=== PATIENT | male | born 1955 | race Caucasian/White ===

== ENCOUNTER 2018-07-01 09:54 | Emergency (ER) | payer BC, SELFPAY ==
[2018-07-01 09:55] VITALS: BP 122/86; PULSE 74; RESP 16; TEMP 36.8; O2SAT 92; BMI 31.6
--- NOTE | 2018-07-01 10:09 | RAD_ITS ---
STUDY: X-RAY - LEFT HAND REASON FOR EXAM: Male, 62 years old. Cat bite, swelling and redness. TECHNIQUE: 3 view(s) of the hand. COMPARISON: None. FINDINGS: Normal radiocarpal articulation. Normal distal radioulnar joint. Normal visualized carpal bones. Normal carpal articulations Normal carpometacarpal articulation of the thumb. Normal second through fifth carpometacarpal joints. Normal metacarpi. Normal metacarpophalangeal joint of the thumb. Normal interphalangeal joint of the thumb. Normal proximal and distal phalanges of the thumb. Normal metacarpophalangeal joints of the second through fifth fingers. Normal proximal and distal interphalangeal joints of the second through fifth fingers. Normal phalanges of the second through fifth fingers. There is mild generalized soft tissue swelling. No radiopaque foreign body. No demonstrated fracture. RAD/Hand Min 3 Views IMPRESSION: Mild generalized soft tissue swelling of the left hand. No acute osseous abnormality. Electronically Signed: Júnior Velasco MD at 10:36 EDT , Service support ,
--- NOTE | 2018-07-01 10:12 | ED.DCSUM_ITS ---
- ER Visit Summary Date of Service: 07/01/18 Chief Complaint: Cat bite History of Present Illness: The patient is a 62 M who had a cat bite to the left hand. Happened last night. Today he was in his hand was swollen and red. The cat has been vaccinated. He is unsure of his last tetanus shot. Physical Examination: Vital signs reviewed. Left hand exam reveals a puncture wound on the left dorsal hand. He does have erythema located in the area. He has full range of motion with minimal pain. Test Results: Hand x-ray reveals no foreign bodies Emergency Department Course and Treatment: Patient's tetanus was updated. X- rays were obtained to make sure there is no Tooth that was retained. This was negative. I will send him home on doxycycline due to a penicillin allergy. He will follow-up with his PCP Treatment Plan: [] Disposition: Discharge Impression: Cat bite, left hand This note was generated with [employer] dictation software. It may contain incorrect words, spelling, and punctuation that were not noted in review of the chart prior to signing ED Disposition - Plan for ED Patient: Chief Complaint: Wound Referrals: Tommy Markham MD [Primary Care Provider] -
--- NOTE | 2018-07-01 10:32 | ED.DEP ---
ED Disposition - Plan for ED Patient: Disposition: Home or Assisted Living Chief Complaint: Wound Instructions: ED Bite Cat Prescriptions: Doxycycline Monohydrate 100 mg PO BID #20 cap Referrals: Tommy Markham MD [Primary Care Provider] -
== END 2018-07-01 10:49 | disposition home or self-care (01) ==
PROVIDERS: Emergency Provider Emergency Medicine; Family Provider Family Medicine; PCP Family Medicine
DX: S61.432A Puncture wound without foreign body of left hand, initial encounter (principal); W55.01XA Bitten by cat, initial encounter; Y93.9 Activity, unspecified; Y92.9 Unspecified place or not applicable; Y99.9 Unspecified external cause status; Z88.0 Allergy status to penicillin; Z23 Encounter for immunization; E11.9 Type 2 diabetes mellitus without complications; Z86.73 Personal history of transient ischemic attack (TIA), and cerebral infarction without residual deficits; Z72.0 Tobacco use; G47.33 Obstructive sleep apnea (adult) (pediatric); Z79.4 Long term (current) use of insulin
CPT/HCPCS: 73130; 99282

== ENCOUNTER 2021-01-22 12:30 | Outpatient (RCR) | payer BC, SELFPAY ==
[2021-01-22] MEDS: COVID-19 VACC, MRNA(PFIZER)/PF 30 MCG/0.3 ML SYRINGE IM (18:32)
[2021-02-12] MEDS: COVID-19 VACC, MRNA(PFIZER)/PF 30 MCG/0.3 ML SYRINGE IM (18:09)
== END 2021-01-22 23:59 ==
LOC: IMMUN 12:30
PROVIDERS: PCP Family Medicine; Visit Provider Family Medicine
DX: Z23 Encounter for immunization (principal)
CPT/HCPCS: 0001A; 0002A; 91300

== ENCOUNTER → 2022-09-09 | Outpatient (CLI) | payer MEDICARE, OTHER, SELFPAY ==
--- NOTE | 2022-09-09 11:45 | STRESSREP_ITS ---
Stress Test Report Date: 09/09/2022 Procedure: Exercise tolerance test Indications: Chest pain Consent: Per the patient Procedure: The patient exercised on a Martin protocol for 2 minutes and 19 seconds achieving a peak heart rate of 133 bpm (87% predicted maximal heart rate) with a peak blood pressure 164/74 mmHg and a peak MET capacity of approximately 4.6 MET's. The baseline ECG demonstrated normal sinus rhythm. The peak exercise ECG demonstrated no ischemic change. There were no cardiac dysrhythmias pretest, during exercise, or recovery. The functional capacity was considered subpar, inadequate. The patient had no complaints of chest discomfort during exercise or recovery. The examination was discontinued secondary to target heart rate being achieved and complaints of dyspnea and inability to carry on the treadmill. Impression: 1. Technically adequate (percent predicted maximal heart rate greater than 85%) exercise tolerance test 2. Peak exercise ECG with no ischemic change. 3. Reduced functional capacity. This note was generated with [employer] software. It may contain incorrect words, spelling, and punctuation that were not noted in checking the note before signing.
== END | disposition home or self-care (01) ==
PROVIDERS: PCP Family Medicine; Visit Provider Family Medicine
DX: R06.02 Shortness of breath (principal)
CPT/HCPCS: 93017

== ENCOUNTER → 2023-03-01 | Outpatient (CLI) | payer MEDICARE, OTHER, SELFPAY ==
[2023-03-01 11:23] LABS: Hematocrit 49.7 % (40-54); Hemoglobin 16.2 g/dL (13.0-16.5); Mean Corp Hgb Conc 32.6 g/dL (32-36); Mean Corpuscular Hgb 29.7 pg (27.0-32.0); Mean Platelet Vol. 11.6 fl (6.2-12.0); Platelet Count 301 K/mm3 (150-450); RBC Distribution Width CV 13.1 % (11.6-14.6); RBC Distribution Width SD 43.5 fl (35.1-43.9); Red Blood Count 5.46 M/mm3 (4.6-6.2); White Blood Count 13.1 K/mm3 (4.4-11.0)
[2023-03-01 11:46] LABS: Anion Gap 3 (5-15); BUN 17 mg/dL (7-18); BUN/Creat Ratio 13.1 RATIO (10-20); Calcium,Total 9.1 mg/dL (8.5-10.1); Chloride 104 mmol/L (98-107); EST Glomerular Filtration Rate 58 mL/min (>60); Est Glom Filt Rate - Afr Amer 71 mL/min (>60); Glucose 146 mg/dL (74-106); Potassium 4.3 mmol/L (3.5-5.1); Sodium Level 135 mmol/L (136-145)
== END | disposition home or self-care (01) ==
LOC: PSN 10:47
PROVIDERS: PCP Family Medicine; Referring Provider Otolaryngology; Visit Provider Otolaryngology
DX: H72.01 Central perforation of tympanic membrane, right ear (principal)
CPT/HCPCS: 36415; 80048; 85027; 93005

== ENCOUNTER → 2023-03-31 | Outpatient (CLI) | payer MEDICARE, OTHER, SELFPAY ==
[2023-03-31 12:01] LABS: PSA,Total - Annual Screen 7.76 ng/mL (0.00-4.00)
== END | disposition home or self-care (01) ==
LOC: LAB 10:56
PROVIDERS: PCP Family Medicine; Referring Provider Registered Nurse; Visit Provider Registered Nurse
DX: Z12.5 Encounter for screening for malignant neoplasm of prostate (principal)
CPT/HCPCS: 36415; 84153; G0103

== ENCOUNTER 2023-09-05 19:54 | Observation (INO) | payer MEDICARE, OTHER, SELFPAY ==
[2023-09-05 19:55] VITALS: BP 158/72; PULSE 81; RESP 16; TEMP 36; O2SAT 100; BMI 30.5
--- NOTE | 2023-09-05 20:13 | CT_ITS ---
STUDY: CT BRAIN WITHOUT CONTRAST REASON FOR EXAM: Male, 68 years old. CVA RADIATION DOSAGE (If Supplied By Facility): CTDIvol = ( 44.99 ) mGy, DLP = ( 880.47 ) mGycm TECHNIQUE: Transaxial CT imaging of the brain was performed without administration of intravenous contrast material. Individualized dose optimization techniques were used for this CT. COMPARISON: MRI February 28, 2015. FINDINGS: Normal soft tissue structures. Normal calvarium. There is moderate cerebral atrophy with widening of the extra-axial spaces and ventricular dilatation. There are areas of decreased attenuation within the white matter tracts of the supratentorial brain, consistent with microvascular disease changes. There are lacunar infarcts of the basal ganglia. Normal brainstem. Normal cerebellum. There is no intracranial hemorrhage. There are no findings of an acute ischemic infarction. There are atherosclerotic calcifications. Normal visualized paranasal sinuses. CT/Brain/Head without Contrast IMPRESSION: Chronic involutional changes of the brain. Electronically Signed: Ricardo David MD at 22:05 EDT ,
--- NOTE | 2023-09-05 20:13 | EKG12_ITS ---
Test Reason : NUERO SYMPTOMS Blood Pressure : / mmHG Vent. Rate : 075 BPM Atrial Rate : 075 BPM P-R Int : 166 ms QRS Dur : 068 ms QT Int : 384 ms P-R-T Axes : 058 -12 044 degrees QTc Int : 428 ms Sinus rhythm with Premature atrial complexes Low voltage QRS Borderline ECG When compared with ECG of 01-MAR-2023 10:53, Premature atrial complexes are now Present Confirmed by ELIUD LAMBERT, CHANDRIKA ([id number]), map clerk KHRIS VELEZ ([id number]) on 09/07/2023 2:25:04 PM Referred By: KANE Confirmed By:CHANDRIKA KLINE MD
--- NOTE | 2023-09-05 20:24 | EDS_ITS ---
HPI <Dr. Andrey Hugo MD - Last Filed: 09/05/23 22:47> History of Present Illness Chief Complaint: Neuro S/Sx Informant: patient and spouse/S.O. Narrative Narrative: Patient presents for not being himself. Patient's and the patient thinks this may be is going on for about 10 days. The triage note says left facial droop. However, he has had left facial droop since his stroke 8 years ago. When asked the its worse or different she states she has not noticed it. But she states she lives with him and does not always notice changes like that. He occasionally does have drooling out of the side of his mouth. When asked about slurred speech she states sometimes he just seems out of it and not himself but is not specifically slurred. Patient still has left-sided weakness from his stroke. He walks but slowly. He is supposed to use a cane but oftentimes does not. He evidently did fall about a week ago but it sounds like he was just in a chair on the porch. No injury. They also note that for the last 10 days his sugars have been 300-500 and that is very high for him. He has not had fevers chills coughing congestion. He has no headache. No bowel or bladder dysfunction. No back pain. No rashes. No uri nary symptoms. Patient is actually a pretty good informant. He knows all his meds and the frequency at which he takes them. He is very easy to understand. PFSH <Dr. Andrey Hugo MD - Last Filed: 09/05/23 22:47> [facility] Home Medications insulin glargine 100 unit/mL (3 mL) subcutaneous pen (Lantus Solostar U-100 Insulin) 50 units subcut QHS 02/27/15 [History Last Taken 02/26/15] insulin lispro 100 unit/mL subcutaneous pen (Humalog KwikPen (U-100) Insulin) 17 units subcut TID 02/27/15 [History Last Taken 02/27/15] aspirin 81 mg chewable tablet 81 mg PO DAILY@0800 ##0 03/14/15 [Rx Last Taken Unknown] atorvastatin 40 mg tablet 40 mg PO QHS ##30 03/14/15 [Rx Last Taken Unknown] dulaglutide 3 mg/0.5 mL subcutaneous pen injector (Trulicity) 3 mg subcut .weekly 09/05/23 [History Last Taken Unknown] fluticasone fur. 100 mcg-umeclid 62.5 mcg-vilant 25 mcg inhalat.powder (Trelegy Ellipta) 1 inh inhalation Q24H 09/05/23 [History Last Taken Unknown] omeprazole 20 mg capsule,delayed release 20 mg PO DAILY 09/05/23 [History Last Taken Unknown] tamsulosin 0.4 mg capsule 0.4 mg PO Q24H 09/05/23 [History Last Taken Unknown] venlafaxine 150 mg capsule,extended release 24 hr 150 mg PO DAILY 09/05/23 [History Last Taken Unknown] Allergy/AdvReac Type Severity Reaction Status Date / Time Penicillins Allergy Other Verified 09/05/23 19:55 Social History Smoking Status: Former smoker ROS <Dr. Andrey Hugo MD - Last Filed: 09/05/23 22:47> ROS ED ROS Narrative A complete review of systems was performed and is negative except as documented in the history of present illness. Some specific details below. Constitutional: No recent fevers or chills. No rigors. Patient does not feel ill. But his states that he is just not himself. EYE: No discharge, visual complaints, or pain. No visual field cut. ENT: No difficulty swallowing. No swelling. No sinus pressure or pain. No nasal discharge. No change in hearing. No ear pain. He does complain of a dry mouth. His states he does not drink much fluid. CV: No chest pain, pressure or aching. No palpitations or irregular beats. Patient has not been presyncopal or syncopal. Respiratory: No trouble breathing. No cough. No wheezing. No sputum production. No pain with breathing. GI: No abdominal pain. No nausea vomiting diarrhea. No blood in stool. : No frequency dysuria or hematuria. Musculoskeletal: No recent trauma. He fell but evidently did not hurt himself. No pains. No swelling. Skin: No rash. Nondiaphoretic. Neuro: No new focal weakness or numbness. Please see history of present illness also. Endocrine: No polyuria or polydipsia. EXAM <Dr. Andrey Hugo MD - Last Filed: 09/05/23 22:47> Physical Exam Narrative Exam Narrative: CONSTITUTIONAL: Patient is nontoxic in appearance. The patient looks comfortable. Work of breathing looks normal. He is wide awake alert and carries on a good conversation. HEENT: No notable trauma. Mucous membranes do look mildly dry. No sinus tenderness. He does have some left-sided weakness. He evidently has this chronically. But even the cannot say for sure if its worse or different. EYES: No conjunctival injection. No proptosis. No pain with range of motion. No pallor. I get no visual field deficit on confrontation. NECK: No meningismus. No JVD. CARDIOVASCULAR: Regular rate. Regular rhythm. No notable murmur. No JVD. RESPIRATORY: No respiratory distress. Breathing is unlabored. No wheezes. No rhonchi. No rales. No pain with a deep breath. Saturations are normal at 100% on room air showing no hypoxia GASTROINTESTINAL: Not distended. Bowel sounds are normal. No tenderness. No guarding. No rebound. No palpable mass. No bruit. GENITOURINARY: No tenderness over the bladder. No CVA tenderness. MUSCULOSKELETAL: Atraumatic. No peripheral edema. NEUROLOGICAL: Patient is alert and oriented. Patient does have some left-sided facial droop. But arm and leg strength actually is equal and he does not get any points on stroke scale for arms or legs. Sensory exam is normal. He is not confused. He is ANO x3. He knows his medicines well. His speech seems clear to me. There is no aphasia either receptive or expressive. Occasionally he has had very slight slurring of a word but it is not all the words. And it does not in any way alter my ability to understand him. It seems more consistent with the amount of the left-sided facial weakness that he has. NIH Stroke scale is 2. He loses 1 for very mild facial droop on the left. He loses 1 for very mild occasional subtle dysarthria. SKIN: No noted rashes. No diaphoresis. No vesicles noted. No notable pallor. PSYCHIATRIC: Patient is calm. Mood is appropriate. Const Vital Signs: 09/05/23 19:55 Temperature 96.8 F L Temperature Source Temporal Pulse Rate 81 Respiratory Rate 16 Blood Pressure 158/72 H Blood Pressure Mean 100 Pulse Ox 100 <Dr. Jamal Michele DO - Last Filed: 09/05/23 23:52> Physical Exam Const Vital Signs: 09/05/23 19:55 Temperature 96.8 F L Temperature Source Temporal Pulse Rate 81 Respiratory Rate 16 Blood Pressure 158/72 H Blood Pressure Mean 100 Pulse Ox 100 MDM <Dr. Andrey Hugo MD - Last Filed: 09/05/23 22:47> [facility] Narrative Medical decision making narrative: Patient CBC is normal including white count hemoglobin and platelets. Patient's electrolytes are overall normal. Glucose is actually well controlled at this time at 107. He has had high glucoses at home but were not seeing that now. I am wondering if his meter may be off. This could actually be promoting excessive insulin use causing problems. My independent interpretation the patient's CT of the head without contrast shows no sign of bleeding or mass. Final reading is pending. Final CT reading shows chronic changes. I discussed options with the patient and . They vacillate [id number] between patient being at baseline and having some worsening symptoms. He had what sounds like a mechanical fall getting up out of a chair 10 days ago. They have been getting high blood sugars all week. They have been giving a little bit more subcu insulin at time. But our blood sugar here is 107 the states it has not been that low in a long time. 1 possibility is that their meter might be reading high and he is dropping low on sugars now and then contributing to symptoms. But this patient also has risks of stroke as he is already had a stroke. I now also find out that he has been off his aspirin for 3 months. He stopped that when he had a little procedure on his ear. But he did not restart it because it causes a lot of bruising. I will have SOC teleneurology consult. We will see if they feel that this is appropriate to bring in for further evaluation acutely or if it is safe to manage outpatient. Lab Data Attestation: I reviewed the patient's lab results. Labs: Laboratory Results - last 24 hr 09/05/23 09/05/23 20:30 22:34 WBC 10.9 RBC 5.16 Hgb 14.8 Hct 45.7 MCV 88.6 MCH 28.7 MCHC 32.4 RDW Std Deviation 40.9 RDW Coeff of [place] 12.6 Plt Count 262 MPV 12.1 H Immature Gran % (Auto) 0.400 Neut % (Auto) 72.9 H Lymph % (Auto) 14.1 L [place] % (Auto) 8.3 Eos % (Auto) 3.6 Baso % (Auto) 0.7 Absolute Neuts (auto) 7.9 H Absolute Lymphs (auto) 1.53 Nucleated RBC % 0 Differential Comment SCANNED Sodium 138 Potassium 3.8 Chloride 104 Carbon Dioxide 26.0 Anion Gap 8 BUN 15 Creatinine 0.98 Estim Creat Clear Calc 80.40 Est GFR (MDRD) Af Amer 98 Est GFR (MDRD) Non-Af 81 BUN/Creatinine Ratio 15.3 Glucose 107 H Calcium 8.8 Urine Color Yellow Urine Clarity Clear Urine pH 5.0 Ur Specific [place] 1.020 Urine Protein 30 H Urine Glucose (UA) Normal Urine Ketones Negative Urine Occult Blood 10 H Urine Nitrite Negative Urine Bilirubin Negative Urine Urobilinogen 1 H Ur Leukocyte Esterase 25 H Urine RBC 0-5 SEEN Urine WBC 0 SEEN Ur Squamous Epith Cells 0 SEEN Urine Bacteria 0 SEEN Urine Mucus 1+ Radiography Diagnostic Testing: Clinical Impression(s) from Imaging Studies Brain CT 09/05/23 20:13 IMPRESSION: Chronic involutional changes of the brain. Electronically Signed: Ricardo David MD at 22:05 EDT , EKG Initial EKG: Comments: My independent interpretation the patient's EKG shows normal sinus rhythm with overall rate of 75. No ectopy no acute ST elevation or depression. LA interval, QRS and QTc are normal. There may be a single PAC or slight respiratory variation. <Dr. Jamal Michele, DO - Last Filed: 09/05/23 23:52> [facility] Narrative Medical decision making narrative: Patient CBC is normal including white count hemoglobin and platelets. Patient's electrolytes are overall normal. Glucose is actually well controlled at this time at 107. He has had high glucoses at home but were not seeing that now. I am wondering if his meter may be off. This could actually be promoting excessive insulin use causing problems. My independent interpretation the patient's CT of the head without contrast shows no sign of bleeding or mass. Final reading is pending. Final CT reading shows chronic changes. I discussed options with the patient and . They vacillate [id number] between patient being at baseline and having some worsening symptoms. He had what sounds like a mechanical fall getting up out of a chair 10 days ago. They have been getting high blood sugars all week. They have been giving a little bit more subcu insulin at time. But our blood sugar here is 107 the states it has not been that low in a long time. 1 possibility is that their meter might be reading high and he is dropping low on sugars now and then contributing to symptoms. But this patient also has risks of stroke as he is already had a stroke. I now also find out that he has been off his aspirin for 3 months. He stopped that when he had a little procedure on his ear. But he did not restart it because it causes a lot of bruising. I will have SOC teleneurology consult. We will see if they feel that this is appropriate to bring in for further evaluation acutely or if it is safe to manage outpatient. Care of patient turned over to me awaiting results of SOC evaluation by neurology. Neurologist evaluated patient and had concern for possibility of stroke and recommended admission for completion of stroke work-up including evaluation of carotids and MRI. I was asked to start patient back on his baby aspirin. Case will be discussed with hospitalist to evaluate patient for admission Lab Data Labs: Laboratory Results - last 24 hr 09/05/23 09/05/23 20:30 22:34 WBC 10.9 RBC 5.16 Hgb 14.8 Hct 45.7 MCV 88.6 MCH 28.7 MCHC 32.4 RDW Std Deviation 40.9 RDW Coeff of [place] 12.6 Plt Count 262 MPV 12.1 H Immature Gran % (Auto) 0.400 Neut % (Auto) 72.9 H Lymph % (Auto) 14.1 L [place] % (Auto) 8.3 Eos % (Auto) 3.6 Baso % (Auto) 0.7 Absolute Neuts (auto) 7.9 H Absolute Lymphs (auto) 1.53 Nucleated RBC % 0 Differential Comment SCANNED Sodium 138 Potassium 3.8 Chloride 104 Carbon Dioxide 26.0 Anion Gap 8 BUN 15 Creatinine 0.98 Estim Creat Clear Calc 80.40 Est GFR (MDRD) Af Amer 98 Est GFR (MDRD) Non-Af 81 BUN/Creatinine Ratio 15.3 Glucose 107 H Calcium 8.8 Urine Color Yellow Urine Clarity Clear Urine pH 5.0 Ur Specific [place] 1.020 Urine Protein 30 H Urine Glucose (UA) Normal Urine Ketones Negative Urine Occult Blood 10 H Urine Nitrite Negative Urine Bilirubin Negative Urine Urobilinogen 1 H Ur Leukocyte Esterase 25 H Urine RBC 0-5 SEEN Urine WBC 0 SEEN Ur Squamous Epith Cells 0 SEEN Urine Bacteria 0 SEEN Urine Mucus 1+ Radiography Diagnostic Testing: Clinical Impression(s) from Imaging Studies Brain CT 09/05/23 20:13 IMPRESSION: Chronic involutional changes of the brain. Electronically Signed: Ricardo David MD at 22:05 EDT , Discharge Plan Triage Chief Complaint: Neuro S/Sx ED Provider: Andrey Hugo Dx/Rx/DC Orders Clinical Impression: Slurred speech, History of stroke, History of diabetes mellitus Prescriptions: No Action insulin lispro [Humalog KwikPen Insulin] 100 UNIT/ML insulin pen 17 units subcut TID Patient Comments: SHORT ACTING INSULIN insulin glargine [Lantus Solostar U-100 Insulin] 100 UNITS/ML insulin pen 50 units subcut QHS Patient Comments: diabetes atorvastatin 40 MG tablet 40 mg PO QHS Qty: 30 0RF aspirin 81 MG tablet,chewable 81 mg PO DAILY@0800 Qty: 0 0RF Trulicity 3 mg/0.5 mL pen injector 3 mg SUBCUT .weekly Trelegy Ellipta 100-62.5-25 mcg blister with device 1 inh INHALATION Q24H omeprazole 20 mg capsule,delayed release(DR/EC) 20 mg PO DAILY tamsulosin 0.4 mg capsule 0.4 mg PO Q24H venlafaxine 150 mg capsule,extended release 24hr 150 mg PO DAILY Primary Care Provider: Tommy Markham Referrals: Tommy Markham MD [Primary Care Provider] - Disposition Disposition: Acute Care Hospital [facility]
[2023-09-05] MEDS: 0.9% Normal Saline (500mL Bag) 500 ML 1000 ML IV (20:41)
[2023-09-05 20:42] LABS: Absolute Lymphocyte Count 1.53 X10^3/uL (0.83-4.51); Absolute Neutrophil Count 7.9 X10^3/uL (2.0-7.7); Basophil# 0.08 X10^3/uL; Basophil% 0.7 % (0-1); Eosinophil# 0.39 X10^3/uL; Eosinophils% 3.6 % (0-5); Hematocrit 45.7 % (40-54); Hemoglobin 14.8 g/dL (13.0-16.5); Lymphocyte # 1.53 X10^3/ul (0.83-4.51); Lymphocyte % 14.1 % (19-41); Mean Corp Hgb Conc 32.4 g/dL (32-36); Mean Corpuscular Hgb 28.7 pg (27.0-32.0); Mean Corpuscular Volume 88.6 fL (80-94); Mean Platelet Vol. 12.1 fl (6.2-12.0); Monocyte% 8.3 % (0-10); NRBC Flagged by Analyzer 0 % (0-5); Neutrophil # 7.94 X10^3/uL (2.7-7.7); Neutrophil % 72.9 % (47-70); POSITIVE MORPHOLOGY YES; Platelet Count 262 K/mm3 (150-450); RBC Distribution Width CV 12.6 % (11.6-14.6); RBC Distribution Width SD 40.9 fl (35.1-43.9); Red Blood Count 5.16 M/mm3 (4.6-6.2); White Blood Count 10.9 K/mm3 (4.4-11.0)
[2023-09-05 20:44] VITALS: BMI 30.7
[2023-09-05 20:52] LABS: Differential Indicated SCAN CRITERIA MET
[2023-09-05 20:56] LABS: Anion Gap 8 (5-15); BUN 15 mg/dL (7-18); BUN/Creat Ratio 15.3 RATIO (10-20); Calcium,Total 8.8 mg/dL (8.5-10.1); Chloride 104 mmol/L (98-107); Creatinine, Serum 0.98 mg/dL (0.70-1.30); EST Glomerular Filtration Rate 81 mL/min (>60); Est Glom Filt Rate - Afr Amer 98 mL/min (>60); Glucose 107 mg/dL (74-106); Potassium 3.8 mmol/L (3.5-5.1); Sodium Level 138 mmol/L (136-145)
[2023-09-05 21:21] LABS: Differential Comment SCANNED
[2023-09-05 22:39] LABS: Bacteria 0 SEEN /hpf (None Seen); Squamous Epithelial Cells - UA 0 SEEN /hpf (0-5); White Blood Cells 0 SEEN /hpf (0-5)
[2023-09-05 22:43] LABS: Color, Urine Yellow (Yellow); Glucose, Dipstick Normal (Normal); Ketone-Dipstick Negative (Negative); Leukocyte Esterase-Dipstick 25 /ul (Negative); Nitrite-Dipstick Negative (Negative); Occult Blood-Urine 10 /ul (Negative); Protein-Dipstick 30 mg/dl (Negative); Urine Bilirubin Dipstick Negative (Negative); Urine Clarity Clear (Clear); Urine Urobilinogen 1 mg/dl (Normal)
[2023-09-05 22:51] LABS: Red Blood Cells-Urine 0-5 SEEN /hpf (0-5)
[2023-09-05 22:52] LABS: Mucous, Urine 1+ /hpf (<or=2+)
[2023-09-06] VITALS (12 sets, daily range): BP systolic 131–171; BP diastolic 61–95; PULSE 70–87; RESP 16–20; TEMP 36.3–36.7; O2SAT 92–96; BMI 31.1
[2023-09-06] MEDS: Aspirin 81 MG TAB.CHEW PO ×2 (00:34→07:58)
--- NOTE | 2023-09-06 00:53 | HP.PCM.HOS_ITS ---
[facility] - General General Date of Admission: 09/06/23 Date of Service: 09/06/23 Chief Complaint: Left-sided drooling and drooping HPI Narrative OLGA RODRIGUEZ, is a 68 M with a significant history of diabetes mellitus; BPH and previous CVA who presents to the emergency department with left-sided drooling and drooping that has been going on for about 10 days. Reportedly patient saw his PCP at about 7 PM on the day of presentation and his PCP advised him to come to the emergency department to be evaluated. Patient reports no new symptoms of left extremities weakness but only above symptoms described. Patient was evaluated by stroke neurologist at the emergency department and recommendation was for patient to stay at the hospital for a complete CVA work- up. Of note patient rightly stopped taking his aspirin before a surgical procedure involving his right ear. Patient forgot to resume taking his aspirin after the procedure was completed. Upon stroke tele-neurologist evaluation recommendation was for patient to resume taking his aspirin. [facility] Medical History (Updated 09/06/23 @ 08:[address] Kirt Kemp MD) History of diabetes mellitus History of stroke Home Medications insulin glargine 100 unit/mL (3 mL) subcutaneous pen (Lantus Solostar U-100 Insulin) 50 units subcut QHS 02/27/15 [History Last Taken 02/26/15] insulin lispro 100 unit/mL subcutaneous pen (Humalog KwikPen (U-100) Insulin) 17 units subcut TID 02/27/15 [History Last Taken 02/27/15] aspirin 81 mg chewable tablet 81 mg PO DAILY@0800 ##0 03/14/15 [Rx Last Taken Unknown] dulaglutide 3 mg/0.5 mL subcutaneous pen injector (Trulicity) 3 mg subcut .georgina benjamin 09/05/23 [History Last Taken Unknown] fluticasone fur. 100 mcg-umeclid 62.5 mcg-vilant 25 mcg inhalat.powder (Trelegy Ellipta) 1 inh inhalation Q24H 09/05/23 [History Last Taken Unknown] omeprazole 20 mg capsule,delayed release 20 mg PO DAILY 09/05/23 [History Last Taken Unknown] tamsulosin 0.4 mg capsule 0.4 mg PO BID 09/05/23 [History Last Taken Unknown] venlafaxine 150 mg capsule,extended release 24 hr 150 mg PO DAILY 09/05/23 [History Last Taken Unknown] atorvastatin 40 mg tablet 80 mg PO QHS 09/06/23 [History Last Taken Unknown] Allergy/AdvReac Type Severity Reaction Status Date / Time Penicillins Allergy Other Verified 09/05/23 19:55 Family History Other Alzheimer disease Breast cancer Thyroid cancer Surgical History History of ear surgery Social History Smoking Status: Smoker, status unknown tobacco type: cigarettes ROS ROS Narrative Pertinent positives and pertinent negatives as noted in HPI. All other systems were reviewed and are negative Vital Signs Vital Signs Vital Signs: 09/05/23 19:55 Temperature 96.8 F L Temperature Source Temporal Pulse Rate 81 Respiratory Rate 16 Blood Pressure 158/72 H Blood Pressure Mean 100 Pulse Ox 100 Weight Weight: 105.5 kg Body Mass Index (BMI) 30.7 Physical Exam Narrative Physical exam: General: Well-nourished, well-developed. Head: Normocephalic, atraumatic, no tenderness Eyes: Vision is grossly intact. EOMI ENT, no trauma, moist mucous membranes, no rhinorrhea Neck: Nontender, No thyromegaly. CVS: Regular rate and rhythm. S1-S2 present. No murmur, gallop or rub. Respiratory : clear to auscultation bilaterally, chest wall nontender Abdomen: Soft, nontender, nondistended, normal bowel sounds, no masses : Deferred Back: Nontender, no CVA tenderness, no midline spinal tenderness, deformities, step-offs Extremities: Strength in left upper extremity 4 out of 5. Strength in right upper extremity 5 out of 5. Strength in bilateral lower extremities 5 out of 5. Skin: Normal color, no trauma, abrasions Neuro: Alert, oriented, cranial nerves II through XII grossly intact. No dysmetria with finger to nose test; or wyrd-ye-[id number] test. Psychiatry: Normal mood. Normal affect. Not depressed. Not anxious. Results Lab / Micro Data 09/05/23 20:30 09/05/23 20:30 Labs: Laboratory Results - last 24 hr 09/05/23 20:30: WBC 10.9, RBC 5.16, Hgb 14.8, Hct 45.7, MCV 88.6, MCH 28.7, MCHC 32.4, RDW Std Deviation 40.9, RDW Coeff of Shoshana 12.6, Plt Count 262, MPV 12.1 H, Immature Gran % (Auto) 0.400, Neut % (Auto) 72.9 H, Lymph % (Auto) 14.1 L, [place] % (Auto) 8.3, Eos % (Auto) 3.6, Baso % (Auto) 0.7, Absolute Neuts (auto) 7.9 H, Absolute Lymphs (auto) 1.53, Nucleated RBC % 0, Differential Comment SCANNED, Sodium 138, Potassium 3.8, Chloride 104, Carbon Dioxide 26.0, Anion Gap 8, BUN 15, Creatinine 0.98, Estim Creat Clear Calc 80.40, Est GFR (MDRD) Af Amer 98, Est GFR (MDRD) Non-Af 81, BUN/Creatinine Ratio 15.3, Glucose 107 H, Calcium 8.8 09/05/23 22:34: Urine Color Yellow, Urine Clarity Clear, Urine pH 5.0, Ur Specific [place] 1.020, Urine Protein 30 H, Urine Glucose (UA) Normal, Urine Ketones Negative, Urine Occult Blood 10 H, Urine Nitrite Negative, Urine Bilirubin Negative, Urine Urobilinogen 1 H, Ur Leukocyte Esterase 25 H, Urine RBC 0-5 SEEN, Urine WBC 0 SEEN, Ur Squamous Epith Cells 0 SEEN, Urine Bacteria 0 SEEN, Urine Mucus 1+ Radiology Impression Brain CT 09/05/23 20:13 IMPRESSION: Chronic involutional changes of the brain. Electronically Signed: Ricardo David MD at 22:05 EDT , Assessment & Plan Assessment/Plan (1) Stroke-like symptoms: (2) History of diabetes mellitus: (3) Slurred speech: (4) History of stroke: PLAN: Plan Strokelike symptoms Evaluated by telemetry neurologist. Per telemetry neurologist impression symptoms may be due to new right-sided ischemic stroke versus recrudescence of prior stroke symptoms. Serial NINDS NIH Scale ordered Impression of head CT by radiology: Chronic ischemic changes. Upon my personal head CT image independent interpretation : I agree with radiologist interpretation Lipid profile and A1c ordered. Physical therapy, occupational therapy and speech therapy to work with patient. N.p.o. until bedside swallow eval. Resume home Daily aspirin. Continue high intensity statin Outside window for permissive hypertension. MRI/MRA of head; brain; and neck. Echocardiogram ordered. Diabetes mellitus Blood glucose is within goal. Home basal and prandial insulin. Accu-Chek with correction scale insulin ordered. Elevated Blood pressure without diagnosis of hypertension Trend blood pressures. Asthma/COPD Stable Inhalers continued. DVT prophylaxis: Subcutaneous Lovenox ordered. Time spent in the patient's overall evaluation,decision-making process, review of diagnostic data, adjustment of management, discussion with other providers, nursing and ancillary staff involved in patient's care documentation, 75 minutes. Charges/Coding Visit Charges Inpatient E&M: 53729 Init Hosp L3
--- NOTE | 2023-09-06 02:16 | ECHOCS_ITS ---
Reason For Study: TIA/CVA Procedure This was a 2D Doppler, Color Flow transthoracic echocardiogram. The study was technically difficult. Due to body habitus. Contrast injection was performed. Exam performed portable in patient room. Left Ventricle Normal LV size. The estimated ejection fraction is 70 %. No evidence for diastolic dysfunction. No regional wall motion abnormalities noted. Right Ventricle Normal RV size. Normal systolic function. Atria Normal left atrium. Normal right atrium. No doppler evidence for ASD. Mitral Valve There is no mitral valve stenosis. No mitral valve insufficiency. Tricuspid Valve There is no tricuspid stenosis. Unable to estimate RV systolic pressure due to inadequate jet, pulmonary artery pressure probably normal. Aortic Valve Trisinus/trileaflet aortic valve. There is no aortic stenosis. No aortic valve insufficiency. Pulmonic Valve There is no pulmonic valvular stenosis. No pulmonic valve insufficiency. Great Vessels Normal aortic root. Pericardium/Pleural No pericardial effusion. Medication Diluted definity 3.0ml given slow IV push to enhance endocardial definition. MMode/2D Measurements & Calculations LVIDd: 5.1 cm IVSd: 1.0 cm Ao root diam: 3.8 cm LVIDs: 3.1 cm LVPWd: 1.1 cm RVDd: 2.8 cm FS: 38.9 % LAV(MOD-bp): 46.3 ml LVAd ap4: 27.1 cm2 LVAd ap2: 27.3 cm2 LAV(MOD-bp) Indexed: 20.2 ml/m2 LVLd ap4: 8.0 cm LVLd ap2: 8.2 cm LAV(MOD-sp2): 49.3 ml EDV(MOD-sp4): 75.5 ml EDV(MOD-sp2): 76.0 ml LAV(MOD-sp4): 43.1 ml EDV(sp4-el): 77.7 ml EDV(sp2-el): 76.8 ml LVAs ap4: 17.2 cm2 LVAs ap2: 16.2 cm2 LVLs ap4: 8.3 cm LVLs ap2: 7.5 cm ESV(MOD-sp4): 31.4 ml ESV(MOD-sp2): 30.4 ml ESV(sp4-el): 30.4 ml ESV(sp2-el): 29.7 ml EF(MOD-sp4): 58.4 % EF(MOD-sp2): 60.0 % EF(sp4-el): 60.9 % SV(MOD-sp4): 44.0 ml SV(MOD-sp2): 45.6 ml SV(sp4-el): 47.3 ml LA A4 area: 15.7 cm2 LA dimension(2D): 4.1 cm RA A4 area: 15.4 cm2 Time Measurements MV dec time: 0.23 sec Doppler Measurements & Calculations MV E max thomas: 68.3 cm/sec Lat Peak E' Thomas: 7.8 cm/sec Med Peak E' Thomas: 6.3 cm/sec MV A max thomas: 102.7 cm/sec E/E' lat: 8.8 E/E' med: 10.9 MV E/A: 0.66 Ao V2 max: 115.6 cm/sec LV V1 max: 89.7 cm/sec PA V2 max: 145.2 cm/sec Ao max P.4 mmHg LV V1 max P.2 mmHg PA V2 mean: 108.7 cm/sec Ao V2 mean: 85.4 cm/sec LV V1 mean P.0 mmHg Ao mean P.2 mmHg LV V1 mean: 67.8 cm/sec Ao V2 VTI: 22.5 cm LV V1 VTI: 22.4 cm AV (velocity ratio): 1.00 ECHO/Echo Complete W/ Contrast Interpretation Summary The estimated ejection fraction is 70 %. No evidence for diastolic dysfunction. Ordering Physician: Kirt Kemp Referring Physician: Tommy Markham Performed By: Sylvia Hood, AIDEN, RVT
[2023-09-06] MEDS: Insulin Lispro 100 UNIT/ML INSULN.PEN SC ×4 (06:27→22:14)
[2023-09-06] MEDS: Ipratropium/Albuterol Sulfate 3 ML AMPUL.NEB INHALATION ×3 (06:56→19:45)
[2023-09-06] MEDS: Budesonide Respules 0.5 MG/2 ML AMPUL.NEB. INHALATION ×2 (06:56→19:45)
[2023-09-06 07:04] LABS: Bedside Glucose 175 mg/dL (74-106)
[2023-09-06 07:52] LABS: Absolute Lymphocyte Count 1.29 X10^3/uL (0.83-4.51); Absolute Neutrophil Count 8.4 X10^3/uL (2.0-7.7); Basophil# 0.06 X10^3/uL; Basophil% 0.6 % (0-1); Eosinophil# 0.34 X10^3/uL; Eosinophils% 3.2 % (0-5); Hematocrit 44.3 % (40-54); Hemoglobin 14.3 g/dL (13.0-16.5); Lymphocyte # 1.29 X10^3/ul (0.83-4.51); Mean Corp Hgb Conc 32.3 g/dL (32-36); Mean Corpuscular Hgb 28.8 pg (27.0-32.0); Mean Corpuscular Volume 89.3 fL (80-94); Monocyte# 0.65 X10^3/uL; NRBC Flagged by Analyzer 0 % (0-5); Neutrophil # 8.42 X10^3/uL (2.7-7.7); Neutrophil % 77.9 % (47-70); Platelet Count 246 K/mm3 (150-450); RBC Distribution Width CV 12.6 % (11.6-14.6); RBC Distribution Width SD 41.1 fl (35.1-43.9); Red Blood Count 4.96 M/mm3 (4.6-6.2); White Blood Count 10.8 K/mm3 (4.4-11.0)
[2023-09-06] MEDS: Venlafaxine XR 150 MG Capsule PO (07:58)
[2023-09-06] MEDS: Tamsulosin HCl 0.4 MG Capsule PO ×2 (07:58→22:15)
[2023-09-06] MEDS: Enoxaparin 40 MG/0.4 ML Syringe SC (07:58)
[2023-09-06] MEDS: Pantoprazole Sodium 20 MG Tablet PO (07:58)
[2023-09-06 08:15] LABS: Anion Gap 6 (5-15); BUN 13 mg/dL (7-18); BUN/Creat Ratio 13.5 RATIO (10-20); Calcium,Total 8.9 mg/dL (8.5-10.1); Chloride 105 mmol/L (98-107); Cholesterol 93 mg/dL (200); Creatinine, Serum 0.96 mg/dL (0.70-1.30); EST Glomerular Filtration Rate 82 mL/min (>60); Est Glom Filt Rate - Afr Amer 100 mL/min (>60); Estimated Creatinine Clearance 79.71 ml/min; Glucose 193 mg/dL (74-106); High Density Lipoprotein 39 mg/dL; Potassium 4.3 mmol/L (3.5-5.1); Sodium Level 138 mmol/L (136-145); Triglycerides 76 mg/dL; Very Low Density Lipoprotein 15 mg/dL (5-40)
--- NOTE | 2023-09-06 09:06 | CT_ITS ---
INDICATION: CVA EXAMINATION: CT BRAIN WITH CONTRAST TECHNIQUE: Noncontrast axial images were obtained of the brain. Subsequently, routine carotid CT angiogram protocol was performed without and with IV contrast. In addition, images were obtained of the [place]. NASCET criteria using the distal ICAs for comparison were used for evaluation of stenoses. 3D reconstructions were reviewed. A radiation dose optimization technique was used for this scan. IV Contrast dosage and agent: 100 cc of Isovue-370 COMPARISON: Noncontrast CT scan of the brain of 09/05/2023. FINDINGS: CTA NECK: AORTIC ARCH AND BRANCHES: Atherosclerotic calcifications of the aortic arch and the origin of the left subclavian artery. RIGHT CCA: Mild eccentric calcification in the right bulb region without evidence of stenosis. RIGHT ICA: No occlusion, significant stenosis or dissection. LEFT CCA: Atherosclerotic calcifications in the left bulb region with less than 50% stenosis. LEFT ICA: Atherosclerotic calcifications of the origin of the left internal carotid artery approximately 60% stenosis. RIGHT VERTEBRAL ARTERY: No occlusion, significant stenosis or dissection. LEFT VERTEBRAL ARTERY: Mild calcifications at its origin without significant stenosis. NECK SOFT TISSUES: Unremarkable. CTA HEAD: --Anterior circulation: ICAs: Atherosclerotic calcifications of the cavernous internal carotid arteries with mild stenosis on the left side. ACAs: No significant stenosis at the visualized segments. ACOM: Present. MCAs: Mild atherosclerotic calcification and minimal narrowing of the right segment. Unremarkable left side. Patent bilateral M2 segments without significant stenosis. --Posterior circulation: PCOMs: Sinclair numbness right posterior communicating artery. Nonvisualization of the left side. engraver rubber: No significant stenosis at the visualized segments. BASILAR ARTERY: No significant stenosis. VERTEBRAL ARTERIES: Patent bilateral vertebral arteries with dominant side. No evidence of intracranial aneurysm or vascular malformation. CT/CTA Head AND Neck W/ Contrast IMPRESSION: 1. Mild atherosclerotic calcifications and minimal narrowing of the right M1 segment. 2. Otherwise no intracranial great vessel stenosis. 3. Atherosclerotic calcifications of the bulb regions bilaterally with approximately 60% stenosis on the left side. 4. Patent bilateral vertebral arteries with dominant left side. Electronically Signed: Gaurang Benítez MD at 9:49 EDT ,
--- NOTE | 2023-09-06 09:24 | MRI_ITS ---
We are attempting to reach an attending provider to discuss findings. An addendum with communication details will be sent when the communication is complete. EXAM: MR HEAD WITHOUT INTRAVENOUS CONTRAST CLINICAL INDICATION: CVA TECHNIQUE: Multiplanar and multisequence MR images of the brain were obtained without intravenous contrast. COMPARISON: MRI brain with and without contrast 02/28/2015. CT head without contrast 09/05/2023. CTA head and neck with contrast 09/06/2023. FINDINGS: BRAIN AND EXTRA-AXIAL SPACES: Small linear diffusion restriction in the right periventricular white matter is also visible on the T2 FLAIR sequence. This is early subacute ischemic infarct. Progression of T2 FLAIR hyperintensity foci in the white matter of both cerebral hemispheres are chronic white matter ischemic changes. No intra- or extra-axial hemorrhage. No intracranial mass or mass effect. Posterior fossa structures are unremarkable. No hydrocephalus. Basal cisterns are patent. SELLA: Unremarkable. Normal sella turcica, pituitary gland, infundibular stalk, optic chiasm and hypothalamus. AUDITORY SYSTEM: Unremarkable. The internal auditory canals are patent. BONES/JOINTS: Unremarkable. No discrete lytic or blastic abnormalities. SINUSES: Unremarkable as visualized. Clear. MASTOID AIR CELLS: Unremarkable as visualized. Clear. ORBITS: Unremarkable as visualized. Both globes, extraocular muscles, optic nerves and retrobulbar fat appear unremarkable. VASCULATURE: Unremarkable as visualized. Normal flow voids in the major intracranial circulation. MRI/Brain without Contrast IMPRESSION: 1. Early subacute linear ischemic infarct in the right periventricular white matter. 2. Progression of chronic white matter ischemic changes in both cerebral hemispheres when compared to 02/28/2015. Electronically Signed: Alfredo Sutton MD at 11:06 EDT ,
--- NOTE | 2023-09-06 10:22 | CASEMGMT ---
Social Work PHQ-9 completed, pt scored a 0, no indications on PHQ-9 of depression at this time. COLLEEN Snow
[2023-09-06 11:32] LABS: Bedside Glucose 293 mg/dL (74-106)
[2023-09-06] MEDS: Clopidogrel Bisulfate 75 MG Tablet PO (13:16)
[2023-09-06 13:28] LABS: Hemoglobin A1c 9.6 % (3.8-5.6)
--- NOTE | 2023-09-06 15:00 | PN_ITS ---
Subjective Subjective Patient seen and examined. He was admitted with a complaint of mouth droop and slurred speech. He says these have essentially improved. He has no other complaints today and review of systems is otherwise negative. Objective Data Objective Data Vital Signs: Vital Signs Temp Pulse Resp BP Pulse Ox O2 Del Method 97.9 F 79 18 148/69 H 92 Room Air 09/06/23 11:41 09/06/23 13:50 09/06/23 13:50 09/06/23 11:41 09/06/23 11:41 09/06/23 11:41 Oxygen Delivery Method Room Air Weight: 230 lb 2.601 oz Body Mass Index (BMI) 31.1 Intake & Output: Intake and Output for Last 24 Hours 09/04/23 09/05/23 09/06/23 23:59 23:59 23:59 Intake Total 500 / 500 240 / 240 Output Total 450 / 450 Balance 500 / 500 -210 / -210 Lab / Micro Data 09/06/23 07:36 09/06/23 07:36 Labs: Laboratory Results - last 24 hr 09/05/23 20:30: WBC 10.9, RBC 5.16, Hgb 14.8, Hct 45.7, MCV 88.6, MCH 28.7, MCHC 32.4, RDW Std Deviation 40.9, RDW Coeff of [place] 12.6, Plt Count 262, MPV 12.1 H, Immature Gran % (Auto) 0.400, Neut % (Auto) 72.9 H, Lymph % (Auto) 14.1 L, [place] % (Auto) 8.3, Eos % (Auto) 3.6, Baso % (Auto) 0.7, Absolute Neuts (auto) 7.9 H, Absolute Lymphs (auto) 1.53, Nucleated RBC % 0, Differential Comment SCANNED, Sodium 138, Potassium 3.8, Chloride 104, Carbon Dioxide 26.0, Anion Gap 8, BUN 15, Creatinine 0.98, Estim Creat Clear Calc 80.40, Est GFR (MDRD) Af Amer 98, Est GFR (MDRD) Non-Af 81, BUN/Creatinine Ratio 15.3, Glucose 107 H, Calcium 8.8 09/05/23 22:34: Urine Color Yellow, Urine Clarity Clear, Urine pH 5.0, Ur Spec ific [place] 1.020, Urine Protein 30 H, Urine Glucose (UA) Normal, Urine Ketones Negative, Urine Occult Blood 10 H, Urine Nitrite Negative, Urine Bilirubin Negative, Urine Urobilinogen 1 H, Ur Leukocyte Esterase 25 H, Urine RBC 0-5 SEEN, Urine WBC 0 SEEN, Ur Squamous Epith Cells 0 SEEN, Urine Bacteria 0 SEEN, Urine Mucus 1+ 09/06/23 06:26: POC Glucose 175 H 09/06/23 07:36: WBC 10.8, RBC 4.96, Hgb 14.3, Hct 44.3, MCV 89.3, MCH 28.8, MCHC 32.3, RDW Std Deviation 41.1, RDW Coeff of [place] 12.6, Plt Count 246, MPV 12.0, Immature Gran % (Auto) 0.300, Neut % (Auto) 77.9 H, Lymph % (Auto) 12.0 L, [place] % (Auto) 6.0, Eos % (Auto) 3.2, Baso % (Auto) 0.6, Absolute Neuts (auto) 8.4 H, Absolute Lymphs (auto) 1.29, Nucleated RBC % 0, Sodium 138, Potassium 4.3, Chloride 105, Carbon Dioxide 27.0, Anion Gap 6, BUN 13, Creatinine 0.96, Estim Creat Clear Calc 79.71, Est GFR (MDRD) Af Amer 100, Est GFR (MDRD) Non-Af 82, BUN/Creatinine Ratio 13.5, Glucose 193 H, Hemoglobin A1c 9.6 H, Calcium 8.9, Triglycerides 76, Cholesterol 93, LDL Cholesterol 39, VLDL Cholesterol 15, HDL Cholesterol 39 L 09/06/23 11:06: POC Glucose 293 H Radiography Diagnostic Testing: Radiology Impression Brain CT 09/05/23 20:13 IMPRESSION: Chronic involutional changes of the brain. Electronically Signed: Ricardo David MD at 22:05 EDT , Head/Neck CTA 09/06/23 09:06 IMPRESSION: 1. Mild atherosclerotic calcifications and minimal narrowing of the right M1 segment. 2. Otherwise no intracranial great vessel stenosis. 3. Atherosclerotic calcifications of the bulb regions bilaterally with approximately 60% stenosis on the left side. 4. Patent bilateral vertebral arteries with dominant left side. Electronically Signed: Gaurang Benítez MD at 9:49 EDT , Brain MRI 09/06/23 09:24 IMPRESSION: 1. Early subacute linear ischemic infarct in the right periventricular white matter. 2. Progression of chronic white matter ischemic changes in both cerebral hemispheres when compared to 02/28/2015. Electronically Signed: Alfredo Sutton MD at 11:06 EDT , ADDENDUM: 09/06/23 1133 IMPRESSION: 1. Early subacute linear ischemic infarct in the right periventricular white matter. 2. Progression of chronic white matter ischemic changes in both cerebral hemispheres when compared to 02/28/2015. N.B. : The above Results were Read Back by Alfredo Sutton MD to Gris Lai RN, and understanding confirmed on 09/06/2023 11:27:03 (ET). Electronically Signed: Alfredo Sutton MD at 11:06 EDT , Physical Exam Const alert, oriented x3 and no apparent distress HEENT normocephalic, head/scalp atraumatic, moist oral mucous membranes and oropharynx normal Eyes PERRL and EOMs intact bilaterally Neck no lymphadenopathy and supple Lymph Lymphatic: no lymphadenopathy noted and no lymphedema noted Cardio regular rate, regular rhythm, S1 normal heart sound, S2 normal heart sound and no murmurs GI normal to inspection, nondistended, normoactive bowel sounds, soft to palpation, non-tender and non-distended Extremity normal capillary refill, no clubbing, cyanosis or edema and no calf tenderness Skin General Skin Exam: no breakdown Neuro CN's II-XII intact bilaterally, no focal motor deficits, no sensory deficits noted and deep tendon reflexes 2+ bilaterally Neuro Narrative: No visible mouth droop and no slurred speech. Power in all extremities is 5/5. Motor Exam: strength 5/5 throughout and general weakness Psych thought process normal and cooperative Appearance: appropriate Assessment & Plan Assessment/Plan (1) History of stroke: (2) Stroke-like symptoms: (3) Slurred speech: PLAN: Plan #Acute CVA * was admitted with a complaint of stroke like symptoms * concern for recrudescence of prior stroke symptoms vs new stroke * CT of the brain showed no acute intracranial pathology. CTA of the head and neck showed no hemodynamically significant stenosis * MRI of the brain showed early subacute linea ischemic infarct in the right periventricular white matter and progression of chronic white matter ischemic changes in both cerebral hemispheres compared to previous MRI from February 2015. * on aspirin; plavix added on. * on high intensity statin. * 2D echo ordered, read is pending * PT/OT on board. fall precautions. * monitor NIHSS. * #Type 2 diabetes mellitus: * on lantus. ISS. Accuchecks ACHS. * A1c is 9.6. Patient counseled on compliance with this medication. * On dulaglutide and Lantus 50 units nightly. #COPD and asthma: not in exacerbation. Breathing treatment with bronchodilators. DVT prophylaxis: lovenox Charges/Coding Visit Charges Inpatient E&M: 97304 Subs Hosp L2
[2023-09-06 17:17] LABS: Bedside Glucose 267 mg/dL (74-106)
[2023-09-06] MEDS: Atorvastatin Calcium 80 MG Tablet PO (22:15)
[2023-09-07 00:09] LABS: Bedside Glucose 250 mg/dL (74-106)
[2023-09-07 02:02] VITALS: BP 143/59; PULSE 71; RESP 18; TEMP 36.3; O2SAT 93
[2023-09-07 04:34] VITALS: BMI 31.1
--- NOTE | 2023-09-07 04:34 | CPS ---
Pt on sleep lab machine. AutoPap 6-22cm [place]
[2023-09-07 05:30] VITALS: BP 138/75; PULSE 73; RESP 16; TEMP 36.3; O2SAT 92
[2023-09-07 06:01] LABS: Absolute Lymphocyte Count 1.35 X10^3/uL (0.83-4.51); Absolute Neutrophil Count 6.8 X10^3/uL (2.0-7.7); Basophil# 0.06 X10^3/uL; Basophil% 0.6 % (0-1); Eosinophil# 0.31 X10^3/uL; Eosinophils% 3.3 % (0-5); Hematocrit 43.9 % (40-54); Hemoglobin 13.8 g/dL (13.0-16.5); Lymphocyte # 1.35 X10^3/ul (0.83-4.51); Lymphocyte % 14.5 % (19-41); Mean Corp Hgb Conc 31.4 g/dL (32-36); Mean Corpuscular Hgb 28.2 pg (27.0-32.0); Mean Corpuscular Volume 89.8 fL (80-94); Monocyte# 0.77 X10^3/uL; Monocyte% 8.2 % (0-10); NRBC Flagged by Analyzer 0 % (0-5); Neutrophil # 6.79 X10^3/uL (2.7-7.7); Neutrophil % 72.8 % (47-70); Platelet Count 258 K/mm3 (150-450); RBC Distribution Width CV 12.6 % (11.6-14.6); RBC Distribution Width SD 41.8 fl (35.1-43.9); Red Blood Count 4.89 M/mm3 (4.6-6.2); White Blood Count 9.3 K/mm3 (4.4-11.0)
[2023-09-07 06:25] LABS: Anion Gap 3 (5-15); BUN 13 mg/dL (7-18); BUN/Creat Ratio 10.2 RATIO (10-20); Calcium,Total 8.9 mg/dL (8.5-10.1); Chloride 103 mmol/L (98-107); Creatinine, Serum 1.28 mg/dL (0.70-1.30); EST Glomerular Filtration Rate 59 mL/min (>60); Est Glom Filt Rate - Afr Amer 72 mL/min (>60); Estimated Creatinine Clearance 59.78 ml/min; Glucose 232 mg/dL (74-106); Potassium 4.4 mmol/L (3.5-5.1); Sodium Level 137 mmol/L (136-145)
[2023-09-07] MEDS: Insulin Lispro 100 UNIT/ML INSULN.PEN SC ×2 (06:30→11:07)
[2023-09-07 07:00] LABS: Bedside Glucose 222 mg/dL (74-106)
[2023-09-07] MEDS: Budesonide Respules 0.5 MG/2 ML AMPUL.NEB. INHALATION (07:07)
[2023-09-07] MEDS: Ipratropium/Albuterol Sulfate 3 ML AMPUL.NEB INHALATION (07:08)
[2023-09-07 07:09] VITALS: PULSE 70; RESP 17; O2SAT 93
[2023-09-07 09:30] VITALS: BP 127/65; PULSE 84; RESP 18; TEMP 36.5; O2SAT 94
[2023-09-07 09:35] VITALS: O2SAT 94
[2023-09-07] MEDS: Tamsulosin HCl 0.4 MG Capsule PO (09:38)
[2023-09-07] MEDS: Pantoprazole Sodium 20 MG Tablet PO (09:38)
[2023-09-07] MEDS: Venlafaxine XR 150 MG Capsule PO (09:38)
[2023-09-07] MEDS: Aspirin 81 MG TAB.CHEW PO (09:38)
[2023-09-07] MEDS: Clopidogrel Bisulfate 75 MG Tablet PO (09:38)
[2023-09-07] MEDS: Enoxaparin 40 MG/0.4 ML Syringe SC (09:39)
--- NOTE | 2023-09-07 10:31 | CASEMGMT ---
Met with patient to complete ANDERSON form. ANDERSON form explained to patient who voiced understanding and signed form. Original form placed in pt?s chart and copy provided to patient. Nuria Parrish, Discharge Planning Asst.
[2023-09-07 11:24] VITALS: BMI 31.1
[2023-09-07 11:33] LABS: Bedside Glucose 316 mg/dL (74-106)
--- NOTE | 2023-09-07 11:57 | DS.PCM_ITS ---
Providers Date of Admission: 09/06/23 Date of Discharge: 09/07/23 Primary Care Physician: Dr. Tommy Markham MD Reason For Visit: CVA Diagnosis Discharge Diagnosis (1) History of stroke: Status: Acute Code(s): Z86.73 - Personal history of transient ischemic attack (TIA), and cerebral infarction without residual deficits (2) Stroke-like symptoms: Status: Acute Code(s): R29.90 - Unspecified symptoms and signs involving the nervous system (3) Slurred speech: Status: Acute Code(s): R47.81 - Slurred speech Plan #Acute CVA * was admitted with a complaint of stroke like symptoms * concern for recrudescence of prior stroke symptoms vs new stroke * CT of the brain showed no acute intracranial pathology. CTA of the head and neck showed no hemodynamically significant stenosis * MRI of the brain showed early subacute linea ischemic infarct in the right periventricular white matter and progression of chronic white matter ischemic changes in both cerebral hemispheres compared to previous MRI from February 2015. * on aspirin; plavix added on. * on high intensity statin. * 2D echo ordered, read is pending * PT/OT on board. fall precautions. * monitor NIHSS. * #Type 2 diabetes mellitus: * on lantus. ISS. Accuchecks ACHS. * A1c is 9.6. Patient counseled on compliance with this medication. * On dulaglutide and Lantus 50 units nightly. #COPD and asthma: not in exacerbation. Breathing treatment with bronchodilators. DVT prophylaxis: lovenox Medications at Discharge Home Medications insulin glargine 100 unit/mL (3 mL) subcutaneous pen (Lantus Solostar U-100 Insulin) 50 units subcut QHS diabetes 02/27/15 insulin lispro 100 unit/mL subcutaneous pen (Humalog KwikPen (U-100) Insulin) 17 units subcut TID diabetes 02/27/15 aspirin 81 mg chewable tablet 81 mg PO DAILY@[address] [facility] ##0 03/14/15 dulaglutide 3 mg/0.5 mL subcutaneous pen injector (Trulicity) 3 mg subcut .weekly diabetes 09/05/23 fluticasone fur. 100 mcg-umeclid 62.5 mcg-vilant 25 mcg inhalat.powder (Trelegy Ellipta) 1 inh inhalation Q24H breathing 09/05/23 omeprazole 20 mg capsule,delayed release 20 mg PO DAILY reflux 09/05/23 tamsulosin 0.4 mg capsule 0.4 mg PO BID prostate 09/05/23 venlafaxine 150 mg capsule,extended release 24 hr 150 mg PO DAILY mental health 09/05/23 atorvastatin 80 mg tablet 80 mg PO QHS #30 tabs 09/07/23 metformin 500 mg tablet 500 mg PO BID #60 tabs 09/07/23 Hospital Course Operations None Procedures 2-D Echocardiogram Summary of Care Provided Minutes Spent on Discharge: 50 Hospital Course: Patient is a 68-year-old male with a past medical history as outlined was admitted through the ED on 06/06/2023 with a complaint of left-sided drooling and mild droop which have been going on for about 10 days. Patient had not really done anything about the symptoms until he saw his PCP on the day of presentation. His PCP advised him to come to the ED to be evaluated for stroke. He denied any weakness in his extremities and denied any sensory deficits. Review of systems otherwise negative. In the ED was evaluated by [facility] neurology. Patient had stopped taking his aspirin several months prior to admission. He had apparently had stopped taking it before a surgical procedure of his right ear. However afterwards he did not resume taking his aspirin. He was admitted to rule out a stroke. CT of the brain showed chronic involutional changes and no acute intracranial pathology. He had an MRI of the brain which showed an early subacute linear ischemic infarct in the right periventricular white matter and progression of chronic white matter ischemic changes in both cerebral hemispheres compared to previous MRI. CTA of the head and neck showd mild atherosclerotic calcifications and minimal narrowing of the right M1 segment as well as ~ 60% stenosis on the left side. He was on aspirin. Plavix was initially added on. He was also placed on high intensity statin. Neurology however reviewed him and recommended continuing on just the aspirin as patient had been off of his aspirin for several months which likely precipitated the new stroke. His A1c was 9.6. Patient was counseled strongly about compliance with his long-acting insulin. Metformin was also added on for patient. Patient did well with physical therapy. He was discharged on 09/07/2023. He is follow-up with his primary care doctor and was referred to neurology on outpatient basis. Again patient was counseled very strongly about compliance with his aspirin. He was also referred to vascular surgery on outpatient basis o/a of CTA surgery findings. Patient seen and examined prior to discharge. He had no active complaints and had an uneventful night. Review of systems otherwise negative. Labs and vitals reviewed. Home medication reviewed and reconciled. Physical Exam Const alert, oriented x3 and no apparent distress General Appearance: cooperative, comfortable and well kempt HEENT normocephalic, head/scalp atraumatic, hearing grossly normal bilaterally, moist oral mucous membranes and oropharynx normal Mouth: oral and palatal mucosa normal Eyes PERRL and EOMs intact bilaterally Neck no lymphadenopathy and supple Lymph Lymphatic: no lymphadenopathy noted and no lymphedema noted Resp normal respiratory effort, no retractions, no use of accessory muscles and clear to auscultation bilaterally Cardio regular rate, regular rhythm, S1 normal heart sound, S2 normal heart sound and no murmurs GI normal to inspection, nondistended, normoactive bowel sounds, soft to palpation, non-tender and non-distended Extremity normal to inspection, full ROM, normal capillary refill, no clubbing, cyanosis or edema and no calf tenderness Skin no rashes or lesions noted and no wounds General Skin Exam: no breakdown Neuro oriented x3, CN's II-XII intact bilaterally, moves all extremities, no focal motor deficits, no sensory deficits noted and deep tendon reflexes 2+ bilaterally Neuro Narrative: No visible mouth droop and no slurred speech. Power in all extremities is 5/5. Sensorium / Orientation: awake Motor Exam: strength 5/5 throughout and general weakness Psych thought process normal and cooperative Appearance: appropriate Weight / BMI Weight Weight: 230 lb 2.601 oz Body Mass Index (BMI) 31.1 ABG / Lab / Microbiology Data 09/07/23 05:43 09/07/23 05:43 Laboratory: Laboratory Results - last 24 hr 09/06/23 07:36: Hemoglobin A1c 9.6 H 09/06/23 16:15: POC Glucose 267 H 09/06/23 22:12: POC Glucose 250 H 09/07/23 05:43: WBC 9.3, RBC 4.89, Hgb 13.8, Hct 43.9, MCV 89.8, MCH 28.2, MCHC 31.4 L, RDW Std Deviation 41.8, RDW Coeff of Shoshana 12.6, Plt Count 258, MPV 12.0, Immature Gran % (Auto) 0.600, Neut % (Auto) 72.8 H, Lymph % (Auto) 14.5 L, [place] % (Auto) 8.2, Eos % (Auto) 3.3, Baso % (Auto) 0.6, Absolute Neuts (auto) 6.8, Absolute Lymphs (auto) 1.35, Nucleated RBC % 0, Sodium 137, Potassium 4.4, Chloride 103, Carbon Dioxide 31.0, Anion Gap 3 L, BUN 13, Creatinine 1.28, Estim Creat Clear Calc 59.78, Est GFR (MDRD) Af Amer 72, Est GFR (MDRD) Non-Af 59 L, BUN/Creatinine Ratio 10.2, Glucose 232 H, Calcium 8.9 09/07/23 06:29: POC Glucose 222 H 09/07/23 11:06: POC Glucose 316 H Radiography Diagnostic Testing: Radiology Impression Echocardiogram 09/06/23 02:16 Interpretation Summary The estimated ejection fraction is 70 %. No evidence for diastolic dysfunction. Ordering Physician: Kirt Kemp Referring Physician: Tommy Markham Performed By: Sylvia Hood, RDKENJI, RVT D/C Instructions Discharge Diet: Low fat / Low cholesterol and 1800 Calorie Control Diet Discharge Activity: Return to Normal Activity Weight Bearing Status: Weight bearing as tolerated Call your doctor if you observe: Fever of 101 or Higher, Shortness of breath, Swelling in the ankles, Chest pain and Calf discomfort Meaningful Use Info Meaningful Use Diagnoses (Choose all that apply): Ischemic CVA CVA Therapy Assessed for PT,OT and/or ST?: Yes Ischemic Stroke Antithrombotic order at d/c?: Yes Dx of Atrial fib/flutter?: No Anticoagulant at discharge?: No Reason anticoagulant not ordered: Treatment not Indicated Statins at discharge?: Yes Primary Dx Acute Ischemic CVA?: Yes IV thrombolytic ordered during stay?: No Reason IV thrombolytic not ordered: Treatment not Indicated Discharge Plan Admission Admit Date/Time: 09/06/23 00:55 Primary Reason for Your Visit: acute CVA Attending Provider: Vannesa Pulido Primary Care Provider: Tommy Markham Consulting Providers: Kirt Kemp Instructions Patient Instructions: Booklet - Understanding Stroke Discharge Orders/Prescriptions Prescriptions: New atorvastatin 80 mg Tablet 80 mg PO QHS Qty: 30 2RF metformin 500 mg tablet 500 mg PO BID Qty: 60 2RF Continued insulin lispro [Humalog KwikPen Insulin] 100 UNIT/ML insulin pen 17 units subcut TID Patient Comments: SHORT ACTING INSULIN insulin glargine [Lantus Solostar U-100 Insulin] 100 UNITS/ML insulin pen 50 units subcut QHS Patient Comments: diabetes aspirin 81 MG tablet,chewable 81 mg PO DAILY@0800 Qty: 0 0RF Trulicity 3 mg/0.5 mL pen injector 3 mg SUBCUT .weekly Patient Comments: on tuesday Trelegy Ellipta 100-62.5-25 mcg blister with device 1 inh INHALATION Q24H omeprazole 20 mg capsule,delayed release(DR/EC) 20 mg PO DAILY tamsulosin 0.4 mg capsule 0.4 mg PO BID venlafaxine 150 mg capsule,extended release 24hr 150 mg PO DAILY Discontinued atorvastatin 40 MG tablet 80 mg PO QHS Referrals / Follow Up: Ra Patino MD [Med Staff - Active Staff] - Within 2 Weeks (SEE to establish care for carotid stenosis.) Felton Islas MD [Non-Staff -Ordering Privileges] - Within 1 Week (SEE TO [facility] FOR STROKE) Tommy Markham MD [Primary Care Provider] - Within 2 Weeks Disposition Disposition (needs filled in before D/C Order can be placed): Home, Self Care Charges/Coding Visit Charges Inpatient E&M: 00351 Disch Hosp >30min
--- NOTE | 2023-09-07 12:34 | CASEMGMT ---
Patient has order for discharge. RN CM in to discuss needs at discharge. Patient did well with therapy, no recommendations. Patient denies needs at discharge. Patient had no further questions or concerns.
[2023-09-07 13:20] VITALS: BP 143/66; PULSE 81; RESP 18; TEMP 36.5; O2SAT 95
== END 2023-09-07 11:55 | disposition home or self-care (01) ==
LOC: ED 23:52 → PCU 09-06 01:42
PROVIDERS: Admitting Provider Hospitalist; Emergency Provider Emergency Medicine; PCP Family Medicine; Visit Provider Student in an Organized Health Care Education/Training Program
DX: I63.9 Cerebral infarction, unspecified (principal); I69.354 Hemiplegia and hemiparesis following cerebral infarction affecting left non-dominant side; E11.9 Type 2 diabetes mellitus without complications; Z79.4 Long term (current) use of insulin; Z87.891 Personal history of nicotine dependence; Z79.82 Long term (current) use of aspirin; R47.81 Slurred speech; I69.392 Facial weakness following cerebral infarction; Z79.899 Other long term (current) drug therapy; E78.5 Hyperlipidemia, unspecified
CPT/HCPCS: 36415; 70450; 70496; 70498; 70551; 80048; 80061; 81001; 82962; 83036; 85025; 92523; 93005; 93306; 94640; 94660; 94762; 96360; 96372; 97162; 97802; 99221; 99252; 99284; J7040; Q9957; Q9967; A4216; C8929; G0378; G0463

== ENCOUNTER → 2023-09-12 | Outpatient (CLI) | payer MEDICARE, OTHER, SELFPAY ==
[2023-09-12 14:44] LABS: PSA,Total- Diagnostic 5.81 ng/mL (0.0-4.0)
== END | disposition home or self-care (01) ==
LOC: LAB 13:33
PROVIDERS: PCP Family Medicine; Referring Provider Urology; Visit Provider Urology
DX: N40.1 Benign prostatic hyperplasia with lower urinary tract symptoms (principal)
CPT/HCPCS: 36415; 84153

== ENCOUNTER 2023-09-26 12:51 | Observation (INO) | payer MEDICARE, OTHER, SELFPAY ==
[2023-09-26] VITALS (8 sets, daily range): BP systolic 115–164; BP diastolic 62–78; PULSE 67–105; RESP 14–19; TEMP 36.1–36.8; O2SAT 93–100; BMI 29.1; BMI 31.5; BMI 30.1
--- NOTE | 2023-09-26 12:55 | ED.RN ---
RN INFORMED DR FLORIAN THAT PATIENT REPORTS LEFT FOOT WEAKNESS DURING THERAPY AT 0900. PT ARRIVED TO ED AT 1230. RN TESTED LEG DRIFT AND STRENGTH WITH NO ABNORMALITIES AND SENSATION WAS EQUALLY INTACT. DR FLORIAN STATES NO STROKE ALERT AT THIS TIME
--- NOTE | 2023-09-26 13:56 | CT_ITS ---
STUDY: CT BRAIN WITHOUT CONTRAST REASON FOR EXAM: Male, 68 years old. L sided weakness, resolved, recent CVA RADIATION DOSAGE (If Supplied By Facility): CTDIvol = ( 44.99 ) mGy, DLP = ( 829.85 ) mGycm TECHNIQUE: Transaxial CT imaging of the brain was performed without administration of intravenous contrast material. Individualized dose optimization techniques were used for this CT. COMPARISON: Comparison is made with prior study dated September 05, 2023. FINDINGS: Normal soft tissue structures. Normal calvarium. There is mild cerebral atrophy with widening of the extra-axial spaces and ventricular dilatation. There are areas of decreased attenuation within the white matter tracts of the supratentorial brain, consistent with microvascular disease changes. Small bilateral pulmonary metastases in the basal ganglia Normal brainstem. Normal cerebellum. There is no intracranial hemorrhage. There are no findings of an acute ischemic infarction. Atherosclerotic calcific plaques in the cavernous portions of the internal carotid artery bilaterally. Normal visualized paranasal sinuses. CT/Brain/Head without Contrast IMPRESSION: Chronic involutional changes of the brain. Stable examination. Electronically Signed: Juan Jean MD at 14:29 EST ,
--- NOTE | 2023-09-26 13:57 | EX.ED.DYSGE1 ---
HPI <MARY Espinoza - Last Filed: 09/26/23 19:54> History of Present Illness Chief Complaint: Neuro S/Sx Narrative Narrative: Patient presenting today due to concerns for left lower extremity weakness that started around 9:30 AM this morning. He reports that he was admitted here to the hospital on 09/05/2023 due to concerns for acute stroke. He had an MRI that showed early subacute linear ischemia infarct in the right periventricular white matter with progression of chronic ischemic changes. Was put on a high density statin with aspirin, he is not currently on Plavix. He was in rehab today when he began to feel weak on the left side, felt like he was losing his balance, and was dragging his left foot. reports that she had to help him ambulate and they came here for evaluation. [facility] <MARY Espinoza - Last Filed: 09/26/23 19:54> [facility] Medical History (Updated 09/29/23 @ 00:20 by Lolly Peres) COPD (chronic obstructive pulmonary disease) CPAP (continuous positive airway pressure) dependence Diabetes GERD (gastroesophageal reflux disease) History of diabetes mellitus History of multiple cerebrovascular accidents (CVAs) History of stroke Non-smoker Sleep apnea Slurred speech Stroke-like symptoms Stroke/cerebrovascular accident Home Medications insulin glargine 100 unit/mL (3 mL) subcutaneous pen (Lantus Solostar U-100 Insulin) 50 units subcut QHS diabetes 02/27/15 [History Last Taken 02/26/15] insulin lispro 100 unit/mL subcutaneous pen (Humalog KwikPen (U-100) Insulin) 17 units subcut TID diabetes 02/27/15 [History Last Taken 02/27/15] aspirin 81 mg chewable tablet 81 mg PO DAILY@0800 [facility] ##0 03/14/15 [Rx Last Taken Unknown] dulaglutide 3 mg/0.5 mL subcutaneous pen injector (Trulicity) 3 mg subcut .weekly diabetes 09/05/23 [History Last Taken 09/25/23] fluticasone fur. 100 mcg-umeclid 62.5 mcg-vilant 25 mcg inhalat.powder (Trelegy Ellipta) 1 inh inhalation Q24H breathing 09/05/23 [History Last Taken Unknown] omeprazole 20 mg capsule,delayed release 20 mg PO DAILY reflux 09/05/23 [History Last Taken Unknown] tamsulosin 0.4 mg capsule 0.4 mg PO BID prostate 09/05/23 [History Last Taken Unknown] venlafaxine 150 mg capsule,extended release 24 hr 150 mg PO DAILY mental health 09/05/23 [History Last Taken Unknown] atorvastatin 80 mg tablet 80 mg PO QHS #30 tabs 09/07/23 [Rx Last Taken Unknown] Allergy/AdvReac Type Severity Reaction Status Date / Time Penicillins Allergy Intermediate Hives Verified 09/26/23 12:54 Family History Other Alzheimer disease Breast cancer Thyroid cancer Surgical History (Updated 09/26/23 @ 20:23 by Tracey Garcia) History of cholecystectomy History of ear surgery Social History Smoking Status: Former smoker Tobacco: How many years used: 50 how long ago did patient quit smoking: ROS <MARY Espinoza - Last Filed: 09/26/23 19:54> ROS ED Constitutional Constitutional ED: Denies chills or fever(s) Eyes Eyes: Denies blurry vision or change in vision Cardiovascular Cardiovascular: Denies chest pain or palpitations Respiratory/Chest Respiratory/Chest: Denies cough or dyspnea Gastrointestinal Gastrointestinal: Denies abdominal pain, nausea or vomiting Genitourinary Genitourinary ED: Denies dysuria, hematuria or urinary urgency Musculoskeletal Musculoskeletal: Denies arthralgias or myalgias Integumentary Denies rash Neurologic Neurologic: Reports weakness; Denies confusion, dizziness, headache(s) or paresthesias EXAM <MARY Espinoza - Last Filed: 09/26/23 19:54> Physical Exam Const Vital Signs: 09/26/23 12:52 09/26/23 13:51 09/26/23 14:56 Temperature 97.7 F L Temperature Source Temporal Pulse Rate 92 79 73 Respiratory Rate 14 14 19 H Blood Pressure 118/62 115/62 115/69 Blood Pressure Mean 80 79 84 Pulse Ox 95 98 97 Oxygen Delivery Method Room Air Room Air Room Air 09/26/23 17:00 09/26/23 18:00 Temperature 97.6 F L Temperature Source Pulse Rate 80 78 Respiratory Rate 14 14 Blood Pressure 126/78 H 134/76 H Blood Pressure Mean 94 95 Pulse Ox 98 100 Oxygen Delivery Method Room Air Positive well nourished, well developed and no apparent distress General Appearance ED: well developed HEENT Reports normocephalic and head/scalp atraumatic HEENT Narrative: Slight left-sided facial droop Mouth ED: Yes moist mucous membranes normal Eyes PERRL and EOMs intact bilaterally Neck full ROM and supple Chest Wall inspection of chest normal Resp normal respiratory effort and clear to auscultation bilaterally Cardio regular rate and regular rhythm GI soft to palpation, non-tender, non-distended and no masses Back/Spine normal ROM and normal to inspection Extremity normal to inspection and full ROM Neuro oriented x3, CN's II-XII intact bilaterally, moves all extremities, no focal motor deficits and no sensory deficits noted Sensorium / Orientation: awake and alert Coordination / Balance: [id number] test normal and lmco-jd-[id number] test normal Speech: speech normal Gait (Neuro): normal gait; Negative for ataxic Motor Exam: strength 5/5 throughout Psych mental status grossly normal and thought process normal Skin no rashes or lesions noted and no wounds <Dr. Matteo Arriaga MD - Last Filed: 09/30/23 08:32> Physical Exam Const Vital Signs: 09/26/23 12:52 09/26/23 13:51 09/26/23 14:56 Temperature 97.7 F L Temperature Source Temporal Pulse Rate 92 79 73 Respiratory Rate 14 14 19 H Blood Pressure 118/62 115/62 115/69 Blood Pressure Mean 80 79 84 Pulse Ox 95 98 97 Oxygen Delivery Method Room Air Room Air Room Air 09/26/23 17:00 09/26/23 18:00 Temperature 97.6 F L Temperature Source Pulse Rate 80 78 Respiratory Rate 14 14 Blood Pressure 126/78 H 134/76 H Blood Pressure Mean 94 95 Pulse Ox 98 100 Oxygen Delivery Method Room Air [facility] <MARY Espinoza - Last Filed: 09/26/23 19:54> [facility] Narrative Medical decision making narrative: Patient presenting today due to concerns for left lower extremity weakness that started while he was at rehab around 9:30 AM this morning. Patient is well-appearing and in no acute distress. He was here on 09/05/2023 and was admitted due to concerns for stroke, MRI was obtained that did show evidence of subacute ischemia. He was put on a high intensity statin and aspirin, he is not on Plavix. Neurological exam here is WNL, NIH is 1 given the facial droop, patient is able to ambulate without difficulty, he is not dragging his left foot, balance is intact. However, there are concerns that the patient had a TIA. CT of the head will be obtained as well as basic labs. CT is negative for any acute findings. I did speak with Dr. Florian, the teleneurologist who reports that patient symptoms could be due to a infection that is causing patient to experience symptoms consistent with his previous stroke. He recommends obtaining a urinalysis, chest x-ray, COVID swab and if these come back positive for infection patient can safely be discharged home with outpatient follow-up. However, if I am not finding any sources of infection he recommends admission for repeat MRI to assess for any changes. He does not recommend Plavix at this time. Further work-up is unremarkable, I did speak with the hospitalist and patient will be admitted in stable condition. He is comfortable with plan. Insert attending patient presents with left lower extremity weakness, facial droop and slurred speech. Patient was recently admitted for stroke. Patient presently has no symptoms. He denies headache, he denies visual, ocular auditory symptoms. He denies chest pain or shortness of breath. He denies GI symptoms. He is not on anticoagulant. He is on aspirin. Prior records were reviewed. Patient initially was on aspirin and Plavix. The Plavix was discontinued after review of the MRI. Vital signs are unremarkable. HEENT exam is unremarkable. Neck is supple. There is no carotid bruits. Patient does have a facial droop on the left. 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 is uncertain whether the facial droop is about the same/baseline or worse than when he was diagnosed with stroke last month. Patient's NIH is 1 for the facial droop. CT was obtained to evaluate for hemorrhagic conversion. His work-up is unremarkable other than a slight right wound and an elevated creatinine of 1.32 with a GFR of 57 glucose is elevated at 386 with normal CO2 and anion gap. Neurology consult was obtained to discuss case and determine if patient need readmission versus adding antithrombotic i.e. Plavix or anticoagulants. Disposition pending consultation with neurology. Lab Data Attestation: I reviewed the patient's lab results. Labs: Laboratory Results - last 24 hr 09/26/23 09/26/23 09/26/23 13:39 14:19 17:05 WBC 13.7 H RBC 4.69 Hgb 13.3 Hct 41.3 MCV 88.1 MCH 28.4 MCHC 32.2 RDW Std Deviation 39.3 RDW Coeff of [place] 12.4 Plt Count 285 MPV 12.6 H Immature Gran % (Auto) 0.400 Neut % (Auto) 83.4 H Lymph % (Auto) 9.6 L [place] % (Auto) 4.6 Eos % (Auto) 1.5 Baso % (Auto) 0.5 Absolute Neuts (auto) 11.4 H Absolute Lymphs (auto) 1.32 Nucleated RBC % 0 Sodium 131 L Potassium 4.0 Chloride 98 Carbon Dioxide 25.0 Anion Gap 8 BUN 20 H Creatinine 1.32 H Estim Creat Clear Calc 57.97 Est GFR (MDRD) Af Amer 69 Est GFR (MDRD) Non-Af 57 L BUN/Creatinine Ratio 15.2 Glucose 386 H Calcium 8.6 Urine Color Yellow Urine Clarity Clear Urine pH 6.0 Ur Specific [place] 1.010 Urine Protein Negative Urine Glucose (UA) 250 H Urine Ketones Negative Urine Occult Blood Negative Urine Nitrite Negative Urine Bilirubin Negative Urine Urobilinogen Normal Ur Leukocyte Esterase Negative Urine RBC 0 SEEN Urine WBC 0 SEEN Ur Squamous Epith Cells 0 SEEN Urine Bacteria 0 SEEN Urine Mucus 0 SEEN POC Glucose 344 H Radiography X-Ray: Read by ED Physician and Read by Radiologist Diagnostic Testing: Clinical Impression(s) from Imaging Studies Brain CT 09/26/23 13:56 IMPRESSION: Chronic involutional changes of the brain. Stable examination. Electronically Signed: Juan Jean MD at 14:29 EST , Chest X-Ray 09/26/23 17:14 IMPRESSION: No radiographic evidence of acute cardiopulmonary disease. Electronically Signed: Zheng Ny MD at 17:51 EST , EKG Initial EKG: Comments: 61 bpm, sinus rhythm with PACs, no ST elevation, reviewed and interpreted by attending ED physician <Dr. Matteo Arriaga MD - Last Filed: 09/30/23 08:32> [facility] Narrative Medical decision making narrative: Patient presenting today due to concerns for left lower extremity weakness that started while he was at rehab around 9:30 AM this morning. Patient is well-appearing and in no acute distress. He was here on 09/05/2023 and was admitted due to concerns for stroke, MRI was obtained that did show evidence of subacute ischemia. He was put on a high intensity statin and aspirin, he is not on Plavix. Neurological exam here is WNL, NIH is 1 given the facial droop, patient is able to ambulate without difficulty, he is not dragging his left foot, balance is intact. However, there are concerns that the patient had a TIA. CT of the head will be obtained as well as basic labs. CT is negative for any acute findings. I did speak with Dr. Florian, the teleneurologist who reports that patient symptoms could be due to a infection that is causing patient to experience symptoms consistent with his previous stroke. He recommends obtaining a urinalysis, chest x-ray, COVID swab and if these come back positive for infection patient can safely be discharged home with outpatient follow-up. However, if I am not finding any sources of infection he recommends admission for repeat MRI to assess for any changes. He does not recommend Plavix at this time. Further work-up is unremarkable, I did speak with the hospitalist and patient will be admitted in stable condition. He is comfortable with plan. Insert attending: patient presents with left lower extremity weakness, facial droop and slurred speech. Patient was recently admitted for stroke. Patient presently has no symptoms. He denies headache, he denies visual, ocular auditory symptoms. He denies chest pain or shortness of breath. He denies GI symptoms. He is not on anticoagulant. He is on aspirin. Prior records were reviewed. Patient initially was on aspirin and Plavix. The Plavix was discontinued after review of the MRI. Vital signs are unremarkable. HEENT exam is unremarkable. Neck is supple. There is no carotid bruits. Patient does have a facial droop on the left. 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 is uncertain whether the facial droop is about the same/baseline or worse than when he was diagnosed with stroke last month. Patient's NIH is 1 for the facial droop. CT was obtained to evaluate for hemorrhagic conversion. His work-up is unremarkable other than a slight right wound and an elevated creatinine of 1.32 with a GFR of 57 glucose is elevated at 386 with normal CO2 and anion gap. Neurology consult was obtained to discuss case and determine if patient need readmission versus adding antithrombotic i.e. Plavix or anticoagulants. Disposition pending consultation with neurology. Lab Data Labs: Laboratory Results - last 24 hr 09/26/23 09/26/23 09/26/23 13:39 14:19 17:05 WBC 13.7 H RBC 4.69 Hgb 13.3 Hct 41.3 MCV 88.1 MCH 28.4 MCHC 32.2 RDW Std Deviation 39.3 RDW Coeff of [place] 12.4 Plt Count 285 MPV 12.6 H Immature Gran % (Auto) 0.400 Neut % (Auto) 83.4 H Lymph % (Auto) 9.6 L [place] % (Auto) 4.6 Eos % (Auto) 1.5 Baso % (Auto) 0.5 Absolute Neuts (auto) 11.4 H Absolute Lymphs (auto) 1.32 Nucleated RBC % 0 Sodium 131 L Potassium 4.0 Chloride 98 Carbon Dioxide 25.0 Anion Gap 8 BUN 20 H Creatinine 1.32 H Estim Creat Clear Calc 57.97 Est GFR (MDRD) Af Amer 69 Est GFR (MDRD) Non-Af 57 L BUN/Creatinine Ratio 15.2 Glucose 386 H Calcium 8.6 Urine Color Yellow Urine Clarity Clear Urine pH 6.0 Ur Specific [place] 1.010 Urine Protein Negative Urine Glucose (UA) 250 H Urine Ketones Negative Urine Occult Blood Negative Urine Nitrite Negative Urine Bilirubin Negative Urine Urobilinogen Normal Ur Leukocyte Esterase Negative Urine RBC 0 SEEN Urine WBC 0 SEEN Ur Squamous Epith Cells 0 SEEN Urine Bacteria 0 SEEN Urine Mucus 0 SEEN POC Glucose 344 H Radiography Chest X-Ray - ED: 2 View and Read by ED Physician (Interpreted by me at 1724 as no acute findings. There is scarring chronic changes noted predominately right versus left. Cardiac silhouette size normal. Perihilar region normal. Osseous structures are unremarkable.) Diagnostic Testing: Clinical Impression(s) from Imaging Studies Brain CT 09/26/23 13:56 IMPRESSION: Chronic involutional changes of the brain. Stable examination. Electronically Signed: Juan Jean MD at 14:29 EST , Chest X-Ray 09/26/23 17:14 IMPRESSION: No radiographic evidence of acute cardiopulmonary disease. Electronically Signed: Zheng Ny MD at 17:51 EST , Management Discussion w/another healthcare provider: Assistant Manager Bilingual (Teleneurology and documented the MDM/plan under my attending note.) Discharge Plan Dx/Rx/DC Orders Clinical Impression: History of multiple cerebrovascular accidents (CVAs), TIA (transient ischemic attack) Disposition Disposition: Acute Care Hospital [facility] Discharge Date/Time: 09/26/23 20:03
[2023-09-26 14:32] LABS: Absolute Lymphocyte Count 1.32 X10^3/uL (0.83-4.51); Absolute Neutrophil Count 11.4 X10^3/uL (2.0-7.7); Basophil# 0.07 X10^3/uL; Basophil% 0.5 % (0-1); Eosinophils% 1.5 % (0-5); Hematocrit 41.3 % (40-54); Hemoglobin 13.3 g/dL (13.0-16.5); Lymphocyte # 1.32 X10^3/ul (0.83-4.51); Lymphocyte % 9.6 % (19-41); Mean Corp Hgb Conc 32.2 g/dL (32-36); Mean Corpuscular Hgb 28.4 pg (27.0-32.0); Mean Corpuscular Volume 88.1 fL (80-94); Mean Platelet Vol. 12.6 fl (6.2-12.0); Monocyte# 0.63 X10^3/uL; Monocyte% 4.6 % (0-10); NRBC Flagged by Analyzer 0 % (0-5); Neutrophil # 11.41 X10^3/uL (2.7-7.7); Neutrophil % 83.4 % (47-70); Platelet Count 285 K/mm3 (150-450); RBC Distribution Width CV 12.4 % (11.6-14.6); RBC Distribution Width SD 39.3 fl (35.1-43.9); Red Blood Count 4.69 M/mm3 (4.6-6.2); White Blood Count 13.7 K/mm3 (4.4-11.0)
[2023-09-26 14:37] LABS: Bedside Glucose 344 mg/dL (74-106)
[2023-09-26 14:47] LABS: Anion Gap 8 (5-15); BUN 20 mg/dL (7-18); BUN/Creat Ratio 15.2 RATIO (10-20); Calcium,Total 8.6 mg/dL (8.5-10.1); Chloride 98 mmol/L (98-107); Creatinine, Serum 1.32 mg/dL (0.70-1.30); EST Glomerular Filtration Rate 57 mL/min (>60); Est Glom Filt Rate - Afr Amer 69 mL/min (>60); Estimated Creatinine Clearance 57.97 ml/min; Glucose 386 mg/dL (74-106); Sodium Level 131 mmol/L (136-145)
[2023-09-26] MEDS: 0.9% Normal Saline (1000mL) 1,000 ML 999 ML IV (14:54)
--- NOTE | 2023-09-26 17:00 | EKG12_ITS ---
Test Reason : NEURO Blood Pressure : / mmHG Vent. Rate : 061 BPM Atrial Rate : 061 BPM P-R Int : 146 ms QRS Dur : 064 ms QT Int : 436 ms P-R-T Axes : 046 -11 034 degrees QTc Int : 438 ms Sinus rhythm with Premature atrial complexes Low voltage QRS Borderline ECG Confirmed by ORLANDO LAMBERT, MIRTHA ([id number]), editor newspaper UMANG TURNER ([id number]) on 10/03/2023 10:14:09 AM Referred By: Confirmed By:ELADIO PERRY MD
--- NOTE | 2023-09-26 17:14 | RAD_ITS ---
EXAM: XR CHEST, 2 VIEWS CLINICAL INDICATION: cough TECHNIQUE: Frontal and lateral views of the chest. COMPARISON: 02/27/2015 FINDINGS: LUNGS AND PLEURAL SPACES: Unremarkable. No consolidation or edema. No pneumothorax. No effusion. HEART: Unremarkable. Cardiac silhouette not enlarged. MEDIASTINUM: Central airways and mediastinal contour are unremarkable. BONES/JOINTS: Unremarkable. SOFT TISSUES: Unremarkable. RAD/Chest PA and Lateral IMPRESSION: No radiographic evidence of acute cardiopulmonary disease. Electronically Signed: Zheng Ny MD at 17:51 EST ,
[2023-09-26 17:19] LABS: Bacteria 0 SEEN /hpf (None Seen); Mucous, Urine 0 SEEN /hpf (<or=2+); Red Blood Cells-Urine 0 SEEN /hpf (0-5); Squamous Epithelial Cells - UA 0 SEEN /hpf (0-5); White Blood Cells 0 SEEN /hpf (0-5)
[2023-09-26 17:41] LABS: Color, Urine Yellow (Yellow); Glucose, Dipstick 250 mg/dl (Normal); Ketone-Dipstick Negative (Negative); Leukocyte Esterase-Dipstick Negative /ul (Negative); Nitrite-Dipstick Negative (Negative); Occult Blood-Urine Negative /ul (Negative); Protein-Dipstick Negative (Negative); Urine Bilirubin Dipstick Negative (Negative); Urine Clarity Clear (Clear); Urine Urobilinogen Normal (Normal)
--- NOTE | 2023-09-26 18:51 | HP.PCM.HOS_ITS ---
HPI - General General Date of Admission: 09/26/23 HPI Narrative OLGA RODRIGUEZ, is a 68 M who presents to the hospital with recurrent left lower extremity weakness as well as slurred speech. He had a stroke 2 to 3 weeks ago with similar symptoms and he was at rehab today when these occurred. By the time of my evaluation all of his symptoms have resolved and his NIH was 0 with my assessment as well as the assessment of neurology who recommended admission for an MRI. Infectious work-up is unremarkable and he and his state that he does appear back to normal. His white blood cell count is elevated which could be reactive he might have a little bit of dehydration and his blood sugars also elevated to 386, family states that he has been struggling to get his blood sugar under control and that his primary care doctor has been making changes with the grossly recent occurring on Tuesday. [facility] Medical History History of diabetes mellitus History of stroke Slurred speech Stroke-like symptoms Home Medications insulin glargine 100 unit/mL (3 mL) subcutaneous pen (Lantus Solostar U-100 Insulin) 50 units subcut QHS diabetes 02/27/15 [History Last Taken 02/26/15] insulin lispro 100 unit/mL subcutaneous pen (Humalog KwikPen (U-100) Insulin) 17 units subcut TID diabetes 02/27/15 [History Last Taken 02/27/15] aspirin 81 mg chewable tablet 81 mg PO DAILY@0800 [facility] ##0 03/14/15 [Rx Last Taken Unknown] dulaglutide 3 mg/0.5 mL subcutaneous pen injector (Trulicity) 3 mg subcut .weekly diabetes 09/05/23 [History Last Taken 09/25/23] fluticasone fur. 100 mcg-umeclid 62.5 mcg-vilant 25 mcg inhalat.powder (Trelegy Ellipta) 1 inh inhalation Q24H breathing 09/05/23 [History Last Taken Unknown] omeprazole 20 mg capsule,delayed release 20 mg PO DAILY reflux 09/05/23 [History Last Taken Unknown] tamsulosin 0.4 mg capsule 0.4 mg PO BID prostate 09/05/23 [History Last Taken Unknown] venlafaxine 150 mg capsule,extended release 24 hr 150 mg PO DAILY mental health 09/05/23 [History Last Taken Unknown] atorvastatin 80 mg tablet 80 mg PO QHS #30 tabs 09/07/23 [Rx Last Taken Unknown] Allergy/AdvReac Type Severity Reaction Status Date / Time Penicillins Allergy Intermediate Hives Verified 09/26/23 12:54 Family History Other Alzheimer disease Breast cancer Thyroid cancer Surgical History History of ear surgery Social History Smoking Status: Former smoker Tobacco: How many years used: 50 how long ago did patient quit smoking: ROS Constitutional Constitutional: Denies chills, fatigue, fever(s) or malaise Eyes Eyes: Denies blurry vision ENT HEENT: Denies headache(s) or nasal discharge Cardiovascular Cardiovascular: Denies chest pain, dyspnea on exertion or syncope Respiratory/Chest Respiratory/Chest: Denies cough, shortness of breath at rest or shortness of breath with exertion Gastrointestinal Gastrointestinal: Denies constipation, diarrhea, nausea or vomiting Genitourinary Genitourinary: Denies dysuria Neurologic Neurologic: Reports abnormal speech and focal weakness; Denies numbness or tremor(s) Psychiatric Psychiatric: Denies anxiety or depression Vital Signs Vital Signs Vital Signs: 09/26/23 12:52 09/26/23 13:51 09/26/23 14:56 Temperature 97.7 F L Temperature Source Temporal Pulse Rate 92 79 73 Respiratory Rate 14 14 19 H Blood Pressure 118/62 115/62 115/69 Blood Pressure Mean 80 79 84 Pulse Ox 95 98 97 Oxygen Delivery Method Room Air Room Air Room Air 09/26/23 17:00 09/26/23 18:00 Temperature 97.6 F L Temperature Source Pulse Rate 80 78 Respiratory Rate 14 14 Blood Pressure 126/78 H 134/76 H Blood Pressure Mean 94 95 Pulse Ox 98 100 Oxygen Delivery Method Room Air Weight Weight: 232 lb 9.403 oz Body Mass Index (BMI) 31.5 Physical Exam Narrative General: Alert, Oriented x3, Cooperative, No apparent distress HEENT: Atraumatic, PERRLA, EOMI, Normocephalic Oral: Moist Mucosa Neck: Supple, No JVD Lungs: Diminished, Normal air movement, No rhonchi, No wheeze, No rales Cardiovascular: Regular rate, Regular Rhythm, Normal S1, Normal S2, No murmurs Abdomen: Soft, Non Tender, Non-Distended, No Hepato-splenomegaly Extremities: No edema, Capillary Refill Less than 3 Seconds Skin: No rashes, No breakdown Musculoskeletal: No Tenderness to Palpation of Joints or Extremities Neurological: Moves all extremities, Sensory exam intact to light touch and pain, NIH of 0 Psych/Mental Status: Normal Affect, Appropriate Results Lab / Micro Data 09/26/23 13:39 09/26/23 13:39 Labs: Laboratory Results - last 24 hr 09/26/23 13:39: WBC 13.7 H, RBC 4.69, Hgb 13.3, Hct 41.3, MCV 88.1, MCH 28.4, MCHC 32.2, RDW Std Deviation 39.3, RDW Coeff of [place] 12.4, Plt Count 285, MPV 12.6 H, Immature Gran % (Auto) 0.400, Neut % (Auto) 83.4 H, Lymph % (Auto) 9.6 L , [place] % (Auto) 4.6, Eos % (Auto) 1.5, Baso % (Auto) 0.5, Absolute Neuts (auto) 11.4 H, Absolute Lymphs (auto) 1.32, Nucleated RBC % 0, Sodium 131 L, Potassium 4.0, Chloride 98, Carbon Dioxide 25.0, Anion Gap 8, BUN 20 H, Creatinine 1.32 H, Estim Creat Clear Calc 57.97, Est GFR (MDRD) Af Amer 69, Est GFR (MDRD) Non-Af 5 7 L, BUN/Creatinine Ratio 15.2, Glucose 386 H, Calcium 8.6 09/26/23 14:19: POC Glucose 344 H 09/26/23 17:05: Urine Color Yellow, Urine Clarity Clear, Urine pH 6.0, Ur Specific [place] 1.010, Urine Protein Negative, Urine Glucose (UA) 250 H, Urine Ketones Negative, Urine Occult Blood Negative, Urine Nitrite Negative, Urine Bilirubin Negative, Urine Urobilinogen Normal, Ur Leukocyte Esterase Negative, Urine RBC 0 SEEN, Urine WBC 0 SEEN, Ur Squamous Epith Cells 0 SEEN, Urine Bacteria 0 SEEN, Urine Mucus 0 SEEN Micro: Microbiology 09/26/23 17:05 Nasal Secretion SARS-CoV-2 & FLU Antigen (Rapid) - Final Radiology Impression Brain CT 09/26/23 13:56 IMPRESSION: Chronic involutional changes of the brain. Stable examination. Electronically Signed: Juan Jean MD at 14:29 EST , Chest X-Ray 09/26/23 17:14 IMPRESSION: No radiographic evidence of acute cardiopulmonary disease. Electronically Signed: Zheng Ny MD at 17:51 EST , Assessment & Plan Assessment/Plan (1) TIA (transient ischemic attack): PLAN: Plan 1. TIA in the setting of a recent CVA ? He is already on Lipitor and aspirin, does not meet criteria for tPA ? He does have known left carotid artery stenosis that does not currently need to be intervened on ? We will obtain an MRI in the morning ? He had a recent echo will not repeat ? If the MRI is positive would recommend Plavix on discharge. He may not want to stay for for the results of the MRI tomorrow afternoon 2. DM2 ? We will continue with his home insulin ? Accu-Cheks ACHS ? Sliding scale insulin ? We will monitor and make adjustments 3. Anxiety/depression ? Stable ? Continue with his Effexor 4. GERD ? Stable ? Continue with PPI 5. BPH ? Stable ? Continue with Flomax DVT: Ambulation 75 minutes was spent on direct patient care, including documentation as well as chart review and collaboration with colleagues Charges/Coding Visit Charges Inpatient E&M: 34315 Init Hosp L3
[2023-09-26] MEDS: Atorvastatin Calcium 80 MG Tablet PO (21:20)
[2023-09-26] MEDS: Insulin Glargine-YFGN 100 UNIT/ML Pen 50 UNIT SC (21:21)
[2023-09-26] MEDS: Insulin Lispro 100 UNIT/ML INSULN.PEN SC (22:49)
[2023-09-27 00:24] LABS: Bedside Glucose 277 mg/dL (74-106)
[2023-09-27 02:00] VITALS: BP 149/71; PULSE 69; RESP 18; TEMP 36.8; O2SAT 97
[2023-09-27 02:31] VITALS: BMI 30.1
[2023-09-27 03:54] LABS: Cholesterol 100 mg/dL (200); High Density Lipoprotein 36 mg/dL; Triglycerides 82 mg/dL; Very Low Density Lipoprotein 16 mg/dL (5-40)
[2023-09-27 05:45] VITALS: BP 157/76; PULSE 65; RESP 16; TEMP 36.6; O2SAT 97
[2023-09-27] MEDS: Pantoprazole Sodium 20 MG Tablet PO (06:59)
[2023-09-27] MEDS: Tamsulosin HCl 0.4 MG Capsule PO (06:59)
[2023-09-27] MEDS: Aspirin 81 MG TAB.CHEW PO (06:59)
[2023-09-27] MEDS: Venlafaxine XR 150 MG Capsule PO (06:59)
[2023-09-27 07:20] LABS: Bedside Glucose 266 mg/dL (74-106)
[2023-09-27 07:29] VITALS: O2SAT 95
--- NOTE | 2023-09-27 07:42 | PN.HOSP_ITS ---
Subjective Subjective Feels well. No new events. Objective Data Objective Data Vital Signs: Vital Signs Temp Pulse Resp BP Pulse Ox O2 Del Method 36.6 C 65 16 157/76 H 97 Room Air 09/27/23 05:45 09/27/23 05:45 09/27/23 05:45 09/27/23 05:45 09/27/23 05:45 09/27/23 05:45 Oxygen Delivery Method Room Air Weight: 103.6 kg Body Mass Index (BMI) 30.1 Intake & Output: Intake and Output for Last 24 Hours 09/25/23 09/26/23 09/27/23 23:59 23:59 23:59 Intake Total 1000 / 1000 150 / 150 Balance 1000 / 1000 150 / 150 Lab / Micro Data 09/26/23 13:39 09/26/23 13:39 Labs: Laboratory Results - last 24 hr 09/26/23 13:39: WBC 13.7 H, RBC 4.69, Hgb 13.3, Hct 41.3, MCV 88.1, MCH 28.4, MCHC 32.2, RDW Std Deviation 39.3, RDW Coeff of [place]oshana 12.4, Plt Count 285, MPV 12.6 H, Immature Gran % (Auto) 0.400, Neut % (Auto) 83.4 H, Lymph % (Auto) 9.6 L , Cotton % (Auto) 4.6, Eos % (Auto) 1.5, Baso % (Auto) 0.5, Absolute Neuts (auto) 11.4 H, Absolute Lymphs (auto) 1.32, Nucleated RBC % 0, Sodium 131 L, Potassium 4.0, Chloride 98, Carbon Dioxide 25.0, Anion Gap 8, BUN 20 H, Creatinine 1.32 H, Estim Creat Clear Calc 57.97, Est GFR (MDRD) Af Amer 69, Est GFR (MDRD) Non-Af 57 L, BUN/Creatinine Ratio 15.2, Glucose 386 H, Calcium 8.6 09/26/23 14:19: POC Glucose 344 H 09/26/23 17:05: Urine Color Yellow, Urine Clarity Clear, Urine pH 6.0, Ur Specific [place] 1.010, Urine Protein Negative, Urine Glucose (UA) 250 H, Urine Ketones Negative, Urine Occult Blood Negative, Urine Nitrite Negative, Urine Bilirubin Negative, Urine Urobilinogen Normal, Ur Leukocyte Esterase Negative, Urine RBC 0 SEEN, Urine WBC 0 SEEN, Ur Squamous Epith Cells 0 SEEN, Urine Bacteria 0 SEEN, Urine Mucus 0 SEEN 09/26/23 21:19: POC Glucose 277 H 09/27/23 02:50: Triglycerides 82, Cholesterol 100, LDL Cholesterol 48, VLDL Cholesterol 16, HDL Cholesterol 36 L 09/27/23 06:52: POC Glucose 266 H Micro: Microbiology 09/26/23 17:05 Nasal Secretion SARS-CoV-2 & FLU Antigen (Rapid) - Final Radiography Diagnostic Testing: Radiology Impression Brain CT 09/26/23 13:56 IMPRESSION: Chronic involutional changes of the brain. Stable examination. Electronically Signed: Juan Jean MD at 14:29 EST , Chest X-Ray 09/26/23 17:14 IMPRESSION: No radiographic evidence of acute cardiopulmonary disease. Electronically Signed: Zheng Ny MD at 17:51 EST , Physical Exam Const alert and no apparent distress HEENT head/scalp atraumatic Neuro moves all extremities and no focal motor deficits Assessment & Plan Assessment/Plan (1) TIA (transient ischemic attack): PLAN: Recurrent left lower extremity weakness with slurred speech. Symptoms resolved. Had presented on 09/06 with 10-day history left facial droop. MRI brain showed early subacute linear ischemic infarct in right periventricular white matter. Prior CVA years prior. Already on atorvastatin and ASA. tPA not indicated. MRI brain showed the old prior stroke. No new events. May have been exacerbated with either overexertion or if he just was not feeling well given the location of his prior deficits from his prior stroke. The last stroke, patient waited several days before getting evaluated., Advised patient if he has acute worsening of symptoms or new symptoms to be evaluated immediately. PLAN: Plan Chronic conditions: * DM2? We will continue with his home insulin? Accu-Cheks ACHS? Sliding scale insulin? We will monitor and make adjustments * Anxiety/depression? Stable? Continue with his Effexor * GERD? Stable? Continue with PPI * BPH? Stable? Continue with Flomax
[2023-09-27] MEDS: Insulin Lispro 100 UNIT/ML INSULN.PEN 17 UNIT SC (08:13)
[2023-09-27] MEDS: Insulin Lispro 100 UNIT/ML INSULN.PEN SC (08:14)
--- NOTE | 2023-09-27 09:00 | MRI_ITS ---
HISTORY: TIA. TECHNIQUE: Multiplanar and multisequence MR images of the brain were obtained without contrast. 289 images. COMPARISON: CT prior day, MRI 09/06/2023. FINDINGS: BRAIN PARENCHYMA: Multiple foci and zones of increased T2 FLAIR signal in the bilateral cerebral white matter and rico. Chronic cerebral and cerebellar microhemorrhage again seen. Evolution of small late subacute right periventricular infarct. No new abnormal focus of restricted diffusion. No acute intracranial hemorrhage identified. CSF SPACES: Generalized volume loss. No significant midline shift or other mass effect.No extra-axial fluid collection. VASCULAR SYSTEM: Major intracranial flow voids are maintained. PARANASAL SINUSES AND MASTOID AIR CELLS: No significant air fluid levels. ORBITS: Bilateral lens resections. MRI/Brain without Contrast IMPRESSION: No evidence for acute infarct. Small late subacute right periventricular infarct. Moderate chronic involutional and white matter changes. Electronically Signed: Gladys Shaw MD at 10:23 EST ,
--- NOTE | 2023-09-27 10:12 | CASEMGMT ---
Social Work Pt completed PHQ-9 with pt, pt scored a 3 stating he's been tired nearly every day. Pt attributes it to his health issues. No indications of depression at this time. COLLEEN Sonw
[2023-09-27 11:33] VITALS: BP 121/67; PULSE 80; RESP 12; TEMP 36.8; O2SAT 93
[2023-09-27 11:55] LABS: Bedside Glucose 239 mg/dL (74-106)
--- NOTE | 2023-09-27 12:01 | DS.PCM_ITS ---
Providers Date of Admission: 09/26/23 Primary Care Physician: Dr. Tommy Markham MD Reason For Visit: TIA Diagnosis Discharge Diagnosis (1) TIA (transient ischemic attack): Status: Acute Code(s): G45.9 - Transient cerebral ischemic attack, unspecified Plan: Recurrent left lower extremity weakness with slurred speech. Symptoms resolved. Had presented on 09/06 with 10-day history left facial droop. MRI brain showed early subacute linear ischemic infarct in right periventricular white matter. Prior CVA years prior. Already on atorvastatin and ASA. tPA not indicated. MRI brain showed the old prior stroke. No new events. May have been exacerbated with either overexertion or if he just was not feeling well given the location of his prior deficits from his prior stroke. The last stroke, patient waited several days before getting evaluated., Advised patient if he has acute worsening of symptoms or new symptoms to be evaluated immediately. Plan Chronic conditions: * DM2? We will continue with his home insulin? Accu-Cheks ACHS? Sliding scale insulin? We will monitor and make adjustments * Anxiety/depression? Stable? Continue with his Effexor * GERD? Stable? Continue with PPI * BPH? Stable? Continue with Flomax Medications at Discharge Home Medications insulin glargine 100 unit/mL (3 mL) subcutaneous pen (Lantus Solostar U-100 Insulin) 50 units subcut QHS diabetes 02/27/15 insulin lispro 100 unit/mL subcutaneous pen (Humalog KwikPen (U-100) Insulin) 17 units subcut TID diabetes 02/27/15 aspirin 81 mg chewable tablet 81 mg PO DAILY@0800 heart health ##0 03/14/15 dulaglutide 3 mg/0.5 mL subcutaneous pen injector (Trulicity) 3 mg subcut .weekly diabetes 09/05/23 fluticasone fur. 100 mcg-umeclid 62.5 mcg-vilant 25 mcg inhalat.powder (Trelegy Ellipta) 1 inh inhalation Q24H breathing 09/05/23 omeprazole 20 mg capsule,delayed release 20 mg PO DAILY reflux 09/05/23 tamsulosin 0.4 mg capsule 0.4 mg PO BID prostate 09/05/23 venlafaxine 150 mg capsule,extended release 24 hr 150 mg PO DAILY mental health 09/05/23 atorvastatin 80 mg tablet 80 mg PO QHS #30 tabs 09/07/23 Hospital Course Operations None Procedures None Summary of Care Provided Minutes Spent on Discharge: 33 Hospital Course: Patient presented with slurred speech and left leg weakness. This is similar to his symptoms that he had last month. He at that time waited about 10 days before being evaluated was found that he had a stroke. Patient underwent another MRI today that just showed evolution of his prior stroke. Likely his symptoms were exacerbated due to either overexertion or or if he was tired. No additional work-up is needed. Patient continue with his current regimens and continue with outpatient therapy. Weight / BMI Weight Weight: 103.6 kg Body Mass Index (BMI) 30.1 ABG / Lab / Microbiology Data 09/26/23 13:39 09/26/23 13:39 Laboratory: Laboratory Results - last 24 hr 09/26/23 13:39: WBC 13.7 H, RBC 4.69, Hgb 13.3, Hct 41.3, MCV 88.1, MCH 28.4, MCHC 32.2, RDW Std Deviation 39.3, RDW Coeff of Shoshana 12.4, Plt Count 285, MPV 12.6 H, Immature Gran % (Auto) 0.400, Neut % (Auto) 83.4 H, Lymph % (Auto) 9.6 L , Wirt % (Auto) 4.6, Eos % (Auto) 1.5, Baso % (Auto) 0.5, Absolute Neuts (auto) 11.4 H, Absolute Lymphs (auto) 1.32, Nucleated RBC % 0, Sodium 131 L, Potassium 4.0, Chloride 98, Carbon Dioxide 25.0, Anion Gap 8, BUN 20 H, Creatinine 1.32 H, Estim Creat Clear Calc 57.97, Est GFR (MDRD) Af Amer 69, Est GFR (MDRD) Non-Af 57 L, BUN/Creatinine Ratio 15.2, Glucose 386 H, Calcium 8.6 09/26/23 14:19: POC Glucose 344 H 09/26/23 17:05: Urine Color Yellow, Urine Clarity Clear, Urine pH 6.0, Ur Specific [place] 1.010, Urine Protein Negative, Urine Glucose (UA) 250 H, Urine Ketones Negative, Urine Occult Blood Negative, Urine Nitrite Negative, Urine Bilirubin Negative, Urine Urobilinogen Normal, Ur Leukocyte Esterase Negative, Urine RBC 0 SEEN, Urine WBC 0 SEEN, Ur Squamous Epith Cells 0 SEEN, Urine Bacteria 0 SEEN, Urine Mucus 0 SEEN 09/26/23 21:19: POC Glucose 277 H 09/27/23 02:50: Triglycerides 82, Cholesterol 100, LDL Cholesterol 48, VLDL Cholesterol 16, HDL Cholesterol 36 L 09/27/23 06:52: POC Glucose 266 H 09/27/23 11:35: POC Glucose 239 H Microbiology: Microbiology 09/26/23 17:05 Nasal Secretion SARS-CoV-2 & FLU Antigen (Rapid) - Final Radiography Diagnostic Testing: Radiology Impression Brain CT 09/26/23 13:56 IMPRESSION: Chronic involutional changes of the brain. Stable examination. Electronically Signed: Juan Jean MD at 14:29 EST , Chest X-Ray 09/26/23 17:14 IMPRESSION: No radiographic evidence of acute cardiopulmonary disease. Electronically Signed: Zheng Ny MD at 17:51 EST , Brain MRI 09/27/23 09:00 IMPRESSION: No evidence for acute infarct. Small late subacute right periventricular infarct. Moderate chronic involutional and white matter changes. Electronically Signed: Gladys Shaw MD at 10:23 EST , D/C Instructions Discharge Diet: Low fat / Low cholesterol Meaningful Use Info Meaningful Use Diagnoses (Choose all that apply): None applicable Discharge Plan Admission Admit Date/Time: 09/26/23 18:37 Primary Reason for Your Visit: Weakness and slurred speech. Attending Provider: Ra Abdi Primary Care Provider: Tommy Markham Consulting Providers: Mart Daimond Instructions Additional Instructions / Restrictions: You had symptoms similar to your prior stroke but there is no evidence of any new stroke. Sometimes when people are overexerted or if tired, some of the symptoms from the prior stroke may become more exaggerated. If you have similar symptoms in the future likely not a new stroke, however, if the symptoms do become drastically worse or if you develop new symptoms that may be a sign of a new stroke and you should be evaluated immediately. Discharge Orders/Prescriptions Prescriptions: Continued insulin lispro [Humalog KwikPen Insulin] 100 UNIT/ML insulin pen 17 units subcut TID Patient Comments: SHORT ACTING INSULIN insulin glargine [Lantus Solostar U-100 Insulin] 100 UNITS/ML insulin pen 50 units subcut QHS Patient Comments: diabetes aspirin 81 MG tablet,chewable 81 mg PO DAILY@0800 Qty: 0 0RF Trulicity 3 mg/0.5 mL pen injector 3 mg SUBCUT .weekly Patient Comments: on tuesday Trelegy Ellipta 100-62.5-25 mcg blister with device 1 inh INHALATION Q24H omeprazole 20 mg capsule,delayed release(DR/EC) 20 mg PO DAILY tamsulosin 0.4 mg capsule 0.4 mg PO BID venlafaxine 150 mg capsule,extended release 24hr 150 mg PO DAILY atorvastatin 80 mg Tablet 80 mg PO QHS Qty: 30 2RF Referrals / Follow Up: [facility] [Provider Group] - 01/26/24 10:00 am Tommy Markham MD [Primary Care Provider] - Within 2 Weeks Disposition Disposition (needs filled in before D/C Order can be placed): Home, Self Care Charges/Coding Visit Charges Inpatient E&M: 53818 Disch Hosp >30min
--- NOTE | 2023-09-27 12:20 | CASEMGMT ---
OFELIA WASHINGTON updated by ST that patient would benefit from outpatient ST, script received. OFELIA WASHINGTON in to discharge need with patient. Script provided to patient with [facility] information. Patient wishes to schedule appt on his own. Patient denied further needs, questions, or concerns at this time.
--- NOTE | 2023-09-27 13:33 | PHA.DC_ITS ---
Pharmacy [place] Med Reconciliation Pharmacy Service has performed discharge medication reconciliation for this patient. The patient's discharge medication list was reviewed for discrepancies and discrepancies were resolved. Medications at Discharge Home Medications insulin glargine 100 unit/mL (3 mL) subcutaneous pen (Lantus Solostar U-100 Insulin) 50 units subcut QHS diabetes 02/27/15 insulin lispro 100 unit/mL subcutaneous pen (Humalog KwikPen (U-100) Insulin) 17 units subcut TID diabetes 02/27/15 aspirin 81 mg chewable tablet 81 mg PO DAILY@0800 [facility] ##0 03/14/15 dulaglutide 3 mg/0.5 mL subcutaneous pen injector (Trulicity) 3 mg subcut .weekly diabetes 09/05/23 fluticasone fur. 100 mcg-umeclid 62.5 mcg-vilant 25 mcg inhalat.powder (Trelegy Ellipta) 1 inh inhalation Q24H breathing 09/05/23 omeprazole 20 mg capsule,delayed release 20 mg PO DAILY reflux 09/05/23 tamsulosin 0.4 mg capsule 0.4 mg PO BID prostate 09/05/23 venlafaxine 150 mg capsule,extended release 24 hr 150 mg PO DAILY mental health 09/05/23 atorvastatin 80 mg tablet 80 mg PO QHS #30 tabs 09/07/23
[2023-09-27 13:50] VITALS: BMI 30.1
== END 2023-09-27 12:04 | disposition home or self-care (01) ==
LOC: ED 14:35 → PCU 18:48
PROVIDERS: Physician Assistant; Admitting Provider Family Medicine; Emergency Provider Emergency Medicine; PCP Family Medicine
DX: G45.9 Transient cerebral ischemic attack, unspecified (principal); J44.9 Chronic obstructive pulmonary disease, unspecified; E11.9 Type 2 diabetes mellitus without complications; Z79.4 Long term (current) use of insulin; Z79.82 Long term (current) use of aspirin; R53.1 Weakness; R47.81 Slurred speech; Z87.891 Personal history of nicotine dependence; Z79.51 Long term (current) use of inhaled steroids; Z79.899 Other long term (current) drug therapy; R29.810 Facial weakness; K21.9 Gastro-esophageal reflux disease without esophagitis; F41.9 Anxiety disorder, unspecified; F32.A Depression, unspecified; N40.0 Benign prostatic hyperplasia without lower urinary tract symptoms; E78.5 Hyperlipidemia, unspecified; I10 Essential (primary) hypertension; Z86.73 Personal history of transient ischemic attack (TIA), and cerebral infarction without residual deficits
CPT/HCPCS: 36415; 70450; 70551; 71046; 80048; 80061; 81001; 82962; 85025; 87428; 93005; 94762; 96360; 96361; 97162; 97166; 99221; 99283; J7030; A4216; G0378

== ENCOUNTER 2023-11-02 09:20 | Inpatient (IN) | payer MEDICARE, OTHER, SELFPAY ==
[2023-11-02] VITALS (9 sets, daily range): BP systolic 133–169; BP diastolic 62–83; PULSE 80–103; RESP 14–30; TEMP 36.3–37.3; O2SAT 94–98; BMI 29.5; BMI 28.1
--- NOTE | 2023-11-02 09:33 | EKG12_ITS ---
Test Reason : FALL Blood Pressure : / mmHG Vent. Rate : 094 BPM Atrial Rate : 094 BPM P-R Int : 146 ms QRS Dur : 062 ms QT Int : 364 ms P-R-T Axes : 047 -19 055 degrees QTc Int : 455 ms Normal sinus rhythm Low voltage QRS Borderline ECG Confirmed by ORLANDO LAMBERT, MIRTHA ([id number]), science editor UMANG TURNER ([id number]) on 11/07/2023 1:45:02 P M Referred By: Confirmed By:ELADIO PERRY MD
--- NOTE | 2023-11-02 09:33 | CT_ITS ---
STUDY: CT BRAIN WITHOUT CONTRAST REASON FOR EXAM: Male, 68 years old. Fall, hx of stroke RADIATION DOSAGE (If Supplied By Facility): CTDIvol = ( 44.99 ) mGy, DLP = ( 846.73 ) mGycm TECHNIQUE: Transaxial CT imaging of the brain was performed without administration of intravenous contrast material. Individualized dose optimization techniques were used for this CT. COMPARISON: Comparison is made with prior study dated September 26, 2023. FINDINGS: Normal soft tissue structures. Normal calvarium. There is mild cerebral atrophy with widening of the extra-axial spaces and ventricular dilatation. There are areas of decreased attenuation within the white matter tracts of the supratentorial brain, consistent with microvascular disease changes. Stable small bilateral lacunar infarcts. Normal brainstem. Normal cerebellum. There is no intracranial hemorrhage. There are no findings of an acute ischemic infarction. Atherosclerotic calcific plaques in the cavernous portions of the internal carotid arteries bilaterally. Normal visualized paranasal sinuses. CT/Brain/Head without Contrast IMPRESSION: Chronic involutional changes of the brain. Electronically Signed: Juan Jean MD at 10:39 EST ,
--- NOTE | 2023-11-02 09:35 | EX.ED.DYSGE1 ---
HPI History of Present Illness Chief Complaint: Weakness Detail of Chief Complaint: Fall Informant: patient Narrative Narrative: Patient presents emergency department after sustaining a fall this morning. Patient states he was standing and trying to walk when he just collapsed. Denies losing consciousness. He had a stroke a few months ago and has had difficulty swallowing since that time and may be some mild left-sided weakness related to that. Patient thought maybe he had another stroke causing the collapse. He denies headache. Denies neck pain. Denies recent illness although he has had some increased urinary frequency. Denies dysuria. Denies fevers. [place] well yesterday. [facility] Medical History (Updated 11/02/23 @ 11:[address] Jamal Michele, DO) COPD (chronic obstructive pulmonary disease) CPAP (continuous positive airway pressure) dependence Diabetes GERD (gastroesophageal reflux disease) History of diabetes mellitus History of multiple cerebrovascular accidents (CVAs) History of stroke Non-smoker Sleep apnea Slurred speech Stroke-like symptoms Stroke/cerebrovascular accident Home Medications insulin glargine 100 unit/mL (3 mL) subcutaneous pen (Lantus Solostar U-100 Insulin) 50 units subcut QHS diabetes 02/27/15 [History Last Taken 02/26/15] insulin lispro 100 unit/mL subcutaneous pen (Humalog KwikPen (U-100) Insulin) 17 units subcut TID diabetes 02/27/15 [History Last Taken 02/27/15] aspirin 81 mg chewable tablet 81 mg PO DAILY@0800 [facility] ##0 03/14/15 [Rx Last Taken Unknown] dulaglutide 3 mg/0.5 mL subcutaneous pen injector (Trulicity) 3 mg subcut .weekly diabetes 09/05/23 [History Last Taken 09/25/23] fluticasone fur. 100 mcg-umeclid 62.5 mcg-vilant 25 mcg inhalat.powder (Trelegy Ellipta) 1 inh inhalation Q24H breathing 09/05/23 [History Last Taken Unknown] omeprazole 20 mg capsule,delayed release 20 mg PO DAILY reflux 09/05/23 [History Last Taken Unknown] tamsulosin 0.4 mg capsule 0.4 mg PO BID prostate 09/05/23 [History Last Taken Unknown] venlafaxine 150 mg capsule,extended release 24 hr 150 mg PO DAILY mental health 09/05/23 [History Last Taken Unknown] atorvastatin 80 mg tablet 80 mg PO QHS #30 tabs 09/07/23 [Rx Last Taken Unknown] Allergy/AdvReac Type Severity Reaction Status Date / Time Penicillins Allergy Intermediate Hives Verified 11/02/23 09:23 Family History Other Alzheimer disease Breast cancer Thyroid cancer Surgical History History of cholecystectomy History of ear surgery Social History Smoking Status: Former smoker Tobacco: How many years used: 50 how long ago did patient quit smoking: ROS ROS ED ROS Narrative Fall Constitutional Constitutional ED: Reports systems reviewed and no addt'l complaints, except as documented; Denies body ache(s), change in weight or chills Eyes Eyes: Denies acute decrease in peripheral vision, change in vision, double vision or loss of vision ENT ENT ED: Reports none; Denies ear pain, lip swelling, loss taste/smell, neck pain, otalgia or sore throat Cardiovascular Cardiovascular: Reports none; Denies abdominal pain, chest pain with activity, leg edema, lightheadedness, palpitations, rapid heart rate or syncope Respiratory/Chest Respiratory/Chest: Reports none; Denies change in mental status, dry cough, dyspnea, hemoptysis, shortness of breath at rest or shortness of breath with exertion Gastrointestinal Gastrointestinal: Reports none; Denies abdominal pain, change in stool character, diarrhea, hematemesis, hematochezia, melena, rectal bleeding or vomiting Genitourinary Genitourinary ED: Reports none; Denies abdominal discomfort, anuria, dysuria, genital pain or polyuria Musculoskeletal Musculoskeletal: Reports none and other Details: Abrasion left knee ; Denies arthralgias, back pain, difficulty walking, extremity pain, muscle weakness or myalgias Integumentary Reports none; Denies abscess or rash Neurologic Neurologic: Reports none; Denies abnormal gait, confusion, focal weakness, frequent falls, headache(s), loss of vision, numbness, paresthesias, radicular pain, vertigo or weakness Psychiatric Psychiatric: Reports systems reviewed and no addt'l complaints, except as documented and none; Denies behavioral changes, confusion, difficulty concentrating, hallucinations, suicidal ideation, tactile hallucinations or visual hallucinations Endocrine Endocrinology: Denies none, cold intolerance, excessive sweating, fatigue or heat intolerance Hematologic/Lymphatic Hematologic/Lymphatic: Reports none; Denies anemia, easy bleeding or easy bruising Allergic/Immunologic Allergic/Immunologic ED: Denies as per HPI, none, lip swelling, mouth swelling, throat swelling, tongue swelling or hives EXAM Physical Exam Const Vital Signs: 11/02/23 09:21 11/02/23 09:25 11/02/23 11:20 Temperature 97.4 F L Temperature Source Temporal Pulse Rate 103 H 86 Respiratory Rate 15 14 Respiratory Pattern Normal Blood Pressure 136/67 H 169/83 H Blood Pressure Mean 90 111 Pulse Ox 94 96 Oxygen Delivery Method Room Air Room Air Positive well nourished and well developed General Appearance ED: well developed and NAD HEENT Reports TM's clear and moist mucous membranes normocephalic and atraumatic; Negative for trauma or tenderness Tympanic Membrane ED: Yes TM's clear Eyes PERRL and EOMs intact bilaterally General Eye ED: Negative for pale conjunctiva or scleral icterus Neck no lymphadenopathy, supple and no JVD General: Negative for tenderness Chest Wall inspection of chest normal and palpation of chest normal Chest: Negative for tenderness Resp normal respiratory effort and clear to auscultation bilaterally Effort and Inspection: Negative for respiratory distress or pain with movement Auscultation: Negative for rhonchi, wheezes or diminished lung sounds Cardio regular rate, regular rhythm, S1 normal heart sound, S2 normal heart sound and no murmurs Peripheral Pulses: pulses 2+ throughout GI normal to inspection, nondistended, normoactive bowel sounds, soft to palpation, non-tender, non-distended and no masses Back/Spine no CVA tenderness and no thoracic nor lumbar tenderness Extremity normal to inspection General Extremety ED: Negative for edema General Extremity: Negative for edema Neuro oriented x3, CN's II-XII intact bilaterally, no sensory deficits noted and gait normal Neuro Narrative: NIH stroke scale is 0. No focal weakness noted. Sensorium / Orientation: awake, alert, oriented to person, oriented to place and oriented to time Motor Exam: strength 5/5 throughout and strength abnormal Psych mental status grossly normal Skin no rashes or lesions noted and no wounds Skin Narrative: Superficial abrasion left knee. MDM MDM MDM Narrative Medical decision making narrative: Presents with a fall of unclear etiology. He denies tripping. No focal deficits on exam. He had recent stroke. His last meal was last evening and he ate some chicken nuggets and some neck and cheese. IV line will be established. Basic labs will be obtained. Will obtain a CT scan of his brain without contrast and will check a urinalysis. CT scan of the brain without contrast showed chronic emotional changes. CBC with differential notably white count 25.6 with hemoglobin of 13.6 and platelet count 295. Chemistries unremarkable. BUN was 12 and creatinine 1.47. Troponin was 18. Urine Alysis positive for nitrites as well as 500 excite esterase and 25-50 WBCs and +4 bacteria. Urine culture ordered. Patient started on Rocephin IV. Case will be discussed with hospitalist to evaluate patient for admission for generalized weakness and UTI with fall. Lab Data Attestation: I reviewed the patient's lab results. Labs: Laboratory Results - last 24 hr 11/02/23 11/02/23 09:50 11:16 WBC 25.6 H RBC 5.06 Hgb 13.6 Hct 42.6 MCV 84.2 MCH 26.9 L MCHC 31.9 L RDW Std Deviation 42.2 RDW Coeff of [place] 13.6 Plt Count 295 MPV 12.2 H Immature Gran % (Auto) 0.600 Neut % (Auto) 90.1 H Lymph % (Auto) 3.3 L [place] % (Auto) 5.4 Eos % (Auto) 0.3 Baso % (Auto) 0.3 Absolute Neuts (auto) 23.0 H Absolute Lymphs (auto) 0.85 Nucleated RBC % 0 Differential Comment SCANNED Sodium 131 L Potassium 4.7 Chloride 98 Carbon Dioxide 25.0 Anion Gap 8 BUN 12 Creatinine 1.47 H Estim Creat Clear Calc 53.60 Est GFR (MDRD) Af Amer 61 Est GFR (MDRD) Non-Af 50 L BUN/Creatinine Ratio 8.2 L Glucose 181 H Calcium 9.3 Troponin I High Sens 18 Urine Color Yellow Urine Clarity Cloudy Urine pH 5.0 Ur Specific [place] 1.020 Urine Protein 100 H Urine Glucose (UA) 1000 H Urine Ketones 5 H Urine Occult Blood 150 H Urine Nitrite Positive H Urine Bilirubin 1 H Urine Urobilinogen 4 H Ur Leukocyte Esterase 500 H Urine RBC 0-5 SEEN Urine WBC 25-50 SEEN Ur Squamous Epith Cells 0-5 SEEN Urine Bacteria 4+ Urine Mucus RARE Radiography Diagnostic Testing: Clinical Impression(s) from Imaging Studies Brain CT 11/02/23 09:33 IMPRESSION: Chronic involutional changes of the brain. Electronically Signed: Juan Jean MD at 10:39 EST , EKG Initial EKG: Attestation: I personally reviewed and interpreted this EKG as follows: Comments: Sinus rhythm with rate of 94 bpm with no acute ST segment changes Discharge Plan Dx/Rx/DC Orders Clinical Impression: Leukocytosis, Weakness, Acute UTI, Fall Disposition Disposition: Acute Care Hospital [facility]
[2023-11-02 10:08] LABS: Absolute Lymphocyte Count 0.85 X10^3/uL (0.83-4.51); Basophil# 0.08 X10^3/uL; Basophil% 0.3 % (0-1); Eosinophil# 0.07 X10^3/uL; Eosinophils% 0.3 % (0-5); Hematocrit 42.6 % (40-54); Hemoglobin 13.6 g/dL (13.0-16.5); Lymphocyte # 0.85 X10^3/ul (0.83-4.51); Lymphocyte % 3.3 % (19-41); Mean Corp Hgb Conc 31.9 g/dL (32-36); Mean Corpuscular Hgb 26.9 pg (27.0-32.0); Mean Corpuscular Volume 84.2 fL (80-94); Mean Platelet Vol. 12.2 fl (6.2-12.0); Monocyte# 1.38 X10^3/uL; Monocyte% 5.4 % (0-10); NRBC Flagged by Analyzer 0 % (0-5); Neutrophil # 23.03 X10^3/uL (2.7-7.7); Neutrophil % 90.1 % (47-70); POSITIVE DIFFERENTIAL YES; POSITIVE MORPHOLOGY YES; Platelet Count 295 K/mm3 (150-450); RBC Distribution Width CV 13.6 % (11.6-14.6); RBC Distribution Width SD 42.2 fl (35.1-43.9); Red Blood Count 5.06 M/mm3 (4.6-6.2); White Blood Count 25.6 K/mm3 (4.4-11.0)
[2023-11-02] MEDS: 0.9% Normal Saline (1000mL) 1,000 ML 150 ML IV (10:11)
[2023-11-02] MEDS: Diphth,Pertuss(Acell),Tet Vac 0.5 ML Vial IM (10:11)
[2023-11-02 10:59] LABS: Differential Indicated SCAN CRITERIA MET
[2023-11-02 11:13] LABS: Anion Gap 8 (5-15); BUN 12 mg/dL (7-18); BUN/Creat Ratio 8.2 RATIO (10-20); Calcium,Total 9.3 mg/dL (8.5-10.1); Chloride 98 mmol/L (98-107); Creatinine, Serum 1.47 mg/dL (0.70-1.30); EST Glomerular Filtration Rate 50 mL/min (>60); Est Glom Filt Rate - Afr Amer 61 mL/min (>60); Glucose 181 mg/dL (74-106); Potassium 4.7 mmol/L (3.5-5.1); Sodium Level 131 mmol/L (136-145); Troponin-I HS 18 pg/mL (3.0-78.0)
[2023-11-02 11:15] LABS: Differential Comment SCANNED
[2023-11-02 11:28] LABS: Color, Urine Yellow (Yellow); Glucose, Dipstick 1000 mg/dl (Normal); Ketone-Dipstick 5 mg/dl (Negative); Leukocyte Esterase-Dipstick 500 /ul (Negative); Nitrite-Dipstick Positive (Negative); Occult Blood-Urine 150 /ul (Negative); Protein-Dipstick 100 mg/dl (Negative); Urine Clarity Cloudy (Clear); Urine Urobilinogen 4 mg/dl (Normal)
[2023-11-02 11:31] LABS: Urine Bilirubin Dipstick 1 mg/dL (Negative)
[2023-11-02 11:37] LABS: Bacteria 4+ /hpf (None Seen); Mucous, Urine RARE /hpf (<or=2+); Red Blood Cells-Urine 0-5 SEEN /hpf (0-5); Squamous Epithelial Cells - UA 0-5 SEEN /hpf (0-5); White Blood Cells 25-50 SEEN /hpf (0-5)
--- NOTE | 2023-11-02 12:01 | HP.PCM.HOS_ITS ---
HPI - General General Date of Admission: 11/02/23 Date of Service: 11/02/23 Chief Complaint: Fall/Weakness HPI Narrative OLGA RODRIGUEZ, is a 68 M who presented to the emergency department at [facility] on 11/02/2023 complaining of a fall and generalized weakness that started on the morning of presentation. He stated yesterday he was in his normal state of health and felt overall well but this morning he woke up and felt fairly weak. He reported he was standing and trying to walk when he just collapsed because his legs gave out on him. He denied any loss of consciousness and injury. He had a stroke in August that resulted in some mild left-sided weakness and swallowing difficulties. He has been following with outpatient speech therapy and his last visit was yesterday. He is currently on a soft thin liquid diet for this. His oral intake has overall been decreased due to his swallowing issues. His indicated that he is may be taking in 6 to 900 adam daily. He denied any fever or chills but did report urinary frequency and a change in the color of his urine. He denied any dysuria. He denied any he maturia. Vital signs on presentation demonstrated temperature is 97.4, heart rate 86, blood pressure 136/67, respiratory was 15 oxygen saturations were 94% on room air. CBC showed a markedly elevated white count at 25.6 with a left shift of 90.1%. His chemistry panel showed mild hyponatremia with a sodium of 131 and serum creatinine elevation with a creatinine of 1.47 (baseline appears to be be tween 0.95 and 1.2.). His glucose was 181. Troponin was 18. UA was performed and showed glucose urea, mild ketones, occult blood, nitrites, and leuk esterase along with white cells and 4+ bacteria. CT of his brain showed no acute changes. Urine culture was sent and the patient was given ceftriaxone and request for admission was made. [facility] Medical History COPD (chronic obstructive pulmonary disease) CPAP (continuous positive airway pressure) dependence Diabetes GERD (gastroesophageal reflux disease) History of diabetes mellitus History of multiple cerebrovascular accidents (CVAs) History of stroke Non-smoker Sleep apnea Slurred speech Stroke-like symptoms Stroke/cerebrovascular accident Home Medications insulin glargine 100 unit/mL (3 mL) subcutaneous pen (Lantus Solostar U-100 Insulin) 50 units subcut QHS DABETES 02/27/15 [History Last Taken 11/01/23] insulin lispro 100 unit/mL subcutaneous pen (Humalog KwikPen (U-100) Insulin) 22 unit subcut TID DIABETES 02/27/15 [History Last Taken 11/01/23] fluticasone fur. 100 mcg-umeclid 62.5 mcg-vilant 25 mcg inhalat.powder (Trelegy Ellipta) 1 inh inhalation DAILY SHORTNESS OF BREATH/WHEEZING 09/05/23 [History Last Taken 11/01/23] omeprazole 20 mg capsule,delayed release 20 mg PO DAILY ACID REFLUX 09/05/23 [History Last Taken 11/01/23] tamsulosin 0.4 mg capsule 0.4 mg PO BID PROSTATE 09/05/23 [History Last Taken 11/01/23] venlafaxine 150 mg capsule,extended release 24 hr 150 mg PO DAILY DEPRESSION 09/05/23 [History Last Taken 11/01/23] atorvastatin 80 mg tablet 80 mg PO QHS CHOLESTEROL #30 tabs 09/07/23 [Rx Last Taken 11/01/23] aspirin 81 mg chewable tablet 81 mg PO DAILY HEART HEALTH 11/02/23 [History Last Taken 11/01/23] canagliflozin 100 mg tablet (Invokana) 100 mg PO DAILY DIABETES 11/02/23 [History Last Taken 11/01/23] dulaglutide 4.5 mg/0.5 mL subcutaneous pen injector (Trulicity) 4.5 mg subcut SA DIABETES 11/02/23 [History Last Taken 10/29/23] Allergy/AdvReac Type Severity Reaction Status Date / Time Penicillins Allergy Intermediate Hives Verified 11/02/23 09:23 Family History Other Alzheimer disease Breast cancer Thyroid cancer Surgical History History of cholecystectomy History of ear surgery Social History (Updated 11/02/23 @ 17:[address] Elizabeth Montalvo DO) household members: spouse housing: house Smoking Status: Former smoker Tobacco: How many years used: 50 how long ago did patient quit smoking: Nov.18,2023 alcohol intake: never substance use type: does not use ROS Constitutional Constitutional: Reports fatigue and weakness; Denies anorexia, change in weight, chills, fever(s), malaise, night sweats or other Eyes Eyes: Denies blurry vision, change in eye color, change in vision, discharge from eye(s), double vision, erythema, eye pain, loss of vision or other ENT HEENT: Reports abnormal hearing and hearing loss; Denies dysphagia, ear pain, epistaxis, headache(s), nasal congestion, nasal discharge, post nasal drip, sinus pressure, sore throat or other Cardiovascular Cardiovascular: Denies chest pain, claudication, dyspnea on exertion, edema, lightheadedness, orthopnea, palpitations, paroxysmal nocturnal dyspnea, rapid heart rate, syncope or other Respiratory/Chest Respiratory/Chest: Denies cough, dyspnea, excessive phlegm production, hemoptysis, productive cough, shortness of breath at rest, shortness of breath with exertion, wheezing or other Gastrointestinal Gastrointestinal: Denies abdominal pain, coffee ground emesis, constipation, diarrhea, dyspepsia, hematemesis, hematochezia, loose stools, melena, nausea, vomiting or other Genitourinary Genitourinary: Reports urinary frequency, urinary urgency and other Details: Change in color Neurologic Neurologic: Reports other Details: Chronic left-sided weakness due to history of stroke, swallowing issues related to stroke-chronic Psychiatric Psychiatric: Reports depression; Denies anxiety, homicidal ideation, suicidal ideation or other Endocrine Endocrinology: Denies change in body appearance, cold intolerance, excessive sweating, heat intolerance, polydipsia, polyuria or other Hematologic/Lymphatic Hematologic/Lymphatic: Denies anemia, easy bleeding, easy bruising, lymphadenopathy or other Allergic/Immunologic Allergic/Immunologic: Denies rhinitis, hives, eczemia, asthma or other Vital Signs Vital Signs Vital Signs: 11/02/23 09:21 11/02/23 09:25 11/02/23 11:20 Temperature 97.4 F L Temperature Source Temporal Pulse Rate 103 H 86 Respiratory Rate 15 14 Respiratory Pattern Normal Blood Pressure 136/67 H 169/83 H Blood Pressure Mean 90 111 Pulse Ox 94 96 Oxygen Delivery Method Room Air Room Air 11/02/23 11:53 11/02/23 11:54 Temperature 97.3 F L Temperature Source Oral Pulse Rate 88 88 Respiratory Rate 30 H 30 H Respiratory Pattern Blood Pressure 155/81 H 155/81 H Blood Pressure Mean 105 105 Pulse Ox 94 94 Oxygen Delivery Method Room Air Weight Weight: 101.6 kg Body Mass Index (BMI) 29.5 Physical Exam Const alert, oriented x3, no apparent distress and well nourished Constitutional Narrative: Overweight, upper middle-aged, white male, lying in bed, watching television, appears comfortable and nontoxic General Appearance: cooperative HEENT normocephalic, head/scalp atraumatic and moist oral mucous membranes HEENT Narrative: Moderate hearing loss, Mallampati 3, no thrush, dentition is fair for age Eyes PERRL, EOMs intact bilaterally and conjunctivae normal Eyes Narrative: No scleral icterus Neck no lymphadenopathy, supple, no JVD and no carotid bruits Neck Narrative: Trachea midline, no thyroid enlargement Resp normal respiratory effort, no retractions, no use of accessory muscles and clear to auscultation bilaterally Auscultation: Negative for rales, rhonchi or wheezes Cardio regular rate, regular rhythm, S1 normal heart sound, S2 normal heart sound, no murmurs, no rub, no gallops and no clicks GI normal to inspection, nondistended, normoactive bowel sounds, soft to palpation and non-tender Extremity no clubbing, cyanosis or edema Extremity Narrative: Pedal pulses are 2+ Skin no rashes or lesions noted, no wounds, skin turgor normal, no jaundice, no petechiae and no mottling Neuro oriented x3 and moves all extremities Neuro Narrative: Mild left-sided weakness noted on exam Speech: speech normal Psych affect normal Psych Narrative: Eye contact is good, patient is very pleasant and interacts normally with stable mood Results Lab / Micro Data 11/02/23 09:50 11/02/23 09:50 Labs: Laboratory Results - last 24 hr 11/02/23 09:50: WBC 25.6 H, RBC 5.06, Hgb 13.6, Hct 42.6, MCV 84.2, MCH 26.9 L, MCHC 31.9 L, RDW Std Deviation 42.2, RDW Coeff of [place] 13.6, Plt Count 295, MPV 12.2 H, Immature Gran % (Auto) 0.600, Neut % (Auto) 90.1 H, Lymph % (Auto) 3.3 L , Day % (Auto) 5.4, Eos % (Auto) 0.3, Baso % (Auto) 0.3, Absolute Neuts (auto) 23.0 H, Absolute Lymphs (auto) 0.85, Nucleated RBC % 0, Differential Comment SCANNED, Sodium 131 L, Potassium 4.7, Chloride 98, Carbon Dioxide 25.0, Anion Gap 8, BUN 12, Creatinine 1.47 H, Estim Creat Clear Calc 53.60, Est GFR (MDRD) Af Amer 61, Est GFR (MDRD) Non-Af 50 L, BUN/Creatinine Ratio 8.2 L, Glucose 181 H, Calcium 9.3, Troponin I High Sens 18 11/02/23 11:16: Urine Color Yellow, Urine Clarity Cloudy, Urine pH 5.0, Ur Specific [place] 1.020, Urine Protein 100 H, Urine Glucose (UA) 1000 H, Urine Ketones 5 H, Urine Occult Blood 150 H, Urine Nitrite Positive H, Urine Bilirubin 1 H, Urine Urobilinogen 4 H, Ur Leukocyte Esterase 500 H, Urine RBC 0-5 SEEN, Urine WBC 25-50 SEEN, Ur Squamous Epith Cells 0-5 SEEN, Urine Bacteria 4+, Urine Mucus RARE Micro: Microbiology 11/02/23 11:16 Nasal Secretion SARS-CoV-2 & FLU Antigen (Rapid) - Final Imagaing Radiology Impression Brain CT 11/02/23 09:33 IMPRESSION: Chronic involutional changes of the brain. Electronically Signed: Juan Jean MD at 10:39 EST Reading Location ID and State: [address] [place] [address] , Service support , Assessment & Plan Assessment/Plan (1) Acute UTI: (2) Fall: (3) Weakness: (4) Leukocytosis: (5) Dehydration: (6) Elevated serum creatinine: (7) Dysphagia: PLAN: Plan Acute urinary tract infection -UA consistent with infection -Culture sent -Start ceftriaxone and await culture and sensitivities Mild serum creatinine elevation due to dehydration -Baseline serum creatinine appears to be between 0.95 and 1.2 -Serum creatinine on admission was 1.46 -Gentle hydration -Repeat BMP in a.m. Leukocytosis -Marked elevation at greater than 25,000 -Likely due to UTI -Repeat CBC in a.m. -Antibiotics as above Dysphagia -Patient is following with outpatient speech therapy -Current recommend diet is soft with thin liquids per most recent documentation on 10/25/2023 -Will continue this diet for now -Speech therapy consultation Generalized weakness -Anticipate related to acute illness and hopefully will improve UTI gets treated -PT/speech therapy consultation -Case management/social work consultation for discharge planning Recent stroke -Continue risk factor modification -PT/OT -Residual mild left-sided weakness -Patient feels he is at his baseline -Continue aspirin Hyperlipidemia -Continue home atorvastatin DM-2 -Hold home Trulicity -Continue canagliflozin -Continue home basal and prandial insulin -SSI -Accu-Cheks as ordered -Most recent hemoglobin A1c on 09/06/2023 was 9.6 -Recommend improved glycemic control for stroke prevention/prevention of complications related to diabetes GERD -Continue home PPI BPH with obstruction -Continue home Flomax History of COPD -Continue home inhaler CALLI -Continue home CPAP DVT prophylaxis -Lovenox subcu 40 mg daily CODE STATUS -DNR CCA okay for short-term intubation as verified with patient on presentation Charges/Coding Visit Charges Inpatient E&M: 10055 Init Hosp L2
[2023-11-02] MEDS: Ceftriaxone 1 GM/50 ML BAG IV (12:23)
--- NOTE | 2023-11-02 12:52 | NURSING ---
MED SURG JAKE WEAKNESS, FALL, UTI
[2023-11-02] MEDS: 0.9% Normal Saline (1000mL) 1,000 ML 100 ML IV (16:33)
[2023-11-02] MEDS: Tamsulosin HCl 0.4 MG Capsule PO (16:38)
[2023-11-02] MEDS: Glucerna Shake 120 ML LIQUID PO (17:08)
[2023-11-02] MEDS: Insulin Lispro 100 UNIT/ML INSULN.PEN 22 UNIT SC (17:10)
[2023-11-02 18:01] LABS: Bedside Glucose 156 mg/dL (74-106)
[2023-11-02] MEDS: Insulin Glargine-YFGN 100 UNIT/ML Pen 50 UNIT SC (21:52)
[2023-11-02] MEDS: Atorvastatin Calcium 80 MG Tablet PO (21:52)
--- NOTE | 2023-11-02 22:30 | CPS ---
Patient refused PAP therapy for the night.
[2023-11-03] MEDS: 0.9% Normal Saline (1000mL) 1,000 ML 100 ML IV ×3 (02:19→22:03)
[2023-11-03 02:22] VITALS: BP 131/70; PULSE 92; RESP 16; TEMP 37.2; O2SAT 94
[2023-11-03 02:29] LABS: Bedside Glucose 123 mg/dL (74-106)
[2023-11-03 07:44] LABS: Absolute Lymphocyte Count 0.92 X10^3/uL (0.83-4.51); Absolute Neutrophil Count 17.5 X10^3/uL (2.0-7.7); Basophil# 0.05 X10^3/uL; Basophil% 0.3 % (0-1); Eosinophil# 0.11 X10^3/uL; Eosinophils% 0.6 % (0-5); Hematocrit 37.7 % (40-54); Hemoglobin 11.8 g/dL (13.0-16.5); Lymphocyte # 0.92 X10^3/ul (0.83-4.51); Lymphocyte % 4.7 % (19-41); Mean Corp Hgb Conc 31.3 g/dL (32-36); Mean Corpuscular Hgb 26.7 pg (27.0-32.0); Mean Corpuscular Volume 85.3 fL (80-94); Mean Platelet Vol. 12.6 fl (6.2-12.0); Monocyte# 0.84 X10^3/uL; Monocyte% 4.3 % (0-10); NRBC Flagged by Analyzer 0 % (0-5); Neutrophil # 17.46 X10^3/uL (2.7-7.7); Neutrophil % 89.4 % (47-70); Platelet Count 242 K/mm3 (150-450); RBC Distribution Width CV 13.7 % (11.6-14.6); RBC Distribution Width SD 42.8 fl (35.1-43.9); Red Blood Count 4.42 M/mm3 (4.6-6.2); White Blood Count 19.5 K/mm3 (4.4-11.0)
[2023-11-03 08:18] LABS: ALB/GLOB Ratio 0.4 RATIO (0.9-2.4); AST(SGOT) 120 U/L (15-37); Alanine Aminotransfer ALT/SGPT 114 U/L (16-61); Alkaline Phosphatase 607 U/L (45-117); Anion Gap 9 (5-15); BUN 11 mg/dL (7-18); BUN/Creat Ratio 9.7 RATIO (10-20); Calcium,Total 8.7 mg/dL (8.5-10.1); Chloride 105 mmol/L (98-107); Creatinine, Serum 1.13 mg/dL (0.70-1.30); EST Glomerular Filtration Rate 68 mL/min (>60); Est Glom Filt Rate - Afr Amer 83 mL/min (>60); Estimated Creatinine Clearance 69.73 ml/min; Globulin 5.4 g/dL (2.2-4.2); Glucose 61 mg/dL (74-106); Magnesium 2.5 mg/dL (1.6-2.6); Phosphorus 2.8 mg/dL (2.5-4.9); Potassium 3.6 mmol/L (3.5-5.1); Protein, Total 7.4 g/dL (6.4-8.2); Sodium Level 137 mmol/L (136-145)
--- NOTE | 2023-11-03 08:34 | US_ITS ---
STUDY: ABDOMINAL ULTRASOUND - RIGHT UPPER QUADRANT REASON FOR VISIT: Male, 68 years old transaminitis TECHNIQUE: Ultrasound evaluation of the right upper quadrant was performed with real-time and static falcon-scale imaging. TECHNICAL QUALITY: Adequate. COMPARISON: None. FINDINGS: Liver: The liver measures 18.7 cm. There is increased echogenicity consistent with fatty infiltration. The bile ducts are within normal limits. There is hepatic color flow. The direction of portal flow is hepatopetal. There is no demonstrated mass lesion. Gallbladder: Normal distended gallbladder. The gallbladder wall measures 2 mm. There is a negative sonographic Hagan''s sign. There is no pericholecystic fluid. There are no gallstones. Common Bile Duct (C.B.D.): The common bile duct measures 17 mm. Pancreas: There is nonvisualization of the pancreas. st. Right Kidney: Normal size of the right kidney. The right kidney measures 10.2 cm. Normal renal cortex. The right cortex measures 1.1 cm. There is no demonstrated renal mass or cyst. There is no right hydronephrosis. US/Abdomen Limited IMPRESSION: 1. Fatty infiltration of the liver. 2. Extrahepatic biliary ductal dilatation or possibly choledochal cyst. MRCP would be useful. Electronically Signed: Bonifacio Su MD at 21:39 EST ,
[2023-11-03 09:03] VITALS: BP 136/67; PULSE 82; RESP 18; TEMP 36.5; O2SAT 95
[2023-11-03] MEDS: Ceftriaxone 1 GM/50 ML BAG IV (09:11)
[2023-11-03] MEDS: Enoxaparin 40 MG/0.4 ML Syringe SC (09:12)
[2023-11-03] MEDS: Empagliflozin 10 MG Tablet PO (09:13)
[2023-11-03] MEDS: Pantoprazole Sodium 20 MG Tablet PO (09:17)
[2023-11-03] MEDS: Tamsulosin HCl 0.4 MG Capsule PO ×2 (09:17→17:47)
[2023-11-03 09:38] LABS: GGTP 817 U/L (15-85)
[2023-11-03 09:42] LABS: Bedside Glucose 80 mg/dL (74-106)
[2023-11-03 09:42] LABS: Bedside Glucose 65 mg/dL (74-106)
--- NOTE | 2023-11-03 11:00 | NURSING ---
pt in chair reading newspaper, requesting vitals be deferred until he is done reading newpaper.
[2023-11-03 11:55] VITALS: BP 122/60; BP 122/62; BP 129/58; PULSE 100; PULSE 85; PULSE 87
[2023-11-03 12:22] LABS: Bedside Glucose 159 mg/dL (74-106)
--- NOTE | 2023-11-03 13:32 | PCM.PN.HOSP ---
Reason for Visit Reason for Visit: Fall/generalized weakness Subjective Subjective Patient denies any current issues. Still feeling fairly weak. is at the bedside and concerned that she will not be able to take him home. I encouraged her to let see how he does with treatment and therapy and then we can make more decisions after that and she voices understanding. She is also concerned that maybe his symptoms are related to his canagliflozin which was recently started for his diabetes. His glycemic control is much improved but she states he has been symptomatic since that point in time. I did discuss with them that his liver enzymes were elevated and were going to get an ultrasound of his right upper quadrant to take a better look. Patient denies any right upper quadrant abdominal pain or nausea/vomiting. Objective Data Objective Data Vital Signs: Vital Signs Temp Pulse Resp BP Pulse Ox O2 Del Method 97.7 F L 85 18 129/58 H 95 Room Air 11/03/23 09:03 11/03/23 11:55 11/03/23 09:03 11/03/23 11:55 11/03/23 09:03 11/03/23 09:03 Oxygen Delivery Method Room Air Weight: 96.706 kg Body Mass Index (BMI) 28.1 Intake & Output: Intake and Output for Last 24 Hours 11/01/23 11/02/23 11/03/23 23:59 23:59 23:59 Intake Total 985 / 985 1938.34 / 1938.34 Output Total 100 / 100 Balance 885 / 885 1938.34 / 1938.34 Medical Nutrition Assessment Dietitian: Malnutrition Criteria Met Start: 11/03/23 11:31 Freq: Status: Active Protocol: Document 11/03/23 11:55 (Rec: 11/03/23 11:55 [id number]) Nutrition Malnutrition Evidence of Malnutrition Exists Yes Malnutrition (severe): Chronic Evidenced By Suboptimal Energy Intake ( Severe),Weight Loss (Severe) Clinical Problem Chronic Disease or Condition Related Malnutrition Etiology severe, chronic malnutrition related to inadequate energy intake d/t swallowing difficulty after stroke Signs/Symptoms as evidenced by unintentional wt loss of 17#/7% x 2 months, estimated PO intake meeting < 75% of estimated energy needs > 1 month Status Active Problem Recommendation Dietitian Recommendations/Changes cardiac, 2000 calorie controlled diet- texture/ consistency per S[employer]IOR SYSTEM[employer] PROGRAMMER (currently soft and bite sized, thin liquids) glucerna 120mL 4x/day w/ medpass given evidence of malnutrition. Lab / Micro Data 11/03/23 06:38 11/03/23 06:38 Labs: Laboratory Results - last 24 hr 11/02/23 16:32: POC Glucose 156 H 11/02/23 21:51: POC Glucose 123 H 11/03/23 06:38: WBC 19.5 H, RBC 4.42 L, Hgb 11.8 L, Hct 37.7 L, MCV 85.3, MCH 26.7 L, MCHC 31.3 L, RDW Std Deviation 42.8, RDW Coeff of Shoshana 13.7, Plt Count 242, MPV 12.6 H, Immature Gran % (Auto) 0.700, Neut % (Auto) 89.4 H, Lymph % (Auto) 4.7 L, [place] % (Auto) 4.3, Eos % (Auto) 0.6, Baso % (Auto) 0.3, Absolute Neuts (auto) 17.5 H, Absolute Lymphs (auto) 0.92, Nucleated RBC % 0, Sodium 137, Potassium 3.6, Chloride 105, Carbon Dioxide 23.0, Anion Gap 9, BUN 11, Creatinine 1.13, Estim Creat Clear Calc 69.73, Est GFR (MDRD) Af Amer 83, Est GFR (MDRD) Non-Af 68, BUN/Creatinine Ratio 9.7 L, Glucose 61 L, Calcium 8.7, Phosphorus 2.8, Magnesium 2.5, Total Bilirubin 1.40 H, GGT 817 H, AST 120 H, ALT 114 H, Alkaline Phosphatase 607 H, Total Protein 7.4, Albumin 2.0 L, Globulin 5.4 H, Albumin/Globulin Ratio 0.4 L 11/03/23 08:56: POC Glucose 65 L 11/03/23 09:24: POC Glucose 80 11/03/23 11:45: POC Glucose 159 H Micro: Microbiology 11/02/23 11:16 Urine, Clean Catch Urine Culture - Preliminary Presumptive E. coli 11/02/23 11:16 Nasal Secretion SARS-CoV-2 & FLU Antigen (Rapid) - Final Physical Exam Const alert, oriented x3, no apparent distress and well nourished Constitutional Narrative: Overweight, upper middle-aged, white male, lying in bed, is at the bedside, appears comfortable and nontoxic General Appearance: cooperative HEENT normocephalic, head/scalp atraumatic and moist oral mucous membranes HEENT Narrative: Mallampati 3, no thrush Resp normal respiratory effort, no retractions, no use of accessory muscles and clear to auscultation bilaterally Resp Narrative: Few crackles in right base that improved with deep breathing and therefore suspect atelectasis Auscultation: crackles; Negative for rhonchi or wheezes Cardio regular rate, regular rhythm, S1 normal heart sound, S2 normal heart sound, no murmurs, no rub, no gallops and no clicks GI normal to inspection, nondistended, normoactive bowel sounds, soft to palpation and non-tender Extremity no clubbing, cyanosis or edema Extremity Narrative: Pedal pulses are 2+ Neuro oriented x3 and moves all extremities Neuro Narrative: Mild left-sided weakness noted on exam Speech: speech normal Psych affect normal Psych Narrative: Eye contact is good, patient is very pleasant and interacts normally with stable mood Assessment & Plan Assessment/Plan (1) Acute UTI: (2) Fall: (3) Weakness: (4) Leukocytosis: (5) Dehydration: (6) Elevated serum creatinine: (7) Dysphagia: (8) Transaminitis: (9) Elevated alkaline phosphatase level: (10) Hyperbilirubinemia: PLAN: Plan E. coli acute urinary tract infection -UA consistent with infection -Culture showing E. coli -With liver enzyme elevations will stop ceftriaxone and placed on ciprofloxacin Transaminitis/elevated alk phos/hyperbilirubinemia -Transaminitis is mild however alk phos is markedly elevated at 607 -GGT is markedly elevated at 817 -Check right upper quadrant ultrasound -May need MRCP -Total bilirubin is elevated at 1.4 -No recent baseline for comparison available -canagliflozin does not appear to cause any liver dysfunction or biliary dysfunction Mild serum creatinine elevation due to dehydration -Resolved -Baseline serum creatinine appears to be between 0.95 and 1.2 -Serum creatinine on admission was 1.46 -Serum creatinine down to 1.13 today -Discontinue IV fluids -Repeat BMP in a.m. Leukocytosis -Marked elevation at greater than 25,000 on admission but now trending down and was 19.5 -Likely due to UTI -Repeat CBC in a.m. -Antibiotics as above Dysphagia -Patient is following with outpatient speech therapy -Current recommend diet is soft with thin liquids per most recent documentation on 10/25/2023 -Will continue this diet for now -Speech therapy is following Generalized weakness -Anticipate related to acute illness and hopefully will improve UTI gets treated -PT/OT/speech therapy following -Case management/social work consultation for discharge planning -Unclear yet what ultimate needs will be -Orthostatic vitals are negative Recent stroke -Continue risk factor modification -PT/OT -Residual mild left-sided weakness -Patient feels he is at his baseline -Continue aspirin Hyperlipidemia -Continue home atorvastatin DM-2 -Hold home Trulicity -Continue canagliflozin -Continue home basal and prandial insulin -SSI -Accu-Cheks as ordered -Most recent hemoglobin A1c on 09/06/2023 was 9.6 -Recommend improved glycemic control for stroke prevention/prevention of complications related to diabetes GERD -Continue home PPI BPH with obstruction -Continue home Flomax History of COPD -Continue home inhaler CALLI -Continue home CPAP DVT prophylaxis -Lovenox subcu 40 mg daily CODE STATUS -DNR CCA okay for short-term intubation as verified with patient on presentation Charges/Coding Visit Charges Inpatient E&M: 15194 Subs Hosp L2
[2023-11-03 15:10] VITALS: BP 110/53; PULSE 82; RESP 18; TEMP 36.8; O2SAT 94
--- NOTE | 2023-11-03 16:50 | CASEMGMT ---
RN?CM?TEMPORARY HELP AGENCY REFERRAL CLERK?CM?to room to meet with patient for initial transition planning/care coordination?assessment.?RN?CM?introduced self and role at [facility].? Pt voices understanding and consents to?assessment?at this time.? Pt resting in bed in no distress at this time.? at bedside. Pt is A/O at this time and answers all questions appropriately.?? Care providers, pharmacy, and demographics verified/updated at this time. PCP: Dr Markham Specialists:Dr Church-urology, Dr Kaiser- ENT, Dr Rothman-derm Preferred Pharmacy: [facility] [place] Insurance:[facility], MMO Prescription Benefit:?Yes LNOK: , Kary. Brother, Tj Living Arrangements: Lives w/his in one-story home w/1 step to enter. Indep w/ADL's. assists w/managing meds and does home mgnt tasks. Transportation:?Pt states drives self and states no transportation concerns at this time.? also drives. DME: States has the following DME:?rollator, CPAP, functioning glucometer w/supplies. ?Pt and state no need for further DME at this time.? HHC/SNF: Pt has been to [facility] in 2015. He has not had HHC in the past. OP Therapy: Pt currently active @ [facility] for OP PT and ST. states she will take care of cancelling any appts, as needed. Discussed discharge planning. Pt states he prefers to be able to go home. states she feels pt is so weak that she is unable to manage him @ home. Pt reluctant initially, but states if therapy recommends him going to SNF, that he would be agreeable to [facility]. They decline list of other SNF options. They are aware therapy evals pending and SW or CM will f/u once recommendations are made. RN FELIX did discuss [facility]'s 3 MN In-pt rule for SNF. PLAN:??TBD by progress w/therapy. Jackeline BSN?RN?CM
[2023-11-03] MEDS: 0.9% Saline Lock 10 ML Syringe IV (17:24)
[2023-11-03 17:26] LABS: Bedside Glucose 99 mg/dL (74-106)
[2023-11-03] MEDS: Aspirin 81 MG TAB.CHEW PO (17:46)
[2023-11-03] MEDS: Venlafaxine XR 150 MG Capsule PO (17:47)
[2023-11-03 20:41] VITALS: BP 126/58; PULSE 72; RESP 16; TEMP 37.1; O2SAT 98
[2023-11-03] MEDS: Ciprofloxacin 400 MG/200 ML BAG 200 MG IV (22:00)
[2023-11-03] MEDS: Atorvastatin Calcium 80 MG Tablet PO (22:02)
[2023-11-03] MEDS: Insulin Glargine-YFGN 100 UNIT/ML Pen 50 UNIT SC (22:02)
[2023-11-03 22:30] LABS: Bedside Glucose 166 mg/dL (74-106)
--- NOTE | 2023-11-03 23:00 | CON.PCM.GI_ITS ---
HPI Consult Data Date of Consult: 11/03/23 HPI Narrative Reason for Consultation: cholestatic hepatitis and jaundice HPI Narrative: OLGA RODRIGUEZ, is a 68 M who presents emergency department after sustaining a fall this morning. He had a stroke in August that resulted in some mild left- sided weakness and swallowing difficulties. He has been following with outpatient speech therapy and his last visit was yesterday. He is currently on a soft thin liquid diet for this. His oral intake has overall been decreased due to his swallowing issues. He has a past medical history of insulin- dependent diabetes mellitus, gas/reflux disease, BPH, mild depression and hypercholesterolemia. He was recently started on canagliflozin, aspirin and a statin. He states that he was standing and trying to walk when he just collapsed. Denies losing consciousness. He had a stroke a few months ago and has had difficulty swallowing since that time and may be some mild left-sided weakness related to that. Patient thought maybe he had another stroke causing the collapse. He denies headache. Denies neck pain. Denies recent illness although he has had some increased urinary frequency. Denies dysuria. Denies fevers. I was asked to see him due to increasing LFTs and an abnormal ultrasound. His bilirubin was 0.8 and went up to 1.6. His alkaline phosphatase was normal at 100 and went up to 584. GGT was 800. His AST and ALT were 120 and 200 respectively. He has no history of chronic viral or nonviral high this. He got an ultrasound of his abdomen that it showed a common bile duct diameter of 1.7 cm with a gallbladder present without stones and 2 mm gallbladder wall thickness. I requested a CT scan abdomen pelvis which had shown cystic structure near the head and neck and of the pancreas along with mildly dilated pancreatic duct at 0.4 mm and dilated common bile duct to 1.5 cm. He had been having some right upper quadrant pain in the past but it has been intermittent and he blamed it on his new medications. [facility] Medical History (Updated 11/04/23 @ 11:[address] Elizabeth Montalvo DO) COPD (chronic obstructive pulmonary disease) CPAP (continuous positive airway pressure) dependence Diabetes GERD (gastroesophageal reflux disease) History of diabetes mellitus History of multiple cerebrovascular accidents (CVAs) History of stroke Non-smoker Sleep apnea Slurred speech Stroke-like symptoms Stroke/cerebrovascular accident Home Medications insulin glargine 100 unit/mL (3 mL) subcutaneous pen (Lantus Solostar U-100 Insulin) 50 units subcut QHS DABETES 02/27/15 [History Last Taken 11/01/23] insulin lispro 100 unit/mL subcutaneous pen (Humalog KwikPen (U-100) Insulin) 22 unit subcut TID DIABETES 02/27/15 [History Last Taken 11/01/23] fluticasone fur. 100 mcg-umeclid 62.5 mcg-vilant 25 mcg inhalat.powder (Trelegy Ellipta) 1 inh inhalation DAILY SHORTNESS OF BREATH/WHEEZING 09/05/23 [History Last Taken 11/01/23] omeprazole 20 mg capsule,delayed release 20 mg PO DAILY ACID REFLUX 09/05/23 [History Last Taken 11/01/23] tamsulosin 0.4 mg capsule 0.4 mg PO BID PROSTATE 09/05/23 [History Last Taken 11/01/23] venlafaxine 150 mg capsule,extended release 24 hr 150 mg PO DAILY DEPRESSION 09/05/23 [History Last Taken 11/01/23] atorvastatin 80 mg tablet 80 mg PO QHS CHOLESTEROL #30 tabs 09/07/23 [Rx Last Taken 11/01/23] aspirin 81 mg chewable tablet 81 mg PO DAILY HEART HEALTH 11/02/23 [History Last Taken 11/01/23] canagliflozin 100 mg tablet (Invokana) 100 mg PO DAILY DIABETES 11/02/23 [History Last Taken 11/01/23] dulaglutide 4.5 mg/0.5 mL subcutaneous pen injector (Trulicity) 4.5 mg subcut SA DIABETES 11/02/23 [History Last Taken 10/29/23] Allergy/AdvReac Type Severity Reaction Status Date / Time Penicillins Allergy Intermediate Hives Verified 11/02/23 09:23 Family History Other Alzheimer disease Breast cancer Thyroid cancer Surgical History (Updated 11/04/23 @ 10:30 by Angi Burt) History of ear surgery Social History (Updated 11/02/23 @ 17:[address] Elizabeth Montalvo DO) household members: spouse housing: house Smoking Status: Former smoker Tobacco: How many years used: 50 how long ago did patient quit smoking: alcohol intake: never substance use type: does not use ROS Constitutional Constitutional: Reports fatigue and weakness; Denies anorexia, change in weight, chills, fever(s), malaise, night sweats or other Eyes Eyes: Denies blurry vision, change in eye color, change in vision, discharge from eye(s), double vision, erythema, eye pain, loss of vision or other ENT HEENT: Reports abnormal hearing and hearing loss; Denies dysphagia, ear pain, epistaxis, headache(s), nasal congestion, nasal discharge, post nasal drip, sinus pressure, sore throat or other Cardiovascular Cardiovascular: Denies chest pain, claudication, dyspnea on exertion, edema, lightheadedness, orthopnea, palpitations, paroxysmal nocturnal dyspnea, rapid heart rate, syncope or other Respiratory/Chest Respiratory/Chest: Denies cough, dyspnea, excessive phlegm production, hemoptysis, productive cough, shortness of breath at rest, shortness of breath with exertion, wheezing or other Gastrointestinal Gastrointestinal: Denies abdominal pain, coffee ground emesis, constipation, diarrhea, dyspepsia, hematemesis, hematochezia, loose stools, melena, nausea, vomiting or other Genitourinary Genitourinary: Reports urinary frequency, urinary urgency and other Details: Change in color Neurologic Neurologic: Reports other Details: Chronic left-sided weakness due to history of stroke, swallowing issues related to stroke-chronic Psychiatric Psychiatric: Reports depression; Denies anxiety, homicidal ideation, suicidal ideation or other Endocrine Endocrinology: Denies change in body appearance, cold intolerance, excessive sweating, heat intolerance, polydipsia, polyuria or other Hematologic/Lymphatic Hematologic/Lymphatic: Denies anemia, easy bleeding, easy bruising, lymphadenopathy or other Allergic/Immunologic Allergic/Immunologic: Denies rhinitis, hives, eczemia, asthma or other Physical Exam Const alert, oriented x3, no apparent distress and well nourished General Appearance: cooperative HEENT normocephalic, head/scalp atraumatic and moist oral mucous membranes Eyes PERRL, EOMs intact bilaterally and conjunctivae normal Eyes Narrative: No scleral icterus Neck no lymphadenopathy, supple, no JVD and no carotid bruits Neck Narrative: Trachea midline, no thyroid enlargement Resp normal respiratory effort, no retractions, no use of accessory muscles and clear to auscultation bilaterally Auscultation: Negative for rales, rhonchi or wheezes Cardio regular rate, regular rhythm, S1 normal heart sound, S2 normal heart sound, no murmurs, no rub, no gallops and no clicks GI normal to inspection, nondistended, normoactive bowel sounds, soft to palpation and non-tender Extremity no clubbing, cyanosis or edema Extremity Narrative: Pedal pulses are 2+ Skin no rashes or lesions noted, no wounds, skin turgor normal, no jaundice, no petechiae and no mottling Neuro oriented x3 and moves all extremities Neuro Narrative: Mild left-sided weakness noted on exam Speech: speech normal Psych affect normal Psych Narrative: Eye contact is good, patient is very pleasant and interacts normally with stable mood Medical Records Data Medical Nutrition Assessment Dietitian: Malnutrition Criteria Met Start: 11/03/23 11:31 Freq: Status: Active Protocol: Document 11/03/23 11:55 AG (Rec: 11/03/23 11:55 [id number]) Nutrition Malnutrition Evidence of Malnutrition Exists Yes Malnutrition (severe): Chronic Evidenced By Suboptimal Energy Intake ( Severe),Weight Loss (Severe) Clinical Problem Chronic Disease or Condition Related Malnutrition Etiology severe, chronic malnutrition related to inadequate energy intake d/t swallowing difficulty after stroke Signs/Symptoms as evidenced by unintentional wt loss of 17#/7% x 2 months, estimated PO intake meeting < 75% of estimated energy needs > 1 month Status Active Problem Recommendation Dietitian Recommendations/Changes cardiac, 2000 calorie controlled diet- texture/ consistency per MOUNTED POLICE OFFICER (currently soft and bite sized, thin liquids) glucerna 120mL 4x/day w/ medpass given evidence of malnutrition. Lab / Micro Data 11/04/23 06:41 11/04/23 06:41 Labs: Laboratory Results - last 24 hr 11/03/23 17:09: POC Glucose 99 11/03/23 21:59: POC Glucose 166 H 11/04/23 06:16: POC Glucose 95 11/04/23 06:41: WBC 13.3 H, RBC 4.30 L, Hgb 11.3 L, Hct 37.4 L, MCV 87.0, MCH 26.3 L, MCHC 30.2 L, RDW Std Deviation 43.4, RDW Coeff of Shoshana 13.7, Plt Count 226, MPV 12.8 H, Immature Gran % (Auto) 0.500, Neut % (Auto) 79.5 H, Lymph % (Auto) 8.7 L, [place] % (Auto) 7.4, Eos % (Auto) 3.5, Baso % (Auto) 0.4, Absolute Neuts (auto) 10.6 H, Absolute Lymphs (auto) 1.15, Nucleated RBC % 0, Sodium 138, Potassium 4.2, Chloride 106, Carbon Dioxide 26.0, Anion Gap 6, BUN 13, Creatinine 1.18, Estim Creat Clear Calc 66.77, Est GFR (MDRD) Af Amer 79, Est GFR (MDRD) Non-Af 65, BUN/Creatinine Ratio 11.0, Glucose 87, Hemoglobin A1c 8.6 H, Calcium 8.8, Total Bilirubin 1.10 H, AST 107 H, ALT 101 H, Alkaline Phosphatase 584 H, Total Protein 6.9, Albumin 1.7 L, Globulin 5.2 H, Albumin/Globulin Ratio 0.3 L 11/04/23 11:24: POC Glucose 101 Micro: Microbiology 11/02/23 11:16 Urine, Clean Catch Urine Culture - Final Presumptive E. coli Imagaing Radiology Impression Abdomen Ultrasound 11/03/23 08:34 IMPRESSION: 1. Fatty infiltration of the liver. 2. Extrahepatic biliary ductal dilatation or possibly choledochal cyst. MRCP would be useful. Electronically Signed: Bonifacio Su MD at 21:39 EST , Abdomen/Pelvis CT 11/04/23 07:11 IMPRESSION: 1. Distended biliary tree without discrete evidence of an obstructing stone or mass. 2. Minimal pericholecystic fluid of uncertain significance. 3. 14 mm cyst within the pancreatic neck. RECOMMENDATIONS: MR/MRCP Electronically Signed: Ge Oliver MD at 8:17 EST , MRCP 11/04/23 08:53 IMPRESSION: Diffuse dilation of the intrahepatic and extra hepatic bile ducts. Lower common duct filling defect, probable choledocholithiasis. Electronically Signed: Mingo Noland MD ([place]) at 12:52 EST Reading Location ID and State: [place] , Service support , Assessment & Plan Assessment/Plan (1) Common bile duct dilation: (2) Hyperbilirubinemia: (3) Elevated alkaline phosphatase level: (4) Transaminitis: PLAN: Plan 59-year-old, past medical history of diabetes this is post recent CVA a with esophageal dysphagia presents status post fall and discovered to have increased LFTs. He fell onto his knees and not to his abdomen. His imaging does show ductal dilation and specifically double duct sign which is suspicious for underlying stricture, choledocholithiasis or tumor. He agreed to undergo ERCP with evaluation of his hepatobiliary system and possible stent placement, biopsy and stone removal. Explained alternatives, risk, benefits include not wi thstanding bleeding, infection, sepsis, perforation, and post ERCP pancreatitis. He will have an ASA of 3 for the procedure. Charges/Coding Visit Charges Inpatient E&M: 03092 Init Hosp L3
[2023-11-04] VITALS (11 sets, daily range): BP systolic 98–148; BP diastolic 48–76; PULSE 66–91; RESP 16–18; TEMP 36.3–37.1; O2SAT 93–100; BMI 28.1
--- NOTE | 2023-11-04 | FLU_PTH ---
PATIENT: OLGA RODRIGUEZ LOC: MS3 U#:[id number] AGE/SX: 68/M [place] [facility] [place]: Dr. Elizabeth Montalvo DO : 1955 BED: 1 DIS: 11/05/2023 SPEC #: [id number] RECD: 11/04/23 14:28 STATUS: SOUT REQ #: [id number] [place]: 11/04/23 00:[address]: Ronnie Hannon DEPT: CYTOLOGY RECD BY: Darrion Main ENTERED: 11/07/23 09:29 SP TYPE: Fluid OTHR DR: DO Dr. Tommy Forrester MD Tissues: A - Biliary tract, NOS B - Biliary tract, NOS Procedures: Special Stain Group II Surgery Specimen Level IV Cytospin Fluid Comments: @ Ordering doctor for SSII edited from to DR.RFRIEN Ayon by HERBIE at 11/08/23 1016 @ Ordering doctor for SUIV edited from to DR.RFRIEN Ayon by HERBIE at 11/08/23 1016 @ Ordering doctor for CYSPIN edited from to @ by HERBIE at 11/08/23 1016 @ Submitting doctor edited from to @ by RGOOD at 11/08/23 1016 HEADER OPERATION: ERCP with pancreatic and biliary stent placement PRE-OP DIAGNOSIS: Cholestatic hepatitis and jaundice TISSUE SUBMITTED: A - Biliary brush tip, B - Biliary brushings x3 DIAGNOSIS CYTOLOGY A. Biliary brush tip (cytospin and cell block): Negative for malignant cells. B. Biliary brushings (smears): Atypical epithelial cells present. See comment. AM:shelby 11/09/2023 COMMENT B. Malignancy cannot be excluded. Clinical correlation is necessary. Case has been reviewed in consultation with Dr. Chacon who concurs with the above diagnosis. IDC:[facility]J CYTOLOGY STUDY Slides are reviewed. CYTOLOGY GROSS A - Received is a metallic endoscopic cytobrush with adherent minute fragments of macias-red tissue brush in 2 ml of clear red fluid and labeled with the patient's name and and designated per the requisition as brush. The material is dislodged from the brush and submitted for cytology preparation including cell block. B - Received are three smears labeled with the patient's name and designated per the requisition as biliary brush tip. Submitted for staining. / shelby 11/04/2023 TC:? CPT: 00811, 79687, 43058
--- NOTE | 2023-11-04 07:11 | CT_ITS ---
EXAM: CT ABDOMEN AND PELVIS WITH INTRAVENOUS CONTRAST CLINICAL INDICATION: biliary duct dilation -- IV Contrast only TECHNIQUE: Helically acquired images were obtained of the abdomen and pelvis with intravenous contrast. This CT exam was performed using one or more of the following dose reduction techniques: automated exposure control, adjustment of the mA and/or kV according to patient size, and/or use of iterative reconstruction technique. CONTRAST: IV 100mL [id number]-300 COMPARISON: Abdominal ultrasound 11/03/2023 FINDINGS: LOWER THORAX: Linear scarring/atelectasis right lower lobe. Small sliding-type hiatal hernia. ABDOMEN: LIVER: Normal. Homogeneous. No focal mass. GALLBLADDER AND BILE DUCTS: There appears to be a minimal amount of pericholecystic fluid which raises the possibility of underlying acute cholecystitis. No evidence of gallbladder wall thickening or calcified gallstone. Dilated biliary tree with common bile duct measuring 15 mm in maximum diameter. No discrete evidence of an obstructing stone or mass. PANCREAS: 14 mm cystic lesion noted within the neck of the pancreas. Pancreas is otherwise normal in appearance. SPLEEN: Normal. Normal size without focal cystic or solid mass. ADRENALS: 10 mm low-density right adrenal nodule suggestive of lipid rich adenoma. KIDNEYS AND URETERS: Normal. Normal renal size and position. No hydronephrosis. STOMACH AND BOWEL: Normal. No bowel distention. No focal inflammatory change. PELVIS: APPENDIX: Appendix is visualized and normal in appearance. BLADDER: Normal. REPRODUCTIVE: The prostate gland is enlarged measuring 7.1 x 7.5 x 5.3 cm with a volume of 147.9 ml. ABDOMEN and PELVIS: INTRAPERITONEAL SPACE: Normal. No ascites or other fluid collection. No free air. BONES/JOINTS: No suspicious lytic or blastic abnormality. SOFT TISSUES: No abdominal wall hernia. VASCULATURE: 2.6 cm ectasia of the infrarenal abdominal aorta. LYMPH NODES: Mildly prominent retroperitoneal lymph nodes are noted along the hepatoduodenal ligament of uncertain significance. CT/Abdomen/Pelvis WITH Contrast IMPRESSION: 1. Distended biliary tree without discrete evidence of an obstructing stone or mass. 2. Minimal pericholecystic fluid of uncertain significance. 3. 14 mm cyst within the pancreatic neck. RECOMMENDATIONS: MR/MRCP Electronically Signed: Ge Oliver MD at 8:17 EST ,
[2023-11-04] MEDS: 0.9% Saline Lock 10 ML Syringe IV ×2 (07:23→21:20)
[2023-11-04 08:16] LABS: Absolute Lymphocyte Count 1.15 X10^3/uL (0.83-4.51); Absolute Neutrophil Count 10.6 X10^3/uL (2.0-7.7); Basophil# 0.05 X10^3/uL; Basophil% 0.4 % (0-1); Eosinophil# 0.47 X10^3/uL; Eosinophils% 3.5 % (0-5); Hematocrit 37.4 % (40-54); Hemoglobin 11.3 g/dL (13.0-16.5); Lymphocyte # 1.15 X10^3/ul (0.83-4.51); Lymphocyte % 8.7 % (19-41); Mean Corp Hgb Conc 30.2 g/dL (32-36); Mean Corpuscular Hgb 26.3 pg (27.0-32.0); Mean Platelet Vol. 12.8 fl (6.2-12.0); Monocyte# 0.98 X10^3/uL; Monocyte% 7.4 % (0-10); NRBC Flagged by Analyzer 0 % (0-5); Neutrophil # 10.56 X10^3/uL (2.7-7.7); Neutrophil % 79.5 % (47-70); Platelet Count 226 K/mm3 (150-450); RBC Distribution Width CV 13.7 % (11.6-14.6); RBC Distribution Width SD 43.4 fl (35.1-43.9); White Blood Count 13.3 K/mm3 (4.4-11.0)
[2023-11-04 08:31] LABS: ALB/GLOB Ratio 0.3 RATIO (0.9-2.4); AST(SGOT) 107 U/L (15-37); Alanine Aminotransfer ALT/SGPT 101 U/L (16-61); Albumin, Serum 1.7 g/dL (3.2-5.0); Alkaline Phosphatase 584 U/L (45-117); Anion Gap 6 (5-15); BUN 13 mg/dL (7-18); Calcium,Total 8.8 mg/dL (8.5-10.1); Chloride 106 mmol/L (98-107); Creatinine, Serum 1.18 mg/dL (0.70-1.30); EST Glomerular Filtration Rate 65 mL/min (>60); Est Glom Filt Rate - Afr Amer 79 mL/min (>60); Estimated Creatinine Clearance 66.77 ml/min; Globulin 5.2 g/dL (2.2-4.2); Glucose 87 mg/dL (74-106); Potassium 4.2 mmol/L (3.5-5.1); Protein, Total 6.9 g/dL (6.4-8.2); Sodium Level 138 mmol/L (136-145)
--- NOTE | 2023-11-04 08:53 | MRI_ITS ---
EXAM: MR ABDOMEN WITHOUT INTRAVENOUS CONTRAST, MRCP PROTOCOL CLINICAL INDICATION: Elevated liver enzymes, biliary dilation. TECHNIQUE: Multiplanar and multisequence MR images of the abdomen without intravenous contrast obtained with MRCP sequence. Three-dimensional post-processing reconstructions were performed. This report was created using [employer] report generation technology. COMPARISON: CT 11/04/2023 FINDINGS: LOWER THORAX: Unremarkable. No pleural effusion. LIVER: Unremarkable. Normal morphology. GALLBLADDER AND BILE DUCTS: Diffuse dilation of the intrahepatic and extra hepatic bile ducts. No gallbladder wall thickening. Rounded T2 isointense rounded filling defect (12 mm) in the lower common duct is seen on image 27 of series 2. No gallstones. PANCREAS: Unremarkable. No focal cystic mass. No pancreatic duct dilation. SPLEEN: Unremarkable. Non-enlarged. ADRENALS: Unremarkable. No nodules. KIDNEYS AND URETERS: Subcentimeter simple right renal cyst. No required imaging follow-up needed given high likelihood of benign nature. Normal renal size and position. No hydronephrosis. INTRAPERITONEAL SPACE: Unremarkable. No ascites or other fluid collection. VASCULATURE: Unremarkable. Abdominal aorta is non-dilated. LYMPH NODES: No enlarged lymph nodes. MRI/MRCP Abdomen without Contrast IMPRESSION: Diffuse dilation of the intrahepatic and extra hepatic bile ducts. Lower common duct filling defect, probable choledocholithiasis. Electronically Signed: Mingo Noland MD (Brooks) at 12:52 EST ,
[2023-11-04] MEDS: Ciprofloxacin 400 MG/200 ML BAG 200 MG IV ×2 (10:58→21:20)
[2023-11-04] MEDS: 0.9% Normal Saline (1000mL) 1,000 ML 100 ML IV (10:58)
--- NOTE | 2023-11-04 11:02 | PN.HOSP_ITS ---
Reason for Visit Reason for Visit: Fall/weakness Subjective Subjective Patient seems to be clinically feeling better. Has not yet been out of bed [facility] [place]. Awaiting therapy evaluation to assist with discharge planning. We discussed the finding on his ultrasound with dilated biliary ducts and need for ERCP. Also discussed the results of his CT scan showing a pancreatic cyst and need for MRCP. Patient and were informed that Dr. Hannon would be in later today to evaluate him an ERCP would be performed later today. No issues overnight. Objective Data Objective Data Vital Signs: Vital Signs Temp Pulse Resp BP Pulse Ox O2 Del Method 98.3 F 67 18 148/67 H 97 Room Air 11/04/23 10:53 11/04/23 10:53 11/04/23 10:53 11/04/23 10:53 11/04/23 10:53 11/04/23 10:53 Oxygen Delivery Method Room Air Weight: 96.706 kg Body Mass Index (BMI) 28.1 Intake & Output: Intake and Output for Last 24 Hours 11/02/23 11/03/23 11/04/23 23:59 23:59 23:59 Intake Total 985 / 985 3403.34 / 3403.34 1240 / 1240 Output Total 100 / 100 600 / 600 500 / 500 Balance 885 / 885 2803.34 / 2803.34 740 / 740 Medical Nutrition Assessment Dietitian: Malnutrition Criteria Met Start: 11/03/23 11:31 Freq: Status: Active Protocol: Document 11/03/23 11:55 AG (Rec: 11/03/23 11:55 AG [id number]) Nutrition Malnutrition Evidence of Malnutrition Exists Yes Malnutrition (severe): Chronic Evidenced By Suboptimal Energy Intake ( Severe),Weight Loss (Severe) Clinical Problem Chronic Disease or Condition Related Malnutrition Etiology severe, chronic malnutrition related to inadequate energy intake d/t swallowing difficulty after stroke Signs/Symptoms as evidenced by unintentional wt loss of 17#/7% x 2 months, estimated PO intake meeting < 75% of estimated energy needs > 1 month Status Active Problem Recommendation Dietitian Recommendations/Changes cardiac, 2000 calorie controlled diet- texture/ consistency per LEGAL LIBRARIAN (currently soft and bite sized, thin liquids) glucerna 120mL 4x/day w/ medpass given evidence of malnutrition. Lab / Micro Data 11/04/23 06:41 11/04/23 06:41 Labs: Laboratory Results - last 24 hr 12/14/23 11:45: POC Glucose 159 H 11/03/23 17:09: POC Glucose 99 11/03/23 21:59: POC Glucose 166 H 11/04/23 06:41: WBC 13.3 H, RBC 4.30 L, Hgb 11.3 L, Hct 37.4 L, MCV 87.0, MCH 26.3 L, MCHC 30.2 L, RDW Std Deviation 43.4, RDW Coeff of Shoshana 13.7, Plt Count 226, MPV 12.8 H, Immature Gran % (Auto) 0.500, Neut % (Auto) 79.5 H, Lymph % (Auto) 8.7 L, [place] % (Auto) 7.4, Eos % (Auto) 3.5, Baso % (Auto) 0.4, Absolute Neuts (auto) 10.6 H, Absolute Lymphs (auto) 1.15, Nucleated RBC % 0, Sodium 138, Potassium 4.2, Chloride 106, Carbon Dioxide 26.0, Anion Gap 6, BUN 13, Creatinine 1.18, Estim Creat Clear Calc 66.77, Est GFR (MDRD) Af Amer 79, Est GFR (MDRD) Non-Af 65, BUN/Creatinine Ratio 11.0, Glucose 87, Calcium 8.8, Total Bilirubin 1.10 H, AST 107 H, ALT 101 H, Alkaline Phosphatase 584 H, Total Protein 6.9, Albumin 1.7 L, Globulin 5.2 H, Albumin/Globulin Ratio 0.3 L Micro: Microbiology 11/02/23 11:16 Urine, Clean Catch Urine Culture - Final Presumptive E. coli 11/02/23 11:16 Nasal Secretion SARS-CoV-2 & FLU Antigen (Rapid) - Final Radiography Diagnostic Testing: Radiology Impression Abdomen Ultrasound 11/03/23 08:34 IMPRESSION: 1. Fatty infiltration of the liver. 2. Extrahepatic biliary ductal dilatation or possibly choledochal cyst. MRCP would be useful. Electronically Signed: Bonifacio Su MD at 21:39 EST , Abdomen/Pelvis CT 11/04/23 07:11 IMPRESSION: 1. Distended biliary tree without discrete evidence of an obstructing stone or mass. 2. Minimal pericholecystic fluid of uncertain significance. 3. 14 mm cyst within the pancreatic neck. RECOMMENDATIONS: MR/MRCP Electronically Signed: Ge Oliver MD at 8:17 EST Reading Location ID and State: [address] [place] [address] Tel , Service support , Physical Exam Const alert, oriented x3, no apparent distress and well nourished Constitutional Narrative: Overweight, upper middle-aged, white male, lying in bed, arrived at the bedside during my exam, appears comfortable and nontoxic General Appearance: cooperative HEENT normocephalic, head/scalp atraumatic and moist oral mucous membranes HEENT Narrative: Mallampati 3, no thrush Eyes PERRL, EOMs intact bilaterally and conjunctivae normal Eyes Narrative: No scleral icterus Neck no lymphadenopathy, supple, no JVD and no carotid bruits Neck Narrative: Trachea midline, no thyroid enlargement Resp normal respiratory effort, no retractions, no use of accessory muscles and clear to auscultation bilaterally Auscultation: Negative for crackles, rhonchi or wheezes Cardio regular rate, regular rhythm, S1 normal heart sound, S2 normal heart sound, no murmurs, no rub, no gallops and no clicks GI normal to inspection, nondistended, normoactive bowel sounds, soft to palpation and non-tender Extremity no clubbing, cyanosis or edema Extremity Narrative: Pedal pulses are 2+ Skin no rashes or lesions noted, no wounds, skin turgor normal, no jaundice, no petechiae and no mottling Neuro oriented x3, CN's II-XII intact bilaterally and moves all extremities Neuro Narrative: Mild left-sided weakness noted on exam Speech: speech normal Psych affect normal Psych Narrative: Eye contact is good, patient is very pleasant and interacts normally with stable mood Assessment & Plan Assessment/Plan (1) Acute UTI: (2) Fall: (3) Weakness: (4) Leukocytosis: (5) Dehydration: (6) Elevated serum creatinine: (7) Dysphagia: (8) Transaminitis: (9) Elevated alkaline phosphatase level: (10) Hyperbilirubinemia: (11) Common bile duct dilation: PLAN: Plan E. coli acute urinary tract infection -UA consistent with infection -Culture showing E. coli -Continue IV Cipro--> day 3 of 10 for antibiotics Dilated common bile duct/transaminitis/elevated alk phos/hyperbilirubinemia -Right upper quadrant ultrasound showed a markedly dilated biliary duct -Discussed case with GI and recommended CT abdomen pelvis with contrast which showed a pancreatic cyst that is 1.4 cm in the pancreatic head as well as dilated biliary ducts, and minimal pericholecystic fluid of uncertain significance -Discussed these findings with GI and they want an MRCP -Plan is for ERCP later today -N.p.o. -Transaminases are relatively stable with no significant change -Repeat lab in a.m. Mild serum creatinine elevation due to dehydration -Resolved -Baseline serum creatinine appears to be between 0.95 and 1.2 -Serum creatinine on admission was 1.46 -Serum creatinine down to 1.18 today -Will give 1 L IV fluids postcontrast while patient is n.p.o. to flush out kidneys -Repeat BMP in a.m. with contrast given today Leukocytosis -Marked elevation at greater than 25,000 on admission but now trending down and was 19.5 -Likely due to UTI -Repeat CBC in a.m. -Antibiotics as above Dysphagia -Patient is following with outpatient speech therapy -Current recommend diet is soft with thin liquids per most recent documentation on 10/25/2023 -Will continue this diet for now -Speech therapy is following Generalized weakness -Anticipate related to acute illness and hopefully will improve UTI gets treated -PT/OT--> still awaiting consultation to help with discharge planning -Case management/social work consultation for discharge planning -Unclear yet what ultimate needs will be -Orthostatic vitals are negative Recent stroke -Continue risk factor modification -PT/OT eval pending -Residual mild left-sided weakness -Patient feels he is at his baseline -Continue aspirin Hyperlipidemia -Continue home atorvastatin DM-2 -Hold home Trulicity -Continue canagliflozin -Continue home basal and prandial insulin -SSI -Accu-Cheks as ordered -Most recent hemoglobin A1c on 09/06/2023 was 9.6 -Recommend improved glycemic control for stroke prevention/prevention of complications related to diabetes GERD -Continue home PPI BPH with obstruction -Continue home Flomax History of COPD -Continue home inhaler CALLI -Continue home CPAP DVT prophylaxis -Lovenox subcu 40 mg daily CODE STATUS -DNR CCA okay for short-term intubation as verified with patient on presentation Charges/Coding Visit Charges Inpatient E&M: 88092 Subs Hosp L3
[2023-11-04 11:29] LABS: Bedside Glucose 95 mg/dL (74-106)
[2023-11-04 11:42] LABS: Bedside Glucose 101 mg/dL (74-106)
[2023-11-04 11:52] LABS: Hemoglobin A1c 8.6 % (3.8-5.6)
--- NOTE | 2023-11-04 13:30 | RAD_ITS ---
STUDY: ERCP REASON FOR EXAM: Male, 68 years old. ABD PAIN FLUOROSCOPY TIME (if supplied): ( 1 minute and 46 seconds ) minutes/seconds. 35.08 mGy TECHNIQUE: An ERCP was performed by the flight attendant. Imaging was provided. COMPARISON: None. FINDINGS: There is dilatation of the common bile duct. A biliary stent was placed. RAD/ERCP Biliary/Pancreas IMPRESSION: Fluoroscopic services provided for placement of a stent. Electronically Signed: Juan Jean MD at 8:50 EST ,
--- NOTE | 2023-11-04 14:10 | CASEMGMT ---
Discussed therapy with hospitalist, keshawn to pt . She is aware of how pt did during session today. She asks if pt can go to outpt daily. Made her aware that typically a patient would be seen according to the therapist nasir but pt could purchase a membership to [facility] and go to days he is not receiving therapy. This is an option. She states pt does not have motivation to do anything on days he does not go to therapy. She states she has a call in to the PT at [facility] to ask some questions. Pt is agreeable to pt resuming outpt PT and ST at [facility]. She denies further needs or questions at this time.
--- NOTE | 2023-11-04 14:27 | OP.CCLET_ITS ---
11/04/2023 Tommy Markham Re : ERCP procedure for Max Fink Shahrzad This procedure was performed on Saturday, November 04, 2023. My impressions and recommendations are as follows: Impressions : - The biliary system were severely dilated, with a stone causing an obstruction. - Choledocholithiasis was found. Complete removal was accomplished by biliary sphincterotomy and balloon extraction. - One temporary stent was placed into the ventral pancreatic duct. - A biliary sphincterotomy was performed. - The biliary tree was swept. - The hepatic duct bifurcation was successfully dilated. - Cells for cytology obtained in the lower third of the main duct. - One temporary stent was placed into the common bile duct. Recommendations : My findings are described in the full procedure note, which is enclosed. If I can be of further assistance, please feel free to contact me at . Sincerely, Ronnie Hannon, 11/04/2023 2:27:15 PM This report has been signed electronically.
--- NOTE | 2023-11-04 14:27 | OP.ERCP_ITS ---
Patient Name: Max Woodson Procedure Date: 11/04/2023 1:05 PM Date of : 1955 Age: 68 Procedure: ERCP Indications: Common bile duct stone(s), Suspected ascending cholangitis, Jaundice Providers: Ronnie Hannon DO Medicines: Monitored Anesthesia Care Patient Profile: This is a 68 year old male. Previously obtained MRI showed a stone in the biliary tree. Complications: No immediate complications. Procedure: Pre-Anesthesia Assessment: - Prior to the procedure, a History and Physical was performed, and patient medications and allergies were reviewed. The patient is competent. The risks and benefits of the procedure and the sedation options and risks were discussed with the patient. All questions were answered and informed consent was obtained. Patient identification and proposed procedure were verified by the physician in the pre-procedure area. Mental Status Examination: alert and oriented. Airway Examination: normal oropharyngeal airway and neck mobility. Respiratory Examination: clear to auscultation. CV Examination: normal. Prophylactic Antibiotics: The patient does not require prophylactic antibiotics. Prior Anticoagulants: The patient has taken no anticoagulant or antiplatelet agents. ASA Grade Assessment: III - A patient with severe systemic disease. After reviewing the risks and benefits, the patient was deemed in satisfactory condition to undergo the procedure. The anesthesia plan was to use general anesthesia. Immediately prior to administration of medications, the patient was re-assessed for adequacy to receive sedatives. The heart rate, respiratory rate, oxygen saturations, blood pressure, adequacy of pulmonary ventilation, and response to care were monitored throughout the procedure. The physical status of the patient was re-assessed after the procedure. After obtaining informed consent, the scope was passed under direct vision. Throughout the procedure, the patient's blood pressure, pulse, and oxygen saturations were monitored continuously. The Duodenoscope was introduced through the mouth, and advanced to the duodenum and used to inject contrast into the bile duct and ventral pancreatic duct. The ERCP was accomplished without difficulty. The patient tolerated the procedure well. Scope In: 1:41:45 PM Scope Out: 2:11:21 PM Total Procedure Duration Time 0 hours 29 minutes 36 seconds Findings: The cheesemaker helper film was normal. The esophagus was successfully intubated under direct vision. The scope was advanced to a normal major papilla in the descending duodenum without detailed examination of the pharynx, larynx and associated structures, and upper GI tract. The upper GI tract was grossly normal. A 0.035 inch x 260 cm angled Hydra Jagwire was passed into the ventral pancreatic duct. The ventral pancreatic duct was then deeply cannulated with the short-nosed traction sphincterotome. Contrast was injected. I personally interpreted the pancreatic duct images. There was brisk flow of contrast through the ducts. Image quality was excellent. Contrast extended to the pancreatic duct. Opacification of the entire pancreatic ductal system was successful. The maximum diameter of the ducts was 6 mm. The entire opacified area was normal. One 5 Fr by 7 cm temporary stent with no internal flaps was placed 5 cm into the ventral pancreatic duct. Clear fluid flowed through the stent. The stent was in good position. A straight Roadrunner wire was passed into the biliary tree. The bile duct was then deeply cannulated over the guidewire. Contrast was injected. Opacification of the entire biliary tree except for the cystic duct and gallbladder was successful. The maximum diameter of the ducts was 15 mm. The lower third of the main bile duct contained one stone, which was 8 mm in diameter. The entire biliary tree except for the cystic duct and gallbladder were severely dilated and diffusely dilated, with a stone causing an obstruction. The largest diameter was 15 mm. A 5 mm biliary sphincterotomy was made with a monofilament traction (standard) sphincterotome using ERBE electrocautery. There was no post-sphincterotomy bleeding. The biliary tree was swept with a 15 mm balloon starting at the bifurcation. Sludge was swept from the duct. All stones were removed. Dilation of the hepatic duct bifurcation with 5-7-8.5 Fr catheter dilator was successful. Cells for cytology were obtained by brushing in the lower third of the main bile duct. One 10 Fr by 5 cm temporary stent was placed 5 cm into the common bile duct. Bile flowed through the stent. The stent was in good position. Impression: - The biliary system were severely dilated, with a stone causing an obstruction. - Choledocholithiasis was found. Complete removal was accomplished by biliary sphincterotomy and balloon extraction. - One temporary stent was placed into the ventral pancreatic duct. - A biliary sphincterotomy was performed. - The biliary tree was swept. - The hepatic duct bifurcation was successfully dilated. - Cells for cytology obtained in the lower third of the main duct. - One temporary stent was placed into the common bile duct. Procedure Code(s): --- Professional --- 02800, Endoscopic retrograde cholangiopancreatography (ERCP); with placement of endoscopic stent into biliary or pancreatic duct, including pre- and post-dilation and guide wire passage, when performed, including sphincterotomy, when performed, each stent [id number], 59, Endoscopic retrograde cholangiopancreatography (ERCP); with placement of endoscopic stent into biliary or pancreatic duct, including pre- and post-dilation and guide wire passage, when performed, including sphincterotomy, when performed, each stent [id number], Endoscopic retrograde cholangiopancreatography (ERCP); with removal of calculi/debris from biliary/pancreatic duct(s) 77149, 26, Endoscopic catheterization of the pancreatic ductal system, radiological supervision and interpretation 52123, Unlisted procedure, biliary tract CPT copyright 2021 [employer]. All rights reserved. The codes documented in this report are preliminary and upon erco machine operator review may be revised to meet current compliance requirements. Ronnie Hannon DO 11/04/2023 2:27:15 PM This report has been signed electronically. Number of Addenda: 0 Note Initiated On: 11/04/2023 1:05 PM
[2023-11-04 15:10] LABS: Bedside Glucose 119 mg/dL (74-106)
--- NOTE | 2023-11-04 15:19 | CASEMGMT ---
Social Work SW met with pt's to discuss advance directives.? She confirms pt has completed a living will and health care POA naming Kary Woodson.? Pt notified that documents are not on file at [facility] and SW requested they be brought in for scanning into the EMR.? CUBA Shirley
[2023-11-04] MEDS: Glucerna Shake 120 ML LIQUID PO ×2 (16:25→21:14)
[2023-11-04] MEDS: Tamsulosin HCl 0.4 MG Capsule PO (16:26)
[2023-11-04] MEDS: Pantoprazole Sodium 20 MG Tablet PO (16:26)
[2023-11-04] MEDS: Empagliflozin 10 MG Tablet PO (16:26)
[2023-11-04] MEDS: Venlafaxine XR 150 MG Capsule PO (16:26)
[2023-11-04 16:41] LABS: Bedside Glucose 142 mg/dL (74-106)
[2023-11-04] MEDS: Insulin Glargine-YFGN 100 UNIT/ML Pen 50 UNIT SC (21:14)
[2023-11-04] MEDS: Atorvastatin Calcium 80 MG Tablet PO (21:16)
[2023-11-04] MEDS: 0.9% Normal Saline (250mL Bag) 250 ML 15 ML IV (21:20)
--- NOTE | 2023-11-04 21:38 | CPS ---
Pt refused PAP therapy for the night
[2023-11-04 22:42] LABS: Bedside Glucose 369 mg/dL (74-106)
[2023-11-05 05:41] VITALS: BP 145/68; PULSE 75; RESP 16; TEMP 36.9; O2SAT 92
[2023-11-05 06:22] LABS: Absolute Lymphocyte Count 0.64 X10^3/uL (0.83-4.51); Absolute Neutrophil Count 8.3 X10^3/uL (2.0-7.7); Basophil# 0.01 X10^3/uL; Basophil% 0.1 % (0-1); Hematocrit 37.9 % (40-54); Hemoglobin 11.8 g/dL (13.0-16.5); Lymphocyte # 0.64 X10^3/ul (0.83-4.51); Lymphocyte % 6.8 % (19-41); Mean Corp Hgb Conc 31.1 g/dL (32-36); Mean Corpuscular Hgb 26.7 pg (27.0-32.0); Mean Corpuscular Volume 85.7 fL (80-94); Mean Platelet Vol. 12.8 fl (6.2-12.0); Monocyte# 0.41 X10^3/uL; Monocyte% 4.4 % (0-10); NRBC Flagged by Analyzer 0 % (0-5); Neutrophil # 8.29 X10^3/uL (2.7-7.7); Platelet Count 252 K/mm3 (150-450); RBC Distribution Width CV 13.7 % (11.6-14.6); RBC Distribution Width SD 42.8 fl (35.1-43.9); Red Blood Count 4.42 M/mm3 (4.6-6.2); White Blood Count 9.4 K/mm3 (4.4-11.0)
[2023-11-05 06:53] LABS: ALB/GLOB Ratio 0.3 RATIO (0.9-2.4); AST(SGOT) 127 U/L (15-37); Alanine Aminotransfer ALT/SGPT 115 U/L (16-61); Albumin, Serum 1.7 g/dL (3.2-5.0); Alkaline Phosphatase 546 U/L (45-117); Anion Gap 5 (5-15); BUN 18 mg/dL (7-18); BUN/Creat Ratio 16.4 RATIO (10-20); Calcium,Total 8.6 mg/dL (8.5-10.1); Chloride 107 mmol/L (98-107); EST Glomerular Filtration Rate 71 mL/min (>60); Est Glom Filt Rate - Afr Amer 85 mL/min (>60); Estimated Creatinine Clearance 71.63 ml/min; Globulin 5.1 g/dL (2.2-4.2); Glucose 195 mg/dL (74-106); Potassium 4.2 mmol/L (3.5-5.1); Protein, Total 6.8 g/dL (6.4-8.2); Sodium Level 136 mmol/L (136-145)
[2023-11-05 07:06] VITALS: O2SAT 92
--- NOTE | 2023-11-05 07:07 | PCM.DC.SUM ---
Providers Date of Admission: 11/02/23 Primary Care Physician: Dr. Tommy Markham MD Consultations 11/04/23 07:10 Consult: Gastroenterology Routine Consulting Provider: [facility] Reason for Consult: Biliary duct dilation EMERGENT Consult: No MD Notified: Yes Date Notified: 11/04/23 Time Notified: 07:11 Method of Notification: Verbal Reason For Visit: FALL/ACUTE CYSTITIS Diagnosis Discharge Diagnosis (1) Common bile duct dilation: Status: Acute Code(s): K83.8 - Other specified diseases of biliary tract (2) Hyperbilirubinemia: Status: Acute Code(s): E80.6 - Other disorders of bilirubin metabolism (3) Elevated alkaline phosphatase level: Status: Acute Code(s): R74.8 - Abnormal levels of other serum enzymes (4) Transaminitis: Status: Acute Code(s): R74.01 - Elevation of levels of liver transaminase levels Medications at Discharge Home Medications insulin glargine 100 unit/mL (3 mL) subcutaneous pen (Lantus Solostar U-100 Insulin) 50 units subcut QHS DABETES 02/27/15 insulin lispro 100 unit/mL subcutaneous pen (Humalog KwikPen (U-100) Insulin) 22 unit subcut TID DIABETES 02/27/15 fluticasone fur. 100 mcg-umeclid 62.5 mcg-vilant 25 mcg inhalat.powder (Trelegy Ellipta) 1 inh inhalation DAILY SHORTNESS OF BREATH/WHEEZING 09/05/23 omeprazole 20 mg capsule,delayed release 20 mg PO DAILY ACID REFLUX 09/05/23 tamsulosin 0.4 mg capsule 0.4 mg PO BID PROSTATE 09/05/23 venlafaxine 150 mg capsule,extended release 24 hr 150 mg PO DAILY DEPRESSION 09/05/23 atorvastatin 80 mg tablet 80 mg PO QHS CHOLESTEROL #30 tabs 09/07/23 aspirin 81 mg chewable tablet 81 mg PO DAILY HEART HEALTH 11/02/23 canagliflozin 100 mg tablet (Invokana) 100 mg PO DAILY DIABETES 11/02/23 dulaglutide 4.5 mg/0.5 mL subcutaneous pen injector (Trulicity) 4.5 mg subcut SA DIABETES 11/02/23 ciprofloxacin HCl 500 mg tablet 500 mg PO BID #10 tabs 11/05/23 Hospital Course Operations ERCP Procedures EKG and - (/Right upper quadrant ultrasound/CT abdomen and pelvis/MRCP) Summary of Care Provided Minutes Spent on Discharge: 40 Hospital Course: Mr. Woodson is a 68-year-old white male who presented to the emergency department [facility] on 11/02/2023 complaining of fall and generalized weakness that started on the morning of presentation. On presentation he reported that the day prior he was feeling in his normal state of health and felt overall well but on the morning he woke up and felt fairly weak. He reported he was standing and trying to walk when he just collapsed because his legs gave out. He denied any loss of consciousness or injury related to the fall. He had a previous stroke in August that resulted in some mild left-sided weakness and swallowing difficulties for which she has been following as an outpatient. P.o. diet is recommended to be soft mechanical with thin liquids. He reported his overall oral intake has been decreased due to swallowing issues and he reported some intermittent vomiting of bile material in the morning but no specific nausea or or abdominal pain. His indicated on presentation that he was may be eating 600 to 900 adam daily. He denied any fever or chills but did report some urinary frequency and a change in the color of his urine. He denies any dysuria or hematuria. Vital signs on presentation demonstrated temperature is 97.4, heart rate 86, blood pressure 136/67, respiratory was 15 oxygen saturations were 94% on room air. CBC showed a markedly elevated white count at 25.6 with a left shift of 90.1%. His chemistry panel showed mild hyponatremia with a sodium of 131 and serum creatinine elevation with a creatinine of 1.47 (baseline appears to be between 0.95 and 1.2.). His glucose was 181. Troponin was 18. UA was performed and showed glucose urea, mild ketones, occult blood, nitrites, and leuk esterase along with white cells and 4+ bacteria. CT of his brain showed no acute changes. Urine culture was obtained the emergency department and sent for exam and he was started on ceftriaxone. He was admitted to the medical floor and maintained on IV antibiotics and physical and Occupational Therapy was ordered for evaluation as well as continued speech therapy. The patient was noted to have elevated LFTs without remarkably elevated alk phos greater than 600 on the morning after admission. A GGT was ordered and it was markedly elevated at greater than 800. Right upper quadrant ultrasound was performed and showed dilated biliary ducts. CT of his abdomen pelvis showed a possible cyst in the head of the pancreas at 1.4 cm and subsequent follow-up MRCP was performed which showed no cyst and dilated biliary ducts with choledocholithiasis. GI was consulted and he was taken for an ERCP on 11/04/2023. The biliary system was noted to be severely dilated with a stone causing obstruction. Complete removal of choledocholithiasis by biliary sphincterotomy and balloon extraction was performed and 1 temporary stent was placed in the ventral pancreatic duct. The biliary sphincterotomy was performed and the biliary tree was swept with stenosis noted at the hepatic duct bifurcation which was successfully dilated. Cells for cytology were obtained in the lower third of the main duct and 1 temporary stent was also placed in the common bile duct. Following the procedure the patient did well and is able to tolerate p.o. diet without any difficulty. We will discharge him home with 5 more days of ciprofloxacin to complete oral antibiotic treatment for his UTI and for coverage status post ERCP. He is to follow-up with his primary care physician within the next 1 to 2 weeks and I have asked that he get a repeat CMP to recheck liver function within the next week. He is also to call on Tuesday and schedule appointment to see Dr. Hannon from gastroenterology for follow-up in the next 2 to 3 weeks. Patient was able to be discharged home in stable condition on 11/05/2023. Prescriptions were sent to his local pharmacy at discharge. Discharge diagnoses: Acute E. coli UTI Choledocholithiasis Biliary/pancreatic duct stricture status post stent Transaminitis Hyperbilirubinemia-resolved Mild serum creatinine elevation secondary to dehydration-resolved Leukocytosis-resolved Dysphagia Generalized weakness History of stroke Hyperlipidemia DM-2 GERD BPH with obstruction COPD CALLI Physical Exam Narrative Patient states he had a good night. Tolerating p.o. diet well. Denies any abdominal pain. Feeling much better and anxious to go home and watch the [employer] game later today. Const alert, oriented x3, no apparent distress, no limitations, healthy appearing and well nourished Constitutional Narrative: Overweight, upper middle-aged, white male, sitting up in bed, appears comfortable, eating breakfast and watching television, nursing at bedside, appears comfortable and nontoxic General Appearance: cooperative, comfortable, well kempt and well developed Orientation / Consciousness: awake, oriented to person, oriented to place and oriented to time Exam Limitations: no limitations Nutritional Appearance: overweight HEENT normocephalic, head/scalp atraumatic and moist oral mucous membranes HEENT Narrative: Moderate hearing loss, Mallampati is 3, no thrush Eyes PERRL, EOMs intact bilaterally and conjunctivae normal Eyes Narrative: No scleral icterus Neck no lymphadenopathy, supple, no JVD and no carotid bruits Neck Narrative: Trachea midline, no thyroid enlargement Resp normal respiratory effort, no retractions, no use of accessory muscles and clear to auscultation bilaterally Auscultation: Negative for crackles, rales, rhonchi or wheezes Cardio regular rate, regular rhythm, S1 normal heart sound, S2 normal heart sound, no murmurs, no rub, no gallops and no clicks GI normal to inspection, nondistended, normoactive bowel sounds, soft to palpation and non-tender Extremity no clubbing, cyanosis or edema Extremity Narrative: Pedal pulses are 2+ Skin no rashes or lesions noted, no wounds, skin turgor normal, no jaundice, no petechiae and no mottling Neuro oriented x3, CN's II-XII intact bilaterally and moves all extremities Neuro Narrative: Mild left-sided weakness residual from previous stroke Speech: speech normal Psych affect normal Psych Narrative: Eye contact is good, patient is very pleasant and interacts normally with stable mood Medical Records Data Medical Nutrition Assessment Dietitian: Malnutrition Criteria Met Start: 11/03/23 11:31 Freq: Status: Active Protocol: Document 11/03/23 11:55 AG (Rec: 11/03/23 11:55 [id number]) Nutrition Malnutrition Evidence of Malnutrition Exists Yes Malnutrition (severe): Chronic Evidenced By Suboptimal Energy Intake ( Severe),Weight Loss (Severe) Clinical Problem Chronic Disease or Condition Related Malnutrition Etiology severe, chronic malnutrition related to inadequate energy intake d/t swallowing difficulty after stroke Signs/Symptoms as evidenced by unintentional wt loss of 17#/7% x 2 months, estimated PO intake meeting < 75% of estimated energy needs > 1 month Status Active Problem Recommendation Dietitian Recommendations/Changes cardiac, 2000 calorie controlled diet- texture/ consistency per PRODUCT SAFETY EXPERT (currently soft and bite sized, thin liquids) glucerna 120mL 4x/day w/ medpass given evidence of malnutrition. Weight / BMI Weight Weight: 96.706 kg Body Mass Index (BMI) 28.1 ABG / Lab / Microbiology Data 11/05/23 05:24 11/05/23 05:24 Laboratory: Laboratory Results - last 24 hr 11/04/23 06:16: POC Glucose 95 11/04/23 06:41: WBC 13.3 H, RBC 4.30 L, Hgb 11.3 L, Hct 37.4 L, MCV 87.0, MCH 26.3 L, MCHC 30.2 L, RDW Std Deviation 43.4, RDW Coeff of [place]osh[place] 13.7, Plt Count 226, MPV 12.8 H, Immature Gran % (Auto) 0.500, Neut % (Auto) 79.5 H, Lymph % (Auto) 8.7 L, [place] % (Auto) 7.4, Eos % (Auto) 3.5, Baso % (Auto) 0.4, Absolute Neuts (auto) 10.6 H, Absolute Lymphs (auto) 1.15, Nucleated RBC % 0, Sodium 138, Potassium 4.2, Chloride 106, Carbon Dioxide 26.0, Anion Gap 6, BUN 13, Creatinine 1.18, Estim Creat Clear Calc 66.77, Est GFR (MDRD) Af Amer 79, Est GFR (MDRD) Non-Af 65, BUN/Creatinine Ratio 11.0, Glucose 87, Hemoglobin A1c 8.6 H, Calcium 8.8, Total Bilirubin 1.10 H, AST 107 H, ALT 101 H, Alkaline Phosphatase 584 H, Total Protein 6.9, Albumin 1.7 L, Globulin 5.2 H, Albumin/Globulin Ratio 0.3 L 11/04/23 11:24: POC Glucose 101 11/04/23 14:51: POC Glucose 119 H 11/04/23 16:19: POC Glucose 142 H 11/04/23 21:13: POC Glucose 369 H 11/05/23 05:24: WBC 9.4, RBC 4.42 L, Hgb 11.8 L, Hct 37.9 L, MCV 85.7, MCH 26.7 L, MCHC 31.1 L, RDW Std Deviation 42.8, RDW Coeff of [place] 13.7, Plt Count 252, MPV 12.8 H, Immature Gran % (Auto) 0.700, Neut % (Auto) 88.0 H, Lymph % (Auto) 6.8 L, [place] % (Auto) 4.4, Eos % (Auto) 0.0, Baso % (Auto) 0.1, Absolute Neuts (auto) 8.3 H, Absolute Lymphs (auto) 0.64 L, Nucleated RBC % 0, Sodium 136, Potassium 4.2, Chloride 107, Carbon Dioxide 24.0, Anion Gap 5, BUN 18, Creatinine 1.10, Estim Creat Clear Calc 71.63, Est GFR (MDRD) Af Amer 85, Est GFR (MDRD) Non-Af 71, BUN/Creatinine Ratio 16.4, Glucose 195 H, Calcium 8.6, Total Bilirubin 0.60, AST 127 H, ALT 115 H, Alkaline Phosphatase 546 H, Total Protein 6.8, Albumin 1.7 L, Globulin 5.1 H, Albumin/Globulin Ratio 0.3 L Microbiology: Microbiology 11/02/23 11:16 Urine, Clean Catch Urine Culture - Final Presumptive E. coli 11/02/23 11:16 Nasal Secretion SARS-CoV-2 & FLU Antigen (Rapid) - Final Radiography Diagnostic Testing: Radiology Impression Abdomen/Pelvis CT 11/04/23 07:11 IMPRESSION: 1. Distended biliary tree without discrete evidence of an obstructing stone or mass. 2. Minimal pericholecystic fluid of uncertain significance. 3. 14 mm cyst within the pancreatic neck. RECOMMENDATIONS: MR/MRCP Electronically Signed: Ge Oliver MD at 8:17 EST , MRCP 11/04/23 08:53 IMPRESSION: Diffuse dilation of the intrahepatic and extra hepatic bile ducts. Lower common duct filling defect, probable choledocholithiasis. Electronically Signed: Mingo Noland MD (Brooks) at 12:52 EST Reading Location ID and State: [address] [place] [address] , Service support , D/C Instructions Discharge Diet: Low fat / Low cholesterol and 1800 Calorie Control Diet Discharge Activity: Return to Normal Activity Meaningful Use Info Meaningful Use Diagnoses (Choose all that apply): None applicable Discharge Plan Admission Admit Date/Time: 11/02/23 11:51 Primary Reason for Your Visit: Falls/generalized weakness Attending Provider: Elizabeth Montalvo Primary Care Provider: Tommy Markham Instructions Additional Instructions / Restrictions: 1. You were found to have biliary duct dilation due to a stone and stricture. A biliary stent was placed during your hospital course. Please follow-up with Dr. Hannon as noted below. Biopsies were taken at the time of your ERCP. 2. Please complete antibiotics as directed below. 3. Please follow-up with outpatient physical therapy as previously scheduled . Please ask your primary care physician to obtain a complete metabolic profile to be done within the next week to recheck your liver functions. Discharge Orders/Prescriptions Prescriptions: New ciprofloxacin HCl 500 mg tablet 500 mg PO BID Qty: 10 0RF Continued insulin lispro [Humalog KwikPen Insulin] 100 UNIT/ML insulin pen 22 unit subcut TID insulin glargine [Lantus Solostar U-100 Insulin] 100 UNITS/ML insulin pen 50 units subcut QHS Trelegy Ellipta 100-62.5-25 mcg blister with device 1 inh INHALATION DAILY omeprazole 20 mg capsule,delayed release(DR/EC) 20 mg PO DAILY tamsulosin 0.4 mg capsule 0.4 mg PO BID venlafaxine 150 mg capsule,extended release 24hr 150 mg PO DAILY atorvastatin 80 mg Tablet 80 mg PO QHS Qty: 30 2RF Invokana 100 mg tablet 100 mg PO DAILY Trulicity 4.5 mg/0.5 mL pen injector 4.5 mg SUBCUT SA aspirin 81 MG tablet,chewable 81 mg PO DAILY Referrals / Follow Up: Ronnie Hannon DO [Med Staff - Active Staff] - See Referral Note (Call on Tuesday to set up an appointment to be seen for hospital follow-up in 2 to 3 weeks) Tommy Markham MD [Primary Care Provider] - Within 1 Week (Hospital Follow-up) Disposition Disposition (needs filled in before D/C Order can be placed): Home, Self Care Charges/Coding Visit Charges Inpatient E&M: 83336 Disch Hosp >30min
[2023-11-05] MEDS: Insulin Lispro 100 UNIT/ML INSULN.PEN 22 UNIT SC (07:54)
[2023-11-05] MEDS: Insulin Lispro 100 UNIT/ML INSULN.PEN SC (07:54)
[2023-11-05] MEDS: Aspirin 81 MG TAB.CHEW PO (07:56)
[2023-11-05] MEDS: Tamsulosin HCl 0.4 MG Capsule PO (07:56)
[2023-11-05] MEDS: Ciprofloxacin 400 MG/200 ML BAG 200 MG IV (09:06)
[2023-11-05] MEDS: Pantoprazole Sodium 20 MG Tablet PO (09:09)
[2023-11-05] MEDS: Venlafaxine XR 150 MG Capsule PO (09:09)
[2023-11-05] MEDS: Enoxaparin 40 MG/0.4 ML Syringe SC (09:09)
[2023-11-05] MEDS: Empagliflozin 10 MG Tablet PO (09:09)
[2023-11-05 09:45] VITALS: BP 133/63; PULSE 87; RESP 16; TEMP 37.2; O2SAT 95
[2023-11-05 11:10] VITALS: BP 144/70; PULSE 68; RESP 16; TEMP 37.2; O2SAT 96
== END 2023-11-05 11:21 | disposition home or self-care (01) | DRG 689 ==
LOC: ED 12:00 → MS3 14:16
PROVIDERS: Anesthesiology; Internal Medicine Gastroenterology; Admitting Provider Internal Medicine; Emergency Provider Emergency Medicine; PCP Family Medicine; Visit Provider Internal Medicine
PROC: 0FC98ZZ Extirpation of Matter from Common Bile Duct, Via Natural or Artificial Opening Endoscopic (ICD-10-PCS; CPT 43260; principal; 2023-11-04 13:10)
DX: N39.0 Urinary tract infection, site not specified (principal); E43 Unspecified severe protein-calorie malnutrition; K86.2 Cyst of pancreas; I69.354 Hemiplegia and hemiparesis following cerebral infarction affecting left non-dominant side; E87.1 Hypo-osmolality and hyponatremia; K80.51 Calculus of bile duct without cholangitis or cholecystitis with obstruction; K83.8 Other specified diseases of biliary tract; E11.9 Type 2 diabetes mellitus without complications; J44.9 Chronic obstructive pulmonary disease, unspecified; Z79.4 Long term (current) use of insulin; E78.5 Hyperlipidemia, unspecified; K21.9 Gastro-esophageal reflux disease without esophagitis; E86.0 Dehydration; E80.6 Other disorders of bilirubin metabolism; G47.33 Obstructive sleep apnea (adult) (pediatric); I69.391 Dysphagia following cerebral infarction; B96.20 Unspecified Escherichia coli [E. coli] as the cause of diseases classified elsewhere; Z79.51 Long term (current) use of inhaled steroids; Z87.891 Personal history of nicotine dependence; Z79.82 Long term (current) use of aspirin; N40.1 Benign prostatic hyperplasia with lower urinary tract symptoms; N13.8 Other obstructive and reflux uropathy; Z66 Do not resuscitate; R74.01 Elevation of levels of liver transaminase levels; R74.8 Abnormal levels of other serum enzymes; Z23 Encounter for immunization; Z79.899 Other long term (current) drug therapy; Z68.29 Body mass index [BMI] 29.0-29.9, adult
CPT/HCPCS: 36415; 70450; 74177; 74181; 74330; 76000; 76705; 80048; 80053; 81001; 82962; 82977; 83036; 83735; 84100; 84484; 85025; 87086; 87088; 87186; 87428; 88108; 88305; 88313; 90715; 92526; 92610; 93005; 97110; 97162; 97166; 97802; 99285; J7030; J7050; Q9967; A4216; J0744; J2405

== ENCOUNTER → 2023-12-07 | Outpatient (CLI) | payer MEDICARE, OTHER, SELFPAY ==
--- NOTE | 2023-12-07 12:50 | RAD_ITS ---
STUDY: X-RAY - ABDOMEN/PELVIS REASON FOR EXAM: Male, 68 years old. SITZ day 3. TECHNIQUE: Single AP view of the abdomen / pelvis on 2 images. COMPARISON: None. FINDINGS: 8 Sitzmarks markers projected over the distal descending colon. 1 Sitzmark projected over the transverse colon. 10 Sitzmarks projected over the rectosigmoid region. The visualized liver, spleen and kidneys are grossly normal in size and morphology. Catheter projected over the right upper quadrant of the abdomen. Normal visualized osseous structures. RAD/Abdomen Single View IMPRESSION: Sitzmarks as described Electronically Signed: Iker Roque MD at 15:37 EST ,
--- OUTSIDE RECORDS SUMMARY | 2023-12-07 13:04 | XMS RPT_ITS | CCD ---
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 Name Role Phone Shahrzad LAMBERT, Lia Babin Primary Care Provider Lia Markham MD Primary Care Provider [phone] Carly Banks MD Unavailable LIA MARKHAM Referring Unavailable SHAHRZAD, LIA Babin Primary Care Unavailable LIA MARKHAM Primary Care Unavailable LIA MARKHAM Attending Unavailable ANDRES DOTSON Referring Unavailable SHAHRZAD, LIA Babin Primary Care Unavailable SHAHRZAD, LIA Babin Referring Unavailable SHAHRZAD, LIA Babin Primary Care Unavailable ANDRES DOTSON Attending Unavailable CARLY BANKS Referring Unavailable SHAHRZAD, LIA Babin Primary Care Unavailable SHAHRZAD, LIA Babin Primary Care Unavailable YOLY ORNELAS Attending Unavailable SHAHRZAD, LIA Babin Primary Care Unavailable YOLY ORNELAS Referring Unavailable SHAHRZAD, LIA Babin Primary Care Unavailable LIA MARKHAM Attending Unavailable SHAHRZAD, LIA Babin Attending Unavailable SHAHRZAD, LIA Babin Primary Care Unavailable SHAHRZAD, LIA Babin Primary Care Unavailable YOLY ORNELAS Attending Unavailable SHAHRZAD, LIA Babin Primary Care Unavailable CARLY BANKS Attending Unavailable LIA MARKHAM Referring Unavailable SHAHRZAD, LIA Babin Primary Care Unavailable SHAHRZAD, LIA Babin Primary Care Unavailable LIA MARKHAM Attending Unavailable Allergies Allergy Classification Reported Allergen(s) Allergy Type Date of Onset Reaction(s) Facility (20 sources) metFORMIN; Translations: [METFORMIN] Drug Allergy 06-29-2011 Diarrhea [facility] Work Phone: (5 sources) Penicillins; Translations: [PENICILLINS] Propensity to adverse reactions 07-15-2005 [facility] Work Phone: (20 sources) Penicillins Propensity to adverse reactions 07-15-2005 [facility] Work Phone: Medications Current Medications Medication Drug Class(es) Dates Sig (Normalized) Sig (Original) canagliflozin 100 mg oral tablet (4 sources) Sodium-Glucose Cotransporter 2 Inhibitor Start: 10-11-2023 End: 10-10-2024 take 1 tablet by mouth once daily before breakfast canagliflozin (INVOKANA) 100 mg tab Indications: type 2 diabetes mellitus Take 1 tablet by mouth daily before breakfast. 90 tablet 3 10/11/2023 10/10/2024 Active Completed/Discontinued Medications Medication Drug Class(es) Dates Sig (Normalized) Sig (Original) acetaminophen 325 mg oral tablet (1 source) Start: 03-17-2015 End: 02-15-2022 take 2 tablets by mouth every four hours as needed acetaminophen (TYLENOL) 325 mg tablet Take 2 tablets by mouth every 4 hours as needed for Pain. 0 03/17/2015 02/15/2022 Discontinued Problems Active Problems Problem Classification Problem Date Documented Date Episodic/Chronic Acute cerebrovascular disease (20 sources) Cerebrovascular accident; Translations: [Cerebral infarction, unspecified] Onset: 10-22-2022 03-21-2015 Chronic Aortic; peripheral; and visceral artery aneurysms (20 sources) Abdominal aortic aneurysm without rupture; Translations: [Abdominal aortic aneurysm, without rupture] Onset: 05-13-2021 Chronic Chronic obstructive pulmonary disease and bronchiectasis (20 sources) Bronchiectasis; Translations: [Bronchiectasis, uncomplicated] Onset: 09-05-2020 09-05-2020 Chronic Diabetes mellitus without complication (20 sources) Type 2 diabetes mellitus without complication; Translations: [Type 2 diabetes mellitus without complications] Onset: 08-07-2010 Chronic Diabetes mellitus without complication (15 sources) Hyperglycemia; Translations: [Hyperglycemia, unspecified] Onset: 09-05-2023 09-05-2023 Episodic Disorders of lipid metabolism (20 sources) Hyperlipidemia; Translations: [Hyperlipidemia, unspecified] Onset: 07-15-2005 Chronic Genitourinary symptoms and ill-defined conditions (1 source) Post-micturition incontinence ; Translations: [Post-void dribbling] Chronic Immunizations and screening for infectious disease (2 sources) Needs influenza immunization; Translations: [Encounter for immunization] Episodic Late effects of cerebrovascular disease (8 sources) Sequela of cerebrovascular accident; Translations: [Unspecified sequelae of cerebral infarction] Onset: 09-05-2023 09-14-2023 Chronic Mood disorders (20 sources) Mild depression; Translations: [Mild depressive disorder] Onset: 10-25-2019 10-25-2019 Chronic Occlusion or stenosis of precerebral arteries (20 sources) Bilateral stenosis of carotid arteries; Translations: [Occlusion and stenosis of bilateral carotid arteries] Onset: 02-15-2022 Chronic Other circulatory disease (12 sources) History of cerebrovascular accident; Translations: [Personal history of transient ischemic attack (TIA), and cerebral infarction without residual deficits] Onset: 09-14-2023 09-14-2023 Episodic Other connective tissue disease (2 sources) Pain in toe; Translations: [Pain in unspecified toe(s)] Episodic Other ear and sense organ disorders (1 source) Acute otitis externa of right ear; Translations: [Unspecified acute noninfective otitis externa, right ear] Episodic Other inflammatory condition of skin (20 sources) Psoriasis; Translations: [Other psoriasis] Onset: 08-16-2006 08-16-2006 Chronic Other lower respiratory disease (2 sources) Fibrosis of lung; Translations: [Pulmonary fibrosis, unspecified] Chronic Other lower respiratory disease (1 source) Interstitial lung disease; Translations: [Interstitial pulmonary disease, unspecified] Chronic Other lower respiratory disease (6 sources) Dyspnea; Translations: [Shortness of breath] Episodic Other lower respiratory disease (1 source) Cough; Translations: [Cough, unspecified type] Episodic Other nervous system disorders (6 sources) Slurred speech; Translations: [Slurred speech] Onset: 09-14-2023 09-14-2023 Episodic Other nutritional; endocrine; and metabolic disorders (20 sources) Obesity; Translations: [Obesity, unspecified] Onset: 04-06-2006 04-06-2006 Chronic Other nutritional; endocrine; and metabolic disorders (20 sources) Obese class I; Translations: [Obesity, unspecified] Onset: 04-03-2018 04-03-2018 Chronic Other nutritional; endocrine; and metabolic disorders (8 sources) H/O: diabetes mellitus; Translations: [Personal history of other endocrine, nutritional and metabolic disease] Onset: 09-14-2023 09-14-2023 Episodic Other screening for suspected conditions (not mental disorders or infectious disease) (20 sources) Carotid artery doppler abnormal; Translations: [Abnormal findings on diagnostic imaging of other specified body structures] Onset: 08-12-2021 08-12-2021 Chronic Other screening for suspected conditions (not mental disorders or infectious disease) (1 source) Patient encounter status; Translations: [Encounter for screening for malignant neoplasm of respiratory organs] 09-20-2023 Episodic Otitis media and related conditions (1 source) Acute right otitis media; Translations: [Otitis media, unspecified, right ear] Episodic Residual codes; unclassified (20 sources) Obstructive sleep apnea syndrome; Translations: [Obstructive sleep apnea (adult) (pediatric)] Onset: 04-06-2006 Chronic Residual codes; unclassified (1 source) At risk for physiological dysfunction; Translations: [Other specified personal risk factors, not elsewhere classified] Episodic Residual codes; unclassified (9 sources) Altered mental status; Translations: [Altered mental status, unspecified] Onset: 09-05-2023 09-05-2023 Episodic Residual codes; unclassified (1 source) Altered mental status, unspecified; Translations: [Altered mental status, unspecified altered mental status type] Onset: 09-05-2023 Episodic Substance-related disorders (1 source) Cigarette smoker ; Translations: [Nicotine dependence, cigarettes, uncomplicated] 08-10-2023 Chronic Unclassified (1 source) Abdominal aortic aneurysm (AAA) without rupture, unspecified part (HCC); Translations: [Abdominal aortic aneurysm (AAA) without rupture, unspecified part (HCC)] Onset: 05-13-2021 Urinary tract infections (1 source) Urinary tract infection, site not specified; Translations: [Urinary tract infection without hematuria, site unspecified] Onset: 11-11-2023 Episodic Past or Other Problems Problem Classification Problem Date Documented Da te Episodic/Chronic Allergic reactions (20 sources) Radiation-induced dermatosis; Translations: [Other skin changes due to chronic exposure to nonionizing radiation] Onset: 08-16-2006 08-16-2006 Episodic Other and unspecified benign neoplasm (20 sources) History of polyp of colon; Translations: [Personal history of colonic polyps] Onset: 08-21-2020 08-21-2020 Episodic Other connective tissue disease (20 sources) Impingement syndrome of right shoulder region; Translations: [Impingement syndrome of right shoulder] Onset: 11-01-2011 11-01-2011 Episodic Other lower respiratory disease (20 sources) Multiple nodules of lung; Translations: [Other nonspecific abnormal finding of lung field] Onset: 09-05-2020 09-05-2020 Episodic Other skin disorders (20 sources) Vesicular eczema; Translations: [Dyshidrosis [pompholyx]] Onset: 08-16-2006 01-02-2010 Episodic Other skin disorders (20 sources) Seborrheic keratosis; Translations: [Other seborrheic keratosis] Onset: 06-17-2008 06-17-2008 Episodic Other skin disorders (20 sources) Solar lentigo; Translations: [Other melanin hyperpigmentation] Onset: 10-12-2011 10-12-2011 Episodic Other skin disorders (20 sources) Asteatosis cutis; Translations: [Xerosis cutis] Onset: 07-30-2012 07-30-2012 Episodic Screening and history of mental health and substance abuse codes (20 sources) Tobacco use and exposure - finding; Translations: [Personal history of nicotine dependence] Onset: 04-06-2006 08-07-2010 Episodic Results Test Name Value Interpretation Reference Range Facil ity Vital Signs Date Time Vital Sign Value Performing Clinician Faci lity 10-05-2023 11:42-0500 Body height 182.2 cm Lia Markham MD Work Phone: [facility] 10-05-2023 11:42-0500 Body weight 102.88 kg Lia Markham MD Work Phone: [facility] 10-05-2023 11:42-0500 Diastolic blood pressure 66 mm[Hg] Lia Markham MD Work Phone: [facility] 10-05-2023 11:42-0500 Heart rate 96 /min Lia Markham MD Work Phone: [facility] 10-05-2023 11:42-0500 Systolic blood pressure 102 mm[Hg] Lia Markham MD Work Phone: [facility] 09-20-2023 10:36-0400 Body weight 102.06 kg Andres Dotson APRN.CNP Work Phone: [facility] 09-20-2023 10:36-0400 Diastolic blood pressure 82 mm[Hg] Andres Blandburg 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 Work Phone: [facility] 09-20-2023 10:36-0400 Heart rate 100 /min Andres Blandburg 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 Work Phone: [facility] 09-20-2023 10:36-0400 SaO2% (BldA) [Mass fraction] 96 % Andres Blandburg 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 Work Phone: [facility] 09-20-2023 10:36-0400 Systolic blood pressure 144 mm[Hg] Andres Blandburg 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 Work Phone: [facility] 09-15-2023 13:24-0400 Body height 182.2 cm Yoly Ilya PA-C Work Phone: [facility] 09-15-2023 13:24-0400 Body weight 104.78 kg Yoly Ilya PA-C Work Phone: [facility] 09-15-2023 13:24-0400 Diastolic blood pressure 74 mm[Hg] Yoly Ilya PA-C Work Phone: [facility] 09-15-2023 13:24-0400 Heart rate 78 /min Yoly Ilya PA-C Work Phone: [facility] 09-15-2023 13:24-0400 Respiratory rate 16 /min Yoly Ilya PA-C Work Phone: [facility] 09-15-2023 13:24-0400 SaO2% (BldA) [Mass fraction] 96 % Yoly Ilya PA-C Work Phone: [facility] 09-15-2023 13:24-0400 Systolic blood pressure 130 mm[Hg] Yoly Ilya PA-C Work Phone: [facility] 09-14-2023 14:24-0400 Body height 182.2 cm Lia Markham MD Work Phone: [facility] 09-14-2023 14:24-0400 Body weight 105.14 kg Lia Markham MD Work Phone: [facility] 09-14-2023 14:24-0400 Diastolic blood pressure 56 mm[Hg] Lia Markham MD Work Phone: [facility] 09-14-2023 14:24-0400 Heart rate 84 /min Lia Markham MD Work Phone: [facility] 09-14-2023 14:24-0400 SaO2% (BldA) [Mass fraction] 95 % Lia Markham MD Work Phone: [facility] 09-14-2023 14:24-0400 Systolic blood pressure 108 mm[Hg] Lia Markham MD Work Phone: [facility] 10-22-2022 14:16-0500 Body height 182.2 cm Lia Markham MD Work Phone: [facility] 10-22-2022 14:16-0500 Body weight 109.14 kg Lia Markham MD Work Phone: [facility] 10-22-2022 14:16-0500 Diastolic blood pressure 66 mm[Hg] Lia Markham MD Work Phone: [facility] 10-22-2022 14:16-0500 Heart rate 87 /min Lia Markham MD Work Phone: [facility] 10-22-2022 14:16-0500 SaO2% (BldA) [Mass fraction] 95 % Lia Markham MD Work Phone: [facility] 10-22-2022 14:16-0500 Systolic blood pressure 134 mm[Hg] Lia Markham MD Work Phone: [facility] 10-22-2022 08:03-0500 Body weight 109.77 kg Carly Banks MD Work Phone: [facility] 10-22-2022 08:03-0500 Diastolic blood pressure 78 mm[Hg] Carly Banks MD Work Phone: [facility] 10-22-2022 08:03-0500 Heart rate 97 /min Carly Banks MD Work Phone: [facility] 10-22-2022 08:03-0500 Respiratory rate 17 /min Carly Banks MD Work Phone: [facility] 10-22-2022 08:03-0500 SaO2% (BldA) [Mass fraction] 96 % Carly Banks MD Work Phone: [facility] 10-22-2022 08:03-0500 Systolic blood pressure 144 mm[Hg] Carly Banks MD Work Phone: [facility] 09-06-2022 10:33-0400 Body height 182.2 cm Respiratory Wstr Work Phone: [facility] 09-06-2022 10:33-0400 Body weight 110.18 kg Respiratory Wstr Work Phone: [facility] 09-06-2022 10:33-0400 Heart rate 73 /min Respiratory Wstr Work Phone: [facility] 09-06-2022 10:33-0400 Respiratory rate 14 /min Respiratory Wstr Work Phone: [facility] 09-06-2022 10:33-0400 SaO2% (BldA) [Mass fraction] 94 % Respiratory Wstr Work Phone: [facility] 09-03-2022 09:06-0400 Body height 182.9 cm Lia Markham MD Work Phone: [facility] 09-03-2022 09:06-0400 Body weight 110.5 kg Lia Markham MD Work Phone: [facility] 09-03-2022 09:06-0400 Diastolic blood pressure 60 mm[Hg] Lia Markham MD Work Phone: [facility] 09-03-2022 09:06-0400 Heart rate 84 /min Lia Markham MD Work Phone: [facility] 09-03-2022 09:06-0400 SaO2% (BldA) [Mass fraction] 96 % Lia Markham MD Work Phone: [facility] 09-03-2022 09:06-0400 Systolic blood pressure 114 mm[Hg] Lia Markham MD Work Phone: [facility] 08-20-2022 11:18-0400 Body weight 111.13 kg Lia Markham MD Work Phone: [facility] 08-20-2022 11:18-0400 Diastolic blood pressure 68 mm[Hg] Lia Markham MD Work Phone: [facility] 08-20-2022 11:18-0400 Heart rate 72 /min Lia Markham MD Work Phone: [facility] 08-20-2022 11:18-0400 Systolic blood pressure 132 mm[Hg] Lia Markham MD Work Phone: [facility] 06-24-2022 15:29-0400 Body weight 109.59 kg Rosemary Nikole 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 Work Phone: [facility] 06-24-2022 15:29-0400 Diastolic blood pressure 88 mm[Hg] Rosemary Nikole 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 Work Phone: [facility] 06-24-2022 15:29-0400 Heart rate 76 /min Rosemary Nikole 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 Work Phone: [facility] 06-24-2022 15:29-0400 SaO2% (BldA) [Mass fraction] 95 % Rosemary Nikole 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 Work Phone: [facility] 06-24-2022 15:29-0400 Systolic blood pressure 136 mm[Hg] Rosemary Nikole 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 Work Phone: [facility] 06-21-2022 14:20-0400 Body temperature 98.4 [degF] Inna Roque 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 Work Phone: [facility] 06-21-2022 14:20-0400 Body weight 110.68 kg Inna Roque 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 Work Phone: [facility] 06-21-2022 14:20-0400 Diastolic blood pressure 78 mm[Hg] Inna Roque 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 Work Phone: [facility] 06-21-2022 14:20-0400 Heart rate 86 /min Inna Roque 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 Work Phone: [facility] 06-21-2022 14:20-0400 Respiratory rate 20 /min Inna Roque 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 Work Phone: [facility] 06-21-2022 14:20-0400 SaO2% (BldA) [Mass fraction] 95 % Inna Roque 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 Work Phone: [facility] 06-21-2022 14:20-0400 Systolic blood pressure 130 mm[Hg] Inna Roque 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 Work Phone: [facility] 06-15-2022 08:19-0400 Body weight 108.86 kg Isabela Hernández 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 Work Phone: [facility] 06-15-2022 08:19-0400 Diastolic blood pressure 80 mm[Hg] Isabela Haagen 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 Work Phone: [facility] 06-15-2022 08:19-0400 Heart rate 76 /min Isabela Haagen 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 Work Phone: [facility] 06-15-2022 08:19-0400 Respiratory rate 18 /min Isabela Hakulwinder 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 Work Phone: [facility] 06-15-2022 08:19-0400 SaO2% (BldA) [Mass fraction] 95 % Isabela Haagen 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 Work Phone: [facility] 06-15-2022 08:19-0400 Systolic blood pressure 132 mm[Hg] Isabela Haagen 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 Work Phone: [facility] 02-15-2022 10:54-0400 Body weight 109.77 kg Lia Markham MD Work Phone: [facility] 02-15-2022 10:54-0400 Diastolic blood pressure 82 mm[Hg] Lia Markham MD Work Phone: [facility] 02-15-2022 10:54-0400 Heart rate 80 /min Lia Markham MD Work Phone: [facility] 02-15-2022 10:54-0400 Systolic blood pressure 120 mm[Hg] Lia Markham MD Work Phone: [facility] Encounters Encounter Date Encounter Type Care Provider Facility Start: 11-11-2023 End: 11-12-2023 ambulatory LIA MARKHAM Facility:[facility] Start: 11-10-2023 ambulatory Lia Markham MD Work Phone: [facility] Procedures Date Procedure Procedure Detail Performing Clinician Start: 09-22-2023 Us retroperitoneal r eal time w/image limited Lia Markham MD Work Phone: Start: 09-06-2023 Hemoglobin A1c/Hemoglobin.total in Blood [facility] Provider Start: 09-06-2022 Brncdilat rspse spmt ry pre&post-brncdilat admn Lia Markham MD Work Phone: Start: 09-03-2022 Ecg routine ecg w/le ast 12 lds w/i&r Lia Markham MD Work Phone: Start: 08-26-2022 Us retroperitoneal r eal time w/image limited Lia Markham MD Work Phone: Start: 08-20-2022 INFLUENZA SEASONAL QUADRIVALENT HIGH DOSE AGE 65+ Lia Markham MD Work Phone: Start: 10-06-2021 Colonoscopy Lia Smith MD Work Phone: Plan of Treatment Date Care Activity Detail Author Start: 11-02-2033 Urine microalbumin profile DTaP,Tdap,Td Vaccine (3 - Td or Tdap) [facility] Start: 10-06-2026 Colonoscopy COLONOSCOPY [facility] Start: 10-06-2026 COLORECTAL CANCER SCREENING COLORECTAL CANCER SCREENING [facility] Start: 10-06-2026 Screening for malignant neoplasm of colon [facility] Start: 08-21-2025 PROSTATE CANCER SCREENING DISCUSSION PROSTATE CANCER SCREENING DISCUSSION [facility] Start: 11-07-2024 Annual PCP Team Chronic Disease Visit Annual PCP Team Chronic Disease Visit [facility] Start: 10-29-2024 Hepatitis B surface antibody level LDL Cholesterol [facility] Start: 10-05-2024 Annual PCP Team Chronic Disease Visit Annual PCP Team Chronic Disease Visit [facility] Start: 09-28-2024 Influenza vaccination Lung Cancer Screening [facility] Start: 09-28-2024 Screening for malignant neoplasm of lung Lung Cancer Screening [facility] Start: 09-14-2024 Annual PCP Team Chronic Disease Visit Annual PCP Team Chronic Disease Visit [facility] Start: 09-05-2024 Annual PCP Team Chronic Disease Visit Annual PCP Team Chronic Disease Visit [facility] Start: 01-28-2024 Hemoglobin A1c measurement HbA1C [facility] Start: 12-07-2023 Hemoglobin A1c/Hemoglobin.total in Blood HbA1C [facility] Start: 11-10-2023 ANNUAL PCP TEAM CHRONIC DISEASE VISIT ANNUAL PCP TEAM CHRONIC DISEASE VISIT [facility] Start: 10-22-2023 ANNUAL PCP TEAM CHRONIC DISEASE VISIT ANNUAL PCP TEAM CHRONIC DISEASE VISIT [facility] Start: 10-21-2023 Glaucoma screening Dilated Retinal Exam [facility] Start: 10-21-2023 Hepatitis C antibody, confirmatory test DILATED RETINAL EXAM [facility] Start: 10-05-2023 End: 01-04-2024 CBC W Auto Differential panel - Blood CBC + DIFF Lab Routine Controlled type 2 diabetes mellitus without complication, without long-term current use of insulin (HCC) Expected: 10/05/2023, Expires: 01/04/2024 [facility] Work Phone: Immunizations Immunization Date Immunization Notes Care Provider Fa elkin 08-24-2023 influenza (HD-IIV4) vaccine, age 65+ yr, high dose, quadrivalent, PF (FLUZONE HIGH-DOSE) Lia Markham MD Work Phone: [facility] 08-24-2023 respiratory syncytia l virus (RSV) vaccine, adjuvanted (AREXVY) Lia Markham MD Work Phone: [facility] 08-20-2022 influenza, high-dose , quadrivalent vaccine (FLUZONE HIGH DOSE QUADRIVALENT) Lia Markham MD Work Phone: [facility] 08-20-2022 pneumococcal (PCV20) vaccine, 20 valent (PREVNAR 20) Lia Markham MD Work Phone: [facility] 08-20-2022 pneumococcal Conjuga te, unspecified formulation Lia Markham MD Work Phone: [facility] Work Phone: 08-20-2022 influenza virus vacc ine, unspecified formulation Carly Banks MD Work Phone: [facility] 09-09-2021 influenza, high dose seasonal, preservative-free Lia Markham MD Work Phone: [facility] 02-12-2021 COVID-19 vaccine, ag e 12+ yr (PFIZER-BIONTECH - PURPLE TOP) Lia Markham MD Work Phone: [facility] 01-22-2021 COVID-19 vaccine, ag e 12+ yr (PFIZER-BIONTECH - PURPLE TOP) Lia Markham MD Work Phone: [facility] 08-21-2020 influenza, high-dose , quadrivalent vaccine (FLUZONE HIGH DOSE QUADRIVALENT) Lia Markham MD Work Phone: [facility] 08-21-2020 pneumococcal polysaccharide vaccine, 23 valent Lia Markham MD Work Phone: [facility] 12-30-2019 zoster vaccine recombinant Lia Markham MD Work Phone: [facility] 10-18-2019 zoster vaccine recombinant Lia Markham MD Work Phone: [facility] 09-14-2019 influenza, high dose seasonal, preservative-free Lia Markham MD Work Phone: [facility] 09-14-2019 zoster vaccine recombinant Lia Markham MD Work Phone: [facility] 10-04-2018 influenza, injectabl e, quadrivalent, contains preservative Lai Markham MD Work Phone: [facility] 09-01-2017 influenza, injectabl e, quadrivalent, contains preservative Lia Markham MD Work Phone: [facility] 09-21-2016 influenza, injectabl e, quadrivalent, contains preservative Lia Markham MD Work Phone: [facility] Work Phone: 10-30-2015 influenza, injectabl e, quadrivalent, contains preservative Lia Markham MD Work Phone: [facility] 10-31-2014 influenza, seasonal, injectable Lia Markham MD Work Phone: [facility] 10-31-2014 zoster vaccine, live Lia Markham MD Work Phone: [facility] 09-27-2012 influenza virus vacc ine, unspecified formulation Lia Markham MD Work Phone: [facility] 09-21-2011 influenza virus vacc ine, unspecified formulation Lia Markham MD Work Phone: [facility] Work Phone: 08-07-2010 pneumococcal polysaccharide vaccine, 23 valent Lia Markham MD Work Phone: [facility] Work Phone: 08-07-2010 tetanus toxoid, redu nathan diphtheria toxoid, and acellular pertussis vaccine, adsorbed Lia Markham MD Work Phone: [facility] Work Phone: 10-11-2007 influenza virus vacc ine, unspecified formulation Lia Markham MD Work Phone: [facility] Work Phone: Payers Date Payer Category Payer Medicare [id number] 2019 Medicare MEDICARE MEDICAR E A AND B [id number] 2019-Present [phone] [address] [address] [place] [address] Medicare [id number] 2019 Medicare [id number] 2001 Unknown JUAN J ROSS SS PPO [id number] 2001-2021 [facility] [id number] [place] [address] [facility] [id number] Social History Date Type Detail Facility Start: 05-01-2021 End: 09-20-2023 Tobacco smoking status NHIS Ex-smoker [facility] End: 09-01-2023 History of tobacco use Cigarette Smoker [facility] Start: 05-01-2021 End: 05-02-2023 Cigarettes smoked current (pack per day) - Reported 0.5 [facility] Start: 05-01-2021 End: 09-20-2023 Tobacco use and exposure Smokeless tobacco non-user [facility] Start: 02-15-2022 End: 09-14-2023 Alcohol intake Current drinker of alcohol (finding) [facility] Start: 04-27-2021 End: 10-21-2022 History SDOH Alcohol Frequency 2 [facility] Start: 04-27-2021 End: 10-21-2022 History SDOH Alcohol Std Drinks 1 [facility] Start: 04-05-2017 History SDOH Alcohol Comment occasionally beer or liquor [facility] Start: 04-27-2021 End: 10-21-2022 History SDOH Social Connections Phone 3 [facility] Start: 04-27-2021 History SDOH Physical Activity MPS 0 [facility] Start: 04-27-2021 Education 17 [facility] Start: 1955 Sex Assigned At Male [facility] Start: 02-05-2022 End: 10-22-2022 Exposure to SARS-CoV-2 (event) Not sure [facility] End: 09-01-2023 History of tobacco use Current smoker [facility] Start: 10-22-2022 Tobacco Comment Quit 2020 [facility] Start: 12-28-2022 End: 05-02-2023 Tobacco smoking status NHIS Occasional tobacco smoker [facility] Work Phone: Start: 12-28-2022 Tobacco Comment Restarted smoking over the holidays [facility] Start: 10-21-2022 End: 05-02-2023 Alcohol Use Disorder Identification Test - Consumption [AUDIT-C] [facility] How often to you hav e a drink containing alcohol? Monthly or less [facility] How many standard dr inks containing alcohol do you have on a typical day? 1 or 2 [facility] How often do you hav e 6 or more drinks on 1 occasion? Never [facility] Adult Depression Scr eening Assessment 0 [facility] Do you feel stress - tense, restless, nervous, or anxious, or unable to sleep at night because your mind is troubled all the time - these days [OSQ] To some extent [facility] In the past 12 month s, was there a time when you were not able to pay the mortgage or rent on time? No [facility] Start: 05-02-2023 Tobacco Comment Less than 1ppd 05/02/23 [facility] Start: 04-27-2021 Gender identity Identifies as male gender (finding) [facility] Start: 04-27-2021 Sexual orientation Heterosexual (finding) [facility] Do you belong to any clubs or organizations such as druze groups, [employer], [employer] or athletic groups, or school groups? Yes [facility] Are you now , , , , never or living with a partner? [facility] (I/We) worried wheth er (my/our) food would run out before (I/we) got money to buy more. Never true [facility] Start: 09-15-2023 End: 10-05-2023 Alcohol intake Ex-drinker (finding) [facility] Start: 09-15-2023 Tobacco Comment Less than 1ppd 05/02/23Quit 09/01/2023 [facility] Start: 09-20-2023 Tobacco Comment Quit 09/01/2023 [facility] Do you feel stress - tense, restless, nervous, or anxious, or unable to sleep at night because your mind is troubled all the time - these days [OSQ] Only a little [facility] Medical Equipment Procedure Code Equipment Code Equipment Origin al Text Equipment Identifier Dates Start: 07-29-2010 End: 07-11-2023 Clinical Notes 10-12-2011 to 11-07-2023 Telephone Encounter - Carly Manriquez Ma - 11/02/2023 12:44 PM ESTTelephone Encounter - Aleta Teague Ma - 10/22/2023 12:09 PM ESTTelephone Encounter - Lia Markham MD - 10/22/2023 11:22 AM EST Note Date & Type Note Facility 11-07-2023 Note HNO ID: [id number] Author: Lia Markhma MD Service: ? Author Type: Physician Type: Progress Notes Filed: 11/07/2023 12:43 PM Note Text: Patient presents with: Hospice Discharge HPI: Patient presents today for office visit for hospital follow up. HOSPITAL/ER FOLLOW UP: Reason for visit: weakness, fall Which facility: [facility] Date of visit: 11/02/23 Discharged: 11/05/23 Diagnosis: common bile duct dilation, hyperbilirubinemia, elevated lk phos, transaminitis Testing done: ERCP dilated biliary ducts with choledocholithiasis, RUQ US that showed dilated biliary ducts, CT scan abd pelvis, Treatment given: came home with 3 days of Cipro per Current symptoms: weakness Is to have repeat CMP in next week to check LFT Was treated for possible uti as well. They still kept him on his invokana and trulicity given above. He is still on lipitor. Has been already doing therapies following his strokes(which were exacerbated by noncompliance with things like taking asa etc). Has follow up with neurology scheduled in Spring. Discussed rehab options. He declines ecf. He can still do toileting, dressing. Is to follow up with Dr. Hannon. Sugars are doing much better. Urinating all the time and given his uti soon after starting invokana, will stop it even though sugars are much better. We also discussed whether or not to change his trulicity. He has been on that for over a year. Has had some swallowing issues since the stroke. He is working with speech therapy. Will monitor intake. No urinary issues. They are not taking the invokana since hospitalization. Has some penile and testicular rash. No fever or chills. No vomiting since had mrcp. No stomach. No itching or nausea or abd pain. Dr. Hannon was also wondering about gastroparesis. Discussed that his uncontrolled sugars can cause it. We discussed that trulicity has done very well but may not be helping. . He does have some constipation. Has decreased appetite. We discussed decrease his trulicity and call sugars if goes high. We can adjust insulin or get into endo if it goes up. MEDICATIONS: Current Outpatient Medications Medication Sig canagliflozin (INVOKANA) 100 mg tab Take 1 tablet by mouth daily before breakfast. insulin lispro (HUMALOG KWIKPEN INSULIN) 100 unit/mL Inject 21 Units subcutaneously three times a day before meals. 17 units at each meal In addition to sliding scale insulin glargine 100 unit/mL (3 mL) Inject 50 Units subcutaneously daily at bedtime. tamsulosin (FLOMAX) 0.4 mg Take 0.4 mg by mouth two times a day. dulaglutide (TRULICITY) 4.5 mg/0.5 mL pen injector Inject 4.5 mg subcutaneously one time a week. insulin needles, DISPOSABLE, (EASY TOUCH) 31 gauge x 5/16 Use one pen needle four times daily bcruohsvqln-qcimsbcrl-atzsgymu (TRELEGY ELLIPTA) 100-62.5-25 mcg inhalation powder Inhale 1 Puff as instructed once daily. atorvastatin (LIPITOR) 80 mg tablet TAKE 1 TABLET DAILY AT BEDTIME FOR CHOLESTEROL ipratropium-albuterol (DUONEB) 0.5 mg-3 mg(2.5 mg base)/3 mL nebu Use twice daily and every four hours as needed CPAP Initiate Auto PAP @ 5-20 cm of water with humidification. Mask (per patient preference) optional chin strap (if indicated) , filters, tubing, humidifier and lifetime supplies. Replacement Machine. venlafaxine ER (EFFEXOR XR) 150 mg 24 hr capsule Take 1 capsule by mouth once daily. omeprazole (PRILOSEC) 20 mg capsule Take 1 capsule by mouth once daily. blood sugar diagnostic (BLOOD GLUCOSE TEST) test strip Test blood sugar(s) 2 times daily. Dx: Type 2 DM - Controlled E11.9 Insulin: Yes (Patient taking differently: Test blood sugar(s) 2 times daily. Dx: Type 2 DM - Controlled E11.9 Insulin: Yes Takes 1-3 times daily) Lancets lancets Test blood sugar(s) 2 times daily. Dx: Type 2 DM - Controlled E11.9 Insulin: Yes (Patient taking differently: Test blood sugar(s) 2 times daily. Dx: Type 2 DM - Controlled E11.9 Insulin: Yes 1-3 times daily) Blood Sugar Diagnostic, Drum (ACCU-CHEK COMPACT TEST) strp Test twice daily or as directed. DX: 250.02 Insulin: Yes aspirin, enteric coated (ASPIRIN, ENTERIC COATED) 81 mg EC tablet Take 81 mg by mouth once daily. clobetasol 0.05 % ointment Apply to affected spot(s) or patches of eczema and psoriasis of hands (palms and dorsal areas) selectively qday to bid until clear as directed and tolerated; taper off as able to bland emollient moisturizing cream (eg Cetaphil Cream) as able. AVOID face, eyes/eyelids, and deep fold areas. lancets(ACCU-CHEK SOFTCLIX LANCETS) Test Blood sugar once daily. 250.02 (Patient taking differently: Uses 1-3 times daily) No current facility-administered medications for this visit. ALLERGIES: ALLERGIES Allergen Reactions Metformin Diarrhea Penicillins PAST MEDICAL HISTORY Diagnosis Date ANXIETY STATE NOS 08/19/2005 Controlled with effexor Benign neoplasm of colon 2010 Dysmetabolic sy (more content not included)... [facility] 11-02-2023 Miscellaneous Notes Spoke to and scheduled patient Carly Manriquez Ma documented in this encounter [facility] 10-22-2023 Miscellaneous Notes Placed in mail written documented in this encounter [facility] 10-11-2023 Miscellaneous Notes rxi documented in this encounter [facility] 10-05-2023 Note HNO ID: [id number] Author: Lia Markham MD Service: ? Author Type: Physician Type: Progress Notes Filed: 10/05/2023 12:18 PM Note Text: Patient presents with: Follow Up HPI: Patient presents today for office visit for 3 week follow up. Was seen in [facility] on 09/06/23 for stroke like symptoms Discharged on 09/07/23 CT brain showed no acute intracranial pathology. CTA of head and neck showed no hemodynamically significant stenosis. MRI showed early linear ischemic infarct in the right periventricular white matter, progression of chronic white matter ischemic changes in both cerebral hemispheres. On asa. Saw neuro who did not feel he needed plavix. Wonder about dehydration causing his recent stroke symptoms to recur. He does not drink fluids well. He had not been taking his asa when he had his subacute cva. Was seen back in [facility] on 09/26/23 Discharged on 09/27/23 Went in for weakness and slurred speech Brain MRI: No evidence for acute infarct Small late subacute right periventricular infarct Moderate chronic involutional and white matter changes Denies chest pain today Denies shortness of breath today No issues with balance Weakness in left arm and leg has gotten better No slurred speech He is not doing there therapies ordered. He has been going to [facility] instead. Reiterated that it is not an acceptable substitute. Orders were placed. They are planning on going to [facility] this week. Suggested with recent cva they stay home. Did not set up his neurology appt we ordered. Sugars are above 200. Has not been using his sliding scale. No new numbness or weakness or headache. No choking or coughing with eating. MEDICATIONS: Current Outpatient Medications Medication Sig insulin glargine 100 unit/mL (3 mL) Inject 50 Units subcutaneously daily at bedtime. tamsulosin (FLOMAX) 0.4 mg Take 0.4 mg by mouth two times a day. dulaglutide (TRULICITY) 4.5 mg/0.5 mL pen injector Inject 4.5 mg subcutaneously one time a week. insulin lispro (HUMALOG KWIKPEN INSULIN) 100 unit/mL 17 units at each meal In addition to sliding scale insulin needles, DISPOSABLE, (EASY TOUCH) 31 gauge x 5/16 Use one pen needle four times daily auwmxdzxall-pxgtsiqpx-wijyorkf (TRELEGY ELLIPTA) 100-62.5-25 mcg inhalation powder Inhale 1 Puff as instructed once daily. atorvastatin (LIPITOR) 80 mg tablet TAKE 1 TABLET DAILY AT BEDTIME FOR CHOLESTEROL ipratropium-albuterol (DUONEB) 0.5 mg-3 mg(2.5 mg base)/3 mL nebu Use twice daily and every four hours as needed CPAP Initiate Auto PAP @ 5-20 cm of water with humidification. Mask (per patient preference) optional chin strap (if indicated) , filters, tubing, humidifier and lifetime supplies. Replacement Machine. venlafaxine ER (EFFEXOR XR) 150 mg 24 hr capsule Take 1 capsule by mouth once daily. omeprazole (PRILOSEC) 20 mg capsule Take 1 capsule by mouth once daily. blood sugar diagnostic (BLOOD GLUCOSE TEST) test strip Test blood sugar(s) 2 times daily. Dx: Type 2 DM - Controlled E11.9 Insulin: Yes (Patient taking differently: Test blood sugar(s) 2 times daily. Dx: Type 2 DM - Controlled E11.9 Insulin: Yes Takes 1-3 times daily) Lancets lancets Test blood sugar(s) 2 times daily. Dx: Type 2 DM - Controlled E11.9 Insulin: Yes (Patient taking differently: Test blood sugar(s) 2 times daily. Dx: Type 2 DM - Controlled E11.9 Insulin: Yes 1-3 times daily) Blood Sugar Diagnostic, Drum (ACCU-CHEK COMPACT TEST) strp Test twice daily or as directed. DX: 250.02 Insulin: Yes aspirin, enteric coated (ASPIRIN, ENTERIC COATED) 81 mg EC tablet Take 81 mg by mouth once daily. clobetasol 0.05 % ointment Apply to affected spot(s) or patches of eczema and psoriasis of hands (palms and dorsal areas) selectively qday to bid until clear as directed and tolerated; taper off as able to bland emollient moisturizing cream (eg Cetaphil Cream) as able. AVOID face, eyes/eyelids, and deep fold areas. lancets(ACCU-CHEK SOFTCLIX LANCETS) Test Blood sugar once daily. 250.02 (Patient taking differently: Uses 1-3 times daily) No current facility-administered medications for this visit. ALLERGIES: ALLERGIES Allergen Reactions Metformin Diarrhea Penicillins PAST MEDICAL HISTORY Diagnosis Date ANXIETY STATE NOS 08/19/2005 Controlled with effexor Benign neoplasm of colon 2010 Dysmetabolic syndrome X Hyperlipidemia Lung nodule nodule no longer seen in 2016 CALLI on CPAP Other specified disorder of penis erectile dysfunction PERS HX TOBACCO USE 04/06/2006 Cigarettes 1.5 PPD Psoriasis Skin cancer Stroke (HCC) 09/04/2023 Tobacco use disorder Type II or unspecified type diabetes mellitus without mention of complication, uncontrolled 08/07/2010 Diagnosed 07/2010 PAST SURGICAL HISTORY Procedure Laterality Date COLONOSCOPY FLX DX W/COLLJ SPEC WHEN PFRMD 12/08/2010 Colonoscopy, due 2013 COLONOSCOPY FLX DX W/COLLJ SPEC WHEN PFRMD (more content not included)... [facility] 10-05-2023 Instructions Lia Markham MD - 10/05/2023 12:08 PM EST Increase humalog to 19 units with each meal. Send over sugars on Tuesday. documented in this encounter [facility] 10-05-2023 History of Present illness Narrative Patient presents with: Follow Up HPI: Patient presents today for office visit for 3 week follow up. Was seen in [facility] on 09/06/23 for stroke like symptoms Discharged on 09/07/23 CT brain showed no acute intracranial pathology. CTA of head and neck showed no hemodynamically significant stenosis. MRI showed early linear ischemic infarct in the right periventricular white matter, progression of chronic white matter ischemic changes in both cerebral hemispheres. On asa. Saw neuro who did not feel he needed plavix. Wonder about dehydration causing his recent stroke symptoms to recur. He does not drink fluids well. He had not been taking his asa when he had his subacute cva. Was seen back in [facility] on 09/26/23 Discharged on 09/27/23 Went in for weakness and slurred speech Brain MRI: No evidence for acute infarct Small late subacute right periventricular infarct Moderate chronic involutional and white matter changes Denies chest pain today Denies shortness of breath today No issues with balance Weakness in left arm and leg has gotten better No slurred speech He is not doing there therapies ordered. He has been going to [facility] instead. Reiterated that it is not an acceptable substitute. Orders were placed. They are planning on going to [facility] this week. Suggested with recent cva they stay home. Did not set up his neurology appt we ordered. Sugars are above 200. Has not been using his sliding scale. No new numbness or weakness or headache. No choking or coughing with eating. MEDICATIONS: Current Outpatient Medications Medication Sig insulin glargine 100 unit/mL (3 mL) Inject 50 Units subcutaneously daily at bedtime. tamsulosin (FLOMAX) 0.4 mg Take 0.4 mg by mouth two times a day. dulaglutide (TRULICITY) 4.5 mg/0.5 mL pen injector Inject 4.5 mg subcutaneously one time a week. insulin lispro (HUMALOG KWIKPEN INSULIN) 100 unit/mL 17 units at each meal In addition to sliding scale insulin needles, DISPOSABLE, (EASY TOUCH) 31 gauge x 5/16 Use one pen needle four times daily yfuwfmiqhgn-ttdrjysiq-ojmcnqdf (TRELEGY ELLIPTA) 100-62.5-25 mcg inhalation powder Inhale 1 Puff as instructed once daily. atorvastatin (LIPITOR) 80 mg tablet TAKE 1 TABLET DAILY AT BEDTIME FOR CHOLESTEROL ipratropium-albuterol (DUONEB) 0.5 mg-3 mg(2.5 mg base)/3 mL nebu Use twice daily and every four hours as needed CPAP Initiate Auto PAP @ 5-20 cm of water with humidification. Mask (per patient preference) optional chin strap (if indicated) , filters, tubing, humidifier and lifetime supplies. Replacement Machine. venlafaxine ER (EFFEXOR XR) 150 mg 24 hr capsule Take 1 capsule by mouth once daily. omeprazole (PRILOSEC) 20 mg capsule Take 1 capsule by mouth once daily. blood sugar diagnostic (BLOOD GLUCOSE TEST) test strip Test blood sugar(s) 2 times daily. Dx: Type 2 DM - Controlled E11.9 Insulin: Yes (Patient taking differently: Test blood sugar(s) 2 times daily. Dx: Type 2 DM - Controlled E11.9 Insulin: Yes Takes 1-3 times daily) Lancets lancets Test blood sugar(s) 2 times daily. Dx: Type 2 DM - Controlled E11.9 Insulin: Yes (Patient taking differently: Test blood sugar(s) 2 times daily. Dx: Type 2 DM - Controlled E11.9 Insulin: Yes 1-3 times daily) Blood Sugar Diagnostic, Drum (ACCU-CHEK COMPACT TEST) strp Test twice daily or as directed. DX: 250.02 Insulin: Yes aspirin, enteric coated (ASPIRIN, ENTERIC COATED) 81 mg EC tablet Take 81 mg by mouth once daily. clobetasol 0.05 % ointment Apply to affected spot(s) or patches of eczema and psoriasis of hands (palms and dorsal areas) selectively qday to bid until clear as directed and tolerated; taper off as able to bland emollient moisturizing cream (eg Cetaphil Cream) as able. AVOID face, eyes/eyelids, and deep fold areas. lancets(ACCU-CHEK SOFTCLIX LANCETS) Test Blood sugar once daily. 250.02 (Patient taking differently: Uses 1-3 times daily) No current facility-administered medications for this visit. ALLERGIES: ALLERGIES Allergen Reactions Metformin Diarrhea Penicillins PAST MEDICAL HISTORY Diagnosis Date ANXIETY STATE NOS 08/19/2005 Controlled with effexor Benign neoplasm of colon 2010 Dysmetabolic syndrome X Hyperlipidemia Lung nodule nodule no longer seen in 2015 CALLI on CPAP Other specified disorder of penis erectile dysfunction PERS HX TOBACCO USE 04/06/2006 Cigarettes 1.5 PPD Psoriasis Skin cancer Stroke (HCC) 09/04/2023 Tobacco use disorder Type II or unspecified type diabetes mellitus without mention of complication, uncontrolled 08/07/2010 Diagnosed 07/2010 PAST SURGICAL HISTORY Procedure Laterality Date COLONOSCOPY FLX DX W/COLLJ SPEC WHEN PFRMD 12/08/2010 Colonoscopy, due 2013 COLONOSCOPY FLX DX W/COLLJ SPEC WHEN PFRMD 10/06/2021 CT BRAIN 07/14/2010 neg, white matter changes associated with small vessel disease CT CHEST W IVCON 07/01/2015 resolution pleural effusion; small pleural based nodule, decrease right hilar lymphadenopathy, mild emphysema CTA CHEST 02/17/2015 No PE; right hium atelectasis vs small nodule, right hilar lymphadenopathy; right pleural effusion EXTER CAROTIDS UNI 2010 NEGATIVE EYE SURGERY HX NM CARDIAC PERF STRESS/EXERCISE 07/20/2011 WNL PAST SURGICAL HISTORY OF 1962 Testicular as child PAST SURGICAL HISTORY OF 07/13/2012 Right rotator cuff RMVL LENS MATERIAL PHACOFRAGMENTATION ASPIR 01/2011, 02/2011 Cataract Extraction bilateral SKIN BIOPSY HX SPHINCTEROTOMY ANAL DIVISION SPHINCTER SPX 2003 FAMILY HISTORY Problem Relation Age of Onset Cancer Mother Breast Cancer, thyroid Alzheimer's Disease Father Allergies Father other (Pre diabetes) Brother Allergies Brother Social History Tobacco Use Smoking status: Former Packs/day: 1.00 Years: 47.00 Additional pack years: 0.00 Total pack years: 47.00 Types: Cigarettes Quit date: 09/01/2023 Years since quittin.0 Smokeless tobacco: Never Tobacco comments: Quit 09/01/2023 Vaping Use Vaping Use: Never used Substance Use Topics Alcohol use: Not Currently Drug use: Yes Frequency: 2.0 times per week Comment: Marijuana couple times a week. Reviewed current medications, allergies, past medical history, surgical history, family history and social history today. REVIEW OF SYSTEMS All other reviewed and negative other than HPI. VITALS: BP 102/66 Pulse 96 Ht 182.2 cm (5' 11.75 ) Wt 102.9 kg (226 lb 12.8 oz) BMI 30.97 kg/m Last 4 Encounter Wt Readings: Date: Wt: 09/20/2023 102.1 kg (225 lb) 09/15/2023 104.8 kg (231 lb) 09/15/2023 104.8 kg (231 lb) 09/14/2023 105.1 kg (231 lb 12.8 oz) PHYSICAL EXAMINATION: General appearance: Well appearing, alert, in no acute distress, well-hydrated, well nourished. Skin: Skin color, texture, turgor normal, no suspicious rashes or lesions Head: Normocephalic, no masses, lesions, tenderness or abnormalities Lungs: Lungs clear to auscultation. No wheezing, rhonchi, rales Heart: RRR without murmur, gallop, or rubs. No ectopy Abdomen: Normal abdominal exam, Abdomen soft, non-tender. Bowel sounds normal. No masses, organomegaly Extremities: No deformities, edema, skin discoloration, clubbing or cyanosis. Good capillary refill. Musculoskeletal: No joint swelling, deformity, or tenderness Neuro unchanged. ASSESSMENT/PLAN: 1. Cerebrovascular accident (CVA), unspecified mechanism (HCC) - ICD9: 434.91, ICD10: I63.9 (primary diagnosis) - encouraged compliance. Push fluids. Get therapies. Take asa daily. See neuro Do not travel this week. Letter given. 2. Controlled type 2 diabetes mellitus without complication, without long-term current use of insulin (HCC) - ICD9: 250.00, ICD10: E11.9 - INSULIN LISPRO (U-100) 100 UNIT/ML SUBCUTANEOUS PEN - CBC + DIFF - COMP METABOLIC PANEL - LIPID PANEL BASIC - HGB A1C 3. History of diabetes mellitus - ICD9: V12.29, ICD10: Z86.39 - adjust insulin. Watch diet. Call sugars in two days. 4. Infarction of thalamus (HCC) - ICD9: 434.91, ICD10: I63.81 5. Hyperlipidemia, unspecified hyperlipidemia type - ICD9: 272.4, ICD10: E78.5 - COMP METABOLIC PANEL - LIPID PANEL BASIC Lia Markham MD documented in this encounter [facility] 09-28-2023 Note HNO ID: [id number] Author: Suellen Kaplan RT(R) Service: ? Author Type: [facility] Type: Progress Notes Filed: 09/28/2023 4:18 PM Note Text: Radiology Service Progress Note PATIENT NAME: Olga Woodson DATE OF SERVICE: September 28, 2023 TIME: 4:18 PM PATIENT IDENTITY VERIFICATION COMPLETED USING TWO (2) IDENTIFIERS: Name and Date of confirmed by patient verbally. FALL SCREENING: Has the patient had 2 falls in the last year or 1 fall with injury or currently using an Ambulatory Assistive Device (Walker, Cane, Wheelchair, Crutches, etc.)? No PATIENT GENDER DATA: Male PATIENT RELEVANT IMPLANT DATA REVIEWED: Yes RADIOLOGY DEPARTMENT: CT; Exam(s) Completed: Chest PERIPHERAL IV DATA: Not applicable SIGNED BY: RT Avelina(R) September 28, 2023 4:18 PM [facility] 09-26-2023 Miscellaneous Notes Pt was taken to [facility] ER by spouse. Reg Broussard Message left for or patient to call PCP office and ask for charleen nurse, for provider's response below. Melody Schulz RN Agree, these sx belong in ER should not wait. Thanks, Rusty Calhoun, PA-C Patient's calls concerned. Patient was seen in [facility] 09/06/2023 with stroke like symptoms. Patient since has been working out. Patient's reports that patient could not do normal work out today. reports that patient is extremely weak and having a hard time. Patient was not like this yesterday. Advised that patient needs to be seen in ER. voiced understanding but states that patient is declining to go to ER. Please review and advise, Sagrario Barrera RN documented in this encounter [facility] 09-22-2023 Note HNO ID: [id number] Author: Penny Pastor RDMS Service: ? Author Type: Rn Women Services Type: Progress Notes Filed: 09/22/2023 2:14 PM Note Text: Radiology Service Progress Note PATIENT NAME: Olga Woodson DATE OF SERVICE: September 22, 2023 TIME: 2:14 PM PATIENT IDENTITY VERIFICATION COMPLETED USING TWO (2) IDENTIFIERS: Name and Date of confirmed by patient verbally. FALL SCREENING: Has the patient had 2 falls in the last year or 1 fall with injury or currently using an Ambulatory Assistive Device (Walker, Cane, Wheelchair, Crutches, etc.)? Yes, Patient High Risk for Falls What interventions were put in place to prevent falls during this visit? Offered Assistance with Transfers/Clothing, Instructed Patient to Remain Seated (Not on Exam Table) Until Exam, and Increased Observations by Caregivers PATIENT GENDER DATA: Male PATIENT RELEVANT IMPLANT DATA REVIEWED: Not Applicable RADIOLOGY DEPARTMENT: Ultrasound PERIPHERAL IV DATA: Not applicable SIGNED BY: Penny Pastor RDMS September 22, 2023 2:14 PM [facility] 09-22-2023 History of Present illness Narrative Radiology Service Progress Note PATIENT NAME: Olga Woodson DATE OF SERVICE: September 22, 2023 TIME: 2:14 PM PATIENT IDENTITY VERIFICATION COMPLETED USING TWO (2) IDENTIFIERS: Name and Date of confirmed by patient verbally. FALL SCREENING: Has the patient had 2 falls in the last year or 1 fall with injury or currently using an Ambulatory Assistive Device (Walker, Cane, Wheelchair, Crutches, etc.)? Yes, Patient High Risk for Falls What interventions were put in place to prevent falls during this visit? Offered Assistance with Transfers/Clothing, Instructed Patient to Remain Seated (Not on Exam Table) Until Exam, and Increased Observations by Caregivers PATIENT GENDER DATA: Male PATIENT RELEVANT IMPLANT DATA REVIEWED: Not Applicable RADIOLOGY DEPARTMENT: Ultrasound PERIPHERAL IV DATA: Not applicable SIGNED BY: Penny Pastor RDMS September 22, 2023 2:14 PM documented in this encounter [facility] 09-20-2023 Note HNO ID: [id number] Author: Andres Dotson APRN.TAMALE MACHINE FEEDER Service: ? Author Type: Nurse Practitioner Type: Progress Notes Filed: 09/20/2023 11:56 AM Note Text: LUNG SCREENING VISIT PRIMARY CARE PHYSICIAN: Lia Markham MD PULMONARY PROVIDER: Dr. Rosalinda Banks Results will be communicated via letter or electronic record if applicable. Visit Delivery: In Person Patient Visit Type: New to Screening Current or Ex-smoker? ex smoker quit 09/01/23 Exam Type: baseline LDCT Number of Pack Years: 47 Current smoker (=0) or Number of Years since Quit: <1 year REQUESTER: The referring provider advised the patient to have screening. HISTORY OF PRESENT ILLNESS: Olga Woodson is a 68 year old Former smoker who presents for lung screening. On Trele and duoneb for COPD . Respiratory symptoms include: SOB: No Chest tightness: No Coughing: No Hemoptysis: No Wheezing: No Fever/Chills: No Recent Respiratory Infection: No Unintentional weight loss: No Last 6 Encounter Wt Readings: Date: Wt: 09/20/2023 102.1 kg (225 lb) 09/15/2023 104.8 kg (231 lb) 09/15/2023 104.8 kg (231 lb) 09/14/2023 105.1 kg (231 lb 12.8 oz) 09/05/2023 103.9 kg (229 lb) 05/02/2023 108 kg (238 lb) ECOG PERFORMANCE STATUS: 0- Fully active, able to carry on all pre-disease performance w/o restriction. Modified Medical Research [place] Dyspnea Scale (MMRC) I only get breathless with strenous exercise 0 PAST MEDICAL HISTORY Diagnosis Date ANXIETY STATE NOS 08/19/2005 Controlled with effexor Benign neoplasm of colon 2010 Dysmetabolic syndrome X Hyperlipidemia Lung nodule nodule no longer seen in 2015 CALLI on CPAP Other specified disorder of penis erectile dysfunction PERS HX TOBACCO USE 04/06/2006 Cigarettes 1.5 PPD Psoriasis Skin cancer Stroke (HCC) 09/04/2023 Tobacco use disorder Type II or unspecified type diabetes mellitus without mention of complication, uncontrolled 08/07/2010 Diagnosed 07/2010 PAST SURGICAL HISTORY Procedure Laterality Date COLONOSCOPY FLX DX W/COLLJ SPEC WHEN PFRMD 12/08/2010 Colonoscopy, due 2013 COLONOSCOPY FLX DX W/COLLJ SPEC WHEN PFRMD 10/06/2021 CT BRAIN 07/14/2010 neg, white matter changes associated with small vessel disease CT CHEST W IVCON 07/01/2015 resolution pleural effusion; small pleural based nodule, decrease right hilar lymphadenopathy, mild emphysema CTA CHEST 02/17/2015 No PE; right hium atelectasis vs small nodule, right hilar lymphadenopathy; right pleural effusion EXTER CAROTIDS UNI 2010 NEGATIVE EYE SURGERY HX NM CARDIAC PERF STRESS/EXERCISE 07/20/2011 WNL PAST SURGICAL HISTORY OF 1962 Testicular as child PAST SURGICAL HISTORY OF 07/13/2012 Right rotator cuff RMVL LENS MATERIAL PHACOFRAGMENTATION ASPIR 01/2011, 02/2011 Cataract Extraction bilateral SKIN BIOPSY HX SPHINCTEROTOMY ANAL DIVISION SPHINCTER SPX 2003 FAMILY HISTORY Problem Relation Age of Onset Cancer Mother Breast Cancer, thyroid Alzheimer's Disease Father Allergies Father other (Pre diabetes) Brother Allergies Brother tamsulosin (FLOMAX) 0.4 mg Take 0.4 mg by mouth two times a day. dulaglutide (TRULICITY) 4.5 mg/0.5 mL pen injector Inject 4.5 mg subcutaneously one time a week. insulin lispro (HUMALOG KWIKPEN INSULIN) 100 unit/mL 17 units at each meal In addition to sliding scale insulin needles, DISPOSABLE, (EASY TOUCH) 31 gauge x 5/16 Use one pen needle four times daily insulin glargine 100 unit/mL (3 mL) Inject 50 Units subcutaneously daily at bedtime. prlndlpzhrq-wexkjhfai-xtlhglms (TRELEGY ELLIPTA) 100-62.5-25 mcg inhalation powder Inhale 1 Puff as instructed once daily. atorvastatin (LIPITOR) 80 mg tablet TAKE 1 TABLET DAILY AT BEDTIME FOR CHOLESTEROL ipratropium-albuterol (DUONEB) 0.5 mg-3 mg(2.5 mg base)/3 mL nebu Use twice daily and every four hours as needed CPAP Initiate Auto PAP @ 5-20 cm of water with humidification. Mask (per patient preference) optional chin strap (if indicated) , filters, tubing, humidifier and lifetime supplies. Replacement Machine. venlafaxine ER (EFFEXOR XR) 150 mg 24 hr capsule Take 1 capsule by mouth once daily. omeprazole (PRILOSEC) 20 mg capsule Take 1 capsule by mouth once daily. blood sugar diagnostic (BLOOD GLUCOSE TEST) test strip Test blood sugar(s) 2 times daily. Dx: Type 2 DM - Controlled E11.9 Insulin: Yes (Patient taking differently: Test blood sugar(s) 2 times daily. Dx: Type 2 DM - Controlled E11.9 Insulin: Yes Takes 1-3 times daily) Lancets lancets Test blood sugar(s) 2 times daily. Dx: Type 2 DM - Controlled E11.9 Insulin: Yes (Patient taking differently: Test blood sugar(s) 2 times daily. Dx: Type 2 DM - Controlled E11.9 Insulin: Yes 1-3 times daily) Blood Sugar Diagnostic, Drum (ACCU-CHEK COMPACT TEST) strp Test twice daily or as directed. DX: 250.02 Insulin: Yes aspirin, enteric coated (ASPIRIN, ENTERIC COATED) 81 mg EC tablet Take 81 mg by mout (more content not included)... [facility] 09-20-2023 Instructions Andres Dotson APRN.TAMALE MACHINE FEEDER - 09/20/2023 10:[address] Lung Screen Results The CT scan that you will have done will show if you have any nodules (small spots) in your lungs that are suspicious for cancer. Around 90% of the patients who have this scan done are found to have at least one nodule. Most nodules are benign (not cancer) and of no harm to you at all. A specialist will make a scientific evaluation about whether or not a nodule is worrisome based on its size and shape. The radiologist who will read your scan will put it into one of four categories: LUNG-RADS Category Description Overall Probability of Malignancy Recommended Follow-Up 1 Negative No nodules and definitely benign (non-cancerous nodules) Essentially 0. 1 Year - Follow-up Low dose CT 2 Benign Appearance or Behavior Nodules with a very low likelihood of becoming cancer due to size or lack of growth Less than 1% 1 Year - Follow-up Low dose CT 3 Probably Benign Probably benign finding, short term follow-up recommended 1 to 2% 6 Months - Follow-up CT 4 A,B,or X Suspicious Findings for which additional diagnostic testing and/or biopsy is recommended Will be calculated based on nodule characteristics. Dependent on what is seen on the exam. [address], PET, Biopsy At times, we may see something outside of the lungs on the scan that could be a health concern. Below are some of the most common findings: S Clinically Significant or Potentially Clinically Significant Findings (non lung cancer) Referral or additional imaging/labs depending on result. Approximately 10% of people receive this result. Coronary Artery Calcifications (Moderate or Severe) - Referral to cardiology or PCP for further work-up and recommendations. Thyroid Nodule - TSH level and Thyroid Ultrasound dependent on size, referral to endocrinology. Adrenal Nodule - Blood work and referral to endocrinology. Others Lung Cancer Screening hotline: [phone] Lung Cancer Screening [phone] Billing Questions: or [email or web address] Lung Cancer Screening Team: Angeles Lopez CNP; Gladys Reddy PA-C; Suellen Joseph CNP; Diamond Rosas CNP, Susanne Wolfe PA-C, Fide Andino PA-C, Andres Dotson, TAMALE MACHINE FEEDER : [phone] documented in this encounter [facility] 09-20-2023 History of Present illness Narrative Images from the original note were not included. LUNG SCREENING VISIT PRIMARY CARE PHYSICIAN: Lia Markham MD PULMONARY PROVIDER: Dr. Rosalinda Banks Results will be communicated via letter or electronic record if applicable. Visit Delivery: In Person Patient Visit Type: New to Screening Current or Ex-smoker? ex smoker quit 09/01/23 Exam Type: baseline LDCT Number of Pack Years: 47 Current smoker (=0) or Number of Years since Quit: <1 year REQUESTER: The referring provider advised the patient to have screening. HISTORY OF PRESENT ILLNESS: Olga Woodson is a 68 year old Former smoker who presents for lung screening. On Trelegy and duoneb for COPD . Respiratory symptoms include: SOB: No Chest tightness: No Coughing: No Hemoptysis: No Wheezing: No Fever/Chills: No Recent Respiratory Infection: No Unintentional weight loss: No Last 6 Encounter Wt Readings: Date: Wt: 09/20/2023 102.1 kg (225 lb) 09/15/2023 104.8 kg (231 lb) 09/15/2023 104.8 kg (231 lb) 09/14/2023 105.1 kg (231 lb 12.8 oz) 09/05/2023 103.9 kg (229 lb) 05/02/2023 108 kg (238 lb) ECOG PERFORMANCE STATUS: 0- Fully active, able to carry on all pre-disease performance w/o restriction. Modified Medical Research [place] Dyspnea Scale (MMRC) I only get breathless with strenous exercise 0 PAST MEDICAL HISTORY Diagnosis Date ANXIETY STATE NOS 08/19/2005 Controlled with effexor Benign neoplasm of colon 2010 Dysmetabolic syndrome X Hyperlipidemia Lung nodule nodule no longer seen in 2016 CALLI on CPAP Other specified disorder of penis erectile dysfunction PERS HX TOBACCO USE 04/06/2006 Cigarettes 1.5 PPD Psoriasis Skin cancer Stroke (HCC) 09/04/2023 Tobacco use disorder Type II or unspecified type diabetes mellitus without mention of complication, uncontrolled 08/07/2010 Diagnosed 07/2010 PAST SURGICAL HISTORY Procedure Laterality Date COLONOSCOPY FLX DX W/COLLJ SPEC WHEN PFRMD 12/08/2010 Colonoscopy, due 2013 COLONOSCOPY FLX DX W/COLLJ SPEC WHEN PFRMD 10/06/2021 CT BRAIN 07/14/2010 neg, white matter changes associated with small vessel disease CT CHEST W IVCON 07/01/2015 resolution pleural effusion; small pleural based nodule, decrease right hilar lymphadenopathy, mild emphysema CTA CHEST 02/17/2015 No PE; right hium atelectasis vs small nodule, right hilar lymphadenopathy; right pleural effusion EXTER CAROTIDS UNI 2010 NEGATIVE EYE SURGERY HX NM CARDIAC PERF STRESS/EXERCISE 07/20/2011 WNL PAST SURGICAL HISTORY OF 1962 Testicular as child PAST SURGICAL HISTORY OF 07/13/2012 Right rotator cuff RMVL LENS MATERIAL PHACOFRAGMENTATION ASPIR 01/2011, 02/2011 Cataract Extraction bilateral SKIN BIOPSY HX SPHINCTEROTOMY ANAL DIVISION SPHINCTER SPX 2003 FAMILY HISTORY Problem Relation Age of Onset Cancer Mother Breast Cancer, thyroid Alzheimer's Disease Father Allergies Father other (Pre diabetes) Brother Allergies Brother tamsulosin (FLOMAX) 0.4 mg Take 0.4 mg by mouth two times a day. dulaglutide (TRULICITY) 4.5 mg/0.5 mL pen injector Inject 4.5 mg subcutaneously one time a week. insulin lispro (HUMALOG KWIKPEN INSULIN) 100 unit/mL 17 units at each meal In addition to sliding scale insulin needles, DISPOSABLE, (EASY TOUCH) 31 gauge x 5/16 Use one pen needle four times daily insulin glargine 100 unit/mL (3 mL) Inject 50 Units subcutaneously daily at bedtime. sjicywlypaw-iubayzhbs-ssrbyybw (TRELEGY ELLIPTA) 100-62.5-25 mcg inhalation powder Inhale 1 Puff as instructed once daily. atorvastatin (LIPITOR) 80 mg tablet TAKE 1 TABLET DAILY AT BEDTIME FOR CHOLESTEROL ipratropium-albuterol (DUONEB) 0.5 mg-3 mg(2.5 mg base)/3 mL nebu Use twice daily and every four hours as needed CPAP Initiate Auto PAP @ 5-20 cm of water with humidification. Mask (per patient preference) optional chin strap (if indicated) , filters, tubing, humidifier and lifetime supplies. Replacement Machine. venlafaxine ER (EFFEXOR XR) 150 mg 24 hr capsule Take 1 capsule by mouth once daily. omeprazole (PRILOSEC) 20 mg capsule Take 1 capsule by mouth once daily. blood sugar diagnostic (BLOOD GLUCOSE TEST) test strip Test blood sugar(s) 2 times daily. Dx: Type 2 DM - Controlled E11.9 Insulin: Yes (Patient taking differently: Test blood sugar(s) 2 times daily. Dx: Type 2 DM - Controlled E11.9 Insulin: Yes Takes 1-3 times daily) Lancets lancets Test blood sugar(s) 2 times daily. Dx: Type 2 DM - Controlled E11.9 Insulin: Yes (Patient taking differently: Test blood sugar(s) 2 times daily. Dx: Type 2 DM - Controlled E11.9 Insulin: Yes 1-3 times daily) Blood Sugar Diagnostic, Drum (ACCU-CHEK COMPACT TEST) strp Test twice daily or as directed. DX: 250.02 Insulin: Yes aspirin, enteric coated (ASPIRIN, ENTERIC COATED) 81 mg EC tablet Take 81 mg by mouth once daily. clobetasol 0.05 % ointment Apply to affected spot(s) or patches of eczema and psoriasis of hands (palms and dorsal areas) selectively qday to bid until clear as directed and tolerated; taper off as able to bland emollient moisturizing cream (eg Cetaphil Cream) as able. AVOID face, eyes/eyelids, and deep fold areas. lancets(ACCU-CHEK SOFTCLIX LANCETS) Test Blood sugar once daily. 250.02 (Patient taking differently: Uses 1-3 times daily) ALLERGIES Allergen Reactions Metformin Diarrhea Penicillins The medications and allergies were reviewed and reconciled for this patient and deemed current. Lung Cancer Risk Factors: 1.Tobacco Use: Start Age 21, Quit Age: 68, Average packs per day 1, Pack Years 47 2. Passive Smoke Exposure: No, 3. Personal hx of malignancy: No, Type of Cancer: 4. Significant exposures (1 year or more of exposure): None, 5. Race: White 6. Education: College Graduate 7. BMI:Body mass index is 30.73 kg/m . Patient-entered Height: 6'1 Patient-entered Weight: 239 pounds 8. COPD: Yes 9. Pneumonia in the past 5 years: No 10. Is there a history of lung cancer in a first degree relative? No 11. Is there a history of lung cancer in a non-first degree relative? No 12. Is there a history of any other cancer in a first degree relative? Yes Health Maintenance Immunization History Administered Date(s) Administered COVID-19 original vaccine, age 12+ yr, monovalent (PATHSENSORS - PURPLE TOP) 01/22/2021 02/12/2021 09/09/2021 COVID-19 vaccine, age 12+ yr, 2022- season (PATHSENSORS) 09/13/2023 COVID-19 vaccine, age 12+ yr, bivalent (PATHSENSORS) 08/30/2022 influenza (HD-IIV3) vaccine, age 65+ yr, high dose, PF (FLUZONE HIGH-DOSE) 09/14/2019 09/09/2021 influenza (HD-IIV4) vaccine, age 65+ yr, high dose, quadrivalent, PF (FLUZONE HIGH-DOSE) 08/21/2020 08/20/2022 08/24/2023 influenza (IIV3) vaccine, age 3+ yr, trivalent (AFLURIA, FLULAVAL, FLUVIRIN, FLUZONE) 10/31/2014 influenza (IIV4) vaccine, age 6 mo - 64 yr, quadrivalent (AFLURIA, FLULAVAL, FLUZONE) 10/30/2015 09/21/2016 09/01/2017 10/04/2018 influenza vaccine, unspecified formulation 10/11/2007 09/21/2011 09/27/2012 pneumococcal (PCV20) vaccine, 20 valent (PREVNAR 20) 08/20/2022 pneumococcal (PPV23) vaccine, 23 valent (PNEUMOVAX 23) 08/07/2010 08/21/2020 respiratory syncytial virus (RSV) vaccine, adjuvanted (AREXVY) 08/24/2023 tetanus diphtheria pertussis (Tdap) vaccine, age 7+ yr (ADACEL, BOOSTRIX) 08/07/2010 zoster (RZV) vaccine, recombinant (SHINGRIX) 09/14/2019 10/18/2019 12/30/2019 zoster (ZVL) vaccine, live (ZOSTAVAX) 10/31/2014 Colonoscopy: 10/06/2021 Mammogram: DATA REVIEW I have directly visualized the testing documented: 09/06/2022 CT Chest Prior Imaging: Last CT/CTA Chest/Lungs CT CHEST WO IVCON Exam End: 09/06/2022 1:24 PM (Final result) Narrative: * * *Final Report* * * DATE OF EXAM: Sep 06 2022 1:24PM [facility] 0541 - CT CHEST WO IVCON / PROCEDURE REASON: multiple diagnoses * * * * Physician Interpretation * * * * EXAMINATION: CHEST CT WITHOUT CONTRAST CLINICAL HISTORY: Shortness of breath. Technique: Spiral CT acquisition of the chest from the thoracic inlet to the upper abdomen without contrast. MQ: [id number] CT Radiation dose: Integrated Dose-length product (DLP) for this visit = 435 mGy*cm CT Dose Reduction Employed: Automated exposure control(AEC) and iterative recon Comparison: CT chest on 09/04/2020 RESULT: Limitations: None. Lines, tubes, and devices: None. Lung parenchyma and airways: The central airways are patent, with diffuse bronchial wall thickening. There are numerous tiny centrilobular nodule in the bilateral lungs involving the right lower lobe, right middle lobe and left upper lobe. Foci of calcifications/calcified granuloma is demonstrated in the right lung, similar to prior study. Mild paraseptal emphysema is noted, with a stable bulla in the anterior left upper lung. No consolidations. No masses. No reticulations, honeycombing, traction bronchiolectasis or architectural distortion. Pleural space: No pleural effusion or pneumothorax. No pleural thickening. Lower neck, lymph nodes, and mediastinum: The imaged thyroid gland is normal. No lymphadenopathy in the supraclavicular, axillary, mediastinal, or hilar regions. Heart, pericardium, and thoracic vessels: The thoracic aorta and main pulmonary artery are normal in caliber. Atherosclerotic calcification demonstrated in the thoracic aorta and its branches. The cardiac chambers are normal in size. Linear and punctate coronary artery atherosclerotic calcifications are noted, although the study is not optimized for coronary assessment. No pericardial effusion or thickening. Bones and soft tissues: No destructive bone lesion. The spine shows degenerative changes. Chest wall soft tissue is unremarkable. Upper abdomen: Limited study through the upper abdomen demonstrates no interval changes. Labeling Specialist (topogram) images: No additional findings. Impression: IMPRESSION: Numerous tiny centrilobular nodules in the bilateral lungs, likely secondary to inflammatory/infectious process or small airway disease. Mild emphysema. No CT evidence of interstitial lung disease. Remote granulomatous disease. Tile Power Shear Operator: PSCB Transcribe Date/Time: Sep 07 2022 2:32P Dictated by : SOUMYA AYALA MD This examination was interpreted and the report reviewed and electronically signed by: SOUMYA AYALA MD on Sep 07 2022 2:44PM EST Last CT Chest - Impression Only CT CHEST WO IVCON Exam End: 09/06/2022 1:24 PM (Final result) Impression: IMPRESSION: Numerous tiny centrilobular nodules in the bilateral lungs, likely secondary to inflammatory/infectious process or small airway disease. Mild emphysema. No CT evidence of interstitial lung disease. Remote granulomatous disease.... Last XR Chest - Impression Only XR CHEST 2V FRONTAL/LAT Exam End: 09/03/2022 10:59 AM (Final result) Impression: IMPRESSION: Possible left medial basilar pneumonia. Lungs are otherwise clear. Tile Power Shear Operator: ABDULKADIR Transcribe Date/Time: Sep 03 2022 12:23P ... Pulmonary Function Testing: SPIROMETRY BASELINE ONLY ([id number]) - ordered on 09/15/23 [facility] [address] [place] [address] Test Date: 2023-09-15 Pat Name: OLGA WOODSON Department: Room: Gender: Male Rn Women Services: : 1955 Requested By: Order Number: [id number] Reading MD: Carly Banks MD Interpretive Statements The exhaled (FVC) spirometry maneuver meets ATS/ERS acceptability and repeatability standards. The inspired (FIVC) spirometry maneuver is [less than/greater than] the FVC maneuver. IMPRESSION: Spirometry indicates moderate obstruction. Electronically Signed On 09-15-2023 16:45:15 EDT by Carly Banks MD ID: [id number] Name: OLGA WOODSON Race: White Ht: 71.75 in Wt: 231.00 lbs Age: 68 Gender: Male : 1955 Dx: COPD_ Smoking Hx: Non-smoker Doctor: YOLY ORNELAS Test Date: 09/15/2023 Site: Tech: Madyson Robbins PRE-BRONCH POST-BRONCH Pre LLN Pred ULN %Pred Post %Pred %Chg SPIROMETRY FVC (L) 4.41 3.25 4.37 5.50 100 FEV1 (L) 2.26 2.41 3.29 4.12 68 FEV1/FVC 0.51 0.63 0.76 0.87 67 PEF L/s (L/sec) 5.37 6.41 8.85 11.28 60 FEF50 (L/sec) 1.09 2.27 4.40 6.52 24 FIF50 (L/sec) 2.67 FEF50/FIF50 0.41 90-100 FIVC (L) 3.28 UDX63-67 (L/sec) 0.70 1.14 2.60 4.64 27 Time (sec) 13.94 FET PEF (sec) 0.12 AMINTA (L) 0.06 Vol Extrap % (%) 1 PHYSICAL EXAM: BP 144/82 Pulse 100 Wt 102.1 kg (225 lb) SpO2 96% BMI 30.73 kg/m Deferred ASSESSMENT and RECOMMENDATIONS: 1. Screening for lung cancer: Six year risk for lung cancer: 4.43% Https://[employer]/[place] /result/[email or web address]_yes_unknown [email or web address]://youtu.be/[email or web address] I have determined that the patient is eligible for a low dose CT based on age, absence of signs or symptoms of lung cancer, and total pack years: Yes. The patient and I engaged in shared decision making, including the use of one or more decision aids, to include benefits, harms, follow-up diagnostic testing, over-diagnosis, false positive rate, and total radiation exposure. The patient understands and feels comfortable with it: Yes. The patient was counseled on the importance of adherence to annual LDCT lung cancer screening, impact of comorbidities and ability or willingness to undergo diagnosis and treatment. The patient understands and feels comfortable with it:Yes. 2. Nicotine dependence: The patient was counseled on the importance of maintaining cigarette smoking abstinence - The patient is committed to remaining abstinent from tobacco. Andres Dotson APRN.CNP NPI #: September 20, 2023 10:40 AM documented in this encounter [facility] 09-15-2023 Note HNO ID: [id number] Author: Yoly Ornelas PA-C Service: ? Author Type: Physician Rn Physician Office Type: Progress Notes Filed: 09/15/2023 2:43 PM Note Text: Patient: Olga Woodson PCP: Lia Markham MD CC: follow up HPI: Olga Woodson 68 year old male recently former [id number] smoker with PMH significant for psoriasis, anxiety, HLD, DM, CVA, CALLI on CPAP, and COPD. Current therapy with Trelegy and as needed Albuterol. Today, patient states he was recently admitted to [facility] secondary to CVA. States he had been off of his ASA. Denies significant cough, sputum production or wheezing. Exertional dyspnea is improved with Trelegy and since he stopped smoking. No lower extremity edema. PAST MEDICAL HISTORY Diagnosis Date ANXIETY STATE NOS 08/19/2005 Controlled with effexor Benign neoplasm of colon 2010 Dysmetabolic syndrome X Hyperlipidemia Lung nodule nodule no longer seen in 2016 CALLI on CPAP Other specified disorder of penis erectile dysfunction PERS HX TOBACCO USE 04/06/2006 Cigarettes 1.5 PPD Psoriasis Skin cancer Stroke (cerebrum) (HCC) Tobacco use disorder Type II or unspecified type diabetes mellitus without mention of complication, uncontrolled 08/07/2010 Diagnosed 07/2010 Allergies: Metformin Diarrhea Penicillins tamsulosin (FLOMAX) 0.4 mg Take 0.4 mg by mouth two times a day. dulaglutide (TRULICITY) 4.5 mg/0.5 mL pen injector Inject 4.5 mg subcutaneously one time a week. insulin lispro (HUMALOG KWIKPEN INSULIN) 100 unit/mL 17 units at each meal In addition to sliding scale insulin needles, DISPOSABLE, (EASY TOUCH) 31 gauge x 5/16 Use one pen needle four times daily insulin glargine 100 unit/mL (3 mL) Inject 50 Units subcutaneously daily at bedtime. xstasvkkvid-ugnecafjj-hijqablp (TRELEGY ELLIPTA) 100-62.5-25 mcg inhalation powder Inhale 1 Puff as instructed once daily. atorvastatin (LIPITOR) 80 mg tablet TAKE 1 TABLET DAILY AT BEDTIME FOR CHOLESTEROL ipratropium-albuterol (DUONEB) 0.5 mg-3 mg(2.5 mg base)/3 mL nebu Use twice daily and every four hours as needed CPAP Initiate Auto PAP @ 5-20 cm of water with humidification. Mask (per patient preference) optional chin strap (if indicated) , filters, tubing, humidifier and lifetime supplies. Replacement Machine. venlafaxine ER (EFFEXOR XR) 150 mg 24 hr capsule Take 1 capsule by mouth once daily. omeprazole (PRILOSEC) 20 mg capsule Take 1 capsule by mouth once daily. blood sugar diagnostic (BLOOD GLUCOSE TEST) test strip Test blood sugar(s) 2 times daily. Dx: Type 2 DM - Controlled E11.9 Insulin: Yes Lancets lancets Test blood sugar(s) 2 times daily. Dx: Type 2 DM - Controlled E11.9 Insulin: Yes Blood Sugar Diagnostic, Drum (ACCU-CHEK COMPACT TEST) strp Test twice daily or as directed. DX: 250.02 Insulin: Yes aspirin, enteric coated (ASPIRIN, ENTERIC COATED) 81 mg EC tablet Take 81 mg by mouth once daily. clobetasol 0.05 % ointment Apply to affected spot(s) or patches of eczema and psoriasis of hands (palms and dorsal areas) selectively qday to bid until clear as directed and tolerated; taper off as able to bland emollient moisturizing cream (eg Cetaphil Cream) as able. AVOID face, eyes/eyelids, and deep fold areas. lancets(ACCU-CHEK SOFTCLIX LANCETS) Test Blood sugar once daily. 250.02 Social History Tobacco Use Smoking status: Some Days Packs/day: 1.50 Years: 50.00 Additional pack years: 0.00 Total pack years: 75.00 Types: Cigarettes Last attempt to quit: 2020 Years since quittin.8 Smokeless tobacco: Never Tobacco comments: Less than 1ppd 05/02/23 Substance Use Topics Alcohol use: Yes Comment: occasionally beer or liquor Drug use: Yes Comment: Marijuana couple times a week. Family History Problem Relation Age of Onset Cancer Mother Breast Cancer, thyroid Alzheimer's Disease Father Allergies Father other (Pre diabetes) Brother Allergies Brother PAST SURGICAL HISTORY Procedure Laterality Date COLONOSCOPY FLX DX W/COLLJ SPEC WHEN PFRMD 12/08/2010 Colonoscopy, due 2013 COLONOSCOPY FLX DX W/COLLJ SPEC WHEN PFRMD 10/06/2021 CT BRAIN 07/14/2010 neg, white matter changes associated with small vessel disease CT CHEST W IVCON 07/01/2015 resolution pleural effusion; small pleural based nodule, decrease right hilar lymphadenopathy, mild emphysema CTA CHEST 02/17/2015 No PE; right hium atelectasis vs small nodule, right hilar lymphadenopathy; right pleural effusion EXTER CAROTIDS UNI 2010 NEGATIVE EYE SURGERY HX NM CARDIAC PERF STRESS/EXERCISE 07/20/2011 WNL PAST SURGICAL HISTORY OF 1962 Testicular as child PAST SURGICAL HISTORY OF 07/13/2012 Right rotator cuff RMVL LENS MATERIAL PHACOFRAGMENTATION ASPIR 01/2011, 02/2011 Cataract Extraction bilateral SKIN BIOPSY HX SPHINCTEROTOMY ANAL DIVISION SPHINCTER SPX 2003 I reviewed the past medical history, family history, social h (more content not included)... [facility] 09-15-2023 Note HNO ID: [id number] Author: Madyson Robbins RPFT Service: ? Author Type: Respiratory Therapist Type: Progress Notes Filed: 09/15/2023 1:18 PM Note Text: PULM FUNCTION SMARTBLOCK: Provider: Yoly Ornelas PA-C Assisting Tech: Madyson Robbins RPFT Spirometry: 1 [facility] 09-15-2023 History of Present illness Narrative Images from the original note were not included. Patient: Olga Woodson PCP: Lia Markham MD CC: follow up HPI: Olga Woodson 68 year old male recently former [id number] smoker with PMH significant for psoriasis, anxiety, HLD, DM, CVA, CALLI on CPAP, and COPD. Current therapy with Trelegy and as needed Albuterol. Today, patient states he was recently admitted to [facility] secondary to CVA. States he had been off of his ASA. Denies significant cough, sputum production or wheezing. Exertional dyspnea is improved with Trelegy and since he stopped smoking. No lower extremity edema. PAST MEDICAL HISTORY Diagnosis Date ANXIETY STATE NOS 08/19/2005 Controlled with effexor Benign neoplasm of colon 2010 Dysmetabolic syndrome X Hyperlipidemia Lung nodule nodule no longer seen in 2016 CALLI on CPAP Other specified disorder of penis erectile dysfunction PERS HX TOBACCO USE 04/06/2006 Cigarettes 1.5 PPD Psoriasis Skin cancer Stroke (cerebrum) (HCC) Tobacco use disorder Type II or unspecified type diabetes mellitus without mention of complication, uncontrolled 08/07/2010 Diagnosed 07/2010 Allergies: Metformin Diarrhea Penicillins tamsulosin (FLOMAX) 0.4 mg Take 0.4 mg by mouth two times a day. dulaglutide (TRULICITY) 4.5 mg/0.5 mL pen injector Inject 4.5 mg subcutaneously one time a week. insulin lispro (HUMALOG KWIKPEN INSULIN) 100 unit/mL 17 units at each meal In addition to sliding scale insulin needles, DISPOSABLE, (EASY TOUCH) 31 gauge x 5/16 Use one pen needle four times daily insulin glargine 100 unit/mL (3 mL) Inject 50 Units subcutaneously daily at bedtime. xzextpcffbs-kzyijggwv-skkdehjg (TRELEGY ELLIPTA) 100-62.5-25 mcg inhalation powder Inhale 1 Puff as instructed once daily. atorvastatin (LIPITOR) 80 mg tablet TAKE 1 TABLET DAILY AT BEDTIME FOR CHOLESTEROL ipratropium-albuterol (DUONEB) 0.5 mg-3 mg(2.5 mg base)/3 mL nebu Use twice daily and every four hours as needed CPAP Initiate Auto PAP @ 5-20 cm of water with humidification. Mask (per patient preference) optional chin strap (if indicated) , filters, tubing, humidifier and lifetime supplies. Replacement Machine. venlafaxine ER (EFFEXOR XR) 150 mg 24 hr capsule Take 1 capsule by mouth once daily. omeprazole (PRILOSEC) 20 mg capsule Take 1 capsule by mouth once daily. blood sugar diagnostic (BLOOD GLUCOSE TEST) test strip Test blood sugar(s) 2 times daily. Dx: Type 2 DM - Controlled E11.9 Insulin: Yes Lancets lancets Test blood sugar(s) 2 times daily. Dx: Type 2 DM - Controlled E11.9 Insulin: Yes Blood Sugar Diagnostic, Drum (ACCU-CHEK COMPACT TEST) strp Test twice daily or as directed. DX: 250.02 Insulin: Yes aspirin, enteric coated (ASPIRIN, ENTERIC COATED) 81 mg EC tablet Take 81 mg by mouth once daily. clobetasol 0.05 % ointment Apply to affected spot(s) or patches of eczema and psoriasis of hands (palms and dorsal areas) selectively qday to bid until clear as directed and tolerated; taper off as able to bland emollient moisturizing cream (eg Cetaphil Cream) as able. AVOID face, eyes/eyelids, and deep fold areas. lancets(ACCU-CHEK SOFTCLIX LANCETS) Test Blood sugar once daily. 250.02 Social History Tobacco Use Smoking status: Some Days Packs/day: 1.50 Years: 50.00 Additional pack years: 0.00 Total pack years: 75.00 Types: Cigarettes Last attempt to quit: 2020 Years since quittin.8 Smokeless tobacco: Never Tobacco comments: Less than 1ppd 05/02/23 Substance Use Topics Alcohol use: Yes Comment: occasionally beer or liquor Drug use: Yes Comment: Marijuana couple times a week. Family History Problem Relation Age of Onset Cancer Mother Breast Cancer, thyroid Alzheimer's Disease Father Allergies Father other (Pre diabetes) Brother Allergies Brother PAST SURGICAL HISTORY Procedure Laterality Date COLONOSCOPY FLX DX W/COLLJ SPEC WHEN PFRMD 12/08/2010 Colonoscopy, due 2013 COLONOSCOPY FLX DX W/COLLJ SPEC WHEN PFRMD 10/06/2021 CT BRAIN 07/14/2010 neg, white matter changes associated with small vessel disease CT CHEST W IVCON 07/01/2015 resolution pleural effusion; small pleural based nodule, decrease right hilar lymphadenopathy, mild emphysema CTA CHEST 02/17/2015 No PE; right hium atelectasis vs small nodule, right hilar lymphadenopathy; right pleural effusion EXTER CAROTIDS UNI 2010 NEGATIVE EYE SURGERY HX NM CARDIAC PERF STRESS/EXERCISE 07/20/2011 WNL PAST SURGICAL HISTORY OF 1962 Testicular as child PAST SURGICAL HISTORY OF 07/13/2012 Right rotator cuff RMVL LENS MATERIAL PHACOFRAGMENTATION ASPIR 01/2011, 02/2011 Cataract Extraction bilateral SKIN BIOPSY HX SPHINCTEROTOMY ANAL DIVISION SPHINCTER SPX 2003 I reviewed the past medical history, family history, social history and surgical history with changes noted above and updated in EMR. IMMUNIZATIONS Prevnar 20 - 08/20/2022 Pneumovax 23 - 08/21/2020, 08/07/2010 Influenza - 08/2023 COVID-19 - most recent 08/2023 ROS: General: No fevers, chills or night sweats. Appetite good. No unintended weight loss. Eyes, Ears, nose, throat: No post nasal drip, rhinorrhea, purulent nasal discharge, epistaxis. No hoarseness. Vision stable. Cardiac: No angina, edema, orthopnea, chest pain or palpitations. Resp: See HPI. GI: No heartburn, dysphagia. : No urinary retention. Musculoskeletal: No joint pain or swelling Neuro: No headache, focal weakness, tremor. Skin: No new skin changes or rash. Psoriasis. Otherwise negative. PHYSICAL EXAMINATION: BP 130/74 (BP Site: Right Arm, BP Position: Sitting, BP Cuff Size: Regular Adult) Pulse 78 Resp 16 Ht 182.2 cm (5' 11.75 ) Wt 104.8 kg (231 lb) SpO2 96% BMI 31.55 kg/m Gen: No acute distress. Cooperative with examination. HEENT: Normocephalic. Sclera, conjunctiva clear. Oral hygeine and dentition good. No thrush. Resp: No stridor, accessory respiratory muscle use, supra-sternal or intercostal retractions. No wheezes, crackles. CV: Regular rythm. Heart tones normal. Radial pulses normal. Abd: Non distended. MSK: No kyphoscoliosis. Ext: Warm and well perfused. No clubbing, cyanosis, edema. Skin: No rash, ecchymoses. Neuro: Mental status normal. Affect normal. No tremor. DATA: PFT, 09/15/2023 CT chest, 09/06/2022 IMPRESSION: Numerous tiny centrilobular nodules in the bilateral lungs, likely secondary to inflammatory/infectious process or small airway disease. Mild emphysema. No CT evidence of interstitial lung disease. Remote granulomatous disease. Comparison: CT chest on 09/04/2020 RESULT: Limitations: None. Lines, tubes, and devices: None. Lung parenchyma and airways: The central airways are patent, with diffuse bronchial wall thickening. There are numerous tiny centrilobular nodule in the bilateral lungs involving the right lower lobe, right middle lobe and left upper lobe. Foci of calcifications/calcified granuloma is demonstrated in the right lung, similar to prior study. Mild paraseptal emphysema is noted, with a stable bulla in the anterior left upper lung. No consolidations. No masses. No reticulations, honeycombing, traction bronchiolectasis or architectural distortion. Pleural space: No pleural effusion or pneumothorax. No pleural thickening. Lower neck, lymph nodes, and mediastinum: The imaged thyroid gland is normal. No lymphadenopathy in the supraclavicular, axillary, mediastinal, or hilar regions. Heart, pericardium, and thoracic vessels: The thoracic aorta and main pulmonary artery are normal in caliber. Atherosclerotic calcification demonstrated in the thoracic aorta and its branches. The cardiac chambers are normal in size. Linear and punctate coronary artery atherosclerotic calcifications are noted, although the study is not optimized for coronary assessment. No pericardial effusion or thickening. Bones and soft tissues: No destructive bone lesion. The spine shows degenerative changes. Chest wall soft tissue is unremarkable. Upper abdomen: Limited study through the upper abdomen demonstrates no interval changes. ASSESSMENT/PLAN: 1. Moderate COPD (chronic obstructive pulmonary disease) (HCC) - ICD9: 496, ICD10: J44.9 (primary diagnosis) Significant improvement in symptoms and FEV1 with triple therapy and cessation of smoking. Continue Trelegy ellipta daily. Rinse mouth after each use to help prevent oral thrush. Albuterol HFA inhaler, 2 inhalations 10-15 minutes prior to activities associated with shortness of breath, and as needed for rescue relief of shortness of breath or wheezing, up to 4 times daily. 2. Former cigarette smoker - ICD9: V15.82, ICD10: Z87.891 Former [id number]-mjtp smoker with sequelae of COPD. Is scheduled with lung cancer screening for LDCT. Portions of this documentation were copied and pasted from previous office visit notes in order to provide a cohesive continuity of the history. The note has been reviewed and edited and updated as necessary. Yoly Ornelas PA-C documented in this encounter [facility] 09-14-2023 Note HNO ID: [id number] Author: Lia Markham MD Service: ? Author Type: Physician Type: Progress Notes Filed: 09/15/2023 10:32 AM Note Text: Patient presents with: Hospital F/U HPI: Patient presents today for office visit for hospital follow up. Seen in [facility] on 09/06/23 Discharged 09/07/23 Admitted for stroke like symptoms CT brain showed no acute intracranial pathology. CTA of head and neck showed no hemodynamically significant stenosis. MRI showed early linear ischemic infarct in the right periventricular white matter, progression of chronic white matter ischemic changes in both cerebral hemispheres. On asa. Denies chest pain No shortness of breath Some issues with balance. Problems with slow response per . Currently has no therapies ordered. A1c was 9.6 in the hospital. He had not been back to our office prior to day of discharge since beginning of this year. His last a1c was 7.0. Sugars have been up. Had stopped testing prior to the stroke. Had stopped his asa prior to cva. Was smoking again. Just stopped two weeks ago. Has been vaping. Discussed stopping cold turkey or considering chantix. Cta showed his carotid stenosis has progressed in the oast year to 60 % on left side. Has an appt with vascular surgery soon. They has set him up for an appt with neurology but it is not available until Spring. They are willing to see neuro in the clinic if it can be done sooner MEDICATIONS: Current Outpatient Medications Medication Sig tamsulosin (FLOMAX) 0.4 mg Take 0.4 mg by mouth two times a day. insulin lispro (HUMALOG KWIKPEN INSULIN) 100 unit/mL 17 units at each meal In addition to sliding scale insulin needles, DISPOSABLE, (EASY TOUCH) 31 gauge x 5/16 Use one pen needle four times daily insulin glargine 100 unit/mL (3 mL) Inject 50 Units subcutaneously daily at bedtime. leugnlbfmzr-lqaubdkee-ydxyhgag (TRELEGY ELLIPTA) 100-62.5-25 mcg inhalation powder Inhale 1 Puff as instructed once daily. atorvastatin (LIPITOR) 80 mg tablet TAKE 1 TABLET DAILY AT BEDTIME FOR CHOLESTEROL ipratropium-albuterol (DUONEB) 0.5 mg-3 mg(2.5 mg base)/3 mL nebu Use twice daily and every four hours as needed CPAP Initiate Auto PAP @ 5-20 cm of water with humidification. Mask (per patient preference) optional chin strap (if indicated) , filters, tubing, humidifier and lifetime supplies. Replacement Machine. dulaglutide (TRULICITY) 3 mg/0.5 mL pen injector Inject 3 mg subcutaneously one time a week. venlafaxine ER (EFFEXOR XR) 150 mg 24 hr capsule Take 1 capsule by mouth once daily. omeprazole (PRILOSEC) 20 mg capsule Take 1 capsule by mouth once daily. blood sugar diagnostic (BLOOD GLUCOSE TEST) test strip Test blood sugar(s) 2 times daily. Dx: Type 2 DM - Controlled E11.9 Insulin: Yes Lancets lancets Test blood sugar(s) 2 times daily. Dx: Type 2 DM - Controlled E11.9 Insulin: Yes Blood Sugar Diagnostic, Drum (ACCU-CHEK COMPACT TEST) strp Test twice daily or as directed. DX: 250.02 Insulin: Yes aspirin, enteric coated (ASPIRIN, ENTERIC COATED) 81 mg EC tablet Take 81 mg by mouth once daily. clobetasol 0.05 % ointment Apply to affected spot(s) or patches of eczema and psoriasis of hands (palms and dorsal areas) selectively qday to bid until clear as directed and tolerated; taper off as able to bland emollient moisturizing cream (eg Cetaphil Cream) as able. AVOID face, eyes/eyelids, and deep fold areas. lancets(ACCU-CHEK SOFTCLIX LANCETS) Test Blood sugar once daily. 250.02 No current facility-administered medications for this visit. ALLERGIES: ALLERGIES Allergen Reactions Metformin Diarrhea Penicillins PAST MEDICAL HISTORY Diagnosis Date ANXIETY STATE NOS 08/19/2005 Controlled with effexor Benign neoplasm of colon 2010 Dysmetabolic syndrome X Hyperlipidemia Lung nodule nodule no longer seen in 2015 CALLI on CPAP Other specified disorder of penis erectile dysfunction PERS HX TOBACCO USE 04/06/2006 Cigarettes 1.5 PPD Psoriasis Skin cancer Stroke (cerebrum) (HCC) Tobacco use disorder Type II or unspecified type diabetes mellitus without mention of complication, uncontrolled 08/07/2010 Diagnosed 07/2010 PAST SURGICAL HISTORY Procedure Laterality Date COLONOSCOPY FLX DX W/COLLJ SPEC WHEN PFRMD 12/08/2010 Colonoscopy, due 2013 COLONOSCOPY FLX DX W/COLLJ SPEC WHEN PFRMD 10/06/2021 CT BRAIN 07/14/2010 neg, white matter changes associated with small vessel disease CT CHEST W IVCON 07/01/2015 resolution pleural effusion; small pleural based nodule, decrease right hilar lymphadenopathy, mild emphysema CTA CHEST 02/17/2015 No PE; right hium atelectasis vs small nodule, right hilar lymphadenopathy; right pleural effusion EXTER CAROTIDS UNI 2010 NEGATIVE EYE SURGERY HX NM CARDIAC PERF STRESS/EXERCISE 07/20/2011 WNL PAST SURGICAL HISTORY OF 1963 Testicular as child PAST SURGICAL HISTORY OF 07/13/2012 Right ro (more content not included)... [facility] 09-14-2023 Instructions Lia Markham MD - 09/14/2023 3:16 PM EDT My chart list of sugars next . documented in this encounter [facility] 09-14-2023 History of Present illness Narrative Patient presents with: Hospital F/U HPI: Patient presents today for office visit for hospital follow up. Seen in [facility] on 09/06/23 Discharged 09/07/23 Admitted for stroke like symptoms CT brain showed no acute intracranial pathology. CTA of head and neck showed no hemodynamically significant stenosis. MRI showed early linear ischemic infarct in the right periventricular white matter, progression of chronic white matter ischemic changes in both cerebral hemispheres. On asa. Denies chest pain No shortness of breath Some issues with balance. Problems with slow response per . Currently has no therapies ordered. A1c was 9.6 in the hospital. He had not been back to our office prior to day of discharge since beginning of this year. His last a1c was 7.0. Sugars have been up. Had stopped testing prior to the stroke. Had stopped his asa prior to cva. Was smoking again. Just stopped two weeks ago. Has been vaping. Discussed stopping cold turkey or considering chantix. Cta showed his carotid stenosis has progressed in the oast year to 60 % on left side. Has an appt with vascular surgery soon. They has set him up for an appt with neurology but it is not available until Spring. They are willing to see neuro in the clinic if it can be done sooner MEDICATIONS: Current Outpatient Medications Medication Sig tamsulosin (FLOMAX) 0.4 mg Take 0.4 mg by mouth two times a day. insulin lispro (HUMALOG KWIKPEN INSULIN) 100 unit/mL 17 units at each meal In addition to sliding scale insulin needles, DISPOSABLE, (EASY TOUCH) 31 gauge x 5/16 Use one pen needle four times daily insulin glargine 100 unit/mL (3 mL) Inject 50 Units subcutaneously daily at bedtime. hbbqgqeudju-abyeaqvop-lcnzfibj (TRELEGY ELLIPTA) 100-62.5-25 mcg inhalation powder Inhale 1 Puff as instructed once daily. atorvastatin (LIPITOR) 80 mg tablet TAKE 1 TABLET DAILY AT BEDTIME FOR CHOLESTEROL ipratropium-albuterol (DUONEB) 0.5 mg-3 mg(2.5 mg base)/3 mL nebu Use twice daily and every four hours as needed CPAP Initiate Auto PAP @ 5-20 cm of water with humidification. Mask (per patient preference) optional chin strap (if indicated) , filters, tubing, humidifier and lifetime supplies. Replacement Machine. dulaglutide (TRULICITY) 3 mg/0.5 mL pen injector Inject 3 mg subcutaneously one time a week. venlafaxine ER (EFFEXOR XR) 150 mg 24 hr capsule Take 1 capsule by mouth once daily. omeprazole (PRILOSEC) 20 mg capsule Take 1 capsule by mouth once daily. blood sugar diagnostic (BLOOD GLUCOSE TEST) test strip Test blood sugar(s) 2 times daily. Dx: Type 2 DM - Controlled E11.9 Insulin: Yes Lancets lancets Test blood sugar(s) 2 times daily. Dx: Type 2 DM - Controlled E11.9 Insulin: Yes Blood Sugar Diagnostic, Drum (ACCU-CHEK COMPACT TEST) strp Test twice daily or as directed. DX: 250.02 Insulin: Yes aspirin, enteric coated (ASPIRIN, ENTERIC COATED) 81 mg EC tablet Take 81 mg by mouth once daily. clobetasol 0.05 % ointment Apply to affected spot(s) or patches of eczema and psoriasis of hands (palms and dorsal areas) selectively qday to bid until clear as directed and tolerated; taper off as able to bland emollient moisturizing cream (eg Cetaphil Cream) as able. AVOID face, eyes/eyelids, and deep fold areas. lancets(ACCU-CHEK SOFTCLIX LANCETS) Test Blood sugar once daily. 250.02 No current facility-administered medications for this visit. ALLERGIES: ALLERGIES Allergen Reactions Metformin Diarrhea Penicillins PAST MEDICAL HISTORY Diagnosis Date ANXIETY STATE NOS 08/19/2005 Controlled with effexor Benign neoplasm of colon 2010 Dysmetabolic syndrome X Hyperlipidemia Lung nodule nodule no longer seen in 2015 CALLI on CPAP Other specified disorder of penis erectile dysfunction PERS HX TOBACCO USE 04/06/2006 Cigarettes 1.5 PPD Psoriasis Skin cancer Stroke (cerebrum) (HCC) Tobacco use disorder Type II or unspecified type diabetes mellitus without mention of complication, uncontrolled 08/07/2010 Diagnosed 07/2010 PAST SURGICAL HISTORY Procedure Laterality Date COLONOSCOPY FLX DX W/COLLJ SPEC WHEN PFRMD 12/08/2010 Colonoscopy, due 2013 COLONOSCOPY FLX DX W/COLLJ SPEC WHEN PFRMD 10/06/2021 CT BRAIN 07/14/2010 neg, white matter changes associated with small vessel disease CT CHEST W IVCON 07/01/2015 resolution pleural effusion; small pleural based nodule, decrease right hilar lymphadenopathy, mild emphysema CTA CHEST 02/17/2015 No PE; right hium atelectasis vs small nodule, right hilar lymphadenopathy; right pleural effusion EXTER CAROTIDS UNI 2010 NEGATIVE EYE SURGERY HX NM CARDIAC PERF STRESS/EXERCISE 07/20/2011 WNL PAST SURGICAL HISTORY OF 1963 Testicular as child PAST SURGICAL HISTORY OF 07/13/2012 Right rotator cuff RMVL LENS MATERIAL PHACOFRAGMENTATION ASPIR 01/2011, 02/2011 Cataract Extraction bilateral SKIN BIOPSY HX SPHINCTEROTOMY ANAL DIVISION SPHINCTER SPX 2003 FAMILY HISTORY Problem Relation Age of Onset Cancer Mother Breast Cancer, thyroid Alzheimer's Disease Father Allergies Father other (Pre diabetes) Brother Allergies Brother Social History Tobacco Use Smoking status: Some Days Packs/day: 1.50 Years: 50.00 Additional pack years: 0.00 Total pack years: 75.00 Types: Cigarettes Last attempt to quit: 2020 Years since quittin.8 Smokeless tobacco: Never Tobacco comments: Less than 1ppd 05/02/23 Substance Use Topics Alcohol use: Yes Comment: occasionally beer or liquor Drug use: Yes Comment: Marijuana couple times a week. Reviewed current medications, allergies, past medical history, surgical history, family history and social history today. REVIEW OF SYSTEMS All other reviewed and negative other than HPI. VITALS: BP 108/56 Pulse 84 Ht 182.2 cm (5' 11.75 ) Wt 105.1 kg (231 lb 12.8 oz) SpO2 95% BMI 31.66 kg/m Last 4 Encounter Wt Readings: Date: Wt: 09/05/2023 103.9 kg (229 lb) 05/02/2023 108 kg (238 lb) 12/28/2022 108.4 kg (239 lb) 11/10/2022 110.2 kg (243 lb) PHYSICAL EXAMINATION: General appearance: Well appearing, alert, in no acute distress, well-hydrated, well nourished. Skin: Skin color, texture, turgor normal, no suspicious rashes or lesions Head: Normocephalic, no masses, lesions, tenderness or abnormalities Eyes: Anicteric sclera. Pupils are equally round and reactive to light. Extraocular movements are intact. Back: Normal exam Lungs: Lungs clear to auscultation. No wheezing, rhonchi, rales Heart: RRR without murmur, gallop, or rubs. No ectopy Abdomen: Normal abdominal exam, Abdomen soft, non-tender. Bowel sounds normal. No masses, organomegaly Extremities: No deformities, edema, skin discoloration, clubbing or cyanosis. Good capillary refill. Musculoskeletal: No joint swelling, deformity, or tenderness Peripheral pulses: Normal Neuro: Gait normal. Reflexes normal and symmetric. Sensation grossly intact., no new focal deficits. His mouth shows less drooping. ASSESSMENT/PLAN: 1. History of stroke with residual effects - ICD9: 438.9, ICD10: I69.30 (primary diagnosis) - continue meds. Encouraged compliance. Get therapies done. Minimize risk factors. See neuro and vascular. - CONSULT TO PHYSICAL THERAPY - CONSULT TO SPEECH THERAPY - CONSULT TO DIRECTOR OF INDUSTRIAL RELATIONS 2. Controlled type 2 diabetes mellitus without complication, without long-term current use of insulin (HCC) - ICD9: 250.00, ICD10: E11.9 - Uncontrolled - increase meds. Consider endo although the issue has been more of compliance. Call sugars in one week. Close follow up. - DULAGLUTIDE 4.5 MG/0.5 ML SUBCUTANEOUS PEN INJECTOR - INSULIN LISPRO (U-100) 100 UNIT/ML SUBCUTANEOUS PEN 3. Altered mental status, unspecified altered mental status type - ICD9: 780.97, ICD10: R41.82 - better. 4. Bilateral carotid artery stenosis - ICD9: 433.10, 433.30, ICD10: I65.23 - see vscular. 5. Abdominal aortic aneurysm (AAA) without rupture, unspecified part ([facility]) - ICD9: 441.4, ICD10: I71.40 - US ABD AORTA - US DOPPLER AORTA 6. Bronchiectasis without complication ([facility]) - ICD9: 494.0, ICD10: J47.9 - per pulmonary 7. Stage 3 severe COPD by GOLD classification ([facility]) - ICD9: 496, ICD10: J44.9 - per pulmonary. 8. History of diabetes mellitus - ICD9: V12.29, ICD10: Z86.39 9. Cerebrovascular accident (CVA), unspecified mechanism ([facility]) - ICD9: 434.91, ICD10: I63.9 - CONSULT TO NEUROLOGY 10. Infarction of thalamus (HCC) - ICD9: 434.91, ICD10: I63.81 - CONSULT TO NEUROLOGY 11. CALLI (obstructive sleep apnea) - ICD9: 327.23, ICD10: G47.33 - encouraged tx 12. Lung nodules - ICD9: 793.19, ICD10: R91.8 - per pulmonary. Lia Markham MD documented in this encounter [facility] documented as of this encounter (statuses as of 10/05/2023) [facility] History of Past illness Narrative* Problem Noted Date Diagnosed Date Resolved Date History of diabetes mellitus 09/14/2023 09/14/2023 10/05/2023 Slurred speech 09/14/2023 09/14/2023 10/05/2023 History of stroke with residual effects 09/14/2023 10/05/2023 Neurological symptoms 09/07/2023 10/05/20232022 Change in mental status 09/05/202309/21 Abnormal Doppler ultrasound of carotid artery 08/12/20 21 10/05/2023 Eczematous dermatitis 07/30/20122022 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 09/21/2016 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 10/12/2011 09/21/2016 Actinic Keratosis (Premalignant AK): R nose 10/12/2011 09/21/2016 Cutaneous skin tags 10/12/2011 09/21/20 16 Dermatofibroma of forearm 10/12/2011 Actinic skin damage 10/12/2011 09/21/20 16 Contact dermatitis and other eczema due to other specified agent 08/01/2009 10/05/2023 Viral warts, unspecified 08/16/200611/2015 Inflamed seborrheic keratosis 08/16/2006 09/19/2012 Contact dermatitis and other eczema, due to unspecified cause 08/16/2006 09/19/2012 XEROSIS 08/16/2006 09/21/2016 ERECTILE DYSFUNCTION 04/06/2006 016 Overview: Adequate response with viagra OVERWEIGHT 04/06/2006 10/05/2023 Anxiety state, unspecified 08/19/2005 1 11/21/2015 Overview: Controlled with effexor Other malaise and fatigue 08/03/2005 Unspecified disorder of prostate 08/03/2005 08/07/2010 Hyperlipidemia 07/30/2015 documented as of this encounter (statuses as of 10/07/2023) [facility] History of Past illness Narrative* Problem Noted Date Diagnosed Date Resolved Date History of diabetes mellitus 09/14/2023 09/14/2023 10/05/2023 Slurred speech 09/14/2023 09/14/2023 10/05/2023 History of stroke with residual effects 09/14/2023 10/05/2023 Neurological symptoms 09/07/2023 10/05/20232022 Change in mental status 09/05/202309/21 Abnormal Doppler ultrasound of carotid artery 08/12/20 21 10/05/2023 Eczematous dermatitis 07/30/20122022 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 09/21/2016 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 10/12/2011 09/21/2016 Actinic Keratosis (Premalignant AK): R nose 10/12/2011 09/21/2016 Cutaneous skin tags 10/12/2011 09/21/20 16 Dermatofibroma of forearm 10/12/2011 Actinic skin damage 10/12/2011 09/21/20 16 Contact dermatitis and other eczema due to other specified agent 08/01/2009 10/05/2023 Viral warts, unspecified 08/16/200611/2015 Inflamed seborrheic keratosis 08/16/2006 09/19/2012 Contact dermatitis and other eczema, due to unspecified cause 08/16/2006 09/19/2012 XEROSIS 08/16/2006 09/21/2016 ERECTILE DYSFUNCTION 04/06/2006 016 Overview: Adequate response with viagra OVERWEIGHT 04/06/2006 10/05/2023 Anxiety state, unspecified 08/19/2005 1 11/21/2015 Overview: Controlled with effexor Other malaise and fatigue 08/03/2005 Unspecified disorder of prostate 08/03/2005 08/07/2010 Hyperlipidemia 07/30/2015 documented as of this encounter (statuses as of 10/12/2023) [facility] History of Past illness Narrative* Problem Noted Date Diagnosed Date Resolved Date History of diabetes mellitus 09/14/2023 09/14/2023 10/05/2023 Slurred speech 09/14/2023 09/14/2023 10/05/2023 History of stroke with residual effects 09/14/2023 10/05/2023 Neurological symptoms 09/07/2023 10/05/20232022 Change in mental status 09/05/202309/21 Abnormal Doppler ultrasound of carotid artery 08/12/20 21 10/05/2023 Eczematous dermatitis 07/30/20122022 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 09/21/2016 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 10/12/2011 09/21/2016 Actinic Keratosis (Premalignant AK): R nose 10/12/2011 09/21/2016 Cutaneous skin tags 10/12/2011 09/21/20 16 Dermatofibroma of forearm 10/12/2011 Actinic skin damage 10/12/2011 09/21/20 16 Contact dermatitis and other eczema due to other specified agent 08/01/2009 10/05/2023 Viral warts, unspecified 08/16/200611/2015 Inflamed seborrheic keratosis 08/16/2006 09/19/2012 Contact dermatitis and other eczema, due to unspecified cause 08/16/2006 09/19/2012 XEROSIS 08/16/2006 09/21/2016 ERECTILE DYSFUNCTION 04/06/2006 016 Overview: Adequate response with viagra OVERWEIGHT 04/06/2006 10/05/2023 Anxiety state, unspecified 08/19/2005 1 11/21/2015 Overview: Controlled with effexor Other malaise and fatigue 08/03/2005 Unspecified disorder of prostate 08/03/2005 08/07/2010 Hyperlipidemia 07/30/2015 documented as of this encounter (statuses as of 10/22/2023) [facility] History of Past illness Narrative* Problem Noted Date Diagnosed Date Resolved Date History of diabetes mellitus 09/14/2023 09/14/2023 10/05/2023 Slurred speech 09/14/2023 09/14/2023 10/05/2023 History of stroke with residual effects 09/14/2023 10/05/2023 Neurological symptoms 09/07/2023 10/05/20232022 Change in mental status 09/05/202309/21 Abnormal Doppler ultrasound of carotid artery 08/12/20 21 10/05/2023 Eczematous dermatitis 07/30/20122022 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 09/21/2016 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 10/12/2011 09/21/2016 Actinic Keratosis (Premalignant AK): R nose 10/12/2011 09/21/2016 Cutaneous skin tags 10/12/2011 09/21/20 16 Dermatofibroma of forearm 10/12/2011 Actinic skin damage 10/12/2011 09/21/20 16 Contact dermatitis and other eczema due to other specified agent 08/01/2009 10/05/2023 Viral warts, unspecified 08/16/200611/2015 Inflamed seborrheic keratosis 08/16/2006 09/19/2012 Contact dermatitis and other eczema, due to unspecified cause 08/16/2006 09/19/2012 XEROSIS 08/16/2006 09/21/2016 ERECTILE DYSFUNCTION 04/06/2006 016 Overview: Adequate response with viagra OVERWEIGHT 04/06/2006 10/05/2023 Anxiety state, unspecified 08/19/2005 1 11/21/2015 Overview: Controlled with effexor Other malaise and fatigue 08/03/2005 Unspecified disorder of prostate 08/03/2005 08/07/2010 Hyperlipidemia 07/30/2015 documented as of this encounter (statuses as of 11/03/2023) [facility] History of Past illness Narrative* Problem Noted Date Diagnosed Date Resolved Date History of diabetes mellitus 09/14/2023 09/14/2023 10/05/2023 Slurred speech 09/14/2023 09/14/2023 10/05/2023 History of stroke with residual effects 09/14/2023 10/05/2023 Neurological symptoms 09/07/2023 10/05/20232022 Change in mental status 09/05/202309/21 Abnormal Doppler ultrasound of carotid artery 08/12/2010/05/2023 Eczematous dermatitis 07/30/20122022 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 09/21/2016 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 10/12/2011 09/21/2016 Actinic Keratosis (Premalignant AK): R nose 10/12/2011 09/21/2016 Cutaneous skin tags 10/12/2011 09/21/20 16 Dermatofibroma of forearm 10/12/2011 Actinic skin damage 10/12/2011 09/21/20 16 Contact dermatitis and other eczema due to other specified agent 08/01/2009 10/05/2023 Viral warts, unspecified 08/16/200611/2015 Inflamed seborrheic keratosis 08/16/2006 09/19/2012 Contact dermatitis and other eczema, due to unspecified cause 08/16/2006 09/19/2012 XEROSIS 08/16/2006 09/21/2016 ERECTILE DYSFUNCTION 04/06/2006 016 Overview: Adequate response with viagra OVERWEIGHT 04/06/2006 10/05/2023 Anxiety state, unspecified 08/19/2005 1 11/21/2015 Overview: Controlled with effexor Other malaise and fatigue 08/03/2005 Unspecified disorder of prostate 08/03/2005 08/07/2010 Hyperlipidemia 07/30/2015 documented as of this encounter (statuses as of 11/11/2023) [facility]10-16-2023 NoteHNO ID: [id number] Author: Lia Markham MD Service: ? Author Type: Physician Type: Progress Notes Filed: 09/05/2023 8:10 PM Note Text: Patient presents with: Diabetes: Glucose has been up for a couple weeks. HPI: Patient presents today for office visit for follow up. Has not been seen here for his sugars since 11/11. Last a1c was just around a year ago and was 7.0 He had not been back in as advised or checking sugars. Was recently advised to go to Er on 09/02 and apparently they did not. No recent head injury. No headache. A week ago from last Tuesday starting not acting himself. Seems confused. Seems to be worse as things have progressed. Has had some speech issues. His therapist thought he needed evaluated. No no new numbness or weakness. Walking has been worse over the last two weeks. No chest pain or shortness of breath No palpitations. He does not seem like himself. No dysuria. No cough. Is now drooling and is new. Still seeing pulmonary. DM: Reports overall feeling well. Medication side effects: No. Home sugar check frequency/results:2-3 times daily because of being out of control Had a reading of 488 last week. Hypoglycemic spells: No. Watching diet: Yes. Unexpected weight loss: Did lose but states was planned. Polyuria, polydipsia: No. Vision Changes: No. Foot lesions or numbness or pain: No. Humalog is 17 units with meals but no sliding scale. Fall last week on deck. 380 glucose when EMS came to help him up. Mouth will droop when eating on side where he had his stroke. Apparently stopped his asa on his own as well. See nurse triage note from 09/02: Patient's calls in concerned about patient. Patient was working out today. [place] refused to work out with patient due to patient left side was droopy. When they got home checked patient's blood sugar and it was 488. reports that patient has been more confused and has had several episodes where left side is drooping when eating. Patient has also had frequent urination. Patient does not check blood sugars like he should check them. could not tell me what patient's blood sugars run due to patient not taking blood sugars. Nurse Triage assessment completed with protocol recommending for disposition of Go to ED now. Care advice reviewed with patient's , stated understanding. MEDICATIONS: Current Outpatient Medications Medication Sig insulin lispro (HUMALOG KWIKPEN INSULIN) 100 unit/mL 17 units at each meal In addition to sliding scale insulin needles, DISPOSABLE, (EASY TOUCH) 31 gauge x 5/16 Use one pen needle four times daily insulin glargine 100 unit/mL (3 mL) Inject 50 Units subcutaneously daily at bedtime. pzpakltluib-dnzxvqeqy-vylcipem (TRELEGY ELLIPTA) 100-62.5-25 mcg inhalation powder Inhale 1 Puff as instructed once daily. atorvastatin (LIPITOR) 80 mg tablet TAKE 1 TABLET DAILY AT BEDTIME FOR CHOLESTEROL ipratropium-albuterol (DUONEB) 0.5 mg-3 mg(2.5 mg base)/3 mL nebu Use twice daily and every four hours as needed CPAP Initiate Auto PAP @ 5-20 cm of water with humidification. Mask (per patient preference) optional chin strap (if indicated) , filters, tubing, humidifier and lifetime supplies. Replacement Machine. dulaglutide (TRULICITY) 3 mg/0.5 mL pen injector Inject 3 mg subcutaneously one time a week. albuterol HFA (PROVENTIL HFA, VENTOLIN HFA) 90 mcg/actuation inhaler Inhale 2 Puffs as instructed every 4 hours as needed. venlafaxine ER (EFFEXOR XR) 150 mg 24 hr capsule Take 1 capsule by mouth once daily. omeprazole (PRILOSEC) 20 mg capsule Take 1 capsule by mouth once daily. blood sugar diagnostic (BLOOD GLUCOSE TEST) test strip Test blood sugar(s) 2 times daily. Dx: Type 2 DM - Controlled E11.9 Insulin: Yes Lancets lancets Test blood sugar(s) 2 times daily. Dx: Type 2 DM - Controlled E11.9 Insulin: Yes Blood Sugar Diagnostic, Drum (ACCU-CHEK COMPACT TEST) strp Test twice daily or as directed. DX: 250.02 Insulin: Yes aspirin, enteric coated (ASPIRIN, ENTERIC COATED) 81 mg EC tablet Take 1 tablet by mouth once daily. clobetasol 0.05 % ointment Apply to affected spot(s) or patches of eczema and psoriasis of hands (palms and dorsal areas) selectively qday to bid until clear as directed and tolerated; taper off as able to bland emollient moisturizing cream (eg Cetaphil Cream) as able. AVOID face, eyes/eyelids, and deep fold areas. lancets(ACCU-CHEK SOFTCLIX LANCETS) Test Blood sugar once daily. 250.02 No current facility-administered medications for this visit. ALLERGIES: ALLERGIES Allergen Reactions Metformin Diarrhea Penicillins PAST MEDICAL HISTORY Diagnosis Date ANXIETY STATE NOS 08/19/2005 Controlled with effexor Benign neoplasm of colon 2010 Dysmetabolic syndrome X Hyperlipidemia Lung nodule nodule no longer seen in 2016 CALLI on CPAP Other specified disorder of penis erectile dysfunction PER (more content not included)...[facility]10-16-2023 Miscellaneous Notes* Telephone Encounter - Karen Varghese Ma - 09/05/2023 9:34 AM EDT Pt scheduled appt tonight. Karen Varghese Ma * Telephone Encounter - Karen Varghese Ma - 09/05/2023 8:27 AM EDT Asked pt if he was seen in ED as advised on 09/02/23. Notified pt he needs an OV. Offerd to assist him in scheduling. Wait pt response. Karen aVrghese Ma [facility] Miscellaneous Notes* Telephone Encounter - Alicia Reyes LPN - 07/11/2023 8:19 AM EDT Patient has been identified by name and date of : Yes Requested Prescriptions Pending Prescriptions Disp Refills insulin needles, DISPOSABLE, (EASY TOUCH) 31 gauge x 5/16 400 Each 3 Sig: Use one pen needle four times daily RX INSTRUCTIONS: Patient aware RX will be sent to pharmacy. No need to notify patient. Alicia Reyes LPN documented in [facility] Miscellaneous Notes* Telephone Encounter - Lia Markham MD - 06/03/2023 7:58 AM EDT Does not look like he picked up the message. Can we call him with my response. I do not think he realizes it is the same identical med...just called different. [facility] in [facility]23 NoteHNO ID: [id number] Author: Yoly Ornelas PA-C Service: ? Author Type: Physician Rn Physician Office Type: Progress Notes Filed: 05/02/2023 11:39 AM Note Text: Patient: Olga Woodson PCP: Lia Markham MD CC: COPD HPI: Olga Woodson 67 year old male 1.5 ppd smoker for 50 years with PMH significant for psoriasis, anxiety, HLD, DM CVA, CALLI on CPAP recently seen for evaluation of SOB. PFTs consistent with moderately severe COPD. Started Trelegy Ellipta with as needed albuterol, recommended weight loss, and continued abstinence from tobacco. He did stop smoking in 2019 on Chantix. However, he started smoking again soon after . Currently smoking less than a pack per day. Since the last Pulmonary Clinic visit 12/28/2022, the patient has not required ED care for exacerbation. There has been no hospital admission for exacerbation. Claims to be consistently compliant with prescribed maintenance Rx Trelegy. Tolerating Trelegy well without tremors, urinary retention, oral sores or hoarseness. He is not sure if Trelegy is making a difference in his symptoms. Does not use rescue bronchodilator. States he has tried the nebulizer and did not notice a difference in his symptoms. Daily cough. Non-productive. No hemoptysis. No wheezing. No dyspnea at rest. Exertional dyspnea with exercising at the gym. PAST MEDICAL HISTORY Diagnosis Date ANXIETY STATE NOS 08/19/2005 Controlled with effexor Benign neoplasm of colon 2010 Dysmetabolic syndrome X Hyperlipidemia Lung nodule nodule no longer seen in 2016 CALLI on CPAP Other specified disorder of penis erectile dysfunction PERS HX TOBACCO USE 04/06/2006 Cigarettes 1.5 PPD Psoriasis Skin cancer Stroke (cerebrum) (HCC) Tobacco use disorder Type II or unspecified type diabetes mellitus without mention of complication, uncontrolled 08/07/2010 Diagnosed 07/2010 Allergies: Metformin Diarrhea Penicillins ltcnvafqqaq-zovrodxnd-hhzxfojo (TRELEGY ELLIPTA) 100-62.5-25 mcg inhalation powder Inhale 1 Puff as instructed once daily. insulin lispro (HUMALOG KWIKPEN INSULIN) 100 unit/mL 17 units at each meal In addition to sliding scale atorvastatin (LIPITOR) 80 mg tablet TAKE 1 TABLET DAILY AT BEDTIME FOR CHOLESTEROL insulin glargine 100 unit/mL (3 mL) Inject 50 Units subcutaneously daily at bedtime. ipratropium-albuterol (DUONEB) 0.5 mg-3 mg(2.5 mg base)/3 mL nebu Use twice daily and every four hours as needed CPAP Initiate Auto PAP @ 5-20 cm of water with humidification. Mask (per patient preference) optional chin strap (if indicated) , filters, tubing, humidifier and lifetime supplies. Replacement Machine. dulaglutide (TRULICITY) 3 mg/0.5 mL pen injector Inject 3 mg subcutaneously one time a week. albuterol HFA (PROVENTIL HFA, VENTOLIN HFA) 90 mcg/actuation inhaler Inhale 2 Puffs as instructed every 4 hours as needed. venlafaxine ER (EFFEXOR XR) 150 mg 24 hr capsule Take 1 capsule by mouth once daily. omeprazole (PRILOSEC) 20 mg capsule Take 1 capsule by mouth once daily. blood sugar diagnostic (BLOOD GLUCOSE TEST) test strip Test blood sugar(s) 2 times daily. Dx: Type 2 DM - Controlled E11.9 Insulin: Yes insulin needles, DISPOSABLE, (EASY TOUCH) 31 gauge x 5/16 Use one pen needle four times daily Lancets lancets Test blood sugar(s) 2 times daily. Dx: Type 2 DM - Controlled E11.9 Insulin: Yes Blood Sugar Diagnostic, Drum (ACCU-CHEK COMPACT TEST) strp Test twice daily or as directed. DX: 250.02 Insulin: Yes aspirin, enteric coated (ASPIRIN, ENTERIC COATED) 81 mg EC tablet Take 1 tablet by mouth once daily. clobetasol 0.05 % ointment Apply to affected spot(s) or patches of eczema and psoriasis of hands (palms and dorsal areas) selectively qday to bid until clear as directed and tolerated; taper off as able to bland emollient moisturizing cream (eg Cetaphil Cream) as able. AVOID face, eyes/eyelids, and deep fold areas. lancets(ACCU-CHEK SOFTCLIX LANCETS) Test Blood sugar once daily. 250.02 Social History Tobacco Use Smoking status: Some Days Packs/day: 1.50 Years: 50.00 Pack years: 75.00 Types: Cigarettes Last attempt to quit: 2020 Years since quittin.4 Smokeless tobacco: Never Tobacco comments: Restarted smoking over the holidays Substance Use Topics Alcohol use: Yes Comment: occasionally beer or liquor Drug use: Yes Comment: Marijuana couple times a week. Family History Problem Relation Age of Onset Cancer Mother Breast Cancer, thyroid Alzheimer's Disease Father Allergies Father other (Pre diabetes) Brother Allergies Brother PAST SURGICAL HISTORY Procedure Laterality Date COLONOSCOPY FLX DX W/COLLJ SPEC WHEN PFRMD 12/08/2010 Colonoscopy, due 2013 COLONOSCOPY FLX DX W/COLLJ SPEC WHEN PFRMD 10/06/2021 CT BRAIN 07/14/2010 neg, white matter changes associated with small vessel disease CT CHEST W IVCON 07/01/2015 resolution pleural ef (more content not included)...[facility] 04-04-2023 Miscellaneous Notes* Telephone Encounter - Reg Broussard LPN - 04/04/2023 9:01 AM EDT Faxed. Reg Broussard LPN * Telephone Encounter - Isabela Hernández APRN.JERI - 04/01/2023 4:51 PM EDT Form completed. Can returned as requested. * Telephone Encounter - Reg Broussard LPN - 03/30/2023 5:04 PM EDT Type of form: CMN for DME Form received via fax When form is completed, Fax form to [phone] Form has been forwarded to Nurse Practictioner: JERI Canchola LPN documented in [facility] encounterC[facility]05[facility]23 Miscellaneous Notes* Telephone Encounter - Marcy Cedillo LPN - 03/22/2023 10:35 AM EDT Patient phones requesting refills as follows: Requested Prescriptions Pending Prescriptions Disp Refills mwgqlcaswum-ywfmjcwin-nitygesy (TRELEGY ELLIPTA) 100-62.5-25 mcg inhalation powder 1 Each 3 Sig: Inhale 1 Puff as instructed once daily. Please review and advise. Marcy Cedillo LPN documented in this encounterC[facility]05-[facility]-2023 Miscellaneous Notes* Telephone Encounter - Alicia Reyes LPN - 03/21/2023 8:15 AM EDT Patient has been identified by name and date of : Yes Requested Prescriptions Pending Prescriptions Disp Refills insulin lispro (HUMALOG KWIKPEN INSULIN) 100 unit/mL 15 Each 1 Si units at each meal In addition to sliding scale RX INSTRUCTIONS: Patient aware RX will be sent to pharmacy. No need to notify patient. Aliica Reyes LPN documented in this encounterC[facility]03-24-2023 Miscellaneous Notes* Telephone Encounter - Alicia Reyes LPN - 02/11/2023 3:04 PM EDT Referral faxed as requested. * Telephone Encounter - Lia Markham MD - 02/11/2023 12:35 PM EDT Referral placed. * Telephone Encounter - Alicia Reyes LPN - 02/11/2023 11:27 AM EDT Patient has been identified by name and date of : Yes Requested Prescriptions Pending Prescriptions Disp Refills atorvastatin (LIPITOR) 80 mg tablet 90 tablet 3 Sig: TAKE 1 TABLET DAILY AT BEDTIME FOR CHOLESTEROL RX INSTRUCTIONS: Patient aware RX will be sent to pharmacy. No need to notify patient. Alicia Reyes LPN Also asking for consult to urology. Urinary urgency and leaking wants to see Dr Church at [facility] needsreferral sent over there. documented in this encounterC[facility]03-20-2023 Miscellaneous Notes* Telephone Encounter - Alicia Reyes LPN - 02/07/2023 8:16 AM EDT Patient has been identified by name and date of : Yes Requested Prescriptions Pending Prescriptions Disp Refills insulin glargine 100 unit/mL (3 mL) 15 Each 3 Sig: Inject 50 Units subcutaneously daily at bedtime. RX INSTRUCTIONS: Patient aware RX will be sent to pharmacy. No need to notify patient. Alicia Reyes LPN documented in this [facility]23 NoteHNO ID: [id number] Author: Carly Banks MD Service: ? Author Type: Physician Type: Progress Notes Filed: 12/28/2022 11:06 AM Note Text: . Respiratory [place] Note Patient name: Olga Woodson PCP: Lia Markham MD CC: Follow-up COPD HPI: Olga Woodson 67 year old male 1.5 ppd smoker for 50 years with PMH significant for psoriasis, anxiety, HLD, DM CVA, CALLI on CPAP recently seen for evaluation of SOB. PFTs consistent with moderately severe COPD. Started Trelegy Ellipta with as needed albuterol, recommended weight loss, and continued abstinence from tobacco. He did stop smoking in 2019. Today he admits to starting smoking again over the holidays. He is not an every day smoker. States that a pack lasts him about a week. No difficulty with the Trelegy Ellipta, i.e. tremors or oral sores or hoarseness. Has not really noted much improvement in his dyspnea. This remains his main pulmonary symptom. No nocturnal awakenings. No wheezing, excessive sputum production, chest pain. He has had episodes of coughing up phlegm IR to exercise. He feels as if the liquid is originating from his stomach and not from his chest. Denies any GERD symptoms. Exercise endurance has not improved with initiation of inhaler therapy. He has used his albuterol a few times but has not noted much difference in his dyspnea. No recent upper respiratory infection, hospitalization or new medical problems. COPD Assessment Test I never cough 0 1 2 3 4 5 I cough all the time; Score 3 I have no phlegm 0 1 2 3 4 5 My chest is completely full of phlegm; Score 1 My chest does not feel tight at all 0 1 2 3 4 5 My chest chest feels very tight; Score 0 When I walk up a hill or one flight of stairs I am not breathless 0 1 2 3 4 5 When I walk up a hill or one flight or stairs I am very breathless; Score 3 I am not limited doing any activities at home 0 1 2 3 4 5 I am very limited doing activities at home; Score 2 I am confident leaving my home despite my lung condition 0 1 2 3 4 5 I am not at all confident leaving my home because of my lung condition; Score 2 I sleep soundly 0 1 2 3 4 5 don't sleep soundly because of my lungs; Score 0 I have lots of energy 0 1 2 3 4 5 I have no energy at all; Score 4 Total Score: 15 PAST MEDICAL HISTORY Diagnosis Date ANXIETY STATE NOS 08/19/2005 Controlled with effexor Benign neoplasm of colon 2010 Dysmetabolic syndrome X Hyperlipidemia Lung nodule nodule no longer seen in 2016 CALLI on CPAP Other specified disorder of penis erectile dysfunction PERS HX TOBACCO USE 04/06/2006 Cigarettes 1.5 PPD Psoriasis Skin cancer Stroke (cerebrum) (HCC) Tobacco use disorder Type II or unspecified type diabetes mellitus without mention of complication, uncontrolled 08/07/2010 Diagnosed 07/2010 ALLERGIES Allergen Reactions Metformin Diarrhea Penicillins ipratropium-albuterol (DUONEB) 0.5 mg-3 mg(2.5 mg base)/3 mL nebu Use twice daily and every four hours as needed CPAP Initiate Auto PAP @ 5-20 cm of water with humidification. Mask (per patient preference) optional chin strap (if indicated) , filters, tubing, humidifier and lifetime supplies. Replacement Machine. dulaglutide (TRULICITY) 3 mg/0.5 mL pen injector Inject 3 mg subcutaneously one time a week. ohbkfkwvimm-ppyhjlucm-krwtbvnt (TRELEGY ELLIPTA) 100-62.5-25 mcg inhalation powder Inhale 1 Puff as instructed once daily. albuterol HFA (PROVENTIL HFA, VENTOLIN HFA) 90 mcg/actuation inhaler Inhale 2 Puffs as instructed every 4 hours as needed. venlafaxine ER (EFFEXOR XR) 150 mg 24 hr capsule Take 1 capsule by mouth once daily. atorvastatin (LIPITOR) 80 mg tablet TAKE 1 TABLET DAILY AT BEDTIME FOR CHOLESTEROL omeprazole (PRILOSEC) 20 mg capsule Take 1 capsule by mouth once daily. insulin lispro (HUMALOG KWIKPEN INSULIN) 100 unit/mL 17 units at each meal In addition to sliding scale blood sugar diagnostic (BLOOD GLUCOSE TEST) test strip Test blood sugar(s) 2 times daily. Dx: Type 2 DM - Controlled E11.9 Insulin: Yes insulin glargine (LANTUS SOLOSTAR, BASAGLAR KWIKPEN) 100 unit/mL (3 mL) Inject 50 Units subcutaneously daily at bedtime. insulin needles, DISPOSABLE, (EASY TOUCH) 31 gauge x 5/16 Use one pen needle four times daily Lancets lancets Test blood sugar(s) 2 times daily. Dx: Type 2 DM - Controlled E11.9 Insulin: Yes Blood Sugar Diagnostic, Drum (ACCU-CHEK COMPACT TEST) strp Test twice daily or as directed. DX: 250.02 Insulin: Yes aspirin, enteric coated (ASPIRIN, ENTERIC COATED) 81 mg EC tablet Take 1 tablet by mouth once daily. clobetasol 0.05 % ointment Apply to affected spot(s) or patches of eczema and psoriasis of hands (palms and dorsal areas) selectively qday to bid until clear as directed and tolerated; taper off as able to bland emollient moisturizing cream (eg Cetaphil Cream) as able. AVOID face, eyes/eyelids, and deep fold areas. (more content not included)...[facility]12-15-2022 Miscellaneous Notes* Telephone Encounter - Zion Calhoun PA-C - 11/04/2022 6:35 PM EST The following approved medication requests have been transmitted electronically. Requested Prescriptions Signed Prescriptions Disp Refills dulaglutide (TRULICITY) 3 mg/0.5 mL pen injector 12 Each 3 Sig: Inject 3 mg subcutaneously one time a week. Zion Calhoun PA-C documented in this encounterC[facility]12-02-2022 History of Present illness Narrative* Lia Markham MD - 10/22/2022 2:16 PM EST Patient presents with: Follow Up HPI: Patient presents today for office visit for follow up. PSYCH: Increased Effexor at last OV to 150 mg daily. Moods are better and tolerating med. No concerns. PULM: Saw Dr. Banks today 10/22/22 due to shortness of breath. PFT done 08/2022 Review of PFT shows moderately severe obstruction with partial reversibility, airtrapping and normal diffusion. OPHTHALMOLOGY: Saw Dr. Barksdale on 10/21/22. No diabetic retinopathy detected. Needs to get follow up cbc. Reviewed testing including stress test and pft's. See previous ov: Needs new CPAP machine. Cpap machine is 8 years. Machine is saying on it that it needs replaced. CALLI: uses CPAP regularly. Sleeps well: Yes. Feels rested on awakening: Sometimes Daytime fatigue: Yes Snoring: No Benefiting from its use. Has noted increasing shortness of breath with exertion. Has been there about a year. No chest pain No swelling. Improves with rest. No wheezing. Does cough a little. Has a smoker's hack. Quit a year and a half ago. MEDICATIONS: Current Outpatient Medications Medication Sig ibyxscpkxva-musiwffmx-kpfnnglx (TRELEGY ELLIPTA) 100-62.5-25 mcg inhalation powder Inhale 1 Puff asinstructed once daily. albuterol HFA (PROVENTIL HFA, VENTOLIN HFA) 90 mcg/actuation inhaler Inhale 2 Puffs as instructed every 4 hours as needed. CPAP Initiate Auto PAP @ 5-20 cm of water with humidification. Mask (per patient preference) optional chin strap (if indicated) , filters, tubing, humidifier and lifetime supplies. Replacement Machine. atorvastatin (LIPITOR) 80 mg tablet TAKE 1 TABLET DAILY AT BEDTIME FOR CHOLESTEROL venlafaxine ER (EFFEXOR XR) 150 mg 24 hr capsule Take 1 capsule by mouth once daily. omeprazole (PRILOSEC) 20 mg capsule Take 1 capsule by mouth once daily. insulin lispro (HUMALOG KWIKPEN INSULIN) 100 unit/mL 17 units at each meal In addition to sliding scale blood sugar diagnostic (BLOOD GLUCOSE TEST) test strip Test blood sugar(s) 2 times daily. Dx: Type 2 DM - Controlled E11.9 Insulin: Yes insulin glargine (LANTUS SOLOSTAR, BASAGLAR KWIKPEN) 100 unit/mL (3 mL) Inject 50 Units subcutaneously daily at bedtime. insulin needles, DISPOSABLE, (EASY TOUCH) 31 gauge x 5/16 Use one pen needle four times daily dulaglutide (TRULICITY) 3 mg/0.5 mL pen injector Inject 3 mg subcutaneously one time a week. Lancets lancets Test blood sugar(s) 2 times daily. Dx: Type 2 DM - Controlled E11.9 Insulin: Yes Blood Sugar Diagnostic, Drum (ACCU-CHEK COMPACT TEST) strp Test twice daily or as directed. DX: 250.02 Insulin: Yes aspirin, enteric coated (ASPIRIN, ENTERIC COATED) 81 mg EC tablet Take 1 tablet by mouth once daily. clobetasol 0.05 % ointment Apply to affected spot(s) or patches of eczema and psoriasis of hands (palms and dorsal areas) selectively qday to bid until clear as directed and tolerated; taper off as able to bland emollient moisturizing cream (eg Cetaphil Cream) as able. AVOID face, eyes/eyelids, anddeep fold areas. lancets(ACCU-CHEK SOFTCLIX LANCETS) Test Blood sugar once daily. 250.02 No current facility-administered medications for this visit. ALLERGIES: ALLERGIES Allergen Reactions Metformin Diarrhea Penicillins PAST MEDICAL HISTORY Diagnosis Date ANXIETY STATE NOS 08/19/2005 Controlled with effexor Benign neoplasm of colon 2010 Dysmetabolic syndrome X Hyperlipidemia Lung nodule nodule no longer seen in 2016 CALLI on CPAP Other specified disorder of penis erectile dysfunction PERS HX TOBACCO USE 04/06/2006 Cigarettes 1.5 PPD Psoriasis Skin cancer Stroke (cerebrum) (HCC) Tobacco use disorder Type II or unspecified type diabetes mellitus without mention of complication, uncontrolled 08/07/2010 Diagnosed 07/2010 PAST SURGICAL HISTORY Procedure Laterality Date COLONOSCOPY FLX DX W/COLLJ SPEC WHEN PFRMD 12/08/2010 Colonoscopy, due 2013 COLONOSCOPY FLX DX W/COLLJ SPEC WHEN PFRMD 10/06/2021 CT BRAIN 07/14/2010 neg, white matter changes associated with small vessel disease CT CHEST W IVCON 07/01/2015 resolution pleural effusion; small pleural based nodule, decrease right hilar lymphadenopathy, mildemphysema CTA CHEST 02/17/2015 No PE; right hium atelectasis vs small nodule, right hilar lymphadenopathy; right pleural effusion EXTER CAROTIDS UNI 2010 NEGATIVE EYE SURGERY HX NM CARDIAC PERF STRESS/EXERCISE 07/20/2011 WNL PAST SURGICAL HISTORY OF 89 Testicular as child PAST SURGICAL HISTORY OF 07/13/2012 Right rotator cuff RMVL LENS MATERIAL PHACOFRAGMENTATION ASPIR 01/2011, 02/2011 Cataract Extraction bilateral SKIN BIOPSY HX SPHINCTEROTOMY ANAL DIVISION SPHINCTER SPX 2003 FAMILY HISTORY Problem Relation Age of Onset Cancer Mother Breast Cancer, thyroid Alzheimer's Disease Father Allergies Father other (Pre diabetes) Brother Allergies Brother Social History Tobacco Use Smoking status: Former Packs/day: 1.50 Years: 50.00 Pack years: 75.00 Types: Cigarettes Quit date: 2020 Years since quittin.9 Smokeless tobacco: Never Tobacco comments: Quit 2020 Substance Use Topics Alcohol use: Yes Comment: occasionally beer or liquor Drug use: Yes Comment: Marijuana couple times a week. Reviewed current medications, allergies, past medical history, surgical history, family history andsocial history today. REVIEW OF SYSTEMS All other reviewed and negative other than HPI. VITALS: BP 134/66 Pulse 87 Ht 182.2 cm (5' 11.75 ) Wt 109.1 kg (240 lb 9.6 oz) SpO2 95% BMI 32.86kg/m Last 4 Encounter Wt Readings: Date: Wt: 10/22/2022 109.8 kg (242 lb) 09/06/2022 110.2 kg (242 lb 14.4 oz) 09/03/2022 110.5 kg (243 lb 9.6 oz) 08/20/2022 111.1 kg (245 lb) PHYSICAL EXAMINATION: General appearance: Well appearing, alert, in no acute distress, well-hydrated, well nourished. Skin: Skin color, texture, turgor normal, no suspicious rashes or lesions Head: Normocephalic, no masses, lesions, tenderness or abnormalities Back: Normal exam Lungs: Lungs clear to auscultation. No wheezing, rhonchi, rales Heart: RRR without murmur, gallop, or rubs. No ectopy Abdomen: Normal abdominal exam, Abdomen soft, non-tender. Bowel sounds normal. No masses, organomegaly Extremities: No deformities, edema, skin discoloration, clubbing or cyanosis. Good capillary refill. ASSESSMENT/PLAN: 1. Stage 3 severe COPD by GOLD classification ([facility]) - ICD9: 496, ICD10: J44.9 (primary diagnosis) - continue meds. 2. Mild depressive disorder - ICD9: 311, ICD10: F32.A - VENLAFAXINE ER 150 MG CAPSULE,EXTENDED RELEASE 24 HR 3. Bronchiectasis without complication ([facility]) - ICD9: 494.0, ICD10: J47.9 - stable. Discussed importance of taking meds regularly. 4. Controlled type 2 diabetes mellitus without complication, without long-term current use of insulin ([facility]) - ICD9: 250.00, ICD10: E11.9 improved control - Continue current medications Lia Markham MD documented in this encounterC[facility]12-02-2022 History of Present illness Narrative* Carly Banks MD - 10/22/2022 8:00 AM EST Images from the original note were not included. . Respiratory [place] Note Patient name: Olga Woodson PCP: Lia Markham MD Referring Physician: same Consultation requested by Dr. Markham for an opinion regarding SOB. My final recommendations will be communicated back to the requesting physician by way of shared Medical record or letter to requestingphysician via US mail. CC: WRIGHT HPI: Olga Woodson 67 year old obese male former 1.5 pack a day smoker for 50 years with PMH significant for HLD, psoriasis, anxiety, diabetes, stroke, CALLI on CPAP being referred for evaluation of shortness of breath. Started a working out with a clinical trainer who noticed significant labored breathing.He notes SOB with his warm up but able to complete his exercise routine but not progressing as would be expected. Other symptoms include a smoker's cough that can occur anytime of the day. Bronchial in nature but no significant sputum production. No wheezing or chest pressure. No nocturnal symptoms. Patient denies a problem, stating his WRIGHT is not severe. feels that his WRIGHT is worse and is limiting his activity. He endorses significant fatigue. No history of asthma. No frequent bronchitis or pneumonia. Did not notice much improvement when he received albuterol during his PFT. DATA: PFT 08/2022: Review of PFT shows moderately severe obstruction with partial reversibility, airtrapping and normal diffusion Labs: Recent CBC normal H/H, CBC and no eosinophilia Component Ref Range & Units 1 mo ago NT Pro BNP <125 pg/mL <50 Imaging / Diagnostic Studies: DATE OF EXAM: Sep 06 2022 1:24PM [facility] 0541 - CT CHEST WO IVCON / EXAMINATION: CHEST CT WITHOUT CONTRAST CLINICAL HISTORY: Shortness of breath. Comparison: CT chest on 09/04/2020 RESULT: Limitations: None. Lines, tubes, and devices: None. Lung parenchyma and airways: The central airways are patent, with diffuse bronchial wall thickening. There are numerous tiny centrilobular nodule in the bilateral lungs involving the right lower lobe, right middle lobe and left upper lobe. Foci of calcifications/calcified granuloma is demonstrated in the right lung, similar to prior study. Mild paraseptal emphysema is noted, with a stable bulla in the anterior left upper lung. No consolidations. No masses. No reticulations, honeycombing, traction bronchiolectasis or architectural distortion. Pleural space: No pleural effusion or pneumothorax. No pleural thickening. Lower neck, lymph nodes, and mediastinum: The imaged thyroid gland is normal. No lymphadenopathy inthe supraclavicular, axillary, mediastinal, or hilar regions. Heart, pericardium, and thoracic vessels: The thoracic aorta and main pulmonary artery are normal in caliber. Atherosclerotic calcification demonstrated in the thoracic aorta and its branches. The cardiac chambers are normal in size. Linear and punctate coronary artery atherosclerotic calcifications are noted, although the study is not optimized for coronary assessment. No pericardial effusion or thickening. Bones and soft tissues: No destructive bone lesion. The spine shows degenerative changes. Chest wall soft tissue is unremarkable. Upper abdomen: Limited study through the upper abdomen demonstrates no interval changes. IMPRESSION: Numerous tiny centrilobular nodules in the bilateral lungs, likely secondary to inflammatory/infectious process or small airway disease. Mild emphysema. No CT evidence of interstitial lung disease. Remote granulomatous disease. I personally reviewed the images as well as with the patient and his which shows emphysema, centrilobular nodules and bronchial wall thickening Recent stress test without ischemia but decreased functional capacity PAST MEDICAL HISTORY Diagnosis Date ANXIETY STATE NOS 08/19/2005 Controlled with effexor Benign neoplasm of colon 2010 Dysmetabolic syndrome X Hyperlipidemia Lung nodule nodule no longer seen in 2015 CALLI on CPAP Other specified disorder of penis erectile dysfunction PERS HX TOBACCO USE 04/06/2006 Cigarettes 1.5 PPD Psoriasis Skin cancer Stroke (cerebrum) (HCC) Tobacco use disorder Type II or unspecified type diabetes mellitus without mention of complication, uncontrolled 08/07/2010 Diagnosed 07/2010 ALLERGIES Allergen Reactions Metformin Diarrhea Penicillins lslsphkcwtz-pbzlxjngz-qsbqlxlw (TRELEGY ELLIPTA) 100-62.5-25 mcg inhalation powder Inhale 1 Puff asinstructed once daily. albuterol HFA (PROVENTIL HFA, VENTOLIN HFA) 90 mcg/actuation inhaler Inhale 2 Puffs as instructed every 4 hours as needed. CPAP Initiate Auto PAP @ 5-20 cm of water with humidification. Mask (per patient preference) optional chin strap (if indicated) , filters, tubing, humidifier and lifetime supplies. Replacement Machine. atorvastatin (LIPITOR) 80 mg tablet TAKE 1 TABLET DAILY AT BEDTIME FOR CHOLESTEROL venlafaxine ER (EFFEXOR XR) 150 mg 24 hr capsule Take 1 capsule by mouth once daily. omeprazole (PRILOSEC) 20 mg capsule Take 1 capsule by mouth once daily. insulin lispro (HUMALOG KWIKPEN INSULIN) 100 unit/mL 17 units at each meal In addition to sliding scale blood sugar diagnostic (BLOOD GLUCOSE TEST) test strip Test blood sugar(s) 2 times daily. Dx: Type 2 DM - Controlled E11.9 Insulin: Yes insulin glargine (LANTUS SOLOSTAR, BASAGLAR KWIKPEN) 100 unit/mL (3 mL) Inject 50 Units subcutaneously daily at bedtime. insulin needles, DISPOSABLE, (EASY TOUCH) 31 gauge x 5/16 Use one pen needle four times daily dulaglutide (TRULICITY) 3 mg/0.5 mL pen injector Inject 3 mg subcutaneously one time a week. Lancets lancets Test blood sugar(s) 2 times daily. Dx: Type 2 DM - Controlled E11.9 Insulin: Yes Blood Sugar Diagnostic, Drum (ACCU-CHEK COMPACT TEST) strp Test twice daily or as directed. DX: 250.02 Insulin: Yes aspirin, enteric coated (ASPIRIN, ENTERIC COATED) 81 mg EC tablet Take 1 tablet by mouth once daily. clobetasol 0.05 % ointment Apply to affected spot(s) or patches of eczema and psoriasis of hands (palms and dorsal areas) selectively qday to bid until clear as directed and tolerated; taper off as able to bland emollient moisturizing cream (eg Cetaphil Cream) as able. AVOID face, eyes/eyelids, anddeep fold areas. lancets(ACCU-CHEK SOFTCLIX LANCETS) Test Blood sugar once daily. 250.02 Social History Tobacco Use Smoking status: Former Packs/day: 1.50 Years: 50.00 Pack years: 75.00 Types: Cigarettes Quit date: 2019 Years since quittin.9 Smokeless tobacco: Never Tobacco comments: Quit 2019 Substance Use Topics Alcohol use: Yes Comment: occasionally beer or liquor Drug use: Yes Comment: Marijuana couple times a week. No occupational exposures. Pets: cats FAMILY HISTORY Problem Relation Age of Onset Cancer Mother Breast Cancer, thyroid Alzheimer's Disease Father Allergies Father other (Pre diabetes) Brother Allergies Brother PAST SURGICAL HISTORY Procedure Laterality Date COLONOSCOPY FLX DX W/COLLJ SPEC WHEN PFRMD 12/08/2010 Colonoscopy, due 2013 COLONOSCOPY FLX DX W/COLLJ SPEC WHEN PFRMD 10/06/2021 CT BRAIN 07/14/2010 neg, white matter changes associated with small vessel disease CT CHEST W IVCON 07/01/2015 resolution pleural effusion; small pleural based nodule, decrease right hilar lymphadenopathy, mildemphysema CTA CHEST 02/17/2015 No PE; right hium atelectasis vs small nodule, right hilar lymphadenopathy; right pleural effusion EXTER CAROTIDS UNI 2010 NEGATIVE EYE SURGERY HX NM CARDIAC PERF STRESS/EXERCISE 07/20/2011 WNL PAST SURGICAL HISTORY OF 1963 Testicular as child PAST SURGICAL HISTORY OF 07/13/2012 Right rotator cuff RMVL LENS MATERIAL PHACOFRAGMENTATION ASPIR 01/2011, 02/2011 Cataract Extraction bilateral SKIN BIOPSY HX SPHINCTEROTOMY ANAL DIVISION SPHINCTER SPX 2003 PMH, Social history, family history and surgical history reviewed and updated in EMR REVIEW OF SYSTEMS: CONSTITUTIONAL: No fevers, chills, nightsweats, unintended weight loss. Fatigue HEENT: Denies nasal congestion/sinus symptoms, allergy problems. EYES: No diplopia or blurry vision, itchy eyes CARDIOVASCULAR: No chest pain, palpitations, orthopnea, PND, edema. PULM: See HPI GI: No dysphagia/odynophagia, problematic reflux, constipation, diarrhea : No urinary complaints, including dysuria, gross hematuria or pyuria. No BPH NEURO: No new balance problems, peripheral weakness/paresthesias or numbness of concern. No residual effects from CVA MUSC-SKEL: No joint pain, swelling, or erythema. PSY: No concerns regarding depression, anxiety INTEGUMENTARY: No new skin changes, rashes or eczema PHYSICAL EXAMINATION: BP 144/78 Pulse 97 Resp 17 Wt 242 lb (109.8kg) SpO2 96% room air General Appearance: Elderly obese male, NAD Skin: Skin color, texture, turgor normal, no suspicious rashes or lesions. Head: Normocephalic, no masses, lesions, tenderness or abnormalities. Eyes: Sclera, conjunctiva normal Oropharynx: Adequate dentition, Mallampati 4, no oral lesions Neck: No JVD, no masses, no thyromegaly Lungs: Not labored, normal to percussion, prolonged expiratory phase, no wheezes or crackles Heart: RRR, no murmur Extremities: Mild pitting edema, no clubbing Musculoskeletal: No joint deformities or effusions Neurologic: Alert and oriented, no focal findings Lymph Nodes: No cervical lymphadenopathy and No supraclavicular lymphadenopathy. Assessment/Plan: 1. COPD, GOLD stage 3 -Continue abstinence from tobacco -Started Trelegy Ellipta with as needed albuterol -Instructed pre-treat with albuterol prior to exercise -Weight loss would be helpful 2. Former cigarette smoker -Former [id number] smoker having quit in 2019 with sequelae of COPD/emphysema -Continue abstinence -Qualifies for low-dose chest CT for cancer screening but would not be due until August 2023 3. Obesity -Class II obesity, BMI 33 -Weight loss advised Carly Banks MD Respiratory [place] documented in this encounterC[facility]11-02-2022 Miscellaneous Notes* Telephone Encounter - Alicia Reyes LPN - 09/22/2022 11:57 AM EDT Faxed back to [place] as requested. * Telephone Encounter - Lia Markham MD - 09/22/2022 8:18 AM EDT done * Telephone Encounter - Reg Broussard LPN - 09/21/2022 4:30 PM EDT Patient has been identified by name and date of : Yes Type of form: Physical Order from DME Form received via: Fax When form is completed, fax form to fax number provided. Form has been forwarded to: Provider's mailbox. Provider name: Dr. Shahrzad Broussard LPN documented in this encounterCincinnati [facility]11-01-2022 Miscellaneous Notes* Telephone Encounter - Melody Schulz RN - 09/21/2022 10:11 AM EDT Yoly from [employer] [facility] calling and states she has received printed CPAP script for patient. Yoly requesting recent OV notes and sleep study results also. Faxed as requested to [phone]. Melody Schulz RN documented in this [facility]10-31-2022 Miscellaneous Notes* Telephone Encounter - Zion French RN - 09/20/2022 10:05 AM EDT Left detailed vm on identified vm with provider's message below. * Telephone Encounter - Zion Calhoun PA-C - 09/19/2022 5:15 PM EDT I placed consult if he wants to establish with [facility] Dr. Banks Thanks, Rusty Calhoun PA-C documented in this encounterCincinnati [facility] Center10-21-2022 Miscellaneous Notes* Telephone Encounter - Ana María Mcgee RN - 09/10/2022 11:42 AM EDT (Kary) calls and results reviewed. to speak with and call back in to schedule anappointment with pulmonology. Ana María Mcgee RN * Telephone Encounter - Karen Varghese Ma - 09/10/2022 10:53 AM EDT Called and left message on patients voicemail to return call to the office and ask to speak with a triage nurse. Karen Varghese Ma * Telephone Encounter - Lia Markham MD - 09/09/2022 4:46 PM EDT Let him also know his stress test was ok. * Telephone Encounter - Alicia Reyes LPN - 09/08/2022 9:56 AM EDT Left message for patient or to call office and speak with nurse. * Telephone Encounter - Lia Markham MD - 09/07/2022 5:[address] shows stable tiny nodules which are not new. Has significant emphysema or asthma type changes on his pfts Refer to pulmonary to follow documented in [facility] encounterC[facility] Miscellaneous Notes* Telephone Encounter - Aleta Teague Ma - 09/07/2022 3:44 PM EDT Keila Porras sends fax stating that rx for CPAP needs to state that it is a replacement machine. Please file. Once filed, will fax with office note. documented in this encounterC[facility]10-17-[facility]22 History of Present illness Narrative* RT Mahsa(R) - 09/06/2022 1:00 PM EDT Radiology Service Progress Note PATIENT NAME: Olga Woodson DATE OF SERVICE: September 06, 2022 TIME: 3:26 PM PATIENT IDENTITY VERIFICATION COMPLETED USING TWO (2) IDENTIFIERS: Name and Date of confirmedby patient verbally. FALL SCREENING: Has the patient had 2 falls in the last year or 1 fall with injury or currently using an Ambulatory Assistive Device (Walker, Cane, Wheelchair, Crutches, etc.)? No PATIENT GENDER DATA: Male PATIENT RELEVANT IMPLANT DATA REVIEWED: Yes RADIOLOGY DEPARTMENT: CT; Exam(s) Completed: Chest PERIPHERAL IV DATA: Not applicable SIGNED BY: RT Avelina(R) September 06, 2022 3:26 PM documented in this encounterCinc[facility]10-17-2022 History of Present illness Narrative* ERICA Silva - 09/06/2022 10:33 AM EDT PULM FUNCTION SMARTBLOCK: Provider: Lia Markham MD Assisting Tech: ERICA Silva Spirometry w/BD: 1 DLCO: 1 LV - Box: 1 documented in this encounterC[facility]10-14-2022 Miscellaneous Notes* Telephone Encounter - Aleta Teague Ma - 09/03/2022 12:54 PM EDT Patient denies any fever, cough or congestion. Please help pt set up ct scan. * Telephone Encounter - iLa Markham MD - 09/03/2022 12:45 PM EDT Shows some scarring. They question the possibility of pneumonia but is questionable. Make sure one more time. No fever, worsening cough or congestion. If not can consider ct of chest as well to rule out scarring or fibrosis. documented in this encounterC[facility]10-14-2022 History of Present illness Narrative* Lia Markham MD - 09/03/2022 9:06 AM EDT Patient presents with: Shortness of Breath: SOB on exertion X 1 yr HPI: Patient presents today for office visit for concerns with shortness of breath on exertion for over a year. Denies chest pain. Needs new CPAP machine. Cpap machine is 8 years. Machine is saying on it that it needs replaced. CALLI: uses CPAP regularly. Sleeps well: Yes. Feels rested on awakening: Sometimes Daytime fatigue: Yes Snoring: No Benefiting from its use. Has noted increasing shortness of breath with exertion. Has been there about a year. No chest pain No swelling. Improves with rest. No wheezing. Does cough a little. Has a smoker's hack. Quit a year and a half ago. Carotid stenosis. RIGHT SIDE Internal carotid artery: 0-19% stenosis. Vertebral artery: Patent and antegrade flow noted. LEFT SIDE Internal carotid artery: 20-39% stenosis. Vertebral artery: Patent and antegrade flow noted. Technologist: Brynn Harrington RVT, [facility] Ordering physician: LIA MARKHAM Aorta: 3.3 cm x 3.3 at its widest. MEDICATIONS: Current Outpatient Medications Medication Sig CPAP Initiate Auto PAP @ 5-20 cm of water with humidification. Mask (per patient preference) optional chin strap (if indicated) , filters, tubing, humidifier and lifetime supplies. atorvastatin (LIPITOR) 80 mg tablet TAKE 1 TABLET DAILY AT BEDTIME FOR CHOLESTEROL venlafaxine ER (EFFEXOR XR) 150 mg 24 hr capsule Take 1 capsule by mouth once daily. omeprazole (PRILOSEC) 20 mg capsule Take 1 capsule by mouth once daily. insulin lispro (HUMALOG KWIKPEN INSULIN) 100 unit/mL 17 units at each meal In addition to sliding scale blood sugar diagnostic (BLOOD GLUCOSE TEST) test strip Test blood sugar(s) 2 times daily. Dx: Type 2 DM - Controlled E11.9 Insulin: Yes insulin glargine (LANTUS SOLOSTAR, BASAGLAR KWIKPEN) 100 unit/mL (3 mL) Inject 50 Units subcutaneously daily at bedtime. insulin needles, DISPOSABLE, (EASY TOUCH) 31 gauge x 5/16 Use one pen needle four times daily dulaglutide (TRULICITY) 3 mg/0.5 mL pen injector Inject 3 mg subcutaneously one time a week. Lancets lancets Test blood sugar(s) 2 times daily. Dx: Type 2 DM - Controlled E11.9 Insulin: Yes Blood Sugar Diagnostic, Drum (ACCU-CHEK COMPACT TEST) strp Test twice daily or as directed. DX: 250.02 Insulin: Yes aspirin, enteric coated (ASPIRIN, ENTERIC COATED) 81 mg EC tablet Take 1 tablet by mouth once daily. clobetasol 0.05 % ointment Apply to affected spot(s) or patches of eczema and psoriasis of hands (palms and dorsal areas) selectively qday to bid until clear as directed and tolerated; taper off as able to bland emollient moisturizing cream (eg Cetaphil Cream) as able. AVOID face, eyes/eyelids, anddeep fold areas. lancets(ACCU-CHEK SOFTCLIX LANCETS) Test Blood sugar once daily. 250.02 No current facility-administered medications for this visit. ALLERGIES: ALLERGIES Allergen Reactions Metformin Diarrhea Penicillins PAST MEDICAL HISTORY Diagnosis Date ANXIETY STATE NOS 08/19/2005 Controlled with effexor Benign neoplasm of colon 2010 Dysmetabolic syndrome X Hyperlipidemia Lung nodule nodule no longer seen in 2016 Other specified disorder of penis erectile dysfunction PERS HX TOBACCO USE 04/06/2006 Cigarettes 1.5 PPD Psoriasis Skin cancer Stroke (cerebrum) (HCC) Tobacco use disorder Type II or unspecified type diabetes mellitus without mention of complication, uncontrolled 08/07/2010 Diagnosed 07/2010 PAST SURGICAL HISTORY Procedure Laterality Date COLONOSCOPY FLX DX W/COLLJ SPEC WHEN PFRMD 12/08/2010 Colonoscopy, due 2013 COLONOSCOPY FLX DX W/COLLJ SPEC WHEN PFRMD 10/06/2021 CT BRAIN 07/14/2010 neg, white matter changes associated with small vessel disease CT CHEST W IVCON 07/01/2015 resolution pleural effusion; small pleural based nodule, decrease right hilar lymphadenopathy, mildemphysema CTA CHEST 02/17/2015 No PE; right hium atelectasis vs small nodule, right hilar lymphadenopathy; right pleural effusion EXTER CAROTIDS UNI 2010 NEGATIVE EYE SURGERY HX NM CARDIAC PERF STRESS/EXERCISE 07/20/2011 WNL PAST SURGICAL HISTORY OF 1962 Testicular as child PAST SURGICAL HISTORY OF 07/13/2012 Right rotator cuff RMVL LENS MATERIAL PHACOFRAGMENTATION ASPIR 01/2011, 02/2011 Cataract Extraction bilateral SKIN BIOPSY HX SPHINCTEROTOMY ANAL DIVISION SPHINCTER SPX 2003 FAMILY HISTORY Problem Relation Age of Onset Alzheimer's Disease Father Cancer Mother Breast Cancer, thyroid other (Pre diabetes) Brother Social History Tobacco Use Smoking status: Former Packs/day: 0.50 Types: Cigarettes Smokeless tobacco: Never Substance Use Topics Alcohol use: Yes Comment: occasionally beer or liquor Drug use: Yes Comment: Marijuana couple times a week. Reviewed current medications, allergies, past medical history, surgical history, family history andsocial history today. REVIEW OF SYSTEMS GI: Negative for blood in stools or black stools, change in bowel habit All other reviewed and negative other than HPI. VITALS: BP 114/60 Pulse 84 Ht 182.9 cm (6') Wt 110.5 kg (243 lb 9.6 oz) SpO2 96% BMI 33.04 kg/m Last 4 Encounter Wt Readings: Date: Wt: 08/20/2022 111.1 kg (245 lb) 06/24/2022 109.6 kg (241 lb 9.6 oz) 06/21/2022 110.7 kg (244 lb) 06/15/2022 108.9 kg (240 lb) PHYSICAL EXAMINATION: General appearance: Well appearing, alert, in no acute distress, well-hydrated, well nourished. Skin: Skin color, texture, turgor normal, no suspicious rashes or lesions Head: Normocephalic, no masses, lesions, tenderness or abnormalities Neck: Supple, no adenopathy; thyroid symmetric, normal size, no bruits Lungs: Lungs clear to auscultation. No wheezing, rhonchi, rales Heart: RRR without murmur, gallop, or rubs. No ectopy Abdomen: Normal abdominal exam, Abdomen soft, non-tender. Bowel sounds normal. No masses, organomegaly Extremities: No deformities, edema, skin discoloration, clubbing or cyanosis. Good capillary refill. ASSESSMENT/PLAN: 1. SOB (shortness of breath) - ICD9: 786.05, ICD10: R06.02 (primary diagnosis) - do stress test and pft - may consider ct given previous to rule out interstitial changes. Follow up after. - CBC + DIFF - BASIC METABOLIC PNL - NT PRO BNP - XR CHEST 2V FRONTAL/LAT - ECG COMPLETE-no acute changes. Left axis. pac's - XR CHEST 2V FRONTAL/LAT 2. CALLI (obstructive sleep apnea) - ICD9: 327.23, ICD10: G47.33 - CPAP 3. Cough, unspecified type - ICD9: 786.2, ICD10: R05.9 - XR CHEST 2V FRONTAL/LAT 4. Abdominal aortic aneurysm (AAA) without rupture, unspecified part - ICD9: 441.4, ICD10: I71.40 - recheck one year. Lia Markham MD RTO in six weeks. documented in this encounterC[facility]10-11-2022 Miscellaneous Notes* Telephone Encounter - Melody Schulz RN - 08/31/2022 3:54 PM EDT Contacted patient's and provider's response given. states she will discuss with patient and call back to make appt. Melody Schulz RN * Telephone Encounter - Lia Markham MD - 08/31/2022 2:43 PM EDT Needs seen by one of us. May need ekg etc. Would not wait until Dec. * Telephone Encounter - Melody Schulz RN - 08/31/2022 1:21 PM EDT Triage protocol recommends: see provider within 3 days for evaluation. states patient's SOB has not worsened and she does not feel he needs to come in for OV right away, but would like provider's advise. Next scheduled appt is 10/22. Please advise at [phone]. Reason for Disposition [1] MODERATE longstanding difficulty breathing (e.g., speaks in phrases, SOB even at rest, pulse 100-120) AND [2] SAME as normal Answer Assessment - Initial Assessment Questions Spoke with patient's Kary instead of patient. She states patient will not tell doctor how he has been feeling, but she will. States patient sits at home every day and does nothing, but they do go to [employer] during the week and patient does a small strengthening work out with some weights and stepping up and down. Kary reports she notes patient becomes very short of breath after walking small distances or during this exercise and she is asking if this is normal for patient's history? She states patient denies any other symptoms. No SOB at rest. Wears CPAP at night. She denies patient being any more SOB than he was about 8 months ago when they started [employer]-reports he is the same with his SOB. Reports SOB has not worsened. 1. RESPIRATORY STATUS: as above 2. ONSET: after stroke 3. PATTERN : varies 4. SEVERITY: moderate to severe 5. RECURRENT SYMPTOM: yes 6. CARDIAC HISTORY: yes 7. LUNG HISTORY: yes 8. CAUSE: Asking if this is to be expected after stroke? 9. OTHER SYMPTOMS: Denies dizziness, runny nose, cough, chest pain, or fever 10. O2 SATURATION MONITOR: Does not have 11. : n/a 12. TRAVEL: no Protocols used: Breathing [id number] documented in this encounterC[facility]10-06-2022 History of Present illness Narrative* Penny Pastor RDMS - 08/26/2022 11:30 AM EDT Radiology Service Progress Note PATIENT NAME: Olga Woodson DATE OF SERVICE: August 26, 2022 TIME: 11:52 AM PATIENT IDENTITY VERIFICATION COMPLETED USING TWO (2) IDENTIFIERS: Name and Date of confirmedby patient verbally. FALL SCREENING: Has the patient had 2 falls in the last year or 1 fall with injury or currently using an Ambulatory Assistive Device (Walker, Cane, Wheelchair, Crutches, etc.)? No PATIENT GENDER DATA: Male PATIENT RELEVANT IMPLANT DATA REVIEWED: Not Applicable RADIOLOGY DEPARTMENT: Ultrasound PERIPHERAL IV DATA: Not applicable SIGNED BY: Penny Pastor RDMS August 26, 2022 11:52 AM documented in this encounterCincinnati [facility]10-05-2022 Miscellaneous Notes* Telephone Encounter - Danielle Sprague LPN - 08/25/2022 3:37 PM EDT faxed * Telephone Encounter - Lia Markham MD - 08/25/2022 2:31 PM EDT Printed. * Telephone Encounter - Lia Markham MD - 08/25/2022 12:[address] Crews had ordered it. Rx written. Looks like its an autopap I think. * Telephone Encounter - Danielle Sprague LPN - 08/25/2022 8:37 AM EDT On your desk, it is from 2014. * Telephone Encounter - Lia Markham MD - 08/25/2022 7:58 AM EDT Can we see if we can get his sleep study from [facility] in 2013. documented in this encounterCincinnati [facility]09-30-2022 Miscellaneous Notes* Addendum Note - Lia Markham MD - 08/20/2022 11:58 AM EDTAddended by: LIA MARKHAM on: 08/20/2022 11:58 AM Modules accepted: Orders, SmartSet documented in this encounterCincinnati [facility]09-30-2022 History of Present illness Narrative* Lia Markham MD - 08/20/2022 11:24 AM EDT Patient presents with: Diabetes HPI: Patient presents today for office visit for DM: Reports overall feeling well. Medication side effects: No. Home sugar check frequency/results:yes daily Hypoglycemic spells: No. Watching diet: Yes. Unexpected weight loss: No. Polyuria, polydipsia: No. Vision Changes: No. Foot lesions or numbness or pain: No. Sugars are much better. HYPERLIPIDEMIA: Patient is taking medications: Yes. Patient is watching diet: Yes. Patient denies myalgias: Yes. Patient denies gi upset: Yes CALLI: still using cpap. Does sleep a lot during the day but feels it is related to below. Wonder if needs to increase his effexor. More depressed Feels bored at home. No suicidal ideation. Has frequent apathy Component Latest Ref Rng & Units 08/17/2022 Glucose 74 - 99 mg/dL 134 (H) BUN 9 - 24 mg/dL 17 Creatinine 0.73 - 1.22 mg/dL 1.26 (H) Sodium 136 - 144 mmol/L 139 Potassium 3.7 - 5.1 mmol/L 4.8 Chloride 97 - 105 mmol/L 98 CO2 22 - 30 mmol/L 27 Anion Gap 9 - 18 mmol/L 14 Calcium 8.5 - 10.2 mg/dL 9.7 eGFR >=60 mL/min/1.73m 62 Creatinine, Ur Random (UCRR) 20.0 - 300.0 mg/dL 180.6 Albumin, Urine Random mg/L <12.0 Albumin/Creat Ratio <30 mg/g <7 Hemoglobin A1C 4.3 - 5.6 % 7.0 (H) Estimated Average Glucose mg/dL 154 MEDICATIONS: Current Outpatient Medications Medication Sig omeprazole (PRILOSEC) 20 mg capsule Take 1 capsule by mouth once daily. insulin lispro (HUMALOG KWIKPEN INSULIN) 100 unit/mL 17 units at each meal In addition to sliding scale insulin glargine (LANTUS SOLOSTAR, BASAGLAR KWIKPEN) 100 unit/mL (3 mL) Inject 50 Units subcutaneously daily at bedtime. venlafaxine ER (EFFEXOR XR) 75 mg 24 hr capsule Take 1 capsule by mouth once daily. atorvastatin (LIPITOR) 80 mg tablet TAKE 1 TABLET DAILY AT BEDTIME FOR CHOLESTEROL dulaglutide (TRULICITY) 3 mg/0.5 mL pen injector Inject 3 mg subcutaneously one time a week. aspirin, enteric coated (ASPIR-LOW) 81 mg EC tablet Take 1 tablet by mouth once daily. blood sugar diagnostic (BLOOD GLUCOSE TEST) test strip Test blood sugar(s) 2 times daily. Dx: Type 2 DM - Controlled E11.9 Insulin: Yes ofloxacin (OCUFLOX) 0.3 % ophthalmic solution Place 4 drops to right ear three times daily for 7 days. naproxen (NAPROSYN) 500 mg tablet Take one pill by mouth twice daily with food X 1 week; then you can take twice daily as needed. Take with food. insulin needles, DISPOSABLE, (EASY TOUCH) 31 gauge x 5/16 Use one pen needle four times daily Lancets lancets Test blood sugar(s) 2 times daily. Dx: Type 2 DM - Controlled E11.9 Insulin: Yes Blood Sugar Diagnostic, Drum (ACCU-CHEK COMPACT TEST) strp Test twice daily or as directed. DX: 250.02 Insulin: Yes clobetasol 0.05 % ointment Apply to affected spot(s) or patches of eczema and psoriasis of hands (palms and dorsal areas) selectively qday to bid until clear as directed and tolerated; taper off as able to bland emollient moisturizing cream (eg Cetaphil Cream) as able. AVOID face, eyes/eyelids, anddeep fold areas. lancets(ACCU-CHEK SOFTCLIX LANCETS) Test Blood sugar once daily. 250.02 No current facility-administered medications for this visit. ALLERGIES: ALLERGIES Allergen Reactions Metformin Diarrhea Penicillins PAST MEDICAL HISTORY Diagnosis Date ANXIETY STATE NOS 08/19/2005 Controlled with effexor Benign neoplasm of colon 2010 Dysmetabolic syndrome X Hyperlipidemia Lung nodule nodule no longer seen in 2016 Other specified disorder of penis erectile dysfunction PERS HX TOBACCO USE 04/06/2006 Cigarettes 1.5 PPD Psoriasis Skin cancer Stroke (cerebrum) (HCC) Tobacco use disorder Type II or unspecified type diabetes mellitus without mention of complication, uncontrolled 08/07/2010 Diagnosed 07/2010 PAST SURGICAL HISTORY Procedure Laterality Date COLONOSCOPY FLX DX W/COLLJ SPEC WHEN PFRMD 12/08/2010 Colonoscopy, due 2013 COLONOSCOPY FLX DX W/COLLJ SPEC WHEN PFRMD 10/06/2021 CT BRAIN 07/14/2010 neg, white matter changes associated with small vessel disease CT CHEST W IVCON 07/01/2015 resolution pleural effusion; small pleural based nodule, decrease right hilar lymphadenopathy, mildemphysema CTA CHEST 02/17/2015 No PE; right hium atelectasis vs small nodule, right hilar lymphadenopathy; right pleural effusion EXTER CAROTIDS UNI 2010 NEGATIVE EYE SURGERY HX NM CARDIAC PERF STRESS/EXERCISE 07/20/2011 WNL PAST SURGICAL HISTORY OF 1963 Testicular as child PAST SURGICAL HISTORY OF 07/13/2012 Right rotator cuff RMVL LENS MATERIAL PHACOFRAGMENTATION ASPIR 01/2011, 02/2011 Cataract Extraction bilateral SKIN BIOPSY HX SPHINCTEROTOMY ANAL DIVISION SPHINCTER SPX 2003 FAMILY HISTORY Problem Relation Age of Onset Alzheimer's Disease Father Cancer Mother Breast Cancer, thyroid other (Pre diabetes) Brother Social History Tobacco Use Smoking status: Former Packs/day: 0.50 Types: Cigarettes Smokeless tobacco: Never Substance Use Topics Alcohol use: Yes Comment: occasionally beer or liquor Drug use: Yes Comment: Marijuana couple times a week. Reviewed current medications, allergies, past medical history, surgical history, family history andsocial history today. REVIEW OF SYSTEMS All other reviewed and negative other than HPI. HEALTH MAINTENANCE: Reviewed health maintenance issues today and recommended the following in detail. DILATED RETINAL EXAM - recommended. PNEUMOCOCCAL: 64+(2 - PCV) due on 08/21/2021 COVID-19 VACCINE(4 - Booster for Pfizer series) -will be getting. ADVANCE DIRECTIVE DISCUSSION Never done INFLUENZA(1) -will be getting. DIABETIC FOOT EXAM due on 08/12/2022 VITALS: BP 132/68 Pulse 72 Wt 111.1 kg (245 lb) BMI 32.82 kg/m Last 4 Encounter Wt Readings: Date: Wt: 08/20/2022 111.1 kg (245 lb) 06/24/2022 109.6 kg (241 lb 9.6 oz) 06/21/2022 110.7 kg (244 lb) 06/15/2022 108.9 kg (240 lb) PHYSICAL EXAMINATION: General appearance: Well appearing, alert, in no acute distress, well-hydrated, well nourished. Skin: Skin color, texture, turgor normal, no suspicious rashes or lesions Head: Normocephalic, no masses, lesions, tenderness or abnormalities Eyes: Anicteric sclera. Pupils are equally round and reactive to light. Extraocular movements are intact. Lungs: Lungs clear to auscultation. No wheezing, rhonchi, rales Heart: RRR without murmur, gallop, or rubs. No ectopy Abdomen: Normal abdominal exam, Abdomen soft, non-tender. Bowel sounds normal. No masses, organomegaly Feet:Shoes and socks removed, No deformities, ulcers, calluses, normal distal pulses, and sensitiveto 10 gm monofilament ASSESSMENT/PLAN: 1. Controlled type 2 diabetes mellitus without complication, without long-term current use of insulin (HCC) - ICD9: 250.00, ICD10: E11.9 (primary diagnosis) - doing well. Continue meds - CBC + DIFF - ALBUMIN/CREAT RATIO RND UR - HGB A1C - COMP METABOLIC PANEL - LIPID PANEL BASIC 2. Mild depressive disorder - ICD9: 311, ICD10: F32.A - increase dose and follow up . - VENLAFAXINE ER 150 MG CAPSULE,EXTENDED RELEASE 24 HR 3. Cerebrovascular accident (CVA), unspecified mechanism (HCC) - ICD9: 434.91, ICD10: I63.9 - continue to follow. 4. Abdominal aortic aneurysm (AAA) without rupture (HCC) - ICD9: 441.4, ICD10: I71.4 - US ABD AORTA - US DOPPLER AORTA 5. Hyperlipidemia, unspecified hyperlipidemia type - ICD9: 272.4, ICD10: E78 - TSH BLD 6. Bilateral carotid artery stenosis - ICD9: 433.10, 433.30, ICD10: I65.23 - US CAROTID ARTERIES [facility] Lia Markham MD RTO in six to eight weeks. documented in this encounterCincinnati [facility]08-12-2022 Miscellaneous Notes* Telephone Encounter - Alicia Reyes LPN - 07/02/2022 12:43 PM EDT Patient has been identified by name and date of : Yes Requested Prescriptions Pending Prescriptions Disp Refills insulin lispro (HUMALOG KWIKPEN INSULIN) 100 unit/mL 15 Pen 1 Si units at each meal In addition to sliding scale blood sugar diagnostic (BLOOD GLUCOSE TEST) test strip 100 Strip 11 Sig: Test blood sugar(s) 2 times daily. Dx: Type 2 DM - Controlled E11.9 Insulin: Yes RX INSTRUCTIONS: Patient aware RX will be sent to pharmacy. No need to notify patient. Alicia Reyes LPN documented in this encounterCincinnati [facility] Center08-12-2022 Miscellaneous Notes* Telephone Encounter - Melody Oliveira - 07/02/2022 10:53 AM EDT Called patient and patient stated that he went to see someone yesterday for his toe. Patient did not want to be schedule with podiatry * Telephone Encounter - Isabela Hernández APRN.TAMALE MACHINE FEEDER - 06/25/2022 8:49 AM EDT Please help schedule w/ podiatry. Isabela Hernández APRN.CNP * Telephone Encounter - Karen Varghese Ma - 06/25/2022 8:40 AM EDT See pt message. I did ask additional questions if pain is worse, same or any better. All you have is ROSAMARIA slots today other then 1 open, which time is already over. Advise. Karen Varghese Ma documented in this encounterCincinnati [facility] Center08-04-2022 History of Present illness Narrative* Rosemary Agustin APRN.CNP - 06/24/2022 3:32 PM EDT Chief Complaint Patient presents with: Ear Infection HPI Olga Woodson is a 66 year old male who presents here today for Above Complaints.. Was seen in Urgent Care 3 days ago on 06/21/2022: ASSESSMENT/PLAN: 1. Acute otitis media, right - ICD9: 382.9, ICD10: H66.91 - Will begin treatment with as per antibiotic omnicef as written, see orders - Supportive care with plenty of fluids, rest, and analgesia prn. - Follow up in one week if symptoms persist or worsen. - Discussed red flags and need for immediate medical evaluation if any occur. - Discussed supportive care treatment with fluids, rest and analgesia. - Discussed expected course of illness Today: Doesn't think that the antibiotic is helping his right ear. Thinks it has moved into his left ear. Doesn't have any pain at all. Both ears feel like he is under water. Past medical history, appointments, medications, allergies reviewed. Previous Medical History PAST MEDICAL HISTORY Diagnosis Date ANXIETY STATE NOS 08/19/2005 Controlled with effexor Benign neoplasm of colon 2010 Dysmetabolic syndrome X Hyperlipidemia Lung nodule nodule no longer seen in 2016 Other specified disorder of penis erectile dysfunction PERS HX TOBACCO USE 04/06/2006 Cigarettes 1.5 PPD Psoriasis Skin cancer Stroke (cerebrum) (HCC) Tobacco use disorder Type II or unspecified type diabetes mellitus without mention of complication, uncontrolled 08/07/2010 Diagnosed 07/2010 Previous Surgical History PAST SURGICAL HISTORY Procedure Laterality Date COLONOSCOPY FLX DX W/COLLJ SPEC WHEN PFRMD 12/08/2010 Colonoscopy, due 2013 COLONOSCOPY FLX DX W/COLLJ SPEC WHEN PFRMD 10/06/2021 CT BRAIN 07/14/2010 neg, white matter changes associated with small vessel disease CT CHEST W IVCON 07/01/2015 resolution pleural effusion; small pleural based nodule, decrease right hilar lymphadenopathy, mildemphysema CTA CHEST 02/17/2015 No PE; right hium atelectasis vs small nodule, right hilar lymphadenopathy; right pleural effusion EXTER CAROTIDS UNI 2010 NEGATIVE EYE SURGERY HX NM CARDIAC PERF STRESS/EXERCISE 07/20/2011 WNL PAST SURGICAL HISTORY OF 89 Testicular as child PAST SURGICAL HISTORY OF 07/13/2012 Right rotator cuff RMVL LENS MATERIAL PHACOFRAGMENTATION ASPIR 01/2011, 02/2011 Cataract Extraction bilateral SKIN BIOPSY HX SPHINCTEROTOMY ANAL DIVISION SPHINCTER SPX 2003 Family History FAMILY HISTORY Problem Relation Age of Onset Alzheimer's Disease Father Cancer Mother Breast Cancer, thyroid other (Pre diabetes) Brother Patient Allergies ALLERGIES Allergen Reactions Metformin Diarrhea Penicillins Current Medications Current Outpatient Medications on File Prior to Visit Medication Sig cefdinir (OMNICEF) 300 mg capsule Take 1 capsule by mouth twice daily for 7 days. naproxen (NAPROSYN) 500 mg tablet Take one pill by mouth twice daily with food X 1 week; then you can take twice daily as needed. Take with food. insulin glargine (LANTUS SOLOSTAR, BASAGLAR KWIKPEN) 100 unit/mL (3 mL) Inject 50 Units subcutaneously daily at bedtime. omeprazole (PRILOSEC) 20 mg capsule Take 1 capsule by mouth once daily. insulin lispro (HUMALOG KWIKPEN INSULIN) 100 unit/mL 17 units at each meal In addition to sliding scale venlafaxine ER (EFFEXOR XR) 75 mg 24 hr capsule Take 1 capsule by mouth once daily. insulin needles, DISPOSABLE, (EASY TOUCH) 31 gauge x 5/16 Use one pen needle four times daily atorvastatin (LIPITOR) 80 mg tablet TAKE 1 TABLET DAILY AT BEDTIME FOR CHOLESTEROL dulaglutide (TRULICITY) 3 mg/0.5 mL pen injector Inject 3 mg subcutaneously one time a week. blood sugar diagnostic (BLOOD GLUCOSE TEST) test strip Test blood sugar(s) 2 times daily. Dx: Type 2 DM - Controlled E11.9 Insulin: Yes Lancets lancets Test blood sugar(s) 2 times daily. Dx: Type 2 DM - Controlled E11.9 Insulin: Yes Blood Sugar Diagnostic, Drum (ACCU-CHEK COMPACT TEST) strp Test twice daily or as directed. DX: 250.02 Insulin: Yes aspirin, enteric coated (ASPIR-LOW) 81 mg EC tablet Take 1 tablet by mouth once daily. clobetasol 0.05 % ointment Apply to affected spot(s) or patches of eczema and psoriasis of hands (palms and dorsal areas) selectively qday to bid until clear as directed and tolerated; taper off as able to bland emollient moisturizing cream (eg Cetaphil Cream) as able. AVOID face, eyes/eyelids, anddeep fold areas. lancets(ACCU-CHEK SOFTCLIX LANCETS) Test Blood sugar once daily. 250.02 No current facility-administered medications on file prior to visit. Social History Social History Tobacco Use Smoking status: Former Smoker Packs/day: 0.50 Types: Cigarettes Smokeless tobacco: Never Used Substance Use Topics Alcohol use: Yes Comment: occasionally beer or liquor Drug use: Yes Comment: Marijuana couple times a week. Review of Symptoms REVIEW OF SYSTEMS see HPI, otherwise negative EXAM: BP 136/88 (BP Site: Left Arm, BP Position: Sitting, BP Cuff Size: Regular Adult) Pulse 76 Wt 109.6 kg (241 lb 9.6 oz) SpO2 95% BMI 32.37 kg/m General Appearance: Well appearing, alert, in no acute distress, well-hydrated, well nourished.. Ears: Left ear WNL, right ear with small amount thick white drainage to external canal, unable to visualize TM. Health Maintenance List DTAP,TDAP,TD(2 - Td or Tdap) due on 08/07/2020 DILATED RETINAL EXAM due on 08/05/2021 PNEUMOCOCCAL: 64+(2 - PCV) due on 08/21/2021 ADVANCE DIRECTIVE DISCUSSION Never done COVID-19 VACCINE(4 - Booster for Pfizer series) due on 01/10/2022 INFLUENZA(1) due on 07/22/2022 HBA1C due on 08/06/2022 DIABETIC FOOT EXAM due on 08/12/2022 LDL CHOLESTEROL due on 02/03/2023 URINE ALBUMIN:CREATININE RATIO due on 06/15/2023 ANNUAL PCP TEAM CHRONIC DISEASE VISIT due on 06/15/2023 PROSTATE CANCER SCREENING DISCUSSION due on 08/21/2025 COLORECTAL CANCER SCREENING due on 10/06/2026 ABDOMINAL AORTIC ANEURYSM SCREENING Completed HEPATITIS C SCREENING Completed SHINGRIX VACCINE Completed Data reviewed Previous records, office notes ASSESSMENT/PLAN: 1. Acute otitis externa of right ear, unspecified type - ICD9: 380.10, ICD10: H60.501 Continue the Omnicef oral antibiotic, begin the ofloxacin drops. These drops are labeled as eye drops, but can be ordered to go in the ear as well, and are at a better cost this way. - OFLOXACIN 0.3 % EYE DROPS Rosemary Agustin APRN.CNP documented in this encounterC[facility] Miscellaneous Notes* Telephone Encounter - Carly Manriquez Ma - 06/24/2022 12:56 PM EDT Spoke to patient and scheduled for today Carly Manriquez Ma documented in this encounterC[facility]08-01-2022 Instructions* Patient Instructions* Inna Roque APRN.CNP - 06/21/2022 2:34 PM EDT Ear Infection The inside or outside of your ear can become infected. If your outer ear or ear canal is swollen and infected, you have an outer ear infection. Your ear may itch or be red and swollen. Your ear may hurt or have drainage as well. This infection happens if germs enter your ears and cause a problem. This is more likely to happen if you have a wound in your ear. It can also happen if there is something in your ear or if your ear is wet for a long time. You may have signs a few days after swimming. This is why outer ear infections are often called swimmers ear. Long-term outer ear infections may be caused by: Allergic reaction Skin problems, such as eczema or psoriasis Chronic middle ear infections What care is needed at home? Ask your doctor what you need to do when you go home. Make sure you ask questions if you do not understand what the doctor says. This way you will know what you need to do. Take your drugs as ordered by your doctor. Be sure to treat an infection right away. This will help to keep it from spreading to other parts of your ear. Heat may help ease your ear pain. If your doctor tells you to use heat, put a heating pad or hot water bottle on your ear for no more than 20 minutes at a time. Never go to sleep with a heating pad on as this can cause marcos. What follow-up care is needed? Your doctor may ask you to make visits to the office to check on your progress. Be sure to keep these visits. What problems could happen? Very bad infection Hearing problems What can be done to prevent this health problem? Keep your ears dry: Use a bathing cap or ear plugs when swimming. Use a towel to dry your ears when they are wet. Do not swim in dirty or polluted water. Avoid getting soap or other items in your ears. Do not scratch your ears. Do not put swabs or other objects in your ears. When do I need to call the doctor? Signs of infection. These include a fever of 100.4 F (38 C) or higher, chills, very bad sore throat, ear or sinus pain. Signs get worse You feel pain and there is redness of the bone behind your ear Drugs you are taking are not working for you Health problem is not better or you are feeling worse Helpful tips Talk to your doctor to see if there are drops you can use to help prevent the growth of germs. Outer ear infections are not contagious, but need treatment. documented in this encounterC[facility]08-01-2022 History of Present illness Narrative* Inna Roque APRN.JERI - 06/21/2022 2:33 PM EDT This note was created using [employer] Mediar[employer]. Subjective Olga Woodson is a 66 year old male. 66 male with PMH of CVA, AAA, Hyperlipidemia, DM presents with complaints of right ear fullness. 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 The history is provided by the patient. No beet end supervisor was used. Ear Pain This is a new problem. The current episode started today. The problem occurs constantly. The problem has been unchanged. Pertinent negatives include no abdominal pain, anorexia, arthralgias, change in bowel habit, chest pain, chills, congestion, coughing, diaphoresis, fatigue, fever, headaches, joint swelling, myalgias, nausea, neck pain, numbness, rash, sore throat, swollen glands, urinary symptoms, vertigo, visual change, vomiting or weakness. Nothing aggravates the symptoms. He has tried nothing for the symptoms. The treatment provided no relief. Ear Problem There is pain in the right ear. This is a new problem. The current episode started today. The problem occurs constantly. The problem has been unchanged. There has been no fever. The pain is at a severity of 0/10. The patient is experiencing no pain. Associated symptoms include hearing loss. Pertinent negatives include no abdominal pain, coughing, diarrhea, ear discharge, headaches, neck pain, rash, rhinorrhea, sore throat or vomiting. Associated symptoms comments: Chronic hearing loss b/l. He has tried nothing for the symptoms. The treatment provided no relief. His past medical history is sign ificant for hearing loss. There is no history of a chronic ear infection or a tympanostomy tube. PAST MEDICAL HISTORY Diagnosis Date ANXIETY STATE NOS 08/19/2005 Controlled with effexor Benign neoplasm of colon 2010 Dysmetabolic syndrome X Hyperlipidemia Lung nodule nodule no longer seen in 2015 Other specified disorder of penis erectile dysfunction PERS HX TOBACCO USE 04/06/2006 Cigarettes 1.5 PPD Psoriasis Skin cancer Stroke (cerebrum) (HCC) Tobacco use disorder Type II or unspecified type diabetes mellitus without mention of complication, uncontrolled 08/07/2010 Diagnosed 07/2010 PAST SURGICAL HISTORY Procedure Laterality Date COLONOSCOPY FLX DX W/COLLJ SPEC WHEN PFRMD 12/08/2010 Colonoscopy, due 2013 COLONOSCOPY FLX DX W/COLLJ SPEC WHEN PFRMD 10/06/2021 CT BRAIN 07/14/2010 neg, white matter changes associated with small vessel disease CT CHEST W IVCON 07/01/2015 resolution pleural effusion; small pleural based nodule, decrease right hilar lymphadenopathy, mildemphysema CTA CHEST 02/17/2015 No PE; right hium atelectasis vs small nodule, right hilar lymphadenopathy; right pleural effusion EXTER CAROTIDS UNI 2010 NEGATIVE EYE SURGERY HX NM CARDIAC PERF STRESS/EXERCISE 07/20/2011 WNL PAST SURGICAL HISTORY OF 1962 Testicular as child PAST SURGICAL HISTORY OF 07/13/2012 Right rotator cuff RMVL LENS MATERIAL PHACOFRAGMENTATION ASPIR 01/2011, 02/2011 Cataract Extraction bilateral SKIN BIOPSY HX SPHINCTEROTOMY ANAL DIVISION SPHINCTER SPX 2003 ALLERGIES Metformin and Penicillins MEDICATIONS cefdinir (OMNICEF) 300 mg capsule Take 1 capsule by mouth twice daily for 7 days. naproxen (NAPROSYN) 500 mg tablet Take one pill by mouth twice daily with food X 1 week; then you can take twice daily as needed. Take with food. insulin glargine (LANTUS SOLOSTAR, BASAGLAR KWIKPEN) 100 unit/mL (3 mL) Inject 50 Units subcutaneously daily at bedtime. omeprazole (PRILOSEC) 20 mg capsule Take 1 capsule by mouth once daily. insulin lispro (HUMALOG KWIKPEN INSULIN) 100 unit/mL 17 units at each meal In addition to sliding scale venlafaxine ER (EFFEXOR XR) 75 mg 24 hr capsule Take 1 capsule by mouth once daily. insulin needles, DISPOSABLE, (EASY TOUCH) 31 gauge x 5/16 Use one pen needle four times daily atorvastatin (LIPITOR) 80 mg tablet TAKE 1 TABLET DAILY AT BEDTIME FOR CHOLESTEROL dulaglutide (TRULICITY) 3 mg/0.5 mL pen injector Inject 3 mg subcutaneously one time a week. blood sugar diagnostic (BLOOD GLUCOSE TEST) test strip Test blood sugar(s) 2 times daily. Dx: Type 2 DM - Controlled E11.9 Insulin: Yes Lancets lancets Test blood sugar(s) 2 times daily. Dx: Type 2 DM - Controlled E11.9 Insulin: Yes Blood Sugar Diagnostic, Drum (ACCU-CHEK COMPACT TEST) strp Test twice daily or as directed. DX: 250.02 Insulin: Yes aspirin, enteric coated (ASPIR-LOW) 81 mg EC tablet Take 1 tablet by mouth once daily. clobetasol 0.05 % ointment Apply to affected spot(s) or patches of eczema and psoriasis of hands (palms and dorsal areas) selectively qday to bid until clear as directed and tolerated; taper off as able to bland emollient moisturizing cream (eg Cetaphil Cream) as able. AVOID face, eyes/eyelids, anddeep fold areas. lancets(ACCU-CHEK SOFTCLIX LANCETS) Test Blood sugar once daily. 250.02 FAMILY HISTORY Problem Relation Age of Onset Alzheimer's Disease Father Cancer Mother Breast Cancer, thyroid other (Pre diabetes) Brother Social History Tobacco Use Smoking status: Former Smoker Packs/day: 0.50 Types: Cigarettes Smokeless tobacco: Never Used Substance Use Topics Alcohol use: Yes Comment: occasionally beer or liquor Drug use: Yes Comment: Marijuana couple times a week. Review of Systems Constitutional: Negative for activity change, appetite change, chills, diaphoresis, fatigue and fever. HENT: Positive for hearing loss. Negative for congestion, dental problem, ear discharge, ear pain, facial swelling, rhinorrhea, sinus pressure, sinus pain, sore throat, tinnitus and trouble swallowing. Chronic hearing loss B/L Eyes: Negative for pain, discharge, redness and itching. Respiratory: Negative for apnea, cough, chest tightness and shortness of breath. Cardiovascular: Negative for chest pain. Gastrointestinal: Negative for abdominal pain, anorexia, change in bowel habit, diarrhea, nausea and vomiting. Endocrine: Negative for cold intolerance and heat intolerance. Genitourinary: Negative for difficulty urinating. Musculoskeletal: Negative for arthralgias, joint swelling, myalgias and neck pain. Skin: Negative for color change, pallor, rash and wound. Allergic/Immunologic: Positive for immunocompromised state. Negative for environmental allergies and food allergies. Neurological: Negative for dizziness, vertigo, weakness, light-headedness, numbness and headaches. Psychiatric/Behavioral: Negative for agitation and behavioral problems. Objective BP 130/78 Pulse 86 Temp 36.9 C (98.4 F) Resp 20 Wt 110.7 kg (244 lb) SpO2 95% BMI 32.69kg/m Physical Exam Vitals and nursing note reviewed. Constitutional: General: He is not in acute distress. Appearance: Normal appearance. He is normal weight. He is not ill-appearing, toxic-appearing or diaphoretic. HENT: Head: Normocephalic. Left Ear: Tympanic membrane, ear canal and external ear normal. There is impacted cerumen. Ears: Comments: TM white in color, neutral position, no movement, fluid noted in canal Nose: Nose normal. No congestion or rhinorrhea. Mouth/Throat: Mouth: Mucous membranes are moist. Pharynx: Oropharynx is clear. No oropharyngeal exudate or posterior oropharyngeal erythema. Eyes: General: No scleral icterus. Right eye: No discharge. Left eye: No discharge. Extraocular Movements: Extraocular movements intact. Conjunctiva/sclera: Conjunctivae normal. Pupils: Pupils are equal, round, and reactive to light. Cardiovascular: Rate and Rhythm: Normal rate and regular rhythm. Pulses: Normal pulses. Heart sounds: Normal heart sounds. No murmur heard. No friction rub. No gallop. Pulmonary: Effort: Pulmonary effort is normal. No respiratory distress. Breath sounds: Normal breath sounds. No stridor. No wheezing, rhonchi or rales. Chest: Chest wall: No tenderness. Abdominal: General: Abdomen is flat. Bowel sounds are normal. There is no distension. Palpations: Abdomen is soft. Tenderness: There is no abdominal tenderness. There is no guarding. Musculoskeletal: General: No swelling, tenderness, deformity or signs of injury. Normal range of motion. Cervical back: Normal range of motion. No rigidity or tenderness. Skin: General: Skin is warm and dry. Capillary Refill: Capillary refill takes less than 2 seconds. Coloration: Skin is not jaundiced or pale. Findings: No bruising, erythema, lesion or rash. Neurological: General: No focal deficit present. Mental Status: He is alert and oriented to person, place, and time. Motor: No weakness. Psychiatric: Mood and Affect: Mood normal. Behavior: Behavior normal. Thought Content: Thought content normal. Judgment: Judgment normal. Assessment and Plan ASSESSMENT/PLAN: 1. Acute otitis media, right - ICD9: 382.9, ICD10: H66.91 - Will begin treatment with as per antibiotic omnicef as written, see orders - Supportive care with plenty of fluids, rest, and analgesia prn. - Follow up in one week if symptoms persist or worsen. - Discussed red flags and need for immediate medical evaluation if any occur. - Discussed supportive care treatment with fluids, rest and analgesia. - Discussed expected course of illness Allie Dukesus Supervising provider was present and guided the care of the patient for the entire session on this date. All documentation was reviewed and agreed upon. Inna Roque APRN.CNP documented in this encounterC[facility]07-27-2022 Miscellaneous Notes* Telephone Encounter - Karen Varghese Ma - 06/16/2022 10:59 AM EDT Called Client Services, spoke with Eduard. On hold for 13 minutes. Unable to add A1c. Pt sent [email or web address] message notifying him of result below from Provider. Made pt aware that incorrect lab was ordered and asked him to come in and complete an A1c. Apologized for inconvenience. Karen Varghese Ma * Telephone Encounter - Lia Markham MD - 06/16/2022 8:04 AM EDT Sugar was 215. Rest of labs ok. Can we add a1c to see where it is. documented in this encounterC[facility]07-26-2022 Instructions* Patient Instructions* Isabela Hernández APRN.CNP - 06/15/2022 9:00 AM EDT 1. Start the naproxen twice daily with food X 1 week. Then you can use twice daily as needed. 2. Get the labwork. 3. Get the xray done. 4. Let us know if no better or any worsening. documented in this encounterC[facility]07-26-2022 History of Present illness Narrative* Isabela Hernández APRN.CNP - 06/15/2022 8:48 AM EDT This is a 66 year old male who presents today with: Patient presents with: Acute Visit: pain R great toe x couple weeks; no redness/swelling HISTORY OF PRESENT ILLNESS: Olga Woodson is a 66 year old male. Patient presents with: Acute Visit: pain R great toe x couple weeks; no redness/swelling Pt presents today w/ left great toe pain. Had gout 5-6 years ago -- almost feels like that, but not as severe in nature. Refers uncomfortable when he walks. Refers that it has been going on for a couple of weeks. No redness/swelling. Walking makes it worse. Nothing makes it feel better. No injuries to the toe. Did take some ibuprofen yesterday. Refers that it didn't help much. PAST MEDICAL HISTORY: PAST MEDICAL HISTORY Diagnosis Date ANXIETY STATE NOS 08/19/2005 Controlled with effexor Benign neoplasm of colon 2010 Dysmetabolic syndrome X Hyperlipidemia Lung nodule nodule no longer seen in 2016 Other specified disorder of penis erectile dysfunction PERS HX TOBACCO USE 04/06/2006 Cigarettes 1.5 PPD Psoriasis Skin cancer Stroke (cerebrum) (HCC) Tobacco use disorder Type II or unspecified type diabetes mellitus without mention of complication, uncontrolled 08/07/2010 Diagnosed 07/2010 PAST SURGICAL HISTORY Procedure Laterality Date COLONOSCOPY FLX DX W/COLLJ SPEC WHEN PFRMD 12/08/2010 Colonoscopy, due 2013 COLONOSCOPY FLX DX W/COLLJ SPEC WHEN PFRMD 10/06/2021 CT BRAIN 07/14/2010 neg, white matter changes associated with small vessel disease CT CHEST W IVCON 07/01/2015 resolution pleural effusion; small pleural based nodule, decrease right hilar lymphadenopathy, mildemphysema CTA CHEST 02/17/2015 No PE; right hium atelectasis vs small nodule, right hilar lymphadenopathy; right pleural effusion EXTER CAROTIDS UNI 2010 NEGATIVE EYE SURGERY HX NM CARDIAC PERF STRESS/EXERCISE 07/20/2011 WNL PAST SURGICAL HISTORY OF 1962 Testicular as child PAST SURGICAL HISTORY OF 07/13/2012 Right rotator cuff RMVL LENS MATERIAL PHACOFRAGMENTATION ASPIR 01/2011, 02/2011 Cataract Extraction bilateral SKIN BIOPSY HX SPHINCTEROTOMY ANAL DIVISION SPHINCTER SPX 2003 ALLERGIES Metformin and Penicillins MEDICATIONS Current Outpatient Medications Medication Sig insulin glargine (LANTUS SOLOSTAR, BASAGLAR KWIKPEN) 100 unit/mL (3 mL) Inject 50 Units subcutaneously daily at bedtime. omeprazole (PRILOSEC) 20 mg capsule Take 1 capsule by mouth once daily. insulin lispro (HUMALOG KWIKPEN INSULIN) 100 unit/mL 17 units at each meal In addition to sliding scale venlafaxine ER (EFFEXOR XR) 75 mg 24 hr capsule Take 1 capsule by mouth once daily. insulin needles, DISPOSABLE, (EASY TOUCH) 31 gauge x 5/16 Use one pen needle four times daily atorvastatin (LIPITOR) 80 mg tablet TAKE 1 TABLET DAILY AT BEDTIME FOR CHOLESTEROL dulaglutide (TRULICITY) 3 mg/0.5 mL pen injector Inject 3 mg subcutaneously one time a week. blood sugar diagnostic (BLOOD GLUCOSE TEST) test strip Test blood sugar(s) 2 times daily. Dx: Type 2 DM - Controlled E11.9 Insulin: Yes Lancets lancets Test blood sugar(s) 2 times daily. Dx: Type 2 DM - Controlled E11.9 Insulin: Yes Blood Sugar Diagnostic, Drum (ACCU-CHEK COMPACT TEST) strp Test twice daily or as directed. DX: 250.02 Insulin: Yes aspirin, enteric coated (ASPIR-LOW) 81 mg EC tablet Take 1 tablet by mouth once daily. clobetasol 0.05 % ointment Apply to affected spot(s) or patches of eczema and psoriasis of hands (palms and dorsal areas) selectively qday to bid until clear as directed and tolerated; taper off as able to bland emollient moisturizing cream (eg Cetaphil Cream) as able. AVOID face, eyes/eyelids, anddeep fold areas. lancets(ACCU-CHEK SOFTCLIX LANCETS) Test Blood sugar once daily. 250.02 No current facility-administered medications for this visit. FAMILY HISTORY Problem Relation Age of Onset Alzheimer's Disease Father Cancer Mother Breast Cancer, thyroid other (Pre diabetes) Brother Social History Tobacco Use Smoking status: Former Smoker Packs/day: 0.50 Types: Cigarettes Smokeless tobacco: Never Used Substance Use Topics Alcohol use: Yes Comment: occasionally beer or liquor Drug use: Yes Comment: Marijuana couple times a week. EXAM: BP 132/80 Pulse 76 Resp 18 Wt 108.9 kg (240 lb) SpO2 95% BMI 32.15 kg/m PHYSICAL EXAM: General Appearance: Well appearing, alert, in no acute distress, well-hydrated, well nourished.. Skin: Skin color, texture, turgor normal, no suspicious rashes or lesions. Head: Normocephalic, no masses, lesions, tenderness or abnormalities. Lungs: Lungs clear to auscultation. No wheezing, rhonchi, rales.. Heart: RRR without murmur, gallop, or rubs. No ectopy. Extremities: No deformities, edema, skin discoloration, clubbing or cyanosis. Good capillary refill. Discomfort to palpate the dorsal aspect of the left great toe. No redness/swelling. Neurologic: Gait normal. ASSESSMENT/PLAN: 1. Pain of toe, unspecified laterality - ICD9: 729.5, ICD10: M79.676 Suspect arthritic in nature. Encouraged to get previously ordered labwork. Will start naproxen. Will try to avoid steroids d/t diabetes. Will get xray. If no better/worsening, consider referral to podiatry. - NAPROXEN 500 MG TABLET - XR TOE AP/LAT/OBL LEFT Discussed treatment plan and patient voices understanding. Patient's questions answered appropriately. Medications and potential side effects were discussed and patient voices understanding. Return to the office as scheduled or as needed for worsening/no improvement. Isabela Hernández APRN.TAMALE MACHINE FEEDER documented in this encounterC[facility]06-15-2022 Miscellaneous Notes* Telephone Encounter - Alicia Reyes LPN - 05/05/2022 10:55 AM EDT Faxed back as requested. * Telephone Encounter - Lia Markham MD - 05/05/2022 10:13 AM EDT done * Telephone Encounter - Karen Varghese Ma - 05/05/2022 8:59 AM EDT Office received fax from [employer] for certificate of medical necessity for pt DME supplies. Routedto PCP to review and complete. Once complete fax back to [phone]. Karen Varghese Ma documented in this encounterCinc[facility]03-28-2022 Instructions* Patient Instructions* Lia Markham MD - 02/15/2022 11:14 AM EDT Increase humalog to 17 units with each meal and call sugars in two weeks. Watch diet and increase exercise to help as well. documented in this encounterC[facility]03-28-2022 History of Present illness Narrative* Lia Markham MD - 02/15/2022 11:00 AM EDT Patient presents with: Diabetes HPI: Patient presents today for office visit for follow up. DM: Reports overall feeling well. Medication side effects: No. Home sugar check frequency/results:sugars could be better. Hypoglycemic spells: No. Watching diet: Feels he could do more.. Unexpected weight loss: No. Polyuria, polydipsia: No. HYPERLIPIDEMIA: Patient is taking medications: Yes. Patient denies myalgias: Yes. Having a lot of stress. 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 Sleeping well. CALLI: uses cpap regularly. Sleeps well: Yes. Feels rested on awakening: Yes Snoring: No: See previous ov Sugars are improving. Numbers are improving. Has had some issues with the holidays. Lowest sugar was 120's . No chest pain or shortness of breath. Emotionally doing well. Component Latest Ref Rng & Units 02/03/2022 WBC 3.70 - 11.00 k/uL 9.13 RBC 4.20 - 6.00 m/uL 5.55 Hemoglobin 13.0 - 17.0 g/dL 16.2 Hematocrit 39.0 - 51.0 % 49.8 MCV 80.0 - 100.0 fL 89.7 MCH 26.0 - 34.0 pg 29.2 MCHC 30.5 - 36.0 g/dL 32.5 RDW-CV 11.5 - 15.0 % 12.5 Platelet Count 150 - 400 k/uL 253 MPV 9.0 - 12.7 fL 11.4 Absolute nRBC <0.01 k/uL <0.01 Glucose 74 - 99 mg/dL 135 (H) BUN 9 - 24 mg/dL 13 Creatinine 0.73 - 1.22 mg/dL 1.03 Sodium 136 - 144 mmol/L 134 (L) Potassium 3.7 - 5.1 mmol/L 4.4 Chloride 97 - 105 mmol/L 99 CO2 22 - 30 mmol/L 25 Anion Gap 9 - 18 mmol/L 10 Calcium 8.5 - 10.2 mg/dL 9.2 eGFR >=60 mL/min/1.73m 80 Cholesterol, Total <200 mg/dL 105 Triglyceride <150 mg/dL 100 HDL Cholesterol >39 mg/dL 37 (L) Non HDL Cholesterol <130 mg/dL 68 Fasting Time hrs 15 VLDL Cholesterol <30 mg/dL 20 TC:HDL Ratio <5.10 2.84 LDL Cholesterol <100 mg/dL 48 LDL:HDL Ratio <2.54 1.30 Hemoglobin A1C 4.3 - 5.6 % 7.9 (H) Estimated Average Glucose mg/dL 180 MEDICATIONS: Current Outpatient Medications Medication Sig omeprazole (PRILOSEC) 20 mg capsule TAKE 1 CAPSULE BY MOUTH ONCE DAILY venlafaxine ER (EFFEXOR XR) 75 mg 24 hr capsule Take 1 capsule by mouth once daily. insulin needles, DISPOSABLE, (EASY TOUCH) 31 gauge x 5/16 Use one pen needle four times daily atorvastatin (LIPITOR) 80 mg tablet TAKE 1 TABLET DAILY AT BEDTIME FOR CHOLESTEROL dulaglutide (TRULICITY) 3 mg/0.5 mL pen injector Inject 3 mg subcutaneously one time a week. dulaglutide (TRULICITY) 3 mg/0.5 mL pen injector Inject 3 mg subcutaneously one time a week. insulin lispro (HUMALOG KWIKPEN INSULIN) 100 unit/mL 15 units at each meal In addition to sliding scale insulin glargine (LANTUS SOLOSTAR, BASAGLAR KWIKPEN) 100 unit/mL (3 mL) Inject 50 Units subcutaneously daily at bedtime. blood sugar diagnostic (BLOOD GLUCOSE TEST) test strip Test blood sugar(s) 2 times daily. Dx: Type 2 DM - Controlled E11.9 Insulin: Yes Lancets lancets Test blood sugar(s) 2 times daily. Dx: Type 2 DM - Controlled E11.9 Insulin: Yes Blood Sugar Diagnostic, Drum (ACCU-CHEK COMPACT TEST) strp Test twice daily or as directed. DX: 250.02 Insulin: Yes albuterol HFA (VENTOLIN HFA) 90 mcg/actuation inhaler Inhale 2 Puffs as instructed every 4 hours asneeded for Wheezing/Shortness of Breath. (Patient not taking: Reported on 08/12/2021 ) aspirin, enteric coated (ASPIR-LOW) 81 mg EC tablet Take 1 tablet by mouth once daily. acetaminophen (TYLENOL) 325 mg tablet Take 2 tablets by mouth every 4 hours as needed for Pain. clobetasol 0.05 % ointment Apply to affected spot(s) or patches of eczema and psoriasis of hands (palms and dorsal areas) selectively qday to bid until clear as directed and tolerated; taper off as able to bland emollient moisturizing cream (eg Cetaphil Cream) as able. AVOID face, eyes/eyelids, anddeep fold areas. lancets(ACCU-CHEK SOFTCLIX LANCETS) Test Blood sugar once daily. 250.02 No current facility-administered medications for this visit. ALLERGIES: ALLERGIES Allergen Reactions Metformin Diarrhea Penicillins PAST MEDICAL HISTORY Diagnosis Date ANXIETY STATE NOS 08/19/2005 Controlled with effexor Benign neoplasm of colon 2010 Dysmetabolic syndrome X Hyperlipidemia Lung nodule nodule no longer seen in 2015 Other specified disorder of penis erectile dysfunction PERS HX TOBACCO USE 04/06/2006 Cigarettes 1.5 PPD Psoriasis Skin cancer Stroke (cerebrum) (HCC) Tobacco use disorder Type II or unspecified type diabetes mellitus without mention of complication, uncontrolled 08/07/2010 Diagnosed 07/2010 PAST SURGICAL HISTORY Procedure Laterality Date COLONOSCOPY FLX DX W/COLLJ SPEC WHEN PFRMD 12/08/2010 Colonoscopy, due 2013 COLONOSCOPY FLX DX W/COLLJ SPEC WHEN PFRMD 10/06/2021 CT BRAIN 07/14/2010 neg, white matter changes associated with small vessel disease CT CHEST W IVCON 07/01/2015 resolution pleural effusion; small pleural based nodule, decrease right hilar lymphadenopathy, mildemphysema CTA CHEST 02/17/2015 No PE; right hium atelectasis vs small nodule, right hilar lymphadenopathy; right pleural effusion EXTER CAROTIDS UNI 2010 NEGATIVE EYE SURGERY HX NM CARDIAC PERF STRESS/EXERCISE 07/20/2011 WNL PAST SURGICAL HISTORY OF 1962 Testicular as child PAST SURGICAL HISTORY OF 07/13/2012 Right rotator cuff RMVL LENS MATERIAL PHACOFRAGMENTATION ASPIR 01/2011, 02/2011 Cataract Extraction bilateral SKIN BIOPSY HX SPHINCTEROTOMY ANAL DIVISION SPHINCTER SPX 2004 FAMILY HISTORY Problem Relation Age of Onset Alzheimer's Disease Father Cancer Mother Breast Cancer, thyroid other (Pre diabetes) Brother Social History Tobacco Use Smoking status: Former Smoker Packs/day: 0.50 Types: Cigarettes Smokeless tobacco: Never Used Substance Use Topics Alcohol use: Yes Comment: occasionally beer or liquor Drug use: Yes Comment: Marijuana couple times a week. Reviewed current medications, allergies, past medical history, surgical history, family history andsocial history today. REVIEW OF SYSTEMS GI: Negative for blood in stools or black stools, change in bowel habit : drinks alot of ice tea. discussed limiting caffiene. has noted some dribbling. .wlprostate All other reviewed and negative other than HPI. HEALTH MAINTENANCE: Reviewed health maintenance issues today and recommended the following in detail. DILATED RETINAL EXAM - is due. ADVANCE DIRECTIVE DISCUSSION- has dpoa and living will. VITALS: BP 120/82 Pulse 80 Wt 109.8 kg (242 lb) BMI 32.42 kg/m Last 4 Encounter Wt Readings: Date: Wt: 02/15/2022 109.8 kg (242 lb) 11/11/2021 110.2 kg (243 lb) 11/03/2021 109.3 kg (241 lb) 09/04/2021 110.2 kg (243 lb) PHYSICAL EXAMINATION: General appearance: Well appearing, alert, in no acute distress, well-hydrated, well nourished. Skin: Skin color, texture, turgor normal, no suspicious rashes or lesions Head: Normocephalic, no masses, lesions, tenderness or abnormalities Neck: Supple, no adenopathy; thyroid symmetric, normal size, no bruits Back: Normal exam Lungs: Lungs clear to auscultation. No wheezing, rhonchi, rales Heart: RRR without murmur, gallop, or rubs. No ectopy Abdomen: Normal abdominal exam, Abdomen soft, non-tender. Bowel sounds normal. No masses, organomegaly Extremities: No deformities, edema, skin discoloration, clubbing or cyanosis. Good capillary refill. ASSESSMENT/PLAN: 1. Controlled type 2 diabetes mellitus without complication, without long-term current use of insulin (HCC) - ICD9: 250.00, ICD10: E11.9 (primary diagnosis) - continue current meds. Call if any changes. Adjust insulin. Call sugars. Reinforced diet and exercise. - BASIC METABOLIC PNL - HGB A1C - ALBUMIN/CREAT RATIO RND UR 2. Bilateral carotid artery stenosis - ICD9: 433.10, 433.30, ICD10: I65.23 - check next year. 3. Abdominal aortic aneurysm (AAA) without rupture (HCC) - ICD9: 441.4, ICD10: I71.4 - get us. 4. Hyperlipidemia, unspecified hyperlipidemia type - ICD9: 272.4, ICD10: E78.5 - good control - Continue current medication. 5. CALLI (obstructive sleep apnea) - ICD9: 327.23, ICD10: G47.33 - continue cpap Lia Markham RTO in six months and prn. [facility] of Past illness Narrative* Problem Noted Date Resolved Date 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 10/12/2011 09/21/2016 Actinic Keratosis (Premalignant AK): R nose 09/2209/21/2016 Cutaneous skin tags 10/12/2011 09/21/2016 Dermatofibroma of forearm 10/12/20112015 Actinic skin damage 10/12/2011 09/21/2016 Viral warts, unspecified 08/16/2006 016 Inflamed seborrheic keratosis 08/16/2006 Contact dermatitis and other eczema, due to unspecified cause 08/16/2006 09/19/2012 XEROSIS 08/16/2006 09/21/2016 ERECTILE DYSFUNCTION 04/06/2006 09/21/2016 Overview: Adequate response with viagra Anxiety state, unspecified 08/19/200509/21 Overview: Controlled with effexor Other malaise and fatigue 08/03/20052009 Unspecified disorder of prostate 08/03/2005 08/07/2010 Hyperlipidemia 07/30/2015 documented as of this encounter (statuses as of 02/15/2022) [facility] of Past illness Narrative* Problem Noted Date Resolved Date 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 10/12/2011 09/21/2016 Actinic Keratosis (Premalignant AK): R nose 09/2209/21/2016 Cutaneous skin tags 10/12/2011 09/21/2016 Dermatofibroma of forearm 10/12/20112015 Actinic skin damage 10/12/2011 09/21/2016 Viral warts, unspecified 08/16/2006 016 Inflamed seborrheic keratosis 08/16/2006 Contact dermatitis and other eczema, due to unspecified cause 08/16/2006 09/19/2012 XEROSIS 08/16/2006 09/21/2016 ERECTILE DYSFUNCTION 04/06/2006 09/21/2016 Overview: Adequate response with viagra Anxiety state, unspecified 08/19/200509/21 Overview: Controlled with effexor Other malaise and fatigue 08/03/20052009 Unspecified disorder of prostate 08/03/2005 08/07/2010 Hyperlipidemia 07/30/2015 documented as of this encounter (statuses as of 02/18/2022) [facility] Narrative* Problem Noted Date Resolved Date 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 10/12/2011 09/21/2016 Actinic Keratosis (Premalignant AK): R nose 09/2209/21/2016 Cutaneous skin tags 10/12/2011 09/21/2016 Dermatofibroma of forearm 10/12/20112015 Actinic skin damage 10/12/2011 09/21/2016 Viral warts, unspecified 08/16/2006 016 Inflamed seborrheic keratosis 08/16/2006 Contact dermatitis and other eczema, due to unspecified cause 08/16/2006 09/19/2012 XEROSIS 08/16/2006 09/21/2016 ERECTILE DYSFUNCTION 04/06/2006 09/21/2016 Overview: Adequate response with viagra Anxiety state, unspecified 08/19/200509/21 Overview: Controlled with effexor Other malaise and fatigue 08/03/20052009 Unspecified disorder of prostate 08/03/2005 08/07/2010 Hyperlipidemia 07/30/2015 documented as of this encounter (statuses as of 03/24/2022) [facility] of [facility] Narrative* Problem Noted Date Resolved Date 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 10/12/2011 09/21/2016 Actinic Keratosis (Premalignant AK): R nose 09/2209/21/2016 Cutaneous skin tags 10/12/2011 09/21/2016 Dermatofibroma of forearm 10/12/20112015 Actinic skin damage 10/12/2011 09/21/2016 Viral warts, unspecified 08/16/2006 016 Inflamed seborrheic keratosis 08/16/2006 Contact dermatitis and other eczema, due to unspecified cause 08/16/2006 09/19/2012 XEROSIS 08/16/2006 09/21/2016 ERECTILE DYSFUNCTION 04/06/2006 09/21/2016 Overview: Adequate response with viagra Anxiety state, unspecified 08/19/200509/21 Overview: Controlled with effexor Other malaise and fatigue 08/03/20052009 Unspecified disorder of prostate 08/03/2005 08/07/2010 Hyperlipidemia 07/30/2015 documented as of this encounter (statuses as of 05/05/2022) [facility] of [facility] Narrative* Problem Noted Date Resolved Date 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 10/12/2011 09/21/2016 Actinic Keratosis (Premalignant AK): R nose 09/2209/21/2016 Cutaneous skin tags 10/12/2011 09/21/2016 Dermatofibroma of forearm 10/12/20112015 Actinic skin damage 10/12/2011 09/21/2016 Viral warts, unspecified 08/16/2006 016 Inflamed seborrheic keratosis 08/16/2006 Contact dermatitis and other eczema, due to unspecified cause 08/16/2006 09/19/2012 XEROSIS 08/16/2006 09/21/2016 ERECTILE DYSFUNCTION 04/06/2006 09/21/2016 Overview: Adequate response with viagra Anxiety state, unspecified 08/19/200509/21 Overview: Controlled with effexor Other malaise and fatigue 08/03/20052009 Unspecified disorder of prostate 08/03/2005 08/07/2010 Hyperlipidemia 07/30/2015 documented as of this encounter (statuses as of 06/15/2022) [facility] of [facility]ative* Problem Noted Date Resolved Date 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 10/12/2011 09/21/2016 Actinic Keratosis (Premalignant AK): R nose 09/2209/21/2016 Cutaneous skin tags 10/12/2011 09/21/2016 Dermatofibroma of forearm 10/12/20112015 Actinic skin damage 10/12/2011 09/21/2016 Viral warts, unspecified 08/16/2006 016 Inflamed seborrheic keratosis 08/16/2006 Contact dermatitis and other eczema, due to unspecified cause 08/16/2006 09/19/2012 XEROSIS 08/16/2006 09/21/2016 ERECTILE DYSFUNCTION 04/06/2006 09/21/2016 Overview: Adequate response with viagra Anxiety state, unspecified 08/19/200509/21 Overview: Controlled with effexor Other malaise and fatigue 08/03/20052009 Unspecified disorder of prostate 08/03/2005 08/07/2010 Hyperlipidemia 07/30/2015 documented as of this encounter (statuses as of 06/16/2022) [facility] of [facility] Narrative* Problem Noted Date Resolved Date 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 10/12/2011 09/21/2016 Actinic Keratosis (Premalignant AK): R nose 09/2209/21/2016 Cutaneous skin tags 10/12/2011 09/21/2016 Dermatofibroma of forearm 10/12/20112015 Actinic skin damage 10/12/2011 09/21/2016 Viral warts, unspecified 08/16/2006 016 Inflamed seborrheic keratosis 08/16/2006 Contact dermatitis and other eczema, due to unspecified cause 08/16/2006 09/19/2012 XEROSIS 08/16/2006 09/21/2016 ERECTILE DYSFUNCTION 04/06/2006 09/21/2016 Overview: Adequate response with viagra Anxiety state, unspecified 08/19/200509/21 Overview: Controlled with effexor Other malaise and fatigue 08/03/20052009 Unspecified disorder of prostate 08/03/2005 08/07/2010 Hyperlipidemia 07/30/2015 documented as of this encounter (statuses as of 06/21/2022) [facility] of [facility] N[facility]ative* Problem Noted Date Resolved Date 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 10/12/2011 09/21/2016 Actinic Keratosis (Premalignant AK): R nose 09/2209/21/2016 Cutaneous skin tags 10/12/2011 09/21/2016 Dermatofibroma of forearm 10/12/20112015 Actinic skin damage 10/12/2011 09/21/2016 Viral warts, unspecified 08/16/2006 016 Inflamed seborrheic keratosis 08/16/2006 Contact dermatitis and other eczema, due to unspecified cause 08/16/2006 09/19/2012 XEROSIS 08/16/2006 09/21/2016 ERECTILE DYSFUNCTION 04/06/2006 09/21/2016 Overview: Adequate response with viagra Anxiety state, unspecified 08/19/200509/21 Overview: Controlled with effexor Other malaise and fatigue 08/03/20052009 Unspecified disorder of prostate 08/03/2005 08/07/2010 Hyperlipidemia 07/30/2015 documented as of this encounter (statuses as of 06/24/2022) [facility] Narrative* Problem Noted Date Resolved Date 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 10/12/2011 09/21/2016 Actinic Keratosis (Premalignant AK): R nose 09/2209/21/2016 Cutaneous skin tags 10/12/2011 09/21/2016 Dermatofibroma of forearm 10/12/20112015 Actinic skin damage 10/12/2011 09/21/2016 Viral warts, unspecified 08/16/2006 016 Inflamed seborrheic keratosis 08/16/2006 Contact dermatitis and other eczema, due to unspecified cause 08/16/2006 09/19/2012 XEROSIS 08/16/2006 09/21/2016 ERECTILE DYSFUNCTION 04/06/2006 09/21/2016 Overview: Adequate response with viagra Anxiety state, unspecified 08/19/200509/21 Overview: Controlled with effexor Other malaise and fatigue 08/03/20052009 Unspecified disorder of prostate 08/03/2005 08/07/2010 Hyperlipidemia 07/30/2015 documented as of this encounter (statuses as of 06/24/2022) [facility]arrative* Problem Noted Date Resolved Date 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 10/12/2011 09/21/2016 Actinic Keratosis (Premalignant AK): R nose 09/2209/21/2016 Cutaneous skin tags 10/12/2011 09/21/2016 Dermatofibroma of forearm 10/12/20112015 Actinic skin damage 10/12/2011 09/21/2016 Viral warts, unspecified 08/16/2006 016 Inflamed seborrheic keratosis 08/16/2006 Contact dermatitis and other eczema, due to unspecified cause 08/16/2006 09/19/2012 XEROSIS 08/16/2006 09/21/2016 ERECTILE DYSFUNCTION 04/06/2006 09/21/2016 Overview: Adequate response with viagra Anxiety state, unspecified 08/19/200509/21 Overview: Controlled with effexor Other malaise and fatigue 08/03/20052009 Unspecified disorder of prostate 08/03/2005 08/07/2010 Hyperlipidemia 07/30/2015 documented as of this encounter (statuses as of 06/25/2022) [facility] Narrative* Problem Noted Date Resolved Date 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 10/12/2011 09/21/2016 Actinic Keratosis (Premalignant AK): R nose 09/2209/21/2016 Cutaneous skin tags 10/12/2011 09/21/2016 Dermatofibroma of forearm 10/12/20112015 Actinic skin damage 10/12/2011 09/21/2016 Viral warts, unspecified 08/16/2006 016 Inflamed seborrheic keratosis 08/16/2006 Contact dermatitis and other eczema, due to unspecified cause 08/16/2006 09/19/2012 XEROSIS 08/16/2006 09/21/2016 ERECTILE DYSFUNCTION 04/06/2006 09/21/2016 Overview: Adequate response with viagra Anxiety state, unspecified 08/19/200509/21 Overview: Controlled with effexor Other malaise and fatigue 08/03/20052009 Unspecified disorder of prostate 08/03/2005 08/07/2010 Hyperlipidemia 07/30/2015 documented as of this encounter (statuses as of 07/02/2022) [facility]* Problem Noted Date Resolved Date 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 10/12/2011 09/21/2016 Actinic Keratosis (Premalignant AK): R nose 09/2209/21/2016 Cutaneous skin tags 10/12/2011 09/21/2016 Dermatofibroma of forearm 10/12/20112015 Actinic skin damage 10/12/2011 09/21/2016 Viral warts, unspecified 08/16/2006 016 Inflamed seborrheic keratosis 08/16/2006 Contact dermatitis and other eczema, due to unspecified cause 08/16/2006 09/19/2012 XEROSIS 08/16/2006 09/21/2016 ERECTILE DYSFUNCTION 04/06/2006 09/21/2016 Overview: Adequate response with viagra Anxiety state, unspecified 08/19/200509/21 Overview: Controlled with effexor Other malaise and fatigue 08/03/20052009 Unspecified disorder of prostate 08/03/2005 08/07/2010 Hyperlipidemia 07/30/2015 documented as of this encounter (statuses as of 07/05/2022) [facility]ative* Problem Noted Date Resolved Date 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 10/12/2011 09/21/2016 Actinic Keratosis (Premalignant AK): R nose 09/2209/21/2016 Cutaneous skin tags 10/12/2011 09/21/2016 Dermatofibroma of forearm 10/12/20112015 Actinic skin damage 10/12/2011 09/21/2016 Viral warts, unspecified 08/16/2006 016 Inflamed seborrheic keratosis 08/16/2006 Contact dermatitis and other eczema, due to unspecified cause 08/16/2006 09/19/2012 XEROSIS 08/16/2006 09/21/2016 ERECTILE DYSFUNCTION 04/06/2006 09/21/2016 Overview: Adequate response with viagra Anxiety state, unspecified 08/19/200509/21 Overview: Controlled with effexor Other malaise and fatigue 08/03/20052009 Unspecified disorder of prostate 08/03/2005 08/07/2010 Hyperlipidemia 07/30/2015 documented as of this encounter (statuses as of 07/20/2022) [facility]* Problem Noted Date Resolved Date 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 10/12/2011 09/21/2016 Actinic Keratosis (Premalignant AK): R nose 09/2209/21/2016 Cutaneous skin tags 10/12/2011 09/21/2016 Dermatofibroma of forearm 10/12/20112015 Actinic skin damage 10/12/2011 09/21/2016 Viral warts, unspecified 08/16/2006 016 Inflamed seborrheic keratosis 08/16/2006 Contact dermatitis and other eczema, due to unspecified cause 08/16/2006 09/19/2012 XEROSIS 08/16/2006 09/21/2016 ERECTILE DYSFUNCTION 04/06/2006 09/21/2016 Overview: Adequate response with viagra Anxiety state, unspecified 08/19/200509/21 Overview: Controlled with effexor Other malaise and fatigue 08/03/20052009 Unspecified disorder of prostate 08/03/2005 08/07/2010 Hyperlipidemia 07/30/2015 documented as of this encounter (statuses as of 08/18/2022) [facility]* Problem Noted Date Resolved Date 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 10/12/2011 09/21/2016 Actinic Keratosis (Premalignant AK): R nose 09/2209/21/2016 Cutaneous skin tags 10/12/2011 09/21/2016 Dermatofibroma of forearm 10/12/20112015 Actinic skin damage 10/12/2011 09/21/2016 Viral warts, unspecified 08/16/2006 016 Inflamed seborrheic keratosis 08/16/2006 Contact dermatitis and other eczema, due to unspecified cause 08/16/2006 09/19/2012 XEROSIS 08/16/2006 09/21/2016 ERECTILE DYSFUNCTION 04/06/2006 09/21/2016 Overview: Adequate response with viagra Anxiety state, unspecified 08/19/200509/21 Overview: Controlled with effexor Other malaise and fatigue 08/03/20052009 Unspecified disorder of prostate 08/03/2005 08/07/2010 Hyperlipidemia 07/30/2015 documented as of this encounter (statuses as of 08/20/2022) [facility]* Problem Noted Date Resolved Date 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 10/12/2011 09/21/2016 Actinic Keratosis (Premalignant AK): R nose 09/2209/21/2016 Cutaneous skin tags 10/12/2011 09/21/2016 Dermatofibroma of forearm 10/12/20112015 Actinic skin damage 10/12/2011 09/21/2016 Viral warts, unspecified 08/16/2006 016 Inflamed seborrheic keratosis 08/16/2006 Contact dermatitis and other eczema, due to unspecified cause 08/16/2006 09/19/2012 XEROSIS 08/16/2006 09/21/2016 ERECTILE DYSFUNCTION 04/06/2006 09/21/2016 Overview: Adequate response with viagra Anxiety state, unspecified 08/19/200509/21 Overview: Controlled with effexor Other malaise and fatigue 08/03/20052009 Unspecified disorder of prostate 08/03/2005 08/07/2010 Hyperlipidemia 07/30/2015 documented as of this encounter (statuses as of 08/25/2022) [facility]* Problem Noted Date Resolved Date 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 10/12/2011 09/21/2016 Actinic Keratosis (Premalignant AK): R nose 09/2209/21/2016 Cutaneous skin tags 10/12/2011 09/21/2016 Dermatofibroma of forearm 10/12/20112015 Actinic skin damage 10/12/2011 09/21/2016 Viral warts, unspecified 08/16/2006 016 Inflamed seborrheic keratosis 08/16/2006 Contact dermatitis and other eczema, due to unspecified cause 08/16/2006 09/19/2012 XEROSIS 08/16/2006 09/21/2016 ERECTILE DYSFUNCTION 04/06/2006 09/21/2016 Overview: Adequate response with viagra Anxiety state, unspecified 08/19/200509/21 Overview: Controlled with effexor Other malaise and fatigue 08/03/20052009 Unspecified disorder of prostate 08/03/2005 08/07/2010 Hyperlipidemia 07/30/2015 documented as of this encounter (statuses as of 08/27/2022) [facility]arrative* Problem Noted Date Resolved Date 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 10/12/2011 09/21/2016 Actinic Keratosis (Premalignant AK): R nose 09/2209/21/2016 Cutaneous skin tags 10/12/2011 09/21/2016 Dermatofibroma of forearm 10/12/20112015 Actinic skin damage 10/12/2011 09/21/2016 Viral warts, unspecified 08/16/2006 016 Inflamed seborrheic keratosis 08/16/2006 Contact dermatitis and other eczema, due to unspecified cause 08/16/2006 09/19/2012 XEROSIS 08/16/2006 09/21/2016 ERECTILE DYSFUNCTION 04/06/2006 09/21/2016 Overview: Adequate response with viagra Anxiety state, unspecified 08/19/200509/21 Overview: Controlled with effexor Other malaise and fatigue 08/03/20052009 Unspecified disorder of prostate 08/03/2005 08/07/2010 Hyperlipidemia 07/30/2015 documented as of this encounter (statuses as of 08/31/2022) [facility]11-[facility]-2011 History of Past illness Narrative* Problem Noted Date Resolved Date 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 10/12/2011 09/21/2016 Actinic Keratosis (Premalignant AK): R nose 09/2209/21/2016 Cutaneous skin tags 10/12/2011 09/21/2016 Dermatofibroma of forearm 10/12/20112015 Actinic skin damage 10/12/2011 09/21/2016 Viral warts, unspecified 08/16/2006 016 Inflamed seborrheic keratosis 08/16/2006 Contact dermatitis and other eczema, due to unspecified cause 08/16/2006 09/19/2012 XEROSIS 08/16/2006 09/21/2016 ERECTILE DYSFUNCTION 04/06/2006 09/21/2016 Overview: Adequate response with viagra Anxiety state, unspecified 08/19/200509/21 Overview: Controlled with effexor Other malaise and fatigue 08/03/20052009 Unspecified disorder of prostate 08/03/2005 08/07/2010 Hyperlipidemia 07/30/2015 documented as of this encounter (statuses as of 08/31/2022) [facility]2011 History of Past illness Narrative* Problem Noted Date Resolved Date 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 10/12/2011 09/21/2016 Actinic Keratosis (Premalignant AK): R nose 09/2209/21/2016 Cutaneous skin tags 10/12/2011 09/21/2016 Dermatofibroma of forearm 10/12/20112015 Actinic skin damage 10/12/2011 09/21/2016 Viral warts, unspecified 08/16/2006 016 Inflamed seborrheic keratosis 08/16/2006 Contact dermatitis and other eczema, due to unspecified cause 08/16/2006 09/19/2012 XEROSIS 08/16/2006 09/21/2016 ERECTILE DYSFUNCTION 04/06/2006 09/21/2016 Overview: Adequate response with viagra Anxiety state, unspecified 08/19/200509/21 Overview: Controlled with effexor Other malaise and fatigue 08/03/20052009 Unspecified disorder of prostate 08/03/2005 08/07/2010 Hyperlipidemia 07/30/2015 documented as of this encounter (statuses as of 09/03/2022) [facility]2011 History of Past illness Narrative* Problem Noted Date Resolved Date 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 10/12/2011 09/21/2016 Actinic Keratosis (Premalignant AK): R nose 09/2209/21/2016 Cutaneous skin tags 10/12/2011 09/21/2016 Dermatofibroma of forearm 10/12/20112015 Actinic skin damage 10/12/2011 09/21/2016 Viral warts, unspecified 08/16/2006 016 Inflamed seborrheic keratosis 08/16/2006 Contact dermatitis and other eczema, due to unspecified cause 08/16/2006 09/19/2012 XEROSIS 08/16/2006 09/21/2016 ERECTILE DYSFUNCTION 04/06/2006 09/21/2016 Overview: Adequate response with viagra Anxiety state, unspecified 08/19/200509/21 Overview: Controlled with effexor Other malaise and fatigue 08/03/20052009 Unspecified disorder of prostate 08/03/2005 08/07/2010 Hyperlipidemia 07/30/2015 documented as of this encounter (statuses as of 09/06/2022) [facility]2011 History of Past illness Narrative* Problem Noted Date Resolved Date 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 10/12/2011 09/21/2016 Actinic Keratosis (Premalignant AK): R nose 09/2209/21/2016 Cutaneous skin tags 10/12/2011 09/21/2016 Dermatofibroma of forearm 10/12/20112015 Actinic skin damage 10/12/2011 09/21/2016 Viral warts, unspecified 08/16/2006 016 Inflamed seborrheic keratosis 08/16/2006 Contact dermatitis and other eczema, due to unspecified cause 08/16/2006 09/19/2012 XEROSIS 08/16/2006 09/21/2016 ERECTILE DYSFUNCTION 04/06/2006 09/21/2016 Overview: Adequate response with viagra Anxiety state, unspecified 08/19/200509/21 Overview: Controlled with effexor Other malaise and fatigue 08/03/20052009 Unspecified disorder of prostate 08/03/2005 08/07/2010 Hyperlipidemia 07/30/2015 documented as of this encounter (statuses as of 09/07/2022) [facility]2011 History of Past illness Narrative* Problem Noted Date Resolved Date 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 10/12/2011 09/21/2016 Actinic Keratosis (Premalignant AK): R nose 09/2209/21/2016 Cutaneous skin tags 10/12/2011 09/21/2016 Dermatofibroma of forearm 10/12/20112015 Actinic skin damage 10/12/2011 09/21/2016 Viral warts, unspecified 08/16/2006 016 Inflamed seborrheic keratosis 08/16/2006 Contact dermatitis and other eczema, due to unspecified cause 08/16/2006 09/19/2012 XEROSIS 08/16/2006 09/21/2016 ERECTILE DYSFUNCTION 04/06/2006 09/21/2016 Overview: Adequate response with viagra Anxiety state, unspecified 08/19/200509/21 Overview: Controlled with effexor Other malaise and fatigue 08/03/20052009 Unspecified disorder of prostate 08/03/2005 08/07/2010 Hyperlipidemia 07/30/2015 documented as of this encounter (statuses as of 09/07/2022) [facility] History of Past illness Narrative* Problem Noted Date Resolved Date 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 10/12/2011 09/21/2016 Actinic Keratosis (Premalignant AK): R nose 09/2209/21/2016 Cutaneous skin tags 10/12/2011 09/21/2016 Dermatofibroma of forearm 10/12/20112015 Actinic skin damage 10/12/2011 09/21/2016 Viral warts, unspecified 08/16/2006 016 Inflamed seborrheic keratosis 08/16/2006 Contact dermatitis and other eczema, due to unspecified cause 08/16/2006 09/19/2012 XEROSIS 08/16/2006 09/21/2016 ERECTILE DYSFUNCTION 04/06/2006 09/21/2016 Overview: Adequate response with viagra Anxiety state, unspecified 08/19/200509/21 Overview: Controlled with effexor Other malaise and fatigue 08/03/20052009 Unspecified disorder of prostate 08/03/2005 08/07/2010 Hyperlipidemia 07/30/2015 documented as of this encounter (statuses as of 09/09/2022) [facility]2011 History of Past illness Narrative* Problem Noted Date Resolved Date 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 10/12/2011 09/21/2016 Actinic Keratosis (Premalignant AK): R nose 09/2209/21/2016 Cutaneous skin tags 10/12/2011 09/21/2016 Dermatofibroma of forearm 10/12/20112015 Actinic skin damage 10/12/2011 09/21/2016 Viral warts, unspecified 08/16/2006 016 Inflamed seborrheic keratosis 08/16/2006 Contact dermatitis and other eczema, due to unspecified cause 08/16/2006 09/19/2012 XEROSIS 08/16/2006 09/21/2016 ERECTILE DYSFUNCTION 04/06/2006 09/21/2016 Overview: Adequate response with viagra Anxiety state, unspecified 08/19/200509/21 Overview: Controlled with effexor Other malaise and fatigue 08/03/20052009 Unspecified disorder of prostate 08/03/2005 08/07/2010 Hyperlipidemia 07/30/2015 documented as of this encounter (statuses as of 09/10/2022) [facility] History of Past illness Narrative* Problem Noted Date Resolved Date 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 10/12/2011 09/21/2016 Actinic Keratosis (Premalignant AK): R nose 09/2209/21/2016 Cutaneous skin tags 10/12/2011 09/21/2016 Dermatofibroma of forearm 10/12/20112015 Actinic skin damage 10/12/2011 09/21/2016 Viral warts, unspecified 08/16/2006 016 Inflamed seborrheic keratosis 08/16/2006 Contact dermatitis and other eczema, due to unspecified cause 08/16/2006 09/19/2012 XEROSIS 08/16/2006 09/21/2016 ERECTILE DYSFUNCTION 04/06/2006 09/21/2016 Overview: Adequate response with viagra Anxiety state, unspecified 08/19/200509/21 Overview: Controlled with effexor Other malaise and fatigue 08/03/20052009 Unspecified disorder of prostate 08/03/2005 08/07/2010 Hyperlipidemia 07/30/2015 documented as of this encounter (statuses as of 09/14/2022) [facility]2011 History of Past illness Narrative* Problem Noted Date Resolved Date 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 10/12/2011 09/21/2016 Actinic Keratosis (Premalignant AK): R nose 09/2209/21/2016 Cutaneous skin tags 10/12/2011 09/21/2016 Dermatofibroma of forearm 10/12/20112015 Actinic skin damage 10/12/2011 09/21/2016 Viral warts, unspecified 08/16/2006 016 Inflamed seborrheic keratosis 08/16/2006 Contact dermatitis and other eczema, due to unspecified cause 08/16/2006 09/19/2012 XEROSIS 08/16/2006 09/21/2016 ERECTILE DYSFUNCTION 04/06/2006 09/21/2016 Overview: Adequate response with viagra Anxiety state, unspecified 08/19/200509/21 Overview: Controlled with effexor Other malaise and fatigue 08/03/20052009 Unspecified disorder of prostate 08/03/2005 08/07/2010 Hyperlipidemia 07/30/2015 documented as of this encounter (statuses as of 09/20/2022) [facility] History of Past illness Narrative* Problem Noted Date Resolved Date 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 10/12/2011 09/21/2016 Actinic Keratosis (Premalignant AK): R nose 09/2209/21/2016 Cutaneous skin tags 10/12/2011 09/21/2016 Dermatofibroma of forearm 10/12/20112015 Actinic skin damage 10/12/2011 09/21/2016 Viral warts, unspecified 08/16/2006 016 Inflamed seborrheic keratosis 08/16/2006 Contact dermatitis and other eczema, due to unspecified cause 08/16/2006 09/19/2012 XEROSIS 08/16/2006 09/21/2016 ERECTILE DYSFUNCTION 04/06/2006 09/21/2016 Overview: Adequate response with viagra Anxiety state, unspecified 08/19/200509/21 Overview: Controlled with effexor Other malaise and fatigue 08/03/20052009 Unspecified disorder of prostate 08/03/2005 08/07/2010 Hyperlipidemia 07/30/2015 documented as of this encounter (statuses as of 09/21/2022) [facility]2011 History of Past illness Narrative* Problem Noted Date Resolved Date 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 10/12/2011 09/21/2016 Actinic Keratosis (Premalignant AK): R nose 09/2209/21/2016 Cutaneous skin tags 10/12/2011 09/21/2016 Dermatofibroma of forearm 10/12/20112015 Actinic skin damage 10/12/2011 09/21/2016 Viral warts, unspecified 08/16/2006 016 Inflamed seborrheic keratosis 08/16/2006 Contact dermatitis and other eczema, due to unspecified cause 08/16/2006 09/19/2012 XEROSIS 08/16/2006 09/21/2016 ERECTILE DYSFUNCTION 04/06/2006 09/21/2016 Overview: Adequate response with viagra Anxiety state, unspecified 08/19/200509/21 Overview: Controlled with effexor Other malaise and fatigue 08/03/20052009 Unspecified disorder of prostate 08/03/2005 08/07/2010 Hyperlipidemia 07/30/2015 documented as of this encounter (statuses as of 09/22/2022) [facility] History of Past illness Narrative* Problem Noted Date Resolved Date 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 10/12/2011 09/21/2016 Actinic Keratosis (Premalignant AK): R nose 09/2209/21/2016 Cutaneous skin tags 10/12/2011 09/21/2016 Dermatofibroma of forearm 10/12/20112015 Actinic skin damage 10/12/2011 09/21/2016 Viral warts, unspecified 08/16/2006 016 Inflamed seborrheic keratosis 08/16/2006 Contact dermatitis and other eczema, due to unspecified cause 08/16/2006 09/19/2012 XEROSIS 08/16/2006 09/21/2016 ERECTILE DYSFUNCTION 04/06/2006 09/21/2016 Overview: Adequate response with viagra Anxiety state, unspecified 08/19/200509/21 Overview: Controlled with effexor Other malaise and fatigue 08/03/20052009 Unspecified disorder of prostate 08/03/2005 08/07/2010 Hyperlipidemia 07/30/2015 documented as of this encounter (statuses as of 10/22/2022) [facility]2011 History of Past illness Narrative* Problem Noted Date Resolved Date 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 10/12/2011 09/21/2016 Actinic Keratosis (Premalignant AK): R nose 09/2209/21/2016 Cutaneous skin tags 10/12/2011 09/21/2016 Dermatofibroma of forearm 10/12/20112015 Actinic skin damage 10/12/2011 09/21/2016 Viral warts, unspecified 08/16/2006 016 Inflamed seborrheic keratosis 08/16/2006 Contact dermatitis and other eczema, due to unspecified cause 08/16/2006 09/19/2012 XEROSIS 08/16/2006 09/21/2016 ERECTILE DYSFUNCTION 04/06/2006 09/21/2016 Overview: Adequate response with viagra Anxiety state, unspecified 08/19/200509/21 Overview: Controlled with effexor Other malaise and fatigue 08/03/20052009 Unspecified disorder of prostate 08/03/2005 08/07/2010 Hyperlipidemia 07/30/2015 documented as of this encounter (statuses as of 10/22/2022) [facility]2011 History of Past illness Narrative* Problem Noted Date Resolved Date 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 10/12/2011 09/21/2016 Actinic Keratosis (Premalignant AK): R nose 09/2209/21/2016 Cutaneous skin tags 10/12/2011 09/21/2016 Dermatofibroma of forearm 10/12/20112015 Actinic skin damage 10/12/2011 09/21/2016 Viral warts, unspecified 08/16/2006 016 Inflamed seborrheic keratosis 08/16/2006 Contact dermatitis and other eczema, due to unspecified cause 08/16/2006 09/19/2012 XEROSIS 08/16/2006 09/21/2016 ERECTILE DYSFUNCTION 04/06/2006 09/21/2016 Overview: Adequate response with viagra Anxiety state, unspecified 08/19/200509/21 Overview: Controlled with effexor Other malaise and fatigue 08/03/20052009 Unspecified disorder of prostate 08/03/2005 08/07/2010 Hyperlipidemia 07/30/2015 documented as of this encounter (statuses as of 11/04/2022) [facility] History of Past illness Narrative* Problem Noted Date Resolved Date 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 10/12/2011 09/21/2016 Actinic Keratosis (Premalignant AK): R nose 09/2209/21/2016 Cutaneous skin tags 10/12/2011 09/21/2016 Dermatofibroma of forearm 10/12/20112015 Actinic skin damage 10/12/2011 09/21/2016 Viral warts, unspecified 08/16/2006 016 Inflamed seborrheic keratosis 08/16/2006 Contact dermatitis and other eczema, due to unspecified cause 08/16/2006 09/19/2012 XEROSIS 08/16/2006 09/21/2016 ERECTILE DYSFUNCTION 04/06/2006 09/21/2016 Overview: Adequate response with viagra Anxiety state, unspecified 08/19/200509/21 Overview: Controlled with effexor Other malaise and fatigue 08/03/20052009 Unspecified disorder of prostate 08/03/2005 08/07/2010 Hyperlipidemia 07/30/2015 documented as of this encounter (statuses as of 02/07/2023) [facility] History of Past illness Narrative* Problem Noted Date Resolved Date 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 10/12/2011 09/21/2016 Actinic Keratosis (Premalignant AK): R nose 09/2209/21/2016 Cutaneous skin tags 10/12/2011 09/21/2016 Dermatofibroma of forearm 10/12/20112015 Actinic skin damage 10/12/2011 09/21/2016 Viral warts, unspecified 08/16/2006 016 Inflamed seborrheic keratosis 08/16/2006 Contact dermatitis and other eczema, due to unspecified cause 08/16/2006 09/19/2012 XEROSIS 08/16/2006 09/21/2016 ERECTILE DYSFUNCTION 04/06/2006 09/21/2016 Overview: Adequate response with viagra Anxiety state, unspecified 08/19/200509/21 Overview: Controlled with effexor Other malaise and fatigue 08/03/20052009 Unspecified disorder of prostate 08/03/2005 08/07/2010 Hyperlipidemia 07/30/2015 documented as of this encounter (statuses as of 02/11/2023) [facility] History of Past illness Narrative* Problem Noted Date Resolved Date 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 10/12/2011 09/21/2016 Actinic Keratosis (Premalignant AK): R nose 09/2209/21/2016 Cutaneous skin tags 10/12/2011 09/21/2016 Dermatofibroma of forearm 10/12/20112015 Actinic skin damage 10/12/2011 09/21/2016 Viral warts, unspecified 08/16/2006 016 Inflamed seborrheic keratosis 08/16/2006 Contact dermatitis and other eczema, due to unspecified cause 08/16/2006 09/19/2012 XEROSIS 08/16/2006 09/21/2016 ERECTILE DYSFUNCTION 04/06/2006 09/21/2016 Overview: Adequate response with viagra Anxiety state, unspecified 08/19/200509/21 Overview: Controlled with effexor Other malaise and fatigue 08/03/20052009 Unspecified disorder of prostate 08/03/2005 08/07/2010 Hyperlipidemia 07/30/2015 documented as of this encounter (statuses as of 03/21/2023) [facility] History of Past illness Narrative* Problem Noted Date Resolved Date 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 10/12/2011 09/21/2016 Actinic Keratosis (Premalignant AK): R nose 09/2209/21/2016 Cutaneous skin tags 10/12/2011 09/21/2016 Dermatofibroma of forearm 10/12/20112015 Actinic skin damage 10/12/2011 09/21/2016 Viral warts, unspecified 08/16/2006 016 Inflamed seborrheic keratosis 08/16/2006 Contact dermatitis and other eczema, due to unspecified cause 08/16/2006 09/19/2012 XEROSIS 08/16/2006 09/21/2016 ERECTILE DYSFUNCTION 04/06/2006 09/21/2016 Overview: Adequate response with viagra Anxiety state, unspecified 08/19/200509/21 Overview: Controlled with effexor Other malaise and fatigue 08/03/20052009 Unspecified disorder of prostate 08/03/2005 08/07/2010 Hyperlipidemia 07/30/2015 documented as of this encounter (statuses as of 03/22/2023) [facility] History of Past illness Narrative* Problem Noted Date Resolved Date 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 10/12/2011 09/21/2016 Actinic Keratosis (Premalignant AK): R nose 09/2209/21/2016 Cutaneous skin tags 10/12/2011 09/21/2016 Dermatofibroma of forearm 10/12/20112015 Actinic skin damage 10/12/2011 09/21/2016 Viral warts, unspecified 08/16/2006 016 Inflamed seborrheic keratosis 08/16/2006 Contact dermatitis and other eczema, due to unspecified cause 08/16/2006 09/19/2012 XEROSIS 08/16/2006 09/21/2016 ERECTILE DYSFUNCTION 04/06/2006 09/21/2016 Overview: Adequate response with viagra Anxiety state, unspecified 08/19/200509/21 Overview: Controlled with effexor Other malaise and fatigue 08/03/20052009 Unspecified disorder of prostate 08/03/2005 08/07/2010 Hyperlipidemia 07/30/2015 documented as of this encounter (statuses as of 04/04/2023) [facility] History of Past illness Narrative* Problem Noted Date Resolved Date 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 10/12/2011 09/21/2016 Actinic Keratosis (Premalignant AK): R nose 09/2209/21/2016 Cutaneous skin tags 10/12/2011 09/21/2016 Dermatofibroma of forearm 10/12/20112015 Actinic skin damage 10/12/2011 09/21/2016 Viral warts, unspecified 08/16/2006 016 Inflamed seborrheic keratosis 08/16/2006 Contact dermatitis and other eczema, due to unspecified cause 08/16/2006 09/19/2012 XEROSIS 08/16/2006 09/21/2016 ERECTILE DYSFUNCTION 04/06/2006 09/21/2016 Overview: Adequate response with viagra Anxiety state, unspecified 08/19/200509/21 Overview: Controlled with effexor Other malaise and fatigue 08/03/20052009 Unspecified disorder of prostate 08/03/2005 08/07/2010 Hyperlipidemia 07/30/2015 documented as of this encounter (statuses as of 04/04/2023) [facility] History of Past illness Narrative* Problem Noted Date Diagnosed Date Resolved Date 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 09/21/2016 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 10/12/2011 09/21/2016 Actinic Keratosis (Premalignant AK): R nose 10/12/2011 09/21/2016 Cutaneous skin tags 10/12/2011 09/21/20 16 Dermatofibroma of forearm 10/12/2011 Actinic skin damage 10/12/2011 09/21/20 16 Viral warts, unspecified 08/16/200611/2015 Inflamed seborrheic keratosis 08/16/2006 09/19/2012 Contact dermatitis and other eczema, due to unspecified cause 08/16/2006 09/19/2012 XEROSIS 08/16/2006 09/21/2016 ERECTILE DYSFUNCTION 04/06/2006 016 Overview: Adequate response with viagra Anxiety state, unspecified 08/19/200511/21/2015 Overview: Controlled with effexor Other malaise and fatigue 08/03/2005 Unspecified disorder of prostate 08/03/2005 08/07/2010 Hyperlipidemia 07/30/2015 documented as of this encounter (statuses as of 06/03/2023) [facility] History of Past illness Narrative* Problem Noted Date Diagnosed Date Resolved Date 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 09/21/2016 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 10/12/2011 09/21/2016 Actinic Keratosis (Premalignant AK): R nose 10/12/2011 09/21/2016 Cutaneous skin tags 10/12/2011 09/21/20 16 Dermatofibroma of forearm 10/12/2011 Actinic skin damage 10/12/2011 09/21/20 16 Viral warts, unspecified 08/16/200611/2015 Inflamed seborrheic keratosis 08/16/2006 09/19/2012 Contact dermatitis and other eczema, due to unspecified cause 08/16/2006 09/19/2012 XEROSIS 08/16/2006 09/21/2016 ERECTILE DYSFUNCTION 04/06/2006 016 Overview: Adequate response with viagra Anxiety state, unspecified 08/19/200511/21/2015 Overview: Controlled with effexor Other malaise and fatigue 08/03/2005 Unspecified disorder of prostate 08/03/2005 08/07/2010 Hyperlipidemia 07/30/2015 documented as of this encounter (statuses as of 07/11/2023) [facility] History of Past illness Narrative* Problem Noted Date Diagnosed Date Resolved Date 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 09/21/2016 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 10/12/2011 09/21/2016 Actinic Keratosis (Premalignant AK): R nose 10/12/2011 09/21/2016 Cutaneous skin tags 10/12/2011 09/21/20 16 Dermatofibroma of forearm 10/12/2011 Actinic skin damage 10/12/2011 09/21/20 16 Viral warts, unspecified 08/16/200611/2015 Inflamed seborrheic keratosis 08/16/2006 09/19/2012 Contact dermatitis and other eczema, due to unspecified cause 08/16/2006 09/19/2012 XEROSIS 08/16/2006 09/21/2016 ERECTILE DYSFUNCTION 04/06/2006 016 Overview: Adequate response with viagra Anxiety state, unspecified 08/19/2005 1 11/21/2015 Overview: Controlled with effexor Other malaise and fatigue 08/03/2005 Unspecified disorder of prostate 08/03/2005 08/07/2010 Hyperlipidemia 07/30/2015 documented as of this encounter (statuses as of 08/10/2023) [facility] History of Past illness Narrative* Problem Noted Date Diagnosed Date Resolved Date 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 09/21/2016 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 10/12/2011 09/21/2016 Actinic Keratosis (Premalignant AK): R nose 10/12/2011 09/21/2016 Cutaneous skin tags 10/12/2011 09/21/20 16 Dermatofibroma of forearm 10/12/2011 Actinic skin damage 10/12/2011 09/21/20 16 Viral warts, unspecified 08/16/200611/2015 Inflamed seborrheic keratosis 08/16/2006 09/19/2012 Contact dermatitis and other eczema, due to unspecified cause 08/16/2006 09/19/2012 XEROSIS 08/16/2006 09/21/2016 ERECTILE DYSFUNCTION 04/06/2006 016 Overview: Adequate response with viagra Anxiety state, unspecified 08/19/2005 1 11/21/2015 Overview: Controlled with effexor Other malaise and fatigue 08/03/2005 Unspecified disorder of prostate 08/03/2005 08/07/2010 Hyperlipidemia 07/30/2015 documented as of this encounter (statuses as of 08/16/2023) [facility]11-22-2011 History of Past illness Narrative* Problem Noted Date Diagnosed Date Resolved Date 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 09/21/2016 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 10/12/2011 09/21/2016 Actinic Keratosis (Premalignant AK): R nose 10/12/2011 09/21/2016 Cutaneous skin tags 10/12/2011 09/21/20 16 Dermatofibroma of forearm 10/12/2011 Actinic skin damage 10/12/2011 09/21/20 16 Viral warts, unspecified 08/16/200611/2015 Inflamed seborrheic keratosis 08/16/2006 09/19/2012 Contact dermatitis and other eczema, due to unspecified cause 08/16/2006 09/19/2012 XEROSIS 08/16/2006 09/21/2016 ERECTILE DYSFUNCTION 04/06/2006 016 Overview: Adequate response with viagra Anxiety state, unspecified 08/19/2005 1 11/21/2015 Overview: Controlled with effexor Other malaise and fatigue 08/03/2005 Unspecified disorder of prostate 08/03/2005 08/07/2010 Hyperlipidemia 07/30/2015 documented as of this encounter (statuses as of 09/05/2023) [facility]2011 History of Past illness Narrative* Problem Noted Date Diagnosed Date Resolved Date 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 09/21/2016 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 10/12/2011 09/21/2016 Actinic Keratosis (Premalignant AK): R nose 10/12/2011 09/21/2016 Cutaneous skin tags 10/12/2011 09/21/20 16 Dermatofibroma of forearm 10/12/2011 Actinic skin damage 10/12/2011 09/21/20 16 Viral warts, unspecified 08/16/200611/2015 Inflamed seborrheic keratosis 08/16/2006 09/19/2012 Contact dermatitis and other eczema, due to unspecified cause 08/16/2006 09/19/2012 XEROSIS 08/16/2006 09/21/2016 ERECTILE DYSFUNCTION 04/06/2006 016 Overview: Adequate response with viagra Anxiety state, unspecified 08/19/2005 1 11/21/2015 Overview: Controlled with effexor Other malaise and fatigue 08/03/2005 Unspecified disorder of prostate 08/03/2005 08/07/2010 Hyperlipidemia 07/30/2015 documented as of this encounter (statuses as of 09/08/2023) [facility] History of Past illness Narrative* Problem Noted Date Diagnosed Date Resolved Date 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 09/21/2016 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 10/12/2011 09/21/2016 Actinic Keratosis (Premalignant AK): R nose 10/12/2011 09/21/2016 Cutaneous skin tags 10/12/2011 09/21/20 16 Dermatofibroma of forearm 10/12/2011 Actinic skin damage 10/12/2011 09/21/20 16 Viral warts, unspecified 08/16/200611/2015 Inflamed seborrheic keratosis 08/16/2006 09/19/2012 Contact dermatitis and other eczema, due to unspecified cause 08/16/2006 09/19/2012 XEROSIS 08/16/2006 09/21/2016 ERECTILE DYSFUNCTION 04/06/2006 016 Overview: Adequate response with viagra Anxiety state, unspecified 08/19/2005 1 11/21/2015 Overview: Controlled with effexor Other malaise and fatigue 08/03/2005 Unspecified disorder of prostate 08/03/2005 08/07/2010 Hyperlipidemia 07/30/2015 documented as of this encounter (statuses as of 09/09/2023) [facility] History of Past illness Narrative* Problem Noted Date Diagnosed Date Resolved Date 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 09/21/2016 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 10/12/2011 09/21/2016 Actinic Keratosis (Premalignant AK): R nose 10/12/2011 09/21/2016 Cutaneous skin tags 10/12/2011 09/21/20 16 Dermatofibroma of forearm 10/12/2011 Actinic skin damage 10/12/2011 09/21/20 16 Viral warts, unspecified 08/16/200611/2015 Inflamed seborrheic keratosis 08/16/2006 09/19/2012 Contact dermatitis and other eczema, due to unspecified cause 08/16/2006 09/19/2012 XEROSIS 08/16/2006 09/21/2016 ERECTILE DYSFUNCTION 04/06/2006 016 Overview: Adequate response with viagra Anxiety state, unspecified 08/19/200511/21/2015 Overview: Controlled with effexor Other malaise and fatigue 08/03/2005 Unspecified disorder of prostate 08/03/2005 08/07/2010 Hyperlipidemia 07/30/2015 documented as of this encounter (statuses as of 09/15/2023) [facility]2011 History of Past illness Narrative* Problem Noted Date Diagnosed Date Resolved Date 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 09/21/2016 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 10/12/2011 09/21/2016 Actinic Keratosis (Premalignant AK): R nose 10/12/2011 09/21/2016 Cutaneous skin tags 10/12/2011 09/21/20 16 Dermatofibroma of forearm 10/12/2011 Actinic skin damage 10/12/2011 09/21/20 16 Viral warts, unspecified 08/16/200611/2015 Inflamed seborrheic keratosis 08/16/2006 09/19/2012 Contact dermatitis and other eczema, due to unspecified cause 08/16/2006 09/19/2012 XEROSIS 08/16/2006 09/21/2016 ERECTILE DYSFUNCTION 04/06/2006 016 Overview: Adequate response with viagra Anxiety state, unspecified 08/19/2005 1 11/21/2015 Overview: Controlled with effexor Other malaise and fatigue 08/03/2005 Unspecified disorder of prostate 08/03/2005 08/07/2010 Hyperlipidemia 07/30/2015 documented as of this encounter (statuses as of 09/15/2023) [facility] History of Past illness Narrative* Problem Noted Date Diagnosed Date Resolved Date 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 09/21/2016 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 10/12/2011 09/21/2016 Actinic Keratosis (Premalignant AK): R nose 10/12/2011 09/21/2016 Cutaneous skin tags 10/12/2011 09/21/20 16 Dermatofibroma of forearm 10/12/2011 Actinic skin damage 10/12/2011 09/21/20 16 Viral warts, unspecified 08/16/200611/2015 Inflamed seborrheic keratosis 08/16/2006 09/19/2012 Contact dermatitis and other eczema, due to unspecified cause 08/16/2006 09/19/2012 XEROSIS 08/16/2006 09/21/2016 ERECTILE DYSFUNCTION 04/06/2006 016 Overview: Adequate response with viagra Anxiety state, unspecified 08/19/2005 1 11/21/2015 Overview: Controlled with effexor Other malaise and fatigue 08/03/2005 Unspecified disorder of prostate 08/03/2005 08/07/2010 Hyperlipidemia 07/30/2015 documented as of this encounter (statuses as of 09/20/2023) [facility] History of Past illness Narrative* Problem Noted Date Diagnosed Date Resolved Date 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 09/21/2016 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 10/12/2011 09/21/2016 Actinic Keratosis (Premalignant AK): R nose 10/12/2011 09/21/2016 Cutaneous skin tags 10/12/2011 09/21/20 16 Dermatofibroma of forearm 10/12/2011 Actinic skin damage 10/12/2011 09/21/20 16 Viral warts, unspecified 08/16/200611/2015 Inflamed seborrheic keratosis 08/16/2006 09/19/2012 Contact dermatitis and other eczema, due to unspecified cause 08/16/2006 09/19/2012 XEROSIS 08/16/2006 09/21/2016 ERECTILE DYSFUNCTION 04/06/2006 016 Overview: Adequate response with viagra Anxiety state, unspecified 08/19/2005 1 11/21/2015 Overview: Controlled with effexor Other malaise and fatigue 08/03/2005 Unspecified disorder of prostate 08/03/2005 08/07/2010 Hyperlipidemia 07/30/2015 documented as of this encounter (statuses as of 09/27/2023) [facility] History of Past illness Narrative* Problem Noted Date Diagnosed Date Resolved Date 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 09/21/2016 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 10/12/2011 09/21/2016 Actinic Keratosis (Premalignant AK): R nose 10/12/2011 09/21/2016 Cutaneous skin tags 10/12/2011 09/21/20 16 Dermatofibroma of forearm 10/12/2011 Actinic skin damage 10/12/2011 09/21/20 16 Viral warts, unspecified 08/16/200611/2015 Inflamed seborrheic keratosis 08/16/2006 09/19/2012 Contact dermatitis and other eczema, due to unspecified cause 08/16/2006 09/19/2012 XEROSIS 08/16/2006 09/21/2016 ERECTILE DYSFUNCTION 04/06/2006 016 Overview: Adequate response with viagra Anxiety state, unspecified 08/19/200511/21/2015 Overview: Controlled with effexor Other malaise and fatigue 08/03/2005 Unspecified disorder of prostate 08/03/2005 08/07/2010 Hyperlipidemia 07/30/2015 documented as of this encounter (statuses as of 09/27/2023) [facility] History of Past illness Narrative* Problem Noted Date Diagnosed Date Resolved Date 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 09/21/2016 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 10/12/2011 09/21/2016 Actinic Keratosis (Premalignant AK): R nose 10/12/2011 09/21/2016 Cutaneous skin tags 10/12/2011 09/21/20 16 Dermatofibroma of forearm 10/12/2011 Actinic skin damage 10/12/2011 09/21/20 16 Viral warts, unspecified 08/16/200611/2015 Inflamed seborrheic keratosis 08/16/2006 09/19/2012 Contact dermatitis and other eczema, due to unspecified cause 08/16/2006 09/19/2012 XEROSIS 08/16/2006 09/21/2016 ERECTILE DYSFUNCTION 04/06/2006 016 Overview: Adequate response with viagra Anxiety state, unspecified 08/19/200511/2111/21/2015 Overview: Controlled with effexor Other malaise and fatigue 08/03/2005 Unspecified disorder of prostate 08/03/2005 08/07/2010 Hyperlipidemia 07/30/2015 documented as of this encounter (statuses as of 09/29/2023) [facility] note* Diagnosis Controlled type 2 diabetes mellitus without complication, without long-term current use of insulin (HCC)- Primary Bilateral carotid artery stenosis Occlusion and stenosis of carotid artery without mention of cerebral infarction Abdominal aortic aneurysm (AAA) without rupture (HCC) Hyperlipidemia, unspecified hyperlipidemia type CALLI (obstructive sleep apnea) Obstructive sleep apnea (adult) (pediatric) [facility] Diagnosis Pain of toe, unspecified laterality- Primary [facility] Diagnosis Controlled type 2 diabetes mellitus without complication, without long-term current use of insulin (HCC)- Primary [facility] Diagnosis Acute otitis media, right- Primary Unspecified otitis media [facility] Diagnosis Acute otitis externa of right ear, unspecified type- Primary [facility] Diagnosis Pain of toe, unspecified laterality- Primary Controlled type 2 diabetes mellitus without complication, without long-term current use of insulin (HCC) [facility] Diagnosis Controlled type 2 diabetes mellitus without complication, without long-term current use of insulin (HCC)- Primary Mild depressive disorder Cerebrovascular accident (CVA), unspecified mechanism (HCC) Abdominal aortic aneurysm (AAA) without rupture Hyperlipidemia, unspecified hyperlipidemia type Bilateral carotid artery stenosis Occlusion and stenosis of carotid artery without mention of cerebral infarction Need for influenza vaccination Need for prophylactic vaccination and inoculation against influenza Need for vaccination Need for prophylactic vaccination and inoculation against unspecified single disease [facility] Diagnosis CALLI (obstructive sleep apnea)- Primary Obstructive sleep apnea (adult) (pediatric) [facility] Diagnosis Abdominal aortic aneurysm (AAA) without rupture [facility] Diagnosis SOB (shortness of breath)- Primary Shortness of breath CALLI (obstructive sleep apnea) Obstructive sleep apnea (adult) (pediatric) Cough, unspecified type Abdominal aortic aneurysm (AAA) without rupture, unspecified part [facility] Diagnosis SOB (shortness of breath) Shortness of breath [facility] Diagnosis SOB (shortness of breath) Shortness of breath [facility] Diagnosis Lung fibrosis (HCC) Postinflammatory pulmonary fibrosis SOB (shortness of breath) Shortness of breath [facility] Diagnosis CALLI (obstructive sleep apnea) Obstructive sleep apnea (adult) (pediatric) [facility] 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 SOB (shortness of breath) Shortness of breath [facility] Diagnosis At risk for shortness of breath- Primary SOB (shortness of breath) Shortness of breath [facility] Diagnosis Bronchiectasis without complication (HCC)- Primary Bronchiectasis without acute exacerbation CALLI (obstructive sleep apnea) Obstructive sleep apnea (adult) (pediatric) [facility]* Diagnosis Stage 3 severe COPD by GOLD classification ([facility])- Primary Former cigarette smoker Personal history of tobacco use, presenting hazards to health Class 1 obesity due to excess calories with body mass index (BMI) of 33.0 to 33.9 in adult, unspecified whether serious comorbidity present [facility] Diagnosis Stage 3 severe COPD by GOLD classification ([facility])- Primary Mild depressive disorder Bronchiectasis without complication (HCC) Bronchiectasis without acute exacerbation Controlled type 2 diabetes mellitus without complication, without long-term current use of insulin (HCC) [facility] Diagnosis Controlled type 2 diabetes mellitus without complication, without long-term current use of insulin (HCC) [facility] Diagnosis Post-void dribbling- Primary [facility]* Diagnosis Cigarette smoker- Primary Tobacco use disorder [facility] Diagnosis History of stroke with residual effects- Primary Unspecified late effects of cerebrovascular disease Controlled type 2 diabetes mellitus without complication, without long-term current use of insulin (HCC) Altered mental status, unspecified altered mental status type Bilateral carotid artery stenosis Occlusion and stenosis of carotid artery without mention of cerebral infarction Abdominal aortic aneurysm (AAA) without rupture, unspecified part (HCC) Bronchiectasis without complication (HCC) Bronchiectasis without acute exacerbation Stage 3 severe COPD by GOLD classification (HCC) History of diabetes mellitus Personal history of other endocrine, metabolic, and immunity disorders Cerebrovascular accident (CVA), unspecified mechanism (HCC) Infarction of thalamus (HCC) CALLI (obstructive sleep apnea) Obstructive sleep apnea (adult) (pediatric) Lung nodules Other nonspecific abnormal finding of lung field documented in this encounter [facility] note* Diagnosis Moderate COPD (chronic obstructive pulmonary disease) (HCC)- Primary Chronic airway obstruction, not elsewhere classified Former cigarette smoker Personal history of tobacco use, presenting hazards to health documented in this encounter [facility] note* Diagnosis Encounter for screening for lung cancer- Primary Former cigarette smoker Personal history of tobacco use, presenting hazards to health [facility] Diagnosis Abdominal aortic aneurysm (AAA) without rupture, unspecified part (HCC) documented in this encounter [facility] note* Diagnosis Personal history of tobacco use, presenting hazards to health- Primary documented in this encounter [facility] note* Diagnosis Cerebrovascular accident (CVA), unspecified mechanism (HCC)- Primary Controlled type 2 diabetes mellitus without complication, without long-term current use of insulin (HCC) History of diabetes mellitus Personal history of other endocrine, metabolic, and immunity disorders Infarction of thalamus (HCC) Hyperlipidemia, unspecified hyperlipidemia type documented in this encounter [facility] note* Diagnosis Controlled type 2 diabetes mellitus without complication, without long-term current use of insulin (HCC) documented in this encounter [facility] note* Diagnosis Controlled type 2 diabetes mellitus without complication, without long-term current use of insulin (HCC)- Primary documented in this encounter [facility] note* Diagnosis Cerebrovascular accident (CVA), unspecified mechanism (HCC)- Primary documented in this encounter [facility] for referral (narrative)* Diagnostic Procedure Only (Routine) - Closed Specialty Diagnoses / Procedures Referred By Contadriano t Referred To Contact XR IMAGING Diagnoses Pain of toe, unspecified laterality Procedures XR TOE AP/LAT/OBL LEFT RADEX TOE MINIMUM 2 VIEWS Isabela Hernández, 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 [address] [place] [address] Xr Imaging Referral ID Status Reason Start Date Expiration Date V isits Requested Visits Authorized [id number] Closed Auto-Generate d Referral 06/15/2022 07/15/2023 1 1 [facility] for referral (narrative)* Outpatient Procedure (Routine) - Authorized Specialty Diagnoses / Procedures Referred By Contac t Referred To Contact [facility] Diagnoses Bilateral carotid artery stenosis Procedures US CAROTID ARTERIES [facility] DUPLEX SCAN EXTRACRANIAL ART COMPL BI STUDY Lia Markham MD [address] [place] [address] [facility] [address] [place] [address] Referral ID Status Reason Start Date Expiration Date Visits Requested Visits Authorized [id number] Authorized Auto-Generat ed Referral 08/20/2022 08/20/2023 1 1 * Diagnostic Procedure Only (Routine) - Authorized Specialty Diagnoses / Procedures Referred By Contac t Referred To Contact US IMAGING Diagnoses Abdominal aortic aneurysm (AAA) without rupture Procedures US DOPPLER AORTA DUP-SCAN ARTL DANIS ABDL/PEL/SCROT&/RPR ORGN LMT Lia Markham MD [address] [place] [address] Us Imaging Referral ID Status Reason Start Date Expiration Date Visits Requested Visits Authorized [id number] Authorized Auto-Generat ed Referral 08/20/2022 09/19/2023 1 1 * Diagnostic Procedure Only (Routine) - Authorized Specialty Diagnoses / Procedures Referred By Contac t Referred To Contact US IMAGING Diagnoses Abdominal aortic aneurysm (AAA) without rupture Procedures US ABD AORTA US RETROPERITONEAL REAL TIME W/IMAGE LIMITED Lia Markham MD [address] [place] [address] Us Imaging Referral ID Status Reason Start Date Expiration Date Visits Requested Visits Authorized [id number] Authorized Auto-Generat ed Referral 08/20/2022 09/19/2023 1 1 [facility] for referral (narrative)* Diagnostic Procedure Only (Routine) - Closed Specialty Diagnoses / Procedures Referred By Contac t Referred To Contact US IMAGING Diagnoses Abdominal aortic aneurysm (AAA) without rupture Procedures US DOPPLER AORTA DUP-SCAN ARTL DANIS ABDL/PEL/SCROT&/RPR ORGN LMT Lia Markham MD [address] [place] [address] Us Imaging Referral ID Status Reason Start Date Expiration Date V isits Requested Visits Authorized [id number] Closed Auto-Generate d Referral 08/20/2022 09/19/2023 1 1 * Diagnostic Procedure Only (Routine) - Closed Specialty Diagnoses / Procedures Referred By Contac t Referred To Contact US IMAGING Diagnoses Abdominal aortic aneurysm (AAA) without rupture Procedures US ABD AORTA US RETROPERITONEAL REAL TIME W/IMAGE LIMITED Lia Markham MD [address] [place] [address] Us Imaging Referral ID Status Reason Start Date Expiration Date V isits Requested Visits Authorized [id number] Closed Auto-Generate d Referral 08/20/2022 09/19/2023 1 1 [facility] for referral (narrative)* Outpatient Procedure (Routine) - Authorized Specialty Diagnoses / Procedures Referred By Contac t Referred To Contact [facility] Diagnoses SOB (shortness of breath) Procedures SPIROMETRY WITH DILATOR IF OBSTRUCTED BRNCDILAT RSPSE SPMTRY PRE&POST-BRNCDILAT ADMN Lia Markham MD [address] [place] [address] [facility] [place] [address] [place] [address] Referral ID Status Reason Start Date Expiration Date Visits Requested Visits Authorized [id number] Authorized Auto-Generat ed Referral 2 10/03/2023 1 1 * Outpatient Procedure (Routine) - Authorized Specialty Diagnoses / Procedures Referred By Contac t Referred To [facility] [place] Diagnoses SOB (shortness of breath) Procedures LUNG DIFFUSION CAPACITY (DLCO) DIFFUSING CAPACITY Lia Markham MD [address] [place] [address] [address] Referral ID Status Reason Start Date Expiration Date Visits Requested Visits Authorized [id number] Authorized Auto-Generat ed Referral 2 10/03/2023 1 1 * Outpatient Procedure (Routine) - Authorized Specialty Diagnoses / Procedures Referred By Contac t Referred To [facility] [place] Diagnoses SOB (shortness of breath) Procedures LUNG VOLUMES Lia Markham MD [address] [place] [address] [address] Referral ID Status Reason Start Date Expiration Date Visits Requested Visits Authorized [id number] Authorized Auto-Generat ed Referral 2 10/03/2023 1 1 * Outpatient Procedure (Routine) - Authorized Specialty Diagnoses / Procedures Referred By Contac t Referred To [facility] Diagnoses SOB (shortness of breath) Procedures ECG COMPLETE ECG ROUTINE ECG W/LEAST 12 LDS W/I&R Lia Markham MD [address] [place] [address] [facility] [address] [address] Referral ID Status Reason Start Date Expiration Date Visits Requested Visits Authorized [id number] Authorized Auto-Generat ed Referral 2 09/03/2023 1 1 [facility] for referral (narrative)* Diagnostic Procedure Only (Routine) - Authorized Specialty Diagnoses / Procedures Referred By Contac t Referred To Contact US IMAGING Diagnoses Abdominal aortic aneurysm (AAA) without rupture, unspecified part (HCC) Procedures US DOPPLER AORTA DUP-SCAN ARTL DANIS ABDL/PEL/SCROT&/RPR ORGN LMT Lia Markham MD [address] [place] [address] [facility] Imaging [id number] Referral ID Status Reason Start Date Expiration Date Visits Requested Visits Authorized [id number] Authorized Auto-Generat ed Referral 3 10/13/2024 1 1 * Diagnostic Procedure Only (Routine) - Authorized Specialty Diagnoses / Procedures [facility] Diagnoses Abdominal aortic aneurysm (AAA) without rupture, unspecified part (HCC) Procedures US ABD AORTA US RETROPERITONEAL REAL TIME W/IMAGE LIMITED Lia Markham MD [address] [place], [place] [id number] Us Imaging [id number] Referral ID Status Reason Start Date Expiration Date Visits Requested Visits Authorized [id number] Authorized Auto-Generat ed Referral 3 10/13/2024 1 1 * Consult, Test, Treat (Routine) - Authorized Specialty Diagnoses / Procedures [facility] Neurology Diagnoses Cerebrovascular accident (CVA), unspecified mechanism (HCC) Infarction of thalamus (HCC) Procedures CONSULT TO NEUROLOGY OFFICE/OUTPATIENT [facility] 60-74 MINUTES Lia Markham MD [address] [place] [id number] Referral ID Status Reason Start Date Expiration Date Visits Requested Visits Authorized [id number] Authorized PCP Requested Referral 3 09/13/2024 1 1 * Occupational Therapy (Routine) - Authorized Specialty Diagnoses / Procedures Referred By Contac t Referred To Contact [facility] Diagnoses History of stroke with residual effects Procedures CONSULT TO DIRECTOR OF INDUSTRIAL RELATIONS OCCUPATIONAL THERAPY EVAL HIGH COMPLEX 60 MINS Lia Markham MD [address] [place] [address] [address] Referral ID Status Reason Start Date Expiration Date Visits Requested Visits Authorized [id number] Authorized PCP Requested Referral Auto-Generate d Referral 3 09/13/2024 99 99 * Speech Therapy (Routine) - Authorized Specialty Diagnoses / Procedures Referred By Starr t Referred To Contact [facility] Diagnoses History of stroke with residual effects Procedures CONSULT TO SPEECH THERAPY OFFICE/[facility]IENT [facility] MDM 60-74 MINUTES Lia Markham MD [address] [place] [address] [address] Referral ID Status Reason Start Date Expiration Date Visits Requested Visits Authorized [id number] Authorized Auto-Generat ed Referral 3 09/13/2024 99 99 * Physical Therapy (Routine) - Authorized Specialty Diagnoses / Procedures Referred By Starr yung Referred To Contact [facility] Diagnoses History of stroke with residual effects Procedures CONSULT TO PHYSICAL THERAPY PHYSICAL THERAPY EVALUATION HIGH COMPLEX 45 MINS Lia Markham MD [address] [place] [address] [address] Referral ID Status Reason Start Date Expiration Date Visits Requested Visits Authorized [id number] Authorized PCP Requested Referral Auto-Generate d Referral 3 09/13/2024 99 99 [facility] for referral (narrative)* Diagnostic Procedure Only (Routine) - Closed Specialty Diagnoses / Procedures Referred By Starr t Referred To Contact US IMAGING Diagnoses Abdominal aortic aneurysm (AAA) without rupture, unspecified part (HCC) Procedures US DOPPLER AORTA DUP-SCAN ARTL DANIS ABDL/PEL/SCROT&/RPR ORGN LMT Lia Markham MD [address] [place] [address] [place] [address] Referral ID Status Reason Start Date Expiration Date V isits Requested Visits Authorized [id number] Closed Auto-Generate d Referral 09/14/2023 10/13/2024 1 1 * Diagnostic Procedure Only (Routine) - Closed Specialty Diagnoses / Procedures Referred By Starr t Referred To Contact US IMAGING Diagnoses Abdominal aortic aneurysm (AAA) without rupture, unspecified part (HCC) Procedures US ABD AORTA US RETROPERITONEAL REAL TIME W/IMAGE LIMITED Lia Markham MD [address] [place] [address] [place] [id number] Referral ID Status Reason Start Date Expiration Date V isits Requested Visits Authorized [id number] Closed Auto-Generate d Referral 09/14/2023 10/13/2024 1 1 [facility] Advance Directives No Advanced Directives Records FoundDocuments on File Type Date Recorded 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 Advance Directive(s) 10/06/2021 6:19 AM Advance Directive(s) 09/15/2021 10:31 AM Advance Directive(s) 06/06/2017 8:13 AM Documents on File Type Date Recorded 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 Advance Directive(s) 10/06/2021 6:19 AM Advance Directive(s) 09/15/2021 10:31 AM Advance Directive(s) 06/06/2017 8:13 AM Health Concerns Infection Onset Date Last Indicated Resolved Time COVID-19 Rule-Out 01/05/2022 01/05/2022 01/06/2022 6:08 AM EST COVID-19 Rule-Out 01/08/2022 01/08/2022 01/09/2022 6:02 AM EST Reason for Referral Specialty Diagnoses / Procedures Referred By Contac t Referred To Contact Podiatry Diagnoses Pain of toe, unspecified laterality Procedures CONSULT TO PODIATRY OFFICE/OUTPATIENT [facility] 60-[place] [address] [place] [address] Referral ID Status Reason Start Date Expiration Date Visits Requested Visits Authorized [id number] Authorized PCP Requested Referral 06/25/2022 06/25/2023 1 1 Specialty Diagnoses / Procedures Referred By Contac t Referred To Contact CT IMAGING Diagnoses Lung fibrosis (HCC) SOB (shortness of breath) Procedures CT CHEST WO IVCON DIAGNOSTIC COMPUTED TOMOGRAPHY THORAX W/O CNTRST Lia Markham MD [address] [place] [address] [address] [facility] Referral ID Status Reason Start Date Expiration Date V isits Requested Visits Authorized [id number] Closed Auto-Generate d Referral 09/03/2022 10/03/2023 1 1 Specialty Diagnoses / Procedures Referred By Contac t Referred To Contact Pulmonary and Critical Care Medicine Diagnoses SOB (shortness of breath) Procedures CONSULT TO PULM/CRITICAL CARE OFFICE/OUTPATIENT [facility] 60-74 MINUTES Lia Markham MD [address] [place] [address] Referral ID Status Reason Start Date Expiration Date Visits Requested Visits Authorized [id number] Authorized PCP Requested Referral 09/07/2023 1 1 Specialty Diagnoses / Procedures Referred By Contac t Referred To Contact Urology Diagnoses Post-void dribbling Procedures CONSULT TO UROLOGY Lia Markham MD [address] [place] [phone] Referral ID Status Reason Start Date Expiration Date Visits Requested Visits Authorized [id number] Ref Not Required PCP Requested Referral 02/11/2023 02/11/2024 1 1 Specialty Diagnoses / Procedures Referred By Contac t Referred To Contact CT IMAGING Diagnoses Former cigarette smoker Procedures CT LUNG SCREEN WO IVCON COMPUTED TOMOGRAPHY THORAX LW DOSE LNG CA SCR C- Andres 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, 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 [address] [place] [address] Ct Imaging [id number] Referral ID Status Reason Start Date Expiration Date Visits Requested Visits Authorized [id number] Authorized Auto-Generat ed Referral 3 10/19/2024 1 1 Specialty Diagnoses / Procedures Referred By Starr yung Referred To Contact CT IMAGING Diagnoses Personal history of tobacco use, presenting hazards to health Procedures CT LUNG SCREEN WO IVCON COMPUTED TOMOGRAPHY THORAX LW DOSE LNG CA SCR Nikia- Angeles Lopez, 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 [address] [place] [id number] Ct Imaging [id number] Referral ID Status Reason Start Date Expiration Date Visits Requested Visits Authorized [id number] Pending Review Auto-Generat ed Referral 09/29/2023 10/28/2024 1 1 Summary Purpose Family History No Family History Records Found Additional Source Comments Source Comments (unrecognize d section and content) In the event this informatio n is protected by the Federal Confidentiality of Alcohol and Drug Abuse Patient Records regulations: The Federal rules restrict any use of the information to criminally investigate or prosecute any alcohol or drug abuse patient.[facility] the event this information is protected by the Federal Confidentiality of Alcohol and Drug Abuse Patient Records regulations: The Federal rules restrict any use of the information to criminally investigate or prosecute any alcohol or drug abuse patient.[facility] Center[facility] the event this information is protected by the Federal Confidentiality of Alcohol and Drug Abuse Patient Records regulations: The Federal rules restrict any use of the information to criminally investigate or prosecute any alcohol or drug abuse patient.[facility] Center[facility] the event this information is protected by the Federal Confidentiality of Alcohol and Drug Abuse Patient Records regulations: The Federal rules restrict any use of the information to criminally investigate or prosecute any alcohol or drug abuse patient.[facility] Center[facility] the event this information is protected by the Federal Confidentiality of Alcohol and Drug Abuse Patient Records regulations: The Federal rules restrict any use of the information to criminally investigate or prosecute any alcohol or drug abuse patient.[facility] Center[facility] the event this information is protected by the Federal Confidentiality of Alcohol and Drug Abuse Patient Records regulations: The Federal rules restrict any use of the information to criminally investigate or prosecute any alcohol or drug abuse patient.[facility] CenterIn the event this information is protected by the Federal Confidentiality of Alcohol and Drug Abuse Patient Records regulations: The Federal rules restrict any use of the information to criminally investigate or prosecute any alcohol or drug abuse patient.[facility] CenterIn the event this information is protected by the Federal Confidentiality of Alcohol and Drug Abuse Patient Records regulations: The Federal rules restrict any use of the information to criminally investigate or prosecute any alcohol or drug abuse patient.[facility] CenterIn the event this information is protected by the Federal Confidentiality of Alcohol and Drug Abuse Patient Records regulations: The Federal rules restrict any use of the information to criminally investigate or prosecute any alcohol or drug abuse patient.[facility] CenterIn the event this information is protected by the Federal Confidentiality of Alcohol and Drug Abuse Patient Records regulations: The Federal rules restrict any use of the information to criminally investigate or prosecute any alcohol or drug abuse patient.[facility] CenterIn the event this information is protected by the Federal Confidentiality of Alcohol and Drug Abuse Patient Records regulations: The Federal rules restrict any use of the information to criminally investigate or prosecute any alcohol or drug abuse patient.[facility] CenterIn the event this information is protected by the Federal Confidentiality of Alcohol and Drug Abuse Patient Records regulations: The Federal rules restrict any use of the information to criminally investigate or prosecute any alcohol or drug abuse patient.[facility] CenterIn the event this information is protected by the Federal Confidentiality of Alcohol and Drug Abuse Patient Records regulations: The Federal rules restrict any use of the information to criminally investigate or prosecute any alcohol or drug abuse patient.[facility] CenterIn the event this information is protected by the Federal Confidentiality of Alcohol and Drug Abuse Patient Records regulations: The Federal rules restrict any use of the information to criminally investigate or prosecute any alcohol or drug abuse patient.[facility] CenterIn the event this information is protected by the Federal Confidentiality of Alcohol and Drug Abuse Patient Records regulations: The Federal rules restrict any use of the information to criminally investigate or prosecute any alcohol or drug abuse patient.[facility] CenterIn the event this information is protected by the Federal Confidentiality of Alcohol and Drug Abuse Patient Records regulations: The Federal rules restrict any use of the information to criminally investigate or prosecute any alcohol or drug abuse patient.[facility] CenterIn the event this information is protected by the Federal Confidentiality of Alcohol and Drug Abuse Patient Records regulations: The Federal rules restrict any use of the information to criminally investigate or prosecute any alcohol or drug abuse patient.[facility] CenterIn the event this information is protected by the Federal Confidentiality of Alcohol and Drug Abuse Patient Records regulations: The Federal rules restrict any use of the information to criminally investigate or prosecute any alcohol or drug abuse patient.[facility] CenterIn the event this information is protected by the Federal Confidentiality of Alcohol and Drug Abuse Patient Records regulations: The Federal rules restrict any use of the information to criminally investigate or prosecute any alcohol or drug abuse patient.[facility] CenterIn the event this information is protected by the Federal Confidentiality of Alcohol and Drug Abuse Patient Records regulations: The Federal rules restrict any use of the information to criminally investigate or prosecute any alcohol or drug abuse patient.[facility] CenterIn the event this information is protected by the Federal Confidentiality of Alcohol and Drug Abuse Patient Records regulations: The Federal rules restrict any use of the information to criminally investigate or prosecute any alcohol or drug abuse patient.[facility] CenterIn the event this information is protected by the Federal Confidentiality of Alcohol and Drug Abuse Patient Records regulations: The Federal rules restrict any use of the information to criminally investigate or prosecute any alcohol or drug abuse patient.[facility] CenterIn the event this information is protected by the Federal Confidentiality of Alcohol and Drug Abuse Patient Records regulations: The Federal rules restrict any use of the information to criminally investigate or prosecute any alcohol or drug abuse patient.[facility] CenterIn the event this information is protected by the Federal Confidentiality of Alcohol and Drug Abuse Patient Records regulations: The Federal rules restrict any use of the information to criminally investigate or prosecute any alcohol or drug abuse patient.[facility] CenterIn the event this information is protected by the Federal Confidentiality of Alcohol and Drug Abuse Patient Records regulations: The Federal rules restrict any use of the information to criminally investigate or prosecute any alcohol or drug abuse patient.[facility] CenterIn the event this information is protected by the Federal Confidentiality of Alcohol and Drug Abuse Patient Records regulations: The Federal rules restrict any use of the information to criminally investigate or prosecute any alcohol or drug abuse patient.[facility] CenterIn the event this information is protected by the Federal Confidentiality of Alcohol and Drug Abuse Patient Records regulations: The Federal rules restrict any use of the information to criminally investigate or prosecute any alcohol or drug abuse patient.[facility] CenterIn the event this information is protected by the Federal Confidentiality of Alcohol and Drug Abuse Patient Records regulations: The Federal rules restrict any use of the information to criminally investigate or prosecute any alcohol or drug abuse patient.[facility] CenterIn the event this information is protected by the Federal Confidentiality of Alcohol and Drug Abuse Patient Records regulations: The Federal rules restrict any use of the information to criminally investigate or prosecute any alcohol or drug abuse patient.[facility] CenterIn the event this information is protected by the Federal Confidentiality of Alcohol and Drug Abuse Patient Records regulations: The Federal rules restrict any use of the information to criminally investigate or prosecute any alcohol or drug abuse patient.[facility] CenterIn the event this information is protected by the Federal Confidentiality of Alcohol and Drug Abuse Patient Records regulations: The Federal rules restrict any use of the information to criminally investigate or prosecute any alcohol or drug abuse patient.[facility] CenterIn the event this information is protected by the Federal Confidentiality of Alcohol and Drug Abuse Patient Records regulations: The Federal rules restrict any use of the information to criminally investigate or prosecute any alcohol or drug abuse patient.[facility] CenterIn the event this information is protected by the Federal Confidentiality of Alcohol and Drug Abuse Patient Records regulations: The Federal rules restrict any use of the information to criminally investigate or prosecute any alcohol or drug abuse patient.[facility] CenterIn the event this information is protected by the Federal Confidentiality of Alcohol and Drug Abuse Patient Records regulations: The Federal rules restrict any use of the information to criminally investigate or prosecute any alcohol or drug abuse patient.[facility] CenterIn the event this information is protected by the Federal Confidentiality of Alcohol and Drug Abuse Patient Records regulations: The Federal rules restrict any use of the information to criminally investigate or prosecute any alcohol or drug abuse patient.[facility] CenterIn the event this information is protected by the Federal Confidentiality of Alcohol and Drug Abuse Patient Records regulations: The Federal rules restrict any use of the information to criminally investigate or prosecute any alcohol or drug abuse patient.[facility] CenterIn the event this information is protected by the Federal Confidentiality of Alcohol and Drug Abuse Patient Records regulations: The Federal rules restrict any use of the information to criminally investigate or prosecute any alcohol or drug abuse patient.[facility] CenterIn the event this information is protected by the Federal Confidentiality of Alcohol and Drug Abuse Patient Records regulations: The Federal rules restrict any use of the information to criminally investigate or prosecute any alcohol or drug abuse patient.[facility] CenterIn the event this information is protected by the Federal Confidentiality of Alcohol and Drug Abuse Patient Records regulations: The Federal rules restrict any use of the information to criminally investigate or prosecute any alcohol or drug abuse patient.[facility] CenterIn the event this information is protected by the Federal Confidentiality of Alcohol and Drug Abuse Patient Records regulations: The Federal rules restrict any use of the information to criminally investigate or prosecute any alcohol or drug abuse patient.[facility] CenterIn the event this information is protected by the Federal Confidentiality of Alcohol and Drug Abuse Patient Records regulations: The Federal rules restrict any use of the information to criminally investigate or prosecute any alcohol or drug abuse patient.[facility] CenterIn the event this information is protected by the Federal Confidentiality of Alcohol and Drug Abuse Patient Records regulations: The Federal rules restrict any use of the information to criminally investigate or prosecute any alcohol or drug abuse patient.[facility] CenterIn the event this information is protected by the Federal Confidentiality of Alcohol and Drug Abuse Patient Records regulations: The Federal rules restrict any use of the information to criminally investigate or prosecute any alcohol or drug abuse patient.[facility] CenterIn the event this information is protected by the Federal Confidentiality of Alcohol and Drug Abuse Patient Records regulations: The Federal rules restrict any use of the information to criminally investigate or prosecute any alcohol or drug abuse patient.[facility] CenterIn the event this information is protected by the Federal Confidentiality of Alcohol and Drug Abuse Patient Records regulations: The Federal rules restrict any use of the information to criminally investigate or prosecute any alcohol or drug abuse patient.[facility] CenterIn the event this information is protected by the Federal Confidentiality of Alcohol and Drug Abuse Patient Records regulations: The Federal rules restrict any use of the information to criminally investigate or prosecute any alcohol or drug abuse patient.[facility] CenterIn the event this information is protected by the Federal Confidentiality of Alcohol and Drug Abuse Patient Records regulations: The Federal rules restrict any use of the information to criminally investigate or prosecute any alcohol or drug abuse patient.[facility] CenterIn the event this information is protected by the Federal Confidentiality of Alcohol and Drug Abuse Patient Records regulations: The Federal rules restrict any use of the information to criminally investigate or prosecute any alcohol or drug abuse patient.[facility] CenterIn the event this information is protected by the Federal Confidentiality of Alcohol and Drug Abuse Patient Records regulations: The Federal rules restrict any use of the information to criminally investigate or prosecute any alcohol or drug abuse patient.[facility] CenterIn the event this information is protected by the Federal Confidentiality of Alcohol and Drug Abuse Patient Records regulations: The Federal rules restrict any use of the information to criminally investigate or prosecute any alcohol or drug abuse patient.[facility] CenterIn the event this information is protected by the Federal Confidentiality of Alcohol and Drug Abuse Patient Records regulations: The Federal rules restrict any use of the information to criminally investigate or prosecute any alcohol or drug abuse patient.[facility] CenterIn the event this information is protected by the Federal Confidentiality of Alcohol and Drug Abuse Patient Records regulations: The Federal rules restrict any use of the information to criminally investigate or prosecute any alcohol or drug abuse patient.[facility] CenterIn the event this information is protected by the Federal Confidentiality of Alcohol and Drug Abuse Patient Records regulations: The Federal rules restrict any use of the information to criminally investigate or prosecute any alcohol or drug abuse patient.[facility] CenterIn the event this information is protected by the Federal Confidentiality of Alcohol and Drug Abuse Patient Records regulations: The Federal rules restrict any use of the information to criminally investigate or prosecute any alcohol or drug abuse patient.[facility] CenterIn the event this information is protected by the Federal Confidentiality of Alcohol and Drug Abuse Patient Records regulations: The Federal rules restrict any use of the information to criminally investigate or prosecute any alcohol or drug abuse patient.[facility] CenterIn the event this information is protected by the Federal Confidentiality of Alcohol and Drug Abuse Patient Records regulations: The Federal rules restrict any use of the information to criminally investigate or prosecute any alcohol or drug abuse patient.[facility] CenterIn the event this information is protected by the Federal Confidentiality of Alcohol and Drug Abuse Patient Records regulations: The Federal rules restrict any use of the information to criminally investigate or prosecute any alcohol or drug abuse patient.[facility] CenterIn the event this information is protected by the Federal Confidentiality of Alcohol and Drug Abuse Patient Records regulations: The Federal rules restrict any use of the information to criminally investigate or prosecute any alcohol or drug abuse patient.[facility] Reason for Visit (unrecogniz ed section and content) Reason Comments Opened In Error Reason Comments Forms Reason Comments Acute Visit pain R great toe x c ouple weeks; no redness/swelling Reason Comments Results Reason Comments Ear Pain R ear x2 days Reason Comments Ear Infection Reason Onset Date Comments Diabetes Immunizations 08/20/2022 Flu vaccination Reason Comments Radiology US Specialty Diagnoses / Procedures Referred By Contac t Referred To Contact US IMAGING Diagnoses Abdominal aortic aneurysm (AAA) without rupture Procedures US ABD AORTA US RETROPERITONEAL REAL TIME W/IMAGE LIMITED Lia Markham MD [address] [place] [address] Us Imaging Referral ID Status Reason Start Date Expiration Date V isits Requested Visits Authorized [id number] Closed Auto-Generate d Referral 08/20/2022 09/19/2023 1 1 Reason Comments Breathing Problem Reason Comments Shortness of Breath SOB on exertion X 1 yr Reason Comments Spirometry Specialty Diagnoses / Procedures Referred By Contac t [facility]erred [facility] Diagnoses SOB (shortness of breath) Procedures SPIROMETRY WITH DILATOR IF OBSTRUCTED BRNCDILAT RSPSE SPMTRY PRE&POST-BRNCDILAT ADMN Lia Markham, MD [address] [place] [address] [facility] [address] [place] [id number] Referral ID Status Reason Start Date Expiration Date V isits Requested Visits Authorized [id number] Closed Auto-Generate d Referral 09/03/2022 10/03/2023 1 1 Specialty Diagnoses / Procedures Referred By Contac t Referred To Contact [facility] Diagnoses SOB (shortness of breath) Procedures LUNG VOLUMES Lia Markham MD [address] [place] [address] [facility] [address] [place] [id number] Referral ID Status Reason Start Date Expiration Date V isits Requested Visits Authorized [id number] Closed Auto-Generate d Referral 09/03/2022 10/03/2023 [address] Specialty Diagnoses / Procedures Referred By Contac t Referred To Contact CT IMAGING Diagnoses Lung fibrosis (HCC) SOB (shortness of breath) Procedures CT CHEST WO IVCON DIAGNOSTIC COMPUTED TOMOGRAPHY THORAX W/O CNTRST Lia Markham MD [address] [place] [address] Ct Imaging Referral ID Status Reason Start Date Expiration Date V isits Requested Visits Authorized [id number] Closed Auto-Generate d Referral 09/03/2022 10/03/2023 1 1 Reason Comments Results Reason Comments Consult Reason Comments fax request Reason Comments New Patient Dyspnea Shortness of Breath Specialty Diagnoses / Procedures Referred By Contac t Referred To Contact Pulmonary and Critical Care Medicine Diagnoses SOB (shortness of breath) Procedures CONSULT TO PULM/CRITICAL CARE OFFICE/OUTPATIENT NEW HIGH MDM 60-74 MINUTES Lia Markham MD [address] [place] [address] Referral ID Status Reason Start Date Expiration Date V isits Requested Visits Authorized [id number] Closed PCP Requested Referral 09/07/2022 09/07/2023 1 1 Reason Comments Follow Up Reason Onset Date Comments Refill Request 02/11/2023 Referral Request 02/11/2023 urology Reason Comments Hospital F/U Reason Comments COPD Reason Comments Lung cancer screening program Specialty Diagnoses / Procedures Referred By Starr t Referred To Contact US IMAGING Diagnoses Abdominal aortic aneurysm (AAA) without rupture, unspecified part (HCC) Procedures US ABD AORTA US RETROPERITONEAL REAL TIME W/IMAGE LIMITED Lia Markham MD [address] [place] [address] [place] [address] Referral ID Status Reason Start Date Expiration Date V isits Requested Visits Authorized [id number] Closed Auto-Generate d Referral 09/14/2023 10/13/2024 1 1 Reason Comments Patient Update Care Teams (unrecognized sec tion and content) 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 Start Date End Date Lia Markham MD [address] [place] [id number] PCP - General Family Practice 09/27/12 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 Start Date End Date Lia Markham MD [address] [place] [id number] PCP - General Family Practice 09/27/12 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 Start Date End Date Lia Markham MD [address] [place] [address] PCP - General Family Practice 09/27/12 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 Start Date End Date Lia Markham MD [address] [place] [address] PCP - General Family Practice 09/27/12 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 Start Date End Date Lia Markham MD [address] [place] [address] PCP - General Family Practice 09/27/12 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 Start Date End Date Lia Markham MD [address] [place] [id number] PCP - General Family Practice 09/27/12 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 Start Date End Date Lia Markham MD [address] [place] [id number] PCP - General Family Practice 09/27/12 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 Start Date End Date Lia Markham MD [address] [facility] [place] [address] PCP - General Family Practice 09/27/12 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 Start Date End Date Lia Markham MD [address] [facility] [place] [address] PCP - General Family Practice 09/27/12 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 Start Date End Date Lia Markham MD [address] [facility] [place] [address] PCP - General Family Medicine 09/27/12 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 Start Date End Date Lia Markham MD [address] [facility] [place] [address] PCP - General Family Medicine 09/27/12 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 Start Date End Date Lia Markham MD [address] [facility] [place] [address] PCP - General Family Medicine 09/27/12 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 Start Date End Date Lia Markham MD [address] [facility] [place] [address] PCP - General Family Medicine 09/27/12 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 Start Date End Date Lia Markham MD [address] [facility] [place] [address] PCP - General Family Medicine 09/27/12 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 Start Date End Date Lia Markham MD [address] [facility] [place] [address] PCP - General Family Medicine 09/27/12 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 Start Date End Date Lia Markham MD [address] [facility] [place] [address] PCP - General Family Medicine 09/27/12 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 Start Date End Date Lia Markham MD [address] [facility] [place] [address] PCP - General Family Medicine 09/27/12 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 Start Date End Date Lia Markham MD [address] [facility] [place] [address] PCP - General Family Medicine 09/27/12 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 Start Date End Date Lia Markham MD [address] [place] [address], [place] [address] PCP - General Family Medicine 09/27/12 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 Start Date End Date Lia Markham MD [address] [place] [address], [place] [address] PCP - General Family Medicine 09/27/12 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 [place] [address] [place] [address], [place] [address] PCP - General Family Medicine 09/27/12 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 Start Date End Date Lia Markham MD [address] [place] [address], [place] [address] PCP - General Family Medicine 09/27/12 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 Start Date End Date Lia Markham MD [address] [facility] [place] [address] PCP - General Family Medicine 09/27/12 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 Start Date End Date Lia Markham MD [address] [place] [address], [place] [address] PCP - General Family Medicine 09/27/12 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 Start Date End Date Lia Markham MD [address] [place] [address] PCP - General Family Medicine 09/27/12 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 Start Date End Date Lia Markham MD [address] [place] [address] PCP - General Family Medicine 09/27/12 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 Start Date End Date Lia Markham MD [address] [place] [address] PCP - General Family Medicine 09/27/12 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 Start Date End Date Lia Markham MD [address] [place] [address] PCP - General Family Medicine 09/27/12 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 Start Date End Date Lia Markham MD [address] [place] [address] PCP - General Family Medicine 09/27/12 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 Start Date End Date Lia Markham MD [address] [place] [address] PCP - General Family Medicine 09/27/12 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 Start Date End Date Lia Markham MD [address] [place] [address] PCP - General Family Medicine 09/27/12 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 Start Date End Date Lia Markham MD [address] [place] [address] PCP - General Family Medicine 09/27/12 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 Start Date End Date Lia Markham MD [address] [place] [address] PCP - General Family Medicine 09/27/12 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 Start Date End Date Lia Markham MD [address] [place] [address] PCP - General Family Medicine 09/27/12 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 Start Date End Date Lia Markham MD [address] [place] [address] PCP - General Family Medicine 09/27/12 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 Start Date End Date Lia Markham MD [address] [place] [address] PCP - General Family Medicine 09/27/12 Carly Banks MD [address] [place] [address] Pulmonary and Critical Care Medicine 09/20/23 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 Start Date End Date Lia Markham MD [address] [place] [address] PCP - General Family Medicine 09/27/12 Carly Banks MD [address] [place] [address] Pulmonary and Critical Care Medicine 09/20/23 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 Start Date End Date Lia Markham MD [address] [place] [address] PCP - General Family Medicine 09/27/12 Carly Banks MD [address] [place] [address] Pulmonary and Critical Care Medicine 09/20/23 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 Start Date End Date Lia Markham MD [address] [place] [address] PCP - General Family Medicine 09/27/12 Carly Banks MD [address] [place] [address] Pulmonary and Critical Care Medicine 09/20/23 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 Start Date End Date Lia Markham MD [address] [place] [address] PCP - General Family Medicine 09/27/12 Carly Banks MD [address] [place] [address] Pulmonary and Critical Care Medicine 09/20/23 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 Start Date End Date Lia Markham MD [address] [place] [address] PCP - General Family Medicine 09/27/12 Carly Banks MD [address] [place] [address] Pulmonary and Critical Care Medicine 09/20/23 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 Start Date End Date Lia Markham MD [address] [place] [address] PCP - General Family Medicine 09/27/12 Carly Banks MD [address] [place] [address] Pulmonary and Critical Care Medicine 09/20/23 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 Start Date End Date Lia Markham MD [address] [place] [address] PCP - General Family [facility] 09/27/12 Carly Banks MD [address] [place] [address] Pulmonary and Critical Care Medicine 09/20/23 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 This clinical summary was aggregated from multiple sources. Caution should be exercised in using it in the provision of clinical care. This summary normalizes information from multiple sources, and as a consequence, information in this document may materially change the coding, format and clinical context of patient data. In addition, data may be omitted in some cases. CLINICAL DECISIONS SHOULD BE BASED ON THE PRIMARY CLINICAL RECORDS. [employer] provides no warranty or guarantee of the accuracy or completeness of information in this document.
== END | disposition home or self-care (01) ==
LOC: RAD 12:44
PROVIDERS: PCP Family Medicine; Referring Provider Internal Medicine Gastroenterology; Visit Provider Internal Medicine Gastroenterology
DX: K31.84 Gastroparesis (principal)
CPT/HCPCS: 74018

== ENCOUNTER → 2023-12-08 | Outpatient (CLI) | payer MEDICARE, OTHER, SELFPAY ==
--- NOTE | 2023-12-08 12:46 | NM_ITS ---
CLINICAL: 68-year-old insulin-dependent diabetic male with clinical history of gastroparesis. SEMI-SOLID PHASE 99m Tc SULFUR COLLOID GASTRIC EMPTYING STUDY COMPARISON: None available FINDINGS: The patient was administered 1.0 mCi of 99m Tc sulfur colloid mixed with oatmeal and consumed per os. Image acquisitions in the anterior-posterior projections were obtained for 60 minutes. There is prompt visualization of the stomach. There is no gastroesophageal reflux identified. First order kinetics are maintained throughout the duration of the acquisitions. The T ? linear fit was extrapolated to be 69.29 minutes, (Normal: 12-56 minutes). NM/Gastric Emptying Study IMPRESSION: 1. ABNORMAL 99m Tc sulfur colloid semi-solid phase (oatmeal) gastric emptying imaging examination. A. There is delayed semi-solid phase gastric emptying compared to normal controls with maintained first order kinetics throughout all components of the examination. (Erlin et al, J Nucl Med Tech 38: 186, 2010). Electronically Signed: Bonifacio Diop DO at 9:52 EST ,
--- OUTSIDE RECORDS SUMMARY | 2023-12-08 13:11 | XMS RPT_ITS | CCD ---
Author Name Unknown Address [address] [place] [address] Organization [facility] Care Team Providers Care 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 Name Role Phone Shahrzad LAMBERT, Lia Babin Primary Care Provider Lia Markham MD Primary Care Provider [phone] Carly Banks MD Unavailable LIA MARKHAM Referring [...] metFORMIN; Translations: [METFORMIN] Drug Allergy 06-29-2011 Diarrhea [facility] Work Phone: (5 sources) Penicillins; Translations: [PENICILLINS] Propensity to adverse reactions 07-15-2005 [facility] Work Phone: (20 sources) Penicillins Propensity to adverse reactions 07-15-2005 [facility] Work Phone: Medications Current Medications Medication Drug [...] 182.2 cm Lia Markham MD Work Phone: [facility] 10-05-2023 11:42-0500 Body weight 102.88 kg Lia Markham MD Work Phone: [facility] 10-05-2023 11:42-0500 Diastolic blood pressure 66 mm[Hg] Lia Markham MD Work Phone: [facility] 10-05-2023 11:42-0500 Heart rate 96 /min Lia Markham MD Work Phone: [facility] 10-05-2023 11:42-0500 Systolic blood pressure 102 mm[Hg] Lia Markham MD Work Phone: [facility] 09-20-2023 10:36-0400 Body weight 102.06 kg Andres Dotson APRN.CNP Work Phone: [facility] 09-20-2023 10:36-0400 Diastolic blood pressure 82 mm[Hg] Andres Fairdale ESTIMATOR PRINTING.SEQUINS SPOOLER Work Phone: [facility] 09-20-2023 10:36-0400 Heart rate 100 /min Andres Fairdale ESTIMATOR PRINTING.SEQUINS SPOOLER Work Phone: [facility] 09-20-2023 10:36-0400 SaO2% (BldA) [Mass fraction] 96 % Andres Fairdale ESTIMATOR PRINTING.SEQUINS SPOOLER Work Phone: [facility] 09-20-2023 10:36-0400 Systolic blood pressure 144 mm[Hg] Andres Fairdale ESTIMATOR PRINTING.SEQUINS SPOOLER Work Phone: [facility] 09-15-2023 13:24-0400 Body height 182.2 cm Yoly Ilya PA-C Work Phone: [facility] 09-15-2023 13:24-0400 Body weight 104.78 kg Yoly Ilya PA-C Work Phone: [facility] 09-15-2023 13:24-0400 Diastolic blood pressure 74 mm[Hg] Yoly Ilya PA-C Work Phone: [facility] 09-15-2023 13:24-0400 Heart rate 78 /min Yoly Ilya PA-C Work Phone: [facility] 09-15-2023 13:24-0400 Respiratory rate 16 /min Yoly Ilya PA-C Work Phone: [facility] 09-15-2023 13:24-0400 SaO2% (BldA) [Mass fraction] 96 % Yoly Ilya PA-C Work Phone: [facility] 09-15-2023 13:24-0400 Systolic blood pressure 130 mm[Hg] Yoly Ilya PA-C Work Phone: [facility] 09-14-2023 14:24-0400 Body height 182.2 cm Lia Markham MD Work Phone: [facility] 09-14-2023 14:24-0400 Body weight 105.14 kg Lia Markham MD Work Phone: [facility] 09-14-2023 14:24-0400 Diastolic blood pressure 56 mm[Hg] Lia Markham MD Work Phone: [facility] 09-14-2023 14:24-0400 Heart rate 84 /min Lia Markham MD Work Phone: [facility] 09-14-2023 14:24-0400 SaO2% (BldA) [Mass fraction] 95 % Lia Markham MD Work Phone: [facility] 09-14-2023 14:24-0400 Systolic blood pressure 108 mm[Hg] Lia Markham MD Work Phone: [facility] 10-22-2022 14:16-0500 Body height 182.2 cm Lia Markham MD Work Phone: [facility] 10-22-2022 14:16-0500 Body weight 109.14 kg Lia Markham MD Work Phone: [facility] 10-22-2022 14:16-0500 Diastolic blood pressure 66 mm[Hg] Lia Markham MD Work Phone: [facility] 10-22-2022 14:16-0500 Heart rate 87 /min Lia Markham MD Work Phone: [facility] 10-22-2022 14:16-0500 SaO2% (BldA) [Mass fraction] 95 % Lia Markham MD Work Phone: [facility] 10-22-2022 14:16-0500 Systolic blood pressure 134 mm[Hg] Lia Markham MD Work Phone: [facility] 10-22-2022 08:03-0500 Body weight 109.77 kg Carly Banks MD Work Phone: [facility] 10-22-2022 08:03-0500 Diastolic blood pressure 78 mm[Hg] Carly Banks MD Work Phone: [facility] 10-22-2022 08:03-0500 Heart rate 97 /min Craly Banks MD Work Phone: [facility] 10-22-2022 08:03-0500 Respiratory rate 17 /min Carly Banks MD Work Phone: [facility] 10-22-2022 08:03-0500 SaO2% (BldA) [Mass fraction] 96 % Carly Banks MD Work Phone: [facility] 10-22-2022 08:03-0500 Systolic blood pressure 144 mm[Hg] Carly Banks MD Work Phone: [facility] 09-06-2022 10:33-0400 Body height 182.2 cm Respiratory Wstr Work Phone: [facility] 09-06-2022 10:33-0400 Body weight 110.18 kg Respiratory Wstr Work Phone: [facility] 09-06-2022 10:33-0400 Heart rate 73 /min Respiratory Wstr Work Phone: [facility] 09-06-2022 10:33-0400 Respiratory rate 14 /min Respiratory Wstr Work Phone: [facility] 09-06-2022 10:33-0400 SaO2% (BldA) [Mass fraction] 94 % Respiratory Wstr Work Phone: [facility] 09-03-2022 09:06-0400 Body height 182.9 cm Lia Markham MD Work Phone: [facility] 09-03-2022 09:06-0400 Body weight 110.5 kg Lia Markham MD Work Phone: [facility] 09-03-2022 09:06-0400 Diastolic blood pressure 60 mm[Hg] Lia Markham MD Work Phone: [facility] 09-03-2022 09:06-0400 Heart rate 84 /min Lia Markham MD Work Phone: [facility] 09-03-2022 09:06-0400 SaO2% (BldA) [Mass fraction] 96 % Lia Markham MD Work Phone: [facility] 09-03-2022 09:06-0400 Systolic blood pressure 114 mm[Hg] Lia Markham MD Work Phone: [facility] 08-20-2022 11:18-0400 Body weight 111.13 kg Lia Markham MD Work Phone: [facility] 08-20-2022 11:18-0400 Diastolic blood pressure 68 mm[Hg] Lia Markham MD Work Phone: [facility] 08-20-2022 11:18-0400 Heart rate 72 /min Lia Markham MD Work Phone: [facility] 08-20-2022 11:18-0400 Systolic blood pressure 132 mm[Hg] Lia Markham MD Work Phone: [facility] 06-24-2022 15:29-0400 Body weight 109.59 kg Rosemary Nikole ESTIMATOR PRINTING.SEQUINS SPOOLER Work Phone: [facility] 06-24-2022 15:29-0400 Diastolic blood pressure 88 mm[Hg] Rosemary Nikole ESTIMATOR PRINTING.SEQUINS SPOOLER Work Phone: [facility] 06-24-2022 15:29-0400 Heart rate 76 /min Rosemary Nikole ESTIMATOR PRINTING.SEQUINS SPOOLER Work Phone: [facility] 06-24-2022 15:29-0400 SaO2% (BldA) [Mass fraction] 95 % Rosemary Nikole ESTIMATOR PRINTING.SEQUINS SPOOLER Work Phone: [facility] 06-24-2022 15:29-0400 Systolic blood pressure 136 mm[Hg] Rosemary Nikole ESTIMATOR PRINTING.SEQUINS SPOOLER Work Phone: [facility] 06-21-2022 14:20-0400 Body temperature 98.4 [degF] Inna Roque ESTIMATOR PRINTING.SEQUINS SPOOLER Work Phone: [facility] 06-21-2022 14:20-0400 Body weight 110.68 kg Inna Roque ESTIMATOR PRINTING.SEQUINS SPOOLER Work Phone: [facility] 06-21-2022 14:20-0400 Diastolic blood pressure 78 mm[Hg] Inna Roque ESTIMATOR PRINTING.SEQUINS SPOOLER Work Phone: [facility] 06-21-2022 14:20-0400 Heart rate 86 /min Inna Roque ESTIMATOR PRINTING.SEQUINS SPOOLER Work Phone: [facility] 06-21-2022 14:20-0400 Respiratory rate 20 /min Inna Roque ESTIMATOR PRINTING.SEQUINS SPOOLER Work Phone: [facility] 06-21-2022 14:20-0400 SaO2% (BldA) [Mass fraction] 95 % Inna Roque ESTIMATOR PRINTING.SEQUINS SPOOLER Work Phone: [facility] 06-21-2022 14:20-0400 Systolic blood pressure 130 mm[Hg] Inna Roque ESTIMATOR PRINTING.SEQUINS SPOOLER Work Phone: [facility] 06-15-2022 08:19-0400 Body weight 108.86 kg Isabela Hernández ESTIMATOR PRINTING.SEQUINS SPOOLER Work Phone: [facility] 06-15-2022 08:19-0400 Diastolic blood pressure 80 mm[Hg] Isabela Haagen ESTIMATOR PRINTING.SEQUINS SPOOLER Work Phone: [facility] 06-15-2022 08:19-0400 Heart rate 76 /min Isabela Haagen ESTIMATOR PRINTING.SEQUINS SPOOLER Work Phone: [facility] 06-15-2022 08:19-0400 Respiratory rate 18 /min Isabela Hakulwinder ESTIMATOR PRINTING.SEQUINS SPOOLER Work Phone: [facility] 06-15-2022 08:19-0400 SaO2% (BldA) [Mass fraction] 95 % Isabela Haagen ESTIMATOR PRINTING.SEQUINS SPOOLER Work Phone: [facility] 06-15-2022 08:19-0400 Systolic blood pressure 132 mm[Hg] Isabela Haagen ESTIMATOR PRINTING.SEQUINS SPOOLER Work Phone: [facility] 02-15-2022 10:54-0400 Body weight 109.77 kg Lia Markham MD Work Phone: [facility] 02-15-2022 10:54-0400 Diastolic blood pressure 82 mm[Hg] Lia Markham MD Work Phone: [facility] 02-15-2022 10:54-0400 Heart rate 80 /min Lia Markham MD Work Phone: [facility] 02-15-2022 10:54-0400 Systolic blood pressure 120 mm[Hg] Lia Markham MD Work Phone: [facility] Encounters Encounter Date Encounter Type Care Provider Facility Start: 11-11-2023 End: 11-12-2023 ambulatory LIA MARKHAM Facility:[facility] Start: 11-10-2023 ambulatory Lia Markham MD [...] DTaP,Tdap,Td Vaccine (3 - Td or Tdap) [facility] Start: 10-06-2026 Colonoscopy COLONOSCOPY [facility] Start: 10-06-2026 COLORECTAL CANCER SCREENING COLORECTAL CANCER SCREENING [facility] Start: 10-06-2026 Screening for malignant neoplasm of colon [facility] Start: 08-21-2025 PROSTATE CANCER SCREENING DISCUSSION PROSTATE CANCER SCREENING DISCUSSION [facility] Start: 11-07-2024 Annual PCP Team Chronic Disease Visit Annual PCP Team Chronic Disease Visit [facility] Start: 10-29-2024 Hepatitis B surface antibody level LDL Cholesterol [facility] Start: 10-05-2024 Annual PCP Team Chronic Disease Visit Annual PCP Team Chronic Disease Visit [facility] Start: 09-28-2024 Influenza vaccination Lung Cancer Screening [facility] Start: 09-28-2024 Screening for malignant neoplasm of lung Lung Cancer Screening [facility] Start: 09-14-2024 Annual PCP Team Chronic Disease Visit Annual PCP Team Chronic Disease Visit [facility] Start: 09-05-2024 Annual PCP Team Chronic Disease Visit Annual PCP Team Chronic Disease Visit [facility] Start: 01-28-2024 Hemoglobin A1c measurement HbA1C [facility] Start: 12-07-2023 Hemoglobin A1c/Hemoglobin.total in Blood HbA1C [facility] Start: 11-10-2023 ANNUAL PCP TEAM CHRONIC DISEASE VISIT ANNUAL PCP TEAM CHRONIC DISEASE VISIT [facility] Start: 10-22-2023 ANNUAL PCP TEAM CHRONIC DISEASE VISIT ANNUAL PCP TEAM CHRONIC DISEASE VISIT [facility] Start: 10-21-2023 Glaucoma screening Dilated Retinal Exam [facility] Start: 10-21-2023 Hepatitis C antibody, confirmatory test DILATED RETINAL EXAM [facility] Start: 10-05-2023 End: 01-04-2024 CBC W Auto Differential panel - Blood CBC + DIFF Lab Routine Controlled type 2 diabetes mellitus without complication, without long-term current use of insulin (HCC) Expected: 10/05/2023, Expires: 01/04/2024 [facility] Work Phone: Immunizations Immunization Date Immunization Notes Care Provider Fa elkin 08-24-2023 influenza (HD-IIV4) vaccine, age 65+ yr, high dose, quadrivalent, PF (FLUZONE HIGH-DOSE) Lia Markham MD Work Phone: [facility] 08-24-2023 respiratory syncytia l virus (RSV) vaccine, adjuvanted (AREXVY) Lia Markham MD Work Phone: [facility] 08-20-2022 influenza, high-dose , quadrivalent vaccine (FLUZONE HIGH DOSE QUADRIVALENT) Lia Markham MD Work Phone: [facility] 08-20-2022 pneumococcal (PCV20) vaccine, 20 valent (PREVNAR 20) Lia Markham MD Work Phone: [facility] 08-20-2022 pneumococcal Conjuga te, unspecified formulation Lia Markham MD Work Phone: [facility] Work Phone: 08-20-2022 influenza virus vacc ine, unspecified formulation Carly Banks MD Work Phone: [facility] 09-09-2021 influenza, high dose seasonal, preservative-free Lia Markham MD Work Phone: [facility] 02-12-2021 COVID-19 vaccine, ag e 12+ yr (PFIZER-BIONTECH - PURPLE TOP) Lia Markham MD Work Phone: [facility] 01-22-2021 COVID-19 vaccine, ag e 12+ yr (PFIZER-BIONTECH - PURPLE TOP) Lia Markham MD Work Phone: [facility] 08-21-2020 influenza, high-dose , quadrivalent vaccine (FLUZONE HIGH DOSE QUADRIVALENT) Lia Markham MD Work Phone: [facility] 08-21-2020 pneumococcal polysaccharide vaccine, 23 valent Lia Markham MD Work Phone: [facility] 12-30-2019 zoster vaccine recombinant Lia Markham MD Work Phone: [facility] 10-18-2019 zoster vaccine recombinant Lia Markham MD Work Phone: [facility] 09-14-2019 influenza, high dose seasonal, preservative-free Lia Makrham MD Work Phone: [facility] 09-14-2019 zoster vaccine recombinant Lia Markham MD Work Phone: [facility] 10-04-2018 influenza, injectabl e, quadrivalent, contains preservative Lia Markham MD Work Phone: [facility] 09-01-2017 influenza, injectabl e, quadrivalent, contains preservative Lia Markham MD Work Phone: [facility] 09-21-2016 influenza, injectabl e, quadrivalent, contains preservative Lia Markham MD Work Phone: [facility] Work Phone: 10-30-2015 influenza, injectabl e, quadrivalent, contains preservative Lia Markham MD Work Phone: [facility] 10-31-2014 influenza, seasonal, injectable Lia Markham MD Work Phone: [facility] 10-31-2014 zoster vaccine, live Lia Markham MD Work Phone: [facility] 09-27-2012 influenza virus vacc ine, unspecified formulation Lia Markham MD Work Phone: [facility] 09-21-2011 influenza virus vacc ine, unspecified formulation Lia Markham MD Work Phone: [facility] Work Phone: 08-07-2010 pneumococcal polysaccharide vaccine, 23 valent Lia Markham MD Work Phone: [facility] Work Phone: 08-07-2010 tetanus toxoid, redu nathan diphtheria toxoid, and acellular pertussis vaccine, adsorbed Lia Markham MD Work Phone: [facility] Work Phone: 10-11-2007 influenza virus vacc ine, unspecified formulation Lia Markham MD Work Phone: [facility] Work Phone: Payers Date Payer Category Payer Medicare [id number] 2019 Medicare MEDICARE MEDICAR E A AND B [id number] 2019-Present [phone] [address] [address] [place] [address] Medicare [id number] 2019 Medicare [id number] 2001 Unknown JUAN J ROSS SS PPO [id number] 2001-2021 [facility] [id number] [place] [address] [facility] [id number] Social History Date Type Detail Facility Start: 05-01-2021 End: 09-20-2023 Tobacco smoking status NHIS Ex-smoker [facility] End: 09-01-2023 History of tobacco use Cigarette Smoker [facility] Start: 05-01-2021 End: 05-02-2023 Cigarettes smoked current (pack per day) - Reported 0.5 [facility] Start: 05-01-2021 End: 09-20-2023 Tobacco use and exposure Smokeless tobacco non-user [facility] Start: 02-15-2022 End: 09-14-2023 Alcohol intake Current drinker of alcohol (finding) [facility] Start: 04-27-2021 End: 10-21-2022 History SDOH Alcohol Frequency 2 [facility] Start: 04-27-2021 End: 10-21-2022 History SDOH Alcohol Std Drinks 1 [facility] Start: 04-05-2017 History SDOH Alcohol Comment occasionally beer or liquor [facility] Start: 04-27-2021 End: 10-21-2022 History SDOH Social Connections Phone 3 [facility] Start: 04-27-2021 History SDOH Physical Activity MPS 0 [facility] Start: 04-27-2021 Education 17 [facility] Start: 1955 Sex Assigned At Male [facility] Start: 02-05-2022 End: 10-22-2022 Exposure to SARS-CoV-2 (event) Not sure [facility] End: 09-01-2023 History of tobacco use Current smoker [facility] Start: 10-22-2022 Tobacco Comment Quit 2020 [facility] Start: 12-28-2022 End: 05-02-2023 Tobacco smoking status NHIS Occasional tobacco smoker [facility] Work Phone: Start: 12-28-2022 Tobacco Comment Restarted smoking over the holidays [facility] Start: 10-21-2022 End: 05-02-2023 Alcohol Use Disorder Identification Test - Consumption [AUDIT-C] [facility] How often to you hav e a drink containing alcohol? Monthly or less [facility] How many standard dr inks containing alcohol do you have on a typical day? 1 or 2 [facility] How often do you hav e 6 or more drinks on 1 occasion? Never [facility] Adult Depression Scr eening Assessment 0 [facility] Do you feel stress - tense, restless, nervous, or anxious, or unable to sleep at night because your mind is troubled all the time - these days [OSQ] To some extent [facility] In the past 12 month s, was there a time when you were not able to pay the mortgage or rent on time? No [facility] Start: 05-02-2023 Tobacco Comment Less than 1ppd 05/02/23 [facility] Start: 04-27-2021 Gender identity Identifies as male gender (finding) [facility] Start: 04-27-2021 Sexual orientation Heterosexual (finding) [facility] Do you belong to any clubs or organizations such as sikhism groups, Reminds, too.me or athletic groups, or school groups? Yes [facility] Are you now , , , , never or living with a partner? [facility] (I/We) worried wheth er (my/our) food would run out before (I/we) got money to buy more. Never true [facility] Start: 09-15-2023 End: 10-05-2023 Alcohol intake Ex-drinker (finding) [facility] Start: 09-15-2023 Tobacco Comment Less than 1ppd 05/02/23Quit 09/01/2023 [facility] Start: 09-20-2023 Tobacco Comment Quit 09/01/2023 [facility] Do you feel stress - tense, restless, nervous, or anxious, or unable to sleep at night because your mind is troubled all the time - these days [OSQ] Only a little [facility] Medical Equipment Procedure Code Equipment Code Equipment Origin al Text Equipment Identifier Dates Start: 07-29-2010 End: 07-11-2023 Clinical Notes 10-12-2011 to 11-07-2023 Telephone Encounter - Carly Manriquez Ma - 11/02/2023 12:44 PM ESTTelephone Encounter - Aleta Teague Ma - 10/22/2023 12:09 PM ESTTelephone Encounter - Lia Markham MD - 10/22/2023 11:22 AM EST Note Date & Type Note Facility 11-07-2023 Note HNO ID: [id number] Author: Lia Markham MD Service: ? Author Type: Physician Type: Progress Notes Filed: 11/07/2023 12:43 PM Note Text: Patient presents with: Hospice Discharge HPI: Patient presents today for office visit for hospital follow up. HOSPITAL/ER FOLLOW UP: Reason for visit: weakness, fall Which facility: [facility] Date of visit: 11/02/23 Discharged: 11/05/23 Diagnosis: [...] Use one pen needle four times daily apiolgyhuqk-vgckrtwcn-aknwebyj (TRELEGY ELLIPTA) 100-62.5-25 mcg inhalation powder Inhale [...] 2010 Dysmetabolic sy (more content not included)... [facility] 11-02-2023 Miscellaneous Notes Spoke to and scheduled patient Carly Manriquez Ma documented in this encounter [facility] 10-22-2023 Miscellaneous Notes Placed in mail written documented in this encounter [facility] 10-11-2023 Miscellaneous Notes rxi documented in this encounter [facility] 10-05-2023 Note HNO ID: [id number] Author: Lia Markham MD Service: ? Author Type: Physician Type: Progress Notes Filed: 10/05/2023 12:18 PM Note Text: Patient presents with: Follow Up HPI: Patient presents today for office visit for 3 week follow up. Was seen in [facility] on 09/06/23 for stroke like symptoms Discharged [...] his subacute cva. Was seen back in [facility] on 09/26/23 Discharged on 09/27/23 Went in [...] therapies ordered. He has been going to [facility] instead. Reiterated that it is not an acceptable substitute. Orders were placed. They are planning on going to [facility] this week. Suggested with recent cva they [...] Use one pen needle four times daily msruqzxztjw-glaamaojx-cjjjbpbj (TRELEGY ELLIPTA) 100-62.5-25 mcg inhalation powder Inhale [...] SPEC WHEN PFRMD (more content not included)... [facility] 10-05-2023 Instructions Lia Markham MD - 10/05/2023 12:08 PM EST Increase humalog to 19 units with each meal. Send over sugars on Tuesday. documented in this encounter [facility] 10-05-2023 History of Present illness Narrative Patient presents with: Follow Up HPI: Patient presents today for office visit for 3 week follow up. Was seen in [facility] on 09/06/23 for stroke like symptoms Discharged [...] his subacute cva. Was seen back in [facility] on 09/26/23 Discharged on 09/27/23 Went in [...] therapies ordered. He has been going to [facility] instead. Reiterated that it is not an acceptable substitute. Orders were placed. They are planning on going to [facility] this week. Suggested with recent cva they [...] Use one pen needle four times daily lsrwiwpvxaz-flhvynwew-bbceclyk (TRELEGY ELLIPTA) 100-62.5-25 mcg inhalation powder Inhale [...] Lia Markham MD documented in this encounter [facility] 09-28-2023 Note HNO ID: [id number] Author: Suellen Kaplan RT(R) Service: ? Author Type: Beer Cooler Type: Progress Notes Filed: 09/28/2023 4:18 PM [...] RT Avelina(R) September 28, 2023 4:18 PM [facility] 09-26-2023 Miscellaneous Notes Pt was taken to [facility] ER by spouse. Reg Broussard Message left for or patient to call PCP office and ask for charleen nurse, for provider's response below. Melody Schulz RN Agree, these sx belong in ER should not wait. Thanks, Rusty Calhoun, PA-C Patient's calls concerned. Patient was seen in [facility] 09/06/2023 with stroke like symptoms. Patient since [...] Sagrario Barrera RN documented in this encounter [facility] 09-22-2023 Note HNO ID: [id number] Author: Penny Pastor RDMS Service: ? Author Type: Beer Cooler Type: Progress Notes Filed: 09/22/2023 2:14 PM [...] Pastor RDMS September 22, 2023 2:14 PM [facility] 09-22-2023 History of Present illness Narrative Radiology [...] 2023 2:14 PM documented in this encounter [facility] 09-20-2023 Note HNO ID: [id number] Author: Andres Dotson APRN.SEQUINS SPOOLER Service: ? Author Type: Nurse Practitioner Type: [...] pre-disease performance w/o restriction. Modified Medical Research [place] Dyspnea Scale (MMRC) I only get breathless [...] Inject 50 Units subcutaneously daily at bedtime. ubetswwjsua-cyjlwxqid-qjxkkbyn (TRELEGY ELLIPTA) 100-62.5-25 mcg inhalation powder Inhale [...] mg by mout (more content not included)... [facility] 09-20-2023 Instructions Andres Dotson APRN.SEQUINS SPOOLER - 09/20/2023 10:[address] Lung [...] to endocrinology. Others Lung Cancer Screening hotline: [phone] Lung Cancer Screening [phone] Billing Questions: or [email or web address] Lung Cancer Screening Team: Angeles Lopez CNP; Gladys Reddy PA-C; Suellen Joseph CNP; Diamond Rosas CNP, Susanne Wolfe PA-C, Fide Andino PA-C, Andres Dotson, SEQUINS SPOOLER : [phone] documented in this encounter [facility] 09-20-2023 History of Present illness Narrative Images [...] pre-disease performance w/o restriction. Modified Medical Research [place] Dyspnea Scale (MMRC) I only get breathless [...] Inject 50 Units subcutaneously daily at bedtime. mstxxkptxtf-inseacost-qaugoymv (TRELEGY ELLIPTA) 100-62.5-25 mcg inhalation powder Inhale [...] COVID-19 original vaccine, age 12+ yr, monovalent ([employer] - PURPLE TOP) 01/22/2021 02/12/2021 09/09/2021 COVID-19 vaccine, age 12+ yr, 2022- season ([employer]) 09/13/2023 COVID-19 vaccine, age 12+ yr, bivalent ([employer]) 08/30/2022 influenza (HD-IIV3) vaccine, age 65+ yr, [...] DATE OF EXAM: Sep 06 2022 1:24PM [facility] 0541 - CT CHEST WO IVCON / [...] the upper abdomen demonstrates no interval changes. Steam Pan Sponger (topogram) images: No additional findings. Impression: IMPRESSION: Numerous tiny centrilobular nodules in the bilateral lungs, likely secondary to inflammatory/infectious process or small airway disease. Mild emphysema. No CT evidence of interstitial lung disease. Remote granulomatous disease. Angle Bender: PSCB Transcribe Date/Time: Sep 07 2022 2:32P [...] medial basilar pneumonia. Lungs are otherwise clear. Angle Bender: ABDULKADIR Transcribe Date/Time: Sep 03 2022 12:23P ... Pulmonary Function Testing: SPIROMETRY BASELINE ONLY ([id number]) - ordered on 09/15/23 Formerly [facility] [address] [place] [address] Test Date: 2023-09-15 Pat Name: OLGA WOODSON Department: Room: Gender: Male Beer Cooler: : 1955 Requested By: Order Number: [id number] Reading MD: Carly Banks MD Interpretive Statements The exhaled (FVC) spirometry maneuver meets ATS/ERS acceptability and repeatability standards. The inspired (FIVC) spirometry maneuver is [less than/greater than] the FVC maneuver. IMPRESSION: Spirometry indicates moderate obstruction. Electronically Signed On 09-15-2023 16:45:15 EDT by Carly Banks MD ID: [id number] Name: OLGA WOODSON Race: White Ht: 71.75 [...] 2.67 FEF50/FIF50 0.41 90-100 FIVC (L) 3.28 GUC39-55 (L/sec) 0.70 1.14 2.60 4.64 27 Time (sec) 13.94 FET PEF (sec) 0.12 AMINTA (L) 0.06 Vol Extrap % (%) 1 PHYSICAL EXAM: BP 144/82 Pulse 100 Wt 102.1 kg (225 lb) SpO2 96% BMI 30.73 kg/m Deferred ASSESSMENT and RECOMMENDATIONS: 1. Screening for lung cancer: Six year risk for lung cancer: 4.43% [email or web address] I have determined that the patient [...] 2023 10:40 AM documented in this encounter [facility] 09-15-2023 Note HNO ID: [id number] Author: Yoly Ornelas PA-C Service: ? Author Type: Physician Business Intelligence Consultant Type: Progress Notes Filed: 09/15/2023 2:43 PM Note Text: Patient: Olga Woodson PCP: Lia Markham MD CC: follow up HPI: Olga Woodson 68 year old male recently former 56-tpyf-nocr smoker with PMH significant for psoriasis, anxiety, HLD, DM, CVA, CALLI on CPAP, and COPD. Current therapy with Trelegy and as needed Albuterol. Today, patient states he was recently admitted to [facility] secondary to CVA. States he had been [...] Inject 50 Units subcutaneously daily at bedtime. udmterobewc-vonxwsehl-kjzgiqns (TRELEGY ELLIPTA) 100-62.5-25 mcg inhalation powder Inhale [...] history, social h (more content not included)... [facility] 09-15-2023 Note HNO ID: [id number] Author: Madyson Robbins RPFT Service: ? Author Type: Respiratory Therapist Type: Progress Notes Filed: 09/15/2023 1:18 PM Note Text: PULM FUNCTION SMARTBLOCK: Provider: Yoly Ornelas PA-C Assisting Tech: Madyson Robbins RPFT Spirometry: 1 [facility] 09-15-2023 History of Present illness Narrative Images from the original note were not included. Patient: Olga Woodson PCP: Lia Markham MD CC: follow up HPI: Olga Woodson 68 year old male recently former 52-fjnl-dhpw smoker with PMH significant for psoriasis, anxiety, HLD, DM, CVA, CALLI on CPAP, and COPD. Current therapy with Trelegy and as needed Albuterol. Today, patient states he was recently admitted to [facility] secondary to CVA. States he had been [...] Inject 50 Units subcutaneously daily at bedtime. akbupkbmntr-gqrpvkvcl-fgpcklut (TRELEGY ELLIPTA) 100-62.5-25 mcg inhalation powder Inhale [...] smoker - ICD9: V15.82, ICD10: Z87.891 Former 56-wusm-uunq smoker with sequelae of COPD. Is scheduled with lung cancer screening for LDCT. Portions of this documentation were copied and pasted from previous office visit notes in order to provide a cohesive continuity of the history. The note has been reviewed and edited and updated as necessary. Yoly Ornelas PA-C documented in this encounter [facility] 09-14-2023 Note HNO ID: [id number] Author: Lia Markham MD Service: ? Author Type: Physician Type: Progress Notes Filed: 09/15/2023 10:32 AM Note Text: Patient presents with: Hospital F/U HPI: Patient presents today for office visit for hospital follow up. Seen in [facility] on 09/06/23 Discharged 09/07/23 Admitted for stroke [...] Inject 50 Units subcutaneously daily at bedtime. zmbgpqpgucd-vjbcsyxgz-whbgetqs (TRELEGY ELLIPTA) 100-62.5-25 mcg inhalation powder Inhale [...] 07/13/2012 Right ro (more content not included)... [facility] 09-14-2023 Instructions Lia Markham MD - 09/14/2023 3:16 PM EDT My chart list of sugars next . documented in this encounter [facility] 09-14-2023 History of Present illness Narrative Patient presents with: Hospital F/U HPI: Patient presents today for office visit for hospital follow up. Seen in [facility] on 09/06/23 Discharged 09/07/23 Admitted for stroke [...] Inject 50 Units subcutaneously daily at bedtime. qbjcfpshcvl-joqgjxblm-dtiekjho (TRELEGY ELLIPTA) 100-62.5-25 mcg inhalation powder Inhale [...] CONSULT TO SPEECH THERAPY - CONSULT TO FLOTATION OPERATOR 2. Controlled type 2 diabetes mellitus without [...] aortic aneurysm (AAA) without rupture, unspecified part ([facility]) - ICD9: 441.4, ICD10: I71.40 - US ABD AORTA - US DOPPLER AORTA 6. Bronchiectasis without complication ([facility]) - ICD9: 494.0, ICD10: J47.9 - per pulmonary 7. Stage 3 severe COPD by GOLD classification ([facility]) - ICD9: 496, ICD10: J44.9 - per pulmonary. 8. History of diabetes mellitus - ICD9: V12.29, ICD10: Z86.39 9. Cerebrovascular accident (CVA), unspecified mechanism ([facility]) - ICD9: 434.91, ICD10: I63.9 - CONSULT TO NEUROLOGY 10. Infarction of thalamus (HCC) - ICD9: 434.91, ICD10: I63.81 - CONSULT TO NEUROLOGY 11. CALLI (obstructive sleep apnea) - ICD9: 327.23, ICD10: G47.33 - encouraged tx 12. Lung nodules - ICD9: 793.19, ICD10: R91.8 - per pulmonary. Lia Markham MD documented in this encounter [facility] documented as of this encounter (statuses as of 10/05/2023) [facility]10-25-2023 History of Past illness Narrative* Problem Noted [...] of uncertain behavi or of skin: R yarsani face: R/O BCC 10/12/2011 09/21/2016 Actinic Keratosis [...] of this encounter (statuses as of 10/07/2023) [facility] History of Past illness Narrative* Problem Noted [...] of uncertain behavi or of skin: R yarsani face: R/O BCC 10/12/2011 09/21/2016 Actinic Keratosis [...] of this encounter (statuses as of 10/12/2023) [facility] History of Past illness Narrative* Problem Noted [...] of uncertain behavi or of skin: R yarsani face: R/O BCC 10/12/2011 09/21/2016 Actinic Keratosis [...] of this encounter (statuses as of 10/22/2023) [facility]10-25[facility] History of Past illness Narrative* Problem Noted [...] of uncertain behavi or of skin: R yarsani face: R/O BCC 10/12/2011 09/21/2016 Actinic Keratosis [...] of this encounter (statuses as of 11/03/2023) [facility] History of Past illness Narrative* Problem Noted [...] of uncertain behavi or of skin: R yarsani face: R/O BCC 10/12/2011 09/21/2016 Actinic Keratosis [...] of this encounter (statuses as of 11/11/2023) [facility]10-16-2023 NoteHNO ID: [id number] Author: Lia Markham MD Service: ? Author [...] about patient. Patient was working out today. [place] refused to work out with patient due [...] Inject 50 Units subcutaneously daily at bedtime. juszzckdpdi-gntsfytls-fsjvesta (TRELEGY ELLIPTA) 100-62.5-25 mcg inhalation powder Inhale [...] penis erectile dysfunction PER (more content not included)...[facility]10-16-2023 Miscellaneous Notes* Telephone Encounter - Karen Varghese Ma - 09/05/2023 9:34 AM EDT Pt scheduled appt tonight. Karen Varghese Ma * Telephone Encounter - Karen Vargehse Ma - 09/05/2023 8:27 AM EDT Asked pt if he was seen in ED as advised on 09/02/23. Notified pt he needs an OV. Offerd to assist him in scheduling. Wait pt response. Karen Varghese Ma documented in this encounterK[facility]-2023 Miscellaneous Notes* Telephone Encounter - Alicia Reyes [...] patient. Alicia Reyes LPN documented in this encounterK[facility]07-14-2023 Miscellaneous Notes* Telephone Encounter - Lia Markham MD - 06/03/2023 7:58 AM EDT Does not look like he picked up the message. Can we call him with my response. I do not think he realizes it is the same identical med...just called different. documented in this encounterK[facility]06-12-2023 NoteHNO ID: [id number] Author: Yoly Ornelas PA-C Service: ? Author Type: Physician Business Intelligence Consultant Type: Progress Notes Filed: 05/02/2023 11:39 AM [...] 08/07/2010 Diagnosed 07/2010 Allergies: Metformin Diarrhea Penicillins rxjzhjynlhx-rpsjpyoor-ngjqostb (TRELEGY ELLIPTA) 100-62.5-25 mcg inhalation powder Inhale [...] 07/01/2015 resolution pleural ef (more content not included)...[facility] 04-04-2023 Miscellaneous Notes* Telephone Encounter - Reg [...] When form is completed, Fax form to [phone] Form has been forwarded to Nurse Practictioner: JERI Canchola LPN documented in this encounterKet[facility]05-02-2023 Miscellaneous Notes* Telephone Encounter - Marcy Cedillo LPN - 03/22/2023 10:35 AM EDT Patient phones requesting refills as follows: Requested Prescriptions Pending Prescriptions Disp Refills gsqswfukuqy-ztcumzayn-dbwjgvoe (TRELEGY ELLIPTA) 100-62.5-25 mcg inhalation powder 1 Each 3 Sig: Inhale 1 Puff as instructed once daily. Please review and advise. Marcy Cedillo LPN documented in this encounterKettering [facility]05-01-2023 Miscellaneous Notes* Telephone Encounter - Alicia Reyes [...] patient. Alicia Reyes LPN documented in this encounterKet[facility]03-24-2023 Miscellaneous Notes* Telephone Encounter - Alicia Reyes [...] leaking wants to see Dr Church at [facility] needsreferral sent over there. documented in this encounterKet[facility]03-20-2023 Miscellaneous Notes* Telephone Encounter - Alicia Reyes [...] patient. Alicia Reyes LPN documented in this encounterKettering [facility]02-07-2023 NoteHNO ID: [id number] Author: Carly Banks MD Service: ? Author Type: Physician Type: Progress Notes Filed: 12/28/2022 11:06 AM Note Text: . [facility]piratory [place] Note Patient name: Olga Woodson PCP: Lia [...] 3 mg subcutaneously one time a week. eglwqhknxve-lelnoxmxh-vczxqbwm (TRELEGY ELLIPTA) 100-62.5-25 mcg inhalation powder Inhale [...] and deep fold areas. (more content not included)...[facility]12-15-2022 Miscellaneous Notes* Telephone Encounter - Zion Calhoun PA-C - 11/04/2022 6:35 PM EST The following approved medication requests have been transmitted electronically. Requested Prescriptions Signed Prescriptions Disp Refills dulaglutide (TRULICITY) 3 mg/0.5 mL pen injector 12 Each 3 Sig: Inject 3 mg subcutaneously one time a week. Zion Calhoun PA-C documented in this encounterKettering [facility]12-02-2022 History of Present illness Narrative* Lia Markham [...] ago. MEDICATIONS: Current Outpatient Medications Medication Sig hwdipmsvmxq-pgkstecth-kgwgcejt (TRELEGY ELLIPTA) 100-62.5-25 mcg inhalation powder Inhale [...] Stage 3 severe COPD by GOLD classification ([facility]) - ICD9: 496, ICD10: J44.9 (primary diagnosis) - continue meds. 2. Mild depressive disorder - ICD9: 311, ICD10: F32.A - VENLAFAXINE ER 150 MG CAPSULE,EXTENDED RELEASE 24 HR 3. Bronchiectasis without complication ([facility]) - ICD9: 494.0, ICD10: J47.9 - stable. Discussed importance of taking meds regularly. 4. Controlled type 2 diabetes mellitus without complication, without long-term current use of insulin ([facility]) - ICD9: 250.00, ICD10: E11.9 improved control - Continue current medications Lia Markham MD documented in this encounterKettering [facility]12-02-2022 History of Present illness Narrative* Carly Banks MD - 10/22/2022 8:00 AM EST Images from the original note were not included. . Res[facility] [place] Note Patient name: Olga Woodson PCP: Lia [...] breath. Started a working out with a corporate trainer who noticed significant labored breathing.He notes [...] DATE OF EXAM: Sep 06 2022 1:24PM [facility] 0541 - CT CHEST WO IVCON / [...] 07/2010 ALLERGIES Allergen Reactions Metformin Diarrhea Penicillins sfmanwotdel-xcteewlhc-ttjxhfho (TRELEGY ELLIPTA) 100-62.5-25 mcg inhalation powder Inhale [...] be helpful 2. Former cigarette smoker -Former 43-suak-khqe smoker having quit in 2019 with sequelae of COPD/emphysema -Continue abstinence -Qualifies for low-dose chest CT for cancer screening but would not be due until August 2023 3. Obesity -Class II obesity, BMI 33 -Weight loss advised Carly Banks MD [facility] [place] documented in this encounterKettering Health [facility]11-02-2022 Miscellaneous Notes* Telephone Encounter - Alicia Reyes LPN - 09/22/2022 11:57 AM EDT Faxed back to [place] as requested. * Telephone Encounter - Lia [...] Dr. Shahrzad Broussard LPN documented in this encounterKettering Health [facility]11-01-2022 Miscellaneous Notes* Telephone Encounter - Melody Schulz RN - 09/21/2022 10:11 AM EDT [facility]oly from [facility] calling and states she has received printed CPAP script for patient. Yoly requesting recent OV notes and sleep study results also. Faxed as requested to [phone]. Melody Schulz RN documented in this [facility]10-31-2022 Miscellaneous Notes* Telephone Encounter - Zion French RN - 09/20/2022 10:05 AM EDT Left detailed vm on identified vm with provider's message below. * Telephone Encounter - Zion Calhoun PA-C - 09/19/2022 5:15 PM EDT I placed consult if he wants to establish with [facility] Dr. Banks Thanks, Rusty Calhoun PA-C documented in this encounterKettering Health [facility]10-21-2022 Miscellaneous Notes* Telephone Encounter - Ana María [...] to pulmonary to follow documented in this encounterKettering Health [facility]10-18-2022 Miscellaneous Notes* Telephone Encounter - Aleta Teague Ma - 09/07/2022 3:44 PM EDT Keila Porras sends fax stating that rx for CPAP needs to state that it is a replacement machine. Please file. Once filed, will fax with office note. documented in this encounterKettering [facility]10-17-2022 History of Present illness Narrative* RT Mahsa(R) [...] 06, 2022 3:26 PM documented in this encounterKettering Health [facility]10-17-2022 History of Present illness Narrative* ERICA Silva - 09/06/2022 10:33 AM EDT PULM FUNCTION SMARTBLOCK: Provider: Lia Markham MD Assisting Tech: ERICA Silva Spirometry w/BD: 1 DLCO: 1 LV - Box: 1 documented in this encounterKettering Health [facility]10-14-2022 Miscellaneous Notes* Telephone Encounter - Aleta Teague Ma - 09/03/2022 12:54 PM EDT Patient denies any fever, cough or congestion. Please help pt set up ct scan. * Telephone Encounter - Lia Markham MD - 09/03/2022 12:45 PM EDT Shows some scarring. They question the possibility of pneumonia but is questionable. Make sure one more time. No fever, worsening cough or congestion. If not can consider ct of chest as well to rule out scarring or fibrosis. documented in this encounterKettering Health [facility]10-14-2022 History of Present illness Narrative* Lia Markham [...] antegrade flow noted. Technologist: Brynn Harrington RVT, [facility] Ordering physician: LIA MARKHAM Aorta: 3.3 cm [...] RTO in six weeks. documented in this encounterKettering Health [facility]10-11-2022 Miscellaneous Notes* Telephone Encounter - Melody Schulz [...] scheduled appt is 10/22. Please advise at [phone]. Reason for Disposition [1] MODERATE longstanding difficulty [...] does nothing, but they do go to [employer] during the week and patient does a [...] about 8 months ago when they started [employer]-reports he is the same with his SOB. [...] n/a 12. TRAVEL: no Protocols used: Breathing Uedqbuukyu-DQHRD-WD documented in this encounterKettering Health [facility]10-06-2022 History of Present illness Narrative* Penny Pastor [...] 26, 2022 11:52 AM documented in this encounterKettering Health [facility]10-05-2022 Miscellaneous Notes* Telephone Encounter - Danielle Sprague [...] we can get his sleep study from [facility] in 2013. documented in this encounterKettering Health [facility]09-30-2022 Miscellaneous Notes* Addendum Note - Lia Markham MD - 08/20/2022 11:58 AM EDTAddended by: LIA MARKHAM on: 08/20/2022 11:58 AM Modules accepted: Orders, SmartSet documented in this encounterKettering Health [facility]09-30-2022 History of Present illness Narrative* Lia Markham [...] six to eight weeks. documented in this encounterKettering Health [facility]08-12-2022 Miscellaneous Notes* Telephone Encounter - Alicia Reyes [...] patient. Alicia Reyes LPN documented in this encounterKettering Health [facility]08-12-2022 Miscellaneous Notes* Telephone Encounter - Melody Oliveira - 07/02/2022 10:53 AM EDT Called patient and patient stated that he went to see someone yesterday for his toe. Patient did not want to be schedule with podiatry * Telephone Encounter - Isabela Hernández APRN.SEQUINS SPOOLER - 06/25/2022 8:49 AM EDT Please help [...] Advise. Karen Varghese Ma documented in this encounterKettering Health [facility]08-04-2022 History of Present illness Narrative* Rosemary Agustin [...] DROPS Rosemary Agustin APRN.CNP documented in this encounterKettering Health [facility]08-04-2022 Miscellaneous Notes* Telephone Encounter - Carly Manriquez Ma - 06/24/2022 12:56 PM EDT Spoke to patient and scheduled for today Carly Manriquez Ma documented in this encounterKettering Health [facility]08-01-2022 Instructions* Patient Instructions* Inna Roque APRN.CNP - [...] contagious, but need treatment. documented in this encounterKettering Health [facility]08-01-2022 History of Present illness Narrative* Inna Roque APRN.JERI - 06/21/2022 2:33 PM EDT This note was created using MD Lingoriter. Subjective Olga Woodson is a 66 year old male. 66 male with PMH of CVA, AAA, Hyperlipidemia, DM presents with complaints of right ear fullness. 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 The history is provided by the patient. No pickle water pump operator was used. Ear Pain This is a [...] upon. Inna Roque APRN.CNP documented in this encounterKettering [facility]07-27-2022 Miscellaneous Notes* Telephone Encounter - Karen Varghese Ma - 06/16/2022 10:59 AM EDT Called Client Services, spoke with Eduard. On hold for 13 minutes. Unable to add A1c. Pt sent Lendiohart message notifying him of result below from Provider. Made pt aware that incorrect lab was ordered and asked him to come in and complete an A1c. Apologized for inconvenience. Karen Varghese Ma * Telephone Encounter - Lia Markham MD - 06/16/2022 8:04 AM EDT Sugar was 215. Rest of labs ok. Can we add a1c to see where it is. documented in this encounterKettering Health [facility]07-26-2022 Instructions* Patient Instructions* Isabela Hernández APRN.CNP - 06/15/2022 9:00 AM EDT 1. Start the naproxen twice daily with food X 1 week. Then you can use twice daily as needed. 2. Get the labwork. 3. Get the xray done. 4. Let us know if no better or any worsening. documented in this encounterKettering [facility]07-26-2022 History of Present illness Narrative* Isabela Hernández [...] as needed for worsening/no improvement. Isabela Hernández APRN.SEQUINS SPOOLER documented in this encounterKettering [facility]06-15-2022 Miscellaneous Notes* Telephone Encounter - Alicia Reyes LPN - 05/05/2022 10:55 AM EDT Faxed back as requested. * Telephone Encounter - Lia Markham MD - 05/05/2022 10:13 AM EDT done * Telephone Encounter - Karen Varghese Ma - 05/05/2022 8:59 AM EDT Office received fax from [employer] for certificate of medical necessity for pt DME supplies. Routedto PCP to review and complete. Once complete fax back to [phone]. Karen Varghese Ma documented in this encounterKettering [facility]03-28-2022 Instructions* Patient Instructions* Lia Markham MD - 02/15/2022 11:14 AM EDT Increase humalog to 17 units with each meal and call sugars in two weeks. Watch diet and increase exercise to help as well. documented in this encounterKettering Health [facility]03-28-2022 History of Present illness Narrative* Lia Markham [...] six months and prn. 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 Neoplasm of uncertain behavi or of skin: R yarsani face: R/O BCC 10/12/2011 09/21/2016 Actinic Keratosis [...] of this encounter (statuses as of 02/18/2022) [facility] of Past illness Narrative* Problem Noted Date Resolved Date 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 Neoplasm of uncertain behavi or of skin: R yarsani face: R/O BCC 10/12/2011 09/21/2016 Actinic Keratosis [...] of this encounter (statuses as of 03/24/2022) [facility] of Past illness Narrative* Problem Noted Date Resolved Date 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 Neoplasm of uncertain behavi or of skin: R yarsani face: R/O BCC 10/12/2011 09/21/2016 Actinic Keratosis [...] of this encounter (statuses as of 05/05/2022) [facility] of Past illness Narrative* Problem Noted Date Resolved Date 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 Neoplasm of uncertain behavi or of skin: R yarsani face: R/O BCC 10/12/2011 09/21/2016 Actinic Keratosis [...] of this encounter (statuses as of 06/15/2022) [facility] of Past illness Narrative* Problem Noted Date Resolved Date 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 Neoplasm of uncertain behavi or of skin: R yarsani face: R/O BCC 10/12/2011 09/21/2016 Actinic Keratosis [...] of this encounter (statuses as of 06/16/2022) [facility] of Past illness Narrative* Problem Noted Date Resolved Date 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 Neoplasm of uncertain behavi or of skin: R yarsani face: R/O BCC 10/12/2011 09/21/2016 Actinic Keratosis [...] of this encounter (statuses as of 06/21/2022) [facility] of Past illness Narrative* Problem Noted Date Resolved Date 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 Neoplasm of uncertain behavi or of skin: R yarsani face: R/O BCC 10/12/2011 09/21/2016 Actinic Keratosis [...] of this encounter (statuses as of 06/24/2022) [facility] History of Past illness Narrative* Problem Noted Date Resolved Date 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 Neoplasm of uncertain behavi or of skin: R yarsani face: R/O BCC 10/12/2011 09/21/2016 Actinic Keratosis [...] of this encounter (statuses as of 06/24/2022) [facility] History of Past illness Narrative* Problem Noted Date Resolved Date 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 Neoplasm of uncertain behavi or of skin: R yarsani face: R/O BCC 10/12/2011 09/21/2016 Actinic Keratosis [...] of this encounter (statuses as of 06/25/2022) [facility] History of Past illness Narrative* Problem Noted Date Resolved Date 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 Neoplasm of uncertain behavi or of skin: R yarsani face: R/O BCC 10/12/2011 09/21/2016 Actinic Keratosis [...] of this encounter (statuses as of 07/02/2022) [facility] History of Past illness Narrative* Problem Noted Date Resolved Date 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 Neoplasm of uncertain behavi or of skin: R yarsani face: R/O BCC 10/12/2011 09/21/2016 Actinic Keratosis [...] of this encounter (statuses as of 07/05/2022) [facility] History of Past illness Narrative* Problem Noted Date Resolved Date 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 Neoplasm of uncertain behavi or of skin: R yarsani face: R/O BCC 10/12/2011 09/21/2016 Actinic Keratosis [...] of this encounter (statuses as of 07/20/2022) [facility] History of Past illness Narrative* Problem Noted Date Resolved Date 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 Neoplasm of uncertain behavi or of skin: R yarsani face: R/O BCC 10/12/2011 09/21/2016 Actinic Keratosis [...] of this encounter (statuses as of 08/18/2022) [facility] History of Past illness Narrative* Problem Noted Date Resolved Date 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 Neoplasm of uncertain behavi or of skin: R yarsani face: R/O BCC 10/12/2011 09/21/2016 Actinic Keratosis [...] of this encounter (statuses as of 08/20/2022) [facility] History of Past illness Narrative* Problem Noted Date Resolved Date 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 Neoplasm of uncertain behavi or of skin: R yarsani face: R/O BCC 10/12/2011 09/21/2016 Actinic Keratosis [...] of this encounter (statuses as of 08/25/2022) [facility] History of Past illness Narrative* Problem Noted Date Resolved Date 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 Neoplasm of uncertain behavi or of skin: R yarsani face: R/O BCC 10/12/2011 09/21/2016 Actinic Keratosis [...] of this encounter (statuses as of 08/27/2022) [facility] History of Past illness Narrative* Problem Noted Date Resolved Date 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 Neoplasm of uncertain behavi or of skin: R yarsani face: R/O BCC 10/12/2011 09/21/2016 Actinic Keratosis [...] of this encounter (statuses as of 08/31/2022) [facility] History of Past illness Narrative* Problem Noted Date Resolved Date 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 Neoplasm of uncertain behavi or of skin: R yarsani face: R/O BCC 10/12/2011 09/21/2016 Actinic Keratosis [...] of this encounter (statuses as of 08/31/2022) [facility] History of Past illness Narrative* Problem Noted Date Resolved Date 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 Neoplasm of uncertain behavi or of skin: R yarsani face: R/O BCC 10/12/2011 09/21/2016 Actinic Keratosis [...] of this encounter (statuses as of 09/03/2022) [facility] History of Past illness Narrative* Problem Noted Date Resolved Date 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 Neoplasm of uncertain behavi or of skin: R yarsani face: R/O BCC 10/12/2011 09/21/2016 Actinic Keratosis [...] of this encounter (statuses as of 09/06/2022) [facility] History of Past illness Narrative* Problem Noted Date Resolved Date 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 Neoplasm of uncertain behavi or of skin: R yarsani face: R/O BCC 10/12/2011 09/21/2016 Actinic Keratosis [...] of this encounter (statuses as of 09/07/2022) [facility] History of Past illness Narrative* Problem Noted Date Resolved Date 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 Neoplasm of uncertain behavi or of skin: R yarsani face: R/O BCC 10/12/2011 09/21/2016 Actinic Keratosis [...] of this encounter (statuses as of 09/07/2022) [facility] History of Past illness Narrative* Problem Noted Date Resolved Date 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 Neoplasm of uncertain behavi or of skin: R yarsani face: R/O BCC 10/12/2011 09/21/2016 Actinic Keratosis [...] of this encounter (statuses as of 09/09/2022) [facility] History of Past illness Narrative* Problem Noted Date Resolved Date 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 Neoplasm of uncertain behavi or of skin: R yarsani face: R/O BCC 10/12/2011 09/21/2016 Actinic Keratosis [...] of this encounter (statuses as of 09/10/2022) [facility] History of Past illness Narrative* Problem Noted Date Resolved Date 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 Neoplasm of uncertain behavi or of skin: R yarsani face: R/O BCC 10/12/2011 09/21/2016 Actinic Keratosis [...] of this encounter (statuses as of 09/14/2022) [facility] History of Past illness Narrative* Problem Noted Date Resolved Date 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 Neoplasm of uncertain behavi or of skin: R yarsani face: R/O BCC 10/12/2011 09/21/2016 Actinic Keratosis [...] of this encounter (statuses as of 09/20/2022) [facility] History of Past illness Narrative* Problem Noted Date Resolved Date 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 Neoplasm of uncertain behavi or of skin: R yarsani face: R/O BCC 10/12/2011 09/21/2016 Actinic Keratosis [...] of this encounter (statuses as of 09/21/2022) [facility] History of Past illness Narrative* Problem Noted Date Resolved Date 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 Neoplasm of uncertain behavi or of skin: R yarsani face: R/O BCC 10/12/2011 09/21/2016 Actinic Keratosis [...] of this encounter (statuses as of 09/22/2022) [facility] History of Past illness Narrative* Problem Noted Date Resolved Date 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 Neoplasm of uncertain behavi or of skin: R yarsani face: R/O BCC 10/12/2011 09/21/2016 Actinic Keratosis [...] of this encounter (statuses as of 10/22/2022) [facility] History of Past illness Narrative* Problem Noted Date Resolved Date 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 Neoplasm of uncertain behavi or of skin: R yarsani face: R/O BCC 10/12/2011 09/21/2016 Actinic Keratosis [...] of this encounter (statuses as of 10/22/2022) [facility] History of Past illness Narrative* Problem Noted Date Resolved Date 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 Neoplasm of uncertain behavi or of skin: R yarsani face: R/O BCC 10/12/2011 09/21/2016 Actinic Keratosis [...] of this encounter (statuses as of 11/04/2022) [facility] History of Past illness Narrative* Problem Noted Date Resolved Date 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 Neoplasm of uncertain behavi or of skin: R yarsani face: R/O BCC 10/12/2011 09/21/2016 Actinic Keratosis [...] of this encounter (statuses as of 02/07/2023) [facility] History of Past illness Narrative* Problem Noted Date Resolved Date 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 Neoplasm of uncertain behavi or of skin: R yarsani face: R/O BCC 10/12/2011 09/21/2016 Actinic Keratosis [...] of this encounter (statuses as of 02/11/2023) [facility] History of Past illness Narrative* Problem Noted Date Resolved Date 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 Neoplasm of uncertain behavi or of skin: R yarsani face: R/O BCC 10/12/2011 09/21/2016 Actinic Keratosis [...] of this encounter (statuses as of 03/21/2023) [facility] History of Past illness Narrative* Problem Noted Date Resolved Date 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 Neoplasm of uncertain behavi or of skin: R yarsani face: R/O BCC 10/12/2011 09/21/2016 Actinic Keratosis [...] of this encounter (statuses as of 03/22/2023) [facility] History of Past illness Narrative* Problem Noted Date Resolved Date 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 Neoplasm of uncertain behavi or of skin: R yarsani face: R/O BCC 10/12/2011 09/21/2016 Actinic Keratosis [...] of this encounter (statuses as of 04/04/2023) [facility] History of Past illness Narrative* Problem Noted Date Resolved Date 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 Neoplasm of uncertain behavi or of skin: R yarsani face: R/O BCC 10/12/2011 09/21/2016 Actinic Keratosis [...] of this encounter (statuses as of 04/04/2023) [facility]2011 History of Past illness Narrative* Problem Noted Date Diagnosed Date Resolved Date 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 09/21/2016 Neoplasm of uncertain behavi or of skin: R yarsani face: R/O BCC 10/12/2011 09/21/2016 Actinic Keratosis [...] of this encounter (statuses as of 06/03/2023) [facility] History of Past illness Narrative* Problem Noted Date Diagnosed Date Resolved Date 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 09/21/2016 Neoplasm of uncertain behavi or of skin: R yarsani face: R/O BCC 10/12/2011 09/21/2016 Actinic Keratosis [...] of this encounter (statuses as of 07/11/2023) [facility] History of Past illness Narrative* Problem Noted Date Diagnosed Date Resolved Date 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 09/21/2016 Neoplasm of uncertain behavi or of skin: R yarsani face: R/O BCC 10/12/2011 09/21/2016 Actinic Keratosis [...] of this encounter (statuses as of 08/10/2023) [facility] History of Past illness Narrative* Problem Noted Date Diagnosed Date Resolved Date 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 09/21/2016 Neoplasm of uncertain behavi or of skin: R yarsani face: R/O BCC 10/12/2011 09/21/2016 Actinic Keratosis [...] of this encounter (statuses as of 08/16/2023) [facility] History of Past illness Narrative* Problem Noted Date Diagnosed Date Resolved Date 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 09/21/2016 Neoplasm of uncertain behavi or of skin: R yarsani face: R/O BCC 10/12/2011 09/21/2016 Actinic Keratosis [...] of this encounter (statuses as of 09/05/2023) [facility] History of Past illness Narrative* Problem Noted Date Diagnosed Date Resolved Date 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 09/21/2016 Neoplasm of uncertain behavi or of skin: R yarsani face: R/O BCC 10/12/2011 09/21/2016 Actinic Keratosis [...] of this encounter (statuses as of 09/08/2023) [facility] History of Past illness Narrative* Problem Noted Date Diagnosed Date Resolved Date 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 09/21/2016 Neoplasm of uncertain behavi or of skin: R yarsani face: R/O BCC 10/12/2011 09/21/2016 Actinic Keratosis [...] of this encounter (statuses as of 09/09/2023) [facility] History of Past illness Narrative* Problem Noted Date Diagnosed Date Resolved Date 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 09/21/2016 Neoplasm of uncertain behavi or of skin: R yarsani face: R/O BCC 10/12/2011 09/21/2016 Actinic Keratosis [...] of this encounter (statuses as of 09/15/2023) [facility] History of Past illness Narrative* Problem Noted Date Diagnosed Date Resolved Date 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 09/21/2016 Neoplasm of uncertain behavi or of skin: R yarsani face: R/O BCC 10/12/2011 09/21/2016 Actinic Keratosis [...] of this encounter (statuses as of 09/15/2023) [facility] History of Past illness Narrative* Problem Noted Date Diagnosed Date Resolved Date 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 09/21/2016 Neoplasm of uncertain behavi or of skin: R yarsani face: R/O BCC 10/12/2011 09/21/2016 Actinic Keratosis [...] of this encounter (statuses as of 09/20/2023) [facility] History of Past illness Narrative* Problem Noted Date Diagnosed Date Resolved Date 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 09/21/2016 Neoplasm of uncertain behavi or of skin: R yarsani face: R/O BCC 10/12/2011 09/21/2016 Actinic Keratosis [...] of this encounter (statuses as of 09/27/2023) [facility] History of Past illness Narrative* Problem Noted Date Diagnosed Date Resolved Date 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 09/21/2016 Neoplasm of uncertain behavi or of skin: R yarsani face: R/O BCC 10/12/2011 09/21/2016 Actinic Keratosis [...] of this encounter (statuses as of 09/27/2023) [facility] History of Past illness Narrative* Problem Noted Date Diagnosed Date Resolved Date 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 09/21/2016 Neoplasm of uncertain behavi or of skin: R yarsani face: R/O BCC 10/12/2011 09/21/2016 Actinic Keratosis [...] of this encounter (statuses as of 09/29/2023) [facility] note* Diagnosis Controlled type 2 diabetes mellitus without complication, without long-term current use of insulin (HCC)- Primary Bilateral carotid artery stenosis Occlusion and stenosis of carotid artery without mention of cerebral infarction Abdominal aortic aneurysm (AAA) without rupture (HCC) Hyperlipidemia, unspecified hyperlipidemia type CALLI (obstructive sleep apnea) Obstructive sleep apnea (adult) (pediatric) [facility] Diagnosis Pain of toe, unspecified laterality- Primary [facility]* Diagnosis Controlled type 2 diabetes mellitus without complication, without long-term current use of insulin (HCC)- Primary [facility] Diagnosis Acute otitis media, right- Primary Unspecified otitis media [facility] Diagnosis Acute otitis externa of right ear, unspecified type- Primary [facility] Diagnosis Pain of toe, unspecified laterality- Primary Controlled type 2 diabetes mellitus without complication, without long-term current use of insulin (HCC) [facility] Diagnosis Controlled type 2 diabetes mellitus [...] unspecified single disease [facility] Diagnosis CALLI (obstructive sleep apnea)- Primary Obstructive sleep apnea (adult) (pediatric) [facility]* Diagnosis Abdominal aortic aneurysm (AAA) without rupture [facility]* Diagnosis SOB (shortness of breath)- Primary Shortness of breath CALLI (obstructive sleep apnea) Obstructive sleep apnea (adult) (pediatric) Cough, unspecified type Abdominal aortic aneurysm (AAA) without rupture, unspecified part [facility] Diagnosis SOB (shortness of breath) Shortness of breath [facility] Diagnosis SOB (shortness of breath) Shortness of breath [facility] Diagnosis Lung fibrosis (HCC) Postinflammatory pulmonary fibrosis SOB (shortness of breath) Shortness of breath [facility] Diagnosis CALLI (obstructive sleep apnea) Obstructive sleep apnea (adult) (pediatric) [facility] 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 SOB (shortness of breath) Shortness of breath [facility] Diagnosis At risk for shortness of breath- Primary SOB (shortness of breath) Shortness of breath [facility] Diagnosis Bronchiectasis without complication (HCC)- Primary Bronchiectasis without acute exacerbation CALLI (obstructive sleep apnea) Obstructive sleep apnea (adult) (pediatric) [facility]* Diagnosis Stage 3 severe COPD by GOLD classification ([facility])- Primary Former cigarette smoker Personal history of tobacco use, presenting hazards to health Class 1 obesity due to excess calories with body mass index (BMI) of 33.0 to 33.9 in adult, unspecified whether serious comorbidity present [facility] Diagnosis Stage 3 severe COPD by GOLD classification ([facility])- Primary Mild depressive disorder Bronchiectasis without complication (HCC) Bronchiectasis without acute exacerbation Controlled type 2 diabetes mellitus without complication, without long-term current use of insulin (HCC) [facility]* Diagnosis Controlled type 2 diabetes mellitus without complication, without long-term current use of insulin (HCC) [facility]* Diagnosis Post-void dribbling- Primary [facility]* Diagnosis Cigarette smoker- Primary Tobacco use disorder [facility] Diagnosis History of stroke with residual [...] of lung field documented in this encounter [facility] note* Diagnosis Moderate COPD (chronic obstructive pulmonary disease) (HCC)- Primary Chronic airway obstruction, not elsewhere classified Former cigarette smoker Personal history of tobacco use, presenting hazards to health documented in this encounter [facility] note* Diagnosis Encounter for screening for lung cancer- Primary Former cigarette smoker Personal history of tobacco use, presenting hazards to health [facility] Diagnosis Abdominal aortic aneurysm (AAA) without rupture, unspecified part (HCC) documented in this encounter [facility] note* Diagnosis Personal history of tobacco use, presenting hazards to health- Primary documented in this encounter [facility] note* Diagnosis Cerebrovascular accident (CVA), unspecified mechanism (HCC)- Primary Controlled type 2 diabetes mellitus without complication, without long-term current use of insulin (HCC) History of diabetes mellitus Personal history of other endocrine, metabolic, and immunity disorders Infarction of thalamus (HCC) Hyperlipidemia, unspecified hyperlipidemia type documented in this encounter [facility] note* Diagnosis Controlled type 2 diabetes mellitus without complication, without long-term current use of insulin (HCC) documented in this encounter [facility] note* Diagnosis Controlled type 2 diabetes mellitus without complication, without long-term current use of insulin (HCC)- Primary documented in this encounter [facility] note* Diagnosis Cerebrovascular accident (CVA), unspecified mechanism (HCC)- Primary documented in this encounter [facility] for referral (narrative)* Diagnostic Procedure Only (Routine) - Closed Specialty Diagnoses / Procedures Referred By Contadriano t Referred To Contact XR IMAGING Diagnoses Pain of toe, unspecified laterality Procedures XR TOE AP/LAT/OBL LEFT RADEX TOE MINIMUM 2 VIEWS Isabela Hernández, ESTIMATOR [employer] [address] [place] [address] Xr Imaging Referral ID Status Reason Start Date Expiration Date V isits Requested Visits Authorized [id number] Closed Auto-Generate d Referral 06/15/2022 07/15/2023 1 1 [facility] for referral (narrative)* Outpatient Procedure (Routine) - Authorized Specialty Diagnoses / Procedures Referred By Contac t Referred To Contact [facility] Diagnoses Bilateral carotid artery stenosis Procedures US CAROTID ARTERIES [facility] DUPLEX SCAN EXTRACRANIAL ART COMPL BI STUDY Lia Markham MD [address] [place] [address] [facility] [address] [place] [address] Referral ID Status Reason Start Date Expiration Date Visits Requested Visits Authorized [id number] Authorized Auto-Generat ed Referral 08/20/2022 08/20/2023 1 1 * Diagnostic Procedure Only (Routine) - Authorized Specialty Diagnoses / Procedures Referred By Contac t Referred To Contact US IMAGING Diagnoses Abdominal aortic aneurysm (AAA) without rupture Procedures US DOPPLER AORTA DUP-SCAN ARTL DANIS ABDL/PEL/SCROT&/RPR ORGN LMT Lia Markham MD [address] [place] [address] [facility] Imaging Referral ID Status Reason Start Date Expiration Date Visits Requested Visits Authorized [id number] Authorized Auto-Generat ed Referral 08/20/2022 09/19/2023 1 1 * Diagnostic Procedure Only (Routine) - Authorized Specialty Diagnoses / Procedures Referred By Contac t Referred To Contact US IMAGING Diagnoses Abdominal aortic aneurysm (AAA) without rupture Procedures US ABD AORTA US RETROPERITONEAL REAL TIME W/IMAGE LIMITED Lia Markham MD [address] [place] [address] [facility] Imaging Referral ID Status Reason Start Date Expiration Date Visits Requested Visits Authorized [id number] Authorized Auto-Generat ed Referral 08/20/2022 09/19/2023 1 1 [facility] for referral (narrative)* Diagnostic Procedure Only (Routine) - Closed Specialty Diagnoses / Procedures Referred By Contac t Referred To Contact US IMAGING Diagnoses Abdominal aortic aneurysm (AAA) without rupture Procedures US DOPPLER AORTA DUP-SCAN ARTL DANIS ABDL/PEL/SCROT&/RPR ORGN LMT Lia Markham MD [address] [place] [address] [facility] Imaging Referral ID Status Reason Start Date Expiration Date V isits Requested Visits Authorized [id number] Closed Auto-Generate d Referral 08/20/2022 09/19/2023 1 1 * Diagnostic Procedure Only (Routine) - Closed Specialty Diagnoses / Procedures Referred By Contac t Referred To Contact US IMAGING Diagnoses Abdominal aortic aneurysm (AAA) without rupture Procedures US ABD AORTA US RETROPERITONEAL REAL TIME W/IMAGE LIMITED Lia Markham MD [address] [place] [address] Us Imaging Referral ID Status Reason Start Date Expiration Date V isits Requested Visits Authorized [id number] Closed Auto-Generate d Referral 08/20/2022 09/19/2023 1 1 [facility] for referral (narrative)* Outpatient Procedure (Routine) - Authorized Specialty Diagnoses / Procedures Referred By Contac t Referred To Contact [facility] Diagnoses SOB (shortness of breath) Procedures SPIROMETRY WITH DILATOR IF OBSTRUCTED BRNCDILAT RSPSE SPMTRY PRE&POST-BRNCDILAT ADMN Lia Markham MD [address] [place] [address] Res[facility] [place] [address] [place] [address] Referral ID Status Reason Start Date Expiration Date Visits Requested Visits Authorized [id number] Authorized Auto-Generat ed Referral 2 10/03/2023 1 1 * Outpatient Procedure (Routine) - Authorized Specialty Diagnoses / Procedures Referred By Contac t Referred To [facility] RESPIRATORY [facility]OTH Diagnoses SOB (shortness of breath) Procedures LUNG DIFFUSION CAPACITY (DLCO) DIFFUSING CAPACITY Lia Markham MD [address] [place] [address] [address] Referral ID Status Reason Start Date Expiration Date Visits Requested Visits Authorized [id number] Authorized Auto-Generat ed Referral 2 10/03/2023 1 1 * Outpatient Procedure (Routine) - Authorized Specialty Diagnoses / Procedures Referred By Contac t Referred To [facility] RESPIRATORY [facility]OTH Diagnoses SOB (shortness of breath) Procedures LUNG VOLUMES Lia Markham MD [address] [place] [address] [address] Referral ID Status Reason Start Date Expiration Date Visits Requested Visits Authorized [id number] Authorized Auto-Generat ed Referral 2 10/03/2023 1 1 * Outpatient Procedure (Routine) - Authorized Specialty Diagnoses / Procedures Referred By Contac t Referred To [facility] Diagnoses SOB (shortness of breath) Procedures ECG COMPLETE ECG ROUTINE ECG W/LEAST 12 LDS W/I&R Lia Markham MD [address] [place] [address] [facility] Vascular [address] [address] Referral ID Status Reason Start Date Expiration Date Visits Requested Visits Authorized [id number] Authorized Auto-Generat ed Referral 2 09/03/2023 1 1 [facility] for referral (narrative)* Diagnostic Procedure Only (Routine) - Authorized Specialty Diagnoses / Procedures Referred By Contac t Referred To Contact US IMAGING Diagnoses Abdominal aortic aneurysm (AAA) without rupture, unspecified part (HCC) Procedures US DOPPLER AORTA DUP-SCAN ARTL DANIS ABDL/PEL/SCROT&/RPR ORGN LMT Lia Markham MD [address] [place] [address] [facility] Referral ID Status Reason Start Date Expiration Date Visits Requested Visits Authorized [id number] Authorized Auto-Generat ed Referral 3 10/13/2024 1 1 * Diagnostic Procedure Only (Routine) - Authorized Specialty Diagnoses / Procedures [facility] Diagnoses Abdominal aortic aneurysm (AAA) without rupture, unspecified part (HCC) Procedures US ABD AORTA US RETROPERITONEAL REAL TIME W/IMAGE LIMITED Lia Markham MD [address] [place], [place] [id number] [facility] Referral ID Status Reason Start Date Expiration Date Visits Requested Visits Authorized [id number] Authorized Auto-Generat ed Referral 3 10/13/2024 1 1 * Consult, Test, Treat (Routine) - Authorized Specialty Diagnoses / Procedures [facility] Contact Neurology Diagnoses Cerebrovascular accident (CVA), unspecified mechanism (HCC) Infarction of thalamus (HCC) Procedures CONSULT TO NEUROLOGY OFFICE/OUTPATIENT [facility] 60-74 MINUTES Lia Markham MD [address] [place] [address] Referral ID Status Reason Start Date Expiration Date Visits Requested Visits Authorized [id number] Authorized PCP Requested Referral 3 09/13/2024 1 1 * Occupational Therapy (Routine) - Authorized Specialty Diagnoses / Procedures Referred By Contac t Referred To Contact [facility] Diagnoses History of stroke with residual effects Procedures CONSULT TO FLOTATION OPERATOR OCCUPATIONAL THERAPY EVAL HIGH COMPLEX 60 MINS Lia Markham MD [address] [place] [address] [address] Referral ID Status Reason Start Date Expiration Date Visits Requested Visits Authorized [id number] Authorized PCP Requested Referral Auto-Generate d Referral 3 09/13/2024 99 99 * Speech Therapy (Routine) - Authorized Specialty Diagnoses / Procedures Referred By Starr t Referred To Contact [facility] Diagnoses History of stroke with residual effects Procedures CONSULT TO SPEECH THERAPY OFFICE/OUTPATIENT [facility] 60-74 MINUTES Lia Markham MD [address] [place] [address] [address] Referral ID Status Reason Start Date Expiration Date Visits Requested Visits Authorized [id number] Authorized Auto-Generat ed Referral 3 09/13/2024 99 99 * Physical Therapy (Routine) - Authorized Specialty Diagnoses / Procedures Referred By Starr yung Referred To Contact [facility] Diagnoses History of stroke with residual effects Procedures CONSULT TO PHYSICAL THERAPY PHYSICAL THERAPY EVALUATION HIGH COMPLEX 45 MINS Lia Markham MD [address] [place] [address] [address] Referral ID Status Reason Start Date Expiration Date Visits Requested Visits Authorized [id number] Authorized PCP Requested Referral Auto-Generate d Referral 3 09/13/2024 99 99 [facility] for referral (narrative)* Diagnostic Procedure Only (Routine) - Closed Specialty Diagnoses / Procedures Referred By Starr t Referred To Contact US IMAGING Diagnoses Abdominal aortic aneurysm (AAA) without rupture, unspecified part (HCC) Procedures US DOPPLER AORTA DUP-SCAN ARTL DANIS ABDL/PEL/SCROT&/RPR ORGN LMT Lia Markham MD [address] [place] [address] [place] [address] Referral ID Status Reason Start Date Expiration Date V isits Requested Visits Authorized [id number] Closed Auto-Generate d Referral 09/14/2023 10/13/2024 1 1 * Diagnostic Procedure Only (Routine) - Closed Specialty Diagnoses / Procedures Referred By Starr t Referred To Contact US IMAGING Diagnoses Abdominal aortic aneurysm (AAA) without rupture, unspecified part (HCC) Procedures US ABD AORTA US RETROPERITONEAL REAL TIME W/IMAGE LIMITED Lia Markham MD [address] [place] [address] [place] [address] Referral ID Status Reason Start Date Expiration Date V isits Requested Visits Authorized [id number] Closed Auto-Generate d Referral 09/14/2023 10/13/2024 1 1 [facility] Advance Directives No Advanced Directives Records FoundDocuments on File Type Date Recorded Patient Build And Release Manager Expl anation Advance Directive(s) 10/06/2021 6:19 AM Advance Directive(s) 09/15/2021 10:31 AM Advance Directive(s) 06/06/2017 8:13 AM Documents on File Type Date Recorded Patient Build And Release Manager Expl anation Advance Directive(s) 10/06/2021 6:19 AM [...] unspecified laterality Procedures CONSULT TO PODIATRY OFFICE/OUTPATIENT [facility] 60-[place] [address] [place] [address] Referral ID Status Reason Start Date Expiration Date Visits Requested Visits Authorized [id number] Authorized PCP Requested Referral 06/25/2022 06/25/2023 1 1 Specialty Diagnoses / Procedures Referred By Contac t Referred To Contact CT IMAGING Diagnoses Lung fibrosis (HCC) SOB (shortness of breath) Procedures CT CHEST WO IVCON DIAGNOSTIC COMPUTED TOMOGRAPHY THORAX W/O CNTRST Lia Markham MD [address] [place] [address] [address] [address] Referral ID Status Reason Start Date Expiration Date V isits Requested Visits Authorized [id number] Closed Auto-Generate d Referral 09/03/2022 10/03/2023 1 1 Specialty Diagnoses / Procedures Referred By Contac t Referred To Contact Pulmonary and Critical Care Medicine Diagnoses SOB (shortness of breath) Procedures CONSULT TO PULM/CRITICAL CARE OFFICE/OUTPATIENT [facility] 60-74 MINUTES Lia Markham MD [address] [place] [address] Referral ID Status Reason Start Date Expiration Date Visits Requested Visits Authorized [id number] Authorized PCP Requested Referral 09/07/2023 1 1 Specialty Diagnoses / Procedures Referred By Contac t Referred To Contact Urology Diagnoses Post-void dribbling Procedures CONSULT TO UROLOGY Lia Markham MD [address] [place] [address] Referral ID Status Reason Start Date Expiration Date Visits Requested Visits Authorized [id number] Ref Not Required PCP Requested Referral 02/11/2023 02/11/2024 1 1 Specialty Diagnoses / Procedures Referred By Contac t Referred To Contact CT IMAGING Diagnoses Former cigarette smoker Procedures CT LUNG SCREEN WO IVCON COMPUTED TOMOGRAPHY THORAX LW DOSE LNG CA SCR C- Adnres Dotson, ESTIMATOR PRINTING.SEQUINS SPOOL[employer] [address] [place] [address] Ct Imaging [facility] Referral ID Status Reason Start Date Expiration Date Visits Requested Visits Authorized [id number] Authorized Auto-Generat ed Referral 3 10/19/2024 1 1 Specialty Diagnoses / Procedures Referred By Starr yung Referred To Contact CT IMAGING Diagnoses Personal history of tobacco use, presenting hazards to health Procedures CT LUNG SCREEN WO IVCON COMPUTED TOMOGRAPHY THORAX LW DOSE LNG CA SCR Nikia- Angeles Lopez, ESTIMATOR PRINTING.SEQUINS SPOOLER [address] [place] [id number] Ct Imaging [facility] Referral ID Status Reason Start Date Expiration Date Visits Requested Visits Authorized [id number] Pending Review Auto-Generat ed Referral 09/29/2023 10/28/2024 [...] or prosecute any alcohol or drug abuse patient.[facility] the event this information is protected by the Federal Confidentiality of Alcohol and Drug Abuse Patient Records regulations: The Federal rules restrict any use of the information to criminally investigate or prosecute any alcohol or drug abuse patient.[facility] the event this information is protected by the Federal Confidentiality of Alcohol and Drug Abuse Patient Records regulations: The Federal rules restrict any use of the information to criminally investigate or prosecute any alcohol or drug abuse patient.[facility] the event this information is protected by the Federal Confidentiality of Alcohol and Drug Abuse Patient Records regulations: The Federal rules restrict any use of the information to criminally investigate or prosecute any alcohol or drug abuse patient.[facility] the event this information is protected by the Federal Confidentiality of Alcohol and Drug Abuse Patient Records regulations: The Federal rules restrict any use of the information to criminally investigate or prosecute any alcohol or drug abuse patient.[facility] the event this information is protected by the Federal Confidentiality of Alcohol and Drug Abuse Patient Records regulations: The Federal rules restrict any use of the information to criminally investigate or prosecute any alcohol or drug abuse patient.[facility] the event this information is protected by the Federal Confidentiality of Alcohol and Drug Abuse Patient Records regulations: The Federal rules restrict any use of the information to criminally investigate or prosecute any alcohol or drug abuse patient.[facility] the event this information is protected by the Federal Confidentiality of Alcohol and Drug Abuse Patient Records regulations: The Federal rules restrict any use of the information to criminally investigate or prosecute any alcohol or drug abuse patient.[facility] the event this information is protected by the Federal Confidentiality of Alcohol and Drug Abuse Patient Records regulations: The Federal rules restrict any use of the information to criminally investigate or prosecute any alcohol or drug abuse patient.[facility] the event this information is protected by the Federal Confidentiality of Alcohol and Drug Abuse Patient Records regulations: The Federal rules restrict any use of the information to criminally investigate or prosecute any alcohol or drug abuse patient.[facility] the event this information is protected by the Federal Confidentiality of Alcohol and Drug Abuse Patient Records regulations: The Federal rules restrict any use of the information to criminally investigate or prosecute any alcohol or drug abuse patient.[facility] the event this information is protected by the Federal Confidentiality of Alcohol and Drug Abuse Patient Records regulations: The Federal rules restrict any use of the information to criminally investigate or prosecute any alcohol or drug abuse patient.[facility] the event this information is protected by the Federal Confidentiality of Alcohol and Drug Abuse Patient Records regulations: The Federal rules restrict any use of the information to criminally investigate or prosecute any alcohol or drug abuse patient.[facility] the event this information is protected by the Federal Confidentiality of Alcohol and Drug Abuse Patient Records regulations: The Federal rules restrict any use of the information to criminally investigate or prosecute any alcohol or drug abuse patient.[facility] the event this information is protected by the Federal Confidentiality of Alcohol and Drug Abuse Patient Records regulations: The Federal rules restrict any use of the information to criminally investigate or prosecute any alcohol or drug abuse patient.[facility] the event this information is protected by the Federal Confidentiality of Alcohol and Drug Abuse Patient Records regulations: The Federal rules restrict any use of the information to criminally investigate or prosecute any alcohol or drug abuse patient.[facility] the event this information is protected by the Federal Confidentiality of Alcohol and Drug Abuse Patient Records regulations: The Federal rules restrict any use of the information to criminally investigate or prosecute any alcohol or drug abuse patient.[facility] the event this information is protected by the Federal Confidentiality of Alcohol and Drug Abuse Patient Records regulations: The Federal rules restrict any use of the information to criminally investigate or prosecute any alcohol or drug abuse patient.[facility] the event this information is protected by the Federal Confidentiality of Alcohol and Drug Abuse Patient Records regulations: The Federal rules restrict any use of the information to criminally investigate or prosecute any alcohol or drug abuse patient.[facility] the event this information is protected by the Federal Confidentiality of Alcohol and Drug Abuse Patient Records regulations: The Federal rules restrict any use of the information to criminally investigate or prosecute any alcohol or drug abuse patient.[facility] the event this information is protected by the Federal Confidentiality of Alcohol and Drug Abuse Patient Records regulations: The Federal rules restrict any use of the information to criminally investigate or prosecute any alcohol or drug abuse patient.[facility] the event this information is protected by the Federal Confidentiality of Alcohol and Drug Abuse Patient Records regulations: The Federal rules restrict any use of the information to criminally investigate or prosecute any alcohol or drug abuse patient.[facility] the event this information is protected by the Federal Confidentiality of Alcohol and Drug Abuse Patient Records regulations: The Federal rules restrict any use of the information to criminally investigate or prosecute any alcohol or drug abuse patient.[facility] the event this information is protected by the Federal Confidentiality of Alcohol and Drug Abuse Patient Records regulations: The Federal rules restrict any use of the information to criminally investigate or prosecute any alcohol or drug abuse patient.[facility] the event this information is protected by the Federal Confidentiality of Alcohol and Drug Abuse Patient Records regulations: The Federal rules restrict any use of the information to criminally investigate or prosecute any alcohol or drug abuse patient.[facility] the event this information is protected by the Federal Confidentiality of Alcohol and Drug Abuse Patient Records regulations: The Federal rules restrict any use of the information to criminally investigate or prosecute any alcohol or drug abuse patient.[facility] the event this information is protected by the Federal Confidentiality of Alcohol and Drug Abuse Patient Records regulations: The Federal rules restrict any use of the information to criminally investigate or prosecute any alcohol or drug abuse patient.[facility] the event this information is protected by the Federal Confidentiality of Alcohol and Drug Abuse Patient Records regulations: The Federal rules restrict any use of the information to criminally investigate or prosecute any alcohol or drug abuse patient.[facility] the event this information is protected by the Federal Confidentiality of Alcohol and Drug Abuse Patient Records regulations: The Federal rules restrict any use of the information to criminally investigate or prosecute any alcohol or drug abuse patient.[facility] the event this information is protected by the Federal Confidentiality of Alcohol and Drug Abuse Patient Records regulations: The Federal rules restrict any use of the information to criminally investigate or prosecute any alcohol or drug abuse patient.[facility] the event this information is protected by the Federal Confidentiality of Alcohol and Drug Abuse Patient Records regulations: The Federal rules restrict any use of the information to criminally investigate or prosecute any alcohol or drug abuse patient.[facility] the event this information is protected by the Federal Confidentiality of Alcohol and Drug Abuse Patient Records regulations: The Federal rules restrict any use of the information to criminally investigate or prosecute any alcohol or drug abuse patient.[facility] the event this information is protected by the Federal Confidentiality of Alcohol and Drug Abuse Patient Records regulations: The Federal rules restrict any use of the information to criminally investigate or prosecute any alcohol or drug abuse patient.[facility] the event this information is protected by the Federal Confidentiality of Alcohol and Drug Abuse Patient Records regulations: The Federal rules restrict any use of the information to criminally investigate or prosecute any alcohol or drug abuse patient.[facility] the event this information is protected by the Federal Confidentiality of Alcohol and Drug Abuse Patient Records regulations: The Federal rules restrict any use of the information to criminally investigate or prosecute any alcohol or drug abuse patient.[facility] the event this information is protected by the Federal Confidentiality of Alcohol and Drug Abuse Patient Records regulations: The Federal rules restrict any use of the information to criminally investigate or prosecute any alcohol or drug abuse patient.[facility] the event this information is protected by the Federal Confidentiality of Alcohol and Drug Abuse Patient Records regulations: The Federal rules restrict any use of the information to criminally investigate or prosecute any alcohol or drug abuse patient.[facility] the event this information is protected by the Federal Confidentiality of Alcohol and Drug Abuse Patient Records regulations: The Federal rules restrict any use of the information to criminally investigate or prosecute any alcohol or drug abuse patient.[facility] the event this information is protected by the Federal Confidentiality of Alcohol and Drug Abuse Patient Records regulations: The Federal rules restrict any use of the information to criminally investigate or prosecute any alcohol or drug abuse patient.[facility] the event this information is protected by the Federal Confidentiality of Alcohol and Drug Abuse Patient Records regulations: The Federal rules restrict any use of the information to criminally investigate or prosecute any alcohol or drug abuse patient.[facility] the event this information is protected by the Federal Confidentiality of Alcohol and Drug Abuse Patient Records regulations: The Federal rules restrict any use of the information to criminally investigate or prosecute any alcohol or drug abuse patient.[facility] the event this information is protected by the Federal Confidentiality of Alcohol and Drug Abuse Patient Records regulations: The Federal rules restrict any use of the information to criminally investigate or prosecute any alcohol or drug abuse patient.[facility] the event this information is protected by the Federal Confidentiality of Alcohol and Drug Abuse Patient Records regulations: The Federal rules restrict any use of the information to criminally investigate or prosecute any alcohol or drug abuse patient.[facility] the event this information is protected by the Federal Confidentiality of Alcohol and Drug Abuse Patient Records regulations: The Federal rules restrict any use of the information to criminally investigate or prosecute any alcohol or drug abuse patient.[facility] the event this information is protected by the Federal Confidentiality of Alcohol and Drug Abuse Patient Records regulations: The Federal rules restrict any use of the information to criminally investigate or prosecute any alcohol or drug abuse patient.[facility] the event this information is protected by the Federal Confidentiality of Alcohol and Drug Abuse Patient Records regulations: The Federal rules restrict any use of the information to criminally investigate or prosecute any alcohol or drug abuse patient.[facility] the event this information is protected by the Federal Confidentiality of Alcohol and Drug Abuse Patient Records regulations: The Federal rules restrict any use of the information to criminally investigate or prosecute any alcohol or drug abuse patient.[facility] the event this information is protected by the Federal Confidentiality of Alcohol and Drug Abuse Patient Records regulations: The Federal rules restrict any use of the information to criminally investigate or prosecute any alcohol or drug abuse patient.[facility] the event this information is protected by the Federal Confidentiality of Alcohol and Drug Abuse Patient Records regulations: The Federal rules restrict any use of the information to criminally investigate or prosecute any alcohol or drug abuse patient.[facility] the event this information is protected by the Federal Confidentiality of Alcohol and Drug Abuse Patient Records regulations: The Federal rules restrict any use of the information to criminally investigate or prosecute any alcohol or drug abuse patient.[facility] the event this information is protected by the Federal Confidentiality of Alcohol and Drug Abuse Patient Records regulations: The Federal rules restrict any use of the information to criminally investigate or prosecute any alcohol or drug abuse patient.[facility] the event this information is protected by the Federal Confidentiality of Alcohol and Drug Abuse Patient Records regulations: The Federal rules restrict any use of the information to criminally investigate or prosecute any alcohol or drug abuse patient.[facility] the event this information is protected by the Federal Confidentiality of Alcohol and Drug Abuse Patient Records regulations: The Federal rules restrict any use of the information to criminally investigate or prosecute any alcohol or drug abuse patient.[facility] the event this information is protected by the Federal Confidentiality of Alcohol and Drug Abuse Patient Records regulations: The Federal rules restrict any use of the information to criminally investigate or prosecute any alcohol or drug abuse patient.[facility] the event this information is protected by the Federal Confidentiality of Alcohol and Drug Abuse Patient Records regulations: The Federal rules restrict any use of the information to criminally investigate or prosecute any alcohol or drug abuse patient.[facility] the event this information is protected by the Federal Confidentiality of Alcohol and Drug Abuse Patient Records regulations: The Federal rules restrict any use of the information to criminally investigate or prosecute any alcohol or drug abuse patient.[facility] the event this information is protected by the Federal Confidentiality of Alcohol and Drug Abuse Patient Records regulations: The Federal rules restrict any use of the information to criminally investigate or prosecute any alcohol or drug abuse patient.[facility] the event this information is protected by the Federal Confidentiality of Alcohol and Drug Abuse Patient Records regulations: The Federal rules restrict any use of the information to criminally investigate or prosecute any alcohol or drug abuse patient.[facility] Reason for Visit (unrecogniz ed section and [...] REAL TIME W/IMAGE LIMITED Lia Markham MD [address] [place] [address] [facility] Referral ID Status Reason Start Date Expiration Date V isits Requested Visits Authorized [id number] Closed Auto-Generate d Referral 08/20/2022 09/19/2023 1 1 Reason Comments Breathing Problem Reason Comments Shortness of Breath SOB on exertion X 1 yr Reason Comments Spirometry Specialty Diagnoses / Procedures Referred By Contac t Referred To Contact [facility] Diagnoses SOB (shortness of breath) Procedures SPIROMETRY WITH DILATOR IF OBSTRUCTED BRNCDILAT RSPSE SPMTRY PRE&POST-BRNCDILAT ADMN Lia Markham, MD [address] [place] [address] [facility] [address] [place] [id number] Referral ID Status Reason Start Date Expiration Date V isits Requested Visits Authorized [id number] Closed Auto-Generate d Referral 09/03/2022 10/03/2023 1 1 Specialty Diagnoses / Procedures Referred By Contac t Referred To Contact [facility] Diagnoses SOB (shortness of breath) Procedures LUNG VOLUMES Lia Markham MD [address] [place] [address] [facility] [address] [place] [id number] Referral ID Status Reason Start Date Expiration Date V isits Requested Visits Authorized [id number] Closed Auto-Generate d Referral 09/03/2022 10/03/2023 [address] Specialty Diagnoses / Procedures Referred By Contac t Referred To Contact CT IMAGING Diagnoses Lung fibrosis (HCC) SOB (shortness of breath) Procedures CT CHEST WO IVCON DIAGNOSTIC COMPUTED TOMOGRAPHY THORAX W/O CNTRST Lia Markham MD [address] [place] [address] Ct Imaging Referral ID Status Reason Start Date Expiration Date V isits Requested Visits Authorized [id number] Closed Auto-Generate d Referral 09/03/2022 10/03/2023 1 1 Reason Comments Results Reason Comments Consult Reason Comments fax request Reason Comments New Patient Dyspnea Shortness of Breath Specialty Diagnoses / Procedures Referred By Contac t Referred To Contact Pulmonary and Critical Care Medicine Diagnoses SOB (shortness of breath) Procedures CONSULT TO PULM/CRITICAL CARE OFFICE/OUTPATIENT NEW HIGH MDM 60-74 MINUTES Lia Markham MD [address] [place] [address] Referral ID Status Reason Start Date Expiration Date V isits Requested Visits Authorized [id number] Closed PCP Requested Referral 09/07/2022 09/07/2023 1 [...] TIME W/IMAGE LIMITED Lia Markham MD [address] [place] [address] [place] [address] Referral ID Status Reason Start Date Expiration Date V isits Requested Visits Authorized [id number] Closed Auto-Generate d Referral 09/14/2023 10/13/2024 1 1 Reason Comments Patient Update Care Teams (unrecognized sec tion and content) 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 Start Date End Date Lia Markham MD [address] [place] [address] PCP - General Family Practice 09/27/12 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 Start Date End Date Lia Markham MD [address] [place] [address] PCP - General Family Practice 09/27/12 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 Start Date End Date Lia Markham MD [address] [place] [address] PCP - General Family Practice 09/27/12 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 Start Date End Date Lia Markham MD [address] [place] [address] PCP - General Family Practice 09/27/12 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 Start Date End Date Lia Markham MD [address] [place] [address] PCP - General Family Practice 09/27/12 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 Start Date End Date Lia Markham MD [address] [place] [address] PCP - General Family Practice 09/27/12 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 Start Date End Date Lia Markham MD [address] [place] [id number] PCP - General Family Practice 09/27/12 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 Start Date End Date Lia Markham MD [address] [place] [place] [address] PCP - General Family Practice 09/27/12 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 Start Date End Date Lia Markham MD [address] [place] [place] [address] PCP - General Family Practice 09/27/12 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 Start Date End Date Lia Markham MD [address] [place] [place] [address] PCP - General Family Medicine 09/27/12 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 Start Date End Date Lia Markham MD [address] [place] [address] PCP - General Family Medicine 09/27/12 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 Start Date End Date Lia Markham MD [address] [place] [address] PCP - General Family Medicine 09/27/12 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 Start Date End Date Lia Markham MD [address] [place] [address] PCP - General Family Medicine 09/27/12 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 Start Date End Date Lia Markham MD [address] [place] [address] PCP - General Family Medicine 09/27/12 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 Start Date End Date Lia Markham MD [address] [place] [address] PCP - General Family Medicine 09/27/12 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 Start Date End Date Lia Markham MD [address] [place] [address] PCP - General Family Medicine 09/27/12 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 Start Date End Date Lia Markham MD [address] [place] [address] PCP - General Family Medicine 09/27/12 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 Start Date End Date Lia Markham MD [address] [place] [address] PCP - General Family Medicine 09/27/12 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 Start Date End Date Lia Markham MD [address] [place] [address], [place] [address] PCP - General Family Medicine 09/27/12 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 Start Date End Date Lia Markham MD [address] [place] [address], [place] [address] PCP - General Family Medicine 09/27/12 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 [place] [address] [place] [address], [place] [address] PCP - General Family Medicine 09/27/12 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 Start Date End Date Lia Markham MD [address] [place] [address], [place] [address] PCP - General Family Medicine 09/27/12 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 Start Date End Date Lia Markham MD [address] [place] [place] [address] PCP - General Family Medicine 09/27/12 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 Start Date End Date Lia Markham MD [address] [place] [address], [place] [address] PCP - General Family Medicine 09/27/12 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 Start Date End Date Lia Markham MD [address] [place] [address] PCP - General Family Medicine 09/27/12 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 Start Date End Date Lia Markham MD [address] [place] [address] PCP - General Family Medicine 09/27/12 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 Start Date End Date Lia Markham MD [address] [place] [address] PCP - General Family Medicine 09/27/12 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 Start Date End Date Lia Markham MD [address] [place] [address] PCP - General Family Medicine 09/27/12 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 Start Date End Date Lia Markham MD [address] [place] [address] PCP - General Family Medicine 09/27/12 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 Start Date End Date Lia Markham MD [address] [place] [address] PCP - General Family Medicine 09/27/12 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 Start Date End Date Lia Markham MD [address] [place] [address] PCP - General Family Medicine 09/27/12 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 Start Date End Date Lia Markham MD [address] [place] [address] PCP - General Family Medicine 09/27/12 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 Start Date End Date Lia Markham MD [address] [place] [address] PCP - General Family Medicine 09/27/12 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 Start Date End Date Lia Markham MD [address] [place] [address] PCP - General Family Medicine 09/27/12 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 Start Date End Date Lia Markham MD [address] [place] [address] PCP - General Family Medicine 09/27/12 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 Start Date End Date Lia Markahm MD [address] [place] [address] PCP - General Family Medicine 09/27/12 Carly Banks MD [address] [place] [address] Pulmonary and Critical Care Medicine 09/20/23 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 Start Date End Date Lia Markham MD [address] [place] [address] PCP - General Family Medicine 09/27/12 Carly Banks MD [address] [place] [address] Pulmonary and Critical Care Medicine 09/20/23 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 Start Date End Date Lia Markham MD [address] [place] [address] PCP - General Family Medicine 09/27/12 Carly Banks MD [address] [place] [address] Pulmonary and Critical Care Medicine 09/20/23 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 Start Date End Date Lia Markham MD [address] [place] [address] PCP - General Family Medicine 09/27/12 Carly Banks MD [address] [place] [address] Pulmonary and Critical Care Medicine 09/20/23 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 Start Date End Date Lia Markham MD [address] [place] [address] PCP - General Family Medicine 09/27/12 Carly Banks MD [address] [place] [address] Pulmonary and Critical Care Medicine 09/20/23 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 Start Date End Date Lia Markham MD [address] [place] [address] PCP - General Family Medicine 09/27/12 Carly Banks MD [address] [place] [address] Pulmonary and Critical Care Medicine 09/20/23 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 Start Date End Date Lia Markham MD [address] [place] [address] PCP - General Family Medicine 09/27/12 Carly Banks MD [address] [place] [address] Pulmonary and Critical Care Medicine 09/20/23 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 [employer] provides no warranty or guarantee of the accuracy or completeness of information in this document.
== END | disposition home or self-care (01) ==
LOC: NM 12:46
PROVIDERS: PCP Family Medicine; Referring Provider Internal Medicine Gastroenterology; Visit Provider Internal Medicine Gastroenterology
DX: K31.84 Gastroparesis (principal); K80.50 Calculus of bile duct without cholangitis or cholecystitis without obstruction; K75.89 Other specified inflammatory liver diseases
CPT/HCPCS: 78264; A9541

== ENCOUNTER → 2023-12-09 | Outpatient (CLI) | payer MEDICARE, OTHER, SELFPAY ==
--- NOTE | 2023-12-09 13:20 | RAD_ITS ---
STUDY: X-RAY - ABDOMEN/PELVIS REASON FOR EXAM: Male, 68 years old. SITZ day 5 TECHNIQUE: Two AP supine views of the abdomen and pelvis. COMPARISON: 12/07/2023 FINDINGS: Day 5 Sitz yoon study. There are 2 remaining Sitzmarks likely within the distal sigmoid and/or rectum down from approximately 19 on the previous study. There is an abundance of fecal material throughout the colon. There is no demonstrated free abdominal air. Hyperdensity noted over the right iliac likely ingested medication Stable appearance of a right-sided biliary stents. The visualized liver, spleen and kidneys are grossly normal in size and morphology. Normal soft tissue structures. Normal visualized osseous structures. RAD/Abdomen Single View IMPRESSION: 2 Sitzmarks remain likely in the distal sigmoid and or rectum Retained stool. Stable biliary stent Electronically Signed: Júnior Parker MD at 14:12 EST ,
--- OUTSIDE RECORDS SUMMARY | 2023-12-09 13:39 | XMS RPT_ITS | CCD ---
Author Name Unknown Address [address] [place] [address] Organization [facility] Care Team Providers Care Metal Expediter Name Role Phone Lia Markham MD Primary Care Provider Lia Markham MD Primary Care Provider Carly Banks MD Unavailable LIA MARKHAM Referring Unavailable LIA MARKHAM Primary Care Unavailable LIA MARKHAM Primary Care Unavailable LIA MARKHAM Attending Unavailable ANDRES DOTSON Referring Unavailable SHAHRZAD, LIA Babin Primary Care Unavailable LIA MARKHAM Referring Unavailable LIA MARKHAM Primary Care Unavailable ANDRES DOTSON Attending Unavailable CARLY BANKS Referring Unavailable LIA MARKHAM Primary Care Unavailable LIA MARKHAM Primary Care Unavailable YOLY ORNELAS Attending Unavailable LIA MARKHAM Primary Care Unavailable YOLY ORNELAS Referring Unavailable LIA MARKHAM Primary Care Unavailable LIA MARKHAM Attending Unavailable LIA MARKHAM Attending Unavailable LIA MARKHAM Primary Care Unavailable LIA MARKHAM Primary Care Unavailable YOLY ORNELAS Attending Unavailable LIA MARKHAM Primary Care Unavailable Vital Signs Date Time Vital Sign Value Performing Clinician Faci lity 10-05-2023 11:42-0500 Body height 182.2 cm Lia Markham MD Work Phone: [facility] 10-05-2023 11:42-0500 Body weight 102.88 kg Lia Markham MD Work Phone: [facility] 10-05-2023 11:42-0500 Diastolic blood pressure 66 mm[Hg] Lia Markham MD Work Phone: [facility] 10-05-2023 11:42-0500 Heart rate 96 /min Lia Markham MD Work Phone: [facility] 10-05-2023 11:42-0500 Systolic blood pressure 102 mm[Hg] Lia Markham MD Work Phone: [facility] 09-20-2023 10:36-0400 Body weight 102.06 kg Andres Houston FLORIST MANAGER.SPORTS TEAM MANAGER Work Phone: [facility] 09-20-2023 10:36-0400 Diastolic blood pressure 82 mm[Hg] Andres Houston FLORIST MANAGER.SPORTS TEAM MANAGER Work Phone: [facility] 09-20-2023 10:36-0400 Heart rate 100 /min Andres Houston FLORIST MANAGER.SPORTS TEAM MANAGER Work Phone: [facility] 09-20-2023 10:36-0400 SaO2% (BldA) [Mass fraction] 96 % Andres Houston FLORIST MANAGER.SPORTS TEAM MANAGER Work Phone: [facility] 09-20-2023 10:36-0400 Systolic blood pressure 144 mm[Hg] Andres Houston FLORIST MANAGER.SPORTS TEAM MANAGER Work Phone: [facility] 09-15-2023 13:24-0400 Body height 182.2 cm Yoly Ilya PA-C Work Phone: [facility] 09-15-2023 13:24-0400 Body weight 104.78 kg Yoly Ilya PA-C Work Phone: [facility] 09-15-2023 13:24-0400 Diastolic blood pressure 74 mm[Hg] Yoly Ilya PA-C Work Phone: [facility] 09-15-2023 13:24-0400 Heart rate 78 /min Yoly Ilya PA-C Work Phone: [facility] 09-15-2023 13:24-0400 Respiratory rate 16 /min Yoly Ilya PA-C Work Phone: [facility] 09-15-2023 13:24-0400 SaO2% (BldA) [Mass fraction] 96 % Yoly Ornelas PA-C Work Phone: [facility] 09-15-2023 13:24-0400 Systolic blood pressure 130 mm[Hg] Yoly HERNANDEZ-Nikia Work Phone: [facility] 09-14-2023 14:24-0400 Body height 182.2 cm Lia Markham MD Work Phone: [facility] 09-14-2023 14:24-0400 Body weight 105.14 kg Lia Markham MD Work Phone: [facility] 09-14-2023 14:24-0400 Diastolic blood pressure 56 mm[Hg] Lia Markham MD Work Phone: [facility] 09-14-2023 14:24-0400 Heart rate 84 /min Lia Markham MD Work Phone: [facility] 09-14-2023 14:24-0400 SaO2% (BldA) [Mass fraction] 95 % Lia Markham MD Work Phone: [facility] 09-14-2023 14:24-0400 Systolic blood pressure 108 mm[Hg] Lia Markham MD Work Phone: [facility] 10-22-2022 14:16-0500 Body height 182.2 cm Lia Markham MD Work Phone: [facility] 10-22-2022 14:16-0500 Body weight 109.14 kg Lia Markham MD Work Phone: [facility] 10-22-2022 14:16-0500 Diastolic blood pressure 66 mm[Hg] Lia Markham MD Work Phone: [facility] 10-22-2022 14:16-0500 Heart rate 87 /min Lia Markham MD Work Phone: [facility] 10-22-2022 14:16-0500 SaO2% (BldA) [Mass fraction] 95 % Lia Markham MD Work Phone: [facility] 10-22-2022 14:16-0500 Systolic blood pressure 134 mm[Hg] Lia Markham MD Work Phone: [facility] 10-22-2022 08:03-0500 Body weight 109.77 kg Carly Banks MD Work Phone: [facility] 10-22-2022 08:03-0500 Diastolic blood pressure 78 mm[Hg] Carly Banks MD Work Phone: [facility] 10-22-2022 08:03-0500 Heart rate 97 /min Carly Banks MD Work Phone: [facility] 10-22-2022 08:03-0500 Respiratory rate 17 /min Carly Banks MD Work Phone: [facility] 10-22-2022 08:03-0500 SaO2% (BldA) [Mass fraction] 96 % Carly Banks MD Work Phone: [facility] 10-22-2022 08:03-0500 Systolic blood pressure 144 mm[Hg] Carly Banks MD Work Phone: [facility] 09-06-2022 10:33-0400 Body height 182.2 cm Respiratory Wstr Work Phone: [facility] 09-06-2022 10:33-0400 Body weight 110.18 kg Respiratory Wstr Work Phone: [facility] 09-06-2022 10:33-0400 Heart rate 73 /min Respiratory Wstr Work Phone: [facility] 09-06-2022 10:33-0400 Respiratory rate 14 /min Respiratory Wstr Work Phone: [facility] 09-06-2022 10:33-0400 SaO2% (BldA) [Mass fraction] 94 % Respiratory Wstr Work Phone: [facility] 09-03-2022 09:06-0400 Body height 182.9 cm Lia Markham MD Work Phone: [facility] 09-03-2022 09:06-0400 Body weight 110.5 kg Lia Markham MD Work Phone: [facility] 09-03-2022 09:06-0400 Diastolic blood pressure 60 mm[Hg] Lia Markham MD Work Phone: [facility] 09-03-2022 09:06-0400 Heart rate 84 /min Lia Markham MD Work Phone: [facility] 09-03-2022 09:06-0400 SaO2% (BldA) [Mass fraction] 96 % Lia Markham MD Work Phone: [facility] 09-03-2022 09:06-0400 Systolic blood pressure 114 mm[Hg] Lia Markham MD Work Phone: [facility] 08-20-2022 11:18-0400 Body weight 111.13 kg Lia Markham MD Work Phone: [facility] 08-20-2022 11:18-0400 Diastolic blood pressure 68 mm[Hg] Lia Markham MD Work Phone: [facility] 08-20-2022 11:18-0400 Heart rate 72 /min Lia Markham MD Work Phone: [facility] 08-20-2022 11:18-0400 Systolic blood pressure 132 mm[Hg] Lia Markham MD Work Phone: [facility] 06-24-2022 15:29-0400 Body weight 109.59 kg Rosemary Nikole FLORIST MANAGER.SPORTS TEAM MANAGER Work Phone: [facility] 06-24-2022 15:29-0400 Diastolic blood pressure 88 mm[Hg] Rosemary Nikole FLORIST MANAGER.SPORTS TEAM MANAGER Work Phone: [facility] 06-24-2022 15:29-0400 Heart rate 76 /min Rosemary Nikole FLORIST MANAGER.SPORTS TEAM MANAGER Work Phone: [facility] 06-24-2022 15:29-0400 SaO2% (BldA) [Mass fraction] 95 % Rosemary Nikole FLORIST MANAGER.SPORTS TEAM MANAGER Work Phone: [facility] 06-24-2022 15:29-0400 Systolic blood pressure 136 mm[Hg] Rosemary Nikole FLORIST MANAGER.SPORTS TEAM MANAGER Work Phone: [facility] 06-21-2022 14:20-0400 Body temperature 98.4 [degF] Inna Roque APRN.SPORTS TEAM MANAGER Work Phone: [facility] 06-21-2022 14:20-0400 Body weight 110.68 kg Inna Roque APRN.SPORTS TEAM MANAGER Work Phone: [facility] 06-21-2022 14:20-0400 Diastolic blood pressure 78 mm[Hg] Inna Roque APRN.SPORTS TEAM MANAGER Work Phone: [facility] 06-21-2022 14:20-0400 Heart rate 86 /min Inna Roque APRN.SPORTS TEAM MANAGER Work Phone: [facility] 06-21-2022 14:20-0400 Respiratory rate 20 /min Inna Roque APRN.SPORTS TEAM MANAGER Work Phone: [facility] 06-21-2022 14:20-0400 SaO2% (BldA) [Mass fraction] 95 % Inna Roque APRN.SPORTS TEAM MANAGER Work Phone: [facility] 06-21-2022 14:20-0400 Systolic blood pressure 130 mm[Hg] Inna Roque APRN.SPORTS TEAM MANAGER Work Phone: [facility] 06-15-2022 08:19-0400 Body weight 108.86 kg Isabela Hernández FLORIST MANAGER.SPORTS TEAM MANAGER Work Phone: [facility] 06-15-2022 08:19-0400 Diastolic blood pressure 80 mm[Hg] Isabela Hakulwinder FLORIST MANAGER.SPORTS TEAM MANAGER Work Phone: [facility] 06-15-2022 08:19-0400 Heart rate 76 /min Isabela Hakulwinder FLORIST MANAGER.SPORTS TEAM MANAGER Work Phone: [facility] 06-15-2022 08:19-0400 Respiratory rate 18 /min Isabela Hakulwinder FLORIST MANAGER.SPORTS TEAM MANAGER Work Phone: [facility] 06-15-2022 08:19-0400 SaO2% (BldA) [Mass fraction] 95 % Isabela Hernández FLORIST MANAGER.SPORTS TEAM MANAGER Work Phone: [facility] 06-15-2022 08:19-0400 Systolic blood pressure 132 mm[Hg] Isabela Hernández FLORIST MANAGER.SPORTS TEAM MANAGER Work Phone: [facility] 02-15-2022 10:54-0400 Body weight 109.77 kg Lia Markham MD Work Phone: [facility] 02-15-2022 10:54-0400 Diastolic blood pressure 82 mm[Hg] Lia Markham MD Work Phone: [facility] 02-15-2022 10:54-0400 Heart rate 80 /min Lia Markham MD Work Phone: [facility] 02-15-2022 10:54-0400 Systolic blood pressure 120 mm[Hg] Lia Markham MD Work Phone: [facility] Encounters Encounter Date Encounter Type Care Provider Facility Start: 11-11-2023 End: 11-12-2023 ambulatory LIA MARKHAM Facility:[facility] Start: 11-10-2023 ambulatory Lia Markham MD Work Phone: [facility] [place] Procedures Date Procedure Procedure Detail Performing Clinician [...] DTaP,Tdap,Td Vaccine (3 - Td or Tdap) [facility] Start: 10-06-2026 Colonoscopy COLONOSCOPY [facility] Start: 10-06-2026 COLORECTAL CANCER SCREENING COLORECTAL CANCER SCREENING [facility] Start: 10-06-2026 Screening for malignant neoplasm of colon [facility] Start: 08-21-2025 PROSTATE CANCER SCREENING DISCUSSION PROSTATE CANCER SCREENING DISCUSSION [facility] Start: 11-07-2024 Annual PCP Team Chronic Disease Visit Annual PCP Team Chronic Disease Visit [facility] Start: 10-29-2024 Hepatitis B surface antibody level LDL Cholesterol [facility] Start: 10-05-2024 Annual PCP Team Chronic Disease Visit Annual PCP Team Chronic Disease Visit [facility] Start: 09-28-2024 Influenza vaccination Lung Cancer Screening [facility] Start: 09-28-2024 Screening for malignant neoplasm of lung Lung Cancer Screening [facility] Start: 09-14-2024 Annual PCP Team Chronic Disease Visit Annual PCP Team Chronic Disease Visit [facility] Start: 09-05-2024 Annual PCP Team Chronic Disease Visit Annual PCP Team Chronic Disease Visit [facility] Start: 01-28-2024 Hemoglobin A1c measurement HbA1C [facility] Start: 12-07-2023 Hemoglobin A1c/Hemoglobin.total in Blood HbA1C [facility] Start: 11-10-2023 ANNUAL PCP TEAM CHRONIC DISEASE VISIT ANNUAL PCP TEAM CHRONIC DISEASE VISIT [facility] Start: 10-22-2023 ANNUAL PCP TEAM CHRONIC DISEASE VISIT ANNUAL PCP TEAM CHRONIC DISEASE VISIT [facility] Start: 10-21-2023 Glaucoma screening Dilated Retinal Exam [facility] Start: 10-21-2023 Hepatitis C antibody, confirmatory test DILATED RETINAL EXAM [facility] Start: 10-05-2023 End: 01-04-2024 CBC W Auto Differential panel - Blood CBC + DIFF Lab Routine Controlled type 2 diabetes mellitus without complication, without long-term current use of insulin (HCC) Expected: 10/05/2023, Expires: 01/04/2024 [facility] Work Phone: Immunizations Immunization Date Immunization Notes Care Provider Fa cility 08-24-2023 influenza (HD-IIV4) vaccine, age 65+ yr, high dose, quadrivalent, PF (FLUZONE HIGH-DOSE) Lia Markham MD Work Phone: [facility] 08-24-2023 respiratory syncytia l virus (RSV) vaccine, adjuvanted (AREXVY) Lia Markham MD Work Phone: [facility] 08-20-2022 influenza, high-dose , quadrivalent vaccine (FLUZONE HIGH DOSE QUADRIVALENT) Lia Markham MD Work Phone: [facility] 08-20-2022 pneumococcal (PCV20) vaccine, 20 valent (PREVNAR 20) Lia Markham MD Work Phone: [facility] 08-20-2022 pneumococcal Conjuga te, unspecified formulation Lia Markham MD Work Phone: [facility] Work Phone: 08-20-2022 influenza virus vacc ine, unspecified formulation Carly Banks MD Work Phone: [facility] 09-09-2021 influenza, high dose seasonal, preservative-free Lia Markham MD Work Phone: [facility] 02-12-2021 COVID-19 vaccine, ag e 12+ yr (PFIZER-BIONTECH - PURPLE TOP) Lia Markham MD Work Phone: [facility] 01-22-2021 COVID-19 vaccine, ag e 12+ yr (PFIZER-BIONTECH - PURPLE TOP) Lia Markham MD Work Phone: [facility] 08-21-2020 influenza, high-dose , quadrivalent vaccine (FLUZONE HIGH DOSE QUADRIVALENT) Lia Markham MD Work Phone: [facility] 08-21-2020 pneumococcal polysaccharide vaccine, 23 valent Lia Markham MD Work Phone: [facility] 12-30-2019 zoster vaccine recombinant Lia Markham MD Work Phone: [facility] 10-18-2019 zoster vaccine recombinant Lia Markham MD Work Phone: [facility] 09-14-2019 influenza, high dose seasonal, preservative-free Lia Markham MD Work Phone: [facility] 09-14-2019 zoster vaccine recombinant Lia Markham MD Work Phone: [facility] 10-04-2018 influenza, injectabl e, quadrivalent, contains preservative Lia Markham MD Work Phone: [facility] 09-01-2017 influenza, injectabl e, quadrivalent, contains preservative Lia Markham MD Work Phone: [facility] 09-21-2016 influenza, injectabl e, quadrivalent, contains preservative Lia Markham MD Work Phone: [facility] Work Phone: 10-30-2015 influenza, injectabl e, quadrivalent, contains preservative Lia Markham MD Work Phone: [facility] 10-31-2014 influenza, seasonal, injectable Lia Markham MD Work Phone: [facility] 10-31-2014 zoster vaccine, live Lia Markham MD Work Phone: [facility] 09-27-2012 influenza virus vacc ine, unspecified formulation Lia Markham MD Work Phone: [facility] 09-21-2011 influenza virus vacc ine, unspecified formulation Lia Markham MD Work Phone: [facility] Work Phone: 08-07-2010 pneumococcal polysaccharide vaccine, 23 valent Lia Markham MD Work Phone: [facility] Work Phone: 08-07-2010 tetanus toxoid, redu nathan diphtheria toxoid, and acellular pertussis vaccine, adsorbed Lia Markham MD Work Phone: [facility] Work Phone: 10-11-2007 influenza virus vacc ine, unspecified formulation Lia Markham MD Work Phone: [facility] Work Phone: Payers Date Payer Category Payer Medicare [id number] 2019 Medicare MEDICARE MEDICAR E A AND B [id number] 2019-Present [phone] [address] [address] [place] [address] Medicare [id number] 2019 Medicare [id number] 2001 Unknown [employer] PPO [id number] 2001-2021 [address] [place] [address] PPO [id number] Social History Date Type Detail Facility Start: 05-01-2021 End: 09-20-2023 Tobacco smoking status NHIS Ex-smoker [facility] End: 09-01-2023 History of tobacco use Cigarette Smoker [facility] Start: 05-01-2021 End: 05-02-2023 Cigarettes smoked current (pack per day) - Reported 0.5 [facility] Start: 05-01-2021 End: 09-20-2023 Tobacco use and exposure Smokeless tobacco non-user [facility] Start: 02-15-2022 End: 09-14-2023 Alcohol intake Current drinker of alcohol (finding) [facility] Start: 04-27-2021 End: 10-21-2022 History SDOH Alcohol Frequency 2 [facility] Start: 04-27-2021 End: 10-21-2022 History SDOH Alcohol Std Drinks 1 [facility] Start: 04-05-2017 History SDOH Alcohol Comment occasionally beer or liquor [facility] Start: 04-27-2021 End: 10-21-2022 History SDOH Social Connections Phone 3 [facility] Start: 04-27-2021 History SDOH Physical Activity MPS 0 [facility] Start: 04-27-2021 Education 17 [facility] Start: 1955 Sex Assigned At Male [facility] Start: 02-05-2022 End: 10-22-2022 Exposure to SARS-CoV-2 (event) Not sure [facility] End: 09-01-2023 History of tobacco use Current smoker [facility] Start: 10-22-2022 Tobacco Comment Quit 2019 [facility] Start: 12-28-2022 End: 05-02-2023 Tobacco smoking status NHIS Occasional tobacco smoker [facility] Work Phone: Start: 12-28-2022 Tobacco Comment Restarted smoking over the holidays [facility] Start: 10-21-2022 End: 05-02-2023 Alcohol Use Disorder Identification Test - Consumption [AUDIT-C] [facility] How often to you hav e a drink containing alcohol? Monthly or less [facility] How many standard dr inks containing alcohol do you have on a typical day? 1 or 2 [facility] How often do you hav e 6 or more drinks on 1 occasion? Never [facility] Adult Depression Scr eening Assessment 0 [facility] Do you feel stress - tense, restless, nervous, or anxious, or unable to sleep at night because your mind is troubled all the time - these days [OSQ] To some extent [facility] In the past 12 month s, was there a time when you were not able to pay the mortgage or rent on time? No [facility] Start: 05-02-2023 Tobacco Comment Less than 1ppd 05/02/23 [facility] Start: 04-27-2021 Gender identity Identifies as male gender (finding) [facility] Start: 04-27-2021 Sexual orientation Heterosexual (finding) [facility] Do you belong to any clubs or organizations such as religion groups, unions, fraternal or athletic groups, or school groups? Yes [facility] Are you now , , , , never or living with a partner? [facility] (I/We) worried wheth er (my/our) food would run out before (I/we) got money to buy more. Never true [facility] Start: 09-15-2023 End: 10-05-2023 Alcohol intake Ex-drinker (finding) [facility] Start: 09-15-2023 Tobacco Comment Less than 1ppd 05/02/23Quit 09/01/2023 [facility] Start: 09-20-2023 Tobacco Comment Quit 09/01/2023 [facility] Do you feel stress - tense, restless, nervous, or anxious, or unable to sleep at night because your mind is troubled all the time - these days [OSQ] Only a little [facility] Medical Equipment Procedure Code Equipment Code Equipment Origin al Text Equipment Identifier Dates Start: 07-29-2010 End: 07-11-2023 Clinical Notes 10-12-2011 to 11-07-2023 Telephone Encounter - Carly Manriquez Ma - 11/02/2023 12:44 PM ESTTelephone Encounter - Aleta Teague Ma - 10/22/2023 12:09 PM ESTTelephone Encounter - Lia Markham MD - 10/22/2023 11:22 AM EST Note Date & Type Note Facility 11-07-2023 Note HNO ID: [id number] Author: Lia Markham MD Service: ? Author Type: Physician Type: Progress Notes Filed: 11/07/2023 12:43 PM Note Text: Patient presents with: Hospice Discharge HPI: Patient presents today for office visit for hospital follow up. HOSPITAL/ER FOLLOW UP: Reason for visit: weakness, fall Which facility: [facility] Date of visit: 11/02/23 Discharged: 11/05/23 [...] Use one pen needle four times daily lnnvwyqfdsk-igzeclhwu-hjtblaip (TRELEGY ELLIPTA) 100-62.5-25 mcg inhalation powder Inhale [...] Controlled with effexor Benign neoplasm of colon 2011 Dysmetabolic sy (more content not included)... [facility] 11-02-2023 Miscellaneous Notes Spoke to and scheduled patient Carly Manriquez Ma documented in this encounter [facility] 10-22-2023 Miscellaneous Notes Placed in mail written documented in this encounter [facility] 10-11-2023 Miscellaneous Notes rxi documented in this encounter [facility] 10-05-2023 Note HNO ID: [id number] Author: Lia Markham MD Service: ? Author Type: Physician Type: Progress Notes Filed: 10/05/2023 12:18 PM Note Text: Patient presents with: Follow Up HPI: Patient presents today for office visit for 3 week follow up. Was seen in [facility] on 09/06/23 for stroke like symptoms [...] his subacute cva. Was seen back in [facility] on 09/26/23 Discharged on 09/27/23 Went [...] therapies ordered. He has been going to [facility] instead. Reiterated that it is not an acceptable substitute. Orders were placed. They are planning on going to [facility] this week. Suggested with recent cva they [...] Use one pen needle four times daily iznwocledxw-evcgiuyzl-dcrynjgi (TRELEGY ELLIPTA) 100-62.5-25 mcg inhalation powder Inhale [...] SPEC WHEN PFRMD (more content not included)... [facility] 10-05-2023 Instructions Lia Markham MD - 10/05/2023 12:08 PM EST Increase humalog to 19 units with each meal. Send over sugars on Tuesday. documented in this encounter [facility] 10-05-2023 History of Present illness Narrative Patient presents with: Follow Up HPI: Patient presents today for office visit for 3 week follow up. Was seen in [facility] on 09/06/23 for stroke like symptoms [...] his subacute cva. Was seen back in [facility] on 09/26/23 Discharged on 09/27/23 Went [...] therapies ordered. He has been going to [facility] instead. Reiterated that it is not an acceptable substitute. Orders were placed. They are planning on going to [facility] this week. Suggested with recent cva they [...] Use one pen needle four times daily wklnjapmfpa-qfozxcvke-gtandgao (TRELEGY ELLIPTA) 100-62.5-25 mcg inhalation powder Inhale [...] Lia Markham MD documented in this encounter [facility] 09-28-2023 Note HNO ID: [id number] Author: Suellen Kaplan RT(R) Service: ? Author Type: Sheet Pile Hammer Operator Type: Progress Notes Filed: 09/28/2023 4:18 PM [...] RT Avelina(R) September 28, 2023 4:18 PM [facility] 09-26-2023 Miscellaneous Notes Pt was taken to [facility] ER by spouse. Reg Broussard Message left for or patient to call PCP office and ask for charleen nurse, for provider's response below. Melody Schulz RN Agree, these sx belong in ER should not wait. Thanks, Rusty Calhoun PA-C Patient's calls concerned. Patient was seen in [facility] 09/06/2023 with stroke like symptoms. Patient [...] Sagrario Barrera RN documented in this encounter [facility] 09-22-2023 Note HNO ID: [id number] Author: Penny Pastor RDMS Service: ? Author Type: Sheet Pile Hammer Operator Type: Progress Notes Filed: 09/22/2023 2:14 PM [...] Pastor RDMS September 22, 2023 2:14 PM [facility] 09-22-2023 History of Present illness Narrative Radiology [...] 2023 2:14 PM documented in this encounter [facility] 09-20-2023 Note HNO ID: [id number] Author: Andres Dotson APRN.SPORTS TEAM MANAGER Service: ? Author Type: Nurse Practitioner Type: [...] pre-disease performance w/o restriction. Modified [employer] [place] Dyspnea Scale (MMRC) I only get breathless [...] Inject 50 Units subcutaneously daily at bedtime. aikfsxkfkje-ktnumkqqp-nesvnnld (TRELEGY ELLIPTA) 100-62.5-25 mcg inhalation powder Inhale [...] mg by mout (more content not included)... [facility] 09-20-2023 Instructions Andres Dotson APRN.SPORTS TEAM MANAGER - 09/20/2023 10:[address] Lung [...] to endocrinology. Others Lung Cancer Screening hotline: [phone] Lung Cancer Screening [phone] Billing Questions: or [email or web address] Lung Cancer Screening Team: Angeles Lopez CNP; Gladys Reddy PA-C; Suellen Joseph CNP; Diamond Rosas CNP, Susanne Wolfe PA-C, Fide Andino PA-C, Andres Dotson SPORTS TEAM MANAGER : [phone] documented in this encounter [facility] 09-20-2023 History of Present illness Narrative Images [...] pre-disease performance w/o restriction. Modified Medical Research [place] Dyspnea Scale (MMRC) I only get breathless [...] STRESS/EXERCISE 07/20/2011 WNL PAST SURGICAL HISTORY OF 1962 Testicular as child PAST SURGICAL HISTORY OF [...] Inject 50 Units subcutaneously daily at bedtime. twtalaawsmo-oecfmpsxc-wumdsxhw (TRELEGY ELLIPTA) 100-62.5-25 mcg inhalation powder Inhale [...] COVID-19 original vaccine, age 12+ yr, monovalent (Duplia - PURPLE TOP) 01/22/2021 02/12/2021 09/09/2021 COVID-19 vaccine, age 12+ yr, 2022- season (Duplia) 09/13/2023 COVID-19 vaccine, age 12+ yr, bivalent (Duplia) 08/30/2022 influenza (HD-IIV3) vaccine, age 65+ yr, [...] DATE OF EXAM: Sep 06 2022 1:24PM [facility] 0541 - CT CHEST WO IVCON / [...] the upper abdomen demonstrates no interval changes. [employer] (topogram) images: No additional findings. Impression: IMPRESSION: Numerous tiny centrilobular nodules in the bilateral lungs, likely secondary to inflammatory/infectious process or small airway disease. Mild emphysema. No CT evidence of interstitial lung disease. Remote granulomatous disease. Executive Assistant To General Counsel: ABDULKADIR Transcribe Date/Time: Sep 07 2022 2:32P Dictated [...] medial basilar pneumonia. Lungs are otherwise clear. Executive Assistant To General Counsel: ABDULKADIR Transcribe Date/Time: Sep 03 2022 12:23P ... Pulmonary Function Testing: SPIROMETRY BASELINE ONLY ([id number]) - ordered on 09/15/[address] [address] Test Date: 2023-09-15 Pat Name: OLGA WOODSON Department: Room: Gender: Male Sheet Pile Hammer Operator: : 1955 Requested By: Order Number: [id number] Reading MD: Carly Banks MD Interpretive Statements The exhaled (FVC) spirometry maneuver meets ATS/ERS acceptability and repeatability standards. The inspired (FIVC) spirometry maneuver is [less than/greater than] the FVC maneuver. IMPRESSION: Spirometry indicates moderate obstruction. Electronically Signed On 09-15-2023 16:45:15 EDT by Carly Banks MD ID: [id number] Name: OLGA WOODSON Race: White Ht: 71.75 in Wt: 231.00 lbs Age: 68 Gender: Male : 1955 Dx: COPD_ Smoking Hx: Non-smoker Doctor: YOLY ORNELAS Test Date: 09/15/2023 Site: Tech: [facility] PRE-BRONCH POST-BRONCH Pre LLN Pred ULN %Pred Post %Pred %Chg SPIROMETRY FVC (L) 4.41 3.25 4.37 5.50 100 FEV1 (L) 2.26 2.41 3.29 4.12 68 FEV1/FVC 0.51 0.63 0.76 0.87 67 PEF L/s (L/sec) 5.37 6.41 8.85 11.28 60 FEF50 (L/sec) 1.09 2.27 4.40 6.52 24 FIF50 (L/sec) 2.67 FEF50/FIF50 0.41 90-100 FIVC (L) 3.28 GYR56-09 (L/sec) 0.70 1.14 2.60 4.64 27 Time (sec) 13.94 FET PEF (sec) 0.12 AMINTA (L) 0.06 Vol Extrap % (%) 1 PHYSICAL EXAM: BP 144/82 Pulse 100 Wt 102.1 kg (225 lb) SpO2 96% BMI 30.73 kg/m Deferred ASSESSMENT and RECOMMENDATIONS: 1. Screening for lung cancer: Six year risk for lung cancer: 4.43% Https://[employer]/Slovenian /result/male_[email or web address]_yes_unknown [email or web address] I have determined that the patient [...] 2023 10:40 AM documented in this encounter [facility] 09-15-2023 Note HNO ID: [id number] Author: Yoly Ornelas PA-C Service: ? Author Type: Physician Silver Chaser Type: Progress Notes Filed: 09/15/2023 2:43 PM Note Text: Patient: Olga Woodson PCP: Lia Markham MD CC: follow up HPI: Olga Woodson 68 year old male recently former 81-uwev-qrnx smoker with PMH significant for psoriasis, anxiety, HLD, DM, CVA, CALLI on CPAP, and COPD. Current therapy with Trelegy and as needed Albuterol. Today, patient states he was recently admitted to [facility] secondary to CVA. States he had been [...] Inject 50 Units subcutaneously daily at bedtime. tfryjhqgonl-gchkxfdid-rzjkduak (TRELEGY ELLIPTA) 100-62.5-25 mcg inhalation powder Inhale [...] history, social h (more content not included)... [facility] 09-15-2023 Note HNO ID: [id number] Author: Madyson Robbins RPFT Service: ? Author Type: Respiratory Therapist Type: Progress Notes Filed: 09/15/2023 1:18 PM Note Text: PULM FUNCTION SMARTBLOCK: Provider: Yoly Ornelas PA-C Assisting Tech: Madyson Robbins RPFT Spirometry: 1 [facility] 09-15-2023 History of Present illness Narrative Images from the original note were not included. Patient: Olga Woodson PCP: Lia Markham MD CC: follow up HPI: Olga Woodson 68 year old male recently former 90-jtei-pjyz smoker with PMH significant for psoriasis, anxiety, HLD, DM, CVA, CALLI on CPAP, and COPD. Current therapy with Trelegy and as needed Albuterol. Today, patient states he was recently admitted to [facility] secondary to CVA. States he had been [...] Inject 50 Units subcutaneously daily at bedtime. qrzxluxgtgc-bgftlejkl-uguuqoai (TRELEGY ELLIPTA) 100-62.5-25 mcg inhalation powder Inhale [...] above and updated in EMR. IMMUNIZATIONS Prevnar - 08/20/2022 Pneumovax 23 - 08/21/2020, 08/07/2010 [...] smoker - ICD9: V15.82, ICD10: Z87.891 Former 93-lywu-bkqf smoker with sequelae of COPD. Is scheduled with lung cancer screening for LDCT. Portions of this documentation were copied and pasted from previous office visit notes in order to provide a cohesive continuity of the history. The note has been reviewed and edited and updated as necessary. Yoly Ornelas PA-C documented in this encounter [facility] 09-14-2023 Note HNO ID: [id number] Author: Lia Markham MD Service: ? Author Type: Physician Type: Progress Notes Filed: 09/15/2023 10:32 AM Note Text: Patient presents with: Hospital F/U HPI: Patient presents today for office visit for hospital follow up. Seen in [facility] on 09/06/23 Discharged 09/07/23 Admitted for [...] Inject 50 Units subcutaneously daily at bedtime. qpxqvxcwdzi-oqzkecqxf-bhormysk (TRELEGY ELLIPTA) 100-62.5-25 mcg inhalation powder Inhale [...] 07/13/2012 Right ro (more content not included)... [facility] 09-14-2023 Instructions Lia Markham MD - 09/14/2023 3:16 PM EDT My chart list of sugars next . documented in this encounter [facility] 09-14-2023 History of Present illness Narrative Patient presents with: Hospital F/U HPI: Patient presents today for office visit for hospital follow up. Seen in [facility] on 09/06/23 Discharged 09/07/23 Admitted for [...] Inject 50 Units subcutaneously daily at bedtime. htnviylases-eardklfux-fnevbikw (TRELEGY ELLIPTA) 100-62.5-25 mcg inhalation powder Inhale [...] STRESS/EXERCISE 07/20/2011 WNL PAST SURGICAL HISTORY OF 1962 Testicular as child PAST SURGICAL HISTORY OF [...] CONSULT TO SPEECH THERAPY - CONSULT TO PURCHASING/RECEIVING 2. Controlled type 2 diabetes mellitus without complication, without long-term current use of insulin ([facility]) - ICD9: 250.00, ICD10: E11.9 - Uncontrolled [...] aneurysm (AAA) without rupture, unspecified part (HCC) - ICD9: 441.4, ICD10: I71.40 - US ABD AORTA - US DOPPLER AORTA 6. Bronchiectasis without complication ([facility]) - ICD9: 494.0, ICD10: J47.9 - per pulmonary 7. Stage 3 severe COPD by GOLD classification ([facility]) - ICD9: 496, ICD10: J44.9 - per pulmonary. 8. History of diabetes mellitus - ICD9: V12.29, ICD10: Z86.39 9. Cerebrovascular accident (CVA), unspecified mechanism (HCC) - ICD9: 434.91, ICD10: I63.9 - CONSULT TO NEUROLOGY 10. Infarction of thalamus (HCC) - ICD9: 434.91, ICD10: I63.81 - CONSULT TO NEUROLOGY 11. CALLI (obstructive sleep apnea) - ICD9: 327.23, ICD10: G47.33 - encouraged tx 12. Lung nodules - ICD9: 793.19, ICD10: R91.8 - per pulmonary. Lia Markham MD documented in this encounter [facility] documented as of this encounter (statuses as of 10/05/2023) [facility] History of Past illness Narrative* Problem Noted [...] of uncertain behavi or of skin: R congregation face: R/O BCC 10/12/2011 09/21/2016 Actinic Keratosis [...] of this encounter (statuses as of 10/07/2023) [facility] History of Past illness Narrative* Problem Noted [...] of uncertain behavi or of skin: R congregation face: R/O BCC 10/12/2011 09/21/2016 Actinic Keratosis [...] of this encounter (statuses as of 10/12/2023) [facility] History of Past illness Narrative* Problem Noted [...] of uncertain behavi or of skin: R congregation face: R/O BCC 10/12/2011 09/21/2016 Actinic Keratosis [...] of this encounter (statuses as of 10/22/2023) [facility] History of Past illness Narrative* Problem Noted [...] of uncertain behavi or of skin: R congregation face: R/O BCC 10/12/2011 09/21/2016 Actinic Keratosis [...] of this encounter (statuses as of 11/03/2023) [facility] History of Past illness Narrative* Problem Noted [...] of uncertain behavi or of skin: R congregation face: R/O BCC 10/12/2011 09/21/2016 Actinic Keratosis [...] DYSFUNCTION 04/06/2006 016 Overview: Adequate response with cassie OVERWEIGHT 04/06/2006 10/05/2023 Anxiety state, unspecified 08/19/2005 1 11/21/2015 Overview: Controlled with effexor Other malaise and fatigue 08/03/2005 Unspecified disorder of prostate 08/03/2005 08/07/2010 Hyperlipidemia 07/30/2015 documented as of this encounter (statuses as of 11/11/2023) [facility] NoteHNO ID: [id number] Author: Lia Markham MD Service: ? Author [...] about patient. Patient was working out today. [place] refused to work out with patient due [...] Inject 50 Units subcutaneously daily at bedtime. fmdbgkqqoyp-vqeoijphj-yiwsbohp (TRELEGY ELLIPTA) 100-62.5-25 mcg inhalation powder Inhale [...] penis erectile dysfunction PER (more content not included)...[facility]10-16-2023 Miscellaneous Notes* Telephone Encounter - Karen Varghese Ma - 09/05/2023 9:34 AM EDT Pt scheduled appt tonight. Karen Varghese Ma * Telephone Encounter - Karen Varghese Ma - 09/05/2023 8:27 AM EDT Asked pt if he was seen in ED as advised on 09/02/23. Notified pt he needs an OV. Offerd to assist him in scheduling. Wait pt response. Karen Varghsee Ma documented in this encounterShel[facility]08-[facility]-2023 Miscellaneous Notes* Telephone Encounter - Alicia Reyes [...] patient. Alicia Reyes LPN documented in this encounterShel[facility] Hospital07-14-2023 Miscellaneous Notes* Telephone Encounter - Lia Markham MD - 06/03/2023 7:58 AM EDT Does not look like he picked up the message. Can we call him with my response. I do not think he realizes it is the same identical med...just called different. documented in this encounterShel[facility] Hospital06-12-2023 NoteHNO ID: [id number] Author: Yoly Ornelas PA-C Service: ? Author Type: Physician Silver Chaser Type: Progress Notes Filed: 05/02/2023 11:39 AM Note Text: Patient: Olga Woodson PCP: Lia Markham MD CC: COPD HPI: Ogla Woodson 67 year old male 1.5 ppd [...] 1.5 PPD Psoriasis Skin cancer Stroke (cerebrum) ([facility]) Tobacco use disorder Type II or unspecified type diabetes mellitus without mention of complication, uncontrolled 08/07/2010 Diagnosed 07/2010 Allergies: Metformin Diarrhea Penicillins rqwicavauvq-fbzsbzabx-gdvasjay (TRELEGY ELLIPTA) 100-62.5-25 mcg inhalation powder Inhale [...] 07/01/2015 resolution pleural ef (more content not included)...[facility] 04-04-2023 Miscellaneous Notes* Telephone Encounter - Reg [...] When form is completed, Fax form to [phone] Form has been forwarded to Nurse Practictioner: JERI Canchola LPN documented in this encounterSheltering [facility] Hospital05-02-2023 Miscellaneous Notes* Telephone Encounter - Marcy Cedillo LPN - 03/22/2023 10:35 AM EDT Patient phones requesting refills as follows: Requested Prescriptions Pending Prescriptions Disp Refills tlqcfulvbaz-ualbprkni-pynsiygi (TRELEGY ELLIPTA) 100-62.5-25 mcg inhalation powder 1 Each 3 Sig: Inhale 1 Puff as instructed once daily. Please review and advise. Marcy Cedillo LPN documented in this encounterSheltering [facility] Hospital05-01-2023 Miscellaneous Notes* Telephone Encounter - Alicia Reyes [...] patient. Alicia Reyes LPN documented in this encounterSheltering [facility] Hospital03-24-2023 Miscellaneous Notes* Telephone Encounter - Alicia Reyes [...] leaking wants to see Dr Church at [facility] needsreferral sent over there. documented in this encounterSheltering [facility] Hospital03-20-2023 Miscellaneous Notes* Telephone Encounter - Alicia Reyes [...] patient. Alicia Reyes LPN documented in this encounterSheltering [facility] Hospital02-07-2023 NoteHNO ID: [id number] Author: Carly Banks MD Service: ? Author Type: Physician Type: Progress Notes Filed: 12/28/2022 11:06 AM Note Text: . Respiratory [place] Note Patient name: Olga Woodson PCP: Lia [...] nodule nodule no longer seen in 2016 ACLLI on CPAP Other specified disorder of penis [...] 3 mg subcutaneously one time a week. xfnnjcevqnq-ackuhzjcg-aqunovtx (TRELEGY ELLIPTA) 100-62.5-25 mcg inhalation powder Inhale [...] and deep fold areas. (more content not included)...[facility]12-15-2022 Miscellaneous Notes* Telephone Encounter - Zion Calhoun PA-C - 11/04/2022 6:35 PM EST The following approved medication requests have been transmitted electronically. Requested Prescriptions Signed Prescriptions Disp Refills dulaglutide (TRULICITY) 3 mg/0.5 mL pen injector 12 Each 3 Sig: Inject 3 mg subcutaneously one time a week. Zion Calhoun PA-C documented in this encounterSheltering Arms Hospital12-02-2022 History of Present illness Narrative* Lia Markham [...] ago. MEDICATIONS: Current Outpatient Medications Medication Sig jiyqmauiolq-npwfpfqel-uvutoirz (TRELEGY ELLIPTA) 100-62.5-25 mcg inhalation powder Inhale [...] Stage 3 severe COPD by GOLD classification ([facility]) - ICD9: 496, ICD10: J44.9 (primary diagnosis) - continue meds. 2. Mild depressive disorder - ICD9: 311, ICD10: F32.A - VENLAFAXINE ER 150 MG CAPSULE,EXTENDED RELEASE 24 HR 3. Bronchiectasis without complication ([facility]) - ICD9: 494.0, ICD10: J47.9 - stable. Discussed importance of taking meds regularly. 4. Controlled type 2 diabetes mellitus without complication, without long-term current use of insulin ([facility]) - ICD9: 250.00, ICD10: E11.9 improved control - Continue current medications Lia Markham MD documented in this encounterSheltering [facility] Hospital12-02-2022 History of Present illness Narrative* Carly Banks MD - 10/22/2022 8:00 AM EST Images from the original note were not included. . Respiratory [place] Note Patient name: Olga oWodson PCP: Lia Markham MD Referring Physician: same [...] breath. Started a working out with a emr trainer who noticed significant labored breathing.He notes [...] DATE OF EXAM: Sep 06 2022 1:24PM [facility] 0541 - CT CHEST WO IVCON / [...] 1.5 PPD Psoriasis Skin cancer Stroke (cerebrum) ([facility]) Tobacco use disorder Type II or unspecified type diabetes mellitus without mention of complication, uncontrolled 08/07/2010 Diagnosed 07/2010 ALLERGIES Allergen Reactions Metformin Diarrhea Penicillins kolqleazrgx-qzhifmbze-wveewqqx (TRELEGY ELLIPTA) 100-62.5-25 mcg inhalation powder Inhale [...] STRESS/EXERCISE 07/20/2011 WNL PAST SURGICAL HISTORY OF 1962 Testicular as child PAST SURGICAL HISTORY OF [...] be helpful 2. Former cigarette smoker -Former 10-sumk-jvlq smoker having quit in 2019 with sequelae of COPD/emphysema -Continue abstinence -Qualifies for low-dose chest CT for cancer screening but would not be due until August 2023 3. Obesity -Class II obesity, BMI 33 -Weight loss advised Carly Banks MD [facility] [place] documented in this encounterSheltering Arms Hospital11-02-2022 Miscellaneous Notes* Telephone Encounter - Alicia Reyes LPN - 09/22/2022 11:57 AM EDT Faxed back to [place] as requested. * Telephone Encounter - Lia [...] Dr. Shahrzad Broussard LPN documented in this encounterSheltering Arms Hospital11-01-2022 Miscellaneous Notes* Telephone Encounter - Melody Schulz RN - 09/21/2022 10:11 AM EDT Yoly from [facility] calling and states she has received printed CPAP script for patient. Yoly requesting recent OV notes and sleep study results also. Faxed as requested to [phone]. Melody Schulz RN documented in this [facility]10-31-2022 Miscellaneous Notes* Telephone Encounter - Zion French RN - 09/20/2022 10:05 AM EDT Left detailed vm on identified vm with provider's message below. * Telephone Encounter - Zion Calhoun PA-C - 09/19/2022 5:15 PM EDT I placed consult if he wants to establish with [facility] Dr. Banks Thanks, Rusty Calhoun PA-C documented in this [facility]10-21-2022 Miscellaneous Notes* Telephone Encounter - [...] to pulmonary to follow documented in this encounterSheltering Arms Hospital10-18-2022 Miscellaneous Notes* Telephone Encounter - Aleta Teague Ma - 09/07/2022 3:44 PM EDT Keila Porras sends fax stating that rx for CPAP needs to state that it is a replacement machine. Please file. Once filed, will fax with office note. documented in this encounterSheltering [facility] Hospital10-17-2022 History of Present illness Narrative* Suellen Null, RT(R) - 09/06/2022 1:00 PM EDT Radiology Service [...] 06, 2022 3:26 PM documented in this encounterSheltering Arms Hospital10-17-2022 History of Present illness Narrative* ERICA iSlva - 09/06/2022 10:33 AM EDT PULM FUNCTION SMARTBLOCK: Provider: Lia Markham MD Assisting Tech: ERICA Silva Spirometry w/BD: 1 DLCO: 1 LV - Box: 1 documented in this encounterSheltering Arms Hospital10-14-2022 Miscellaneous Notes* Telephone Encounter - Aleta Teague [...] out scarring or fibrosis. documented in this encounterSheltering Arms Hospital10-14-2022 History of Present illness Narrative* Lia Markham [...] Patent and antegrade flow noted. Technologist: Brynn LIUT, [facility] Ordering physician: LIA MARKHAM Aorta: 3.3 [...] RTO in six weeks. documented in this encounterSheltering Arms Hospital10-11-2022 Miscellaneous Notes* Telephone Encounter - Melody Schulz [...] scheduled appt is 10/22. Please advise at [phone]. Reason for Disposition [1] MODERATE longstanding difficulty [...] does nothing, but they do go to [employer] during the week and patient does a [...] about 8 months ago when they started [employer]-reports he is the same with his SOB. [...] n/a 12. TRAVEL: no Protocols used: Breathing Lzmdybjdab-HEMTK-XU documented in this encounterSheltering Arms Hospital10-06-2022 History of Present illness Narrative* Penny Pastor [...] 26, 2022 11:52 AM documented in this encounterSheltering Arms Hospital10-05-2022 Miscellaneous Notes* Telephone Encounter - Danielle Sprague [...] we can get his sleep study from [facility] in 2013. documented in this encounterSheltering Arms Hospital09-30-2022 Miscellaneous Notes* Addendum Note - Lia Markham MD - 08/20/2022 11:58 AM EDTAddended by: LIA MARKHAM on: 08/20/2022 11:58 AM Modules accepted: Orders, SmartSet documented in this encounterSheltering Arms Hospital09-30-2022 History of Present illness Narrative* Lia Markham [...] needles, DISPOSABLE, (EASY TOUCH) 31 gauge x 04/05 Use one pen needle four times daily [...] six to eight weeks. documented in this encounterSheltering Arms Hospital08-12-2022 Miscellaneous Notes* Telephone Encounter - Alicia Reyes [...] patient. Alicia Reyes LPN documented in this encounterSheltering Arms Hospital08-12-2022 Miscellaneous Notes* Telephone Encounter - Melody Oliveira - 07/02/2022 10:53 AM EDT Called patient and patient stated that he went to see someone yesterday for his toe. Patient did not want to be schedule with podiatry * Telephone Encounter - Isabela Hernández APRN.CNP - 06/25/2022 8:49 AM EDT Please help schedule w/ podiatry. Isabela Hernández APRN.JERI * Telephone Encounter - Karen Varghese Ma - 06/25/2022 8:40 AM EDT See pt message. I did ask additional questions if pain is worse, same or any better. All you have is ROSAMARIA slots today other then 1 open, which time is already over. Advise. Karen Varghese Ma documented in this encounterSheltering Arms Hospital08-04-2022 History of Present illness Narrative* Rosemary Agustin [...] DROPS Rosemary Agustin APRN.CNP documented in this encounterSheltering Arms Hospital08-04-2022 Miscellaneous Notes* Telephone Encounter - Carly Manriquez Ma - 06/24/2022 12:56 PM EDT Spoke to patient and scheduled for today Carly Manriquez Ma documented in this encounterSheltering Arms Hospital08-01-2022 Instructions* Patient Instructions* Inna Roque APRN.CNP - [...] contagious, but need treatment. documented in this encounterSheltering Arms Hospital08-01-2022 History of Present illness Narrative* Inna Roque APRN.SPORTS TEAM MANAGER - 06/21/2022 2:33 PM EDT This note was created using [employer] Estater[employer]. Subjective Olga Woodson is a 66 year old male. 66 male with PMH of CVA, AAA, Hyperlipidemia, DM presents with complaints of right ear fullness. Acute onset today fullness & water in right ear Denies pain, fever/chills, congestion, or cough No OTC medications or remedies used COUNTY SUPERVISOR States I was at the doctors getting my new hearing aids this morning and they told me I should getmy ear looked at . The history is provided by the patient. No language arts teacher was used. Ear Pain This is a [...] STRESS/EXERCISE 07/20/2011 WNL PAST SURGICAL HISTORY OF 1962 Testicular as child PAST SURGICAL HISTORY OF [...] - Discussed expected course of illness Allie Kaminski-Lise Supervising provider was present and guided the care of the patient for the entire session on this date. All documentation was reviewed and agreed upon. Inna Roque APRN.CNP documented in this encounterSheltering Arms Hospital07-27-2022 Miscellaneous Notes* Telephone Encounter - Karen Varghese Ma - 06/16/2022 10:59 AM EDT Called Client Services, spoke with Eduard. On hold for 13 minutes. Unable to add A1c. Pt sent [employer] message notifying him of result below from Provider. Made pt aware that incorrect lab was ordered and asked him to come in and complete an A1c. Apologized for inconvenience. Karen Varghese Ma * Telephone Encounter - Lia Markham MD - 06/16/2022 8:04 AM EDT Sugar was 215. Rest of labs ok. Can we add a1c to see where it is. documented in this encounterSheltering Arms Hospital07-26-2022 Instructions* Patient Instructions* Isabela Hernández APRN.CNP - 06/15/2022 9:00 AM EDT 1. Start the naproxen twice daily with food X 1 week. Then you can use twice daily as needed. 2. Get the labwork. 3. Get the xray done. 4. Let us know if no better or any worsening. documented in this encounterSheltering Arms Hospital07-26-2022 History of Present illness Narrative* Isabela Hernández, HARJINDER.SPORTS TEAM MANAGER - 06/15/2022 8:48 AM EDT This is [...] as needed for worsening/no improvement. Isabela Hernández APRN.SPORTS TEAM MANAGER documented in this encounterSheltering Arms Hospital06-15-2022 Miscellaneous Notes* Telephone Encounter - Alicia Reyes LPN - 05/05/2022 10:55 AM EDT Faxed back as requested. * Telephone Encounter - Lia Markham MD - 05/05/2022 10:13 AM EDT done * Telephone Encounter - Karen Varghese Ma - 05/05/2022 8:59 AM EDT Office received fax from [employer] for certificate of medical necessity for pt DME supplies. Routedto PCP to review and complete. Once complete fax back to [phone]. Karen Varghese Ma documented in this encounterSheltering Arms Hospital03-28-2022 Instructions* Patient Instructions* Lia Markham MD - 02/15/2022 11:14 AM EDT Increase humalog to 17 units with each meal and call sugars in two weeks. Watch diet and increase exercise to help as well. documented in this encounterSheltering Arms Hospital03-28-2022 History of Present illness Narrative* Lia Markham [...] lymphadenopathy; right pleural effusion EXTER CAROTIDS UNI 2011 NEGATIVE EYE SURGERY HX NM CARDIAC PERF [...] six months 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 Neoplasm of uncertain behavi or of skin: R congregation face: R/O BCC 10/12/2011 09/21/2016 Actinic Keratosis [...] of this encounter (statuses as of 02/18/2022) [facility] of [facility] illness Narrative* Problem Noted Date Resolved Date 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 Neoplasm of uncertain behavi or of skin: R congregation face: R/O BCC 10/12/2011 09/21/2016 Actinic Keratosis [...] of this encounter (statuses as of 03/24/2022) [facility] of [facility] Narrative* Problem Noted Date Resolved Date 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 Neoplasm of uncertain behavi or of skin: R congregation face: R/O BCC 10/12/2011 09/21/2016 Actinic Keratosis [...] of this encounter (statuses as of 05/05/2022) [facility] of [facility] Narrative* Problem Noted Date Resolved Date 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 Neoplasm of uncertain behavi or of skin: R congregation face: R/O BCC 10/12/2011 09/21/2016 Actinic Keratosis [...] of this encounter (statuses as of 06/15/2022) [facility] of [facility] Narrative* Problem Noted Date Resolved Date 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 Neoplasm of uncertain behavi or of skin: R congregation face: R/O BCC 10/12/2011 09/21/2016 Actinic Keratosis [...] of this encounter (statuses as of 06/16/2022) [facility] of [facility] Narrative* Problem Noted Date Resolved Date 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 Neoplasm of uncertain behavi or of skin: R congregation face: R/O BCC 10/12/2011 09/21/2016 Actinic Keratosis [...] of this encounter (statuses as of 06/21/2022) [facility]ative* Problem Noted Date Resolved Date 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 Neoplasm of uncertain behavi or of skin: R congregation face: R/O BCC 10/12/2011 09/21/2016 Actinic Keratosis [...] of this encounter (statuses as of 06/24/2022) [facility] Narrative* Problem Noted Date Resolved Date 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 Neoplasm of uncertain behavi or of skin: R congregation face: R/O BCC 10/12/2011 09/21/2016 Actinic Keratosis [...] of this encounter (statuses as of 06/24/2022) [facility]ative* Problem Noted Date Resolved Date 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 Neoplasm of uncertain behavi or of skin: R congregation face: R/O BCC 10/12/2011 09/21/2016 Actinic Keratosis [...] of this encounter (statuses as of 06/25/2022) [facility]ative* Problem Noted Date Resolved Date 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 Neoplasm of uncertain behavi or of skin: R congregation face: R/O BCC 10/12/2011 09/21/2016 Actinic Keratosis [...] of this encounter (statuses as of 07/02/2022) [facility]ative* Problem Noted Date Resolved Date 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 Neoplasm of uncertain behavi or of skin: R congregation face: R/O BCC 10/12/2011 09/21/2016 Actinic Keratosis [...] of this encounter (statuses as of 07/05/2022) [facility]* Problem Noted Date Resolved Date 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 Neoplasm of uncertain behavi or of skin: R congregation face: R/O BCC 10/12/2011 09/21/2016 Actinic Keratosis [...] of this encounter (statuses as of 07/20/2022) [facility]arrative* Problem Noted Date Resolved Date 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 Neoplasm of uncertain behavi or of skin: R congregation face: R/O BCC 10/12/2011 09/21/2016 Actinic Keratosis [...] of this encounter (statuses as of 08/18/2022) [facility]* Problem Noted Date Resolved Date 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 Neoplasm of uncertain behavi or of skin: R congregation face: R/O BCC 10/12/2011 09/21/2016 Actinic Keratosis [...] of this encounter (statuses as of 08/20/2022) [facility]* Problem Noted Date Resolved Date 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 Neoplasm of uncertain behavi or of skin: R congregation face: R/O BCC 10/12/2011 09/21/2016 Actinic Keratosis [...] of this encounter (statuses as of 08/25/2022) [facility]* Problem Noted Date Resolved Date 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 Neoplasm of uncertain behavi or of skin: R congregation face: R/O BCC 10/12/2011 09/21/2016 Actinic Keratosis [...] of this encounter (statuses as of 08/27/2022) [facility]ative* Problem Noted Date Resolved Date 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 Neoplasm of uncertain behavi or of skin: R congregation face: R/O BCC 10/12/2011 09/21/2016 Actinic Keratosis [...] of this encounter (statuses as of 08/31/2022) [facility]ative* Problem Noted Date Resolved Date 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 Neoplasm of uncertain behavi or of skin: R congregation face: R/O BCC 10/12/2011 09/21/2016 Actinic Keratosis [...] of this encounter (statuses as of 08/31/2022) [facility]ative* Problem Noted Date Resolved Date 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 Neoplasm of uncertain behavi or of skin: R congregation face: R/O BCC 10/12/2011 09/21/2016 Actinic Keratosis [...] of this encounter (statuses as of 09/03/2022) [facility]* Problem Noted Date Resolved Date 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 Neoplasm of uncertain behavi or of skin: R congregation face: R/O BCC 10/12/2011 09/21/2016 Actinic Keratosis [...] of this encounter (statuses as of 09/06/2022) [facility]* Problem Noted Date Resolved Date 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 Neoplasm of uncertain behavi or of skin: R congregation face: R/O BCC 10/12/2011 09/21/2016 Actinic Keratosis [...] of this encounter (statuses as of 09/07/2022) [facility]ative* Problem Noted Date Resolved Date 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 Neoplasm of uncertain behavi or of skin: R congregation face: R/O BCC 10/12/2011 09/21/2016 Actinic Keratosis [...] of this encounter (statuses as of 09/07/2022) [facility]* Problem Noted Date Resolved Date 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 Neoplasm of uncertain behavi or of skin: R congregation face: R/O BCC 10/12/2011 09/21/2016 Actinic Keratosis [...] of this encounter (statuses as of 09/09/2022) [facility]arrative* Problem Noted Date Resolved Date 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 Neoplasm of uncertain behavi or of skin: R congregation face: R/O BCC 10/12/2011 09/21/2016 Actinic Keratosis [...] of this encounter (statuses as of 09/10/2022) [facility]* Problem Noted Date Resolved Date 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 Neoplasm of uncertain behavi or of skin: R congregation face: R/O BCC 10/12/2011 09/21/2016 Actinic Keratosis [...] of this encounter (statuses as of 09/14/2022) [facility]* Problem Noted Date Resolved Date 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 Neoplasm of uncertain behavi or of skin: R congregation face: R/O BCC 10/12/2011 09/21/2016 Actinic Keratosis [...] of this encounter (statuses as of 09/20/2022) [facility]* Problem Noted Date Resolved Date 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 Neoplasm of uncertain behavi or of skin: R congregation face: R/O BCC 10/12/2011 09/21/2016 Actinic Keratosis [...] of this encounter (statuses as of 09/21/2022) [facility]* Problem Noted Date Resolved Date 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 Neoplasm of uncertain behavi or of skin: R congregation face: R/O BCC 10/12/2011 09/21/2016 Actinic Keratosis [...] of this encounter (statuses as of 09/22/2022) [facility]ative* Problem Noted Date Resolved Date 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 Neoplasm of uncertain behavi or of skin: R congregation face: R/O BCC 10/12/2011 09/21/2016 Actinic Keratosis [...] of this encounter (statuses as of 10/22/2022) [facility]* Problem Noted Date Resolved Date 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 Neoplasm of uncertain behavi or of skin: R congregation face: R/O BCC 10/12/2011 09/21/2016 Actinic Keratosis [...] of this encounter (statuses as of 10/22/2022) [facility]* Problem Noted Date Resolved Date 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 Neoplasm of uncertain behavi or of skin: R congregation face: R/O BCC 10/12/2011 09/21/2016 Actinic Keratosis [...] of this encounter (statuses as of 11/04/2022) [facility]* Problem Noted Date Resolved Date 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 Neoplasm of uncertain behavi or of skin: R congregation face: R/O BCC 10/12/2011 09/21/2016 Actinic Keratosis [...] of this encounter (statuses as of 02/07/2023) [facility]* Problem Noted Date Resolved Date 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 Neoplasm of uncertain behavi or of skin: R congregation face: R/O BCC 10/12/2011 09/21/2016 Actinic Keratosis [...] of this encounter (statuses as of 02/11/2023) [facility]* Problem Noted Date Resolved Date 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 Neoplasm of uncertain behavi or of skin: R congregation face: R/O BCC 10/12/2011 09/21/2016 Actinic Keratosis [...] of this encounter (statuses as of 03/21/2023) [facility]* Problem Noted Date Resolved Date 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 Neoplasm of uncertain behavi or of skin: R congregation face: R/O BCC 10/12/2011 09/21/2016 Actinic Keratosis [...] of this encounter (statuses as of 03/22/2023) [facility]* Problem Noted Date Resolved Date 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 Neoplasm of uncertain behavi or of skin: R congregation face: R/O BCC 10/12/2011 09/21/2016 Actinic Keratosis [...] of this encounter (statuses as of 04/04/2023) [facility]* Problem Noted Date Resolved Date 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 Neoplasm of uncertain behavi or of skin: R congregation face: R/O BCC 10/12/2011 09/21/2016 Actinic Keratosis [...] of this encounter (statuses as of 04/04/2023) [facility]* Problem Noted Date Diagnosed Date Resolved Date 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 09/21/2016 Neoplasm of uncertain behavi or of skin: R congregation face: R/O BCC 10/12/2011 09/21/2016 Actinic Keratosis [...] of this encounter (statuses as of 06/03/2023) [facility]* Problem Noted Date Diagnosed Date Resolved Date 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 09/21/2016 Neoplasm of uncertain behavi or of skin: R congregation face: R/O BCC 10/12/2011 09/21/2016 Actinic Keratosis [...] of this encounter (statuses as of 07/11/2023) [facility]* Problem Noted Date Diagnosed Date Resolved Date 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 09/21/2016 Neoplasm of uncertain behavi or of skin: R congregation face: R/O BCC 10/12/2011 09/21/2016 Actinic Keratosis [...] of this encounter (statuses as of 08/10/2023) [facility]* Problem Noted Date Diagnosed Date Resolved Date 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 09/21/2016 Neoplasm of uncertain behavi or of skin: R congregation face: R/O BCC 10/12/2011 09/21/2016 Actinic Keratosis [...] of this encounter (statuses as of 08/16/2023) [facility]* Problem Noted Date Diagnosed Date Resolved Date 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 09/21/2016 Neoplasm of uncertain behavi or of skin: R congregation face: R/O BCC 10/12/2011 09/21/2016 Actinic Keratosis [...] of this encounter (statuses as of 09/05/2023) [facility]* Problem Noted Date Diagnosed Date Resolved Date 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 09/21/2016 Neoplasm of uncertain behavi or of skin: R congregation face: R/O BCC 10/12/2011 09/21/2016 Actinic Keratosis [...] of this encounter (statuses as of 09/08/2023) [facility]* Problem Noted Date Diagnosed Date Resolved Date 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 09/21/2016 Neoplasm of uncertain behavi or of skin: R congregation face: R/O BCC 10/12/2011 09/21/2016 Actinic Keratosis [...] of this encounter (statuses as of 09/09/2023) [facility]* Problem Noted Date Diagnosed Date Resolved Date 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 09/21/2016 Neoplasm of uncertain behavi or of skin: R congregation face: R/O BCC 10/12/2011 09/21/2016 Actinic Keratosis [...] of this encounter (statuses as of 09/15/2023) [facility]* Problem Noted Date Diagnosed Date Resolved Date 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 09/21/2016 Neoplasm of uncertain behavi or of skin: R congregation face: R/O BCC 10/12/2011 09/21/2016 Actinic Keratosis [...] of this encounter (statuses as of 09/15/2023) [facility]* Problem Noted Date Diagnosed Date Resolved Date 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 09/21/2016 Neoplasm of uncertain behavi or of skin: R congregation face: R/O BCC 10/12/2011 09/21/2016 Actinic Keratosis [...] of this encounter (statuses as of 09/20/2023) [facility]* Problem Noted Date Diagnosed Date Resolved Date 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 09/21/2016 Neoplasm of uncertain behavi or of skin: R congregation face: R/O BCC 10/12/2011 09/21/2016 Actinic Keratosis [...] of this encounter (statuses as of 09/27/2023) [facility]* Problem Noted Date Diagnosed Date Resolved Date 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 09/21/2016 Neoplasm of uncertain behavi or of skin: R congregation face: R/O BCC 10/12/2011 09/21/2016 Actinic Keratosis [...] of this encounter (statuses as of 09/27/2023) [facility]* Problem Noted Date Diagnosed Date Resolved Date 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 09/21/2016 Neoplasm of uncertain behavi or of skin: R congregation face: R/O BCC 10/12/2011 09/21/2016 Actinic Keratosis [...] of this encounter (statuses as of 09/29/2023) [facility] Diagnosis Controlled type 2 diabetes mellitus without complication, without long-term current use of insulin ([facility])- Primary Bilateral carotid artery stenosis Occlusion and stenosis of carotid artery without mention of cerebral infarction Abdominal aortic aneurysm (AAA) without rupture (HCC) Hyperlipidemia, unspecified hyperlipidemia type CALLI (obstructive sleep apnea) Obstructive sleep apnea (adult) (pediatric) [facility] Diagnosis Pain of toe, unspecified laterality- Primary [facility] Diagnosis Controlled type 2 diabetes mellitus without complication, without long-term current use of insulin (HCC)- Primary [facility] Diagnosis Acute otitis media, right- Primary Unspecified otitis media [facility] Diagnosis Acute otitis externa of right ear, unspecified type- Primary [facility] Diagnosis Pain of toe, unspecified laterality- Primary Controlled type 2 diabetes mellitus without complication, without long-term current use of insulin (HCC) documented in this encounter [facility]* Diagnosis Controlled type 2 diabetes [...] unspecified single disease [facility] Diagnosis CALLI (obstructive sleep apnea)- Primary Obstructive sleep apnea (adult) (pediatric) [facility] Diagnosis Abdominal aortic aneurysm (AAA) without rupture [facility] Diagnosis SOB (shortness of breath)- Primary Shortness of breath CALLI (obstructive sleep apnea) Obstructive sleep apnea (adult) (pediatric) Cough, unspecified type Abdominal aortic aneurysm (AAA) without rupture, unspecified part [facility] Diagnosis SOB (shortness of breath) Shortness of breath [facility] Diagnosis SOB (shortness of breath) Shortness of breath [facility] Diagnosis Lung fibrosis (HCC) Postinflammatory pulmonary fibrosis SOB (shortness of breath) Shortness of breath [facility] Diagnosis CALLI (obstructive sleep apnea) Obstructive sleep apnea (adult) (pediatric) [facility] Diagnosis 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 SOB (shortness of breath) Shortness of breath [facility] Diagnosis At risk for shortness of breath- Primary SOB (shortness of breath) Shortness of breath [facility]* Diagnosis Bronchiectasis without complication (HCC)- Primary Bronchiectasis without acute exacerbation CALLI (obstructive sleep apnea) Obstructive sleep apnea (adult) (pediatric) documented [facility] this encounter [facility]* Diagnosis Stage 3 severe COPD by GOLD classification ([facility])- Primary Former cigarette smoker Personal history of tobacco use, presenting hazards to health Class 1 obesity due to excess calories with body mass index (BMI) of 33.0 to 33.9 in adult, unspecified whether serious comorbidity present documented [facility] this encounter [facility]* Diagnosis Stage 3 severe COPD by GOLD classification ([facility])- Primary Mild depressive disorder Bronchiectasis without complication (HCC) Bronchiectasis without acute exacerbation Controlled type 2 diabetes mellitus without complication, without long-term current use of insulin (HCC) documented [facility] this encounter [facility]* Diagnosis Controlled type 2 diabetes mellitus without complication, without long-term current use of insulin (HCC) documented [facility] this encounter [facility]* Diagnosis Post-void dribbling- Primary [facility] Diagnosis Cigarette smoker- Primary Tobacco use disorder [facility] Diagnosis History of stroke with residual [...] of lung field documented in this encounter [facility] note* Diagnosis Moderate COPD (chronic obstructive pulmonary disease) (HCC)- Primary Chronic airway obstruction, not elsewhere classified Former cigarette smoker Personal history of tobacco use, presenting hazards to health [facility]* Diagnosis Encounter for screening for lung cancer- Primary Former cigarette smoker Personal history of tobacco use, presenting hazards to health [facility] Diagnosis Abdominal aortic aneurysm (AAA) without rupture, unspecified part (HCC) documented in this encounter [facility] note* Diagnosis Personal history of tobacco use, presenting hazards to health- Primary [facility] Diagnosis Cerebrovascular accident (CVA), unspecified mechanism (HCC)- Primary Controlled type 2 diabetes mellitus without complication, without long-term current use of insulin (HCC) History of diabetes mellitus Personal history of other endocrine, metabolic, and immunity disorders Infarction of thalamus (HCC) Hyperlipidemia, unspecified hyperlipidemia type [facility] Diagnosis Controlled type 2 diabetes mellitus without complication, without long-term current use of insulin (HCC) [facility] Diagnosis Controlled type 2 diabetes mellitus without complication, without long-term current use of insulin (HCC)- Primary documented in this encounter [facility] note* Diagnosis Cerebrovascular accident (CVA), unspecified mechanism (HCC)- Primary documented in this encounter [facility] for referral (narrative)* Diagnostic Procedure Only (Routine) - Closed Specialty Diagnoses / Procedures Referred By Contac t Referred To Contact XR IMAGING Diagnoses Pain of toe, unspecified laterality Procedures XR TOE AP/LAT/OBL LEFT RADEX TOE MINIMUM 2 VIEWS Isabela Hernández, NOR[address] [place] [address] [facility] Referral ID Status Reason Start Date Expiration Date V isits Requested Visits Authorized [id number] Closed Auto-Generate d Referral 06/15/2022 07/15/[address] [facility] for referral (narrative)* Outpatient Procedure (Routine) - Authorized Specialty Diagnoses / Procedures Referred By Contac t Referred To [facility] Diagnoses Bilateral carotid artery stenosis Procedures US CAROTID ARTERIES [facility] LAB DUPLEX SCAN EXTRACRANIAL ART COMPL BI STUDY Lia Markham MD [address] [place] [address] [facility] [place] [address] [place] [address] Referral ID Status Reason Start Date Expiration Date Visits Requested Visits Authorized [id number] Authorized Auto-Generat ed Referral 08/20/2022 08/20/2023 1 1 * Diagnostic Procedure Only (Routine) - Authorized Specialty Diagnoses / Procedures Referred By Contac t Referred To Contact US IMAGING Diagnoses Abdominal aortic aneurysm (AAA) without rupture Procedures US DOPPLER AORTA DUP-SCAN ARTL DANIS ABDL/PEL/SCROT&/RPR ORGN LMT Lia Markham MD [address] [place] [address] Us Imaging Referral ID Status Reason Start Date Expiration Date Visits Requested Visits Authorized [id number] Authorized Auto-Generat ed Referral 08/20/2022 09/19/2023 1 1 * Diagnostic Procedure Only (Routine) - Authorized Specialty Diagnoses / Procedures Referred By Contac t Referred To Contact US IMAGING Diagnoses Abdominal aortic aneurysm (AAA) without rupture Procedures US ABD AORTA US RETROPERITONEAL REAL TIME W/IMAGE LIMITED Lia Markham MD [address] [place] [address] Us Imaging Referral ID Status Reason Start Date Expiration Date Visits Requested Visits Authorized [id number] Authorized Auto-Generat ed Referral 08/20/2022 09/19/[address] [facility] for referral (narrative)* Diagnostic Procedure Only (Routine) - Closed Specialty Diagnoses / Procedures Referred By Contac t Referred To Contact US IMAGING Diagnoses Abdominal aortic aneurysm (AAA) without rupture Procedures US DOPPLER AORTA DUP-SCAN ARTL DANIS ABDL/PEL/SCROT&/RPR ORGN LMT Lia Markham MD [address] [place] [address] Us Imaging Referral ID Status Reason Start Date Expiration Date V isits Requested Visits Authorized [id number] Closed Auto-Generate d Referral 08/20/2022 09/19/2023 1 1 * Diagnostic Procedure Only (Routine) - Closed Specialty Diagnoses / Procedures Referred By Contac t Referred To Contact US IMAGING Diagnoses Abdominal aortic aneurysm (AAA) without rupture Procedures US ABD AORTA US RETROPERITONEAL REAL TIME W/IMAGE LIMITED Lia Markham MD [address] [place] [address] Us Imaging Referral ID Status Reason Start Date Expiration Date V isits Requested Visits Authorized [id number] Closed Auto-Generate d Referral 08/20/2022 09/19/[address] [facility] for referral (narrative)* Outpatient Procedure (Routine) - Authorized Specialty Diagnoses / Procedures Referred By Contac t Referred To Contact [facility] Diagnoses SOB (shortness of breath) Procedures SPIROMETRY WITH DILATOR IF OBSTRUCTED BRNCDILAT RSPSE SPMTRY PRE&POST-BRNCDILAT ADMN Lia Markham MD [address] [place] [address] [address] Referral ID Status Reason Start Date Expiration Date Visits Requested Visits Authorized [id number] Authorized Auto-Generat ed Referral 2 10/03/2023 1 1 * Outpatient Procedure (Routine) - Authorized Specialty Diagnoses / [facility] Diagnoses SOB (shortness of breath) Procedures LUNG DIFFUSION CAPACITY (DLCO) DIFFUSING CAPACITY Lia Markham MD [address] [place] [address] [address] Referral ID Status Reason Start Date Expiration Date Visits Requested Visits Authorized [id number] Authorized Auto-Generat ed Referral 2 10/03/2023 1 1 * Outpatient Procedure (Routine) - Authorized Specialty Diagnoses / Procedures [facility] Diagnoses SOB (shortness of breath) Procedures LUNG VOLUMES Lia Markham MD [address] [place] [address] [address] Referral ID Status Reason Start Date Expiration Date Visits Requested Visits Authorized [id number] Authorized Auto-Generat ed Referral 2 10/03/2023 1 1 * Outpatient Procedure (Routine) - Authorized Specialty Diagnoses / Procedures Referred By Contac t Referred To [facility] Diagnoses SOB (shortness of breath) Procedures ECG COMPLETE ECG ROUTINE ECG W/LEAST 12 LDS W/I&R Lia Markham MD [address] [place] [address] [facility] [place] [address] [place] [address] Referral ID Status Reason Start Date Expiration Date Visits Requested Visits Authorized [id number] Authorized Auto-Generat ed Referral 2 09/03/[address] [facility] for referral (narrative)* Diagnostic Procedure Only (Routine) - Authorized Specialty Diagnoses / Procedures Referred By Contac t Referred To Contact US IMAGING Diagnoses Abdominal aortic aneurysm (AAA) without rupture, unspecified part (HCC) Procedures US DOPPLER AORTA DUP-SCAN ARTL DANIS ABDL/PEL/SCROT&/[place] [address] [place] [address] Us Imaging [id number] Referral ID Status Reason Start Date Expiration Date Visits Requested Visits Authorized [id number] Authorized Auto-Generat ed Referral 3 10/13/2024 1 1 * Diagnostic Procedure Only (Routine) - Authorized Specialty Diagnoses / Procedures Referred By Contac t Referred To Contact US IMAGING Diagnoses Abdominal aortic aneurysm (AAA) without rupture, unspecified part (HCC) Procedures US ABD AORTA US RETROPERITONEAL REAL TIME W/IMAGE LIMITED Lia Markham MD [address] [place] [address] Us Imaging [id number] Referral ID Status Reason Start Date Expiration Date Visits Requested Visits Authorized [id number] Authorized Auto-Generat ed Referral 3 10/13/2024 1 1 * Consult, Test, Treat (Routine) - Authorized Specialty Diagnoses / Procedures Referred By Contac t Referred To Contact Neurology Diagnoses Cerebrovascular accident (CVA), unspecified mechanism (HCC) Infarction of thalamus (HCC) Procedures CONSULT TO NEUROLOGY OFFICE/OUTPATIENT [facility] 60-74 MINUTES Lia Markham MD [address] [place] [address] Referral ID Status Reason Start Date Expiration Date Visits Requested Visits Authorized [id number] Authorized PCP Requested Referral 3 09/13/2024 1 1 * Occupational Therapy (Routine) - Authorized Specialty Diagnoses / Procedures Referred By Starr t Referred To Contact [facility] Diagnoses History of stroke with residual effects Procedures CONSULT TO PURCHASING/RECEIVING OCCUPATIONAL THERAPY EVAL [facility] COMPLEX 60 MINS Lia Markham MD [address] [place] [address] [address] Referral ID Status Reason Start Date Expiration Date Visits Requested Visits Authorized [id number] Authorized PCP Requested Referral Auto-Generate d Referral 3 09/13/2024 99 99 * Speech Therapy (Routine) - Authorized Specialty Diagnoses / Procedures Referred By Starr yung Referred To Contact [facility] Diagnoses History of stroke with residual effects Procedures CONSULT TO SPEECH THERAPY OFFICE/OUTPATIENT [facility] 60-[place] [address] [place] [address] [address] Referral ID Status Reason Start Date Expiration Date Visits Requested Visits Authorized [id number] Authorized Auto-Generat ed Referral 3 09/13/2024 99 99 * Physical Therapy (Routine) - Authorized Specialty Diagnoses / Procedures Referred By Starr t Referred To Contact [facility] Diagnoses History of stroke with residual effects Procedures CONSULT TO PHYSICAL THERAPY PHYSICAL THERAPY [facility] COMPLEX 45 MINS Lia Markham MD [address] [place] [address] [facility] [place] [address] [place] [address] Referral ID Status Reason Start Date Expiration Date Visits Requested Visits Authorized [id number] Authorized PCP Requested Referral Auto-Generate d Referral 09/13/2024 99 99 [facility] Diagnostic Procedure Only (Routine) - Closed Specialty Diagnoses / Procedures Referred By Contac t Referred To Contact US IMAGING Diagnoses Abdominal aortic aneurysm (AAA) without rupture, unspecified part (HCC) Procedures US DOPPLER AORTA DUP-SCAN ARTL DANIS ABDL/PEL/SCROT&/RPR ORGN LMT Lia Markham MD [address] [place] [address] Us Imaging [id number] Referral ID Status Reason Start Date Expiration Date V isits Requested Visits Authorized [id number] Closed Auto-Generate d Referral 09/14/2023 10/13/2024 1 1 * Diagnostic Procedure Only (Routine) - Closed Specialty Diagnoses / Procedures Referred By Contac t Referred To Contact US IMAGING Diagnoses Abdominal aortic aneurysm (AAA) without rupture, unspecified part (HCC) Procedures US ABD AORTA US RETROPERITONEAL REAL TIME W/IMAGE LIMITED Lia Markham MD [address] [place] [address] Us Imaging [id number] Referral ID Status Reason Start Date Expiration Date V isits Requested Visits Authorized [id number] Closed Auto-Generate d Referral 09/14/2023 10/13/2024 1 1 [facility] Advance Directives No Advanced Directives Records FoundDocuments on File Type Date Recorded 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 Expl 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 Advance Directive(s) 10/06/2021 6:19 AM Advance Directive(s) 09/15/2021 10:31 AM Advance Directive(s) 06/06/2017 8:13 AM Documents on File Type Date Recorded 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 Expl anation Advance Directive(s) 10/06/2021 6:19 [...] unspecified laterality Procedures CONSULT TO PODIATRY OFFICE/OUTPATIENT [facility] 60-[place] [address] [place] [address] Referral ID Status Reason Start Date Expiration Date Visits Requested Visits Authorized [id number] Authorized PCP Requested Referral 06/25/2022 06/25/2023 1 1 Specialty Diagnoses / Procedures Referred By Contac t Referred To Contact CT IMAGING Diagnoses Lung fibrosis (HCC) SOB (shortness of breath) Procedures CT CHEST WO IVCON DIAGNOSTIC COMPUTED TOMOGRAPHY THORAX W/O CNTRST Lia Markham MD [address] [place] [address] [address] Referral ID Status Reason Start Date Expiration Date V isits Requested Visits Authorized [id number] Closed Auto-Generate d Referral 09/03/2022 10/03/2023 1 1 Specialty Diagnoses / Procedures Referred By Contac t Referred To Contact [facility] Diagnoses SOB (shortness of breath) Procedures CONSULT TO PULM/CRITICAL CARE OFFICE/OUTPATIENT [facility] 60-74 MINUTES Lia Markham MD [address] [place] [address] Referral ID Status Reason Start Date Expiration Date Visits Requested Visits Authorized [id number] Authorized PCP Requested Referral 09/07/2023 1 1 Specialty Diagnoses / Procedures Referred By Contac t Referred To Contact Urology Diagnoses Post-void dribbling Procedures CONSULT TO UROLOGY Lia Markham MD [address] [place] [address] Referral ID Status Reason Start Date Expiration Date Visits Requested Visits Authorized [id number] Ref Not Required PCP Requested Referral 02/11/2023 02/11/2024 1 1 Specialty Diagnoses / Procedures Referred By Contac t Referred To Contact CT IMAGING Diagnoses Former cigarette smoker Procedures CT LUNG SCREEN WO IVCON COMPUTED TOMOGRAPHY THORAX LW DOSE LNG CA 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, FLORIST MANAGER.SPORTS TEAM MANAGER [id number] [id number] Referral ID Status Reason Start Date Expiration Date Visits Requested Visits Authorized [id number] Authorized Auto-Generat ed Referral 3 10/19/2024 1 1 Specialty Diagnoses / Procedures Referred By Contac t Referred To Contact CT IMAGING Diagnoses Personal history of tobacco use, presenting hazards to health Procedures CT LUNG SCREEN WO IVCON COMPUTED TOMOGRAPHY THORAX LW DOSE LNG CA Angeles Welsh, FLORIST MANAGER.SPORTS TEAM MANAGER [address] [place] [address] Ct Imaging [place] [address] Referral ID Status Reason Start Date Expiration Date Visits Requested Visits Authorized [id number] Pending Review Auto-Generat ed Referral 09/29/2023 10/28/2024 [...] or prosecute any alcohol or drug abuse patient.[facility] the event this information is protected by the Federal Confidentiality of Alcohol and Drug Abuse Patient Records regulations: The Federal rules restrict any use of the information to criminally investigate or prosecute any alcohol or drug abuse patient.[facility] the event this information is protected by the Federal Confidentiality of Alcohol and Drug Abuse Patient Records regulations: The Federal rules restrict any use of the information to criminally investigate or prosecute any alcohol or drug abuse patient.[facility]In the event this information is protected by the Federal Confidentiality of Alcohol and Drug Abuse Patient Records regulations: The Federal rules restrict any use of the information to criminally investigate or prosecute any alcohol or drug abuse patient.[facility] the event this information is protected by the Federal Confidentiality of Alcohol and Drug Abuse Patient Records regulations: The Federal rules restrict any use of the information to criminally investigate or prosecute any alcohol or drug abuse patient.[facility]In the event this information is protected by the Federal Confidentiality of Alcohol and Drug Abuse Patient Records regulations: The Federal rules restrict any use of the information to criminally investigate or prosecute any alcohol or drug abuse patient.[facility]In the event this information is protected by the Federal Confidentiality of Alcohol and Drug Abuse Patient Records regulations: The Federal rules restrict any use of the information to criminally investigate or prosecute any alcohol or drug abuse patient.[facility] the event this information is protected by the Federal Confidentiality of Alcohol and Drug Abuse Patient Records regulations: The Federal rules restrict any use of the information to criminally investigate or prosecute any alcohol or drug abuse patient.[facility]In the event this information is protected by the Federal Confidentiality of Alcohol and Drug Abuse Patient Records regulations: The Federal rules restrict any use of the information to criminally investigate or prosecute any alcohol or drug abuse patient.[facility]In the event this information is protected by the Federal Confidentiality of Alcohol and Drug Abuse Patient Records regulations: The Federal rules restrict any use of the information to criminally investigate or prosecute any alcohol or drug abuse patient.[facility]In the event this information is protected by the Federal Confidentiality of Alcohol and Drug Abuse Patient Records regulations: The Federal rules restrict any use of the information to criminally investigate or prosecute any alcohol or drug abuse patient.[facility] HospitalIn the event this information is protected by the Federal Confidentiality of Alcohol and Drug Abuse Patient Records regulations: The Federal rules restrict any use of the information to criminally investigate or prosecute any alcohol or drug abuse patient.[facility] HospitalIn the event this information is protected by the Federal Confidentiality of Alcohol and Drug Abuse Patient Records regulations: The Federal rules restrict any use of the information to criminally investigate or prosecute any alcohol or drug abuse patient.[facility]In the event this information is protected by the Federal Confidentiality of Alcohol and Drug Abuse Patient Records regulations: The Federal rules restrict any use of the information to criminally investigate or prosecute any alcohol or drug abuse patient.[facility]In the event this information is protected by the Federal Confidentiality of Alcohol and Drug Abuse Patient Records regulations: The Federal rules restrict any use of the information to criminally investigate or prosecute any alcohol or drug abuse patient.[facility]In the event this information is protected by the Federal Confidentiality of Alcohol and Drug Abuse Patient Records regulations: The Federal rules restrict any use of the information to criminally investigate or prosecute any alcohol or drug abuse patient.[facility] HospitalIn the event this information is protected by the Federal Confidentiality of Alcohol and Drug Abuse Patient Records regulations: The Federal rules restrict any use of the information to criminally investigate or prosecute any alcohol or drug abuse patient.[facility] HospitalIn the event this information is protected by the Federal Confidentiality of Alcohol and Drug Abuse Patient Records regulations: The Federal rules restrict any use of the information to criminally investigate or prosecute any alcohol or drug abuse patient.[facility] HospitalIn the event this information is protected by the Federal Confidentiality of Alcohol and Drug Abuse Patient Records regulations: The Federal rules restrict any use of the information to criminally investigate or prosecute any alcohol or drug abuse patient.[facility] HospitalIn the event this information is protected by the Federal Confidentiality of Alcohol and Drug Abuse Patient Records regulations: The Federal rules restrict any use of the information to criminally investigate or prosecute any alcohol or drug abuse patient.[facility] HospitalIn the event this information is protected by the Federal Confidentiality of Alcohol and Drug Abuse Patient Records regulations: The Federal rules restrict any use of the information to criminally investigate or prosecute any alcohol or drug abuse patient.[facility] HospitalIn the event this information is protected by the Federal Confidentiality of Alcohol and Drug Abuse Patient Records regulations: The Federal rules restrict any use of the information to criminally investigate or prosecute any alcohol or drug abuse patient.[facility] HospitalIn the event this information is protected by the Federal Confidentiality of Alcohol and Drug Abuse Patient Records regulations: The Federal rules restrict any use of the information to criminally investigate or prosecute any alcohol or drug abuse patient.[facility] HospitalIn the event this information is protected by the Federal Confidentiality of Alcohol and Drug Abuse Patient Records regulations: The Federal rules restrict any use of the information to criminally investigate or prosecute any alcohol or drug abuse patient.[facility] HospitalIn the event this information is protected by the Federal Confidentiality of Alcohol and Drug Abuse Patient Records regulations: The Federal rules restrict any use of the information to criminally investigate or prosecute any alcohol or drug abuse patient.[facility] HospitalIn the event this information is protected by the Federal Confidentiality of Alcohol and Drug Abuse Patient Records regulations: The Federal rules restrict any use of the information to criminally investigate or prosecute any alcohol or drug abuse patient.[facility] HospitalIn the event this information is protected by the Federal Confidentiality of Alcohol and Drug Abuse Patient Records regulations: The Federal rules restrict any use of the information to criminally investigate or prosecute any alcohol or drug abuse patient.[facility]In the event this information is protected by the Federal Confidentiality of Alcohol and Drug Abuse Patient Records regulations: The Federal rules restrict any use of the information to criminally investigate or prosecute any alcohol or drug abuse patient.[facility] HospitalIn the event this information is protected by the Federal Confidentiality of Alcohol and Drug Abuse Patient Records regulations: The Federal rules restrict any use of the information to criminally investigate or prosecute any alcohol or drug abuse patient.[facility]In the event this information is protected by the Federal Confidentiality of Alcohol and Drug Abuse Patient Records regulations: The Federal rules restrict any use of the information to criminally investigate or prosecute any alcohol or drug abuse patient.[facility] HospitalIn the event this information is protected by the Federal Confidentiality of Alcohol and Drug Abuse Patient Records regulations: The Federal rules restrict any use of the information to criminally investigate or prosecute any alcohol or drug abuse patient.[facility] HospitalIn the event this information is protected by the Federal Confidentiality of Alcohol and Drug Abuse Patient Records regulations: The Federal rules restrict any use of the information to criminally investigate or prosecute any alcohol or drug abuse patient.[facility]In the event this information is protected by the Federal Confidentiality of Alcohol and Drug Abuse Patient Records regulations: The Federal rules restrict any use of the information to criminally investigate or prosecute any alcohol or drug abuse patient.[facility]In the event this information is protected by the Federal Confidentiality of Alcohol and Drug Abuse Patient Records regulations: The Federal rules restrict any use of the information to criminally investigate or prosecute any alcohol or drug abuse patient.[facility]In the event this information is protected by the Federal Confidentiality of Alcohol and Drug Abuse Patient Records regulations: The Federal rules restrict any use of the information to criminally investigate or prosecute any alcohol or drug abuse patient.[facility] HospitalIn the event this information is protected by the Federal Confidentiality of Alcohol and Drug Abuse Patient Records regulations: The Federal rules restrict any use of the information to criminally investigate or prosecute any alcohol or drug abuse patient.[facility] HospitalIn the event this information is protected by the Federal Confidentiality of Alcohol and Drug Abuse Patient Records regulations: The Federal rules restrict any use of the information to criminally investigate or prosecute any alcohol or drug abuse patient.[facility] HospitalIn the event this information is protected by the Federal Confidentiality of Alcohol and Drug Abuse Patient Records regulations: The Federal rules restrict any use of the information to criminally investigate or prosecute any alcohol or drug abuse patient.[facility] HospitalIn the event this information is protected by the Federal Confidentiality of Alcohol and Drug Abuse Patient Records regulations: The Federal rules restrict any use of the information to criminally investigate or prosecute any alcohol or drug abuse patient.[facility] HospitalIn the event this information is protected by the Federal Confidentiality of Alcohol and Drug Abuse Patient Records regulations: The Federal rules restrict any use of the information to criminally investigate or prosecute any alcohol or drug abuse patient.[facility] HospitalIn the event this information is protected by the Federal Confidentiality of Alcohol and Drug Abuse Patient Records regulations: The Federal rules restrict any use of the information to criminally investigate or prosecute any alcohol or drug abuse patient.[facility] HospitalIn the event this information is protected by the Federal Confidentiality of Alcohol and Drug Abuse Patient Records regulations: The Federal rules restrict any use of the information to criminally investigate or prosecute any alcohol or drug abuse patient.[facility] HospitalIn the event this information is protected by the Federal Confidentiality of Alcohol and Drug Abuse Patient Records regulations: The Federal rules restrict any use of the information to criminally investigate or prosecute any alcohol or drug abuse patient.[facility] HospitalIn the event this information is protected by the Federal Confidentiality of Alcohol and Drug Abuse Patient Records regulations: The Federal rules restrict any use of the information to criminally investigate or prosecute any alcohol or drug abuse patient.[facility] HospitalIn the event this information is protected by the Federal Confidentiality of Alcohol and Drug Abuse Patient Records regulations: The Federal rules restrict any use of the information to criminally investigate or prosecute any alcohol or drug abuse patient.[facility] HospitalIn the event this information is protected by the Federal Confidentiality of Alcohol and Drug Abuse Patient Records regulations: The Federal rules restrict any use of the information to criminally investigate or prosecute any alcohol or drug abuse patient.[facility] HospitalIn the event this information is protected by the Federal Confidentiality of Alcohol and Drug Abuse Patient Records regulations: The Federal rules restrict any use of the information to criminally investigate or prosecute any alcohol or drug abuse patient.[facility] HospitalIn the event this information is protected by the Federal Confidentiality of Alcohol and Drug Abuse Patient Records regulations: The Federal rules restrict any use of the information to criminally investigate or prosecute any alcohol or drug abuse patient.[facility] HospitalIn the event this information is protected by the Federal Confidentiality of Alcohol and Drug Abuse Patient Records regulations: The Federal rules restrict any use of the information to criminally investigate or prosecute any alcohol or drug abuse patient.[facility] HospitalIn the event this information is protected by the Federal Confidentiality of Alcohol and Drug Abuse Patient Records regulations: The Federal rules restrict any use of the information to criminally investigate or prosecute any alcohol or drug abuse patient.[facility] HospitalIn the event this information is protected by the Federal Confidentiality of Alcohol and Drug Abuse Patient Records regulations: The Federal rules restrict any use of the information to criminally investigate or prosecute any alcohol or drug abuse patient.[facility] HospitalIn the event this information is protected by the Federal Confidentiality of Alcohol and Drug Abuse Patient Records regulations: The Federal rules restrict any use of the information to criminally investigate or prosecute any alcohol or drug abuse patient.[facility] HospitalIn the event this information is protected by the Federal Confidentiality of Alcohol and Drug Abuse Patient Records regulations: The Federal rules restrict any use of the information to criminally investigate or prosecute any alcohol or drug abuse patient.[facility] HospitalIn the event this information is protected by the Federal Confidentiality of Alcohol and Drug Abuse Patient Records regulations: The Federal rules restrict any use of the information to criminally investigate or prosecute any alcohol or drug abuse patient.[facility] HospitalIn the event this information is protected by the Federal Confidentiality of Alcohol and Drug Abuse Patient Records regulations: The Federal rules restrict any use of the information to criminally investigate or prosecute any alcohol or drug abuse patient.[facility] HospitalIn the event this information is protected by the Federal Confidentiality of Alcohol and Drug Abuse Patient Records regulations: The Federal rules restrict any use of the information to criminally investigate or prosecute any alcohol or drug abuse patient.[facility] HospitalIn the event this information is protected by the Federal Confidentiality of Alcohol and Drug Abuse Patient Records regulations: The Federal rules restrict any use of the information to criminally investigate or prosecute any alcohol or drug abuse patient.[facility] HospitalIn the event this information is protected by the Federal Confidentiality of Alcohol and Drug Abuse Patient Records regulations: The Federal rules restrict any use of the information to criminally investigate or prosecute any alcohol or drug abuse patient.[facility] Reason for Visit (unrecogniz ed section and [...] REAL TIME W/IMAGE LIMITED Lia Markham MD [address] [place] [address] Us Imaging Referral ID Status Reason Start Date Expiration Date V isits Requested Visits Authorized [id number] Closed Auto-Generate d Referral 08/20/2022 09/19/2023 1 1 Reason Comments Breathing Problem Reason Comments Shortness of Breath SOB on exertion X 1 yr Reason Comments Spirometry Specialty Diagnoses / Procedures Referred By Contac t Referred To Contact [facility] Diagnoses SOB (shortness of breath) Procedures SPIROMETRY WITH DILATOR IF OBSTRUCTED BRNCDILAT RSPSE SPMTRY PRE&POST-BRNCDILAT ADMN Lia Markham MD [address] [place] [address] Respiratory [place] [address] [place] [address] Referral ID Status Reason Start Date Expiration Date V isits Requested Visits Authorized [id number] Closed Auto-Generate d Referral 09/03/2022 10/03/2023 1 1 Specialty Diagnoses / Procedures Referred By Contac t Referred To Contact [facility] Diagnoses SOB (shortness of breath) Procedures LUNG VOLUMES Lia Markham MD [address] [place] [address] [address] Referral ID Status Reason Start Date Expiration Date V isits Requested Visits Authorized [id number] Closed Auto-Generate d Referral 09/03/2022 10/03/2023 [address] Specialty Diagnoses / [facility] Diagnoses Lung fibrosis (HCC) SOB (shortness of breath) Procedures CT CHEST WO IVCON DIAGNOSTIC COMPUTED TOMOGRAPHY THORAX W/O CNTRST Lia Markham MD [address] [place] [address] Ct Imaging Referral ID Status Reason Start Date Expiration Date V isits Requested Visits Authorized [id number] Closed Auto-Generate d Referral 09/03/2022 10/03/2023 1 1 Reason Comments Results Reason Comments Consult Reason Comments fax request Reason Comments New Patient Dyspnea Shortness of Breath Specialty Diagnoses / Procedures Referred By Contac t Referred To Contact Pulmonary and Critical Care Medicine Diagnoses SOB (shortness of breath) Procedures CONSULT TO PULM/CRITICAL CARE OFFICE/OUTPATIENT NEW HIGH MDM 60-74 MINUTES Lia Markham MD [address] [place] [address] Referral ID Status Reason Start Date Expiration Date V isits Requested Visits Authorized [id number] Closed PCP Requested Referral 09/07/2022 09/07/2023 1 1 Reason Comments Follow Up Reason Onset Date Comments Refill Request 02/11/2023 Referral Request 02/11/2023 urology Reason Comments Hospital F/U Reason Comments COPD Reason Comments Lung cancer screening program Specialty Diagnoses / Procedures Referred By Contac t Referred To Contact US IMAGING Diagnoses Abdominal aortic aneurysm (AAA) without rupture, unspecified part (HCC) Procedures US ABD AORTA US RETROPERITONEAL REAL TIME W/IMAGE LIMITED Lia Markham MD [address] [place] [address] [place] [address] Referral ID Status Reason Start Date Expiration Date V isits Requested Visits Authorized [id number] Closed Auto-Generate d Referral 09/14/2023 10/13/2024 1 1 Reason Comments Patient Update Care Teams (unrecognized sec tion and content) Metal Expediter Relationship Specialty Start Date End Date Lia Markham MD [address] [place], [place] [id number] PCP - General Family Practice 09/27/12 Metal Expediter Relationship Specialty Start Date End Date Lia Markham MD [address] [place] [address] [id number] PCP - General Family Practice 09/27/12 Metal Expediter Relationship Specialty Start Date End Date Lia Markham MD [address] [place] [address] [id number] PCP - General Family Practice 09/27/12 Metal Expediter Relationship Specialty Start Date End Date Lia Markham MD [address] [place] [address] [id number] PCP - General Family Practice 09/27/12 Metal Expediter Relationship Specialty Start Date End Date Lia Markham MD [address] [facility] [place] [address] PCP - General Family Practice 09/27/12 Metal Expediter Relationship Specialty Start Date End Date Lia Markham MD [address] [facility] [place] [address] PCP - General Family Practice 09/27/12 Metal Expediter Relationship Specialty Start Date End Date Lia Markham MD [address] [facility] [place] [address] PCP - General Family Practice 09/27/12 Metal Expediter Relationship Specialty Start Date End Date Lia Markham MD [address] [facility] [place] [address] PCP - General Family Practice 09/27/12 Metal Expediter Relationship Specialty Start Date End Date Lia Markham MD [address] [facility] [place] [address] PCP - General Family Practice 09/27/12 Metal Expediter Relationship Specialty Start Date End Date Lia Markham MD [address] [facility] [place] [address] PCP - General Family Medicine 09/27/12 Metal Expediter Relationship Specialty Start Date End Date Lia Markham MD [address] [facility] [place] [address] PCP - General Family Medicine 09/27/12 Metal Expediter Relationship Specialty Start Date End Date Lia Markham MD [address] [facility] [place] [address] PCP - General Family Medicine 09/27/12 Metal Expediter Relationship Specialty Start Date End Date Lia Markham MD [address] [facility] [place] [address] PCP - General Family Medicine 09/27/12 Metal Expediter Relationship Specialty Start Date End Date Lia Markham MD [address] [facility] [place] [address] PCP - General Family Medicine 09/27/12 Metal Expediter Relationship Specialty Start Date End Date Lia Markham MD [address] [facility] [place] [address] PCP - General Family Medicine 09/27/12 Metal Expediter Relationship Specialty Start Date End Date Lia Markham MD [address] [facility] [place] [address] PCP - General Family Medicine 09/27/12 Metal Expediter Relationship Specialty Start Date End Date Lia Markham MD [address] [facility] [place] [address] PCP - General Family Medicine 09/27/12 Metal Expediter Relationship Specialty Start Date End Date Lia Markham MD [address] [facility] [place] [address] PCP - General Family Medicine 09/27/12 Metal Expediter Relationship Specialty Start Date End Date Lia Markham MD [address] [facility] [place] [address] PCP - General Family Medicine 09/27/12 Metal Expediter Relationship Specialty Start Date End Date Lia Markham MD [address] [facility] [place] [address] PCP - General Family Medicine 09/27/12 Metal Expediter Relationship Specialty Start Date End Date Lia Markham MD [address] [facility] [place] [address] PCP - General Family Medicine 09/27/12 Metal Expediter Relationship Specialty Start Date End Date Lia Markham MD [address] [facility] [place] [address] PCP - General Family Medicine 09/27/12 Metal Expediter Relationship Specialty Start Date End Date Lia Markham MD [address] [facility] [place] [address] PCP - General Family Medicine 09/27/12 Metal Expediter Relationship Specialty Start Date End Date Lia Markham MD [address] [facility] [place] [address] PCP - General Family Medicine 09/27/12 Metal Expediter Relationship Specialty Start Date End Date Lia Markham MD [address] [facility] [place] [address] PCP - General Family Medicine 09/27/12 Metal Expediter Relationship Specialty Start Date End Date Lia Markham MD [address] [facility] [place] [address] PCP - General Family Medicine 09/27/12 Metal Expediter Relationship Specialty Start Date End Date Lia Markham MD [address] [facility] [place] [address] PCP - General Family Medicine 09/27/12 Metal Expediter Relationship Specialty Start Date End Date Lia Markham MD [address] [facility] [place] [address] PCP - General Family Medicine 09/27/12 Metal Expediter Relationship Specialty Start Date End Date Lia Markham MD [address] [facility] [place] [address] PCP - General Family Medicine 09/27/12 Metal Expediter Relationship Specialty Start Date End Date Lia Markham MD [address] [facility] [place] [address] PCP - General Family Medicine 09/27/12 Metal Expediter Relationship Specialty Start Date End Date Lia Markham MD [address] [facility] [place] [address] PCP - General Family Medicine 09/27/12 Metal Expediter Relationship Specialty Start Date End Date Lia Markham MD [address] [place] [address] PCP - General Family Medicine 09/27/12 Metal Expediter Relationship Specialty Start Date End Date Lia Markham MD [address] [place] [address] PCP - General Family Medicine 09/27/12 Metal Expediter Relationship Specialty Start Date End Date Lia Markham MD [address] [place] [address] PCP - General Family Medicine 09/27/12 Metal Expediter Relationship Specialty Start Date End Date Lia Markham MD [address] [place] [address] PCP - General Family Medicine 09/27/12 Metal Expediter Relationship Specialty Start Date End Date Lia Markham MD [address] [place], [place] [address] PCP - General Family Medicine 09/27/12 Carly Banks MD [address] [place] [address] Pulmonary and Critical Care Medicine 09/20/23 Metal Expediter Relationship Specialty Start Date End Date Lia Markham MD [address] [place] [address] PCP - General Family Medicine 09/27/12 Carly Banks MD [address] [place] [address] Pulmonary and Critical Care Medicine 09/20/23 Metal Expediter Relationship Specialty Start Date End Date Lia Markham MD [address] [place] [address] PCP - General Family Medicine 09/27/12 Carly Banks MD [address] [place] [address] Pulmonary and Critical Care Medicine 09/20/23 Metal Expediter Relationship Specialty Start Date End Date Lia Markham MD [address] [place] [address] PCP - General Family Medicine 09/27/12 Carly Banks MD [address] [place] [address] Pulmonary and Critical Care Medicine 09/20/23 Metal Expediter Relationship Specialty Start Date End Date Lia Markham MD [address] [place] [address] PCP - General Family Medicine 09/27/12 Carly Banks MD [address] [place] [address] Pulmonary and Critical Care Medicine 09/20/23 Metal Expediter Relationship Specialty Start Date End Date Lia Markham MD [address] [place] [address] PCP - General Family Medicine 09/27/12 Carly Banks MD [address] [place] [address] Pulmonary and Critical Care Medicine 09/20/23 Metal Expediter Relationship Specialty Start Date End Date Lia Markham MD [address] [place] [address] PCP - General Family Medicine 09/27/12 Carly Banks MD [address] [place] [address] Pulmonary and Critical Care Medicine 09/20/23 Metal Expediter Relationship Specialty Start Date End Date Lia Markham MD [address] [place] [address] PCP - General Family [facility] 09/27/12 Carly Banks MD [address] [place] [address] Pulmonary and Critical Care Medicine 09/20/23 Metal Expediter Relationship Specialty Start Date End Date Lia Markham MD [address] [place] [address] PCP - General Family [facility] 09/27/12 Carly Banks MD [address] [place] [address] Pulmonary and Critical Care Medicine 09/20/23 (unrecognized [...] BE BASED ON THE PRIMARY CLINICAL RECORDS. [facility] [email or web address] [facility]. provides no warranty or guarantee of the accuracy or completeness of information in this document.
== END | disposition home or self-care (01) ==
LOC: RAD 13:18
PROVIDERS: PCP Family Medicine; Referring Provider Internal Medicine Gastroenterology; Visit Provider Internal Medicine Gastroenterology
DX: K31.84 Gastroparesis (principal)
CPT/HCPCS: 74018

== ENCOUNTER 2024-01-03 20:20 | Emergency (ER) | payer MEDICARE, OTHER, SELFPAY ==
[2024-01-03] VITALS (26 sets, daily range): BP systolic 127–197; BP diastolic 57–163; PULSE 96–110; RESP 15–30; TEMP 36.8; O2SAT 89–97; BMI 28.9
--- NOTE | 2024-01-03 21:03 | EKG12_ITS ---
Test Reason : WEAKNESS/FALL Blood Pressure : / mmHG Vent. Rate : 102 BPM Atrial Rate : 102 BPM P-R Int : 154 ms QRS Dur : 066 ms QT Int : 326 ms P-R-T Axes : 069 -15 064 degrees QTc Int : 424 ms Sinus tachycardia Low voltage QRS Borderline ECG Confirmed by Walter Zamorano ([id number]), desk editor UMANG TURNER ([id number]) on 01/04/2024 10:59:39 AM Referred By: ZAIDA Confirmed By:Walter Zamorano
--- NOTE | 2024-01-03 21:04 | EDS_ITS ---
HPI History of Present Illness Chief Complaint: Weakness Informant: patient and spouse/S.O. Narrative Narrative: Patient presents with vomiting and generalized weakness. He just started to feel ill this afternoon. Initially had some abdominal cramping but that is gone. He vomited. He then felt like he had to go to the bathroom. He was little weak getting up off the toilet. But he had not had a bowel movement it was just to urinate. He is was helping him up when he kind of slipped and fell. It was slow and he did not hurt himself. But he was just so weak. This was not unilateral weakness. He did have a stroke prior and has weakness on the left side but is doing well. He actually just went to therapy today. He did vomit 1 more time. He admits to feeling very dry. But he has no pain or fevers. Not coughing. He states he is here because of an abundance of caution. He has a history of UTIs and getting ill with that but he does not have any urinary symptoms. [facility] Medical History Common bile duct dilation COPD (chronic obstructive pulmonary disease) CPAP (continuous positive airway pressure) dependence Diabetes GERD (gastroesophageal reflux disease) History of diabetes mellitus History of multiple cerebrovascular accidents (CVAs) History of stroke Non-smoker Sleep apnea Slurred speech Stroke-like symptoms Stroke/cerebrovascular accident Home Medications insulin glargine 100 unit/mL (3 mL) subcutaneous pen (Lantus Solostar U-100 Insu octavio) 50 units subcut QHS DABETES 02/27/15 [History Last Taken 11/01/23] insulin lispro 100 unit/mL subcutaneous pen (Humalog KwikPen (U-100) Insulin) 22 unit subcut TID DIABETES 02/27/15 [History Last Taken 11/01/23] fluticasone fur. 100 mcg-umeclid 62.5 mcg-vilant 25 mcg inhalat.powder (Trelegy Ellipta) 1 inh inhalation DAILY SHORTNESS OF BREATH/WHEEZING 09/05/23 [History Last Taken 11/01/23] omeprazole 20 mg capsule,delayed release 20 mg PO DAILY ACID REFLUX 09/05/23 [History Last Taken 11/01/23] tamsulosin 0.4 mg capsule 0.4 mg PO BID PROSTATE 10/16/23 [History Last Taken 11/01/23] venlafaxine 150 mg capsule,extended release 24 hr 150 mg PO DAILY DEPRESSION 09/05/23 [History Last Taken 11/01/23] atorvastatin 80 mg tablet 80 mg PO QHS CHOLESTEROL #30 tabs 09/07/23 [Rx Last Taken 11/01/23] aspirin 81 mg chewable tablet 81 mg PO DAILY HEART HEALTH 11/02/23 [History Last Taken 11/01/23] canagliflozin 100 mg tablet (Invokana) 100 mg PO DAILY DIABETES 11/02/23 [History Last Taken 11/01/23] dulaglutide 4.5 mg/0.5 mL subcutaneous pen injector (Trulicity) 4.5 mg subcut SA DIABETES 11/02/23 [History Last Taken 10/29/23] ondansetron 4 mg disintegrating tablet 4 mg PO Q8H PRN PRN Nausea #10 tabs 01/04/24 [Rx Last Taken Unknown] Allergy/AdvReac Type Severity Reaction Status Date / Time Penicillins Allergy Intermediate Hives Verified 01/03/24 20:21 Family History Other Alzheimer disease Breast cancer Thyroid cancer Surgical History History of ear surgery Social History household members: spouse housing: house Smoking Status: Light Smoker (<10/day) Tobacco: How many years used: 50 how long ago did patient quit smoking: alcohol intake: never substance use type: does not use ROS ROS ED ROS Narrative A complete review of systems was performed and is negative except as documented in the history of present illness. Some specific details below. Constitutional: No recent fevers but he did have mild chills just once today and that was only after he vomited. No sweats. EYE: No visual complaints or pain. ENT: No difficulty swallowing. No swelling. No pain. CV: No chest pain or palpitations. Respiratory: No dyspnea. No hemoptysis. No difficulty taking breaths. GI: Please see history of present illness. : No frequency dysuria or hematuria. Musculoskeletal: No recent trauma. No pains. He did not hurt himself with his fall at home. Skin: No rash. Nondiaphoretic. Neuro: No weakness or numbness. Endocrine: No polyuria or polydipsia. EXAM Physical Exam Narrative Exam Narrative: CONSTITUTIONAL: Patient is nontoxic in appearance. The patient looks comfortable. HEENT: No notable trauma. Mucous membranes do look quite dry. EYES: No conjunctival injection. No proptosis. CARDIOVASCULAR: Borderline tachycardic rate at about 90 now. Regular rhythm. No notable murmur. No JVD. RESPIRATORY: No respiratory distress. Breathing is unlabored. No wheezes. No rhonchi. No rales. No pain with a deep breath. Saturations are normal 97% sat on room air showing no hypoxia. GASTROINTESTINAL: Not distended. Bowel sounds are normal. No tenderness. No guarding. No rebound. No palpable mass. No bruit. Overall very benign abdomen. GENITOURINARY: No tenderness over the bladder. No CVA tenderness. MUSCULOSKELETAL: Atraumatic. NEUROLOGICAL: Patient is alert and appropriate. No focal deficit noted. He is not at all confused. I can see a little muscle wasting on his left upper extremity but is really gotten no gross weakness. He has recovered very well from his stroke. SKIN: No noted rashes. No diaphoresis. PSYCHIATRIC: Patient is calm. Mood is appropriate. Const Vital Signs: 01/03/24 20:20 01/03/24 20:20 01/03/24 21:14 Temperature 98.2 F Temperature Source Oral Pulse Rate 109 H 106 H Respiratory Rate 17 28 H Respiratory Effort Normal Non-Labored Respiratory Pattern Normal Blood Pressure 177/80 H Blood Pressure Mean 112 Pulse Ox 97 90 Oxygen Delivery Method Room Air 01/03/24 21:15 01/03/24 21:20 01/03/24 21:30 Temperature Temperature Source Pulse Rate 104 H 102 H Respiratory Rate 28 H 25 H Respiratory Effort Respiratory Pattern Blood Pressure 147/76 H 197/163 H Blood Pressure Mean 95 176 Pulse Ox 89 91 Oxygen Delivery Method 01/03/24 21:40 01/03/24 21:47 01/03/24 21:50 Temperature Temperature Source Pulse Rate 102 H 99 100 Respiratory Rate 18 24 H 21 H Respiratory Effort Respiratory Pattern Blood Pressure 162/57 H Blood Pressure Mean 84 Pulse Ox 89 89 89 Oxygen Delivery Method 01/03/24 22:00 02/13/24 22:10 01/03/24 22:15 Temperature Temperature Source Pulse Rate 110 H 103 H 106 H Respiratory Rate 21 H 25 H 24 H Respiratory Effort Respiratory Pattern Blood Pressure 166/100 H 169/86 H Blood Pressure Mean 119 104 Pulse Ox 90 90 89 Oxygen Delivery Method 01/03/24 22:20 01/03/24 22:30 01/03/24 22:40 Temperature Temperature Source Pulse Rate 96 99 97 Respiratory Rate 27 H 29 H 29 H Respiratory Effort Respiratory Pattern Blood Pressure 127/77 H Blood Pressure Mean 91 Pulse Ox 94 95 95 Oxygen Delivery Method 01/03/24 22:45 01/03/24 22:50 01/03/24 23:00 Temperature Temperature Source Pulse Rate 98 101 H Respiratory Rate 29 H 30 H Respiratory Effort Respiratory Pattern Blood Pressure 159/82 H 180/85 H Blood Pressure Mean 102 108 Pulse Ox 95 94 Oxygen Delivery Method 01/03/24 23:10 01/03/24 23:15 01/03/24 23:20 Temperature Temperature Source Pulse Rate 97 97 100 Respiratory Rate 29 H 26 H 25 H Respiratory Effort Respiratory Pattern Blood Pressure 155/115 H Blood Pressure Mean 127 Pulse Ox 95 95 94 Oxygen Delivery Method 01/03/24 23:30 01/03/24 23:40 01/03/24 23:45 Temperature Temperature Source Pulse Rate 96 103 H 98 Respiratory Rate 20 H 25 H 15 Respiratory Effort Respiratory Pattern Blood Pressure 158/75 H 176/84 H Blood Pressure Mean 97 107 Pulse Ox 95 94 94 Oxygen Delivery Method 01/03/24 23:50 Temperature Temperature Source Pulse Rate 97 Respiratory Rate 25 H Respiratory Effort Respiratory Pattern Blood Pressure Blood Pressure Mean Pulse Ox 94 Oxygen Delivery Method MDM MDM MDM Narrative Medical decision making narrative: Patient CBC does show mild elevation of white count. Electrolytes showed over are all no marked abnormalities. But his glucose was a bit high at 260. Patient's liver function test are trending up again. AST and ALT along with total bilirubin are a bit higher. But alkaline phosphatase is lower. Lipase has a nonspecific minimal elevation at 78. His urine is clean. Viral studies are negative. My independent interpretation of his single view but to image chest x-ray shows no acute process but there are some chronic changes that are noted final reading by radiology was reviewed. We got the patient up and walk. I walked with him. He needed a little assistance getting up out of the bed but the bed is rather high and difficult. After that he walked a fair distance down the [place] and back. His saturations dropped to about 89% but he denied feeling dyspneic. His heart rate did go up to about 120s. I had a long talk with him and his . I explained that I have multiple concerns. The patient vomited. His oxygen level is a little borderline although this could be chronic. He has an elevated white count and rising liver function test. He has a stent in. But he is denying any pain. I explained that I am concerned about the patency of the stent. And I am overall concerned about safety at home. But patient is awake alert appropriate. He can make his own decisions. He did not want to come in. He does not want to stay in the hospital. I did watch him drink a couple glasses of water and he felt good. His is comfortable taking him home. I explained that they need to follow- up with Dr. Hannon as I am concerned about the patency of the stent. I offered to keep him here longer and do imaging to look for this. But he wants to go home. I encouraged him to have a low threshold to return. Lab Data Labs: Laboratory Results - last 24 hr 01/03/24 01/03/24 20:59 22:19 WBC 16.2 H RBC 5.32 Hgb 14.7 Hct 44.8 MCV 84.2 MCH 27.6 MCHC 32.8 RDW Std Deviation 47.3 H RDW Coeff of [place] 15.6 H Plt Count 268 MPV 11.5 Immature Gran % (Auto) 0.500 Neut % (Auto) 93.8 H Lymph % (Auto) 1.9 L [place] % (Auto) 3.4 Eos % (Auto) 0.2 Baso % (Auto) 0.2 Absolute Neuts (auto) 15.2 H Absolute Lymphs (auto) 0.30 L Nucleated RBC % 0 Differential Comment SEE COMMENT Platelet Estimate ADEQUATE RBC Morphology NORM C+C Anisocytosis RARE Sodium 136 Potassium 3.7 Chloride 103 Carbon Dioxide 23.0 Anion Gap 10 BUN 15 Creatinine 1.06 Estim Creat Clear Calc 81.59 Est GFR (MDRD) Af Amer 89 Est GFR (MDRD) Non-Af 74 BUN/Creatinine Ratio 14.2 Glucose 264 H Calcium 9.2 Total Bilirubin 1.40 H AST 391 H ALT 294 H Alkaline Phosphatase 328 H Total Protein 6.9 Albumin 2.9 L Globulin 4.0 Albumin/Globulin Ratio 0.7 L Lipase 78 H Urine Color Yellow Urine Clarity Clear Urine pH 6.5 Ur Specific [place] 1.010 Urine Protein Negative Urine Glucose (UA) 50 H Urine Ketones Negative Urine Occult Blood 10 H Urine Nitrite Negative Urine Bilirubin Negative Urine Urobilinogen 1 H Ur Leukocyte Esterase 25 H Urine RBC 0-5 SEEN Urine WBC 0-5 SEEN Ur Squamous Epith Cells 0-5 SEEN Urine Bacteria 0 SEEN Urine Mucus 0 SEEN Radiography Diagnostic Testing: Clinical Impression(s) from Imaging Studies Chest X-Ray 01/03/24 21:23 IMPRESSION: Chronic interstitial changes at the right base. No acute cardiopulmonary pathology. Electronically Signed: Wilman Queen MD at 21:57 EST Reading Location ID and State: [facility] / [place] Tel , Service support , Discharge Plan Triage Chief Complaint: Weakness ED Provider: Andrey Hugo Dx/Rx/DC Orders Clinical Impression: Elevated liver function tests, Generalized weakness, Nausea & vomiting Instructions: ED Vomiting (Adult) Prescriptions: New ondansetron [ondansetron] 4 mg tablet,disintegrating 4 mg PO Q8H PRN PRN (Reason: Nausea) Qty: 10 0RF No Action insulin lispro [Humalog KwikPen Insulin] 100 UNIT/ML insulin pen 22 unit subcut TID insulin glargine [Lantus Solostar U-100 Insulin] 100 UNITS/ML insulin pen 50 units subcut QHS Trelegy Ellipta 100-62.5-25 mcg blister with device 1 inh INHALATION DAILY omeprazole 20 mg capsule,delayed release(DR/EC) 20 mg PO DAILY tamsulosin 0.4 mg capsule 0.4 mg PO BID venlafaxine 150 mg capsule,extended release 24hr 150 mg PO DAILY atorvastatin 80 mg Tablet 80 mg PO QHS Qty: 30 2RF Invokana 100 mg tablet 100 mg PO DAILY Trulicity 4.5 mg/0.5 mL pen injector 4.5 mg SUBCUT SA aspirin 81 MG tablet,chewable 81 mg PO DAILY Primary Care Provider: Tommy Markham Referrals: Friend,DO Ronnie [Med Staff - Active Staff] - As soon as possible Tommy Markham MD [Primary Care Provider] - Disposition Disposition: Home, Self Care
--- OUTSIDE RECORDS SUMMARY | 2024-01-03 21:09 | XMS RPT_ITS | CCD ---
Author Name Unknown Address [address] [place] [address] Organization [facility] Care Team Providers Care Financial Services Representative Name Role Phone Shahrzad LAMBERT, Lia Babin Primary Care Provider Lia Markham MD Primary Care Provider [phone] Carly Banks MD Unavailable [phone] CARLY BANKS Referring Unavailable ANDRES DOTSON Attending Unavailable LIA MARKHAM Primary Care Unavailable SHAHRZAD, LIA Babin Primary Care Unavailable SHAHRZAD, LIA Babin Attending Unavailable SHAHRZAD, LIA Babin Primary Care Unavailable SHAHRZAD, LIA Babin Attending Unavailable SHAHRZAD, LIA Babin Primary Care Unavailable SHAHRZAD, LIA Babin Referring Unavailable SHAHRZAD, LIA Babin Primary Care Unavailable SHAHRZAD, LIA Babin Referring Unavailable SHAHRZAD, LIA Babin Primary Care Unavailable SHAHRZAD, LIA Babin Attending Unavailable SHAHRZAD, LIA Babin Primary Care Unavailable SHAHRZAD, LIA Babin Referring Unavailable SHAHRZAD, LIA Babin Attending Unavailable SHAHRZAD, LIA Babin Primary Care Unavailable SHAHRZAD, LIA Babin Primary Care Unavailable SHAHRZAD, LIA Babin Referring Unavailable CARLY BANKS Attending Unavailable SHAHRZAD, LIA Babin Primary Care Unavailable SHAHRZAD, LIA Babin Primary Care Unavailable YOLY ORNELAS Attending Unavailable SHAHRZAD, LIA Babin Primary Care Unavailable SHAHRZAD, LIA Babin Referring Unavailable SHAHRZAD, LIA Babin Primary Care Unavailable YOLY ORNELAS Referring Unavailable SHAHRZAD, LIA Babin Primary Care Unavailable YOLY ORNELAS Attending Unavailable ANDRES DOTSON Referring Unavailable SHAHRZAD, LIA Babin Primary Care Unavailable SHAHRZAD, LIA Babin Attending Unavailable SHAHRZAD, LIA Babin Primary Care Unavailable Allergies Allergy Classification Reported Allergen(s) Allergy Type Date of Onset Reaction(s) Facility (20 sources) metFORMIN; Translations: [METFORMIN] Drug Allergy 06-29-2011 Diarrhea [facility] Work Phone: (5 sources) Penicillins; Translations: [PENICILLINS] Propensity to adverse reactions 07-15-2005 [facility] Work Phone: (20 sources) Penicillins Propensity to adverse reactions 07-15-2005 [facility] Work Phone: Medications Current Medications Medication Drug [...] Cerebrovascular accident; Translations: [Cerebral infarction, unspecified] Onset: 03-21-2015 03-21-2015 Chronic Aortic; peripheral; and visceral artery aneurysms (20 sources) Abdominal aortic aneurysm without rupture; Translations: [Abdominal aortic aneurysm, without rupture] Onset: 05-13-2021 Chronic Chronic obstructive pulmonary disease and bronchiectasis (20 sources) Bronchiectasis; Translations: [Bronchiectasis, uncomplicated] Onset: 09-05-2020 09-05-2020 Chronic Diabetes mellitus without complication (20 sources) Type 2 diabetes mellitus without complication; Translations: [Type 2 diabetes mellitus without complications] Onset: 08-07-2010 Chronic Disorders of lipid metabolism (20 sources) Hyperlipidemia; Translations: [Hyperlipidemia, unspecified] Onset: 07-15-2005 Chronic Genitourinary symptoms and ill-defined conditions (1 source) Post-micturition incontinence ; Translations: [Post-void dribbling] Chronic Genitourinary symptoms and ill-defined conditions (4 sources) Other abnormal findings in urine; Translations: [Microscopic hematuria] Onset: 12-13-2023 12-15-2023 Episodic Immunizations and screening for infectious disease (2 [...] arteries] Onset: 02-15-2022 Chronic Other circulatory disease (1 source) Personal history of transient ischemic attack (TIA), and cerebral infarction without residual deficits; Translations: [History of CVA (cerebrovascular accident)] Onset: 12-13-2023 Episodic Other connective tissue disease (2 sources) Pain in toe; Translations: [Pain in unspecified toe(s)] Episodic Other disorders of stomach and duodenum (1 source) Gastroparesis; Translations: [Gastroparesis] Onset: 12-13-2023 Episodic Other ear and sense organ disorders (1 source) Acute otitis externa of right ear; Translations: [Unspecified acute noninfective otitis externa, right ear] Episodic Other inflammatory condition of skin (20 sources) Psoriasis; Translations: [Other psoriasis] Onset: 08-16-2006 08-16-2006 Chronic Other liver diseases (1 source) Abnormal levels of other serum enzymes; Translations: [Elevated liver enzymes] Onset: 12-16-2023 Episodic Other lower respiratory disease (2 sources) Fibrosis [...] mental status, unspecified] Onset: 09-05-2023 09-05-2023 Episodic Substance-related disorders (1 source) Cigarette [...] Other Problems Problem Classification Problem Date Documented Date Episodic/Chronic Allergic reactions (20 sources) Radiation-induced dermatosis; Translations: [Other skin changes due to chronic exposure to nonionizing radiation] Onset: 08-16-2006 08-16-2006 Episodic Diabetes mellitus without complication (18 sources) Hyperglycemia; Translations: [Hyperglycemia, unspecified] Onset: 09-05-2023 09-05-2023 Episodic Other and unspecified benign neoplasm (20 sources) History of polyp of colon; Translations: [Personal history of colonic polyps] Onset: 08-21-2020 08-21-2020 Episodic Other circulatory disease (15 sources) History of cerebrovascular accident; Translations: [Personal history of transient ischemic attack (TIA), and cerebral infarction without residual deficits] Onset: 09-14-2023 09-14-2023 Episodic Other connective tissue disease (20 sources) [...] Translations: [Xerosis cutis] Onset: 07-30-2012 07-30-2012 Episodic Residual codes; unclassified (1 source) Altered mental status, unspecified; Translations: [Altered mental status, unspecified altered mental status type] Onset: 09-05-2023 Episodic Screening and history of mental health and substance abuse codes (20 sources) Tobacco use and exposure - finding; Translations: [Personal history of nicotine dependence] Onset: 04-06-2006 08-07-2010 Episodic Results Test Name Value Interpretation Reference Range Facil ity Vital Signs Date Time Vital Sign Value Performing Clinician Faci lity 10-05-2023 11:42-0500 Body height 182.2 cm Lia Markham MD Work Phone: [facility] 10-05-2023 11:42-0500 Body weight 102.88 kg iLa Markham MD Work Phone: [facility] 10-05-2023 11:42-0500 Diastolic blood pressure 66 mm[Hg] Lia Markham MD Work Phone: [facility] 10-05-2023 11:42-0500 Heart rate 96 /min Lia Markham MD Work Phone: [facility] 10-05-2023 11:42-0500 Systolic blood pressure 102 mm[Hg] Lia Markham MD Work Phone: [facility] 09-20-2023 10:36-0400 Body weight 102.06 kg Andres Amity 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 Work Phone: [facility] 09-20-2023 10:36-0400 Diastolic blood pressure 82 mm[Hg] Andres Amity 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 Work Phone: [facility] 09-20-2023 10:36-0400 Heart rate 100 /min Andres Amity 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 Work Phone: [facility] 09-20-2023 10:36-0400 SaO2% (BldA) [Mass fraction] 96 % Andres Amity 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 Work Phone: [facility] 09-20-2023 10:36-0400 Systolic blood pressure 144 mm[Hg] Andres Amity 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 Work Phone: [facility] 09-15-2023 13:24-0400 Body height 182.2 cm Yoly Ornelas PA-C Work Phone: [facility] 09-15-2023 13:24-0400 Body weight 104.78 kg Yoly Ornelas PA-C Work Phone: [facility] 09-15-2023 13:24-0400 Diastolic blood pressure 74 mm[Hg] Yoly Ornelas PA-C Work Phone: [facility] 09-15-2023 13:24-0400 Heart rate 78 /min Yoly Ilya PA-C Work Phone: [facility] 09-15-2023 13:24-0400 Respiratory rate 16 /min Yoly Ilya PA-C Work Phone: [facility] 09-15-2023 13:24-0400 SaO2% (BldA) [Mass fraction] 96 % Yoly Ilya PA-C Work Phone: [facility] 09-15-2023 13:24-0400 Systolic blood pressure 130 mm[Hg] Yoly Ilya PA-C Work Phone: [facility] 09-14-2023 14:24-0400 Body height 182.2 cm Lia Markham MD Work Phone: [facility] 09-14-2023 14:24-0400 Body weight 105.14 kg Lia Markham MD Work Phone: [facility] 09-14-2023 14:24-0400 Diastolic blood pressure 56 mm[Hg] Lia Markham MD Work Phone: [facility] 09-14-2023 14:24-0400 Heart rate 84 /min Lia Markham MD Work Phone: [facility] 09-14-2023 14:24-0400 SaO2% (BldA) [Mass fraction] 95 % Lia Markham MD Work Phone: [facility] 09-14-2023 14:24-0400 Systolic blood pressure 108 mm[Hg] Lia Markham MD Work Phone: [facility] 10-22-2022 14:16-0500 Body height 182.2 cm Lia Markham MD Work Phone: [facility] 10-22-2022 14:16-0500 Body weight 109.14 kg Lia Markham MD Work Phone: [facility] 10-22-2022 14:16-0500 Diastolic blood pressure 66 mm[Hg] Lia Markham MD Work Phone: [facility] 10-22-2022 14:16-0500 Heart rate 87 /min Lia Markham MD Work Phone: [facility] 10-22-2022 14:16-0500 SaO2% (BldA) [Mass fraction] 95 % Lia Markham MD Work Phone: [facility] 10-22-2022 14:16-0500 Systolic blood pressure 134 mm[Hg] Lia Markham MD Work Phone: [facility] 10-22-2022 08:03-0500 Body weight 109.77 kg Caryl Banks MD Work Phone: [facility] 10-22-2022 08:03-0500 Diastolic blood pressure 78 mm[Hg] Carly Banks MD Work Phone: [facility] 10-22-2022 08:03-0500 Heart rate 97 /min Carly Banks MD Work Phone: [facility] 10-22-2022 08:03-0500 Respiratory rate 17 /min Carly Banks MD Work Phone: [facility] 10-22-2022 08:03-0500 SaO2% (BldA) [Mass fraction] 96 % Carly Banks MD Work Phone: [facility] 10-22-2022 08:03-0500 Systolic blood pressure 144 mm[Hg] Carly Banks MD Work Phone: [facility] 09-06-2022 10:33-0400 Body height 182.2 cm Respiratory Wstr Work Phone: [facility] 09-06-2022 10:33-0400 Body weight 110.18 kg Respiratory Wstr Work Phone: [facility] 09-06-2022 10:33-0400 Heart rate 73 /min Respiratory Wstr Work Phone: [facility] 09-06-2022 10:33-0400 Respiratory rate 14 /min Respiratory Wstr Work Phone: [facility] 09-06-2022 10:33-0400 SaO2% (BldA) [Mass fraction] 94 % Respiratory Wstr Work Phone: [facility] 09-03-2022 09:06-0400 Body height 182.9 cm Lia Markham MD Work Phone: [facility] 09-03-2022 09:06-0400 Body weight 110.5 kg Lia Markham MD Work Phone: [facility] 09-03-2022 09:06-0400 Diastolic blood pressure 60 mm[Hg] Lia Markham MD Work Phone: [facility] 09-03-2022 09:06-0400 Heart rate 84 /min Lia Markham MD Work Phone: [facility] 09-03-2022 09:06-0400 SaO2% (BldA) [Mass fraction] 96 % Lia Markham MD Work Phone: [facility] 09-03-2022 09:06-0400 Systolic blood pressure 114 mm[Hg] Lia Markham MD Work Phone: [facility] 08-20-2022 11:18-0400 Body weight 111.13 kg Lia Markham MD Work Phone: [facility] 08-20-2022 11:18-0400 Diastolic blood pressure 68 mm[Hg] Lia Markham MD Work Phone: [facility] 08-20-2022 11:18-0400 Heart rate 72 /min Lia Markham MD Work Phone: [facility] 08-20-2022 11:18-0400 Systolic blood pressure 132 mm[Hg] Lia Markham MD Work Phone: [facility] 06-24-2022 15:29-0400 Body weight 109.59 kg Rosemary Nikole 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 Work Phone: [facility] 06-24-2022 15:29-0400 Diastolic blood pressure 88 mm[Hg] Rosemary Nikole 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 Work Phone: [facility] 06-24-2022 15:29-0400 Heart rate 76 /min Rosemary Nikole 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 Work Phone: [facility] 06-24-2022 15:29-0400 SaO2% (BldA) [Mass fraction] 95 % Rosemary Nikole 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 Work Phone: [facility] 06-24-2022 15:29-0400 Systolic blood pressure 136 mm[Hg] Rosemary Nikole 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 Work Phone: [facility] 06-21-2022 14:20-0400 Body temperature 98.4 [degF] Inna Roque 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 Work Phone: [facility] 06-21-2022 14:20-0400 Body weight 110.68 kg Inna Roque APRN.GLASS INSTALLER Work Phone: [facility] 06-21-2022 14:20-0400 Diastolic blood pressure 78 mm[Hg] Inna Roque 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 Work Phone: [facility] 06-21-2022 14:20-0400 Heart rate 86 /min Inna Roque APRN.GLASS INSTALLER Work Phone: [facility] 06-21-2022 14:20-0400 Respiratory rate 20 /min Inna Roque APRN.GLASS INSTALLER Work Phone: [facility] 06-21-2022 14:20-0400 SaO2% (BldA) [Mass fraction] 95 % Inna Roque APRN.GLASS INSTALLER Work Phone: [facility] 06-21-2022 14:20-0400 Systolic blood pressure 130 mm[Hg] Inna Roque 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 Work Phone: [facility] 06-15-2022 08:19-0400 Body weight 108.86 kg Isabela Hernández 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 Work Phone: [facility] 06-15-2022 08:19-0400 Diastolic blood pressure 80 mm[Hg] Isabela Hernández 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 Work Phone: [facility] 06-15-2022 08:19-0400 Heart rate 76 /min Isabela Hernández 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 Work Phone: [facility] 06-15-2022 08:19-0400 Respiratory rate 18 /min Iasbela Hernández 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 Work Phone: [facility] 06-15-2022 08:19-0400 SaO2% (BldA) [Mass fraction] 95 % Isabela Hernández 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 Work Phone: [facility] 06-15-2022 08:19-0400 Systolic blood pressure 132 mm[Hg] Isabela Hernández 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 Work Phone: [facility] 02-15-2022 10:54-0400 Body weight 109.77 kg Lia Markham MD Work Phone: [facility] 02-15-2022 10:54-0400 Diastolic blood pressure 82 mm[Hg] Lia Markham MD Work Phone: [facility] 02-15-2022 10:54-0400 Heart rate 80 /min Lia Markham MD Work Phone: [facility] 02-15-2022 10:54-0400 Systolic blood pressure 120 mm[Hg] Lia Markham MD Work Phone: [facility] Encounters Encounter Date Encounter Type Care Provider Facility Start: 12-30-2023 ambulatory Lia Markham MD Work Phone: [facility] Procedures Date Procedure Procedure Detail Performing Clinician [...] DTaP,Tdap,Td Vaccine (3 - Td or Tdap) [facility] Start: 10-06-2026 Colonoscopy COLONOSCOPY [facility] Start: 10-06-2026 COLORECTAL CANCER SCREENING COLORECTAL CANCER SCREENING [facility] Start: 10-06-2026 Screening for malignant neoplasm of colon [facility] Start: 08-21-2025 PROSTATE CANCER SCREENING DISCUSSION PROSTATE CANCER SCREENING DISCUSSION [facility] Start: 12-13-2024 Annual PCP Team Chronic Disease Visit Annual PCP Team Chronic Disease Visit [facility] Start: 11-11-2024 Hepatitis B screening Urine Albumin:Creatinine Ratio [facility] Start: 11-07-2024 Annual PCP Team Chronic Disease Visit Annual PCP Team Chronic Disease Visit [facility] Start: 10-29-2024 Hepatitis B surface antibody level LDL Cholesterol [facility] Start: 10-05-2024 Annual PCP Team Chronic Disease Visit Annual PCP Team Chronic Disease Visit [facility] Start: 09-28-2024 Influenza vaccination Lung Cancer Screening [facility] Start: 09-28-2024 Screening for malignant neoplasm of lung Lung Cancer Screening [facility] Start: 09-14-2024 Annual PCP Team Chronic Disease Visit Annual PCP Team Chronic Disease Visit [facility] Start: 09-05-2024 Annual PCP Team Chronic Disease Visit Annual PCP Team Chronic Disease Visit [facility] Start: 01-28-2024 Hemoglobin A1c measurement HbA1C [facility] Start: 12-07-2023 Hemoglobin A1c/Hemoglobin.total in Blood HbA1C [facility] Start: 11-21-2023 Advance Directive Discussion Advance Directive Discussion [facility] Start: 11-10-2023 ANNUAL PCP TEAM CHRONIC DISEASE VISIT ANNUAL PCP TEAM CHRONIC DISEASE VISIT [facility] Start: 10-22-2023 ANNUAL PCP TEAM CHRONIC DISEASE VISIT ANNUAL PCP TEAM CHRONIC DISEASE VISIT [facility] Start: 10-21-2023 Glaucoma screening Dilated Retinal Exam [facility] Start: 10-21-2023 Hepatitis C antibody, confirmatory test DILATED RETINAL EXAM [facility] Start: 10-05-2023 End: 01-04-2024 CBC W Auto Differential panel - Blood CBC + DIFF Lab Routine Controlled type 2 diabetes mellitus without complication, without long-term current use of insulin ([facility]) Expected: 10/05/2023, Expires: 01/04/2024 [facility] Work Phone: Immunizations Immunization Date Immunization Notes Care Provider David granger 08-24-2023 influenza (HD-IIV4) vaccine, age 65+ yr, high dose, quadrivalent, PF (FLUZONE HIGH-DOSE) Lia Markham MD Work Phone: [facility] 08-24-2023 respiratory syncytia l virus (RSV) vaccine, adjuvanted (AREXVY) Lia Markham MD Work Phone: [facility] 08-20-2022 influenza, high-dose , quadrivalent vaccine (FLUZONE HIGH DOSE QUADRIVALENT) Lia Markham MD Work Phone: [facility] 08-20-2022 pneumococcal (PCV20) vaccine, 20 valent (PREVNAR 20) Lia Markham MD Work Phone: [facility] 08-20-2022 pneumococcal Conjuga te, unspecified formulation Lia Markham MD Work Phone: [facility] Work Phone: 08-20-2022 influenza virus vacc ine, unspecified formulation Carly Banks MD Work Phone: [facility] 09-09-2021 influenza, high dose seasonal, preservative-free Lia Markham MD Work Phone: [facility] 02-12-2021 COVID-19 vaccine, ag e 12+ yr (PFIZER-BIONTECH - PURPLE TOP) Lia Markham MD Work Phone: [facility] 01-22-2021 COVID-19 vaccine, ag e 12+ yr (PFIZER-BIONTECH - PURPLE TOP) Lia Markham MD Work Phone: [facility] 08-21-2020 influenza, high-dose , quadrivalent vaccine (FLUZONE HIGH DOSE QUADRIVALENT) Lia Markham MD Work Phone: [facility] 08-21-2020 pneumococcal polysaccharide vaccine, 23 valent Lia Markham MD Work Phone: [facility] 12-30-2019 zoster vaccine recombinant Lia Markham MD Work Phone: [facility] 10-18-2019 zoster vaccine recombinant Lia Markham MD Work Phone: [facility] 09-14-2019 influenza, high dose seasonal, preservative-free Lia Markham MD Work Phone: [facility] 09-14-2019 zoster vaccine recombinant Lia Markham MD Work Phone: [facility] 10-04-2018 influenza, injectabl e, quadrivalent, contains preservative Lia Markham MD Work Phone: [facility] 09-01-2017 influenza, injectabl e, quadrivalent, contains preservative Lia Markham MD Work Phone: [facility] 09-21-2016 influenza, injectabl e, quadrivalent, contains preservative Lia Markham MD Work Phone: [facility] Work Phone: 10-30-2015 influenza, injectabl e, quadrivalent, contains preservative Lia Markham MD Work Phone: [facility] 10-31-2014 influenza, seasonal, injectable Lia Markham MD Work Phone: [facility] 10-31-2014 zoster vaccine, live Lia Markham MD Work Phone: [facility] 09-27-2012 influenza virus vacc ine, unspecified formulation Lia Markham MD Work Phone: [facility] 09-21-2011 influenza virus vacc ine, unspecified formulation Lia Markham MD Work Phone: [facility] Work Phone: 08-07-2010 pneumococcal polysaccharide vaccine, 23 valent Lia Markham MD Work Phone: [facility] Work Phone: 08-07-2010 tetanus toxoid, redu nathan diphtheria toxoid, and acellular pertussis vaccine, adsorbed Lia Markham MD Work Phone: [facility] Work Phone: 10-11-2007 influenza virus vacc ine, unspecified formulation Lia Markham MD Work Phone: [facility] Work Phone: Payers Date Payer Category Payer Medicare [id number] 2019 Medicare MEDICARE MEDICAR E A AND B [id number] 2019-Present [phone] [address] [address] [place] [address] Medicare [id number] 2019 Medicare [id number] 2001 Unknown JUAN J LAST ACCE SS PPO [id number] 2001-2021 [address] [place] [address] PPO [id number] Social History Date Type Detail Facility Start: 05-01-2021 End: 09-20-2023 Tobacco smoking status NHIS Ex-smoker [facility] End: 09-01-2023 History of tobacco use Cigarette Smoker [facility] Start: 05-01-2021 End: 05-02-2023 Cigarettes smoked current (pack per day) - Reported 0.5 [facility] Start: 05-01-2021 End: 09-20-2023 Tobacco use and exposure Smokeless tobacco non-user [facility] Start: 02-15-2022 End: 09-14-2023 Alcohol intake Current drinker of alcohol (finding) [facility] Start: 04-27-2021 End: 10-21-2022 History SDOH Alcohol Frequency 2 [facility] Start: 04-27-2021 End: 10-21-2022 History SDOH Alcohol Std Drinks 1 [facility] Start: 04-05-2017 History SDOH Alcohol Comment occasionally beer or liquor [facility] Start: 04-27-2021 End: 10-21-2022 History SDOH Social Connections Phone 3 [facility] Start: 04-27-2021 History SDOH Physical Activity MPS 0 [facility] Start: 04-27-2021 Education 17 [facility] Start: 1955 Sex Assigned At Male [facility] Start: 02-05-2022 End: 10-22-2022 Exposure to SARS-CoV-2 (event) Not sure [facility] End: 09-01-2023 History of tobacco use Current smoker [facility] Start: 10-22-2022 Tobacco Comment Quit 2019 [facility] Start: 12-28-2022 End: 05-02-2023 Tobacco smoking status NHIS Occasional tobacco smoker [facility] Work Phone: Start: 12-28-2022 Tobacco Comment Restarted smoking over the holidays [facility] Start: 10-21-2022 End: 05-02-2023 Alcohol Use Disorder Identification Test - Consumption [AUDIT-C] [facility] How often to you hav e a drink containing alcohol? Monthly or less [facility] How many standard dr inks containing alcohol do you have on a typical day? 1 or 2 [facility] How often do you hav e 6 or more drinks on 1 occasion? Never [facility] Adult Depression Scr eening Assessment 0 [facility] Do you feel stress - tense, restless, nervous, or anxious, or unable to sleep at night because your mind is troubled all the time - these days [OSQ] To some extent [facility] In the past 12 month s, was there a time when you were not able to pay the mortgage or rent on time? No [facility] Start: 05-02-2023 Tobacco Comment Less than 1ppd 05/02/23 [facility] Start: 04-27-2021 Gender identity Identifies as male gender (finding) [facility] Start: 04-27-2021 Sexual orientation Heterosexual (finding) [facility] Do you belong to any clubs or organizations such as jew groups, unions, fraternal or athletic groups, or school groups? Yes [facility] Are you now , , , , never or living with a partner? [facility] (I/We) worried wheth er (my/our) food would run out before (I/we) got money to buy more. Never true [facility] Start: 09-15-2023 End: 12-13-2023 Alcohol intake Ex-drinker (finding) [facility] Start: 09-15-2023 Tobacco Comment Less than 1ppd 05/02/23Quit 09/01/2023 [facility] Start: 09-20-2023 Tobacco Comment Quit 09/01/2023 [facility] Do you feel stress - tense, restless, nervous, or anxious, or unable to sleep at night because your mind is troubled all the time - these days [OSQ] Only a little [facility] Medical Equipment Procedure Code Equipment Code Equipment Origin al Text Equipment Identifier Dates Start: 07-29-2010 End: 07-11-2023 Clinical Notes 10-12-2011 to 12-30-2023 Telephone Encounter - Alicia Reyes LPN - 12/30/2023 4:10 PM ESTTelephone Encounter - Marcy Cedillo LPN - 12/26/2023 3:11 PM ESTTelephone Encounter - Aleta Teague Ma - 10/22/2023 12:09 PM EST Note Date & Type Note Facility 12-30-2023 Miscellaneous Notes Duplicate encounter. documented in this encounter [facility] 12-26-2023 Miscellaneous Notes MARCUS 05/02/23 Patient phones requesting refills as follows: Requested Prescriptions Pending Prescriptions Disp Refills bbmyjilirrb-njjhpffev-cgfxucau (TRELEGY ELLIPTA) 100-62.5-25 mcg inhalation powder 180 Each 3 Sig: Inhale 1 Puff as instructed once daily. Please review and advise. Marcy Cedillo LPN documented in this encounter [facility] 12-13-2023 Note HNO ID: [id number] Author: LIA MARKHAM MD Service: ? Author Type: Physician Type: Progress Notes Filed: 12/13/2023 16:31 Note Text: Patient presents with: Follow Up HPI: Patient presents today for office visit for follow up. Has remained off of invokana since had a uti. Most recent sugars are not as bad. Was not feeling well and had emesis over the weekend. Had dark urine. Was triaged and refused to see anyone else when I was out of the office until today. Had done what sounds like a gastric emptying study over the weekend and got sick after. His gi work up includes a recent slow phase of gastric emptying study. Did have recent hypoglycemic spells. Since then has been doing well. Sees Dr Hannon again five months. He was concerned yesterday because urine was slightly dark. 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 Overall is doing a little better. No falls. Sees neurology in February. No chest pain or shortness of breath. See previous office note: HOSPITAL/ER FOLLOW UP: Reason for visit: weakness, fall Which facility: [facility] Date of visit: 11/02/23 Discharged: 11/05/23 Diagnosis: [...] itching or nausea or abd pain. Dr. Friend was also wondering about gastroparesis. Discussed that [...] up. MEDICATIONS: Current Outpatient Medications Medication Sig nystatin (MYCOSTATIN) cream Apply 1 application to affected area two times a day. dulaglutide (TRULICITY) 3 mg/0.5 mL pen injector [...] by mouth two times a day. insulin needles, DISPOSABLE, (EASY TOUCH) 31 gauge x 5/16 Use one pen needle four times daily lglnuspraoe-agizzcfhk-xbmlryon (TRELEGY ELLIPTA) 100-62.5-25 mcg inhalation powder Inhale [...] Take 81 mg by mouth once daily. clob (more content not included)... [facility] 11-07-2023 Note HNO ID: [id number] Author: Lia Markham MD Service: ? Author Type: Physician Type: Progress Notes Filed: 11/07/2023 12:43 PM Note Text: Patient presents with: Hospice Discharge HPI: Patient presents today for office visit for hospital follow up. HOSPITAL/ER FOLLOW UP: Reason for visit: weakness, fall Which facility: [facility] Date of visit: 11/02/23 Discharged: 11/05/23 Diagnosis: [...] itching or nausea or abd pain. Dr. Friend was also wondering about gastroparesis. Discussed that [...] Use one pen needle four times daily qhouxfaprrg-jduredmyb-rhqqizyd (TRELEGY ELLIPTA) 100-62.5-25 mcg inhalation powder Inhale [...] 2010 Dysmetabolic sy (more content not included)... [facility] 11-02-2023 Miscellaneous Notes Spoke to and scheduled patient Carly Manriquez Ma documented in this encounter [facility] 10-22-2023 Miscellaneous Notes Placed in mail written documented in this encounter [facility] 10-11-2023 Miscellaneous Notes rxi documented in this encounter [facility] 10-05-2023 Note HNO ID: [id number] Author: Lia Markham MD Service: ? Author Type: Physician Type: Progress Notes Filed: 10/05/2023 12:18 PM Note Text: Patient presents with: Follow Up HPI: Patient presents today for office visit for 3 week follow up. Was seen in [facility] on 09/06/23 for stroke like symptoms Discharged [...] his subacute cva. Was seen back in [facility] on 09/26/23 Discharged on 09/27/23 Went in [...] therapies ordered. He has been going to [facility] instead. Reiterated that it is not an acceptable substitute. Orders were placed. They are planning on going to [facility] [facility] this week. Suggested with recent cva they [...] Use one pen needle four times daily wwmyqrfuizk-ihldosqcv-djdcxsza (TRELEGY ELLIPTA) 100-62.5-25 mcg inhalation powder Inhale [...] SPEC WHEN PFRMD (more content not included)... [facility] 10-05-2023 Instructions Lia Markham MD - 10/05/2023 12:08 PM EST Increase humalog to 19 units with each meal. Send over sugars on Tuesday. documented in this encounter [facility] 10-05-2023 History of Present illness Narrative Patient presents with: Follow Up HPI: Patient presents today for office visit for 3 week follow up. Was seen in [facility] on 09/06/23 for stroke like symptoms Discharged [...] his subacute cva. Was seen back in [facility] on 09/26/23 Discharged on 09/27/23 Went in [...] therapies ordered. He has been going to [facility] instead. Reiterated that it is not an acceptable substitute. Orders were placed. They are planning on going to [facility] this week. Suggested with recent cva they [...] Use one pen needle four times daily eitscrarvri-dmvkvfpzk-ktrninjt (TRELEGY ELLIPTA) 100-62.5-25 mcg inhalation powder Inhale [...] Lia Markham MD documented in this encounter [facility] 09-28-2023 Note HNO ID: [id number] Author: Suellen Kaplan RT(R) Service: ? Author Type: Fruit Tester Type: Progress Notes Filed: 09/28/2023 4:18 PM [...] RT Avelina(R) September 28, 2023 4:18 PM [facility] 09-26-2023 Miscellaneous Notes Pt was taken to [facility] ER by spouse. Reg Broussard Message left for or patient to call PCP office and ask for charleen nurse, for provider's response below. Melody Schulz RN Agree, these sx belong in ER should not wait. Thanks, Rusty Calhoun PA-C Patient's calls concerned. Patient was seen in [facility] 09/06/2023 with stroke like symptoms. Patient since [...] Sagrario Barrera RN documented in this encounter [facility] 09-22-2023 Note HNO ID: [id number] Author: Penny Pastor RDMS Service: ? Author Type: Fruit Tester Type: Progress Notes Filed: 09/22/2023 2:14 PM [...] Pastor RDMS September 22, 2023 2:14 PM [facility] 09-22-2023 History of Present illness Narrative Radiology [...] 2023 2:14 PM documented in this encounter [facility] 09-20-2023 Note HNO ID: [id number] Author: Andres Dotson APRN.GLASS INSTALLER Service: ? Author Type: Nurse Practitioner Type: [...] pre-disease performance w/o restriction. Modified Medical Research [place] Dyspnea Scale (MMRC) I only get breathless [...] Inject 50 Units subcutaneously daily at bedtime. txgzerzopxu-htjdwvstu-gnaonisx (TRELEGY ELLIPTA) 100-62.5-25 mcg inhalation powder Inhale [...] mg by mout (more content not included)... [facility] 09-20-2023 Instructions Andres Dotson APRN.GLASS INSTALLER - 09/20/2023 10:[address] Lung [...] to endocrinology. Others Lung Cancer Screening hotline: [phone] Lung Cancer Screening [phone] Billing Questions: or [email or web address] Lung Cancer Screening Team: Angeles Lopez CNP; Gladys Reddy PA-C; Suellen Joseph CNP; Diamond Rosas CNP, Susanne Wolfe PA-C, Fide Andino PA-C, Andres Dotson, GLASS INSTALLER : [phone] documented in this encounter [facility] 09-20-2023 History of Present illness Narrative [...] pre-disease performance w/o restriction. Modified Medical Research Iro[place]ois Dyspnea Scale (MMRC) I only get breathless [...] Inject 50 Units subcutaneously daily at bedtime. mxeksznvadw-mdevoszvc-vhuzvptc (TRELEGY ELLIPTA) 100-62.5-25 mcg inhalation powder Inhale [...] COVID-19 original vaccine, age 12+ yr, monovalent ([employer] PURPLE TOP) 01/22/2021 02/12/2021 09/09/2021 COVID-19 vaccine, age 12+ yr, 2022- season ([employer]) 09/13/2023 COVID-19 vaccine, age 12+ yr, bivalent ([employer]) 08/30/2022 influenza (HD-IIV3) vaccine, age 65+ yr, [...] DATE OF EXAM: Sep 06 2022 1:24PM [facility] 0541 - CT CHEST WO IVCON / [...] the upper abdomen demonstrates no interval changes. Embedded Processor (topogram) images: No additional findings. Impression: IMPRESSION: Numerous tiny centrilobular nodules in the bilateral lungs, likely secondary to inflammatory/infectious process or small airway disease. Mild emphysema. No CT evidence of interstitial lung disease. Remote granulomatous disease. Team Otr Truck Driver: ABDULKADIR Transcribe Date/Time: Sep 07 2022 2:32P [...] medial basilar pneumonia. Lungs are otherwise clear. Team Otr Truck Driver: ABDULKADIR Transcribe Date/Time: Sep 03 2022 12:23P ... Pulmonary Function Testing: SPIROMETRY BASELINE ONLY ([id number]) - ordered on 09/15/23 [facility] [address] [place] [address] Test Date: 2023-09-15 Pat Name: OLGA WOODSON Department: Room: Gender: Male Fruit Tester: : 1955 Requested By: Order Number: [id number] Reading MD: Carly Banks MD Interpretive Statements The exhaled (FVC) spirometry maneuver meets ATS/ERS acceptability and repeatability standards. The inspired (FIVC) spirometry maneuver is [less than/greater than] the FVC maneuver. IMPRESSION: Spirometry indicates moderate obstruction. Electronically Signed On 09-15-2023 16:45:15 EDT by Carly Banks MD ID: [id number] Name: OLGA WOODSON Race: White Ht: 71.75 in Wt: 231.00 lbs Age: 68 Gender: Male : 1955 Dx: COPD_ Smoking Hx: Non-smoker Doctor: YOLY ORNELAS Test Date: 09/15/2023 Site: [facility] Tech: Madyson Robbins PRE-BRONCH POST-BRONCH Pre LLN Pred ULN %Pred Post %Pred %Chg SPIROMETRY FVC (L) 4.41 3.25 4.37 5.50 100 FEV1 (L) 2.26 2.41 3.29 4.12 68 FEV1/FVC 0.51 0.63 0.76 0.87 67 PEF L/s (L/sec) 5.37 6.41 8.85 11.28 60 FEF50 (L/sec) 1.09 2.27 4.40 6.52 24 FIF50 (L/sec) 2.67 FEF50/FIF50 0.41 90-100 FIVC (L) 3.28 HYA22-51 (L/sec) 0.70 1.14 2.60 4.64 27 Time (sec) 13.94 FET PEF (sec) 0.12 AMINTA (L) 0.06 Vol Extrap % (%) 1 PHYSICAL EXAM: BP 144/82 Pulse 100 Wt 102.1 kg (225 lb) SpO2 96% BMI 30.73 kg/m Deferred ASSESSMENT and RECOMMENDATIONS: 1. Screening for lung cancer: Six year risk for lung cancer: 4.43% Https://[employer]/Cymraes /result/male_4.4_yes_unknown [email or web address]://[email or web address]/[email or web address] I have determined that the patient [...] 2023 10:40 AM documented in this encounter [facility] 09-15-2023 Note HNO ID: [id number] Author: Yoly Ornelas PA-C Service: ? Author Type: Physician Tile Finisher Type: Progress Notes Filed: 09/15/2023 2:43 PM Note Text: Patient: Olga Woodson PCP: Lia Markham MD CC: follow up HPI: Olga Woodson 68 year old male recently former 48-boym-tlwu smoker with PMH significant for psoriasis, anxiety, HLD, DM, CVA, CALLI on CPAP, and COPD. Current therapy with Trelegy and as needed Albuterol. Today, patient states he was recently admitted to [facility] secondary to CVA. States he had [...] Inject 50 Units subcutaneously daily at bedtime. qjlmjtiufxk-wuuceotfo-xeuhkclf (TRELEGY ELLIPTA) 100-62.5-25 mcg inhalation powder Inhale [...] history, social h (more content not included)... [facility] 09-15-2023 Note HNO ID: [id number] Author: Madyson Robbins RPFT Service: ? Author Type: Respiratory Therapist Type: Progress Notes Filed: 09/15/2023 1:18 PM Note Text: PULM FUNCTION SMARTBLOCK: Provider: Yoly Ornelas PA-C Assisting Tech: Madyson Robbins RPFT Spirometry: 1 [facility] 09-15-2023 History of Present illness Narrative Images from the original note were not included. Patient: Olga Woodson PCP: Lia Markham MD CC: follow up HPI: Olga Woodson 68 year old male recently former 86-iwlp-hwes smoker with PMH significant for psoriasis, anxiety, HLD, DM, CVA, CALLI on CPAP, and COPD. Current therapy with Trelegy and as needed Albuterol. Today, patient states he was recently admitted to [facility] secondary to CVA. States he had [...] Inject 50 Units subcutaneously daily at bedtime. hdrykanyotk-udzvthzup-iyvgzymb (TRELEGY ELLIPTA) 100-62.5-25 mcg inhalation powder Inhale [...] smoker - ICD9: V15.82, ICD10: Z87.891 Former 03-szpp-tsju smoker with sequelae of COPD. Is scheduled with lung cancer screening for LDCT. Portions of this documentation were copied and pasted from previous office visit notes in order to provide a cohesive continuity of the history. The note has been reviewed and edited and updated as necessary. Yoly Ornelas PA-C documented in this encounter [facility] 09-14-2023 Note HNO ID: [id number] Author: Lia Markham MD Service: ? Author Type: Physician Type: Progress Notes Filed: 09/15/2023 10:32 AM Note Text: Patient presents with: Hospital F/U HPI: Patient presents today for office visit for hospital follow up. Seen in [facility] on 09/06/23 Discharged 09/07/23 Admitted for stroke [...] Inject 50 Units subcutaneously daily at bedtime. cgbdjigpzxk-pfzuaholj-bcsffber (TRELEGY ELLIPTA) 100-62.5-25 mcg inhalation powder Inhale [...] 07/13/2012 Right ro (more content not included)... [facility] 09-14-2023 Instructions Lia Markham MD - 09/14/2023 3:16 PM EDT My chart list of sugars next . documented in this encounter [facility] 09-14-2023 History of Present illness Narrative Patient presents with: Hospital F/U HPI: Patient presents today for office visit for hospital follow up. Seen in [facility] on 09/06/23 Discharged 09/07/23 Admitted for stroke [...] Inject 50 Units subcutaneously daily at bedtime. spfvqchxnod-qjnxtropf-wdeaogpg (TRELEGY ELLIPTA) 100-62.5-25 mcg inhalation powder Inhale [...] CONSULT TO SPEECH THERAPY - CONSULT TO METAL STAMPER 2. Controlled type 2 diabetes mellitus without complication, without long-term current use of insulin ([facility]) - ICD9: 250.00, ICD10: E11.9 - Uncontrolled [...] aortic aneurysm (AAA) without rupture, unspecified part ([facility]) - ICD9: 441.4, ICD10: I71.40 - US ABD AORTA - US DOPPLER AORTA 6. Bronchiectasis without complication ([facility]) - ICD9: 494.0, ICD10: J47.9 - per pulmonary 7. Stage 3 severe COPD by GOLD classification ([facility]) - ICD9: 496, ICD10: J44.9 - per pulmonary. 8. History of diabetes mellitus - ICD9: V12.29, ICD10: Z86.39 9. Cerebrovascular accident (CVA), unspecified mechanism ([facility]) - ICD9: 434.91, ICD10: I63.9 - CONSULT TO NEUROLOGY 10. Infarction of thalamus (HCC) - ICD9: 434.91, ICD10: I63.81 - CONSULT TO NEUROLOGY 11. CALLI (obstructive sleep apnea) - ICD9: 327.23, ICD10: G47.33 - encouraged tx 12. Lung nodules - ICD9: 793.19, ICD10: R91.8 - per pulmonary. Lia Markham MD documented in this encounter [facility] documented as of this encounter (statuses as of 10/05/2023) [facility]10-25-2023 History of Past illness Narrative* Problem [...] of uncertain behavi or of skin: R zoroastrianism face: R/O BCC 10/12/2011 09/21/2016 Actinic Keratosis [...] of this encounter (statuses as of 10/07/2023) [facility]10-25-20[facility] History of Past illness Narrative* Problem [...] of uncertain behavi or of skin: R zoroastrianism face: R/O BCC 10/12/2011 09/21/2016 Actinic Keratosis [...] of this encounter (statuses as of 10/12/2023) [facility] History of Past illness Narrative* Problem [...] of uncertain behavi or of skin: R zoroastrianism face: R/O BCC 10/12/2011 09/21/2016 Actinic Keratosis [...] of this encounter (statuses as of 10/22/2023) [facility] History of Past illness Narrative* Problem [...] of uncertain behavi or of skin: R zoroastrianism face: R/O BCC 10/12/2011 09/21/2016 Actinic Keratosis [...] of this encounter (statuses as of 11/03/2023) [facility] History of Past illness Narrative* Problem [...] of uncertain behavi or of skin: R zoroastrianism face: R/O BCC 10/12/2011 09/21/2016 Actinic Keratosis [...] of this encounter (statuses as of 11/11/2023) [facility] History of Past illness Narrative* Problem [...] of uncertain behavi or of skin: R zoroastrianism face: R/O BCC 10/12/2011 09/21/2016 Actinic Keratosis [...] as of this encounter (statuses as of 12/27/2023) [facility] History of Past illness Narrative* Problem [...] of uncertain behavi or of skin: R zoroastrianism face: R/O BCC 10/12/2011 09/21/2016 Actinic Keratosis [...] as of this encounter (statuses as of 12/30/2023) [facility] History of Past illness Narrative* Problem [...] of uncertain behavi or of skin: R zoroastrianism face: R/O BCC 10/12/2011 09/21/2016 Actinic Keratosis [...] as of this encounter (statuses as of 12/30/2023) [facility]10-16-2023 NoteHNO ID: [id number] Author: Lia Markham MD Service: ? Author [...] about patient. Patient was working out today. Director Government refused to work out with patient due [...] Inject 50 Units subcutaneously daily at bedtime. boksshmsdcw-ydbghcvpl-sacgaeyk (TRELEGY ELLIPTA) 100-62.5-25 mcg inhalation powder Inhale [...] penis erectile dysfunction PER (more content not included)...[facility]10-16-2023 Miscellaneous Notes* Telephone Encounter - Karen Varghese [...] response. Karen Varghese Ma documented [facility] Miscellaneous Notes* Telephone Encounter - Alicia [...] patient. Alicia Reyes LPN [facility] Miscellaneous Notes* Telephone Encounter - Lia Markham MD - 06/03/2023 7:58 AM EDT Does not look like he picked up the message. Can we call him with my response. I do not think he realizes it is the same identical med...just called different. [facility]2023 NoteHNO ID: [id number] Author: Yoly Ornelas PA-C Service: ? Author Type: Physician Tile Finisher Type: Progress Notes Filed: 05/02/2023 11:39 AM [...] 08/07/2010 Diagnosed 07/2010 Allergies: Metformin Diarrhea Penicillins mgcbougqnmp-itgcerjjw-yyqiyfcc (TRELEGY ELLIPTA) 100-62.5-25 mcg inhalation powder Inhale [...] 07/01/2015 resolution pleural ef (more content not included)...[facility] 04-04-2023 Miscellaneous Notes* Telephone Encounter - Reg Brousasrd LPN - 04/04/2023 9:01 AM EDT Faxed. Reg Broussard LPN * Telephone Encounter - Isabela Hernández APRN.JERI - 04/01/2023 4:51 PM EDT Form completed. Can returned as requested. * Telephone Encounter - Reg Broussard LPN - 03/30/2023 5:04 PM EDT Type of form: CMN for DME Form received via fax When form is completed, Fax form to [phone] Form has been forwarded to Nurse Practictioner: JERI Canchola LPN documented [facility] Miscellaneous Notes* Telephone Encounter - Marcy Cedillo LPN - 03/22/2023 10:35 AM EDT Patient phones requesting refills as follows: Requested Prescriptions Pending Prescriptions Disp Refills eozpjkxbmeo-hzekefalb-sjybjamg (TRELEGY ELLIPTA) 100-62.5-25 mcg inhalation powder 1 Each 3 Sig: Inhale 1 Puff as instructed once daily. Please review and advise. Marcy Cedillo LPN documented in [facility]-2023 Miscellaneous Notes* Telephone Encounter - Alicia [...] patient. Alicia Reyes LPN documented in this encounterMag[facility]03-[facility]-2023 Miscellaneous Notes* Telephone Encounter - Alicia [...] leaking wants to see Dr Church at [facility] needsreferral sent over there. documented in this encounterMag[facility]03[facility]2023 Miscellaneous Notes* Telephone Encounter - Alicia [...] patient. Alicia Reyes LPN documented in this encounterMag[facility]02-07-2023 NoteHNO ID: [id number] Author: Carly Banks MD Service: ? Author Type: Physician Type: Progress Notes Filed: 12/28/2022 11:06 AM Note Text: . [facility] [place] Note Patient name: Olga Woodson PCP: Lia [...] admits to starting smoking again over the Calvin holidays. He is not an every day [...] 3 mg subcutaneously one time a week. ncnyzvlzqxi-iwicwdyye-jqvsdwuv (TRELEGY ELLIPTA) 100-62.5-25 mcg inhalation powder Inhale [...] and deep fold areas. (more content not included)...[facility]12-15-2022 Miscellaneous Notes* Telephone Encounter - Zion Calhoun PA-C - 11/04/2022 6:35 PM EST The following approved medication requests have been transmitted electronically. Requested Prescriptions Signed Prescriptions Disp Refills dulaglutide (TRULICITY) 3 mg/0.5 mL pen injector 12 Each 3 Sig: Inject 3 mg subcutaneously one time a week. Zion Calhoun PA-C documented in this encounterMag[facility]12-[facility]22 History of Present illness Narrative* Lia [...] ago. MEDICATIONS: Current Outpatient Medications Medication Sig fnyecbdqdav-lglovktmh-hnztgcgb (TRELEGY ELLIPTA) 100-62.5-25 mcg inhalation powder Inhale [...] Stage 3 severe COPD by GOLD classification ([facility]) - ICD9: 496, ICD10: J44.9 (primary diagnosis) - continue meds. 2. Mild depressive disorder - ICD9: 311, ICD10: F32.A - VENLAFAXINE ER 150 MG CAPSULE,EXTENDED RELEASE 24 HR 3. Bronchiectasis without complication ([facility]) - ICD9: 494.0, ICD10: J47.9 - stable. Discussed importance of taking meds regularly. 4. Controlled type 2 diabetes mellitus without complication, without long-term current use of insulin ([facility]) - ICD9: 250.00, ICD10: E11.9 improved control - Continue current medications Lia Markham MD documented in this encounterMag[facility]12-[facility]-2022 History of Present illness Narrative* Carly Banks MD - 10/22/2022 8:00 AM EST Images from the original note were not included. . [facility] [place] Note Patient name: Olga Woodson PCP: Lia [...] breath. Started a working out with a education trainer who noticed significant labored breathing.He notes [...] DATE OF EXAM: Sep 06 2022 1:24PM [facility] 0541 - CT CHEST WO IVCON / [...] 07/2010 ALLERGIES Allergen Reactions Metformin Diarrhea Penicillins qywsovjrqid-yhzlwzniz-jkcolain (TRELEGY ELLIPTA) 100-62.5-25 mcg inhalation powder Inhale [...] be helpful 2. Former cigarette smoker -Former 43-wofx-lmhr smoker having quit in 2019 with sequelae of COPD/emphysema -Continue abstinence -Qualifies for low-dose chest CT for cancer screening but would not be due until August 2023 3. Obesity -Class II obesity, BMI 33 -Weight loss advised Carly Banks MD [facility] [place] documented in this encounterMag[facility]11-02-2022 Miscellaneous Notes* Telephone Encounter - Alicia Reyes LPN - 09/22/2022 11:57 AM EDT Faxed back to [place] as requested. * Telephone Encounter - Lia [...] Dr. Shahrzad Broussard LPN documented in this encounterMag[facility]11-01-2022 Miscellaneous Notes* Telephone Encounter - Melody Schulz RN - 09/21/2022 10:11 AM EDT Yoly from [employer] [facility] calling and states she has received printed CPAP script for patient. Yoly requesting recent OV notes and sleep study results also. Faxed as requested to [phone]. Melody Schulz RN documented in this [facility]10-31-2022 Miscellaneous Notes* Telephone Encounter - Zion French RN - 09/20/2022 10:05 AM EDT Left detailed vm on identified vm with provider's message below. * Telephone Encounter - Zion Calhoun PA-C - 09/19/2022 5:15 PM EDT I placed consult if he wants to establish with [facility]. Banks Thanks, Rusty Clahoun PA-C documented in this encounterMagr[facility]10-21-2022 Miscellaneous Notes* Telephone Encounter - Ana María Mcgee RN - 09/10/2022 11:42 AM EDT (Kary) calls and results reviewed. to speak with and call back in to schedule anappointment with pulmonology. Ana María cMgee RN * Telephone Encounter - Karen Varghese Ma - 09/10/2022 10:53 AM EDT Called and left message on patients voicemail to return call to the office and ask to speak with a FM triage nurse. Karen Varghese Ma * Telephone [...] to pulmonary to follow documented in this encounterMagruder [facility] Hospital10-18-2022 Miscellaneous Notes* Telephone Encounter - Aleta Teague Ma - 09/07/2022 3:44 PM EDT Keila Chiquita sends fax stating that rx for CPAP needs to state that it is a replacement machine. Please file. Once filed, will fax with office note. documented in this encounterMagruder [facility] Hospital10-17-2022 History of Present illness Narrative* RT Mahsa(Luis Carlos) - 09/06/2022 1:00 PM EDT Radiology Service [...] 06, 2022 3:26 PM documented in this encounterMagruder Memorial Hospital10-17-2022 History of Present illness Narrative* ERICA Silva - 09/06/2022 10:33 AM EDT PULM FUNCTION SMARTBLOCK: Provider: Lia Markham MD Assisting Tech: ERICA Silva Spirometry w/BD: 1 DLCO: 1 LV - Box: 1 documented in this encounterMagruder [facility] Hospital10-14-2022 Miscellaneous Notes* Telephone Encounter - Aleta [...] out scarring or fibrosis. documented in this encounterMagruder [facility] Hospital10-14-2022 History of Present illness Narrative* Lia [...] antegrade flow noted. Technologist: Brynn Harrington RVT, MS Ordering physician: LIA MARKHAM Aorta: 3.3 cm [...] RTO in six weeks. documented in this encounterMagruder [facility] Hospital10-11-2022 Miscellaneous Notes* Telephone Encounter - Melody [...] scheduled appt is 10/22. Please advise at [phone]. Reason for Disposition [1] MODERATE longstanding difficulty [...] does nothing, but they do go to [employer] during the week and patient does a [...] about 8 months ago when they started [employer]reports he is the same with his SOB. [...] n/a 12. TRAVEL: no Protocols used: Breathing [id number] documented in this encounterMagruder [facility] Hospital10-06-2022 History of Present illness Narrative* Penny [...] 26, 2022 11:52 AM documented in this encounterMagruder [facility] Hospital10-05-2022 Miscellaneous Notes* Telephone Encounter - Danielle [...] we can get his sleep study from [facility] in 2013. documented in this encounterMagruder [facility] Hospital09-30-2022 Miscellaneous Notes* Addendum Note - Lia Markham MD - 08/20/2022 11:58 AM EDTAddended by: LIA MARKHAM on: 08/20/2022 11:58 AM Modules accepted: Orders, SmartSet documented in this encounterMagruder Memorial Hospital09-30-2022 History of Present illness Narrative* Lia [...] six to eight weeks. documented in this encounterMagruder [facility] Hospital08-12-2022 Miscellaneous Notes* Telephone Encounter - Alicia [...] patient. Alicia Reyes LPN documented in this encounterMagruder [facility] Hospital08-12-2022 Miscellaneous Notes* Telephone Encounter - Melody [...] Advise. Karen Varghese Ma documented in this encounterMagruder [facility] Hospital08-04-2022 History of Present illness Narrative* Rosemary [...] DROPS Rosemary Agustin APRN.CNP documented in this encounterMagruder [facility] Hospital08-04-2022 Miscellaneous Notes* Telephone Encounter - Carly Manriquez Ma - 06/24/2022 12:56 PM EDT Spoke to patient and scheduled for today Carly Manriquez Ma documented in this encounterMagruder Memorial Hospital08-01-2022 Instructions* Patient Instructions* Inna Roque APRN.CNP [...] contagious, but need treatment. documented in this encounterMagruder Memorial Hospital08-01-2022 History of Present illness Narrative* Inna Roque APRN.JERI - 06/21/2022 2:33 PM EDT This note was created using [employer]. Subjective Olga Woodson is a 66 year old male. 66 male with PMH of CVA, AAA, Hyperlipidemia, DM presents with complaints of right ear fullness. Acute onset today fullness & water in right ear Denies pain, fever/chills, congestion, or cough No OTC medications or remedies used [employer] States I was at the doctors getting my new hearing aids this morning and they told me I should getmy ear looked at . The history is provided by the patient. No delivery representative was used. Ear Pain This is a [...] - Discussed expected course of illness Allie Smart Supervising provider was present and guided the care of the patient for the entire session on this date. All documentation was reviewed and agreed upon. Inna Roque APRN.CNP documented in this encounterMagruder [facility] Hospital07-27-2022 Miscellaneous Notes* Telephone Encounter - Karen Varghese Ma - 06/16/2022 10:59 AM EDT Called Client Services, spoke with Eduard. On hold for 13 minutes. Unable to add A1c. Pt sent Weaved message notifying him of result below from Provider. Made pt aware that incorrect lab was ordered and asked him to come in and complete an A1c. Apologized for inconvenience. Karen Varghese Ma * Telephone Encounter - Lia Markham MD - 06/16/2022 8:04 AM EDT Sugar was 215. Rest of labs ok. Can we add a1c to see where it is. documented in this encounterMagruder Memorial Hospital07-26-2022 Instructions* Patient Instructions* Isabela Hernández APRN.CNP - 06/15/2022 9:00 AM EDT 1. Start the naproxen twice daily with food X 1 week. Then you can use twice daily as needed. 2. Get the labwork. 3. Get the xray done. 4. Let us know if no better or any worsening. documented in this encounterMagruder Memorial Hospital07-26-2022 History of Present illness Narrative* Isabela Hernández [...] as needed for worsening/no improvement. Isabela Hernández APRN.GLASS INSTALLER documented in this encounterMagruder Memorial Hospital06-15-2022 Miscellaneous Notes* Telephone Encounter - Alicia Reyes LPN - 05/05/2022 10:55 AM EDT Faxed back as requested. * Telephone Encounter - Lia Markham MD - 05/05/2022 10:13 AM EDT done * Telephone Encounter - Karen Varghese Ma - 05/05/2022 8:59 AM EDT Office received fax from [employer] for certificate of medical necessity for pt DME supplies. Routedto PCP to review and complete. Once complete fax back to [phone]. Karen Varghese Ma documented in this encounterMagruder Memorial Hospital03-28-2022 Instructions* Patient Instructions* Lia Markham MD - 02/15/2022 11:14 AM EDT Increase humalog to 17 units with each meal and call sugars in two weeks. Watch diet and increase exercise to help as well. documented in this encounterMagruder Memorial Hospital03-28-2022 History of Present illness Narrative* Lia [...] six months and prn. 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 Neoplasm of uncertain behavi or of skin: R zoroastrianism face: R/O BCC 10/12/2011 09/21/2016 Actinic Keratosis [...] of this encounter (statuses as of 02/18/2022) [facility] Narrative* Problem Noted Date Resolved Date 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 Neoplasm of uncertain behavi or of skin: R zoroastrianism face: R/O BCC 10/12/2011 09/21/2016 Actinic Keratosis [...] of this encounter (statuses as of 03/24/2022) [facility] of [facility] Narrative* Problem Noted Date Resolved Date 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 Neoplasm of uncertain behavi or of skin: R zoroastrianism face: R/O BCC 10/12/2011 09/21/2016 Actinic Keratosis [...] of this encounter (statuses as of 05/05/2022) [facility] Narrative* Problem Noted Date Resolved Date 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 Neoplasm of uncertain behavi or of skin: R zoroastrianism face: R/O BCC 10/12/2011 09/21/2016 Actinic Keratosis [...] of this encounter (statuses as of 06/15/2022) [facility] Narrative* Problem Noted Date Resolved Date 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 Neoplasm of uncertain behavi or of skin: R zoroastrianism face: R/O BCC 10/12/2011 09/21/2016 Actinic Keratosis [...] of this encounter (statuses as of 06/16/2022) [facility] Narrative* Problem Noted Date Resolved Date 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 Neoplasm of uncertain behavi or of skin: R zoroastrianism face: R/O BCC 10/12/2011 09/21/2016 Actinic Keratosis [...] of this encounter (statuses as of 06/21/2022) [facility] Narrative* Problem Noted Date Resolved Date 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 Neoplasm of uncertain behavi or of skin: R zoroastrianism face: R/O BCC 10/12/2011 09/21/2016 Actinic Keratosis [...] of this encounter (statuses as of 06/24/2022) [facility] Narrative* Problem Noted Date Resolved Date 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 Neoplasm of uncertain behavi or of skin: R zoroastrianism face: R/O BCC 10/12/2011 09/21/2016 Actinic Keratosis [...] of this encounter (statuses as of 06/24/2022) [facility] Narrative* Problem Noted Date Resolved Date 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 Neoplasm of uncertain behavi or of skin: R zoroastrianism face: R/O BCC 10/12/2011 09/21/2016 Actinic Keratosis [...] of this encounter (statuses as of 06/25/2022) [facility] Narrative* Problem Noted Date Resolved Date 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 Neoplasm of uncertain behavi or of skin: R zoroastrianism face: R/O BCC 10/12/2011 09/21/2016 Actinic Keratosis [...] of this encounter (statuses as of 07/02/2022) [facility] of [facility] Narrative* Problem Noted Date Resolved Date 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 Neoplasm of uncertain behavi or of skin: R zoroastrianism face: R/O BCC 10/12/2011 09/21/2016 Actinic Keratosis [...] of this encounter (statuses as of 07/05/2022) [facility] Narrative* Problem Noted Date Resolved Date 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 Neoplasm of uncertain behavi or of skin: R zoroastrianism face: R/O BCC 10/12/2011 09/21/2016 Actinic Keratosis [...] of this encounter (statuses as of 07/20/2022) [facility] Narrative* Problem Noted Date Resolved Date 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 Neoplasm of uncertain behavi or of skin: R zoroastrianism face: R/O BCC 10/12/2011 09/21/2016 Actinic Keratosis [...] of this encounter (statuses as of 08/18/2022) [facility] Narrative* Problem Noted Date Resolved Date 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 Neoplasm of uncertain behavi or of skin: R zoroastrianism face: R/O BCC 10/12/2011 09/21/2016 Actinic Keratosis [...] of this encounter (statuses as of 08/20/2022) [facility] Narrative* Problem Noted Date Resolved Date 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 Neoplasm of uncertain behavi or of skin: R zoroastrianism face: R/O BCC 10/12/2011 09/21/2016 Actinic Keratosis [...] of this encounter (statuses as of 08/25/2022) [facility] Narrative* Problem Noted Date Resolved Date 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 Neoplasm of uncertain behavi or of skin: R zoroastrianism face: R/O BCC 10/12/2011 09/21/2016 Actinic Keratosis [...] of this encounter (statuses as of 08/27/2022) [facility] Narrative* Problem Noted Date Resolved Date 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 Neoplasm of uncertain behavi or of skin: R zoroastrianism face: R/O BCC 10/12/2011 09/21/2016 Actinic Keratosis [...] of this encounter (statuses as of 08/31/2022) [facility] Narrative* Problem Noted Date Resolved Date 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 Neoplasm of uncertain behavi or of skin: R zoroastrianism face: R/O BCC 10/12/2011 09/21/2016 Actinic Keratosis [...] of this encounter (statuses as of 08/31/2022) [facility] Narrative* Problem Noted Date Resolved Date 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 Neoplasm of uncertain behavi or of skin: R zoroastrianism face: R/O BCC 10/12/2011 09/21/2016 Actinic Keratosis [...] of this encounter (statuses as of 09/03/2022) [facility] Narrative* Problem Noted Date Resolved Date 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 Neoplasm of uncertain behavi or of skin: R zoroastrianism face: R/O BCC 10/12/2011 09/21/2016 Actinic Keratosis [...] of this encounter (statuses as of 09/06/2022) [facility]arrative* Problem Noted Date Resolved Date 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 Neoplasm of uncertain behavi or of skin: R zoroastrianism face: R/O BCC 10/12/2011 09/21/2016 Actinic Keratosis [...] of this encounter (statuses as of 09/07/2022) [facility]arrative* Problem Noted Date Resolved Date 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 Neoplasm of uncertain behavi or of skin: R zoroastrianism face: R/O BCC 10/12/2011 09/21/2016 Actinic Keratosis [...] of this encounter (statuses as of 09/07/2022) [facility]arrative* Problem Noted Date Resolved Date 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 Neoplasm of uncertain behavi or of skin: R zoroastrianism face: R/O BCC 10/12/2011 09/21/2016 Actinic Keratosis [...] of this encounter (statuses as of 09/09/2022) [facility]arrative* Problem Noted Date Resolved Date 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 Neoplasm of uncertain behavi or of skin: R zoroastrianism face: R/O BCC 10/12/2011 09/21/2016 Actinic Keratosis [...] of this encounter (statuses as of 09/10/2022) [facility]arrative* Problem Noted Date Resolved Date 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 Neoplasm of uncertain behavi or of skin: R zoroastrianism face: R/O BCC 10/12/2011 09/21/2016 Actinic Keratosis [...] of this encounter (statuses as of 09/14/2022) [facility]ative* Problem Noted Date Resolved Date 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 Neoplasm of uncertain behavi or of skin: R zoroastrianism face: R/O BCC 10/12/2011 09/21/2016 Actinic Keratosis [...] of this encounter (statuses as of 09/20/2022) [facility]ative* Problem Noted Date Resolved Date 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 Neoplasm of uncertain behavi or of skin: R zoroastrianism face: R/O BCC 10/12/2011 09/21/2016 Actinic Keratosis [...] of this encounter (statuses as of 09/21/2022) [facility]ative* Problem Noted Date Resolved Date 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 Neoplasm of uncertain behavi or of skin: R zoroastrianism face: R/O BCC 10/12/2011 09/21/2016 Actinic Keratosis [...] of this encounter (statuses as of 09/22/2022) [facility]ative* Problem Noted Date Resolved Date 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 Neoplasm of uncertain behavi or of skin: R zoroastrianism face: R/O BCC 10/12/2011 09/21/2016 Actinic Keratosis [...] of this encounter (statuses as of 10/22/2022) [facility]arrative* Problem Noted Date Resolved Date 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 Neoplasm of uncertain behavi or of skin: R zoroastrianism face: R/O BCC 10/12/2011 09/21/2016 Actinic Keratosis [...] of this encounter (statuses as of 10/22/2022) [facility]ative* Problem Noted Date Resolved Date 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 Neoplasm of uncertain behavi or of skin: R zoroastrianism face: R/O BCC 10/12/2011 09/21/2016 Actinic Keratosis [...] of this encounter (statuses as of 11/04/2022) [facility]* Problem Noted Date Resolved Date 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 Neoplasm of uncertain behavi or of skin: R zoroastrianism face: R/O BCC 10/12/2011 09/21/2016 Actinic Keratosis [...] of this encounter (statuses as of 02/07/2023) [facility]* Problem Noted Date Resolved Date 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 Neoplasm of uncertain behavi or of skin: R zoroastrianism face: R/O BCC 10/12/2011 09/21/2016 Actinic Keratosis [...] of this encounter (statuses as of 02/11/2023) [facility]* Problem Noted Date Resolved Date 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 Neoplasm of uncertain behavi or of skin: R zoroastrianism face: R/O BCC 10/12/2011 09/21/2016 Actinic Keratosis [...] of this encounter (statuses as of 03/21/2023) [facility]* Problem Noted Date Resolved Date 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 Neoplasm of uncertain behavi or of skin: R zoroastrianism face: R/O BCC 10/12/2011 09/21/2016 Actinic Keratosis [...] of this encounter (statuses as of 03/22/2023) [facility]ative* Problem Noted Date Resolved Date 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 Neoplasm of uncertain behavi or of skin: R zoroastrianism face: R/O BCC 10/12/2011 09/21/2016 Actinic Keratosis [...] of this encounter (statuses as of 04/04/2023) [facility]* Problem Noted Date Resolved Date 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 Neoplasm of uncertain behavi or of skin: R zoroastrianism face: R/O BCC 10/12/2011 09/21/2016 Actinic Keratosis [...] of this encounter (statuses as of 04/04/2023) [facility]ative* Problem Noted Date Diagnosed Date Resolved Date 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 09/21/2016 Neoplasm of uncertain behavi or of skin: R zoroastrianism face: R/O BCC 10/12/2011 09/21/2016 Actinic Keratosis [...] of this encounter (statuses as of 06/03/2023) [facility]* Problem Noted Date Diagnosed Date Resolved Date 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 09/21/2016 Neoplasm of uncertain behavi or of skin: R zoroastrianism face: R/O BCC 10/12/2011 09/21/2016 Actinic Keratosis [...] of this encounter (statuses as of 07/11/2023) [facility]* Problem Noted Date Diagnosed Date Resolved Date 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 09/21/2016 Neoplasm of uncertain behavi or of skin: R zoroastrianism face: R/O BCC 10/12/2011 09/21/2016 Actinic Keratosis [...] of this encounter (statuses as of 08/10/2023) [facility]* Problem Noted Date Diagnosed Date Resolved Date 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 09/21/2016 Neoplasm of uncertain behavi or of skin: R zoroastrianism face: R/O BCC 10/12/2011 09/21/2016 Actinic Keratosis [...] of this encounter (statuses as of 08/16/2023) [facility]* Problem Noted Date Diagnosed Date Resolved Date 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 09/21/2016 Neoplasm of uncertain behavi or of skin: R zoroastrianism face: R/O BCC 10/12/2011 09/21/2016 Actinic Keratosis [...] of this encounter (statuses as of 09/05/2023) [facility]* Problem Noted Date Diagnosed Date Resolved Date 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 09/21/2016 Neoplasm of uncertain behavi or of skin: R zoroastrianism face: R/O BCC 10/12/2011 09/21/2016 Actinic Keratosis [...] of this encounter (statuses as of 09/08/2023) [facility]* Problem Noted Date Diagnosed Date Resolved Date 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 09/21/2016 Neoplasm of uncertain behavi or of skin: R zoroastrianism face: R/O BCC 10/12/2011 09/21/2016 Actinic Keratosis [...] of this encounter (statuses as of 09/09/2023) [facility]ative* Problem Noted Date Diagnosed Date Resolved Date 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 09/21/2016 Neoplasm of uncertain behavi or of skin: R zoroastrianism face: R/O BCC 10/12/2011 09/21/2016 Actinic Keratosis [...] of this encounter (statuses as of 09/15/2023) [facility]* Problem Noted Date Diagnosed Date Resolved Date 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 09/21/2016 Neoplasm of uncertain behavi or of skin: R zoroastrianism face: R/O BCC 10/12/2011 09/21/2016 Actinic Keratosis [...] of this encounter (statuses as of 09/15/2023) [facility]* Problem Noted Date Diagnosed Date Resolved Date 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 09/21/2016 Neoplasm of uncertain behavi or of skin: R zoroastrianism face: R/O BCC 10/12/2011 09/21/2016 Actinic Keratosis [...] of this encounter (statuses as of 09/20/2023) [facility]* Problem Noted Date Diagnosed Date Resolved Date 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 09/21/2016 Neoplasm of uncertain behavi or of skin: R zoroastrianism face: R/O BCC 10/12/2011 09/21/2016 Actinic Keratosis [...] of this encounter (statuses as of 09/27/2023) [facility]* Problem Noted Date Diagnosed Date Resolved Date 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 09/21/2016 Neoplasm of uncertain behavi or of skin: R zoroastrianism face: R/O BCC 10/12/2011 09/21/2016 Actinic Keratosis [...] of this encounter (statuses as of 09/27/2023) [facility]* Problem Noted Date Diagnosed Date Resolved Date 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 09/21/2016 Neoplasm of uncertain behavi or of skin: R zoroastrianism face: R/O BCC 10/12/2011 09/21/2016 Actinic Keratosis [...] of this encounter (statuses as of 09/29/2023) [facility] note* Diagnosis Controlled type 2 diabetes mellitus without complication, without long-term current use of insulin (HCC)- Primary Bilateral carotid artery stenosis Occlusion and stenosis of carotid artery without mention of cerebral infarction Abdominal aortic aneurysm (AAA) without rupture (HCC) Hyperlipidemia, unspecified hyperlipidemia type CALLI (obstructive sleep apnea) Obstructive sleep apnea (adult) (pediatric) [facility] Diagnosis Pain of toe, unspecified laterality- Primary [facility] Diagnosis Controlled type 2 diabetes mellitus without complication, without long-term current use of insulin (HCC)- Primary [facility] Diagnosis Acute otitis media, right- Primary Unspecified otitis media [facility] Diagnosis Acute otitis externa of right ear, unspecified type- Primary [facility] Diagnosis Pain of toe, unspecified laterality- Primary Controlled type 2 diabetes mellitus without complication, without long-term current use of insulin (HCC) [facility] Diagnosis Controlled type 2 diabetes mellitus [...] unspecified single disease [facility] Diagnosis CALLI (obstructive sleep apnea)- Primary Obstructive sleep apnea (adult) (pediatric) [facility] Diagnosis Abdominal aortic aneurysm (AAA) without rupture [facility] Diagnosis SOB (shortness of breath)- Primary Shortness of breath CALLI (obstructive sleep apnea) Obstructive sleep apnea (adult) (pediatric) Cough, unspecified type Abdominal aortic aneurysm (AAA) without rupture, unspecified part [facility] Diagnosis SOB (shortness of breath) Shortness of breath [facility]* Diagnosis SOB (shortness of breath) Shortness of breath 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 Diagnosis At risk for shortness of breath- Primary SOB (shortness of breath) Shortness of breath [facility]* Diagnosis Bronchiectasis without complication (HCC)- Primary Bronchiectasis without acute exacerbation CALLI (obstructive sleep apnea) Obstructive sleep apnea (adult) (pediatric) [facility]* Diagnosis Stage 3 severe COPD by GOLD classification ([facility])- Primary Former cigarette smoker Personal history of tobacco use, presenting hazards to health Class 1 obesity due to excess calories with body mass index (BMI) of 33.0 to 33.9 in adult, unspecified whether serious comorbidity present [facility]* Diagnosis Stage 3 severe COPD by GOLD classification ([facility])- Primary Mild depressive disorder Bronchiectasis without complication (HCC) Bronchiectasis without acute exacerbation Controlled type 2 diabetes mellitus without complication, without long-term current use of insulin (HCC) documented in this encounter [facility] note* Diagnosis Controlled type 2 diabetes mellitus without complication, without long-term current use of insulin (HCC) [facility]* Diagnosis Post-void dribbling- Primary [facility]* Diagnosis Cigarette smoker- Primary Tobacco use disorder documented in this encounter [facility] note* Diagnosis History of stroke with residual [...] of lung field documented in this encounter [facility] note* Diagnosis Moderate COPD (chronic obstructive pulmonary disease) (HCC)- Primary Chronic airway obstruction, not elsewhere classified Former cigarette smoker Personal history of tobacco use, presenting hazards to health documented in this encounter [facility] note* Diagnosis Encounter for screening for lung cancer- Primary Former cigarette smoker Personal history of tobacco use, presenting hazards to health documented in this encounter [facility] note* Diagnosis Abdominal aortic aneurysm (AAA) without rupture, unspecified part (HCC) documented in this encounter [facility] note* Diagnosis Personal history of tobacco use, presenting hazards to health- Primary documented in this encounter [facility] note* Diagnosis Cerebrovascular accident (CVA), unspecified mechanism (HCC)- Primary Controlled type 2 diabetes mellitus without complication, without long-term current use of insulin (HCC) History of diabetes mellitus Personal history of other endocrine, metabolic, and immunity disorders Infarction of thalamus (HCC) Hyperlipidemia, unspecified hyperlipidemia type [facility]* Diagnosis Controlled type 2 diabetes mellitus without complication, without long-term current use of insulin (HCC) documented [facility]* Diagnosis Controlled type 2 diabetes mellitus without complication, without long-term current use of insulin (HCC)- Primary [facility]* Diagnosis Cerebrovascular accident (CVA), unspecified mechanism (HCC)- Primary [facility]* Diagnosis Moderate COPD (chronic obstructive pulmonary disease) (HCC)- Primary Chronic airway obstruction, not elsewhere classified [facility] Diagnosis Controlled type 2 diabetes mellitus without complication, without long-term current use of insulin (HCC)- Primary documented in this encounter [facility] for referral (narrative)* Diagnostic Procedure Only (Routine) - Closed Specialty Diagnoses / Procedures Referred By Contac t Referred To Contact XR IMAGING Diagnoses Pain of toe, unspecified laterality Procedures XR TOE AP/LAT/OBL LEFT RADEX TOE MINIMUM 2 VIEWS Isabela Hernández APRN.CNP [address] [place] [address] Xr Imaging Referral ID Status Reason Start Date Expiration Date V isits Requested Visits Authorized [id number] Closed Auto-Generate d Referral 06/15/2022 07/15/2023 1 1 [facility] for referral (narrative)* Outpatient Procedure (Routine) - Authorized Specialty Diagnoses / Procedures Referred By Contac t Referred To Contact [facility] Diagnoses Bilateral carotid artery stenosis Procedures US CAROTID ARTERIES [facility] DUPLEX SCAN EXTRACRANIAL ART COMPL BI STUDY Lia Markham MD [address] [place] [address] [facility] [place] [address] [place] [address] Referral ID Status Reason Start Date Expiration Date Visits Requested Visits Authorized [id number] Authorized Auto-Generat ed Referral 08/20/2022 08/20/2023 1 1 * Diagnostic Procedure Only (Routine) - Authorized Specialty Diagnoses / Procedures Referred By Contac t Referred To Contact US IMAGING Diagnoses Abdominal aortic aneurysm (AAA) without rupture Procedures US DOPPLER AORTA DUP-SCAN ARTL DANIS ABDL/PEL/SCROT&/RPR ORGN LMT Lia Markham MD [address] [place] [address] Us Imaging Referral ID Status Reason Start Date Expiration Date Visits Requested Visits Authorized [id number] Authorized Auto-Generat ed Referral 08/20/2022 09/19/2023 1 1 * Diagnostic Procedure Only (Routine) - Authorized Specialty Diagnoses / Procedures Referred By Contac t Referred To Contact US IMAGING Diagnoses Abdominal aortic aneurysm (AAA) without rupture Procedures US ABD AORTA US RETROPERITONEAL REAL TIME W/IMAGE LIMITED Lia Markham MD [address] [place] [address] Us Imaging Referral ID Status Reason Start Date Expiration Date Visits Requested Visits Authorized [id number] Authorized Auto-Generat ed Referral 08/20/2022 09/19/2023 1 1 [facility] for referral (narrative)* Diagnostic Procedure Only (Routine) - Closed Specialty Diagnoses / Procedures Referred By Contac t Referred To Contact US IMAGING Diagnoses Abdominal aortic aneurysm (AAA) without rupture Procedures US DOPPLER AORTA DUP-SCAN ARTL DANIS ABDL/PEL/SCROT&/RPR ORGN LMT Lia Markham MD [address] [place] [address] Us Imaging Referral ID Status Reason Start Date Expiration Date V isits Requested Visits Authorized [id number] Closed Auto-Generate d Referral 08/20/2022 09/19/2023 1 1 * Diagnostic Procedure Only (Routine) - Closed Specialty Diagnoses / Procedures Referred By Contac t Referred To Contact US IMAGING Diagnoses Abdominal aortic aneurysm (AAA) without rupture Procedures US ABD AORTA US RETROPERITONEAL REAL TIME W/IMAGE LIMITED Lia Markham MD [address] [place] [address] Us Imaging Referral ID Status Reason Start Date Expiration Date V isits Requested Visits Authorized [id number] Closed Auto-Generate d Referral 08/20/2022 09/19/2023 1 1 [facility] for referral (narrative)* Outpatient Procedure (Routine) - Authorized Specialty Diagnoses / Procedures Referred By Contac t Referred To Contact [facility] [place] [place] Diagnoses SOB (shortness of breath) Procedures SPIROMETRY WITH DILATOR IF OBSTRUCTED BRNCDILAT RSPSE SPMTRY PRE&POST-BRNCDILAT ADMN Lia Markham MD [address] [place] [address] [address] Referral ID Status Reason Start Date Expiration Date Visits Requested Visits Authorized [id number] Authorized Auto-Generat ed Referral 2 10/03/2023 1 1 * Outpatient Procedure (Routine) - Authorized Specialty Diagnoses / Procedures Referred By Contac t Referred To Contact [facility] [place] Diagnoses SOB (shortness of breath) Procedures LUNG DIFFUSION CAPACITY (DLCO) DIFFUSING CAPACITY Lia Markham MD [address] [place] [address] [address] Referral ID Status Reason Start Date Expiration Date Visits Requested Visits Authorized [id number] Authorized Auto-Generat ed Referral 2 10/03/2023 1 1 * Outpatient Procedure (Routine) - Authorized Specialty Diagnoses / Procedures [facility] [place] Diagnoses SOB (shortness of breath) Procedures LUNG VOLUMES Lia Markham MD [address] [place] [address] [address] Referral ID Status Reason Start Date Expiration Date Visits Requested Visits Authorized [id number] Authorized Auto-Generat ed Referral 2 10/03/2023 1 1 * Outpatient Procedure (Routine) - Authorized Specialty Diagnoses / Procedures Referred By Contac t Referred To Contact [facility] Diagnoses SOB (shortness of breath) Procedures ECG COMPLETE ECG ROUTINE ECG W/LEAST 12 LDS W/I&R Lia Markham MD [address] [place] [address] [facility] [place] [address] [place] [address] Referral ID Status Reason Start Date Expiration Date Visits Requested Visits Authorized [id number] Authorized Auto-Generat ed Referral 2 09/03/2023 1 1 [facility] for referral (narrative)* Diagnostic Procedure Only (Routine) - Authorized Specialty Diagnoses / Procedures Referred By Contac t Referred To Contact US IMAGING Diagnoses Abdominal aortic aneurysm (AAA) without rupture, unspecified part (HCC) Procedures US DOPPLER AORTA DUP-SCAN ARTL DANIS ABDL/PEL/SCROT&/RPR ORGN LMT Lia Markham MD [address] [place] [address] Us Imaging [id number] Referral ID Status Reason Start Date Expiration Date Visits Requested Visits Authorized [id number] Authorized Auto-Generat ed Referral 3 10/13/2024 1 1 * Diagnostic Procedure Only (Routine) - Authorized Specialty Diagnoses / Procedures Referred By Contac t Referred To Contact US IMAGING Diagnoses Abdominal aortic aneurysm (AAA) without rupture, unspecified part (HCC) Procedures US ABD AORTA US RETROPERITONEAL REAL TIME W/IMAGE LIMITED Lia Markham MD [address] [place] [address] Us Imaging [id number] Referral ID Status Reason Start Date Expiration Date Visits Requested Visits Authorized [id number] Authorized Auto-Generat ed Referral 3 10/13/2024 1 1 * Consult, Test, Treat (Routine) - Authorized Specialty Diagnoses / Procedures Referred By Contac t Referred To Contact Neurology Diagnoses Cerebrovascular accident (CVA), unspecified mechanism (HCC) Infarction of thalamus (HCC) Procedures CONSULT TO NEUROLOGY OFFICE/OUTPATIENT NEW HIGH MDM 60-74 MINUTES Lia Markham MD [address] [place] [address] Referral ID Status Reason Start Date Expiration Date Visits Requested Visits Authorized [id number] Authorized PCP Requested Referral 3 09/13/2024 1 1 * Occupational Therapy (Routine) - Authorized Specialty Diagnoses / Procedures Referred By Contac t Referred To Contact [facility] Diagnoses History of stroke with residual effects Procedures CONSULT TO METAL STAMPER OCCUPATIONAL THERAPY EVAL HIGH COMPLEX [place] [address] [place] [address] [facility] [address] [address] Referral ID Status Reason Start Date Expiration Date Visits Requested Visits Authorized [id number] Authorized PCP Requested Referral Auto-Generate d Referral 3 09/13/2024 99 99 * Speech Therapy (Routine) - Authorized Specialty Diagnoses / Procedures Referred By Starr t Referred To Contact [facility] Diagnoses History of stroke with residual effects Procedures CONSULT TO SPEECH THERAPY OFFICE/OUTPATIENT [facility] 60-74 MINUTES Lia Markham MD [address] [place] [address] [facility] [address] [address] Referral ID Status Reason Start Date Expiration Date Visits Requested Visits Authorized [id number] Authorized Auto-Generat ed Referral 3 09/13/2024 99 99 * Physical Therapy (Routine) - Authorized Specialty Diagnoses / Procedures Referred By Contac t Referred To Contact [facility] Diagnoses History of stroke with residual effects Procedures CONSULT TO PHYSICAL THERAPY PHYSICAL THERAPY EVALUATION HIGH COMPLEX 45 MINS Lia Markham MD [address] [place] [address] [facility] [place] [address] [place] [address] Referral ID Status Reason Start Date Expiration Date Visits Requested Visits Authorized [id number] Authorized PCP Requested Referral Auto-Generate d Referral 09/13/2024 99 99 [facility] Diagnostic Procedure Only (Routine) - Closed Specialty Diagnoses / Procedures Referred By Contac t Referred To Contact US IMAGING Diagnoses Abdominal aortic aneurysm (AAA) without rupture, unspecified part (HCC) Procedures US DOPPLER AORTA DUP-SCAN ARTL DANIS ABDL/PEL/SCROT&/RPR ORGN LMT Lia Markham MD [address] [place] [address] [place] [address] Referral ID Status Reason Start Date Expiration Date V isits Requested Visits Authorized [id number] Closed Auto-Generate d Referral 09/14/2023 10/13/2024 1 1 * Diagnostic Procedure Only (Routine) - Closed Specialty Diagnoses / Procedures Referred By Contac t Referred To Contact US IMAGING Diagnoses Abdominal aortic aneurysm (AAA) without rupture, unspecified part (HCC) Procedures US ABD AORTA US RETROPERITONEAL REAL TIME W/IMAGE LIMITED Lia Markham MD [address] [place] [address] [place] [address] Referral ID Status Reason Start Date Expiration Date V isits Requested Visits Authorized [id number] Closed Auto-Generate d Referral 09/14/2023 10/13/2024 1 1 [facility] Advance Directives Documents on File Type Date Recorded Patient Manager New Product Expl anation Advance Directive(s) 10/06/2021 6:19 AM Advance Directive(s) 09/15/2021 10:31 AM Advance Directive(s) 06/06/2017 8:13 AM Documents on File Type Date Recorded Patient Manager New Product Expl anation Advance Directive(s) 10/06/2021 6:19 AM [...] unspecified laterality Procedures CONSULT TO PODIATRY OFFICE/OUTPATIENT [facility] 60-74 MINUTES Lia Markham MD [address] [place] [address] Referral ID Status Reason Start Date Expiration Date Visits Requested Visits Authorized [id number] Authorized PCP Requested Referral 06/25/2022 06/25/2023 1 1 Specialty Diagnoses / Procedures Referred By Contac t Referred To Contact CT IMAGING Diagnoses Lung fibrosis (HCC) SOB (shortness of breath) Procedures CT CHEST WO IVCON DIAGNOSTIC COMPUTED TOMOGRAPHY THORAX W/O CNTRST Lia Markham MD [address] [place] [address] Ct Imaging Referral ID Status Reason Start Date Expiration Date V isits Requested Visits Authorized [id number] Closed Auto-Generate d Referral 09/03/2022 10/03/2023 1 1 Specialty Diagnoses / Procedures Referred By Contac t Referred To Contact [facility] Diagnoses SOB (shortness of breath) Procedures CONSULT TO PULM/CRITICAL CARE OFFICE/OUTPATIENT [facility] 60-74 MINUTES Lia Markham MD [address] [place] [address] Referral ID Status Reason Start Date Expiration Date Visits Requested Visits Authorized [id number] Authorized PCP Requested Referral 09/07/2023 1 1 Specialty Diagnoses / Procedures Referred By Contac t Referred To Contact Urology Diagnoses Post-void dribbling Procedures [place] [address] [place] [address] Referral ID Status Reason Start Date Expiration Date Visits Requested Visits Authorized [id number] Ref Not Required PCP Requested Referral 02/11/2023 02/11/2024 1 1 Specialty Diagnoses / Procedures Referred By Contac t Referred To Contact CT IMAGING Diagnoses Former cigarette smoker Procedures CT LUNG SCREEN WO IVCON COMPUTED TOMOGRAPHY THORAX LW DOSE LNG CA 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, 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 [address] [id number] [facility] [place] [address] Referral ID Status Reason Start Date Expiration Date Visits Requested Visits Authorized [id number] Authorized Auto-Generat ed Referral 3 10/19/2024 1 1 Specialty Diagnoses / Procedures Referred By Contac t Referred To Contact CT IMAGING Diagnoses Personal history of tobacco use, presenting hazards to health Procedures CT LUNG SCREEN WO IVCON COMPUTED TOMOGRAPHY THORAX LW DOSE LNG CA SCR Angeles Dillon, 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 [address] [place] [id number] [facility] [place] [address] Referral ID Status Reason Start Date Expiration Date Visits Requested Visits Authorized [id number] Pending Review Auto-Generat ed Referral 09/29/2023 10/28/2024 [...] or prosecute any alcohol or drug abuse patient.[facility] the event this information is protected by the Federal Confidentiality of Alcohol and Drug Abuse Patient Records regulations: The Federal rules restrict any use of the information to criminally investigate or prosecute any alcohol or drug abuse patient.[facility] the event this information is protected by the Federal Confidentiality of Alcohol and Drug Abuse Patient Records regulations: The Federal rules restrict any use of the information to criminally investigate or prosecute any alcohol or drug abuse patient.[facility] the event this information is protected by the Federal Confidentiality of Alcohol and Drug Abuse Patient Records regulations: The Federal rules restrict any use of the information to criminally investigate or prosecute any alcohol or drug abuse patient.[facility] the event this information is protected by the Federal Confidentiality of Alcohol and Drug Abuse Patient Records regulations: The Federal rules restrict any use of the information to criminally investigate or prosecute any alcohol or drug abuse patient.[facility] the event this information is protected by the Federal Confidentiality of Alcohol and Drug Abuse Patient Records regulations: The Federal rules restrict any use of the information to criminally investigate or prosecute any alcohol or drug abuse patient.[facility] the event this information is protected by the Federal Confidentiality of Alcohol and Drug Abuse Patient Records regulations: The Federal rules restrict any use of the information to criminally investigate or prosecute any alcohol or drug abuse patient.[facility] the event this information is protected by the Federal Confidentiality of Alcohol and Drug Abuse Patient Records regulations: The Federal rules restrict any use of the information to criminally investigate or prosecute any alcohol or drug abuse patient.[facility] the event this information is protected by the Federal Confidentiality of Alcohol and Drug Abuse Patient Records regulations: The Federal rules restrict any use of the information to criminally investigate or prosecute any alcohol or drug abuse patient.[facility] the event this information is protected by the Federal Confidentiality of Alcohol and Drug Abuse Patient Records regulations: The Federal rules restrict any use of the information to criminally investigate or prosecute any alcohol or drug abuse patient.[facility] the event this information is protected by the Federal Confidentiality of Alcohol and Drug Abuse Patient Records regulations: The Federal rules restrict any use of the information to criminally investigate or prosecute any alcohol or drug abuse patient.[facility] the event this information is protected by the Federal Confidentiality of Alcohol and Drug Abuse Patient Records regulations: The Federal rules restrict any use of the information to criminally investigate or prosecute any alcohol or drug abuse patient.[facility] the event this information is protected by the Federal Confidentiality of Alcohol and Drug Abuse Patient Records regulations: The Federal rules restrict any use of the information to criminally investigate or prosecute any alcohol or drug abuse patient.[facility] the event this information is protected by the Federal Confidentiality of Alcohol and Drug Abuse Patient Records regulations: The Federal rules restrict any use of the information to criminally investigate or prosecute any alcohol or drug abuse patient.[facility] Hospital[facility] the event this information is protected by the Federal Confidentiality of Alcohol and Drug Abuse Patient Records regulations: The Federal rules restrict any use of the information to criminally investigate or prosecute any alcohol or drug abuse patient.[facility] the event this information is protected by the Federal Confidentiality of Alcohol and Drug Abuse Patient Records regulations: The Federal rules restrict any use of the information to criminally investigate or prosecute any alcohol or drug abuse patient.[facility] the event this information is protected by the Federal Confidentiality of Alcohol and Drug Abuse Patient Records regulations: The Federal rules restrict any use of the information to criminally investigate or prosecute any alcohol or drug abuse patient.[facility] Hospital[facility] the event this information is protected by the Federal Confidentiality of Alcohol and Drug Abuse Patient Records regulations: The Federal rules restrict any use of the information to criminally investigate or prosecute any alcohol or drug abuse patient.[facility] Hospital[facility] the event this information is protected by the Federal Confidentiality of Alcohol and Drug Abuse Patient Records regulations: The Federal rules restrict any use of the information to criminally investigate or prosecute any alcohol or drug abuse patient.[facility] HospitalIn the event this information is protected by the Federal Confidentiality of Alcohol and Drug Abuse Patient Records regulations: The Federal rules restrict any use of the information to criminally investigate or prosecute any alcohol or drug abuse patient.[facility] HospitalIn the event this information is protected by the Federal Confidentiality of Alcohol and Drug Abuse Patient Records regulations: The Federal rules restrict any use of the information to criminally investigate or prosecute any alcohol or drug abuse patient.[facility] HospitalIn the event this information is protected by the Federal Confidentiality of Alcohol and Drug Abuse Patient Records regulations: The Federal rules restrict any use of the information to criminally investigate or prosecute any alcohol or drug abuse patient.[facility] HospitalIn the event this information is protected by the Federal Confidentiality of Alcohol and Drug Abuse Patient Records regulations: The Federal rules restrict any use of the information to criminally investigate or prosecute any alcohol or drug abuse patient.[facility] HospitalIn the event this information is protected by the Federal Confidentiality of Alcohol and Drug Abuse Patient Records regulations: The Federal rules restrict any use of the information to criminally investigate or prosecute any alcohol or drug abuse patient.[facility] HospitalIn the event this information is protected by the Federal Confidentiality of Alcohol and Drug Abuse Patient Records regulations: The Federal rules restrict any use of the information to criminally investigate or prosecute any alcohol or drug abuse patient.[facility] HospitalIn the event this information is protected by the Federal Confidentiality of Alcohol and Drug Abuse Patient Records regulations: The Federal rules restrict any use of the information to criminally investigate or prosecute any alcohol or drug abuse patient.[facility] HospitalIn the event this information is protected by the Federal Confidentiality of Alcohol and Drug Abuse Patient Records regulations: The Federal rules restrict any use of the information to criminally investigate or prosecute any alcohol or drug abuse patient.[facility] HospitalIn the event this information is protected by the Federal Confidentiality of Alcohol and Drug Abuse Patient Records regulations: The Federal rules restrict any use of the information to criminally investigate or prosecute any alcohol or drug abuse patient.[facility] HospitalIn the event this information is protected by the Federal Confidentiality of Alcohol and Drug Abuse Patient Records regulations: The Federal rules restrict any use of the information to criminally investigate or prosecute any alcohol or drug abuse patient.[facility] HospitalIn the event this information is protected by the Federal Confidentiality of Alcohol and Drug Abuse Patient Records regulations: The Federal rules restrict any use of the information to criminally investigate or prosecute any alcohol or drug abuse patient.[facility] HospitalIn the event this information is protected by the Federal Confidentiality of Alcohol and Drug Abuse Patient Records regulations: The Federal rules restrict any use of the information to criminally investigate or prosecute any alcohol or drug abuse patient.[facility] HospitalIn the event this information is protected by the Federal Confidentiality of Alcohol and Drug Abuse Patient Records regulations: The Federal rules restrict any use of the information to criminally investigate or prosecute any alcohol or drug abuse patient.[facility] HospitalIn the event this information is protected by the Federal Confidentiality of Alcohol and Drug Abuse Patient Records regulations: The Federal rules restrict any use of the information to criminally investigate or prosecute any alcohol or drug abuse patient.[facility] HospitalIn the event this information is protected by the Federal Confidentiality of Alcohol and Drug Abuse Patient Records regulations: The Federal rules restrict any use of the information to criminally investigate or prosecute any alcohol or drug abuse patient.[facility] HospitalIn the event this information is protected by the Federal Confidentiality of Alcohol and Drug Abuse Patient Records regulations: The Federal rules restrict any use of the information to criminally investigate or prosecute any alcohol or drug abuse patient.[facility] HospitalIn the event this information is protected by the Federal Confidentiality of Alcohol and Drug Abuse Patient Records regulations: The Federal rules restrict any use of the information to criminally investigate or prosecute any alcohol or drug abuse patient.[facility] HospitalIn the event this information is protected by the Federal Confidentiality of Alcohol and Drug Abuse Patient Records regulations: The Federal rules restrict any use of the information to criminally investigate or prosecute any alcohol or drug abuse patient.[facility] HospitalIn the event this information is protected by the Federal Confidentiality of Alcohol and Drug Abuse Patient Records regulations: The Federal rules restrict any use of the information to criminally investigate or prosecute any alcohol or drug abuse patient.[facility] HospitalIn the event this information is protected by the Federal Confidentiality of Alcohol and Drug Abuse Patient Records regulations: The Federal rules restrict any use of the information to criminally investigate or prosecute any alcohol or drug abuse patient.[facility] HospitalIn the event this information is protected by the Federal Confidentiality of Alcohol and Drug Abuse Patient Records regulations: The Federal rules restrict any use of the information to criminally investigate or prosecute any alcohol or drug abuse patient.[facility] HospitalIn the event this information is protected by the Federal Confidentiality of Alcohol and Drug Abuse Patient Records regulations: The Federal rules restrict any use of the information to criminally investigate or prosecute any alcohol or drug abuse patient.[facility] HospitalIn the event this information is protected by the Federal Confidentiality of Alcohol and Drug Abuse Patient Records regulations: The Federal rules restrict any use of the information to criminally investigate or prosecute any alcohol or drug abuse patient.[facility] HospitalIn the event this information is protected by the Federal Confidentiality of Alcohol and Drug Abuse Patient Records regulations: The Federal rules restrict any use of the information to criminally investigate or prosecute any alcohol or drug abuse patient.[facility] HospitalIn the event this information is protected by the Federal Confidentiality of Alcohol and Drug Abuse Patient Records regulations: The Federal rules restrict any use of the information to criminally investigate or prosecute any alcohol or drug abuse patient.[facility] HospitalIn the event this information is protected by the Federal Confidentiality of Alcohol and Drug Abuse Patient Records regulations: The Federal rules restrict any use of the information to criminally investigate or prosecute any alcohol or drug abuse patient.[facility] HospitalIn the event this information is protected by the Federal Confidentiality of Alcohol and Drug Abuse Patient Records regulations: The Federal rules restrict any use of the information to criminally investigate or prosecute any alcohol or drug abuse patient.[facility] HospitalIn the event this information is protected by the Federal Confidentiality of Alcohol and Drug Abuse Patient Records regulations: The Federal rules restrict any use of the information to criminally investigate or prosecute any alcohol or drug abuse patient.[facility] HospitalIn the event this information is protected by the Federal Confidentiality of Alcohol and Drug Abuse Patient Records regulations: The Federal rules restrict any use of the information to criminally investigate or prosecute any alcohol or drug abuse patient.[facility] HospitalIn the event this information is protected by the Federal Confidentiality of Alcohol and Drug Abuse Patient Records regulations: The Federal rules restrict any use of the information to criminally investigate or prosecute any alcohol or drug abuse patient.[facility] HospitalIn the event this information is protected by the Federal Confidentiality of Alcohol and Drug Abuse Patient Records regulations: The Federal rules restrict any use of the information to criminally investigate or prosecute any alcohol or drug abuse patient.[facility] HospitalIn the event this information is protected by the Federal Confidentiality of Alcohol and Drug Abuse Patient Records regulations: The Federal rules restrict any use of the information to criminally investigate or prosecute any alcohol or drug abuse patient.[facility] HospitalIn the event this information is protected by the Federal Confidentiality of Alcohol and Drug Abuse Patient Records regulations: The Federal rules restrict any use of the information to criminally investigate or prosecute any alcohol or drug abuse patient.[facility] HospitalIn the event this information is protected by the Federal Confidentiality of Alcohol and Drug Abuse Patient Records regulations: The Federal rules restrict any use of the information to criminally investigate or prosecute any alcohol or drug abuse patient.[facility] HospitalIn the event this information is protected by the Federal Confidentiality of Alcohol and Drug Abuse Patient Records regulations: The Federal rules restrict any use of the information to criminally investigate or prosecute any alcohol or drug abuse patient.[facility] HospitalIn the event this information is protected by the Federal Confidentiality of Alcohol and Drug Abuse Patient Records regulations: The Federal rules restrict any use of the information to criminally investigate or prosecute any alcohol or drug abuse patient.[facility] HospitalIn the event this information is protected by the Federal Confidentiality of Alcohol and Drug Abuse Patient Records regulations: The Federal rules restrict any use of the information to criminally investigate or prosecute any alcohol or drug abuse patient.[facility] HospitalIn the event this information is protected by the Federal Confidentiality of Alcohol and Drug Abuse Patient Records regulations: The Federal rules restrict any use of the information to criminally investigate or prosecute any alcohol or drug abuse patient.[facility] HospitalIn the event this information is protected by the Federal Confidentiality of Alcohol and Drug Abuse Patient Records regulations: The Federal rules restrict any use of the information to criminally investigate or prosecute any alcohol or drug abuse patient.[facility] HospitalIn the event this information is protected by the Federal Confidentiality of Alcohol and Drug Abuse Patient Records regulations: The Federal rules restrict any use of the information to criminally investigate or prosecute any alcohol or drug abuse patient.[facility] HospitalIn the event this information is protected by the Federal Confidentiality of Alcohol and Drug Abuse Patient Records regulations: The Federal rules restrict any use of the information to criminally investigate or prosecute any alcohol or drug abuse patient.[facility] HospitalIn the event this information is protected by the Federal Confidentiality of Alcohol and Drug Abuse Patient Records regulations: The Federal rules restrict any use of the information to criminally investigate or prosecute any alcohol or drug abuse patient.[facility] Reason for Visit (unrecogniz ed section [...] REAL TIME W/IMAGE LIMITED Lia Markham MD [address] [place] [address] [facility] Referral ID Status Reason Start Date Expiration Date V isits Requested Visits Authorized [id number] Closed Auto-Generate d Referral 08/20/2022 09/19/2023 1 1 Reason Comments Breathing Problem Reason Comments Shortness of Breath SOB on exertion X 1 yr Reason Comments Spirometry Specialty Diagnoses / Procedures Referred By Contac t Referred To Contact [facility] Diagnoses SOB (shortness of breath) Procedures SPIROMETRY WITH DILATOR IF OBSTRUCTED BRNCDILAT RSPSE SPMTRY PRE&POST-BRNCDILAT ADMN Lia Markham MD [address] [place] [address] Respiratory [place] [address] [place] [id number] Referral ID Status Reason Start Date Expiration Date V isits Requested Visits Authorized [id number] Closed Auto-Generate d Referral 09/03/2022 10/03/2023 1 1 Specialty Diagnoses / Procedures Referred By Contac t Referred To Contact [facility] Diagnoses SOB (shortness of breath) Procedures LUNG VOLUMES Lia Markham MD [address] [place] [address] Res[facility] [place] [address] [place] [id number] Referral ID Status Reason Start Date Expiration Date V isits Requested Visits Authorized [id number] Closed Auto-Generate d Referral 09/03/2022 10/03/2023 [address] Specialty Diagnoses / Procedures Referred By Contac t Referred To Contact CT IMAGING Diagnoses Lung fibrosis (HCC) SOB (shortness of breath) Procedures CT CHEST WO IVCON DIAGNOSTIC COMPUTED TOMOGRAPHY THORAX W/O CNTRST Lia Markham MD [address] [place] [address] Ct Imaging Referral ID Status Reason Start Date Expiration Date V isits Requested Visits Authorized [id number] Closed Auto-Generate d Referral 09/03/2022 10/03/2023 1 1 Reason Comments Results Reason Comments Consult Reason Comments fax request Reason Comments New Patient Dyspnea Shortness of Breath Specialty Diagnoses / Procedures Referred By Contac t Referred To Contact Pulmonary and Critical Care Medicine Diagnoses SOB (shortness of breath) Procedures CONSULT TO PULM/CRITICAL CARE OFFICE/OUTPATIENT NEW HIGH MDM 60-74 MINUTES Lia Markham MD [address] [place] [address] Referral ID Status Reason Start Date Expiration Date V isits Requested Visits Authorized [id number] Closed PCP Requested Referral 09/07/2022 09/07/2023 1 [...] TIME W/IMAGE LIMITED Lia Markham MD [address] [place] [address] [place] [address] Referral ID Status Reason Start Date Expiration Date V isits Requested Visits Authorized [id number] Closed Auto-Generate d Referral 09/14/2023 10/13/2024 1 1 Reason Comments Patient Update Care Teams (unrecognized sec tion and content) Financial Services Representative Relationship Specialty Start Date End Date Lia Markham MD [address] [place] [address] PCP - General Family Practice 09/27/12 Financial Services Representative Relationship Specialty Start Date End Date Lia Markham MD [address] [place] [id number] PCP - General Family Practice 09/27/12 Financial Services Representative Relationship Specialty Start Date End Date Lia Markham MD [address] [place] [address] PCP - General Family Practice 09/27/12 Financial Services Representative Relationship Specialty Start Date End Date Lia Markham MD [address] [place] [address] PCP - General Family Practice 09/27/12 Financial Services Representative Relationship Specialty Start Date End Date Lia Markham MD [address] [place] [address] PCP - General Family Practice 09/27/12 Financial Services Representative Relationship Specialty Start Date End Date Lia Markham MD [address] [place] [id number] PCP - General Family Practice 09/27/12 Financial Services Representative Relationship Specialty Start Date End Date Lia Markham MD [address] [place] [address] PCP - General Family Practice 09/27/12 Financial Services Representative Relationship Specialty Start Date End Date Lia Markham MD [address] [place] [address] PCP - General Family Practice 09/27/12 Financial Services Representative Relationship Specialty Start Date End Date Lia Markham MD [address] [place] [address] PCP - General Family Practice 09/27/12 Financial Services Representative Relationship Specialty Start Date End Date Lia Markham MD [address] [place] [address] PCP - General Family Medicine 09/27/12 Financial Services Representative Relationship Specialty Start Date End Date Lia Markham MD [address] [place] [address] PCP - General Family Medicine 09/27/12 Financial Services Representative Relationship Specialty Start Date End Date Lia Markham MD [address] [place] [address] PCP - General Family Medicine 09/27/12 Financial Services Representative Relationship Specialty Start Date End Date Lia Markham MD [address] [place] [address] PCP - General Family Medicine 09/27/12 Financial Services Representative Relationship Specialty Start Date End Date Lia Markham MD [address] [place] [address] PCP - General Family Medicine 09/27/12 Financial Services Representative Relationship Specialty Start Date End Date Lia Markham MD [address] [place] [address] PCP - General Family Medicine 09/27/12 Financial Services Representative Relationship Specialty Start Date End Date Lia Markham MD [address] [place] [address] PCP - General Family Medicine 09/27/12 Financial Services Representative Relationship Specialty Start Date End Date Lia Markham MD [address] [place] [address] PCP - General Family Medicine 09/27/12 Financial Services Representative Relationship Specialty Start Date End Date Lia Markham MD [address] [place] [address] PCP - General Family Medicine 09/27/12 Financial Services Representative Relationship Specialty Start Date End Date Lia Markham MD [address] [place] [address] PCP - General Family Medicine 09/27/12 Financial Services Representative Relationship Specialty Start Date End Date Lia Markham MD [address] [place] [address] PCP - General Family Medicine 09/27/12 Financial Services Representative Relationship Specialty Start Date End Date Lia Markham MD [address] [place] [address] PCP - General Family Medicine 09/27/12 Financial Services Representative Relationship Specialty Start Date End Date Lia Markham MD [address] [place] [address] PCP - General Family Medicine 09/27/12 Financial Services Representative Relationship Specialty Start Date End Date Lia Markham MD [address] [place] [address] PCP - General Family Medicine 09/27/12 Financial Services Representative Relationship Specialty Start Date End Date Lia Markham MD [address] [place] [address] PCP - General Family Medicine 09/27/12 Financial Services Representative Relationship Specialty Start Date End Date Lia Markham MD [address] [place] [address] PCP - General Family Medicine 09/27/12 Financial Services Representative Relationship Specialty Start Date End Date Lia Markham MD [address] [place] [address] PCP - General Family Medicine 09/27/12 Financial Services Representative Relationship Specialty Start Date End Date Lia Markham MD [address] [place] [address] PCP - General Family Medicine 09/27/12 Financial Services Representative Relationship Specialty Start Date End Date Lia Markham MD [address] [place] [address] PCP - General Family Medicine 09/27/12 Financial Services Representative Relationship Specialty Start Date End Date Lia Markham MD [address] [place] [address] PCP - General Family Medicine 09/27/12 Financial Services Representative Relationship Specialty Start Date End Date Lia Markham MD [address] [place] [address] PCP - General Family Medicine 09/27/12 Financial Services Representative Relationship Specialty Start Date End Date Lia Markham MD [address] [place] [address] PCP - General Family Medicine 09/27/12 Financial Services Representative Relationship Specialty Start Date End Date Lia Markham MD [address] [place] [address] PCP - General Family Medicine 09/27/12 Financial Services Representative Relationship Specialty Start Date End Date Lia Markham MD [address] [place] [address] PCP - General Family Medicine 09/27/12 Financial Services Representative Relationship Specialty Start Date End Date Lia Markham MD [address] [facility] [place] [address] PCP - General Family Medicine 09/27/12 Financial Services Representative Relationship Specialty Start Date End Date Lia Markham MD [address] [place] [address] PCP - General Family Medicine 09/27/12 Financial Services Representative Relationship Specialty Start Date End Date Lia Markham MD [address] [place] [address] PCP - General Family Medicine 09/27/12 Carly Banks MD [address] [place] [address] Pulmonary and Critical Care Medicine 09/20/23 Financial Services Representative Relationship Specialty Start Date End Date Lia Markham MD [address] [place] [address] PCP - General Family Medicine 09/27/12 Carly Banks MD [address] [place] [address] Pulmonary and Critical Care Medicine 09/20/23 Financial Services Representative Relationship Specialty Start Date End Date Lia Markham MD [address] [place] [address] PCP - General Family Medicine 09/27/12 Carly Banks MD [address] [place] [address] Pulmonary and Critical Care Medicine 09/20/23 Financial Services Representative Relationship Specialty Start Date End Date Lia Markham MD [address] [place] [address] PCP - General Family Medicine 09/27/12 Carly Banks MD [address] [place] [address] Pulmonary and Critical Care Medicine 09/20/23 Financial Services Representative Relationship Specialty Start Date End Date Lia Markham MD [address] [place] [address] PCP - General Family Medicine 09/27/12 Carly Banks MD [address] [place] [address] Pulmonary and Critical Care Medicine 09/20/23 Financial Services Representative Relationship Specialty Start Date End Date Lia Markham MD [address] [place] [address] PCP - General Family Medicine 09/27/12 Carly Banks MD [address] [place] [address] Pulmonary and Critical Care Medicine 09/20/23 Financial Services Representative Relationship Specialty Start Date End Date Lia Markham MD [address] [place] [address] PCP - General Family Medicine 09/27/12 Carly Banks MD [address] [place] [address] Pulmonary and Critical Care Medicine 09/20/23 Financial Services Representative Relationship Specialty Start Date End Date Lia Markham MD [address] [place] [place], [place] [address] PCP - General Family Medicine 09/27/12 Carly Banks MD [address] [place] [address] Pulmonary and Critical Care Medicine 09/20/23 Financial Services Representative Relationship Specialty Start Date End Date Lia Markham MD [address] [facility] [place] [address] PCP - General Family Medicine 09/27/12 Carly Banks MD [address] [place] [address] Pulmonary and Critical Care Medicine 09/20/23 Financial Services Representative Relationship Specialty Start Date End Date Lia Markham MD [address] [facility] [place] [address] PCP - General Family Medicine 09/27/12 Carly Banks MD [address] [place] [address] Pulmonary and Critical Care Medicine 09/20/23 Financial Services Representative Relationship Specialty Start Date End Date Lia Markham MD [address] [place] [address] PCP - General Family Medicine 09/27/12 Carly Banks MD [address] [place] [address] Pulmonary and Critical Care Medicine 09/20/23 (unrecognized [...] BE BASED ON THE PRIMARY CLINICAL RECORDS. [facility]. provides no warranty or guarantee of the accuracy or completeness of information in this document.
[2024-01-03 21:23] LABS: Absolute Neutrophil Count 15.2 X10^3/uL (2.0-7.7); Basophil# 0.03 X10^3/uL; Basophil% 0.2 % (0-1); Eosinophil# 0.04 X10^3/uL; Eosinophils% 0.2 % (0-5); Hematocrit 44.8 % (40-54); Hemoglobin 14.7 g/dL (13.0-16.5); Lymphocyte % 1.9 % (19-41); Mean Corp Hgb Conc 32.8 g/dL (32-36); Mean Corpuscular Hgb 27.6 pg (27.0-32.0); Mean Corpuscular Volume 84.2 fL (80-94); Mean Platelet Vol. 11.5 fl (6.2-12.0); Monocyte# 0.55 X10^3/uL; Monocyte% 3.4 % (0-10); NRBC Flagged by Analyzer 0 % (0-5); Neutrophil # 15.18 X10^3/uL (2.7-7.7); Neutrophil % 93.8 % (47-70); POSITIVE DIFFERENTIAL YES; Platelet Count 268 K/mm3 (150-450); RBC Distribution Width CV 15.6 % (11.6-14.6); RBC Distribution Width SD 47.3 fl (35.1-43.9); Red Blood Count 5.32 M/mm3 (4.6-6.2); White Blood Count 16.2 K/mm3 (4.4-11.0)
[2024-01-03] MEDS: Ondansetron 4 MG/2 ML Vial IV (21:23)
[2024-01-03] MEDS: 0.9% Normal Saline (1000mL) 1,000 ML 1000 ML IV (21:23)
--- NOTE | 2024-01-03 21:23 | RAD_ITS ---
STUDY: X-RAY CHEST REASON FOR EXAM: Male, 68 years old. pneumonia TECHNIQUE: AP portable COMPARISON: September 26, 2023 FINDINGS: Mild nonspecific interstitial thickening in the right lower lobe. There is no demonstrated pleural abnormality. Normal size heart. Normal mediastinum and daisy. Normal visualized pulmonary arteries. Mildly calcified aortic arch and descending thoracic aorta. Normal visualized thoracic spine. Normal visualized ribs, clavicles, and shoulders. There is no demonstrated abnormality of the visualized soft tissue structures of the upper abdomen. No significant change since prior exam RAD/Chest 1 View (Portable) IMPRESSION: Chronic interstitial changes at the right base. No acute cardiopulmonary pathology. Electronically Signed: Wilman Queen MD at 21:57 EST ,
[2024-01-03 21:25] LABS: Differential Indicated SCAN CRITERIA MET
[2024-01-03 21:40] LABS: ALB/GLOB Ratio 0.7 RATIO (0.9-2.4); AST(SGOT) 391 U/L (15-37); Alanine Aminotransfer ALT/SGPT 294 U/L (16-61); Albumin, Serum 2.9 g/dL (3.2-5.0); Alkaline Phosphatase 328 U/L (45-117); Anion Gap 10 (5-15); BUN 15 mg/dL (7-18); BUN/Creat Ratio 14.2 RATIO (10-20); Calcium,Total 9.2 mg/dL (8.5-10.1); Chloride 103 mmol/L (98-107); Creatinine, Serum 1.06 mg/dL (0.70-1.30); EST Glomerular Filtration Rate 74 mL/min (>60); Est Glom Filt Rate - Afr Amer 89 mL/min (>60); Estimated Creatinine Clearance 81.59 ml/min; Glucose 264 mg/dL (74-106); Lipase 78 U/L (13-75); Potassium 3.7 mmol/L (3.5-5.1); Protein, Total 6.9 g/dL (6.4-8.2); Sodium Level 136 mmol/L (136-145)
[2024-01-03 22:04] LABS: Platelet Estimate ADEQUATE (ADEQ)
[2024-01-03 22:05] LABS: Anisocytosis RARE; Red Cell Morphology NORM C+C NORMAL (NORM C&C)
[2024-01-03 22:31] LABS: Bacteria 0 SEEN /hpf (None Seen); Mucous, Urine 0 SEEN /hpf (<or=2+)
[2024-01-03 22:32] LABS: Color, Urine Yellow (Yellow); Glucose, Dipstick 50 mg/dl (Normal); Ketone-Dipstick Negative (Negative); Leukocyte Esterase-Dipstick 25 /ul (Negative); Nitrite-Dipstick Negative (Negative); Occult Blood-Urine 10 /ul (Negative); Protein-Dipstick Negative (Negative); Urine Bilirubin Dipstick Negative (Negative); Urine Clarity Clear (Clear); Urine Urobilinogen 1 mg/dl (Normal); Urine pH 6.5 (5.0 - 8.0)
[2024-01-03 22:48] LABS: Red Blood Cells-Urine 0-5 SEEN /hpf (0-5); Squamous Epithelial Cells - UA 0-5 SEEN /hpf (0-5); White Blood Cells 0-5 SEEN /hpf (0-5)
== END 2024-01-04 00:36 | disposition home or self-care (01) ==
PROVIDERS: Emergency Provider Emergency Medicine; PCP Family Medicine; Visit Provider Emergency Medicine
DX: R53.1 Weakness (principal); I69.354 Hemiplegia and hemiparesis following cerebral infarction affecting left non-dominant side; J44.9 Chronic obstructive pulmonary disease, unspecified; E11.9 Type 2 diabetes mellitus without complications; R10.9 Unspecified abdominal pain; R11.2 Nausea with vomiting, unspecified; R79.89 Other specified abnormal findings of blood chemistry; Z87.440 Personal history of urinary (tract) infections; K21.9 Gastro-esophageal reflux disease without esophagitis; F17.200 Nicotine dependence, unspecified, uncomplicated
CPT/HCPCS: 71045; 80053; 81001; 83690; 85025; 87086; 87631; 93005; 96361; 96374; 99283; J7030; A4216; J2405

== ENCOUNTER 2024-01-05 12:09 | Inpatient (IN) | payer MEDICARE, OTHER, SELFPAY ==
[2024-01-05] VITALS (8 sets, daily range): BP systolic 114–146; BP diastolic 67–81; PULSE 65–87; RESP 14–20; TEMP 36.2–36.8; O2SAT 93–98; BMI 28.3
--- NOTE | 2024-01-05 12:23 | EDS_ITS ---
HPI History of Present Illness Chief Complaint: Abd Pain Detail of Chief Complaint: Nausea, anorexia, dark-colored urine Informant: patient and spouse/S.O. Onset/Context/Timing Onset: Today and Yesterday Context: Sudden Onset Timing: Continuous Quality: GI Location: Not applicable Current Severity: Mild Maximum Severity: Moderate Worsened by: Nothing Relieved by: Nothing Associated Symptoms Associated Symptoms: Per HPI narrative Narrative Narrative: Patient is a 68-year-old male who was seen on January 02Tuesday. He refused admission. He has history of choledocholithiasis with placement of stent, cholestatic hepatitis, type 2 diabetes, thalamic infarct. Who presents because of nausea, loss of appetite, generalized fatigue and weakness and dark-colored urine. He was unsure aware that his skin appears yellow. He has had jaundice in the past. He denies fever or chills. He had a 4 pound weight loss since Tuesday. He denies headache, visual, ocular auditory symptoms. He denies chest discomfort, dyspnea or [place] exertion. [place] PND or pedal edema. He presently denies abdominal pain. Denies vomiting, constipation diarrhea. Denies light-colored stool. Patient has not checked his blood sugar recently. He is on insulin. Prior similar symptoms: Yes Recent Illness/Hospitalization: Yes [facility] Medical History Common bile duct dilation COPD (chronic obstructive pulmonary disease) CPAP (continuous positive airway pressure) dependence Diabetes GERD (gastroesophageal reflux disease) History of diabetes mellitus History of multiple cerebrovascular accidents (CVAs) History of stroke Non-smoker Sleep apnea Slurred speech Stroke-like symptoms Stroke/cerebrovascular accident Home Medications insulin glargine 100 unit/mL (3 mL) subcutaneous pen (Lantus Solostar U-100 Insulin) 50 units subcut QHS DABETES 02/27/15 [History Last Taken 01/04/24] insulin lispro 100 unit/mL subcutaneous pen (Humalog KwikPen (U-100) Insulin) 22 unit subcut TID DIABETES 02/27/15 [History Last Taken 01/04/24] fluticasone fur. 100 mcg-umeclid 62.5 mcg-vilant 25 mcg inhalat.powder (Trelegy Ellipta) 1 inh inhalation DAILY SHORTNESS OF BREATH/WHEEZING 10/16/23 [History Last Taken 01/05/24] tamsulosin 0.4 mg capsule 0.4 mg PO BID PROSTATE 09/05/23 [History Last Taken 01/04/24] venlafaxine 150 mg capsule,extended release 24 hr 150 mg PO DAILY DEPRESSION 09/05/23 [History Last Taken 01/05/24] atorvastatin 80 mg tablet 80 mg PO QHS CHOLESTEROL #30 tabs 09/07/23 [Rx Last Taken 01/04/24] aspirin 81 mg chewable tablet 81 mg PO DAILY HEART HEALTH 11/02/23 [History Last Taken 01/04/24] finasteride 5 mg tablet 5 mg PO DAILY 01/05/24 [History Last Taken 01/05/24] oxybutynin chloride 10 mg tablet,extended release 24 hr 10 mg PO DAILY 01/05/24 [History Last Taken 01/05/24] Allergy/AdvReac Type Severity Reaction Status Date / Time Penicillins Allergy Intermediate Hives Verified 01/05/24 12:09 Family History Other Alzheimer disease Breast cancer Thyroid cancer Surgical History History of ear surgery Social History household members: spouse housing: house Smoking Status: Light Smoker (<10/day) Tobacco: How many years used: 50 how long ago did patient quit smoking: alcohol intake: never substance use type: does not use ROS ROS ED Constitutional Constitutional ED: Reports weight loss; Denies chills, fever(s), subjective or sweats Eyes Eyes: Denies change in vision or diplopia ENT ENT ED: Denies ear pain, rhinorrhea or sore throat Cardiovascular Cardiovascular: Denies chest pain, orthopnea, palpitations, paroxysmal nocturnal dyspnea or racing heartbeat Respiratory/Chest Respiratory/Chest: Denies cough, dyspnea, dyspnea on exertion, orthopnea or paroxysmal nocturnal dyspnea Gastrointestinal Gastrointestinal: Reports abdominal pain and nausea; Denies constipation, di arrhea, melena or vomiting Genitourinary Genitourinary ED: Denies dysuria, hematuria or urinary frequency Musculoskeletal Musculoskeletal: Denies arthralgias, back pain or myalgias Integumentary Denies rash Neurologic Neurologic: Reports weakness; Denies headache(s) or paresthesias Endocrine Endocrinology: Denies cold intolerance or heat intolerance Hematologic/Lymphatic Hematologic/Lymphatic: Reports systems reviewed and no addt'l complaints, except as documented EXAM Physical Exam Const Vital Signs: 01/05/24 12:10 01/05/24 12:51 Temperature 97.1 F L Temperature Source Temporal Pulse Rate 87 74 Respiratory Rate 16 14 Blood Pressure 114/81 H 144/71 H Blood Pressure Mean 92 95 Pulse Ox 93 95 Positive well nourished and well developed Constitutional Narrative: Patient does not appear well. He appears jaundiced. General Appearance ED: well developed and NAD; Negative for pallor HEENT Reports dry mucous membranes HEENT Narrative: Head is atraumatic and normocephalic. Ears normal. Nares patent. Posterior pharynx is normal. Mouth ED: Yes dry mucous membranes Mouth: dry mucous membranes Eyes PERRL and EOMs intact bilaterally General Eye ED: Yes scleral icterus; Negative for pale conjunctiva Neck no lymphadenopathy, supple and no JVD Resp normal respiratory effort and clear to auscultation bilaterally Cardio regular rate, regular rhythm, S1 normal heart sound, S2 normal heart sound and no murmurs GI normal to inspection, nondistended, normoactive bowel sounds, non-tender, non- distended and no masses; Negative for hepatosplenomegaly Back/Spine no CVA tenderness Extremity normal to inspection General Extremety ED: Negative for edema or tenderness General Extremity: Negative for edema Neuro oriented x3 and CN's II-XII intact bilaterally Sensorium / Orientation: alert Motor Exam: strength 5/5 throughout Psych mental status grossly normal Skin no rashes or lesions noted, no wounds and No skin turgor normal General Skin Exam: jaundice; Negative for pallor MDM MDM MDM Narrative Medical decision making narrative: Patient had elevated transaminases on Tuesday. His bilirubin was not significantly elevated. He appears jaundiced today. Will obtain hepatic profile and lipase. Will also obtain CBC and electrolyte panel. Clinically patient appears dehydrated will administer bolus of normal saline. Once labs have returned we will contact Dr. Hannon. History & Record Review Additional record(s) reviewed:: Prior ED visit and Prior labs Lab Data Labs: Laboratory Results - last 24 hr 01/05/24 12:35 WBC 9.1 RBC 4.91 Hgb 13.7 Hct 42.3 MCV 86.2 MCH 27.9 MCHC 32.4 RDW Std Deviation 50.2 H RDW Coeff of [place] 16.0 H Plt Count 275 MPV 12.0 Immature Gran % (Auto) 0.400 Neut % (Auto) 79.0 H Lymph % (Auto) 11.1 L [place] % (Auto) 6.7 Eos % (Auto) 2.5 Baso % (Auto) 0.3 Absolute Neuts (auto) 7.2 Absolute Lymphs (auto) 1.01 Nucleated RBC % 0 Sodium 138 Potassium 3.9 Chloride 105 Carbon Dioxide 27.0 Anion Gap 6 BUN 13 Creatinine 1.14 Estim Creat Clear Calc 75.16 Est GFR (MDRD) Af Amer 82 Est GFR (MDRD) Non-Af 68 BUN/Creatinine Ratio 11.4 Glucose 153 H Calcium 8.8 Total Bilirubin 2.90 H Direct Bilirubin 1.79 H AST 151 H ALT 255 H Alkaline Phosphatase 282 H Total Protein 6.9 Albumin 2.8 L Globulin 4.1 Lipase 63 Management Discussion w/another healthcare provider: Hospitalist (Dr. Ana Montalvo was paged.) and Party Supply Specialist (Spoke with Dr. Hannon. He was aware of patient. He would like patient admitted. He will see in consultation and requested no further testing.) Discharge Plan Triage Chief Complaint: Abd Pain ED Provider: BartMatteo Dx/Rx/DC Orders Clinical Impression: Abdominal discomfort, Diabetes mellitus type 2 in nonobese, Gastroparesis, Jaundice, Elevated liver transaminase level, Unintentional weight loss of 1-2% body weight within 1 week Prescriptions: No Action insulin lispro [Humalog KwikPen Insulin] 100 UNIT/ML insulin pen 22 unit subcut TID insulin glargine [Lantus Solostar U-100 Insulin] 100 UNITS/ML insulin pen 50 units subcut QHS Trelegy Ellipta 100-62.5-25 mcg blister with device 1 inh INHALATION DAILY tamsulosin 0.4 mg capsule 0.4 mg PO BID venlafaxine 150 mg capsule,extended release 24hr 150 mg PO DAILY atorvastatin 80 mg Tablet 80 mg PO QHS Qty: 30 2RF aspirin 81 MG tablet,chewable 81 mg PO DAILY finasteride 5 mg tablet 5 mg PO DAILY Patient Comments: TAKE 1 TABLET BY MOUTH EVERY DAY oxybutynin chloride 10 mg tablet extended release 24hr 10 mg PO DAILY Patient Comments: TAKE 1 TABLET BY MOUTH DAILY Primary Care Provider: Tommy Markham Referrals: Tommy Markham MD [Primary Care Provider] - Disposition Disposition: Acute Care Hospital [facility]
[2024-01-05] MEDS: 0.9% Normal Saline (1000mL) 1,000 ML 1000 ML IV (12:51)
[2024-01-05 12:54] LABS: Absolute Lymphocyte Count 1.01 X10^3/uL (0.83-4.51); Absolute Neutrophil Count 7.2 X10^3/uL (2.0-7.7); Basophil# 0.03 X10^3/uL; Basophil% 0.3 % (0-1); Eosinophil# 0.23 X10^3/uL; Eosinophils% 2.5 % (0-5); Hematocrit 42.3 % (40-54); Hemoglobin 13.7 g/dL (13.0-16.5); Lymphocyte # 1.01 X10^3/ul (0.83-4.51); Lymphocyte % 11.1 % (19-41); Mean Corp Hgb Conc 32.4 g/dL (32-36); Mean Corpuscular Hgb 27.9 pg (27.0-32.0); Mean Corpuscular Volume 86.2 fL (80-94); Monocyte# 0.61 X10^3/uL; Monocyte% 6.7 % (0-10); NRBC Flagged by Analyzer 0 % (0-5); Platelet Count 275 K/mm3 (150-450); RBC Distribution Width SD 50.2 fl (35.1-43.9); Red Blood Count 4.91 M/mm3 (4.6-6.2); White Blood Count 9.1 K/mm3 (4.4-11.0)
[2024-01-05 13:37] LABS: AST(SGOT) 151 U/L (15-37); Alanine Aminotransfer ALT/SGPT 255 U/L (16-61); Albumin, Serum 2.8 g/dL (3.2-5.0); Alkaline Phosphatase 282 U/L (45-117); Anion Gap 6 (5-15); BUN 13 mg/dL (7-18); BUN/Creat Ratio 11.4 RATIO (10-20); Bilirubin, Direct 1.79 mg/dL (0.00-0.30); Calcium,Total 8.8 mg/dL (8.5-10.1); Chloride 105 mmol/L (98-107); Creatinine, Serum 1.14 mg/dL (0.70-1.30); EST Glomerular Filtration Rate 68 mL/min (>60); Est Glom Filt Rate - Afr Amer 82 mL/min (>60); Estimated Creatinine Clearance 75.16 ml/min; Globulin 4.1 g/dL (2.2-4.2); Glucose 153 mg/dL (74-106); Lipase 63 U/L (13-75); Potassium 3.9 mmol/L (3.5-5.1); Protein, Total 6.9 g/dL (6.4-8.2); Sodium Level 138 mmol/L (136-145)
[2024-01-05 14:28] LABS: Bacteria 0 SEEN /hpf (None Seen); Mucous, Urine 0 SEEN /hpf (<or=2+); Red Blood Cells-Urine 0 SEEN /hpf (0-5); Squamous Epithelial Cells - UA 0 SEEN /hpf (0-5); White Blood Cells 0 SEEN /hpf (0-5)
--- NOTE | 2024-01-05 14:30 | CT_ITS ---
STUDY: CT ABDOMEN AND PELVIS WITH CONTRAST REASON FOR EXAM: Male, 68 years old. Obstructive jaundice. Cholelithiasis and stent. RADIATION DOSAGE (If Supplied By Facility): CTDIvol = ( 17.97 ) mGy, DLP = ( 1225.53 ) mGycm TECHNIQUE: Transaxial images were obtained from the dome of the diaphragm to the symphysis pubis without oral contrast. IV 100mL Isovue-[id number] was administered. Sagittal and coronal images were reconstructed. Individualized dose optimization techniques were used for this CT. COMPARISON: Comparison is made with prior study dated November 04, 2023. FINDINGS: Mild increased markings at the lung bases suggestive of mild linear scarring with mild atelectasis. Coronary artery calcification. There is decreased attenuation of the liver consistent with steatosis. Minimally thickened gallbladder wall. A stent is seen within the common bile duct. Small amount of air is seen in the central intrahepatic biliary ducts secondary to the placement of the stent. Normal spleen. There is a 1.4 cm cystic structure in the neck of the pancreas. This is unchanged. There is a small, circumscribed, smooth, low attenuation right adrenal mass, consistent with an adrenal adenoma. This measures 8.2 mm. Is also a 6.9 mm hypodensity in the medial aspect of the left adrenal gland suggestive of a small adenoma. Normal right kidney. Normal left kidney. Normal visualized stomach. Normal small intestine. Normal colon. The appendix is visualized and appears normal. There is diffuse atherosclerotic calcification of the abdominal aorta, without a demonstrated aneurysm. Normal inferior vena cava. Normal retroperitoneum. Normal urinary bladder. Heterogeneous enlargement of the prostate gland with indentation at the bladder base. The prostate measures 5.3 cm x 6.5 cm. Normal abdominal wall. Normal osseous structures. CT/Abdomen/Pelvis W IV Cont ONLY IMPRESSION: Diffuse fatty attrition of the liver. A biliary stent is seen within the common bile duct with a small amount of air in the central intrahepatic biliary ducts. There is evidence of a 1.4 cm cystic nodule in the neck of the pancreas. This is unchanged. The pancreatic duct measures upper limits of normal. Minimal thickening of the gallbladder wall. Heterogeneous enlargement of the prostate with indentation of the bladder base. Electronically Signed: Juan Jean MD at 15:00 EST ,
[2024-01-05 14:34] LABS: Color, Urine Yellow (Yellow); Glucose, Dipstick Normal (Normal); Ketone-Dipstick 5 mg/dl (Negative); Leukocyte Esterase-Dipstick Negative /ul (Negative); Nitrite-Dipstick Negative (Negative); Occult Blood-Urine 10 /ul (Negative); Protein-Dipstick Negative (Negative); Specific Gravity, Urine 1.015 (1.002-1.030); Urine Bilirubin Dipstick Negative (Negative); Urine Clarity Clear (Clear); Urine Urobilinogen 1 mg/dl (Normal)
--- NOTE | 2024-01-05 15:22 | PCM.HP.STD ---
HPI - General General Date of Admission: 01/05/24 Date of Service: 01/05/24 Chief Complaint: Abdominal pain/nausea/vomiting HPI Narrative OLGA RODRIGUEZ, is a 68 M who presented to the emergency department at [facility] on 01/05/2024 with abdominal pain, nausea, and vomiting. Patient has history of choledocholithiasis and was seen here in October 2023 at which time he required ERCP with stent placement for choledocholithiasis. His symptoms improved dramatically and he has been following with gastroenterology. Had a visit on 12/01/2023 and was doing well. Recommendations at that time a repeat ERCP with stent removal and spyglass with biopsies of the distal common bile duct, and gastric emptying study and sits marker test for chronic idiopathic constipation. His reports that he completed the sits marker test and the gastric emptying study. Per records it is noted that his gastric emptying study was done on 12/08/2023. His reports that about a day later he developed profuse violent vomiting and abdominal pain that lasted about 24 to 48 hours and then resolved. He was not evaluated in the emergency department at that time. He had done well after that and has not yet had his repeat ERCP but 2 nights ago on 01/03/2024 he developed abdominal pain that is somewhat different from his previous abdominal pain that he had in November along with profuse nausea and vomiting and presented to the emergency department but refused admission. At that time he was noted to have a total bilirubin of 1.4 with an AST of 391 and an ALT of 294 and an alk phos of 328. He refused admission at that time. He went home and did okay for about 24 hours but then started with worsening abdominal pain and some nausea with 1 episode of vomiting today. His does report he had some confusion with the events on the but this has since resolved. He does still have his gallbladder. Vital signs on admission show temperature of 97.1, heart rate of 87, blood pressure of 114/81, respiratory was 16 oxygen saturations were 93 to 95% on room air. His CBC is unremarkable but he does have a left shift with a 79% neutrophilia. His chemistry panel shows normal electrolytes and renal function. His glucose is elevated at 153 but he is a known diabetic. His total bilirubin has gone up to 2.90 and his direct bilirubin is 1.79. His AST and ALT are mildly better with an AST of 151 and ALT of 255. His alk phos is 282. Lipase is normal at 63. His UA has some mild ketones but is not consistent with infection. A CT of the abdomen pelvis was performed and shows diffuse fatty liver infiltration, biliary stent in the common bile duct with a small amount of air in the central intrahepatic biliary ducts, evidence of a 1.4 cm cystic nodule in the neck of the pancreas but is unchanged from previous and minimal thickening of the gallbladder wall as well as heterogeneous enlargement of the prostate with indentation of the bladder base. I was able to discuss the case with Dr. Hannon after we got the CT read and he would like me to proceed with an MRCP and will likely do an ERCP tomorrow. We will start antibiotics with Levaquin. [facility] Medical History Common bile duct dilation COPD (chronic obstructive pulmonary disease) CPAP (continuous positive airway pressure) dependence Diabetes GERD (gastroesophageal reflux disease) History of diabetes mellitus History of multiple cerebrovascular accidents (CVAs) History of stroke Non-smoker Sleep apnea Slurred speech Stroke-like symptoms Stroke/cerebrovascular accident Home Medications insulin glargine 100 unit/mL (3 mL) subcutaneous pen (Lantus Solostar U-100 Insulin) 50 units subcut QHS DABETES 02/27/15 [History Last Taken 01/04/24] insulin lispro 100 unit/mL subcutaneous pen (Humalog KwikPen (U-100) Insulin) 22 unit subcut TID DIABETES 02/27/15 [History Last Taken 01/04/24] fluticasone fur. 100 mcg-umeclid 62.5 mcg-vilant 25 mcg inhalat.powder (Trelegy Ellipta) 1 inh inhalation DAILY SHORTNESS OF BREATH/WHEEZING 09/05/23 [History Last Taken 01/05/24] tamsulosin 0.4 mg capsule 0.4 mg PO BID PROSTATE 09/05/23 [History Last Taken 01/04/24] venlafaxine 150 mg capsule,extended release 24 hr 150 mg PO DAILY DEPRESSION 09/05/23 [History Last Taken 01/05/24] atorvastatin 80 mg tablet 80 mg PO QHS CHOLESTEROL #30 tabs 09/07/23 [Rx Last Taken 01/04/24] aspirin 81 mg chewable tablet 81 mg PO DAILY HEART HEALTH 11/02/23 [History Last Taken 01/04/24] finasteride 5 mg tablet 5 mg PO DAILY 01/05/24 [History Last Taken 01/05/24] oxybutynin chloride 10 mg tablet,extended release 24 hr 10 mg PO DAILY 01/05/24 [History Last Taken 01/05/24] Allergy/AdvReac Type Severity Reaction Status Date / Time Penicillins Allergy Intermediate Hives Verified 01/05/24 12:09 Family History Other Alzheimer disease Breast cancer Thyroid cancer Surgical History History of ear surgery Social History household members: spouse housing: house Smoking Status: Light Smoker (<10/day) Tobacco: How many years used: 50 how long ago did patient quit smoking: alcohol intake: never substance use type: does not use ROS Constitutional Constitutional: Reports anorexia, fatigue, malaise and weakness; Denies change in weight, chills, fever(s), night sweats or other Eyes Eyes: Denies blurry vision, change in eye color, change in vision, discharge from eye(s), double vision, erythema, eye pain, loss of vision or other ENT HEENT: Reports abnormal hearing and hearing loss; Denies dysphagia, ear pain, epistaxis, nasal congestion, nasal discharge, post nasal drip, sinus pressure, sore throat or other Cardiovascular Cardiovascular: Denies chest pain, claudication, dyspnea on exertion, edema, lightheadedness, orthopnea, palpitations, paroxysmal nocturnal dyspnea, rapid heart rate, syncope or other Respiratory/Chest Respiratory/Chest: Denies cough, dyspnea, excessive phlegm production, hemoptysis, productive cough, shortness of breath at rest, shortness of breath with exertion, wheezing or other Gastrointestinal Gastrointestinal: Reports abdominal pain, constipation, nausea and vomiting; Denies coffee ground emesis, diarrhea, dyspepsia, hematemesis, hematochezia, loose stools, melena or other Genitourinary Genitourinary: Reports difficulty urinating, nocturia and urinary hesitancy; Denies burning urination, dysuria, hematuria, urinary frequency, urinary incontinence, urinary urgency or other Musculoskeletal Musculoskeletal: Denies arthralgias, back pain, joint pain, joint stiffness, joint swelling, myalgias, neck pain or other Neurologic Neurologic: Denies abnormal gait, abnormal speech, confusion, disequilibrium, dizziness, focal weakness, headache(s), numbness, paresthesias, seizure-like activity, seizures, syncope, tingling, tremor(s) or other Psychiatric Psychiatric: Reports anxiety and depression; Denies homicidal ideation, suicidal ideation or other Endocrine Endocrinology: Denies change in body appearance, cold intolerance, excessive sweating, heat intolerance, polydipsia, polyuria or other Hematologic/Lymphatic Hematologic/Lymphatic: Denies anemia, easy bleeding, easy bruising, lymphadenopathy or other Allergic/Immunologic Allergic/Immunologic: Denies rhinitis, hives, eczemia, asthma or other Vital Signs Vital Signs Vital Signs: 01/05/24 12:10 01/05/24 12:51 Temperature 97.1 F L Temperature Source Temporal Pulse Rate 87 74 Respiratory Rate 16 14 Blood Pressure 114/81 H 144/71 H Blood Pressure Mean 92 95 Pulse Ox 93 95 Weight Weight: 97.386 kg Body Mass Index (BMI) 28.3 Physical Exam Const alert, oriented x3, no apparent distress and well nourished; Negative for average body habitus or healthy appearing Constitutional Narrative: Overweight, upper middle-aged, white male, sitting up in bed, currently appears comfortable, nontoxic, at bedside, patient does appear that he does not feel 100% General Appearance: cooperative HEENT normocephalic, head/scalp atraumatic and moist oral mucous membranes; Negative for hearing grossly normal bilaterally HEENT Narrative: Mild hearing loss, Mallampati 3, no thrush Eyes PERRL, EOMs intact bilaterally and conjunctivae normal Eyes Narrative: Mild scleral icterus Neck no lymphadenopathy and supple Neck Narrative: Trachea midline, no thyroid enlargement Resp normal respiratory effort, no retractions, no use of accessory muscles and clear to auscultation bilaterally Resp Narrative: Diffusely diminished but clear Auscultation: Negative for rales, rhonchi or wheezes Cardio regular rate, regular rhythm, S1 normal heart sound, S2 normal heart sound, no murmurs, no rub, no gallops and no clicks GI normal to inspection, nondistended, normoactive bowel sounds and soft to palpation; Negative for non-tender GI Narrative: Tenderness in the central abdomen just inferior to the epigastric region, no significant tenderness in the right upper quadrant or epigastric area Extremity no clubbing, cyanosis or edema Extremity Narrative: Pedal pulses are 2+, radial pulses are 2+ Neuro oriented x3 and moves all extremities Neuro Narrative: Minimal left-sided weakness noted Speech: speech normal Psych affect normal Psych Narrative: Interacts appropriately, eye contact is good, patient is pleasant Results Lab / Micro Data 01/05/24 12:35 01/05/24 12:35 Labs: Laboratory Results - last 24 hr 01/05/24 12:35: WBC 9.1, RBC 4.91, Hgb 13.7, Hct 42.3, MCV 86.2, MCH 27.9, MCHC 32.4, RDW Std Deviation 50.2 H, RDW Coeff of [place] 16.0 H, Plt Count 275, MPV 12.0, Immature Gran % (Auto) 0.400, Neut % (Auto) 79.0 H, Lymph % (Auto) 11.1 L, [place] % (Auto) 6.7, Eos % (Auto) 2.5, Baso % (Auto) 0.3, Absolute Neuts (auto) 7.2, Absolute Lymphs (auto) 1.01, Nucleated RBC % 0, Sodium 138, Potassium 3.9, Chloride 105, Carbon Dioxide 27.0, Anion Gap 6, BUN 13, Creatinine 1.14, Estim Creat Clear Calc 75.16, Est GFR (MDRD) Af Amer 82, Est GFR (MDRD) Non-Af 68, BUN/Creatinine Ratio 11.4, Glucose 153 H, Calcium 8.8, Total Bilirubin 2.90 H, Direct Bilirubin 1.79 H, AST 151 H, ALT 255 H, Alkaline Phosphatase 282 H, Total Protein 6.9, Albumin 2.8 L, Globulin 4.1, Lipase 63 01/05/24 14:20: Urine Color Yellow, Urine Clarity Clear, Urine pH 7.0, Ur Specific [place] 1.015, Urine Protein Negative, Urine Glucose (UA) Normal, Urine Ketones 5 H, Urine Occult Blood 10 H, Urine Nitrite Negative, Urine Bilirubin Negative, Urine Urobilinogen 1 H, Ur Leukocyte Esterase Negative, Urine RBC 0 SEEN, Urine WBC 0 SEEN, Ur Squamous Epith Cells 0 SEEN, Urine Bacteria 0 SEEN, Urine Mucus 0 SEEN Imaging Radiology Impression Abdomen/Pelvis CT 01/05/24 14:30 IMPRESSION: Diffuse fatty attrition of the liver. A biliary stent is seen within the common bile duct with a small amount of air in the central intrahepatic biliary ducts. There is evidence of a 1.4 cm cystic nodule in the neck of the pancreas. This is unchanged. The pancreatic duct measures upper limits of normal. Minimal thickening of the gallbladder wall. Heterogeneous enlargement of the prostate with indentation of the bladder base. Electronically Signed: Juan Jean MD at 15:00 EST , Assessment & Plan Assessment/Plan (1) Elevated liver transaminase level: (2) Jaundice: (3) Abdominal discomfort: (4) Nausea & vomiting: (5) Generalized weakness: PLAN: Plan Transaminitis/elevated alk phos/hyperbilirubinemia/abdominal pain/nausea/vomiting -Patient with choledocholithiasis status post ERCP and biliary stent placement and sphincterotomy with stone removal in October 2023 -CT of the abdomen pelvis does not show any current biliary duct dilation and stent is in place however I am concerned that he may be passing stones intermittently -Bilirubin is worse but transaminases are slightly improved so I am suspecting that he may have passed a stone -Repeat MRCP -Likely ERCP tomorrow -Hold aspirin for now -Clear liquid diet for now and n.p.o. after midnight -With biliary stent placement and plan for intervention will start Levaquin due to penicillin allergy -Repeat lab in a.m. -IV fluids at 75 cc/h with LR -Gastroenterology consultation-Case was discussed with Dr. Hannon Gastroparesis -Patient had a abnormal gastric emptying study performed on 12/08/2023 -Patient has follow-up with GI for this -Currently not on any Reglan or other medications to address -Likely related to his longstanding diabetes -GI is consulted will await recommendations History of dysphagia -Patient is following with outpatient speech therapy -Current recommend diet is soft with thin liquids per most recent documentation on 10/25/2023 -Will continue this diet for now -Speech therapy is following Generalized weakness -Anticipate related to acute illness -PT/OT -Case management/social work consultation for discharge planning History of stroke -Continue risk factor modification -Aspirin on hold for now for possible intervention -Restart aspirin when okay with GI Hyperlipidemia -Continue home atorvastatin DM-2 -Continue home basal and prandial insulin -Will reduce basal insulin dose tonight to 30 units due to n.p.o. status after midnight -SSI -Accu-Cheks as ordered -Last hemoglobin A1c was 8.6 on 11/04/2023 GERD -Patient is currently not on any PPI BPH with obstruction -Continue home Flomax -Continue home finasteride -Continue home oxybutynin History of COPD -Continue home inhalers Depression -Continue home venlafaxine CALLI -Continue home CPAP DVT prophylaxis -Lovenox subcu 40 mg daily CODE STATUS -DNR CCA okay for short-term intubation as verified with patient on presentation Charges/Coding Visit Charges Inpatient E&M: 37808 Init Hosp L2
--- NOTE | 2024-01-05 16:03 | MRI_ITS ---
EXAM: MR ABDOMEN WITHOUT INTRAVENOUS CONTRAST, MRCP PROTOCOL CLINICAL INDICATION: Transaminitis with history of choledocholithiasis TECHNIQUE: Multiplanar and multisequence MR images of the abdomen without intravenous contrast obtained with MRCP sequence. Three-dimensional post-processing reconstructions were performed. COMPARISON: CT scan of the abdomen and pelvis 01/05/2024 2:43 PM. MRCP 11/04/2023. FINDINGS: LOWER THORAX: Unremarkable. No pleural effusion. LIVER: Unremarkable. Normal morphology. GALLBLADDER AND BILE DUCTS: Unremarkable. No gallstones. No gallbladder distention or wall edema. Normal caliber intra and extrahepatic bile ducts. The known stents are difficult to visualize on the MR. PANCREAS: Unremarkable. No pancreatic duct dilatation. No change in the small cyst measuring up to 1.3 cm in the head of the pancreas. SPLEEN: Unremarkable. Non-enlarged. ADRENALS: Unremarkable. No nodules. KIDNEYS AND URETERS: Unremarkable. Normal renal size and position. No hydronephrosis. INTRAPERITONEAL SPACE: Unremarkable. No ascites or other fluid collection. VASCULATURE: Unremarkable. Abdominal aorta is non-dilated. LYMPH NODES: No enlarged lymph nodes. MRI/MRCP Abdomen without Contrast IMPRESSION: 1. No change in the small cyst measuring up to 1.3 cm in the head of the pancreas. Recommend a contrast-enhanced, pancreas-protocol abdominal CT or MR in 2 years. 2. No intra or extrahepatic biliary dilatation or pancreatic duct dilatation. The known stents are difficult to visualize on MR. Electronically Signed: Walter Watson MD at 0:25 EST ,
[2024-01-05 16:54] LABS: Bedside Glucose 108 mg/dL (74-106)
[2024-01-05] MEDS: Lactated Ringers 1,000 ML 75 ML IV (16:55)
[2024-01-05] MEDS: levoFLOXacin IV 750 MG/150 ML BAG 100 MG IV (16:56)
--- NOTE | 2024-01-05 17:08 | EX.PCM.CON.G ---
HPI Consult Data Date of Consult: 01/05/24 HPI Narrative Reason for Consultation: Abnormal LFTs HPI Narrative: OLGA RODRIGUEZ, is Sanjeev RODRIGUEZ, is a 68 M who presented to the emergency department at [facility] on 01/05/2024 with abdominal pain, nausea, and vomiting. Patient has history of choledocholithiasis and was seen here in October 2023 at which time he required ERCP with stent placement for choledocholithiasis. He Had an office visit on 12/01/2023 and was doing well. Recommendations at that time a repeat ERCP with stent removal and spyglass with biopsies of the distal common bile duct, and gastric emptying study and sits marker test for chronic idiopathic constipation. Per records it is noted that his gastric emptying study was done on 12/08/2023. His gastric emptying study had shown mild to moderate gastroparesis with a gastric emptying time of 68 minutes. His reports that about a day later he developed profuse violent vomiting and abdominal pain that lasted about 24 to 48 hours and then resolved. He was not evaluated in the emergency department at that time. He had done well after that and has not yet had his repeat ERCP but 2 nights ago on 01/03/2024 he developed abdominal pain that is somewhat different from his previous abdominal pain that he had in November along with profuse nausea and vomiting and presented to the emergency department but refused admission. At that time he was noted to have a total bilirubin of 1.4 with an AST of 391 and an ALT of 294 and an alk phos of 328. He refused admission at that time. He went home and did okay for about 24 hours but then started with worsening abdominal pain [facility] Medical History Common bile duct dilation COPD (chronic obstructive pulmonary disease) CPAP (continuous positive airway pressure) dependence Diabetes GERD (gastroesophageal reflux disease) History of diabetes mellitus History of multiple cerebrovascular accidents (CVAs) History of stroke Non-smoker Sleep apnea Slurred speech Stroke-like symptoms Stroke/cerebrovascular accident Home Medications insulin glargine 100 unit/mL (3 mL) subcutaneous pen (Lantus Solostar U-100 Insulin) 50 units subcut QHS DABETES 02/27/15 [History Last Taken 01/04/24] insulin lispro 100 unit/mL subcutaneous pen (Humalog KwikPen (U-100) Insulin) 22 unit subcut TID DIABETES 02/27/15 [History Last Taken 01/04/24] fluticasone fur. 100 mcg-umeclid 62.5 mcg-vilant 25 mcg inhalat.powder (Trelegy Ellipta) 1 inh inhalation DAILY SHORTNESS OF BREATH/WHEEZING 09/05/23 [History Last Taken 01/05/24] tamsulosin 0.4 mg capsule 0.4 mg PO BID PROSTATE 09/05/23 [History Last Taken 01/04/24] venlafaxine 150 mg capsule,extended release 24 hr 150 mg PO DAILY DEPRESSION 09/05/23 [History Last Taken 01/05/24] atorvastatin 80 mg tablet 80 mg PO QHS CHOLESTEROL #30 tabs 09/07/23 [Rx Last Taken 01/04/24] aspirin 81 mg chewable tablet 81 mg PO DAILY HEART HEALTH 11/02/23 [History Last Taken 01/04/24] finasteride 5 mg tablet 5 mg PO DAILY 01/05/24 [History Last Taken 01/05/24] oxybutynin chloride 10 mg tablet,extended release 24 hr 10 mg PO DAILY 01/05/24 [History Last Taken 01/05/24] Allergy/AdvReac Type Severity Reaction Status Date / Time Penicillins Allergy Intermediate Hives Verified 01/05/24 12:09 Family History Other Alzheimer disease Breast cancer Thyroid cancer Surgical History History of ear surgery Social History household members: spouse housing: house Smoking Status: Light Smoker (<10/day) Tobacco: How many years used: 50 how long ago did patient quit smoking: alcohol intake: never substance use type: does not use ROS Constitutional Constitutional: Reports anorexia, fatigue, malaise and weakness; Denies change in weight, chills, fever(s), night sweats or other Eyes Eyes: Denies blurry vision, change in eye color, change in vision, discharge from eye(s), double vision, erythema, eye pain, loss of vision or other ENT HEENT: Reports abnormal hearing and hearing loss; Denies dysphagia, ear pain, epistaxis, nasal congestion, nasal discharge, post nasal drip, sinus pressure, sore throat or other Cardiovascular Cardiovascular: Denies chest pain, claudication, dyspnea on exertion, edema, lightheadedness, orthopnea, palpitations, paroxysmal nocturnal dyspnea, rapid heart rate, syncope or other Respiratory/Chest Respiratory/Chest: Denies cough, dyspnea, excessive phlegm production, hemoptysis, productive cough, shortness of breath at rest, shortness of breath with exertion, wheezing or other Gastrointestinal Gastrointestinal: Reports abdominal pain, constipation, nausea and vomiting; Denies coffee ground emesis, diarrhea, dyspepsia, hematemesis, hematochezia, loose stools, melena or other Genitourinary Genitourinary: Reports difficulty urinating, nocturia and urinary hesitancy; Denies burning urination, dysuria, hematuria, urinary frequency, urinary incontinence, urinary urgency or other Musculoskeletal Musculoskeletal: Denies arthralgias, back pain, joint pain, joint stiffness, joint swelling, myalgias, neck pain or other Neurologic Neurologic: Denies abnormal gait, abnormal speech, confusion, disequilibrium, dizziness, focal weakness, headache(s), numbness, paresthesias, seizure-like activity, seizures, syncope, tingling, tremor(s) or other Psychiatric Psychiatric: Reports anxiety and depression; Denies homicidal ideation, suicidal ideation or other Endocrine Endocrinology: Denies change in body appearance, cold intolerance, excessive sweating, heat intolerance, polydipsia, polyuria or other Hematologic/Lymphatic Hematologic/Lymphatic: Denies anemia, easy bleeding, easy bruising, lymphadenopathy or other Allergic/Immunologic Allergic/Immunologic: Denies rhinitis, hives, eczemia, asthma or other Physical Exam Const alert, oriented x3, no apparent distress and well nourished; Negative for average body habitus or healthy appearing Constitutional Narrative: Overweight, upper middle-aged, white male, sitting up in bed, currently appears comfortable, nontoxic, at bedside, patient does appear that he does not feel 100% General Appearance: cooperative HEENT normocephalic, head/scalp atraumatic and moist oral mucous membranes; Negative for hearing grossly normal bilaterally HEENT Narrative: Mild hearing loss, Mallampati 3, no thrush Eyes PERRL, EOMs intact bilaterally and conjunctivae normal Eyes Narrative: Mild scleral icterus Neck no lymphadenopathy and supple Neck Narrative: Trachea midline, no thyroid enlargement Resp normal respiratory effort, no retractions, no use of accessory muscles and clear to auscultation bilaterally Resp Narrative: Diffusely diminished but clear Auscultation: Negative for rales, rhonchi or wheezes Cardio regular rate, regular rhythm, S1 normal heart sound, S2 normal heart sound, no murmurs, no rub, no gallops and no clicks GI normal to inspection, nondistended, normoactive bowel sounds and soft to palpation; Negative for non-tender GI Narrative: Tenderness in the central abdomen just inferior to the epigastric region, no significant tenderness in the right upper quadrant or epigastric area Extremity no clubbing, cyanosis or edema Extremity Narrative: Pedal pulses are 2+, radial pulses are 2+ Neuro oriented x3 and moves all extremities Neuro Narrative: Minimal left-sided weakness noted Speech: speech normal Psych affect normal Psych Narrative: Interacts appropriately, eye contact is good, patient is pleasant Lab / Micro Data 01/05/24 12:35 01/05/24 12:35 Labs: Laboratory Results - last 24 hr 01/05/24 12:35: WBC 9.1, RBC 4.91, Hgb 13.7, Hct 42.3, MCV 86.2, MCH 27.9, MCHC 32.4, RDW Std Deviation 50.2 H, RDW Coeff of [place] 16.0 H, Plt Count 275, MPV 12.0, Immature Gran % (Auto) 0.400, Neut % (Auto) 79.0 H, Lymph % (Auto) 11.1 L, [place] % (Auto) 6.7, Eos % (Auto) 2.5, Baso % (Auto) 0.3, Absolute Neuts (auto) 7.2, Absolute Lymphs (auto) 1.01, Nucleated RBC % 0, Sodium 138, Potassium 3.9, Chloride 105, Carbon Dioxide 27.0, Anion Gap 6, BUN 13, Creatinine 1.14, Estim Creat Clear Calc 75.16, Est GFR (MDRD) Af Amer 82, Est GFR (MDRD) Non-Af 68, BUN/Creatinine Ratio 11.4, Glucose 153 H, Calcium 8.8, Total Bilirubin 2.90 H, Direct Bilirubin 1.79 H, AST 151 H, ALT 255 H, Alkaline Phosphatase 282 H, Total Protein 6.9, Albumin 2.8 L, Globulin 4.1, Lipase 63 01/05/24 14:20: Urine Color Yellow, Urine Clarity Clear, Urine pH 7.0, Ur Specific Peck 1.015, Urine Protein Negative, Urine Glucose (UA) Normal, Urine Ketones 5 H, Urine Occult Blood 10 H, Urine Nitrite Negative, Urine Bilirubin Negative, Urine Urobilinogen 1 H, Ur Leukocyte Esterase Negative, Urine RBC 0 SEEN, Urine WBC 0 SEEN, Ur Squamous Epith Cells 0 SEEN, Urine Bacteria 0 SEEN, Urine Mucus 0 SEEN 01/05/24 16:34: POC Glucose 108 H Imaging Radiology Impression Abdomen/Pelvis CT 01/05/24 14:30 IMPRESSION: Diffuse fatty attrition of the liver. A biliary stent is seen within the common bile duct with a small amount of air in the central intrahepatic biliary ducts. There is evidence of a 1.4 cm cystic nodule in the neck of the pancreas. This is unchanged. The pancreatic duct measures upper limits of normal. Minimal thickening of the gallbladder wall. Heterogeneous enlargement of the prostate with indentation of the bladder base. Electronically Signed: Juan Jean MD at 15:00 EST , Assessment & Plan Assessment/Plan (1) Common bile duct dilation: (2) Hyperbilirubinemia: (3) Elevated alkaline phosphatase level: (4) Transaminitis: PLAN: 68-year-old gentleman with past medical history of diabetes, gastroparesis, carotid stenosis who presents with worsening abdominal pain. The likely differential diagnosis for him would be recurrent choledocholithiasis in the setting of patient has a biliary stent and a gallbladder. Plan is for ERCP with stent removal or exchange tomorrow. Keep n.p.o. past midnight. MRCP tonight. Charges/Coding Visit Charges Inpatient E&M: 69695 Init Hosp L3
[2024-01-05] MEDS: 0.9% Saline Lock 10 ML Syringe IV ×2 (17:14→23:16)
--- OUTSIDE RECORDS SUMMARY | 2024-01-05 19:01 | XMS RPT_ITS | CCD ---
Author Name Unknown Address [address] [place] [address] Organization [facility] Care Team Providers Care Channel Account Manager Name Role Phone Shahrzad LAMBERT, Lia Babin Primary Care Provider Lia Markham MD Primary Care Provider [phone] Carly Banks MD Unavailable CARLY BANKS Referring Unavailable ANDRES DOTSON Attending [...] metFORMIN; Translations: [METFORMIN] Drug Allergy 06-29-2011 Diarrhea [facility] Work Phone: (5 sources) Penicillins; Translations: [PENICILLINS] Propensity to adverse reactions 07-15-2005 [facility] Work Phone: (20 sources) Penicillins Propensity to adverse reactions 07-15-2005 [facility] Work Phone: Medications Current Medications Medication Drug [...] dribbling] Chronic Genitourinary symptoms and ill-defined conditions (5 sources) Other abnormal findings in urine; Translations: [...] 08-16-2006 08-16-2006 Episodic Diabetes mellitus without complication (19 sources) Hyperglycemia; Translations: [Hyperglycemia, unspecified] Onset: 09-05-2023 09-05-2023 Episodic Other and unspecified benign neoplasm (20 sources) History of polyp of colon; Translations: [Personal history of colonic polyps] Onset: 08-21-2020 08-21-2020 Episodic Other circulatory disease (16 sources) History of cerebrovascular accident; Translations: [Personal [...] 182.2 cm Lia Markham MD Work Phone: [facility] 10-05-2023 11:42-0500 Body weight 102.88 kg Lia Markham MD Work Phone: [facility] 10-05-2023 11:42-0500 Diastolic blood pressure 66 mm[Hg] Lia Markham MD Work Phone: [facility] 10-05-2023 11:42-0500 Heart rate 96 /min Lia Markham MD Work Phone: [facility] 10-05-2023 11:42-0500 Systolic blood pressure 102 mm[Hg] Lia Markham MD Work Phone: [facility] 09-20-2023 10:36-0400 Body weight 102.06 kg Andres [place] 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 Work Phone: [facility] 09-20-2023 10:36-0400 Diastolic blood pressure 82 mm[Hg] Andres [place] 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 Work Phone: [facility] 09-20-2023 10:36-0400 Heart rate 100 /min Nadres [place] 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 Work Phone: [facility] 09-20-2023 10:36-0400 SaO2% (BldA) [Mass fraction] 96 % Andres [place] 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 Work Phone: [facility] 09-20-2023 10:36-0400 Systolic blood pressure 144 mm[Hg] Andres [place] 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 Work Phone: [facility] 09-15-2023 13:24-0400 Body height 182.2 cm Yoly Ornelas PA-C Work Phone: [facility] 09-15-2023 13:24-0400 Body weight 104.78 kg Yoly Ornelas PA-C Work Phone: [facility] 09-15-2023 13:24-0400 Diastolic blood pressure 74 mm[Hg] Yoly Ornelas PA-C Work Phone: [facility] 09-15-2023 13:24-0400 Heart rate 78 /min Yoly Ilya PA-C Work Phone: [facility] 09-15-2023 13:24-0400 Respiratory rate 16 /min Yoly Ilya PA-C Work Phone: [facility] 09-15-2023 13:24-0400 SaO2% (BldA) [Mass fraction] 96 % Yoly Ilya PA-C Work Phone: [facility] 09-15-2023 13:24-0400 Systolic blood pressure 130 mm[Hg] Yoly Ilya PA-C Work Phone: [facility] 09-14-2023 14:24-0400 Body height 182.2 cm Lia Markham MD Work Phone: [facility] 09-14-2023 14:24-0400 Body weight 105.14 kg Lia Markham MD Work Phone: [facility] 09-14-2023 14:24-0400 Diastolic blood pressure 56 mm[Hg] Lia Markham MD Work Phone: [facility] 09-14-2023 14:24-0400 Heart rate 84 /min Lia Markham MD Work Phone: [facility] 09-14-2023 14:24-0400 SaO2% (BldA) [Mass fraction] 95 % Lia Markham MD Work Phone: [facility] 09-14-2023 14:24-0400 Systolic blood pressure 108 mm[Hg] Lia Markham MD Work Phone: [facility] 10-22-2022 14:16-0500 Body height 182.2 cm Lia Markham MD Work Phone: [facility] 10-22-2022 14:16-0500 Body weight 109.14 kg Lia Markham MD Work Phone: [facility] 10-22-2022 14:16-0500 Diastolic blood pressure 66 mm[Hg] Lia Markham MD Work Phone: [facility] 10-22-2022 14:16-0500 Heart rate 87 /min Lia Markham MD Work Phone: [facility] 10-22-2022 14:16-0500 SaO2% (BldA) [Mass fraction] 95 % Lia Markham MD Work Phone: [facility] 10-22-2022 14:16-0500 Systolic blood pressure 134 mm[Hg] Lia Markham MD Work Phone: [facility] 10-22-2022 08:03-0500 Body weight 109.77 kg Carly Banks MD Work Phone: [facility] 10-22-2022 08:03-0500 Diastolic blood pressure 78 mm[Hg] Carly Banks MD Work Phone: [facility] 10-22-2022 08:03-0500 Heart rate 97 /min Carly Banks MD Work Phone: [facility] 10-22-2022 08:03-0500 Respiratory rate 17 /min Carly Banks MD Work Phone: [facility] 10-22-2022 08:03-0500 SaO2% (BldA) [Mass fraction] 96 % Carly Banks MD Work Phone: [facility] 10-22-2022 08:03-0500 Systolic blood pressure 144 mm[Hg] Carly Banks MD Work Phone: [facility] 09-06-2022 10:33-0400 Body height 182.2 cm Respiratory Wstr Work Phone: [facility] 09-06-2022 10:33-0400 Body weight 110.18 kg Respiratory Wstr Work Phone: [facility] 09-06-2022 10:33-0400 Heart rate 73 /min Respiratory Wstr Work Phone: [facility] 09-06-2022 10:33-0400 Respiratory rate 14 /min Respiratory Wstr Work Phone: [facility] 09-06-2022 10:33-0400 SaO2% (BldA) [Mass fraction] 94 % Respiratory Wstr Work Phone: [facility] 09-03-2022 09:06-0400 Body height 182.9 cm Lia Markham MD Work Phone: [facility] 09-03-2022 09:06-0400 Body weight 110.5 kg Lia Markham MD Work Phone: [facility] 09-03-2022 09:06-0400 Diastolic blood pressure 60 mm[Hg] Lia Markham MD Work Phone: [facility] 09-03-2022 09:06-0400 Heart rate 84 /min Lia Markham MD Work Phone: [facility] 09-03-2022 09:06-0400 SaO2% (BldA) [Mass fraction] 96 % Lia Markham MD Work Phone: [facility] 09-03-2022 09:06-0400 Systolic blood pressure 114 mm[Hg] Lia Markham MD Work Phone: [facility] 08-20-2022 11:18-0400 Body weight 111.13 kg Lia Markham MD Work Phone: [facility] 08-20-2022 11:18-0400 Diastolic blood pressure 68 mm[Hg] Lia Markham MD Work Phone: [facility] 08-20-2022 11:18-0400 Heart rate 72 /min Lia Markham MD Work Phone: [facility] 08-20-2022 11:18-0400 Systolic blood pressure 132 mm[Hg] Lia Markham MD Work Phone: [facility] 06-24-2022 15:29-0400 Body weight 109.59 kg Rosemary Nikole 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 Work Phone: [facility] 06-24-2022 15:29-0400 Diastolic blood pressure 88 mm[Hg] Rosemary Nikole 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 Work Phone: [facility] 06-24-2022 15:29-0400 Heart rate 76 /min Rosemary Nikole 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 Work Phone: [facility] 06-24-2022 15:29-0400 SaO2% (BldA) [Mass fraction] 95 % Rosemary Nikole 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 Work Phone: [facility] 06-24-2022 15:29-0400 Systolic blood pressure 136 mm[Hg] Rosemary Nikole 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 Work Phone: [facility] 06-21-2022 14:20-0400 Body temperature 98.4 [degF] Inna Roque 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 Work Phone: [facility] 06-21-2022 14:20-0400 Body weight 110.68 kg Inna Roque APRN.OIL AND GAS DRAFTER Work Phone: [facility] 06-21-2022 14:20-0400 Diastolic blood pressure 78 mm[Hg] Inna Roque 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 Work Phone: [facility] 06-21-2022 14:20-0400 Heart rate 86 /min Inna Roque APRN.OIL AND G[employer] DRAFTER Work Phone: [facility] 06-21-2022 14:20-0400 Respiratory rate 20 /min Inna Roque APRN.OIL AND GAS DRAFTER Work Phone: [facility] 06-21-2022 14:20-0400 SaO2% (BldA) [Mass fraction] 95 % Inna Roque APRN.OIL AND GAS DRAFTER Work Phone: [facility] 06-21-2022 14:20-0400 Systolic blood pressure 130 mm[Hg] Inna Rqoue 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 Work Phone: [facility] 06-15-2022 08:19-0400 Body weight 108.86 kg Isabela Hernández 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 Work Phone: [facility] 06-15-2022 08:19-0400 Diastolic blood pressure 80 mm[Hg] Isabela Hernández 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 Work Phone: [facility] 06-15-2022 08:19-0400 Heart rate 76 /min Isabela Hernández 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 Work Phone: [facility] 06-15-2022 08:19-0400 Respiratory rate 18 /min Isabela Hernández 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 Work Phone: [facility] 06-15-2022 08:19-0400 SaO2% (BldA) [Mass fraction] 95 % Isabela Hernández 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 Work Phone: [facility] 06-15-2022 08:19-0400 Systolic blood pressure 132 mm[Hg] Isabela Hernández 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 Work Phone: [facility] 02-15-2022 10:54-0400 Body weight 109.77 kg Lia Markham MD Work Phone: [facility] 02-15-2022 10:54-0400 Diastolic blood pressure 82 mm[Hg] Lia Markham MD Work Phone: [facility] 02-15-2022 10:54-0400 Heart rate 80 /min Lia Markham MD Work Phone: [facility] 02-15-2022 10:54-0400 Systolic blood pressure 120 mm[Hg] Lia Markham MD Work Phone: [facility] Encounters Encounter Date Encounter Type Care Provider Facility Start: 01-04-2024 ambulatory Lia Markham MD Work Phone: [facility] Procedures Date Procedure Procedure Detail Performing Clinician Start: 09-22-2023 Us retroperitoneal r eal time w/image limited Lia Markham MD Work Phone: Start: 09-06-2023 Hemoglobin A1c/Hemoglobin.total in Blood [facility] Provider Start: 09-06-2022 Brncdilat rspse spmt ry pre&post-brncdilat admn iLa Markham MD Work Phone: Start: 09-03-2022 Ecg [...] DTaP,Tdap,Td Vaccine (3 - Td or Tdap) [facility] Start: 10-06-2026 Colonoscopy COLONOSCOPY [facility] Start: 10-06-2026 COLORECTAL CANCER SCREENING COLORECTAL CANCER SCREENING [facility] Start: 10-06-2026 Screening for malignant neoplasm of colon [facility] Start: 08-21-2025 PROSTATE CANCER SCREENING DISCUSSION PROSTATE CANCER SCREENING DISCUSSION [facility] Start: 12-13-2024 Annual PCP Team Chronic Disease Visit Annual PCP Team Chronic Disease Visit [facility] Start: 11-11-2024 Hepatitis B screening Urine Albumin:Creatinine Ratio [facility] Start: 11-07-2024 Annual PCP Team Chronic Disease Visit Annual PCP Team Chronic Disease Visit [facility] Start: 10-29-2024 Hepatitis B surface antibody level LDL Cholesterol [facility] Start: 10-05-2024 Annual PCP Team Chronic Disease Visit Annual PCP Team Chronic Disease Visit [facility] Start: 09-28-2024 Influenza vaccination Lung Cancer Screening [facility] Start: 09-28-2024 Screening for malignant neoplasm of lung Lung Cancer Screening [facility] Start: 09-14-2024 Annual PCP Team Chronic Disease Visit Annual PCP Team Chronic Disease Visit [facility] Start: 09-05-2024 Annual PCP Team Chronic Disease Visit Annual PCP Team Chronic Disease Visit [facility] Start: 01-28-2024 Hemoglobin A1c measurement HbA1C [facility] Start: 12-07-2023 Hemoglobin A1c/Hemoglobin.total in Blood HbA1C [facility] Start: 11-21-2023 Advance Directive Discussion Advance Directive Discussion [facility] Start: 11-10-2023 ANNUAL PCP TEAM CHRONIC DISEASE VISIT ANNUAL PCP TEAM CHRONIC DISEASE VISIT [facility] Start: 10-22-2023 ANNUAL PCP TEAM CHRONIC DISEASE VISIT ANNUAL PCP TEAM CHRONIC DISEASE VISIT [facility] Start: 10-21-2023 Glaucoma screening Dilated Retinal Exam [facility] Start: 10-21-2023 Hepatitis C antibody, confirmatory test DILATED RETINAL EXAM [facility] Start: 10-05-2023 End: 01-04-2024 CBC W Auto Differential panel - Blood CBC + DIFF Lab Routine Controlled type 2 diabetes mellitus without complication, without long-term current use of insulin ([facility]) Expected: 10/05/2023, Expires: 01/04/2024 [facility] Work Phone: Immunizations Immunization Date Immunization Notes Care Provider David granger 08-24-2023 influenza (HD-IIV4) vaccine, age 65+ yr, high dose, quadrivalent, PF (FLUZONE HIGH-DOSE) Lia Markham MD Work Phone: [facility] 08-24-2023 respiratory syncytia l virus (RSV) vaccine, adjuvanted (AREXVY) Lia Markham MD Work Phone: [facility] 08-20-2022 influenza, high-dose , quadrivalent vaccine (FLUZONE HIGH DOSE QUADRIVALENT) Lia Markham MD Work Phone: [facility] 08-20-2022 pneumococcal (PCV20) vaccine, 20 valent (PREVNAR 20) Lia Markham MD Work Phone: [facility] 08-20-2022 pneumococcal Conjuga te, unspecified formulation Lia Markham MD Work Phone: [facility] Work Phone: 08-20-2022 influenza virus vacc ine, unspecified formulation Carly Banks MD Work Phone: [facility] 09-09-2021 influenza, high dose seasonal, preservative-free Lia Markham MD Work Phone: [facility] 02-12-2021 COVID-19 vaccine, ag e 12+ yr (PFIZER-BIONTECH - PURPLE TOP) Lia Markham MD Work Phone: [facility] 01-22-2021 COVID-19 vaccine, ag e 12+ yr (PFIZER-BIONTECH - PURPLE TOP) Lia Markham MD Work Phone: [facility] 08-21-2020 influenza, high-dose , quadrivalent vaccine (FLUZONE HIGH DOSE QUADRIVALENT) Lia Markham MD Work Phone: [facility] 08-21-2020 pneumococcal polysaccharide vaccine, 23 valent Lia Markham MD Work Phone: [facility] 12-30-2019 zoster vaccine recombinant Lia Markham MD Work Phone: [facility] 10-18-2019 zoster vaccine recombinant Lia Markham MD Work Phone: [facility] 09-14-2019 influenza, high dose seasonal, preservative-free Lia Markham MD Work Phone: [facility] 09-14-2019 zoster vaccine recombinant Lia Markham MD Work Phone: [facility] 10-04-2018 influenza, injectabl e, quadrivalent, contains preservative Lia Markham MD Work Phone: [facility] 09-01-2017 influenza, injectabl e, quadrivalent, contains preservative Lia Markham MD Work Phone: [facility] 09-21-2016 influenza, injectabl e, quadrivalent, contains preservative Lia Markham MD Work Phone: [facility] Work Phone: 10-30-2015 influenza, injectabl e, quadrivalent, contains preservative Lia Markham MD Work Phone: [facility] 10-31-2014 influenza, seasonal, injectable Lia Markham MD Work Phone: [facility] 10-31-2014 zoster vaccine, live Lia Markham MD Work Phone: [facility] 09-27-2012 influenza virus vacc ine, unspecified formulation Lia Markham MD Work Phone: [facility] 09-21-2011 influenza virus vacc ine, unspecified formulation Lia Markham MD Work Phone: [facility] Work Phone: 08-07-2010 pneumococcal polysaccharide vaccine, 23 valent Lia Markham MD Work Phone: [facility] Work Phone: 08-07-2010 tetanus toxoid, redu nathan diphtheria toxoid, and acellular pertussis vaccine, adsorbed Lia Markham MD Work Phone: [facility] Work Phone: 10-11-2007 influenza virus vacc ine, unspecified formulation Lia Markham MD Work Phone: [facility] Work Phone: Payers Date Payer Category Payer Medicare [id number] 2019 Medicare MEDICARE MEDICAR E A AND B [id number] 2019-Present [phone] [address] [address] [place] [address] Medicare [id number] 2019 Medicare [id number] 2001 Unknown JUAN J LAST ACCE SS PPO [id number] 2001-2021 [address] [place] [address] PPO [id number] Social History Date Type Detail Facility Start: 05-01-2021 End: 09-20-2023 Tobacco smoking status NHIS Ex-smoker [facility] End: 09-01-2023 History of tobacco use Cigarette Smoker [facility] Start: 05-01-2021 End: 05-02-2023 Cigarettes smoked current (pack per day) - Reported 0.5 [facility] Start: 05-01-2021 End: 09-20-2023 Tobacco use and exposure Smokeless tobacco non-user [facility] Start: 02-15-2022 End: 09-14-2023 Alcohol intake Current drinker of alcohol (finding) [facility] Start: 04-27-2021 End: 10-21-2022 History SDOH Alcohol Frequency 2 [facility] Start: 04-27-2021 End: 10-21-2022 History SDOH Alcohol Std Drinks 1 [facility] Start: 04-05-2017 History SDOH Alcohol Comment occasionally beer or liquor [facility] Start: 04-27-2021 End: 10-21-2022 History SDOH Social Connections Phone 3 [facility] Start: 04-27-2021 History SDOH Physical Activity MPS 0 [facility] Start: 04-27-2021 Education 17 [facility] Start: 1955 Sex Assigned At Male [facility] Start: 02-05-2022 End: 10-22-2022 Exposure to SARS-CoV-2 (event) Not sure [facility] End: 09-01-2023 History of tobacco use Current smoker [facility] Start: 10-22-2022 Tobacco Comment Quit 2019 [facility] Start: 12-28-2022 End: 05-02-2023 Tobacco smoking status NHIS Occasional tobacco smoker [facility] Work Phone: Start: 12-28-2022 Tobacco Comment Restarted smoking over the holidays [facility] Start: 10-21-2022 End: 05-02-2023 Alcohol Use Disorder Identification Test - Consumption [AUDIT-C] [facility] How often to you hav e a drink containing alcohol? Monthly or less [facility] How many standard dr inks containing alcohol do you have on a typical day? 1 or 2 [facility] How often do you hav e 6 or more drinks on 1 occasion? Never [facility] Adult Depression Scr eening Assessment 0 [facility] Do you feel stress - tense, restless, nervous, or anxious, or unable to sleep at night because your mind is troubled all the time - these days [OSQ] To some extent [facility] In the past 12 month s, was there a time when you were not able to pay the mortgage or rent on time? No [facility] Start: 05-02-2023 Tobacco Comment Less than 1ppd 05/02/23 [facility] Start: 04-27-2021 Gender identity Identifies as male gender (finding) [facility] Start: 04-27-2021 Sexual orientation Heterosexual (finding) [facility] Do you belong to any clubs or organizations such as religion groups, unions, fraternal or athletic groups, or school groups? Yes [facility] Are you now , , , , never or living with a partner? [facility] (I/We) worried wheth er (my/our) food would run out before (I/we) got money to buy more. Never true [facility] Start: 09-15-2023 End: 12-13-2023 Alcohol intake Ex-drinker (finding) [facility] Start: 09-15-2023 Tobacco Comment Less than 1ppd 05/02/23Quit 09/01/2023 [facility] Start: 09-20-2023 Tobacco Comment Quit 09/01/2023 [facility] Do you feel stress - tense, restless, nervous, or anxious, or unable to sleep at night because your mind is troubled all the time - these days [OSQ] Only a little [facility] Medical Equipment Procedure Code Equipment Code Equipment Origin al Text Equipment Identifier Dates Start: 07-29-2010 End: 07-11-2023 Clinical Notes 10-12-2011 to 01-04-2024 Telephone Encounter - Lia Markham MD - 01/04/2024 10:17 AM ESTTelephone Encounter - Alicia Reyes LPN - 01/04/2024 9:53 AM ESTTelephone Encounter - Alicia Reyes LPN - 12/30/2023 4:10 PM EST Note Date & Type Note Facility 01-04-2024 Miscellaneous Notes They are worried what is going on with his biliary stent as am I. According to the notes, at least, they were contampating admission and he wanted to go home. He probably would have been better to stay. If still feeling badly, back to er and let them admit him if they want to. Otherwise its up to Dr Friend to decide next step. Scan on 01/04/2024 12:39 AM by Provider, External, KYAW: Consultation - Emergency Medicine documented in this encounter [facility] 12-30-2023 Miscellaneous Notes Duplicate encounter. documented in this encounter [facility] 12-26-2023 Miscellaneous Notes MARCUS 05/02/23 Patient phones requesting refills as follows: Requested Prescriptions Pending Prescriptions Disp Refills [id number] (TRELEGY ELLIPTA) 100-62.5-25 mcg inhalation powder 180 Each 3 Sig: Inhale 1 Puff as instructed once daily. Please review and advise. Marcy Cedillo LPN documented in this encounter [facility] 12-13-2023 Note HNO ID: [id number] Author: LIA MARKHAM MD Service: ? Author [...] Reason for visit: weakness, fall Which facility: [facility] Date of visit: 11/02/23 Discharged: 11/05/23 [...] Use one pen needle four times daily ipefixlrsog-kfdscdzbn-ahkkyskg (TRELEGY ELLIPTA) 100-62.5-25 mcg inhalation powder Inhale [...] once daily. clob (more content not included)... [facility] 11-07-2023 Note HNO ID: [id number] Author: Lia Markham MD Service: ? Author Type: Physician Type: Progress Notes Filed: 11/07/2023 12:43 PM Note Text: Patient presents with: Hospice Discharge HPI: Patient presents today for office visit for hospital follow up. HOSPITAL/ER FOLLOW UP: Reason for visit: weakness, fall Which facility: [facility] Date of visit: 11/02/23 Discharged: 11/05/23 [...] Use one pen needle four times daily fwfsjfddjsz-jxedutqre-yzblypor (TRELEGY ELLIPTA) 100-62.5-25 mcg inhalation powder Inhale [...] 2010 Dysmetabolic sy (more content not included)... [facility] 11-02-2023 Miscellaneous Notes Spoke to and scheduled patient Acrlydara Manriquez Ma documented in this encounter [facility] 10-22-2023 Miscellaneous Notes Placed in mail written documented in this encounter [facility] 10-11-2023 Miscellaneous Notes rxi documented in this encounter [facility] 10-05-2023 Note HNO ID: [id number] Author: Lia Markham MD Service: ? Author Type: Physician Type: Progress Notes Filed: 10/05/2023 12:18 PM Note Text: Patient presents with: Follow Up HPI: Patient presents today for office visit for 3 week follow up. Was seen in [facility] on 09/06/23 for stroke like symptoms [...] his subacute cva. Was seen back in [facility] on 09/26/23 Discharged on 09/27/23 Went [...] therapies ordered. He has been going to [facility] instead. Reiterated that it is not an acceptable substitute. Orders were placed. They are planning on going to [place] this week. Suggested with recent cva they [...] Use one pen needle four times daily hirdlmdamcv-xebhwauzn-fomhxefk (TRELEGY ELLIPTA) 100-62.5-25 mcg inhalation powder Inhale [...] SPEC WHEN PFRMD (more content not included)... [facility] 10-05-2023 Instructions Lia Markham MD - 10/05/2023 12:08 PM EST Increase humalog to 19 units with each meal. Send over sugars on Tuesday. documented in this encounter [facility] 10-05-2023 History of Present illness Narrative Patient presents with: Follow Up HPI: Patient presents today for office visit for 3 week follow up. Was seen in [facility] on 09/06/23 for stroke like symptoms [...] his subacute cva. Was seen back in [facility] on 09/26/23 Discharged on 09/27/23 Went [...] therapies ordered. He has been going to [facility] instead. Reiterated that it is not an acceptable substitute. Orders were placed. They are planning on going to [place] this week. Suggested with recent cva they [...] Use one pen needle four times daily pjedoonmseb-tvnnvajkv-luavztkt (TRELEGY ELLIPTA) 100-62.5-25 mcg inhalation powder Inhale [...] Lia Markham MD documented in this encounter [facility] 09-28-2023 Note HNO ID: [id number] Author: Suellen Kaplan RT(R) Service: ? Author Type: Drafting Supervisor Type: Progress Notes Filed: 09/28/2023 4:18 PM [...] RT Avelina(R) September 28, 2023 4:18 PM [facility] 09-26-2023 Miscellaneous Notes Pt was taken to [facility] ER by spouse. Reg Broussard Message left for or patient to call PCP office and ask for traige nurse, for provider's response below. Melody Schulz RN Agree, these sx belong in ER should not wait. Thanks, Rusty Calhoun PA-C Patient's calls concerned. Patient was seen in [facility] 09/06/2023 with stroke like symptoms. Patient [...] Sagrario Barrera RN documented in this encounter [facility] 09-22-2023 Note HNO ID: [id number] Author: Penny Pastor RDMS Service: ? Author Type: Drafting Supervisor Type: Progress Notes Filed: 09/22/2023 2:14 PM [...] Pastor RDMS September 22, 2023 2:14 PM [facility] 09-22-2023 History of Present illness Narrative Radiology [...] 2023 2:14 PM documented in this encounter [facility] 09-20-2023 Note HNO ID: [id number] Author: Andres Dotson APRN.[employer]RAFTER Service: ? Author Type: Nurse Practitioner Type: [...] pre-disease performance w/o restriction. Modified Medical Research [place] Dyspnea Scale (MMRC) I only get breathless [...] Inject 50 Units subcutaneously daily at bedtime. sxdnadvimsy-yexdklukw-tbhqmygh (TRELEGY ELLIPTA) 100-62.5-25 mcg inhalation powder Inhale [...] mg by mout (more content not included)... [facility] 09-20-2023 Instructions Andres Dotson APRN.[facility] - 09/20/2023 10:[address] Lung [...] to endocrinology. Others Lung Cancer Screening hotline: [phone] Lung Cancer Screening [phone] Billing Questions: or [email or web address] Lung Cancer Screening Team: Angeles Lopez CNP; Gladys Reddy PA-C; Suellen Joseph CNP; Diamond Rosas CNP, Susanne Wolfe PA-C, Fide Andino PA-C, Andres Dotson, OIL AND G[employer] DRAFTER : [phone] documented in this encounter [facility] 09-20-2023 History of Present illness Narrative Images [...] presents for lung screening. [facility] . Respiratory symptoms include: SOB: [...] pre-disease performance w/o restriction. Modified Medical Research [place] Dyspnea Scale (MMRC) I only get breathless [...] Inject 50 Units subcutaneously daily at bedtime. lhmxvvaenvm-hxurtcxyr-ntckyocp (TRELEGY ELLIPTA) 100-62.5-25 mcg inhalation powder Inhale [...] COVID-19 original vaccine, age 12+ yr, monovalent ([employer] - PURPLE TOP) 01/22/2021 02/12/2021 09/09/2021 COVID-19 vaccine, age 12+ yr, 2022- season ([employer]) 09/13/2023 COVID-19 vaccine, age 12+ yr, bivalent ([employer]) 08/30/2022 influenza (HD-IIV3) vaccine, age 65+ yr, [...] DATE OF EXAM: Sep 06 2022 1:24PM [facility] - CT CHEST WO IVCON / PROCEDURE [...] the upper abdomen demonstrates no interval changes. Cra (topogram) images: No additional findings. Impression: IMPRESSION: Numerous tiny centrilobular nodules in the bilateral lungs, likely secondary to inflammatory/infectious process or small airway disease. Mild emphysema. No CT evidence of interstitial lung disease. Remote granulomatous disease. Mastic Worker: [facility] Transcribe Date/Time: Sep 07 2022 2:32P Dictated [...] medial basilar pneumonia. Lungs are otherwise clear. Mastic Worker: [facility] Transcribe Date/Time: Sep 03 2022 12:23P ... 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 The inspired (FIVC) spirometry maneuver is [less than/greater than] the FVC maneuver. IMPRESSION: Spirometry indicates moderate obstruction. Electronically Signed On 09-15-2023 16:45:15 EDT by Carly Banks MD ID: [id number] Name: OLGA WOODSON Race: White Ht: 71.75 in Wt: 231.00 lbs Age: 68 Gender: Male : 1955 Dx: COPD_ Smoking Hx: Non-smoker Doctor: YOLY ORNELAS Test Date: 09/15/2023 Site: Tech: Elvertara Madyson PRE-BRONCH POST-BRONCH Pre LLN Pred ULN %Pred Post %Pred %Chg SPIROMETRY FVC (L) 4.41 3.25 4.37 5.50 100 FEV1 (L) 2.26 2.41 3.29 4.12 68 FEV1/FVC 0.51 0.63 0.76 0.87 67 PEF L/s (L/sec) 5.37 6.41 8.85 11.28 60 FEF50 (L/sec) 1.09 2.27 4.40 6.52 24 FIF50 (L/sec) 2.67 FEF50/FIF50 0.41 90-100 FIVC (L) 3.28 QGR31-90 (L/sec) 0.70 1.14 2.60 4.64 27 Time (sec) 13.94 FET PEF (sec) 0.12 AMINTA (L) 0.06 Vol Extrap % (%) 1 PHYSICAL EXAM: BP 144/82 Pulse 100 Wt 102.1 kg (225 lb) SpO2 96% BMI 30.73 kg/m Deferred ASSESSMENT and RECOMMENDATIONS: 1. Screening for lung cancer: Six year risk for lung cancer: 4.43% Https://Nexthink.Airpowered/Spanish /result/male_4.4_yes_unknown http://www.Fitzeal.Airpowered/tiny/01sk4 https://youtu.be/xFaVbGhSbO4 I have determined that the patient [...] 2023 10:40 AM documented in this encounter [facility] 09-15-2023 Note HNO ID: [id number] Author: Yoly Ornelas PA-C Service: ? Author Type: Physician Bath Solution Maker Type: Progress Notes Filed: 09/15/2023 2:43 PM Note Text: Patient: Olga Woodson PCP: Lia Markham MD CC: follow up HPI: Olga Woodson 68 year old male recently former 18-gewh-rcfm smoker with PMH significant for psoriasis, anxiety, HLD, DM, CVA, CALLI on CPAP, and COPD. Current therapy with Trelegy and as needed Albuterol. Today, patient states he was recently admitted to secondary to CVA. States he had been [...] Inject 50 Units subcutaneously daily at bedtime. aphaxxtasgo-woxojzibk-upzslxsv (TRELEGY ELLIPTA) 100-62.5-25 mcg inhalation powder Inhale [...] history, social h (more content not included)... [facility] 09-15-2023 Note HNO ID: [id number] Author: Madyson Robbins RPFT Service: ? Author Type: Respiratory Therapist Type: Progress Notes Filed: 09/15/2023 1:18 PM Note Text: PULM FUNCTION SMARTBLOCK: Provider: Yoly Ornelas PA-C Assisting Tech: Madyson Robbins RPFT Spirometry: 1 [facility] 09-15-2023 History of Present illness Narrative Images from the original note were not included. Patient: Olga Woodson PCP: Lia Markham MD CC: follow up HPI: Olga Woodson 68 year old male recently former 78-gzyz-cuju smoker with PMH significant for psoriasis, anxiety, HLD, DM, CVA, CALLI on CPAP, and COPD. Current therapy with Trelegy and as needed Albuterol. Today, patient states he was recently admitted to secondary to CVA. States he had been [...] Inject 50 Units subcutaneously daily at bedtime. lvxdwxtxavt-koygdudxa-mmlsegce (TRELEGY ELLIPTA) 100-62.5-25 mcg inhalation powder Inhale [...] smoker - ICD9: V15.82, ICD10: Z87.891 Former 55-iqzy-qvfp smoker with sequelae of COPD. Is scheduled with lung cancer screening for LDCT. Portions of this documentation were copied and pasted from previous office visit notes in order to provide a cohesive continuity of the history. The note has been reviewed and edited and updated as necessary. Yoly Ornelas PA-C documented in this encounter [facility] 09-14-2023 Note HNO ID: [id number] Author: Lia Markham MD Service: ? Author Type: Physician Type: Progress Notes Filed: 09/15/2023 10:32 AM Note Text: Patient presents with: Hospital F/U HPI: Patient presents today for office visit for hospital follow up. Seen in [facility] on 09/06/23 Discharged 09/07/23 Admitted for [...] Inject 50 Units subcutaneously daily at bedtime. kzfiftjhbyn-aaichasoz-pwpimlfp (TRELEGY ELLIPTA) 100-62.5-25 mcg inhalation powder Inhale [...] 07/13/2012 Right ro (more content not included)... [facility] 09-14-2023 Instructions Lia Markham MD - 09/14/2023 3:16 PM EDT My chart list of sugars next . documented in this encounter [facility] 09-14-2023 History of Present illness Narrative Patient presents with: Hospital F/U HPI: Patient presents today for office visit for hospital follow up. Seen in [facility] on 09/06/23 Discharged 09/07/23 Admitted for [...] Inject 50 Units subcutaneously daily at bedtime. wxuhpliomgo-eefconqut-ojbxkvgu (TRELEGY ELLIPTA) 100-62.5-25 mcg inhalation powder Inhale [...] CONSULT TO SPEECH THERAPY - CONSULT TO CARDING MACHINE OPERATOR 2. Controlled type 2 diabetes mellitus [...] US DOPPLER AORTA 6. Bronchiectasis without complication (HCC) - ICD9: 494.0, ICD10: J47.9 - per pulmonary 7. Stage 3 severe COPD by GOLD classification (HCC) - ICD9: 496, ICD10: J44.9 - per [...] Lia Markham MD documented in this encounter [facility] documented as of this encounter (statuses as of 10/05/2023) [facility]10-25-2023 History of Past illness Narrative* Problem Noted [...] of uncertain behavi or of skin: R faith face: R/O BCC 10/12/2011 09/21/2016 Actinic Keratosis [...] of this encounter (statuses as of 10/07/2023) [facility]10-25-2023 History of Past illness Narrative* Problem Noted [...] of uncertain behavi or of skin: R faith face: R/O BCC 10/12/2011 09/21/2016 Actinic Keratosis [...] of this encounter (statuses as of 10/12/2023) [facility]10-25-2023 History of Past illness Narrative* Problem Noted [...] of uncertain behavi or of skin: R faith face: R/O BCC 10/12/2011 09/21/2016 Actinic Keratosis [...] of this encounter (statuses as of 10/22/2023) [facility]10-25-2023 History of Past illness Narrative* Problem Noted [...] of uncertain behavi or of skin: R faith face: R/O BCC 10/12/2011 09/21/2016 Actinic Keratosis [...] of this encounter (statuses as of 11/03/2023) [facility]-25-2023 History of Past illness Narrative* Problem Noted [...] of uncertain behavi or of skin: R faith face: R/O BCC 10/12/2011 09/21/2016 Actinic Keratosis [...] of this encounter (statuses as of 11/11/2023) [facility]-25-2023 History of Past illness Narrative* Problem Noted [...] of uncertain behavi or of skin: R faith face: R/O BCC 10/12/2011 09/21/2016 Actinic Keratosis [...] of this encounter (statuses as of 12/27/2023) [facility]-25-2023 History of Past illness Narrative* Problem Noted [...] of uncertain behavi or of skin: R faith face: R/O BCC 10/12/2011 09/21/2016 Actinic Keratosis [...] of this encounter (statuses as of 12/30/2023) [facility]10-25-2023 History of Past illness Narrative* Problem Noted [...] of uncertain behavi or of skin: R faith face: R/O BCC 10/12/2011 09/21/2016 Actinic Keratosis [...] of this encounter (statuses as of 12/30/2023) [facility]10-25-2023 History of Past illness Narrative* Problem Noted [...] of uncertain behavi or of skin: R faith face: R/O BCC 10/12/2011 09/21/2016 Actinic Keratosis [...] as of this encounter (statuses as of 01/04/2024) [facility]10-16-2023 NoteHNO ID: [id number] Author: Lia Markham MD Service: ? Author [...] patient. Patient was working out today. Director Medical Surgical refused to work out with patient due [...] Inject 50 Units subcutaneously daily at bedtime. rnvhovzdheh-nanyafqcz-hkhsxiku (TRELEGY ELLIPTA) 100-62.5-25 mcg inhalation powder Inhale [...] penis erectile dysfunction PER (more content not included)...[facility]10-16-2023 Miscellaneous Notes* Telephone Encounter - Karen Varghese [...] response. Karen Varghese Ma documented [facility] Miscellaneous Notes* Telephone Encounter - Alicia Reyes [...] patient. Alicia Reyes LPN documented [facility] Miscellaneous Notes* Telephone Encounter - Lia Markham MD - 06/03/2023 7:58 AM EDT Does not look like he picked up the message. Can we call him with my response. I do not think he realizes it is the same identical med...just called different. documented in this [facility]23 NoteHNO ID: [id number] Author: Yoly Ornelas PA-C Service: ? Author Type: Physician Bath Solution Maker Type: Progress Notes Filed: 05/02/2023 11:39 AM [...] However, he started smoking again soon after [place]. Currently smoking less than a pack per [...] 1.5 PPD Psoriasis Skin cancer Stroke (cerebrum) ([facility]) Tobacco use disorder Type II or unspecified type diabetes mellitus without mention of complication, uncontrolled 08/07/2010 Diagnosed 07/2010 Allergies: Metformin Diarrhea Penicillins iktfgvtdipv-vqntgwqlp-tshayofd (TRELEGY ELLIPTA) 100-62.5-25 mcg inhalation powder Inhale [...] 07/01/2015 resolution pleural ef (more content not included)...[facility] 04-04-2023 Miscellaneous Notes* Telephone Encounter - Reg Broussard LPN - 04/04/2023 9:01 AM EDT Faxed. Reg Broussard LPN * Telephone Encounter - Isabela Hernández APRN.CNP - 04/01/2023 4:51 PM EDT Form completed. Can returned as requested. * Telephone Encounter - Reg Broussard LPN - 03/30/2023 5:04 PM EDT Type of form: CMN for DME Form received via fax When form is completed, Fax form to [phone] Form has been forwarded to Nurse Practictioner: JERI Canchola LPN documented [facility] this [facility] Miscellaneous Notes* Telephone Encounter - Marcy Cedillo LPN - 03/22/2023 10:35 AM EDT Patient phones requesting refills as follows: Requested Prescriptions Pending Prescriptions Disp Refills rrcjwcdtfph-rsqpfrsdx-saeaytxb (TRELEGY ELLIPTA) 100-62.5-25 mcg inhalation powder 1 Each 3 Sig: Inhale 1 Puff as instructed once daily. Please review and advise. Marcy Cedillo LPN documented in this [facility]23 Miscellaneous Notes* Telephone Encounter - Alicia Reyes [...] patient. Alicia Reyes LPN documented in this [facility]23 Miscellaneous Notes* Telephone Encounter - Alicia Reyes [...] leaking wants to see Dr Church at [facility] needsreferral sent over there. documented in this [facility]23 Miscellaneous Notes* Telephone Encounter - Alicia Reyes [...] patient. Alicia Reyes LPN documented in this [facility]-2023 NoteHNO ID: [id number] Author: Carly Banks MD Service: ? Author Type: Physician Type: Progress Notes Filed: 12/28/2022 11:06 AM Note Text: . Respiratory [place] Note Patient name: Olga Woodson PCP: Lia [...] 3 mg subcutaneously one time a week. knccckekhpu-pdnnwmlgk-degsimxx (TRELEGY ELLIPTA) 100-62.5-25 mcg inhalation powder Inhale [...] and deep fold areas. (more content not included)...[facility]12-15-2022 Miscellaneous Notes* Telephone Encounter - Zion Calhoun PA-C - 11/04/2022 6:35 PM EST The following approved medication requests have been transmitted electronically. Requested Prescriptions Signed Prescriptions Disp Refills dulaglutide (TRULICITY) 3 mg/0.5 mL pen injector 12 Each 3 Sig: Inject 3 mg subcutaneously one time a week. Zion Calhoun PA-C documented in this [facility] History of Present illness Narrative* Lia Markham [...] ago. MEDICATIONS: Current Outpatient Medications Medication Sig jdtevaninqt-vjunviiph-wqhvqmie (TRELEGY ELLIPTA) 100-62.5-25 mcg inhalation powder Inhale [...] Stage 3 severe COPD by GOLD classification ([facility]) - ICD9: 496, ICD10: J44.9 (primary diagnosis) - continue meds. 2. Mild depressive disorder - ICD9: 311, ICD10: F32.A - VENLAFAXINE ER 150 MG CAPSULE,EXTENDED RELEASE 24 HR 3. Bronchiectasis without complication ([facility]) - ICD9: 494.0, ICD10: J47.9 - stable. Discussed importance of taking meds regularly. 4. Controlled type 2 diabetes mellitus without complication, without long-term current use of insulin (HCC) - ICD9: 250.00, ICD10: E11.9 improved control - Continue current medications Lia Markham MD documented in this [facility] History of Present illness Narrative* Carly Banks MD - 10/22/2022 8:00 AM EST Images from the original note were not included. . Respiratory [place] Note Patient name: Olga Woodson PCP: Lia [...] breath. Started a working out with a safety trainer who noticed significant labored breathing.He notes [...] DATE OF EXAM: Sep 06 2022 1:24PM [facility] 0541 - CT CHEST WO IVCON [...] 07/2010 ALLERGIES Allergen Reactions Metformin Diarrhea Penicillins egqyfhxgglk-mghgycrxj-jtwolgto (TRELEGY ELLIPTA) 100-62.5-25 mcg inhalation powder Inhale [...] be helpful 2. Former cigarette smoker -Former 57-pkox-klzv smoker having quit in 2019 with sequelae of COPD/emphysema -Continue abstinence -Qualifies for low-dose chest CT for cancer screening but would not be due until August 2023 3. Obesity -Class II obesity, BMI 33 -Weight loss advised Carly Banks MD [facility] [place] documented in this [facility] Miscellaneous Notes* Telephone Encounter - Alicia Reyes LPN - 09/22/2022 11:57 AM EDT Faxed back to [employer] as requested. * Telephone Encounter - Lia [...] Dr. Shahrzad Broussard LPN documented in this [facility]11-01-2022 Miscellaneous Notes* Telephone Encounter - Melody Schulz RN - 09/21/2022 10:11 AM EDT Yoly from [facility] calling and states she has received printed CPAP script for patient. Yoly requesting recent OV notes and sleep study results also. Faxed as requested to [phone]. Melody Schulz RN documented in this [facility]10-31-2022 Miscellaneous Notes* Telephone Encounter - Zion French RN - 09/20/2022 10:05 AM EDT Left detailed vm on identified vm with provider's message below. * Telephone Encounter - Zion Calhoun PA-C - 09/19/2022 5:15 PM EDT I placed consult if he wants to establish with [facility] Dr. Banks Thanks, Rusty Calhoun PA-C documented in this [facility]10-21-2022 Miscellaneous Notes* Telephone Encounter - Ana María Mcgee RN - 09/10/2022 11:42 AM EDT (Kary) calls and results reviewed. to speak with and call back in to schedule anappointment with pulmonology. Ana María Mcgee, RN * Telephone Encounter - Karen Varghese [...] to pulmonary to follow documented in this [facility] Miscellaneous Notes* Telephone Encounter - Aleta Teague Ma - 09/07/2022 3:44 PM EDT Keila Aire sends fax stating that rx for CPAP needs to state that it is a replacement machine. Please file. Once filed, will fax with office note. documented in this [facility] History of Present illness Narrative* Suellen Null, [...] 06, 2022 3:26 PM documented in this [facility] History of Present illness Narrative* ERICA Silva - 09/06/2022 10:33 AM EDT PULM FUNCTION SMARTBLOCK: Provider: Lia Markham MD Assisting Tech: ERICA Silva Spirometry w/BD: 1 DLCO: 1 LV - Box: 1 documented in this encounter[facility]-14-2022 Miscellaneous Notes* Telephone Encounter - Aleta Teague [...] out scarring or fibrosis. documented in this [facility] History of Present illness Narrative* Lia Mrakham MD - 09/03/2022 9:06 AM EDT Patient [...] and antegrade flow noted. Technologist: Brynn Harrington T, [facility] Ordering physician: LIA MARKHAM Aorta: 3.3 cm [...] RTO in six weeks. documented in this [facility]-2022 Miscellaneous Notes* Telephone Encounter - Melody Schulz [...] scheduled appt is 10/22. Please advise at [phone]. Reason for Disposition [1] MODERATE longstanding difficulty [...] does nothing, but they do go to [email or web address] during the week and patient does a [...] about 8 months ago when they started [email or web address] he is the same with his SOB. [...] n/a 12. TRAVEL: no Protocols used: Breathing Bqiatznlll-RSGUZ-JZ documented in this encounterSelect [facility]-2022 History of Present illness Narrative* Penny Pastor [...] 26, 2022 11:52 AM documented [facility] Miscellaneous Notes* Telephone Encounter - Danielle Sprague [...] EDT On your desk, it is from 2015. * Telephone Encounter - Lia Markham MD - 08/25/2022 7:58 AM EDT Can we see if we can get his sleep study from [facility] in 2013. documented in this encounter[facility]30[facility] Miscellaneous Notes* Addendum Note - Lia Markham MD - 08/20/2022 11:58 AM EDTAddended by: LIA MARKHAM on: 08/20/2022 11:58 AM Modules accepted: Orders, SmartSet documented in this encounterSelect [facility]-30-[facility]22 History of Present illness Narrative* Lia Markham [...] needles, DISPOSABLE, (EASY TOUCH) 31 gauge x / Use one pen needle four times daily [...] six to eight weeks. documented in this encounterSelect [facility] [place]08-12-2022 Miscellaneous Notes* Telephone Encounter - Alicia Reyes CHRISTINE - 07/02/2022 12:43 PM EDT Patient has [...] patient. Alicia Reyes LPN documented in this encounterSelect [facility] [place]-12-2022 Miscellaneous Notes* Telephone Encounter - Melody Oliveira [...] Advise. Karen Varghese Ma documented in this encounterSelect [facility]08-04-[facility]22 History of Present illness Narrative* Rosemary Agustin APRN.JERI - 06/24/2022 3:32 PM EDT Chief Complaint [...] DROPS Rosemary Agustin APRN.CNP documented in this encounterSelect [facility] [place]-04-2022 Miscellaneous Notes* Telephone Encounter - Carly Manriquez Ma - 06/24/2022 12:56 PM EDT Spoke to patient and scheduled for today Carly Manriquez Ma documented in this encounterSelect [facility] [place]08-01-2022 Instructions* Patient Instructions* Inna Roque APRN.OIL AND G[employer] DRAFTER - 06/21/2022 2:34 PM EDT Ear Infection [...] contagious, but need treatment. documented in this encounterSelect [facility] [place]08-01-2022 History of Present illness Narrative* Inna Roque APRN.JERI - 06/21/2022 2:33 PM EDT This note was created using Gigalo. Subjective Olga Woodson is a 66 year old male. 66 male with PMH of CVA, AAA, Hyperlipidemia, DM presents with complaints of right ear fullness. 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 The history is provided by the patient. No spanish interpreter/translator was used. Ear Pain This is a [...] was reviewed and agreed upon. Inna Roque APRN.JERI documented in this encounterSelect [facility] [place]07-27-2022 Miscellaneous Notes* Telephone Encounter - Karen Varghese Ma - 06/16/2022 10:59 AM EDT Called Client Services, spoke with Eduard. On hold for 13 minutes. Unable to add A1c. Pt sent [employer] message notifying him of result below from Provider. Made pt aware that incorrect lab was ordered and asked him to come in and complete an A1c. Apologized for inconvenience. Karen Varghese Ma * Telephone Encounter - Lia Markham MD - 06/16/2022 8:04 AM EDT Sugar was 215. Rest of labs ok. Can we add a1c to see where it is. documented in this encounterSelect [facility] [place]07-26-2022 Instructions* Patient Instructions* Isabela Hernández APRN.CNP - 06/15/2022 9:00 AM EDT 1. Start the naproxen twice daily with food X 1 week. Then you can use twice daily as needed. 2. Get the labwork. 3. Get the xray done. 4. Let us know if no better or any worsening. documented in this encounterSelect [facility] [place]07-26-2022 History of Present illness Narrative* Isabela Hernández [...] as needed for worsening/no improvement. Isabela Hernández APRN.JERI documented in this encounterSelect [facility] [place]06-15-2022 Miscellaneous Notes* Telephone Encounter - Alicia Reyes LPN - 05/05/2022 10:55 AM EDT Faxed back as requested. * Telephone Encounter - Lia Markham MD - 05/05/2022 10:13 AM EDT done * Telephone Encounter - Karen Varghese Ma - 05/05/2022 8:59 AM EDT Office received fax from [employer] for certificate of medical necessity for pt DME supplies. Routedto PCP to review and complete. Once complete fax back to [phone]. Karen Varghese Ma documented in this encounterSelect [facility] [place]03-28-2022 Instructions* Patient Instructions* Lia Markham MD - 02/15/2022 11:14 AM EDT Increase humalog to 17 units with each meal and call sugars in two weeks. Watch diet and increase exercise to help as well. documented in this encounterSelect [facility] [place]03-28-2022 History of Present illness Narrative* Lia Markham [...] six months and prn. 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 Neoplasm of uncertain behavi or of skin: R faith face: R/O BCC 10/12/2011 09/21/2016 Actinic Keratosis [...] of this encounter (statuses as of 02/18/2022) [facility] Past illness Narrative* Problem Noted Date Resolved Date 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 Neoplasm of uncertain behavi or of skin: R faith face: R/O BCC 10/12/2011 09/21/2016 Actinic Keratosis [...] of this encounter (statuses as of 03/24/2022) [facility] of Past illness Narrative* Problem Noted Date Resolved Date 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 Neoplasm of uncertain behavi or of skin: R faith face: R/O BCC 10/12/2011 09/21/2016 Actinic Keratosis [...] of this encounter (statuses as of 05/05/2022) [facility] History of Past illness Narrative* Problem Noted Date Resolved Date 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 Neoplasm of uncertain behavi or of skin: R faith face: R/O BCC 10/12/2011 09/21/2016 Actinic Keratosis [...] of this encounter (statuses as of 06/15/2022) [facility] of Past illness Narrative* Problem Noted Date Resolved Date 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 Neoplasm of uncertain behavi or of skin: R faith face: R/O BCC 10/12/2011 09/21/2016 Actinic Keratosis [...] of this encounter (statuses as of 06/16/2022) [facility] of Past illness Narrative* Problem Noted Date Resolved Date 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 Neoplasm of uncertain behavi or of skin: R faith face: R/O BCC 10/12/2011 09/21/2016 Actinic Keratosis [...] of this encounter (statuses as of 06/21/2022) [facility] of Past illness Narrative* Problem Noted Date Resolved Date 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 Neoplasm of uncertain behavi or of skin: R faith face: R/O BCC 10/12/2011 09/21/2016 Actinic Keratosis [...] of this encounter (statuses as of 06/24/2022) [facility] of Past illness Narrative* Problem Noted Date Resolved Date 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 Neoplasm of uncertain behavi or of skin: R faith face: R/O BCC 10/12/2011 09/21/2016 Actinic Keratosis [...] of this encounter (statuses as of 06/24/2022) [facility] of Past illness Narrative* Problem Noted Date Resolved Date 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 Neoplasm of uncertain behavi or of skin: R faith face: R/O BCC 10/12/2011 09/21/2016 Actinic Keratosis [...] of this encounter (statuses as of 06/25/2022) [facility] of Past illness Narrative* Problem Noted Date Resolved Date 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 Neoplasm of uncertain behavi or of skin: R faith face: R/O BCC 10/12/2011 09/21/2016 Actinic Keratosis [...] of this encounter (statuses as of 07/02/2022) [facility] of [facility] Narrative* Problem Noted Date Resolved Date 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 Neoplasm of uncertain behavi or of skin: R faith face: R/O BCC 10/12/2011 09/21/2016 Actinic Keratosis [...] of this encounter (statuses as of 07/05/2022) [facility] of [facility] illness Narrative* Problem Noted Date Resolved Date 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 Neoplasm of uncertain behavi or of skin: R faith face: R/O BCC 10/12/2011 09/21/2016 Actinic Keratosis [...] of this encounter (statuses as of 07/20/2022) [facility] of [facility] Narrative* Problem Noted Date Resolved Date 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 Neoplasm of uncertain behavi or of skin: R faith face: R/O BCC 10/12/2011 09/21/2016 Actinic Keratosis [...] of this encounter (statuses as of 08/18/2022) [facility] of [facility] Narrative* Problem Noted Date Resolved Date 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 Neoplasm of uncertain behavi or of skin: R faith face: R/O BCC 10/12/2011 09/21/2016 Actinic Keratosis [...] of this encounter (statuses as of 08/20/2022) [facility] of Past illness Narrative* Problem Noted Date Resolved Date 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 Neoplasm of uncertain behavi or of skin: R faith face: R/O BCC 10/12/2011 09/21/2016 Actinic Keratosis [...] of this encounter (statuses as of 08/25/2022) [facility] Narrative* Problem Noted Date Resolved Date 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 Neoplasm of uncertain behavi or of skin: R faith face: R/O BCC 10/12/2011 09/21/2016 Actinic Keratosis [...] of this encounter (statuses as of 08/27/2022) [facility] Narrative* Problem Noted Date Resolved Date 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 Neoplasm of uncertain behavi or of skin: R faith face: R/O BCC 10/12/2011 09/21/2016 Actinic Keratosis (Premalignant AK): R nose 09/2209/21/2016 Cutaneous skin tags 10/12/2011 09/21/2016 Dermatofibroma of forearm 10/12/20112015 Actinic skin damage 10/12/2011 09/21/2016 Viral warts, unspecified 08/16/2006 11/01/2 016 Inflamed seborrheic keratosis 08/16/2006 Contact dermatitis and other eczema, due to unspecified cause 08/16/2006 09/19/2012 XEROSIS 08/16/2006 09/21/2016 ERECTILE DYSFUNCTION 04/06/2006 09/21/2016 Overview: Adequate response with viagra Anxiety state, unspecified 08/19/200509/21 Overview: Controlled with effexor Other malaise and fatigue 08/03/20052009 Unspecified disorder of prostate 08/03/2005 08/07/2010 Hyperlipidemia 07/30/2015 documented as of this encounter (statuses as of 08/31/2022) [facility] Narrative* Problem Noted Date Resolved Date 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 Neoplasm of uncertain behavi or of skin: R faith face: R/O BCC 10/12/2011 09/21/2016 Actinic Keratosis [...] of this encounter (statuses as of 08/31/2022) [facility] of Past illness Narrative* Problem Noted Date Resolved Date 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 Neoplasm of uncertain behavi or of skin: R faith face: R/O BCC 10/12/2011 09/21/2016 Actinic Keratosis [...] of this encounter (statuses as of 09/03/2022) [facility] Narrative* Problem Noted Date Resolved Date 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 Neoplasm of uncertain behavi or of skin: R faith face: R/O BCC 10/12/2011 09/21/2016 Actinic Keratosis [...] of this encounter (statuses as of 09/06/2022) [facility] Narrative* Problem Noted Date Resolved Date 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 Neoplasm of uncertain behavi or of skin: R faith face: R/O BCC 10/12/2011 09/21/2016 Actinic Keratosis [...] of this encounter (statuses as of 09/07/2022) [facility] Narrative* Problem Noted Date Resolved Date 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 Neoplasm of uncertain behavi or of skin: R faith face: R/O BCC 10/12/2011 09/21/2016 Actinic Keratosis [...] of this encounter (statuses as of 09/07/2022) [facility] Narrative* Problem Noted Date Resolved Date 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 Neoplasm of uncertain behavi or of skin: R faith face: R/O BCC 10/12/2011 09/21/2016 Actinic Keratosis [...] of this encounter (statuses as of 09/09/2022) [facility] Narrative* Problem Noted Date Resolved Date 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 Neoplasm of uncertain behavi or of skin: R faith face: R/O BCC 10/12/2011 09/21/2016 Actinic Keratosis [...] of this encounter (statuses as of 09/10/2022) [facility] Narrative* Problem Noted Date Resolved Date 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 Neoplasm of uncertain behavi or of skin: R faith face: R/O BCC 10/12/2011 09/21/2016 Actinic Keratosis [...] of this encounter (statuses as of 09/14/2022) [facility] Narrative* Problem Noted Date Resolved Date 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 Neoplasm of uncertain behavi or of skin: R faith face: R/O BCC 10/12/2011 09/21/2016 Actinic Keratosis [...] of this encounter (statuses as of 09/20/2022) [facility] Narrative* Problem Noted Date Resolved Date 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 Neoplasm of uncertain behavi or of skin: R faith face: R/O BCC 10/12/2011 09/21/2016 Actinic Keratosis [...] of this encounter (statuses as of 09/21/2022) [facility] Narrative* Problem Noted Date Resolved Date 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 Neoplasm of uncertain behavi or of skin: R faith face: R/O BCC 10/12/2011 09/21/2016 Actinic Keratosis [...] of this encounter (statuses as of 09/22/2022) [facility] Narrative* Problem Noted Date Resolved Date 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 Neoplasm of uncertain behavi or of skin: R faith face: R/O BCC 10/12/2011 09/21/2016 Actinic Keratosis [...] of this encounter (statuses as of 10/22/2022) [facility] Narrative* Problem Noted Date Resolved Date 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 Neoplasm of uncertain behavi or of skin: R faith face: R/O BCC 10/12/2011 09/21/2016 Actinic Keratosis [...] of this encounter (statuses as of 10/22/2022) [facility] Narrative* Problem Noted Date Resolved Date 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 Neoplasm of uncertain behavi or of skin: R faith face: R/O BCC 10/12/2011 09/21/2016 Actinic Keratosis [...] of this encounter (statuses as of 11/04/2022) [facility] Narrative* Problem Noted Date Resolved Date 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 Neoplasm of uncertain behavi or of skin: R faith face: R/O BCC 10/12/2011 09/21/2016 Actinic Keratosis [...] of this encounter (statuses as of 02/07/2023) [facility] Narrative* Problem Noted Date Resolved Date 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 Neoplasm of uncertain behavi or of skin: R faith face: R/O BCC 10/12/2011 09/21/2016 Actinic Keratosis [...] of this encounter (statuses as of 02/11/2023) [facility] Narrative* Problem Noted Date Resolved Date 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 Neoplasm of uncertain behavi or of skin: R faith face: R/O BCC 10/12/2011 09/21/2016 Actinic Keratosis [...] of this encounter (statuses as of 03/21/2023) [facility] Narrative* Problem Noted Date Resolved Date 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 Neoplasm of uncertain behavi or of skin: R faith face: R/O BCC 10/12/2011 09/21/2016 Actinic Keratosis [...] of this encounter (statuses as of 03/22/2023) [facility] Narrative* Problem Noted Date Resolved Date 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 Neoplasm of uncertain behavi or of skin: R faith face: R/O BCC 10/12/2011 09/21/2016 Actinic Keratosis [...] of this encounter (statuses as of 04/04/2023) [facility] Narrative* Problem Noted Date Resolved Date 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 Neoplasm of uncertain behavi or of skin: R faith face: R/O BCC 10/12/2011 09/21/2016 Actinic Keratosis [...] of this encounter (statuses as of 04/04/2023) [facility] Narrative* Problem Noted Date Diagnosed Date Resolved Date 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 09/21/2016 Neoplasm of uncertain behavi or of skin: R faith face: R/O BCC 10/12/2011 09/21/2016 Actinic Keratosis [...] of this encounter (statuses as of 06/03/2023) [facility] Narrative* Problem Noted Date Diagnosed Date Resolved Date 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 09/21/2016 Neoplasm of uncertain behavi or of skin: R faith face: R/O BCC 10/12/2011 09/21/2016 Actinic Keratosis [...] of this encounter (statuses as of 07/11/2023) [facility] Narrative* Problem Noted Date Diagnosed Date Resolved Date 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 09/21/2016 Neoplasm of uncertain behavi or of skin: R faith face: R/O BCC 10/12/2011 09/21/2016 Actinic Keratosis [...] of this encounter (statuses as of 08/10/2023) [facility] Narrative* Problem Noted Date Diagnosed Date Resolved Date 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 09/21/2016 Neoplasm of uncertain behavi or of skin: R faith face: R/O BCC 10/12/2011 09/21/2016 Actinic Keratosis [...] of this encounter (statuses as of 08/16/2023) [facility] Narrative* Problem Noted Date Diagnosed Date Resolved Date 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 09/21/2016 Neoplasm of uncertain behavi or of skin: R faith face: R/O BCC 10/12/2011 09/21/2016 Actinic Keratosis [...] of this encounter (statuses as of 09/05/2023) [facility] Narrative* Problem Noted Date Diagnosed Date Resolved Date 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 09/21/2016 Neoplasm of uncertain behavi or of skin: R faith face: R/O BCC 10/12/2011 09/21/2016 Actinic Keratosis [...] of this encounter (statuses as of 09/08/2023) [facility] Narrative* Problem Noted Date Diagnosed Date Resolved Date 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 09/21/2016 Neoplasm of uncertain behavi or of skin: R faith face: R/O BCC 10/12/2011 09/21/2016 Actinic Keratosis [...] of this encounter (statuses as of 09/09/2023) [facility] Narrative* Problem Noted Date Diagnosed Date Resolved Date 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 09/21/2016 Neoplasm of uncertain behavi or of skin: R faith face: R/O BCC 10/12/2011 09/21/2016 Actinic Keratosis [...] of this encounter (statuses as of 09/15/2023) [facility] Narrative* Problem Noted Date Diagnosed Date Resolved Date 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 09/21/2016 Neoplasm of uncertain behavi or of skin: R faith face: R/O BCC 10/12/2011 09/21/2016 Actinic Keratosis [...] of this encounter (statuses as of 09/15/2023) [facility] Narrative* Problem Noted Date Diagnosed Date Resolved Date 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 09/21/2016 Neoplasm of uncertain behavi or of skin: R faith face: R/O BCC 10/12/2011 09/21/2016 Actinic Keratosis [...] of this encounter (statuses as of 09/20/2023) [facility] Narrative* Problem Noted Date Diagnosed Date Resolved Date 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 09/21/2016 Neoplasm of uncertain behavi or of skin: R faith face: R/O BCC 10/12/2011 09/21/2016 Actinic Keratosis [...] of this encounter (statuses as of 09/27/2023) [facility] Past [facility] Narrative* Problem Noted Date Diagnosed Date Resolved Date 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 09/21/2016 Neoplasm of uncertain behavi or of skin: R faith face: R/O BCC 10/12/2011 09/21/2016 Actinic Keratosis [...] of this encounter (statuses as of 09/27/2023) [facility] Narrative* Problem Noted Date Diagnosed Date Resolved Date 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 09/21/2016 Neoplasm of uncertain behavi or of skin: R faith face: R/O BCC 10/12/2011 09/21/2016 Actinic Keratosis [...] of this encounter (statuses as of 09/29/2023) [facility] note* Diagnosis Controlled type 2 diabetes mellitus without complication, without long-term current use of insulin ([facility])- Primary Bilateral carotid artery stenosis Occlusion and stenosis of carotid artery without mention of cerebral infarction Abdominal aortic aneurysm (AAA) without rupture ([facility]) Hyperlipidemia, unspecified hyperlipidemia type CALLI (obstructive sleep apnea) Obstructive sleep apnea (adult) (pediatric) [facility] Diagnosis Pain of toe, unspecified laterality- Primary [facility] Diagnosis Controlled type 2 diabetes mellitus without complication, without long-term current use of insulin ([facility])- Primary documented in this encounter [facility] note* Diagnosis Acute otitis media, right- Primary Unspecified otitis media [facility] Diagnosis Acute otitis externa of right ear, unspecified type- Primary documented in this encounter [facility] Diagnosis Pain of toe, unspecified laterality- Primary Controlled type 2 diabetes mellitus without complication, without long-term current use of insulin (HCC) [facility] Diagnosis Controlled type 2 diabetes mellitus [...] unspecified single disease [facility]* Diagnosis CALLI (obstructive sleep apnea)- Primary Obstructive sleep apnea (adult) (pediatric) [facility]* Diagnosis Abdominal aortic aneurysm (AAA) without rupture [facility]* Diagnosis SOB (shortness of breath)- Primary Shortness of breath CALLI (obstructive sleep apnea) Obstructive sleep apnea (adult) (pediatric) Cough, unspecified type Abdominal aortic aneurysm (AAA) without rupture, unspecified part [facility] Diagnosis SOB (shortness of breath) Shortness of breath [facility]* Diagnosis SOB (shortness of breath) Shortness of breath [facility]* Diagnosis Lung fibrosis (HCC) Postinflammatory pulmonary fibrosis SOB (shortness of breath) Shortness of breath [facility] Diagnosis CALLI (obstructive sleep apnea) Obstructive sleep apnea (adult) (pediatric) [facility]* Diagnosis 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 SOB (shortness of breath) Shortness of breath [facility]* Diagnosis At risk for shortness of breath- Primary SOB (shortness of breath) Shortness of breath [facility]* Diagnosis Bronchiectasis without complication (HCC)- Primary Bronchiectasis without acute exacerbation CALLI (obstructive sleep apnea) Obstructive sleep apnea (adult) (pediatric) [facility]* Diagnosis Stage 3 severe COPD by GOLD classification ([facility])- Primary Former cigarette smoker Personal history of tobacco use, presenting hazards to health Class 1 obesity due to excess calories with body mass index (BMI) of 33.0 to 33.9 in adult, unspecified whether serious comorbidity present documented in this encounter [facility] note* Diagnosis Stage 3 severe COPD by GOLD classification ([facility])- Primary Mild depressive disorder Bronchiectasis without complication (HCC) Bronchiectasis without acute exacerbation Controlled type 2 diabetes mellitus without complication, without long-term current use of insulin (HCC) documented in this encounter [facility] note* Diagnosis Controlled type 2 diabetes mellitus without complication, without long-term current use of insulin (HCC) documented in this encounter [facility] note* Diagnosis Post-void dribbling- Primary documented in this encounter [facility] note* Diagnosis Cigarette smoker- Primary Tobacco use disorder documented in this encounter [facility] note* Diagnosis History of stroke with residual [...] Stage 3 severe COPD by GOLD classification ([facility]) History of diabetes mellitus Personal history of other endocrine, metabolic, and immunity disorders Cerebrovascular accident (CVA), unspecified mechanism (HCC) Infarction of thalamus (HCC) CALLI (obstructive sleep apnea) Obstructive sleep apnea (adult) (pediatric) Lung nodules Other nonspecific abnormal finding of lung field documented in this encounter [facility] note* Diagnosis Moderate COPD (chronic obstructive pulmonary disease) (HCC)- Primary Chronic airway obstruction, not elsewhere classified Former cigarette smoker Personal history of tobacco use, presenting hazards to health documented in this encounter [facility] note* Diagnosis Encounter for screening for lung cancer- Primary Former cigarette smoker Personal history of tobacco use, presenting hazards to health documented in this encounter [facility] note* Diagnosis Abdominal aortic aneurysm (AAA) without rupture, unspecified part (HCC) documented in this encounter [facility] note* Diagnosis Personal history of tobacco use, presenting hazards to health- Primary documented in this encounter [facility] note* Diagnosis Cerebrovascular accident (CVA), unspecified mechanism (HCC)- Primary Controlled type 2 diabetes mellitus without complication, without long-term current use of insulin (HCC) History of diabetes mellitus Personal history of other endocrine, metabolic, and immunity disorders Infarction of thalamus (HCC) Hyperlipidemia, unspecified hyperlipidemia type documented in this encounter [facility] note* Diagnosis Controlled type 2 diabetes mellitus without complication, without long-term current use of insulin (HCC) documented in this encounter [facility] note* Diagnosis Controlled type 2 diabetes mellitus without complication, without long-term current use of insulin (HCC)- Primary documented in this encounter [facility] note* Diagnosis Cerebrovascular accident (CVA), unspecified mechanism (HCC)- Primary documented in this encounter [facility] note* Diagnosis Moderate COPD (chronic obstructive pulmonary disease) ([facility])- Primary Chronic airway obstruction, not elsewhere classified documented in this encounter [facility] note* Diagnosis Controlled type 2 diabetes mellitus without complication, without long-term current use of insulin ([facility])- Primary [facility] Diagnostic Procedure Only (Routine) - Closed Specialty Diagnoses / Procedures Referred By Starr yung Referred To Contact XR IMAGING Diagnoses Pain of toe, unspecified laterality Procedures XR TOE AP/LAT/OBL LEFT RADEX TOE MINIMUM 2 VIEWS Isabela Hernández APRN.CNP [address] [place] [address] Xr Imaging Referral ID Status Reason Start Date Expiration Date V isits Requested Visits Authorized [id number] Closed Auto-Generate d Referral 06/15/2022 07/15/2023 1 1 [facility] for referral (narrative)* Outpatient Procedure (Routine) - Authorized Specialty Diagnoses / Procedures Referred By Starr yung Referred To Contact [facility] Diagnoses Bilateral carotid artery stenosis Procedures US CAROTID ARTERIES CHIARA VAS LAB DUPLEX SCAN EXTRACRANIAL ART COMPL BI STUDY Lia Markham MD [address] [place] [address] [facility] [place] [facility] [address] [place] [address] Referral ID Status Reason Start Date Expiration Date Visits Requested Visits Authorized [id number] Authorized Auto-Generat ed Referral 08/20/2022 08/20/2023 1 1 * Diagnostic Procedure Only (Routine) - Authorized Specialty Diagnoses / Procedures Referred By Contac t Referred To Contact US IMAGING Diagnoses Abdominal aortic aneurysm (AAA) without rupture Procedures US DOPPLER AORTA DUP-SCAN ARTL DANIS ABDL/PEL/SCROT&/[place] [address] [place] [address] Us Imaging Referral ID Status Reason Start Date Expiration Date Visits Requested Visits Authorized [id number] Authorized Auto-Generat ed Referral 08/20/2022 09/19/2023 1 1 * Diagnostic Procedure Only (Routine) - Authorized Specialty Diagnoses / Procedures Referred By Contac t Referred To Contact US IMAGING Diagnoses Abdominal aortic aneurysm (AAA) without rupture Procedures US ABD AORTA US RETROPERITONEAL REAL TIME W/IMAGE LIMITED Lia Markham MD [address] [place] [address] Us Imaging Referral ID Status Reason Start Date Expiration Date Visits Requested Visits Authorized [id number] Authorized Auto-Generat ed Referral 08/20/2022 09/19/2023 1 1 [facility] for referral (narrative)* Diagnostic Procedure Only (Routine) - Closed Specialty Diagnoses / Procedures Referred By Contac t Referred To Contact US IMAGING Diagnoses Abdominal aortic aneurysm (AAA) without rupture Procedures US DOPPLER AORTA DUP-SCAN ARTL DANIS ABDL/PEL/SCROT&/RPR ORGN Lia Donnelly MD [address] [place] [address] [facility] Referral ID Status Reason Start Date Expiration Date V isits Requested Visits Authorized [id number] Closed Auto-Generate d Referral 08/20/2022 09/19/2023 1 1 * Diagnostic Procedure Only (Routine) - Closed Specialty Diagnoses / Procedures Referred By Starr t Referred To Contact US IMAGING Diagnoses Abdominal aortic aneurysm (AAA) without rupture Procedures US ABD AORTA US RETROPERITONEAL REAL TIME W/IMAGE LIMITED Lia Markham MD [address] [place] [address] Us Imaging Referral ID Status Reason Start Date Expiration Date V isits Requested Visits Authorized [id number] Closed Auto-Generate d Referral 08/20/2022 09/19/2023 1 1 [facility] for referral (narrative)* Outpatient Procedure (Routine) - Authorized Specialty Diagnoses / Procedures Referred By Starr yung Referred To Contact [facility] Diagnoses SOB (shortness of breath) Procedures SPIROMETRY WITH DILATOR IF OBSTRUCTED BRNCDILAT RSPSE SPMTRY PRE&POST-BRNCDILAT ADMN Lia Markham MD [address] [place] [address] [facility] [place] [address] [place] [address] Referral ID Status Reason Start Date Expiration Date Visits Requested Visits Authorized [id number] Authorized Auto-Generat ed Referral 2 10/03/2023 1 1 * Outpatient Procedure (Routine) - Authorized Specialty Diagnoses / Procedures [facility] Diagnoses SOB (shortness of breath) Procedures LUNG DIFFUSION CAPACITY (DLCO) DIFFUSING CAPACITY Lia Markham MD [address] [place] [address] [address] Referral ID Status Reason Start Date Expiration Date Visits Requested Visits Authorized [id number] Authorized Auto-Generat ed Referral 2 10/03/2023 1 1 * Outpatient Procedure (Routine) - Authorized Specialty Diagnoses / Procedures Referred By Contac t Referred To Contact [facility] Diagnoses SOB (shortness of breath) Procedures LUNG VOLUMES Lia Markham MD [address] [place] [address] [facility] [place] [address] [place] [address] Referral ID Status Reason Start Date Expiration Date Visits Requested Visits Authorized [id number] Authorized Auto-Generat ed Referral 2 10/03/2023 1 1 * Outpatient Procedure (Routine) - Authorized Specialty Diagnoses / Procedures Referred By Contac t Referred To Contact [facility] Diagnoses SOB (shortness of breath) Procedures ECG COMPLETE ECG ROUTINE ECG W/LEAST 12 LDS W/I&R Lia Markham MD [address] [place] [address] [facility] [address] [address] Referral ID Status Reason Start Date Expiration Date Visits Requested Visits Authorized [id number] Authorized Auto-Generat ed Referral 2 09/03/2023 1 1 [facility] for referral (narrative)* Diagnostic Procedure Only (Routine) - Authorized Specialty Diagnoses / Procedures [facility] To [facility] US IMAG[facility] Diagnoses Abdominal aortic aneurysm (AAA) without rupture, unspecified part (HCC) Procedures US DOPPLER AORTA DUP-SCAN ARTL DANIS ABDL/PEL/SCROT&/RPR ORGN LMT Lia Markham MD [address] [place] [address] [place] [address] Referral ID Status Reason Start Date Expiration Date Visits Requested Visits Authorized [id number] Authorized Auto-Generat ed Referral 3 10/13/2024 1 1 * Diagnostic Procedure Only (Routine) - Authorized Specialty Diagnoses / Procedures Referred By Contac t Referred To Contact US IMAGING Diagnoses Abdominal aortic aneurysm (AAA) without rupture, unspecified part (HCC) Procedures US ABD AORTA US RETROPERITONEAL REAL TIME W/IMAGE LIMITED Lia Markham MD [address] [place] [address] [place] [address] Referral ID Status Reason Start Date Expiration Date Visits Requested Visits Authorized [id number] Authorized Auto-Generat ed Referral 3 10/13/2024 1 1 * Consult, Test, Treat (Routine) - Authorized Specialty Diagnoses / Procedures Referred By Starr yung Referred To Contact Neurology Diagnoses Cerebrovascular accident (CVA), unspecified mechanism (HCC) Infarction of thalamus (HCC) Procedures CONSULT TO NEUROLOGY OFFICE/OUTPATIENT [facility] 60-74 MINUTES Lia Markham MD [address] [place] [address] Referral ID Status Reason Start Date Expiration Date Visits Requested Visits Authorized [id number] Authorized PCP Requested Referral 3 09/13/2024 1 1 * Occupational Therapy (Routine) - Authorized Specialty Diagnoses / Procedures Referred By Starr yung Referred To Contact [facility] Diagnoses History of stroke with residual effects Procedures CONSULT TO CARDING MACHINE OPERATOR OCCUPATIONAL THERAPY EVAL HIGH COMPLEX 60 MINS Lia Markham MD [address] [place] [address] [facility] [address] [address] Referral ID Status Reason Start Date Expiration Date Visits Requested Visits Authorized [id number] Authorized PCP Requested Referral Auto-Generate d Referral 3 09/13/2024 99 99 * Speech Therapy (Routine) - Authorized Specialty Diagnoses / Procedures Referred By Starr yung Referred To Contact [facility] Diagnoses History of stroke with residual effects Procedures CONSULT TO SPEECH THERAPY OFFICE/OUTPATIENT [facility] 60-74 MINUTES Lia Markham MD [address] [place] [address] [address] Referral ID Status Reason Start Date Expiration Date Visits Requested Visits Authorized [id number] Authorized Auto-Generat ed Referral 3 09/13/2024 99 99 * Physical Therapy (Routine) - Authorized Specialty Diagnoses / Procedures Referred By Starr t Referred To Contact [facility] Diagnoses History of stroke with residual effects Procedures CONSULT TO PHYSICAL THERAPY PHYSICAL THERAPY EVALUATION HIGH COMPLEX [place] [address] [place], [place] [id number] [address] [address] Referral ID Status Reason Start Date Expiration Date Visits Requested Visits Authorized [id number] Authorized PCP Requested Referral Auto-Generate d Referral 3 09/13/2024 99 99 [facility] for referral (narrative)* Diagnostic Procedure Only (Routine) - Closed Specialty Diagnoses / Procedures Referred By Starr yung Referred To Contact US IMAGING Diagnoses Abdominal aortic aneurysm (AAA) without rupture, unspecified part (HCC) Procedures US DOPPLER AORTA DUP-SCAN ARTL DANIS ABDL/PEL/SCROT&/RPR ORGN LMT Lia Makrham MD [address] [place] [address] Us Imaging [facility] Referral ID Status Reason Start Date Expiration Date V isits Requested Visits Authorized [id number] Closed Auto-Generate d Referral 09/14/2023 10/13/2024 1 1 * Diagnostic Procedure Only (Routine) - Closed Specialty Diagnoses / Procedures Referred By Starr yung Referred To Contact US IMAGING Diagnoses Abdominal aortic aneurysm (AAA) without rupture, unspecified part (HCC) Procedures US ABD AORTA US RETROPERITONEAL REAL TIME W/IMAGE LIMITED Lia Markham MD [address] [place] [address] [place] [address] Referral ID Status Reason Start Date Expiration Date V isits Requested Visits Authorized [id number] Closed Auto-Generate d Referral 09/14/2023 10/13/2024 1 1 [facility] Advance Directives Documents on File Type Date 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 Advance Directive(s) 10/06/2021 6:19 AM Advance Directive(s) 09/15/2021 10:31 AM Advance Directive(s) 06/06/2017 8:13 AM Documents on File Type Date Recorded 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 Advance Directive(s) 10/06/2021 6:19 AM [...] unspecified laterality Procedures CONSULT TO PODIATRY OFFICE/OUTPATIENT [facility] MDM 60-74 MINUTES Lia Markham MD [address] [place] [address] Referral ID Status Reason Start Date Expiration Date Visits Requested Visits Authorized [id number] Authorized PCP Requested Referral 06/25/2022 06/25/2023 1 1 Specialty Diagnoses / Procedures Referred By Contac t Referred To Contact CT IMAGING Diagnoses Lung fibrosis (HCC) SOB (shortness of breath) Procedures CT CHEST WO IVCON DIAGNOSTIC COMPUTED TOMOGRAPHY THORAX W/O CNTRST Lia Markham MD [address] [place] [address] Referral ID Status Reason Start Date Expiration Date V isits Requested Visits Authorized [id number] Closed Auto-Generate d Referral 09/03/2022 10/03/2023 1 1 Specialty Diagnoses / Procedures Referred By Contac t Referred To Contact [facility] Diagnoses SOB (shortness of breath) Procedures CONSULT TO PULM/CRITICAL CARE OFFICE/OUTPATIENT [facility] MDM 60-74 MINUTES Lia Markham MD [address] [place] [address] Referral ID Status Reason Start Date Expiration Date Visits Requested Visits Authorized [id number] Authorized PCP Requested Referral 2 09/07/2023 1 1 Specialty Diagnoses / Procedures Referred By Contac t Referred To Contact Urology Diagnoses Post-void dribbling Procedures CONSULT TO UROLOGY Lia Markham MD [address] [place] [address] Referral ID Status Reason Start Date Expiration Date Visits Requested Visits Authorized [id number] Ref Not Required PCP Requested Referral 02/11/2023 02/11/2024 1 1 Specialty Diagnoses / Procedures Referred By Contac t Referred To Contact CT IMAGING Diagnoses Former cigarette smoker Procedures CT LUNG SCREEN WO IVCON COMPUTED TOMOGRAPHY THORAX LW DOSE LNG CA SCR C- Andres 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, 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 [address] [place] [id number] Imaging [facility] Referral ID Status Reason Start Date Expiration Date Visits Requested Visits Authorized [id number] Authorized Auto-Generat ed Referral 3 10/19/2024 1 1 Specialty Diagnoses / Procedures Referred By Contac t Referred To Contact CT IMAGING Diagnoses Personal history of tobacco use, presenting hazards to health Procedures CT LUNG SCREEN WO IVCON COMPUTED TOMOGRAPHY THORAX LW DOSE LNG CA SCR C- Angeles [facility], 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 [address] [place] [address] [place] [address] Referral ID Status Reason Start Date Expiration Date Visits Requested Visits Authorized [id number] Pending Review Auto-Generat ed Referral 09/29/2023 10/28/2024 [...] or prosecute any alcohol or drug abuse patient.[facility] the event this information is protected by the Federal Confidentiality of Alcohol and Drug Abuse Patient Records regulations: The Federal rules restrict any use of the information to criminally investigate or prosecute any alcohol or drug abuse patient.[facility] the event this information is protected by the Federal Confidentiality of Alcohol and Drug Abuse Patient Records regulations: The Federal rules restrict any use of the information to criminally investigate or prosecute any alcohol or drug abuse patient.[facility] the event this information is protected by the Federal Confidentiality of Alcohol and Drug Abuse Patient Records regulations: The Federal rules restrict any use of the information to criminally investigate or prosecute any alcohol or drug abuse patient.[facility] the event this information is protected by the Federal Confidentiality of Alcohol and Drug Abuse Patient Records regulations: The Federal rules restrict any use of the information to criminally investigate or prosecute any alcohol or drug abuse patient.[facility] the event this information is protected by the Federal Confidentiality of Alcohol and Drug Abuse Patient Records regulations: The Federal rules restrict any use of the information to criminally investigate or prosecute any alcohol or drug abuse patient.[facility] the event this information is protected by the Federal Confidentiality of Alcohol and Drug Abuse Patient Records regulations: The Federal rules restrict any use of the information to criminally investigate or prosecute any alcohol or drug abuse patient.[facility] the event this information is protected by the Federal Confidentiality of Alcohol and Drug Abuse Patient Records regulations: The Federal rules restrict any use of the information to criminally investigate or prosecute any alcohol or drug abuse patient.[facility] the event this information is protected by the Federal Confidentiality of Alcohol and Drug Abuse Patient Records regulations: The Federal rules restrict any use of the information to criminally investigate or prosecute any alcohol or drug abuse patient.[facility] the event this information is protected by the Federal Confidentiality of Alcohol and Drug Abuse Patient Records regulations: The Federal rules restrict any use of the information to criminally investigate or prosecute any alcohol or drug abuse patient.[facility] the event this information is protected by the Federal Confidentiality of Alcohol and Drug Abuse Patient Records regulations: The Federal rules restrict any use of the information to criminally investigate or prosecute any alcohol or drug abuse patient.[facility] the event this information is protected by the Federal Confidentiality of Alcohol and Drug Abuse Patient Records regulations: The Federal rules restrict any use of the information to criminally investigate or prosecute any alcohol or drug abuse patient.[facility] the event this information is protected by the Federal Confidentiality of Alcohol and Drug Abuse Patient Records regulations: The Federal rules restrict any use of the information to criminally investigate or prosecute any alcohol or drug abuse patient.[facility] the event this information is protected by the Federal Confidentiality of Alcohol and Drug Abuse Patient Records regulations: The Federal rules restrict any use of the information to criminally investigate or prosecute any alcohol or drug abuse patient.[facility] the event this information is protected by the Federal Confidentiality of Alcohol and Drug Abuse Patient Records regulations: The Federal rules restrict any use of the information to criminally investigate or prosecute any alcohol or drug abuse patient.[facility]on[facility] the event this information is protected by the Federal Confidentiality of Alcohol and Drug Abuse Patient Records regulations: The Federal rules restrict any use of the information to criminally investigate or prosecute any alcohol or drug abuse patient.[facility]on[facility] the event this information is protected by the Federal Confidentiality of Alcohol and Drug Abuse Patient Records regulations: The Federal rules restrict any use of the information to criminally investigate or prosecute any alcohol or drug abuse patient.[facility]on[facility] the event this information is protected by the Federal Confidentiality of Alcohol and Drug Abuse Patient Records regulations: The Federal rules restrict any use of the information to criminally investigate or prosecute any alcohol or drug abuse patient.[facility]on[facility] the event this information is protected by the Federal Confidentiality of Alcohol and Drug Abuse Patient Records regulations: The Federal rules restrict any use of the information to criminally investigate or prosecute any alcohol or drug abuse patient.[facility]onIn the event this information is protected by the Federal Confidentiality of Alcohol and Drug Abuse Patient Records regulations: The Federal rules restrict any use of the information to criminally investigate or prosecute any alcohol or drug abuse patient.[facility]onIn the event this information is protected by the Federal Confidentiality of Alcohol and Drug Abuse Patient Records regulations: The Federal rules restrict any use of the information to criminally investigate or prosecute any alcohol or drug abuse patient.[facility]onIn the event this information is protected by the Federal Confidentiality of Alcohol and Drug Abuse Patient Records regulations: The Federal rules restrict any use of the information to criminally investigate or prosecute any alcohol or drug abuse patient.[facility]onIn the event this information is protected by the Federal Confidentiality of Alcohol and Drug Abuse Patient Records regulations: The Federal rules restrict any use of the information to criminally investigate or prosecute any alcohol or drug abuse patient.[facility]onIn the event this information is protected by the Federal Confidentiality of Alcohol and Drug Abuse Patient Records regulations: The Federal rules restrict any use of the information to criminally investigate or prosecute any alcohol or drug abuse patient.[facility]onIn the event this information is protected by the Federal Confidentiality of Alcohol and Drug Abuse Patient Records regulations: The Federal rules restrict any use of the information to criminally investigate or prosecute any alcohol or drug abuse patient.[facility]onIn the event this information is protected by the Federal Confidentiality of Alcohol and Drug Abuse Patient Records regulations: The Federal rules restrict any use of the information to criminally investigate or prosecute any alcohol or drug abuse patient.[facility]onIn the event this information is protected by the Federal Confidentiality of Alcohol and Drug Abuse Patient Records regulations: The Federal rules restrict any use of the information to criminally investigate or prosecute any alcohol or drug abuse patient.[facility]onIn the event this information is protected by the Federal Confidentiality of Alcohol and Drug Abuse Patient Records regulations: The Federal rules restrict any use of the information to criminally investigate or prosecute any alcohol or drug abuse patient.[facility]onIn the event this information is protected by the Federal Confidentiality of Alcohol and Drug Abuse Patient Records regulations: The Federal rules restrict any use of the information to criminally investigate or prosecute any alcohol or drug abuse patient.[facility]onIn the event this information is protected by the Federal Confidentiality of Alcohol and Drug Abuse Patient Records regulations: The Federal rules restrict any use of the information to criminally investigate or prosecute any alcohol or drug abuse patient.[facility]onIn the event this information is protected by the Federal Confidentiality of Alcohol and Drug Abuse Patient Records regulations: The Federal rules restrict any use of the information to criminally investigate or prosecute any alcohol or drug abuse patient.[facility]onIn the event this information is protected by the Federal Confidentiality of Alcohol and Drug Abuse Patient Records regulations: The Federal rules restrict any use of the information to criminally investigate or prosecute any alcohol or drug abuse patient.[facility]onIn the event this information is protected by the Federal Confidentiality of Alcohol and Drug Abuse Patient Records regulations: The Federal rules restrict any use of the information to criminally investigate or prosecute any alcohol or drug abuse patient.[facility]onIn the event this information is protected by the Federal Confidentiality of Alcohol and Drug Abuse Patient Records regulations: The Federal rules restrict any use of the information to criminally investigate or prosecute any alcohol or drug abuse patient.[facility]onIn the event this information is protected by the Federal Confidentiality of Alcohol and Drug Abuse Patient Records regulations: The Federal rules restrict any use of the information to criminally investigate or prosecute any alcohol or drug abuse patient.[facility]onIn the event this information is protected by the Federal Confidentiality of Alcohol and Drug Abuse Patient Records regulations: The Federal rules restrict any use of the information to criminally investigate or prosecute any alcohol or drug abuse patient.[facility]onIn the event this information is protected by the Federal Confidentiality of Alcohol and Drug Abuse Patient Records regulations: The Federal rules restrict any use of the information to criminally investigate or prosecute any alcohol or drug abuse patient.[facility]onIn the event this information is protected by the Federal Confidentiality of Alcohol and Drug Abuse Patient Records regulations: The Federal rules restrict any use of the information to criminally investigate or prosecute any alcohol or drug abuse patient.[facility]onIn the event this information is protected by the Federal Confidentiality of Alcohol and Drug Abuse Patient Records regulations: The Federal rules restrict any use of the information to criminally investigate or prosecute any alcohol or drug abuse patient.[facility]onIn the event this information is protected by the Federal Confidentiality of Alcohol and Drug Abuse Patient Records regulations: The Federal rules restrict any use of the information to criminally investigate or prosecute any alcohol or drug abuse patient.[facility]onIn the event this information is protected by the Federal Confidentiality of Alcohol and Drug Abuse Patient Records regulations: The Federal rules restrict any use of the information to criminally investigate or prosecute any alcohol or drug abuse patient.[facility]onIn the event this information is protected by the Federal Confidentiality of Alcohol and Drug Abuse Patient Records regulations: The Federal rules restrict any use of the information to criminally investigate or prosecute any alcohol or drug abuse patient.[facility]onIn the event this information is protected by the Federal Confidentiality of Alcohol and Drug Abuse Patient Records regulations: The Federal rules restrict any use of the information to criminally investigate or prosecute any alcohol or drug abuse patient.[facility]onIn the event this information is protected by the Federal Confidentiality of Alcohol and Drug Abuse Patient Records regulations: The Federal rules restrict any use of the information to criminally investigate or prosecute any alcohol or drug abuse patient.[facility]onIn the event this information is protected by the Federal Confidentiality of Alcohol and Drug Abuse Patient Records regulations: The Federal rules restrict any use of the information to criminally investigate or prosecute any alcohol or drug abuse patient.[facility]onIn the event this information is protected by the Federal Confidentiality of Alcohol and Drug Abuse Patient Records regulations: The Federal rules restrict any use of the information to criminally investigate or prosecute any alcohol or drug abuse patient.[facility]onIn the event this information is protected by the Federal Confidentiality of Alcohol and Drug Abuse Patient Records regulations: The Federal rules restrict any use of the information to criminally investigate or prosecute any alcohol or drug abuse patient.[facility]onIn the event this information is protected by the Federal Confidentiality of Alcohol and Drug Abuse Patient Records regulations: The Federal rules restrict any use of the information to criminally investigate or prosecute any alcohol or drug abuse patient.[facility]onIn the event this information is protected by the Federal Confidentiality of Alcohol and Drug Abuse Patient Records regulations: The Federal rules restrict any use of the information to criminally investigate or prosecute any alcohol or drug abuse patient.[facility]onIn the event this information is protected by the Federal Confidentiality of Alcohol and Drug Abuse Patient Records regulations: The Federal rules restrict any use of the information to criminally investigate or prosecute any alcohol or drug abuse patient.[facility]onIn the event this information is protected by the Federal Confidentiality of Alcohol and Drug Abuse Patient Records regulations: The Federal rules restrict any use of the information to criminally investigate or prosecute any alcohol or drug abuse patient.[facility]onIn the event this information is protected by the Federal Confidentiality of Alcohol and Drug Abuse Patient Records regulations: The Federal rules restrict any use of the information to criminally investigate or prosecute any alcohol or drug abuse patient.[facility]onIn the event this information is protected by the Federal Confidentiality of Alcohol and Drug Abuse Patient Records regulations: The Federal rules restrict any use of the information to criminally investigate or prosecute any alcohol or drug abuse patient.[facility]onIn the event this information is protected by the Federal Confidentiality of Alcohol and Drug Abuse Patient Records regulations: The Federal rules restrict any use of the information to criminally investigate or prosecute any alcohol or drug abuse patient.[facility]onIn the event this information is protected by the Federal Confidentiality of Alcohol and Drug Abuse Patient Records regulations: The Federal rules restrict any use of the information to criminally investigate or prosecute any alcohol or drug abuse patient.[facility]onIn the event this information is protected by the Federal Confidentiality of Alcohol and Drug Abuse Patient Records regulations: The Federal rules restrict any use of the information to criminally investigate or prosecute any alcohol or drug abuse patient.[facility]onIn the event this information is protected by the Federal Confidentiality of Alcohol and Drug Abuse Patient Records regulations: The Federal rules restrict any use of the information to criminally investigate or prosecute any alcohol or drug abuse patient.[facility]onIn the event this information is protected by the Federal Confidentiality of Alcohol and Drug Abuse Patient Records regulations: The Federal rules restrict any use of the information to criminally investigate or prosecute any alcohol or drug abuse patient.[facility]onIn the event this information is protected by the Federal Confidentiality of Alcohol and Drug Abuse Patient Records regulations: The Federal rules restrict any use of the information to criminally investigate or prosecute any alcohol or drug abuse patient.[facility]onIn the event this information is protected by the Federal Confidentiality of Alcohol and Drug Abuse Patient Records regulations: The Federal rules restrict any use of the information to criminally investigate or prosecute any alcohol or drug abuse patient.[facility]onIn the event this information is protected by the Federal Confidentiality of Alcohol and Drug Abuse Patient Records regulations: The Federal rules restrict any use of the information to criminally investigate or prosecute any alcohol or drug abuse patient.[facility]onIn the event this information is protected by the Federal Confidentiality of Alcohol and Drug Abuse Patient Records regulations: The Federal rules restrict any use of the information to criminally investigate or prosecute any alcohol or drug abuse patient.[facility] Reason for Visit (unrecogniz ed section and [...] REAL TIME W/IMAGE LIMITED Lia Markham MD [address] [place] [address] [facility] Referral ID Status Reason Start Date Expiration Date V isits Requested Visits Authorized [id number] Closed Auto-Generate d Referral 08/20/2022 09/19/2023 1 1 Reason Comments Breathing Problem Reason Comments Shortness of Breath SOB on exertion X 1 yr Reason Comments Spirometry Specialty Diagnoses / Procedures Referred By Contac t Referred To Contact [facility] Diagnoses SOB (shortness of breath) Procedures SPIROMETRY WITH DILATOR IF OBSTRUCTED BRNCDILAT RSPSE SPMTRY PRE&POST-BRNCDILAT ADMN Lia Markham MD [address] [place] [id number] [facility] [place] [facility] [place] [address] Referral ID Status Reason Start Date Expiration Date V isits Requested Visits Authorized [id number] Closed Auto-Generate d Referral 09/03/2022 10/03/2023 1 1 Specialty Diagnoses / Procedures Referred By Contac t Referred To Contact [facility] Diagnoses SOB (shortness of breath) Procedures LUNG VOLUMES Lia Markham MD [address] [place] [address] [facility] [place] [facility] [place] [address] Referral ID Status Reason Start Date Expiration Date V isits Requested Visits Authorized [id number] Closed Auto-Generate d Referral 09/03/2022 10/03/2023 [address] Specialty Diagnoses / Procedures Referred By Contac t Referred To Contact CT IMAGING Diagnoses Lung fibrosis (HCC) SOB (shortness of breath) Procedures CT CHEST WO IVCON DIAGNOSTIC COMPUTED TOMOGRAPHY THORAX W/O CNTRST Lia Markham MD [address] [place] [address] Ct Imaging Referral ID Status Reason Start Date Expiration Date V isits Requested Visits Authorized [id number] Closed Auto-Generate d Referral 09/03/2022 10/03/2023 1 1 Reason Comments Results Reason Comments Consult Reason Comments fax request Reason Comments New Patient Dyspnea Shortness of Breath Specialty Diagnoses / Procedures Referred By Contac t Referred To Contact Pulmonary and Critical Care Medicine Diagnoses SOB (shortness of breath) Procedures CONSULT TO PULM/CRITICAL CARE OFFICE/OUTPATIENT NEW HIGH MDM 60-74 MINUTES Lia Markham MD [address] [place] [address] Referral ID Status Reason Start Date Expiration Date V isits Requested Visits Authorized [id number] Closed PCP Requested Referral 09/07/2022 09/07/2023 1 [...] TIME W/IMAGE LIMITED Lia Markham MD [address] [place] [address] [place] [address] Referral ID Status Reason Start Date Expiration Date V isits Requested Visits Authorized [id number] Closed Auto-Generate d Referral 09/14/2023 10/13/2024 1 1 Reason Comments Patient Update Care Teams (unrecognized sec tion and content) Channel Account Manager Relationship Specialty Start Date End Date Lia Markham MD [address] [place] [address] PCP - General Family Practice 11/7/12 Channel Account Manager Relationship Specialty Start Date End Date Lia Markham MD [address] [place] [address] PCP - General Family Practice 09/27/12 Channel Account Manager Relationship Specialty Start Date End Date Lia Markham MD [address] [place] [address] PCP - General Family Practice 09/27/12 Channel Account Manager Relationship Specialty Start Date End Date Lia Markham MD [address] [place] [address] PCP - General Family Practice 09/27/12 Channel Account Manager Relationship Specialty Start Date End Date Lia Markham MD [address] [place] [address] PCP - General Family Practice 09/27/12 Channel Account Manager Relationship Specialty Start Date End Date Lia Markham MD [address] [place] [address] PCP - General Family Practice 09/27/12 Channel Account Manager Relationship Specialty Start Date End Date Lia Markham MD [address] [place] [address] PCP - General Family Practice 09/27/12 Channel Account Manager Relationship Specialty Start Date End Date Lia Markham MD [address] [place] [address] PCP - General Family Practice 09/27/12 Channel Account Manager Relationship Specialty Start Date End Date Lia Markham MD [address] [place] [address] PCP - General Family Practice 09/27/12 Channel Account Manager Relationship Specialty Start Date End Date Lia Markham MD [address] [place] [address] PCP - General Family Medicine 09/27/12 Channel Account Manager Relationship Specialty Start Date End Date Lia Markham MD [address] [place] [address] PCP - General Family Medicine 09/27/12 Channel Account Manager Relationship Specialty Start Date End Date Lia Markham MD [address] [place] [address] PCP - General Family Medicine 09/27/12 Channel Account Manager Relationship Specialty Start Date End Date Lia Markham MD [address] [place] [address] PCP - General Family Medicine 09/27/12 Channel Account Manager Relationship Specialty Start Date End Date Lia Markham MD [address] [place] [address] PCP - General Family Medicine 09/27/12 Channel Account Manager Relationship Specialty Start Date End Date Lia Markham MD [address] [place] [address] PCP - General Family Medicine 09/27/12 Channel Account Manager Relationship Specialty Start Date End Date Lia Markham MD [address] [place] [address] PCP - General Family Medicine 09/27/12 Channel Account Manager Relationship Specialty Start Date End Date Lia Markham MD [address] [place] [address] PCP - General Family Medicine 09/27/12 Channel Account Manager Relationship Specialty Start Date End Date iLa Markham MD [address] [place] [address] PCP - General Family Medicine 09/27/12 Channel Account Manager Relationship Specialty Start Date End Date Lia Markham MD [address] [place] [address] PCP - General Family Medicine 09/27/12 Channel Account Manager Relationship Specialty Start Date End Date Lia Markham MD [address] [place] [address] PCP - General Family Medicine 09/27/12 Channel Account Manager Relationship Specialty Start Date End Date Lia Markham MD [address] [place] [address] PCP - General Family Medicine 09/27/12 Channel Account Manager Relationship Specialty Start Date End Date Lia Markham MD [address] [place] [address] PCP - General Family Medicine 09/27/12 Channel Account Manager Relationship Specialty Start Date End Date Lia Markham MD [address] [place] [address] PCP - General Family Medicine 09/27/12 Channel Account Manager Relationship Specialty Start Date End Date Lia Markham MD [address] [place] [address] PCP - General Family Medicine 09/27/12 Channel Account Manager Relationship Specialty Start Date End Date Lia Markham MD [address] [place] [address] PCP - General Family Medicine 09/27/12 Channel Account Manager Relationship Specialty Start Date End Date Lia Markham MD [address] [place] [address] PCP - General Family Medicine 09/27/12 Channel Account Manager Relationship Specialty Start Date End Date Lia Markham MD [address] [place] [address] PCP - General Family Medicine 09/27/12 Channel Account Manager Relationship Specialty Start Date End Date Lia Markham MD [address] [place] [address] PCP - General Family Medicine 09/27/12 Channel Account Manager Relationship Specialty Start Date End Date Lia Markham MD [address] [place] [address] PCP - General Family Medicine 09/27/12 Channel Account Manager Relationship Specialty Start Date End Date Lia Markham MD [address] [place] [address] PCP - General Family Medicine 09/27/12 Channel Account Manager Relationship Specialty Start Date End Date Lia Markham MD [address] [place] [address] PCP - General Family Medicine 09/27/12 Channel Account Manager Relationship Specialty Start Date End Date Lia Markham MD [address] [place] [address] PCP - General Family Medicine 09/27/12 Channel Account Manager Relationship Specialty Start Date End Date Lia Markham MD [address] [place] [address] PCP - General Family Medicine 09/27/12 Channel Account Manager Relationship Specialty Start Date End Date Lia Markham MD [address] [place] [address] PCP - General Family Medicine 09/27/12 Channel Account Manager Relationship Specialty Start Date End Date Lia Markham MD [address] [place] [address] PCP - General Family Medicine 09/27/12 Channel Account Manager Relationship Specialty Start Date End Date Lia Markham MD [address] [place] [address] PCP - General Family Medicine 09/27/12 Carly Banks MD [address] [place] [address] Pulmonary and Critical Care Medicine 09/20/23 Channel Account Manager Relationship Specialty Start Date End Date Lia Markham MD [address] [place] [address] PCP - General Family Medicine 09/27/12 Carly Banks MD [address] [place] [address] Pulmonary and Critical Care Medicine 09/20/23 Channel Account Manager Relationship Specialty Start Date End Date Lia Markham MD [address] [place] [address] PCP - General Family Medicine 09/27/12 Carly Banks MD [address] [place] [address] Pulmonary and Critical Care Medicine 09/20/23 Channel Account Manager Relationship Specialty Start Date End Date Lia Markham MD [address] [place] [address] PCP - General Family Medicine 09/27/12 Carly Banks MD [address] [place] [address] Pulmonary and Critical Care Medicine 09/20/23 Channel Account Manager Relationship Specialty Start Date End Date Lia Markham MD [address] [place] [address] PCP - General Family Medicine 09/27/12 Carly Banks MD [address] [place] [address] Pulmonary and Critical Care Medicine 09/20/23 Channel Account Manager Relationship Specialty Start Date End Date Lia Markham MD [address] [place] [address] PCP - General Family Medicine 09/27/12 Carly Banks MD [address] [place] [address] Pulmonary and Critical Care Medicine 09/20/23 Channel Account Manager Relationship Specialty Start Date End Date Lia Markham MD [address] [place] [address] PCP - General Family Medicine 09/27/12 Carly Banks MD [address] [place] [address] Pulmonary and Critical Care Medicine 09/20/23 Channel Account Manager Relationship Specialty Start Date End Date Lia Markham MD [address] [place] [address] PCP - General Family Medicine 09/27/12 Carly Banks MD [address] [place] [address] Pulmonary and Critical Care Medicine 09/20/23 Channel Account Manager Relationship Specialty Start Date End Date Lia Markham MD [address] [place] [address] PCP - General Family Medicine 09/27/12 Carly Banks MD [address] [place], [place] [address] [phone] Pulmonary and Critical Care Medicine 09/20/23 Channel Account Manager Relationship Specialty Start Date End Date Lia Markham MD [address] [facility] [place] [address] PCP - General Family Medicine 09/27/12 Carly Banks MD [address] [place] [address] Pulmonary and Critical Care Medicine 09/20/23 Channel Account Manager Relationship Specialty Start Date End Date Lia Markham MD [address] [facility] [place] [place] [address] PCP - General Family Medicine 09/27/12 Carly Banks MD [address] [place] [address] Pulmonary and Critical Care Medicine 09/20/23 Channel Account Manager Relationship Specialty Start Date End Date Lia Markham MD [address] [place] [address] PCP - General Family Medicine 09/27/12 Carly Banks MD [address] [place], [place] [address] [phone] Pulmonary and Critical Care Medicine 09/20/23 (unrecognized [...] BE BASED ON THE PRIMARY CLINICAL RECORDS. [facility] provides no warranty or guarantee of the accuracy or completeness of information in this document.
[2024-01-05] MEDS: Budesonide Respules 0.5 MG/2 ML AMPUL.NEB. INHALATION (19:49)
[2024-01-05] MEDS: Ipratropium/Albuterol Sulfate 3 ML AMPUL.NEB INHALATION (19:49)
--- OUTSIDE RECORDS SUMMARY | 2024-01-05 20:38 | XMS RPT_ITS | CCD ---
Author Name Unknown Address [id number] [place] [address] Organization [facility] Care Team Providers Care Hyperbaric Technologist Name Role Phone Shahrzad LAMBERT, Lia Babin Primary Care Provider Lia Markham MD Primary Care Provider Carly Banks MD Unavailable CARLY BANKS Referring Unavailable ANDRES DOTSON Attending Unavailable LIA MARKHAM Primary Care Unavailable SHAHRZAD, LIA Babin Primary Care Unavailable SHAHRZAD, LIA Babin Attending Unavailable SHAHRZAD, LIA Babni Primary Care Unavailable SHAHRZAD, LIA Babin Attending Unavailable SHAHRZAD, LIA Babin Primary Care Unavailable SHAHRAZD, LIA Babin Referring Unavailable SHAHRZAD, LIA Babin Primary Care Unavailable SHAHRZAD, LIA Babin Referring Unavailable SHAHRZAD, LIA Babin Primary Care Unavailable SHAHRZAD, LIA Babin Attending Unavailable SHAHRZAD, LIA Babin Primary Care Unavailable SHAHRZAD, LIA Babin Referring Unavailable SHAHRZAD, LIA Babin Attending Unavailable SHAHRZAD, LIA Babin Primary Care Unavailable SHAHRZAD, ILA Babin Primary Care Unavailable SHAHRZAD, LIA Babin [...] metFORMIN; Translations: [METFORMIN] Drug Allergy 06-29-2011 Diarrhea [facility] Work Phone: (5 sources) Penicillins; Translations: [PENICILLINS] Propensity to adverse reactions 07-15-2005 [facility] Work Phone: (20 sources) Penicillins Propensity to adverse reactions 07-15-2005 [facility] Work Phone: Medications Current Medications Medication [...] 182.2 cm Lia Markham MD Work Phone: [facility] 10-05-2023 11:42-0500 Body weight 102.88 kg Lia Markham MD Work Phone: [facility] 10-05-2023 11:42-0500 Diastolic blood pressure 66 mm[Hg] Lia Markham MD Work Phone: [facility] 10-05-2023 11:42-0500 Heart rate 96 /min Lia Markham MD Work Phone: [facility] 10-05-2023 11:42-0500 Systolic blood pressure 102 mm[Hg] Lia Markham MD Work Phone: [facility] 09-20-2023 10:36-0400 Body weight 102.06 kg Andres Dixon SUBSTANCE ADDICTION COORDINATOR.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 Work Phone: [facility] 09-20-2023 10:36-0400 Diastolic blood pressure 82 mm[Hg] Andres Dixon SUBSTANCE ADDICTION COORDINATOR.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 Work Phone: [facility] 09-20-2023 10:36-0400 Heart rate 100 /min Andres Dixon SUBSTANCE ADDICTION COORDINATOR.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 Work Phone: [facility] 09-20-2023 10:36-0400 SaO2% (BldA) [Mass fraction] 96 % Andres Dixon SUBSTANCE ADDICTION COORDINATOR.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 Work Phone: [facility] 09-20-2023 10:36-0400 Systolic blood pressure 144 mm[Hg] Andres Dixon SUBSTANCE ADDICTION COORDINATOR.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 Work Phone: [facility] 09-15-2023 13:24-0400 Body height 182.2 cm Yoly Ornelas PA-C Work Phone: [facility] 09-15-2023 13:24-0400 Body weight 104.78 kg Yoly Ornelas PA-C Work Phone: [facility] 09-15-2023 13:24-0400 Diastolic blood pressure 74 mm[Hg] Yoly Ornelas PA-C Work Phone: [facility] 09-15-2023 13:24-0400 Heart rate 78 /min Yoly Ilya PA-C Work Phone: [facility] 09-15-2023 13:24-0400 Respiratory rate 16 /min Yoly Ilya PA-C Work Phone: [facility] 09-15-2023 13:24-0400 SaO2% (BldA) [Mass fraction] 96 % Yoly Ilya PA-C Work Phone: [facility] 09-15-2023 13:24-0400 Systolic blood pressure 130 mm[Hg] Yoly Ilya PA-C Work Phone: [facility] 09-14-2023 14:24-0400 Body height 182.2 cm Lia Markham MD Work Phone: [facility] 09-14-2023 14:24-0400 Body weight 105.14 kg Lia Markham MD Work Phone: [facility] 09-14-2023 14:24-0400 Diastolic blood pressure 56 mm[Hg] Lia Markham MD Work Phone: [facility] 09-14-2023 14:24-0400 Heart rate 84 /min Lia Markham MD Work Phone: [facility] 09-14-2023 14:24-0400 SaO2% (BldA) [Mass fraction] 95 % Lia Markham MD Work Phone: [facility] 09-14-2023 14:24-0400 Systolic blood pressure 108 mm[Hg] Lia Markham MD Work Phone: [facility] 10-22-2022 14:16-0500 Body height 182.2 cm Lia Markham MD Work Phone: [facility] 10-22-2022 14:16-0500 Body weight 109.14 kg Lia Markham MD Work Phone: [facility] 10-22-2022 14:16-0500 Diastolic blood pressure 66 mm[Hg] Lia Markham MD Work Phone: [facility] 10-22-2022 14:16-0500 Heart rate 87 /min Lia Markham MD Work Phone: [facility] 10-22-2022 14:16-0500 SaO2% (BldA) [Mass fraction] 95 % Lia Markham MD Work Phone: [facility] 10-22-2022 14:16-0500 Systolic blood pressure 134 mm[Hg] Lia Markham MD Work Phone: [facility] 10-22-2022 08:03-0500 Body weight 109.77 kg Carly Banks MD Work Phone: [facility] 10-22-2022 08:03-0500 Diastolic blood pressure 78 mm[Hg] Carly Banks MD Work Phone: [facility] 10-22-2022 08:03-0500 Heart rate 97 /min Carly Banks MD Work Phone: [facility] 10-22-2022 08:03-0500 Respiratory rate 17 /min Carly Banks MD Work Phone: [facility] 10-22-2022 08:03-0500 SaO2% (BldA) [Mass fraction] 96 % Carly Banks MD Work Phone: [facility] 10-22-2022 08:03-0500 Systolic blood pressure 144 mm[Hg] Carly Banks MD Work Phone: [facility] 09-06-2022 10:33-0400 Body height 182.2 cm Respiratory Wstr Work Phone: [facility] 09-06-2022 10:33-0400 Body weight 110.18 kg Respiratory Wstr Work Phone: [facility] 09-06-2022 10:33-0400 Heart rate 73 /min Respiratory Wstr Work Phone: [facility] 09-06-2022 10:33-0400 Respiratory rate 14 /min Respiratory Wstr Work Phone: [facility] 09-06-2022 10:33-0400 SaO2% (BldA) [Mass fraction] 94 % Respiratory Wstr Work Phone: [facility] 09-03-2022 09:06-0400 Body height 182.9 cm Lia Markham MD Work Phone: [facility] 09-03-2022 09:06-0400 Body weight 110.5 kg Lia Markham MD Work Phone: [facility] 09-03-2022 09:06-0400 Diastolic blood pressure 60 mm[Hg] Lia Markham MD Work Phone: [facility] 09-03-2022 09:06-0400 Heart rate 84 /min Lia Markham MD Work Phone: [facility] 09-03-2022 09:06-0400 SaO2% (BldA) [Mass fraction] 96 % Lia Markham MD Work Phone: [facility] 09-03-2022 09:06-0400 Systolic blood pressure 114 mm[Hg] Lia Markham MD Work Phone: [facility] 08-20-2022 11:18-0400 Body weight 111.13 kg Lia Markham MD Work Phone: [facility] 08-20-2022 11:18-0400 Diastolic blood pressure 68 mm[Hg] Lia Markham MD Work Phone: [facility] 08-20-2022 11:18-0400 Heart rate 72 /min Lia Markham MD Work Phone: [facility] 08-20-2022 11:18-0400 Systolic blood pressure 132 mm[Hg] Lia Markham MD Work Phone: [facility] 06-24-2022 15:29-0400 Body weight 109.59 kg Orsemary Nikole SUBSTANCE ADDICTION COORDINATOR.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 Work Phone: [facility] 06-24-2022 15:29-0400 Diastolic blood pressure 88 mm[Hg] Rosemary Nikole SUBSTANCE ADDICTION COORDINATOR.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 Work Phone: [facility] 06-24-2022 15:29-0400 Heart rate 76 /min Rosemary Nikole SUBSTANCE ADDICTION COORDINATOR.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 Work Phone: [facility] 06-24-2022 15:29-0400 SaO2% (BldA) [Mass fraction] 95 % Rosemary Nikole SUBSTANCE ADDICTION COORDINATOR.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 Work Phone: [facility] 06-24-2022 15:29-0400 Systolic blood pressure 136 mm[Hg] Rosemary Nikole SUBSTANCE ADDICTION COORDINATOR.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 Work Phone: [facility] 06-21-2022 14:20-0400 Body temperature 98.4 [degF] Inna Roque SUBSTANCE ADDICTION COORDINATOR.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 Work Phone: [facility] 06-21-2022 14:20-0400 Body weight 110.68 kg Inna Roque APRN.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 Work Phone: [facility] 06-21-2022 14:20-0400 Diastolic blood pressure 78 mm[Hg] Inna Roque SUBSTANCE ADDICTION COORDINATOR.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 Work Phone: [facility] 06-21-2022 14:20-0400 Heart rate 86 /min Inna Roque APRN.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 Work Phone: [facility] 06-21-2022 14:20-0400 Respiratory rate 20 /min Inna Roque APRN.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 Work Phone: [facility] 06-21-2022 14:20-0400 SaO2% (BldA) [Mass fraction] 95 % Inna Roque APRN.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 Work Phone: [facility] 06-21-2022 14:20-0400 Systolic blood pressure 130 mm[Hg] Inna Roque SUBSTANCE ADDICTION COORDINATOR.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 Work Phone: [facility] 06-15-2022 08:19-0400 Body weight 108.86 kg Isabela Hernández SUBSTANCE ADDICTION COORDINATOR.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 Work Phone: [facility] 06-15-2022 08:19-0400 Diastolic blood pressure 80 mm[Hg] Isabeal Hernández SUBSTANCE ADDICTION COORDINATOR.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 Work Phone: [facility] 06-15-2022 08:19-0400 Heart rate 76 /min Isabela Hernández SUBSTANCE ADDICTION COORDINATOR.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 Work Phone: [facility] 06-15-2022 08:19-0400 Respiratory rate 18 /min Isabela Hernández SUBSTANCE ADDICTION COORDINATOR.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 Work Phone: [facility] 06-15-2022 08:19-0400 SaO2% (BldA) [Mass fraction] 95 % Isabela Hernández SUBSTANCE ADDICTION COORDINATOR.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 Work Phone: [facility] 06-15-2022 08:19-0400 Systolic blood pressure 132 mm[Hg] Isabela Hernández SUBSTANCE ADDICTION COORDINATOR.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 Work Phone: [facility] 02-15-2022 10:54-0400 Body weight 109.77 kg Lia Markham MD Work Phone: [facility] 02-15-2022 10:54-0400 Diastolic blood pressure 82 mm[Hg] Lia Markham MD Work Phone: [facility] 02-15-2022 10:54-0400 Heart rate 80 /min Lia Markham MD Work Phone: [facility] 02-15-2022 10:54-0400 Systolic blood pressure 120 mm[Hg] Lia Markham MD Work Phone: [facility] Encounters Encounter Date Encounter Type Care Provider Facility Start: 01-04-2024 ambulatory Lia Markham MD Work Phone: [facility] Procedures Date Procedure Procedure Detail Performing Clinician [...] DTaP,Tdap,Td Vaccine (3 - Td or Tdap) [facility] Start: 10-06-2026 Colonoscopy COLONOSCOPY [facility] Start: 10-06-2026 COLORECTAL CANCER SCREENING COLORECTAL CANCER SCREENING [facility] Start: 10-06-2026 Screening for malignant neoplasm of colon [facility] Start: 08-21-2025 PROSTATE CANCER SCREENING DISCUSSION PROSTATE CANCER SCREENING DISCUSSION [facility] Start: 12-13-2024 Annual PCP Team Chronic Disease Visit Annual PCP Team Chronic Disease Visit [facility] Start: 11-11-2024 Hepatitis B screening Urine Albumin:Creatinine Ratio [facility] Start: 11-07-2024 Annual PCP Team Chronic Disease Visit Annual PCP Team Chronic Disease Visit [facility] Start: 10-29-2024 Hepatitis B surface antibody level LDL Cholesterol [facility] Start: 10-05-2024 Annual PCP Team Chronic Disease Visit Annual PCP Team Chronic Disease Visit [facility] Start: 09-28-2024 Influenza vaccination Lung Cancer Screening [facility] Start: 09-28-2024 Screening for malignant neoplasm of lung Lung Cancer Screening [facility] Start: 09-14-2024 Annual PCP Team Chronic Disease Visit Annual PCP Team Chronic Disease Visit [facility] Start: 09-05-2024 Annual PCP Team Chronic Disease Visit Annual PCP Team Chronic Disease Visit [facility] Start: 01-28-2024 Hemoglobin A1c measurement HbA1C [facility] Start: 12-07-2023 Hemoglobin A1c/Hemoglobin.total in Blood HbA1C [facility] Start: 11-21-2023 Advance Directive Discussion Advance Directive Discussion [facility] Start: 11-10-2023 ANNUAL PCP TEAM CHRONIC DISEASE VISIT ANNUAL PCP TEAM CHRONIC DISEASE VISIT [facility] Start: 10-22-2023 ANNUAL PCP TEAM CHRONIC DISEASE VISIT ANNUAL PCP TEAM CHRONIC DISEASE VISIT [facility] Start: 10-21-2023 Glaucoma screening Dilated Retinal Exam [facility] Start: 10-21-2023 Hepatitis C antibody, confirmatory test DILATED RETINAL EXAM [facility] Start: 10-05-2023 End: 01-04-2024 CBC W Auto Differential panel - Blood CBC + DIFF Lab Routine Controlled type 2 diabetes mellitus without complication, without long-term current use of insulin ([facility]) Expected: 10/05/2023, Expires: 01/04/2024 [facility] Work Phone: Immunizations Immunization Date Immunization Notes Care Provider David granger 08-24-2023 influenza (HD-IIV4) vaccine, age 65+ yr, high dose, quadrivalent, PF (FLUZONE HIGH-DOSE) Lia Markham MD Work Phone: [facility] 08-24-2023 respiratory syncytia l virus (RSV) vaccine, adjuvanted (AREXVY) Lia Markham MD Work Phone: [facility] 08-20-2022 influenza, high-dose , quadrivalent vaccine (FLUZONE HIGH DOSE QUADRIVALENT) Lia Markham MD Work Phone: [facility] 08-20-2022 pneumococcal (PCV20) vaccine, 20 valent (PREVNAR 20) Lia Markham MD Work Phone: [facility] 08-20-2022 pneumococcal Conjuga te, unspecified formulation Lia Markham MD Work Phone: [facility] Work Phone: 08-20-2022 influenza virus vacc ine, unspecified formulation Carly Banks MD Work Phone: [facility] 09-09-2021 influenza, high dose seasonal, preservative-free Lia Markham MD Work Phone: [facility] 02-12-2021 COVID-19 vaccine, ag e 12+ yr (PFIZER-BIONTECH - PURPLE TOP) Lia Markham MD Work Phone: [facility] 01-22-2021 COVID-19 vaccine, ag e 12+ yr (PFIZER-BIONTECH - PURPLE TOP) Lia Markham MD Work Phone: [facility] 08-21-2020 influenza, high-dose , quadrivalent vaccine (FLUZONE HIGH DOSE QUADRIVALENT) Lia Markham MD Work Phone: [facility] 08-21-2020 pneumococcal polysaccharide vaccine, 23 valent Lia Markham MD Work Phone: [facility] 12-30-2019 zoster vaccine recombinant Lia Markham MD Work Phone: [facility] 10-18-2019 zoster vaccine recombinant Lia Markham MD Work Phone: [facility] 09-14-2019 influenza, high dose seasonal, preservative-free Lia Markham MD Work Phone: [facility] 09-14-2019 zoster vaccine recombinant Lia Markham MD Work Phone: [facility] 10-04-2018 influenza, injectabl e, quadrivalent, contains preservative Lia Markham MD Work Phone: [facility] 09-01-2017 influenza, injectabl e, quadrivalent, contains preservative Lia Markham MD Work Phone: [facility] 09-21-2016 influenza, injectabl e, quadrivalent, contains preservative Lia Markham MD Work Phone: [facility] Work Phone: 10-30-2015 influenza, injectabl e, quadrivalent, contains preservative Lia Markham MD Work Phone: [facility] 10-31-2014 influenza, seasonal, injectable Lia Markham MD Work Phone: [facility] 10-31-2014 zoster vaccine, live Lia Markham MD Work Phone: [facility] 09-27-2012 influenza virus vacc ine, unspecified formulation Lia Markham MD Work Phone: [facility] 09-21-2011 influenza virus vacc ine, unspecified formulation Lia Markham MD Work Phone: [facility] Work Phone: 08-07-2010 pneumococcal polysaccharide vaccine, 23 valent Lia Markham MD Work Phone: [facility] Work Phone: 08-07-2010 tetanus toxoid, redu nathan diphtheria toxoid, and acellular pertussis vaccine, adsorbed Lia Markham MD Work Phone: [facility] Work Phone: 10-11-2007 influenza virus vacc ine, unspecified formulation Lia Markham MD Work Phone: [facility] Work Phone: Payers Date Payer Category Payer Medicare [id number] 2019 Medicare MEDICARE MEDICAR E A AND B [id number] 2019-Present [phone] [address] [address] [place] [address] Medicare [id number] 2019 Medicare [id number] 2001 Unknown [employer] PPO [id number] 2001-2021 [address] [place] [address] PPO [id number] Social History Date Type Detail Facility Start: 05-01-2021 End: 09-20-2023 Tobacco smoking status NHIS Ex-smoker [facility] End: 09-01-2023 History of tobacco use Cigarette Smoker [facility] Start: 05-01-2021 End: 05-02-2023 Cigarettes smoked current (pack per day) - Reported 0.5 [facility] Start: 05-01-2021 End: 09-20-2023 Tobacco use and exposure Smokeless tobacco non-user [facility] Start: 02-15-2022 End: 09-14-2023 Alcohol intake Current drinker of alcohol (finding) [facility] Start: 04-27-2021 End: 10-21-2022 History SDOH Alcohol Frequency 2 [facility] Start: 04-27-2021 End: 10-21-2022 History SDOH Alcohol Std Drinks 1 [facility] Start: 04-05-2017 History SDOH Alcohol Comment occasionally beer or liquor [facility] Start: 04-27-2021 End: 10-21-2022 History SDOH Social Connections Phone 3 [facility] Start: 04-27-2021 History SDOH Physical Activity MPS 0 [facility] Start: 04-27-2021 Education 17 [facility] Start: 1955 Sex Assigned At Male [facility] Start: 02-05-2022 End: 10-22-2022 Exposure to SARS-CoV-2 (event) Not sure [facility] End: 09-01-2023 History of tobacco use Current smoker [facility] Start: 10-22-2022 Tobacco Comment Quit 2019 [facility] Start: 12-28-2022 End: 05-02-2023 Tobacco smoking status NHIS Occasional tobacco smoker [facility] Work Phone: Start: 12-28-2022 Tobacco Comment Restarted smoking over the holidays [facility] Start: 10-21-2022 End: 05-02-2023 Alcohol Use Disorder Identification Test - Consumption [AUDIT-C] [facility] How often to you hav e a drink containing alcohol? Monthly or less [facility] How many standard dr inks containing alcohol do you have on a typical day? 1 or 2 [facility] How often do you hav e 6 or more drinks on 1 occasion? Never [facility] Adult Depression Scr eening Assessment 0 [facility] Do you feel stress - tense, restless, nervous, or anxious, or unable to sleep at night because your mind is troubled all the time - these days [OSQ] To some extent [facility] In the past 12 month s, was there a time when you were not able to pay the mortgage or rent on time? No [facility] Start: 05-02-2023 Tobacco Comment Less than 1ppd 05/02/23 [facility] Start: 04-27-2021 Gender identity Identifies as male gender (finding) [facility] Start: 04-27-2021 Sexual orientation Heterosexual (finding) [facility] Do you belong to any clubs or organizations such as confucianism groups, unions, fraternal or athletic groups, or school groups? Yes [facility] Are you now , , , , never or living with a partner? [facility] (I/We) worried wheth er (my/our) food would run out before (I/we) got money to buy more. Never true [facility] Start: 09-15-2023 End: 12-13-2023 Alcohol intake Ex-drinker (finding) [facility] Start: 09-15-2023 Tobacco Comment Less than 1ppd 05/02/23Quit 09/01/2023 [facility] Start: 09-20-2023 Tobacco Comment Quit 09/01/2023 [facility] Do you feel stress - tense, restless, nervous, or anxious, or unable to sleep at night because your mind is troubled all the time - these days [OSQ] Only a little [facility] Medical Equipment Procedure Code Equipment Code [...] - Emergency Medicine documented in this encounter [facility] 12-30-2023 Miscellaneous Notes Duplicate encounter. documented in this encounter [facility] 12-26-2023 Miscellaneous Notes MARCUS 05/02/23 Patient phones requesting refills as follows: Requested Prescriptions Pending Prescriptions Disp Refills ywqrgyudfxc-hbmaoyfcp-hunycejf (TRELEGY ELLIPTA) 100-62.5-25 mcg inhalation powder 180 Each 3 Sig: Inhale 1 Puff as instructed once daily. Please review and advise. Marcy Cedillo LPN documented in this encounter [facility] 12-13-2023 Note HNO ID: [id number] Author: LIA MARKHAM MD Service: ? Author [...] Reason for visit: weakness, fall Which facility: [facility] Date of visit: 11/02/23 Discharged: 11/05/23 [...] Use one pen needle four times daily ukxodyhdzcs-yfdfigloz-psufajzt (TRELEGY ELLIPTA) 100-62.5-25 mcg inhalation powder Inhale [...] once daily. clob (more content not included)... [facility] 11-07-2023 Note HNO ID: [id number] Author: Lia Markham MD Service: ? Author Type: Physician Type: Progress Notes Filed: 11/07/2023 12:43 PM Note Text: Patient presents with: Hospice Discharge HPI: Patient presents today for office visit for hospital follow up. HOSPITAL/ER FOLLOW UP: Reason for visit: weakness, fall Which facility: [facility] Date of visit: 11/02/23 Discharged: 11/05/23 [...] Use one pen needle four times daily dbohiswlevm-dubsnldqp-vwuyswxb (TRELEGY ELLIPTA) 100-62.5-25 mcg inhalation powder Inhale [...] 2010 Dysmetabolic sy (more content not included)... [facility] 11-02-2023 Miscellaneous Notes Spoke to and scheduled patient Carlydaar Manriquez Ma documented in this encounter [facility] 10-22-2023 Miscellaneous Notes Placed in mail written documented in this encounter [facility] 10-11-2023 Miscellaneous Notes rxi documented in this encounter [facility] 10-05-2023 Note HNO ID: [id number] Author: Lia Markham MD Service: ? Author Type: Physician Type: Progress Notes Filed: 10/05/2023 12:18 PM Note Text: Patient presents with: Follow Up HPI: Patient presents today for office visit for 3 week follow up. Was seen in [facility] on 09/06/23 for stroke like symptoms [...] his subacute cva. Was seen back in [facility] on 09/26/23 Discharged on 09/27/23 Went [...] therapies ordered. He has been going to [facility] instead. Reiterated that it is not an acceptable substitute. Orders were placed. They are planning on going to [place] this week. Suggested with recent cva they [...] Use one pen needle four times daily bghjnjdzchf-nczjbnsnx-kijdlljz (TRELEGY ELLIPTA) 100-62.5-25 mcg inhalation powder Inhale [...] SPEC WHEN PFRMD (more content not included)... [facility] 10-05-2023 Instructions Lia Markham MD - 10/05/2023 12:08 PM EST Increase humalog to 19 units with each meal. Send over sugars on Tuesday. documented in this encounter [facility] 10-05-2023 History of Present illness Narrative Patient presents with: Follow Up HPI: Patient presents today for office visit for 3 week follow up. Was seen in [facility] on 09/06/23 for stroke like symptoms [...] his subacute cva. Was seen back in [facility] on 09/26/23 Discharged on 09/27/23 Went [...] therapies ordered. He has been going to [facility] instead. Reiterated that it is not an [...] Use one pen needle four times daily bgcnnhnqnbk-mbwiepnqx-ozlsnoyt (TRELEGY ELLIPTA) 100-62.5-25 mcg inhalation powder Inhale [...] Lia Markham MD documented in this encounter [facility] 09-28-2023 Note HNO ID: [id number] Author: Suellen Kaplan RT(R) Service: ? Author Type: Delivery Specialist Type: Progress Notes Filed: 09/28/2023 4:18 PM [...] RT Avelina(R) September 28, 2023 4:18 PM [facility] 09-26-2023 Miscellaneous Notes Pt was taken to [facility] ER by spouse. Reg Broussard Message left for or patient to call PCP office and ask for traige nurse, for provider's response below. Melody Schulz RN Agree, these sx belong in ER should not wait. Thanks, Rusty Calhoun PA-C Patient's calls concerned. Patient was seen in [facility] 09/06/2023 with stroke like symptoms. Patient [...] Sagrario Barrera RN documented in this encounter [facility] 09-22-2023 Note HNO ID: [id number] Author: Penny Pastor RDMS Service: ? Author Type: Delivery Specialist Type: Progress Notes Filed: 09/22/2023 2:14 PM [...] Pastor RDMS September 22, 2023 2:14 PM [facility] 09-22-2023 History of Present illness Narrative [...] 2023 2:14 PM documented in this encounter [facility] 09-20-2023 Note HNO ID: [id number] Author: Andres Dotson APRN.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 Service: ? Author Type: Nurse Practitioner Type: [...] pre-disease performance w/o restriction. Modified [employer] Dyspnea Scale (MMRC) I only get breathless [...] Inject 50 Units subcutaneously daily at bedtime. adykugaxvbs-ihkkerrhj-anvzvcme (TRELEGY ELLIPTA) 100-62.5-25 mcg inhalation powder Inhale [...] mg by mout (more content not included)... [facility] 09-20-2023 Instructions Andres Dotson APRN.[facility] - 09/20/2023 10:[address] Lung [...] to endocrinology. Others Lung Cancer Screening hotline: [phone] Lung Cancer Screening [phone] Billing Questions: or [email or web address] Lung Cancer Screening Team: Angeles Lopez CNP; Gladys Reddy PA-C; Suellen Joseph CNP; Diamond Rosas CNP, Susanne Wolfe PA-C, Fide Andino PA-C, Andres Dotson, 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 : [phone] documented in this encounter [facility] 09-20-2023 History of Present illness Narrative [...] presents for lung screening. On [facility] for COPD . Respiratory symptoms include: SOB: [...] pre-disease performance w/o restriction. Modified Medical Research Tribal Dyspnea Scale (MMRC) I only get breathless [...] Inject 50 Units subcutaneously daily at bedtime. ilwdbbxtyix-hnpwqpxmx-xprnuokc (TRELEGY ELLIPTA) 100-62.5-25 mcg inhalation powder Inhale [...] COVID-19 original vaccine, age 12+ yr, monovalent ([employer] - PURPLE TOP) 01/22/2021 02/12/2021 09/09/2021 COVID-19 vaccine, age 12+ yr, 2022- season ([employer]) 09/13/2023 COVID-19 vaccine, age 12+ yr, bivalent (Lumatix-BIONTECH) 08/30/2022 influenza (HD-IIV3) vaccine, age 65+ yr, [...] DATE OF EXAM: Sep 06 2022 1:24PM [facility] - CT CHEST WO IVCON / PROCEDURE [...] the upper abdomen demonstrates no interval changes. Bi Lead (topogram) images: No additional findings. Impression: IMPRESSION: Numerous tiny centrilobular nodules in the bilateral lungs, likely secondary to inflammatory/infectious process or small airway disease. Mild emphysema. No CT evidence of interstitial lung disease. Remote granulomatous disease. Aviation Tactical Readiness Officer: [facility] Transcribe Date/Time: Sep 07 2022 2:32P Dictated [...] medial basilar pneumonia. Lungs are otherwise clear. Aviation Tactical Readiness Officer: [facility] Transcribe Date/Time: Sep 03 2022 12:23P ... Pulmonary Function Testing: SPIROMETRY BASELINE ONLY ([id number]) - ordered on 09/15/23 [facility] [address] [place] [address] Test Date: 2023-09-15 Pat Name: OLGA WOODSON Department: Room: Gender: Male Delivery Specialist: : 1955 Requested By: Order Number: [id number] Reading MD: Carly Banks MD Interpretive Statements The exhaled (FVC) spirometry maneuver meets ATS/ERS acceptability and repeatability standards. The inspired (FIVC) spirometry maneuver is [less than/greater than] the FVC maneuver. IMPRESSION: Spirometry indicates moderate obstruction. Electronically Signed On 09-15-2023 16:45:15 EDT by Carly Banks MD ID: [id number] Name: OLGA WOODSON Race: White Ht: 71.75 [...] 2.67 FEF50/FIF50 0.41 90-100 FIVC (L) 3.28 XME83-29 (L/sec) 0.70 1.14 2.60 4.64 27 Time (sec) 13.94 FET PEF (sec) 0.12 AMINTA (L) 0.06 Vol Extrap % (%) 1 PHYSICAL EXAM: BP 144/82 Pulse 100 Wt 102.1 kg (225 lb) SpO2 96% BMI 30.73 kg/m Deferred ASSESSMENT and RECOMMENDATIONS: 1. Screening for lung cancer: Six year risk for lung cancer: 4.43% [email or web address] I have determined that the patient [...] 2023 10:40 AM documented in this encounter [facility] 09-15-2023 Note HNO ID: [id number] Author: Yoly Ornelas PA-C Service: ? Author Type: Physician Fingernail Former Type: Progress Notes Filed: 09/15/2023 2:43 PM Note Text: Patient: Olga Woodson PCP: Lia Markham MD CC: follow up HPI: Olga Woodson 68 year old male recently former 37-gtbi-haqj smoker with PMH significant for psoriasis, anxiety, HLD, DM, CVA, CALLI on CPAP, and COPD. Current therapy with Trelegy and as needed Albuterol. Today, patient states he was recently admitted to [facility] secondary to CVA. States he had been [...] Inject 50 Units subcutaneously daily at bedtime. ghlygfxqveb-kbaiqjzwn-wtrfqfwr (TRELEGY ELLIPTA) 100-62.5-25 mcg inhalation powder Inhale [...] history, social h (more content not included)... [facility] 09-15-2023 Note HNO ID: [id number] Author: Madyson Robbins RPFT Service: ? Author Type: Respiratory Therapist Type: Progress Notes Filed: 09/15/2023 1:18 PM Note Text: PULM FUNCTION SMARTBLOCK: Provider: Yoly Ornelas PA-C Assisting Tech: Madyson Robbins RPFT Spirometry: 1 [facility] 09-15-2023 History of Present illness Narrative Images from the original note were not included. Patient: Olga Woodson PCP: Lia Markham MD CC: follow up HPI: Olga Woodson 68 year old male recently former 89-kryh-hcml smoker with PMH significant for psoriasis, anxiety, HLD, DM, CVA, CALLI on CPAP, and COPD. Current therapy with Trelegy and as needed Albuterol. Today, patient states he was recently admitted to [facility] secondary to CVA. States he had been [...] Inject 50 Units subcutaneously daily at bedtime. bjizggvmdrs-zaacdlxbq-ogzsjimz (TRELEGY ELLIPTA) 100-62.5-25 mcg inhalation powder Inhale [...] smoker - ICD9: V15.82, ICD10: Z87.891 Former 23-ohzo-glrs smoker with sequelae of COPD. Is scheduled with lung cancer screening for LDCT. Portions of this documentation were copied and pasted from previous office visit notes in order to provide a cohesive continuity of the history. The note has been reviewed and edited and updated as necessary. Yoly Ornelas PA-C documented in this encounter [facility] 09-14-2023 Note HNO ID: [id number] Author: Lia Markham MD Service: ? Author Type: Physician Type: Progress Notes Filed: 09/15/2023 10:32 AM Note Text: Patient presents with: Hospital F/U HPI: Patient presents today for office visit for hospital follow up. Seen in [facility] on 09/06/23 Discharged 09/07/23 Admitted for [...] Inject 50 Units subcutaneously daily at bedtime. pugvvlkwpid-ubadwezzc-pzytzphm (TRELEGY ELLIPTA) 100-62.5-25 mcg inhalation powder Inhale [...] 07/13/2012 Right ro (more content not included)... [facility] 09-14-2023 Instructions Lia Markham MD - 09/14/2023 3:16 PM EDT My chart list of sugars next . documented in this encounter [facility] 09-14-2023 History of Present illness Narrative Patient presents with: Hospital F/U HPI: Patient presents today for office visit for hospital follow up. Seen in [facility] on 09/06/23 Discharged 09/07/23 Admitted for [...] Inject 50 Units subcutaneously daily at bedtime. pkuuxfkpzjy-vrdivrkpb-liudlikc (TRELEGY ELLIPTA) 100-62.5-25 mcg inhalation powder Inhale [...] CONSULT TO SPEECH THERAPY - CONSULT TO MACHINE STRIPER 2. Controlled type 2 diabetes mellitus without [...] Lia Markham MD documented in this encounter [facility] documented as of this encounter (statuses as of 10/05/2023) [facility] History of Past illness Narrative* Problem [...] of uncertain behavi or of skin: R restoration face: R/O BCC 10/12/2011 09/21/2016 Actinic Keratosis [...] of this encounter (statuses as of 10/07/2023) [facility] History of Past illness Narrative* Problem [...] of uncertain behavi or of skin: R restoration face: R/O BCC 10/12/2011 09/21/2016 Actinic Keratosis [...] of this encounter (statuses as of 10/12/2023) [facility] History of Past illness Narrative* Problem [...] of uncertain behavi or of skin: R restoration face: R/O BCC 10/12/2011 09/21/2016 Actinic Keratosis [...] of this encounter (statuses as of 10/22/2023) [facility] History of Past illness Narrative* Problem [...] of uncertain behavi or of skin: R restoration face: R/O BCC 10/12/2011 09/21/2016 Actinic Keratosis [...] of this encounter (statuses as of 11/03/2023) [facility] History of Past illness Narrative* Problem [...] of uncertain behavi or of skin: R restoration face: R/O BCC 10/12/2011 09/21/2016 Actinic Keratosis [...] of this encounter (statuses as of 11/11/2023) [facility] History of Past illness Narrative* Problem [...] of uncertain behavi or of skin: R restoration face: R/O BCC 10/12/2011 09/21/2016 Actinic Keratosis [...] of this encounter (statuses as of 12/27/2023) [facility] History of Past illness Narrative* Problem [...] of uncertain behavi or of skin: R restoration face: R/O BCC 10/12/2011 09/21/2016 Actinic Keratosis [...] of this encounter (statuses as of 12/30/2023) [facility] History of Past illness Narrative* Problem [...] of uncertain behavi or of skin: R restoration face: R/O BCC 10/12/2011 09/21/2016 Actinic Keratosis [...] of this encounter (statuses as of 12/30/2023) [facility] History of Past illness Narrative* Problem [...] of uncertain behavi or of skin: R restoration face: R/O BCC 10/12/2011 09/21/2016 Actinic Keratosis [...] of this encounter (statuses as of 01/04/2024) [facility]23 NoteHNO ID: [id number] Author: Lia Markham MD Service: ? Author [...] about patient. Patient was working out today. Peripatologist refused to work out with patient due [...] Inject 50 Units subcutaneously daily at bedtime. huksfcrupld-dcfdtqgad-emoccvxm (TRELEGY ELLIPTA) 100-62.5-25 mcg inhalation powder Inhale [...] penis erectile dysfunction PER (more content not included)...[facility]10-16[facility]23 Miscellaneous Notes* Telephone Encounter - Karen [...] response. Karen Varghese Ma documented in this encounterM[facility]08-[facility]23 Miscellaneous Notes* Telephone Encounter - Alicia [...] patient. Alicia Reyes LPN documented in this encounterMidd[facility]07-14-2023 Miscellaneous Notes* Telephone Encounter - Lia Markham MD - 06/03/2023 7:58 AM EDT Does not look like he picked up the message. Can we call him with my response. I do not think he realizes it is the same identical med...just called different. documented in this encounterM[facility]06-12-2023 NoteHNO ID: [id number] Author: Yoly Ornelas PA-C Service: ? Author Type: Physician Fingernail Former Type: Progress Notes Filed: 05/02/2023 11:39 AM [...] 1.5 PPD Psoriasis Skin cancer Stroke (cerebrum) ([facility]) Tobacco use disorder Type II or unspecified type diabetes mellitus without mention of complication, uncontrolled 08/07/2010 Diagnosed 07/2010 Allergies: Metformin Diarrhea Penicillins bsdbssdsigw-wheuzqesd-rvcrtppf (TRELEGY ELLIPTA) 100-62.5-25 mcg inhalation powder Inhale [...] 07/01/2015 resolution pleural ef (more content not included)...[facility] 04-04-2023 Miscellaneous Notes* Telephone Encounter - [...] When form is completed, Fax form to [phone] Form has been forwarded to Nurse Practictioner: JERI Canchola LPN documented in this encounterMidd[facility]05-02-2023 Miscellaneous Notes* Telephone Encounter - Marcy Cedillo LPN - 03/22/2023 10:35 AM EDT Patient phones requesting refills as follows: Requested Prescriptions Pending Prescriptions Disp Refills phaejjlhlbv-oljrfjsyv-vynrhrjg (TRELEGY ELLIPTA) 100-62.5-25 mcg inhalation powder 1 Each 3 Sig: Inhale 1 Puff as instructed once daily. Please review and advise. Marcy Cedillo LPN documented in this encounterMiddletown Hospital05-01-2023 Miscellaneous Notes* Telephone Encounter - Alicia [...] patient. Alicia Reyes LPN documented in this encounterMiddletown Hospital03-24-2023 Miscellaneous Notes* Telephone Encounter - Alicia [...] leaking wants to see Dr Church at [facility] needsreferral sent over there. documented in this encounterM[facility]03-20-2023 Miscellaneous Notes* Telephone Encounter - Alicia [...] patient. Alicia Reyes LPN documented in this encounterMiddletown Hospital02-07-2023 NoteHNO ID: [id number] Author: Carly Banks MD Service: ? Author Type: Physician Type: Progress Notes Filed: 12/28/2022 11:06 AM Note Text: . [facility] [place] Note Patient name: Olga Woodson PCP: Lia [...] 3 mg subcutaneously one time a week. ekmouqpeprm-tuoowsdpd-agivnwxl (TRELEGY ELLIPTA) 100-62.5-25 mcg inhalation powder Inhale [...] and deep fold areas. (more content not included)...[facility]12[facility] Miscellaneous Notes* Telephone Encounter - Zion Calhoun PA-C - 11/04/2022 6:35 PM EST The following approved medication requests have been transmitted electronically. Requested Prescriptions Signed Prescriptions Disp Refills dulaglutide (TRULICITY) 3 mg/0.5 mL pen injector 12 Each 3 Sig: Inject 3 mg subcutaneously one time a week. Zion Calhoun PA-C documented in this encounterMiddletown Hospital12-02-2022 History of Present illness Narrative* Lia [...] ago. MEDICATIONS: Current Outpatient Medications Medication Sig exifbpyoyry-svqgyttyr-gcnmkklq (TRELEGY ELLIPTA) 100-62.5-25 mcg inhalation powder Inhale [...] Stage 3 severe COPD by GOLD classification ([facility]) - ICD9: 496, ICD10: J44.9 (primary diagnosis) - continue meds. 2. Mild depressive disorder - ICD9: 311, ICD10: F32.A - VENLAFAXINE ER 150 MG CAPSULE,EXTENDED RELEASE 24 HR 3. Bronchiectasis without complication ([facility]) - ICD9: 494.0, ICD10: J47.9 - stable. Discussed importance of taking meds regularly. 4. Controlled type 2 diabetes mellitus without complication, without long-term current use of insulin (HCC) - ICD9: 250.00, ICD10: E11.9 improved control - Continue current medications Lia Markham MD documented in this encounterMiddletown Hospital12-02-2022 History of Present illness Narrative* Carly Banks MD - 10/22/2022 8:00 AM EST Images from the original note were not included. . [facility] [place] Note Patient name: Olga Woodson PCP: Lia [...] breath. Started a working out with a personal trainer who noticed significant labored breathing.He notes [...] DATE OF EXAM: Sep 06 2022 1:24PM [facility] 0541 - CT CHEST WO IVCON [...] 07/2010 ALLERGIES Allergen Reactions Metformin Diarrhea Penicillins pukgyyxxvde-dwhlerfco-oudavvny (TRELEGY ELLIPTA) 100-62.5-25 mcg inhalation powder Inhale [...] be helpful 2. Former cigarette smoker -Former 54-zwmj-idcs smoker having quit in 2019 with sequelae of COPD/emphysema -Continue abstinence -Qualifies for low-dose chest CT for cancer screening but would not be due until August 2023 3. Obesity -Class II obesity, BMI 33 -Weight loss advised Carly Banks MD [facility] [place] documented in this encounterMiddletown Hospital11-02-2022 Miscellaneous Notes* Telephone Encounter - Alicia Reyes LPN - 09/22/2022 11:57 AM EDT Faxed back to [place] as requested. * Telephone Encounter - Lia [...] Dr. Shahrzad Broussard LPN documented in this [facility]11-01-2022 Miscellaneous Notes* Telephone Encounter - Melody Schulz RN - 09/21/2022 10:11 AM EDT Yoly from [facility] calling and states she has received printed CPAP script for patient. Yoly requesting recent OV notes and sleep study results also. Faxed as requested to [phone]. Melody Schulz RN documented in this [facility]10-31-2022 Miscellaneous Notes* Telephone Encounter - Zion French RN - 09/20/2022 10:05 AM EDT Left detailed vm on identified vm with provider's message below. * Telephone Encounter - Zion Calhoun PA-C - 09/19/2022 5:15 PM EDT I placed consult if he wants to establish with [facility] Dr. Banks Thanks, Rusty Calhoun PA-C documented in this [facility]10-21-2022 Miscellaneous Notes* Telephone Encounter - Ana María [...] to pulmonary to follow documented in this encounterMiddletown Hospital10-18-2022 Miscellaneous Notes* Telephone Encounter - Aleta Teague Ma - 09/07/2022 3:44 PM EDT Keila Aire sends fax stating that rx for CPAP needs to state that it is a replacement machine. Please file. Once filed, will fax with office note. documented in this encounterMiddletown Hospital10-17-2022 History of Present illness Narrative* Suellen [...] 06, 2022 3:26 PM documented in this encounterMiddletown Hospital10-17-2022 History of Present illness Narrative* ERICA Silva - 09/06/2022 10:33 AM EDT PULM FUNCTION SMARTBLOCK: Provider: Lia Markham MD Assisting Tech: ERICA Silva Spirometry w/BD: 1 DLCO: 1 LV - Box: 1 documented in this encounterMiddletown Hospital10-14-2022 Miscellaneous Notes* Telephone Encounter - Aleta [...] out scarring or fibrosis. documented in this encounterMiddletown Hospital10-14-2022 History of Present illness Narrative* Lia [...] antegrade flow noted. Technologist: Brynn Harrington T, [facility] Ordering physician: LIA MARKHAM Aorta: 3.3 cm [...] RTO in six weeks. documented in this encounterMiddletown Hospital10-11-2022 Miscellaneous Notes* Telephone Encounter - Melody [...] wait until Dec. * Telephone Encounter - Meoldy Schulz RN - 08/31/2022 1:21 PM EDT Triage protocol recommends: see provider within 3 days for evaluation. states patient's SOB has not worsened and she does not feel he needs to come in for OV right away, but would like provider's advise. Next scheduled appt is 10/22. Please advise at [phone]. Reason for Disposition [1] MODERATE longstanding difficulty [...] does nothing, but they do go to [facility] during the week and patient does a [...] about 8 months ago when they started [facility]-reports he is the same with his SOB. [...] n/a 12. TRAVEL: no Protocols used: Breathing Ssbkcjhzrr-KTEUQ-ED documented in this encounterMiddletown Hospital10-06-2022 History of Present illness Narrative* Penny [...] 26, 2022 11:52 AM documented in this encounterMiddletown Hospital10-05-2022 Miscellaneous Notes* Telephone Encounter - Danielle [...] is from 2015. * Telephone Encounter - iLa Markham MD - 08/25/2022 7:58 AM EDT Can we see if we can get his sleep study from [facility] in 2013. documented in this encounterMiddletown Hospital09-30-2022 Miscellaneous Notes* Addendum Note - Lia Markham MD - 08/20/2022 11:58 AM EDTAddended by: LIA MARKHAM on: 08/20/2022 11:58 AM Modules accepted: Orders, SmartSet documented in this encounterMiddletown Hospital09-30-2022 History of Present illness Narrative* Lia [...] six to eight weeks. documented in this encounterMiddletown Hospital08-12-2022 Miscellaneous Notes* Telephone Encounter - Alicia [...] patient. Alicia Reyes LPN documented in this encounterMiddletown Hospital08-12-2022 Miscellaneous Notes* Telephone Encounter - Melody [...] Advise. Karen Varghese Ma documented in this encounterMiddletown Hospital08-04-2022 History of Present illness Narrative* Rosemary [...] DROPS Rosemary Agustin APRN.CNP documented in this encounterMiddletown Hospital08-04-2022 Miscellaneous Notes* Telephone Encounter - Carly Manriquez Ma - 06/24/2022 12:56 PM EDT Spoke to patient and scheduled for today Carly Manriquez Ma documented in this encounterMiddletown Hospital08-01-2022 Instructions* Patient Instructions* Inna Roque APRN.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 - 06/21/2022 2:34 PM EDT Ear Infection [...] contagious, but need treatment. documented in this encounterMiddletown Hospital08-01-2022 History of Present illness Narrative* Inna Roque APRN.JERI - 06/21/2022 2:33 PM EDT This note was created using [employer]. Subjective Olga Woodson is a 66 year old male. 66 male with PMH of CVA, AAA, Hyperlipidemia, DM presents with complaints of right ear fullness. Acute onset today fullness & water in right ear Denies pain, fever/chills, congestion, or cough No OTC medications or remedies used TENT WORKER States I was at the doctors getting my new hearing aids this morning and they told me I should getmy ear looked at . The history is provided by the patient. No russian language instructor was used. Ear Pain This is a [...] upon. Inna Roque APRN.JERI documented in this encounterMiddletown Hospital07-27-2022 Miscellaneous Notes* Telephone Encounter - Karen Varghese Ma - 06/16/2022 10:59 AM EDT Called Client Services, spoke with Eduard. On hold for 13 minutes. Unable to add A1c. Pt sent Flynnt message notifying him of result below from Provider. Made pt aware that incorrect lab was ordered and asked him to come in and complete an A1c. Apologized for inconvenience. Karen Varghese Ma * Telephone Encounter - Lia Markham MD - 06/16/2022 8:04 AM EDT Sugar was 215. Rest of labs ok. Can we add a1c to see where it is. documented in this encounterMiddletown Hospital07-26-2022 Instructions* Patient Instructions* Isabela Hernández APRN.CNP - 06/15/2022 9:00 AM EDT 1. Start the naproxen twice daily with food X 1 week. Then you can use twice daily as needed. 2. Get the labwork. 3. Get the xray done. 4. Let us know if no better or any worsening. documented in this encounterMiddletown Hospital07-26-2022 History of Present illness Narrative* Isabela [...] improvement. Isabela Hernández APRN.JERI documented in this encounterMiddletown Hospital06-15-2022 Miscellaneous Notes* Telephone Encounter - Alicia Reyes LPN - 05/05/2022 10:55 AM EDT Faxed back as requested. * Telephone Encounter - Lia Markham MD - 05/05/2022 10:13 AM EDT done * Telephone Encounter - Karen Varghese Ma - 05/05/2022 8:59 AM EDT Office received fax from [employer] for certificate of medical necessity for pt DME supplies. Routedto PCP to review and complete. Once complete fax back to [phone]. Karen Varghese Ma documented in this encounterMiddletown Hospital03-28-2022 Instructions* Patient Instructions* Lia Markham MD - 02/15/2022 11:14 AM EDT Increase humalog to 17 units with each meal and call sugars in two weeks. Watch diet and increase exercise to help as well. documented in this encounterMiddletown Hospital03-28-2022 History of Present illness Narrative* Lia [...] six months and prn. 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 Neoplasm of uncertain behavi or of skin: R restoration face: R/O BCC 10/12/2011 09/21/2016 Actinic Keratosis [...] of this encounter (statuses as of 02/18/2022) [facility] Narrative* Problem Noted Date Resolved Date 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 Neoplasm of uncertain behavi or of skin: R restoration face: R/O BCC 10/12/2011 09/21/2016 Actinic Keratosis [...] of this encounter (statuses as of 03/24/2022) [facility] Narrative* Problem Noted Date Resolved Date 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 Neoplasm of uncertain behavi or of skin: R restoration face: R/O BCC 10/12/2011 09/21/2016 Actinic Keratosis [...] of this encounter (statuses as of 05/05/2022) [facility] Narrative* Problem Noted Date Resolved Date 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 Neoplasm of uncertain behavi or of skin: R restoration face: R/O BCC 10/12/2011 09/21/2016 Actinic Keratosis [...] of this encounter (statuses as of 06/15/2022) [facility] Narrative* Problem Noted Date Resolved Date 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 Neoplasm of uncertain behavi or of skin: R restoration face: R/O BCC 10/12/2011 09/21/2016 Actinic Keratosis [...] of this encounter (statuses as of 06/16/2022) [facility] Narrative* Problem Noted Date Resolved Date 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 Neoplasm of uncertain behavi or of skin: R restoration face: R/O BCC 10/12/2011 09/21/2016 Actinic Keratosis [...] of this encounter (statuses as of 06/21/2022) [facility] Narrative* Problem Noted Date Resolved Date 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 Neoplasm of uncertain behavi or of skin: R restoration face: R/O BCC 10/12/2011 09/21/2016 Actinic Keratosis [...] of this encounter (statuses as of 06/24/2022) [facility] History of Past illness Narrative* Problem Noted Date Resolved Date 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 Neoplasm of uncertain behavi or of skin: R restoration face: R/O BCC 10/12/2011 09/21/2016 Actinic Keratosis [...] of this encounter (statuses as of 06/24/2022) [facility] History of Past illness Narrative* Problem Noted Date Resolved Date 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 Neoplasm of uncertain behavi or of skin: R restoration face: R/O BCC 10/12/2011 09/21/2016 Actinic Keratosis [...] of this encounter (statuses as of 06/25/2022) [facility] History of Past illness Narrative* Problem Noted Date Resolved Date CNH (chondrodermatitis nodularis helicis) 201009/21/2016 Neoplasm of uncertain behavi or of skin: R restoration face: R/O BCC 10/12/2011 09/21/2016 Actinic Keratosis [...] of this encounter (statuses as of 07/02/2022) [facility] History of Past illness Narrative* Problem Noted Date Resolved Date CNH (chondrodermatitis nodularis helicis) 201009/21/2016 Neoplasm of uncertain behavi or of skin: R restoration face: R/O BCC 10/12/2011 09/21/2016 Actinic Keratosis [...] of this encounter (statuses as of 07/05/2022) [facility] History of Past illness Narrative* Problem Noted Date Resolved Date CNH (chondrodermatitis nodularis helicis) 201009/21/2016 Neoplasm of uncertain behavi or of skin: R restoration face: R/O BCC 10/12/2011 09/21/2016 Actinic Keratosis [...] of this encounter (statuses as of 07/20/2022) [facility] History of Past illness Narrative* Problem Noted Date Resolved Date CNH (chondrodermatitis nodularis helicis) 201009/21/2016 Neoplasm of uncertain behavi or of skin: R restoration face: R/O BCC 10/12/2011 09/21/2016 Actinic Keratosis [...] of this encounter (statuses as of 08/18/2022) [facility] History of Past illness Narrative* Problem Noted Date Resolved Date CNH (chondrodermatitis nodularis helicis) 201009/21/2016 Neoplasm of uncertain behavi or of skin: R restoration face: R/O BCC 10/12/2011 09/21/2016 Actinic Keratosis [...] of this encounter (statuses as of 08/20/2022) [facility] History of Past illness Narrative* Problem Noted Date Resolved Date CNH (chondrodermatitis nodularis helicis) 201009/21/2016 Neoplasm of uncertain behavi or of skin: R restoration face: R/O BCC 10/12/2011 09/21/2016 Actinic Keratosis [...] of this encounter (statuses as of 08/25/2022) [facility] History of Past illness Narrative* Problem Noted Date Resolved Date CNH (chondrodermatitis nodularis helicis) 201009/21/2016 Neoplasm of uncertain behavi or of skin: R restoration face: R/O BCC 10/12/2011 09/21/2016 Actinic Keratosis [...] of this encounter (statuses as of 08/27/2022) [facility] History of Past illness Narrative* Problem Noted Date Resolved Date CNH (chondrodermatitis nodularis helicis) 201009/21/2016 Neoplasm of uncertain behavi or of skin: R restoration face: R/O BCC 10/12/2011 09/21/2016 Actinic Keratosis [...] of this encounter (statuses as of 08/31/2022) [facility] History of Past illness Narrative* Problem Noted Date Resolved Date 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/2016 Neoplasm of uncertain behavi or of skin: R restoration face: R/O BCC 10/12/2011 09/21/2016 Actinic Keratosis [...] of this encounter (statuses as of 08/31/2022) [facility] History of Past illness Narrative* Problem Noted Date Resolved Date 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 Neoplasm of uncertain behavi or of skin: R restoration face: R/O BCC 10/12/2011 09/21/2016 Actinic Keratosis [...] of this encounter (statuses as of 09/03/2022) [facility] History of Past illness Narrative* Problem Noted Date Resolved Date 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 Neoplasm of uncertain behavi or of skin: R restoration face: R/O BCC 10/12/2011 09/21/2016 Actinic Keratosis [...] of this encounter (statuses as of 09/06/2022) [facility] History of Past illness Narrative* Problem Noted Date Resolved Date 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/21/2016 Neoplasm of uncertain behavi or of skin: R restoration face: R/O BCC 10/12/2011 09/21/2016 Actinic Keratosis [...] of this encounter (statuses as of 09/07/2022) [facility] History of Past illness Narrative* Problem Noted Date Resolved Date 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/21/2016 Neoplasm of uncertain behavi or of skin: R restoration face: R/O BCC 10/12/2011 09/21/2016 Actinic Keratosis [...] of this encounter (statuses as of 09/07/2022) [facility] History of Past illness Narrative* Problem Noted Date Resolved Date 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/21/2016 Neoplasm of uncertain behavi or of skin: R restoration face: R/O BCC 10/12/2011 09/21/2016 Actinic Keratosis [...] of this encounter (statuses as of 09/09/2022) [facility] History of Past illness Narrative* Problem Noted Date Resolved Date CNH (chondrodermatitis nodularis helicis) 201009/21/2016 Neoplasm of uncertain behavi or of skin: R restoration face: R/O BCC 10/12/2011 09/21/2016 Actinic Keratosis [...] of this encounter (statuses as of 09/10/2022) [facility] History of Past illness Narrative* Problem Noted Date Resolved Date CNH (chondrodermatitis nodularis helicis) 201009/21/2016 Neoplasm of uncertain behavi or of skin: R restoration face: R/O BCC 10/12/2011 09/21/2016 Actinic Keratosis [...] of this encounter (statuses as of 09/14/2022) [facility] History of Past illness Narrative* Problem Noted Date Resolved Date CNH (chondrodermatitis nodularis helicis) 201009/21/2016 Neoplasm of uncertain behavi or of skin: R restoration face: R/O BCC 10/12/2011 09/21/2016 Actinic Keratosis [...] of this encounter (statuses as of 09/20/2022) [facility] History of Past illness Narrative* Problem Noted Date Resolved Date CNH (chondrodermatitis nodularis helicis) 201009/21/2016 Neoplasm of uncertain behavi or of skin: R restoration face: R/O BCC 10/12/2011 09/21/2016 Actinic Keratosis [...] of this encounter (statuses as of 09/21/2022) [facility] History of Past illness Narrative* Problem Noted Date Resolved Date CNH (chondrodermatitis nodularis helicis) 201009/21/2016 Neoplasm of uncertain behavi or of skin: R restoration face: R/O BCC 10/12/2011 09/21/2016 Actinic Keratosis [...] of this encounter (statuses as of 09/22/2022) [facility] History of Past illness Narrative* Problem Noted Date Resolved Date CNH (chondrodermatitis nodularis helicis) 201009/21/2016 Neoplasm of uncertain behavi or of skin: R restoration face: R/O BCC 10/12/2011 09/21/2016 Actinic Keratosis [...] of this encounter (statuses as of 10/22/2022) [facility] History of Past illness Narrative* Problem Noted Date Resolved Date CNH (chondrodermatitis nodularis helicis) 201009/21/2016 Neoplasm of uncertain behavi or of skin: R restoration face: R/O BCC 10/12/2011 09/21/2016 Actinic Keratosis [...] of this encounter (statuses as of 10/22/2022) [facility] History of Past illness Narrative* Problem Noted Date Resolved Date CNH (chondrodermatitis nodularis helicis) 201009/21/2016 Neoplasm of uncertain behavi or of skin: R restoration face: R/O BCC 10/12/2011 09/21/2016 Actinic Keratosis [...] of this encounter (statuses as of 11/04/2022) [facility] History of Past illness Narrative* Problem Noted Date Resolved Date CNH (chondrodermatitis nodularis helicis) 201009/21/2016 Neoplasm of uncertain behavi or of skin: R restoration face: R/O BCC 10/12/2011 09/21/2016 Actinic Keratosis [...] of this encounter (statuses as of 02/07/2023) [facility] History of Past illness Narrative* Problem Noted Date Resolved Date CNH (chondrodermatitis nodularis helicis) 201009/21/2016 Neoplasm of uncertain behavi or of skin: R restoration face: R/O BCC 10/12/2011 09/21/2016 Actinic Keratosis [...] of this encounter (statuses as of 02/11/2023) [facility] History of Past illness Narrative* Problem Noted Date Resolved Date CNH (chondrodermatitis nodularis helicis) 201009/21/2016 Neoplasm of uncertain behavi or of skin: R restoration face: R/O BCC 10/12/2011 09/21/2016 Actinic Keratosis [...] of this encounter (statuses as of 03/21/2023) [facility] History of Past illness Narrative* Problem Noted Date Resolved Date CNH (chondrodermatitis nodularis helicis) 201009/21/2016 Neoplasm of uncertain behavi or of skin: R restoration face: R/O BCC 10/12/2011 09/21/2016 Actinic Keratosis [...] of this encounter (statuses as of 03/22/2023) [facility] History of Past illness Narrative* Problem Noted Date Resolved Date CNH (chondrodermatitis nodularis helicis) 201009/21/2016 Neoplasm of uncertain behavi or of skin: R restoration face: R/O BCC 10/12/2011 09/21/2016 Actinic Keratosis [...] of this encounter (statuses as of 04/04/2023) [facility] History of Past illness Narrative* Problem Noted Date Resolved Date 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/21/2016 Neoplasm of uncertain behavi or of skin: R restoration face: R/O BCC 10/12/2011 09/21/2016 Actinic Keratosis [...] of this encounter (statuses as of 04/04/2023) [facility] History of Past illness Narrative* Problem Noted Date Diagnosed Date Resolved Date 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 09/21/2016 Neoplasm of uncertain behavi or of skin: R restoration face: R/O BCC 10/12/2011 09/21/2016 Actinic Keratosis [...] of this encounter (statuses as of 06/03/2023) [facility] History of Past illness Narrative* Problem Noted Date Diagnosed Date Resolved Date 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 09/21/2016 Neoplasm of uncertain behavi or of skin: R restoration face: R/O BCC 10/12/2011 09/21/2016 Actinic Keratosis [...] of this encounter (statuses as of 07/11/2023) [facility] History of Past illness Narrative* Problem Noted Date Diagnosed Date Resolved Date 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 09/21/2016 Neoplasm of uncertain behavi or of skin: R restoration face: R/O BCC 10/12/2011 09/21/2016 Actinic Keratosis [...] of this encounter (statuses as of 08/10/2023) [facility] History of Past illness Narrative* Problem Noted Date Diagnosed Date Resolved Date 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 09/21/2016 Neoplasm of uncertain behavi or of skin: R restoration face: R/O BCC 10/12/2011 09/21/2016 Actinic Keratosis [...] of this encounter (statuses as of 08/16/2023) [facility] History of Past illness Narrative* Problem Noted Date Diagnosed Date Resolved Date 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 09/21/2016 Neoplasm of uncertain behavi or of skin: R restoration face: R/O BCC 10/12/2011 09/21/2016 Actinic Keratosis [...] of this encounter (statuses as of 09/05/2023) [facility] History of Past illness Narrative* Problem Noted Date Diagnosed Date Resolved Date 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 09/21/2016 Neoplasm of uncertain behavi or of skin: R restoration face: R/O BCC 10/12/2011 09/21/2016 Actinic Keratosis [...] of this encounter (statuses as of 09/08/2023) [facility] History of Past illness Narrative* Problem Noted Date Diagnosed Date Resolved Date 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 09/21/2016 Neoplasm of uncertain behavi or of skin: R restoration face: R/O BCC 10/12/2011 09/21/2016 Actinic Keratosis [...] of this encounter (statuses as of 09/09/2023) [facility] History of Past illness Narrative* Problem Noted Date Diagnosed Date Resolved Date 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 09/21/2016 Neoplasm of uncertain behavi or of skin: R restoration face: R/O BCC 10/12/2011 09/21/2016 Actinic Keratosis [...] of this encounter (statuses as of 09/15/2023) [facility] History of Past illness Narrative* Problem Noted Date Diagnosed Date Resolved Date 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 09/21/2016 Neoplasm of uncertain behavi or of skin: R restoration face: R/O BCC 10/12/2011 09/21/2016 Actinic Keratosis [...] of this encounter (statuses as of 09/15/2023) [facility] History of Past illness Narrative* Problem Noted Date Diagnosed Date Resolved Date 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 09/21/2016 Neoplasm of uncertain behavi or of skin: R restoration face: R/O BCC 10/12/2011 09/21/2016 Actinic Keratosis [...] of this encounter (statuses as of 09/20/2023) [facility] History of Past illness Narrative* Problem Noted Date Diagnosed Date Resolved Date 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 09/21/2016 Neoplasm of uncertain behavi or of skin: R restoration face: R/O BCC 10/12/2011 09/21/2016 Actinic Keratosis [...] of this encounter (statuses as of 09/27/2023) [facility] History of Past illness Narrative* Problem Noted Date Diagnosed Date Resolved Date 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 09/21/2016 Neoplasm of uncertain behavi or of skin: R restoration face: R/O BCC 10/12/2011 09/21/2016 Actinic Keratosis [...] of this encounter (statuses as of 09/27/2023) [facility] History of Past illness Narrative* Problem Noted Date Diagnosed Date Resolved Date 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 09/21/2016 Neoplasm of uncertain behavi or of skin: R restoration face: R/O BCC 10/12/2011 09/21/2016 Actinic Keratosis [...] of this encounter (statuses as of 09/29/2023) [facility] note* Diagnosis Controlled type 2 diabetes mellitus without complication, without long-term current use of insulin ([facility])- Primary Bilateral carotid artery stenosis Occlusion and stenosis of carotid artery without mention of cerebral infarction Abdominal aortic aneurysm (AAA) without rupture ([facility]) Hyperlipidemia, unspecified hyperlipidemia type CALLI (obstructive sleep apnea) Obstructive sleep apnea (adult) (pediatric) [facility] Diagnosis Pain of toe, unspecified laterality- Primary [facility] Diagnosis Controlled type 2 diabetes mellitus without complication, without long-term current use of insulin ([facility])- Primary documented in this encounter [facility] note* Diagnosis Acute otitis media, right- Primary Unspecified otitis media [facility] Diagnosis Acute otitis externa of right [...] Stage 3 severe COPD by GOLD classification ([facility])- Primary Former cigarette smoker Personal history of tobacco use, presenting hazards to health Class 1 obesity due to excess calories with body mass index (BMI) of 33.0 to 33.9 in adult, unspecified whether serious comorbidity present documented in this encounter [facility] note* Diagnosis Stage 3 severe COPD by GOLD classification ([facility])- Primary Mild depressive disorder Bronchiectasis without complication (HCC) Bronchiectasis without acute exacerbation Controlled type 2 diabetes mellitus without complication, without long-term current use of insulin (HCC) documented in this encounter [facility] note* Diagnosis Controlled type 2 diabetes mellitus without complication, without long-term current use of insulin (HCC) documented in this encounter [facility] note* Diagnosis Post-void dribbling- Primary documented in this encounter [facility] note* Diagnosis Cigarette smoker- Primary Tobacco use disorder documented in this encounter [facility] note* Diagnosis History of stroke with residual [...] Stage 3 severe COPD by GOLD classification ([facility]) History of diabetes mellitus Personal history of other endocrine, metabolic, and immunity disorders Cerebrovascular accident (CVA), unspecified mechanism (HCC) Infarction of thalamus (HCC) CALLI (obstructive sleep apnea) Obstructive sleep apnea (adult) (pediatric) Lung nodules Other nonspecific abnormal finding of lung field documented in this encounter [facility] note* Diagnosis Moderate COPD (chronic obstructive pulmonary disease) (HCC)- Primary Chronic airway obstruction, not elsewhere classified Former cigarette smoker Personal history of tobacco use, presenting hazards to health documented in this encounter [facility] note* Diagnosis Encounter for screening for lung cancer- Primary Former cigarette smoker Personal history of tobacco use, presenting hazards to health documented in this encounter [facility] note* Diagnosis Abdominal aortic aneurysm (AAA) without rupture, unspecified part (HCC) documented in this encounter [facility] note* Diagnosis Personal history of tobacco use, presenting hazards to health- Primary documented in this encounter [facility] note* Diagnosis Cerebrovascular accident (CVA), unspecified mechanism (HCC)- Primary Controlled type 2 diabetes mellitus without complication, without long-term current use of insulin (HCC) History of diabetes mellitus Personal history of other endocrine, metabolic, and immunity disorders Infarction of thalamus (HCC) Hyperlipidemia, unspecified hyperlipidemia type documented in this encounter [facility] note* Diagnosis Controlled type 2 diabetes mellitus without complication, without long-term current use of insulin (HCC) documented in this encounter [facility] note* Diagnosis Controlled type 2 diabetes mellitus without complication, without long-term current use of insulin (HCC)- Primary documented in this encounter [facility] note* Diagnosis Cerebrovascular accident (CVA), unspecified mechanism (HCC)- Primary documented in this encounter [facility] note* Diagnosis Moderate COPD (chronic obstructive pulmonary disease) ([facility])- Primary Chronic airway obstruction, not elsewhere classified documented in this encounter [facility] note* Diagnosis Controlled type 2 diabetes mellitus without complication, without long-term current use of insulin ([facility])- Primary [facility] Diagnostic Procedure Only (Routine) - Closed Specialty Diagnoses / Procedures Referred By Starr yung Referred To Contact XR IMAGING Diagnoses Pain of toe, unspecified laterality Procedures XR TOE AP/LAT/OBL LEFT RADEX TOE MINIMUM 2 VIEWS Isabela Hernández APRN.CNP [address] [place] [address] Xr Imaging Referral ID Status Reason Start Date Expiration Date V isits Requested Visits Authorized [id number] Closed Auto-Generate d Referral 06/15/2022 07/15/2023 1 1 [facility] for referral (narrative)* Outpatient Procedure (Routine) - Authorized Specialty Diagnoses / Procedures Referred By Starr yung Referred To [facility] Diagnoses Bilateral carotid artery stenosis Procedures US CAROTID ARTERIES [facility] DUPLEX SCAN EXTRACRANIAL ART COMPL BI STUDY Lia Markham MD [address] [place] [address] [facility] [place] [facility] [place] [address] Referral ID Status Reason Start Date Expiration Date Visits Requested Visits Authorized [id number] Authorized Auto-Generat ed Referral 08/20/2022 08/20/2023 1 1 * Diagnostic Procedure Only (Routine) - Authorized Specialty Diagnoses / Procedures Referred By Contac t Referred To Contact US IMAGING Diagnoses Abdominal aortic aneurysm (AAA) without rupture Procedures US DOPPLER AORTA DUP-SCAN ARTL DANIS ABDL/PEL/SCROT&/[place] [address] [place] [id number] [facility] Imaging Referral ID Status Reason Start Date Expiration Date Visits Requested Visits Authorized [id number] Authorized Auto-Generat ed Referral 08/20/2022 09/19/2023 1 1 * Diagnostic Procedure Only (Routine) - Authorized Specialty Diagnoses / Procedures Referred By Contac t Referred To Contact US IMAGING Diagnoses Abdominal aortic aneurysm (AAA) without rupture Procedures US ABD AORTA US RETROPERITONEAL REAL TIME W/IMAGE LIMITED Lia Markham MD [address] [place] [id number] [facility] Referral ID Status Reason Start Date Expiration Date Visits Requested Visits Authorized [id number] Authorized Auto-Generat ed Referral 08/20/2022 09/19/2023 1 1 [facility] for referral (narrative)* Diagnostic Procedure Only (Routine) - Closed Specialty Diagnoses / Procedures Referred By Contac t Referred To Contact US IMAGING Diagnoses Abdominal aortic aneurysm (AAA) without rupture Procedures US DOPPLER AORTA DUP-SCAN ARTL DANIS ABDL/PEL/SCROT&/RPR ORGN Lia Donnelly MD [address] [place] [id number] [facility] Imaging Referral ID Status Reason Start Date Expiration Date V isits Requested Visits Authorized [id number] Closed Auto-Generate d Referral 08/20/2022 09/19/2023 1 1 * Diagnostic Procedure Only (Routine) - Closed Specialty Diagnoses / Procedures Referred By Starr t Referred To Contact US IMAGING Diagnoses Abdominal aortic aneurysm (AAA) without rupture Procedures US ABD AORTA US RETROPERITONEAL REAL TIME W/IMAGE LIMITED Lia Markham MD [address] [place] [address] Us Imaging Referral ID Status Reason Start Date Expiration Date V isits Requested Visits Authorized [id number] Closed Auto-Generate d Referral 08/20/2022 09/19/2023 1 1 [facility] for referral (narrative)* Outpatient Procedure (Routine) - Authorized Specialty Diagnoses / Procedures Referred By Starr yung Referred To Contact [facility] [place] Diagnoses SOB (shortness of breath) Procedures SPIROMETRY WITH DILATOR IF OBSTRUCTED BRNCDILAT RSPSE SPMTRY PRE&POST-BRNCDILAT ADMN Lia Markham MD [address] [place] [address] [facility] [place] [address] [place] [address] Referral ID Status Reason Start Date Expiration Date Visits Requested Visits Authorized [id number] Authorized Auto-Generat ed Referral 2 10/03/2023 1 1 * Outpatient Procedure (Routine) - Authorized Specialty Diagnoses / Procedures [facility] Diagnoses SOB (shortness of breath) Procedures LUNG DIFFUSION CAPACITY (DLCO) DIFFUSING CAPACITY Lia Markham MD [address] [place] [address] [address] Referral ID Status Reason Start Date Expiration Date Visits Requested Visits Authorized [id number] Authorized Auto-Generat ed Referral 2 10/03/2023 1 1 * Outpatient Procedure (Routine) - Authorized Specialty Diagnoses / Procedures Referred By Contac t Referred To Contact [facility] Diagnoses SOB (shortness of breath) Procedures LUNG VOLUMES Lia Markham MD [address] [place] [address] [facility] [place] [address] [place] [id number] Referral ID Status Reason Start Date Expiration Date Visits Requested Visits Authorized [id number] Authorized Auto-Generat ed Referral 2 10/03/2023 1 1 * Outpatient Procedure (Routine) - Authorized Specialty Diagnoses / Procedures Referred By Contac t Referred To Contact [facility] Diagnoses SOB (shortness of breath) Procedures ECG COMPLETE ECG ROUTINE ECG W/LEAST 12 LDS W/I&R Lia Markham MD [address] [place] [address] [facility] [address] [address] Referral ID Status Reason Start Date Expiration Date Visits Requested Visits Authorized [id number] Authorized Auto-Generat ed Referral 2 09/03/2023 1 1 [facility] for referral (narrative)* Diagnostic Procedure Only (Routine) - Authorized Specialty Diagnoses / Procedures [facility] Diagnoses Abdominal aortic aneurysm (AAA) without rupture, unspecified part (HCC) Procedures US DOPPLER AORTA DUP-SCAN ARTL DANIS ABDL/PEL/SCROT&/RPR ORGN LMT Lia Markham MD [address] [place] [address] [place] [address] Referral ID Status Reason Start Date Expiration Date Visits Requested Visits Authorized [id number] Authorized Auto-Generat ed Referral 3 10/13/2024 1 1 * Diagnostic Procedure Only (Routine) - Authorized Specialty Diagnoses / Procedures Referred By Contac t Referred To Contact US IMAGING Diagnoses Abdominal aortic aneurysm (AAA) without rupture, unspecified part (HCC) Procedures US ABD AORTA US RETROPERITONEAL REAL TIME W/IMAGE LIMITED Lia Markham MD [address] [place] [address] [place] [address] Referral ID Status Reason Start Date Expiration Date Visits Requested Visits Authorized [id number] Authorized Auto-Generat ed Referral 3 10/13/2024 1 1 * Consult, Test, Treat (Routine) - Authorized Specialty Diagnoses / Procedures Referred By Starr yung Referred To Contact Neurology Diagnoses Cerebrovascular accident (CVA), unspecified mechanism (HCC) Infarction of thalamus (HCC) Procedures CONSULT TO NEUROLOGY OFFICE/OUTPATIENT [facility] 60-74 MINUTES Lia Markham MD [address] [place] [address] Referral ID Status Reason Start Date Expiration Date Visits Requested Visits Authorized [id number] Authorized PCP Requested Referral 3 09/13/2024 1 1 * Occupational Therapy (Routine) - Authorized Specialty Diagnoses / Procedures Referred By Starr yung Referred To Contact [facility] Diagnoses History of stroke with residual effects Procedures CONSULT TO MACHINE STRIPER OCCUPATIONAL THERAPY EVAL HIGH COMPLEX 60 MINS Lia Markham MD [address] [place] [address] [facility] [address] [address] Referral ID Status Reason Start Date Expiration Date Visits Requested Visits Authorized [id number] Authorized PCP Requested Referral Auto-Generate d Referral 3 09/13/2024 99 99 * Speech Therapy (Routine) - Authorized Specialty Diagnoses / Procedures Referred By Starr yung Referred To Contact [facility] Diagnoses History of stroke with residual effects Procedures CONSULT TO SPEECH THERAPY OFFICE/OUTPATIENT [facility] 60-74 MINUTES Lia Markham MD [address] [place] [address] [address] Referral ID Status Reason Start Date Expiration Date Visits Requested Visits Authorized [id number] Authorized Auto-Generat ed Referral 3 09/13/2024 99 99 * Physical Therapy (Routine) - Authorized Specialty Diagnoses / Procedures Referred By Starr t Referred To Contact [facility] Diagnoses History of stroke with residual effects Procedures CONSULT TO PHYSICAL THERAPY PHYSICAL THERAPY EVALUATION HIGH COMPLEX [place] [address] [place], [place] [id number] [address] [address] Referral ID Status Reason Start Date Expiration Date Visits Requested Visits Authorized [id number] Authorized PCP Requested Referral Auto-Generate d Referral 3 09/13/2024 99 99 [facility] for referral (narrative)* Diagnostic Procedure Only (Routine) - Closed Specialty Diagnoses / Procedures Referred By Starr yung Referred To Contact US IMAGING Diagnoses Abdominal aortic aneurysm (AAA) without rupture, unspecified part (HCC) Procedures US DOPPLER AORTA DUP-SCAN ARTL DANIS ABDL/PEL/SCROT&/RPR ORGN LMT Lia Markham MD [address] [place] [address] Us Imaging [facility] Referral ID Status Reason Start Date Expiration Date V isits Requested Visits Authorized [id number] Closed Auto-Generate d Referral 09/14/2023 10/13/2024 1 1 * Diagnostic Procedure Only (Routine) - Closed Specialty Diagnoses / Procedures Referred By Starr yung Referred To Contact US IMAGING Diagnoses Abdominal aortic aneurysm (AAA) without rupture, unspecified part (HCC) Procedures US ABD AORTA US RETROPERITONEAL REAL TIME W/IMAGE LIMITED Lia Markham MD [address] [place] [address] [place] [address] Referral ID Status Reason Start Date Expiration Date V isits Requested Visits Authorized [id number] Closed Auto-Generate d Referral 09/14/2023 10/13/2024 1 1 [facility] Advance Directives Documents on File Type Date Recorded Patient Manufacturing Technology Analyst Expl anation Advance Directive(s) 10/06/2021 6:19 AM Advance Directive(s) 09/15/2021 10:31 AM Advance Directive(s) 06/06/2017 8:13 AM Documents on File Type Date Recorded Patient Manufacturing Technology Analyst Expl anation Advance Directive(s) 10/06/2021 6:19 AM [...] unspecified laterality Procedures CONSULT TO PODIATRY OFFICE/OUTPATIENT [facility] HIGH MDM 60-74 MINUTES Lia Markham MD [address] [place] [address] Referral ID Status Reason Start Date Expiration Date Visits Requested Visits Authorized [id number] Authorized PCP Requested Referral 06/25/2022 06/25/2023 1 1 Specialty Diagnoses / Procedures Referred By Contac t Referred To Contact CT IMAGING Diagnoses Lung fibrosis (HCC) SOB (shortness of breath) Procedures CT CHEST WO IVCON DIAGNOSTIC COMPUTED TOMOGRAPHY THORAX W/O CNTRST Lia Markham MD [address] [place] [address] [address] Referral ID Status Reason Start Date Expiration Date V isits Requested Visits Authorized [id number] Closed Auto-Generate d Referral 09/03/2022 10/03/2023 1 1 Specialty Diagnoses / Procedures Referred By Contac t Referred To Contact [facility] Diagnoses SOB (shortness of breath) Procedures CONSULT TO PULM/CRITICAL CARE OFFICE/OUTPATIENT [facility] MDM 60-74 MINUTES Lia Markham MD [address] [place] [address] Referral ID Status Reason Start Date Expiration Date Visits Requested Visits Authorized [id number] Authorized PCP Requested Referral 2 09/07/2023 1 1 Specialty Diagnoses / Procedures Referred By Contac t Referred To Contact Urology Diagnoses Post-void dribbling Procedures CONSULT TO UROLOGY Lia Markham MD [address] [place] [address] Referral ID Status Reason Start Date Expiration Date Visits Requested Visits Authorized [id number] Ref Not Required PCP Requested Referral 02/11/2023 02/11/2024 1 1 Specialty Diagnoses / Procedures Referred By Contac t Referred To Contact CT IMAGING Diagnoses Former cigarette smoker Procedures CT LUNG SCREEN WO IVCON COMPUTED TOMOGRAPHY THORAX LW DOSE LNG CA SCR C- Andres Dotson, SUBSTANCE ADDICTION COORDINATOR.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 [address] [place] [id number] [facility] Referral ID Status Reason Start Date Expiration Date Visits Requested Visits Authorized [id number] Authorized Auto-Generat ed Referral 3 10/19/2024 1 1 Specialty Diagnoses / Procedures Referred By Contac t Referred To Contact CT IMAGING Diagnoses Personal history of tobacco use, presenting hazards to health Procedures CT LUNG SCREEN WO IVCON COMPUTED TOMOGRAPHY THORAX LW DOSE LNG CA SCR C- Angeles Lopez, SUBSTANCE ADDICTION COORDINATOR.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 [address] [place] [address] [place] [address] Referral ID Status Reason Start Date Expiration Date Visits Requested Visits Authorized [id number] Pending Review Auto-Generat ed Referral 09/29/2023 10/28/2024 [...] or prosecute any alcohol or drug abuse patient.[facility] the event this information is protected by the Federal Confidentiality of Alcohol and Drug Abuse Patient Records regulations: The Federal rules restrict any use of the information to criminally investigate or prosecute any alcohol or drug abuse patient.[facility]In the event this information is protected by the Federal Confidentiality of Alcohol and Drug Abuse Patient Records regulations: The Federal rules restrict any use of the information to criminally investigate or prosecute any alcohol or drug abuse patient.[facility]In the event this information is protected by the Federal Confidentiality of Alcohol and Drug Abuse Patient Records regulations: The Federal rules restrict any use of the information to criminally investigate or prosecute any alcohol or drug abuse patient.[facility] HospitalIn the event this information is protected by the Federal Confidentiality of Alcohol and Drug Abuse Patient Records regulations: The Federal rules restrict any use of the information to criminally investigate or prosecute any alcohol or drug abuse patient.[facility]In the event this information is protected by the Federal Confidentiality of Alcohol and Drug Abuse Patient Records regulations: The Federal rules restrict any use of the information to criminally investigate or prosecute any alcohol or drug abuse patient.[facility] HospitalIn the event this information is protected by the Federal Confidentiality of Alcohol and Drug Abuse Patient Records regulations: The Federal rules restrict any use of the information to criminally investigate or prosecute any alcohol or drug abuse patient.[facility] HospitalIn the event this information is protected by the Federal Confidentiality of Alcohol and Drug Abuse Patient Records regulations: The Federal rules restrict any use of the information to criminally investigate or prosecute any alcohol or drug abuse patient.[facility] HospitalIn the event this information is protected by the Federal Confidentiality of Alcohol and Drug Abuse Patient Records regulations: The Federal rules restrict any use of the information to criminally investigate or prosecute any alcohol or drug abuse patient.[facility] HospitalIn the event this information is protected by the Federal Confidentiality of Alcohol and Drug Abuse Patient Records regulations: The Federal rules restrict any use of the information to criminally investigate or prosecute any alcohol or drug abuse patient.[facility] HospitalIn the event this information is protected by the Federal Confidentiality of Alcohol and Drug Abuse Patient Records regulations: The Federal rules restrict any use of the information to criminally investigate or prosecute any alcohol or drug abuse patient.[facility] HospitalIn the event this information is protected by the Federal Confidentiality of Alcohol and Drug Abuse Patient Records regulations: The Federal rules restrict any use of the information to criminally investigate or prosecute any alcohol or drug abuse patient.[facility] HospitalIn the event this information is protected by the Federal Confidentiality of Alcohol and Drug Abuse Patient Records regulations: The Federal rules restrict any use of the information to criminally investigate or prosecute any alcohol or drug abuse patient.[facility] HospitalIn the event this information is protected by the Federal Confidentiality of Alcohol and Drug Abuse Patient Records regulations: The Federal rules restrict any use of the information to criminally investigate or prosecute any alcohol or drug abuse patient.[facility] HospitalIn the event this information is protected by the Federal Confidentiality of Alcohol and Drug Abuse Patient Records regulations: The Federal rules restrict any use of the information to criminally investigate or prosecute any alcohol or drug abuse patient.[facility] HospitalIn the event this information is protected by the Federal Confidentiality of Alcohol and Drug Abuse Patient Records regulations: The Federal rules restrict any use of the information to criminally investigate or prosecute any alcohol or drug abuse patient.[facility] HospitalIn the event this information is protected by the Federal Confidentiality of Alcohol and Drug Abuse Patient Records regulations: The Federal rules restrict any use of the information to criminally investigate or prosecute any alcohol or drug abuse patient.[facility] HospitalIn the event this information is protected by the Federal Confidentiality of Alcohol and Drug Abuse Patient Records regulations: The Federal rules restrict any use of the information to criminally investigate or prosecute any alcohol or drug abuse patient.[facility] HospitalIn the event this information is protected by the Federal Confidentiality of Alcohol and Drug Abuse Patient Records regulations: The Federal rules restrict any use of the information to criminally investigate or prosecute any alcohol or drug abuse patient.[facility] HospitalIn the event this information is protected by the Federal Confidentiality of Alcohol and Drug Abuse Patient Records regulations: The Federal rules restrict any use of the information to criminally investigate or prosecute any alcohol or drug abuse patient.[facility] HospitalIn the event this information is protected by the Federal Confidentiality of Alcohol and Drug Abuse Patient Records regulations: The Federal rules restrict any use of the information to criminally investigate or prosecute any alcohol or drug abuse patient.[facility] HospitalIn the event this information is protected by the Federal Confidentiality of Alcohol and Drug Abuse Patient Records regulations: The Federal rules restrict any use of the information to criminally investigate or prosecute any alcohol or drug abuse patient.[facility] HospitalIn the event this information is protected by the Federal Confidentiality of Alcohol and Drug Abuse Patient Records regulations: The Federal rules restrict any use of the information to criminally investigate or prosecute any alcohol or drug abuse patient.[facility] HospitalIn the event this information is protected by the Federal Confidentiality of Alcohol and Drug Abuse Patient Records regulations: The Federal rules restrict any use of the information to criminally investigate or prosecute any alcohol or drug abuse patient.[facility] HospitalIn the event this information is protected by the Federal Confidentiality of Alcohol and Drug Abuse Patient Records regulations: The Federal rules restrict any use of the information to criminally investigate or prosecute any alcohol or drug abuse patient.[facility] HospitalIn the event this information is protected by the Federal Confidentiality of Alcohol and Drug Abuse Patient Records regulations: The Federal rules restrict any use of the information to criminally investigate or prosecute any alcohol or drug abuse patient.[facility] HospitalIn the event this information is protected by the Federal Confidentiality of Alcohol and Drug Abuse Patient Records regulations: The Federal rules restrict any use of the information to criminally investigate or prosecute any alcohol or drug abuse patient.[facility] HospitalIn the event this information is protected by the Federal Confidentiality of Alcohol and Drug Abuse Patient Records regulations: The Federal rules restrict any use of the information to criminally investigate or prosecute any alcohol or drug abuse patient.[facility] HospitalIn the event this information is protected by the Federal Confidentiality of Alcohol and Drug Abuse Patient Records regulations: The Federal rules restrict any use of the information to criminally investigate or prosecute any alcohol or drug abuse patient.[facility] HospitalIn the event this information is protected by the Federal Confidentiality of Alcohol and Drug Abuse Patient Records regulations: The Federal rules restrict any use of the information to criminally investigate or prosecute any alcohol or drug abuse patient.[facility] HospitalIn the event this information is protected by the Federal Confidentiality of Alcohol and Drug Abuse Patient Records regulations: The Federal rules restrict any use of the information to criminally investigate or prosecute any alcohol or drug abuse patient.[facility] HospitalIn the event this information is protected by the Federal Confidentiality of Alcohol and Drug Abuse Patient Records regulations: The Federal rules restrict any use of the information to criminally investigate or prosecute any alcohol or drug abuse patient.[facility] HospitalIn the event this information is protected by the Federal Confidentiality of Alcohol and Drug Abuse Patient Records regulations: The Federal rules restrict any use of the information to criminally investigate or prosecute any alcohol or drug abuse patient.[facility] HospitalIn the event this information is protected by the Federal Confidentiality of Alcohol and Drug Abuse Patient Records regulations: The Federal rules restrict any use of the information to criminally investigate or prosecute any alcohol or drug abuse patient.[facility] HospitalIn the event this information is protected by the Federal Confidentiality of Alcohol and Drug Abuse Patient Records regulations: The Federal rules restrict any use of the information to criminally investigate or prosecute any alcohol or drug abuse patient.[facility] HospitalIn the event this information is protected by the Federal Confidentiality of Alcohol and Drug Abuse Patient Records regulations: The Federal rules restrict any use of the information to criminally investigate or prosecute any alcohol or drug abuse patient.[facility] HospitalIn the event this information is protected by the Federal Confidentiality of Alcohol and Drug Abuse Patient Records regulations: The Federal rules restrict any use of the information to criminally investigate or prosecute any alcohol or drug abuse patient.[facility] HospitalIn the event this information is protected by the Federal Confidentiality of Alcohol and Drug Abuse Patient Records regulations: The Federal rules restrict any use of the information to criminally investigate or prosecute any alcohol or drug abuse patient.[facility] HospitalIn the event this information is protected by the Federal Confidentiality of Alcohol and Drug Abuse Patient Records regulations: The Federal rules restrict any use of the information to criminally investigate or prosecute any alcohol or drug abuse patient.[facility] HospitalIn the event this information is protected by the Federal Confidentiality of Alcohol and Drug Abuse Patient Records regulations: The Federal rules restrict any use of the information to criminally investigate or prosecute any alcohol or drug abuse patient.[facility] HospitalIn the event this information is protected by the Federal Confidentiality of Alcohol and Drug Abuse Patient Records regulations: The Federal rules restrict any use of the information to criminally investigate or prosecute any alcohol or drug abuse patient.[facility] HospitalIn the event this information is protected by the Federal Confidentiality of Alcohol and Drug Abuse Patient Records regulations: The Federal rules restrict any use of the information to criminally investigate or prosecute any alcohol or drug abuse patient.[facility] HospitalIn the event this information is protected by the Federal Confidentiality of Alcohol and Drug Abuse Patient Records regulations: The Federal rules restrict any use of the information to criminally investigate or prosecute any alcohol or drug abuse patient.[facility] HospitalIn the event this information is protected by the Federal Confidentiality of Alcohol and Drug Abuse Patient Records regulations: The Federal rules restrict any use of the information to criminally investigate or prosecute any alcohol or drug abuse patient.[facility] HospitalIn the event this information is protected by the Federal Confidentiality of Alcohol and Drug Abuse Patient Records regulations: The Federal rules restrict any use of the information to criminally investigate or prosecute any alcohol or drug abuse patient.[facility] HospitalIn the event this information is protected by the Federal Confidentiality of Alcohol and Drug Abuse Patient Records regulations: The Federal rules restrict any use of the information to criminally investigate or prosecute any alcohol or drug abuse patient.[facility] HospitalIn the event this information is protected by the Federal Confidentiality of Alcohol and Drug Abuse Patient Records regulations: The Federal rules restrict any use of the information to criminally investigate or prosecute any alcohol or drug abuse patient.[facility] HospitalIn the event this information is protected by the Federal Confidentiality of Alcohol and Drug Abuse Patient Records regulations: The Federal rules restrict any use of the information to criminally investigate or prosecute any alcohol or drug abuse patient.[facility] HospitalIn the event this information is protected by the Federal Confidentiality of Alcohol and Drug Abuse Patient Records regulations: The Federal rules restrict any use of the information to criminally investigate or prosecute any alcohol or drug abuse patient.[facility] HospitalIn the event this information is protected by the Federal Confidentiality of Alcohol and Drug Abuse Patient Records regulations: The Federal rules restrict any use of the information to criminally investigate or prosecute any alcohol or drug abuse patient.[facility] HospitalIn the event this information is protected by the Federal Confidentiality of Alcohol and Drug Abuse Patient Records regulations: The Federal rules restrict any use of the information to criminally investigate or prosecute any alcohol or drug abuse patient.[facility] HospitalIn the event this information is protected by the Federal Confidentiality of Alcohol and Drug Abuse Patient Records regulations: The Federal rules restrict any use of the information to criminally investigate or prosecute any alcohol or drug abuse patient.[facility] HospitalIn the event this information is protected by the Federal Confidentiality of Alcohol and Drug Abuse Patient Records regulations: The Federal rules restrict any use of the information to criminally investigate or prosecute any alcohol or drug abuse patient.[facility] HospitalIn the event this information is protected by the Federal Confidentiality of Alcohol and Drug Abuse Patient Records regulations: The Federal rules restrict any use of the information to criminally investigate or prosecute any alcohol or drug abuse patient.[facility] HospitalIn the event this information is protected by the Federal Confidentiality of Alcohol and Drug Abuse Patient Records regulations: The Federal rules restrict any use of the information to criminally investigate or prosecute any alcohol or drug abuse patient.[facility] HospitalIn the event this information is protected by the Federal Confidentiality of Alcohol and Drug Abuse Patient Records regulations: The Federal rules restrict any use of the information to criminally investigate or prosecute any alcohol or drug abuse patient.[facility] HospitalIn the event this information is protected by the Federal Confidentiality of Alcohol and Drug Abuse Patient Records regulations: The Federal rules restrict any use of the information to criminally investigate or prosecute any alcohol or drug abuse patient.[facility] HospitalIn the event this information is protected by the Federal Confidentiality of Alcohol and Drug Abuse Patient Records regulations: The Federal rules restrict any use of the information to criminally investigate or prosecute any alcohol or drug abuse patient.[facility] HospitalIn the event this information is protected by the Federal Confidentiality of Alcohol and Drug Abuse Patient Records regulations: The Federal rules restrict any use of the information to criminally investigate or prosecute any alcohol or drug abuse patient.[facility] HospitalIn the event this information is protected by the Federal Confidentiality of Alcohol and Drug Abuse Patient Records regulations: The Federal rules restrict any use of the information to criminally investigate or prosecute any alcohol or drug abuse patient.[facility] HospitalIn the event this information is protected by the Federal Confidentiality of Alcohol and Drug Abuse Patient Records regulations: The Federal rules restrict any use of the information to criminally investigate or prosecute any alcohol or drug abuse patient.[facility] HospitalIn the event this information is protected by the Federal Confidentiality of Alcohol and Drug Abuse Patient Records regulations: The Federal rules restrict any use of the information to criminally investigate or prosecute any alcohol or drug abuse patient.[facility] Reason for Visit (unrecogniz ed section [...] REAL TIME W/IMAGE LIMITED Lia Markham MD [address] [place] [id number] Us [facility] Referral ID Status Reason Start Date Expiration Date V isits Requested Visits Authorized [id number] Closed Auto-Generate d Referral 08/20/2022 09/19/2023 1 1 Reason Comments Breathing Problem Reason Comments Shortness of Breath SOB on exertion X 1 yr Reason Comments Spirometry Specialty Diagnoses / Procedures Referred By Contac t Referred To Contact [facility] Diagnoses SOB (shortness of breath) Procedures SPIROMETRY WITH DILATOR IF OBSTRUCTED BRNCDILAT RSPSE SPMTRY PRE&POST-BRNCDILAT ADMN Lia Markham MD [address] [place] [phone] [facility] [place] [address] Referral ID Status Reason Start Date Expiration Date V isits Requested Visits Authorized [id number] Closed Auto-Generate d Referral 09/03/2022 10/03/2023 1 1 Specialty Diagnoses / Procedures Referred By Contac t Referred To Contact [facility] Diagnoses SOB (shortness of breath) Procedures LUNG VOLUMES Lia Markham MD [address] [place] [id number] [facility] [place] [address] Referral ID Status Reason Start Date Expiration Date V isits Requested Visits Authorized [id number] Closed Auto-Generate d Referral 09/03/2022 10/03/2023 1 [address] Specialty Diagnoses / Procedures Referred By Contac t Referred To Contact CT IMAGING Diagnoses Lung fibrosis (HCC) SOB (shortness of breath) Procedures CT CHEST WO IVCON DIAGNOSTIC COMPUTED TOMOGRAPHY THORAX W/O CNTRST Lia Markham MD [address] [place] [address] Ct Imaging Referral ID Status Reason Start Date Expiration Date V isits Requested Visits Authorized [id number] Closed Auto-Generate d Referral 09/03/2022 10/03/2023 1 1 Reason Comments Results Reason Comments Consult Reason Comments fax request Reason Comments New Patient Dyspnea Shortness of Breath Specialty Diagnoses / Procedures Referred By Contac t Referred To Contact Pulmonary and Critical Care Medicine Diagnoses SOB (shortness of breath) Procedures CONSULT TO PULM/CRITICAL CARE OFFICE/OUTPATIENT NEW HIGH MDM 60-74 MINUTES Lia Markham MD [address] [place] [address] Referral ID Status Reason Start Date Expiration Date V isits Requested Visits Authorized [id number] Closed PCP Requested Referral 09/07/2022 09/07/2023 1 [...] TIME W/IMAGE LIMITED Lia Markham MD [address] [place] [address] [place] [address] Referral ID Status Reason Start Date Expiration Date V isits Requested Visits Authorized [id number] Closed Auto-Generate d Referral 09/14/2023 10/13/2024 1 1 Reason Comments Patient Update Care Teams (unrecognized sec tion and content) Hyperbaric Technologist Relationship Specialty Start Date End Date Lia Markham MD [address] [place] [address] PCP - General Family Practice 11/7/12 Hyperbaric Technologist Relationship Specialty Start Date End Date Lia Markhma MD [address] [place] [address] PCP - General Family Practice 09/27/12 Hyperbaric Technologist Relationship Specialty Start Date End Date Lia Markham MD [address] [place] [address] PCP - General Family Practice 09/27/12 Hyperbaric Technologist Relationship Specialty Start Date End Date Lia Markham MD [address] [place] [address] PCP - General Family Practice 09/27/12 Hyperbaric Technologist Relationship Specialty Start Date End Date Lia Markham MD [address] [place] [address] PCP - General Family Practice 09/27/12 Hyperbaric Technologist Relationship Specialty Start Date End Date Lia Markham MD [address] [place] [address] PCP - General Family Practice 09/27/12 Hyperbaric Technologist Relationship Specialty Start Date End Date Lia Markham MD [address] [place] [address] PCP - General Family Practice 09/27/12 Hyperbaric Technologist Relationship Specialty Start Date End Date Lia Markham MD [address] [place] [address] PCP - General Family Practice 09/27/12 Hyperbaric Technologist Relationship Specialty Start Date End Date Lia Markham MD [address] [place] [address] PCP - General Family Practice 09/27/12 Hyperbaric Technologist Relationship Specialty Start Date End Date Lia Markham MD [address] [place] [address] PCP - General Family Medicine 09/27/12 Hyperbaric Technologist Relationship Specialty Start Date End Date Lia Markham MD [address] [place] [address] PCP - General Family Medicine 09/27/12 Hyperbaric Technologist Relationship Specialty Start Date End Date Lia Markham MD [address] [place] [address] PCP - General Family Medicine 09/27/12 Hyperbaric Technologist Relationship Specialty Start Date End Date Lia Markham MD [address] [place] [address] PCP - General Family Medicine 09/27/12 Hyperbaric Technologist Relationship Specialty Start Date End Date Lia Markham MD [address] [place] [address] PCP - General Family Medicine 09/27/12 Hyperbaric Technologist Relationship Specialty Start Date End Date Lia Markham MD [address] [place] [address] PCP - General Family Medicine 09/27/12 Hyperbaric Technologist Relationship Specialty Start Date End Date Lia Markham MD [address] [place] [address] PCP - General Family Medicine 09/27/12 Hyperbaric Technologist Relationship Specialty Start Date End Date Lia Markham MD [address] [place] [address] PCP - General Family Medicine 09/27/12 Hyperbaric Technologist Relationship Specialty Start Date End Date Lia Markham MD [address] [place] [address] PCP - General Family Medicine 09/27/12 Hyperbaric Technologist Relationship Specialty Start Date End Date Lia Markham MD [address] [place] [address] PCP - General Family Medicine 09/27/12 Hyperbaric Technologist Relationship Specialty Start Date End Date Lia Markham MD [address] [place] [address] PCP - General Family Medicine 09/27/12 Hyperbaric Technologist Relationship Specialty Start Date End Date Lia Markham MD [address] [place] [address] PCP - General Family Medicine 09/27/12 Hyperbaric Technologist Relationship Specialty Start Date End Date Lia Markham MD [address] [place] [address] PCP - General Family Medicine 09/27/12 Hyperbaric Technologist Relationship Specialty Start Date End Date Lia Markham MD [address] [place] [address] PCP - General Family Medicine 09/27/12 Hyperbaric Technologist Relationship Specialty Start Date End Date Lia Markham MD [address] [place] [address] PCP - General Family Medicine 09/27/12 Hyperbaric Technologist Relationship Specialty Start Date End Date Lia Markham MD [address] [place] [address] PCP - General Family Medicine 09/27/12 Hyperbaric Technologist Relationship Specialty Start Date End Date Lia Markham MD [address] [place] [address] PCP - General Family Medicine 09/27/12 Hyperbaric Technologist Relationship Specialty Start Date End Date Lia Markham MD [address] [place] [address] PCP - General Family Medicine 09/27/12 Hyperbaric Technologist Relationship Specialty Start Date End Date Lia Markham MD [address] [place] [address] PCP - General Family Medicine 09/27/12 Hyperbaric Technologist Relationship Specialty Start Date End Date Lia Markham MD [address] [place] [address] PCP - General Family Medicine 09/27/12 Hyperbaric Technologist Relationship Specialty Start Date End Date Lia Markham MD [address] [place] [address] PCP - General Family Medicine 09/27/12 Hyperbaric Technologist Relationship Specialty Start Date End Date Lia Markham MD [address] [place] [address] PCP - General Family Medicine 09/27/12 Hyperbaric Technologist Relationship Specialty Start Date End Date Lia Markham MD [address] [place] [address] PCP - General Family Medicine 09/27/12 Hyperbaric Technologist Relationship Specialty Start Date End Date Lia Markham MD [address] [place] [address] PCP - General Family Medicine 09/27/12 Hyperbaric Technologist Relationship Specialty Start Date End Date Lia Markham MD [address] [place] [address] PCP - General Family Medicine 09/27/12 Hyperbaric Technologist Relationship Specialty Start Date End Date Lia Markham MD [address] [place] [address] PCP - General Family Medicine 09/27/12 Hyperbaric Technologist Relationship Specialty Start Date End Date Lia Markham MD [address] [place] [address] PCP - General Family Medicine 09/27/12 Carly Banks MD [address] [place] [address] Pulmonary and Critical Care Medicine 09/20/23 Hyperbaric Technologist Relationship Specialty Start Date End Date Lia Markham MD [address] [place] [address] PCP - General Family Medicine 09/27/12 Carly Banks MD [address] [place] [address] Pulmonary and Critical Care Medicine 09/20/23 Hyperbaric Technologist Relationship Specialty Start Date End Date Lia Markham MD [address] [place] [address] PCP - General Family Medicine 09/27/12 Carly Banks MD [address] [place] [address] Pulmonary and Critical Care Medicine 09/20/23 Hyperbaric Technologist Relationship Specialty Start Date End Date Lia Markham MD [address] [place] [address] PCP - General Family Medicine 09/27/12 Carly Banks MD [address] [place] [address] Pulmonary and Critical Care Medicine 09/20/23 Hyperbaric Technologist Relationship Specialty Start Date End Date Lia Markham MD [address] [place] [address] PCP - General Family Medicine 09/27/12 Carly Banks MD [address] [place] [address] Pulmonary and Critical Care Medicine 09/20/23 Hyperbaric Technologist Relationship Specialty Start Date End Date Lia Markham MD [address] [place] [address] PCP - General Family Medicine 09/27/12 Carly Banks MD [address] [place] [address] Pulmonary and Critical Care Medicine 09/20/23 Hyperbaric Technologist Relationship Specialty Start Date End Date Lia Markham MD [address] [place] [address] PCP - General Family Medicine 09/27/12 Carly Banks MD [address] [place] [address] Pulmonary and Critical Care Medicine 09/20/23 Hyperbaric Technologist Relationship Specialty Start Date End Date Lia Markham MD [address] [place] [address] PCP - General Family Medicine 09/27/12 Carly Banks MD [address] [place] [address] Pulmonary and Critical Care Medicine 09/20/23 Hyperbaric Technologist Relationship Specialty Start Date End Date Lia Markham MD [address] [place] [address] PCP - General Family Medicine 09/27/12 Carly Banks MD [address] [place], [place] [address] [phone] Pulmonary and Critical Care Medicine 09/20/23 Hyperbaric Technologist Relationship Specialty Start Date End Date Lia Markham MD [address] [facility] [place] [address] PCP - General Family Medicine 09/27/12 Carly Banks MD [address] [place] [address] Pulmonary and Critical Care Medicine 09/20/23 Hyperbaric Technologist Relationship Specialty Start Date End Date Lia Markham MD [address] [facility] [place] [address] PCP - General Family Medicine 09/27/12 Carly Banks MD [address] [place] [address] Pulmonary and Critical Care Medicine 09/20/23 Hyperbaric Technologist Relationship Specialty Start Date End Date Lia Markham MD [address] [place] [address] PCP - General Family Medicine 09/27/12 Carly Banks MD [address] [place], [place] [address] [phone] Pulmonary and Critical Care Medicine 09/20/23 (unrecognized [...] BE BASED ON THE PRIMARY CLINICAL RECORDS. [facility]. provides no warranty or guarantee of the accuracy or completeness of information in this document.
--- NOTE | 2024-01-05 22:43 | EKG12_ITS ---
Test Reason : PRE-OP Blood Pressure : / mmHG Vent. Rate : 075 BPM Atrial Rate : 075 BPM P-R Int : 134 ms QRS Dur : 070 ms QT Int : 410 ms P-R-T Axes : 059 -10 032 degrees QTc Int : 457 ms Sinus rhythm with Premature atrial complexes Otherwise normal ECG When compared with ECG of 03-JAN-2024 21:34, Premature atrial complexes are now Present Confirmed by Walter Zamorano ([id number]), editor news UMANG TURNER ([id number]) on 01/06/2024 9:53:14 AM Referred By: JAKE Confirmed By:Walter Zamorano
[2024-01-05] MEDS: Tamsulosin HCl 0.4 MG Capsule 0.400000000000000022 MG PO (23:15)
[2024-01-05] MEDS: Atorvastatin Calcium 80 MG Tablet PO (23:15)
[2024-01-05] MEDS: Insulin Glargine-YFGN 100 UNIT/ML Pen 30 UNIT SC (23:15)
[2024-01-05 23:58] LABS: Bedside Glucose 169 mg/dL (74-106)
[2024-01-06] VITALS (14 sets, daily range): BP systolic 85–174; BP diastolic 49–84; PULSE 59–85; RESP 16–20; TEMP 36.3–36.8; O2SAT 91–97; BMI 28.4
--- NOTE | 2024-01-06 | FLU_PTH ---
PATHOLOGY RESULTS PATIENT: OLGA RODRIGUEZ LOC: MS3 U#:[id number] AGE/SX: 68/M ROOM: [facility] [place] RE01/05/[address]: Dr. Olga Marinelli DO : 1955 BED: 1 DIS: 01/07/2024 SPEC #: [id number] RECD: 01/09/24 08:21 STATUS: SOUAbdoulaye REQ #: [id number] CARLOTTA: 01/06/24 00:[address]: Ronnie Hannon DEPT: CYTOLOGY RECD BY: Darrion Main ENTERED: 01/09/24 08:22 SP TYPE: Fluid OTHR DR: DO Dr. Olga Forrester DO Dr. William Lago, MD Tissues: Biliary tract, NOS Procedures: Special Stain Group II Surgery Specimen Level IV Cytospin Fluid Comments: @ Ordering doctor for SSII edited from to @ by HERBIE at 01/09/24 1427 @ Ordering doctor for SUIV edited from to DR.RFRIEN Ayon by HERBIE at 01/09/24 1427 @ Ordering doctor for CYSPIN edited from to @ by HERBIE at 01/09/24 1427 @ Submitting doctor edited from to @ by RGOOD at 01/09/24 1427 HEADER OPERATION: ERCP, Spyglass, balloon dilation, stent exchange PRE-OP DIAGNOSIS: Common bile duct dilation, hyperbilirubinemia, elevated alk phos TISSUE SUBMITTED: Stent fluid for cytology DIAGNOSIS CYTOLOGY Stent fluid for cytology (cytospin and cell block): Negative for malignant cells. See comment. VASYL:shelby 01/10/2024 COMMENT Clinical correlation and appropriate follow up are necessary. Please make reference to additional specimen ([id number]), biliary stricture, Spyglass biopsy with diagnosis of chronic inflammation and negative for malignancy. CYTOLOGY STUDY Slides are reviewed. CYTOLOGY GROSS Received is a stent with adherent minute fragments of macias-red tissue in <0.25 ml of white cloudy fluid and labeled with the patient's name and and designated per the requisition as stent. The material is dislodged from the stent and submitted for cytology preparation including cell block. / shelby 01/09/2024 TC:5 CPT: 09201, 80119
--- NOTE | 2024-01-06 | MISC_PTH ---
PATHOLOGY RESULTS PATIENT: OLGA RODRIGUEZ LOC: MS3 U#:[id number] AGE/SX: 68/M ROOM: [facility] RE01/05/[address]: Dr. Olga Marinelli DO : 1955 BED: 1 DIS: 01/07/2024 SPEC #: [id number] RECD: 01/09/24 08:18 STATUS: WILBUR REStuart #: [id number] CARLOTTA: 01/06/24 00:[address]: Ronnie Hannon DEPT: SURGICAL PATHOLOGY RECD BY: Darrion Main ENTERED: 01/09/24 08:21 SP TYPE: MISC OTHR DR: DO Dr. Olga Forrester DO Dr. William Lago, MD Tissues: Biliary tract, NOS Procedures: Surgery Specimen Level IV Comments: @ Ordering doctor for SUIV edited from to @ by RGOOD at 01/09/24 1513 @ Submitting doctor edited from to @ by RGOOD at 01/09/24 1513 HEADER OPERATION: ERCP, Spyglass, balloon dilation, stent exchange PRE-OP DIAGNOSIS: Common bile duct dilation, hyperbilirubinemia, Elevated alk phos level TISSUE SUBMITTED: Biliary stricture (Spyglass) MICROSCOPIC DIAGNOSIS Biliary stricture, Spyglass biopsy: Chronic inflammation. Negative for malignancy. VASYL:shelby 01/10/2024 MICROSCOPIC DESCRIPTION Slides are reviewed. GROSS DESCRIPTION Received in fixative is one container labeled with the patient's name and designated biliary stricture. The specimen consists of multiple irregular fragments of light macias soft tissue that in aggregate measure 0.4 x 0.2 x 0.1 cm. The specimen is totally submitted in one cassette. / VASYL:shelby 01/09/2024 TC:3 CPT: 28922
[2024-01-06 05:52] LABS: Absolute Lymphocyte Count 0.92 X10^3/uL (0.83-4.51); Absolute Neutrophil Count 6.1 X10^3/uL (2.0-7.7); Basophil# 0.03 X10^3/uL; Basophil% 0.4 % (0-1); Eosinophil# 0.26 X10^3/uL; Eosinophils% 3.3 % (0-5); Hematocrit 40.7 % (40-54); Hemoglobin 13.5 g/dL (13.0-16.5); Lymphocyte # 0.92 X10^3/ul (0.83-4.51); Lymphocyte % 11.7 % (19-41); Mean Corp Hgb Conc 33.2 g/dL (32-36); Mean Corpuscular Hgb 28.1 pg (27.0-32.0); Mean Corpuscular Volume 84.6 fL (80-94); Mean Platelet Vol. 11.2 fl (6.2-12.0); Monocyte# 0.55 X10^3/uL; NRBC Flagged by Analyzer 0 % (0-5); Neutrophil # 6.08 X10^3/uL (2.7-7.7); Neutrophil % 77.3 % (47-70); Platelet Count 254 K/mm3 (150-450); RBC Distribution Width SD 50.1 fl (35.1-43.9); Red Blood Count 4.81 M/mm3 (4.6-6.2); White Blood Count 7.9 K/mm3 (4.4-11.0)
[2024-01-06] MEDS: Lactated Ringers 1,000 ML 75 ML IV (05:52)
[2024-01-06 06:22] LABS: ALB/GLOB Ratio 0.7 RATIO (0.9-2.4); AST(SGOT) 89 U/L (15-37); Alanine Aminotransfer ALT/SGPT 185 U/L (16-61); Albumin, Serum 2.6 g/dL (3.2-5.0); Alkaline Phosphatase 257 U/L (45-117); Anion Gap 4 (5-15); BUN 8 mg/dL (7-18); BUN/Creat Ratio 8.8 RATIO (10-20); Calcium,Total 8.6 mg/dL (8.5-10.1); Chloride 108 mmol/L (98-107); EST Glomerular Filtration Rate 88 mL/min (>60); Est Glom Filt Rate - Afr Amer 107 mL/min (>60); Estimated Creatinine Clearance 95.21 ml/min; Globulin 3.9 g/dL (2.2-4.2); Glucose 147 mg/dL (74-106); Magnesium 2.1 mg/dL (1.6-2.6); Phosphorus 2.7 mg/dL (2.5-4.9); Potassium 3.8 mmol/L (3.5-5.1); Protein, Total 6.5 g/dL (6.4-8.2); Sodium Level 138 mmol/L (136-145)
--- NOTE | 2024-01-06 09:35 | CASEMGMT ---
OFELIA WASHINGTON Assessment Face to Face with patient for initial transition planning/care coordination assessment. OFELIA WASHINGTON introduced self and role at [facility], pt voices understanding. Pt is A&Ox4 and is resting comfortably in bed and is calm. Pt at bedside. Care providers, pharmacy, and demographics verified. Admitting dx: Stent Replacement LACE Strata: 3 PCP: Shahrzad Specialists: Friend, Pulgeraldo [facility], Neuro [place] ([place]) Preferred Pharmacy: [facility] Insurance: [facility], [facility] [place] Prescription Benefit: Yes LNOK: Kary Woodson (W), Tj Woodson (Brother) Living Arrangements: Pt lives with his in a single story home with a BM with HR and 1 step to enter with no issues. ADLs/IADLs: Ind Transportation: Pt drives DME: [facility] with sufficient supplies. CPAP at night with no addional O2. Rollator and cane but does not use. Shower chair with seat. HHC/SNF: Pt states he has been to the [facility] in 2015 and denies other stays or needs currently. Pt?s goal: Home Plan: 6 Click is 24. Pt states he is active with [employer] and does not need an additional script. Pt states that he wants to DC home with his with no additional needs at this time. Jaswinder Hickey RN, CM
[2024-01-06] MEDS: levoFLOXacin IV 750 MG/150 ML BAG 100 MG IV (09:43)
[2024-01-06 11:47] LABS: Bedside Glucose 175 mg/dL (74-106)
[2024-01-06] MEDS: Lactated Ringers 1,000 ML 15 ML IV (13:11)
--- NOTE | 2024-01-06 15:25 | RAD_ITS ---
EXAM: ERCP CLINICAL INDICATION: Abdominal pain TECHNIQUE: Fluoroscopic cholangiogram performed with serial fluoroscopic images obtained. COMPARISON: CT abdomen pelvis 01/05/2024. FINDINGS: Contrast injected the endoscope into the proximal portion of the common bile duct. Pancreatic stent left in place. An endobiliary stent catheter was placed during the procedure. See operative note for additional information. RAD/ERCP Biliary Only IMPRESSION: As above. Electronically Signed: Ge Oliver MD at 16:59 EST ,
--- NOTE | 2024-01-06 16:16 | OP.ERCP_ITS ---
Patient Name: Max Woodson Procedure Date: 01/06/2024 2:45 PM Date of : 1955 Age: 68 Procedure: ERCP Indications: Common bile duct stone(s), Common bile duct stricture Providers: Ronnie Hannon DO Medicines: Monitored Anesthesia Care Patient Profile: This is a 68 year old male. Refer to note in patient chart for documentation of history and physical. Patient has symptoms of acute right upper quadrant abdominal pain and acute jaundice. Complications: No immediate complications. Procedure: Pre-Anesthesia Assessment: - Prior to the procedure, a History and Physical was performed, and patient medications and allergies were reviewed. The patient is competent. The risks and benefits of the procedure and the sedation options and risks were discussed with the patient. All questions were answered and informed consent was obtained. Patient identification and proposed procedure were verified by the physician in the pre-procedure area. Mental Status Examination: alert and oriented. Airway Examination: normal oropharyngeal airway and neck mobility. [Respiratory Exam]. [CV Exam]. The patient [Abx Prophylaxis Requirement] prophylactic antibiotics [High Risk History Reason] and [High Risk Procedure Reason]. [Anticoagulant Agents] [Days Prior to Procedure]. [ASA Grade]. After reviewing the risks and benefits, the patient was deemed in satisfactory condition to undergo the procedure. [Anesthesia Plan]. Immediately prior to administration of medications, the patient was re-assessed for adequacy to receive sedatives. The heart rate, respiratory rate, oxygen saturations, blood pressure, adequacy of pulmonary ventilation, and response to care were monitored throughout the procedure. The physical status of the patient was re-assessed after the procedure. After obtaining informed consent, the scope was passed under direct vision. Throughout the procedure, the patient's blood pressure, pulse, and oxygen saturations were monitored continuously. The Duodenoscope was introduced through the mouth, and advanced to the duodenum and used to inject contrast into the bile duct and ventral pancreatic duct. The Duodenoscope was introduced through the mouth, and advanced to the duodenum and used to inject contrast into the bile duct and ventral pancreatic duct. The ERCP was accomplished without difficulty. The patient tolerated the procedure well. Scope In: 3:16:11 PM Scope Out: 4:04:07 PM Total Procedure Duration Time 0 hours 47 minutes 56 seconds Findings: The chemical processing equipment repairer film was normal. The esophagus was successfully intubated under direct vision. The scope was advanced to a normal major papilla in the descending duodenum without detailed examination of the pharynx, larynx and associated structures, and upper GI tract. The upper GI tract was grossly normal. The bile duct was deeply cannulated with the short-nosed traction sphincterotome. Contrast was injected. I personally interpreted the bile duct and pancreatic duct images. There was brisk flow of contrast through the ducts. Image quality was excellent. Contrast extended to the entire biliary tree. The main bile duct was moderately dilated, secondary to a stricture. The largest diameter was 11mm. A straight Roadrunner wire was passed into the biliary tree. A 5 mm biliary sphincterotomy was made with a traction (standard) sphincterotome using ERBE electrocautery. There was no post-sphincterotomy bleeding. The biliary tree was swept with a 15 mm balloon starting at the bifurcation. Sludge was swept from the duct. All stones were removed. The biliary tree contained one temporary stent. This was found to be visibly occluded. The stent was removed using a snare. It was shown to be occluded via the water column test. A 10 Fr by 7 cm temporary stent was placed 5 cm into the biliary tree. Bile flowed through the stent. The stent was in good position. One 5 Fr by 7 cm temporary stent was placed into the ventral pancreatic duct. Clear fluid flowed through the stent. The stent was in good position. Dilation of the common bile duct with a 6-7-8 mm balloon dilator was successful. The bile duct was explored endoscopically using the SpZoutonslass direct visualization system. The SpyScope was advanced to the middle third of the main bile duct. Visibility with the scope was excellent. The lower third of the main bile duct contained a single moderate stenosis 3 mm in length. The lower third of the main bile duct was biopsied with a Edicy miniature biopsy forceps for histology. Impression: - A single moderate biliary stricture was found in the lower third of the main bile duct. The stricture was indeterminate. - The entire main bile duct was moderately dilated, secondary to a stricture. - Choledocholithiasis was found. Complete removal was accomplished by biliary sphincterotomy and balloon extraction. - A biliary sphincterotomy was performed. - The biliary tree was swept. - One stent was exchanged in the biliary tree. - One temporary stent was placed into the ventral pancreatic duct. - Common bile duct was successfully dilated. - Biopsy was performed in the lower third of the main duct. Procedure Code(s): --- Professional --- 30176, Endoscopic retrograde cholangiopancreatography (ERCP); with removal and exchange of stent(s), biliary or pancreatic duct, including pre- and post-dilation and guide wire passage, when performed, including sphincterotomy, when performed, each stent exchanged 95101, 59, Endoscopic retrograde cholangiopancreatography (ERCP); with placement of endoscopic stent into biliary or pancreatic duct, including pre- and post-dilation and guide wire passage, when performed, including sphincterotomy, when performed, each stent [id number], 51, Endoscopic retrograde cholangiopancreatography (ERCP); with removal of calculi/debris from biliary/pancreatic duct(s) 77542, 59, Endoscopic retrograde cholangiopancreatography (ERCP); with biopsy, single or multiple 99400, Endoscopic cannulation of papilla with direct visualization of pancreatic/common bile duct(s) (List separately in addition to code(s) for primary procedure) 13369, 26, Combined endoscopic catheterization of the biliary and pancreatic ductal systems, radiological supervision and interpretation CPT copyright 2021 [employer]. All rights reserved. The codes documented in this report are preliminary and upon transformer assembly supervisor review may be revised to meet current compliance requirements. Ronnie Hannon DO 01/06/2024 4:16:17 PM This report has been signed electronically. Number of Addenda: 0 Note Initiated On: 01/06/2024 2:45 PM
[2024-01-06 17:05] LABS: Bedside Glucose 153 mg/dL (74-106)
[2024-01-06 17:30] LABS: Bedside Glucose 145 mg/dL (74-106)
--- NOTE | 2024-01-06 18:13 | PCM.PN.HOSP ---
Reason for Visit Reason for Visit: Diagnoses Other disorders of bilirubin metabolism (01/05/24) Other specified diseases of biliary tract (01/05/24) Unspecified abdominal pain (01/05/24) Nausea with vomiting, unspecified (01/05/24) Unspecified jaundice (01/05/24) Weakness (01/05/24) Elevation of levels of liver transaminase levels (01/05/24) Abnormal levels of other serum enzymes (01/05/24) Subjective Subjective Patient was seen and examined today, he underwent an ERCP today, a stricture was found and choledocholithiasis was found, stones were removed and the patient underwent sphincterotomy and exchange of 1 stent in the biliary tree, common bile duct was successfully dilated. Patient's is in the room at the time my examination. Objective Data Objective Data Vital Signs: Vital Signs Temp Pulse Resp BP Pulse Ox O2 Del Method O2 Flow Rate 97.8 F 74 18 132/54 H 95 Nasal Cannula 2 01/06/24 17:03 01/06/24 17:03 01/06/24 17:03 01/06/24 17:03 01/06/24 17:03 01/06/24 17:03 01/06/24 17:03 Oxygen Flow Rate (L/min) 2 Oxygen Delivery Method Nasal Cannula Weight: 97.4 kg Body Mass Index (BMI) 28.4 Intake & Output: Intake and Output for Last 24 Hours 01/04/24 01/05/24 01/06/24 23:59 23:59 23:59 Intake Total 1153.75 / 1153.75 1226.50 / 1226.50 Output Total 400 / 400 400 / 400 Balance 753.75 / 753.75 826.50 / 826.50 Lab / Micro Data 01/06/24 05:37 01/06/24 05:37 Labs: Laboratory Results - last 24 hr 01/05/24 23:14: POC Glucose 169 H 01/06/24 05:37: WBC 7.9, RBC 4.81, Hgb 13.5, Hct 40.7, MCV 84.6, MCH 28.1, MCHC 33.2, RDW Std Deviation 50.1 H, RDW Coeff of Shoshana 16.0 H, Plt Count 254, MPV 11.2, Immature Gran % (Auto) 0.300, Neut % (Auto) 77.3 H, Lymph % (Auto) 11.7 L, Door % (Auto) 7.0, Eos % (Auto) 3.3, Baso % (Auto) 0.4, Absolute Neuts (auto) 6.1, Absolute Lymphs (auto) 0.92, Nucleated RBC % 0, Sodium 138, Potassium 3.8, Chloride 108 H, Carbon Dioxide 26.0, Anion Gap 4 L, BUN 8, Creatinine 0.90, Estim Creat Clear Calc 95.21, Est GFR (MDRD) Af Amer 107, Est GFR (MDRD) Non-Af 88, BUN/Creatinine Ratio 8.8 L, Glucose 147 H, Calcium 8.6, Phosphorus 2.7, Magnesium 2.1, Total Bilirubin 1.20 H, AST 89 H, ALT 185 H, Alkaline Phosphatase 257 H, Total Protein 6.5, Albumin 2.6 L, Globulin 3.9, Albumin/Globulin Ratio 0.7 L 01/06/24 11:29: POC Glucose 175 H 01/06/24 16:47: POC Glucose 153 H 01/06/24 17:10: POC Glucose 145 H Radiography Diagnostic Testing: Radiology Impression MRCP 01/05/24 16:03 IMPRESSION: 1. No change in the small cyst measuring up to 1.3 cm in the head of the pancreas. Recommend a contrast-enhanced, pancreas-protocol abdominal CT or MR in 2 years. 2. No intra or extrahepatic biliary dilatation or pancreatic duct dilatation. The known stents are difficult to visualize on MR. Electronically Signed: Walter Watson MD at 0:25 EST , ERCP X-Ray 01/06/24 15:25 IMPRESSION: As above. Electronically Signed: Ge Oliver MD at 16:59 EST , Physical Exam Const alert, oriented x3, no apparent distress and average body habitus General Appearance: cooperative, well kempt and well developed Orientation / Consciousness: awake, oriented to person, oriented to place and oriented to time HEENT normocephalic, head/scalp atraumatic and moist oral mucous membranes Eyes PERRL, EOMs intact bilaterally and conjunctivae normal Neck supple, no JVD, thyroid normal and no carotid bruits General: trachea midline Resp normal respiratory effort, no retractions, no use of accessory muscles and clear to auscultation bilaterally Auscultation: Negative for rales, rhonchi or wheezes Cardio regular rate, regular rhythm, S1 normal heart sound, S2 normal heart sound, no murmurs, no rub and no gallops GI normal to inspection, nondistended, normoactive bowel sounds, soft to palpation, non-tender and non-distended Extremity no clubbing, cyanosis or edema Skin no rashes or lesions noted General Skin Exam: no breakdown Neuro oriented x3, CN's II-XII intact bilaterally, moves all extremities, no focal motor deficits and no sensory deficits noted Sensorium / Orientation: awake and alert Speech: speech normal Psych affect normal Assessment & Plan Assessment/Plan (1) Jaundice: PLAN: Plan 1. 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 Total clinical time spent by myself addressing the patient's medical issues, reviewing all of his data, and collaborating with patient's care team: 25 minutes Charges/Coding Visit Charges Inpatient E&M: 46586 [facility] L1
--- NOTE | 2024-01-06 19:45 | NURSING ---
walking Pass pt room. heard yelling. Pt sitting at the bottom of his chair. Pt said he slid out. Denies any complaints. Neuro assessment intact. Pt asst back to bed. Real md notified. Bed exit put on.
[2024-01-06] MEDS: Tamsulosin HCl 0.4 MG Capsule 0.400000000000000022 MG PO (20:15)
[2024-01-06] MEDS: Insulin Glargine-YFGN 100 UNIT/ML Pen 30 UNIT SC (20:16)
[2024-01-06] MEDS: Atorvastatin Calcium 80 MG Tablet PO (20:17)
[2024-01-07 02:30] VITALS: BP 156/79; PULSE 68; RESP 18; TEMP 36.7; O2SAT 92
[2024-01-07] MEDS: Lactated Ringers 1,000 ML 75 ML IV (02:33)
[2024-01-07 02:42] LABS: Bedside Glucose 330 mg/dL (74-106)
[2024-01-07 04:27] VITALS: BMI 27.9
[2024-01-07 05:24] VITALS: BP 133/70; PULSE 64; RESP 20; TEMP 36.4; O2SAT 92
[2024-01-07 07:07] VITALS: O2SAT 92
[2024-01-07 07:16] LABS: AST(SGOT) 71 U/L (15-37); Alanine Aminotransfer ALT/SGPT 154 U/L (16-61); Albumin, Serum 2.6 g/dL (3.2-5.0); Alkaline Phosphatase 260 U/L (45-117); Bilirubin, Direct 0.58 mg/dL (0.00-0.30); Globulin 4.1 g/dL (2.2-4.2); Protein, Total 6.7 g/dL (6.4-8.2)
[2024-01-07 08:56] VITALS: BP 132/61; PULSE 61; RESP 18; TEMP 36.6; O2SAT 92
[2024-01-07] MEDS: Finasteride 5 MG Tablet PO (09:04)
[2024-01-07] MEDS: Venlafaxine XR 150 MG Capsule PO (09:04)
[2024-01-07] MEDS: Tamsulosin HCl 0.4 MG Capsule 0.400000000000000022 MG PO ×2 (09:05→09:06)
[2024-01-07] MEDS: Enoxaparin 40 MG/0.4 ML Syringe SC (09:08)
[2024-01-07 09:54] LABS: Bedside Glucose 235 mg/dL (74-106)
[2024-01-07] MEDS: Insulin Lispro 100 UNIT/ML INSULN.PEN 22 UNIT SC (10:15)
[2024-01-07] MEDS: levoFLOXacin IV 750 MG/150 ML BAG 100 MG IV (10:16)
--- NOTE | 2024-01-07 10:37 | DCINST_ITS ---
Discharge Instructions Diet Discharge Diet: 1800 Calorie Control Diet Activity Discharge Activity: Return to Normal Activity Weight Bearing Status: Full weight bearing Follow Up Care Test Results: Test results from this visit will be discussed in further detail at your follow- up appointment, if applicable. Discharge Plan Admission Admit Date/Time: 01/05/24 15:29 Primary Reason for Your Visit: Choledocholithiasis, stenotic bile duct Attending Provider: Max Marinelli Primary Care Provider: Tommy Markham Consulting Providers: Elizabeth Montalvo Instructions Additional Instructions / Restrictions: You may discontinue your oxybutynin if you continue to have urinary hesitancy or are unable to urinate Discharge Orders/Prescriptions Prescriptions: New tamsulosin 0.4 mg Capsule 0.8 mg PO DAILY Qty: 60 2RF ondansetron HCl 8 mg tablet 8 mg PO Q8H PRN (Reason: nausea and vomiting) Qty: 20 0RF Continued insulin lispro [Humalog KwikPen Insulin] 100 UNIT/ML insulin pen 22 unit subcut TID insulin glargine [Lantus Solostar U-100 Insulin] 100 UNITS/ML insulin pen 50 units subcut QHS Trelegy Ellipta 100-62.5-25 mcg blister with device 1 inh INHALATION DAILY venlafaxine 150 mg capsule,extended release 24hr 150 mg PO DAILY atorvastatin 80 mg Tablet 80 mg PO QHS Qty: 30 2RF aspirin 81 MG tablet,chewable 81 mg PO DAILY finasteride 5 mg tablet 5 mg PO DAILY Patient Comments: TAKE 1 TABLET BY MOUTH EVERY DAY oxybutynin chloride 10 mg tablet extended release 24hr 10 mg PO DAILY Patient Comments: TAKE 1 TABLET BY MOUTH DAILY Discontinued tamsulosin 0.4 mg capsule 0.4 mg PO BID Referrals / Follow Up: Ronnie Hannon DO [Med Staff - Active Staff] - See Referral Note (In 3 to 4 weeks) Tommy Markham MD [Primary Care Provider] - Disposition Disposition (needs filled in before D/C Order can be placed): Home, Self Care
--- NOTE | 2024-01-07 10:43 | DS.PCM_ITS ---
Providers Date of Admission: 01/05/24 Date of Discharge: 01/07/24 Primary Care Physician: Dr. Tommy Markham MD Consultations 01/05/24 16:03 Consult: Gastroenterology Routine Consulting Provider: Dan[facility] Reason for Consult: friend EMERGENT Consult: No MD Notified: Yes Date Notified: 01/05/24 Time Notified: 15:32 Method of Notification: Verbal Reason For Visit: CHOLEDOCHOLITHIASIS, JAUNDICE, WEIGHT LOSS Diagnosis Discharge Diagnosis (1) Jaundice: Status: Acute Code(s): R17 - Unspecified jaundice Plan 1. 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 Total clinical time spent by myself addressing the patient's medical issues, reviewing all of his data, and collaborating with patient's care team: [facility]ations at Discharge Home Medications insulin glargine 100 unit/mL (3 mL) subcutaneous pen (Lantus Solostar U-100 Insulin) 50 units subcut QHS DABETES 02/27/15 insulin lispro 100 unit/mL subcutaneous pen (Humalog KwikPen (U-100) Insulin) 22 unit subcut TID DIABETES 02/27/15 fluticasone fur. 100 mcg-umeclid 62.5 mcg-vilant 25 mcg inhalat.powder (Trelegy Ellipta) 1 inh inhalation DAILY SHORTNESS OF BREATH/WHEEZING 09/05/23 venlafaxine 150 mg capsule,extended release 24 hr 150 mg PO DAILY DEPRESSION 09/05/23 atorvastatin 80 mg tablet 80 mg PO QHS CHOLESTEROL #30 tabs 09/07/23 aspirin 81 mg chewable tablet 81 mg PO DAILY HEART HEALTH 11/02/23 finasteride 5 mg tablet 5 mg PO DAILY 01/05/24 oxybutynin chloride 10 mg tablet,extended release 24 hr 10 mg PO DAILY 01/05/24 ondansetron HCl 8 mg tablet 8 mg PO Q8H PRN nausea and vomiting #20 tabs 01/07/24 tamsulosin 0.4 mg capsule 0.8 mg (2 x 0.4 mg) PO DAILY #60 caps 01/07/24 Hospital Course Operations ERCP Summary of Care Provided Minutes Spent on Discharge: 31 Hospital Course: This 68-year-old white male was seen in the emergency room at [facility] with complaints of nausea and vomiting and upper abdominal pain, labs obtained showed elevated liver enzymes, he was seen in consultation by gastroenterology who performed an ERCP, choledocholithiasis was found as well as a stenotic area in the common bile duct. His previous common bile duct stent was replaced, biopsies were taken, patient tolerated the procedure well and there were no complications. On 01/07/2024, patient was seen and examined: On examination he appeared in good health and spirits. Vital signs as documented. Skin warm and dry and without overt rashes. Neck without JVD, neck was supple, trachea midline, thyroid was normal. Lungs clear bilaterally, normal air movement was noted. Heart exam notable for regular rhythm, normal sounds and absence of murmurs, rubs or gallops. Abdomen unremarkable and without evidence of organomegaly, masses, or abdominal aortic enlargement. Bowel sounds are present, abdomen is not distended. Extremities nonedematous, no cyanosis was noted, no clubbing was noted. Neuro: Cranial nerves II through XII are grossly intact, no focal motor deficits were noted, sensation to light touch and pinp sandee intact, motor exam 5/5 throughout. Psych: Patient is alert and oriented x3, he does not appear anxious or depressed, he does not appear agitated. Patient appears stable for discharge home on 01/07/2024. Weight / BMI Weight Weight: 95.7 kg Body Mass Index (BMI) 27.9 ABG / Lab / Microbiology Data 01/06/24 05:37 01/06/24 05:37 Laboratory: Laboratory Results - last 24 hr 01/06/24 11:29: POC Glucose 175 H 01/06/24 16:47: POC Glucose 153 H 01/06/24 17:10: POC Glucose 145 H 01/06/24 20:00: POC Glucose 330 H 01/07/24 05:21: Total Bilirubin 1.00, Direct Bilirubin 0.58 H, AST 71 H, ALT 154 H, Alkaline Phosphatase 260 H, Total Protein 6.7, Albumin 2.6 L, Globulin 4.1 01/07/24 08:52: POC Glucose 235 H Radiography Diagnostic Testing: Radiology Impression ERCP X-Ray 01/06/24 15:25 IMPRESSION: As above. Electronically Signed: Ge Oliver MD at 16:59 EST , D/C Instructions Discharge Diet: 1800 Calorie Control Diet Weight Bearing Status: Full weight bearing Meaningful Use Info Meaningful Use Diagnoses (Choose all that apply): None applicable Discharge Plan Admission Admit Date/Time: 01/05/24 15:29 Primary Reason for Your Visit: Choledocholithiasis, stenotic bile duct Attending Provider: Max Marinelli Primary Care Provider: Tommy Markham Consulting Providers: Elizabeth Montalvo Instructions Additional Instructions / Restrictions: You may discontinue your oxybutynin if you continue to have urinary hesitancy or are unable to urinate Discharge Orders/Prescriptions Prescriptions: New tamsulosin 0.4 mg Capsule 0.8 mg PO DAILY Qty: 60 2RF ondansetron HCl 8 mg tablet 8 mg PO Q8H PRN (Reason: nausea and vomiting) Qty: 20 0RF Continued insulin lispro [Humalog KwikPen Insulin] 100 UNIT/ML insulin pen 22 unit subcut TID insulin glargine [Lantus Solostar U-100 Insulin] 100 UNITS/ML insulin pen 50 units subcut QHS Trelegy Ellipta 100-62.5-25 mcg blister with device 1 inh INHALATION DAILY venlafaxine 150 mg capsule,extended release 24hr 150 mg PO DAILY atorvastatin 80 mg Tablet 80 mg PO QHS Qty: 30 2RF aspirin 81 MG tablet,chewable 81 mg PO DAILY finasteride 5 mg tablet 5 mg PO DAILY Patient Comments: TAKE 1 TABLET BY MOUTH EVERY DAY oxybutynin chloride 10 mg tablet extended release 24hr 10 mg PO DAILY Patient Comments: TAKE 1 TABLET BY MOUTH DAILY Discontinued tamsulosin 0.4 mg capsule 0.4 mg PO BID Referrals / Follow Up: Ronnie Hannon DO [Med Staff - Active Staff] - See Referral Note (In 3 to 4 weeks) Tommy Markham MD [Primary Care Provider] - Disposition Disposition (needs filled in before D/C Order can be placed): Home, Self Care Charges/Coding Visit Charges Inpatient E&M: 06507 Disch Hosp >30min
== END 2024-01-07 13:00 | disposition home or self-care (01) | DRG 445 ==
LOC: ED 14:45 → MS3 14:57
PROVIDERS: Internal Medicine Gastroenterology; Admitting Provider Internal Medicine; Emergency Provider Emergency Medicine; PCP Family Medicine; Visit Provider Internal Medicine
PROC: 0FC98ZZ Extirpation of Matter from Common Bile Duct, Via Natural or Artificial Opening Endoscopic (ICD-10-PCS; CPT 43260; principal; 2024-01-06 13:55)
DX: K80.51 Calculus of bile duct without cholangitis or cholecystitis with obstruction (principal); T85.590A Other mechanical complication of bile duct prosthesis, initial encounter; N13.8 Other obstructive and reflux uropathy; K31.84 Gastroparesis; E11.43 Type 2 diabetes mellitus with diabetic autonomic (poly)neuropathy; J44.9 Chronic obstructive pulmonary disease, unspecified; E11.65 Type 2 diabetes mellitus with hyperglycemia; Z79.4 Long term (current) use of insulin; E78.5 Hyperlipidemia, unspecified; K21.9 Gastro-esophageal reflux disease without esophagitis; E86.0 Dehydration; G47.33 Obstructive sleep apnea (adult) (pediatric); Y73.2 Prosthetic and other implants, materials and accessory gastroenterology and urology devices associated with adverse incidents; N40.1 Benign prostatic hyperplasia with lower urinary tract symptoms; Z79.899 Other long term (current) drug therapy; Z79.82 Long term (current) use of aspirin; Z79.51 Long term (current) use of inhaled steroids; Z87.891 Personal history of nicotine dependence; Z86.73 Personal history of transient ischemic attack (TIA), and cerebral infarction without residual deficits
CPT/HCPCS: 36415; 71045; 74177; 74181; 74328; 76000; 80048; 80053; 80076; 81001; 82962; 83690; 83735; 84100; 85025; 87086; 87631; 88108; 88305; 88313; 93005; 94640; 94668; 96361; 96374; 97110; 97802; 99252; 99283; 99285; J7030; J7120; Q9967; A4216; G0463; J0330; J2405

== ENCOUNTER 2024-01-25 11:44 | Observation (INO) | payer MEDICARE, OTHER, SELFPAY ==
[2024-01-25] VITALS (13 sets, daily range): BP systolic 125–150; BP diastolic 65–95; PULSE 69–100; RESP 15–21; TEMP 36.1–36.9; O2SAT 93–100; BMI 28.8; BMI 27.6
--- NOTE | 2024-01-25 11:50 | ED.RN ---
rn informed dr arriaga of 's complaint and that patient had a negative cinci and a&o x4 in triage.
--- NOTE | 2024-01-25 11:57 | EKG12_ITS ---
Test Reason : NEURO Blood Pressure : / mmHG Vent. Rate : 076 BPM Atrial Rate : 076 BPM P-R Int : 166 ms QRS Dur : 070 ms QT Int : 390 ms P-R-T Axes : 073 -35 079 degrees QTc Int : 438 ms Sinus rhythm with Premature atrial complexes Left axis deviation Low voltage QRS Abnormal ECG Confirmed by Walter Zamorano ([id number]), associate entertainment editor DIGNA CANALES ([id number]) on 01/26/2024 2:45:01 PM Referred By: Confirmed By:Walter Zamorano
--- NOTE | 2024-01-25 11:57 | NURSING ---
STROKE ALERT CALLED
--- NOTE | 2024-01-25 11:58 | CT_ITS ---
INDICATION: Neuro deficit, acute, stroke suspected EXAMINATION: CT BRAIN WITHOUT CONTRAST, CTA HEAD, AND CTA NECK TECHNIQUE: Noncontrast axial images were obtained of the brain. Subsequently, routine carotid CT angiogram protocol was performed without and with IV contrast. In addition, images were obtained of the [place] of [place]. NASCET criteria using the distal ICAs for comparison were used for evaluation of stenoses. 3D reconstructions were reviewed. A radiation dose optimization technique was used for this scan. IV Contrast dosage and agent: COMPARISON: September 06, 2023 and September 26, 2023 FINDINGS: --CT BRAIN WITHOUT CONTRAST: BRAIN PARENCHYMA: No intra- or extra-axial hemorrhage. No evidence of acute infarct. No intracranial mass or mass effect. There is preservation of the falcon/white matter interface. Posterior fossa structures are unremarkable. CSF SPACES: Appropriate for age. No hydrocephalus. Basal cisterns are patent. CALVARIUM, SKULL BASE, PARANASAL SINUSES AND MASTOID AIR CELLS: Clear. No discrete lytic or blastic abnormalities. ASPECTS Score for Acute Strokes: 10 --CTA NECK: AORTIC ARCH AND BRANCHES: There are vascular calcifications. RIGHT CCA: No occlusion, significant stenosis or dissection. There are peripheral calcifications of the carotid bulb. RIGHT ICA: No occlusion, significant stenosis or dissection. LEFT CCA: No occlusion, significant stenosis or dissection. LEFT ICA: There are peripheral calcifications. RIGHT VERTEBRAL ARTERY: No occlusion, significant stenosis or dissection. LEFT VERTEBRAL ARTERY: No occlusion, significant stenosis or dissection. NECK SOFT TISSUES: Unremarkable. --CTA HEAD: --Anterior circulation: ICAs: No significant stenosis at the intracranial/visualized segments. ACAs: No significant stenosis at the visualized segments. ACOM: Present. MCAs: No significant stenosis at the visualized segments. --Posterior circulation: PCOMs: green prize packer: No significant stenosis at the visualized segments. BASILAR ARTERY: No significant stenosis. VERTEBRAL ARTERIES: No significant stenosis at the intradural/visualized segments. No evidence of intracranial aneurysm or vascular malformation. CT/STROKE CTA Head AND Neck W/Con IMPRESSION: Atherosclerosis with no hemodynamically significant stenosis. N.B. : The above Results were Read Back by Patti Nguyen MD to DO Len, and understanding confirmed on 01/25/2024 12:48:10 (ET). Electronically Signed: Patti Nguyen MD at 12:49 EST ,
--- NOTE | 2024-01-25 12:00 | CT_ITS ---
INDICATION: Neuro deficit, acute, stroke suspected EXAMINATION: CT BRAIN - CT Head Stroke Protocol W/O Contrast Injection TECHNIQUE: Multiple axial images were obtained of the head without intravenous contrast. A radiation dose optimization technique was used for this scan. IV Contrast dosage and agent: None. RADIATION DOSAGE (If Supplied By Facility): CTDIvol = ( ) mGy, DLP = ( ) mGycm COMPARISON: November 02, 2023 FINDINGS: BRAIN PARENCHYMA: No intra- or extra-axial hemorrhage. There are patchy low-attenuation foci within the white matter of the cerebral hemispheres, a nonspecific finding most commonly reflecting small vessel ischemia. There are stable low-attenuation foci within the basal ganglia and left thalamus consistent with old infarcts. No evidence of acute infarct. No intracranial mass or mass effect. There is preservation of the falcon/white matter interface. Posterior fossa structures are unremarkable. CSF SPACES: Appropriate for age. No hydrocephalus. Basal cisterns are patent. CALVARIUM, SKULL BASE, PARANASAL SINUSES AND MASTOID AIR CELLS: Clear. No discrete lytic or blastic abnormalities. ORBITS: Both globes, extraocular muscles, optic nerves and retrobulbar fat appear unremarkable. ASPECTS Score for Acute Strokes: 10 CT/STROKE Brain/Head without Cont IMPRESSION: Stable examination demonstrating small vessel ischemia and bilateral basal ganglia and left thalamic lacunar infarcts. N.B. : The above Results were Read Back by Patti Nguyen MD to Werner Harrnigton DO, and understanding confirmed on 01/25/2024 12:13:08 (ET). Electronically Signed: Patti Nguyen MD at 12:14 EST ,
--- NOTE | 2024-01-25 12:08 | ED.VIS.STROK ---
HPI History of Present Illness Chief Complaint: Stroke Alert Narrative Narrative: 68-year-old male presenting with strokelike symptoms. Apparently today his last known well was sometime between 1030 and 1045. states he was at the gym with her and started acting normally. He will at home with a friend who obtained a patient of hers and apparently there was reported staring and confusion. Patient arrived home test fast 11 states he is very confused. Radial pulse he is having trouble expressing himself. He has been able to move all 4 extremities. however patient also reportedly recently had a stroke workup and was at [facility]. He was in [place] this last week and on the his states he had about a 40-minute episode where he could not move his left arm and was very confused. states that he was very confused and had to go to the restroom. Eventually she had to go find him he had a staring at times hypercellular urinal. She states he was staring at the chrome . She states he was better by the next day and then came home from [place]. The supposed to follow-up on Tuesday of this week for stroke follow-up and today has had the symptoms. There is some speculation that the patient's symptoms could have started about 10 AM however the is not a very good informant about the time frames and she states that the [employer] grocery worker could have noticed something left confusion at about 10 AM. Of note the patient's appears to be very confused and her phone is going off and she is unable to turn this off and trying to have a conversation over her phone which is turned all the way up and reporting the news. [facility] Medical History Abdominal discomfort Choledocholithiasis Common bile duct dilation COPD (chronic obstructive pulmonary disease) CPAP (continuous positive airway pressure) dependence Diabetes Elevated liver transaminase level Gastroparesis GERD (gastroesophageal reflux disease) History of diabetes mellitus History of multiple cerebrovascular accidents (CVAs) History of stroke Jaundice Non-smoker Sleep apnea Slurred speech Stroke-like symptoms Stroke/cerebrovascular accident Unintentional weight loss of 1-2% body weight within 1 week Home Medications insulin glargine 100 unit/mL (3 mL) subcutaneous pen (Lantus Solostar U-100 Insulin) 50 units subcut QHS DABETES 02/27/15 [History Last Taken 01/24/24] insulin lispro 100 unit/mL subcutaneous pen (Humalog KwikPen (U-100) Insulin) 22 unit subcut TID DIABETES 02/27/15 [History Last Taken 01/25/24] fluticasone fur. 100 mcg-umeclid 62.5 mcg-vilant 25 mcg inhalat.powder (Trelegy Ellipta) 1 inh inhalation DAILY SHORTNESS OF BREATH/WHEEZING 09/05/23 [History Last Taken 01/05/24] venlafaxine 150 mg capsule,extended release 24 hr 150 mg PO DAILY DEPRESSION 09/05/23 [History Last Taken 01/25/24] atorvastatin 80 mg tablet 80 mg PO QHS CHOLESTEROL #30 tabs 09/07/23 [Rx Last Taken 01/24/24] aspirin 81 mg chewable tablet 81 mg PO DAILY HEART HEALTH 11/02/23 [History Last Taken 01/24/24] finasteride 5 mg tablet 5 mg PO DAILY 01/05/24 [History Last Taken 01/25/24] ondansetron HCl 8 mg tablet 8 mg PO Q8H PRN nausea and vomiting #20 tabs 01/07/24 [Rx Last Taken 01/11/24] lactulose 10 gram/15 mL (15 mL) oral solution 10 g PO DAILY PRN constipation 01/25/24 [History Last Taken 01/11/24] tamsulosin 0.4 mg capsule 0.4 mg PO BID 01/25/24 [History Last Taken 01/25/24] Allergy/AdvReac Type Severity Reaction Status Date / Time Penicillins Allergy Intermediate Hives Verified 01/25/24 11:46 Family History Other Alzheimer disease Breast cancer Thyroid cancer Surgical History History of ear surgery Social History household members: spouse housing: house Smoking Status: Current every day smoker tobacco type: cigarettes Tobacco: How many years used: 50 how long ago did patient quit smoking: alcohol intake: never substance use type: does not use ROS ROS ED Review of Systems ROS Unobtainable: due to mental condition and due to mental status EXAM Physical Exam Const Vital Signs: 01/25/24 11:45 01/25/24 11:57 01/25/24 11:57 Temperature 97.0 F L 97.7 F L Temperature Source Temporal Temporal Pulse Rate 100 95 Respiratory Rate 16 16 Blood Pressure 134/91 H 145/73 H Blood Pressure Mean 105 97 Pulse Ox 100 98 Oxygen Delivery Method Room Air Room Air Room Air 01/25/24 11:57 01/25/24 11:57 01/25/24 12:25 Temperature Temperature Source Pulse Rate 79 79 78 Respiratory Rate 16 16 18 Blood Pressure 128/92 H 128/92 H 137/67 H Blood Pressure Mean 104 104 90 Pulse Ox 97 97 94 Oxygen Delivery Method Room Air Room Air Room Air 01/25/24 12:30 01/25/24 12:44 01/25/24 12:44 Temperature Temperature Source Pulse Rate 78 79 79 Respiratory Rate 16 20 H 20 H Blood Pressure 137/67 H 139/65 H 139/65 H Blood Pressure Mean 90 89 89 Pulse Ox 96 94 94 Oxygen Delivery Method Room Air Room Air Room Air Positive well nourished and well developed General Appearance ED: well developed HEENT Reports moist mucous membranes and dry mucous membranes Mouth ED: Yes dry mucous membranes Mouth: dry mucous membranes Eyes PERRL and EOMs intact bilaterally Neck no lymphadenopathy Chest Wall inspection of chest normal Resp normal respiratory effort Auscultation: Negative for rales, rhonchi or wheezes Cardio Rate: regular rate Rhythm: regular rhythm GI normal to inspection, nondistended, normoactive bowel sounds Neuro CN's II-XII intact bilaterally and no sensory deficits noted Sensorium / Orientation: alert, oriented to person, oriented to place and confused Psych mental status grossly normal NIHSS NIHSS Initial: 1a Level of Consciousness: 0 1b LOC Questions (Score 2 if aphasic/stupor): 0 1c LOC Commands (Only score 1st attempt): 0 2 Best Gaze (If aphasic, use reflexive mvmts.): 0 3 Visual: 0 4 Facial Palsy: 0 5 Motor Arm Right (UN = amputation/fusion): 0 5 Motor Arm Left: 0 6 Motor Leg Right: 0 6 Motor Leg Left: 0 7 Limb ataxia (Only + if out of proportion): 0 8 Sensory (Aphasia/stupor=0 or 1, coma=2): 0 9 Best Language: 0 10 Dysarthria (mute, coma=2, intubated=UN): 0 11 Extinction and Inattention (only scored if +): 0 Total Score: 0 MDM MDM MDM Narrative Medical decision making narrative: Patient presenting with strokelike symptoms. Initially it was believed he had an expressive aphasia based on his examination because he could not give history although after stroke team was called and the patient was taken to CT he did come back and was able to follow some instructions and was able to name objects without any difficulty. He appears to have short-term memory and cannot recall events of this morning. Lactic acidosis, he does not like he has vascular disease. CT and CT brain were interpreted as negative. Neurology been then and thought this was more of a vascular dementia picture. He did not think he needed tenecteplase. Patient will be admitted for stroke workup. CBC, BMP, troponin within normal limits. EKG on my interpretation shows a normal sinus rhythm with a ventricular rate of 76 bpm without sign of ischemic change. Chest x-ray on my interpretation shows no acute process. The radiologist interprets this and agreed. High-sensitivity troponin is 8. Patient given aspirin 325 mg. He admitted to the hospitalist for further evaluation. Impression: 1. Altered mental status 2. TIA Lab Data Labs: Laboratory Results - last 24 hr 01/25/24 01/25/24 11:59 12:14 WBC 8.0 RBC 5.82 Hgb 15.7 Hct 48.7 MCV 83.7 MCH 27.0 MCHC 32.2 RDW Std Deviation 47.1 H RDW Coeff of [place] 15.6 H Plt Count 261 MPV 11.7 Immature Gran % (Auto) 0.200 Neut % (Auto) 65.9 Lymph % (Auto) 20.0 [place] % (Auto) 8.2 Eos % (Auto) 4.6 Baso % (Auto) 1.1 H Absolute Neuts (auto) 5.3 Absolute Lymphs (auto) 1.60 Nucleated RBC % 0 PT 13.7 INR 1.1 APTT 28.5 Sodium 139 Potassium 3.8 Chloride 105 Carbon Dioxide 28.0 Anion Gap 6 BUN 14 Creatinine 1.15 Estim Creat Clear Calc 75.18 Est GFR (MDRD) Af Amer 81 Est GFR (MDRD) Non-Af 67 BUN/Creatinine Ratio 12.2 Glucose 78 Calcium 9.2 Troponin I High Sens 8 POC Glucose 75 Radiography Diagnostic Testing: Clinical Impression(s) from Imaging Studies Head/Neck CTA 01/25/24 11:58 IMPRESSION: Atherosclerosis with no hemodynamically significant stenosis. N.B. : The above Results were Read Back by Patti Nguyen MD to DO Len, and understanding confirmed on 01/25/2024 12:48:10 (ET). Electronically Signed: Patti Nguyen MD at 12:49 EST , Brain CT 01/25/24 12:00 IMPRESSION: Stable examination demonstrating small vessel ischemia and bilateral basal ganglia and left thalamic lacunar infarcts. N.B. : The above Results were Read Back by Patti Nguyen MD to Werner Harrington DO, and understanding confirmed on 01/25/2024 12:13:08 (ET). Electronically Signed: Patti Nguyen MD at 12:14 EST , ADDENDUM: 01/25/24 1221 IMPRESSION: Stable examination demonstrating small vessel ischemia and bilateral basal ganglia and left thalamic lacunar infarcts. N.B. : The above Results were Read Back by Patti Nguyen MD to Werner Harrington DO, and understanding confirmed on 01/25/2024 12:13:08 (ET). Electronically Signed: Patti Nguyen MD at 12:14 EST , Chest X-Ray 01/25/24 13:05 IMPRESSION: No radiographic evidence of acute cardiopulmonary disease. Electronically Signed: Patti Nguyen MD at 13:17 EST , Discharge Plan Disposition Disposition: Acute Care Hospital [facility] Discharge Date/Time: 01/25/24 14:37
[2024-01-25 12:17] LABS: Bedside Glucose 75 mg/dL (74-106)
[2024-01-25 12:23] LABS: Absolute Neutrophil Count 5.3 X10^3/uL (2.0-7.7); Basophil# 0.09 X10^3/uL; Basophil% 1.1 % (0-1); Eosinophil# 0.37 X10^3/uL; Eosinophils% 4.6 % (0-5); Hematocrit 48.7 % (40-54); Hemoglobin 15.7 g/dL (13.0-16.5); Mean Corp Hgb Conc 32.2 g/dL (32-36); Mean Corpuscular Volume 83.7 fL (80-94); Mean Platelet Vol. 11.7 fl (6.2-12.0); Monocyte# 0.66 X10^3/uL; Monocyte% 8.2 % (0-10); NRBC Flagged by Analyzer 0 % (0-5); Neutrophil # 5.27 X10^3/uL (2.7-7.7); Neutrophil % 65.9 % (47-70); Platelet Count 261 K/mm3 (150-450); RBC Distribution Width CV 15.6 % (11.6-14.6); RBC Distribution Width SD 47.1 fl (35.1-43.9); Red Blood Count 5.82 M/mm3 (4.6-6.2)
[2024-01-25 12:45] LABS: International Normalized Ratio 1.1; Prothrombin Time (Protime)PT. 13.7 SECONDS (11.7-14.9)
[2024-01-25 12:50] LABS: Anion Gap 6 (5-15); BUN 14 mg/dL (7-18); BUN/Creat Ratio 12.2 RATIO (10-20); Calcium,Total 9.2 mg/dL (8.5-10.1); Chloride 105 mmol/L (98-107); Creatinine, Serum 1.15 mg/dL (0.70-1.30); EST Glomerular Filtration Rate 67 mL/min (>60); Est Glom Filt Rate - Afr Amer 81 mL/min (>60); Estimated Creatinine Clearance 75.18 ml/min; Glucose 78 mg/dL (74-106); Potassium 3.8 mmol/L (3.5-5.1); Sodium Level 139 mmol/L (136-145); Troponin-I HS 8 pg/mL (3.0-78.0)
[2024-01-25 12:51] LABS: Partial Thromboplast Time 28.5 Seconds (24.1-36.2)
--- NOTE | 2024-01-25 13:05 | RAD_ITS ---
INDICATION: Neuro deficit, acute, stroke suspected EXAMINATION/TECHNIQUE: X-RAY - XR Chest 2 frontal views COMPARISON: January 03, 2024 FINDINGS: LINES/DEVICES: None. LUNGS: No consolidation, edema or effusion. No pneumothorax. MEDIASTINUM AND CARDIOVASCULAR STRUCTURES: Cardiac silhouette not enlarged. Central airways and mediastinal contour are unremarkable. BONES AND SOFT TISSUES: Unremarkable. RAD/Chest 1 View IMPRESSION: No radiographic evidence of acute cardiopulmonary disease. Electronically Signed: Patti Nguyen MD at 13:17 EST ,
--- NOTE | 2024-01-25 13:25 | MRI_ITS ---
STUDY: MRI BRAIN WITHOUT CONTRAST REASON FOR EXAM: Male, 68 years old. stroke TECHNIQUE: Standardized multiplanar fat and water weighted pulse sequences were obtained. COMPARISON: None. FINDINGS: Mild atrophy and advanced periventricular white matter ischemic changes without mass effect or restricted diffusion... Old bilateral small lacunar infarcts in the basal ganglia and thalamus. There is no extra-axial fluid accumulation. Normal flow voids within the major intracranial circulation suggesting patency by spin echo criteria. There are scattered tiny foci of hemosiderin within the cerebral hemispheres and cerebellar hemispheres bilaterally. Normal sella turcica, pituitary gland, infundibular stalk, optic chiasm and hypothalamus. Normal tectal plate and pineal gland. Chronic ischemic changes within the rico Normal midbrain, and medulla. Tiny foci of chronic ischemic changes in the cerebellar hemispheres. Normal basal cisterns. Normal bilateral temporal bones. Normal bilateral internal auditory canals. Hussein cisterna magna is observed which is normal developmental variant Postsurgical changes of the orbits. Normal visualized paranasal sinuses. Normal calvarium and skull base. Normal visualized soft tissue structures. Normal visualized upper cervical spine. MRI/Brain without Contrast IMPRESSION: Atrophy and advanced periventricular white matter ischemic changes without evidence for acute infarct. Small old bilateral lacunar infarcts and chronic ischemic changes within the rico and cerebellar hemispheres Electronically Signed: Wilman Queen MD at 17:07 EST ,
--- NOTE | 2024-01-25 13:27 | PCM.HP.STD ---
HPI - General General Date of Admission: 01/25/24 Date of Service: 01/25/24 Chief Complaint: Confusion HPI Narrative OLGA RODRIGUEZ, is a 68 M who presented to the emergency department at [facility] on 01/25/2024 with acute on chronic confusion. The patient was recently admitted here from 01/05/2024 through 01/07/2024 at which time he was found to have recurrent choledocholithiasis. He had ERCP with stent and removal of the stone and had been doing quite well. He went to [place] and was there for about 24 hours at which time he developed acute confusion that lasted for about 30 minutes with left upper extremity weakness. He and his decided to come home the next day due to the symptoms but then he was doing fine again so they did not come to the emergency department or be seen by physician. His reports today sometime between 1030 and 1045 that he had worsening confusion and some staring. Upon presentation he was a bit of trouble expressing himself but was able to move all 4 extremities and had no sensory deficits. He had a stroke workup in 2022 and has had intermittent recurrent symptoms since. His feels that he is having some mild confusion on a chronic basis at home and feels like he may have some memory issues. He is alert and oriented x 3 but does have trouble with detail. His states that he does not remember anything she tells him to do but she thought this may be just because he was her . He does have a history of diabetes, hyperlipidemia and tobacco abuse. He had quit smoking but recently took up smoking again and is currently smoking about a pack of cigarettes daily. He has been compliant with all his home medications including his aspirin. He states he started smoking again once he got his stroke diagnosis because he was frustrated with all medical issues he was dealing with. His 0 and he had no significant neurological deficits on my evaluation. He has been following with speech therapy for some dysphagia status post his previous stroke. Vital signs show temperature of 97, heart rate 100, blood pressure was 134/91, respiratory rate was 16 oxygen saturations were 100% on room air. His CBC was completely unremarkable. Coags were normal. His chemistry panel was unremarkable. An ammonia level was pending. EKG shows normal sinus rhythm without any ST-T wave changes concerning for ischemia and no abnormal intervals. CT of the brain shows chronic small vessel ischemia and bilateral basal ganglia and left thalamic lacunar infarcts. CTA of the head and neck shows atherosclerosis without any hemodynamically significant stenosis. Chest x-ray was unremarkable. [facility] Medical History Abdominal discomfort Choledocholithiasis Common bile duct dilation COPD (chronic obstructive pulmonary disease) CPAP (continuous positive airway pressure) dependence Diabetes Elevated liver transaminase level Gastroparesis GERD (gastroesophageal reflux disease) History of diabetes mellitus History of multiple cerebrovascular accidents (CVAs) History of stroke Jaundice Non-smoker Sleep apnea Slurred speech Stroke-like symptoms Stroke/cerebrovascular accident Unintentional weight loss of 1-2% body weight within 1 week Home Medications insulin glargine 100 unit/mL (3 mL) subcutaneous pen (Lantus Solostar U-100 Insulin) 50 units subcut QHS DABETES 02/27/15 [History Last Taken 01/24/24] insulin lispro 100 unit/mL subcutaneous pen (Humalog KwikPen (U-100) Insulin) 22 unit subcut TID DIABETES 02/27/15 [History Last Taken 01/25/24] fluticasone fur. 100 mcg-umeclid 62.5 mcg-vilant 25 mcg inhalat.powder (Trelegy Ellipta) 1 inh inhalation DAILY SHORTNESS OF BREATH/WHEEZING 09/05/23 [History Last Taken 01/05/24] venlafaxine 150 mg capsule,extended release 24 hr 150 mg PO DAILY DEPRESSION 09/05/23 [History Last Taken 01/25/24] atorvastatin 80 mg tablet 80 mg PO QHS CHOLESTEROL #30 tabs 09/07/23 [Rx Last Taken 01/24/24] aspirin 81 mg chewable tablet 81 mg PO DAILY HEART HEALTH 11/02/23 [History Last Taken 01/24/24] finasteride 5 mg tablet 5 mg PO DAILY 01/05/24 [History Last Taken 01/25/24] ondansetron HCl 8 mg tablet 8 mg PO Q8H PRN nausea and vomiting #20 tabs 01/07/24 [Rx Last Taken 01/11/24] lactulose 10 gram/15 mL (15 mL) oral solution 10 g PO DAILY PRN constipation 01/25/24 [History Last Taken 01/11/24] tamsulosin 0.4 mg capsule 0.4 mg PO BID 01/25/24 [History Last Taken 01/25/24] Allergy/AdvReac Type Severity Reaction Status Date / Time Penicillins Allergy Intermediate Hives Verified 01/25/24 11:46 Family History Other Alzheimer disease Breast cancer Thyroid cancer Surgical History History of ear surgery Social History household members: spouse housing: house Smoking Status: Current every day smoker tobacco type: cigarettes Tobacco: How many years used: 50 how long ago did patient quit smoking: alcohol intake: never substance use type: does not use ROS Constitutional Constitutional: Reports weakness; Denies anorexia, change in weight, chills, fatigue, fever(s), malaise, night sweats or other Eyes Eyes: Denies blurry vision, change in eye color, change in vision, discharge from eye(s), double vision, erythema, eye pain, loss of vision or other ENT HEENT: Reports abnormal hearing and hearing loss; Denies dysphagia, ear pain, epistaxis, headache(s), nasal congestion, nasal discharge, post nasal drip, sinus pressure, sore throat or other Cardiovascular Cardiovascular: Denies chest pain, claudication, dyspnea on exertion, edema, lightheadedness, orthopnea, palpitations, paroxysmal nocturnal dyspnea, rapid heart rate, syncope or other Respiratory/Chest Respiratory/Chest: Denies cough, dyspnea, excessive phlegm production, hemoptysis, productive cough, shortness of breath at rest, shortness of breath with exertion, wheezing or other Gastrointestinal Gastrointestinal: Denies abdominal pain, coffee ground emesis, constipation, diarrhea, dyspepsia, hematemesis, hematochezia, loose stools, melena, nausea, vomiting or other Genitourinary Genitourinary: Denies burning urination, difficulty urinating, dysuria, hematuria, nocturia, urinary frequency, urinary hesitancy, urinary incontinence, urinary urgency or other Musculoskeletal Musculoskeletal: Denies arthralgias, back pain, joint pain, joint stiffness, joint swelling, myalgias, neck pain or other Neurologic Neurologic: Reports abnormal speech, confusion and focal weakness; Denies abnormal gait, disequilibrium, dizziness, headache(s), numbness, paresthesias, seizure-like activity, seizures, syncope, tingling, tremor(s) or other Psychiatric Psychiatric: Denies anxiety, depression, homicidal ideation, suicidal ideation or other Endocrine Endocrinology: Denies change in body appearance, cold intolerance, excessive sweating, heat intolerance, polydipsia, polyuria or other Hematologic/Lymphatic Hematologic/Lymphatic: Denies anemia, easy bleeding, easy bruising, lymphadenopathy or other Allergic/Immunologic Allergic/Immunologic: Denies rhinitis, hives, eczemia, asthma or other Vital Signs Vital Signs Vital Signs: 01/25/24 11:45 01/25/24 11:57 01/25/24 11:57 Temperature 97.0 F L 97.7 F L Temperature Source Temporal Temporal Pulse Rate 100 95 Respiratory Rate 16 16 Blood Pressure 134/91 H 145/73 H Blood Pressure Mean 105 97 Pulse Ox 100 98 Oxygen Delivery Method Room Air Room Air Room Air 01/25/24 11:57 01/25/24 11:57 01/25/24 12:25 Temperature Temperature Source Pulse Rate 79 79 78 Respiratory Rate 16 16 18 Blood Pressure 128/92 H 128/92 H 137/67 H Blood Pressure Mean 104 104 90 Pulse Ox 97 97 94 Oxygen Delivery Method Room Air Room Air Room Air 01/25/24 12:30 01/25/24 12:44 01/25/24 12:44 Temperature Temperature Source Pulse Rate 78 79 79 Respiratory Rate 16 20 H 20 H Blood Pressure 137/67 H 139/65 H 139/65 H Blood Pressure Mean 90 89 89 Pulse Ox 96 94 94 Oxygen Delivery Method Room Air Room Air Room Air Weight Weight: 99.337 kg Body Mass Index (BMI) 28.8 Physical Exam Const alert, oriented x3, no apparent distress and well nourished; Negative for average body habitus Constitutional Narrative: Overweight, upper middle-aged, white male, sitting up in bed, appears comfortable and nontoxic, at bedside, patient speech is slightly slurred than his previous baseline from what I can remember when I admitted him 2 weeks ago General Appearance: cooperative HEENT normocephalic, head/scalp atraumatic and moist oral mucous membranes HEENT Narrative: Mild to moderate hearing loss with hearing aids in place, Mallampati 3, no thrush Eyes PERRL, EOMs intact bilaterally and conjunctivae normal Eyes Narrative: No scleral icterus Neck no lymphadenopathy and supple Neck Narrative: Trachea midline, no thyroid enlargement Resp normal respiratory effort, no retractions, no use of accessory muscles and clear to auscultation bilaterally Resp Narrative: Diffusely diminished but clear Auscultation: Negative for rales, rhonchi or wheezes Cardio regular rate, regular rhythm, S1 normal heart sound, S2 normal heart sound, no murmurs, no rub, no gallops and no clicks GI normal to inspection, nondistended, normoactive bowel sounds, soft to palpation and non-tender Extremity no clubbing, cyanosis or edema Extremity Narrative: Pedal pulses are 2+ Skin No no rashes or lesions noted, no wounds, skin turgor normal, no jaundice, no petechiae and no mottling Skin Narrative: Scattered ecchymosis upper extremities bilaterally in various stages of healing Neuro oriented x3, CN's II-XII intact bilaterally, moves all extremities and no focal motor deficits Neuro Narrative: Reflexes are 2+ bilateral upper and lower extremities, slightly worsening dysarthria today compared to his previous baseline but speech is intelligible Psych affect normal Psych Narrative: Very pleasant, interacts appropriately Results Lab / Micro Data 01/25/24 12:14 01/25/24 12:14 Labs: Laboratory Results - last 24 hr 01/25/24 11:59: POC Glucose 75 01/25/24 12:14: WBC 8.0, RBC 5.82, Hgb 15.7, Hct 48.7, MCV 83.7, MCH 27.0, MCHC 32.2, RDW Std Deviation 47.1 H, RDW Coeff of [place] 15.6 H, Plt Count 261, MPV 11.7, Immature Gran % (Auto) 0.200, Neut % (Auto) 65.9, Lymph % (Auto) 20.0, [place] % (Auto) 8.2, Eos % (Auto) 4.6, Baso % (Auto) 1.1 H, Absolute Neuts (auto) 5.3, Absolute Lymphs (auto) 1.60, Nucleated RBC % 0, PT 13.7, INR 1.1, APTT 28.5, Sodium 139, Potassium 3.8, Chloride 105, Carbon Dioxide 28.0, Anion Gap 6, BUN 14, Creatinine 1.15, Estim Creat Clear Calc 75.18, Est GFR (MDRD) Af Amer 81, Est GFR (MDRD) Non-Af 67, BUN/Creatinine Ratio 12.2, Glucose 78, Calcium 9.2, Troponin I High Sens 8 Imaging Radiology Impression Head/Neck CTA 01/25/24 11:58 IMPRESSION: Atherosclerosis with no hemodynamically significant stenosis. N.B. : The above Results were Read Back by Patti Nguyen MD to DO Len, and understanding confirmed on 01/25/2024 12:48:10 (ET). Electronically Signed: Patti Nguyen MD at 12:49 EST , ADDENDUM: 01/25/24 1256 IMPRESSION: Atherosclerosis with no hemodynamically significant stenosis. N.B. : The above Results were Read Back by Patti Nguyen MD to DO Len, and understanding confirmed on 01/25/2024 12:48:10 (ET). Electronically Signed: Patti Nguyen MD at 12:49 EST , Brain CT 01/25/24 12:00 IMPRESSION: Stable examination demonstrating small vessel ischemia and bilateral basal ganglia and left thalamic lacunar infarcts. N.B. : The above Results were Read Back by Patti Nguyen MD to Werner Harrington DO, and understanding confirmed on 01/25/2024 12:13:08 (ET). Electronically Signed: Patti Nguyen MD at 12:14 EST , ADDENDUM: 01/25/24 1221 IMPRESSION: Stable examination demonstrating small vessel ischemia and bilateral basal ganglia and left thalamic lacunar infarcts. N.B. : The above Results were Read Back by Patti Nguyen MD to Werner Harrington DO, and understanding confirmed on 01/25/2024 12:13:08 (ET). Electronically Signed: Patti Nguyen MD at 12:14 EST , Chest X-Ray 01/25/24 13:05 IMPRESSION: No radiographic evidence of acute cardiopulmonary disease. Electronically Signed: Patti Nguyen MD at 13:17 EST , Assessment & Plan Assessment/Plan (1) Confusion: (2) Altered mental status: PLAN: Plan Altered mental status/confusion -Highly suspect the patient probably has some vascular dementia with possible recent TIA versus infarct -Will admit to PCU with stroke order set and protocol -Patient does have history of stroke -Already takes aspirin so we will continue -Will add Plavix load with 300 mg now and then start 70 mg daily to follow -Patient has had echocardiogram with bubble study that was negative--> no need to repeat -Check MRI -Continue high intensity dose statin -Check lipids -Check hemoglobin A1c -Will check EEG -Neurology consultation -I do highly suspect that he probably has some baseline vascular dementia Recurrent choledocholithiasis -Patient with choledocholithiasis status post ERCP and biliary stent placement and sphincterotomy with stone removal in October 2023 -Then presented on 01/05/2024 with recurrent similar symptoms and was taken for ERCP and found to have a 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 with dilation secondary to the stricture and choledocholithiasis which was removed with biliary sphincterotomy and balloon extraction with 1 stent exchange in the biliary tree and 1 temporary stent placed into the ventral pancreatic duct -Patient does need outpatient cholecystectomy and is to follow-up with general surgery -Current labs are unremarkable -Continue outpatient GI and general surgery follow-up Gastroparesis -Patient had a abnormal gastric emptying study performed on 12/08/2023 -Patient has follow-up with GI for this -Currently not on any Reglan or other medications to address -Likely related to his longstanding diabetes -Continue outpatient GI follow-up History of dysphagia -Patient is following with outpatient speech therapy -Current recommend diet is soft with thin liquids per most recent documentation on 10/25/2023 -Will continue this diet for now -Speech therapy is following History of stroke -Continue risk factor modification -Aspirin on hold for now for possible intervention -Continue aspirin -See above Hyperlipidemia -Continue home atorvastatin DM-2 -Continue Lantus 50 units at at bedtime and prandial insulin 22 units 3 times daily -SSI -Accu-Cheks as ordered -Last hemoglobin A1c was 8.6 on 11/04/2023--> will recheck GERD -Patient is currently not on any PPI BPH with obstruction -Continue 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
[2024-01-25] MEDS: Aspirin 325 MG Tablet PO (13:58)
--- NOTE | 2024-01-25 14:10 | NURSING ---
PCU OBS JAKE ALTERED MENTAL STATUS, TIA
[2024-01-25] MEDS: Clopidogrel Bisulfate 300 MG Tablet PO (17:06)
[2024-01-25] MEDS: Tamsulosin HCl 0.4 MG Capsule 0.400000000000000022 MG PO (17:06)
[2024-01-25] MEDS: Insulin Lispro 100 UNIT/ML INSULN.PEN 22 UNIT SC (17:06)
[2024-01-25] MEDS: Insulin Lispro 100 UNIT/ML INSULN.PEN SC (17:07)
[2024-01-25 18:37] LABS: Bedside Glucose 155 mg/dL (74-106)
[2024-01-25] MEDS: Ipratropium/Albuterol Sulfate 3 ML AMPUL.NEB INHALATION (19:30)
[2024-01-25] MEDS: Budesonide Respules 0.5 MG/2 ML AMPUL.NEB. INHALATION (19:30)
[2024-01-25] MEDS: 0.9% Saline Lock 10 ML Syringe IV (21:05)
[2024-01-25] MEDS: Atorvastatin Calcium 80 MG Tablet PO (21:05)
[2024-01-25] MEDS: Insulin Glargine-YFGN 100 UNIT/ML Pen 50 UNIT SC (21:05)
--- NOTE | 2024-01-25 21:23 | CPS ---
patient does not wish to wear our cpap machine at this time as he plans on this being a short hospital stay and also is not going to have his machine brought in from home
[2024-01-25 22:56] LABS: Bedside Glucose 266 mg/dL (74-106)
[2024-01-26 00:10] VITALS: BP 153/75; PULSE 75; RESP 16; TEMP 36.7; O2SAT 95
[2024-01-26 00:23] VITALS: BMI 27.6
[2024-01-26 04:00] VITALS: BP 148/85; PULSE 73; RESP 18; TEMP 36.7; O2SAT 93
[2024-01-26 06:48] LABS: Absolute Lymphocyte Count 1.48 X10^3/uL (0.83-4.51); Absolute Neutrophil Count 5.3 X10^3/uL (2.0-7.7); Basophil# 0.07 X10^3/uL; Basophil% 0.9 % (0-1); Eosinophil# 0.58 X10^3/uL; Eosinophils% 7.1 % (0-5); Hematocrit 45.2 % (40-54); Hemoglobin 14.7 g/dL (13.0-16.5); Lymphocyte # 1.48 X10^3/ul (0.83-4.51); Lymphocyte % 18.2 % (19-41); Mean Corp Hgb Conc 32.5 g/dL (32-36); Mean Corpuscular Hgb 27.1 pg (27.0-32.0); Mean Corpuscular Volume 83.2 fL (80-94); Mean Platelet Vol. 12.6 fl (6.2-12.0); Monocyte# 0.68 X10^3/uL; Monocyte% 8.4 % (0-10); NRBC Flagged by Analyzer 0 % (0-5); Neutrophil # 5.29 X10^3/uL (2.7-7.7); Neutrophil % 65.2 % (47-70); Platelet Count 255 K/mm3 (150-450); RBC Distribution Width CV 15.7 % (11.6-14.6); RBC Distribution Width SD 47.3 fl (35.1-43.9); Red Blood Count 5.43 M/mm3 (4.6-6.2); White Blood Count 8.1 K/mm3 (4.4-11.0)
[2024-01-26 07:19] LABS: Anion Gap 10 (5-15); BUN 14 mg/dL (7-18); BUN/Creat Ratio 14.5 RATIO (10-20); Calcium,Total 8.6 mg/dL (8.5-10.1); Chloride 105 mmol/L (98-107); Cholesterol 100 mg/dL (200); Creatinine, Serum 0.97 mg/dL (0.70-1.30); EST Glomerular Filtration Rate 82 mL/min (>60); Est Glom Filt Rate - Afr Amer 99 mL/min (>60); Estimated Creatinine Clearance 81.23 ml/min; Glucose 107 mg/dL (74-106); High Density Lipoprotein 40 mg/dL; Magnesium 2.2 mg/dL (1.6-2.6); Potassium 3.6 mmol/L (3.5-5.1); Sodium Level 140 mmol/L (136-145); Triglycerides 86 mg/dL; Very Low Density Lipoprotein 17 mg/dL (5-40)
[2024-01-26 07:38] VITALS: O2SAT 95
[2024-01-26 08:25] LABS: Bedside Glucose 134 mg/dL (74-106)
[2024-01-26 09:17] VITALS: BP 128/70; PULSE 71; RESP 18; TEMP 36.4; O2SAT 93
[2024-01-26] MEDS: Enoxaparin 40 MG/0.4 ML Syringe SC (10:02)
[2024-01-26] MEDS: Tamsulosin HCl 0.4 MG Capsule 0.400000000000000022 MG PO (10:03)
[2024-01-26] MEDS: Clopidogrel Bisulfate 75 MG Tablet PO (10:03)
[2024-01-26] MEDS: Venlafaxine XR 150 MG Capsule PO (10:03)
[2024-01-26] MEDS: Finasteride 5 MG Tablet PO (10:03)
[2024-01-26] MEDS: Aspirin 81 MG TAB.CHEW PO (10:03)
[2024-01-26] MEDS: Insulin Lispro 100 UNIT/ML INSULN.PEN 22 UNIT SC ×2 (10:12→13:47)
--- NOTE | 2024-01-26 10:16 | PCM.PN.HOSP ---
Reason for Visit Reason for Visit: Diagnoses Disorientation, unspecified (01/25/24) Altered mental status, unspecified (01/25/24) Objective Data Objective Data Vital Signs: Vital Signs Temp Pulse Resp BP Pulse Ox O2 Del Method 97.6 F L 71 18 128/70 H 93 Room Air 01/26/24 09:17 01/26/24 09:17 01/26/24 09:17 01/26/24 09:17 01/26/24 09:17 01/26/24 09:17 Oxygen Delivery Method Room Air Weight: 209 lb 12.8 oz Body Mass Index (BMI) 27.6 Lab / Micro Data 01/26/24 06:02 01/26/24 06:02 Labs: Laboratory Results - last 24 hr 01/25/24 11:59: POC Glucose 75 01/25/24 12:14: WBC 8.0, RBC 5.82, Hgb 15.7, Hct 48.7, MCV 83.7, MCH 27.0, MCHC 32.2, RDW Std Deviation 47.1 H, RDW Coeff of [place]oshana 15.6 H, Plt Count 261, MPV 11.7, Immature Gran % (Auto) 0.200, Neut % (Auto) 65.9, Lymph % (Auto) 20.0, [place] % (Auto) 8.2, Eos % (Auto) 4.6, Baso % (Auto) 1.1 H, Absolute Neuts (auto) 5.3, Absolute Lymphs (auto) 1.60, Nucleated RBC % 0, PT 13.7, INR 1.1, APTT 28.5, Sodium 139, Potassium 3.8, Chloride 105, Carbon Dioxide 28.0, Anion Gap 6, BUN 14, Creatinine 1.15, Estim Creat Clear Calc 75.18, Est GFR (MDRD) Af Amer 81, Est GFR (MDRD) Non-Af 67, BUN/Creatinine Ratio 12.2, Glucose 78, Calcium 9.2, Troponin I High Sens 8 01/25/24 13:30: Ammonia 19.0 01/25/24 17:05: POC Glucose 155 H 01/25/24 21:04: POC Glucose 266 H 01/26/24 06:02: WBC 8.1, RBC 5.43, Hgb 14.7, Hct 45.2, MCV 83.2, MCH 27.1, MCHC 32.5, RDW Std Deviation 47.3 H, RDW Coeff of [place] 15.7 H, Plt Count 255, MPV 12.6 H, Immature Gran % (Auto) 0.200, Neut % (Auto) 65.2, Lymph % (Auto) 18.2 L, [place] % (Auto) 8.4, Eos % (Auto) 7.1 H, Baso % (Auto) 0.9, Absolute Neuts (auto) 5.3, Absolute Lymphs (auto) 1.48, Nucleated RBC % 0, Sodium 140, Potassium 3.6, Chloride 105, Carbon Dioxide 25.0, Anion Gap 10, BUN 14, Creatinine 0.97, Estim Creat Clear Calc 81.23, Est GFR (MDRD) Af Amer 99, Est GFR (MDRD) Non-Af 82, BUN/Creatinine Ratio 14.5, Glucose 107 H, Calcium 8.6, Phosphorus 4.0, Magnesium 2.2, Triglycerides 86, Cholesterol 100, LDL Cholesterol 43, VLDL Cholesterol 17, HDL Cholesterol 40 01/26/24 08:06: POC Glucose 134 H Radiography Diagnostic Testing: Radiology Impression Head/Neck CTA 01/25/24 11:58 IMPRESSION: Atherosclerosis with no hemodynamically significant stenosis. Brain CT 01/25/24 12:00 IMPRESSION: Stable examination demonstrating small vessel ischemia and bilateral basal ganglia and left thalamic lacunar infarcts. Chest X-Ray 01/25/24 13:05 IMPRESSION: No radiographic evidence of acute cardiopulmonary disease. Electronically Signed: Patti Nguyen MD at 13:17 EST , Brain MRI 01/25/24 13:25 IMPRESSION: Atrophy and advanced periventricular white matter ischemic changes without evidence for acute infarct. Small old bilateral lacunar infarcts and chronic ischemic changes within the rico and cerebellar hemispheres Electronically Signed: Wilman Queen MD at 17:07 EST , Assessment & Plan Assessment/Plan (1) Confusion: (2) Altered mental status: PLAN: Plan 68-year-old gentleman was last known well between 09 19- and was reportedly staring and confused. As per , last week on January 18 he could not move his left arm for 40 minutes and was confused. Altered mental status/confusion -Highly suspect the patient probably has some vascular dementia with possible recent TIA versus infarct -Will admit to PCU with stroke order set and protocol -Patient does have history of stroke -Already takes aspirin so we will continue -Will add Plavix load with 300 mg now and then start 70 mg daily to follow -Patient has had echocardiogram with bubble study that was negative--> no need to repeat -Check MRI -Continue high intensity dose statin -Check lipids -Check hemoglobin A1c -Will check EEG -Neurology consultation -I do highly suspect that he probably has some baseline vascular dementia Recurrent choledocholithiasis -Patient with choledocholithiasis status post ERCP and biliary stent placement and sphincterotomy with stone removal in October 2023 -Then presented on 01/05/2024 with recurrent similar symptoms and was taken for ERCP and found to have a 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 with dilation secondary to the stricture and choledocholithiasis which was removed with biliary sphincterotomy and balloon extraction with 1 stent exchange in the biliary tree and 1 temporary stent placed into the ventral pancreatic duct -Patient does need outpatient cholecystectomy and is to follow-up with general surgery -Current labs are unremarkable -Continue outpatient GI and general surgery follow-up Gastroparesis -Patient had a abnormal gastric emptying study performed on 12/08/2023 -Patient has follow-up with GI for this -Currently not on any Reglan or other medications to address -Likely related to his longstanding diabetes -Continue outpatient GI follow-up History of dysphagia -Patient is following with outpatient speech therapy -Current recommend diet is soft with thin liquids per most recent documentation on 10/25/2023 -Will continue this diet for now -Speech therapy is following History of stroke -Continue risk factor modification -Aspirin on hold for now for possible intervention -Continue aspirin -See above Hyperlipidemia -Continue home atorvastatin DM-2 -Continue Lantus 50 units at at bedtime and prandial insulin 22 units 3 times daily -SSI -Accu-Cheks as ordered -Last hemoglobin A1c was 8.6 on 11/04/2023--> will recheck GERD -Patient is currently not on any PPI BPH with obstruction -Continue home Flomax -Continue home finasteride History of COPD -Continue home inhalers Depression -Continue home venlafaxine CALLI -Continue home CPAP DVT prophylaxis -Lovenox subcu 40 mg daily CODE STATUS -DNR CCA okay for short-term intubation as verified with patient on presentation
--- NOTE | 2024-01-26 11:29 | NURSING ---
0800 NIHSS late as EEG being preformed at this time.
[2024-01-26 11:41] VITALS: BMI 27.6
[2024-01-26 11:57] LABS: Hemoglobin A1c 7.2 % (3.8-5.6)
[2024-01-26] MEDS: Insulin Lispro 100 UNIT/ML INSULN.PEN SC (12:15)
[2024-01-26 12:36] LABS: Bedside Glucose 245 mg/dL (74-106)
--- NOTE | 2024-01-26 14:16 | NEURO.CONS ---
Assessment and Plan: Neuro Assessment/Plan #Chronic severe small vessel disease- Current presentations likely a manifestation of stroke recrudescene and transient confusion spell. Discussed the radiographic findings on his MRI are due to long standing disease and there is no acute pathology. He likely has cognitive impairment and possibly vascular dementia, but will need an outpatient assessment to confirm this suspicion. I think a seizure is unlikely at this time but if he were to have recurrent events, then an EEG may be considered. Would recommend ruling out treatable causes of stroke recrudescence. Should follow up with PCP and outpatient neurology. -ASA 81, atorvastatin 80 -BP control: goal normotension 120/80 -LDL goal <70, HbA1c goal <7. Please optimize risk factors -recommend ruling out toxic/metabolic/infectious derangement: CXR, UA, CBC, CMP, TSH, B12, ensure adequate volume status -outpatient sleep study -Provided counseling on lifestyle including diet and exercise. -Highlighted the imporance of tobacco cessation as the patient still smokes -PT/OT/DIRECTOR TOXICOLOGY -outpatient follow up with PCP and neurology -discussed stroke warning signs and to call 911 if symptoms reoccur --no need for additional stroke work up. will sign off. please reach out if any additional questions HPI Consult Data Date of Consult: 01/26/24 HPI Narrative HPI Narrative: 68 yo M w PMH COPD, CALLI, ?DM, prior stroke (most recently in August with lacunar infarct), HLD, current tobacco abuse presenting with worsening confusion. Was recently admitted in Dec with choledocholithiasis requiring and ERCP and stent. Presented to the ER with worsening confusion and transient LUE weakness. He was staring off and had some difficulty expressing himself. The patient is a poor historian and has difficulty telling me why he is in the hospital. assits with history. States that 1 week ago he was at restaurant and eating in [place] on vacation when he noted that he had numbness and weakness in the LUE. The states that he had a confused look on his face. The whole episode lasted 30 minutes. The states that she was concerned with the transient episode of staring off yesterday for 15 minutes. He is always weak per the on the left side due to a prior stroke. states that over the past 6 months to a year he has been having progressive cognitive issues with memory, word recall, and decreased verbal output. Currently patient and feel he is back to his baseline. [facility], [facility] Medical History Abdominal discomfort Choledocholithiasis Common bile duct dilation COPD (chronic obstructive pulmonary disease) CPAP (continuous positive airway pressure) dependence Diabetes Elevated liver transaminase level Gastroparesis GERD (gastroesophageal reflux disease) History of diabetes mellitus History of multiple cerebrovascular accidents (CVAs) History of stroke Jaundice Non-smoker Sleep apnea Slurred speech Stroke-like symptoms Stroke/cerebrovascular accident Unintentional weight loss of 1-2% body weight within 1 week Home Medications insulin glargine 100 unit/mL (3 mL) subcutaneous pen (Lantus Solostar U-100 Insulin) 50 units subcut QHS DABETES 02/27/15 [History Last Taken 01/24/24] insulin lispro 100 unit/mL subcutaneous pen (Humalog KwikPen (U-100) Insulin) 22 unit subcut TID DIABETES 02/27/15 [History Last Taken 01/25/24] fluticasone fur. 100 mcg-umeclid 62.5 mcg-vilant 25 mcg inhalat.powder (Trelegy Ellipta) 1 inh inhalation DAILY SHORTNESS OF BREATH/WHEEZING 09/05/23 [History Last Taken 01/05/24] venlafaxine 150 mg capsule,extended release 24 hr 150 mg PO DAILY DEPRESSION 09/05/23 [History Last Taken 01/25/24] atorvastatin 80 mg tablet 80 mg PO QHS CHOLESTEROL #30 tabs 09/07/23 [Rx Last Taken 01/24/24] aspirin 81 mg chewable tablet 81 mg PO DAILY HEART HEALTH 11/02/23 [History Last Taken 01/24/24] finasteride 5 mg tablet 5 mg PO DAILY 01/05/24 [History Last Taken 01/25/24] ondansetron HCl 8 mg tablet 8 mg PO Q8H PRN nausea and vomiting #20 tabs 01/07/24 [Rx Last Taken 01/11/24] lactulose 10 gram/15 mL (15 mL) oral solution 10 g PO DAILY PRN constipation 01/25/24 [History Last Taken 01/11/24] tamsulosin 0.4 mg capsule 0.4 mg PO BID 01/25/24 [History Last Taken 01/25/24] Allergy/AdvReac Type Severity Reaction Status Date / Time Penicillins Allergy Intermediate Hives Verified 01/25/24 11:46 Family History Other Alzheimer disease Breast cancer Thyroid cancer Surgical History History of ear surgery Social History household members: spouse housing: house Smoking Status: Current every day smoker tobacco type: cigarettes Tobacco: How many years used: 50 how long ago did patient quit smoking: alcohol intake: never substance use type: does not use Vital Signs Vital Signs Vital Signs: 01/25/24 14:56 01/25/24 15:23 01/25/24 17:25 Temperature 97.5 F L Temperature Source Temporal Pulse Rate 73 Respiratory Rate 18 Respiratory Effort Normal Non-Labored Respiratory Depth Normal Respiratory Pattern Normal Blood Pressure 150/83 H Blood Pressure Mean 105 Blood Pressure Source Monitor Blood Pressure Position Semi-Fowlers Blood Pressure Location Right Arm Pulse Ox 98 96 Oxygen Delivery Method Room Air Room Air Room Air 01/25/24 18:11 01/25/24 19:34 01/25/24 19:34 Temperature 97.5 F L Temperature Source Temporal Pulse Rate 78 76 Respiratory Rate 18 16 Respiratory Effort Respiratory Depth Respiratory Pattern Blood Pressure 139/66 H Blood Pressure Mean 90 Blood Pressure Source Monitor Blood Pressure Position Semi-Fowlers Blood Pressure Location Right Arm Pulse Ox 95 94 Oxygen Delivery Method Room Air Room Air 01/25/24 20:01 01/25/24 21:00 01/26/24 00:10 Temperature 98.4 F 98.1 F Temperature Source Oral Oral Pulse Rate 86 75 Respiratory Rate 18 16 Respiratory Effort Normal Non-Labored Respiratory Depth Normal Respiratory Pattern Normal Blood Pressure 141/85 H 153/75 H Blood Pressure Mean 103 101 Blood Pressure Source Blood Pressure Position Blood Pressure Location Pulse Ox 94 95 Oxygen Delivery Method Room Air Room Air Room Air 01/26/24 00:15 01/26/24 04:00 01/26/24 09:17 Temperature 98.0 F 97.6 F L Temperature Source Oral Temporal Pulse Rate 73 71 Respiratory Rate 18 18 Respiratory Effort Normal Non-Labored Respiratory Depth Normal Respiratory Pattern Normal Blood Pressure 148/85 H 128/70 H Blood Pressure Mean 106 89 Blood Pressure Source Monitor Blood Pressure Position Semi-Fowlers Blood Pressure Location Right Arm Pulse Ox 93 93 Oxygen Delivery Method Room Air Room Air Room Air 01/26/24 07:38 01/26/24 10:05 Temperature Temperature Source Pulse Rate Respiratory Rate Respiratory Effort Normal Non-Labored Respiratory Depth Normal Respiratory Pattern Normal Blood Pressure Blood Pressure Mean Blood Pressure Source Blood Pressure Position Blood Pressure Location Pulse Ox 95 Oxygen Delivery Method Room Air Room Air Weight Weight: 95.164 kg Body Mass Index (BMI) 27.6 NIHSS NIHSS Nursing Documentation NIHSS Nursing Documentation: NIHSS: Ischemic Stroke/TIA Start: 01/25/24 14:47 Text: For ICU Patients: NIH sroke scale at Status: Complete presentation and every 2 hours or with change in RN caregiver Freq: [id number] Protocol: Activity Type Activity Date Activity User E-sign Co-sign Detail Recorded Client Recorded Date Recorded By Document 01/25/24 18:11 KS Desktop 01/25/24 18:11 KS 01/25/24 18:11 NIH Stroke Scale [NIHSS] A score of 0 is normal or asymptomatic . Total possible score is 42. Inpatient: RN or Physician to activate a stroke alert for onset of new stroke symptoms or with NIHSS increase >/= 3 points. Following change in neurological status, NIHSS will be performed per physician order or more frequently PRN. -1a. Level of Consciousness Alert; keenly responsive -1b. LOC Questions Answers BOTH questions correctly. -1c. LOC Commands Performs both tasks correctly . -2. Best Gaze Normal -3. Visual No visual loss -4. Facial Palsy Normal symmetrical movements -5a. Left Arm No drift; arm holds 90 (or 45 ) degrees for full 10 seconds -5b. Right Arm No drift; arm holds 90 (or 45 ) degrees for full 10 seconds -6a. Left Leg No drift; leg holds 30-degree position for full 5 seconds -6b. Right Leg No drift; leg holds 30-degree position for full 5 seconds -7. Limb Ataxia Absent -8. Sensory Normal; no sensory loss -9. Best Language No aphasia; normal -10. Dysarthria Normal -11. Extinction and Inattention No abnormality -Total 0 Query Text:A score of 0 is normal or asymptomatic. Total possible score is 42 . ED: Notify Physician for NIHSS increase by > / = 3 points. Inpatient: RN or Physician to activate a stroke alert for NIHSS increase of > / = 3 points. Coma Scale [Assess] -Eye Opening Spontaneous -Motor Obeys Commands -Verbal Oriented [Total] -Coma Scale Total 15 NIHSS: Ischemic Stroke/TIA Start: 01/25/24 14:47 Text: For PCU Patients: NIH and Neuro Check every 4 Status: Complete hours and PRN Freq: [id number] Protocol: Activity Type Activity Date Activity User E-sign Co-sign Detail Recorded Client Recorded Date Recorded By Document 01/26/24 09:15 SS Desktop 01/26/24 11:28 SS 01/26/24 09:15 NIH Stroke Scale [NIHSS] A score of 0 is normal or asymptomatic . Total possible score is 42. Inpatient: RN or Physician to activate a stroke alert for onset of new stroke symptoms or with NIHSS increase >/= 3 points. Following change in neurological status, NIHSS will be performed per physician order or more frequently PRN. -1a. Level of Consciousness Alert; keenly responsive -1b. LOC Questions Answers one question correctly. -1c. LOC Commands Performs both tasks correctly . -2. Best Gaze Normal -3. Visual No visual loss -4. Facial Palsy Normal symmetrical movements -5a. Left Arm No drift; arm holds 90 (or 45 ) degrees for full 10 seconds -5b. Right Arm No drift; arm holds 90 (or 45 ) degrees for full 10 seconds -6a. Left Leg No drift; leg holds 30-degree position for full 5 seconds -6b. Right Leg No drift; leg holds 30-degree position for full 5 seconds -7. Limb Ataxia Absent -8. Sensory Normal; no sensory loss -9. Best Language No aphasia; normal -10. Dysarthria Normal -11. Extinction and Inattention No abnormality -Total 1 Query Text:A score of 0 is normal or asymptomatic. Total possible score is 42 . ED: Notify Physician for NIHSS increase by > / = 3 points. Inpatient: RN or Physician to activate a stroke alert for NIHSS increase of > / = 3 points. Coma Scale [Assess] -Eye Opening Spontaneous -Motor Obeys Commands -Verbal Confused [Total] -Coma Scale Total 14 Physical Exam Narrative MS: awake, alert, oriented, follows commands, able to name, no aphasia,no dysarthria CN: EOMI ?no facial droop M: ?Antigravity in all extremities, no drift Lab / Micro Data 01/26/24 06:02 01/26/24 06:02 Labs: Laboratory Results - last 24 hr 01/25/24 17:05: POC Glucose 155 H 01/25/24 21:04: POC Glucose 266 H 01/26/24 06:02: WBC 8.1, RBC 5.43, Hgb 14.7, Hct 45.2, MCV 83.2, MCH 27.1, MCHC 32.5, RDW Std Deviation 47.3 H, RDW Coeff of Shoshana 15.7 H, Plt Count 255, MPV 12.6 H, Immature Gran % (Auto) 0.200, Neut % (Auto) 65.2, Lymph % (Auto) 18.2 L, [place] % (Auto) 8.4, Eos % (Auto) 7.1 H, Baso % (Auto) 0.9, Absolute Neuts (auto) 5.3, Absolute Lymphs (auto) 1.48, Nucleated RBC % 0, Sodium 140, Potassium 3.6, Chloride 105, Carbon Dioxide 25.0, Anion Gap 10, BUN 14, Creatinine 0.97, Estim Creat Clear Calc 81.23, Est GFR (MDRD) Af Amer 99, Est GFR (MDRD) Non-Af 82, BUN/Creatinine Ratio 14.5, Glucose 107 H, Hemoglobin A1c 7.2 H, Calcium 8.6, Phosphorus 4.0, Magnesium 2.2, Triglycerides 86, Cholesterol 100, LDL Cholesterol 43, VLDL Cholesterol 17, HDL Cholesterol 40 01/26/24 08:06: POC Glucose 134 H 01/26/24 12:14: POC Glucose 245 H Imaging Radiology Impression Brain MRI 01/25/24 13:25 IMPRESSION: Atrophy and advanced periventricular white matter ischemic changes without evidence for acute infarct. Small old bilateral lacunar infarcts and chronic ischemic changes within the rico and cerebellar hemispheres Electronically Signed: Wilman Queen MD at 17:07 EST Reading Location ID and State: [facility] / [place] Tel , Service support , Active Medications Active Medications Active Medications: Current Medications Generic Name Dose Route Start Last Admin Trade Name Freq PRN Reason Stop Dose Admin Acetaminophen 650 mg 03/06/24 14:47 Acetaminophen 325 Mg Tablet PO Q6H PRN PRN Pain 1-10 Or Fever>100.7 Albuterol/Ipratropium 3 ml 01/25/24 15:10 01/25/24 19:30 Ipratropium/Albuterol Sulfate 3 Ml Ampul.Neb INHALATION 3 ml Q6HWA.RT HEENA Administration Aspirin 81 mg 01/26/24 08:00 01/26/24 10:03 Aspirin 81 Mg Tab.Chew PO 81 mg DAILYCM HEENA Administration Atorvastatin Calcium 80 mg 01/25/24 22:00 01/25/24 21:05 Atorvastatin Calcium 80 Mg Tablet PO 80 mg QHS HEENA Administration Budesonide 0.5 mg 01/25/24 15:10 01/25/24 19:30 Budesonide Respules 0.5 Mg/2 Ml Ampul.Neb. INHALATION 0.5 mg Q12H.RT HEENA Administration Clopidogrel Bisulfate 75 mg 01/26/24 10:00 01/26/24 10:03 Clopidogrel Bisulfate 75 Mg Tablet PO 75 mg DAILY HEENA Administration Dextrose 0 gm 01/25/24 14:47 Dextrose 50%-Water 25 Gm/50 Ml Disp.Syrin IV X1 PRN HYPOGLYCEMIA Protocol Enoxaparin Sodium 40 mg 01/26/24 10:00 01/26/24 10:02 Enoxaparin 40 Mg/0.4 Ml Syringe SC 40 mg DAILY HEENA Administration Finasteride 5 mg 01/26/24 10:00 01/26/24 10:03 Finasteride 5 Mg Tablet PO 5 mg DAILY HEENA Administration Glucagon 1 mg 01/25/24 14:47 Glucagon 1 Mg/Ml Syringe IM X1 PRN HYPOGLYCEMIA Hydralazine HCl 5 mg 01/25/24 14:47 Hydralazine 20 Mg/Ml Vial IV Q30M PRN to maintain BP goals Sodium Chloride 500 mls @ 15 mls/hr 01/25/24 14:49 IV PRN PRN Blood Transfusion Sodium Chloride 250 mls @ 15 mls/hr 01/25/24 14:49 IV .[id number] PRN Additional IVPB Infusion Sodium Chloride 250 mls @ 15 mls/hr 01/25/24 14:49 IV .[id number] PRN Saline Flush Insulin Glargine 50 unit 01/25/24 22:00 01/25/24 21:05 Insulin Glargine-Yfgn 100 Unit/Ml Pen SC 50 unit QHS HEENA Administration Insulin Human Lispro 22 unit 01/25/24 16:00 01/26/24 13:47 Insulin Lispro 100 Unit/Ml Insuln.Pen SC 22 unit TIDAC HEENA Administration Insulin Human Lispro 0 unit 01/25/24 16:00 01/26/24 12:15 Insulin Lispro 100 Unit/Ml Insuln.Pen SC 3 unit TIDAC HEENA Administration Protocol Labetalol HCl 10 - 20 mg 01/25/24 14:47 Labetalol (Prefilled) 20 Mg/4 Ml IV Q10M PRN PRN to Maintain BP Goals Melatonin 3 mg 01/25/24 14:47 Melatonin 3 Mg Tablet PO QHS PRN PRN INSOMNIA Ondansetron HCl 4 mg 01/25/24 14:47 Ondansetron 4 Mg/2 Ml Vial IV Q8H PRN PRN NAUSEA/VOMITING Senna/Docusate Sodium 2 tablet 01/25/24 14:47 Senna/Docusate Sodium 1 Tablet PO BID PRN PRN Constipation Sodium Chloride 10 - 40 ml 01/25/24 14:49 01/25/24 21:05 0.9% Saline Lock 10 Ml Syringe IV 10 ml UD PRN Administration SALINE FLUSH Tamsulosin HCl 0.4 mg 01/25/24 17:30 01/26/24 10:03 Tamsulosin Hcl 0.4 Mg Capsule PO 0.4 mg BID@0830,1730 [facility] Administration Venlafaxine HCl 150 mg 01/26/24 10:00 01/26/24 10:03 Venlafaxine Xr 150 Mg Capsule PO 150 mg DAILY HEENA Administration
--- NOTE | 2024-01-26 14:53 | DCINST_ITS ---
Discharge Instructions Diet Discharge Diet: Low fat / Low cholesterol and 2000 mg Sodium Diet Activity Discharge Activity: Return to Normal Activity Weight Bearing Status: Weight bearing as tolerated Dressing / Incision Call your doctor if you observe: Fever of 101 or Higher, Coldness, Increased Pain, Numbness or Tingling, Change in Color, Inability to urinate, Inability to have a bowel movement, Shortness of breath, Dizziness, Fainting spells, Swelling in the ankles, Chest pain, Prolonged hiccupping, Increased palpitations (irregular heartbeat) and Calf discomfort Follow Up Care When: IN 2 WEEKS Test Results: Test results from this visit will be discussed in further detail at your follow- up appointment, if applicable. Discharge Plan Admission Admit Date/Time: 01/25/24 13:15 Primary Reason for Your Visit: Acute stroke ruled out. Attending Provider: Joshua Romo Primary Care Provider: Tommy Markham Consulting Providers: Arnol Chandra; Edwina Silverman; Marisabel Alejandre; Chaz Crum; Josh Esparza; ANA STEPHENS; Lynn Prather; Alondra Mcdaniel; Gallo Johnson; Casandra Man; Wali Roque; Juliana Pickard; Yoly Barbosa; Pb Thorne; Vivienne Luz; Lj Puente; Jude James; Brown Chadwick; Cody Hart; Alfred Tse; Andrey Mac; Colleen Durán; Arturo Seay; Lashae Montalvo; Patito Alfaro; Elizabeth Montalvo Instructions Additional Instructions / Restrictions: Recommend outpatient Neurologist follow-up for dementia workup. Follow-up with PCP/neurologist for B12 and TSH level ordered as dementia workup per neurologist recommendation. Patient does not have burning micturition but has chronic BPH therefore UA not ordered. Discharge Orders/Prescriptions Prescriptions: Continued insulin lispro [Humalog KwikPen Insulin] 100 UNIT/ML insulin pen 22 unit subcut TID insulin glargine [Lantus Solostar U-100 Insulin] 100 UNITS/ML insulin pen 50 units subcut QHS Trelegy Ellipta 100-62.5-25 mcg blister with device 1 inh INHALATION DAILY venlafaxine 150 mg capsule,extended release 24hr 150 mg PO DAILY atorvastatin 80 mg Tablet 80 mg PO QHS Qty: 30 2RF aspirin 81 MG tablet,chewable 81 mg PO DAILY finasteride 5 mg tablet 5 mg PO DAILY ondansetron HCl 8 mg tablet 8 mg PO Q8H PRN (Reason: nausea and vomiting) Qty: 20 0RF tamsulosin 0.4 mg Capsule 0.4 mg PO BID lactulose 10 gram/15 mL (15 mL) solution 10 g PO DAILY PRN (Reason: constipation) Referrals / Follow Up: Felton Islas MD [Non-Staff -Ordering Privileges] - Within 1 Month Tommy Markham MD [Primary Care Provider] - Disposition Disposition (needs filled in before D/C Order can be placed): Home, Self Care
--- NOTE | 2024-01-26 15:05 | DS.PCM_ITS ---
Providers Date of Admission: 01/25/24 Date of Discharge: 01/26/24 Primary Care Physician: Dr. Tommy Markham MD Consultations 01/25/24 14:47 Consult: Tele-Neurology Routine Consulting Provider: [facility] Reason for Consult: Acute Ischemic Stroke/TIA EMERGENT Consult: No MD Notified: Yes Date Notified: 01/25/24 Time Notified: 13:00 Method of Notification: Answering Service Nursing Unit Staff Notify [facility] of Tele-Neurology Consult: Yes Reason For Visit: ALTERED MENTAL STATUS, TIA Diagnosis Discharge Diagnosis (1) Confusion: Status: Acute Code(s): R41.0 - Disorientation, unspecified (2) Altered mental status: Status: Acute Code(s): R41.82 - Altered mental status, unspecified Plan 68-year-old gentleman was last known well between 09 19- and was reportedly staring and confused. As per , last week on January 18 he could not move his left arm for 40 minutes and was confused. The patient was admitted to PCU for altered mental status/confusion with suspicion of a stroke. 1. Acute confusion/altered mental status related to acute encephalopathy exact etiology unclear possible metabolic encephalopathy: Patient was admitted in PCU. Well-hydrated. His acute encephalopathy has resolved. Patient answering questions good. As per when he walks in gym for more time he gets tired and sometimes stares around or looks confused. MRI brain was negative for acute stroke but shows chronic severe small vessel disease and atrophy without eviden ce of acute infarct but a small old bilateral lacunar infarcts and chronic ischemic changes within rico and cerebellar hemispheres. CTA does not show hemodynamically significant stenosis or LVO. Chest x-ray negative for acute cardiopulmonary disease. Patient already on baby aspirin 81 mg daily and atorvastatin 80 mg daily with LDL goal less than 70 and A1c less than 7 %. Fasting profile shows LDL 43, HDL 40. Magnesium 2.2. Phosphorus 4.0. A1c 7.2% therefore glucose is reasonably well-controlled BP goal 120/80 or less than 130/80. Patient has follow-up with neurologist Dr. Lazarus Howell in 1 month. Advised to keep follow-up. Need evaluation for possible dementia. 2. 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 Diabetes mellitus type 2: Patient on Lantus and prandial insulin at home. A1c 7.2%. Home dose continued 4. Hypertension and dyslipidemia: On atorvastatin already mentioned detailed above. 5. Gastroparesis and history of dysphagia, GERD chronic issues. 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 Not on PPI. 6. Other chronic comorbidities include BPH with bladder outlet obstruction, on Flomax. Patient has chronic urinary incontinence 7. History of COPD: On inhalers. Not in exacerbation. 8. Depression -Continue home venlafaxine 9. CALLI -Continue home CPAP 10. DVT prophylaxis -Lovenox subcu 40 mg daily CODE STATUS -DNR CCA okay for short-term intubation as verified with patient on presentation Discharge medication reconciliation done. Discharge follow-up instructions completed. Discharge process discussed with the patient and all questions were answered to patient's satisfaction. Follow with PCP in 1 to 2 weeks Total time spent, exact 35 minutes on discharge meds reconciliation, examination, coordination of care with nurses and ancillary staff, review of imaging and blood test and discussion with the patient on follow-up instructions. Laboratory Results 01/25/24 17:05: POC Glucose 155 H 01/25/24 21:04: POC Glucose 266 H 01/26/24 06:02: WBC 8.1, RBC 5.43, Hgb 14.7, Hct 45.2, MCV 83.2, MCH 27.1, MCHC 32.5, RDW Std Deviation 47.3 H, RDW Coeff of Shoshana 15.7 H, Plt Count 255, MPV 12.6 H, Immature Gran % (Auto) 0.200, Neut % (Auto) 65.2, Lymph % (Auto) 18.2 L, Bowman % (Auto) 8.4, Eos % (Auto) 7.1 H, Baso % (Auto) 0.9, Absolute Neuts (auto) 5.3, Absolute Lymphs (auto) 1.48, Nucleated RBC % 0, Sodium 140, Potassium 3.6, C hloride 105, Carbon Dioxide 25.0, Anion Gap 10, BUN 14, Creatinine 0.97, Estim Creat Clear Calc 81.23, Est GFR (MDRD) Af Amer 99, Est GFR (MDRD) Non-Af 82, BUN/Creatinine Ratio 14.5, Glucose 107 H, Hemoglobin A1c 7.2 H, Calcium 8.6, Phosphorus 4.0, Magnesium 2.2, Triglycerides 86, Cholesterol 100, LDL Cholesterol 43, VLDL Cholesterol 17, HDL Cholesterol 40 01/26/24 08:06: POC Glucose 134 H 01/26/24 12:14: POC Glucose 245 H Clinical Impression(s) from Imaging Studies Head/Neck CTA 01/25/24 11:58 IMPRESSION: Atherosclerosis with no hemodynamically significant stenosis. Brain CT 01/25/24 12:00 IMPRESSION: Stable examination demonstrating small vessel ischemia and bilateral basal ganglia and left thalamic lacunar infarcts. Chest X-Ray 01/25/24 13:05 IMPRESSION: No radiographic evidence of acute cardiopulmonary disease. Electronically Signed: Patti Nguyen MD at 13:17 EST , Brain MRI 01/25/24 13:25 IMPRESSION: Atrophy and advanced periventricular white matter ischemic changes without evidence for acute infarct. Small old bilateral lacunar infarcts and chronic ischemic changes within the rico and cerebellar hemispheres Medications at Discharge Home Medications insulin glargine 100 unit/mL (3 mL) subcutaneous pen (Lantus Solostar U-100 Insulin) 50 units subcut QHS DABETES 02/27/15 insulin lispro 100 unit/mL subcutaneous pen (Humalog KwikPen (U-100) Insulin) 22 unit subcut TID DIABETES 02/27/15 fluticasone fur. 100 mcg-umeclid 62.5 mcg-vilant 25 mcg inhalat.powder (Trelegy Ellipta) 1 inh inhalation DAILY SHORTNESS OF BREATH/WHEEZING 09/05/23 venlafaxine 150 mg capsule,extended release 24 hr 150 mg PO DAILY DEPRESSION 09/05/23 atorvastatin 80 mg tablet 80 mg PO QHS CHOLESTEROL #30 tabs 09/07/23 aspirin 81 mg chewable tablet 81 mg PO DAILY HEART HEALTH 11/02/23 finasteride 5 mg tablet 5 mg PO DAILY 01/05/24 ondansetron HCl 8 mg tablet 8 mg PO Q8H PRN nausea and vomiting #20 tabs 01/07/24 lactulose 10 gram/15 mL (15 mL) oral solution 10 g PO DAILY PRN constipation 01/25/24 tamsulosin 0.4 mg capsule 0.4 mg PO BID 01/25/24 Physical Exam Narrative Seen and examined. Patient back to baseline. Does not look confused, disoriented or problem in his speech. General: Alert, Oriented x3, Cooperative HEENT: Atraumatic, PERRLA, EOMI, Normocephalic Oral: No Gingival or Mucosal Lesions/ Ulcerations Neck: Supple, No JVD, Negative Carotid Bruits Chest wall/Lungs: Air entry diminished in bilateral lung bases. No crepitation/rhonchi Cardiovascular: Sinus rhythm regular rate, Regular Rhythm, Normal S1, Normal S2, No M/G/R Abdomen: Bowel Sounds Present, Soft, Non Tender, Non-Distended : No dysuria. No renal angle tenderness. No suprapubic tenderness. Extremities: No edema, Capillary Refill Less than 3 Seconds Skin: No rashes, No breakdown Musculoskeletal: No Tenderness to Palpation of Joints or Extremities Neurological: Cranial nerves II-XII grossly intact, DTR 2+/4. Language normal. No dysarthria or dysphagia. Muscle strength 5/5 at major joints. No change in sensory. NIH stroke scale 0. GCS 15. Psych/Mental Status: Flat affect. Weight / BMI Weight Weight: 209 lb 12.8 oz Body Mass Index (BMI) 27.6 ABG / Lab / Microbiology Data 01/26/24 06:02 01/26/24 06:02 Laboratory: Laboratory Results - last 24 hr 01/25/24 17:05: POC Glucose 155 H 01/25/24 21:04: POC Glucose 266 H 01/26/24 06:02: WBC 8.1, RBC 5.43, Hgb 14.7, Hct 45.2, MCV 83.2, MCH 27.1, MCHC 32.5, RDW Std Deviation 47.3 H, RDW Coeff of Shoshana 15.7 H, Plt Count 255, MPV 12.6 H, Immature Gran % (Auto) 0.200, Neut % (Auto) 65.2, Lymph % (Auto) 18.2 L, Bowman % (Auto) 8.4, Eos % (Auto) 7.1 H, Baso % (Auto) 0.9, Absolute Neuts (auto) 5.3, Absolute Lymphs (auto) 1.48, Nucleated RBC % 0, Sodium 140, Potassium 3.6, Chloride 105, Carbon Dioxide 25.0, Anion Gap 10, BUN 14, Creatinine 0.97, Estim Creat Clear Calc 81.23, Est GFR (MDRD) Af Amer 99, Est GFR (MDRD) Non-Af 82, BUN/Creatinine Ratio 14.5, Glucose 107 H, Hemoglobin A1c 7.2 H, Calcium 8.6, Phosphorus 4.0, Magnesium 2.2, Triglycerides 86, Cholesterol 100, LDL Cholesterol 43, VLDL Cholesterol 17, HDL Cholesterol 40 01/26/24 08:06: POC Glucose 134 H 01/26/24 12:14: POC Glucose 245 H Radiography Diagnostic Testing: Radiology Impression Brain MRI 01/25/24 13:25 IMPRESSION: Atrophy and advanced periventricular white matter ischemic changes without evidence for acute infarct. Small old bilateral lacunar infarcts and chronic ischemic changes within the rico and cerebellar hemispheres Electronically Signed: Wilman Queen MD at 17:07 EST Reading Location ID and State: [address] [place] [address] Tel , Service support , D/C Instructions Discharge Diet: Low fat / Low cholesterol and 2000 mg Sodium Diet Weight Bearing Status: Weight bearing as tolerated Call your doctor if you observe: Fever of 101 or Higher, Coldness, Increased Pain, Numbness or Tingling, Change in Color, Inability to urinate, Inability to have a bowel movement, Shortness of breath, Dizziness, Fainting spells, Swelling in the ankles, Chest pain, Prolonged hiccupping, Increased palpitations (irregular heartbeat) and Calf discomfort When: IN 2 WEEKS Meaningful Use Info Meaningful Use Diagnoses (Choose all that apply): None applicable Discharge Plan Admission Admit Date/Time: 01/25/24 13:15 Primary Reason for Your Visit: Acute stroke ruled out. Attending Provider: Joshua Romo Primary Care Provider: Tommy Markham Consulting Providers: Arnol Chandra; Edwina Silverman; Marisabel Alejandre; Chaz Crum; Josh Esparza; ANA STEPHENS; Lynn Prather; Alondra Mcdaniel; Gallo Johnson; Casandra Man; Wali Roque; Juliana Pickard; Yoly Barbosa; Pb Thorne; Vivienne Luz; Lj Puente; Jude James; Brown Chadwick; Cody Hart; Alfred Tse; Andrey Mac; Colleen Durán; Arturo Seay; Lashae Montalvo; Patito Alfaro; Elizabeth Montalvo Instructions Additional Instructions / Restrictions: Recommend outpatient Neurologist follow-up for dementia workup. Follow-up with PCP/neurologist for B12 and TSH level ordered as dementia workup per neurologist recommendation. Patient does not have burning micturition but has chronic BPH therefore UA not ordered. Discharge Orders/Prescriptions Prescriptions: Continued insulin lispro [Humalog KwikPen Insulin] 100 UNIT/ML insulin pen 22 unit subcut TID insulin glargine [Lantus Solostar U-100 Insulin] 100 UNITS/ML insulin pen 50 units subcut QHS Trelegy Ellipta 100-62.5-25 mcg blister with device 1 inh INHALATION DAILY venlafaxine 150 mg capsule,extended release 24hr 150 mg PO DAILY atorvastatin 80 mg Tablet 80 mg PO QHS Qty: 30 2RF aspirin 81 MG tablet,chewable 81 mg PO DAILY finasteride 5 mg tablet 5 mg PO DAILY ondansetron HCl 8 mg tablet 8 mg PO Q8H PRN (Reason: nausea and vomiting) Qty: 20 0RF tamsulosin 0.4 mg Capsule 0.4 mg PO BID lactulose 10 gram/15 mL (15 mL) solution 10 g PO DAILY PRN (Reason: constipation) Referrals / Follow Up: Felton Islas MD [Non-Staff -Ordering Privileges] - Within 1 Month Tommy Markham MD [Primary Care Provider] - Conner Banks DO [Med Staff - Active Staff] - Within 1 Month (Outpatient sleep study and PFT. History of COPD) Disposition Disposition (needs filled in before D/C Order can be placed): Home, Self Care Charges/Coding Visit Charges Inpatient E&M: 68861 Disch Hosp >30min
--- NOTE | 2024-01-26 15:08 | CASEMGMT ---
Patient has order for discharge. Therapy recommending outpatient PT/OT/ST, script received. RN CM in to discuss discharge needs with patient and . Patient and agreeable to outpatient therapy. prefers to schedule appt herself. Script and [facility] information provided to . Patient and deny further needs or help at discharge. Patient and had no further questions or concerns.
[2024-01-26 15:25] VITALS: BP 152/73; PULSE 88; RESP 18; TEMP 36.2; O2SAT 95
[2024-01-26 15:55] LABS: Thyroid Stim Hormone (TSH) 2.84 uIU/mL (0.358-3.74)
--- NOTE | 2024-01-26 15:58 | CASEMGMT ---
Met with patient and his to complete ANDERSON form. ANDERSON form explained to both who voiced understanding and signed form. Original form placed in pt?s chart and copy provided to?patient. Nuria Parrish, Discharge Planning Asst
[2024-01-26 17:40] LABS: Vitamin B12 735 pg/mL (211-911)
== END 2024-01-26 17:17 | disposition home or self-care (01) ==
LOC: ED 12:14 → PCU 13:32
PROVIDERS: Admitting Provider Internal Medicine; Emergency Provider Student in an Organized Health Care Education/Training Program; PCP Family Medicine; Visit Provider Internal Medicine
DX: R41.82 Altered mental status, unspecified (principal); J44.9 Chronic obstructive pulmonary disease, unspecified; E11.43 Type 2 diabetes mellitus with diabetic autonomic (poly)neuropathy; Z79.4 Long term (current) use of insulin; E78.5 Hyperlipidemia, unspecified; Z79.51 Long term (current) use of inhaled steroids; E87.20 Acidosis, unspecified; I69.391 Dysphagia following cerebral infarction; F17.210 Nicotine dependence, cigarettes, uncomplicated; Z79.82 Long term (current) use of aspirin; R41.0 Disorientation, unspecified; G47.33 Obstructive sleep apnea (adult) (pediatric); K21.9 Gastro-esophageal reflux disease without esophagitis; Z79.899 Other long term (current) drug therapy; K31.84 Gastroparesis; N40.1 Benign prostatic hyperplasia with lower urinary tract symptoms; N13.8 Other obstructive and reflux uropathy; R94.31 Abnormal electrocardiogram [ECG] [EKG]; I49.3 Ventricular premature depolarization; R53.1 Weakness; R47.81 Slurred speech
CPT/HCPCS: 36415; 70450; 70496; 70498; 70551; 71045; 80048; 80061; 82140; 82607; 82962; 83036; 83735; 84100; 84443; 84484; 85025; 85610; 85730; 92610; 93005; 94640; 94668; 94762; 95819; 96372; 97162; 97166; 99221; 99252; 99285; Q9967; A4216; G0378; G0463

== ENCOUNTER 2024-01-31 12:00 | Outpatient (RCR) | payer MEDICARE, OTHER, SELFPAY ==
--- NOTE | 2023-10-20 17:26 | HP.PTEVAL_ITS ---
Patient's Visit Information Visit Information Visit Information: OLGA RODRIGUEZ is a 68 year old M referred to Physical Therapy by Dr. Tommy Markham MD with a diagnosis of Stroke with deficits.. Date of Evaluation: 10/20/23 Physical Therapist: Ra Reddy, DPT, OCS, CSCS Visit Plan Frequency: 3x /Week Duration: 4-6 Weeks Plan: 3x/week for 4 weeks for 1. LE strength gym and bars for home and [employer] 2. L LE motor control adn strength, funcitonal activities steps and trasnfers. 3. Gait and balance trainingRecommended wh walker for patient which they will contact doctor office for prescription and ensure proper use and we can train in therpay with LRD as safety allows. Subjective Subjective: i NEED REHAB. I had a stroke September 07. does much of talking. Was slurring in August and drooling. MRI and found a stroke. L side is weak in arm and leg. Balance feels off as he drags L leg at times. Did not need cane prior to stroke, Uses it now sometimes. Used one in the hospital. Hard time getting around. Retired. Has DM with slight neuropathy Sleeping well. Live with and 2 cats in one story with one step to get in. Can do that by himself. Spends day reading and watching TV. Hobbies: none active. used to exercise at [employer] 2-3days per week until stroke. Did treadmill and LE exercises. One fall since stroke at home was not using cane. 2x falling back into chair. Objective Objective: Walks with cane in L hand back to PT SBA with two LOB one catching L toe adn one LOB into wall. Given wh walker and does much better with R step length adn speed adn safety with wh walker. Trasnfers slow with UE chair. Up and down one step preferring L with rails SBA. Max tightness HS and gastroc B. AROM LE slow but WFL, HS tightness limits knee ext in sitting. Good sitting balance and weight shift sitting. Poor weight shift in standing. reflexes 2/3 patella adn achilles B Sensation LE WNL to gross lgiht touch B. coordination to reciprocal toe tap is at deficit L vs R. Motor contral in L UE and LE seems slightly at deficit. UE AROM WFL, strength symmetrical in UE. L Le hip strength 3+ R adn 4- L, knee 3 R and 4- L ankles 4- L and 4 R. Balance/Special Test Scores Functional Gait Assessment Score: 14 % Disability: 53.3400 Lower Extremity Functional Score: 23 Goals Goal 1:: FGA to reduce fall risk Goal Time Frame: 4-6 Weeks Goal 2:: Walk into and out of PT safely with LRD I Goal Time Frame: 4-6 Weeks Goal 3:: Pt and feel 80% back to normal gait and safety Goal Time Frame: 4-6 Weeks Goal 4:: Ready to return to I gym workout [employer]. Goal Time Frame: 4-6 Weeks Rehabilitation Potential Physical Therapy Diagnosis: L weakness and motor cntrol leading to balance deficits Rehabilitation Potential: Fair Anticipated Interventions Patient/Client Instruction: Educate patient on: Condition and Plan of Care For the Purpose of:: To improve nutrient delivery to tissue, To increase tolerance to activity/condition/position, To improve performance and independence with ADL's, To improve ability of physical actions for home/community/work/leisure and To improve gait and locomotor functions Therapeutic Exercise to Include: Strength training, Postural training, Flexibilty training and Gait and locomotor training For the Purpose of:: To improve nutrient delivery to tissue, To improve muscle performance and motor function, To increase tolerance to activity/condition/position, To improve ability of physical actions for home/community/work/leisure and To improve gait and locomotor functions Assistive Devices: Wheeled walker For the Purpose of:: To improve safety with gait Text: Thank you for the opportunity to evaluate your patient. For Medicare and Medicare HMO plans, please review the plan of care and approve it. It will need to be FAXED BACK to us at [phone] for Medicare purposes. For Medicare only, by signing this I certify the plan of care. Please let me know if there are questions or concerns regarding this plan of care. Physician Signature: Date:
--- NOTE | 2023-10-25 15:17 | HP.SP.EVAL ---
History History Date of Eval: 10/25/23 Attending Doctor: Reason for Referral: HISTORY OF STROKE. Date of Onset of Diagnosis: September [id number] Previous speech therapy: Yes Other Relevant Medical History/Diagnoses/Surgery: CVA 8-9 years ago, Medications related to this diagnosis: insulin glargine 100 unit/mL (3 mL) subcutaneous pen (Lantus Solostar U-100 Insulin) 50 units subcut QHS diabetes 02/27/15 insulin lispro 100 unit/mL subcutaneous pen (Humalog KwikPen (U-100) Insulin) 17 units subcut TID diabetes 02/27/15 aspirin 81 mg chewable tablet 81 mg PO DAILY@0800 heart health ##0 03/14/15 dulaglutide 3 mg/0.5 mL subcutaneous pen injector (Trulicity) 3 mg subcut .weekly diabetes 09/05/23 fluticasone fur. 100 mcg-umeclid 62.5 mcg-vilant 25 mcg inhalat.powder (Trelegy Ellipta) 1 inh inhalation Q24H breathing 09/05/23 omeprazole 20 mg capsule,delayed release 20 mg PO DAILY reflux 09/05/23 tamsulosin 0.4 mg capsule 0.4 mg PO BID prostate 09/05/23 venlafaxine 150 mg capsule,extended release 24 hr 150 mg PO DAILY mental health 09/05/23 atorvastatin 80 mg tablet 80 mg PO QHS #30 tabs 09/07/23 Smoking Status: Former smoker Hx Smoking: Yes Hx Smoking Cessation Date: 08/31/23 Hx Tobacco Use: No Hx Smoking Exposure: No Pain Is pain an issue with your current prescribed condition?: No Personal Preferred language: [place] Patient Allergies Allergies Allergies: Allergies Penicillins Allergy (Intermediate, Verified 09/26/23 12:54) Hives Subjective Dysphagia Symptoms Reported Symptoms/Problems with: Coughing and Difficulty Swallowing Solids Current Diet Solids Current Diet: Regular Current Diet Liquids Current Liquids: Thin Objective Dysphagia Administered by Administered by: Self Thin Liquids Administred via: Cup Bolus clearance: fully cleared Gagging: No Cough: none observed/unable to assess Pureed Oral Preparation: WNL Bolus clearance: significant clearance/minimal residue Gagging: No Cough: none observed/unable to assess Patient Report: No complaints. Regular Oral Preparation: lip or tongue seal bolus escape Oral Transit: Delay > 5 seconds Bolus clearance: significant clearance/minimal residue Comments: He is unable to lateralize tongue to back left quadrant. With missing molars on bottom right he chewed on left as well. Noted he had pocketing in this back left area. He reported that he did a finger sweep prior to attending this appointment to clear left side from lunch food. After he took all oral intake during evaluation he removed an inch long piece of cheese from back left space from lunch ( at least 1 hour prior). He reports difficulty with meats and breads. Swallowing Impairment Contributing Factors to Swallowing Impairment: Mastication Inefficiency Impact Impact on Safety & Functioning: Risk for Inadequate Nutrition/Hydration Comments: He reported that he is having less oral intake due to difficulty with dysphagia. Recommendations Swallowing Treatment: Yes Diet Texture Recommendations Solids: Easy to Chew (Level 7) Liquids: Thin (Level 0) Capps free water Protocol: No Safety Saftey Precautions/Swallowing Recommendations (Check all that Apply): Upright Position at Least 30 Minutes After Meals, Multiple Swallows, Alternate Liquids & Solids and Other (Specify Below) Other: Finger sweep to clear back left area. Results Swallowing Within Normal Limits: No Swallowing Diagnosis: Oral Phase Dysphagia (R13.11) Severity: Moderate Objective Oral Motor Oral Status Dentition: Missing Teeth Labial Observation at Rest: Left Droop Closure: WNL Pucker: WNL Retraction: WNL Alternating Pucker/Retraction: WNL Involuntary Movement noted: No Lingual Impairment: WNL Protrusion: WNL Lateralization: Moderate Involuntary Movement: No Lingual Comments Comments: Patient unable to lateralize to back left quadrant. Jaw Impairment: WNL Respiratory Status Respiratory Status: Room Air Swallowing Performance Scale Swallowing Performance Scale Swallowing Performance Scale Result: 4 Mild to Moderate Reference: Neuro-QoL instrument Radiation Oncology Patient Plan Plan Plan: Patient presents with mild to moderate oral phase dysphagia. Plan to evaluation for cognitive skills as and patient requested to focus on dysphagia at evaluation. Recommendations Treatment Warranted: Yes Treatment Warranted: Dysphagia and Cognition Progress Prognosis: Good Frequency Frequency: 2x /Week Duration: 4 Weeks Visits in this POC: 8 Goals that are Established Determination:: Goals will be added/modified as deemed necessary and appropriate. Therapy will be discontinued when results of re-evaluation indicate therapy is no longer needed or lack of progress has been documented. Goal #1-5 Goal #1: Patient will complete oral motor exercises independently to increase range of motion and ability to clear oral cavity. Goal #2: Patient will use compensatory strategies independently to reduce pocketing and risk for aspiration of food left. Goal #3: Diet analysis for oral intake with complete meal to determine oral abilities with patient reported difficult foods. Goal #4: Cognitive evaluation. Education Patient has Indicated that the Following Identified Educational Needs: None The Patient has indicated that they have no educational or learning abilities that may effect their care.: Yes Patient Instruction Patient Education: Diagnosis, Treatment Plan, Goals, Safety Precautions and Diet Level Person Taught: Patient and Family Teaching Method: Discussion Response to teaching: Verbalize understanding
--- NOTE | 2023-11-11 13:57 | HP.PTREVAL_ITS ---
Re-Evaluation Intro: Dr. Tommy Markham MD, It has been my pleasure to treat OLGA RODRIGUEZ over the last 8 visits for Stroke with deficits.. Please see the progress note below for an update on the physical therapy plan of care! Subjective Subjective: Had UTI and was in hospital for a while, had stent bile duct. Been home almost a week. It made him weak. Still about same as at beginning due to that set back according to but thinks exercise would have helped if not interrupted. Feels tired. Fell due to weakness from UTI. No problem sleeping. Doing sink exercises at home. Rides bike for 3 minutes. Objective Objective/Function: Walks into and out of PT with wh walker safely, short steps. FGA taken without AD today and much improved. Still hesitant to shift weight but able. Much more mobile and appropriate to cotninue toward unmet goals due to set back with hospital stay. Fair prognosis Plan Plan Plan: 3x/week for 4 weeks 1. more mobility, weight shift, balance exercise and gait...then get out to gym to get I with gym program when able and then to [employer]. Balance/Gait/Functional tests Balance/Special Test Scores Functional Gait Assessment Score: 20 % Disability: 33.3400 Lower Extremity Functional Score: 19 Goals Goals Goal 1:: FGA to reduce fall risk Goal Time Frame: 4-6 Weeks Goal Progress: Progressing Goal 2:: Walk into and out of PT safely with LRD I Goal Time Frame: 4-6 Weeks Goal Progress: Goal Met Goal 3:: Pt and feel 80% back to normal gait and safety Goal Time Frame: 4-6 Weeks Goal Progress: Progressing, approp Goal 4:: Ready to return to I gym workout [employer]. Goal Time Frame: 4-6 Weeks Anticipated Interventions Anticipated Interventions Patient/Client Instruction: Educate patient on: Condition and Plan of Care For the Purpose of:: To improve nutrient delivery to tissue, To increase tolerance to activity/condition/position, To improve performance and independence with ADL's, To improve ability of physical actions for ho me/community/work/leisure and To improve gait and locomotor functions Therapeutic Exercise to Include: Strength training, Postural training, Flexibilty training and Gait and locomotor training For the Purpose of:: To improve nutrient delivery to tissue, To improve muscle performance and motor function, To increase tolerance to activity/condition/posi tion, To improve ability of physical actions for home/community/work/leisure and To improve gait and locomotor functions Assistive Devices: Wheeled walker For the Purpose of:: To improve safety with gait Re-Evaluation Ending Re-evaluation ending: Please do not hesitate to contact me at [phone] by phone or if you have questions or concerns regarding this new plan of care! Sincerely, Ra Reddy, HELENAT, OCS, CSCS
--- NOTE | 2023-12-16 14:04 | HP.PTREVAL ---
Re-Evaluation Intro: Dr. Tommy Markham MD, It has been my pleasure to treat OLGA RODRIGUEZ over the last 20 visits for Stroke with deficits.. Please see the progress note below for an update on the physical therapy plan of care! Subjective Subjective: Got sick earlier in the week with vomitting possibly from procedure lat week and was weak earlier in the week. Going the right way otherwise. Walking better. Tired with HEP. Tired after 25 minutes of treatment. Stamina is still low. Sleeps well. Objective Objective/Function: FGA improved by 4 points, No AD needed today but still avoids forefoot pushoff cutting stride length short. Also pulls up on rails for steps due to avoiding FW weight shift. Also has the strength to get out of chair without UE but does not FW weight shift far enough. Improvement noted and felt. Plan Plan Plan: 2x/week for 4 weeks for: 1. Add to gym exercises with list as patient will do them I 3x/week on his own. Get him on a full body gym program over the next month. 2. Wrok on funcitonal FW weight shift with exit chair, steps and gait getting weight throughforefoot with pregait and balance exeercises to HEP. New goals and 4 week POC appropriate with fair prognosis Balance/Gait/Functional tests Balance/Special Test Scores Functional Gait Assessment Score: 24 % Disability: 20.0000 Lower Extremity Functional Score: 24 Goals Goals Goal 1:: FGA to reduce fall risk Goal Time Frame: 4-6 Weeks Goal Progress: Goal Met Goal 2:: Walk into and out of PT safely with LRD I Goal Time Frame: 4-6 Weeks Goal Progress: Goal Met Goal 3:: Pt and feel 80% back to normal gait and safety Goal Time Frame: 4-6 Weeks Goal Progress: 15% Goal 4:: Ready to return to I gym workout [employer]. Goal Time Frame: 4-6 Weeks Goal Progress: part, appropiate Goal 5:: Exit chair without UE I, steps with one rail reciprocally. Goal Time Frame: 4-6 Weeks Goal Progress: NEW GOAL Goal 6:: Walk with push off and hip extension on plant foot without VC Goal Time Frame: 4-6 Weeks Goal Progress: NEW GOAL Anticipated Interventions Anticipated Interventions Patient/Client Instruction: Educate patient on: Condition and Plan of Care For the Purpose of:: To improve nutrient delivery to tissue, To increase tolerance to activity/condition/position, To improve performance and independence with ADL's, To improve ability of physical actions for home/community/work/leisure and To improve gait and locomotor functions Therapeutic Exercise to Include: Strength training, Postural training, Flexibilty training and Gait and locomotor training For the Purpose of:: To improve nutrient delivery to tissue, To improve muscle performance and motor function, To increase tolerance to activity/condition/position, To improve ability of physical actions for home/community/work/leisure and To improve gait and locomotor functions Assistive Devices: Wheeled walker For the Purpose of:: To improve safety with gait Re-Evaluation Ending Re-evaluation ending: Please do not hesitate to contact me at [phone] by phone or if you have questions or concerns regarding this new plan of care! Sincerely, Ra Reddy, DPT, OCS, CSCS
--- NOTE | 2024-01-09 14:38 | HP.SP.DC ---
ST Discharge Summary Discharged: Discharge: Max Woodson was evaluated on 10/25/23 with therapy recommended for dysphagia. Therapy was recommended twice weekly for 4 weeks. He attended 3 visits following his evaluation. Goals focused on oral motor exercises, compensatory strategies as well as diet analysis. A cognitive evaluation was to be completed but patient discontinued therapy before it was completed. He was educated each session on safer swallow strategies as well as compensatory strategies. He needed maximal cues to use small bites without taking then multiple bites at once. His reported that he is not taking enough calories in and recommended he talk to his physician for a possible referral to dietitian. The patient cancelled all further visits. Please see daily notes for last known abilities. Thank you for allowing me to participate in the care of this patient.
--- NOTE | 2024-01-12 12:07 | HP.PTREVAL_ITS ---
Re-Evaluation Intro: Dr. Tommy Markham MD, It has been my pleasure to treat OLGA RODRIGUEZ over the last 27 visits for Stroke with deficits.. Please see the progress note below for an update on the physical therapy plan of care! Subjective Subjective: Doing full program at [facility]. says he was great last week but staye [facility] due to remove stent adn gall stones, 4 day stay last week. May have to have gall bladder out when returns from vacation. No falls, no AD needed. Going to [place] in 5 days for 10 days. Objective Objective/Function: FGA is worse than a m onth ago as is LEFS. Walks is still ambling with wide NIC making push off very challenging due to excessive lateral weight shift. Needs UE to exit chair due to lack of FW weight shift. Steps: avoids FW weight shift so has to pull with arms, can step up with manual FW weigth shift. Eccentric weakness with step down. Possibly worse due to extended hospital stay last week vs MMI. hard to tell with the timing of the hospital stay. Appropriate, after their vacation, to continue to try and work on new POC to weed this out. goals still appropriate to wrok toward given hospital stay last week, fair prognosis. Plan Plan Plan: 2x/week for 4 weeks after pt vacation to [place] Pt is to do PF workout 3x/week. Please focus in therapy on : 1. FW weigh shift on stairs 2. FW weight shift getting out of chair 3. picking feet up while walking 4. Narrower NIC with ambulation to reduce lat weight shift and ambling. Balance/Gait/Functional tests Balance/Special Test Scores Functional Gait Assessment Score: 21 % Disability: 30.0000 Lower Extremity Functional Score: 16 Goals Goals Goal 1:: FGA to reduce fall risk Goal Time Frame: 4-6 Weeks Goal Progress: Goal Metdigressed, approp Goal 2:: Walk into and out of PT safely with LRD I Goal Time Frame: 4-6 Weeks Goal Progress: Goal Met Goal 3:: Pt and feel 80% back to normal gait and safety Goal Time Frame: 4-6 Weeks Goal Progress: 65%, appropriate Goal 4:: Ready to return to I gym workout [employer]. Goal Time Frame: 4-6 Weeks Goal Progress: part, appropiate Goal 5:: Exit chair without UE I, steps with one rail reciprocally. Goal Time Frame: 4-6 Weeks Goal Progress: NEW GOAL, not yet Goal 6:: Walk with push off and hip extension on plant foot without VC Goal Time Frame: 4-6 Weeks Goal Progress: NEW GOAL, not yet Anticipated Interventions Anticipated Interventions Patient/Client Instruction: Educate patient on: Condition and Plan of Care For the Purpose of:: To improve nutrient delivery to tissue, To increase tolerance to activity/condition/position, To improve performance and independence with ADL's, To improve ability of physical actions for home/community/work/leisure and To improve gait and locomotor functions Therapeutic Exercise to Include: Strength training, Postural training, Flexibilty training and Gait and locomotor training For the Purpose of:: To improve nutrient delivery to tissue, To improve muscle performance and motor function, To increase tolerance to activity/condition/position, To improve ability of physical actions for home/community/work/leisure and To improve gait and locomotor functions Assistive Devices: Wheeled walker For the Purpose of:: To improve safety with gait Re-Evaluation Ending Re-evaluation ending: Please do not hesitate to contact me at [phone] by phone or if you have questions or concerns regarding this new plan of care! Sincerely, Ra Reddy, DPT, OCS, CSCS
--- NOTE | 2024-02-06 09:06 | HP.PT.NRP ---
Patient Information Patient Information: OLGA RODRIGUEZ was seen in my office for initial evaluation on 10/20/23. The following Plan of Care was established for this patient: POC Established Initial Frequency: 3x /Week Initial Duration: 4-6 Weeks Anticipated Interventions Patient/Client Instruction: Educate patient on: Condition and Plan of Care For the Purpose of:: To improve nutrient delivery to tissue, To increase tolerance to activity/condition/position, To improve performance and independence with ADL's, To improve ability of physical actions for home/community/work/leisure and To improve gait and locomotor functions Therapeutic Exercise to Include: Strength training, Postural training, Flexibilty training and Gait and locomotor training For the Purpose of:: To improve nutrient delivery to tissue, To improve muscle performance and motor function, To increase tolerance to activity/condition/position, To improve ability of physical actions for home/community/work/leisure and To improve gait and locomotor functions Assistive Devices: Wheeled walker For the Purpose of:: To improve safety with gait Last Seen Last Seen: This patient was last seen in our office 01/31/24. Pertinent comments regarding their Physical therapy will appear below: Olga was seen for 24 visits of POC but has to cancel the rest of it according to Kary stating that he had multiple surgeries on his insides last week and will not be able to return for a while. When appropriate, they will get a script for strengthening. I will discontinue at this time. At this point I will be discontinuing this patient from physical therapy. I would be happy to see this patient again in the future if found appropriate by the physician. Thank you! Ra Reddy, DPT, OCS, CSCS Balance/Gait/Functional tests Balance/Special Test Scores Functional Gait Assessment Score: 21 % Disability: 30.0000 Lower Extremity Functional Score: 16
== END 2024-01-31 19:00 | disposition home or self-care (01) ==
LOC: PT 12:00
PROVIDERS: PCP Family Medicine; Visit Provider Family Medicine
DX: I69.30 Unspecified sequelae of cerebral infarction (principal)
CPT/HCPCS: 92526; 92610; 97110; 97116; 97162; 97530

== ENCOUNTER 2024-02-01 20:34 | Inpatient (IN) | payer MEDICARE, OTHER, SELFPAY ==
[2024-02-01] VITALS (9 sets, daily range): BP systolic 129–149; BP diastolic 65–77; PULSE 100–115; RESP 20–24; TEMP 36.8–37.2; O2SAT 90–98; BMI 26.9; BMI 26.5
--- NOTE | 2024-02-01 20:36 | EKG12_ITS ---
Test Reason : STROKE Blood Pressure : / mmHG Vent. Rate : 111 BPM Atrial Rate : 111 BPM P-R Int : 156 ms QRS Dur : 072 ms QT Int : 322 ms P-R-T Axes : 054 -25 061 degrees QTc Int : 437 ms Sinus tachycardia Low voltage QRS Borderline ECG Confirmed by Walter Zamorano ([id number]), editor & co founder KHRIS VELEZ ([id number]) on 02/03/2024 2:06:25 PM Referred By: MELIA Confirmed By:Walter Zamorano
--- NOTE | 2024-02-01 20:38 | CT_ITS ---
We are attempting to reach an attending provider to discuss findings. An addendum with communication details will be sent when the communication is complete. STUDY: CT BRAIN WITHOUT CONTRAST REASON FOR EXAM: Male, 68 years old. Neuro deficit, acute, stroke suspected RADIATION DOSAGE (If Supplied By Facility): CTDIvol = ( 44 ) mGy, DLP = ( 880 ) mGycm TECHNIQUE: Transaxial CT imaging of the brain was performed without administration of intravenous contrast material. Individualized dose optimization techniques were used for this CT. COMPARISON: January 25, 2024 FINDINGS: Normal soft tissue structures. Normal calvarium. There is moderate cerebral atrophy with widening of the extra-axial spaces and ventricular dilatation. There are areas of decreased attenuation within the white matter tracts of the supratentorial brain, consistent with microvascular disease changes. Normal basal ganglia and thalami. Normal brainstem. Normal cerebellum. There is no intracranial hemorrhage. There are no findings of an acute ischemic infarction. Normal visualized paranasal sinuses. CT/STROKE Brain/Head without Cont IMPRESSION: Chronic involutional changes of the brain. Stable appearance. Electronically Signed: Ricardo David MD at 20:58 EDT ,
--- NOTE | 2024-02-01 20:39 | ED.VIS.STROK ---
HPI History of Present Illness Chief Complaint: Stroke Alert Informant: patient and EMS Narrative Narrative: Patient is a 68-year-old male with history of thalamic infarct, type 2 diabetes mellitus, cholestatic hepatitis and recent admission for altered mental status thought to be secondary to metabolic encephalopathy. He did have an MRI that showed multiple old bilateral lacunar infarcts and chronic ischemic changes. He is presenting today for concern of strokelike symptoms. Last known well reported to be 1600 by EMS. EMS states when they arrived patient was very confused, having slurred speech had a left facial droop and a right arm drift. They know that he is improved upon transport. It is not clear if he is on any blood thinners. No report of any falls or head trauma. Patient has no other complaints at this time. is now at the bedside who provides further information. As she confirms that he was normal at 4 PM. They got home from [employer] and he was watching TV. He complained of feeling his abdomen is bloated and went to lay down. About 2 hours later he suddenly could not get out of bed and seemed to have stroke symptoms so 911 was called. She notes that the same thing happened about a week ago and has been told that if there is an underlying infection he can worsen stroke symptoms. She notes that the stroke symptoms today are the same as his prior stroke symptoms. In addition she states has not really been drinking much water. He does have a history of choledocholithiasis and biliary duct stenosis requiring ERCP with Dr. Hannon. He has been supposed to follow-up outpatient for cholecystectomy but this has not happened yet. [facility] Medical History Abdominal discomfort Choledocholithiasis Common bile duct dilation COPD (chronic obstructive pulmonary disease) CPAP (continuous positive airway pressure) dependence Diabetes Elevated liver transaminase level Gastroparesis GERD (gastroesophageal reflux disease) History of diabetes mellitus History of multiple cerebrovascular accidents (CVAs) History of stroke Jaundice Non-smoker Sleep apnea Slurred speech Stroke-like symptoms Stroke/cerebrovascular accident Unintentional weight loss of 1-2% body weight within 1 week Home Medications insulin glargine 100 unit/mL (3 mL) subcutaneous pen (Lantus Solostar U-100 Insulin) 53 units subcut QHS DABETES 02/27/15 [History Last Taken 01/24/24] insulin lispro 100 unit/mL subcutaneous pen (Humalog KwikPen (U-100) Insulin) 22 unit subcut TID DIABETES 02/27/15 [History Last Taken 01/25/24] fluticasone fur. 100 mcg-umeclid 62.5 mcg-vilant 25 mcg inhalat.powder (Trelegy Ellipta) 1 inh inhalation DAILY SHORTNESS OF BREATH/WHEEZING 09/05/23 [History Last Taken 01/05/24] venlafaxine 150 mg capsule,extended release 24 hr 150 mg PO DAILY DEPRESSION 09/05/23 [History Last Taken 01/25/24] atorvastatin 80 mg tablet 80 mg PO QHS CHOLESTEROL #30 tabs 09/07/23 [Rx Last Taken 01/24/24] aspirin 81 mg chewable tablet 81 mg PO DAILY HEART HEALTH 11/02/23 [History Last Taken 01/24/24] finasteride 5 mg tablet 5 mg PO DAILY 01/05/24 [History Last Taken 01/25/24] ondansetron HCl 8 mg tablet 8 mg PO Q8H PRN nausea and vomiting #20 tabs 01/07/24 [Rx Last Taken 01/11/24] lactulose 10 gram/15 mL (15 mL) oral solution 10 g PO DAILY PRN constipation 01/25/24 [History Last Taken 01/11/24] tamsulosin 0.4 mg capsule 0.4 mg PO BID 01/25/24 [History Last Taken 01/25/24] Allergy/AdvReac Type Severity Reaction Status Date / Time Penicillins Allergy Intermediate Hives Verified 02/01/24 20:35 Family History Other Alzheimer disease Breast cancer Thyroid cancer Surgical History History of ear surgery Social History household members: spouse housing: house Smoking Status: Current every day smoker tobacco type: cigarettes Tobacco: How many years used: 50 how long ago did patient quit smoking: alcohol intake: never substance use type: does not use ROS ROS ED Constitutional Constitutional ED: Denies chills or fever(s) Eyes Eyes: Denies change in vision ENT ENT ED: Denies sore throat Cardiovascular Cardiovascular: Denies chest pain Respiratory/Chest Respiratory/Chest: Denies cough Gastrointestinal Gastrointestinal: Reports abdominal pain and nausea; Denies diarrhea or melena Musculoskeletal Musculoskeletal: Denies arthralgias or myalgias Integumentary Denies rash Neurologic Neurologic: Reports weakness; Denies headache(s) or paresthesias Hematologic/Lymphatic Hematologic/Lymphatic: Denies easy bleeding or easy bruising EXAM Physical Exam Const Vital Signs: 02/01/24 20:36 02/01/24 20:36 02/01/24 21:12 Temperature 98.3 F 98.3 F Temperature Source Oral Oral Pulse Rate 115 H 115 H Respiratory Rate 20 H 20 H Blood Pressure 149/65 H 149/65 H Blood Pressure Mean 93 93 Pulse Ox 90 90 Oxygen Delivery Method Room Air Room Air Nasal Cannula Oxygen Flow Rate (L/min) 2 02/01/24 21:00 02/01/24 21:30 02/01/24 22:00 Temperature 98.3 F 98.2 F 98.3 F Temperature Source Oral Oral Oral Pulse Rate 111 H 111 H 106 H Respiratory Rate 22 H 24 H 22 H Blood Pressure 142/76 H 139/75 H 140/77 H Blood Pressure Mean 98 96 98 Pulse Ox 97 96 97 Oxygen Delivery Method Nasal Cannula Nasal Cannula Nasal Cannula Oxygen Flow Rate (L/min) 2 2 2 02/01/24 22:04 02/01/24 22:30 02/01/24 23:00 Temperature 98.3 F 98.3 F Temperature Source Oral Oral Pulse Rate 104 H 102 H Respiratory Rate 22 H 23 H 21 H Blood Pressure 143/74 H 131/74 H Blood Pressure Mean 97 93 Pulse Ox 97 98 Oxygen Delivery Method Nasal Cannula Nasal Cannula Oxygen Flow Rate (L/min) 2 2 02/01/24 23:34 02/01/24 23:30 02/02/24 00:00 Temperature 99.0 F 99.0 F 99.0 F Temperature Source Oral Oral Pulse Rate 100 100 97 Respiratory Rate 24 H 24 H 19 H Blood Pressure 129/67 H 129/67 H 136/71 H Blood Pressure Mean 87 87 92 Pulse Ox 97 97 96 Oxygen Delivery Method Nasal Cannula Nasal Cannula Oxygen Flow Rate (L/min) 2 2 Positive well nourished and well developed General Appearance ED: well developed HEENT Reports dry mucous membranes Mouth ED: Yes dry mucous membranes Mouth: dry mucous membranes Eyes PERRL and EOMs intact bilaterally General Eye ED: Yes scleral icterus Neck supple and no JVD Chest Wall inspection of chest normal Resp normal respiratory effort and clear to auscultation bilaterally Cardio Rate: tachycardic Rhythm: regular rhythm GI normal to inspection, nondistended, normoactive bowel sounds and soft to palpation Palpation: tender epigastric; Negative for guarding or rebound tenderness present Extremity normal to inspection Neuro oriented x3 Neuro Narrative: Slurred speech, somnolent Sensorium / Orientation: alert Psych mental status grossly normal Skin no wounds General Skin Exam: jaundice NIHSS NIHSS Initial: 1a Level of Consciousness: 0 1b LOC Questions (Score 2 if aphasic/stupor): 0 1c LOC Commands (Only score 1st attempt): 0 2 Best Gaze (If aphasic, use reflexive mvmts.): 0 3 Visual: 0 4 Facial Palsy: 0 5 Motor Arm Right (UN = amputation/fusion): 0 5 Motor Arm Left: 0 6 Motor Leg Right: 0 6 Motor Leg Left: 0 7 Limb ataxia (Only + if out of proportion): 0 8 Sensory (Aphasia/stupor=0 or 1, coma=2): 0 9 Best Language: 0 10 Dysarthria (mute, coma=2, intubated=UN): 1 11 Extinction and Inattention (only scored if +): 0 Total Score: 1 MDM MDM MDM Narrative Medical decision making narrative: Patient is evaluated initially for strokelike symptoms. The strokelike symptoms seem to be rapidly progressing. He is not a candidate for TNK due to improvement of shock symptoms at this time, non-debilitating symptoms at this time and he is outside the window. Patient does appear quite dehydrated as well. I am concerned that he has some type of underlying encephalopathy or infection that is causing/exacerbating his pre-existing stroke symptoms. This seems to be what happened last week when he was admitted as well. CT of the brain and CTA head and neck reviewed by radiology and discussed directly with radiology did not show any acute process. Does have chronic ischemic changes. Patient has a leukocytosis with a white blood cell count of 13.0 on workup. His coags are normal. His CMP shows an elevation of his total/direct bilirubin, AST, ALT, alkaline phosphatase and lipase. This is above his baseline and uptrending since his recent admissions. In addition his ammonia level is normal so I do not think he has hepatic encephalopathy. Case is discussed with Dr. Hannon for my concern that he has recurrent biliary stricture versus biliary obstruction versus choledocholithiasis. Patient be admitted to the medicine service and Dr. Hannon will be able to see him on consult. Dr. Hannon has previously performed an ERCP for the patient's and also left temporary biliary stent in place. 1 view chest x-ray viewed by myself as well as radiology does not show any acute process. Patient's tachycardia does improve with IV fluids. He is requiring 2 L of oxygen in the ER however he does not have an obvious pneumonia. Patient started on Cipro for concern of a possible biliary infection and he is allergic to penicillins. Right upper quadrant ultrasound is obtained which shows no gallstones, small gallbladder wall polyp but a dilated common bile duct. Again this is concerning for choledocholithiasis. He does not have findings concerning with acute cholecystitis right now. Will be admitted for further workup and evaluation. Patient agreeable with plan of care. Case is discussed with my physician, Dr. Tee. Lab Data Attestation: I reviewed the patient's lab results. Labs: Laboratory Results - last 24 hr 02/01/24 02/01/24 21:00 21:24 WBC 13.0 H RBC 5.13 Hgb 14.2 Hct 43.4 MCV 84.6 MCH 27.7 MCHC 32.7 RDW Std Deviation 48.0 H RDW Coeff of Sh[place] 15.3 H Plt Count 165 MPV 11.6 Immature Gran % (Auto) 0.500 Neut % (Auto) 93.9 H Lymph % (Auto) 1.3 L Jennings % (Auto) 3.8 Eos % (Auto) 0.2 Baso % (Auto) 0.3 Absolute Neuts (auto) 12.3 H Absolute Lymphs (auto) 0.17 L Nucleated RBC % 0 PT 14.3 INR 1.1 APTT 27.0 Sodium 133 L Potassium 3.9 Chloride 101 Carbon Dioxide 24.0 Anion Gap 8 BUN 16 Creatinine 1.19 Estim Creat Clear Calc 66.21 Est GFR (MDRD) Af Amer 78 Est GFR (MDRD) Non-Af 64 BUN/Creatinine Ratio 13.4 Glucose 209 H Calcium 8.6 Total Bilirubin 2.70 H Direct Bilirubin 2.00 H AST 351 H ALT 397 H Alkaline Phosphatase 513 H Ammonia 29.0 Troponin I High Sens 8 Total Protein 6.2 L Albumin 3.0 L Globulin 3.2 Lipase 187 H Radiography Diagnostic Testing: Clinical Impression(s) from Imaging Studies Brain CT 02/01/24 20:38 IMPRESSION: Chronic involutional changes of the brain. Stable appearance. Electronically Signed: Ricardo David MD at 20:58 EDT Reading Location ID and State: [facility] / [place] , Service support , ADDENDUM: 02/01/242117 IMPRESSION: Chronic involutional changes of the brain. Stable appearance. N.B. : The above Results were Read Back by Ricardo David MD to Shanika Beltrán, , and understanding confirmed on 02/01/2024 21:11:08 (ET). Electronically Signed: Ricardo David MD at 20:58 EDT Reading Location ID and State: [address] [place] [address] , Service support , Head/Neck CTA 02/01/24 20:42 IMPRESSION: No aneurysm or large vessel occlusion. Mild narrowing of the left internal carotid artery. N.B. : The above Results were Read Back by Ricardo David MD to Shanika Beltrán,DO, and understanding confirmed on 02/01/2024 21:08:46 (ET). Electronically Signed: Ricardo David MD at 21:09 EDT , ADDENDUM: 02/01/242115 IMPRESSION: No aneurysm or large vessel occlusion. Mild narrowing of the left internal carotid artery. N.B. : The above Results were Read Back by Ricardo David MD to Shanika Beltrán,DO, and understanding confirmed on 02/01/2024 21:08:46 (ET). Electronically Signed: Ricardo David MD at 21:09 EDT , Chest X-Ray 02/01/24 21:10 IMPRESSION: Degenerative changes, as described above. No demonstrated acute cardiopulmonary process. Electronically Signed: Ricardo David MD at 22:35 EDT , Gallbladder Ultrasound 02/01/24 21:48 IMPRESSION: No gallstones. Small gallbladder wall polyp. Dilated common bile duct. Fatty infiltration of the liver. Electronically Signed: Ricardo David MD at 23:24 EDT , Rhythm Strip Rhythm Strip: Sinus Tach Rate: 111 Ectopy: None EKG Initial EKG: Attestation: I personally reviewed and interpreted this EKG as follows: Interpretation: Sinus Tachycardia Comments: Sinus tachycardia rate 111 bpm Left axis deviation Low voltage QRS Normal ST segments Compared to prior EKG on 01/25/2024 patient is not tachycardic Management Discussion w/another healthcare provider: Hospitalist, Property Loss Insurance Claim Adjuster and Radiologist Stroke Documentation Questions Stroke Team Activated: Yes Reviewed Inclusion/Exclusion criteria: Yes Was Patient considered for Endovascular Intervention?: No-CTA negative, determined not to be an endovascular candidate IV Thrombolytic Administered: No Discharge Plan Triage Chief Complaint: Stroke Alert ED Provider: Shanika Beltrán Dx/Rx/DC Orders Clinical Impression: Choledocholithiasis, Tachycardia, Stroke-like symptoms, Altered mental status Primary Care Provider: Tommy Markham Disposition Disposition: Acute Care [facility]
--- NOTE | 2024-02-01 20:42 | CT_ITS ---
STUDY: CTA HEAD AND NECK WITH CONTRAST REASON FOR EXAM: Male, 68 years old. Neuro deficit, acute, stroke suspected RADIATION DOSAGE (If Supplied By Facility): CTDIvol = ( 25.17 ) mGy, DLP = ( 838.50 ) mGycm TECHNIQUE: CT angiography was performed with a multi-detector CT scanner. Data acquisition was obtained from the skull base through the vertex following intravenous administration of IV 100mL Isovue-370. MIP images were reconstructed from the axial data set. Post-processing of the angiographic images was performed, with multiplanar reformation and 3D reconstruction. Individualized dose optimization techniques were used for this CT. COMPARISON: No relevant priors. FINDINGS: Normal bilateral petrous carotid arteries. Normal right cavernous carotid artery with a normal supraclinoid bifurcation. Normal left cavernous carotid artery with a normal supraclinoid bifurcation. Normal right A1 segments of the anterior cerebral artery. Normal left A1 segments of the anterior cerebral artery. Normal intact anterior communicating artery (ACOM). Normal bilateral A2 segments of the anterior cerebral arteries. Normal right M1 and M2 segments of the middle cerebral arteries, with a normal M1 bifurcation. Normal left M1 and M2 segments of the middle cerebral arteries, with a normal M1 bifurcation. Normal right posterior communicating artery (PCOM). There is non-visualization of the left posterior communicating artery (PCOM). There is a small atretic right vertebral artery with a dominant left vertebral artery. Normal basilar artery with a normal basilar bifurcation. The visualized bilateral superior cerebellar (SCA) arteries are normal. Normal bilateral P1, P2 and visualized P3 segments of the posterior cerebral arteries. There is no demonstrated aneurysm of the [place]. There is no demonstrated abnormality of the visualized brain. AORTIC ARCH: There is atherosclerotic calcific plaque formation of the aortic arch and great vessels arising from the aortic arch, without a hemodynamically significant stenosis. There is a normal origin of the brachiocephalic, left common carotid, and left subclavian arteries. Normal origins of the brachiocephalic, left common carotid, and left subclavian arteries. RIGHT CAROTID ARTERIES: Normal right common carotid artery (CCA). There is mild atherosclerotic plaque formation with minimal narrowing of the right carotid bulb. Normal origin of the right internal carotid (ICA) artery without a hemodynamically significant stenosis. Normal visualized cervical portion of the right internal carotid artery. Normal origin of the right external carotid artery (ECA). LEFT CAROTID ARTERIES: Normal left common carotid artery (CCA). There is mild atherosclerotic plaque formation with minimal narrowing of the left carotid bulb. There is mild atherosclerotic plaque formation of the origin of the left internal carotid artery with less than 50% cross sectional diameter stenosis. Normal visualized cervical portion of the left internal carotid artery. Normal origin of the left external carotid artery (ECA). VERTEBRAL ARTERIES: There is enhancement within the bilateral vertebral arteries with a small right vertebral artery, and a dominant left vertebral artery. CT/STROKE CTA Head AND Neck W/Con IMPRESSION: No aneurysm or large vessel occlusion. Mild narrowing of the left internal carotid artery. N.B. : The above Results were Read Back by Ricardo David MD to Shanika Beltrán,, , and understanding confirmed on 02/01/2024 21:08:46 (ET). Electronically Signed: Ricardo David MD at 21:09 EDT ,
--- NOTE | 2024-02-01 21:08 | ED.RN ---
2035 [facility] neuro called.
--- NOTE | 2024-02-01 21:08 | ED.RN ---
Addendum entered by Carly Lee 02/01/24 22:11: DR Pickard WAS ON THE ROBOT AND DID A NIH ON THE PT. Original Note: 2057 Dr Pickard called to do assessment and talk to Dr Beltrán.
--- NOTE | 2024-02-01 21:10 | RAD_ITS ---
STUDY: X-RAY CHEST REASON FOR EXAM: Male, 68 years old. Neuro deficit, acute, stroke suspected TECHNIQUE: AP portable view of the chest. COMPARISON: None. FINDINGS: The lungs are clear and expanded. There is no demonstrated pleural abnormality. Normal size heart. Normal mediastinum and daisy. Normal visualized pulmonary arteries. Normal visualized aortic arch and descending thoracic aorta. There is mild degenerative change of the thoracic spine. Normal visualized ribs, clavicles, and shoulders. There is no demonstrated abnormality of the visualized soft tissue structures of the upper abdomen. RAD/Chest 1 View IMPRESSION: Degenerative changes, as described above. No demonstrated acute cardiopulmonary process. Electronically Signed: Ricardo David MD at 22:35 EDT ,
[2024-02-01] MEDS: 0.9% Normal Saline (1000mL) 1,000 ML 999 ML IV (21:13)
[2024-02-01 21:15] LABS: Absolute Lymphocyte Count 0.17 X10^3/uL (0.83-4.51); Absolute Neutrophil Count 12.3 X10^3/uL (2.0-7.7); Basophil# 0.04 X10^3/uL; Basophil% 0.3 % (0-1); Eosinophil# 0.02 X10^3/uL; Eosinophils% 0.2 % (0-5); Hematocrit 43.4 % (40-54); Hemoglobin 14.2 g/dL (13.0-16.5); Lymphocyte # 0.17 X10^3/ul (0.83-4.51); Lymphocyte % 1.3 % (19-41); Mean Corp Hgb Conc 32.7 g/dL (32-36); Mean Corpuscular Hgb 27.7 pg (27.0-32.0); Mean Corpuscular Volume 84.6 fL (80-94); Mean Platelet Vol. 11.6 fl (6.2-12.0); Monocyte# 0.49 X10^3/uL; Monocyte% 3.8 % (0-10); NRBC Flagged by Analyzer 0 % (0-5); Neutrophil # 12.25 X10^3/uL (2.7-7.7); Neutrophil % 93.9 % (47-70); POSITIVE DIFFERENTIAL YES; Platelet Count 165 K/mm3 (150-450); RBC Distribution Width CV 15.3 % (11.6-14.6); Red Blood Count 5.13 M/mm3 (4.6-6.2)
[2024-02-01 21:32] LABS: Anion Gap 8 (5-15); BUN 16 mg/dL (7-18); BUN/Creat Ratio 13.4 RATIO (10-20); Calcium,Total 8.6 mg/dL (8.5-10.1); Chloride 101 mmol/L (98-107); Creatinine, Serum 1.19 mg/dL (0.70-1.30); EST Glomerular Filtration Rate 64 mL/min (>60); Est Glom Filt Rate - Afr Amer 78 mL/min (>60); Estimated Creatinine Clearance 66.21 ml/min; Glucose 209 mg/dL (74-106); Lipase 187 U/L (13-75); Potassium 3.9 mmol/L (3.5-5.1); Sodium Level 133 mmol/L (136-145); Troponin-I HS 8 pg/mL (3.0-78.0)
[2024-02-01 21:33] LABS: AST(SGOT) 351 U/L (15-37); Alanine Aminotransfer ALT/SGPT 397 U/L (16-61); Alkaline Phosphatase 513 U/L (45-117); Globulin 3.2 g/dL (2.2-4.2); Protein, Total 6.2 g/dL (6.4-8.2)
[2024-02-01 21:42] LABS: International Normalized Ratio 1.1; Prothrombin Time (Protime)PT. 14.3 SECONDS (11.7-14.9)
--- NOTE | 2024-02-01 21:48 | US_ITS ---
STUDY: ABDOMINAL ULTRASOUND - RIGHT UPPER QUADRANT REASON FOR VISIT: Male, 68 years old Concern for obstructing stone, pancreatitis TECHNIQUE: Ultrasound evaluation of the right upper quadrant was performed with real-time and static falcon-scale imaging. TECHNICAL QUALITY: Limited. Examination limited by bowel gas. COMPARISON: CT and MRI January 05, 2024 FINDINGS: Liver: The liver measures 18.7 cm. There is increased echogenicity consistent with fatty infiltration. The bile ducts are within normal limits. There is hepatic color flow. The direction of portal flow is hepatopetal. There is no demonstrated mass lesion. Gallbladder: Normal distended gallbladder. The gallbladder wall measures 3 mm. There is a negative sonographic Hagan''s sign. There is no pericholecystic fluid. There are no gallstones. There is 0.4 cm polyp of the gallbladder wall. Common Bile Duct (C.B.D.): The common bile duct measures 14 mm. Pancreas: There is nonvisualization of the pancreas. There is no demonstrated pancreatic mass or cyst. Right Kidney: Normal size of the right kidney. The right kidney measures 10.6 cm. Normal renal cortex. The right cortex measures 1.2 cm. There is no demonstrated renal mass or cyst. There is no right hydronephrosis. US/Gallbladder IMPRESSION: No gallstones. Small gallbladder wall polyp. Dilated common bile duct. Fatty infiltration of the liver. Electronically Signed: Ricardo David MD at 23:24 EDT ,
[2024-02-01] MEDS: 0.9% Normal Saline (1000mL) 1,000 ML 100 ML IV (23:12)
[2024-02-02] VITALS (16 sets, daily range): BP systolic 118–154; BP diastolic 57–71; PULSE 68–97; RESP 14–20; TEMP 36.1–37.3; O2SAT 92–100; BMI 27.6; BMI 27.7
--- NOTE | 2024-02-02 00:23 | PCM.HP.STD ---
[facility] - General General Date of Admission: 02/02/24 Date of Service: 02/02/24 Chief Complaint: AMS with Slurred Speech, Left Facial Droop and Abdominal Pain. HPI Narrative OLGA WOODSON, is a 68 M with a past medical history of hyperlipidemia, overweight; with BMI 26.5 this admission, CALLI, diabetes mellitus type 2; of unknown control, depression, BPH, osteoarthritis, history of CVA with residual left hemiparesis, recent admission here from January 25, 2024 to January 26, 2024 for treatment of metabolic encephalopathy with MRI positive for old bilateral lacunar infarcts and chronic ischemic changes and history of cholestatic hepatitis; status post ERCP with biliary stent placement and sphincterotomy with stone removal in October 2023 who presents to [facility] ER complaining of altered mental status with slurred speech, left facial droop and abdominal pain. Mr. Woodson is not a reliable historian at this time so information was gathered from chart, medical staff and computer. According to the records patient was at home when he initially complained of abdominal pain and went to lay down and then when his went to wake him up she noted his confusion and worsening of his previous strokelike symptoms causing her to activate EMS. Patient was noted to have improved upon transit and he denied any fever, chills, nausea, vomiting diarrhea, constipation or head trauma. In the ER his right upper quadrant ultrasound revealed common bile duct dilatation with common bile duct measuring 14 mm suspicious for recurrent choledocholithiasis with corresponding laboratory evidence of hyperbilirubinemia with hypertransaminasemia complicated by clinical evidence of metabolic encephalopathy and he was then started on empiric IV antibiotics and admitted to the PCU for ongoing care for status expected to be greater than 48 hours. [facility] Medical History Abdominal discomfort Choledocholithiasis Common bile duct dilation COPD (chronic obstructive pulmonary disease) CPAP (continuous positive airway pressure) dependence Diabetes Elevated liver transaminase level Gastroparesis GERD (gastroesophageal reflux disease) History of diabetes mellitus History of multiple cerebrovascular accidents (CVAs) History of stroke Jaundice Non-smoker Sleep apnea Slurred speech Stroke-like symptoms Stroke/cerebrovascular accident Unintentional weight loss of 1-2% body weight within 1 week Home Medications insulin glargine 100 unit/mL (3 mL) subcutaneous pen (Lantus Solostar U-100 Insulin) 53 units subcut QHS DABETES 02/27/15 [History Last Taken 01/24/24] insulin lispro 100 unit/mL subcutaneous pen (Humalog KwikPen (U-100) Insulin) 22 unit subcut TID DIABETES 02/27/15 [History Last Taken 01/25/24] fluticasone fur. 100 mcg-umeclid 62.5 mcg-vilant 25 mcg inhalat.powder (Trelegy Ellipta) 1 inh inhalation DAILY SHORTNESS OF BREATH/WHEEZING 09/05/23 [History Last Taken 01/05/24] venlafaxine 150 mg capsule,extended release 24 hr 150 mg PO DAILY DEPRESSION 09/05/23 [History Last Taken 01/25/24] atorvastatin 80 mg tablet 80 mg PO QHS CHOLESTEROL #30 tabs 09/07/23 [Rx Last Taken 01/24/24] aspirin 81 mg chewable tablet 81 mg PO DAILY HEART HEALTH 11/02/23 [History Last Taken 01/24/24] finasteride 5 mg tablet 5 mg PO DAILY 01/05/24 [History Last Taken 01/25/24] ondansetron HCl 8 mg tablet 8 mg PO Q8H PRN nausea and vomiting #20 tabs 01/07/24 [Rx Last Taken 01/11/24] lactulose 10 gram/15 mL (15 mL) oral solution 10 g PO DAILY PRN constipation 01/25/24 [History Last Taken 01/11/24] tamsulosin 0.4 mg capsule 0.4 mg PO BID 01/25/24 [History Last Taken 01/25/24] Allergy/AdvReac Type Severity Reaction Status Date / Time Penicillins Allergy Intermediate Hives Verified 02/01/24 20:35 Family History Other Alzheimer disease Breast cancer Thyroid cancer Surgical History History of ear surgery Social History household members: spouse housing: house Smoking Status: Current every day smoker tobacco type: cigarettes Tobacco: How many years used: 50 how long ago did patient quit smoking: alcohol intake: never substance use type: does not use ROS ROS Narrative Patient is confused so a full review of systems was not possible at this time. Review of Systems ROS Unobtainable: due to encephalopathy Vital Signs Vital Signs Vital Signs: 02/01/24 20:36 02/01/24 20:36 02/01/24 21:12 Temperature 98.3 F 98.3 F Temperature Source Oral Oral Pulse Rate 115 H 115 H Respiratory Rate 20 H 20 H Blood Pressure 149/65 H 149/65 H Blood Pressure Mean 93 93 Pulse Ox 90 90 Oxygen Delivery Method Room Air Room Air Nasal Cannula Oxygen Flow Rate (L/min) 2 02/01/24 21:00 02/01/24 21:30 02/01/24 22:00 Temperature 98.3 F 98.2 F 98.3 F Temperature Source Oral Oral Oral Pulse Rate 111 H 111 H 106 H Respiratory Rate 22 H 24 H 22 H Blood Pressure 142/76 H 139/75 H 140/77 H Blood Pressure Mean 98 96 98 Pulse Ox 97 96 97 Oxygen Delivery Method Nasal Cannula Nasal Cannula Nasal Cannula Oxygen Flow Rate (L/min) 2 2 2 02/01/24 22:04 02/01/24 22:30 02/01/24 23:00 Temperature 98.3 F 98.3 F Temperature Source Oral Oral Pulse Rate 104 H 102 H Respiratory Rate 22 H 23 H 21 H Blood Pressure 143/74 H 131/74 H Blood Pressure Mean 97 93 Pulse Ox 97 98 Oxygen Delivery Method Nasal Cannula Nasal Cannula Oxygen Flow Rate (L/min) 2 2 02/01/24 23:34 02/01/24 23:30 02/02/24 00:00 Temperature 99.0 F 99.0 F 99.0 F Temperature Source Oral Oral Pulse Rate 100 100 97 Respiratory Rate 24 H 24 H 19 H Blood Pressure 129/67 H 129/67 H 136/71 H Blood Pressure Mean 87 87 92 Pulse Ox 97 97 96 Oxygen Delivery Method Nasal Cannula Nasal Cannula Oxygen Flow Rate (L/min) 2 2 Weight Weight: 201 lb Body Mass Index (BMI) 26.5 Physical Exam Const alert and no apparent distress General Appearance: cooperative Orientation / Consciousness: confused HEENT normocephalic, head/scalp atraumatic and hearing grossly normal bilaterally HEENT Narrative: Mucous membranes dry. Eyes PERRL and EOMs intact bilaterally Neck no lymphadenopathy and supple Resp normal respiratory effort, no retractions, no use of accessory muscles and clear to auscultation bilaterally Cardio regular rate and regular rhythm GI normal to inspection, nondistended, normoactive bowel sounds, soft to palpation and non-distended GI Narrative: Mild tenderness to palpation in right upper quadrant. Extremity normal to inspection, full ROM and no clubbing, cyanosis or edema Skin Skin Narrative: Patient has no evidence of rash at this time. Neuro CN's II-XII intact bilaterally and moves all extremities Neuro Narrative: Patient is lethargic but arousable. He can move all 4 extremities to command but his speech is slurred. Sensorium / Orientation: awake, alert, oriented to person and oriented to place Psych affect normal Results Medical Records Data Attestation: I reviewed the patient's medical records Lab / Micro Data Attestation: I reviewed the patient's lab results. 02/01/24 21:00 02/01/24 21:00 Labs: Laboratory Results - last 24 hr 02/01/24 21:00: WBC 13.0 H, RBC 5.13, Hgb 14.2, Hct 43.4, MCV 84.6, MCH 27.7, MCHC 32.7, RDW Std Deviation 48.0 H, RDW Coeff of Shoshana 15.3 H, Plt Count 165, MPV 11.6, Immature Gran % (Auto) 0.500, Neut % (Auto) 93.9 H, Lymph % (Auto) 1.3 L, Hardy % (Auto) 3.8, Eos % (Auto) 0.2, Baso % (Auto) 0.3, Absolute Neuts (auto) 12.3 H, Absolute Lymphs (auto) 0.17 L, Nucleated RBC % 0, Sodium 133 L, Potassium 3.9, Chloride 101, Carbon Dioxide 24.0, Anion Gap 8, BUN 16, Creatinine 1.19, Estim Creat Clear Calc 66.21, Est GFR (MDRD) Af Amer 78, Est GFR (MDRD) Non-Af 64, BUN/Creatinine Ratio 13.4, Glucose 209 H, Calcium 8.6, Total Bilirubin 2.70 H, Direct Bilirubin 2.00 H, AST 351 H, ALT 397 H, Alkaline Phosphatase 513 H, Ammonia 29.0, Troponin I High Sens 8, Total Protein 6.2 L, Albumin 3.0 L, Globulin 3.2, Lipase 187 H 02/01/24 21:24: PT 14.3, INR 1.1, APTT 27.0 Micro: Microbiology 02/01/24 21:35 Mucosa - Nose SARS-CoV-2, Influenza & RSV (PCR) - Final Imaging Radiology Impression Brain CT 02/01/24 20:38 IMPRESSION: Chronic involutional changes of the brain. Stable appearance. Electronically Signed: Ricardo David MD at 20:58 EDT Reading Location ID and State: [facility] / [place] , Service support , ADDENDUM: 02/01/242117 IMPRESSION: Chronic involutional changes of the brain. Stable appearance. N.B. : The above Results were Read Back by Ricardo David MD to Shanika Beltrán, , and understanding confirmed on 02/01/2024 21:11:08 (ET). Electronically Signed: Ricardo David MD at 20:58 EDT Reading Location ID and State: [facility] / [place] , Service support , Head/Neck CTA 02/01/24 20:42 IMPRESSION: No aneurysm or large vessel occlusion. Mild narrowing of the left internal carotid artery. N.B. : The above Results were Read Back by Ricardo David MD to Shanika Beltrán,DO, and understanding confirmed on 02/01/2024 21:08:46 (ET). Electronically Signed: Ricardo David MD at 21:09 EDT , ADDENDUM: 02/01/242115 IMPRESSION: No aneurysm or large vessel occlusion. Mild narrowing of the left internal carotid artery. N.B. : The above Results were Read Back by Ricardo David MD to Shanika Beltrán,DO, and understanding confirmed on 02/01/2024 21:08:46 (ET). Electronically Signed: Ricardo David MD at 21:09 EDT , Chest X-Ray 02/01/24 21:10 IMPRESSION: Degenerative changes, as described above. No demonstrated acute cardiopulmonary process. Electronically Signed: Ricardo David MD at 22:35 EDT , Gallbladder Ultrasound 02/01/24 21:48 IMPRESSION: No gallstones. Small gallbladder wall polyp. Dilated common bile duct. Fatty infiltration of the liver. Electronically Signed: Ricardo David MD at 23:24 EDT , Assessment & Plan Assessment/Plan (1) Choledocholithiasis: (2) Cholestatic hepatitis: (3) Acute metabolic encephalopathy: (4) Stroke-like symptoms: (5) Weakness: PLAN: Plan 1. Common bile duct dilatation with common bile duct measuring 14 mm with elevated bilirubin liver function tests suspicious for recurrent choledocholithiasis in the setting of of a known history of cholestatic hepatitis; status post ERCP with biliary stent placement and sphincterotomy with stone removal in October 2023 - 2. Acute metabolic encephalopathy mimicking previous strokelike symptoms due to limited cognitive reserve taxed by #1 - Continue supportive care monitor for improvement. 3. History of CVA with residual left hemiparesis - Noted. 4. Recent admission here from January 25, 2024 to January 26, 2024 for treatment of metabolic encephalopathy with MRI positive for old bilateral lacunar infarcts and chronic ischemic changes - Noted. 5. Hyperlipidemia - Resume statin once patient is ERCP is completed. 6. Overweight; with BMI 26.5 this admission plus CALLI - Weight loss will be recommended. Continue CPAP. 7. Diabetes mellitus type 2; of unknown control - Keep n.p.o. with impending ERCP. Fingerstick blood sugars every 6 hours plus lowest intensity sliding scale insulin. 8. Depression - Restart home regimen once ERCP is completed. 9. BPH - Stable. 10. Osteoarthritis - Stable. 11. DVT prophylaxis - SCD's only with impending ERCP. Total time: Approximately 55 minutes. Charges/Coding Visit Charges Inpatient E&M: 32437 Init Hosp L2
[2024-02-02] MEDS: Ciprofloxacin 400 MG/200 ML BAG 200 MG IV ×3 (00:29→20:25)
[2024-02-02] MEDS: KCl 20MEQ in D5NS 20 MEQ/1,000 ML IV.SOLN. 125 MEQ IV ×2 (02:08→11:00)
[2024-02-02] MEDS: metroNIDAZOLE 500 MG/100 ML BAG 100 MG IV ×3 (05:17→20:25)
[2024-02-02 06:36] LABS: Absolute Lymphocyte Count 0.58 X10^3/uL (0.83-4.51); Absolute Neutrophil Count 10.9 X10^3/uL (2.0-7.7); Basophil# 0.03 X10^3/uL; Basophil% 0.2 % (0-1); Eosinophil# 0.08 X10^3/uL; Eosinophils% 0.7 % (0-5); Hematocrit 42.4 % (40-54); Hemoglobin 13.5 g/dL (13.0-16.5); Lymphocyte # 0.58 X10^3/ul (0.83-4.51); Lymphocyte % 4.7 % (19-41); Mean Corp Hgb Conc 31.8 g/dL (32-36); Mean Corpuscular Hgb 27.5 pg (27.0-32.0); Mean Corpuscular Volume 86.4 fL (80-94); Mean Platelet Vol. 12.7 fl (6.2-12.0); Monocyte# 0.63 X10^3/uL; Monocyte% 5.2 % (0-10); NRBC Flagged by Analyzer 0 % (0-5); Neutrophil # 10.87 X10^3/uL (2.7-7.7); Neutrophil % 88.9 % (47-70); POSITIVE DIFFERENTIAL YES; Platelet Count 188 K/mm3 (150-450); RBC Distribution Width CV 15.6 % (11.6-14.6); RBC Distribution Width SD 49.7 fl (35.1-43.9); Red Blood Count 4.91 M/mm3 (4.6-6.2); White Blood Count 12.2 K/mm3 (4.4-11.0)
[2024-02-02] MEDS: Ipratropium/Albuterol Sulfate 3 ML AMPUL.NEB INHALATION ×3 (06:48→21:09)
[2024-02-02] MEDS: Budesonide Respules 0.5 MG/2 ML AMPUL.NEB. INHALATION ×2 (06:48→21:09)
--- NOTE | 2024-02-02 07:00 | CON.PCM.GI_ITS ---
HPI Consult Data Date of Consult: 02/02/24 HPI Narrative Reason for Consultation: Cholestatic hepatitis and jaundice HPI Narrative: OLGA RODRIGUEZ, is a 68-year-old male with history of thalamic infarct, type 2 diabetes mellitus, cholestatic hepatitis and recent admission for altered mental status thought to be secondary to metabolic encephalopathy. He did have an MRI that showed multiple old bilateral lacunar infarcts and chronic ischemic changes. He is presenting today for concern of strokelike symptoms. Last known well reported to be 1600 by EMS. EMS states when they arrived patient was very confused, having slurred speech had a left facial droop and a right arm drift. They know that he is improved upon transport. It is not clear if he is on any blood thinners. No report of any falls or head trauma. Patient has no other complaints at this time. is now at the bedside who provides further information. As she confirms that he was normal at 4 PM. They got home from [employer] and he was watching TV. He complained of feeling his abdomen is bloated and went to lay down. About 2 hours later he suddenly could not get out of bed and seemed to have stroke symptoms so 911 was called. She notes that the same thing happened about a week ago and has been told that if there is an underlying infection he can worsen stroke symptoms. She notes that the stroke symptoms today are the same as his prior stroke symptoms. In addition she states has not really been drinking much water. He does have a history of choledocholithiasis and biliary duct stenosis requiring ERCP with Dr. Hannon. He has been supposed to follow-up outpatient for cholecystectomy but this has not happened yet. He was previously here at [facility] with complaints of nausea and vomiting and upper abdominal pain, labs obtained showed elevated liver enzymes, he was seen in consultation by myself who performed an ERCP, choledocholithiasis was found as well as a stenotic area in the common bile duct. His previous common bile duct stent was replaced, biopsies were taken, patient tolerated the procedure well and there were no complications. He was advised to follow-up with surgery regarding getting his gallbladder out but he had not had a chance to get around to see them. . In the ER his right upper quadrant ultrasound revealed common bile duct dilatation with common bile duct measuring 14 mm suspicious for recurrent choledocholithiasis with corresponding laboratory evidence of hyperbilirubinemia with hypertransaminasemia complicated by clinical evidence of metabolic encephalopathy and he was then started on empiric IV antibiotics and admitted to the PCU for ongoing care. [facility] Medical History Abdominal discomfort Choledocholithiasis Common bile duct dilation COPD (chronic obstructive pulmonary disease) CPAP (continuous positive airway pressure) dependence Diabetes Elevated liver transaminase level Gastroparesis GERD (gastroesophageal reflux disease) History of diabetes mellitus History of multiple cerebrovascular accidents (CVAs) History of stroke Jaundice Non-smoker Sleep apnea Slurred speech Stroke-like symptoms Stroke/cerebrovascular accident Unintentional weight loss of 1-2% body weight within 1 week Home Medications insulin glargine 100 unit/mL (3 mL) subcutaneous pen (Lantus Solostar U-100 Insulin) 53 units subcut QHS DABETES 02/27/15 [History Last Taken 01/24/24] insulin lispro 100 unit/mL subcutaneous pen (Humalog KwikPen (U-100) Insulin) 22 unit subcut TID DIABETES 02/27/15 [History Last Taken 01/25/24] fluticasone fur. 100 mcg-umeclid 62.5 mcg-vilant 25 mcg inhalat.powder (Trelegy Ellipta) 1 inh inhalation DAILY SHORTNESS OF BREATH/WHEEZING 09/05/23 [History Last Taken 01/05/24] venlafaxine 150 mg capsule,extended release 24 hr 150 mg PO DAILY DEPRESSION 09/05/23 [History Last Taken 01/25/24] atorvastatin 80 mg tablet 80 mg PO QHS CHOLESTEROL #30 tabs 09/07/23 [Rx Last Taken 01/24/24] aspirin 81 mg chewable tablet 81 mg PO DAILY HEART HEALTH 11/02/23 [History Last Taken 01/24/24] finasteride 5 mg tablet 5 mg PO DAILY 01/05/24 [History Last Taken 01/25/24] ondansetron HCl 8 mg tablet 8 mg PO Q8H PRN nausea and vomiting #20 tabs 01/07/24 [Rx Last Taken 01/11/24] lactulose 10 gram/15 mL (15 mL) oral solution 10 g PO DAILY PRN constipation 01/25/24 [History Last Taken 01/11/24] tamsulosin 0.4 mg capsule 0.4 mg PO BID 01/25/24 [History Last Taken 01/25/24] Allergy/AdvReac Type Severity Reaction Status Date / Time Penicillins Allergy Intermediate Hives Verified 02/01/24 20:35 Family History Other Alzheimer disease Breast cancer Thyroid cancer Surgical History History of ear surgery Social History household members: spouse housing: house Smoking Status: Current every day smoker tobacco type: cigarettes Tobacco: How many years used: 50 how long ago did patient quit smoking: alcohol intake: never substance use type: does not use ROS Constitutional Constitutional: Reports weakness; Denies anorexia, change in weight, chills, fatigue, fever(s), malaise, night sweats or other Eyes Eyes: Denies blurry vision, change in eye color, change in vision, discharge from eye(s), double vision, erythema, eye pain, loss of vision or other ENT HEENT: Reports abnormal hearing and hearing loss; Denies dysphagia, ear pain, epistaxis, headache(s), nasal congestion, nasal discharge, post nasal drip, sinus pressure, sore throat or other Cardiovascular Cardiovascular: Denies chest pain, claudication, dyspnea on exertion, edema, lightheadedness, orthopnea, palpitations, paroxysmal nocturnal dyspnea, rapid heart rate, syncope or other Respiratory/Chest Respiratory/Chest: Denies cough, dyspnea, excessive phlegm production, hemoptysis, productive cough, shortness of breath at rest, shortness of breath with exertion, wheezing or other Gastrointestinal Gastrointestinal: Denies abdominal pain, coffee ground emesis, constipation, diarrhea, dyspepsia, hematemesis, hematochezia, loose stools, melena, nausea, vomiting or other Genitourinary Genitourinary: Denies burning urination, difficulty urinating, dysuria, hematuria, nocturia, urinary frequency, urinary hesitancy, urinary incontinence, urinary urgency or other Musculoskeletal Musculoskeletal: Denies arthralgias, back pain, joint pain, joint stiffness, joint swelling, myalgias, neck pain or other Neurologic Neurologic: Reports abnormal speech, confusion and focal weakness; Denies abnormal gait, disequilibrium, dizziness, headache(s), numbness, paresthesias, seizure-like activity, seizures, syncope, tingling, tremor(s) or other Psychiatric Psychiatric: Denies anxiety, depression, homicidal ideation, suicidal ideation or other Endocrine Endocrinology: Denies change in body appearance, cold intolerance, excessive sweating, heat intolerance, polydipsia, polyuria or other Hematologic/Lymphatic Hematologic/Lymphatic: Denies anemia, easy bleeding, easy bruising, lymphadenopathy or other Allergic/Immunologic Allergic/Immunologic: Denies rhinitis, hives, eczemia, asthma or other Physical Exam Const alert, oriented x3 and no apparent distress Constitutional Narrative: frail General Appearance: cooperative and well developed HEENT normocephalic, head/scalp atraumatic and oropharynx normal Mouth: dry mucous membranes Eyes PERRL and EOMs intact bilaterally Neck no lymphadenopathy and supple Lymph Lymphatic: no lymphadenopathy noted and no lymphedema noted Resp Resp Narrative: diminished breath sounds bibasally, no wheezes or crackles. on room air. Cardio regular rate, regular rhythm, S1 normal heart sound, S2 normal heart sound and no murmurs GI normal to inspection, nondistended, normoactive bowel sounds, soft to palpation, non-tender and non-distended Extremity normal capillary refill, no clubbing, cyanosis or edema and no calf tenderness General Extremity: no tenderness to palpation of joints or extremities Skin Skin Narrative: has a tinge of jaundice General Skin Exam: no breakdown Neuro CN's II-XII intact bilaterally, no focal motor deficits, no sensory deficits noted and deep tendon reflexes 2+ bilaterally Motor Exam: strength 5/5 throughout and general weakness Psych thought process normal and cooperative Appearance: appropriate Lab / Micro Data 02/02/24 05:55 02/02/24 05:55 Labs: Laboratory Results - last 24 hr 02/01/24 21:00: WBC 13.0 H, RBC 5.13, Hgb 14.2, Hct 43.4, MCV 84.6, MCH 27.7, MCHC 32.7, RDW Std Deviation 48.0 H, RDW Coeff of Shoshana 15.3 H, Plt Count 165, MPV 11.6, Immature Gran % (Auto) 0.500, Neut % (Auto) 93.9 H, Lymph % (Auto) 1.3 L, Cavalier % (Auto) 3.8, Eos % (Auto) 0.2, Baso % (Auto) 0.3, Absolute Neuts (auto) 1 2.3 H, Absolute Lymphs (auto) 0.17 L, Nucleated RBC % 0, Sodium 133 L, Potassium 3.9, Chloride 101, Carbon Dioxide 24.0, Anion Gap 8, BUN 16, Creatinine 1.19, Estim Creat Clear Calc 66.21, Est GFR (MDRD) Af Amer 78, Est GFR (MDRD) Non-Af 64, BUN/Creatinine Ratio 13.4, Glucose 209 H, Calcium 8.6, Total Bilirubin 2.70 H, Direct Bilirubin 2.00 H, AST 351 H, ALT 397 H, Alkaline Phosphatase 513 H, Ammonia 29.0, Troponin I High Sens 8, Total Protein 6.2 L, Albumin 3.0 L, Globulin 3.2, Lipase 187 H 02/01/24 21:24: PT 14.3, INR 1.1, APTT 27.0 02/02/24 05:55: WBC 12.2 H, RBC 4.91, Hgb 13.5, Hct 42.4, MCV 86.4, MCH 27.5, MCHC 31.8 L, RDW Std Deviation 49.7 H, RDW Coeff of Shoshana 15.6 H, Plt Count 188, MPV 12.7 H, Immature Gran % (Auto) 0.300, Neut % (Auto) 88.9 H, Lymph % (Auto) 4.7 L, Cavalier % (Auto) 5.2, Eos % (Auto) 0.7, Baso % (Auto) 0.2, Absolute Neuts (auto) 10.9 H, Absolute Lymphs (auto) 0.58 L, Nucleated RBC % 0, Sodium 136, Potassium 4.5, Chloride 104, Carbon Dioxide 24.0, Anion Gap 8, BUN 15, Creatinine 1.16, Estim Creat Clear Calc 67.92, Est GFR (MDRD) Af Amer 80, Est GF R (MDRD) Non-Af 66, BUN/Creatinine Ratio 12.9, Glucose 225 H, Calcium 8.1 L, Phosphorus 3.6, Magnesium 2.4, Total Bilirubin 3.40 H, AST 259 H, ALT 367 H, Alkaline Phosphatase 452 H, Total Protein 6.4, Albumin 2.7 L, Globulin 3.7, Albumin/Globulin Ratio 0.7 L, TSH 1.99 02/02/24 13:03: POC Glucose 221 H Micro: Microbiology 02/01/24 21:35 Mucosa - Nose SARS-CoV-2, Influenza & RSV (PCR) - Final Rhythm Strip Rhythm Strip: Sinus Tach Rate: 111 Ectopy: None Imaging Radiology Impression Brain CT 02/01/24 20:38 IMPRESSION: Chronic involutional changes of the brain. Stable appearance. Electronically Signed: Ricardo David MD at 20:58 EDT , ADDENDUM: 02/01/242117 IMPRESSION: Chronic involutional changes of the brain. Stable appearance. N.B. : The above Results were Read Back by Ricardo David MD to Shanika Beltrán, , and understanding confirmed on 02/01/2024 21:11:08 (ET). Electronically Signed: Ricardo David MD at 20:58 EDT , Head/Neck CTA 02/01/24 20:42 IMPRESSION: No aneurysm or large vessel occlusion. Mild narrowing of the left internal carotid artery. N.B. : The above Results were Read Back by Ricardo David MD to Shanika Beltrán DO, and understanding confirmed on 02/01/2024 21:08:46 (ET). Electronically Signed: Ricardo David MD at 21:09 EDT , ADDENDUM: 02/01/242115 IMPRESSION: No aneurysm or large vessel occlusion. Mild narrowing of the left internal carotid artery. N.B. : The above Results were Read Back by Ricardo David MD to Shanika Beltrán DO, and understanding confirmed on 02/01/2024 21:08:46 (ET). Electronically Signed: Ricardo David MD at 21:09 EDT , Chest X-Ray 02/01/24 21:10 IMPRESSION: Degenerative changes, as described above. No demonstrated acute cardiopulmonary process. Electronically Signed: Ricardo David MD at 22:35 EDT , Gallbladder Ultrasound 02/01/24 21:48 IMPRESSION: No gallstones. Small gallbladder wall polyp. Dilated common bile duct. Fatty infiltration of the liver. Electronically Signed: Ricardo David MD at 23:24 EDT , Assessment & Plan Assessment/Plan (1) Choledocholithiasis: (2) Cholestatic hepatitis: (3) Acute metabolic encephalopathy: (4) Stroke-like symptoms: (5) Weakness: PLAN: Plan 1. Common bile duct dilatation with common bile duct measuring 14 mm with elevated bilirubin liver function tests suspicious for recurrent choledocholithiasis in the setting of of a known history of cholestatic hepatitis; status post ERCP with biliary stent placement and sphincterotomy with stone removal in October 2023 - 2. Acute metabolic encephalopathy mimicking previous strokelike symptoms due to limited cognitive reserve . Patient does have an appointment to see neurology next month. 3. History of CVA with residual left hemiparesis - Noted. 4. Recent admission here from January 25, 2024 to January 26, 2024 for treatment of metabolic encephalopathy with MRI positive for old bilateral lacunar infarcts and chronic ischemic changes - Noted. 5. Hyperlipidemia - Resume statin once patient is ERCP is completed.
[2024-02-02 07:23] LABS: ALB/GLOB Ratio 0.7 RATIO (0.9-2.4); AST(SGOT) 259 U/L (15-37); Alanine Aminotransfer ALT/SGPT 367 U/L (16-61); Albumin, Serum 2.7 g/dL (3.2-5.0); Alkaline Phosphatase 452 U/L (45-117); Anion Gap 8 (5-15); BUN 15 mg/dL (7-18); BUN/Creat Ratio 12.9 RATIO (10-20); Calcium,Total 8.1 mg/dL (8.5-10.1); Chloride 104 mmol/L (98-107); Creatinine, Serum 1.16 mg/dL (0.70-1.30); EST Glomerular Filtration Rate 66 mL/min (>60); Est Glom Filt Rate - Afr Amer 80 mL/min (>60); Estimated Creatinine Clearance 67.92 ml/min; Globulin 3.7 g/dL (2.2-4.2); Glucose 225 mg/dL (74-106); Magnesium 2.4 mg/dL (1.6-2.6); Phosphorus 3.6 mg/dL (2.5-4.9); Potassium 4.5 mmol/L (3.5-5.1); Protein, Total 6.4 g/dL (6.4-8.2); Sodium Level 136 mmol/L (136-145); Thyroid Stim Hormone (TSH) 1.99 uIU/mL (0.358-3.74)
[2024-02-02] MEDS: Pantoprazole Sodium 40 MG in 0.9% Normal Saline (100mL MB+) 100 ML 330 MG IV (10:31)
[2024-02-02] MEDS: Insulin Lispro 100 UNIT/ML INSULN.PEN SC ×2 (13:10→18:48)
[2024-02-02 13:24] LABS: Bedside Glucose 221 mg/dL (74-106)
--- NOTE | 2024-02-02 15:08 | CASEMGMT ---
Readmission Note: Index: 01/05 - 01/07. Dx: Transaminitis with Hx of Choledocholithiasis Readmission: Choledocholithiasis with metabolic encephalopathy Pt with a past medical history of hyperlipidemia, overweight, CALLI, diabetes mellitus type 2; of unknown control, depression, BPH, osteoarthritis, history of CVA with residual left hemiparesis presents to the [facility] ER with c/o AMS with slurred speech, Lt sided facial droop and ABD pain. On index admission, pt was DC with a 1800 calorie diet restriction/ recommendation. Pt states that he was unaware of this. Pt was prescribed an increased dose in Tamsulosin and also a new Rx for Zofran. Pt states that he was able to acquire these and take them as ordered. Pt states that he was able to check his BS with his BGM with no issues. Pt was recommended to f/u with his PCP (Shahrzad) and Dr. Hannon. Pt states that he was able to see both of these MDs. Pt was also admitted to the PCU (under OBS status) on 01/24 to 01/25 for AMS and TIA. After this admission, pt was recommended a low fat and low cholesterol diet. Pt states that he was aware of this and tried adhering to the diet recommendation. Per the DC instructions during this stay, the pt was advised to consume less than 2000 mg of Na per day. Pt states that he was unaware of this. Also, the pt was advised to f/u with a neurologist. When asking the pt about this f/u, the pt states are you kidding me, do you know how long it takes to be seen by one of them. Pt reassured at this time by this RN CM. During this stay, the pt 6-click is 18. There currently is no therapy ordered for this pt. The CM on PCU made aware of this at this time. The pt is planned for an ERCP today and is also on empiric IV ATBs. CM is to follow for safe DC from [facility]. Jaswinder STEPHEN RN, CM
[2024-02-02] MEDS: Lactated Ringers 1,000 ML 15 ML IV (15:14)
--- NOTE | 2024-02-02 15:32 | PN_ITS ---
Subjective Subjective Patient seen and examined. He had no complaints. He denied any nausea or vomiting or abdominal pain. He denied any dizziness or lightheadedness. Review of systems otherwise negative. Objective Data Objective Data Vital Signs: Vital Signs Temp Pulse Resp BP Pulse Ox O2 Del Method O2 Flow Rate 97.8 F 68 16 118/57 L 93 Room Air 2 02/02/24 14:21 02/02/24 14:21 02/02/24 14:21 02/02/24 14:21 02/02/24 14:21 02/02/24 14:29 02/02/24 08:27 Oxygen Flow Rate (L/min) 2 Oxygen Delivery Method Room Air Weight: 209 lb 3.499 oz Body Mass Index (BMI) 27.7 Intake & Output: Intake and Output for Last 24 Hours 01/31/24 02/01/24 02/02/24 23:59 23:59 23:59 Intake Total 1000 / 1000 2443.75 / 2443.75 Output Total 1000 / 1000 Balance 1000 / 1000 1443.75 / 1443.75 Lab / Micro Data 02/02/24 05:55 02/02/24 05:55 Labs: Laboratory Results - last 24 hr 02/01/24 21:00: WBC 13.0 H, RBC 5.13, Hgb 14.2, Hct 43.4, MCV 84.6, MCH 27.7, MCHC 32.7, RDW Std Deviation 48.0 H, RDW Coeff of Shoshana 15.3 H, Plt Count 165, MPV 11.6, Immature Gran % (Auto) 0.500, Neut % (Auto) 93.9 H, Lymph % (Auto) 1.3 L, [place] % (Auto) 3.8, Eos % (Auto) 0.2, Baso % (Auto) 0.3, Absolute Neuts (auto) 12.3 H, Absolute Lymphs (auto) 0.17 L, Nucleated RBC % 0, Sodium 133 L, Potassium 3.9, Chloride 101, Carbon Dioxide 24.0, Anion Gap 8, BUN 16, Creatinine 1.19, Estim Creat Clear Calc 66.21, Est GFR (MDRD) Af Amer 78, Est GFR (MDRD) Non-Af 64, BUN/Creatinine Ratio 13.4, Glucose 209 H, Calcium 8.6, Total Bilirubin 2.70 H, Direct Bilirubin 2.00 H, AST 351 H, ALT 397 H, Alkaline Phosphatase 513 H, Ammonia 29.0, Troponin I High Sens 8, Total Protein 6.2 L, Albumin 3.0 L, Globulin 3.2, Lipase 187 H 02/01/24 21:24: PT 14.3, INR 1.1, APTT 27.0 02/02/24 05:55: WBC 12.2 H, RBC 4.91, Hgb 13.5, Hct 42.4, MCV 86.4, MCH 27.5, MCHC 31.8 L, RDW Std Deviation 49.7 H, RDW Coeff of Shohsana 15.6 H, Plt Count 188, MPV 12.7 H, Immature Gran % (Auto) 0.300, Neut % (Auto) 88.9 H, Lymph % (Auto) 4.7 L, [place] % (Auto) 5.2, Eos % (Auto) 0.7, Baso % (Auto) 0.2, Absolute Neuts (auto) 10.9 H, Absolute Lymphs (auto) 0.58 L, Nucleated RBC % 0, Sodium 136, Potassium 4.5, Chloride 104, Carbon Dioxide 24.0, Anion Gap 8, BUN 15, Crea tinine 1.16, Estim Creat Clear Calc 67.92, Est GFR (MDRD) Af Amer 80, Est GFR (MDRD) Non-Af 66, BUN/Creatinine Ratio 12.9, Glucose 225 H, Calcium 8.1 L, P hosphorus 3.6, Magnesium 2.4, Total Bilirubin 3.40 H, AST 259 H, ALT 367 H, Alkaline Phosphatase 452 H, Total Protein 6.4, Albumin 2.7 L, Globulin 3.7, Albumin/Globulin Ratio 0.7 L, TSH 1.99 02/02/24 13:03: POC Glucose 221 H Micro: Microbiology 02/01/24 21:35 Mucosa - Nose SARS-CoV-2, Influenza & RSV (PCR) - Final Radiography Diagnostic Testing: Radiology Impression Brain CT 02/01/24 20:38 IMPRESSION: Chronic involutional changes of the brain. Stable appearance. Electronically Signed: Ricardo David MD at 20:58 EDT , ADDENDUM: 02/01/242117 IMPRESSION: Chronic involutional changes of the brain. Stable appearance. N.B. : The above Results were Read Back by Ricardo David MD to Shanika Beltrán DO, and understanding confirmed on 02/01/2024 21:11:08 (ET). Electronically Signed: Ricardo David MD at 20:58 EDT , Head/Neck CTA 02/01/24 20:42 IMPRESSION: No aneurysm or large vessel occlusion. Mild narrowing of the left internal carotid artery. N.B. : The above Results were Read Back by Ricardo David MD to Shanika Beltrán DO, and understanding confirmed on 02/01/2024 21:08:46 (ET). Electronically Signed: Ricardo David MD at 21:09 EDT , ADDENDUM: 02/01/242115 IMPRESSION: No aneurysm or large vessel occlusion. Mild narrowing of the left internal carotid artery. N.B. : The above Results were Read Back by Ricardo David MD to Shanika Beltrán DO, and understanding confirmed on 02/01/2024 21:08:46 (ET). Electronically Signed: Ricardo David MD at 21:09 EDT , Chest X-Ray 02/01/24 21:10 IMPRESSION: Degenerative changes, as described above. No demonstrated acute cardiopulmonary process. Electronically Signed: Ricardo David MD at 22:35 EDT , Gallbladder Ultrasound 02/01/24 21:48 IMPRESSION: No gallstones. Small gallbladder wall polyp. Dilated common bile duct. Fatty infiltration of the liver. Electronically Signed: Ricardo David MD at 23:24 EDT Reading Location ID and State: [address] [place] [address] , Service support , Rhythm Strip Rhythm Strip: Sinus Tach Rate: 111 Ectopy: None Physical Exam Const alert, oriented x3 and no apparent distress Constitutional Narrative: frail General Appearance: cooperative and well developed HEENT normocephalic, head/scalp atraumatic and oropharynx normal Mouth: dry mucous membranes Eyes PERRL and EOMs intact bilaterally Neck no lymphadenopathy and supple Lymph Lymphatic: no lymphadenopathy noted and no lymphedema noted Resp Resp Narrative: diminished breath sounds bibasally, no wheezes or crackles. on room air. Cardio regular rate, regular rhythm, S1 normal heart sound, S2 normal heart sound and no murmurs GI normal to inspection, nondistended, normoactive bowel sounds, soft to palpation, non-tender and non-distended Extremity normal capillary refill, no clubbing, cyanosis or edema and no calf tenderness General Extremity: no tenderness to palpation of joints or extremities Skin Skin Narrative: has a tinge of jaundice General Skin Exam: no breakdown Neuro CN's II-XII intact bilaterally, no focal motor deficits, no sensory deficits noted and deep tendon reflexes 2+ bilaterally Motor Exam: strength 5/5 throughout and general weakness Psych thought process normal and cooperative Appearance: appropriate Assessment & Plan Assessment/Plan (1) Acute metabolic encephalopathy: (2) Choledocholithiasis: PLAN: Plan #Altered mental status * seems to have resolved. * he does have a history of previous CVA. * He did have elevated liver enzymes and so concern is that it may have been due to metabolic encephalopathy due to confusion * mentation now improved and able to communicate * #Probable choledocholithiasis * Abdominal imaging done on admission showed: Bile duct dilatation with common bile duct measuring 14 mm suspicious for recurrent choledocholithiasis. * Also had hyperbilirubinemia and liver enzymes were elevated. * Currently on IV ciprofloxacin and metronidazole. Of note he is allergic to penicillins. * Gastroenterology consulted; await recs * #Hyperlipidemia: on statin #Type 2 diabetes mellitus: On Lantus 53 units nightly. Insulin status clear. Apetex ACHS. #Depression: On venlafaxine. 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 Stable. On aspirin and statin. DVT prophylaxis: SCDs Charges/Coding Visit Charges Inpatient E&M: 80105 Subs Hosp L3
--- NOTE | 2024-02-02 16:20 | TISS_PTH ---
PATIENT: OLGA RODRIGUEZ LOC: [facility] U#:[id number] AGE/SX: 68/M ROOM: [facility] RE02/02/[address]: Dr. Vannesa Pulido MD : 1955 BED: 1 DIS: 02/06/2024 SPEC #: [id number] RECD: 02/03/24 09:36 STATUS: WILBUR LIU #: [id number] CARLOTTA: 02/02/24 16:[address]: Ronnie Hannon DEPT: SURGICAL PATHOLOGY RECD BY: Lorena Palma ENTERED: 02/03/24 09:37 SP TYPE: Tissue Bx OTHR DR: DO Dr. Juan Dao MD Dr. Nana Yaa Koram, MD Dr. Tamera Robotham, MD Dr. William Lago, MD Tissues: Biliary tract, NOS Procedures: Surgery Specimen Level IV Comments: @ Ordering doctor for SUIV edited from to @ stuart FUNK at 02/06/24916 @ Submitting doctor edited from to @ stuart FUNK at 02/06/24916 HEADER OPERATION: ERCP, with spy glass and spy-bites, brushing s and biliary stent PRE-OP DIAGNOSIS: Choledocholithiasis TISSUE SUBMITTED: Biliary stricture, spy-bites MICROSCOPIC DIAGNOSIS Biliary stricture, biopsy; Crushed mildly atypical epithelial cells, acute inflammation and fibrinoid material. See comment. AM/mr 02/06/2024 COMMENT There is no definite evidence of malignancy. Clinical correlation suggested. Also correlate this case with cytology ([id number]). Case has been reviewed in consultation with Dr. Chacon who concurs with the above diagnosis. IDC:[email or web address] MICROSCOPIC DESCRIPTION Slides are reviewed. GROSS DESCRIPTION Received in fixative is one container labeled with the patient's name and designated Biliary stricture, spy-bites. The specimen consists of multiple irregular fragments of light macias soft tissue that in aggregate measure 0.6 x 0.1 x 0.1 cm. The specimen is totally submitted in one cassette. VASYL/ 02/03/24 TC:2 CPT: 24939
--- NOTE | 2024-02-02 16:20 | FLU_PTH ---
PATIENT: OLGA RODRIGUEZ LOC: [facility] U#:[id number] AGE/SX: 68/M ROOM: [facility] RE02/02/[address]: Dr. Vannesa Pulido MD : 1955 BED: 1 DIS: 02/06/2024 SPEC #: [id number] RECD: 02/03/24 09:33 STATUS: SOUT REQ #: [id number] CARLOTTA: 02/02/24 16:[address]: Ronnie Hannon DEPT: CYTOLOGY RECD BY: Lorena Palma ENTERED: 02/03/24 09:35 SP TYPE: Fluid OTHR DR: DO Dr. Juan Dao MD Dr. Nana Yaa Koram, MD Dr. Tamera Robotham, MD Dr. William Lago, MD Tissues: A - Bile duct, NOS B - Bile duct, NOS Procedures: Special Stain Group II Surgery Specimen Level IV Cytospin Fluid Comments: @ Ordering doctor for SSII edited from to @ by GOOD at 02/06/24917 @ Ordering doctor for SUIV edited from to @ by GOOD at 02/06/24917 @ Ordering doctor for CYSPIN edited from to @ by GOOD at 02/06/24917 @ Submitting doctor edited from to @ by GOOD at 02/06/2418 HEADER OPERATION: ERCP, with spy glass and spy-bites, brushings and biliary stent PRE-OP DIAGNOSIS: Choledocholithiasis TISSUE SUBMITTED: A- Biliary stent for cytology, B- Distal common bile duct stricture, brushings DIAGNOSIS CYTOLOGY A. Biliary stent fluid for cytology (cytospin and cell block); Negative for malignant cells. B. Distal common bile duct stricture brushings (cytospin and cell block); Negative for malignant cells. AM/mr 02/06/2024 COMMENT Also correlate this case with surgical specimen ([id number]). CYTOLOGY STUDY Slides are reviewed. CYTOLOGY GROSS A. Received is 10 ml of macias cloudy fluid labeled with the patient's name and and designated per the requisition as Biliary stent. Submitted for cytology preparation including cell block. B. Received is a metallic endoscopic cytobrush with adherent minute fragments of macias-red tissue brush in 2 ml of clear red fluid and labeled with the patient's name and and designated per the requisition as brush. The material is dislodged from the brush and submitted for cytology preparation including cell block. mr 02/03/24 TC:5 CPT: 80242k8,51660v8
--- NOTE | 2024-02-02 16:40 | RAD_ITS ---
ERCP INDICATION: Abdominal pain. Fluoroscopy time: 20 seconds. Images obtained: 30 TECHNIQUE: Fluoroscopy of the abdomen was utilized during an ERCP and the images are cemented for interpretation. FINDINGS: There is a biliary stent. Balloon syndrome he was performed in a biliary stent was placed. RAD/ERCP Biliary/Pancreas IMPRESSION: Fluoroscopy during ERCP. Electronically Signed: Bonifacio Su MD at 20:01 EDT ,
--- NOTE | 2024-02-02 17:48 | OP.ERCP_ITS ---
Patient Name: Max Woodson Procedure Date: 02/02/2024 4:20 PM Date of : 1955 Age: 68 Procedure: ERCP Indications: Common bile duct stone(s), Suspected ascending cholangitis, Jaundice Providers: Ronnie Hannon DO Medicines: Monitored Anesthesia Care Patient Profile: This is a 68 year old male. Refer to note in patient chart for documentation of history and physical. Patient has symptoms of acute epigastric abdominal pain and acute jaundice. Complications: No immediate complications. Procedure: Pre-Anesthesia Assessment: - Prior to the procedure, a History and Physical was performed, and patient medications and allergies were reviewed. The patient is competent. The risks and benefits of the procedure and the sedation options and risks were discussed with the patient. All questions were answered and informed consent was obtained. Patient identification and proposed procedure were verified by the physician in the pre-procedure area. Mental Status Examination: alert and oriented. Respiratory Examination: clear to auscultation. CV Examination: normal. Prophylactic Antibiotics: The patient does not require prophylactic antibiotics. Prior Anticoagulants: The patient has taken no anticoagulant or antiplatelet agents. ASA Grade Assessment: IV - A patient with severe systemic disease that is a constant threat to life. After reviewing the risks and benefits, the patient was deemed in satisfactory condition to undergo the procedure. The anesthesia plan was to use monitored anesthesia care (MAC). Immediately prior to administration of medications, the patient was re-assessed for adequacy to receive sedatives. The heart rate, respiratory rate, oxygen saturations, blood pressure, adequacy of pulmonary ventilation, and response to care were monitored throughout the procedure. The physical status of the patient was re-assessed after the procedure. After obtaining informed consent, the scope was passed under direct vision. Throughout the procedure, the patient's blood pressure, pulse, and oxygen saturations were monitored continuously. The Duodenoscope was introduced through the mouth, and advanced to the duodenum and used to inject contrast into the bile duct and ventral pancreatic duct. The ERCP was accomplished without difficulty. The patient tolerated the procedure well. Scope In: 4:42:22 PM Scope Out: 5:32:20 PM Total Procedure Duration Time 0 hours 49 minutes 58 seconds Findings: The crusher screen repairer film was normal. The esophagus was successfully intubated under direct vision. The scope was advanced to a normal major papilla in the descending duodenum without detailed examination of the pharynx, larynx and associated structures, and upper GI tract. The upper GI tract was grossly normal. A 0.035 inch x 260 cm angled Hydra Jagwire was passed into the ventral pancreatic duct. The ventral pancreatic duct was then deeply cannulated with the short-nosed traction sphincterotome. Contrast was injected. I personally interpreted the bile duct and pancreatic duct images. There was brisk flow of contrast through the ducts. Image quality was excellent. Contrast extended to the entire biliary tree. Opacification of the entire pancreatic ductal system was successful. The maximum diameter of the ducts was 4 mm. The entire opacified area was normal. One 5 Fr by 7 cm temporary stent was placed 5 cm into the ventral pancreatic duct. Clear fluid flowed through the stent. The stent was in good position. A straight Roadrunner wire was passed into the biliary tree. The bile duct was then deeply cannulated over the guidewire. Contrast was injected. Opacification of the entire biliary tree except for the cystic duct and gallbladder was successful. The maximum diameter of the ducts was 12 mm. The lower third of the main bile duct contained a single localized stenosis 6 mm in length. The entire biliary tree except for the cystic duct and gallbladder were diffusely dilated, secondary to a stricture. The largest diameter was 12 mm. A 5 mm biliary sphincterotomy was made with a braided traction (standard) sphincterotome using ERBE electrocautery. The sphincterotomy oozed blood. The biliary tree was swept with a 12 mm balloon starting at the left intrahepatic duct(s). Sludge was swept from the duct. All stones were removed. One stent was removed from the biliary tree using a snare and sent for cytology. The stent was found to be partially occluded via the water column test. The bile duct was explored endoscopically using the Yulex direct visualization system. The SpyScope was advanced to the left main hepatic duct. Visibility with the scope was excellent. The lower third of the main bile duct contained a single localized stenosis 4 mm in length. Fluid aspiration for cytology was performed in the lower third of the main bile duct. Cells for cytology were obtained by brushing in the lower third of the main bile duct. The lower third of the main bile duct was biopsied with a [employer] miniature biopsy forceps for histology. Electrohydraulic lithotripsy was successful. The biliary tree was swept with a 15 mm balloon starting at the bifurcation. Sludge was swept from the duct. All stones were removed. Impression: - A single localized biliary stricture was found in the lower third of the main bile duct. The stricture was indeterminate. - A single localized biliary stricture was found in the lower third of the main bile duct. The stricture was indeterminate. - The biliary system were dilated, secondary to a stricture. - Choledocholithiasis was found. Complete removal was accomplished by biliary sphincterotomy and balloon extraction. - One temporary stent was placed into the ventral pancreatic duct. - A biliary sphincterotomy was performed. - The biliary tree was swept. - One stent was removed from the biliary tree. - Fluid aspiration was performed. - Cells for cytology obtained in the lower third of the main duct. - Biopsy was performed in the lower third of the main duct. - Lithotripsy was successful. - The biliary tree was swept. Procedure Code(s): --- Professional --- 15908, Endoscopic retrograde cholangiopancreatography (ERCP); with placement of endoscopic stent into biliary or pancreatic duct, including pre- and post-dilation and guide wire passage, when performed, including sphincterotomy, when performed, each stent 54452, Endoscopic retrograde cholangiopancreatography (ERCP); with destruction of calculi, any method (eg, mechanical, electrohydraulic, lithotripsy) 80769, 59, Endoscopic retrograde cholangiopancreatography (ERCP); with removal of foreign body(s) or stent(s) from biliary/pancreatic duct(s) 89635, 59,51, Endoscopic retrograde cholangiopancreatography (ERCP); with sphincterotomy/papillotomy 94425, 59, Endoscopic retrograde cholangiopancreatography (ERCP); with biopsy, single or multiple 92608, Endoscopic cannulation of papilla with direct visualization of pancreatic/common bile duct(s) (List separately in addition to code(s) for primary procedure) 39101, 26, Combined endoscopic catheterization of the biliary and pancreatic ductal systems, radiological supervision and interpretation CPT copyright 2021 [employer]. All rights reserved. The codes documented in this report are preliminary and upon branch specialist review may be revised to meet current compliance requirements. Ronnie Hannon DO 02/02/2024 5:48:06 PM This report has been signed electronically. Number of Addenda: 0 Note Initiated On: 02/02/2024 4:20 PM
--- NOTE | 2024-02-02 17:48 | OP.CCLET_ITS ---
02/02/2024 Tommy Markham Re : ERCP procedure for Max Fink Shahrzad This procedure was performed on January. My impressions and recommendations are as follows: Impressions : - A single localized biliary stricture was found in the lower third of the main bile duct. The stricture was indeterminate. - A single localized biliary stricture was found in the lower third of the main bile duct. The stricture was indeterminate. - The biliary system were dilated, secondary to a stricture. - Choledocholithiasis was found. Complete removal was accomplished by biliary sphincterotomy and balloon extraction. - One temporary stent was placed into the ventral pancreatic duct. - A biliary sphincterotomy was performed. - The biliary tree was swept. - One stent was removed from the biliary tree. - Fluid aspiration was performed. - Cells for cytology obtained in the lower third of the main duct. - Biopsy was performed in the lower third of the main duct. - Lithotripsy was successful. - The biliary tree was swept. Recommendations : My findings are described in the full procedure note, which is enclosed. If I can be of further assistance, please feel free to contact me at . Sincerely, Ronnie Hannon DO 02/02/2024 5:48:06 PM This report has been signed electronically.
[2024-02-02 18:03] LABS: Cytology, Body Fluid / CSF SEE PATHOLOGY REPORT
[2024-02-02 18:14] LABS: Bedside Glucose 188 mg/dL (74-106)
[2024-02-02] MEDS: 0.9% Normal Saline (1000mL) 1,000 ML 100 ML IV (18:42)
[2024-02-02 19:13] LABS: Bedside Glucose 184 mg/dL (74-106)
[2024-02-02] MEDS: Tamsulosin HCl 0.4 MG Capsule PO (20:25)
[2024-02-02] MEDS: Insulin Glargine-YFGN 100 UNIT/ML Pen 10 UNIT SC (20:26)
[2024-02-02 20:48] LABS: Bedside Glucose 220 mg/dL (74-106)
[2024-02-03] VITALS (18 sets, daily range): BP systolic 108–149; BP diastolic 40–86; PULSE 66–82; RESP 14–25; TEMP 36.4–37.1; O2SAT 93–97; BMI 29.1
--- NOTE | 2024-02-03 | LIVB_PTH ---
PATIENT: OLGA RODRIGUEZ LOC: [facility] U#:[id number] AGE/SX: 68/M ROOM: [facility] RE02/02/[address]: Dr. Vannesa Pulido MD : 1955 BED: 1 DIS: 02/06/2024 SPEC #: [id number] RECD: 02/03/24 12:19 STATUS: WILBUR LIU #: [id number] CARLOTTA: 02/03/24 00:[address]: Vannesa Pulido DEPT: SURGICAL PATHOLOGY RECD BY: Zayra Paz ENTERED: 02/03/24 13:40 SP TYPE: LIVER BX OTHR DR: DO Dr. Juan Dao MD Dr. Michael Bortz, MD Dr. William Lago, MD Tissues: Liver, NOS Procedures: PAS with Diastase (control) Trichrome (control) Special Stain Group II PAS Stain (control) Surgery Specimen Level V Retic (control) Iron Stain (control) HEADER OPERATION: Liver biopsy PRE-OP DIAGNOSIS: cholestatic hepatitis, jaundice TISSUE SUBMITTED: Liver 18-gauge x3 MICROSCOPIC DIAGNOSIS Liver, CT-guided core biopsy: Acute and chronic cholangitis. Chronic hepatitis, grade 3, stage 1. See comment. AM:shelby 02/06/2024 COMMENT Sections show acute and chronic inflammatory cells surrounding and involving bile ducts. The portal areas are moderately expanded by acute and chronic inflammatory cells (moderate limiting plate necrosis). Trichrome stain with matched control reveals fibrosis confined to portal areas. No bridging fibrosis or cirrhosis is identified. There are rare lipogranulomas identified. Minimal fatty change is noted. There is no evidence of malignancy. Trichrome, iron, PAS, PASD and reticulin stains with matched controls were used in the evaluation of this case. Clinical correlations suggested. Case has been reviewed in consultation with Dr. Chacon who concurs with the above diagnosis. IDC:[id number] MICROSCOPIC DESCRIPTION Slides are reviewed. GROSS DESCRIPTION Received in fixative is one container labeled with the patient's name and designated liver. The specimen consists of three cores of light macias soft tissue. Each core has an average length of 1.5 cm and a maximal diameter of 0.1 cm. The specimen is totally submitted in one cassette. / AM:shelby 02/03/2024 TC:2 CPT: 12923, 56485 x5
[2024-02-03] MEDS: Insulin Lispro 100 UNIT/ML INSULN.PEN SC ×4 (00:13→18:43)
[2024-02-03 00:25] LABS: Bedside Glucose 360 mg/dL (74-106)
[2024-02-03 05:21] LABS: Absolute Lymphocyte Count 0.33 X10^3/uL (0.83-4.51); Absolute Neutrophil Count 8.5 X10^3/uL (2.0-7.7); Basophil# 0.01 X10^3/uL; Basophil% 0.1 % (0-1); Hemoglobin 12.6 g/dL (13.0-16.5); Lymphocyte # 0.33 X10^3/ul (0.83-4.51); Lymphocyte % 3.6 % (19-41); Mean Corp Hgb Conc 31.5 g/dL (32-36); Mean Corpuscular Hgb 27.5 pg (27.0-32.0); Mean Corpuscular Volume 87.3 fL (80-94); Mean Platelet Vol. 11.6 fl (6.2-12.0); Monocyte# 0.39 X10^3/uL; Monocyte% 4.2 % (0-10); NRBC Flagged by Analyzer 0 % (0-5); Neutrophil # 8.48 X10^3/uL (2.7-7.7); Neutrophil % 91.6 % (47-70); POSITIVE DIFFERENTIAL YES; Platelet Count 146 K/mm3 (150-450); RBC Distribution Width CV 15.7 % (11.6-14.6); RBC Distribution Width SD 50.2 fl (35.1-43.9); Red Blood Count 4.58 M/mm3 (4.6-6.2); White Blood Count 9.3 K/mm3 (4.4-11.0)
[2024-02-03 05:23] LABS: Bedside Glucose 311 mg/dL (74-106)
[2024-02-03] MEDS: metroNIDAZOLE 500 MG/100 ML BAG 100 MG IV ×3 (05:32→21:34)
[2024-02-03] MEDS: 0.9% Normal Saline (1000mL) 1,000 ML 100 ML IV (05:33)
[2024-02-03 06:00] LABS: ALB/GLOB Ratio 0.7 RATIO (0.9-2.4); AST(SGOT) 138 U/L (15-37); Alanine Aminotransfer ALT/SGPT 269 U/L (16-61); Albumin, Serum 2.6 g/dL (3.2-5.0); Alkaline Phosphatase 385 U/L (45-117); Anion Gap 8 (5-15); BUN 15 mg/dL (7-18); BUN/Creat Ratio 10.8 RATIO (10-20); Calcium,Total 8.6 mg/dL (8.5-10.1); Chloride 106 mmol/L (98-107); Creatinine, Serum 1.39 mg/dL (0.70-1.30); EST Glomerular Filtration Rate 54 mL/min (>60); Est Glom Filt Rate - Afr Amer 65 mL/min (>60); Estimated Creatinine Clearance 61.32 ml/min; Globulin 3.7 g/dL (2.2-4.2); Glucose 334 mg/dL (74-106); Potassium 4.9 mmol/L (3.5-5.1); Protein, Total 6.3 g/dL (6.4-8.2); Sodium Level 137 mmol/L (136-145)
[2024-02-03 08:19] LABS: Ferritin 545 ng/mL (26-388)
[2024-02-03] MEDS: Pantoprazole Sodium 40 MG in 0.9% Normal Saline (100mL MB+) 100 ML 330 MG IV (09:01)
[2024-02-03] MEDS: Midazolam 2 MG/2 ML Syringe IV (11:32)
[2024-02-03] MEDS: fentaNYL 100 MCG/2 ML Ampul IV (11:36)
[2024-02-03] MEDS: Lidocaine 2% (20 ml mdv) 20 ML Vial INFILT (11:54)
--- NOTE | 2024-02-03 12:02 | PRO.PCM_ITS ---
Procedure Report Date of Procedure: 02/03/24 Assessment & Plan Assessment/Plan (1) Cholestatic hepatitis: PLAN: PROCEDURE: CT DIRECTED CORE LIVER BIOPSY ORDERING PROVIDER: Dr. Hannon INDICATION: Male, 68 years old. Cholestatic hepatitis. PROVIDER: OLIVIA Villafana CONSENT: Written informed consent was obtained having explained the risks, benefits and alternatives in detail with the patient who accepted the risks and agreed to proceed. Laboratory review and clinical assessment was performed. PRE-PROCEDURE SEDATION ASSESSMENT: Current history and physical dictated by referring provider and reviewed. No clinical changes since date of exam. Patient has an ASA Class of 3. PROCEDURAL SEDATION PROTOCOL: The Drugs used were: 2 mg Versed, IV, and 50 mcg Fentanyl, IV. The sedation time was: 27 minutes, starting at 1132 and terminated at 1159. The procedural sedation protocol was independently monitored by the department nurse. RADIATION DOSAGE (If Supplied By Facility): CTDIvol = 20.24 mGy, DLP = 1998.60 mGycm Individualized dose optimization techniques were used for this CT. TECHNIQUE: The patient was placed in a supine position. Using CT image guidance with image documentation, a suitable location in the right lobe of the liver was identified. The skin surface was prepped with betadine and draped in a sterile fashion. 2% lidocaine was used for local anesthesia. Using a lateral approach, puncture of the liver was uneventful with an 18-gauge core needle system. 3, 18- gauge core samples were obtained, and submitted in formalin to the pathologist for further assessment. The needle was removed. An occlusive sterile dressing was applied. Patient tolerated the procedure well, and returned to the [facility] for nursing monitoring. IMPRESSION: 1. CT directed core needle biopsy of the liver, using CT image guidance with image documentation as described. 2. Procedural Sedation protocol utilized with independent monitoring. Procedures Radiology Radiology CT Procedures: 93946 Biopsy Liver
--- NOTE | 2024-02-03 13:12 | CASEMGMT ---
OFELIA WASHINGTON NOTE: OFELIA WASHINGTON to room. Introduced self and role. Pt resting in bed. @ bedside. Discussed discharge plan. Pt states he has been going to [facility] for OP therapy and wishes to resume this when discharged home. Jackeline BAIGN OFELIA WASHINGTON
[2024-02-03] MEDS: Ciprofloxacin 400 MG/200 ML BAG 200 MG IV (13:29)
--- NOTE | 2024-02-03 13:39 | PN_ITS ---
Subjective Subjective Patient seen and examined. He had no active complaints. was by bedside. He did have ERCP today which showed biliary stricture which was dilated and he had a stent placed. He was also finding of choledocholithiasis. He has remained hemodynamically stable. Liver enzymes still remain elevated. Objective Data Objective Data Vital Signs: Vital Signs Temp Pulse Resp BP Pulse Ox O2 Del Method O2 Flow Rate 98.7 F 66 18 118/61 93 Room Air 2 02/03/24 13:01 02/03/24 13:01 02/03/24 13:01 02/03/24 13:01 02/03/24 13:01 02/03/24 13:01 02/03/24 12:01 Oxygen Flow Rate (L/min) 2 Oxygen Delivery Method Room Air Weight: 219 lb 12.814 oz Body Mass Index (BMI) 29.1 Intake & Output: Intake and Output for Last 24 Hours 02/01/24 02/02/24 02/03/24 23:59 23:59 23:59 Intake Total 1000 / 1000 3588.75 / 3828.75 1450 / 1450 Output Total 1500 / 1900 850 / 850 Balance 1000 / 1000 2088.75 / 1928.75 600 / 600 Lab / Micro Data 02/03/24 05:03 02/03/24 05:03 Labs: Laboratory Results - last 24 hr 02/02/24 17:56: POC Glucose 188 H 02/02/24 18:48: POC Glucose 184 H 02/02/24 20:17: POC Glucose 220 H 02/03/24 00:06: POC Glucose 360 H 02/03/24 05:03: WBC 9.3, RBC 4.58 L, Hgb 12.6 L, Hct 40.0, MCV 87.3, MCH 27.5, MCHC 31.5 L, RDW Std Deviation 50.2 H, RDW Coeff of Shoshana 15.7 H, Plt Count 146 L, MPV 11.6, Immature Gran % (Auto) 0.500, Neut % (Auto) 91.6 H, Lymph % (Auto) 3.6 L, Barron % (Auto) 4.2, Eos % (Auto) 0.0, Baso % (Auto) 0.1, Absolute Neuts (auto) 8.5 H, Absolute Lymphs (auto) 0.33 L, Nucleated RBC % 0, Sodium 137, Potassium 4.9, Chloride 106, Carbon Dioxide 23.0, Anion Gap 8, BUN 15, Creatinine 1.39 H, Estim Creat Clear Calc 61.32, Est GFR (MDRD) Af Amer 65, Est GFR (MDRD) Non-Af 54 L, BUN/Creatinine Ratio 10.8, Glucose 334 H, Calcium 8.6, Ferritin 545 H, Total Bilirubin 3.60 H, AST 138 H, ALT 269 H, Alkaline Phosphatase 385 H, Total Protein 6.3 L, Albumin 2.6 L, Globulin 3.7, Albumin/Globulin Ratio 0.7 L 02/03/24 05:05: POC Glucose 311 H Micro: Microbiology 02/01/24 21:35 Mucosa - Nose SARS-CoV-2, Influenza & RSV (PCR) - Final Radiography Diagnostic Testing: Radiology Impression Endo Retro Cholangiopancreatogram 02/02/24 16:40 IMPRESSION: Fluoroscopy during ERCP. Electronically Signed: Bonifacio Su MD at 20:01 EDT , Rhythm Strip Rhythm Strip: Sinus Tach Rate: 111 Ectopy: None Physical Exam Const alert, oriented x3 and no apparent distress Constitutional Narrative: frail General Appearance: cooperative and well developed Orientation / Consciousness: confused HEENT normocephalic, head/scalp atraumatic, hearing grossly normal bilaterally and oropharynx normal Eyes PERRL and EOMs intact bilaterally Neck no lymphadenopathy and supple Lymph Lymphatic: no lymphadenopathy noted and no lymphedema noted Resp normal respiratory effort, no retractions, no use of accessory muscles and clear to auscultation bilaterally Resp Narrative: diminished breath sounds bibasally, no wheezes or crackles. on room air. Cardio regular rate, regular rhythm, S1 normal heart sound, S2 normal heart sound and no murmurs GI normal to inspection, nondistended, normoactive bowel sounds, soft to palpation, non-tender and non-distended GI Narrative: Mild tenderness to palpation in right upper quadrant. Extremity normal to inspection, full ROM, normal capillary refill, no clubbing, cyanosis or edema and no calf tenderness General Extremity: no tenderness to palpation of joints or extremities Skin Skin Narrative: has a tinge of jaundice General Skin Exam: no breakdown Neuro CN's II-XII intact bilaterally, moves all extremities, no focal motor deficits, no sensory deficits noted and deep tendon reflexes 2+ bilaterally Sensorium / Orientation: awake, alert, oriented to person and oriented to place Motor Exam: strength 5/5 throughout and general weakness Psych thought process normal, cooperative and affect normal Appearance: appropriate Assessment & Plan Assessment/Plan (1) Acute metabolic encephalopathy: (2) Choledocholithiasis: PLAN: Plan #Altered mental status * seems to have resolved. * he does have a history of previous CVA. * He did have elevated liver enzymes and so concern is that it may have been due to metabolic encephalopathy due to confusion * mentation now improved and able to communicate * #Choledocholithiasis * Abdominal imaging done on admission showed: Bile duct dilatation with common bile duct measuring 14 mm suspicious for recurrent choledocholithiasis. * Also had hyperbilirubinemia and liver enzymes were elevated. * Currently on IV ciprofloxacin and metronidazole. Of note he is allergic to penicillins. * Gastroenterology on board; ERCP shows single localized biliary stricture in the lower third of the bile duct which was dilated. There were findings of choledocholithiasis which were removed by biliary sphincterectomy and balloon extraction and a temporary stent was inserted into the ventral pancreatic duct. 1 stent was removed from the biliary tree and cells for cytology obtained. * In light of his recurrent choledocholithiasis, general surgery consulted for possible cholecystectomy. * liver biopsy also ordered per GI. * #Hyperlipidemia: on statin #Type 2 diabetes mellitus: On Lantus 53 units nightly. Insulin sliding scale. Accuchecks ACHS. #Depression: On venlafaxine. 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 Stable. On aspirin and statin. DVT prophylaxis: SCDs Charges/Coding Visit Charges Inpatient E&M: 08954 Subs Hosp L2
[2024-02-03] MEDS: Finasteride 5 MG Tablet PO (13:58)
[2024-02-03] MEDS: Tamsulosin HCl 0.4 MG Capsule PO ×2 (13:58→21:43)
[2024-02-03] MEDS: Venlafaxine XR 150 MG Capsule PO (13:58)
[2024-02-03 15:46] LABS: Bedside Glucose 227 mg/dL (74-106)
--- NOTE | 2024-02-03 16:51 | EX.PCM.PN.GI ---
Subjective Subjective Patient underwent repeat ERCP yesterday. He did have a stricture that was dilated. Biopsies taken. He had a stent exchange and he also had some mild choledocholithiasis that was treated. Objective Data Objective Data Vital Signs: Vital Signs Temp Pulse Resp BP Pulse Ox O2 Del Method O2 Flow Rate 98.7 F 66 18 118/61 93 Room Air 2 02/03/24 13:01 02/03/24 13:01 02/03/24 13:01 02/03/24 13:01 02/03/24 13:01 02/03/24 14:00 02/03/24 12:01 Oxygen Flow Rate (L/min) 2 Oxygen Delivery Method Room Air Weight: 219 lb 12.814 oz Body Mass Index (BMI) 29.1 Intake & Output: Intake and Output for Last 24 Hours 02/01/24 02/02/24 02/03/24 23:59 23:59 23:59 Intake Total 1000 / 1000 3588.75 / 3828.75 1750 / 1750 Output Total 1500 / 1900 850 / 850 Balance 1000 / 1000 2088.75 / 1928.75 900 / 900 Lab / Micro Data 02/03/24 05:03 02/03/24 05:03 Labs: Laboratory Results - last 24 hr 02/02/24 17:56: POC Glucose 188 H 02/02/24 18:48: POC Glucose 184 H 02/02/24 20:17: POC Glucose 220 H 02/03/24 00:06: POC Glucose 360 H 02/03/24 05:03: WBC 9.3, RBC 4.58 L, Hgb 12.6 L, Hct 40.0, MCV 87.3, MCH 27.5, MCHC 31.5 L, RDW Std Deviation 50.2 H, RDW Coeff of Shoshana 15.7 H, Plt Count 146 L, MPV 11.6, Immature Gran % (Auto) 0.500, Neut % (Auto) 91.6 H, Lymph % (Auto) 3.6 L, Elliott % (Auto) 4.2, Eos % (Auto) 0.0, Baso % (Auto) 0.1, Absolute Neuts (auto) 8.5 H, Absolute Lymphs (auto) 0.33 L, Nucleated RBC % 0, Sodium 137, Potassium 4.9, Chloride 106, Carbon Dioxide 23.0, Anion Gap 8, BUN 15, Creatinine 1.39 H, Estim Creat Clear Calc 61.32, Est GFR (MDRD) Af Amer 65, Est GFR (MDRD) Non-Af 54 L, BUN/Creatinine Ratio 10.8, Glucose 334 H, Calcium 8.6, Ferritin 545 H, Total Bilirubin 3.60 H, AST 138 H, ALT 269 H, Alkaline Phosphatase 385 H, Total Protein 6.3 L, Albumin 2.6 L, Globulin 3.7, Albumin/Globulin Ratio 0.7 L 02/03/24 05:05: POC Glucose 311 H 02/03/24 13:27: POC Glucose 227 H Micro: Microbiology 02/01/24 21:35 Mucosa - Nose SARS-CoV-2, Influenza & RSV (PCR) - Final Radiography Diagnostic Testing: Radiology Impression Endo Retro Cholangiopancreatogram 02/02/24 16:40 IMPRESSION: Fluoroscopy during ERCP. Electronically Signed: Bonifacio Su MD at 20:01 EDT , Rhythm Strip Rhythm Strip: Sinus Tach Rate: 111 Ectopy: None Physical Exam Const alert, oriented x3 and no apparent distress Constitutional Narrative: frail General Appearance: cooperative and well developed Orientation / Consciousness: confused HEENT normocephalic, head/scalp atraumatic, hearing grossly normal bilaterally and oropharynx normal Eyes PERRL and EOMs intact bilaterally Neck no lymphadenopathy and supple Lymph Lymphatic: no lymphadenopathy noted and no lymphedema noted Resp normal respiratory effort, no retractions, no use of accessory muscles and clear to auscultation bilaterally Resp Narrative: diminished breath sounds bibasally, no wheezes or crackles. on room air. Cardio regular rate, regular rhythm, S1 normal heart sound, S2 normal heart sound and no murmurs GI normal to inspection, nondistended, normoactive bowel sounds, soft to palpation, non-tender and non-distended GI Narrative: Mild tenderness to palpation in right upper quadrant. Extremity normal to inspection, full ROM, normal capillary refill, no clubbing, cyanosis or edema and no calf tenderness General Extremity: no tenderness to palpation of joints or extremities Skin Skin Narrative: has a tinge of jaundice General Skin Exam: no breakdown Neuro CN's II-XII intact bilaterally, moves all extremities, no focal motor deficits, no sensory deficits noted and deep tendon reflexes 2+ bilaterally Sensorium / Orientation: awake, alert, oriented to person and oriented to place Motor Exam: strength 5/5 throughout and general weakness Psych thought process normal, cooperative and affect normal Appearance: appropriate Assessment & Plan Assessment/Plan (1) Choledocholithiasis: (2) Cholestatic hepatitis: (3) Acute metabolic encephalopathy: (4) Stroke-like symptoms: (5) Weakness: PLAN: Plan 1. Common bile duct dilatation with common bile duct measuring 14 mm with elevated bilirubin liver function tests suspicious for recurrent choledocholithiasis in the setting of of a known history of cholestatic hepatitis; status post ERCP with biliary stent placement and sphincterotomy with stone removal in October 2023 - 2. Acute metabolic encephalopathy mimicking previous strokelike symptoms due to limited cognitive reserve . Patient does have an appointment to see neurology next month. 3. History of CVA with residual left hemiparesis - Noted. 4. Recent admission here from January 25, 2024 to January 26, 2024 for treatment of metabolic encephalopathy with MRI positive for old bilateral lacunar infarcts and chronic ischemic changes - Noted. 5. Hyperlipidemia - Resume statin once patient is ERCP is completed. 02/03/24-patient underwent liver biopsy today. He does not have any abdominal pain and is tolerating a diet. Re : ERCP procedure for Max Markham This procedure was performed on January. My impressions and recommendations are as follows: Impressions : - A single localized biliary stricture was found in the lower third of the main bile duct. The stricture was indeterminate. - A single localized biliary stricture was found in the lower third of the main bile duct. The stricture was indeterminate. - The biliary system were dilated, secondary to a stricture. - Choledocholithiasis was found. Complete removal was accomplished by biliary sphincterotomy and balloon extraction. - One temporary stent was placed into the ventral pancreatic duct. - A biliary sphincterotomy was performed. - The biliary tree was swept. - One stent was removed from the biliary tree. - Fluid aspiration was performed. - Cells for cytology obtained in the lower third of the main duct. - Biopsy was performed in the lower third of the main duct. - Lithotripsy was successful. - The biliary tree was swept. Cholestatic hepatitis with jaundice is multifactorial at this time. He did have choledocholithiasis but does with bile duct. Concerned about a cholestatic hepatitis could be from medications or viral infection. Await liver biopsy results. . Charges/Coding Visit Charges Inpatient E&M: 56743 Subs Hosp L3
--- NOTE | 2024-02-03 18:13 | EX.PCM.CON.S ---
Assessment & Plan Assessment/Plan (1) Choledocholithiasis: PLAN: Patient is a 68-year-old male with a history of recurrent choledocholithiasis despite 2 MRCPs and 2 ultrasounds of the abdomen demonstrating no evidence of gallstones within the gallbladder. In conversations with gastroenterology they note that patient does have some stricturing of his distal common bile duct, but do not suspect any underlying malignancy and do confirm findings of choledocholithiasis at 2 separate occasions. Patient's most recent CT imaging of his brain did not show any acute infarcts and thus his last CVA is now 3 months past. On exam today he appears to be at his reported baseline and his confirms this. I held a lengthy conversation with patient and his regarding recommendations to pursue cholecystectomy. I shared with them that if I did not have the benefit of his history of 2 bouts of choledocholithiasis I would not necessarily be inclined to perform cholecystectomy, but this history does exist. Thus, I agree with proceeding for laparoscopic cholecystectomy as the best means of preventing future episodes. The relevant anatomy was discussed with hand drawings to facilitate the underlying pathophysiology. I also discussed the postoperative recovery and any relevant restrictions. Mrs. Woodson is very apprehensive about proceeding initially because of her 's underlying comorbidities and neurologic status but after answering her questions she seems to be at ease with this decision. We will plan for laparoscopic cholecystectomy with intraoperative cholangiogram tomorrow 02/04/2024. Patient should be held n.p.o. past midnight. HPI Consult Data Date of Consult: 02/03/24 HPI Narrative Reason for Consultation: Recurrent choledocholithiasis HPI Narrative: OLGA WOODSON, is a 68 M, with a past history of multiple CVA (including thalamic infarct October 2023), type 2 diabetes, choledocholithiasis, tobacco use with COPD, and gastroparesis who was admitted on 02/02/2024 with signs of altered mental status including slurred speech and right arm weakness as well as complaints of bloating. He underwent emergent CT imaging of his brain and radiology read this as no acute change. Patient's provides much of the history in this encounter and states that her had returned home from a workout at [employer] when he began complaining of bloating and inability to have a bowel movement. She states he went to the bedroom the day prior to his ER evaluation, lie down, and then she could hear him vomiting. After the onset of the symptoms she states her was unable to stand and was very confused. She shares that the symptoms were very similar to how he had acted just 1 week prior on 01/25/2024 where he was also given and all cleared by neurology. Regarding patient's GI complaints, ultrasound imaging was performed of the abdomen and demonstrated a markedly dilated common bile duct to 14 mm. On 02/02/2024 patient underwent ERCP with sphincterotomy and stent placement by GI where he was found to have recurrent choledocholithiasis. Surgery is asked to evaluate for possible cholecystectomy. Mrs. Woodson shares that her has lost 30 pounds since August which has been both intentional and unintentional. She shares a component of this weight loss has simply been Mr. Woodson watching what he is eating, but also some dysphagia complaints. She confirms the medical record that her underwent ERCP both in October and then in December for spyglass biopsy. Mr. Woodson's only prior surgical history is a shoulder operation. [facility] Medical History Abdominal discomfort Choledocholithiasis Common bile duct dilation COPD (chronic obstructive pulmonary disease) CPAP (continuous positive airway pressure) dependence Diabetes Elevated liver transaminase level Gastroparesis GERD (gastroesophageal reflux disease) History of diabetes mellitus History of multiple cerebrovascular accidents (CVAs) History of stroke Jaundice Non-smoker Sleep apnea Slurred speech Stroke-like symptoms Stroke/cerebrovascular accident Unintentional weight loss of 1-2% body weight within 1 week Home Medications insulin glargine 100 unit/mL (3 mL) subcutaneous pen (Lantus Solostar U-100 Insulin) 53 units subcut QHS DABETES 02/27/15 [History Last Taken 01/24/24] insulin lispro 100 unit/mL subcutaneous pen (Humalog KwikPen (U-100) Insulin) 22 unit subcut TID DIABETES 02/27/15 [History Last Taken 01/25/24] fluticasone fur. 100 mcg-umeclid 62.5 mcg-vilant 25 mcg inhalat.powder (Trelegy Ellipta) 1 inh inhalation DAILY SHORTNESS OF BREATH/WHEEZING 09/05/23 [History Last Taken 01/05/24] venlafaxine 150 mg capsule,extended release 24 hr 150 mg PO DAILY DEPRESSION 09/05/23 [History Last Taken 01/25/24] atorvastatin 80 mg tablet 80 mg PO QHS CHOLESTEROL #30 tabs 09/07/23 [Rx Last Taken 01/24/24] aspirin 81 mg chewable tablet 81 mg PO DAILY HEART HEALTH 11/02/23 [History Last Taken 01/24/24] finasteride 5 mg tablet 5 mg PO DAILY 01/05/24 [History Last Taken 01/25/24] ondansetron HCl 8 mg tablet 8 mg PO Q8H PRN nausea and vomiting #20 tabs 01/07/24 [Rx Last Taken 01/11/24] lactulose 10 gram/15 mL (15 mL) oral solution 10 g PO DAILY PRN constipation 01/25/24 [History Last Taken 01/11/24] tamsulosin 0.4 mg capsule 0.4 mg PO BID 01/25/24 [History Last Taken 01/25/24] Allergy/AdvReac Type Severity Reaction Status Date / Time Penicillins Allergy Intermediate Hives Verified 02/01/24 20:35 Family History Other Alzheimer disease Breast cancer Thyroid cancer Surgical History History of ear surgery Social History household members: spouse housing: house Smoking Status: Current every day smoker tobacco type: cigarettes Tobacco: How many years used: 50 how long ago did patient quit smoking: alcohol intake: never substance use type: does not use Physical Exam Const alert and oriented x3 Constitutional Narrative: Although patient appears oriented he defers his answering to his Resp normal respiratory effort GI GI Narrative: Overweight, no scars, soft, no tenderness to palpation. Negative Hagan sign. Lab / Micro Data 02/03/24 05:03 02/03/24 05:03 Labs: Laboratory Results - last 24 hr 02/02/24 17:56: POC Glucose 188 H 02/02/24 18:48: POC Glucose 184 H 02/02/24 20:17: POC Glucose 220 H 02/03/24 00:06: POC Glucose 360 H 02/03/24 05:03: WBC 9.3, RBC 4.58 L, Hgb 12.6 L, Hct 40.0, MCV 87.3, MCH 27.5, MCHC 31.5 L, RDW Std Deviation 50.2 H, RDW Coeff of Shoshana 15.7 H, Plt Count 146 L, MPV 11.6, Immature Gran % (Auto) 0.500, Neut % (Auto) 91.6 H, Lymph % (Auto) 3.6 L, Bullock % (Auto) 4.2, Eos % (Auto) 0.0, Baso % (Auto) 0.1, Absolute Neuts (auto) 8.5 H, Absolute Lymphs (auto) 0.33 L, Nucleated RBC % 0, Sodium 137, Potassium 4.9, Chloride 106, Carbon Dioxide 23.0, Anion Gap 8, BUN 15, Creatinine 1.39 H, Estim Creat Clear Calc 61.32, Est GFR (MDRD) Af Amer 65, Est GFR (MDRD) Non-Af 54 L, BUN/Creatinine Ratio 10.8, Glucose 334 H, Calcium 8.6, Ferritin 545 H, Total Bilirubin 3.60 H, AST 138 H, ALT 269 H, Alkaline Phosphatase 385 H, Total Protein 6.3 L, Albumin 2.6 L, Globulin 3.7, Albumin/Globulin Ratio 0.7 L 02/03/24 05:05: POC Glucose 311 H 02/03/24 13:27: POC Glucose 227 H Rhythm Strip Rhythm Strip: Sinus Tach Rate: 111 Ectopy: None Imaging Radiology Impression Endo Retro Cholangiopancreatogram 02/02/24 16:40 IMPRESSION: Fluoroscopy during ERCP. Electronically Signed: Bonifacio Su MD at 20:01 EDT , Charges/Coding Visit Charges Inpatient E&M: 59977 Init Hosp L2
[2024-02-03 19:02] LABS: Bedside Glucose 368 mg/dL (74-106)
[2024-02-03] MEDS: Insulin Glargine-YFGN 100 UNIT/ML Pen 10 UNIT SC (21:41)
[2024-02-04] VITALS (11 sets, daily range): BP systolic 95–183; BP diastolic 45–94; PULSE 64–81; RESP 15–18; TEMP 36.3–37.4; O2SAT 92–100; BMI 28.8; BMI 28.6
--- NOTE | 2024-02-04 | GALL_PTH ---
PATIENT: OLGA RODRIGUEZ LOC: [facility] U#:[id number] AGE/SX: 68/M ROOM: [facility] RE02/02/[address]: Dr. Vannesa Pulido MD : 1955 BED: 1 DIS: 02/06/2024 SPEC #: [id number] RECD: 02/06/24 07:23 STATUS: WILBUR LIU #: [id number] [place]: 02/04/24 00:[address]: Walter Marsh DEPT: SURGICAL PATHOLOGY RECD BY: Darrion Main ENTERED: 02/06/24 10:36 SP TYPE: GALLBLADDE OTHR DR: DO Dr. Juan Dao MD Dr. Michael Bortz, MD Dr. Nana Yaa Koram, MD Dr. William Lago, MD Tissues: Gallbladder, NOS Procedures: Surgery Specimen Level III Comments: @ Ordering doctor for SUIII edited from to @ by GOOD at 02/06/24 1559 @ Submitting doctor edited from to @ by GOOD at 02/06/24 1559 HEADER OPERATION: Laparoscopic, Cholecystectomy with IOC PRE-OP DIAGNOSIS: Choledocholithiasis TISSUE SUBMITTED: Gallbladder MICROSCOPIC DIAGNOSIS Gallbladder, cholecystectomy: Chronic cholecystitis with focal acute cholecystitis. / 02/07/24 MICROSCOPIC DESCRIPTION Slides are reviewed. GROSS DESCRIPTION Received is one container labeled with the patient's name and designated gallbladder. The specimen consists of a gallbladder measuring 8.0 cm in length and up to 4.0 cm in diameter. The external surface is pink-macias, smooth and glistening for the most part. Focally it is granular, hemorrhagic and contains cautery artifact. The gallbladder lumen is collapsed and no bile is noted. The gallbladder mucosa is focally ulcerated. No stones are identified in the container or in the gallbladder. The mucosa is bile-stained and without any mass lesions. The gallbladder wall measures up to 0.3cm in thickness. [employer] sections from the gallbladder and the cystic duct are submitted in one cassette. / SJ: 02/06/24 TC:2 CPT: 56987
[2024-02-04] MEDS: Ciprofloxacin 400 MG/200 ML BAG 200 MG IV ×3 (00:01→21:02)
[2024-02-04] MEDS: Insulin Lispro 100 UNIT/ML INSULN.PEN SC ×3 (00:01→16:43)
[2024-02-04 00:06] LABS: Bedside Glucose 414 mg/dL (74-106)
[2024-02-04 00:23] LABS: Bedside Glucose 335 mg/dL (74-106)
--- NOTE | 2024-02-04 03:05 | EKG12_ITS ---
Test Reason : PRE OP Blood Pressure : / mmHG Vent. Rate : 068 BPM Atrial Rate : 068 BPM P-R Int : 126 ms QRS Dur : 060 ms QT Int : 390 ms P-R-T Axes : 030 -07 056 degrees QTc Int : 414 ms Sinus rhythm with Premature atrial complexes Otherwise normal ECG When compared with ECG of 01-FEB-2024 21:07, Premature atrial complexes are now Present Vent. rate has decreased BY 43 BPM Confirmed by ELIUD LAMBERT, CHANDRIKA ([id number]), visual effects editor UMANG TURNER ([id number]) on 02/07/2024 6:55:51 AM Referred By: Confirmed By:CHANDRIKA KLINE MD
[2024-02-04 04:08] LABS: AFP, Tumor Marker 1.9 ng/mL (0.0-8.4); Carbohydrate AG 19-9 437 U/mL (0-35); Carcinoembryonic Antigen 4.3 ng/mL (0.0-4.7)
[2024-02-04] MEDS: metroNIDAZOLE 500 MG/100 ML BAG 100 MG IV ×3 (04:51→22:32)
[2024-02-04 06:12] LABS: Absolute Neutrophil Count 7.2 X10^3/uL (2.0-7.7); Basophil# 0.04 X10^3/uL; Basophil% 0.4 % (0-1); Eosinophil# 0.16 X10^3/uL; Eosinophils% 1.8 % (0-5); Hematocrit 40.8 % (40-54); Hemoglobin 13.2 g/dL (13.0-16.5); Mean Corp Hgb Conc 32.4 g/dL (32-36); Mean Corpuscular Hgb 27.9 pg (27.0-32.0); Mean Corpuscular Volume 86.3 fL (80-94); Mean Platelet Vol. 12.5 fl (6.2-12.0); Monocyte# 0.63 X10^3/uL; Monocyte% 7.1 % (0-10); NRBC Flagged by Analyzer 0 % (0-5); Neutrophil # 7.24 X10^3/uL (2.7-7.7); Neutrophil % 81.4 % (47-70); Platelet Count 163 K/mm3 (150-450); RBC Distribution Width CV 15.6 % (11.6-14.6); RBC Distribution Width SD 49.3 fl (35.1-43.9); Red Blood Count 4.73 M/mm3 (4.6-6.2); White Blood Count 8.9 K/mm3 (4.4-11.0)
[2024-02-04 06:51] LABS: ALB/GLOB Ratio 0.7 RATIO (0.9-2.4); AST(SGOT) 88 U/L (15-37); Alanine Aminotransfer ALT/SGPT 209 U/L (16-61); Albumin, Serum 2.7 g/dL (3.2-5.0); Alkaline Phosphatase 348 U/L (45-117); Anion Gap 5 (5-15); BUN 17 mg/dL (7-18); Calcium,Total 8.8 mg/dL (8.5-10.1); Chloride 110 mmol/L (98-107); Creatinine, Serum 1.31 mg/dL (0.70-1.30); EST Glomerular Filtration Rate 58 mL/min (>60); Est Glom Filt Rate - Afr Amer 70 mL/min (>60); Globulin 3.7 g/dL (2.2-4.2); Glucose 259 mg/dL (74-106); Potassium 3.9 mmol/L (3.5-5.1); Protein, Total 6.4 g/dL (6.4-8.2); Sodium Level 140 mmol/L (136-145)
--- NOTE | 2024-02-04 07:00 | RAD_ITS ---
CLINICAL HISTORY: Male, 68 years old. Right upper quadrant pain, nausea, cholecystectomy PROCEDURE: CHOLANGIOGRAM - intraoperative CONSENT: Informed consent obtained SEDATION: General No fluoroscopy, 2 separate cine loops obtained, one of 84 images the other of 60 images Placement of the catheter and the procedure were performed by: Walter Marsh MD Fluoroscopy was provided by Kiki Andre, who was present in the room time of the procedure. TECHNIQUE: (All elements of maximal sterile barrier technique followed, including US elements as applicable) The plant inspector film demonstrates both a biliary and pancreatic ductal stent. After cholecystectomy, the cystic duct was cannulized, and contrast injected into the biliary tree. The cystic duct is serpiginous and dilated. There is also evidence of dilatation of the biliary tree. On cine loop #1, with 84 films, the contrast stops in the mid common bile duct. On the second cine loop, contrast fills the biliary stent is noted within the duodenum. No extravasation of contrast is suspected bile leak RAD/Cholangiogram/ O R,Initial IMPRESSION: No evidence of bile leak Dilated cystic duct, intra and extrahepatic biliary ducts There is eventually flow of contrast into the biliary stent into the duodenum. Electronically Signed: Júnior Parker MD at 15:16 EDT ,
[2024-02-04 07:18] LABS: Bedside Glucose 227 mg/dL (74-106)
--- NOTE | 2024-02-04 09:50 | PN_ITS ---
Subjective Subjective Patient seen and examined. His was by his bedside. He complained of lower abdominal pain. He said the abdominal pain was relieved by bowel movement. Systems otherwise negative. He is due for cholecystectomy today. Objective Data Objective Data Vital Signs: Vital Signs Temp Pulse Resp BP Pulse Ox O2 Del Method O2 Flow Rate 98.0 F 64 15 132/53 H 95 Room Air 2 02/04/24 04:41 02/04/24 04:41 02/04/24 04:41 02/04/24 04:41 02/04/24 04:41 02/04/24 07:40 02/03/24 12:01 Oxygen Flow Rate (L/min) 2 Oxygen Delivery Method Room Air Weight: 217 lb 6.012 oz Body Mass Index (BMI) 28.6 Intake & Output: Intake and Output for Last 24 Hours 02/02/24 02/03/24 02/04/24 23:59 23:59 23:59 Intake Total 3588.75 / 3828.75 2750 / 2950 600 / 600 Output Total 1500 / 1900 1050 / 1250 1000 / 1000 Balance 2088.75 / 1928.75 1700 / 1700 -400 / -400 Lab / Micro Data 02/04/24 05:37 02/04/24 05:37 Labs: Laboratory Results - last 24 hr 02/02/24 05:55: Tumor Marker AFP 1.9, Carcinoembryonic Ag 4.3, CA 19-9 Antigen 4 37 H 02/03/24 13:27: POC Glucose 227 H 02/03/24 18:42: POC Glucose 368 H 02/03/24 21:38: POC Glucose 414 H 02/03/24 23:59: POC Glucose 335 H 02/04/24 05:37: WBC 8.9, RBC 4.73, Hgb 13.2, Hct 40.8, MCV 86.3, MCH 27.9, MCHC 32.4, RDW Std Deviation 49.3 H, RDW Coeff of Shoshana 15.6 H, Plt Count 163, MPV 12.5 H, Immature Gran % (Auto) 0.300, Neut % (Auto) 81.4 H, Lymph % (Auto) 9.0 L, [place] % (Auto) 7.1, Eos % (Auto) 1.8, Baso % (Auto) 0.4, Absolute Neuts (auto) 7.2, Absolute Lymphs (auto) 0.80 L, Nucleated RBC % 0, Sodium 140, Potassium 3.9, Chloride 110 H, Carbon Dioxide 25.0, Anion Gap 5, BUN 17, Creatinine 1.31 H , Estim Creat Clear Calc 65.90, Est GFR (MDRD) Af Amer 70, Est GFR (MDRD) Non-Af 58 L, BUN/Creatinine Ratio 13.0, Glucose 259 H, Calcium 8.8, Total Bilirubin 1.10 H, AST 88 H, ALT 209 H, Alkaline Phosphatase 348 H, Total Protein 6.4, Albumin 2.7 L, Globulin 3.7, Albumin/Globulin Ratio 0.7 L 02/04/24 06:57: POC Glucose 227 H Micro: Microbiology 02/01/24 21:35 Mucosa - Nose SARS-CoV-2, Influenza & RSV (PCR) - Final Rhythm Strip Rhythm Strip: Sinus Tach Rate: 111 Ectopy: None Physical Exam Const alert, oriented x3 and no apparent distress Constitutional Narrative: frail General Appearance: cooperative and well developed Orientation / Consciousness: confused HEENT normocephalic, head/scalp atraumatic, hearing grossly normal bilaterally and oropharynx normal Eyes PERRL and EOMs intact bilaterally Neck no lymphadenopathy and supple Lymph Lymphatic: no lymphadenopathy noted and no lymphedema noted Resp normal respiratory effort, no retractions, no use of accessory muscles and clear to auscultation bilaterally Resp Narrative: diminished breath sounds bibasally, no wheezes or crackles. on room air. Cardio regular rate, regular rhythm, S1 normal heart sound, S2 normal heart sound and no murmurs GI normal to inspection, nondistended, normoactive bowel sounds, soft to palpation, non-tender and non-distended GI Narrative: suprapubic tenderness, with palpable bladder Extremity normal to inspection, full ROM, normal capillary refill, no clubbing, cyanosis or edema and no calf tenderness General Extremity: no tenderness to palpation of joints or extremities Skin General Skin Exam: no breakdown Neuro CN's II-XII intact bilaterally, moves all extremities, no focal motor deficits, no sensory deficits noted and deep tendon reflexes 2+ bilaterally Sensorium / Orientation: awake, alert, oriented to person and oriented to place Motor Exam: strength 5/5 throughout and general weakness Psych thought process normal, cooperative and affect normal Appearance: appropriate Assessment & Plan Assessment/Plan (1) Acute metabolic encephalopathy: (2) Choledocholithiasis: PLAN: Plan #Altered mental status * resolved. * * #Choledocholithiasis * Abdominal imaging done on admission showed: Bile duct dilatation with common bile duct measuring 14 mm suspicious for recurrent choledocholithiasis. * Also had hyperbilirubinemia and liver enzymes were elevated. * Currently on IV ciprofloxacin and metronidazole. Of note he is allergic to penicillins. * Gastroenterology on board; ERCP shows single localized biliary stricture in the lower third of the bile duct which was dilated. There were findings of choledocholithiasis which were removed by biliary sphincterectomy and balloon extraction and a temporary stent was inserted into the ventral pancreatic duct. 1 stent was removed from the biliary tree and cells for cytology obtained. * In light of his recurrent choledocholithiasis, general surgery consulted for possible cholecystectomy. * to have cholecystectomy today by general surgery * had liver biopsy done yesterday. * #Urinary retention in the setting of BPH * Bladder is distended and palpable. He is suprapubic tenderness. * Will insert Ramirez catheter. Already on Flomax and finasteride. * #Hyperlipidemia: on statin #Type 2 diabetes mellitus: On Lantus 53 units nightly. Insulin sliding scale. Accuchecks ACHS. #Depression: On venlafaxine. 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 Stable. On aspirin and statin. DVT prophylaxis: SCDs Charges/Coding Visit Charges Inpatient E&M: 17349 Subs Hosp L2
[2024-02-04] MEDS: Bupiv/Epi 0.25% 30 ML Vial (11:20)
--- NOTE | 2024-02-04 11:20 | OP.PCM_ITS ---
Report of Operation Date of Procedure: 02/04/24 Pre-Operative Diagnosis: Recurrent choledocholithiasis Post-Operative Diagnosis: 1. Recurrent choledocholithiasis 2. Chronic cholecystitis Surgery/Procedure Performed:: Laparoscopic cholecystectomy with intraoperative cholangiography Surgeon: Walter Marsh quality systems specialist: Dominique Miranda Type of Anesthesia: General/Supplemental Anesthesiologist: Ra Lee Specimen's removed: Gallbladder Estimated Blood Loss (mL): 100 Description of Procedure: After proper identification in the preoperative holding area the patient was brought to the operating room where he was positioned supine on the operating room table. Preoperatively SCDs were connected. Antibiotics had been previously administered as part of a continuous administration on the floor. General anesthesia was then induced. Patient's abdomen was prepped and draped in usual sterile fashion. A formal timeout was conducted to confirm both patient and the procedure. Procedure was begun with a supraumbilical incision which was extended deeply down to the level of the fascia. The fascia was elevated and incised, as well as the peritoneum. A finger sweep was performed to ensure there were no underlying adhesions and a 12 mm balloon trocar was inserted. Pneumoperitoneum was established at 15 mmHg. Three additional trocars (all 5 mm) were placed in the epigastrium and in the right upper quadrant. Inspection of the peritoneum revealed no inadvertent injury to the viscera below. The gallbladder was not able to be visualized immediately as it appeared shrouded and adherent omentum. A period of adhesiolysis ensued that was greater than 30 minutes in length to try to delicately remove this omentum from the anterior surface of the gallbladder without causing any significant capsular disruptions to patient's friable hepatic parenchyma. Any capsular tears were promptly cauterized. Ultimately the gallbladder was exposed and the gallbladder fundus was then grasped and elevated cephalad. Then, using careful dissection the peritoneum was opened and the structures of the hepatocystic triangle were delineated. This proved more challenging than usual given the extent of patient's inflammation around the cystic duct takeoff and a crossing vessel that appeared to be a branch of the cystic artery. At 1 point this vessel began bleeding and responded to manual pressure but continued bleeding once the pressure was lifted so I placed 2 hemostatic clips across this vessel and this resulted in hemostasis. Additional careful dissection was used to try to develop the base of the gallbladder but, despite this care and inadvertent rent was made in the gallbladder wall resulting in spillage of some clear drainage from the gallbladder body. This was promptly suctioned free of the peritoneum with the suction mobile paint specialist device. Once circumferential dissection was made about the gallbladder neck I elected to use a Tapia clamp to obtain a cholangiogram to establish our anatomy. Under fluoroscopy a cholangiogram was then obtained showing a standard length cystic duct flowing into a common bile duct with unobstructed antegrade flow of contrast into the duodenum via a common bile duct stent. There was also retrograde flow through a moderately dilated common hepatic duct into the right and left hepatic ducts. Satisfied with this result, the cholangiocatheter was withdrawn and the proximal cystic duct was sealed with Hem-o-maggie clips (the patient's subxiphoid port site was upsized to a 12 mm port under laparoscopic visualization to accommodate the larger clip size) and the cystic duct was completely transected. Some additional limited dissection was used to define the cystic artery and the same process was used for the cystic artery. The gallbladder was then removed from the gallbladder fossa with the use of electrocautery. Selective electrocautery was used to obtain hemostasis in the gallbladder fossa. The gallbladder was placed in an Endo Catch bag and removed from the peritoneum. Morison's pouch was irrigated and the effluent was suctioned free of the peritoneum. Hemostasis was again confirmed. Closure of the two 12 mm ports was undertaken with #1 PDS using Shayne Huerta suture passer under laparoscopic visualization. Pneumoperitoneum was evacuated and the fascia was injected with additional local anesthetic. A total of 30 mL of anesthetic was injected at the port sites for postoperative pain control. The skin of each port site was then closed in subcuticular fashion using 4-0 Monocryl. Steri-Strips and bandages were applied as dressings. Patient tolerated the procedure well without any apparent complications. On emergence from their anesthetic the patient was taken to PACU for ongoing recovery. Grafts/Implants Used: None Complications None Admit VTE Documentation VTE Mechan Device Prophylaxis: SCD's Procedures Digestive 40xxx-49xxx: 91138 Laparo cholecystectomy/graph
[2024-02-04] MEDS: Pantoprazole Sodium 40 MG in 0.9% Normal Saline (100mL MB+) 100 ML 330 MG IV (12:23)
[2024-02-04] MEDS: Venlafaxine XR 150 MG Capsule PO (12:34)
[2024-02-04] MEDS: Finasteride 5 MG Tablet PO (12:34)
[2024-02-04] MEDS: Tamsulosin HCl 0.4 MG Capsule PO ×2 (12:34→21:11)
[2024-02-04 12:54] LABS: Bedside Glucose 281 mg/dL (74-106)
[2024-02-04] MEDS: hydrALAZINE 20 MG/ML Vial 10 MG IV (15:17)
[2024-02-04 17:06] LABS: Bedside Glucose 323 mg/dL (74-106)
[2024-02-04] MEDS: 0.9% Saline Lock 10 ML Syringe IV (21:02)
[2024-02-04] MEDS: Insulin Glargine-YFGN 100 UNIT/ML Pen 10 UNIT SC (21:20)
[2024-02-04 22:28] LABS: Bedside Glucose 362 mg/dL (74-106)
[2024-02-05 00:11] VITALS: O2SAT 90
[2024-02-05 00:16] VITALS: BP 151/70; PULSE 76; RESP 17; TEMP 36.4; O2SAT 94
[2024-02-05] MEDS: Insulin Lispro 100 UNIT/ML INSULN.PEN SC ×5 (00:18→22:55)
[2024-02-05 00:41] LABS: Bedside Glucose 334 mg/dL (74-106)
[2024-02-05 04:07] VITALS: BP 145/60; PULSE 88; RESP 18; TEMP 36.6; O2SAT 95
[2024-02-05 06:00] VITALS: BMI 28.8
[2024-02-05] MEDS: 0.9% Saline Lock 10 ML Syringe IV (06:02)
[2024-02-05] MEDS: metroNIDAZOLE 500 MG/100 ML BAG 100 MG IV ×3 (06:02→22:54)
[2024-02-05 06:34] LABS: Bedside Glucose 266 mg/dL (74-106)
[2024-02-05 08:00] VITALS: BP 134/76; PULSE 81; RESP 18; TEMP 36.1; O2SAT 93
[2024-02-05 08:43] LABS: Absolute Lymphocyte Count 1.04 X10^3/uL (0.83-4.51); Absolute Neutrophil Count 9.6 X10^3/uL (2.0-7.7); Basophil# 0.04 X10^3/uL; Basophil% 0.3 % (0-1); Eosinophil# 0.39 X10^3/uL; Eosinophils% 3.3 % (0-5); Hematocrit 42.3 % (40-54); Lymphocyte # 1.04 X10^3/ul (0.83-4.51); Lymphocyte % 8.8 % (19-41); Mean Corp Hgb Conc 33.1 g/dL (32-36); Mean Corpuscular Hgb 28.2 pg (27.0-32.0); Mean Corpuscular Volume 85.3 fL (80-94); Mean Platelet Vol. 11.8 fl (6.2-12.0); Monocyte# 0.75 X10^3/uL; Monocyte% 6.3 % (0-10); NRBC Flagged by Analyzer 0 % (0-5); Neutrophil # 9.62 X10^3/uL (2.7-7.7); Platelet Count 183 K/mm3 (150-450); RBC Distribution Width CV 15.7 % (11.6-14.6); RBC Distribution Width SD 49.1 fl (35.1-43.9); Red Blood Count 4.96 M/mm3 (4.6-6.2); White Blood Count 11.9 K/mm3 (4.4-11.0)
[2024-02-05 09:00] LABS: ALB/GLOB Ratio 0.7 RATIO (0.9-2.4); AST(SGOT) 69 U/L (15-37); Alanine Aminotransfer ALT/SGPT 178 U/L (16-61); Albumin, Serum 2.8 g/dL (3.2-5.0); Alkaline Phosphatase 314 U/L (45-117); Anion Gap 6 (5-15); BUN 14 mg/dL (7-18); BUN/Creat Ratio 12.3 RATIO (10-20); Chloride 101 mmol/L (98-107); Creatinine, Serum 1.14 mg/dL (0.70-1.30); EST Glomerular Filtration Rate 68 mL/min (>60); Est Glom Filt Rate - Afr Amer 82 mL/min (>60); Estimated Creatinine Clearance 75.76 ml/min; Globulin 4.1 g/dL (2.2-4.2); Glucose 268 mg/dL (74-106); Potassium 3.5 mmol/L (3.5-5.1); Protein, Total 6.9 g/dL (6.4-8.2); Sodium Level 135 mmol/L (136-145)
[2024-02-05] MEDS: Ciprofloxacin 400 MG/200 ML BAG 200 MG IV ×2 (09:01→20:56)
[2024-02-05] MEDS: Pantoprazole Sodium 40 MG in 0.9% Normal Saline (100mL MB+) 100 ML 330 MG IV (09:01)
[2024-02-05] MEDS: Tamsulosin HCl 0.4 MG Capsule PO ×2 (09:06→20:56)
[2024-02-05] MEDS: Venlafaxine XR 150 MG Capsule PO (09:07)
[2024-02-05] MEDS: Finasteride 5 MG Tablet PO (09:07)
[2024-02-05] MEDS: oxyCODONE 5 MG Tablet PO (09:30)
[2024-02-05] MEDS: Acetaminophen 500 MG Tablet PO (09:30)
--- NOTE | 2024-02-05 10:49 | PN.SURG_ITS ---
Subjective Subjective Patient seen and examined during AM rounds. I was notified by patient's nurse prior to rounds that he was experiencing significant abdominal pain. On my arrival to the room patient initially simply gestures rather than speaking and his states that he has partially lost his voice. However, when prompted patient is able to talk. He gestures to his umbilical incision as being the most tender area on his abdomen. Objective Data Objective Data Vital Signs: Vital Signs Temp Pulse Resp BP Pulse Ox O2 Del Method O2 Flow Rate 97.0 F L 81 18 134/76 H 93 Room Air 2 02/05/24 08:00 02/05/24 08:00 02/05/24 08:00 02/05/24 08:00 02/05/24 08:00 02/05/24 08:00 02/05/24 07:49 Oxygen Flow Rate (L/min) 2 Oxygen Delivery Method Room Air Weight: 218 lb 7.649 oz Body Mass Index (BMI) 28.8 Intake & Output: Intake and Output for Last 24 Hours 02/03/24 02/04/24 02/05/24 23:59 23:59 23:59 Intake Total 2750 / 2950 2710 / 3070 670 / 670 Output Total 1050 / 1250 6200 / 7075 1725 / 1725 Balance 1700 / 1700 -3490 / -4005 -1055 / -1055 Lab / Micro Data 02/05/24 08:20 02/05/24 08:20 Labs: Laboratory Results - last 24 hr 02/04/24 12:32: POC Glucose 281 H 02/04/24 16:42: POC Glucose 323 H 02/04/24 21:19: POC Glucose 362 H 02/05/24 00:05: POC Glucose 334 H 02/05/24 06:04: POC Glucose 266 H 02/05/24 08:20: WBC 11.9 H, RBC 4.96, Hgb 14.0, Hct 42.3, MCV 85.3, MCH 28.2, MCHC 33.1, RDW Std Deviation 49.1 H, RDW Coeff of [place]oshana 15.7 H, Plt Count 183, MPV 11.8, Immature Gran % (Auto) 0.300, Neut % (Auto) 81.0 H, Lymph % (Auto) 8.8 L, [place] % (Auto) 6.3, Eos % (Auto) 3.3, Baso % (Auto) 0.3, Absolute Neuts (auto) 9.6 H, Absolute Lymphs (auto) 1.04, Nucleated RBC % 0, Sodium 135 L, Potassium 3.5, Chloride 101, Carbon Dioxide 28.0, Anion Gap 6, BUN 14, Creatinine 1.14, Estim Creat Clear Calc 75.76, Est GFR (MDRD) Af Amer 82, Est GFR (MDRD) Non-Af 68, BUN/Creatinine Ratio 12.3, Glucose 268 H, Calcium 9.0, Total Bilirubin 1.20 H, AST 69 H, ALT 178 H, Alkaline Phosphatase 314 H, Total Protein 6.9, Albumin 2.8 L, Globulin 4.1, Albumin/Globulin Ratio 0.7 L Micro: Microbiology 02/01/24 21:35 Mucosa - Nose SARS-CoV-2, Influenza & RSV (PCR) - Final Radiography Diagnostic Testing: Radiology Impression Cholangiogram 02/04/24 07:00 IMPRESSION: No evidence of bile leak Dilated cystic duct, intra and extrahepatic biliary ducts There is eventually flow of contrast into the biliary stent into the duodenum. Electronically Signed: Júnior Parker MD at 15:16 EDT , Rhythm Strip Rhythm Strip: Sinus Tach Rate: 111 Ectopy: None Physical Exam Const oriented x3 Constitutional Narrative: Mild distress from pain GI GI Narrative: Nondistended, operative dressings remain intact without evidence of strikethrough. Patient's abdomen is mildly distended and there is anita- incisional tenderness about patient's supraumbilical and subxiphoid port sites. There is minimal to no tenderness of the area about patient's right upper quadrant port sites. Bladder / Kidney Exam: catheter in place Assessment & Plan Assessment/Plan (1) Choledocholithiasis: PLAN: Patient is a 68-year-old male with a history of recurrent choledocholithiasis despite 2 MRCPs and 2 ultrasounds of the abdomen demonstrating no evidence of gallstones within the gallbladder. In conversations with gastroenterology they note that patient does have some stricturing of his distal common bile duct, but do not suspect any underlying malignancy and do confirm findings of choledocholithiasis at 2 separate occasions. Patient is now status post cholecystectomy and intraoperative cholangiography 02/04/2024. Intraoperative findings confirmed chronic cholecystitis. Patient overall is recovering as expected with some tenderness about his 12 mm port sites?this is likely owing to the fascial closure used at the time of the operation to mitigate patient's risk for hernia. After confirming he does not have any clear contraindications for NSAID therapy I have advanced his diet and began some ibuprofen. It is my anticipation that this should help significantly in alleviating this discomfort. Patient is able to tolerate this diet advancement and experience improved pain control he would be eligible for discharge from a surgical standpoint. ? Follow-up tolerance of advancement to low-fat diet ? Follow-up pain control Charges/Coding Visit Charges Inpatient E&M: 61061 Subs Hosp L2
[2024-02-05 12:02] LABS: Bedside Glucose 303 mg/dL (74-106)
[2024-02-05] MEDS: Ibuprofen 400 MG Tablet PO ×2 (12:56→16:38)
--- NOTE | 2024-02-05 13:16 | PN_ITS ---
Subjective Subjective Patient seen and examined. His was by his bedside. He is POD 1 for cholecystectomy. He does admit to some pain at the surgical site. Review of systems is otherwise negative. He has remained hemodynamically stable. Objective Data Objective Data Vital Signs: Vital Signs Temp Pulse Resp BP Pulse Ox O2 Del Method O2 Flow Rate 97.0 F L 81 18 134/76 H 93 Room Air 2 02/05/24 08:00 02/05/24 08:00 02/05/24 08:00 02/05/24 08:00 02/05/24 08:00 02/05/24 08:00 02/05/24 07:49 Oxygen Flow Rate (L/min) 2 Oxygen Delivery Method Room Air Weight: 218 lb 7.649 oz Body Mass Index (BMI) 28.8 Intake & Output: Intake and Output for Last 24 Hours 02/03/24 02/04/24 02/05/24 23:59 23:59 23:59 Intake Total 2750 / 2950 2710 / 3070 870 / 870 Output Total 1050 / 1250 6200 / 7075 1725 / 1725 Balance 1700 / 1700 -3490 / -4005 -855 / -855 Lab / Micro Data 02/05/24 08:20 02/05/24 08:20 Labs: Laboratory Results - last 24 hr 02/04/24 16:42: POC Glucose 323 H 02/04/24 21:19: POC Glucose 362 H 02/05/24 00:05: POC Glucose 334 H 02/05/24 06:04: POC Glucose 266 H 02/05/24 08:20: WBC 11.9 H, RBC 4.96, Hgb 14.0, Hct 42.3, MCV 85.3, MCH 28.2, MCHC 33.1, RDW Std Deviation 49.1 H, RDW Coeff of Shoshana 15.7 H, Plt Count 183, MPV 11.8, Immature Gran % (Auto) 0.300, Neut % (Auto) 81.0 H, Lymph % (Auto) 8.8 L, [place] % (Auto) 6.3, Eos % (Auto) 3.3, Baso % (Auto) 0.3, Absolute Neuts (auto) 9.6 H, Absolute Lymphs (auto) 1.04, Nucleated RBC % 0, Sodium 135 L, Potassium 3.5, Chloride 101, Carbon Dioxide 28.0, Anion Gap 6, BUN 14, Creatinine 1.14, Estim Creat Clear Calc 75.76, Est GFR (MDRD) Af Amer 82, Est GFR (MDRD) Non-Af 68, BUN/Creatinine Ratio 12.3, Glucose 268 H, Calcium 9.0, Total Bilirubin 1.20 H, AST 69 H, ALT 178 H, Alkaline Phosphatase 314 H, Total Protein 6.9, Albumin 2.8 L, Globulin 4.1, Albumin/Globulin Ratio 0.7 L 02/05/24 11:05: POC Glucose 303 H Micro: Microbiology 02/01/24 21:35 Mucosa - Nose SARS-CoV-2, Influenza & RSV (PCR) - Final Radiography Diagnostic Testing: Radiology Impression Cholangiogram 02/04/24 07:00 IMPRESSION: No evidence of bile leak Dilated cystic duct, intra and extrahepatic biliary ducts There is eventually flow of contrast into the biliary stent into the duodenum. Electronically Signed: Júnior Parker MD at 15:16 EDT , Rhythm Strip Rhythm Strip: Sinus Tach Rate: 111 Ectopy: None Physical Exam Const alert, oriented x3 and no apparent distress Constitutional Narrative: frail General Appearance: cooperative and well developed Orientation / Consciousness: confused HEENT normocephalic, head/scalp atraumatic, hearing grossly normal bilaterally and oropharynx normal Eyes PERRL and EOMs intact bilaterally Neck no lymphadenopathy and supple Lymph Lymphatic: no lymphadenopathy noted and no lymphedema noted Resp normal respiratory effort, no retractions, no use of accessory muscles and clear to auscultation bilaterally Resp Narrative: diminished breath sounds bibasally, no wheezes or crackles. on room air. Cardio regular rate, regular rhythm, S1 normal heart sound, S2 normal heart sound and no murmurs GI normal to inspection, nondistended, normoactive bowel sounds, soft to palpation, non-tender and non-distended Extremity normal to inspection, full ROM, normal capillary refill, no clubbing, cyanosis or edema and no calf tenderness General Extremity: no tenderness to palpation of joints or extremities Skin General Skin Exam: no breakdown Neuro CN's II-XII intact bilaterally, moves all extremities, no focal motor deficits, no sensory deficits noted and deep tendon reflexes 2+ bilaterally Sensorium / Orientation: awake, alert, oriented to person and oriented to place Motor Exam: strength 5/5 throughout and general weakness Psych thought process normal, cooperative and affect normal Appearance: appropriate Assessment & Plan Assessment/Plan (1) Acute metabolic encephalopathy: (2) Choledocholithiasis: PLAN: Plan #Altered mental status * resolved. * * #Choledocholithiasis * Abdominal imaging done on admission showed: Bile duct dilatation with common bile duct measuring 14 mm suspicious for recurrent choledocholithiasis. * Also had hyperbilirubinemia and liver enzymes were elevated. * Currently on IV ciprofloxacin and metronidazole. Of note he is allergic to penicillins. * Gastroenterology on board; ERCP shows single localized biliary stricture in the lower third of the bile duct which was dilated. There were findings of ch oledocholithiasis which were removed by biliary sphincterectomy and balloon extraction and a temporary stent was inserted into the ventral pancreatic duct. 1 stent was removed from the biliary tree and cells for cytology obtained. * In light of his recurrent choledocholithiasis, general surgery consulted for possible cholecystectomy. * s/p cholecystectomy. today is POD 1. * general surgery on board. * #Urinary retention in the setting of BPH * morales catheter in situ. * on flomax and finasteride. * #Hyperlipidemia: on statin #Type 2 diabetes mellitus: On Lantus 53 units nightly. Insulin sliding scale. Accuchecks ACHS. #Depression: On venlafaxine. 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 Stable. On aspirin and statin. DVT prophylaxis: SCDs Disposition: for likely dc tomorrow Charges/Coding Visit Charges Inpatient E&M: 93328 Subs Hosp L2
[2024-02-05 15:14] VITALS: BP 128/69; PULSE 82; RESP 18; TEMP 36.6; O2SAT 92
[2024-02-05] MEDS: BENZOCAINE/MENTHOL 1 LOZENGE 2 LOZENGE MUCOUS MEM (16:38)
[2024-02-05 16:53] LABS: Bedside Glucose 320 mg/dL (74-106)
[2024-02-05 22:52] VITALS: BP 125/58; PULSE 68; RESP 18; TEMP 36.6; O2SAT 92
[2024-02-05] MEDS: Insulin Glargine-YFGN 100 UNIT/ML Pen 10 UNIT SC (22:54)
[2024-02-05 23:17] LABS: Bedside Glucose 366 mg/dL (74-106)
[2024-02-06 02:31] VITALS: BMI 27.8
[2024-02-06 02:43] VITALS: BP 128/64; PULSE 71; RESP 18; TEMP 36.8; O2SAT 95
[2024-02-06 06:29] LABS: Absolute Lymphocyte Count 1.35 X10^3/uL (0.83-4.51); Absolute Neutrophil Count 7.8 X10^3/uL (2.0-7.7); Basophil# 0.06 X10^3/uL; Basophil% 0.6 % (0-1); Eosinophils% 6.5 % (0-5); Hemoglobin 13.3 g/dL (13.0-16.5); Lymphocyte # 1.35 X10^3/ul (0.83-4.51); Lymphocyte % 12.6 % (19-41); Mean Corp Hgb Conc 32.4 g/dL (32-36); Mean Corpuscular Hgb 27.8 pg (27.0-32.0); Mean Corpuscular Volume 85.8 fL (80-94); Mean Platelet Vol. 12.8 fl (6.2-12.0); Monocyte% 7.4 % (0-10); NRBC Flagged by Analyzer 0 % (0-5); Neutrophil # 7.79 X10^3/uL (2.7-7.7); Neutrophil % 72.5 % (47-70); Platelet Count 200 K/mm3 (150-450); RBC Distribution Width SD 47.2 fl (35.1-43.9); Red Blood Count 4.78 M/mm3 (4.6-6.2); White Blood Count 10.7 K/mm3 (4.4-11.0)
[2024-02-06] MEDS: metroNIDAZOLE 500 MG/100 ML BAG 100 MG IV ×2 (06:39→13:14)
[2024-02-06] MEDS: Insulin Lispro 100 UNIT/ML INSULN.PEN SC ×2 (06:40→11:30)
[2024-02-06] MEDS: Ibuprofen 400 MG Tablet PO ×2 (06:45→11:54)
[2024-02-06 07:15] LABS: ALB/GLOB Ratio 0.7 RATIO (0.9-2.4); AST(SGOT) 51 U/L (15-37); Alanine Aminotransfer ALT/SGPT 136 U/L (16-61); Albumin, Serum 2.6 g/dL (3.2-5.0); Alkaline Phosphatase 258 U/L (45-117); Anion Gap 6 (5-15); BUN 12 mg/dL (7-18); BUN/Creat Ratio 12.8 RATIO (10-20); Calcium,Total 8.5 mg/dL (8.5-10.1); Chloride 102 mmol/L (98-107); Creatinine, Serum 0.94 mg/dL (0.70-1.30); EST Glomerular Filtration Rate 85 mL/min (>60); Est Glom Filt Rate - Afr Amer 102 mL/min (>60); Estimated Creatinine Clearance 83.82 ml/min; Globulin 3.8 g/dL (2.2-4.2); Glucose 163 mg/dL (74-106); Potassium 3.3 mmol/L (3.5-5.1); Protein, Total 6.4 g/dL (6.4-8.2); Sodium Level 138 mmol/L (136-145)
[2024-02-06 07:24] LABS: Bedside Glucose 172 mg/dL (74-106)
[2024-02-06 08:40] VITALS: BP 137/82; PULSE 75; RESP 17; TEMP 37; O2SAT 95
[2024-02-06] MEDS: Finasteride 5 MG Tablet PO (08:50)
[2024-02-06] MEDS: Venlafaxine XR 150 MG Capsule PO (08:50)
[2024-02-06] MEDS: Tamsulosin HCl 0.4 MG Capsule PO (08:51)
[2024-02-06] MEDS: Aspirin 81 MG TAB.CHEW PO (08:51)
[2024-02-06] MEDS: Ciprofloxacin 400 MG/200 ML BAG 200 MG IV (08:51)
[2024-02-06] MEDS: Pantoprazole Sodium 40 MG in 0.9% Normal Saline (100mL MB+) 100 ML 330 MG IV (08:52)
[2024-02-06] MEDS: Potassium Chloride Oral Tablet 20 MEQ 40 MEQ PO (08:52)
--- NOTE | 2024-02-06 09:09 | PCM.PN.SRG ---
Subjective Subjective Patient evaluated resting comfortably in bed. He denies any abdominal pain/discomfort. He is tolerating his diet. He is passing flatus. he denies nausea, vomiting, fever. Objective Data Objective Data Vital Signs: Vital Signs Temp Pulse Resp BP Pulse Ox O2 Del Method O2 Flow Rate 98.6 F 75 17 137/82 H 95 Room Air 2 02/06/24 08:40 02/06/24 08:40 02/06/24 08:40 02/06/24 08:40 02/06/24 08:40 02/06/24 08:40 02/06/24 02:51 FiO2 2 02/05/24 22:00 Oxygen Flow Rate (L/min) 2 Oxygen Delivery Method Room Air Weight: 210 lb 8.663 oz Body Mass Index (BMI) 27.8 Intake & Output: Intake and Output for Last 24 Hours 02/04/24 02/05/24 02/06/24 23:59 23:59 23:59 Intake Total 2710 / 3070 2070 / 2070 200 / 200 Output Total 6200 / 7075 2625 / 2625 1000 / 1000 Balance -3490 / -4005 -555 / -555 -800 / -800 Lab / Micro Data 02/06/24 05:40 02/06/24 05:40 Labs: Laboratory Results - last 24 hr 02/05/24 11:05: POC Glucose 303 H 02/05/24 16:31: POC Glucose 320 H 02/05/24 22:52: POC Glucose 366 H 02/06/24 05:40: WBC 10.7, RBC 4.78, Hgb 13.3, Hct 41.0, MCV 85.8, MCH 27.8, MCHC 32.4, RDW Std Deviation 47.2 H, RDW Coeff of Shoshana 15.0 H, Plt Count 200, MPV 12.8 H, Immature Gran % (Auto) 0.400, Neut % (Auto) 72.5 H, Lymph % (Auto) 12.6 L, [place] % (Auto) 7.4, Eos % (Auto) 6.5 H, Baso % (Auto) 0.6, Absolute Neuts (auto) 7.8 H, Absolute Lymphs (auto) 1.35, Nucleated RBC % 0, Sodium 138, Potassium 3.3 L, Chloride 102, Carbon Dioxide 30.0, Anion Gap 6, BUN 12, Creatinine 0.94, Estim Creat Clear Calc 83.82, Est GFR (MDRD) Af Amer 102, Est GFR (MDRD) Non-Af 85, BUN/Creatinine Ratio 12.8, Glucose 163 H, Calcium 8.5, Total Bilirubin 1.00, AST 51 H, ALT 136 H, Alkaline Phosphatase 258 H, Total Protein 6.4, Albumin 2.6 L, Globulin 3.8, Albumin/Globulin Ratio 0.7 L 02/06/24 06:38: POC Glucose 172 H Micro: Microbiology 02/01/24 21:35 Mucosa - Nose SARS-CoV-2, Influenza & RSV (PCR) - Final Rhythm Strip Rhythm Strip: Sinus Tach Rate: 111 Ectopy: None Physical Exam GI GI Narrative: Abdomen- incisions c/d/i. All op-sites were removed. No signs of drainage, infection or erythema noted. Assessment & Plan Assessment/Plan (1) Choledocholithiasis: PLAN: I have evaluated this patient in conjunction with Dr. Marsh. Patient is ready for discharge from a surgical standpoint Follow-up with Dr. Marsh in 2 weeks from the procedure Charges/Coding Visit Charges Inpatient E&M: 04180 Subs Hosp L1 (post-op; no charge)
[2024-02-06 11:08] LABS: Anti-Centromere B Ab <0.2 AI (0.0-0.9); Anti-Chromatin <0.2 AI (0.0-0.9); Anti-Jo <0.2 AI (0.0-0.9); Anti-Mitochondrial AB <20.0 Units (0.0-20.0); Anti-Scleroderma-70 AB <0.2 AI (0.0-0.9); Anti-dsDNA Ab <1 IU/mL (0-9); RNP Ab <0.2 AI (0.0-0.9); SJOGREN'S Anti-SS-A test < 0.2 AI (0.0-0.9); SJOGREN'S Anti-SS-B test < 0.2 AI (0.0-0.9); Smith Ab <0.2 AI (0.0-0.9)
[2024-02-06 11:56] LABS: Bedside Glucose 380 mg/dL (74-106)
--- NOTE | 2024-02-06 12:07 | CASEMGMT ---
Patient has order for discharge. RN CM in to discuss needs at discharge. Patient and deny needs at discharge. Patient to resume outpatient therapy at [facility]. states patient has walker and rollator at home if needed. Patient and denied further questions or concenrs.
--- NOTE | 2024-02-06 12:59 | DS.PCM_ITS ---
Providers Date of Admission: 02/02/24 Date of Discharge: 02/06/24 Primary Care Physician: Dr. Tommy Markham MD Consultations 02/02/24 01:43 Consult: Gastroenterology Routine Consulting Provider: [facility] Reason for Consult: Choledocholithiasis EMERGENT Consult: No Notified: Yes Date Notified: 02/02/24 Time Notified: 06:27 Method of Notification: Text 02/03/24 08:41 Consult: Interventional Radiology Routine Consulting Provider: Juan Jean Reason for Consult: jaundice EMERGENT Consult: Yes Notified: Yes Date Notified: 02/03/24 Time Notified: 08:41 Method of Notification: Verbal 02/03/24 08:48 Consult: General Surgery Routine Consulting Provider: Walter Marsh Reason for Consult: recurrent gallstones EMERGENT Consult: No Notified: Yes Date Notified: 02/03/24 Time Notified: 10:17 Method of Notification: Text Reason For Visit: CHOLEDOCHOLITHIASIS WITH METABOLIC ENCEPHALOPATHY Diagnosis Discharge Diagnosis (1) Choledocholithiasis: Status: Acute Code(s): K80.50 - Calculus of bile duct without cholangitis or cholecystitis without obstruction Plan #Altered mental status * resolved. * * #Choledocholithiasis * Abdominal imaging done on admission showed: Bile duct dilatation with common bile duct measuring 14 mm suspicious for recurrent choledocholithiasis. * Also had hyperbilirubinemia and liver enzymes were elevated. * Currently on IV ciprofloxacin and metronidazole. Of note he is allergic to penicillins. * Gastroenterology on board; ERCP shows single localized biliary stricture in the lower third of the bile duct which was dilated. There were findings of choledocholithiasis which were removed by biliary sphincterectomy and balloon extraction and a temporary stent was inserted into the ventral pancreatic duct. 1 stent was removed from the biliary tree and cells for cytology obtai filiberto. * In light of his recurrent choledocholithiasis, general surgery consulted for possible cholecystectomy. * s/p cholecystectomy. today is POD 1. * general surgery on board. * #Urinary retention in the setting of BPH * morales catheter in situ. * on flomax and finasteride. * #Hyperlipidemia: on statin #Type 2 diabetes mellitus: On Lantus 53 units nightly. Insulin sliding scale. Accuchecks ACHS. #Depression: On venlafaxine. 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 Stable. On aspirin and statin. DVT prophylaxis: SCDs Disposition: for likely dc tomorrow Medications at Discharge Home Medications insulin glargine 100 unit/mL (3 mL) subcutaneous pen (Lantus Solostar U-100 Insulin) 53 units subcut QHS DABETES 02/27/15 insulin lispro 100 unit/mL subcutaneous pen (Humalog KwikPen (U-100) Insulin) 22 unit subcut TID DIABETES 02/27/15 fluticasone fur. 100 mcg-umeclid 62.5 mcg-vilant 25 mcg inhalat.powder (Trelegy Ellipta) 1 inh inhalation DAILY SHORTNESS OF BREATH/WHEEZING 09/05/23 venlafaxine 150 mg capsule,extended release 24 hr 150 mg PO DAILY DEPRESSION 09/05/23 atorvastatin 80 mg tablet 80 mg PO QHS CHOLESTEROL #30 tabs 09/07/23 aspirin 81 mg chewable tablet 81 mg PO DAILY HEART HEALTH 11/02/23 finasteride 5 mg tablet 5 mg PO DAILY prostate 01/05/24 ondansetron HCl 8 mg tablet 8 mg PO Q8H PRN nausea and vomiting #20 tabs 01/07/24 lactulose 10 gram/15 mL (15 mL) oral solution 10 g PO DAILY PRN constipation 01/25/24 tamsulosin 0.4 mg capsule 0.4 mg PO BID prostate 01/25/24 oxycodone 5 mg tablet 5 mg PO Q6H PRN PRN Pain Score 6-10 2 days #6 tabs 02/06/24 Hospital Course Operations cholecystecomy Procedures - (liver biopsy) Summary of Care Provided Minutes Spent on Discharge: 48 Hospital Course: Patient is a 68-year-old male with a past medical history as outlined was admitted through the ED on 02/02/2024 with a complaint of altered mental status with slurred speech, left facial droop and abdominal pain. He had complained of abdominal pain and went to lay down and when woke him up she noted he was confused with worsening of his previous strokelike symptoms so she called the EMS. During transit patient's symptoms improved significantly and resolved. On admission in the ED, he had a right upper quadrant ultrasound due to the abdominal pain which showed common bile duct dilatation with common bile duct measuring up to 14 mm is suspicious for recurrent choledocholithiasis. Labs done showed hyperbilirubinemia with elevated liver enzymes. He was admitted and managed for acute metabolic encephalopathy in light of elevated liver enzymes and recurrent choledocholithiasis. He was started empirically on IV Zosyn and admitted to the PCU. Gastroenterology was consulted. Patient had ERCP with removal of stones. ERCP showed a single localized biliary stricture in the lower third of the bile duct and findings of choledocholithiasis which were removed by biliary sphincterectomy and balloon extraction and a temporary stent was inserted into the ventral pancreatic duct. He had 1 stent removed and cells for cytology obtained. General surgery was consulted for cholecystectomy in light of the recurrent choledocholithiasis. He did have cholecystectomy on 02/05/2024. He did well after the surgery and felt well. He remained stable and was discharged home on 02/06/2024. He is to follow-up with his primary care doctor and gastroenterology as well as general surgery within 1 to 2 weeks. Of note, hospital course was also complicated by urinary retention requiring insertion of Morales catheter. Morales catheter was discontinued prior to discharge in order for patient to void and was able to void. Patient seen and examined prior to discharge. He had no complaints and had an uneventful night. Review of systems otherwise negative. Labs and vitals reviewed. Medication reviewed and reconciled. Physical Exam Const alert, oriented x3 and no apparent distress Constitutional Narrative: frail General Appearance: cooperative, comfortable, well kempt and well developed Orientation / Consciousness: confused HEENT normocephalic, head/scalp atraumatic, hearing grossly normal bilaterally and oropharynx normal Eyes PERRL and EOMs intact bilaterally Neck no lymphadenopathy and supple Lymph Lymphatic: no lymphadenopathy noted and no lymphedema noted Resp normal respiratory effort, no retractions, no use of accessory muscles and clear to auscultation bilaterally Resp Narrative: diminished breath sounds bibasally, no wheezes or crackles. on room air. Cardio regular rate, regular rhythm, S1 normal heart sound, S2 normal heart sound and no murmurs GI normal to inspection, nondistended, normoactive bowel sounds, soft to palpation, non-tender and non-distended Extremity normal to inspection, full ROM, normal capillary refill, no clubbing, cyanosis or edema and no calf tenderness General Extremity: no tenderness to palpation of joints or extremities Skin no rashes or lesions noted General Skin Exam: no breakdown Neuro oriented x3, CN's II-XII intact bilaterally, moves all extremities, no focal motor deficits, no sensory deficits noted and deep tendon reflexes 2+ bilaterally Sensorium / Orientation: awake, alert, oriented to person and oriented to place Motor Exam: strength 5/5 throughout and general weakness Psych thought process normal, cooperative and affect normal Appearance: appropriate Weight / BMI Weight Weight: 210 lb 8.663 oz Body Mass Index (BMI) 27.8 ABG / Lab / Microbiology Data 02/06/24 05:40 02/06/24 05:40 Laboratory: Laboratory Results - last 24 hr 02/03/24 09:00: CHARLES-1 Antibody <0.2, SS-A/Ro IgG Antibody < 0.2, SS-B/La IgG Antibody < 0.2, Sm (Rinaldi) Antibody <0.2, TECHNICIAN TERMINAL AND REPEATER Antibody <0.2, Scl-70 Scleroderma Ab <0.2, Double Strand DNA Ab <1, Centromere B Antibody <0.2, Anti-Mitochondrial Ab <20.0 02/05/24 16:31: POC Glucose 320 H 02/05/24 22:52: POC Glucose 366 H 02/06/24 05:40: WBC 10.7, RBC 4.78, Hgb 13.3, Hct 41.0, MCV 85.8, MCH 27.8, MCHC 32.4, RDW Std Deviation 47.2 H, RDW Coeff of Shoshana 15.0 H, Plt Count 200, MPV 12.8 H, Immature Gran % (Auto) 0.400, Neut % (Auto) 72.5 H, Lymph % (Auto) 12.6 L, [place] % (Auto) 7.4, Eos % (Auto) 6.5 H, Baso % (Auto) 0.6, Absolute Neuts (auto) 7.8 H, Absolute Lymphs (auto) 1.35, Nucleated RBC % 0, Sodium 138, Potassium 3.3 L, Chloride 102, Carbon Dioxide 30.0, Anion Gap 6, BUN 12, Creatinine 0.94, Estim Creat Clear Calc 83.82, Est GFR (MDRD) Af Amer 102, Est GFR (MDRD) Non-Af 85, BUN/Creatinine Ratio 12.8, Glucose 163 H, Calcium 8.5, Total Bilirubin 1.00, AST 51 H, ALT 136 H, Alkaline Phosphatase 258 H, Total Protein 6.4, Albumin 2.6 L, Globulin 3.8, Albumin/Globulin Ratio 0.7 L 02/06/24 06:38: POC Glucose 172 H 02/06/24 11:30: POC Glucose 380 H Microbiology: Microbiology 02/01/24 21:35 Mucosa - Nose SARS-CoV-2, Influenza & RSV (PCR) - Final D/C Instructions Discharge Diet: Low fat / Low cholesterol Discharge Activity: Return to Normal Activity Weight Bearing Status: Weight bearing as tolerated Call your doctor if you observe: Fever of 101 or Higher, Shortness of breath, Dizziness, Swelling in the ankles and Chest pain Meaningful Use Info Meaningful Use Diagnoses (Choose all that apply): None applicable Discharge Plan Admission Admit Date/Time: 02/02/24 00:42 Primary Reason for Your Visit: choledocholithiasis Attending Provider: Vannesa Pulido Primary Care Provider: Tommy Markham Consulting Providers: Femi Curtis; Juan Jean; Walter Marsh Instructions Patient Instructions: NELIDA RN Biopsy Liver Dc Additional Instructions / Restrictions: Cholecystectomy Diet ? Start light with soups and soft bland foods. You may advance diet as tolerated. Activity ? You may drive in 3-5 days but not while taking narcotic pain medication. ? I encourage walking. You may go up steps, one at a time. ? Do not swim or use hot tubs for 2 weeks. ? For comfort, you may use warm compresses or ice as needed for 15-20 minutes at a time. Lifting ? You may lift up to 15 pounds for 3 weeks. Dressings/Incision ? You may shower OVER your plastic dressings ? Do NOT tub bathe for 1 week ? You have steri strips over your incisions. It is okay to continue showering with them in place, pat them dry. ? You may remove steri-strips after 1 week. We recommend getting them soaking wet for easier removal. Medications ? Anesthesia used during surgery and pain medications may cause constipation. I recommend initiating on the day of surgery a fiber supplement like, Metamucil, Citrucel, FiberCon, Benefiber, or a generic form of these medications. 1 heaping tablespoon in water daily. You may continue to utilize any bowel regimen or oral laxatives that you routinely take. ? As long as you are not intolerant to Tylenol, acetaminophen, ibuprofen, Motrin, Advil, Aleve, or similar medications, I would recommend transitioning to these [id number] medicines as soon as possible instead of continued use of narcotic pain medication. Follow up ? You should call [facility] soon after surgery, at [phone] option 1 to make a follow up appointment for 7-10 days after your surgery. Discharge Orders/Prescriptions Prescriptions: New oxycodone 5 mg Tablet 5 mg PO Q6H PRN PRN (Reason: Pain Score 6-10) 2 Days Qty: 6 0RF No Action insulin lispro [Humalog KwikPen Insulin] 100 UNIT/ML insulin pen 22 unit subcut TID insulin glargine [Lantus Solostar U-100 Insulin] 100 UNITS/ML insulin pen 53 units subcut QHS Trelegy Ellipta 100-62.5-25 mcg blister with device 1 inh INHALATION DAILY venlafaxine 150 mg capsule,extended release 24hr 150 mg PO DAILY atorvastatin 80 mg Tablet 80 mg PO QHS Qty: 30 2RF aspirin 81 MG tablet,chewable 81 mg PO DAILY finasteride 5 mg tablet 5 mg PO DAILY ondansetron HCl 8 mg tablet 8 mg PO Q8H PRN (Reason: nausea and vomiting) Qty: 20 0RF tamsulosin 0.4 mg Capsule 0.4 mg PO BID lactulose 10 gram/15 mL (15 mL) solution 10 g PO DAILY PRN (Reason: constipation) Referrals / Follow Up: Walter Marsh MD [Med Staff - Active Staff] - 02/20/24 2:45 pm Tommy Markham MD [Primary Care Provider] - 03/15/24 12:45 pm ( appointment is with Isabela Hernández N.P.) Disposition Disposition (needs filled in before D/C Order can be placed): Home, Self Care Charges/Coding Visit Charges Inpatient E&M: 01462 Disch Hosp >30min
[2024-02-06 13:12] VITALS: BP 123/74; PULSE 81; RESP 17; TEMP 36.4; O2SAT 97
--- NOTE | 2024-02-06 13:18 | PHA.DC_ITS ---
Pharmacy [facility] Pharm[facility] Service has performed discharge medication reconciliation and counseling for this patient. The patient's discharge medication list was reviewed for discrepancies and discrepancies were resolved. The patient was counseled on the following discharge medications and changes in medications for homegoing were reviewed. The Reason for Use, instructions for use, and potential side effects were reviewed for all new medications. The patient's questions regarding all of their medications were answered. 1. Oxycodone 5 mg PO Q6H PRN pain 6-10/10. The patient was able to verbally demonstrate an understanding of their discharge medications. Medications at Discharge Home Medications insulin glargine 100 unit/mL (3 mL) subcutaneous pen (Lantus Solostar U-100 Insulin) 53 units subcut QHS DABETES 02/27/15 insulin lispro 100 unit/mL subcutaneous pen (Humalog KwikPen (U-100) Insulin) 22 unit subcut TID DIABETES 02/27/15 fluticasone fur. 100 mcg-umeclid 62.5 mcg-vilant 25 mcg inhalat.powder (Trelegy Ellipta) 1 inh inhalation DAILY SHORTNESS OF BREATH/WHEEZING 09/05/23 venlafaxine 150 mg capsule,extended release 24 hr 150 mg PO DAILY DEPRESSION 09/05/23 atorvastatin 80 mg tablet 80 mg PO QHS CHOLESTEROL #30 tabs 09/07/23 aspirin 81 mg chewable tablet 81 mg PO DAILY HEART HEALTH 11/02/23 finasteride 5 mg tablet 5 mg PO DAILY prostate 01/05/24 ondansetron HCl 8 mg tablet 8 mg PO Q8H PRN nausea and vomiting #20 tabs 01/07/24 lactulose 10 gram/15 mL (15 mL) oral solution 10 g PO DAILY PRN constipation 01/25/24 tamsulosin 0.4 mg capsule 0.4 mg PO BID prostate 01/25/24 oxycodone 5 mg tablet 5 mg PO Q6H PRN PRN Pain Score 6-10 2 days #6 tabs 02/06/24
--- NOTE | 2024-02-06 17:27 | EX.PCM.PN.GI ---
Subjective Subjective Patient is feeling little bit better today. His liver biopsies came back acute on chronic cholangitis. I suspect that this is from infection in the bile duct secondary to retained stones. Although cannot rule out primary sclerosing cholangitis, PBC or IgG associated cholangiopathy. Await biochemical workup. At this time. Objective Data Objective Data Vital Signs: Vital Signs Temp Pulse Resp BP Pulse Ox O2 Del Method O2 Flow Rate 97.6 F L 81 17 123/74 H 97 Room Air 2 02/06/24 13:12 02/06/24 13:12 02/06/24 13:12 02/06/24 13:12 02/06/24 13:12 02/06/24 13:12 02/06/24 02:51 FiO2 2 02/05/24 22:00 Oxygen Flow Rate (L/min) 2 Oxygen Delivery Method Room Air Weight: 210 lb 8.663 oz Body Mass Index (BMI) 27.8 Intake & Output: Intake and Output for Last 24 Hours 02/04/24 02/05/24 02/06/24 23:59 23:59 23:59 Intake Total 2710 / 3070 2070 / 2070 610 / 610 Output Total 6200 / 7075 2625 / 2625 1000 / 1000 Balance -3490 / -4005 -555 / -555 -390 / -390 Lab / Micro Data 02/06/24 05:40 02/06/24 05:40 Labs: Laboratory Results - last 24 hr 02/03/24 09:00: CHARLES-1 Antibody <0.2, SS-A/Ro IgG Antibody < 0.2, SS-B/La IgG Antibody < 0.2, Sm (Rinaldi) Antibody <0.2, WILDLAND FIRE OPERATIONS SPECIALIST Antibody <0.2, Scl-70 Scleroderma Ab <0.2, Double Strand DNA Ab <1, Centromere B Antibody <0.2, Anti-Mitochondrial Ab <20.0 02/05/24 22:52: POC Glucose 366 H 02/06/24 05:40: WBC 10.7, RBC 4.78, Hgb 13.3, Hct 41.0, MCV 85.8, MCH 27.8, MCHC 32.4, RDW Std Deviation 47.2 H, RDW Coeff of Shoshana 15.0 H, Plt Count 200, MPV 12.8 H, Immature Gran % (Auto) 0.400, Neut % (Auto) 72.5 H, Lymph % (Auto) 12.6 L, [place] % (Auto) 7.4, Eos % (Auto) 6.5 H, Baso % (Auto) 0.6, Absolute Neuts (auto) 7.8 H, Absolute Lymphs (auto) 1.35, Nucleated RBC % 0, Sodium 138, Potassium 3.3 L, Chloride 102, Carbon Dioxide 30.0, Anion Gap 6, BUN 12, Creatinine 0.94, Estim Creat Clear Calc 83.82, Est GFR (MDRD) Af Amer 102, Est GFR (MDRD) Non-Af 85, BUN/Creatinine Ratio 12.8, Glucose 163 H, Calcium 8.5, Total Bilirubin 1.00, AST 51 H, ALT 136 H, Alkaline Phosphatase 258 H, Total Protein 6.4, Albumin 2.6 L, Globulin 3.8, Albumin/Globulin Ratio 0.7 L 02/06/24 06:38: POC Glucose 172 H 02/06/24 11:30: POC Glucose 380 H Micro: Microbiology 02/01/24 21:35 Mucosa - Nose SARS-CoV-2, Influenza & RSV (PCR) - Final Radiography Diagnostic Testing: Radiology Impression Endo Retro Cholangiopancreatogram 02/02/24 16:40 IMPRESSION: Fluoroscopy during ERCP. Electronically Signed: Bonifacio Su MD at 20:01 EDT , Rhythm Strip Rhythm Strip: Sinus Tach Rate: 111 Ectopy: None Physical Exam Const alert, oriented x3 and no apparent distress Constitutional Narrative: frail General Appearance: cooperative, comfortable, well kempt and well developed Orientation / Consciousness: confused HEENT normocephalic, head/scalp atraumatic, hearing grossly normal bilaterally and oropharynx normal Eyes PERRL and EOMs intact bilaterally Neck no lymphadenopathy and supple Lymph Lymphatic: no lymphadenopathy noted and no lymphedema noted Resp normal respiratory effort, no retractions, no use of accessory muscles and clear to auscultation bilaterally Resp Narrative: diminished breath sounds bibasally, no wheezes or crackles. on room air. Cardio regular rate, regular rhythm, S1 normal heart sound, S2 normal heart sound and no murmurs GI normal to inspection, nondistended, normoactive bowel sounds, soft to palpation, non-tender and non-distended Extremity normal to inspection, full ROM, normal capillary refill, no clubbing, cyanosis or edema and no calf tenderness General Extremity: no tenderness to palpation of joints or extremities Skin no rashes or lesions noted General Skin Exam: no breakdown Neuro oriented x3, CN's II-XII intact bilaterally, moves all extremities, no focal motor deficits, no sensory deficits noted and deep tendon reflexes 2+ bilaterally Sensorium / Orientation: awake, alert, oriented to person and oriented to place Motor Exam: strength 5/5 throughout and general weakness Psych thought process normal, cooperative and affect normal Appearance: appropriate Assessment & Plan Assessment/Plan (1) Choledocholithiasis: (2) Cholestatic hepatitis: (3) Acute metabolic encephalopathy: (4) Stroke-like symptoms: (5) Weakness: PLAN: Plan 1. Common bile duct dilatation with common bile duct measuring 14 mm with elevated bilirubin liver function tests suspicious for recurrent choledocholithiasis in the setting of of a known history of cholestatic hepatitis; status post ERCP with biliary stent placement and sphincterotomy with stone removal in October 2023 - 2. Acute metabolic encephalopathy mimicking previous strokelike symptoms due to limited cognitive reserve . Patient does have an appointment to see neurology next month. 3. History of CVA with residual left hemiparesis - Noted. 4. Recent admission here from January 25, 2024 to January 26, 2024 for treatment of metabolic encephalopathy with MRI positive for old bilateral lacunar infarcts and chronic ischemic changes - Noted. 5. Hyperlipidemia - Resume statin once patient is ERCP is completed. 02/03/24-patient underwent liver biopsy today. He does not have any abdominal pain and is tolerating a diet. Re : ERCP procedure for Max Markham This procedure was performed on January. My impressions and recommendations are as follows: Impressions : - A single localized biliary stricture was found in the lower third of the main bile duct. The stricture was indeterminate. - A single localized biliary stricture was found in the lower third of the main bile duct. The stricture was indeterminate. - The biliary system were dilated, secondary to a stricture. - Choledocholithiasis was found. Complete removal was accomplished by biliary sphincterotomy and balloon extraction. - One temporary stent was placed into the ventral pancreatic duct. - A biliary sphincterotomy was performed. - The biliary tree was swept. - One stent was removed from the biliary tree. - Fluid aspiration was performed. - Cells for cytology obtained in the lower third of the main duct. - Biopsy was performed in the lower third of the main duct. - Lithotripsy was successful. - The biliary tree was swept. Cholestatic hepatitis with jaundice is multifactorial at this time. He did have choledocholithiasis but does with bile duct. Concerned about a cholestatic hepatitis could be from medications or viral infection. Await liver biopsy results. 02/06/24-he can start on ursodiol as an outpatient. He will need ERCP with stent removal. Patient is pain is under control.. Charges/Coding Visit Charges Inpatient E&M: 22116 [facility] Hosp L3
[2024-02-07 00:07] LABS: Anti-Smooth Muscle ABS 19 Units (0-19); CMV Acute Antibody IgM < 30.0 AU/mL (0.0-29.9); Ceruloplasmin 26.8 mg/dL (16.0-31.0); Copper, Serum or Plasma 114 ug/dL (69-132); Cytoplasmic Ab (C-ANCA) <1:20 titer (Neg:<1:20); EBV Acute VCA IgM < 36.0 U/mL (0.0-35.9); HEPATITIS B SURFACE AG Negative (Negative); Hep C Antibodies Non Reactive (Non Reactive); Hepatitis A IgM Antibody Negative (Negative); Hepatitis B Core AB IgM Negative (Negative); Perinuclear Ab (P-ANCA) <1:20 titer (Neg:<1:20); V-Zoster Virus Acute IgM < 0.91 index (0.00-0.90)
[2024-02-07 14:10] LABS: Albumin 2.9 g/dL (2.9-4.4); Alpha-1-Globulins 0.3 g/dL (0.0-0.4); Alpha-2-Globulins 0.8 g/dL (0.4-1.0); Gamma Globulin 0.6 g/dL (0.4-1.8); Immunoglobulin A 315 mg/dL (61-437); Immunoglobulin G 727 mg/dL (603-1613); Immunoglobulin M 37 mg/dL (20-172); PROEL- TOTAL PROTEIN 5.4 g/dL (6.0-8.5)
[2024-02-08 16:10] LABS: IgG, Quant 799 mg/dL (603-1613); Immunoglobulin G, Subclass 1 405 mg/dL (248-810); Immunoglobulin G, Subclass 2 258 mg/dL (130-555); Immunoglobulin G, Subclass 3 59 mg/dL (15-102); Immunoglobulin G, Subclass 4 26 mg/dL (2-96)
== END 2024-02-06 17:55 | disposition home or self-care (01) | DRG 417 ==
LOC: ED 23:53 → PCU 02-02 00:12
PROVIDERS: Internal Medicine Gastroenterology; Surgery; Admitting Provider Internal Medicine; Emergency Provider Emergency Medicine; PCP Family Medicine; Visit Provider Student in an Organized Health Care Education/Training Program
PROC: 0FPB8DZ Removal of Intraluminal Device from Hepatobiliary Duct, Via Natural or Artificial Opening Endoscopic (ICD-10-PCS; CPT 43260; principal; 2024-02-02 16:00)
PROC: 0FT44ZZ Resection of Gallbladder, Percutaneous Endoscopic Approach (ICD-10-PCS; CPT 47610; principal; 2024-02-04 07:40)
DX: K80.51 Calculus of bile duct without cholangitis or cholecystitis with obstruction (principal); G93.41 Metabolic encephalopathy; I69.354 Hemiplegia and hemiparesis following cerebral infarction affecting left non-dominant side; E11.43 Type 2 diabetes mellitus with diabetic autonomic (poly)neuropathy; J44.9 Chronic obstructive pulmonary disease, unspecified; Z79.4 Long term (current) use of insulin; F32.A Depression, unspecified; K31.84 Gastroparesis; K83.8 Other specified diseases of biliary tract; E78.5 Hyperlipidemia, unspecified; M19.90 Unspecified osteoarthritis, unspecified site; F17.210 Nicotine dependence, cigarettes, uncomplicated; R00.0 Tachycardia, unspecified; E66.3 Overweight; R53.1 Weakness; Z79.51 Long term (current) use of inhaled steroids; Z79.82 Long term (current) use of aspirin; Z68.29 Body mass index [BMI] 29.0-29.9, adult; R33.9 Retention of urine, unspecified; N40.0 Benign prostatic hyperplasia without lower urinary tract symptoms
CPT/HCPCS: 36415; 70450; 70496; 70498; 71045; 74300; 74330; 76000; 76705; 77012; 80048; 80053; 80074; 80076; 82105; 82140; 82378; 82390; 82525; 82728; 82784; 82787; 82962; 83516; 83690; 83735; 84100; 84165; 84443; 84484; 85025; 85610; 85730; 86225; 86235; 86256; 86301; 86334; 86645; 86664; 86665; 86787; 87631; 88108; 88304; 88305; 88307; 88313; 93005; 94640; 94668; 97162; 97165; 99156; 99252; 99285; J7030; J7120; Q9967; A4216; G0463; J0744; J2405

== ENCOUNTER → 2024-02-28 | Outpatient (CLI) | payer MEDICARE, OTHER, SELFPAY ==
[2024-02-29 04:07] LABS: Carbohydrate AG 19-9 265 U/mL (0-35)
== END | disposition home or self-care (01) ==
PROVIDERS: PCP Family Medicine; Referring Provider Internal Medicine Gastroenterology; Visit Provider Internal Medicine Gastroenterology
DX: Q44.3 Congenital stenosis and stricture of bile ducts (principal)
CPT/HCPCS: 36415; 86301

== ENCOUNTER 2024-03-02 08:00 | Day surgery (SDC) | payer MEDICARE, OTHER, SELFPAY ==
[2024-03-02] VITALS (13 sets, daily range): BP systolic 127–161; BP diastolic 65–79; PULSE 61–87; RESP 12–63; TEMP 36.3–36.9; O2SAT 88–98; BMI 28.3
[2024-03-02] MEDS: Lactated Ringers 1,000 ML 15 ML IV (08:36)
--- NOTE | 2024-03-02 08:40 | EKG12_ITS ---
Test Reason : irregular HR Blood Pressure : / mmHG Vent. Rate : 066 BPM Atrial Rate : 066 BPM P-R Int : 176 ms QRS Dur : 072 ms QT Int : 408 ms P-R-T Axes : 067 -20 046 degrees QTc Int : 427 ms Sinus rhythm with Premature atrial complexes Low voltage QRS Borderline ECG When compared with ECG of 04-FEB-2024 05:34, No significant change was found Confirmed by Walter Zamorano ([id number]), newspaper managing editor UMANG TURNER ([id number]) on 03/02/2024 1:29:50 PM Referred By: Zeus Churhc Confirmed By:Walter Zamorano
[2024-03-02 09:02] LABS: Bedside Glucose 202 mg/dL (74-106)
--- NOTE | 2024-03-02 09:21 | HP.PCM_ITS ---
History and Physical Patient returns, 68-year-old male who has been on maximal medical therapy with Flomax and Proscar and still can't urinate. We tried avoiding trial with no success on cystoscopy has significant obstruction inside the prostate. Patient came back to discuss options today. ALLERGIES: penicillin MEDICATIONS: Flomax 0.4 mg capsule 1 capsule PO Q HS Flomax 0.4 mg capsule 1 capsule PO BID Proscar 5 mg tablet 1 tablet PO Daily Atorvastatin Calcium 80 mg tablet Effexor Xr 150 mg capsule, ext release 24 hr Humalog Lantus Oxybutynin Chloride Er 10 mg tablet, extended release 24 hr 1 tablet PO Daily Ariadne PAST SURGICAL HISTORY: Shoulder Surgery (Unspecified) PAST MEDICAL HISTORY: Benign prostatic hyperplasia with lower urinary tract symptoms - 02/16/2024, - 02/14/2024, - 12/13/2023, - 09/12/2023, - 05/12/2023, - 03/31/2023 Other retention of urine - 02/16/2024, - 02/14/2024 Elevated prostate specific antigen [PSA] - 12/13/2023, - 09/12/2023, - 05/12/2023 Urgency of urination - 12/13/2023, - 03/31/2023 Bronchitis, not specified as acute or chronic Emphysema, unspecified Type 2 diabetes mellitus without complications Unspecified hearing loss, unspecified ear Immunizations: None FAMILY HISTORY: Alzheimer's Disease - Runs in Family Diabetes - Runs in Family SOCIAL HISTORY: Marital Status: Preferred Language: Kyrgyz; Race: White Current Smoking Status: Patient smokes. Tobacco Use Assessment Completed: Used Tobacco in last 30 days? Does not use smokeless tobacco. Does drink. Does not use drugs. Drinks 2 caffeinated drinks per day. Has not had a blood transfusion. Notes: Had COVID vac REVIEW OF SYSTEMS: Constitutional: Patient denies fever, chills, weight loss, and weight gain. Genitourinary: Patient reports frequent urination. Patient denies urinary retention, get up at night to void, urinary incontinence, painful urination, blood in the urine, frequent uti's, history of stones, difficulty starting stream, weak stream/scanty, and bedwetting. Hematologic/Lymphatic: Patient denies abnormal bleeding, blood transfusion, swollen lymph nodes, deep venous thrombosis, and pulmonary embolism. Notes: Reviewed previous review of systems 02/16/2024. No changes. VITAL SIGNS: 02/21/2024 09:45 AM Weight 220 lb / 99.79 kg Height 73 in / 185.42 cm BP 90/56 mmHg Hypertension follow-up recommended with primary provider/alternative provider. BMI 29.0 kg/m? - BMI Counseling was provided. PHYSICAL EXAM: Constitutional: Well-nourished. No physical deformities. Normally developed. Good grooming. Neck: Neck symmetrical, not swollen. Normal tracheal position. Respiratory: No labored breathing, no use of accessory muscles. Cardiovascular: Normal temperature, normal extremity pulses, no swelling, no varicosities. Lymphatic: No enlargement of neck, axillae, groin. Skin: No paleness, no jaundice, no cyanosis. No lesion, no ulcer, no rash. Neurologic / Psychiatric: Oriented to time, oriented to place, oriented to person. No depression, no anxiety, no agitation. Gastrointestinal: No mass, no tenderness, no rigidity, non obese abdomen. Eyes: Normal conjunctivae. Normal eyelids. Ears, Nose, Mouth, and Throat: Left ear no scars, no lesions, no masses. Right ear no scars, no lesions, no masses. Nose no scars, no lesions, no masses. Normal hearing. Normal lips. Scrotum: No lesions. No edema. No cysts. No warts. Musculoskeletal: Normal gait and station of head and neck. Epididymides: Right: no spermatocele, no masses, no cysts, no tenderness, no induration, no enlargement. Left: no spermatocele, no masses, no cysts, no tenderness, no induration, no enlargement. Testes: No tenderness, no swelling, no enlargement left testes. No tenderness, no swelling, no enlargement right testes. Normal location left testes. Normal location right testes. No mass, no cyst, no varicocele, no hydrocele left testes. No mass, no cyst, no varicocele, no hydrocele right testes. Urethral Meatus: Normal size. No lesion, no wart, no discharge, no polyp. Normal location. Penis: Penile morales catheter present. Circumcised, no foreskin warts, no cracks. No dorsal peyronie's plaques, no left corporal peyronie's plaques, no right corporal peyronie's plaques, no scarring, no shaft warts. No balanitis, no meatal stenosis. Complexity of Data: Source Of History: Patient Records Review: Previous Doctor Records, Previous Hospital Records, Previous Patient Records Urine Test Review: Urinalysis 09/12/23 03/31/23 PSA Total PSA 5.81 ng/mL 7.76 ng/mL Notes [facility] [address] [place], [place], [address] This test was performed using the TPSA assay method for the [employer] chemistry system. Values obtained with different assay methods cannot be used interchangably. When changing PSA assays in the course of monitoring a patient, additional sequential testing should be carried out to confirm baseline values. [facility] [address] [place], [place], [id number] This test was performed using the TPSA assay method for the [employer] chemistry system. Values obtained with different assay methods cannot be used interchangably. When changing PSA assays in the course of monitoring a patient, additional sequential testing should be carried out to confirm baseline values. PROCEDURES: None ASSESSMENT: ICD-10 Details 1 Benign prostatic hyperplasia with lower urinary tract symptoms - N40.1 Acute, Systemic Symptoms 2 Other retention of urine - R33.8 Acute, Systemic Symptoms PLAN: Document Letter(s): Created for Patient: Clinical Summary Notes: 68-year-old male with BPH obstruction is on Flomax and Proscar has failed to voiding trials on cystoscopy has significant obstruction plan to proceed with transurethral resection of the prostate and will set him up for surgery we had an early cancellations will get him on next week for TURP.
--- NOTE | 2024-03-02 09:25 | DCINST_ITS ---
Discharge Instructions Diet Discharge Diet: No restrictions Activity Discharge Activity: Return to Normal Activity and May Not Drive (while taking narcotic pain medications.) Dressing / Incision Call your doctor if you observe: Fever of 101 or Higher Follow Up Care Please Follow Up With: Zeus Church MD When: Call [phone] for an appointment Test Results: Test results from this visit will be discussed in further detail at your follow- up appointment, if applicable. Discharge Plan Admission Primary Reason for Your Visit: turp Attending Provider: Zeus Church Primary Care Provider: Tommy Markham Discharge Orders/Prescriptions Prescriptions: Continued venlafaxine 150 mg capsule,extended release 24hr 150 mg PO DAILY atorvastatin 80 mg Tablet 80 mg PO QHS Qty: 30 2RF tamsulosin 0.4 mg Capsule 0.4 mg PO BID insulin lispro [Humalog KwikPen Insulin] 100 unit/mL insulin pen 25 unit subcut TID insulin glargine [Lantus Solostar U-100 Insulin] 100 unit/mL (3 mL) insulin pen 53 unit subcut QHS Trelegy Ellipta 100-62.5-25 mcg blister with device 1 ea inhalation Q24H Discontinued aspirin 81 MG tablet,chewable 81 mg PO DAILY No Action finasteride 5 mg tablet 5 mg PO DAILY Referrals / Follow Up: Zeus Church MD [Med Staff - Active Staff] - Tommy Markham MD [Primary Care Provider] - Disposition Disposition (needs filled in before D/C Order can be placed): Home, Self Care
[2024-03-02] MEDS: Cefazolin 2 GM in 0.9% Normal Saline (100mL Bag) 100 ML IV (09:46)
--- NOTE | 2024-03-02 09:55 | PROS_PTH ---
PATIENT: OLGA RODRIGUEZ LOC: [facility] – [place] U#:[id number] AGE/SX: 68/M ROOM: RE03/02/[address]: Dr. Zeus Church MD : [id number] BED: DIS: 03/04/2024 SPEC #: [id number] RECD: 03/02/24 13:30 STATUS: WILBUR REStuart #: [id number] CARLOTTA: 03/02/24 09:[address]: Zeus Church DEPT: SURGICAL PATHOLOGY RECD BY: Zayra Paz ENTERED: 03/02/24 14:24 SP TYPE: TURP OTHR DR: Dr. Tommy Markham MD Tissues: Prostate, NOS Procedures: Surgery Specimen Level IV HEADER OPERATION: Transurethral resection of prostate with Olympus PRE-OP DIAGNOSIS: Benign prostatic hypertrophy TISSUE SUBMITTED: Prostate tissue MICROSCOPIC DIAGNOSIS Prostate tissue, transurethral resection: Benign prostatic hyperplasia, glandular and stromal type. Chronic inflammation. SJ/mr 03/05/24 MICROSCOPIC DESCRIPTION Slides are reviewed. GROSS DESCRIPTION Received is one container labeled with the patient's name and designated prostate tissue. The specimen consists of multiple irregular fragments of pink-macias, rubbery, soft tissue that in aggregate weigh 0.9 gm and measure in aggregate 3.0 x 2.5 x 0.3 cm. The entire specimen is submitted in one cassette. / 03/02/24 TC:5 CPT: 96923
--- NOTE | 2024-03-02 10:19 | OP.PCM_ITS ---
Report of Operation Date of Procedure: 03/02/24 Pre-Operative Diagnosis: BPH with obstruction Post-Operative Diagnosis: The same Surgery/Procedure Performed:: Transurethral resection of the prostate Description of Surgical Findings:: In the preoperative setting I discussed with the patient how the surgery would be done with expect afterwards. We discussed how a prostate resection is done and we discussed the risk of the surgery including, bleeding, infection, retrograde ejaculation, changes with ejaculation or intercourse,. We discussed the possibility that the resection of the prostate may not alleviate his urinary symptoms. We discussed the small risk of developing scar tissue along the urethral channel and strictures. We also discussed the chance of the prostate could grow back and he may need further surgery or treatment in the future for prostate problems. Patient was taken back to the operating room, timeout procedure was performed, he was identified and marked and placed on the operating room table. He underwent general anesthesia. He was placed in dorsolithotomy position. Penis and testicles were prepped and draped in usual sterile fashion. Went into the bladder using the visual obturator with a resectoscope. Once inside the bladder identified the right and left ureteral orifice. I then identified the prostate and the anatomy of the prostate. I marked out the area of the sphincter and the verumontanum was identified. I then proceeded with the prostate resection first resected the median lobe. And then resected the right lobe of the prostate. Then to resect the left lobe of the prostate. I then resected the apical tissue of the prostate. This was a complete resection of all obstructive tissue to improve voiding and relieve obstruction. I then made sure that there was no injury to the sphincter or the verumontanum was still intact. At the end of the resection all the chips were Ellik out of the bladder. I then identified the left and right ureteral orifice and these were confirmed to be in good position and effluxing and not injured. The resectoscope was removed, a 22 Arabic catheter was placed into the bladder on continuous irrigation. And the urine was fairly light pink color and draining normally. He was taken back to the PACU in good condition. Surgeon: Zeus Church Type of Anesthesia: General Drains: 22fr 3 way Admit VTE Documentation VTE Present on Admission: No VTE Mechan Device Prophylaxis: SCD's VTE Pharm Prophylaxis ordered?: No
[2024-03-02 11:14] LABS: Bedside Glucose 147 mg/dL (74-106)
[2024-03-02] MEDS: Ketorolac 15 MG/ML Vial IV (11:52)
[2024-03-02] MEDS: oxyCODONE 5 MG Tablet PO (12:27)
[2024-03-02] MEDS: 0.9% Normal Saline (1000mL) 1,000 ML 125 ML IV (17:53)
[2024-03-02 18:16] LABS: Bedside Glucose 320 mg/dL (74-106)
[2024-03-02] MEDS: 0.9% Saline Lock 10 ML Syringe IV (20:12)
[2024-03-02] MEDS: Insulin Glargine-YFGN 100 UNIT/ML Pen 53 UNIT SC (22:21)
[2024-03-02] MEDS: Ciprofloxacin 400 MG/200 ML BAG 200 MG IV (22:23)
[2024-03-02] MEDS: Atorvastatin Calcium 80 MG Tablet PO (22:26)
[2024-03-02] MEDS: Docusate Sodium 100 MG Capsule 200 MG PO (22:26)
[2024-03-02] MEDS: Venlafaxine XR 150 MG Capsule PO (22:26)
[2024-03-02] MEDS: Tamsulosin HCl 0.4 MG Capsule PO (22:26)
[2024-03-02 22:52] LABS: Bedside Glucose 287 mg/dL (74-106)
[2024-03-03 02:17] VITALS: BP 151/82; PULSE 72; RESP 18; TEMP 36.7; O2SAT 96
[2024-03-03] MEDS: 0.9% Normal Saline (1000mL) 1,000 ML 125 ML IV (02:20)
[2024-03-03] MEDS: oxyCODONE 5 MG Tablet PO (02:26)
[2024-03-03 02:28] VITALS: BMI 28.3
[2024-03-03 06:26] VITALS: BMI 28.3
[2024-03-03 07:14] VITALS: PULSE 70; RESP 16
[2024-03-03] MEDS: Ipratropium/Albuterol Sulfate 3 ML AMPUL.NEB INHALATION ×2 (07:14→13:42)
[2024-03-03] MEDS: Budesonide Respules 0.5 MG/2 ML AMPUL.NEB. INHALATION (07:14)
[2024-03-03] MEDS: Insulin Lispro 100 UNIT/ML INSULN.PEN 25 UNIT SC ×3 (07:58→17:32)
[2024-03-03] MEDS: Docusate Sodium 100 MG Capsule 200 MG PO ×2 (07:58→20:43)
[2024-03-03] MEDS: Finasteride 5 MG Tablet PO (07:58)
[2024-03-03] MEDS: Tamsulosin HCl 0.4 MG Capsule PO ×2 (07:58→20:43)
[2024-03-03] MEDS: Venlafaxine XR 150 MG Capsule PO (07:58)
[2024-03-03 08:00] VITALS: BP 146/72; PULSE 76; RESP 14; TEMP 36.6; O2SAT 96
[2024-03-03 09:23] LABS: Bedside Glucose 160 mg/dL (74-106)
[2024-03-03 09:28] VITALS: BMI 28.3
[2024-03-03] MEDS: Ciprofloxacin 400 MG/200 ML BAG 200 MG IV (10:24)
[2024-03-03] MEDS: 0.9% Saline Lock 10 ML Syringe IV (11:17)
[2024-03-03] MEDS: Ketorolac 15 MG/ML Vial IV (11:17)
[2024-03-03 12:16] LABS: Bedside Glucose 249 mg/dL (74-106)
[2024-03-03 13:28] VITALS: BMI 28.3
[2024-03-03 13:42] VITALS: PULSE 68; RESP 17
[2024-03-03 17:28] VITALS: BMI 28.3
[2024-03-03 17:42] VITALS: BP 132/65; PULSE 66; RESP 14; TEMP 36.4; O2SAT 97
[2024-03-03 17:57] LABS: Bedside Glucose 153 mg/dL (74-106)
[2024-03-03 20:32] VITALS: BP 149/66; PULSE 61; RESP 16; TEMP 36.6; O2SAT 96
[2024-03-03] MEDS: Insulin Glargine-YFGN 100 UNIT/ML Pen 53 UNIT SC (20:40)
[2024-03-03] MEDS: Atorvastatin Calcium 80 MG Tablet PO (20:44)
[2024-03-03 20:45] VITALS: BMI 28.3
[2024-03-03] MEDS: Ciprofloxacin 500 MG Tablet PO (20:51)
[2024-03-03 21:15] LABS: Bedside Glucose 232 mg/dL (74-106)
[2024-03-04 02:49] VITALS: BP 157/78; PULSE 64; RESP 18; TEMP 36.6; O2SAT 96
--- NOTE | 2024-03-04 06:05 | NURSING ---
Pt accidently pulled morales catheter while ambulating from chair to bed, which caused it to reposition slightly. Pt reported 8/10 pain and discomfort. This nurse pulled morales out since pt was visibly uncomfortable and dr's orders were placed to discontinue. Monitored urine output. Pt had no pain while urinating but did have frequency and urgency. Voided small amounts at a time at first but increased as the time went on. Pt's urine was pale yellow this morning, no blood clots. Ambulated to the bathroom with no problems as a standby assist.
--- NOTE | 2024-03-04 08:27 | PCM.PN.GU ---
Subjective Subjective morales is out able to void home today without morales Objective Data Objective Data Vital Signs: Vital Signs Temp Pulse Resp BP Pulse Ox O2 Del Method O2 Flow Rate 97.8 F 64 18 157/78 H 96 Room Air 2 03/04/24 02:49 03/04/24 02:49 03/04/24 02:49 03/04/24 02:49 03/04/24 02:49 03/04/24 02:50 03/03/24 02:17 Oxygen Flow Rate (L/min) 2 Oxygen Delivery Method Room Air Weight: 94.619 kg Body Mass Index (BMI) 28.3 Intake & Output: Intake and Output for Last 24 Hours 03/02/24 03/03/24 03/04/24 23:59 23:59 23:59 Intake Total 1778.5 / 1778.5 2056.25 / 2056.25 Output Total 1300 / 1300 1800 / 1800 530 / 530 Balance 478.5 / 478.5 256.25 / 256.25 -530 / -530 Lab / Micro Data Labs: Laboratory Results - last 24 hr 03/03/24 07:53: POC Glucose 160 H 03/03/24 11:54: POC Glucose 249 H 03/03/24 17:30: POC Glucose 153 H 03/03/24 20:39: POC Glucose 232 H
[2024-03-04] MEDS: Ciprofloxacin 500 MG Tablet PO (09:02)
[2024-03-04] MEDS: Venlafaxine XR 150 MG Capsule PO (09:03)
[2024-03-04] MEDS: Docusate Sodium 100 MG Capsule 200 MG PO (09:03)
[2024-03-04] MEDS: Finasteride 5 MG Tablet PO (09:03)
[2024-03-04] MEDS: Tamsulosin HCl 0.4 MG Capsule PO (09:03)
[2024-03-04] MEDS: Insulin Lispro 100 UNIT/ML INSULN.PEN 25 UNIT SC (09:13)
[2024-03-04 09:30] VITALS: BP 160/79; PULSE 68; RESP 15; TEMP 36.6; O2SAT 99
[2024-03-04 15:56] LABS: Bedside Glucose 124 mg/dL (74-106)
== END 2024-03-04 10:23 | disposition home or self-care (01) ==
LOC: SDC 08:01 → AC 08:02 → MS3 16:50
PROVIDERS: PCP Family Medicine; Referring Provider Urology; Visit Provider Urology
PROC: 0VT08ZZ Resection of Prostate, Via Natural or Artificial Opening Endoscopic (ICD-10-PCS; CPT 52601; principal; 2024-03-02 09:45)
DX: N40.1 Benign prostatic hyperplasia with lower urinary tract symptoms (principal); J43.9 Emphysema, unspecified; E11.9 Type 2 diabetes mellitus without complications; R33.8 Other retention of urine; F17.200 Nicotine dependence, unspecified, uncomplicated; Z79.899 Other long term (current) drug therapy; R35.0 Frequency of micturition; I10 Essential (primary) hypertension; Z79.82 Long term (current) use of aspirin; Z79.85 Long-term (current) use of injectable non-insulin antidiabetic drugs
CPT/HCPCS: 52601; 00914; 82962; 88305; 93005; 94640; 94668; J7030; J7120; A4216; J0744; J2405

== ENCOUNTER → 2024-04-23 | Outpatient (CLI) | payer MEDICARE, OTHER, SELFPAY ==
[2024-04-23 13:29] LABS: PSA,Total- Diagnostic 1.48 ng/mL (0.0-4.0)
== END | disposition home or self-care (01) ==
LOC: LAB 08:48
PROVIDERS: PCP Family Medicine; Visit Provider Urology
DX: R97.20 Elevated prostate specific antigen [PSA] (principal)
CPT/HCPCS: 36415; 84153

== ENCOUNTER → 2024-05-22 | Outpatient (CLI) | payer MEDICARE, OTHER, SELFPAY ==
[2024-05-22 10:08] LABS: Erythrocyte Sedimentation Rate 13 mm/hr (0-20)
[2024-05-22 11:13] LABS: CRP 3.21 mg/L (0.0-3.0)
[2024-05-23 12:09] LABS: Carbohydrate AG 19-9 328 U/mL (0-35)
[2024-05-28 09:07] LABS: Free Kappa Light Chains 29.4 mg/L (3.3-19.4); Free Lambda Light Chains 21.6 mg/L (5.7-26.3); Vitamin B1, Thiamine 168.7 nmol/L (66.5-200.0)
== END | disposition home or self-care (01) ==
LOC: LAB 08:46
PROVIDERS: Internal Medicine Gastroenterology; PCP Family Medicine; Referring Provider Psychiatry & Neurology Neurology; Visit Provider Psychiatry & Neurology Neurology
DX: G62.9 Polyneuropathy, unspecified (principal); E85.4 Organ-limited amyloidosis; Q44.3 Congenital stenosis and stricture of bile ducts; I68.0 Cerebral amyloid angiopathy
CPT/HCPCS: 36415; 82746; 83883; 84425; 85652; 86140; 86301

== ENCOUNTER 2024-06-05 13:00 | Outpatient (RCR) | payer MEDICARE, OTHER, SELFPAY ==
--- NOTE | 2024-04-03 16:33 | HP.PTEVAL_ITS ---
Patient's Visit Information Visit Information Visit Information: OLGA RODRIGUEZ is a 68 year old M referred to Physical Therapy by Dr. Tommy Markham MD with a diagnosis of CVA. Date of Evaluation: 03/29/24 Physical Therapist: Trista Blevins PT, Cert MDT Visit Plan Frequency: 2x /Week Duration: 4-6 Weeks Plan: Work on forward weight shifting getting up out of a chair & going up stairs. Also work on increasing stride length, picking feet up and narrowing NIC during gait on level surfaces. Please give written HEP for LE stretching: Hip flexors, HS's and ankles. 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 PATIENTS REPORTS CAT SCAN IN DEC/JANUARY 2024 SHOWS HE HAD A LOT OF MICRO MONTALVO. PATIENTS REPORTS HE HAD HIS FIRST STROKE 9 YEARS AGO. HOSPITALIZED ABOUT 7 TIMES SINCE AUG 2023 DUE TO HAVING STONES IN HIS BILE DUCT - VOMITING - EVENTUALLY HAD GALLBALDDER REMOVED AND HAS BEEN DOING BETTER. PATIENTS REPORTS HE IS ACTUALLY DOING BETTER NOW THAN WHEN HE WAS HERE IN AUG 2023 AND NOW THAT HE IS HEALTHIER HE IS READY TO TRY TO GET BACK TO EXERCISING. HAS NOT BEEN ABLE TO EXERCISE SINCE DEC 2023 UNTIL HE TRIED TO GO BACK ONCE LAST WEEK AND TUESDAY. HIS STATES HE WAS A FAMILY FRIEND LAST WEEK AND IT WENT OK BUT TUESDAY HE OVER DID IT ON HIS OWN AND HE NEEDED HELP TO THE CAR WHERE HIS WAS WAITING FOR HIM. PATIENT REPORTS THAT SINCE THE SECOND STROKE IF HE GETS TIRED OR DEHYDRATED OR HIS SUGAR GETS LOW IT REALLY WIPES HIM OUT. Treatment this episode: BABY ASPIRIN AND STATIN Gait: UNSTEADY. NOT USING ANY AD'S. STATES HE DOESN'T USE WALKER OR CANE WHEN HE SHOULD. PATIENT REPORTS HE DOESN'T USE THEM ANYMORE BECAUSE HE IS DOING BETTER. PATIENT AND DENY ANY FALLS SINCE APPROX JANUARY 2024. Bowel or Bladder Dysfunction: NO Unexplained weight loss: NO PMH/Recent major surgery: IDDM, BEING TESTED FOR CANCER, R SHLD SX - A LONG TIME AGO Objective Objective: THIS PATIENT AMBULATES INDEP'LY INTO PT WITHOUT ANY AD'S WITH DE CREASED CADANCE, WIDE NIC, CHIARA LE EXTERNAL ROTATION/TOEING OUT AND VERY SHORT CHIARA STRIDE LENGTH WITH DECREASED HEEL STRIKE AND TOE OFF PHASES OF GAIT. HE IS accompanied BY HIS . Transfers: PATIENT IS UNABLE TO TRANSFER SIT TO STAND WITHOUT UE ASSIST. Sensory deficit: CHIARA LE LIGHT TOUCH SENSATION IS GROSSLY INTACT AND SYMMETRICAL ROM deficit: VERY TIGHT CHIARA LE HIP FLEXORS, HS AND GASTROC-SOLEUS COMPLEX'S. Motor deficit: L LE: HIP 4-/5, KNEE 4-/5, ANKLE 4-/5. R LE: 4/5, KNEE 4/5, ANKLE 4/5 Core strength: FAIR. Sitting Balance: Good Standing Balance: See FGA below Other: See STS and TUG test results below Balance/Special Test Scores Functional Gait Assessment Score: 16 % Disability: 46.6700 Lower Extremity Functional Score: 25 TUG Test Time Seconds: 25.28 30 Second Chair Rise Test Seconds: 4 Goals Goal 1:: FCA TO REDUCE FALL RISK Goal Time Frame: 4-6 Weeks Goal 2:: PATIENT WILL BE ABLE TO TRANSFER INDEP'LY SIT TO STAND WITHOUT UE ASSIST Goal Time Frame: 4-6 Weeks Goal 3:: PATIENT WILL BE ABLE TO ASCEND AND DESCEND STEPS RECIPROCALLY WITH ONE HR SAFELY AND INDEP'LY Goal Time Frame: 4-6 Weeks Goal 4:: PATIENT AND PATIENTS WILL REPORT AT LEAST 75% RETURN BACK TO NORMAL GAIT AND SAFETY Goal Time Frame: 4-6 Weeks Goal 5:: PATIENT WILL BE ABLE TO RETURN BACK TO INDEP GYM PROGRAM AT [employer] SAFELY. Goal Time Frame: 4-6 Weeks Rehabilitation Potential Physical Therapy Diagnosis: GAIT IMPAIRMENT Rehabilitation Potential: Fair Anticipated Interventions Patient/Client Instruction: Educate patient on: Condition, Plan of Care and Risk Factors For the Purpose of:: To improve self management Therapeutic Exercise to Include: Strength training, Endurance training, Balance training, Gait and locomotor training and Neuromotor development For the Purpose of:: To improve muscle performance and motor function, To increase tolerance to activity/condition/position, To improve ability of physical actions for home/community/work/leisure, To improve gait and locomotor functions, To improve endurance, To improve balance and To improve safety with gait Text: Thank you for the opportunity to evaluate your patient. For Medicare and Medicare HMO plans, please review the plan of care and approve it. It will need to be FAXED BACK to us at [phone] for Medicare purposes. For Medicare only, by signing this I certify the plan of care. Please let me know if there are questions or concerns regarding this plan of care. Physician Signature: Date:
--- NOTE | 2024-05-01 14:04 | HP.PTREVAL ---
Re-Evaluation Intro: Dr. Tommy Markham MD, It has been my pleasure to treat OLGA RODRIGUEZ over the last 10 visits for CVA. Please see the progress note below for an update on the physical therapy plan of care! Subjective Subjective: PATIENT REPORTS HE IS GETTING BETTER. HE STATES GETTING UP AND DOWN FROM CHAIRS IS MUCH BETTER AND HIS WALKING HAS IMPROVED. HE REPORTS HE HAS BEEN USING HIS CANE FOR THE MOST PART IF HE IS OUT AND ABOUT BUT NOT IN THE HOUSE. HE DENIES ANY FALLS. HE MISPLACED HIS CANE AFTER GOINGTO THE [place] TODAY. HE REPORTS WHEN HE GOES TO [place] NOW THE EX'S ARE DEFINATELY EASIER. Objective Objective/Function: PATIENT IS MAKING SLOW PROGRESS AND IS A GOOD CANDIDATE TO CONTINUE PT. HE AND HIS ARE AGREEABLE. THIS PATIENT AMBULATES INDEP'LY INTO PT WITHOUT ANY AD'S WITH DECREASED CADANCE, WIDE NIC, CHIARA LE EXTERNAL ROTATION/TOEING OUT AND VERY SHORT CHIARA STRIDE LENGTH WITH DECREASED HEEL STRIKE AND TOE OFF PHASES OF GAIT. HE IS accompanied BY HIS . HE MISPLACED HIS CANE. Transfers: PATIENT IS UNABLE TO TRANSFER SIT TO STAND WITHOUT UE ASSIST. See STS and TUG test results below Plan Plan Plan: CONTINUE PT 2X'S A WK X 10 VISITS. Work on forward weight shifting getting up out of a chair & going up stairs. Also work on increasing stride length, picking feet up and narrowing NIC during gait on level surfaces. Balance/Gait/Functional tests Balance/Special Test Scores Functional Gait Assessment Score: 16 % Disability: 100 Lower Extremity Functional Score: 30 TUG Test Time Seconds: 21.71 Tug Test: 20-30sec.=variable mobility 30 Second Chair Rise Test Seconds: 7 Goals Goals Goal 1:: FCA TO REDUCE FALL RISK Goal Time Frame: 4-6 Weeks Goal 2:: PATIENT WILL BE ABLE TO TRANSFER INDEP'LY SIT TO STAND WITHOUT UE ASSIST Goal Time Frame: 4-6 Weeks Goal Progress: Progressing Goal 3:: PATIENT WILL BE ABLE TO ASCEND AND DESCEND STEPS RECIPROCALLY WITH ONE HR SAFELY AND INDEP'LY Goal Time Frame: 4-6 Weeks Goal 4:: PATIENT AND PATIENTS WILL REPORT AT LEAST 75% RETURN BACK TO NORMAL GAIT AND SAFETY Goal Time Frame: 4-6 Weeks Goal Progress: Progressing Goal 5:: PATIENT WILL BE ABLE TO RETURN BACK TO INDEP GYM PROGRAM AT [employer] SAFELY. Goal Time Frame: 4-6 Weeks Goal Progress: Progressing Goal 6:: NEW GOAL: PATIENT WILL BE ABLE TO COMPLETE TUG IN LESS THAN 20 SEC WITH CANE. Goal Time Frame: 2-4 Weeks Anticipated Interventions Anticipated Interventions Patient/Client Instruction: Educate patient on: Condition, Plan of Care and Risk Factors For the Purpose of:: To improve self management Therapeutic Exercise to Include: Strength training, Endurance training, Balance training, Gait and locomotor training and Neuromotor development For the Purpose of:: To improve muscle performance and motor function, To increase tolerance to activity/condition/position, To improve ability of physical actions for home/community/work/leisure, To improve gait and locomotor functions, To improve endurance, To improve balance and To improve safety with gait Re-Evaluation Ending Re-evaluation ending: Please do not hesitate to contact me at [phone] by phone or if you have questions or concerns regarding this new plan of care! Sincerely, Trista Blevins, PT, Cert MDT
--- NOTE | 2024-06-05 14:41 | HP.PTDCSUM ---
Discharge Summary D/C summary: It has been my pleasure to treat OLGA RODRIGUEZ referred by Dr. Tommy Markham MD, with the diagnosis of CVA for a total of 19 visit(s). Discharge Date: 06/05/24 Please see the following information for a summary of their discharge status. Subjective Subjective: PATIENT REPORTS HE ABOUT HAS THE ROUTINE IN HERE DOWN PAT. STATES HE REALIZES HE ISN'T GETTING BETTER AT IT. HE ALSO REPORTS HE IS STILL GOING TO [employer] AND USUALLY GOES WITH THEIR FAMILY FRIEND BUT HAS GONE BY HIMSELF. HIS IS WITH HIM TODAY AND SHE REPORTS HE IS NON-COMPLIANT WITH HOME EX'S AND IS INACTIVE AT HOME. Overall Improvement % Improvement: 50 Objective Objective/Function: UPON ARRIVAL, PATIENT AMBULATES INTO PT WITH STRAIGHT CANE AND CG BY THIS PT WITH GAIT BELT. HE STUMBLED ONCE ON THE WAY BACK TO THE TREATMENT ROOM BUT REGAINED HIS BALANCE INDEP'LY. HE WAS SOB AFTER AMBULATING APPROX 300 FEET. HE IS UNABLE TO TRANSFER SIT TO STAND WITHOUT UE ASSIST. HE WAS ALSO SOB DURING 30 SEC STS TEST AND TUG TEST - SEE RESULTS BELOW. PATIENT'S BREATHING WAS NOT LABORED AND PATIENT DID NOT LOOK IN DISTRESS WITH HIS BREATHING RECOVERING QUICKLY WITH REST. PATIENT. PATIENT IS CONTINUING TO STUGGLE WITH WEIGHT SHIFTING FORWARD WHEN GETTING UP OUT OF A CHAIR AND GOING UP STAIRS. HE ALSO STILL HAS DECREASED STRIDE LENGTH, NARROW BASE OF SUPPORT, DIFFICULTY PICKING UP HIS FEET, AND IS STAGGERING AT TIMES WHEN DISTRATED WITH GAIT. HE REMAINS A FALL RISK AND THIS HAS BEEN REMAINING THE SAME SINCE LAST RE-CHECK. POSSIBLY BEING AT MAX POTENTIAL WAS DISCUSSED WITH PATIENT AND HIS AND THE PATIENT STATES HE KIND OF EXPECTED THAT. DOING MAINTENANCE THERAPY WAS GIVEN AN OPTION BUT THEY DECIDED NOT TO SCHEDULE AT THIS TIME. Goals Goal 1:: FCA TO REDUCE FALL RISK Goal 2:: PATIENT WILL BE ABLE TO TRANSFER INDEP'LY SIT TO STAND WITHOUT UE ASSIST Goal Progress: Not Progressing Goal 3:: PATIENT WILL BE ABLE TO ASCEND AND DESCEND STEPS RECIPROCALLY WITH ONE HR SAFELY AND INDEP'LY Goal Progress: Not Progressing Goal 4:: PATIENT AND PATIENTS WILL REPORT AT LEAST 75% RETURN BACK TO NORMAL GAIT AND SAFETY Goal Progress: Not Progressing Goal 5:: PATIENT WILL BE ABLE TO RETURN BACK TO INDEP GYM PROGRAM AT [employer] SAFELY. Goal Progress: Progressing Goal 6:: NEW GOAL: PATIENT WILL BE ABLE TO COMPLETE TUG IN LESS THAN 20 SEC WITH CANE. Goal Progress: Not Progressing Plan Plan: D/C TO INDEP EX AT HOME AND [employer]. D/C Information d/c sentence: If there are questions or concerns regarding this patient's physical therapy, please feel free to call me at [phone]. Thank you for the referral of this patient. Sincerely, Trista Blevins, PT, Cert MDT Balance/Gait/Functional tests Balance/Special Test Scores Functional Gait Assessment Score: 16 % Disability: 100 Lower Extremity Functional Score: 19 TUG Test Time Seconds: 22.21 Tug Test: 20-30sec.=variable mobility 30 Second Chair Rise Test Seconds: 7 Improvement % Improvement: 50
== END 2024-06-05 19:00 | disposition home or self-care (01) ==
LOC: PT 13:00
PROVIDERS: PCP Family Medicine; Referring Provider Family Medicine; Visit Provider Family Medicine
DX: Z86.73 Personal history of transient ischemic attack (TIA), and cerebral infarction without residual deficits (principal)
CPT/HCPCS: 97110; 97162; 97530

== ENCOUNTER → 2024-06-13 | Outpatient (CLI) | payer MEDICARE, OTHER, SELFPAY ==
--- NOTE | 2024-06-13 13:05 | CDU_ITS ---
Reason For Study: STROKES Rt. Velocities/BP Lt. Velocities/BP Prox CCA 79.6/14.5 cm/sec. Prox CCA 135/16.3 cm/sec. Mid CCA 88.1/13.5 cm/sec. Mid CCA 85.7/18.1 cm/sec. Dist CCA 71.1/12/6 cm/sec. Dist CCA 69.1/17.5 cm/sec. Prox ICA 75.1CM/14.6 cm/sec. Prox ICA 81.2/14.2 cm/sec. Mid ICA 71.8/16/8 cm/sec. Mid ICA 106.2/25.9 cm/sec. Dist ICA 97.1CM/21.2 cm/sec. Dist ICA 88.6/18.2 cm/sec. Rt. ICA/CCA = .85. Lt. ICA/CCA = 1.2. Prox ECA 106.9/6.9 cm/sec. Prox ECA 138.1/11.2 cm/sec. Rt. Vert. 50.4/5.6 cm/sec. Lt. Vert. 36.0/13.2 cm/sec. Right Extracranial There is heterogeneous, irregular atherosclerotic plaque noted in the right common carotid artery. There is no significant atherosclerotic plaque noted in the right internal carotid artery. There is heterogeneous, irregular atherosclerotic plaque noted in the right external carotid artery. Antegrade flow is noted in the right vertebral artery. Left Extracranial There is no significant atherosclerotic plaque noted in the left common carotid artery. The atherosclerotic plaque causes acoustic shadowing. There is homogeneous, irregular atherosclerotic plaque noted in the left internal carotid artery. There is heterogeneous, irregular atherosclerotic plaque noted in the left external carotid artery. Antegrade flow is noted in the left vertebral artery. Procedure Carotid Duplex 07363. This is a Carotid Duplex examination using B-mode, color flow and specral Doppler. The exam was diagnostic. VL/Carotid Duplex Ultrasound Interpretation Summary Normal right extracranial internal carotid. Mild (<50%) stenosis left extracranial internal carotid. Patent and antegrade vertebrals bilaterally. Ordering Physician: Felton Islas Referring Physician: Felton Islas Performed By: Teresita Guerrero RVT
--- NOTE | 2024-06-13 13:05 | ART_ITS ---
Procedure A bilateral lower extremity continuous wave Doppler with analog waveform analysis and ankle brachial indexes. Left Segmental Pressures Left brachial= 142mmHg. Left posterior tibial artery = 255/NCmmHg. Left dorsalis pedis artery = 255/NCmmHg. Left digit = 142 mmHg. The left dorsalis pedis waveforms are triphasic. The left posterior tibial artery waveforms are triphasic. Right Segmental Pressures Right brachial= 135mmHg. Right dorsalis pedis artery = 172mmHg. Right posterior tibial artery = 255/NCmmHg. Right digit = 138 mmHg. The right dorsalis pedis waveforms are triphasic. The right posterior tibial artery waveforms are triphasic. Indices The right ankle brachial index by the posterior tibial artery is NC. The right ankle brachial index by the dorsalis pedis is 1..21. The right digital-brachial index is .97. The left ankle brachial index by the dorsalis pedis is NC. The left ankle brachial index by the posterior tibial artery is NC. The left digital-brachial index is 1.0. VL/Ankle Brachial Index Interpretation Summary Right KATLYN 1.21, normal. TBI and Doppler/PVR waveforms of the right ankle normal at rest. Left KATLYN not able to be obtained due to non-compressible vessels. TBI and Doppl er/PVR waveforms of the left ankle normal at rest. Ordering Physician: Boris Ospina Referring Physician: BORIS OSPINA MD Performed By: DAMEON SWARTZ RVT RDFL
== END | disposition home or self-care (01) ==
LOC: CVS 12:59
PROVIDERS: PCP Family Medicine; Referring Provider Psychiatry & Neurology Neurology; Visit Provider Psychiatry & Neurology Neurology
DX: R09.89 Other specified symptoms and signs involving the circulatory and respiratory systems (principal); E85.4 Organ-limited amyloidosis; I65.29 Occlusion and stenosis of unspecified carotid artery; I68.0 Cerebral amyloid angiopathy
CPT/HCPCS: 93880; 93922

== ENCOUNTER → 2024-06-28 | Outpatient (CLI) | payer MEDICARE, OTHER, SELFPAY ==
--- NOTE | 2024-06-28 08:54 | NM_ITS ---
CLINICAL: 68 [id number] diabetic male with history of clinical gastroparesis. SEMI-SOLID PHASE 99m Tc SULFUR COLLOID GASTRIC EMPTYING STUDY COMPARISON: Previous gastric emptying report dated 12/08/2023 FINDINGS: The patient was administered 1.0 mCi of 99m Tc sulfur colloid mixed with oatmeal and consumed per os. Image acquisitions in the anterior-posterior projections were obtained for 60 minutes. There is prompt visualization of the stomach. There is no gastroesophageal reflux identified. The T ? raw data emptying was calculated to be 17.14 minutes, (Normal: 12-56 minutes) compared to 69.29 minutes defined on the examination dated 12/08/2023. CO/Gastric Emptying Study IMPRESSION: 1. NORMAL 99m Tc sulfur colloid semi-solid phase (oatmeal) gastric emptying imaging examination. A. There is normal and preserved semi-solid phase gastric emptying compared to normal controls with maintained first order kinetics throughout all components of the examination. (Erlin et al, J Nucl Med Tech 38: 186, 2010). B. Overall compared to the examination dated 12/08/2023, there is normalization of semisolid emptying as described above. Electronically Signed: Bonifacio Diop DO at 10:08 EDT ,
== END | disposition home or self-care (01) ==
LOC: NM 08:51
PROVIDERS: PCP Family Medicine; Referring Provider Internal Medicine Gastroenterology; Visit Provider Internal Medicine Gastroenterology
DX: K31.84 Gastroparesis (principal)
CPT/HCPCS: 78264; A9541

== ENCOUNTER → 2024-07-12 | Outpatient (CLI) | payer MEDICARE, OTHER, SELFPAY ==
[2024-07-17 12:09] LABS: Albumin 3.3 g/dL (2.9-4.4); Alpha-1-Globulins 0.3 g/dL (0.0-0.4); Alpha-2-Globulins 0.9 g/dL (0.4-1.0); Gamma Globulin 0.7 g/dL (0.4-1.8); Immunoglobulin A 294 mg/dL (61-437); Immunoglobulin G 872 mg/dL (603-1613); Immunoglobulin M 17 mg/dL (20-172); PROEL- TOTAL PROTEIN 6.2 g/dL (6.0-8.5)
== END | disposition home or self-care (01) ==
LOC: MTLAB 15:55
PROVIDERS: PCP Family Medicine; Referring Provider Psychiatry & Neurology Neurology; Visit Provider Psychiatry & Neurology Neurology
DX: G62.9 Polyneuropathy, unspecified (principal)
CPT/HCPCS: 36415; 82784; 84165; 86334; 86335

== ENCOUNTER → 2024-07-18 | Outpatient (CLI) | payer MEDICARE, OTHER, SELFPAY ==
[2024-07-20 01:07] LABS: Pancreatic Elastase, Fecal 3 (>200)
== END | disposition home or self-care (01) ==
LOC: MTLAB 09:04
PROVIDERS: PCP Family Medicine; Referring Provider Internal Medicine Gastroenterology; Visit Provider Internal Medicine Gastroenterology
DX: R53.83 Other fatigue (principal); F01.50 Vascular dementia, unspecified severity, without behavioral disturbance, psychotic disturbance, mood disturbance, and anxiety; I67.9 Cerebrovascular disease, unspecified; G62.9 Polyneuropathy, unspecified; Z86.73 Personal history of transient ischemic attack (TIA), and cerebral infarction without residual deficits; K58.9 Irritable bowel syndrome, unspecified
CPT/HCPCS: 82274; 82653; 82705; 83630; 83993; 87177; 87209; 87329; 87493; 87506

== ENCOUNTER 2024-07-20 13:27 | Emergency (ER) | payer MEDICARE, OTHER, SELFPAY ==
[2024-07-20 13:28] VITALS: BP 123/78; PULSE 87; RESP 17; TEMP 36.1; O2SAT 94; BMI 28.0
--- NOTE | 2024-07-20 14:57 | CT_ITS ---
EXAM: CT ABDOMEN AND PELVIS WITH INTRAVENOUS CONTRAST CLINICAL INDICATION: DIARRHEA. LEFT SIDED ABD PAIN. TECHNIQUE: Helically acquired images were obtained of the abdomen and pelvis with intravenous contrast. This CT exam was performed using one or more of the following dose reduction techniques: automated exposure control, adjustment of the mA and/or kV according to patient size, and/or use of iterative reconstruction technique. CONTRAST: IV 100mL Isovue-370 COMPARISON: CT Abdomen Pelvis dated 01/05/2024 FINDINGS: LOWER THORAX: Normal. Lung bases are clear. No cardiomegaly. No pericardial effusion. ABDOMEN: LIVER: Normal. Homogeneous. No focal mass. GALLBLADDER AND BILE DUCTS: Interval cholecystectomy with an endobiliary stent catheter placement. Pneumobilia present. No intra- or extrahepatic biliary ductal dilation. PANCREAS: Normal. No focal cystic or solid mass. SPLEEN: Normal. Normal size without focal cystic or solid mass. ADRENALS: Normal. No nodules. KIDNEYS AND URETERS: Normal. Normal renal size and position. No hydronephrosis. STOMACH AND BOWEL: Moderate gas and stool distention of large bowel and rectum. PELVIS: APPENDIX: No evidence of acute appendicitis. BLADDER: Density within the dependent portion of the urinary bladder on the left may represent contrast. Clot within the urinary bladder is not excluded. REPRODUCTIVE: Prostate gland is slightly smaller in size now measuring 6.5 x 4.4 x 5.7 cm from prior measurement of 6.9 x 4.7 x 6.3 cm. ABDOMEN and PELVIS: INTRAPERITONEAL SPACE: Normal. No ascites or other fluid collection. No free air. BONES/JOINTS: Stable saccular 2.8 cm ectasia of the infrarenal abdominal aorta. SOFT TISSUES: Normal. No discrete abdominal or pelvic wall hernia. VASCULATURE: See above. LYMPH NODES: Normal. No enlarged lymph nodes. TUBES, LINES AND DEVICES: Catheter in place within the proximal pancreatic duct. Pancreatic duct appears increased in size on the current exam. There is persistent 2 cm cystic-appearing lesion within the neck of the pancreas. CT/Abdomen/Pelvis W IV Cont ONLY IMPRESSION: 1. Interval cholecystectomy and placement of endobiliary and endopancreatic duct stents. 2. Stable cystic lesion of the pancreatic neck. 3. Moderate bowel distention suggestive of ileus. 4. Additional findings detailed above Electronically Signed: Ge Oliver MD at 16:10 EDT ,
[2024-07-20] MEDS: 0.9% Normal Saline (1000mL) 1,000 ML 999 ML IV (15:07)
[2024-07-20 15:08] LABS: Absolute Lymphocyte Count 1.34 X10^3/uL (0.83-4.51); Absolute Neutrophil Count 7.7 X10^3/uL (2.0-7.7); Basophil# 0.03 X10^3/uL; Basophil% 0.3 % (0-1); Eosinophil# 0.45 X10^3/uL; Eosinophils% 4.4 % (0-5); Hematocrit 38.7 % (40-54); Hemoglobin 12.5 g/dL (13.0-16.5); Lymphocyte # 1.34 X10^3/ul (0.83-4.51); Lymphocyte % 13.1 % (19-41); Mean Corp Hgb Conc 32.3 g/dL (32-36); Mean Corpuscular Hgb 28.2 pg (27.0-32.0); Mean Corpuscular Volume 87.4 fL (80-94); Mean Platelet Vol. 12.9 fl (6.2-12.0); Monocyte# 0.66 X10^3/uL; Monocyte% 6.5 % (0-10); NRBC Flagged by Analyzer 0 % (0-5); Neutrophil # 7.72 X10^3/uL (2.7-7.7); Neutrophil % 75.4 % (47-70); Platelet Count 233 K/mm3 (150-450); RBC Distribution Width CV 12.6 % (11.6-14.6); RBC Distribution Width SD 40.1 fl (35.1-43.9); Red Blood Count 4.43 M/mm3 (4.6-6.2); White Blood Count 10.2 K/mm3 (4.4-11.0)
[2024-07-20 15:25] LABS: ALB/GLOB Ratio 0.8 RATIO (0.9-2.4); AST(SGOT) 7 U/L (15-37); Alanine Aminotransfer ALT/SGPT 13 U/L (16-61); Albumin, Serum 2.9 g/dL (3.2-5.0); Alkaline Phosphatase 98 U/L (45-117); Anion Gap 5 (5-15); BUN 9 mg/dL (7-18); BUN/Creat Ratio 8.1 RATIO (10-20); Calcium,Total 8.5 mg/dL (8.5-10.1); Chloride 108 mmol/L (98-107); Creatinine, Serum 1.11 mg/dL (0.70-1.30); EST Glomerular Filtration Rate 70 mL/min (>60); Est Glom Filt Rate - Afr Amer 84 mL/min (>60); Estimated Creatinine Clearance 74.73 ml/min; Globulin 3.6 g/dL (2.2-4.2); Glucose 131 mg/dL (74-106); Lipase 33 U/L (13-75); Magnesium 2.3 mg/dL (1.6-2.6); Potassium 3.3 mmol/L (3.5-5.1); Protein, Total 6.5 g/dL (6.4-8.2); Sodium Level 140 mmol/L (136-145)
[2024-07-20] MEDS: MethylPREDNISolone 125 MG/2 ML Vial 60 MG IV (16:47)
--- NOTE | 2024-07-20 17:11 | EDS_ITS ---
HPI HPI - GI History of Present Illness Chief Complaint: Diarrhea Informant: patient Narrative Narrative: Patient is 68-year-old male with history of vascular dementia, stroke, diabetes mellitus and choledocholithiasis status post common bile duct stenting and cholecystectomy presenting with continued diarrhea. Denies any associate abdominal pain. States that usually about an hour after he eats. Denies any black or blood in the stool. States he started having severe diarrhea 16 days ago and has not stopped. He is followed up with his GI doctor, Dr. Hannon, and has been prescribed Lomotil and cholestyramine with no help. States he is having 4-6 bowel movements a day. Did have a negative C. difficile test through [facility] 2 weeks ago and then 2 days ago had further stool studies and blood work from Dr. Hannon's which have all been largely negative as well. does state that his Stool pancreatic elastase was low but she is not sure what this means. This has not been discussed with GI yet. [facility] Medical History History of multiple cerebrovascular accidents (CVAs) Wears hearing aid Loss of hearing Insulin dependent diabetes mellitus Excessive bleeding Smoker Chronic cough History of echocardiogram History of stress test Ramirez catheter in place Chronic cholecystitis Unintentional weight loss of 1-2% body weight within 1 week Elevated liver transaminase level Jaundice Abdominal discomfort Gastroparesis Choledocholithiasis Cholestatic hepatitis Common bile duct dilation Diabetes GERD (gastroesophageal reflux disease) Non-smoker CPAP (continuous positive airway pressure) dependence Sleep apnea COPD (chronic obstructive pulmonary disease) Stroke/cerebrovascular accident Stroke-like symptoms History of diabetes mellitus History of stroke Slurred speech Home Medications ?Medication ?Instructions ?Recorded ?Last Taken ?Type venlafaxine 150 mg 150 mg PO DAILY DEPRESSION 09/05/23 03/01/24 History capsule,extended release 24 hr atorvastatin 80 mg tablet 80 mg PO QHS CHOLESTEROL #30 tabs 09/07/23 03/01/24 Rx finasteride 5 mg tablet 5 mg PO DAILY prostate 01/05/24 03/01/24 History tamsulosin 0.4 mg capsule 0.4 mg PO BID prostate 01/25/24 03/01/24 History fluticasone fur. 100 mcg-umeclid 1 ea inhalation Q24H 02/24/24 03/01/24 History 62.5 mcg-vilant 25 mcg inhalat.powder (Trelegy Ellipta) insulin glargine 100 unit/mL (3 53 unit subcut QHS 02/24/24 03/01/24 History mL) subcutaneous pen (Lantus Solostar U-100 Insulin) insulin lispro 100 unit/mL 25 unit subcut TID 02/24/24 03/01/24 History subcutaneous pen (Humalog KwikPen (U-100) Insulin) diphenoxylate-atropine 2.5 1 tab PO TID PRN diarrhea #90 tabs 07/09/24 Unknown Rx mg-0.025 mg tablet (Lomotil) diphenoxylate-atropine 2.5 1 tab PO TID PRN diarrhea #30 tabs 07/11/24 Unknown Rx mg-0.025 mg tablet (Lomotil) diphenoxylate-atropine 2.5 1 tab PO TID PRN diarrhea #90 tabs 07/11/24 Unknown Rx mg-0.025 mg tablet (Lomotil) cyanocobalamin (vitamin B-12) 1,000 mcg IM ONCE #1 mL 07/12/24 Unknown Clinic 1,000 mcg/mL injection solution colestipol 1 gram tablet 2 g (2 x 1 gram) PO BID 30 days 07/19/24 Unknown Rx #120 tabs [id number] See Rx Instructions .Route 07/20/24 Unknown Rx 3,000-9,500-15,000 unit capsule, .COMPLEX #120 caps delayed rel (Creon) prednisone 20 mg tablet 20 mg PO DAILY #14 tabs 07/20/24 Unknown Rx Allergy/AdvReac Type Severity Reaction Status Date / Time Penicillins Allergy Intermediate Hives Verified 07/20/24 13:27 metformin AdvReac Mild Diarrhea Verified 07/20/24 13:27 Family History Other Alzheimer disease Breast cancer Thyroid cancer Surgical History S/P TURP History of ERCP Status post laparoscopic cholecystectomy History of cholecystectomy S/P ERCP History of ear surgery Social History household members: spouse housing: house Smoking Status: Current every day smoker tobacco type: cigarettes Tobacco: How many years used: 50 how long ago did patient quit smoking: alcohol intake: never substance use type: does not use what type of physical activity do you participate in: none and walking seatbelt use: always do you feel safe at home: Yes ROS ROS ED Constitutional Constitutional ED: Denies chills, fever(s), sweats or weight loss Respiratory/Chest Respiratory/Chest: Denies cough Gastrointestinal Gastrointestinal: Reports diarrhea; Denies abdominal pain, nausea or vomiting Musculoskeletal Musculoskeletal: Denies arthralgias or myalgias Integumentary Denies rash Neurologic Neurologic: Denies headache(s) or weakness Hematologic/Lymphatic Hematologic/Lymphatic: Denies easy bleeding or easy bruising EXAM Physical Exam Const Vital Signs: 07/20/24 13:28 Temperature 96.9 F L Temperature Source Temporal Pulse Rate 87 Respiratory Rate 17 Blood Pressure 123/78 H Blood Pressure Mean 93 Pulse Ox 94 Oxygen Delivery Method Room Air Positive well nourished and well developed General Appearance ED: well developed and NAD HEENT Reports moist mucous membranes Eyes PERRL General Eye ED: Negative for scleral icterus Neck supple Resp normal respiratory effort and clear to auscultation bilaterally Cardio regular rate and regular rhythm GI non-distended GI Narrative: Mild tenderness to palpation on the left side of the abdomen Auscultation: hypoactive bowel sounds Palpation: soft; Negative for guarding Extremity General Extremety ED: Negative for edema General Extremity: Negative for edema Neuro moves all extremities Sensorium / Orientation: alert Motor Exam: Negative for general weakness Psych mental status grossly normal and thought process normal Skin General Skin Exam: Negative for jaundice Lesions: no lesions [facility] MDM Narrative Medical decision making narrative: Patient is evaluated for continued diarrhea. He is nontoxic no acute distress. His vital signs are normal. Clinically does not appear dehydrated but given this story will check labs and give IV fluids. Differential includes not limited to infectious colitis, ischemic colitis, malabsorption, constipation, partial obstruction, exocrine pancreatic insufficiency, pancreatitis and electrolyte abnormalities. CBC shows a mild hemoglobin 12.5 but this is near the patient's baseline. CMP largely normal and he has a normal lipase. Potassium is borderline low at 3.3 which I do not think of is any clinical significance at this point. CT of the abdomen pelvis does not show any acute process but does show interval cholecystectomy and placement of the biliary and pancreatic duct stents, stable cystic lesion of the pancreatic neck, moderate bowel distention suggestive of an ileus however this does not fit the patient's clinical presentation of diarrhea. Case is discussed with the patient's GI doctor, Dr. Hannon. Reviewed his results as well as his prior outpatient results. With the patient stool pancreatic elastase being so low this is suggestive of an exocrine pancreatic insufficiency. He recommend starting the patient on prednisone 20 mg daily as well as given a dose of Solu-Medrol now. In addition we will write the patient for a prescription of Creon to take to help with his digestion. Patient and are informed of these findings. They verbalized agreement understand this plan. At this time I think that patient is appropriate for outpatient follow- up. Given return precautions. Discharged home in stable condition. Lab Data Attestation: I reviewed the patient's lab results. Labs: Laboratory Results - last 24 hr 07/20/24 13:49 WBC 10.2 RBC 4.43 L Hgb 12.5 L Hct 38.7 L MCV 87.4 MCH 28.2 MCHC 32.3 RDW Std Deviation 40.1 RDW Coeff of [place] 12.6 Plt Count 233 MPV 12.9 H Immature Gran % (Auto) 0.300 Neut % (Auto) 75.4 H Lymph % (Auto) 13.1 L [place] % (Auto) 6.5 Eos % (Auto) 4.4 Baso % (Auto) 0.3 Absolute Neuts (auto) 7.7 Absolute Lymphs (auto) 1.34 Nucleated RBC % 0 Sodium 140 Potassium 3.3 L Chloride 108 H Carbon Dioxide 27.0 Anion Gap 5 BUN 9 Creatinine 1.11 Estim Creat Clear Calc 74.73 Est GFR (MDRD) Af Amer 84 Est GFR (MDRD) Non-Af 70 BUN/Creatinine Ratio 8.1 L Glucose 131 H Calcium 8.5 Magnesium 2.3 Total Bilirubin 0.40 AST 7 L ALT 13 L Alkaline Phosphatase 98 Total Protein 6.5 Albumin 2.9 L Globulin 3.6 Albumin/Globulin Ratio 0.8 L Lipase 33 Radiography Diagnostic Testing: Clinical Impression(s) from Imaging Studies Abdomen/Pelvis CT 07/20/24 14:57 IMPRESSION: 1. Interval cholecystectomy and placement of endobiliary and endopancreatic duct stents. 2. Stable cystic lesion of the pancreatic neck. 3. Moderate bowel distention suggestive of ileus. 4. Additional findings detailed above Electronically Signed: Ge Oliver MD at 16:10 EDT , Discharge Plan Triage Chief Complaint: Diarrhea ED Provider: Shanika Beltrán Dx/Rx/DC Orders Clinical Impression: Chronic diarrhea, Exocrine pancreatic insufficiency Instructions: Treating Diarrhea, ED Potassium-Rich Foods Prescriptions: New prednisone 20 mg tablet 20 mg PO DAILY Qty: 14 0RF Creon 3,000-9,500- 15,000 unit capsule,delayed release(DR/EC) See Rx Instructions .ROUTE .COMPLEX Qty: 120 0RF Rx Instructions: 1 cap orally with meals and snack - take before eating;do not exceed 10,000 unit/kg lipase per 24 hrs No Action cyanocobalamin (vitamin B-12) 1,000 mcg/mL solution 1,000 mcg IM ONCE Qty: 1 0RF venlafaxine 150 mg capsule,extended release 24hr 150 mg PO DAILY atorvastatin 80 mg Tablet 80 mg PO QHS Qty: 30 2RF finasteride 5 mg tablet 5 mg PO DAILY tamsulosin 0.4 mg Capsule 0.4 mg PO BID insulin lispro [Humalog KwikPen Insulin] 100 unit/mL insulin pen 25 unit subcut TID insulin glargine [Lantus Solostar U-100 Insulin] 100 unit/mL (3 mL) insulin pen 53 unit subcut QHS Trelegy Ellipta 100-62.5-25 mcg blister with device 1 ea inhalation Q24H diphenoxylate-atropine [Lomotil] 2.5-0.025 mg tablet 1 tab PO TID PRN (Reason: diarrhea) Qty: 90 0RF diphenoxylate-atropine [Lomotil] 2.5-0.025 mg tablet 1 tab PO TID PRN (Reason: diarrhea) Qty: 30 2RF diphenoxylate-atropine [Lomotil] 2.5-0.025 mg tablet 1 tab PO TID PRN (Reason: diarrhea) Qty: 90 1RF colestipol 1 gram tablet 2 g PO BID 30 Days Qty: 120 0RF Primary Care Provider: Tommy Markham Referrals: Tommy Markham MD [Primary Care Provider] - Activity Restrictions/Additional Instructions: Continue to take the other new medication (colestyramine) as prescribed. Your potassium was very mildly low, try to eat some foods with high potassium minute. Continue to follow-up outpatient with Dr. Hannon. Print Language: Pashto Disposition Disposition: Home, Self Care
[2024-07-20 17:14] VITALS: BP 120/69; PULSE 80; RESP 18; TEMP 36.1; O2SAT 96
== END 2024-07-20 17:40 | disposition home or self-care (01) ==
PROVIDERS: Emergency Provider Emergency Medicine; PCP Family Medicine; Visit Provider Emergency Medicine
DX: K52.9 Noninfective gastroenteritis and colitis, unspecified (principal); F01.50 Vascular dementia, unspecified severity, without behavioral disturbance, psychotic disturbance, mood disturbance, and anxiety; J44.9 Chronic obstructive pulmonary disease, unspecified; E11.43 Type 2 diabetes mellitus with diabetic autonomic (poly)neuropathy; F17.210 Nicotine dependence, cigarettes, uncomplicated; K86.81 Exocrine pancreatic insufficiency; Z86.73 Personal history of transient ischemic attack (TIA), and cerebral infarction without residual deficits; Z90.49 Acquired absence of other specified parts of digestive tract; K31.84 Gastroparesis; K21.9 Gastro-esophageal reflux disease without esophagitis; Z79.899 Other long term (current) drug therapy
CPT/HCPCS: 74177; 80053; 83690; 83735; 85025; 96361; 96374; 99283; Q9967; A4216

== ENCOUNTER 2024-08-15 08:47 | Inpatient (IN) | payer MEDICARE, OTHER, SELFPAY ==
[2024-08-15] VITALS (13 sets, daily range): BP systolic 89–114; BP diastolic 40–72; PULSE 67–99; RESP 15–24; TEMP 36.1–37.5; O2SAT 91–100; BMI 28.2; BMI 27.4
--- NOTE | 2024-08-15 09:12 | EKG12_ITS ---
Test Reason : NAUSEA Blood Pressure : / mmHG Vent. Rate : 085 BPM Atrial Rate : 085 BPM P-R Int : 158 ms QRS Dur : 076 ms QT Int : 404 ms P-R-T Axes : 067 -05 066 degrees QTc Int : 480 ms Sinus rhythm with Premature atrial complexes Prolonged QT Abnormal ECG Confirmed by Walter Zamorano [id number]), news copy editor KHRIS VELEZ ([id number]) on 08/17/2024 9:42:54 AM Also confirmed by Walter Zamorano ([id number]), news copy editor KHRIS VELEZ ([id number]) on 08/17/2024 9:43:49 AM Referred By: Confirmed By:Walter Zamorano
--- NOTE | 2024-08-15 09:13 | EDS_ITS ---
HPI History of Present Illness Chief Complaint: Nausea/Vomiting Informant: patient, spouse/S.O. and EMS Narrative Narrative: Patient is a 69-year-old male with history of vascular dementia, prior stroke, neuropathy, COPD, CALLI (on CPAP), choledocholithiasis with stent and follows with Dr. Hannon, prior cholecystectomy 02/04/2024 as well as pancreatic head cyst who is referred to [facility] For biopsy (this is still pending scheduling) and possible extrapancreatic insufficiency presenting from home via EMS after episode of confusion as well as vomiting. Patient had 7 weeks of continued extreme diarrhea. Was started on a medication which does help with his diarrhea throughout the day but he continues to have diarrhea every morning. He had an episode of vomiting at some point last night into his CPAP as well as onto the floor. notes this morning he was too weak to sit up. EMS was called. Patient was hypotensive and EMS was concerned about aspiration. Patient was placed on 2 L of oxygen in the ER. He does not wear oxygen at home. He notes over the past few days he has had some bloating periumbilical abdominal discomfort. states for the past 3 nights has not been eating as much. No fevers reported. Patient has any chest pain or significant shortness of breath at this time. No other complaints or concerns reported. [facility] Medical History History of multiple cerebrovascular accidents (CVAs) Wears hearing aid Loss of hearing Insulin dependent diabetes mellitus Excessive bleeding Smoker Chronic cough History of echocardiogram History of stress test Ramirez catheter in place Chronic cholecystitis Unintentional weight loss of 1-2% body weight within 1 week Elevated liver transaminase level Jaundice Abdominal discomfort Gastroparesis Choledocholithiasis Cholestatic hepatitis Common bile duct dilation Diabetes GERD (gastroesophageal reflux disease) Non-smoker CPAP (continuous positive airway pressure) dependence Sleep apnea COPD (chronic obstructive pulmonary disease) Stroke/cerebrovascular accident Stroke-like symptoms History of diabetes mellitus History of stroke Slurred speech Home Medications ?Medication ?Instructions ?Recorded ?Last Taken ?Type venlafaxine 150 mg 150 mg PO DAILY DEPRESSION 09/05/23 03/01/24 History capsule,extended release 24 hr atorvastatin 80 mg tablet 80 mg PO QHS CHOLESTEROL #30 tabs 09/07/23 03/01/24 Rx finasteride 5 mg tablet 5 mg PO DAILY prostate 01/05/24 03/01/24 History tamsulosin 0.4 mg capsule 0.4 mg PO BID prostate 01/25/24 03/01/24 History fluticasone fur. 100 mcg-umeclid 1 ea inhalation Q24H 02/24/24 03/01/24 History 62.5 mcg-vilant 25 mcg inhalat.powder (Trelegy Ellipta) insulin glargine 100 unit/mL (3 53 unit subcut QHS 02/24/24 03/01/24 History mL) subcutaneous pen (Lantus Solostar U-100 Insulin) insulin lispro 100 unit/mL 25 unit subcut TID 02/24/24 03/01/24 History subcutaneous pen (Humalog KwikPen (U-100) Insulin) diphenoxylate-atropine 2.5 1 tab PO TID PRN diarrhea #90 tabs 07/09/24 Unknown Rx mg-0.025 mg tablet (Lomotil) diphenoxylate-atropine 2.5 1 tab PO TID PRN diarrhea #30 tabs 07/11/24 Unknown Rx mg-0.025 mg tablet (Lomotil) diphenoxylate-atropine 2.5 1 tab PO TID PRN diarrhea #90 tabs 07/11/24 Unknown Rx mg-0.025 mg tablet (Lomotil) cyanocobalamin (vitamin B-12) 1,000 mcg IM ONCE #1 mL 07/12/24 Unknown Clinic 1,000 mcg/mL injection solution prednisone 20 mg tablet 20 mg PO DAILY #14 tabs 07/20/24 Unknown Rx colestipol 1 gram tablet 4 g (4 x 1 gram) PO BID 30 days 08/13/24 Unknown Rx #240 tabs [id number] See Rx Instructions .Route 08/13/24 Unknown Rx 3,000-9,500-15,000 unit capsule, .COMPLEX #300 caps delayed rel (Creon) Allergy/AdvReac Type Severity Reaction Status Date / Time Penicillins Allergy Intermediate Hives Verified 08/02/24 11:26 metformin AdvReac Mild Diarrhea Verified 08/02/24 11:26 Family History Other Alzheimer disease Breast cancer Thyroid cancer Surgical History S/P TURP History of ERCP Status post laparoscopic cholecystectomy History of cholecystectomy S/P ERCP History of ear surgery Social History household members: spouse housing: house Smoking Status: Current every day smoker tobacco type: cigarettes Tobacco: How many years used: 50 how long ago did patient quit smoking: alcohol intake: never substance use type: does not use what type of physical activity do you participate in: none and walking seatbelt use: always do you feel safe at home: Yes ROS ROS ED Constitutional Constitutional ED: Reports other Details: Decreased appetite for the past few days ; Denies chills or fever(s) ENT ENT ED: Denies sore throat Cardiovascular Cardiovascular: Denies chest pain or palpitations Respiratory/Chest Respiratory/Chest: Reports cough; Denies dyspnea Gastrointestinal Gastrointestinal: Reports abdominal pain, diarrhea, nausea and vomiting; Denies constipation or melena Musculoskeletal Musculoskeletal: Denies arthralgias or myalgias Integumentary Denies rash Neurologic Neurologic: Reports weakness; Denies headache(s) or paresthesias Hematologic/Lymphatic Hematologic/Lymphatic: Denies easy bleeding or easy bruising EXAM Physical Exam Const Vital Signs: 08/15/24 08:48 08/15/24 08:52 08/15/24 09:52 Temperature 99.5 F H 99.5 F H 98.9 F Temperature Source Oral Oral Oral Pulse Rate 99 97 82 Respiratory Rate 21 H 24 H 23 H Blood Pressure 89/48 L 89/48 L 92/40 L Blood Pressure Mean 61 61 57 Pulse Ox 91 94 95 Oxygen Delivery Method Room Air Nasal Cannula Nasal Cannula Oxygen Flow Rate (L/min) 2 2 08/15/24 10:00 08/15/24 10:52 08/15/24 11:00 Temperature 98.9 F 98.6 F 97.5 F L Temperature Source Oral Oral Oral Pulse Rate 79 77 75 Respiratory Rate 22 H 22 H 20 H Blood Pressure 92/40 L 103/51 L 108/55 L Blood Pressure Mean 57 68 72 Pulse Ox 93 94 97 Oxygen Delivery Method Nasal Cannula Nasal Cannula Nasal Cannula Oxygen Flow Rate (L/min) 2 2 2 08/15/24 11:50 Temperature 97.9 F Temperature Source Pulse Rate 71 Respiratory Rate 19 H Blood Pressure 107/72 Blood Pressure Mean 83 Pulse Ox 96 Oxygen Delivery Method Oxygen Flow Rate (L/min) Positive well nourished and well developed General Appearance ED: well developed and NAD HEENT Reports dry mucous membranes HEENT Narrative: Normocephalic atraumatic Mouth ED: Yes dry mucous membranes Mouth: dry mucous membranes Eyes PERRL and EOMs intact bilaterally General Eye ED: Negative for pale conjunctiva or scleral icterus Neck supple and no JVD Chest Wall inspection of chest normal and palpation of chest normal Resp normal respiratory effort Resp Narrative: Coarse/rhonchorous breath sounds on the right. Normal breath sounds on the left. Auscultation: Negative for wheezes Cardio regular rate and regular rhythm GI normal to inspection, nondistended, normoactive bowel sounds and non-tender Auscultation: hypoactive bowel sounds Extremity normal to inspection General Extremety ED: Negative for edema General Extremity: Negative for edema Neuro Neuro Narrative: No focal deficits appreciated, speech is not entirely clear however it seems to be more from dry mouth versus dysarthria at this time Sensorium / Orientation: alert Motor Exam: general weakness Psych mental status grossly normal Skin no rashes or lesions noted and no wounds General Skin Exam: Negative for jaundice MDM MDM MDM Narrative Medical decision making narrative: Patient's evaluated for generalized weakness, episode of vomiting and upon arrival has a low-grade temperature of 98.5, is mildly tachypneic and borderline hypotensive. He is placed on 2 days of oxygen as he does go down to 91% just at rest. Concern for possible aspiration as he vomited while wearing his CPAP last night. Differential also includes sepsis, CHF, pneumonia, COVID-19 as well as complication of his prior choledocholithiasis. Patient is given IV fluids. Will obtain infectious workup as well as abdominal labs. Patient currently denying any pain. Chest x-ray viewed by myself as well as radiology does not show any acute infiltrate. Patient's O2 saturation does improve on 2 L while in the emergency room. Patient was found to have acute hypokalemia with potassium of 2.6. His magnesium is normal. His lactate is elevated 2.8 and his bilirubin, AST and ALT as well as alkaline phosphatase are uptrending. This is concerning for acute choledocholithiasis. CBC is pending. RUQ US ordered for further evaluation. Patient has a penicillin allergy and will be started on Rocephin (previously tolerated) as well as Flagyl to cover for possible biliary pathology as well as aspiration pneumonia. Blood pressure improved with fluid resuscitation. Patient started on IV potassium as well. Case discussed with admitting physician as well as [facility], Dr. Hannon. Plan for ERCP tomorrow. Lab Data Attestation: I reviewed the patient's lab results. Labs: Laboratory Results - last 24 hr 08/15/24 09:07 Sodium 138 Potassium 2.6 L* Chloride 105 Carbon Dioxide 23.0 Anion Gap 10 BUN 11 Creatinine 1.26 Estim Creat Clear Calc 65.09 Est GFR (MDRD) Af Amer 73 Est GFR (MDRD) Non-Af 60 BUN/Creatinine Ratio 8.7 L Glucose 166 H Lactic Acid 2.8 H* Calcium 8.7 Magnesium 1.8 Total Bilirubin 2.40 H Direct Bilirubin 2.02 H AST 375 H ALT 407 H Alkaline Phosphatase 988 H Troponin I High Sens 16 Total Protein 6.9 Albumin 2.9 L Globulin 4.0 Albumin/Globulin Ratio 0.7 L Lipase 28 Radiography Diagnostic Testing: Clinical Impression(s) from Imaging Studies Chest X-Ray 08/15/24 09:30 IMPRESSION: No acute abnormality is seen. Electronically Signed: Juan Jean MD at 9:53 EDT , Rhythm Strip Rhythm Strip: Sinus Rhythm Rate: 85 Ectopy: None EKG Initial EKG: Attestation: I personally reviewed and interpreted this EKG as follows: Interpretation: Sinus Rhythm Comments: Normal sinus rhythm at a rate of 85 bpm with PACs Mildly prolonged QT interval at 404 with a QTc of [address] segments Compared to prior EKG on patient does now have a prolonged QTc Management Discussion w/another healthcare provider: Hospitalist and [employer] Discharge Plan Triage Chief Complaint: Nausea/Vomiting ED Provider: Shanika Beltrán Dx/Rx/DC Orders Clinical Impression: Aspiration into airway, Choledocholithiasis, Acute hypokalemia Prescriptions: No Action cyanocobalamin (vitamin B-12) 1,000 mcg/mL solution 1,000 mcg IM ONCE Qty: 1 0RF venlafaxine 150 mg capsule,extended release 24hr 150 mg PO DAILY atorvastatin 80 mg Tablet 80 mg PO QHS Qty: 30 2RF finasteride 5 mg tablet 5 mg PO DAILY tamsulosin 0.4 mg Capsule 0.4 mg PO BID insulin lispro [Humalog KwikPen Insulin] 100 unit/mL insulin pen 25 unit subcut TID insulin glargine [Lantus Solostar U-100 Insulin] 100 unit/mL (3 mL) insulin pen 53 unit subcut QHS Trelegy Ellipta 100-62.5-25 mcg blister with device 1 ea inhalation Q24H prednisone 20 mg tablet 20 mg PO DAILY Qty: 14 0RF diphenoxylate-atropine [Lomotil] 2.5-0.025 mg tablet 1 tab PO TID PRN (Reason: diarrhea) Qty: 90 0RF diphenoxylate-atropine [Lomotil] 2.5-0.025 mg tablet 1 tab PO TID PRN (Reason: diarrhea) Qty: 30 2RF diphenoxylate-atropine [Lomotil] 2.5-0.025 mg tablet 1 tab PO TID PRN (Reason: diarrhea) Qty: 90 1RF colestipol 1 gram tablet 4 g PO BID 30 Days Qty: 240 0RF Creon 3,000-9,500- 15,000 unit capsule,delayed release(DR/EC) See Rx Instructions .ROUTE .COMPLEX Qty: 300 2RF Rx Instructions: 1 cap orally with meals and snack - take before eating;do not exceed 10,000 unit/kg lipase per 24 hrs Primary Care Provider: Tommy Markham Referrals: Tommy Markham MD [Primary Care Provider] - Print Language: Turkish Disposition Disposition: Acute Care Hospital [facility]
[2024-08-15] MEDS: 0.9% Normal Saline (1000mL) 1,000 ML 1000 ML IV (09:20)
[2024-08-15] MEDS: Ondansetron 4 MG/2 ML Vial IV (09:20)
--- NOTE | 2024-08-15 09:30 | RAD_ITS ---
STUDY: X-RAY CHEST REASON FOR EXAM: Male, 69 years old. Sob, cough, ? aspiration TECHNIQUE: PA and lateral views of the chest. COMPARISON: Comparison is made with prior study dated February 01, 2024. FINDINGS: EKG electrodes are seen. The lungs are clear and expanded. There is no demonstrated pleural abnormality. Normal size heart. Normal mediastinum and daisy. Normal visualized pulmonary arteries. Normal visualized aortic arch and descending thoracic aorta. There are diffuse degenerative changes of the visualized thoracic spine. Normal visualized ribs, clavicles, and shoulders. There is no demonstrated abnormality of the visualized soft tissue structures of the upper abdomen. RAD/Chest PA and Lateral IMPRESSION: No acute abnormality is seen. Electronically Signed: Juan Jean MD at 9:53 EDT ,
[2024-08-15 10:20] LABS: Lactic Acid 2.8 mmol/L (0.4-1.9)
[2024-08-15 10:25] LABS: ALB/GLOB Ratio 0.7 RATIO (0.9-2.4); AST(SGOT) 375 U/L (15-37); Alanine Aminotransfer ALT/SGPT 407 U/L (16-61); Albumin, Serum 2.9 g/dL (3.2-5.0); Alkaline Phosphatase 988 U/L (45-117); Anion Gap 10 (5-15); BUN 11 mg/dL (7-18); BUN/Creat Ratio 8.7 RATIO (10-20); Bilirubin, Direct 2.02 mg/dL (0.00-0.30); Calcium,Total 8.7 mg/dL (8.5-10.1); Chloride 105 mmol/L (98-107); Creatinine, Serum 1.26 mg/dL (0.70-1.30); EST Glomerular Filtration Rate 60 mL/min (>60); Est Glom Filt Rate - Afr Amer 73 mL/min (>60); Estimated Creatinine Clearance 65.09 ml/min; Glucose 166 mg/dL (74-106); Lipase 28 U/L (13-75); Magnesium 1.8 mg/dL (1.6-2.6); Potassium 2.6 mmol/L (3.5-5.1); Protein, Total 6.9 g/dL (6.4-8.2); Sodium Level 138 mmol/L (136-145); Troponin-I HS (w/2H Reflex) 16 pg/mL (3.0-78.0)
--- NOTE | 2024-08-15 10:40 | US_ITS ---
STUDY: ABDOMINAL ULTRASOUND - RIGHT UPPER QUADRANT REASON FOR VISIT: Male, 69 years old Transaminitis, history of choledocholithiasis TECHNIQUE: Ultrasound evaluation of the right upper quadrant was performed with real-time and static falcon-scale imaging. TECHNICAL QUALITY: Adequate. COMPARISON: Comparison is made with prior CT scan of the abdomen dated July 20, 2024. FINDINGS: Liver: The liver is enlarged and measures 19.5 cm. There is normal echogenicity of the liver. The bile ducts are dilated. There is hepatic color flow. The direction of portal flow is hepatopetal. There is no demonstrated mass lesion. Gallbladder: The patient is status post cholecystectomy. Common Bile Duct (C.B.D.): The common bile duct is dilated and measures 15.1 mm. The common bile duct stent is seen. Pancreas: There is pancreatic duct dilatation. There is a 1.2 cm x 1.47 x 1.4 cm cystic nodule in the superior aspect of the head of the pancreas. Right Kidney: Normal size of the right kidney. The right kidney measures 10.6 cm x 6 cm x 5.3 cm. Normal renal cortex. The right cortex measures 1.3 cm. There is no demonstrated renal mass or cyst. There is no right hydronephrosis. US/Gallbladder IMPRESSION: Hepatomegaly. Status post cholecystectomy. Intrahepatic biliary ductal dilatation as well as pancreatic ductal dilatation. A stent is seen in the common bile duct. 1.2 cm x 1.4 cm x 1.4 cm cystic nodule in the superior head of the pancreas. Electronically Signed: Juan Jean MD at 12:26 EDT ,
[2024-08-15] MEDS: 0.9% Normal Saline (1000mL) 1,000 ML 999 ML IV (10:46)
[2024-08-15] MEDS: Potassium Chloride 10mEq/100mL 10 MEQ/100 ML IV.SOLN. 100 MEQ IV BOLUS ×2 (10:50→12:02)
--- NOTE | 2024-08-15 12:00 | PCM.HP.STD ---
HPI - General General Date of Admission: 08/15/24 Date of Service: 08/15/24 Chief Complaint: Abdominal pain/nausea/vomiting HPI Narrative OLGA RODRIGUEZ, is a 69 M who presented to the emergency department at [facility] on 08/15/2025 due to abdominal pain, nausea, and vomiting. His assisted with history as he was mildly confused on presentation likely related to his marked dehydration. He also has a history of mild memory impairment. She states about 3 days ago he began having abdominal pain in the epigastric and right upper quadrant area that has persisted and slowly worsen. He developed nausea and vomiting today. He did have 1 episode of emesis into his CPAP and there was some concern for aspiration in the emergency department however I suspect it may have been aspiration pneumonitis as his oxygen requirement is now room air. His also stated that he has been having about 7 weeks of continued diarrhea that has been about 6-7 bouts in the morning but then he is fine through the rest of the day. He has an upcoming colonoscopy scheduled for next week. They do ask if he can have his colonoscopy while he is hospitalized and explained that not why he is in the hospital so we are unable to do that now and he should keep the appointment for next week. His reported that he has not been eating much over the last 3 days. He has had episodes like this in the past where he said choledocholithiasis. He has since had a cholecystectomy. He has a pancreatic biopsy pending in the future at [facility]. Vital signs on presentation showed temperature of 99.5, heart rate 99, respiratory rate was 21, blood pressure was 89/48 with a repeat of 108/50 1:05 liter IV fluids, and patient's oxygen saturation was 91% on room air. CBC did show a leukocytosis with a left shift having a 15.6 white count and a 93.6% neutrophilia. Chemistry panel showed marked hypokalemia with a testing of 2.6. Renal function was overall unremarkable. Glucose was 166. Lactic acid was 2.8. Recent hemoglobin A1c was 7.8 on 08/02/2024. His transaminases are elevated with an AST of 375 and ALT of 407 and an alk phos of 988. Bilirubin was elevated at 2.4 with a direct bilirubin of 2.02. Troponin was 16. Lipase was normal at 28. Chest x-ray showed no acute abnormality and gallbladder ultrasound showed hepatomegaly with intrahepatic bile duct dilatation as well as pancreatic ductal dilatation stable cystic nodule in the pancreatic head and stent in the common bile duct was noted. Emergency department he was started on IV antibiotics and hydrated aggressively as well as treated with antiemetics and pain medication. Case was discussed with Dr. Hannon. He will likely take the patient tomorrow for ERCP. [facility] Medical History History of multiple cerebrovascular accidents (CVAs) Wears hearing aid Loss of hearing Insulin dependent diabetes mellitus Excessive bleeding Smoker Chronic cough History of echocardiogram History of stress test Ramirez catheter in place Chronic cholecystitis Unintentional weight loss of 1-2% body weight within 1 week Elevated liver transaminase level Jaundice Abdominal discomfort Gastroparesis Choledocholithiasis Cholestatic hepatitis Common bile duct dilation Diabetes GERD (gastroesophageal reflux disease) Non-smoker CPAP (continuous positive airway pressure) dependence Sleep apnea COPD (chronic obstructive pulmonary disease) Stroke/cerebrovascular accident Stroke-like symptoms History of diabetes mellitus History of stroke Slurred speech Home Medications ?Medication ?Instructions ?Recorded ?Last Taken ?Type venlafaxine 150 mg 150 mg PO DAILY DEPRESSION 09/05/23 03/01/24 History capsule,extended release 24 hr atorvastatin 80 mg tablet 80 mg PO QHS CHOLESTEROL #30 tabs 09/07/23 03/01/24 Rx finasteride 5 mg tablet 5 mg PO DAILY prostate 01/05/24 03/01/24 History tamsulosin 0.4 mg capsule 0.4 mg PO BID prostate 01/25/24 03/01/24 History fluticasone fur. 100 mcg-umeclid 1 ea inhalation Q24H copd 02/24/24 03/01/24 History 62.5 mcg-vilant 25 mcg inhalat.powder (Trelegy Ellipta) insulin glargine 100 unit/mL (3 38 unit subcut QHS diabetes 02/24/24 03/01/24 History mL) subcutaneous pen (Lantus Solostar U-100 Insulin) insulin lispro 100 unit/mL 20 unit subcut TID diabetes 02/24/24 03/01/24 History subcutaneous pen (Humalog KwikPen (U-100) Insulin) diphenoxylate-atropine 2.5 1 tab PO TID PRN diarrhea #90 tabs 07/09/24 Unknown Rx mg-0.025 mg tablet (Lomotil) cyanocobalamin (vitamin B-12) 1,000 mcg IM ONCE #1 mL 07/12/24 07/11/24 Clinic 1,000 mcg/mL injection solution colestipol 1 gram tablet 4 g (4 x 1 gram) PO BID 30 days 08/13/24 Unknown Rx #240 tabs [id number] See Rx Instructions .Route 08/13/24 Unknown Rx 3,000-9,500-15,000 unit capsule, .COMPLEX #300 caps delayed rel (Creon) aspirin 81 mg tablet,delayed 81 mg PO DAILY preventative 08/15/24 Unknown History release (Enteric Coated Aspirin) Allergy/AdvReac Type Severity Reaction Status Date / Time Penicillins Allergy Intermediate Hives Verified 08/02/24 11:26 metformin AdvReac Mild Diarrhea Verified 08/02/24 11:26 Family History Other Alzheimer disease Breast cancer Thyroid cancer Surgical History S/P TURP History of ERCP Status post laparoscopic cholecystectomy History of cholecystectomy S/P ERCP History of ear surgery Social History household members: spouse housing: house current occupational status: retired Smoking Status: Current every day smoker tobacco type: cigarettes Tobacco: How many years used: 50 how long ago did patient quit smoking: alcohol intake: never substance use type: does not use what type of physical activity do you participate in: none and walking seatbelt use: always do you feel safe at home: Yes ROS Constitutional Constitutional: Reports fatigue, malaise and weakness; Denies anorexia, change in weight, chills, fever(s), night sweats or other Eyes Eyes: Denies blurry vision, change in eye color, change in vision, discharge from eye(s), double vision, erythema, eye pain, loss of vision or other ENT HEENT: Reports abnormal hearing and hearing loss; Denies dysphagia, ear pain, epistaxis, headache(s), nasal congestion, nasal discharge, post nasal drip, sinus pressure, sore throat or other Cardiovascular Cardiovascular: Denies chest pain, claudication, dyspnea on exertion, edema, lightheadedness, orthopnea, palpitations, paroxysmal nocturnal dyspnea, rapid heart rate, syncope or other Respiratory/Chest Respiratory/Chest: Denies cough, dyspnea, excessive phlegm production, hemoptysis, productive cough, shortness of breath at rest, shortness of breath with exertion, wheezing or other Gastrointestinal Gastrointestinal: Reports abdominal pain, diarrhea, nausea and vomiting; Denies coffee ground emesis, constipation, dyspepsia, hematemesis, hematochezia, loose stools, melena or other Genitourinary Genitourinary: Denies burning urination, difficulty urinating, dysuria, hematuria, nocturia, urinary frequency, urinary hesitancy, urinary incontinence, urinary urgency or other Musculoskeletal Musculoskeletal: Denies arthralgias, back pain, joint pain, joint stiffness, joint swelling, myalgias, neck pain or other Neurologic Neurologic: Reports other Details: Chronic memory issues ; Denies abnormal gait, abnormal speech, confusion, disequilibrium, dizziness, focal weakness, headache(s), numbness, paresthesias, seizure-like activity, seizures, syncope, tingling or tremor(s) Psychiatric Psychiatric: Denies anxiety, depression, homicidal ideation, suicidal ideation or other Endocrine Endocrinology: Denies change in body appearance, cold intolerance, excessive sweating, heat intolerance, polydipsia, polyuria or other Hematologic/Lymphatic Hematologic/Lymphatic: Denies anemia, easy bleeding, easy bruising, lymphadenopathy or other Allergic/Immunologic Allergic/Immunologic: Denies rhinitis, hives, eczemia, asthma or other Vital Signs Vital Signs Vital Signs: 08/15/24 08:48 08/15/24 08:52 08/15/24 09:52 Temperature 99.5 F H 99.5 F H 98.9 F Temperature Source Oral Oral Oral Pulse Rate 99 97 82 Respiratory Rate 21 H 24 H 23 H Blood Pressure 89/48 L 89/48 L 92/40 L Blood Pressure Mean 61 61 57 Pulse Ox 91 94 95 Oxygen Delivery Method Room Air Nasal Cannula Nasal Cannula Oxygen Flow Rate (L/min) 2 2 08/15/24 10:00 08/15/24 10:52 08/15/24 11:00 Temperature 98.9 F 98.6 F 97.5 F L Temperature Source Oral Oral Oral Pulse Rate 79 77 75 Respiratory Rate 22 H 22 H 20 H Blood Pressure 92/40 L 103/51 L 108/55 L Blood Pressure Mean 57 68 72 Pulse Ox 93 94 97 Oxygen Delivery Method Nasal Cannula Nasal Cannula Nasal Cannula Oxygen Flow Rate (L/min) 2 2 2 08/15/24 11:50 Temperature 97.9 F Temperature Source Pulse Rate 71 Respiratory Rate 19 H Blood Pressure 107/72 Blood Pressure Mean 83 Pulse Ox 96 Oxygen Delivery Method Oxygen Flow Rate (L/min) Weight Weight: 94.5 kg Body Mass Index (BMI) 28.2 Physical Exam Const alert, oriented x3 and no apparent distress; Negative for healthy appearing or well nourished Constitutional Narrative: Older, white male, lying in bed, appears markedly dehydrated, appears ill but not toxic, appears older than stated age Orientation / Consciousness: confused HEENT normocephalic and head/scalp atraumatic; Negative for moist oral mucous membranes HEENT Narrative: Mucous membranes are extremely dry Eyes PERRL, EOMs intact bilaterally and conjunctivae normal Eyes Narrative: No scleral icterus noted at this time Neck no lymphadenopathy and supple Neck Narrative: Neck is short and thick, trachea midline Resp normal respiratory effort, no retractions, no use of accessory muscles and clear to auscultation bilaterally Auscultation: Negative for rales, rhonchi or wheezes Cardio regular rate, regular rhythm, S1 normal heart sound, S2 normal heart sound, no murmurs, no rub, no gallops and no clicks GI normal to inspection, nondistended, normoactive bowel sounds, soft to palpation and non-tender GI Narrative: Tenderness in the epigastrium and right upper quadrant Extremity no clubbing, cyanosis or edema Extremity Narrative: Radial and pedal pulses are 2+ Skin Skin Narrative: Skin tenting noted, no significant wounds, no lesions, color is good Neuro oriented x3, moves all extremities and no focal motor deficits Neuro Narrative: Speech is difficult due to the significant dryness in his mouth but he is understandable and intelligible Psych Psych Narrative: Affect is slightly flat but appropriate for the situation, patient is mildly confused with regards to recent events but is oriented x 3 Results Lab / Micro Data 08/15/24 09:07 08/15/24 09:07 Labs: Laboratory Results - last 24 hr 08/15/24 09:07: Sodium 138, Potassium 2.6 L*, Chloride 105, Carbon Dioxide 23.0, Anion Gap 10, BUN 11, Creatinine 1.26, Estim Creat Clear Calc 65.09, Est GFR (MDRD) Af Amer 73, Est GFR (MDRD) Non-Af 60, BUN/Creatinine Ratio 8.7 L, Glucose 166 H, Lactic Acid 2.8 H*, Calcium 8.7, Magnesium 1.8, Total Bilirubin 2.40 H, Direct Bilirubin 2.02 H, AST 375 H, ALT 407 H, Alkaline Phosphatase 988 H, Troponin I High Sens 16, Total Protein 6.9, Albumin 2.9 L, Globulin 4.0, Albumin/Globulin Ratio 0.7 L, Lipase 28 Micro: Microbiology 08/15/24 09:21 Mucosa - Nose SARS-CoV-2, Influenza & RSV (PCR) - Final Rhythm Strip Rhythm Strip: Sinus Rhythm Rate: 85 Ectopy: None Imaging Radiology Impression Chest X-Ray 08/15/24 09:30 IMPRESSION: No acute abnormality is seen. Electronically Signed: Juan Jean MD at 9:53 EDT Reading Location ID and State: [facility] / [place] , Service support , Assessment & Plan Assessment/Plan (1) Choledocholithiasis: (2) Acute hypokalemia: (3) Diarrhea: QUALIFIERS: Diarrhea type: unspecified type Qualified Code(s): R19.7 - Diarrhea, unspecified (4) Lactic acidosis: (5) Dehydration: PLAN: Plan Abdominal pain/nausea/vomiting secondary to recurrent choledocholithiasis -Patient with multiple episodes of choledocholithiasis -No longer has gallbladder but still having episodes of choledocholithiasis -Had cholecystectomy on 02/04/2024 -Workup has been in progress -Will need ERCP per GI tomorrow -Aggressive IV fluids -As needed pain medication -As needed antiemetics -N.p.o. except for sips and chips and p.o. medications -GI consult is pending Lactic acidosis secondary to dehydration -Suspect related to significant dehydration on presentation -Aggressive IV fluids -Repeat per protocol Hypokalemia -Patient was given 40 mill equivalents the emergency department IV and I will give another 40 now -Magnesium level was normal -Repeat lab in a.m. Persistent diarrhea - reports that he has 6-7 bowel movements but they are all in the morning after he wakes up and does not have much throughout the rest of the day -Has been ongoing for several months -Will check C. difficile and enteric panel along with lactoferrin -If infectious workup is negative will start medications for hypermotility of the gut -Has outpatient colonoscopy next week Pancreatic insufficiency -Continue home Creon -Biopsy upcoming at [facility] History of gastroparesis -Patient had a abnormal gastric emptying study performed on 12/08/2023 -Patient has follow-up with GI for this -Currently not on any Reglan or other medications to address -Likely related to his longstanding diabetes -Continue outpatient GI follow-up History of stroke -Continue risk factor modification -Aspirin on hold for now for possible intervention -Continue aspirin -See above Hyperlipidemia -Will hold home atorvastatin for now with liver enzyme elevations DM-2 -Home Lantus is now 38 units but will decrease to 18 units as patient is n.p.o. -Hold prandial insulin -SSI -Accu-Cheks as ordered GERD -Patient is currently not on any PPI BPH with obstruction -Continue home Flomax -Continue home finasteride History of COPD -Continue home inhalers Depression -Continue home venlafaxine CALLI -Continue home CPAP DVT prophylaxis -Lovenox subcu 40 mg daily CODE STATUS -DNR CCA okay for short-term intubation as verified with patient on presentation Charges/Coding Visit Charges Inpatient E&M: 30417 Init Hosp L3
[2024-08-15] MEDS: Ceftriaxone 1 GM/50 ML BAG IV (12:01)
--- OUTSIDE RECORDS SUMMARY | 2024-08-15 12:20 | XMS RPT_ITS | CCD ---
Author Organization [facility] Care Team Providers Care Cigarette Examiner Name Role Phone Tommy Hardy MD Primary Care Provider [phone] Tommy Hardy MD Primary Care Provider Carly Chandler MD Unavailable [phone] Tommy Hardy MD Primary Care Provider YOLY ORNLEAS Referring Unavailable HAYLEY, TOMMY Babin Primary Care Unavailable HAYLEY, TOMMY Babin Primary Care Unavailable HAYLEY, TOMMY Babin Attending Unavailable HAYLEY, TOMMY Babin Primary Care Unavailable HAYLEY, TOMMY Babin Attending Unavailable HAYLEYTOMMY Referring Unavailable HAYLEY, TOMMY Babin Primary Care Unavailable HAYLEY, TOMMY Babin Primary Care Unavailable HAYLEY, TOMMY Babin Attending Unavailable HAYLEY, TOMMY Babin Primary Care Unavailable CARLY CHANDLER Attending Unavailable HAYLEY, TOMMY Babin Primary Care Unavailable HAYLEY, TOMMY Babin Attending Unavailable HAYLEYTOMMY Referring Unavailable HAYLEY, TOMMY Babin Primary Care Unavailable YOLY ORNELAS Attending Unavailable HAYLEY, TOMMY Babin Primary Care Unavailable HAYLEY, TOMMY Babin Primary Care Unavailable HAYLEY, TOMMY Babin Referring Unavailable HAYLEY, TOMMY Babin Primary Care Unavailable HAYLEYTOMMY Attending Unavailable HAYLEY, TOMMY Babin Primary Care Unavailable HAYLEY, TOMMY Babin Referring Unavailable HAYLEY, TOMMY Babin Primary Care Unavailable HAYLEYTOMMY Attending Unavailable HAYLEYTOMMY Primary Care Unavailable HAYLEY, TOMMY Babin Referring Unavailable HAYLEY, TOMMY Babin Primary Care Unavailable HAYLEY, TOMMY Babni Attending Unavailable HAYLEY, TOMMY Babin Primary Care Unavailable HAYLEY, TOMMY Babin Referring Unavailable HAYLEY, TOMMY Babin Primary Care Unavailable HAYLEY, TOMMY Babin Referring Unavailable HAYLEY, TOMMY Babin Primary Care Unavailable HAYLEY, TOMMY Babin Referring Unavailable HAYLEY, TOMMY Babin Primary Care Unavailable HAYLEY, TOMMY Babin Attending Unavailable HAYLEY, TOMMY Babin Primary Care Unavailable ANTON FISH Referring Unavailable TOMMY HARDY Primary Care Unavailable TOMMY HARDY Primary Care Unavailable TYRA MAC Attending Unavailable TOMMY HARDY Primary Care Unavailable TOMMY HARDY Attending Unavailable TOMMY HARDY Referring Unavailable TOMMY HARDY Primary Care Unavailable TOMMY HARDY Referring Unavailable TOMMY HARDY Primary Care Unavailable TOMMY HARDY Primary Care Unavailable ANDRES DASH Referring Unavailable TOMMY HARDY Primary Care Unavailable ANDRES DASH Attending Unavailable CARLY CHANDLER Referring Unavailable TOMMY HARDY Referring Unavailable TOMMY HARDY Primary Care Unavailable TOMMY HARDY Attending Unavailable TOMMY HARDY Primary Care Unavailable SELF Referring Unavailable Allergies Allergy Classification Reported Allergen(s) Allergy Type Date of Onset Reaction(s) Facility (20 sources) metFORMIN; Translations: [METFORMIN] Drug Allergy 06-29-2011 Diarrhea [facility] Work Phone: (5 sources) Penicillins; Translations: [PENICILLINS] Propensity to adverse reactions 07-15-2005 [facility] Work Phone: (20 sources) Penicillins Propensity to adverse reactions 07-15-2005 [facility] Work Phone: Medications Current Medications Medication Drug Class(es) Dates Sig (Normalized) Sig (Original) amylase 28363 unt / lipase 3000 unt / protease 9500 unt delayed release oral capsule (4 sources) Start: 07-20-2024 take 1 capsule by mouth once daily CREON 3,000-9,500- 15,000 unit delayed release capsule Take 1 capsule by mouth once daily. 07/20/2024 Active aspirin 81 mg delayed release oral tablet (20 sources) Platelet Aggregation Inhibitor, Nonsteroidal Anti-inflammatory Drug Start: 03-17-2015 take 1 tablet by mouth once daily aspirin, enteric coated (ASPIRIN, ENTERIC COATED) 81 mg EC tablet Take 81 mg by mouth once daily. 0 03/17/2015 Active Comment on above: Take 1 tablet by flor th once daily. Take 81 mg by mouth once daily. atorvastatin 80 mg oral tablet (20 sources) HMG-CoA Reductase Inhibitor Start: 01-21-2022 End: 01-12-2024 atorvastatin (LIPITOR) 80 mg tablet TAKE 1 TABLET DAILY AT BEDTIME FOR CHOLESTEROL 90 tablet 3 01/12/2024 Active Comment on above: TAKE 1 TABLET DAILY AT BEDTIME FOR CHOLESTEROL Blood Sugar Diagnostic, Drum (ACCU-CHEK COMPACT TEST) strp (20 sources) Start: 10-09-2018 Blood Sugar Diagnostic, Drum (ACCU-CHEK COMPACT TEST) strp Test twice daily or as directed. DX: 250.02 Insulin: Yes 100 Strip 5 10/09/2018 Active Comment on above: Test twice daily or as directed. DX: 250.02 Insulin: Yes Blood-Glucose Meter,Continuous (FREESTYLE CAYDEN 3 READER) misc (20 sources) Start: 02-17-2024 Blood-Glucose Meter,Continuous (FREESTYLE CAYDEN 3 READER) misc Indications: Controlled type 2 diabetes mellitus without complication, without long-term current use of insulin (HCC) Injecting three times a day insulin. 1 Each 02/17/2024 Active Start: 02-17-2024 Blood-Glucose Meter,Continuous (FREESTYLE CAYDEN 3 READER) misc Indications: Controlled type 2 diabetes mellitus without complication, without long-term current use of insulin (HCC) Injecting three times a day insulin. 1 Each 0 02/17/2024 Active Comment on above: Injecting three time s a day insulin. Blood-Glucose Sensor (FREESTYLE CAYDEN 3 SENSOR) ramon (20 sources) Start: Blood-Glucose Sensor (FREESTYLE CAYDEN 3 SENSOR) ramon Indications: Gastroparesis , Controlled type 2 diabetes mellitus without complication, without long-term current use of insulin (HCC) , Hyperglycemia Use as directed. Testing bid and prn. Has had hypoglycemia 2 Each 11 12/13/2023 Active Comment on above: Use as directed. Kimberley ting bid and prn. Has had hypoglycemia canagliflozin 100 mg oral tablet (4 sources) Sodium-Glucose Cotransporter 2 Inhibitor Start: 023 End: 024 take 1 tablet by mouth once daily before breakfast canagliflozin (INVOKANA) 100 mg tab Indications: type 2 diabetes mellitus Take 1 tablet by mouth daily before breakfast. 90 tablet 3 10/11/2023 10/10/2024 Active Comment on above: Take 1 tablet by flor th daily before breakfast. clobetasol propionate 0.0005 mg/mg topical ointment (20 sources) Corticosteroid Start: 012 clobetasol 0.05 % ointment Indications: Other psoriasis , Contact dermatitis and other eczema, due to unspecified cause , Contact dermatitis and other eczema due to other specified agent Apply to affected spot(s) or patches of eczema and psoriasis of hands (palms and dorsal areas) selectively qday to bid until clear as directed and tolerated; taper off as able to bland emollient moisturizing cream (eg Cetaphil Cream) as able. AVOID face, eyes/eyelids, and deep fold areas. 60 g 3 07/20/2012 Active Comment on above: Apply to affected sp ot(s) or patches of eczema and psoriasis of hands (palms and dorsal areas) selectively qday to bid until clear as directed and tolerated; taper off as able to bland emollient moisturizing cream (eg Cetaphil Cream) as able. AVOID face, eyes/eyelids, and deep fold areas. colestipol hydrochloride 1000 mg oral tablet (4 sources) Bile Acid Sequestrant Start: 024 take 2 tablets by mouth twice daily colestipol (COLESTID) 1 gram tablet Take 2 g by mouth two times a day. 07/19/2024 Active CPAP (20 sources) Start: 022 CPAP Indications: CALLI (obstructive sleep apnea) Initiate Auto PAP @ 5-20 cm of water with humidification. Mask (per patient preference) optional chin strap (if indicated) , filters, tubing, humidifier and lifetime supplies. Replacement Machine. 1 Each 11/08/2022 Active Start: 11-08-2022 CPAP Indicatio ns: CALLI (obstructive sleep apnea) Initiate Auto PAP @ 5-20 cm of water with humidification. Mask (per patient preference) optional chin strap (if indicated) , filters, tubing, humidifier and lifetime supplies. Replacement Machine. 1 Each 0 11/08/2022 Active Start: 09-07-2022 CPAP Indicatio ns: CALLI (obstructive sleep apnea) Initiate Auto PAP @ 5-20 cm of water with humidification. Mask (per patient preference) optional chin strap (if indicated) , filters, tubing, humidifier and lifetime supplies. Replacement Machine. 1 Each 0 09/07/2022 Active Start: 09-03-2022 End: 09-07-2022 CPAP Indications: CALLI (obstr uctive sleep apnea) Initiate Auto PAP @ 5-20 cm of water with humidification. Mask (per patient preference) optional chin strap (if indicated) , filters, tubing, humidifier and lifetime supplies. 1 Each 0 09/03/2022 09/07/2022 Discontinued Start: 09-03-2022 CPAP Indicatio ns: CALLI (obstructive sleep apnea) Initiate Auto PAP @ 5-20 cm of water with humidification. Mask (per patient preference) optional chin strap (if indicated) , filters, tubing, humidifier and lifetime supplies. 1 Each 0 09/03/2022 Active Start: 08-25-2022 End: 09-03-2022 CPAP Indications: CALLI (obstr uctive sleep apnea) Initiate Auto PAP @ 5-20 cm of water with humidification. Mask (per patient preference) optional chin strap (if indicated) , filters, tubing, humidifier and lifetime supplies. 1 Each 0 08/25/2022 09/03/2022 Discontinued Start: 08-25-2022 CPAP Indicatio ns: CALLI (obstructive sleep apnea) Initiate Auto PAP @ 5-20 cm of water with humidification. Mask (per patient preference) optional chin strap (if indicated) , filters, tubing, humidifier and lifetime supplies. 1 Each 0 08/25/2022 Active Comment on above: Initiate Auto PAP @ 5-20 cm of water with humidification. Mask (per patient preference) optional chin strap (if indicated) , filters, tubing, humidifier and lifetime supplies. Initiate Auto PAP @ 5-20 cm of water with humidification. Mask (per patient preference) optional chin strap (if indicated) , filters, tubing, humidifier and lifetime supplies. Replacement Machine. dulaglutide (TRULICITY) 3 mg/0.5 mL pen injector (1 source) Start: 2022 End: 2023 inject 3 mg by subcutaneous injection every week dulaglutide (TRULICITY) 3 mg/0.5 mL pen injector Indications: Controlled type 2 diabetes mellitus without complication, without long-term current use of insulin (HCC) Inject 3 mg subcutaneously one time a week. 12 Each 3 11/07/2023 11/06/2024 Active Comment on above: Inject 3 mg subcutan eously one time a week. dulaglutide (TRULICITY) 4.5 mg/0.5 mL pen injector (11 sources) Start: 2022 End: 2023 inject 4.5 mg by subcutaneous injection every week dulaglutide (TRULICITY) 4.5 mg/0.5 mL pen injector Indications: Controlled type 2 diabetes mellitus without complication, without long-term current use of insulin ([facility]) Inject 4.5 mg subcutaneously one time a week. 12 Each 3 09/14/2023 09/13/2024 Active Comment on above: Inject 4.5 mg subcut aneously one time a week. ferrous sulfate 325 mg oral tablet (3 sources) Start: 2023 End: 2024 take 1 tablet by mouth once daily ferrous sulfate 325 mg (65 mg iron) tablet Indications: Iron deficiency anemia, unspecified iron deficiency anemia type Take 1 tablet by mouth once daily. 30 tablet 11 08/01/2024 08/01/2025 Active finasteride 5 mg oral tablet (20 sources) 5-alpha Reductase Inhibitor Start: 2023 take 1 tablet by mouth once daily finasteride (PROSCAR) 5 mg tablet Take 5 mg by mouth once daily. 01/24/2024 Active Comment on above: Take 5 mg by mouth o nce daily. 30 actuat fluticasone furoate 0.1 mg/actuat / umeclidinium 0.0625 mg/actuat / vilanterol 0.025 mg/actuat dry powder inhaler (20 sources) Anticholinergic, Corticosteroid, beta2-Adrenergic Agonist Start: 2022 End: 2024 take 1 puff(s) by inhalation once daily fluticasone-umeclidi n-vilanter (TRELEGY ELLIPTA) 100-62.5-25 mcg inhalation powder Indications: Moderate COPD (chronic obstructive pulmonary disease) ([facility]) Inhale 1 Puff as instructed once daily. 180 Each 3 12/26/2023 12/25/2024 Active Start: 10-22-2022 End: 03-22-2023 take 1 puff(s) by inhalation once daily fgbjauhfupv-nokbkghzn-uyeedges (TRELEGY ELLIPTA) 100-62.5-25 mcg inhalation powder Inhale 1 Puff as instructed once daily. 1 Each 3 03/22/2023 Active Comment on above: Inhale 1 Puff as ins tructed once daily. 3 ml insulin glargine 100 unt/ml pen injector (20 sources) Insulin Analog Start: 01-27-20 inject 52 [IU] by subcutaneous injection once daily at bedtime insulin glargine 100 unit/mL (3 mL) Indications: Controlled type 2 diabetes mellitus without complication, without long-term current use of insulin (HCC) Inject 52 Units subcutaneously daily at bedtime. 15 Each 3 01/27/2024 Active Start: 09-22-2023 End: 01-27-2024 inject 50 [IU] by subcutaneous injection once daily at bedtime insulin glargine 100 unit/mL (3 mL) Inject 50 Units subcutaneously daily at bedtime. 15 Each 3 09/22/2023 01/27/2024 Discontinued Start: 09-22-2023 inject 50 [IU] by eugene bcutaneous injection once daily at bedtime insulin glargine 100 unit/mL (3 mL) Inject 50 Units subcutaneously daily at bedtime. 15 Each 3 09/22/2023 Active Start: 02-18-2022 End: 06-03-2023 inject 50 [IU] by subcutaneous injection once daily at bedtime insulin glargine 100 unit/mL (3 mL) Inject 50 Units subcutaneously daily at bedtime. 15 Each 3 06/03/2023 Active Start: 10-28-2021 End: 02-18-2022 insulin glargine (LANTUS KAREN OSTAR, BASAGLAR KWIKPEN) 100 unit/mL (3 mL) Inject 50 Units subcutaneously daily at bedtime. 15 Pen 3 02/18/2022 Active Comment on above: Inject 50 Units subc utaneously daily at bedtime. Inject 52 Units subc utaneously daily at bedtime. 3 ml insulin lispro 100 unt/ml pen injector (20 sources) Insulin Analog Start: 06-11-2024 End: 06-11-2025 insulin lispro (HUMALOG KWIKPEN INSULIN) 100 unit/mL Indications: Controlled type 2 diabetes mellitus without complication, without long-term current use of insulin (HCC) Inject 20 Units subcutaneously three times a day before meals. With sliding scale and 10 units with snacks. 54 mL 3 06/11/2024 06/11/2025 Active Start: 02-22-2024 End: 06-11-2024 insulin lispro (HUMALOG KWIK PEN INSULIN) 100 unit/mL Indications: Controlled type 2 diabetes mellitus without complication, without long-term current use of insulin (HCC) Inject 25 Units subcutaneously three times a day before meals. With sliding scale 0 02/22/2024 06/11/2024 Discontinued Start: 02-17-2024 End: 02-22-2024 insulin lispro (HUMALOG KWIK PEN INSULIN) 100 unit/mL Indications: Controlled type 2 diabetes mellitus without complication, without long-term current use of insulin (HCC) Inject 23 Units subcutaneously three times a day before meals. With sliding scale 0 02/17/2024 02/22/2024 Discontinued Start: 10-07-2023 End: 01-11-2024 insulin lispro (HUMALOG KWIK PEN INSULIN) 100 unit/mL Indications: Controlled type 2 diabetes mellitus without complication, without long-term current use of insulin ([facility]) Inject 21 Units subcutaneously three times a day before meals. 15 Each 1 01/11/2024 Active Start: 10-05-2023 End: 10-07-2023 inject 19 [IU] by subcutaneous injection three times daily before mealtime, then inject 17 [IU] by subcutaneous injection at mealtime insulin lispro (HUMALOG KWIKPEN INSULIN) 100 unit/mL Indications: Controlled type 2 diabetes mellitus without complication, without long-term current use of insulin ([facility]) Inject 19 Units subcutaneously three times a day before meals. 17 units at each meal In addition to sliding scale 15 Each 1 10/05/2023 10/07/2023 Discontinued Start: 09-14-2023 End: 10-05-2023 insulin lispro (HUMALOG KWIK PEN INSULIN) 100 unit/mL Indications: Controlled type 2 diabetes mellitus without complication, without long-term current use of insulin (HCC) 17 units at each meal In addition to sliding scale 15 Each 1 09/14/2023 10/05/2023 Discontinued Start: 07-05-2022 End: 09-14-2023 insulin lispro (HUMALOG KWIK PEN INSULIN) 100 unit/mL 17 units at each meal In addition to sliding scale 15 Each 1 08/15/2023 09/14/2023 Discontinued Start: 02-15-2022 End: 07-02-2022 insulin lispro (HUMALOG KWIK PEN INSULIN) 100 unit/mL 17 units at each meal In addition to sliding scale 15 Pen 1 02/15/2022 07/02/2022 Discontinued Start: 11-11-2021 End: 02-15-2022 insulin lispro (HUMALOG KWIK PEN INSULIN) 100 unit/mL 15 units at each meal In addition to sliding scale 15 Pen 1 11/11/2021 02/15/2022 Discontinued Comment on above: 17 units at each deirdre l In addition to sliding scale 15 units at each deirdre l In addition to sliding scale Inject 19 Units subc utaneously three times a day before meals. 17 units at each meal In addition to sliding scale Inject 21 Units subc utaneously three times a day before meals. 17 units at each meal In addition to sliding scale Inject 21 Units subc utaneously three times a day before meals. Inject 23 Units subc utaneously three times a day before meals. With sliding scale Inject 25 Units subc utaneously three times a day before meals. With sliding scale nystatin 100 unt/mg topical powder (20 sources) Polyene Antifungal Start: 04-18-2024 End: 05-18-2024 nystatin (MYCOSTATIN) powder Indications: Tinea cruris Apply 1 application to affected area four times daily. 60 g 1 04/18/2024 05/18/2024 Active Start: 11-24-2023 End: 04-18-2024 nystatin (MYCOSTATIN) cream Indications: Dermatitis Apply 1 application to affected area two times a day. 90 g 1 11/24/2023 04/18/2024 Discontinued Start: 11-07-2023 nystatin (MYCO STATIN) cream Indications: Dermatitis Apply 1 application to affected area two times a day. 45 g 0 11/07/2023 Active Comment on above: Apply 1 application to affected area two times a day. predniSONE 20 mg oral tablet (4 sources) Start: take 1 tablet by mouth once predniSONE (DELTASONE) 20 mg tablet Take 1 tablet by mouth every afternoon. 07/20/2024 Active tamsulosin hydrochloride 0.4 mg oral capsule (20 sources) alpha-Adrenergic To take 0.8 mg by mouth twice daily tamsulosin (FLOMAX) 0.4 mg Take 0.8 mg by mouth two times a day. Active take 0.4 mg by mouth twice daily tamsulosin (FLOMAX) 0.4 mg Take 0.4 mg by mouth two times a day. 0 Active Comment on above: Take 0.4 mg by mouth two times a day. Take 0.8 mg by mouth two times a day. 24 hr venlafaxine 150 mg extended release oral capsule (20 sources) Serotonin and Norepinephrine Reuptake Inhibitor Start: 08-20-20 End: 04-20-20 take 1 capsule by mouth once daily venlafaxine ER (EFFEXOR XR) 150 mg 24 hr capsule Indications: Mild depressive disorder Take 1 capsule by mouth once daily. 90 capsule 3 04/20/2024 04/20/2025 Active Start: 01-25-2022 End: 08-20-2022 take 1 capsule by mouth once daily venlafaxine ER (EFFEXOR XR) 75 mg 24 hr capsule Indications: Mild depressive disorder Take 1 capsule by mouth once daily. 90 capsule 3 08/20/2022 08/20/2022 Discontinued Comment on above: Take 1 capsule by mo [facility] once daily. Completed/Discontinued Medications Medication Drug Class(es) Dates Sig (Normalized) Sig (Original) acetaminophen 325 mg oral tablet (1 source) Start: 03-17-2015 End: 02-15-2022 take 2 tablets by mouth every four hours as needed acetaminophen (TYLENOL) 325 mg tablet Take 2 tablets by mouth every 4 hours as needed for Pain. 0 03/17/2015 02/15/2022 Discontinued Comment on above: Take 2 tablets by mo [facility] every 4 hours as needed for Pain. [id number] 200 actuat albuterol 0.09 mg/actuat metered dose inhaler (18 sources) beta2-Adrenergic Agonist Start: 10-22-2022 End: 09-14-2023 take 2 puff(s) by inhalation every four hours as needed albuterol HFA (PROVENTIL HFA, VENTOLIN HFA) 90 mcg/actuation inhaler Inhale 2 Puffs as instructed every 4 hours as needed. 1 Each 5 10/22/2022 09/14/2023 Discontinued (Other) Start: 03-28-2018 End: 02-15-2022 take 2 puff(s) by inhalation every four hours as needed for wheezing albuterol HFA (VENTOLIN HFA) 90 mcg/actuation inhaler Inhale 2 Puffs as instructed every 4 hours as needed for Wheezing/Shortness of Breath. 1 Inhaler 0 03/28/2018 02/15/2022 Discontinued Comment on above: Inhale 2 Puffs as in structed every 4 hours as needed for Wheezing/Shortness of Breath. Inhale 2 Puffs as in structed every 4 hours as needed. albuterol 0.833 mg/ml / ipratropium bromide 0.167 mg/ml inhalation solution (20 sources) Anticholinergic, beta2-Adrenergic Agonist Start: 2022 End: 2023 ipratropium-albuter ol (DUONEB) 0.5 mg-3 mg(2.5 mg base)/3 mL nebu Indications: Moderate COPD (chronic obstructive pulmonary disease) (HCC) Use twice daily and every four hours as needed 360 mL 5 12/28/2022 01/27/2024 Discontinued Comment on above: Use twice daily and every four hours as needed atropine sulfate 0.025 mg / diphenoxylate hydrochloride 2.5 mg oral tablet (1 source) Anticholinergic, Cholinergic Muscarinic Antagonist, Antidiarrheal Start: 2023 End: 2023 take 1 tablet by mouth every eight hours as needed diphenoxylate-atrop ine (LOMOTIL) 2.5-0.025 mg per tablet Take 1 tablet by mouth three times a day as needed. 07/11/2024 07/31/2024 Discontinued (Other) cefdinir 300 mg oral capsule (6 sources) Cephalosporin Antibacterial Start: 2021 End: 2021 take 1 capsule by mouth twice daily cefdinir (OMNICEF) 300 mg capsule Take 1 capsule by mouth twice daily for 7 days. 14 capsule 0 06/21/2022 06/28/2022 Comment on above: Take 1 capsule by [facility] twice daily for 7 days. cephalexin 500 mg oral capsule (5 sources) Cephalosporin Antibacterial Start: 2023 End: 2023 take 1 capsule by mouth four times daily cephALEXin (KEFLEX) 500 mg capsule Take 1 capsule by mouth four times daily for 5 days. 20 capsule 06/17/2024 06/20/2024 Discontinued dulaglutide (TRULICITY) 3 mg/0.5 mL pen injector (20 sources) Start: 2021 End: 2022 inject 3 mg by subcutaneous injection every week dulaglutide (TRULICITY) 3 mg/0.5 mL pen injector Indications: Controlled type 2 diabetes mellitus without complication, without long-term current use of insulin (HCC) Inject 3 mg subcutaneously one time a week. 12 Each 3 11/04/2022 09/14/2023 Discontinued Start: 11-04-2022 End: 11-04-2023 inject 3 mg by subcutaneous injection every week dulaglutide (TRULICITY) 3 mg/0.5 mL pen injector Indications: Controlled type 2 diabetes mellitus without complication, without long-term current use of insulin (HCC) Inject 3 mg subcutaneously one time a week. 12 Each 3 11/04/2022 11/04/2023 Active Start: 12-28-2021 End: 02-15-2022 inject 3 mg by subcutaneous injection every week dulaglutide (TRULICITY) 3 mg/0.5 mL pen injector Indications: Controlled type 2 diabetes mellitus without complication, without long-term current use of insulin (HCC) Inject 3 mg subcutaneously one time a week. 2 mL 0 12/28/2021 02/15/2022 Discontinued Start: 12-23-2021 End: 11-04-2022 inject 3 mg by subcutaneous injection every week dulaglutide (TRULICITY) 3 mg/0.5 mL pen injector Indications: Controlled type 2 diabetes mellitus without complication, without long-term current use of insulin (HCC) Inject 3 mg subcutaneously one time a week. 6 mL 3 12/23/2021 11/04/2022 Discontinued Start: 12-23-2021 End: 12-23-2022 inject 3 mg by subcutaneous injection every week dulaglutide (TRULICITY) 3 mg/0.5 mL pen injector Indications: Controlled type 2 diabetes mellitus without complication, without long-term current use of insulin (HCC) Inject 3 mg subcutaneously one time a week. 6 mL 3 12/23/2021 12/23/2022 Active Comment on above: Inject 3 mg subcutan eously one time a week. flash glucose scanning reader (FREESTYLE CAYDEN 3 READER) (15 sources) Start: 12-13-2023 End: 01-27-2024 flash glucose scanning reader (FREESTYLE CAYDEN 3 READER) Indications: Gastroparesis , Controlled type 2 diabetes mellitus without complication, without long-term current use of insulin (HCC) , Hyperglycemia Use as directed. Testing bid and prn. Has had hypoglycemia 1 Each 0 12/13/2023 01/27/2024 Discontinued Start: 12-13-2023 flash glucose scanning reader (FREESTYLE CAYDEN 3 READER) Indications: Gastroparesis , Controlled type 2 diabetes mellitus without complication, without long-term current use of insulin (HCC) , Hyperglycemia Use as directed. Testing bid and prn. Has had hypoglycemia 1 Each 0 12/13/2023 Active Comment on above: Use as directed. Kimberley ting bid and prn. Has had hypoglycemia lactulose 667 mg/ml oral solution (20 sources) Osmotic Laxative Start: 01-12-20 End: 07-31-20 CONSTULOSE 10 gram/15 mL solution take 15ml (1 TAKE 1 TABLESPOONFUL) DAILY 01/12/2024 07/31/2024 Discontinued (Other) Comment on above: take 15ml (1 TAKE 1 TABLESPOONFUL) DAILY metFORMIN hydrochloride 500 mg oral tablet (2 sources) Biguanide End: 09-14-20 take 1 tablet by mouth twice daily at mealtime metFORMIN (GLUCOPHAGE) 500 mg tablet Take 500 mg by mouth two times a day with meals. 0 09/14/2023 Discontinued (Other) Comment on above: Take 500 mg by mouth two times a day with meals. naproxen 500 mg oral tablet (11 sources) Nonsteroidal Anti-inflammatory Drug Start: 06-15-20 End: 08-20-20 take 1 tablet by mouth twice daily at mealtime naproxen (NAPROSYN) 500 mg tablet Indications: Pain of toe, unspecified laterality Take one pill by mouth twice daily with food X 1 week; then you can take twice daily as needed. Take with food. 60 tablet 0 06/15/2022 08/20/2022 Discontinued Comment on above: Take one pill by flor twice daily with food X 1 week; then you can take twice daily as needed. Take with food. ofloxacin 3 mg/ml ophthalmic solution (6 sources) Quinolone Antimicrobial Start: 06-24-20 End: 08-20-20 take 4 drop(s) into the eye(s) three times daily ofloxacin (OCUFLOX) 0.3 % ophthalmic solution Indications: Acute otitis externa of right ear, unspecified type Place 4 drops to right ear three times daily for 7 days. 5 mL 1 06/24/2022 08/20/2022 Discontinued Comment on above: Place 4 drops to rig ht ear three times daily for 7 days. omeprazole 20 mg delayed release oral capsule (20 sources) Proton Pump Inhibitor Start: 07-20-20 End: 03-20-20 take 1 capsule by mouth once daily omeprazole (PRILOSEC) 20 mg capsule Take 1 capsule by mouth once daily. 90 capsule 1 07/21/2022 03/20/2024 Discontinued Start: 12-07-2021 End: 07-16-2022 take 1 capsule by mouth once daily omeprazole (PRILOSEC) 20 mg capsule Take 1 capsule by mouth once daily. 90 capsule 1 02/18/2022 07/16/2022 Discontinued Comment on above: TAKE 1 CAPSULE BY MO UTH ONCE DAILY Take 1 capsule by mo uth once daily. Problems Active Problems Problem Classification Problem Date Documented Da te Episodic/Chronic Acute cerebrovascular disease (20 sources) Cerebrovascular accident; Translations: [Cerebral infarction, unspecified] Onset: 03-21-2015 03-21-2015 Chronic Aortic; peripheral; and visceral artery aneurysms (20 sources) Abdominal aortic aneurysm without rupture; Translations: [Abdominal aortic aneurysm, without rupture] Onset: 05-13-2021 Chronic Biliary tract disease (3 sources) Obstructive hyperbilirubinemia; Translations: [Obstruction of bile duct] Onset: 01-11-2024 01-11-2024 Chronic Chronic obstructive pulmonary disease and bronchiectasis (20 sources) Bronchiectasis; Translations: [Bronchiectasis, uncomplicated] Onset: 09-05-2020 09-05-2020 Chronic Deficiency and other anemia (1 source) Anemia; Translations: [Anemia, unspecified] 07-31-2024 Episodic Deficiency and other anemia (1 source) Iron deficiency anemia; Translations: [Iron deficiency anemia, unspecified] 08-01-2024 Episodic Deficiency and other anemia (1 source) Anemia, unspecified; Translations: [Anemia, unspecified type] Onset: 07-31-2024 Episodic Delirium, dementia, and amnestic and other cognitive disorders (2 sources) Multi-infarct dementia, uncomplicated; Translations: [Vascular dementia without behavioral disturbance] Onset: 07-31-2024 07-31-2024 Chronic Diabetes mellitus without complication (20 sources) Type 2 diabetes mellitus without complication; Translations: [Type 2 diabetes mellitus without complications] Onset: 08-07-2010 Chronic Diseases of white blood cells (3 sources) Leukocytosis; Translations: [Elevated white blood cell count, unspecified] Onset: 01-27-2024 01-12-2024 Chronic Disorders of lipid metabolism (20 sources) Hyperlipidemia; Translations: [Hyperlipidemia, unspecified] Onset: 07-15-2005 Resolved: 07-30-2015 Chronic Fracture of lower limb (1 source) Closed fracture of patella; Translations: [Unspecified fracture of left patella, initial encounter for closed fracture] 06-18-2024 Episodic Genitourinary symptoms and ill-defined conditions (1 source) Post-micturition incontinence ; Translations: [Post-void dribbling] Chronic Immunizations and screening for infectious disease (2 sources) Needs influenza immunization; Translations: [Encounter for immunization] Episodic Late effects of cerebrovascular disease (20 sources) Sequela of cerebrovascular accident; Translations: [Unspecified sequelae of cerebral infarction] Onset: 09-05-2023 Resolved: 10-05-2023 09-14-2023 Chronic Mood disorders (20 sources) Mild depression; Translations: [Mild depressive disorder] Onset: 10-25-2019 10-25-2019 Chronic Mycoses (1 source) Tinea cruris; Translations: [Tinea cruris] 04-18-2024 Episodic Occlusion or stenosis of precerebral arteries (20 sources) Bilateral stenosis of carotid arteries; Translations: [Occlusion and stenosis of bilateral carotid arteries] Onset: 02-15-2022 Chronic Other connective tissue disease (2 sources) Pain in toe; Translations: [Pain in unspecified toe(s)] Episodic Other disorders of stomach and duodenum (2 sources) Gastroparesis syndrome; Translations: [Gastroparesis] 01-09-2024 Episodic Other ear and sense organ disorders (1 source) Acute otitis externa of right ear; Translations: [Unspecified acute noninfective otitis externa, right ear] Episodic Other gastrointestinal disorders (2 sources) Diarrhea; Translations: [Diarrhea, unspecified] 07-09-2024 Episodic Other gastrointestinal disorders (1 source) Diarrhea, unspecified; Translations: [Diarrhea, unspecified type] Onset: 07-31-2024 Episodic Other inflammatory condition of skin (20 sources) Psoriasis; Translations: [Other psoriasis] Onset: 08-16-2006 08-16-2006 Chronic Other liver diseases (2 sources) Elevated liver enzymes level; Translations: [Abnormal levels of other serum enzymes] 01-12-2024 Episodic Other lower respiratory disease (2 sources) Fibrosis of lung; Translations: [Pulmonary fibrosis, unspecified] Chronic Other lower respiratory disease (1 source) Interstitial lung disease; Translations: [Interstitial pulmonary disease, unspecified] Chronic Other lower respiratory disease (6 sources) Dyspnea; Translations: [Shortness of breath] Episodic Other lower respiratory disease (1 source) Cough; Translations: [Cough, unspecified type] Episodic Other nervous system disorders (5 sources) Polyneuropathy; Translations: [Polyneuropathy, unspecified] Onset: 07-31-2024 07-31-2024 Chronic Other nervous system disorders (1 source) Polyneuropathy, unspecified; Translations: [Polyneuropathy] Onset: 07-31-2024 Chronic Other non-traumatic joint disorders (3 sources) Pain in left knee; Translations: [Pain in joint, lower leg] Onset: 06-18-2024 06-17-2024 Episodic Other nutritional; endocrine; and metabolic disorders (20 sources) Obese class I; Translations: [Obesity, unspecified] Onset: 04-03-2018 04-03-2018 Chronic Other screening for suspected conditions (not [...] 04-06-2006 Chronic Residual codes; unclassified (1 source) Obstructive sleep apnea (adult) (pediatric); Translations: [CALLI (obstructive sleep apnea)] Onset: 08-21-2020 Chronic Residual codes; unclassified (1 source) At risk for physiological dysfunction; Translations: [Other specified personal risk factors, not elsewhere classified] Episodic Residual codes; unclassified (1 source) Amnesia; Translations: [Other amnesia] 01-27-2024 Episodic Screening and history of mental health and substance abuse codes (20 sources) Tobacco use and exposure - finding; Translations: [Personal history of nicotine dependence] Onset: 04-06-2006 08-07-2010 Episodic Substance-related disorders (2 sources) Cigarette smoker ; Translations: [Nicotine dependence, cigarettes, uncomplicated] 08-10-2023 Chronic Superficial injury; contusion (1 source) Abrasion of left knee; Translations: [Abrasion, left knee, initial encounter] 06-17-2024 Episodic Unclassified (1 source) Abdominal aortic aneurysm (AAA) without rupture, unspecified part (HCC); Translations: [Abdominal aortic aneurysm (AAA) without rupture, unspecified part (HCC)] Onset: 07-31-2024 Past or Other Problems Problem Classification Problem Date Documented Date Episodic/Chronic Allergic reactions (20 sources) Radiation-induced dermatosis; Translations: [Other skin changes due to chronic exposure to nonionizing radiation] Onset: 08-16-2006 Resolved: 10-05-2023 08-16-2006 Episodic Anxiety disorders (20 sources) Anxiety state; Translations: [Generalized anxiety disorder] Onset: 08-19-2005 Resolved: 09-21-2016 09-21-2016 Chronic Diabetes mellitus without complication (20 sources) Hyperglycemia; Translations: [Hyperglycemia, unspecified] Onset: 09-05-2023 09-05-2023 Episodic Genitourinary symptoms and ill-defined conditions (20 sources) Microscopic hematuria; Translations: [Other microscopic hematuria] Onset: 12-13-2023 12-15-2023 Episodic Malaise and fatigue (20 sources) Malaise and fatigue; Translations: [Other malaise] Onset: 08-03-2005 Resolved: 08-07-2010 08-07-2010 Episodic Miscellaneous mental health disorders (20 sources) Psychosexual dysfunction; Translations: [Unspecified sexual dysfunction not due to a substance or known physiological condition] Onset: 04-06-2006 Resolved: 09-21-2016 09-21-2016 Chronic Neoplasms of unspecified nature or uncertain behavior (20 sources) Thrombocytosis; Translations: [Thrombocytosis] Onset: 10-12-2011 Resolved: 09-21-2016 02-20-2024 Episodic Other and unspecified benign neoplasm (20 sources) History of polyp of colon; Translations: [Personal history of colonic polyps] Onset: 08-21-2020 08-21-2020 Episodic Other and unspecified benign neoplasm (20 sources) Dermatofibroma; Translations: [Other benign neoplasm of skin of unspecified upper limb, including shoulder] Onset: 10-12-2011 Resolved: 09-21-2016 09-21-2016 Episodic Other circulatory disease (20 sources) History of cerebrovascular accident; Translations: [Personal history of transient ischemic attack (TIA), and cerebral infarction without residual deficits] Onset: 09-14-2023 09-14-2023 Episodic Other circulatory disease (1 source) Personal history of transient ischemic attack (TIA), and cerebral infarction without residual deficits; Translations: [History of CVA (cerebrovascular accident)] Onset: 12-13-2023 Episodic Other connective tissue disease (20 sources) Impingement syndrome of right shoulder region; Translations: [Impingement syndrome of right shoulder] Onset: 11-01-2011 11-01-2011 Episodic Other connective tissue disease (20 sources) Neurological symptom; Translations: [Unspecified symptoms and signs involving the nervous system] Onset: 09-07-2023 Resolved: 10-05-2023 10-05-2023 Episodic Other disorders of stomach and duodenum (1 source) Gastroparesis; Translations: [Gastroparesis] Onset: 12-13-2023 Episodic Other ear and sense organ disorders (20 sources) Chondrodermatitis nodularis helicis; Translations: [Unspecified perichondritis of external ear, unspecified ear] Onset: 10-12-2011 Resolved: 09-21-2016 09-21-2016 Episodic Other liver diseases (1 source) Abnormal levels of other serum enzymes; Translations: [Elevated liver enzymes] Onset: 12-16-2023 Episodic Other lower respiratory disease (20 sources) Multiple nodules of lung; Translations: [Other nonspecific abnormal finding of lung field] Onset: 09-05-2020 09-05-2020 Episodic Other lower respiratory disease (1 source) Other nonspecific abnormal finding of lung field; Translations: [Lung nodules] Onset: 09-05-2020 Episodic Other male genital disorders (20 sources) Disorder of prostate; Translations: [Disorder of prostate, unspecified] Onset: 08-03-2005 Resolved: 08-07-2010 08-07-2010 Episodic Other nervous system disorders (20 sources) Slurred speech; Translations: [Slurred speech] Onset: 09-14-2023 Resolved: 10-05-2023 09-14-2023 Episodic Other nutritional; endocrine; and metabolic disorders (20 sources) Obesity; Translations: [Obesity, unspecified] Onset: 04-06-2006 Resolved: 10-05-2023 04-06-2006 Chronic Other nutritional; endocrine; and metabolic disorders (20 sources) H/O: diabetes mellitus; Translations: [Personal history of other endocrine, nutritional and metabolic disease] Onset: 09-14-2023 Resolved: 10-05-2023 09-14-2023 Episodic Other screening for suspected conditions (not mental disorders or infectious disease) (20 sources) Carotid artery doppler abnormal; Translations: [Abnormal findings on diagnostic imaging of other specified body structures] Onset: 08-12-2021 Resolved: 10-05-2023 08-12-2021 Chronic Other skin disorders (20 sources) Vesicular eczema; Translations: [Dyshidrosis [pompholyx]] Onset: 08-16-2006 01-02-2010 Episodic Other skin disorders (20 sources) Seborrheic keratosis; Translations: [Other seborrheic keratosis] Onset: 06-17-2008 06-17-2008 Episodic Other skin disorders (20 sources) Solar lentigo; Translations: [Other melanin hyperpigmentation] Onset: 10-12-2011 10-12-2011 Episodic Other skin disorders (20 sources) Asteatosis cutis; Translations: [Xerosis cutis] Onset: 07-30-2012 07-30-2012 Episodic Other skin disorders (20 sources) Inflamed seborrheic keratosis; Translations: [Inflamed seborrheic keratosis] Onset: 08-16-2006 Resolved: 09-19-2012 09-19-2012 Episodic Other skin disorders (20 sources) Disorder of sebaceous gland; Translations: [Other specified follicular disorders] Onset: 08-16-2006 Resolved: 09-21-2016 09-21-2016 Episodic Other skin disorders (20 sources) Actinic keratosis; Translations: [Actinic keratosis] Onset: 10-12-2011 Resolved: 09-21-2016 09-21-2016 Episodic Other skin disorders (20 sources) Skin tag; Translations: [Other hypertrophic disorders of the skin] Onset: 10-12-2011 Resolved: 09-21-2016 09-21-2016 Episodic Residual codes; unclassified (20 sources) Altered mental status; Translations: [Altered mental status, unspecified] Onset: 09-05-2023 Resolved: 10-05-2023 09-05-2023 Episodic Residual codes; unclassified (1 source) Other amnesia; Translations: [Memory loss] Onset: 01-27-2024 Episodic Residual codes; unclassified (1 source) Altered mental status, unspecified; Translations: [Altered mental status, unspecified altered mental status type] Onset: 09-05-2023 Episodic Urinary tract infections (1 source) Urinary tract infection, site not specified; Translations: [Urinary tract infection without hematuria, site unspecified] Onset: 11-11-2023 Episodic Viral infection (20 sources) Verruca vulgaris; Translations: [Viral wart, unspecified] Onset: 08-16-2006 Resolved: 09-21-2016 09-21-2016 Episodic Results Test Name Value Interpretation Reference Range Facil ity [facility] 08-03-2024 [facility] Normal [facility] HBA1C (OUTSIDE)on 08-02-2024 HbA1c (Bld) [Mass fraction] 7.8 % [facility] Comment on above: Dr Hansen [facility] CBC W Auto Differential pane l (Bld)on 07-31-2024 Basophils (Bld) [#/Vol] 0.03 10*3/uL [facility] Basophils/100 WBC (Bld) 0.2 % [facility] Differential cell count method Nom (Bld) Auto [facility] Eosinophils (Bld) [#/Vol] [facility] Eosinophils/100 WBC (Bld) 0.1 % [facility] Erythrocyte distribution width (RBC) [Ratio] 12.9 % 11.5 - 15.0 % [facility] Hematocrit (Bld) [Volume fraction] 43.7 % 39.0 - 51.0 % [facility] Hemoglobin (Bld) [Mass/Vol] 14.0 g/dL 13.0 - 17.0 g/dL [facility] Immature granulocytes (Bld) [#/Vol] 0.06 10*3/uL [facility] Immature granulocytes/100 WBC (Bld) 0.4 % [facility] Interpretation and review of laboratory results Abnormal [facility] Lymphocytes (Bld) [#/Vol] 0.79 10*3/uL Low [facility] Lymphocytes/100 WBC (Bld) 4.9 % [facility] MCH (RBC) [Entitic mass] 28.3 pg 26.0 - 34.0 pg [facility] MCHC (RBC) [Mass/Vol] 32.0 g/dL 30.5 - 36.0 g/dL [facility] MCV (RBC) [Entitic vol] 88.5 fL 80.0 - 100.0 fL [facility] Monocytes (Bld) [#/Vol] 0.38 10*3/[facility] Monocytes/100 WBC (Bld) 2.4 % [facility] Neutrophils (Bld) [#/Vol] 14.73 10*3/uL High [facility] Neutrophils/100 WBC (Bld) 92.0 % [facility] Nucleated RBC (Bld) [#/Vol] NINF [facility] Nucleated RBC/100 WBC (Bld) [Ratio] 0.0 % /100 WBC [facility] Platelet mean volume (Bld) [Entitic vol] 12.9 fL High 9.0 - 12.7 fL [facility] Platelets (Bld) [#/Vol] 286 10*3/uL [facility] RBC (Bld) [#/Vol] 4.94 10*6/uL 4.20 - 6.0 0 m/uL [facility] WBC (Bld) [#/Vol] 16.00 10*3/uL [facility] Basophils (Bld) [#/Vol] 0.03 10*3/uL Normal <0.11 [facility] Comment on above: Order Comment: Speci men Type: BLOOD SPECIMENOrdering Facility: [facility] Address: [address] [place] [address] Performed By: #### 5 7021-8 ####[facility] LABCLIA [id number] [place] [address] [place] Basophils/100 WBC (Bld) 0.2 % Normal [facility] Comment on above: Order Comment: Speci men Type: BLOOD SPECIMENOrdering Facility: [facility] Address: [address] [place] [address] Performed By: #### 5 7021-8 ####[facility] LABCLIA [id number] [place] [address] [place] Differential cell count method Nom (Bld) Auto Normal [facility] Comment on above: Order Comment: Speci men Type: BLOOD SPECIMENOrdering Facility: [facility] Address: [address] [place] [address] Performed By: #### 5 7021-8 ####[facility] LABCLIA [id number] [place] [address] [place] Eosinophils (Bld) [#/Vol] 10*3/uL Normal <0.46 [facility] Comment on above: Order Comment: Speci men Type: BLOOD SPECIMENOrdering Facility: [facility] Address: [address] [place] [address] Performed By: #### 5 7021-8 ####[facility] LABCLIA [id number] [place] [address] [place] Eosinophils/100 WBC (Bld) 0.1 % Normal [facility] Comment on above: Order Comment: Speci men Type: BLOOD SPECIMENOrdering Facility: [facility] Address: [address] [place] [address] Performed By: #### 5 7021-8 ####[facility] LABCLIA [id number] [place] [address] [place] Erythrocyte distribution width (RBC) [Ratio] 12.9 % Normal 11.5-15.0 [facility] Comment on above: Order Comment: Speci men Type: BLOOD SPECIMENOrdering Facility: [facility] Address: [address] [place] [address] Performed By: #### 5 7021-8 ####[facility] LABCLIA [id number] [place] [address] [place] Hematocrit (Bld) [Volume fraction] 43.7 % Normal 39.0-51.0 [facility] Comment on above: Order Comment: Speci men Type: BLOOD SPECIMENOrdering Facility: [facility] Address: [address] [place] [address] Performed By: #### 5 7021-8 ####[facility] LABCLIA [id number] [place] [address] [place] Hemoglobin (Bld) [Mass/Vol] 14.0 g/dL Normal 13.0-17.0 [facility] Comment on above: Order Comment: Speci men Type: BLOOD SPECIMENOrdering Facility: [facility] Address: [address] [place] [address] Performed By: #### 5 7021-8 ####[facility] LABCLIA [id number] [place] [address] [place] Immature granulocytes (Bld) [#/Vol] 0.06 10*3/uL Normal <0.10 [facility] Comment on above: Order Comment: Speci men Type: BLOOD SPECIMENOrdering Facility: [facility] Address: [address] [place] [address] Performed By: #### 5 7021-8 ####[facility] LABCLIA [id number] [place] [address] [place] Immature granulocytes/100 WBC (Bld) 0.4 % Normal [facility] Comment on above: Order Comment: Speci men Type: BLOOD SPECIMENOrdering Facility: [facility] Address: [address] [place] [address] Performed By: #### 5 7021-8 ####[facility] LABCLIA [id number] [place] [address] [place] Lymphocytes (Bld) [#/Vol] 0.79 10*3/uL Low 1.00-4.00 [facility] Comment on above: Order Comment: Speci men Type: BLOOD SPECIMENOrdering Facility: [facility] Address: [address] [place] [address] Performed By: #### 5 7021-8 ####[facility] LABCLIA [id number] [place] [address] [place] Lymphocytes/100 WBC (Bld) 4.9 % Normal [facility] Comment on above: Order Comment: Speci men Type: BLOOD SPECIMENOrdering Facility: [facility] Address: [address] [place] [address] Performed By: #### 5 7021-8 ####[facility] LABCLIA [id number] [place] [address] [place] MCH (RBC) [Entitic mass] 28.3 pg Normal 26.0-34.0 [facility] Comment on above: Order Comment: Speci men Type: BLOOD SPECIMENOrdering Facility: [facility] Address: [address] [place] [address] Performed By: #### 5 7021-8 ####[facility] LABIA [id number] [place] [address] [place] MCHC (RBC) [Mass/Vol] 32.0 g/dL Normal 30.5-36.0 [facility] Comment on above: Order Comment: Speci men Type: BLOOD SPECIMENOrdering Facility: [facility] Address: [address] [place] [address] Performed By: #### 5 7021-8 ####[facility] LABIA [id number] [place] [address] [place] MCV (RBC) [Entitic vol] 88.5 fL Normal 80.0-100.0 [facility] Comment on above: Order Comment: Speci men Type: BLOOD SPECIMENOrdering Facility: [facility] Address: [address] [place] [address] Performed By: #### 5 7021-8 ####[facility] LABIA [id number] [id number] [address] [place] Monocytes (Bld) [#/Vol] 0.38 10*3/uL Normal <0.87 [facility] Comment on above: Order Comment: Speci men Type: BLOOD SPECIMENOrdering Facility: [facility] Address: [address] [place] [address] Performed By: #### 5 7021-8 ####[facility] LABCLIA [id number] [place] [address] [place] Monocytes/100 WBC (Bld) 2.4 % Normal [facility] Comment on above: Order Comment: Speci men Type: BLOOD SPECIMENOrdering Facility: [facility] Address: [address] [place] [address] Performed By: #### 5 7021-8 ####[facility] LABCLIA [id number] [place] [address] [place] Neutrophils (Bld) [#/Vol] 14.73 10*3/uL High 1.45-7.50 [facility] Comment on above: Order Comment: Speci men Type: BLOOD SPECIMENOrdering Facility: [facility] Address: [address] [place] [address] Performed By: #### 5 7021-8 ####[facility] LABCLIA [id number] [place] [address] [place] Neutrophils/100 WBC (Bld) 92.0 % Normal [facility] Comment on above: Order Comment: Speci men Type: BLOOD SPECIMENOrdering Facility: [facility] Address: [address] [place] [address] Performed By: #### 5 7021-8 ####[facility] LABCLIA [id number] [place] [address] [place] Nucleated RBC (Bld) [#/Vol] 10*3/uL Normal <0.01 [facility] Comment on above: Order Comment: Speci men Type: BLOOD SPECIMENOrdering Facility: [facility] Address: [address] [place] [address] Performed By: #### 5 7021-8 ####[facility] LABCLIA [id number] [place] [address] [place] Nucleated RBC/100 WBC (Bld) [Ratio] 0.0 /100 WBC [facility] Comment on above: Order Comment: Speci men Type: BLOOD SPECIMENOrdering Facility: [facility] Address: [address] [place] [address] Performed By: #### 5 7021-8 ####[facility] LABCLIA [id number] [place] [address] [place] Platelet mean volume (Bld) [Entitic vol] 12.9 fL High 9.0-12.7 [facility] Comment on above: Order Comment: Speci men Type: BLOOD SPECIMENOrdering Facility: [facility] Address: [address] [place] [address] Performed By: #### 5 7021-8 ####[facility] LABCLIA [id number] [place] [address] [place] Platelets (Bld) [#/Vol] 286 10*3/uL Normal 150-400 [facility] Comment on above: Order Comment: Speci men Type: BLOOD SPECIMENOrdering Facility: [facility] Address: [address] [place] [address] Performed By: #### 5 7021-8 ####[facility] LABCLIA [id number] [place] [address] [place] RBC (Bld) [#/Vol] 4.94 10*6/uL Normal 4.20-6.00 [facility] Comment on above: Order Comment: Speci men Type: BLOOD SPECIMENOrdering Facility: [facility] Address: [address] [place] [address] Performed By: #### 5 7021-8 ####[facility] LABCLIA [id number] [place] [address] [place] WBC (Bld) [#/Vol] 16.00 10*3/uL High 3.70-11.00 [facility] Comment on above: Order Comment: Speci men Type: BLOOD SPECIMENOrdering Facility: [facility] Address: [address] [place] [address] Performed By: #### 5 7021-8 ####[facility] LABCLIA [id number] [place] [address] [place] CNOVon 07-31-2024 CNOV Normal [facility] Comprehensive metabolic 2000 panelon 07-31-2024 Albumin [Mass/Vol] 3.7 g/dL Low 3.9-4.9 [facility] Comment on above: Order Comment: Speci men Type: BLOOD SPECIMENOrdering Facility: [facility] Address: [address] [place] [address] Performed By: #### 2 4323-8, 47413-7, 2275-4 ####[facility] LABCLIA [id number] [place] [address] [place] ALP [Catalytic activity/Vol] 109 U/L Normal 38-113 [facility] Comment on above: Order Comment: Speci men Type: BLOOD SPECIMENOrdering Facility: [facility] Address: [address] [place] [address] Performed By: #### 2 4323-8, 07543-6, 2275-4 ####[facility] LABCLIA [id number] [place] [address] [place] ALT [Catalytic activity/Vol] 39 U/L Normal 10-54 [facility] Comment on above: Order Comment: Speci men Type: BLOOD SPECIMENOrdering Facility: [facility] Address: [address] [place] [address] Performed By: #### 2 4323-8, 68654-3, 2275-4 ####[facility] LABCLIA [id number] [place] [address] [place] Anion gap [Moles/Vol] 12 mmol/L Normal 8-15 [facility] Comment on above: Order Comment: Speci men Type: BLOOD SPECIMENOrdering Facility: [facility] Address: [address] [place] [address] Performed By: #### 2 4323-8, 28552-5, 2275-4 ####[facility] LABCLIA [id number] [place] [address] [place] AST [Catalytic activity/Vol] 23 U/L Normal 14-40 [facility] Comment on above: Order Comment: Speci men Type: BLOOD SPECIMENOrdering Facility: [facility] Address: [address] [place] [address] Performed By: #### 2 4323-8, 25679-8, 2275-4 ####[facility] LABCLIA [id number] [place] [address] [place] Bilirubin [Mass/Vol] 0.2 mg/dL Normal 0.2-1.3 [facility] Comment on above: Order Comment: Speci men Type: BLOOD SPECIMENOrdering Facility: [facility] Address: [address] [place] [address] Performed By: #### 2 4323-8, 16545-9, 2275-4 ####[facility] LABCLIA [id number] [place] [address] [place] Calcium [Mass/Vol] 8.7 mg/dL Normal 8.5-10.2 [facility] Comment on above: Order Comment: Speci men Type: BLOOD SPECIMENOrdering Facility: [facility] Address: [address] [place] [address] Performed By: #### 2 4323-8, 65551-3, 2275-4 ####[facility] LABCLIA [id number] [id number] [address] [place] Chloride [Moles/Vol] 102 mmol/L Normal 98-107 [facility] Comment on above: Order Comment: Speci men Type: BLOOD SPECIMENOrdering Facility: [facility] Address: [address] [place] [address] Performed By: #### 2 4323-8, 33936-2, 2276-4 ####[facility] LABCLIA [id number] [place] [address] [place] CO2 [Moles/Vol] 26 mmol/L Normal 22-30 [facility] Comment on above: Order Comment: Speci men Type: BLOOD SPECIMENOrdering Facility: [facility] Address: [address] [place] [address] Performed By: #### 2 4323-8, 00686-1, 2276-4 ####[facility] LABCLIA [id number] [place] [address] [place] Creatinine [Mass/Vol] 0.98 mg/dL Normal 0.73-1.22 [facility] Comment on above: Order Comment: Speci men Type: BLOOD SPECIMENOrdering Facility: [facility] Address: [address] [place] [address] Performed By: #### 2 4323-8, 88940-0, 2276-4 ####[facility] LABCLIA [id number] [place] [address] [place] Creatinine and Glomerular filtration rate.predicted panel (S/P/Bld) 83 mL/min/1.73m??? Normal >=60 [facility] Comment on above: Order Comment: Speci men Type: BLOOD SPECIMENOrdering Facility: [facility] Address: [address] [place] [address] Result Comment: Jessica mated Glomerular Filtration Rate (eGFR) is calculated using the 2020 CKD-EPI creatinine equation. This equation utilizes serum creatinine, sex, and age as parameters. The creatinine assay has traceable calibration to isotope dilution-mass spectrometry. Refer to KDIGO guidelines for clinical interpretation. In patients with unstable renal function, e.g. those with acute kidney injury, the eGFR may not accurately reflect actual GFR. Performed By: #### 2 4323-8, 17937-1, 2276-02 ####[facility] LABCLIA [id number] [address] [address] [place] Glucose [Mass/Vol] 183 mg/dL High 74-99 [facility] Comment on above: Order Comment: Speci men Type: BLOOD SPECIMENOrdering Facility: [facility] Address: [address] [place] [address] Result Comment: The [place] Diabetes Association (ADA) provides guidance for cutoff values for fasting glucose and random glucose. The ADA defines fasting as no caloric intake for at least 8 hours. Fasting plasma glucose results between 100 to 125 mg/dL indicate increased risk for diabetes (prediabetes).Fasting plasma glucose results greater than or equal to 126 mg/dL meet the criteria for diagnosis of diabetes. In the absence of unequivocal hyperglycemia, results should be confirmed by repeat testing. In a patient with classic symptoms of hyperglycemia or hyperglycemic crisis, random plasma glucose results greater than or equal to 200 mg/dL meet the criteria for diagnosis of diabetes.Reference: Standards of Medical Care in Diabetes 2016, [place] Diabetes Association. Diabetes Care. 2016.39(Suppl 1). Performed By: #### 2 4323-8, 56417-6, 2276-02 ####[facility] LABCLIA [id number] [address] [address] [place] Potassium [Moles/Vol] 4.4 mmol/L Normal 3.7-5.1 [facility] Comment on above: Order Comment: Rikkii men Type: BLOOD SPECIMENOrdering Facility: [facility] Address: [address] [place] [address] Performed By: #### 2 4323-8, 78442-4, 2276-02 ####[facility] LABCLIA [id number] [address] [address] [place] Protein [Mass/Vol] 6.3 g/dL Normal 6.3-8.0 [facility] Comment on above: Order Comment: Speci men Type: BLOOD SPECIMENOrdering Facility: [facility] Address: [address] [place] [address] Performed By: #### 2 4323-8, 86173-2, 6-4 ####[facility] LABCLIA [id number] [place] [address] [place] Sodium [Moles/Vol] 140 mmol/L Normal 136-144 [facility] Comment on above: Order Comment: Speci men Type: BLOOD SPECIMENOrdering Facility: [facility] Address: [address] [place] [address] Performed By: #### 2 4323-8, 21641-9, 6-4 ####[facility] LABCLIA [id number] [place] [address] [place] Urea nitrogen [Mass/Vol] 18 mg/dL Normal 9-24 [facility] Comment on above: Order Comment: Speci men Type: BLOOD SPECIMENOrdering Facility: [facility] Address: [address] [place] [address] Performed By: #### 2 4323-8, 31375-9, 6-4 ####[facility] LABIA [id number] [place] [address] [place] Ferritin SerPl-mCncon 2023 Ferritin [Mass/Vol] 23.8 ng/mL Low 30.3-565.7 [facility] Comment on above: Order Comment: Speci men Type: BLOOD SPECIMENOrdering Facility: [facility] Address: [address] [place] [address] Performed By: #### 2 4323-8, 26970-9, 2275-4 ####[facility] LABCLIA [id number] [place] [address] [place] Folate SerPl-mCncon 07-31-20 Folate [Mass/Vol] 9.5 ng/mL Normal >4.7 [facility] Comment on above: Order Comment: Speci men Type: BLOOD SPECIMENOrdering Facility: [facility] Address: [address] [place] [address] Performed By: #### 2 132-9, 2284-8 ####[facility] LABCLIA [id number] [place] [id number] [place] Iron and Iron binding capaci ty panelon 07-31-2024 Iron [Mass/Vol] 36 ug/dL Low 41-186 [facility] Comment on above: Order Comment: Speci men Type: BLOOD SPECIMENOrdering Facility: [facility] Address: [address] [place] [address] Performed By: #### 2 4323-8, 52792-7, 2275-4 ####[facility] LABIA [id number] [place] [address] [place] Iron binding capacity [Mass/Vol] 322 ug/dL Normal 232-386 [facility] Comment on above: Order Comment: Speci men Type: BLOOD SPECIMENOrdering Facility: [facility] Address: [address] [place] [address] Performed By: #### 2 4323-8, 87865-3, 2275-4 ####[facility] LABIA [id number] [place] [address] [place] Iron/TIBC [Molar ratio] 11.2 % Low 15.0-57.0 [facility] Comment on above: Order Comment: Speci men Type: BLOOD SPECIMENOrdering Facility: [facility] Address: [address] [place] [address] Performed By: #### 2 4323-8, 41761-6, 2275-4 ####[facility] LABCLIA [id number] [place] [id number] [place] Vit B12 SerPl-[facility] 024 Cobalamin (Vitamin B12) [Mass/Vol] 1803 pg/mL High 232-1245 [facility] Comment on above: Order Comment: Speci men Type: BLOOD SPECIMENOrdering Facility: [facility] Address: [address] [place] [address] Performed By: #### 2 132-9, 2284-8 ####[facility] LABCLIA [id number] [place] [address] [place] C diff Tox gens Stl Ql MAURICIO+p robeon 07-09-2024 C. difficile toxin genes MAURICIO+probe Ql (Stl) Negative Normal Negative for C. difficile toxin by PCR [facility] Comment on above: Order Comment: Speci men Type: STOOL SPECIMENOrdering Facility: [facility] Address: [address] [place] [address] Performed By: #### 5 4067-4 ####[facility] LABIA [id number] [place] [address] [place] CNOVon 07-09-2024 CNOV Normal [facility] Gastrointestinal pathogens i dentified MAURICIO+probe Nom (Stl)on 07-09-2024 Campylobacter sp DNA MAURICIO+probe Nom (Unsp spec) Not detected Normal Not Detected [facility] Comment on above: Order Comment: Speci men Type: STOOL SPECIMENOrdering Facility: [facility] Address: [address] [place] [address] Performed By: #### 7 9390-1 ####[facility] LABCLIA [id number] [place] [address] [place] Salmonella sp DNA MAURICIO+probe Ql (Unsp spec) Not detected Normal Not Detected [facility] Comment on above: Order Comment: Speci men Type: STOOL SPECIMENOrdering Facility: [facility] Address: [address] [place] [address] Performed By: #### 7 9390-1 ####[facility] LABCLIA [id number] [place] [address] [place] Shiga toxin stx gene MAURICIO+probe Nom (Unsp spec) Not detected Normal Not Detected [facility] Comment on above: Order Comment: Speci men Type: STOOL SPECIMENOrdering Facility: [facility] Address: [address] [place] [address] Performed By: #### 7 9390-1 ####[facility] LABCLIA [id number] [place] [address] [place] Shigella sp DNA MAURICIO+probe Ql (Unsp spec) Not detected Normal Not Detected [facility] Comment on above: Order Comment: Speci men Type: STOOL SPECIMENOrdering Facility: [facility] Address: [address] [place] [address] Performed By: #### 7 9390-1 ####[facility] LABCLIA [id number] [place] [address] [place] CNPNon 06-18-2024 CNPN [facility] XR KNEE 4V AP/PA BOTH+LAT/ME R LTon 06-18-2024 XR KNEE 4V AP/PA BOTH+LAT/MARTA LT Normal [facility] XR Knee - left 4 Viewson IMPRESSION: Possible fracture of the lower pole patellar enthesophyte. Please correlate clinically. Meat Butcher: ABDULKADIR Transcribe Date/Time: Jun 18 2024 8:33A Dictated by : CAMILO DONOVAN MD This examination was interpreted and the report reviewed and electronically signed by: CAMILO DONOVAN MD on Jun 18 2024 8:35AM [facility] DIVISION OF RADIOLOGY * * *Final Report* * * DATE OF EXAM: Jun 18 2024 8:31AM WOX 5202 - XR KNEE 4V AP/PA BOTH+LAT/MARTA LT / PROCEDURE REASON: Acute pain of left knee * * * * Physician Interpretation * * * * PROCEDURE: Left knee INDICATION: Acute pain of left knee .Left anterior knee pain following a fall x 2 days ago. TECHNIQUE: XR KNEE 4V AP/PA BOTH+LAT/MARTA LT COMPARISON: None FINDINGS: Possible fracture of the lower pole patellar enthesophyte, age uncertain. Mild patellofemoral joint osteoarthrosis. Femoral tibial joint compartments are maintained. No joint effusion. DIVISION OF RADIOLOGY Provider, Amanda Sissy [facility] - 06/18/2024 * * *Final Report* * * DATE OF EXAM: Jun 18 2024 8:31AM WOX 5202 - XR KNEE 4V AP/PA BOTH+LAT/MARTA LT / PROCEDURE REASON: Acute pain of left knee * * * * Physician Interpretation * * * * PROCEDURE: Left knee INDICATION: Acute pain of left knee .Left anterior knee pain following a fall x 2 days ago. TECHNIQUE: XR KNEE 4V AP/PA BOTH+LAT/MARTA LT COMPARISON: None FINDINGS: Possible fracture of the lower pole patellar enthesophyte, age uncertain. Mild patellofemoral joint osteoarthrosis. Femoral tibial joint compartments are maintained. No joint effusion. IMPRESSION IMPRESSION: Possible fracture of the lower pole patellar enthesophyte. Please correlate clinically. Meat Butcher: ABDULKADIR Transcribe Date/Time: Jun 18 2024 8:33A Dictated by : CAMILO DONOVAN MD This examination was interpreted and the report reviewed and electronically signed by: CAMILO DONOVAN MD on Jun 18 2024 8:35AM EST [facility] Radiology Study observation (narrative) [facility] XR Knee - left 4 ViewsOrdere d By: Ccf Provider on 06-18-2024 [facility] CNOVon 06-17-2024 CNOV [facility] CNPNon 06-13-2024 CNPN [facility] HBA1C (OUTSIDE)on 04-25-2024 HbA1c (Bld) [Mass fraction] 7.2 % [facility] Comment on above: per endo [facility] CNOVon 04-18-2024 CNOV [facility] HbA1c (Bld)on 04-13-2024 Average glucose Estimated from glycated hemoglobin (Bld) [Mass/Vol] 163 mg/dL Normal [facility] Comment on above: Order Comment: Speci men Type: BLOOD SPECIMENOrdering Facility: [facility] Address: [address] [place] [address] Result Comment: eAG: (Estimated average glucose) is a calculated value from HgbA1c and is product support sales representative of the average blood glucose level in the last 2-3 month period. Performed By: #### 5 5454-3 ####[facility] LABCLIA [id number] [place] [address] [place] HbA1c (Bld) [Mass fraction] 7.3 % High 4.3-5.6 [facility] Comment on above: Order Comment: Speci men Type: BLOOD SPECIMENOrdering Facility: [facility] Address: [address] [place] [address] Result Comment: [place] Diabetes Association guidelines indicate that patients with HgbA1c in the range 5.7-6.4% are at increased risk for development of diabetes, and intervention by lifestyle modification may be beneficial. HgbA1c greater or equal to 6.5% is considered diagnostic of diabetes. Performed By: #### 5 5454-3 ####[facility] LABIA [id number] [place] [address] [place] Hepatic function 2000 panelo n 04-13-2024 Albumin [Mass/Vol] 3.8 g/dL Low 3.9-4.9 [facility] Comment on above: Order Comment: Speci men Type: BLOOD SPECIMENOrdering Facility: [facility] Address: [address] [place] [address] Performed By: #### 2 4325-3 ####[facility] LABIA [id number] [place] [address] [place] ALP [Catalytic activity/Vol] 105 U/L Normal 38-113 [facility] Comment on above: Order Comment: Speci men Type: BLOOD SPECIMENOrdering Facility: [facility] Address: [address] [place] [address] Performed By: #### 2 4325-3 ####[facility] LABIA [id number] [place] [address] [place] ALT [Catalytic activity/Vol] 23 U/L Normal 10-54 [facility] Comment on above: Order Comment: Speci men Type: BLOOD SPECIMENOrdering Facility: [facility] Address: [address] [place] [address] Performed By: #### 2 4325-3 ####[facility] LABCLIA [id number] [place] [address] [place] AST [Catalytic activity/Vol] 18 U/L Normal 14-40 [facility] Comment on above: Order Comment: Speci men Type: BLOOD SPECIMENOrdering Facility: [facility] Address: [address] [place] [address] Performed By: #### 2 4325-3 ####[facility] LABCLIA [id number] [place] [address] [place] Bilirubin [Mass/Vol] 0.5 mg/dL Normal 0.2-1.3 [facility] Comment on above: Order Comment: Speci men Type: BLOOD SPECIMENOrdering Facility: [facility] Address: [address] [place] [address] Performed By: #### 2 4325-3 ####[facility] LABIA [id number] [place] [address] [place] Bilirubin.conjugated [Mass/Vol] mg/dL Normal <0.2 [facility] Comment on above: Order Comment: Speci men Type: BLOOD SPECIMENOrdering Facility: [facility] Address: [address] [place] [address] Performed By: #### 2 4325-3 ####[facility] LABIA [id number] [place] [address] [place] Protein [Mass/Vol] 6.9 g/dL Normal 6.3-8.0 [facility] Comment on above: Order Comment: Speci men Type: BLOOD SPECIMENOrdering Facility: [facility] Address: [address] [place] [address] Performed By: #### 2 4325-3 ####[facility] LABIA [id number] [place] [address] [place] Platelets Auto (Bld) [#/Vol] on 04-13-2024 Platelets (Bld) [#/Vol] 237 10*3/uL Normal 150-400 [facility] Comment on above: Order Comment: Speci men Type: BLOOD SPECIMENOrdering Facility: [facility] Address: [address] [place] [address] Performed By: #### 7 77-3 ####[facility] LABCLIA [id number] [place] [address] [place] CNOVon 03-20-2024 CNOV Normal [facility] CNPNon 02-24-2024 CNPN Normal [facility] CNPNon 02-20-2024 CNPN Normal [facility] CBC W Auto Differential pane l (Bld)on 02-17-2024 Basophils (Bld) [#/Vol] 0.10 10*3/uL Normal <0.11 [facility] Comment on above: Order Comment: Speci men Type: BLOOD SPECIMENOrdering Facility: [facility] Address: [address] [place] [address] Performed By: #### 5 7021-8 ####[facility] LABCLIA [id number] [place] [address] [place] Basophils/100 WBC (Bld) 0.9 % Normal [facility] Comment on above: Order Comment: Speci men Type: BLOOD SPECIMENOrdering Facility: [facility] Address: [address] [place] [address] Performed By: #### 5 7021-8 ####[facility] LABCLIA [id number] [place] [address] [place] Differential cell count method Nom (Bld) Auto Normal [facility] Comment on above: Order Comment: Speci men Type: BLOOD SPECIMENOrdering Facility: [facility] Address: [address] [place] [address] Performed By: #### 5 7021-8 ####[facility] LABCLIA [id number] [place] [address] [place] Eosinophils (Bld) [#/Vol] 0.41 10*3/uL Normal <0.46 [facility] Comment on above: Order Comment: Speci men Type: BLOOD SPECIMENOrdering Facility: [facility] Address: [address] [place] [address] Performed By: #### 5 7021-8 ####[facility] LABCLIA [id number] [place] [address] [place] Eosinophils/100 WBC (Bld) 3.7 % Normal [facility] Comment on above: Order Comment: Speci men Type: BLOOD SPECIMENOrdering Facility: [facility] Address: [address] [place] [address] Performed By: #### 5 7021-8 ####[facility] LABCLIA [id number] [place] [address] [place] Erythrocyte distribution width (RBC) [Ratio] 15.3 % High 11.5-15.0 [facility] Comment on above: Order Comment: Speci men Type: BLOOD SPECIMENOrdering Facility: [facility] Address: [address] [place] [address] Performed By: #### 5 7021-8 ####[facility] LABCLIA [id number] [place] [address] [place] Hematocrit (Bld) [Volume fraction] 45.6 % Normal 39.0-51.0 [facility] Comment on above: Order Comment: Speci men Type: BLOOD SPECIMENOrdering Facility: [facility] Address: [address] [place] [address] Performed By: #### 5 7021-8 ####[facility] LABCLIA [id number] [place] [address] [place] Hemoglobin (Bld) [Mass/Vol] 14.5 g/dL Normal 13.0-17.0 [facility] Comment on above: Order Comment: Speci men Type: BLOOD SPECIMENOrdering Facility: [facility] Address: [address] [place] [address] Performed By: #### 5 7021-8 ####[facility] LABCLIA [id number] [place] [address] [place] Immature granulocytes (Bld) [#/Vol] 0.03 10*3/uL Normal <0.10 [facility] Comment on above: Order Comment: Speci men Type: BLOOD SPECIMENOrdering Facility: [facility] Address: [address] [place] [address] Performed By: #### 5 7021-8 ####[facility] LABCLIA [id number] [place] [address] [place] Immature granulocytes/100 WBC (Bld) 0.3 % Normal [facility] Comment on above: Order Comment: Speci men Type: BLOOD SPECIMENOrdering Facility: [facility] Address: [address] [place] [address] Performed By: #### 5 7021-8 ####[facility] [facility] [id number] [place] [address] [place] Lymphocytes (Bld) [#/Vol] 2.17 10*3/uL Normal 1.00-4.00 [facility] Comment on above: Order Comment: Speci men Type: BLOOD SPECIMENOrdering Facility: [facility] Address: [address] [place] [address] Performed By: #### 5 7021-8 ####[facility] [id number] [place] [address] [place] Lymphocytes/100 WBC (Bld) 19.4 % Normal [facility] Comment on above: Order Comment: Speci men Type: BLOOD SPECIMENOrdering Facility: [facility] Address: [address] [place] [address] Performed By: #### 5 7021-8 ####[facility]CLIA [id number] [place] [address] [place] MCH (RBC) [Entitic mass] 27.9 pg Normal 26.0-34.0 [facility] Comment on above: Order Comment: Speci men Type: BLOOD SPECIMENOrdering Facility: [facility] Address: [address] [place] [address] Performed By: #### 5 7021-8 ####[facility]CLIA [id number] [place] [address] [place] MCHC (RBC) [Mass/Vol] 31.8 g/dL Normal 30.5-36.0 [facility] Comment on above: Order Comment: Speci men Type: BLOOD SPECIMENOrdering Facility: [facility] Address: [address] [place] [address] Performed By: #### 5 7021-8 ####[facility]CLIA [id number] [place] [address] [place] MCV (RBC) [Entitic vol] 87.7 fL Normal 80.0-100.0 [facility] Comment on above: Order Comment: Speci men Type: BLOOD SPECIMENOrdering Facility: [facility] Address: [address] [place] [address] Performed By: #### 5 7021-8 ####[facility]IA [id number] [place] [address] [place] Monocytes (Bld) [#/Vol] 0.66 10*3/uL Normal <0.87 [facility] Comment on above: Order Comment: Speci men Type: BLOOD SPECIMENOrdering Facility: [facility] Address: [address] [place] [address] Performed By: #### 5 7021-8 ####[facility]CLIA [id number] [place] [address] [place] Monocytes/100 WBC (Bld) 5.9 % Normal [facility] Comment on above: Order Comment: Speci men Type: BLOOD SPECIMENOrdering Facility: [facility] Address: [address] [place] [address] Performed By: #### 5 7021-8 ####[facility]CLIA [id number] [place] [address] [place] Neutrophils (Bld) [#/Vol] 7.83 10*3/uL High 1.45-7.50 [facility] Comment on above: Order Comment: Speci men Type: BLOOD SPECIMENOrdering Facility: [facility] Address: [address] [place] [address] Performed By: #### 5 7021-8 ####[facility]IA [id number] [place] [address] [place] Neutrophils/100 WBC (Bld) 69.8 % Normal [facility] Comment on above: Order Comment: Speci men Type: BLOOD SPECIMENOrdering Facility: [facility] Address: [address] [place] [address] Performed By: #### 5 7021-8 ####[facility]CLIA [id number] [place] [address] [place] Nucleated RBC (Bld) [#/Vol] 10*3/uL Normal <0.01 [facility] Comment on above: Order Comment: Speci men Type: BLOOD SPECIMENOrdering Facility: [facility] Address: [address] [place] [address] Performed By: #### 5 7021-8 ####[facility]CLIA [id number] [place] [address] [place] Nucleated RBC/100 WBC (Bld) [Ratio] 0.0 /100 WBC Normal [facility] Comment on above: Order Comment: Speci men Type: BLOOD SPECIMENOrdering Facility: [facility] Address: [address] [place] [address] Performed By: #### 5 7021-8 ####[facility]IA [id number] [place] [address] [place] Platelet mean volume (Bld) [Entitic vol] 12.6 fL Normal 9.0-12.7 [facility] Comment on above: Order Comment: Speci men Type: BLOOD SPECIMENOrdering Facility: [facility] Address: [address] [place] [address] Performed By: #### 5 7021-8 ####[facility] LABIA [id number] [place] [address] [place] Platelets (Bld) [#/Vol] 471 10*3/uL High 150-400 [facility] Comment on above: Order Comment: Speci men Type: BLOOD SPECIMENOrdering Facility: [facility] Address: [address] [place] [address] Performed By: #### 5 7021-8 ####[facility] [id number] [place] [address] [place] RBC (Bld) [#/Vol] 5.20 10*6/uL Normal 4.20-6.00 [facility] Comment on above: Order Comment: Speci men Type: BLOOD SPECIMENOrdering Facility: [facility] Address: [address] [place] [address] Performed By: #### 5 7021-8 ####[facility] LABIA [id number] [place] [address] [place] WBC (Bld) [#/Vol] 11.20 10*3/uL High 3.70-11.00 [facility] Comment on above: Order Comment: Speci men Type: BLOOD SPECIMENOrdering Facility: [facility] Address: [address] [place] [address] Performed By: #### 5 7021-8 ####[facility] LABIA [id number] [place] [address] [place] CNOVon 02-17-2024 CNOV Normal [facility] Comprehensive metabolic 2000 panelon 02-17-2024 Albumin [Mass/Vol] 3.7 g/dL Low 3.9-4.9 [facility] Comment on above: Order Comment: Speci men Type: BLOOD SPECIMENOrdering Facility: [facility] Address: [address] [place] [address] Performed By: #### 2 4323-8 ####[facility] [id number] [place] [address] [place] ALP [Catalytic activity/Vol] 216 U/L High 38-113 [facility] Comment on above: Order Comment: Speci men Type: BLOOD SPECIMENOrdering Facility: [facility] Address: [address] [place] [address] Performed By: #### 2 4323-8 ####[facility]IA [id number] [place] [address] [place] ALT [Catalytic activity/Vol] 46 U/L Normal 10-54 [facility] Comment on above: Order Comment: Speci men Type: BLOOD SPECIMENOrdering Facility: [facility] Address: [address] [place] [address] Performed By: #### 2 4323-8 ####[facility]CLIA [id number] [place] [address] [place] Anion gap [Moles/Vol] 16 mmol/L Normal 9-18 [facility] Comment on above: Order Comment: Speci men Type: BLOOD SPECIMENOrdering Facility: [facility] Address: [address] [place] [address] Performed By: #### 2 4323-8 ####[facility]CLIA [id number] [place] [address] [place] AST [Catalytic activity/Vol] 29 U/L Normal 14-40 [facility] Comment on above: Order Comment: Speci men Type: BLOOD SPECIMENOrdering Facility: [facility] Address: [address] [place] [address] Performed By: #### 2 4323-8 ####[facility]CLIA [id number] [place] [address] [place] Bilirubin [Mass/Vol] 0.4 mg/dL Normal 0.2-1.3 [facility] Comment on above: Order Comment: Speci men Type: BLOOD SPECIMENOrdering Facility: [facility] Address: [address] [place] [address] Performed By: #### 2 4323-8 ####[facility]CLIA [id number] [place] [address] [place] Calcium [Mass/Vol] 9.3 mg/dL Normal 8.5-10.2 [facility] Comment on above: Order Comment: Speci men Type: BLOOD SPECIMENOrdering Facility: [facility] Address: [address] [place] [address] Performed By: #### 2 4323-8 ####[facility]CLIA [id number] [place] [address] [place] Chloride [Moles/Vol] 102 mmol/L Normal 97-105 [facility] Comment on above: Order Comment: Speci men Type: BLOOD SPECIMENOrdering Facility: [facility] Address: [address] [place] [address] Performed By: #### 2 4323-8 ####[facility]CLIA [id number] [place] [address] [place] CO2 [Moles/Vol] 20 mmol/L Low 22-30 [facility] Comment on above: Order Comment: Speci men Type: BLOOD SPECIMENOrdering Facility: [facility] Address: [address] [place] [address] Performed By: #### 2 4323-8 ####[facility]CLIA [id number] [address] [place] Creatinine [Mass/Vol] 1.00 mg/dL Normal 0.73-1.22 [facility] Comment on above: Order Comment: Coy haq Type: BLOOD SPECIMENOrdering Facility: [facility] Address: [address] [place] [address] Performed By: #### 2 4323-8 ####[facility] LABIA [id number] [place] [address] [place] Creatinine and Glomerular filtration rate.predicted panel (S/P/Bld) 81 mL/min/1.73m??? Normal >=60 [facility] Comment on above: Order Comment: Coy haq Type: BLOOD SPECIMENOrdering Facility: [facility] Address: [address] [place] [address] Result Comment: Jessica mated Glomerular Filtration Rate (eGFR) is calculated using the 2020 CKD-EPI creatinine equation. This equation utilizes serum creatinine, sex, and age as parameters. The creatinine assay has traceable calibration to isotope dilution-mass spectrometry. Refer to KDIGO guidelines for clinical interpretation. In patients with unstable renal function, e.g. those with acute kidney injury, the eGFR may not accurately reflect actual GFR. Performed By: #### 2 4323-8 ####[facility]CLIA [id number] [place] [address] [place] Glucose [Mass/Vol] 310 mg/dL High 74-99 [facility] Comment on above: Order Comment: Coy haq Type: BLOOD SPECIMENOrdering Facility: [facility] Address: [address] [place] [address] Result Comment: The [place] Diabetes [employer] (ADA) provides guidance for cutoff values for fasting glucose and random glucose. The ADA defines fasting as no caloric intake for at least 8 hours. Fasting plasma glucose results between 100 to 125 mg/dL indicate increased risk for diabetes (prediabetes).Fasting plasma glucose results greater than or equal to 126 mg/dL meet the criteria for diagnosis of diabetes. In the absence of unequivocal hyperglycemia, results should be confirmed by repeat testing. In a patient with classic symptoms of hyperglycemia or hyperglycemic crisis, random plasma glucose results greater than or equal to 200 mg/dL meet the criteria for diagnosis of diabetes.Reference: Standards of Medical Care in Diabetes 2016, [place] [employer]. Diabetes Care. 2016.39(Suppl 1). Performed By: #### 2 4323-8 ####[facility]CLIA [id number] [place] [address] [place] Potassium [Moles/Vol] 4.3 mmol/L Normal 3.7-5.1 [facility] Comment on above: Order Comment: Speci men Type: BLOOD SPECIMENOrdering Facility: [facility] Address: [address] [place] [address] Performed By: #### 2 4323-8 ####[facility]CLIA [id number] [place] [address] [place] Protein [Mass/Vol] 7.0 g/dL Normal 6.3-8.0 [facility] Comment on above: Order Comment: Speci men Type: BLOOD SPECIMENOrdering Facility: [facility] Address: [address] [place] [address] Performed By: #### 2 4323-8 ####[facility]CLIA [id number] [place] [address] [place] Sodium [Moles/Vol] 138 mmol/L Normal 136-144 [facility] Comment on above: Order Comment: Speci men Type: BLOOD SPECIMENOrdering Facility: [facility] Address: [address] [place] [address] Performed By: #### 2 4323-8 ####[facility]CLIA [id number] [place] [id number] [place] Urea nitrogen [Mass/Vol] 17 mg/dL Normal 9-24 [facility] Comment on above: Order Comment: Speci men Type: BLOOD SPECIMENOrdering Facility: [facility] Address: [address] [place] [address] Performed By: #### 2 4323-8 ####[facility] LABIA [id number] [place] [address] [place] HbA1c (Bld)on 02-17-2024 Average glucose Estimated from glycated hemoglobin (Bld) [Mass/Vol] 183 mg/dL Normal [facility] Comment on above: Order Comment: Coy haq Type: BLOOD SPECIMENOrdering Facility: [facility] Address: [address] [place] [address] Result Comment: eAG: (Estimated average glucose) is a calculated value from HgbA1c and is product support sales representative of the average blood glucose level in the last 2-3 month period. Performed By: #### 5 5454-3 ####[facility] LABIA [id number] [place] [address] [place] HbA1c (Bld) [Mass fraction] 8.0 % High 4.3-5.6 [facility] Comment on above: Order Comment: Coy men Type: BLOOD SPECIMENOrdering Facility: [facility] Address: [address] [place] [address] Result Comment: [place] Diabetes Association guidelines indicate that patients with HgbA1c in the range 5.7-6.4% are at increased risk for development of diabetes, and intervention by lifestyle modification may be beneficial. HgbA1c greater or equal to 6.5% is considered diagnostic of diabetes. Performed By: #### 5 5454-3 ####[facility] [id number] [place] [address] [place] CNPTOUTREACHon 02-07-2024 CNPTOUTREACH Normal [facility] CNPNon 02-02-2024 CNPN Normal [facility] Hepatic function 2000 panelo n 02-01-2024 Albumin [Mass/Vol] 4.0 g/dL Normal 3.9-4.9 [facility] Comment on above: Order Comment: Rikkii men Type: BLOOD SPECIMENOrdering Facility: [facility] Address: [address] [place] [address] Performed By: #### 2 4325-3 ####[facility] LABCLIA [id number] [place] [id number] [place] ALP [Catalytic activity/Vol] 560 U/L High 38-113 [facility] Comment on above: Order Comment: Speci men Type: BLOOD SPECIMENOrdering Facility: [facility] Address: [address] [place] [address] Performed By: #### 2 4325-3 ####[facility] LABCLIA [id number] [place] [address] [place] ALT [Catalytic activity/Vol] 310 U/L High 10-54 [facility] Comment on above: Order Comment: Speci men Type: BLOOD SPECIMENOrdering Facility: [facility] Address: [address] [place] [address] Performed By: #### 2 4325-3 ####[facility] LABCLIA [id number] [place] [address] [place] AST [Catalytic activity/Vol] 337 U/L High 14-40 [facility] Comment on above: Order Comment: Speci men Type: BLOOD SPECIMENOrdering Facility: [facility] Address: [address] [place] [address] Performed By: #### 2 4325-3 ####[facility]CLIA [id number] [place] [address] [place] Bilirubin [Mass/Vol] 1.3 mg/dL Normal 0.2-1.3 [facility] Comment on above: Order Comment: Speci men Type: BLOOD SPECIMENOrdering Facility: [facility] Address: [address] [place] [address] Performed By: #### 2 4325-3 ####[facility]CLIA [id number] [place] [address] [place] Bilirubin.conjugated [Mass/Vol] 0.7 mg/dL High <0.2 [facility] Comment on above: Order Comment: Speci men Type: BLOOD SPECIMENOrdering Facility: [facility] Address: [address] [place] [address] Performed By: #### 2 4325-3 ####[facility] LABIA [id number] [place] [address] [place] Protein [Mass/Vol] 7.2 g/dL Normal 6.3-8.0 [facility] Comment on above: Order Comment: Speci men Type: BLOOD SPECIMENOrdering Facility: [facility] Address: [address] [place] [address] Performed By: #### 2 4325-3 ####[facility] LABIA [id number] [place] [address] [place] Reagin and Treponema pallidu m IgG and IgM [Interp]on 02-01-2024 T. pallidum IgG+IgM IA Ql (S) Non-Reactive Normal Nonreactive [facility] Comment on above: Order Comment: Speci men Type: BLOOD SPECIMENOrdering Facility: [facility] Address: [address] [place] [address] Performed By: #### 7 3752-8 ####[facility] LABIA [id number] [place] [address] [place] Reagin+T pallidum IgG+IgM Se rPl-Impon 02-01-2024 Reagin and Treponema pallidum IgG and IgM [Interp] Cannot exclude recent Treponemal infection if specimen collected within 7-10 days after appearance of suspect lesions or 2-3 weeks after an exposure. Clinical correlation is required. Normal [facility] Comment on above: Order Comment: Speci men Type: BLOOD SPECIMENOrdering Facility: [facility] Address: [address] [place] [address] Performed By: #### 7 3752-8 ####[facility] LABIA [id number] [place] [address] [place] Basic metabolic 2000 panelon 01-27-2024 Anion gap [Moles/Vol] 15 mmol/L Normal 9-18 [facility] Comment on above: Order Comment: Speci men Type: BLOOD SPECIMENOrdering Facility: [facility] Address: [address] [place] [address] Performed By: #### 2 284-8, 11633-9, 25563-3, 2132-07 ####[facility] LABCLIA [id number] [facility] [place] [address] [place] Calcium [Mass/Vol] 9.7 mg/dL Normal 8.5-10.2 [facility] Comment on above: Order Comment: Speci men Type: BLOOD SPECIMENOrdering Facility: [facility] Address: [address] [place] [address] Performed By: #### 2 284-8, 74468-3, 13239-0, 2132-07 ####[facility] LABCLIA [id number] [place] [address] [place] Chloride [Moles/Vol] 99 mmol/L Normal 97-105 [facility] Comment on above: Order Comment: Speci men Type: BLOOD SPECIMENOrdering Facility: [facility] Address: [address] [place] [address] Performed By: #### 2 284-8, 82713-5, 32727-7, 2132-07 ####[facility] LABCLIA [id number] [place] [address] [place] CO2 [Moles/Vol] 21 mmol/L Low 22-30 [facility] Comment on above: Order Comment: Speci men Type: BLOOD SPECIMENOrdering Facility: [facility] Address: [address] [place] [address] Performed By: #### 2 284-8, 18972-9, 21150-3, 2132-07 ####[facility]CLIA [id number] [facility] [place] [address] [place] Creatinine [Mass/Vol] 1.19 mg/dL Normal 0.73-1.22 [facility] Comment on above: Order Comment: Coy haq Type: BLOOD SPECIMENOrdering Facility: [facility] Address: [address] [place] [address] Performed By: #### 2 284-8, 80552-9, 63912-6, 2132-07 ####[facility] LABCLIA [id number] [place] [address] [place] Creatinine and Glomerular filtration rate.predicted panel (S/P/Bld) 66 mL/min/1.73m??? Normal >=60 [facility] Comment on above: Order Comment: Coy haq Type: BLOOD SPECIMENOrdering Facility: [facility] Address: [address] [place] [address] Result Comment: Jessica mated Glomerular Filtration Rate (eGFR) is calculated using the 2020 CKD-EPI creatinine equation. This equation utilizes serum creatinine, sex, and age as parameters. The creatinine assay has traceable calibration to isotope dilution-mass spectrometry. Refer to KDIGO guidelines for clinical interpretation. In patients with unstable renal function, e.g. those with acute kidney injury, the eGFR may not accurately reflect actual GFR. Performed By: #### 2 284-8, 13359-4, 42488-1, 2132-07 ####[facility] LABCLIA [id number] [place] [id number] [place] Glucose [Mass/Vol] 265 mg/dL High 74-99 [facility] Comment on above: Order Comment: Coy haq Type: BLOOD SPECIMENOrdering Facility: [facility] Address: [address] [place] [address] Result Comment: The [place] Diabetes Association (ADA) provides guidance for cutoff values for fasting glucose and random glucose. The ADA defines fasting as no caloric intake for at least 8 hours. Fasting plasma glucose results between 100 to 125 mg/dL indicate increased risk for diabetes (prediabetes).Fasting plasma glucose results greater than or equal to 126 mg/dL meet the criteria for diagnosis of diabetes. In the absence of unequivocal hyperglycemia, results should be confirmed by repeat testing. In a patient with classic symptoms of hyperglycemia or hyperglycemic crisis, random plasma glucose results greater than or equal to 200 mg/dL meet the criteria for diagnosis of diabetes.Reference: Standards of Medical Care in Diabetes 2016, [place] Diabetes Association. Diabetes Care. 2016.39(Suppl 1). Performed By: #### 2 284-8, 46978-3, 30696-0, 2132-07 ####[facility] LABCLIA [id number] [place] [address] [place] Potassium [Moles/Vol] 4.7 mmol/L Normal 3.7-5.1 [facility] Comment on above: Order Comment: Speci men Type: BLOOD SPECIMENOrdering Facility: [facility] Address: [address] [place] [address] Performed By: #### 2 284-8, 03137-1, 33065-1, 2132-07 ####[facility] LABCLIA [id number] [place] [address] [place] Sodium [Moles/Vol] 135 mmol/L Low 136-144 [facility] Comment on above: Order Comment: Speci men Type: BLOOD SPECIMENOrdering Facility: [facility] Address: [address] [place] [address] Performed By: #### 2 284-8, 25474-5, 67608-6, 2132-07 ####[facility] LABCLIA [id number] [place] [address] [place] Urea nitrogen [Mass/Vol] 16 mg/dL Normal 9-24 [facility] Comment on above: Order Comment: Speci men Type: BLOOD SPECIMENOrdering Facility: [facility] Address: [address] [place] [address] Performed By: #### 2 284-8, 54474-2, 30674-9, 2132-07 ####[facility] LABCLIA [id number] [place] [id number] [place] CBC W Auto Differential pane l (Bld)on 01-27-2024 Basophils (Bld) [#/Vol] 0.08 10*3/uL Normal <0.11 [facility] Comment on above: Order Comment: Speci men Type: BLOOD SPECIMENOrdering Facility: [facility] Address: [address] [place] [address] Performed By: #### 5 7021-8, 4537-7 ####[facility] LABCLIA [id number] [facility] [place] [address] [place] Basophils/100 WBC (Bld) 0.8 % Normal [facility] Comment on above: Order Comment: Speci men Type: BLOOD SPECIMENOrdering Facility: [facility] Address: [address] [place] [address] Performed By: #### 5 7021-8, 4537-7 ####[facility] LABCLIA [id number] [place] [address] [place] Differential cell count method Nom (Bld) Auto Normal [facility] Comment on above: Order Comment: Speci men Type: BLOOD SPECIMENOrdering Facility: [facility] Address: [address] [place] [address] Performed By: #### 5 7021-8, 4537-7 ####[facility] LABCLIA [id number] [place] [address] [place] Eosinophils (Bld) [#/Vol] 0.34 10*3/uL Normal <0.46 [facility] Comment on above: Order Comment: Speci men Type: BLOOD SPECIMENOrdering Facility: [facility] Address: [address] [place] [address] Performed By: #### 5 7021-8, 4537-7 ####[facility] LABCLIA [id number] [place] [address] [place] Eosinophils/100 WBC (Bld) 3.2 % Normal [facility] Comment on above: Order Comment: Speci men Type: BLOOD SPECIMENOrdering Facility: [facility] Address: [address] [place] [address] Performed By: #### 5 7021-8, 7-7 ####[facility] LABIA [id number] [place] [address] [place] Erythrocyte distribution width (RBC) [Ratio] 16.2 % High 11.5-15.0 [facility] Comment on above: Order Comment: Speci men Type: BLOOD SPECIMENOrdering Facility: [facility] Address: [address] [place] [address] Performed By: #### 5 7021-8, 4537-7 ####[facility] LABIA [id number] [place] [address] [place] Hematocrit (Bld) [Volume fraction] 48.3 % Normal 39.0-51.0 [facility] Comment on above: Order Comment: Speci men Type: BLOOD SPECIMENOrdering Facility: [facility] Address: [address] [place] [address] Performed By: #### 5 7021-8, 7-7 ####[facility] LABIA [id number] [place] [address] [place] Hemoglobin (Bld) [Mass/Vol] 15.8 g/dL Normal 13.0-17.0 [facility] Comment on above: Order Comment: Speci men Type: BLOOD SPECIMENOrdering Facility: [facility] Address: [address] [place] [address] Performed By: #### 5 7021-8, 7-7 ####[facility] LABIA [id number] [place] [address] [place] Immature granulocytes (Bld) [#/Vol] 0.04 10*3/uL Normal <0.10 [facility] Comment on above: Order Comment: Speci men Type: BLOOD SPECIMENOrdering Facility: [facility] Address: [address] [place] [address] Performed By: #### 5 7021-8, 7-7 ####[facility] LABCLIA [id number] [place] [address] [place] Immature granulocytes/100 WBC (Bld) 0.4 % Normal [facility] Comment on above: Order Comment: Speci men Type: BLOOD SPECIMENOrdering Facility: [facility] Address: [address] [place] [address] Performed By: #### 5 7021-8, 4536-7 ####[facility] LABCLIA [id number] [place] [address] [place] Lymphocytes (Bld) [#/Vol] 1.36 10*3/uL Normal 1.00-4.00 [facility] Comment on above: Order Comment: Speci men Type: BLOOD SPECIMENOrdering Facility: [facility] Address: [address] [place] [address] Performed By: #### 5 7021-8, 4536-7 ####[facility] LABIA [id number] [place] [address] [place] Lymphocytes/100 WBC (Bld) 12.8 % Normal [facility] Comment on above: Order Comment: Speci men Type: BLOOD SPECIMENOrdering Facility: [facility] Address: [address] [place] [address] Performed By: #### 5 7021-8, 4536-7 ####[facility] LABCLIA [id number] [place] [address] [place] MCH (RBC) [Entitic mass] 28.2 pg Normal 26.0-34.0 [facility] Comment on above: Order Comment: Speci men Type: BLOOD SPECIMENOrdering Facility: [facility] Address: [address] [place] [address] Performed By: #### 5 7021-8, 7-7 ####[facility] LABCLIA [id number] [place] [address] [place] MCHC (RBC) [Mass/Vol] 32.7 g/dL Normal 30.5-36.0 [facility] Comment on above: Order Comment: Speci men Type: BLOOD SPECIMENOrdering Facility: [facility] Address: [address] [place] [address] Performed By: #### 5 7021-8, 453-7 ####[facility] LABCLIA [id number] [place] [address] [place] MCV (RBC) [Entitic vol] 86.3 fL Normal 80.0-100.0 [facility] Comment on above: Order Comment: Speci men Type: BLOOD SPECIMENOrdering Facility: [facility] Address: [address] [place] [address] Performed By: #### 5 7021-8, 453-7 ####[facility] LABCLIA [id number] [place] [address] [place] Monocytes (Bld) [#/Vol] 0.65 10*3/uL Normal <0.87 [facility] Comment on above: Order Comment: Speci men Type: BLOOD SPECIMENOrdering Facility: [facility] Address: [address] [place] [address] Performed By: #### 5 7021-8, 4536-7 ####[facility] LABCLIA [id number] [place] [address] [place] Monocytes/100 WBC (Bld) 6.1 % Normal [facility] Comment on above: Order Comment: Speci men Type: BLOOD SPECIMENOrdering Facility: [facility] Address: [address] [place] [address] Performed By: #### 5 7021-8, 4536-7 ####[facility] LABCLIA [id number] [place] [address] [place] Neutrophils (Bld) [#/Vol] 8.18 10*3/uL High 1.45-7.50 [facility] Comment on above: Order Comment: Speci men Type: BLOOD SPECIMENOrdering Facility: [facility] Address: [address] [place] [address] Performed By: #### 5 7021-8, 4536-7 ####[facility] LABCLIA [id number] [place] [address] [place] Neutrophils/100 WBC (Bld) 76.7 % Normal [facility] Comment on above: Order Comment: Speci men Type: BLOOD SPECIMENOrdering Facility: [facility] Address: [address] [place] [address] Performed By: #### 5 7021-8, 4536-7 ####[facility] LABCLIA [id number] [place] [address] [place] Nucleated RBC (Bld) [#/Vol] 10*3/uL Normal <0.01 [facility] Comment on above: Order Comment: Speci men Type: BLOOD SPECIMENOrdering Facility: [facility] Address: [address] [place] [address] Performed By: #### 5 7021-8, 4536-7 ####[facility] LABCLIA [id number] [place] [address] [place] Nucleated RBC/100 WBC (Bld) [Ratio] 0.0 /100 WBC Normal [facility] Comment on above: Order Comment: Speci men Type: BLOOD SPECIMENOrdering Facility: [facility] Address: [address] [place] [address] Performed By: #### 5 7021-8, 4536-7 ####[facility] LABCLIA [id number] [place] [address] [place] Platelet mean volume (Bld) [Entitic vol] 12.7 fL Normal 9.0-12.7 [facility] Comment on above: Order Comment: Speci men Type: BLOOD SPECIMENOrdering Facility: [facility] Address: [address] [place] [address] Performed By: #### 5 7021-8, 4537-7 ####[facility] LABIA [id number] [place] [address] [place] Platelets (Bld) [#/Vol] 264 10*3/uL Normal 150-400 [facility] Comment on above: Order Comment: Speci men Type: BLOOD SPECIMENOrdering Facility: [facility] Address: [address] [place] [address] Result Comment: Resu lts checked and verified.No clot detected. Performed By: #### 5 7021-8, 4537-7 ####[facility] LABIA [id number] [place] [address] [place] RBC (Bld) [#/Vol] 5.60 10*6/uL Normal 4.20-6.00 [facility] Comment on above: Order Comment: Speci men Type: BLOOD SPECIMENOrdering Facility: [facility] Address: [address] [place] [address] Performed By: #### 5 7021-8, 4537-7 ####[facility] LABIA [id number] [place] [address] [place] WBC (Bld) [#/Vol] 10.65 10*3/uL Normal 3.70-11.00 [facility] Comment on above: Order Comment: Speci men Type: BLOOD SPECIMENOrdering Facility: [facility] Address: [address] [place] [address] Performed By: #### 5 7021-8, 4537-7 ####[facility] LABIA [id number] [place] [address] [place] CNOVon 01-27-2024 CNOV Normal [facility] CNPNon 01-27-2024 CNPN Normal [facility] ESR Westergren method (Bld) [Velocity]on 01-27-2024 ESR (Bld) [Velocity] 16 mm/h High 0-15 [facility] Comment on above: Order Comment: Speci men Type: BLOOD SPECIMENOrdering Facility: [facility] Address: [address] [place] [address] Performed By: #### 5 7021-8, 4537-7 ####[facility] LABCLIA [id number] [place] [address] [place] Folate SerPl-mCncon 01-27-20 Folate [Mass/Vol] 9.9 ng/mL Normal >4.7 [facility] Comment on above: Order Comment: Speci men Type: BLOOD SPECIMENOrdering Facility: [facility] Address: [address] [place] [address] Performed By: #### 2 284-8, 45908-6, 82398-9, 9 ####[facility] LABCLIA [id number] [place] [address] [place] Hepatic function 2000 panelo n 01-27-2024 Albumin [Mass/Vol] 4.1 g/dL Normal 3.9-4.9 [facility] Comment on above: Order Comment: Speci men Type: BLOOD SPECIMENOrdering Facility: [facility] Address: [address] [place] [address] Performed By: #### 2 284-8, 54313-1, 24510-5, 9 ####[facility] LABCLIA [id number] [place] [address] [place] ALP [Catalytic activity/Vol] 350 U/L High 38-113 [facility] Comment on above: Order Comment: Speci men Type: BLOOD SPECIMENOrdering Facility: [facility] Address: [address] [place] [address] Performed By: #### 2 284-8, 55709-1, 64222-8, 9 ####[facility] LABCLIA [id number] [address] [address] [place] ALT [Catalytic activity/Vol] 107 U/L High 10-54 [facility] Comment on above: Order Comment: Speci men Type: BLOOD SPECIMENOrdering Facility: [facility] Address: [address] [place] [address] Performed By: #### 2 284-8, 97683-6, 73160-6, 2132-07 ####[facility] LABCLIA [id number] [place] [id number] [place] AST [Catalytic activity/Vol] 65 U/L High 14-40 [facility] Comment on above: Order Comment: Speci men Type: BLOOD SPECIMENOrdering Facility: [facility] Address: [address] [place] [address] Performed By: #### 2 284-8, 73984-1, 65489-2, 2132-07 ####[facility] LABCLIA [id number] [place] [address] [place] Bilirubin [Mass/Vol] 0.6 mg/dL Normal 0.2-1.3 [facility] Comment on above: Order Comment: Speci men Type: BLOOD SPECIMENOrdering Facility: [facility] Address: [address] [place] [address] Performed By: #### 2 284-8, 40170-2, 39372-8, 2132-07 ####[facility] LABCLIA [id number] [place] [address] [place] Bilirubin.conjugated [Mass/Vol] mg/dL Normal <0.2 [facility] Comment on above: Order Comment: Speci men Type: BLOOD SPECIMENOrdering Facility: [facility] Address: [address] [place] [address] Performed By: #### 2 284-8, 09761-6, 59246-2, 2132-07 ####[facility] LABCLIA [id number] [address] [address] [place] Protein [Mass/Vol] 7.0 g/dL Normal 6.3-8.0 [facility] Comment on above: Order Comment: Speci men Type: BLOOD SPECIMENOrdering Facility: [facility] Address: [address] [place] [address] Performed By: #### 2 284-8, 01855-5, 07045-4, 9 ####[facility] LABCLIA [id number] [address] [address] [place] Vit B12 SerPl-mCncon 024 Cobalamin (Vitamin B12) [Mass/Vol] 921 pg/mL Normal 232-1245 [facility] Comment on above: Order Comment: Speci men Type: BLOOD SPECIMENOrdering Facility: [facility] Address: [address] [place] [address] Performed By: #### 2 284-8, 37515-8, 14059-3, 2132-07 ####[facility] LABCLIA [id number] [address] [address] [place] CNPNon 01-12-2024 CNPN Normal [facility] Basic metabolic 2000 panelon 01-11-2024 Anion gap [Moles/Vol] 11 mmol/L Normal 9-18 [facility] Comment on above: Order Comment: Speci men Type: BLOOD SPECIMENOrdering Facility: [facility] Address: [address] [place] [address] Performed By: #### 2 4321-2, 63205-8, 0-3 ####[facility] LABCLIA [id number] [address] [address] [place] Calcium [Mass/Vol] 9.6 mg/dL Normal 8.5-10.2 [facility] Comment on above: Order Comment: Speci men Type: BLOOD SPECIMENOrdering Facility: [facility] Address: [address] [place] [address] Performed By: #### 2 4321-2, 32196-7, 3040-3 ####[facility] LABCLIA [id number] [address] [address] [place] Chloride [Moles/Vol] 99 mmol/L Normal 97-105 [facility] Comment on above: Order Comment: Speci men Type: BLOOD SPECIMENOrdering Facility: [facility] Address: [address] [place] [address] Performed By: #### 2 4321-2, 20539-8, 3040-3 ####[facility] LABIA [id number] [place] [address] [place] CO2 [Moles/Vol] 28 mmol/L Normal 22-30 [facility] Comment on above: Order Comment: Speci men Type: BLOOD SPECIMENOrdering Facility: [facility] Address: [address] [place] [address] Performed By: #### 2 4321-2, 26500-3, 3040-3 ####[facility] LABIA [id number] [place] [address] [place] Creatinine [Mass/Vol] 1.00 mg/dL Normal 0.73-1.22 [facility] Comment on above: Order Comment: Speci men Type: BLOOD SPECIMENOrdering Facility: [facility] Address: [address] [place] [address] Performed By: #### 2 4321-2, 20124-5, 3040-3 ####[facility] LABIA [id number] [place] [id number] [place] Creatinine and Glomerular filtration rate.predicted panel (S/P/Bld) 81 mL/min/1.73m??? Normal >=60 [facility] Comment on above: Order Comment: Speci men Type: BLOOD SPECIMENOrdering Facility: [facility] Address: [address] [place] [address] Result Comment: Jessica mated Glomerular Filtration Rate (eGFR) is calculated using the 2020 CKD-EPI creatinine equation. This equation utilizes serum creatinine, sex, and age as parameters. The creatinine assay has traceable calibration to isotope dilution-mass spectrometry. Refer to KDIGO guidelines for clinical interpretation. In patients with unstable renal function, e.g. those with acute kidney injury, the eGFR may not accurately reflect actual GFR. Performed By: #### 2 4321-2, 71187-7, 3039-3 ####[facility] LABCLIA [id number] [place] [id number] [place] Glucose [Mass/Vol] 267 mg/dL High 74-99 [facility] Comment on above: Order Comment: Speci men Type: BLOOD SPECIMENOrdering Facility: [facility] Address: [address] [place] [address] Result Comment: The [place] [employer] (ADA) provides guidance for cutoff values for fasting glucose and random glucose. The ADA defines fasting as no caloric intake for at least 8 hours. Fasting plasma glucose results between 100 to 125 mg/dL indicate increased risk for diabetes (prediabetes).Fasting plasma glucose results greater than or equal to 126 mg/dL meet the criteria for diagnosis of diabetes. In the absence of unequivocal hyperglycemia, results should be confirmed by repeat testing. In a patient with classic symptoms of hyperglycemia or hyperglycemic crisis, random plasma glucose results greater than or equal to 200 mg/dL meet the criteria for diagnosis of diabetes.Reference: Standards of Medical Care in Diabetes 2016, [place] [employer]. Diabetes Care. 2016.39(Suppl 1). Performed By: #### 2 4321-2, 11632-1, 3 ####[facility] LABIA [id number] [place] [id number] [place] Potassium [Moles/Vol] 4.0 mmol/L Normal 3.7-5.1 [facility] Comment on above: Order Comment: Coy haq Type: BLOOD SPECIMENOrdering Facility: [facility] Address: [address] [place] [address] Performed By: #### 2 4321-2, 11600-6, 3039-3 ####[facility] LABCLIA [id number] [place] [address] [place] Sodium [Moles/Vol] 138 mmol/L Normal 136-144 [facility] Comment on above: Order Comment: Speci men Type: BLOOD SPECIMENOrdering Facility: [facility] Address: [address] [place] [address] Performed By: #### 2 4321-2, 15500-6, 3040-3 ####[facility] LABCLIA [id number] [place] [address] [place] Urea nitrogen [Mass/Vol] 20 mg/dL Normal 9-24 [facility] Comment on above: Order Comment: Speci men Type: BLOOD SPECIMENOrdering Facility: [facility] Address: [address] [place] [address] Performed By: #### 2 4321-2, 13777-6, 3040-3 ####[facility] LABCLIA [id number] [place] [address] [place] CBC W Auto Differential pane l (Bld)on 01-11-2024 Basophils (Bld) [#/Vol] 0.08 10*3/uL <0.11 k/uL [facility] Basophils/100 WBC (Bld) 0.7 % [facility] Differential cell count method Nom (Bld) Auto [facility] Eosinophils (Bld) [#/Vol] 0.45 10*3/uL <0.46 k/uL [facility] Eosinophils/100 WBC (Bld) 3.7 % [facility] Erythrocyte distribution width (RBC) [Ratio] 16.4 % High 11.5 - 15.0 % [facility] Hematocrit (Bld) [Volume fraction] 45.5 % 39.0 - 51.0 % [facility] Hemoglobin (Bld) [Mass/Vol] 15.0 g/dL 13.0 - 17.0 g/dL [facility] Immature granulocytes (Bld) [#/Vol] 0.06 10*3/uL <0.10 k/uL [facility] Immature granulocytes/100 WBC (Bld) 0.5 % [facility] Lymphocytes (Bld) [#/Vol] 2.16 10*3/uL 1.00 - 4.00 k/uL [facility] Lymphocytes/100 WBC (Bld) 17.6 % [facility] MCH (RBC) [Entitic mass] 28.6 pg 26.0 - 34.0 pg [facility] MCHC (RBC) [Mass/Vol] 33.0 g/dL 30.5 - 36.0 g/dL [facility] MCV (RBC) [Entitic vol] 86.8 fL 80.0 - 100.0 fL [facility] Monocytes (Bld) [#/Vol] 0.54 10*3/uL <0.87 k/uL [facility] Monocytes/100 WBC (Bld) 4.4 % [facility] Neutrophils (Bld) [#/Vol] 8.97 10*3/uL High 1.45 - 7.50 k/uL [facility] Neutrophils/100 WBC (Bld) 73.1 % [facility] Nucleated RBC (Bld) [#/Vol] <0.01 k/uL [facility] Nucleated RBC/100 WBC (Bld) [Ratio] 0.0 /100 WBC [facility] Platelet mean volume (Bld) [Entitic vol] 12.7 fL 9.0 - 12.7 fL [facility] Platelets (Bld) [#/Vol] 328 10*3/uL 150 - 400 k/uL [facility] RBC (Bld) [#/Vol] 5.24 10*6/uL 4.20 - 6.0 0 m/uL [facility] WBC (Bld) [#/Vol] 12.26 10*3/uL High 3.70 - 11 .00 k/uL [facility] Basophils (Bld) [#/Vol] 0.08 10*3/uL Normal <0.11 [facility] Comment on above: Order Comment: Speci men Type: BLOOD SPECIMENOrdering Facility: [facility] Address: [address] [place] [address] Performed By: #### 5 7021-8 ####[facility] LABCLIA [id number] [facility] [place] [address] [place] Basophils/100 WBC (Bld) 0.7 % Normal [facility] Comment on above: Order Comment: Speci men Type: BLOOD SPECIMENOrdering Facility: [facility] Address: [address] [place] [address] Performed By: #### 5 7021-8 ####[facility] LABCLIA [id number] [place] [address] [place] Differential cell count method Nom (Bld) Auto Normal [facility] Comment on above: Order Comment: Speci men Type: BLOOD SPECIMENOrdering Facility: [facility] Address: [address] [place] [address] Performed By: #### 5 7021-8 ####[facility] LABCLIA [id number] [place] [address] [place] Eosinophils (Bld) [#/Vol] 0.45 10*3/uL Normal <0.46 [facility] Comment on above: Order Comment: Speci men Type: BLOOD SPECIMENOrdering Facility: [facility] Address: [address] [place] [address] Performed By: #### 5 7021-8 ####[facility] LABCLIA [id number] [place] [address] [place] Eosinophils/100 WBC (Bld) 3.7 % Normal [facility] Comment on above: Order Comment: Speci men Type: BLOOD SPECIMENOrdering Facility: [facility] Address: [address] [place] [address] Performed By: #### 5 7021-8 ####[facility] LABCLIA [id number] [place] [address] [place] Erythrocyte distribution width (RBC) [Ratio] 16.4 % High 11.5-15.0 [facility] Comment on above: Order Comment: Speci men Type: BLOOD SPECIMENOrdering Facility: [facility] Address: [address] [place] [address] Performed By: #### 5 7021-8 ####[facility] LABCLIA [id number] [place] [address] [place] Hematocrit (Bld) [Volume fraction] 45.5 % Normal 39.0-51.0 [facility] Comment on above: Order Comment: Speci men Type: BLOOD SPECIMENOrdering Facility: [facility] Address: [address] [place] [address] Performed By: #### 5 7021-8 ####[facility] LABIA [id number] [place] [address] [place] Hemoglobin (Bld) [Mass/Vol] 15.0 g/dL Normal 13.0-17.0 [facility] Comment on above: Order Comment: Speci men Type: BLOOD SPECIMENOrdering Facility: [facility] Address: [address] [place] [address] Performed By: #### 5 7021-8 ####[facility] LABIA [id number] [place] [address] [place] Immature granulocytes (Bld) [#/Vol] 0.06 10*3/uL Normal <0.10 [facility] Comment on above: Order Comment: Speci men Type: BLOOD SPECIMENOrdering Facility: [facility] Address: [address] [place] [address] Performed By: #### 5 7021-8 ####[facility] LABIA [id number] [place] [address] [place] Immature granulocytes/100 WBC (Bld) 0.5 % Normal [facility] Comment on above: Order Comment: Speci men Type: BLOOD SPECIMENOrdering Facility: [facility] Address: [address] [place] [address] Performed By: #### 5 7021-8 ####[facility] LABIA [id number] [place] [address] [place] Lymphocytes (Bld) [#/Vol] 2.16 10*3/uL Normal 1.00-4.00 [facility] Comment on above: Order Comment: Speci men Type: BLOOD SPECIMENOrdering Facility: [facility] Address: [address] [place] [address] Performed By: #### 5 7021-8 ####[facility] LABIA [id number] [place] [address] [place] Lymphocytes/100 WBC (Bld) 17.6 % Normal [facility] Comment on above: Order Comment: Speci men Type: BLOOD SPECIMENOrdering Facility: [facility] Address: [address] [place] [address] Performed By: #### 5 7021-8 ####[facility] LABIA [id number] [place] [address] [place] MCH (RBC) [Entitic mass] 28.6 pg Normal 26.0-34.0 [facility] Comment on above: Order Comment: Speci men Type: BLOOD SPECIMENOrdering Facility: [facility] Address: [address] [place] [address] Performed By: #### 5 7021-8 ####[facility] LABIA [id number] [place] [address] [place] MCHC (RBC) [Mass/Vol] 33.0 g/dL Normal 30.5-36.0 [facility] Comment on above: Order Comment: Speci men Type: BLOOD SPECIMENOrdering Facility: [facility] Address: [address] [place] [address] Performed By: #### 5 7021-8 ####[facility] LABIA [id number] [place] [address] [place] MCV (RBC) [Entitic vol] 86.8 fL Normal 80.0-100.0 [facility] Comment on above: Order Comment: Speci men Type: BLOOD SPECIMENOrdering Facility: [facility] Address: [address] [place] [address] Performed By: #### 5 7021-8 ####[facility] LABCLIA [id number] [place] [address] [place] Monocytes (Bld) [#/Vol] 0.54 10*3/uL Normal <0.87 [facility] Comment on above: Order Comment: Speci men Type: BLOOD SPECIMENOrdering Facility: [facility] Address: [address] [place] [address] Performed By: #### 5 7021-8 ####[facility] LABCLIA [id number] [place] [address] [place] Monocytes/100 WBC (Bld) 4.4 % Normal [facility] Comment on above: Order Comment: Speci men Type: BLOOD SPECIMENOrdering Facility: [facility] Address: [address] [place] [address] Performed By: #### 5 7021-8 ####[facility] LABCLIA [id number] [place] [address] [place] Neutrophils (Bld) [#/Vol] 8.97 10*3/uL High 1.45-7.50 [facility] Comment on above: Order Comment: Speci men Type: BLOOD SPECIMENOrdering Facility: [facility] Address: [address] [place] [address] Performed By: #### 5 7021-8 ####[facility] LABCLIA [id number] [place] [address] [place] Neutrophils/100 WBC (Bld) 73.1 % Normal [facility] Comment on above: Order Comment: Speci men Type: BLOOD SPECIMENOrdering Facility: [facility] Address: [address] [place] [address] Performed By: #### 5 7021-8 ####[facility] LABCLIA [id number] [place] [address] [place] Nucleated RBC (Bld) [#/Vol] 10*3/uL Normal <0.01 [facility] Comment on above: Order Comment: Speci men Type: BLOOD SPECIMENOrdering Facility: [facility] Address: [address] [place] [address] Performed By: #### 5 7021-8 ####[facility] LABIA [id number] [place] [address] [place] Nucleated RBC/100 WBC (Bld) [Ratio] 0.0 /100 WBC Normal [facility] Comment on above: Order Comment: Speci men Type: BLOOD SPECIMENOrdering Facility: [facility] Address: [address] [place] [address] Performed By: #### 5 7021-8 ####[facility] LABIA [id number] [place] [address] [place] Platelet mean volume (Bld) [Entitic vol] 12.7 fL Normal 9.0-12.7 [facility] Comment on above: Order Comment: Speci men Type: BLOOD SPECIMENOrdering Facility: [facility] Address: [address] [place] [address] Performed By: #### 5 7021-8 ####[facility] LABIA [id number] [place] [address] [place] Platelets (Bld) [#/Vol] 328 10*3/uL Normal 150-400 [facility] Comment on above: Order Comment: Speci men Type: BLOOD SPECIMENOrdering Facility: [facility] Address: [address] [place] [address] Performed By: #### 5 7021-8 ####[facility] LABIA [id number] [place] [address] [place] RBC (Bld) [#/Vol] 5.24 10*6/uL Normal 4.20-6.00 [facility] Comment on above: Order Comment: Speci men Type: BLOOD SPECIMENOrdering Facility: [facility] Address: [address] [place] [address] Performed By: #### 5 7021-8 ####[facility] LABIA [id number] [address] [address] [place] WBC (Bld) [#/Vol] 12.26 10*3/uL High 3.70-11.00 [facility] Comment on above: Order Comment: Speci men Type: BLOOD SPECIMENOrdering Facility: [facility] Address: [address] [place] [address] Performed By: #### 5 7021-8 ####[facility] LABIA [id number] [place] [address] [place] CNOVon 01-11-2024 CNOV Normal [facility] Hepatic function 2000 panelo n 01-11-2024 Albumin [Mass/Vol] 3.5 g/dL Low 3.9-4.9 [facility] Comment on above: Order Comment: Speci men Type: BLOOD SPECIMENOrdering Facility: [facility] Address: [address] [place] [address] Performed By: #### 2 4321-2, 51183-8, 3040-3 ####[facility] LABIA [id number] [place] [address] [place] ALP [Catalytic activity/Vol] 220 U/L High 38-113 [facility] Comment on above: Order Comment: Speci men Type: BLOOD SPECIMENOrdering Facility: [facility] Address: [address] [place], [place] [address] Performed By: #### 2 4321-2, 99236-5, 3040-3 ####[facility] LABIA [id number] [place] [id number] [place] ALT [Catalytic activity/Vol] 91 U/L High 10-54 [facility] Comment on above: Order Comment: Speci men Type: BLOOD SPECIMENOrdering Facility: [facility] Address: [address] [place] [address] Performed By: #### 2 4321-2, 01266-1, 0-3 ####[facility] LABCLIA [id number] [address] [address] [place] AST [Catalytic activity/Vol] 49 U/L High 14-40 [facility] Comment on above: Order Comment: Speci men Type: BLOOD SPECIMENOrdering Facility: [facility] Address: [address] [place] [address] Performed By: #### 2 4321-2, 26516-5, 3039-3 ####[facility] LABIA [id number] [place] [address] [place] Bilirubin [Mass/Vol] 0.6 mg/dL Normal 0.2-1.3 [facility] Comment on above: Order Comment: Speci men Type: BLOOD SPECIMENOrdering Facility: [facility] Address: [address] [place] [address] Performed By: #### 2 4321-2, 19053-4, 3039-3 ####[facility] LABIA [id number] [place] [address] [place] Bilirubin.conjugated [Mass/Vol] 0.2 mg/dL High <0.2 [facility] Comment on above: Order Comment: Speci men Type: BLOOD SPECIMENOrdering Facility: [facility] Address: [address] [place] [address] Performed By: #### 2 4321-2, 74149-3, 3039-3 ####[facility] LABIA [id number] [place] [id number] [place] Protein [Mass/Vol] 7.1 g/dL Normal 6.3-8.0 [facility] Comment on above: Order Comment: Speci men Type: BLOOD SPECIMENOrdering Facility: [facility] Address: [address] [place] [address] Performed By: #### 2 4321-2, 06830-2, 3040-3 ####[facility] LABCLIA [id number] [place] [address] [place] Lipase SerPl-cCncon 01-11-20 24 Lipase [Catalytic activity/Vol] 56 U/L Normal 16-61 [facility] Comment on above: Order Comment: Speci men Type: BLOOD SPECIMENOrdering Facility: [facility] Address: [address] [place] [address] Performed By: #### 2 4321-2, 77322-6, 3040-3 ####[facility] LABCLIA [id number] [place] [address] [place] CNPNon 12-21-2023 CNPN Normal [facility] ALKALINE PHOSPHATASE ISOENZY MES (P)on 12-16-2023 ALK PHOS BONE % 21.2 % Normal 10.7-68.3 [facility] Comment on above: Order Comment: Speci men Type: BLOOD SPECIMENOrdering Facility: [facility] Address: [address] [place] [address] Performed By: #### A LKISOP ####[facility] LABCLIA [id number] [place] [address] [place] ALK PHOS LIVER % 78.8 % Normal 26.0-86.2 [facility] Comment on above: Order Comment: Speci men Type: BLOOD SPECIMENOrdering Facility: [facility] Address: [address] [place] [address] Performed By: #### A LKISOP ####[facility] LABCLIA [id number] [place] [address] [place] BONE FRACTION 46.9 U/L Normal 12.9-52.6 [facility] Comment on above: Order Comment: Speci men Type: BLOOD SPECIMENOrdering Facility: [facility] Address: [address] [place] [address] Performed By: #### A LKISOP ####[facility] LABCLIA [id number] [place] [address] [place] INTESTINE FRACTION 0.0 U/L Normal 0.0-16.3 [facility] Comment on above: Order Comment: Speci men Type: BLOOD SPECIMENOrdering Facility: [facility] Address: [address] [place] [address] Performed By: #### A LKISOP ####[facility] LABCLIA [id number] [place] [address] [place] LIVER FRACTION 174.1 U/L High 16.0-69.3 [facility] Comment on above: Order Comment: Speci men Type: BLOOD SPECIMENOrdering Facility: [facility] Address: [address] [place] [address] Performed By: #### A LKISOP ####[facility] LABIA [id number] [place] [address] [place] Neutrophils/100 WBC (Bld) 0.0 % Normal 0.0-24.2 [facility] Comment on above: Order Comment: Speci men Type: BLOOD SPECIMENOrdering Facility: [facility] Address: [address] [place] [address] Performed By: #### A LKISOP ####[facility] LABIA [id number] [place] [address] [place] Hep Func 2000 Pnl SerPlon ALP [Catalytic activity/Vol] 221 U/L High 38-113 [facility] Comment on above: Order Comment: Speci men Type: BLOOD SPECIMENOrdering Facility: [facility] Address: [address] [place] [address] Performed By: #### 2 4325-3, 6768-6, 3040-3 ####[facility] LABCLIA [id number] [place] [address] [place] Hepatic function 2000 panelo n 12-16-2023 Albumin [Mass/Vol] 3.7 g/dL Low 3.9-4.9 [facility] Comment on above: Order Comment: Speci men Type: BLOOD SPECIMENOrdering Facility: [facility] Address: [address] [place] [address] Performed By: #### 2 4325-3, 6768-6, 3040-3 ####[facility] LABCLIA [id number] [place] [address] [place] ALT [Catalytic activity/Vol] 114 U/L High 10-54 [facility] Comment on above: Order Comment: Speci men Type: BLOOD SPECIMENOrdering Facility: [facility] Address: [address] [place] [address] Performed By: #### 2 4325-3, 6768-6, 3040-3 ####[facility] LABCLIA [id number] [place] [address] [place] AST [Catalytic activity/Vol] 53 U/L High 14-40 [facility] Comment on above: Order Comment: Speci men Type: BLOOD SPECIMENOrdering Facility: [facility] Address: [address] [place] [address] Performed By: #### 2 4325-3, 6768-6, 3040-3 ####[facility] LABCLIA [id number] [place] [address] [place] Bilirubin [Mass/Vol] 0.5 mg/dL Normal 0.2-1.3 [facility] Comment on above: Order Comment: Speci men Type: BLOOD SPECIMENOrdering Facility: [facility] Address: [address] [place] [address] Performed By: #### 2 4325-3, 6768-6, 3040-3 ####[facility] LABCLIA [id number] [facility] [address] [address] [place] Bilirubin.conjugated [Mass/Vol] 0.2 mg/dL High <0.2 [facility] Comment on above: Order Comment: Speci men Type: BLOOD SPECIMENOrdering Facility: [facility] Address: [address] [place] [address] Performed By: #### 2 4325-3, 6768-6, 3040-3 ####[facility] LABCLIA [id number] [place] [address] [place] Protein [Mass/Vol] 7.2 g/dL Normal 6.3-8.0 [facility] Comment on above: Order Comment: Speci men Type: BLOOD SPECIMENOrdering Facility: [facility] Address: [address] [place] [address] Performed By: #### 2 4325-3, 6768-6, 3039-3 ####[facility] LABCLIA [id number] [place] [address] [place] Lipase SerPl-cCncon 12-16-19 24 Lipase [Catalytic activity/Vol] 145 U/L High 16-61 [facility] Comment on above: Order Comment: Speci men Type: BLOOD SPECIMENOrdering Facility: [facility] Address: [address] [place] [address] Performed By: #### 2 4325-3, 6768-6, 3040-3 ####[facility] LABIA [id number] [place] [address] [place] CNPNon 12-15-2023 CNPN Normal [facility] CNPNon 12-14-2023 CNPN Normal [facility] Bacteria Ur Culton Bacteria identified Cx Nom (U) ORGANISM ID: 1 10,000 -<50,000 CFU/ml Normal urogenital callie Normal [facility] Comment on above: Performed By: #### 6 30-4 ####[facility] LABCLIA [id number] [place] [address] [place] CBC W Auto Differential pane l (Bld)on 12-13-2023 Basophils (Bld) [#/Vol] 0.06 10*3/uL Normal <0.11 [facility] Comment on above: Order Comment: Speci men Type: BLOOD SPECIMENOrdering Facility: [facility] Address: [address] [place] [address] Performed By: #### 5 7021-8 ####[facility] LABCLIA [id number] [place] [address] [place] Basophils/100 WBC (Bld) 0.7 % Normal [facility] Comment on above: Order Comment: Speci men Type: BLOOD SPECIMENOrdering Facility: [facility] Address: [address] [place] [address] Performed By: #### 5 7021-8 ####[facility] LABCLIA [id number] [place] [address] [place] Differential cell count method Nom (Bld) Auto Normal [facility] Comment on above: Order Comment: Speci men Type: BLOOD SPECIMENOrdering Facility: [facility] Address: [address] [place] [address] Performed By: #### 5 7021-8 ####[facility] LABCLIA [id number] [place] [address] [place] Eosinophils (Bld) [#/Vol] 0.21 10*3/uL Normal <0.46 [facility] Comment on above: Order Comment: Speci men Type: BLOOD SPECIMENOrdering Facility: [facility] Address: [address] [place] [address] Performed By: #### 5 7021-8 ####[facility] LABCLIA [id number] [place] [address] [place] Eosinophils/100 WBC (Bld) 2.5 % Normal [facility] Comment on above: Order Comment: Speci men Type: BLOOD SPECIMENOrdering Facility: [facility] Address: [address] [place] [address] Performed By: #### 5 7021-8 ####[facility] LABIA [id number] [place] [address] [place] Erythrocyte distribution width (RBC) [Ratio] 16.1 % High 11.5-15.0 [facility] Comment on above: Order Comment: Speci men Type: BLOOD SPECIMENOrdering Facility: [facility] Address: [address] [place] [address] Performed By: #### 5 7021-8 ####[facility] LABIA [id number] [place] [address] [place] Hematocrit (Bld) [Volume fraction] 46.1 % Normal 39.0-51.0 [facility] Comment on above: Order Comment: Speci men Type: BLOOD SPECIMENOrdering Facility: [facility] Address: [address] [place] [address] Performed By: #### 5 7021-8 ####[facility] LABIA [id number] [place] [address] [place] Hemoglobin (Bld) [Mass/Vol] 14.6 g/dL Normal 13.0-17.0 [facility] Comment on above: Order Comment: Speci men Type: BLOOD SPECIMENOrdering Facility: [facility] Address: [address] [place] [address] Performed By: #### 5 7021-8 ####[facility] LABIA [id number] [place] [address] [place] Immature granulocytes (Bld) [#/Vol] 0.03 10*3/uL Normal <0.10 [facility] Comment on above: Order Comment: Speci men Type: BLOOD SPECIMENOrdering Facility: [facility] Address: [address] [place] [address] Performed By: #### 5 7021-8 ####[facility] LABIA [id number] [place] [address] [place] Immature granulocytes/100 WBC (Bld) 0.4 % Normal [facility] Comment on above: Order Comment: Speci men Type: BLOOD SPECIMENOrdering Facility: [facility] Address: [address] [place] [address] Performed By: #### 5 7021-8 ####[facility] LABCLIA [id number] [place] [address] [place] Lymphocytes (Bld) [#/Vol] 1.22 10*3/uL Normal 1.00-4.00 [facility] Comment on above: Order Comment: Speci men Type: BLOOD SPECIMENOrdering Facility: [facility] Address: [address] [place] [address] Performed By: #### 5 7021-8 ####[facility] LABCLIA [id number] [place] [address] [place] Lymphocytes/100 WBC (Bld) 14.6 % Normal [facility] Comment on above: Order Comment: Speci men Type: BLOOD SPECIMENOrdering Facility: [facility] Address: [address] [place] [address] Performed By: #### 5 7021-8 ####[facility] LABCLIA [id number] [place] [address] [place] MCH (RBC) [Entitic mass] 27.5 pg Normal 26.0-34.0 [facility] Comment on above: Order Comment: Speci men Type: BLOOD SPECIMENOrdering Facility: [facility] Address: [address] [place] [address] Performed By: #### 5 7021-8 ####[facility] LABCLIA [id number] [place] [address] [place] MCHC (RBC) [Mass/Vol] 31.7 g/dL Normal 30.5-36.0 [facility] Comment on above: Order Comment: Speci men Type: BLOOD SPECIMENOrdering Facility: [facility] Address: [address] [place] [address] Performed By: #### 5 7021-8 ####[facility] LABCLIA [id number] [place] [address] [place] MCV (RBC) [Entitic vol] 87.0 fL Normal 80.0-100.0 [facility] Comment on above: Order Comment: Speci men Type: BLOOD SPECIMENOrdering Facility: [facility] Address: [address] [place] [address] Performed By: #### 5 7021-8 ####[facility] LABCLIA [id number] [place] [address] [place] Monocytes (Bld) [#/Vol] 0.68 10*3/uL Normal <0.87 [facility] Comment on above: Order Comment: Speci men Type: BLOOD SPECIMENOrdering Facility: [facility] Address: [address] [place] [address] Performed By: #### 5 7021-8 ####[facility] LABIA [id number] [place] [address] [place] Monocytes/100 WBC (Bld) 8.2 % Normal [facility] Comment on above: Order Comment: Speci men Type: BLOOD SPECIMENOrdering Facility: [facility] Address: [address] [place] [address] Performed By: #### 5 7021-8 ####[facility] LABCLIA [id number] [place] [address] [place] Neutrophils (Bld) [#/Vol] 6.14 10*3/uL Normal 1.45-7.50 [facility] Comment on above: Order Comment: Speci men Type: BLOOD SPECIMENOrdering Facility: [facility] Address: [address] [place] [address] Performed By: #### 5 7021-8 ####[facility] LABCLIA [id number] [place] [address] [place] Neutrophils/100 WBC (Bld) 73.6 % Normal [facility] Comment on above: Order Comment: Speci men Type: BLOOD SPECIMENOrdering Facility: [facility] Address: [address] [place] [address] Performed By: #### 5 7021-8 ####[facility] LABCLIA [id number] [place] [address] [place] Nucleated RBC (Bld) [#/Vol] 10*3/uL Normal <0.01 [facility] Comment on above: Order Comment: Speci men Type: BLOOD SPECIMENOrdering Facility: [facility] Address: [address] [place] [address] Performed By: #### 5 7021-8 ####[facility] LABCLIA [id number] [place] [address] [place] Nucleated RBC/100 WBC (Bld) [Ratio] 0.0 /100 WBC Normal [facility] Comment on above: Order Comment: Speci men Type: BLOOD SPECIMENOrdering Facility: [facility] Address: [address] [place] [address] Performed By: #### 5 7021-8 ####[facility] LABCLIA [id number] [place] [address] [place] Platelet mean volume (Bld) [Entitic vol] 12.7 fL Normal 9.0-12.7 [facility] Comment on above: Order Comment: Speci men Type: BLOOD SPECIMENOrdering Facility: [facility] Address: [address] [place] [address] Performed By: #### 5 7021-8 ####[facility] LABCLIA [id number] [place] [address] [place] Platelets (Bld) [#/Vol] 230 10*3/uL Normal 150-400 [facility] Comment on above: Order Comment: Speci men Type: BLOOD SPECIMENOrdering Facility: [facility] Address: [address] [place] [address] Performed By: #### 5 7021-8 ####[facility] LABIA [id number] [place] [address] [place] RBC (Bld) [#/Vol] 5.30 10*6/uL Normal 4.20-6.00 [facility] Comment on above: Order Comment: Speci men Type: BLOOD SPECIMENOrdering Facility: [facility] Address: [address] [place] [address] Performed By: #### 5 7021-8 ####[facility] [id number] [place] [address] [place] WBC (Bld) [#/Vol] 8.34 10*3/uL Normal 3.70-11.00 [facility] Comment on above: Order Comment: Speci men Type: BLOOD SPECIMENOrdering Facility: [facility] Address: [address] [place] [address] Performed By: #### 5 7021-8 ####[facility] LABIA [id number] [place] [address] [place] CNOVon 12-13-2023 CNOV Normal [facility] Comprehensive metabolic 2000 panelon 12-13-2023 Albumin [Mass/Vol] 3.9 g/dL Normal 3.9-4.9 [facility] Comment on above: Order Comment: Speci men Type: BLOOD SPECIMENOrdering Facility: [facility] Address: [address] [place] [address] Performed By: #### 2 4323-8 ####[facility] [id number] [place] [address] [place] ALP [Catalytic activity/Vol] 290 U/L High 38-113 [facility] Comment on above: Order Comment: Speci men Type: BLOOD SPECIMENOrdering Facility: [facility] Address: [address] [place] [address] Performed By: #### 2 4323-8 ####[facility] LABCLIA [id number] [place] [address] [place] ALT [Catalytic activity/Vol] 250 U/L High 10-54 [facility] Comment on above: Order Comment: Speci men Type: BLOOD SPECIMENOrdering Facility: [facility] Address: [address] [place] [address] Performed By: #### 2 4323-8 ####[facility] LABCLIA [id number] [place] [address] [place] Anion gap [Moles/Vol] 13 mmol/L Normal 9-18 [facility] Comment on above: Order Comment: Speci men Type: BLOOD SPECIMENOrdering Facility: [facility] Address: [address] [place] [address] Performed By: #### 2 4323-8 ####[facility] LABCLIA [id number] [place] [address] [place] AST [Catalytic activity/Vol] 148 U/L High 14-40 [facility] Comment on above: Order Comment: Speci men Type: BLOOD SPECIMENOrdering Facility: [facility] Address: [address] [place] [address] Performed By: #### 2 4323-8 ####[facility] LABCLIA [id number] [place] [address] [place] Bilirubin [Mass/Vol] 1.3 mg/dL Normal 0.2-1.3 [facility] Comment on above: Order Comment: Speci men Type: BLOOD SPECIMENOrdering Facility: [facility] Address: [address] [place] [address] Performed By: #### 2 4323-8 ####[facility] LABCLIA [id number] [place] [address] [place] Calcium [Mass/Vol] 9.7 mg/dL Normal 8.5-10.2 [facility] Comment on above: Order Comment: Speci men Type: BLOOD SPECIMENOrdering Facility: [facility] Address: [address] [place] [address] Performed By: #### 2 4323-8 ####[facility] LABCLIA [id number] [place] [address] [place] Chloride [Moles/Vol] 101 mmol/L Normal 97-105 [facility] Comment on above: Order Comment: Speci men Type: BLOOD SPECIMENOrdering Facility: [facility] Address: [address] [place] [address] Performed By: #### 2 4323-8 ####[facility] [facility] LABCLIA [id number] [place] [address] [place] CO2 [Moles/Vol] 25 mmol/L Normal 22-30 [facility] Comment on above: Order Comment: Speci men Type: BLOOD SPECIMENOrdering Facility: [facility] Address: [address] [place] [address] Performed By: #### 2 4323-8 ####[facility] LABCLIA [id number] [place] [address] [place] Creatinine [Mass/Vol] 1.08 mg/dL Normal 0.73-1.22 [facility] Comment on above: Order Comment: Speci men Type: BLOOD SPECIMENOrdering Facility: [facility] Address: [address] [place] [address] Performed By: #### 2 4323-8 ####[facility] LABCLIA [id number] [place] [address] [place] Creatinine and Glomerular filtration rate.predicted panel (S/P/Bld) 74 mL/min/1.73m??? Normal >=60 [facility] Comment on above: Order Comment: Speci men Type: BLOOD SPECIMENOrdering Facility: [facility] Address: [address] [place] [address] Result Comment: Jessica mated Glomerular Filtration Rate (eGFR) is calculated using the 2020 CKD-EPI creatinine equation. This equation utilizes serum creatinine, sex, and age as parameters. The creatinine assay has traceable calibration to isotope dilution-mass spectrometry. Refer to KDIGO guidelines for clinical interpretation. In patients with unstable renal function, e.g. those with acute kidney injury, the eGFR may not accurately reflect actual GFR. Performed By: #### 2 4323-8 ####[facility] LABCLIA [id number] [place] [address] [place] Glucose [Mass/Vol] 76 mg/dL Normal 74-99 [facility] Comment on above: Order Comment: Specyasemin haq Type: BLOOD SPECIMENOrdering Facility: [facility] Address: [address] [place] [address] Result Comment: The [place] Diabetes [employer] (ADA) provides guidance for cutoff values for fasting glucose and random glucose. The ADA defines fasting as no caloric intake for at least 8 hours. Fasting plasma glucose results between 100 to 125 mg/dL indicate increased risk for diabetes (prediabetes).Fasting plasma glucose results greater than or equal to 126 mg/dL meet the criteria for diagnosis of diabetes. In the absence of unequivocal hyperglycemia, results should be confirmed by repeat testing. In a patient with classic symptoms of hyperglycemia or hyperglycemic crisis, random plasma glucose results greater than or equal to 200 mg/dL meet the criteria for diagnosis of diabetes.Reference: Standards of Medical Care in Diabetes 2016, [place] [employer]. Diabetes Care. 2016.39(Suppl 1). Performed By: #### 2 4323-8 ####[facility] LABCLIA [id number] [place] [address] [place] Potassium [Moles/Vol] 4.3 mmol/L Normal 3.7-5.1 [facility] Comment on above: Order Comment: Coy haq Type: BLOOD SPECIMENOrdering Facility: [facility] Address: [address] [place] [address] Performed By: #### 2 4323-8 ####[facility] LABCLIA [id number] [place] [address] [place] Protein [Mass/Vol] 7.3 g/dL Normal 6.3-8.0 [facility] Comment on above: Order Comment: Speci men Type: BLOOD SPECIMENOrdering Facility: [facility] Address: [address] [place] [address] Performed By: #### 2 4323-8 ####[facility] LABCLIA [id number] [place] [address] [place] Sodium [Moles/Vol] 139 mmol/L Normal 136-144 [facility] Comment on above: Order Comment: Speci men Type: BLOOD SPECIMENOrdering Facility: [facility] Address: [address] [place] [address] Performed By: #### 2 4323-8 ####[facility] LABCLIA [id number] [place] [address] [place] Urea nitrogen [Mass/Vol] 14 mg/dL Normal 9-24 [facility] Comment on above: Order Comment: Speci men Type: BLOOD SPECIMENOrdering Facility: [facility] Address: [address] [place] [address] Performed By: #### 2 4323-8 ####[facility] LABCLIA [id number] [place] [address] [place] Urinalysis complete panel (U )on 12-13-2023 Bacteria LM.HPF (Urine sed) [#/Area] Negative Normal Negative [facility] Comment on above: Order Comment: Speci men Type: URINE SPECIMENOrdering Facility: [facility] Address: [address] [place] [address] Performed By: #### 2 4356-8 ####[facility] LABCLIA [id number] [place] [address] [place] Bilirubin Ql (U) 1+ Abnormal Negative [facility] Comment on above: Order Comment: Speci men Type: URINE SPECIMENOrdering Facility: [facility] Address: [address] [place] [address] Result Comment: Sugg est correlation with clinical findings and serum bilirubin if clinically indicated. Performed By: #### 2 4356-8 ####[facility] LABCLIA [id number] [place] [address] [place] Clarity (Unsp spec) Clear Normal Clear [facility] Comment on above: Order Comment: Speci men Type: URINE SPECIMENOrdering Facility: [facility] Address: [address] [place] [address] Performed By: #### 2 4356-8 ####[facility] LABCLIA [id number] [address] [place] Color (U) Dark Yellow Abnormal Yellow [facility] Comment on above: Order Comment: Speci men Type: URINE SPECIMENOrdering Facility: [facility] Address: [address] [place] [address] Performed By: #### 2 4356-8 ####[facility] LABCLIA [id number] [place] [address] [place] Epithelial cells LM.HPF (Urine sed) [#/Area] None Seen Normal [facility] Comment on above: Order Comment: Speci men Type: URINE SPECIMENOrdering Facility: [facility] Address: [address] [place] [address] Performed By: #### 2 4356-8 ####[facility] LABCLIA [id number] [place] [address] [place] Glucose Test strip (U) [Mass/Vol] Negative Normal Negative [facility] Comment on above: Order Comment: Speci men Type: URINE SPECIMENOrdering Facility: [facility] Address: [address] [place] [address] Performed By: #### 2 4356-8 ####[facility] LABCLIA [id number] [place] [address] [place] Hemoglobin Ql (U) Negative Normal Negative [facility] Comment on above: Order Comment: Speci men Type: URINE SPECIMENOrdering Facility: [facility] Address: [address] [place] [address] Performed By: #### 2 4356-8 ####[facility] LABCLIA [id number] [place] [address] [place] Hyaline casts (Urine sed) [#/Area] 0 /[LPF] Normal 0 /LPF [facility] Comment on above: Order Comment: Speci men Type: URINE SPECIMENOrdering Facility: [facility] Address: [address] [place] [address] Performed By: #### 2 4356-8 ####[facility] LABCLIA [id number] [place] [address] [place] Ketones Ql (U) Negative Normal Negative [facility] Comment on above: Order Comment: Speci men Type: URINE SPECIMENOrdering Facility: [facility] Address: [address] [place] [address] Performed By: #### 2 4356-8 ####[facility] LABCLIA [id number] [place] [address] [place] Leukocyte esterase Test strip Ql (U) Trace Abnormal Negative [facility] Comment on above: Order Comment: Speci men Type: URINE SPECIMENOrdering Facility: [facility] Address: [address] [place] [address] Performed By: #### 2 4356-8 ####[facility] LABCLIA [id number] [place] [address] [place] Nitrite Ql (U) Negative Normal Negative [facility] Comment on above: Order Comment: Speci men Type: URINE SPECIMENOrdering Facility: [facility] Address: [address] [place] [address] Performed By: #### 2 4356-8 ####[facility] LABCLIA [id number] [place] [address] [place] pH (U) 5.5 [pH] Normal <8.5 [facility] Comment on above: Order Comment: Speci men Type: URINE SPECIMENOrdering Facility: [facility] Address: [address] [place] [address] Performed By: #### 2 4356-8 ####[facility] LABIA [id number] [place] [address] [place] Protein (U) [Mass/Vol] Negative Normal Negative [facility] Comment on above: Order Comment: Speci men Type: URINE SPECIMENOrdering Facility: [facility] Address: [address] [place] [address] Performed By: #### 2 4356-8 ####[facility] [id number] [place] [address] [place] RBC LM.HPF (Urine sed) [#/Area] 3-5 /HPF Abnormal 0-2 /HPF [facility] Comment on above: Order Comment: Speci men Type: URINE SPECIMENOrdering Facility: [facility] Address: [address] [place] [address] Performed By: #### 2 4356-8 ####[facility] [id number] [place] [address] [place] Specific gravity (U) [Rel density] 1.015 Normal 1.005-1.030 [facility] Comment on above: Order Comment: Speci men Type: URINE SPECIMENOrdering Facility: [facility] Address: [address] [place] [address] Performed By: #### 2 4356-8 ####[facility] LABIA [id number] [place] [address] [place] Urobilinogen Ql (U) 1.0 EU/dL Normal 0.2-1.0 EU/dL [facility] Comment on above: Order Comment: Speci men Type: URINE SPECIMENOrdering Facility: [facility] Address: [address] [place] [address] Performed By: #### 2 4356-8 ####[facility] LABCLIA [id number] [place] [address] [place] WBC LM.HPF (Urine sed) [#/Area] 0-5 /HPF Normal 0-5 /HPF [facility] Comment on above: Order Comment: Speci men Type: URINE SPECIMENOrdering Facility: [facility] Address: [address] [place] [address] Performed By: #### 2 4356-8 ####[facility] LABIA [id number] [place] [address] [place] ALBUMIN/CREAT RATIO RND URon 11-11-2023 Albumin DL <= 20 mg/L (U) [Mass/Vol] 16.9 mg/L Normal [facility] Comment on above: Order Comment: Speci men Type: URINE SPECIMENOrdering Facility: [facility] Address: [address] [place] [address] Performed By: #### U ACR ####[facility] LABIA [id number] [place] [address] [place] Albumin/Creatinine (U) [Mass ratio] 12 mg/g Normal <30 [facility] Comment on above: Order Comment: Speci men Type: URINE SPECIMENOrdering Facility: [facility] Address: [address] [place] [address] Result Comment: Adul t Male and Female Nephrotic Criteria:<30 mg/g is considered normal to mildly vueyohicd46-529 mg/g is considered moderately increased>300 mg/g is considered severely increasedKDIGO. (2013). KDIGO 2012 Clinical Practice Guideline for the Evaluation and Management of Chronic Kidney Disease. Official Journal of the International Society of Nephrology, 3(1), 1-150. Performed By: #### U ACR ####[facility] LABCLIA [id number] [place] [address] [place] Creatinine (U) [Mass/Vol] 146.6 mg/dL Normal 20.0-300.0 [facility] Comment on above: Order Comment: Speci men Type: URINE SPECIMENOrdering Facility: [facility] Address: [address] [place] [address] Performed By: #### U ACR ####[facility] LABCLIA [id number] [place] [address] [place] Bacteria Ur Culton 3 Bacteria identified Cx Nom (U) CULTURE, URINE: No growth (<1,000 CFU/ml) Normal [facility] Comment on above: Performed By: #### 6 30-4 ####[facility] LABCLIA [id number] [address] [place] Urinalysis complete panel (U )on 11-11-2023 Bacteria LM.HPF (Urine sed) [#/Area] Negative Normal Negative [facility] Comment on above: Order Comment: Speci men Type: URINE SPECIMENOrdering Facility: [facility] Address: [address] [place] [address] Performed By: #### 2 4356-8 ####[facility] LABCLIA [id number] [place] [address] [place] Bilirubin Ql (U) Negative Normal Negative [facility] Comment on above: Order Comment: Speci men Type: URINE SPECIMENOrdering Facility: [facility] Address: [address] [place] [address] Performed By: #### 2 4356-8 ####[facility] LABCLIA [id number] [place] [address] [place] Clarity (Unsp spec) Clear Normal Clear [facility] Comment on above: Order Comment: Speci men Type: URINE SPECIMENOrdering Facility: [facility] Address: [address] [place] [address] Performed By: #### 2 4356-8 ####[facility] LABCLIA [id number] [place] [address] [place] Color (U) Yellow Normal Yellow [facility] Comment on above: Order Comment: Speci men Type: URINE SPECIMENOrdering Facility: [facility] Address: [address] [place] [address] Performed By: #### 2 4356-8 ####[facility] LABCLIA [id number] [place] [address] [place] Epithelial cells LM.HPF (Urine sed) [#/Area] None Seen Normal [facility] Comment on above: Order Comment: Speci men Type: URINE SPECIMENOrdering Facility: [facility] Address: [address] [place] [address] Performed By: #### 2 4356-8 ####[facility] LABCLIA [id number] [place] [address] [place] Glucose Test strip (U) [Mass/Vol] Trace Abnormal Negative [facility] Comment on above: Order Comment: Speci men Type: URINE SPECIMENOrdering Facility: [facility] Address: [address] [place] [address] Performed By: #### 2 4356-8 ####[facility] LABCLIA [id number] [place] [address] [place] Hemoglobin Ql (U) Negative Normal Negative [facility] Comment on above: Order Comment: Speci men Type: URINE SPECIMENOrdering Facility: [facility] Address: [address] [place] [address] Performed By: #### 2 4356-8 ####[facility] LABCLIA [id number] [place] [address] [place] Hyaline casts (Urine sed) [#/Area] 0 /[LPF] Normal 0 /LPF [facility] Comment on above: Order Comment: Speci men Type: URINE SPECIMENOrdering Facility: [facility] Address: [address] [place] [address] Performed By: #### 2 4356-8 ####[facility] LABCLIA [id number] [place] [address] [place] Ketones Ql (U) Negative Normal Negative [facility] Comment on above: Order Comment: Speci men Type: URINE SPECIMENOrdering Facility: [facility] Address: [address] [place] [address] Performed By: #### 2 4356-8 ####[facility] LABCLIA [id number] [place] [address] [place] Leukocyte esterase Test strip Ql (U) Negative Normal Negative [facility] Comment on above: Order Comment: Speci men Type: URINE SPECIMENOrdering Facility: [facility] Address: [address] [place] [address] Performed By: #### 2 4356-8 ####[facility] LABCLIA [id number] [place] [address] [place] Nitrite Ql (U) Negative Normal Negative [facility] Comment on above: Order Comment: Speci men Type: URINE SPECIMENOrdering Facility: [facility] Address: [address] [place] [address] Performed By: #### 2 4356-8 ####[facility] LABCLIA [id number] [place] [address] [place] pH (U) 6.0 [pH] Normal <8.5 [facility] Comment on above: Order Comment: Speci men Type: URINE SPECIMENOrdering Facility: [facility] Address: [address] [place] [address] Performed By: #### 2 4356-8 ####[facility] LABCLIA [id number] [place] [address] [place] Protein (U) [Mass/Vol] Trace Abnormal Negative [facility] Comment on above: Order Comment: Speci men Type: URINE SPECIMENOrdering Facility: [facility] Address: [address] [place] [address] Performed By: #### 2 4356-8 ####[facility] [id number] [place] [address] [place] RBC LM.HPF (Urine sed) [#/Area] 0-2 /HPF Normal 0-2 /HPF [facility] Comment on above: Order Comment: Speci men Type: URINE SPECIMENOrdering Facility: [facility] Address: [address] [place] [address] Performed By: #### 2 4356-8 ####[facility] [id number] [place] [address] [place] Specific gravity (U) [Rel density] 1.019 Normal 1.005-1.030 [facility] Comment on above: Order Comment: Speci men Type: URINE SPECIMENOrdering Facility: [facility] Address: [address] [place] [address] Performed By: #### 2 4356-8 ####[facility] [id number] [place] [address] [place] Urobilinogen Ql (U) 0.2 EU/dL Normal 0.2-1.0 EU/dL [facility] Comment on above: Order Comment: Speci men Type: URINE SPECIMENOrdering Facility: [facility] Address: [address] [place] [address] Performed By: #### 2 4356-8 ####[facility] [id number] [place] [address] [place] WBC LM.HPF (Urine sed) [#/Area] 0-5 /HPF Normal 0-5 /HPF [facility] Comment on above: Order Comment: Speci men Type: URINE SPECIMENOrdering Facility: [facility] Address: [address] [place] [address] Performed By: #### 2 4356-8 ####[facility] LABCLIA [id number] [place] [address] [place] CNCOon 11-07-2023 CNCO Letter Text Normal [facility] CNOVon 11-07-2023 CNOV Normal [facility] CBC W Auto Differential pane l (Bld)on 10-29-2023 Basophils (Bld) [#/Vol] 0.08 10*3/uL Normal <0.11 [facility] Comment on above: Order Comment: Speci men Type: BLOOD SPECIMENOrdering Facility: [facility] Address: [address] [place] [address] Performed By: #### 5 7021-8 ####[facility] LABCLIA [id number] [place] [address] [place] Basophils/100 WBC (Bld) 0.6 % Normal [facility] Comment on above: Order Comment: Speci men Type: BLOOD SPECIMENOrdering Facility: [facility] Address: [address] [place] [address] Performed By: #### 5 7021-8 ####[facility] LABCLIA [id number] [place] [address] [place] Differential cell count method Nom (Bld) Auto Normal [facility] Comment on above: Order Comment: Speci men Type: BLOOD SPECIMENOrdering Facility: [facility] Address: [address] [place] [address] Performed By: #### 5 7021-8 ####[facility] LABCLIA [id number] [place] [address] [place] Eosinophils (Bld) [#/Vol] 0.43 10*3/uL Normal <0.46 [facility] Comment on above: Order Comment: Speci men Type: BLOOD SPECIMENOrdering Facility: [facility] Address: [address] [place] [address] Performed By: #### 5 7021-8 ####[facility] LABCLIA [id number] [place] [address] [place] Eosinophils/100 WBC (Bld) 3.3 % Normal [facility] Comment on above: Order Comment: Speci men Type: BLOOD SPECIMENOrdering Facility: [facility] Address: [address] [place] [address] Performed By: #### 5 7021-8 ####[facility] LABCLIA [id number] [place] [address] [place] Erythrocyte distribution width (RBC) [Ratio] 13.4 % Normal 11.5-15.0 [facility] Comment on above: Order Comment: Speci men Type: BLOOD SPECIMENOrdering Facility: [facility] Address: [address] [place] [address] Performed By: #### 5 7021-8 ####[facility] LABCLIA [id number] [place] [address] [place] Hematocrit (Bld) [Volume fraction] 42.1 % Normal 39.0-51.0 [facility] Comment on above: Order Comment: Speci men Type: BLOOD SPECIMENOrdering Facility: [facility] Address: [address] [place] [address] Performed By: #### 5 7021-8 ####[facility] LABCLIA [id number] [place] [address] [place] Hemoglobin (Bld) [Mass/Vol] 13.1 g/dL Normal 13.0-17.0 [facility] Comment on above: Order Comment: Speci men Type: BLOOD SPECIMENOrdering Facility: [facility] Address: [address] [place] [address] Performed By: #### 5 7021-8 ####[facility] LABCLIA [id number] [place] [address] [place] Immature granulocytes (Bld) [#/Vol] 0.04 10*3/uL Normal <0.10 [facility] Comment on above: Order Comment: Speci men Type: BLOOD SPECIMENOrdering Facility: [facility] Address: [address] [place] [address] Performed By: #### 5 7021-8 ####[facility] LABCLIA [id number] [place] [address] [place] Immature granulocytes/100 WBC (Bld) 0.3 % Normal [facility] Comment on above: Order Comment: Speci men Type: BLOOD SPECIMENOrdering Facility: [facility] Address: [address] [place] [address] Performed By: #### 5 7021-8 ####[facility] LABCLIA [id number] [place] [address] [place] Lymphocytes (Bld) [#/Vol] 1.10 10*3/uL Normal 1.00-4.00 [facility] Comment on above: Order Comment: Speci men Type: BLOOD SPECIMENOrdering Facility: [facility] Address: [address] [place] [address] Performed By: #### 5 7021-8 ####[facility] LABCLIA [id number] [place] [address] [place] Lymphocytes/100 WBC (Bld) 8.4 % Normal [facility] Comment on above: Order Comment: Speci men Type: BLOOD SPECIMENOrdering Facility: [facility] Address: [address] [place] [address] Performed By: #### 5 7021-8 ####[facility] LABCLIA [id number] [place] [address] [place] MCH (RBC) [Entitic mass] 27.4 pg Normal 26.0-34.0 [facility] Comment on above: Order Comment: Speci men Type: BLOOD SPECIMENOrdering Facility: [facility] Address: [address] [place] [address] Performed By: #### 5 7021-8 ####[facility] LABCLIA [id number] [place] [address] [place] MCHC (RBC) [Mass/Vol] 31.1 g/dL Normal 30.5-36.0 [facility] Comment on above: Order Comment: Speci men Type: BLOOD SPECIMENOrdering Facility: [facility] Address: [address] [place] [address] Performed By: #### 5 7021-8 ####[facility] LABCLIA [id number] [place] [address] [place] MCV (RBC) [Entitic vol] 88.1 fL Normal 80.0-100.0 [facility] Comment on above: Order Comment: Speci men Type: BLOOD SPECIMENOrdering Facility: [facility] Address: [address] [place] [address] Performed By: #### 5 7021-8 ####[facility] LABCLIA [id number] [place] [address] [place] Monocytes (Bld) [#/Vol] 1.00 10*3/uL High <0.87 [facility] Comment on above: Order Comment: Speci men Type: BLOOD SPECIMENOrdering Facility: [facility] Address: [address] [place] [address] Performed By: #### 5 7021-8 ####[facility] LABCLIA [id number] [place] [address] [place] Monocytes/100 WBC (Bld) 7.7 % Normal [facility] [facility] Comment on above: Order Comment: Speci men Type: BLOOD SPECIMENOrdering Facility: [facility] Address: [address] [place] [address] Performed By: #### 5 7021-8 ####[facility] LABCLIA [id number] [place] [address] [place] Neutrophils (Bld) [#/Vol] 10.38 10*3/uL High 1.45-7.50 [facility] Comment on above: Order Comment: Speci men Type: BLOOD SPECIMENOrdering Facility: [facility] Address: [address] [place] [address] Performed By: #### 5 7021-8 ####[facility] LABCLIA [id number] [place] [address] [place] Neutrophils/100 WBC (Bld) 79.7 % Normal [facility] Comment on above: Order Comment: Speci men Type: BLOOD SPECIMENOrdering Facility: [facility] Address: [address] [place] [address] Performed By: #### 5 7021-8 ####[facility] LABCLIA [id number] [place] [address] [place] Nucleated RBC (Bld) [#/Vol] 10*3/uL Normal <0.01 [facility] Comment on above: Order Comment: Speci men Type: BLOOD SPECIMENOrdering Facility: [facility] Address: [address] [place] [address] Performed By: #### 5 7021-8 ####[facility] LABCLIA [id number] [place] [address] [place] Nucleated RBC/100 WBC (Bld) [Ratio] 0.0 /100 WBC Normal [facility] Comment on above: Order Comment: Speci men Type: BLOOD SPECIMENOrdering Facility: [facility] Address: [address] [place] [address] Performed By: #### 5 7021-8 ####[facility] LABCLIA [id number] [place] [address] [place] Platelet mean volume (Bld) [Entitic vol] 13.0 fL High 9.0-12.7 [facility] Comment on above: Order Comment: Speci men Type: BLOOD SPECIMENOrdering Facility: [facility] Address: [address] [place] [address] Performed By: #### 5 7021-8 ####[facility] LABCLIA [id number] [place] [address] [place] Platelets (Bld) [#/Vol] 334 10*3/uL Normal 150-400 [facility] Comment on above: Order Comment: Speci men Type: BLOOD SPECIMENOrdering Facility: [facility] Address: [address] [place] [address] Performed By: #### 5 7021-8 ####[facility] LABCLIA [id number] [place] [address] [place] RBC (Bld) [#/Vol] 4.78 10*6/uL Normal 4.20-6.00 [facility] Comment on above: Order Comment: Speci men Type: BLOOD SPECIMENOrdering Facility: [facility] Address: [address] [place] [address] Performed By: #### 5 7021-8 ####[facility] LABIA [id number] [place] [address] [place] WBC (Bld) [#/Vol] 13.03 10*3/uL High 3.70-11.00 [facility] Comment on above: Order Comment: Speci men Type: BLOOD SPECIMENOrdering Facility: [facility] Address: [address] [place] [address] Performed By: #### 5 7021-8 ####[facility] LABIA [id number] [place] [address] [place] Comprehensive metabolic 2000 panelon 10-29-2023 Albumin [Mass/Vol] 3.6 g/dL Low 3.9-4.9 [facility] Comment on above: Order Comment: Speci men Type: BLOOD SPECIMENOrdering Facility: [facility] Address: [address] [place] [address] Performed By: #### 2 4323-8, 54156-5 ####[facility] LABIA [id number] [place] [address] [place] ALP [Catalytic activity/Vol] 864 U/L High 38-113 [facility] Comment on above: Order Comment: Speci men Type: BLOOD SPECIMENOrdering Facility: [facility] Address: [address] [place] [address] Performed By: #### 2 4323-8, 26122-8 ####[facility] LABCLIA [id number] [place] [address] [place] ALT [Catalytic activity/Vol] 122 U/L High 10-54 [facility] Comment on above: Order Comment: Speci men Type: BLOOD SPECIMENOrdering Facility: [facility] Address: [address] [place] [address] Performed By: #### 2 4323-8, 34737-8 ####[facility] LABCLIA [id number] [place] [address] [place] Anion gap [Moles/Vol] 15 mmol/L Normal 9-18 [facility] Comment on above: Order Comment: Speci men Type: BLOOD SPECIMENOrdering Facility: [facility] Address: [address] [place] [address] Performed By: #### 2 4323-8, ####[facility] LABCLIA [id number] [place] [address] [place] AST [Catalytic activity/Vol] 135 U/L High 14-40 [facility] Comment on above: Order Comment: Speci men Type: BLOOD SPECIMENOrdering Facility: [facility] Address: [address] [place] [address] Performed By: #### 2 4323-8, 01693-6 ####[facility] LABCLIA [id number] [place] [address] [place] Bilirubin [Mass/Vol] 1.3 mg/dL Normal 0.2-1.3 [facility] Comment on above: Order Comment: Speci men Type: BLOOD SPECIMENOrdering Facility: [facility] Address: [address] [place] [address] Performed By: #### 2 4323-8, 30249-7 ####[facility] LABCLIA [id number] [address] [address] [place] Calcium [Mass/Vol] 9.2 mg/dL Normal 8.5-10.2 [facility] Comment on above: Order Comment: Speci men Type: BLOOD SPECIMENOrdering Facility: [facility] Address: [address] [place] [address] Performed By: #### 2 4323-8, 35958-3 ####[facility] LABCLIA [id number] [place] [address] [place] Chloride [Moles/Vol] 96 mmol/L Low 97-105 [facility] Comment on above: Order Comment: Speci men Type: BLOOD SPECIMENOrdering Facility: [facility] Address: [address] [place] [address] Performed By: #### 2 4323-8, 92956-7 ####[facility] LABCLIA [id number] [place] [address] [place] CO2 [Moles/Vol] 24 mmol/L Normal 22-30 [facility] Comment on above: Order Comment: Speci men Type: BLOOD SPECIMENOrdering Facility: [facility] Address: [address] [place] [address] Performed By: #### 2 4323-8, 76454-4 ####[facility] LABCLIA [id number] [place] [address] [place] Creatinine [Mass/Vol] 1.14 mg/dL Normal 0.73-1.22 [facility] Comment on above: Order Comment: Speci men Type: BLOOD SPECIMENOrdering Facility: [facility] Address: [address] [place] [address] Performed By: #### 2 4323-8, 77029-9 ####[facility] LABCLIA [id number] [place] [address] [place] Creatinine and Glomerular filtration rate.predicted panel (S/P/Bld) 70 mL/min/1.73m??? Normal >=60 [facility] Comment on above: Order Comment: Rikkiyasemin haq Type: BLOOD SPECIMENOrdering Facility: [facility] Address: [address] [place] [address] Result Comment: Jessica mated Glomerular Filtration Rate (eGFR) is calculated using the 2020 CKD-EPI creatinine equation. This equation utilizes serum creatinine, sex, and age as parameters. The creatinine assay has traceable calibration to isotope dilution-mass spectrometry. Refer to KDIGO guidelines for clinical interpretation. In patients with unstable renal function, e.g. those with acute kidney injury, the eGFR may not accurately reflect actual GFR. Performed By: #### 2 4323-8, 87824-9 ####[facility] LABCLIA [id number] [place] [address] [place] Glucose [Mass/Vol] 148 mg/dL High 74-99 [facility] Comment on above: Order Comment: Coy haq Type: BLOOD SPECIMENOrdering Facility: [facility] Address: [address] [place] [address] Result Comment: The [place] Diabetes Association (ADA) provides guidance for cutoff values for fasting glucose and random glucose. The ADA defines fasting as no caloric intake for at least 8 hours. Fasting plasma glucose results between 100 to 125 mg/dL indicate increased risk for diabetes (prediabetes).Fasting plasma glucose results greater than or equal to 126 mg/dL meet the criteria for diagnosis of diabetes. In the absence of unequivocal hyperglycemia, results should be confirmed by repeat testing. In a patient with classic symptoms of hyperglycemia or hyperglycemic crisis, random plasma glucose results greater than or equal to 200 mg/dL meet the criteria for diagnosis of diabetes.Reference: Standards of Medical Care in Diabetes 2016, [place] Diabetes Association. Diabetes Care. 2016.39(Suppl 1). Performed By: #### 2 4323-8, 96650-2 ####[facility] LABIA [id number] [place] [id number] [place] Potassium [Moles/Vol] 4.5 mmol/L Normal 3.7-5.1 [facility] Comment on above: Order Comment: Speci men Type: BLOOD SPECIMENOrdering Facility: [facility] Address: [address] [place] [address] Performed By: #### 2 4323-8, 48910-7 ####[facility] LABCLIA [id number] [place] [address] [place] Protein [Mass/Vol] 8.3 g/dL High 6.3-8.0 [facility] Comment on above: Order Comment: Speci men Type: BLOOD SPECIMENOrdering Facility: [facility] Address: [address] [place] [address] Performed By: #### 2 4323-8, 12783-2 ####[facility] LABCLIA [id number] [place] [address] [place] Sodium [Moles/Vol] 135 mmol/L Low 136-144 [facility] Comment on above: Order Comment: Speci men Type: BLOOD SPECIMENOrdering Facility: [facility] Address: [address] [place] [address] Performed By: #### 2 4323-8, ####[facility] LABCLIA [id number] [place] [address] [place] Urea nitrogen [Mass/Vol] 12 mg/dL Normal 9-24 [facility] Comment on above: Order Comment: Speci men Type: BLOOD SPECIMENOrdering Facility: [facility] Address: [address] [place] [address] Performed By: #### 2 4323-8, 46147-2 ####[facility] LABCLIA [id number] [place] [address] [place] HbA1c (Bld)on 10-29-2023 Average glucose Estimated from glycated hemoglobin (Bld) [Mass/Vol] 214 mg/dL Normal [facility] Comment on above: Order Comment: Speci men Type: BLOOD SPECIMENOrdering Facility: [facility] Address: [address] [place] [address] Result Comment: eAG: (Estimated average glucose) is a calculated value from HgbA1c and is product support sales representative of the average blood glucose level in the last 2-3 month period. Performed By: #### 5 5454-3 ####[facility] LABCLIA [id number] [place] [address] [place] HbA1c (Bld) [Mass fraction] 9.1 % High 4.3-5.6 [facility] Comment on above: Order Comment: Speci men Type: BLOOD SPECIMENOrdering Facility: [facility] Address: [address] [place] [address] Result Comment: [place] Diabetes Association guidelines indicate that patients with HgbA1c in the range 5.7-6.4% are at increased risk for development of diabetes, and intervention by lifestyle modification may be beneficial. HgbA1c greater or equal to 6.5% is considered diagnostic of diabetes. Performed By: #### 5 5454-3 ####[facility] LABCLIA [id number] [place] [address] [place] Lipid 1996 panelon 3 Cholesterol [Mass/Vol] 111 mg/dL Normal <200 [facility] Comment on above: Order Comment: Speci men Type: BLOOD SPECIMENOrdering Facility: [facility] Address: [address] [place] [address] Result Comment: <200 mg/dL, Desirable 200-239 mg/dL, Borderline high>239 mg/dL, High Performed By: #### 2 4323-8, 33135-0 ####[facility] LABCLIA [id number] [place] [address] [place] Cholesterol in HDL [Mass/Vol] 42 mg/dL Normal >39 [facility] Comment on above: Order Comment: Speci men Type: BLOOD SPECIMENOrdering Facility: [facility] Address: [address] [place] [address] Result Comment: 40-5 9 mg/dL, Acceptable>59 mg/dL, High: Negative risk factor for coronary heart disease<40 mg/dL, Low: Positive risk factor for coronary heart disease Performed By: #### 2 4323-8, 18492-3 ####[facility] LABCLIA [id number] [address] [place] Cholesterol in LDL [Mass/Vol] 55 mg/dL Normal <100 [facility] Comment on above: Order Comment: Speci men Type: BLOOD SPECIMENOrdering Facility: [facility] Address: [address] [place] [address] Result Comment: <100 mg/dL, Optimal 100-129 mg/dL, Near optimal/above optimal 130-159 mg/dL, Borderline high 160-189 mg/dL, High>189 mg/dL, Very highSecondary prevention optimal LDL Cholesterol levels are recommended to be < 70 mg/dL Performed By: #### 2 4323-8, 61265-4 ####[facility] LABCLIA [id number] [address] [place] Cholesterol in LDL/Cholesterol in HDL [Mass ratio] 1.31 {ratio} Normal <2.54 [facility] Comment on above: Order Comment: Speci men Type: BLOOD SPECIMENOrdering Facility: [facility] Address: [address] [place] [address] Result Comment: Refe rence:1. National Cholesterol Education Program ATP III Guideline At-A-Glance Quick Desk Reference: National Heart, Lung, and Blood [place]. National Institutes of Health. 2001: NIH Publication No. 01-3305.2. An International Atherosclerosis Society position paper: global recommendations for the management of dyslipidemia: executive summary, Atherosclerosis. 2014: 232(2):410-413. Performed By: #### 2 4323-8, 41565-6 ####[facility] LABCLIA [id number] [address] [place] Cholesterol in VLDL [Mass/Vol] 14 mg/dL Normal <30 [facility] Comment on above: Order Comment: Speci men Type: BLOOD SPECIMENOrdering Facility: [facility] Address: [address] [place] [address] Performed By: #### 2 4323-8, 85548-0 ####[facility] LABCLIA [id number] [place] [address] [place] Cholesterol non HDL [Mass/Vol] 69 mg/dL Normal <130 [facility] Comment on above: Order Comment: Speci men Type: BLOOD SPECIMENOrdering Facility: [facility] Address: [address] [place] [address] Result Comment: <130 mg/dL, Optimal 130-159 mg/dL, Near optimal/above optimal 160-189 mg/dL, Borderline high 190-219 mg/dL, High>219 mg/dL, Very highSecondary prevention optimal non HDL Cholesterol levels are recommended to be <100 mg/dL Performed By: #### 2 4323-8, 41585-8 ####[facility] LABCLIA [id number] [place] [address] [place] Cholesterol.total/Cho lesterol in HDL [Mass ratio] 2.64 {ratio} Normal <5.10 [facility] Comment on above: Order Comment: Speci men Type: BLOOD SPECIMENOrdering Facility: [facility] Address: [address] [place] [address] Performed By: #### 2 4323-8, 40421-2 ####[facility] LABCLIA [id number] [place] [address] [place] FASTING TIME 13 hrs Normal [facility] Comment on above: Order Comment: Speci men Type: BLOOD SPECIMENOrdering Facility: [facility] Address: [address] [place] [address] Performed By: #### 2 4323-8, 29262-3 ####[facility] LABCLIA [id number] [place] [address] [place] Triglyceride [Mass/Vol] 72 mg/dL Normal <150 [facility] Comment on above: Order Comment: Speci men Type: BLOOD SPECIMENOrdering Facility: [facility] Address: [address] [place] [address] Result Comment: <150 mg/dL, Normal 150-199 mg/dL, Borderline high 200-499 mg/dL, High>499 mg/dL, Very high Performed By: #### 2 4323-8, 13790-6 ####[facility] LABCLIA [id number] [facility] [place] [address] [place] CNPNon 10-20-2023 CNPN Normal [facility] CNCOon 10-05-2023 CNCO Letter Text Normal [facility] CNOVon 10-05-2023 CNOV Normal [facility] CT LUNG SCREEN WO IVCONon CT LUNG SCREEN WO IVCON Normal [facility] CNPNon 09-26-2023 CNPN Normal [facility] No Panel Informationon 09-22 [facility] US ABD AORTAon 09-22-2023 US ABD AORTA Normal [facility] US DOPPLER AORTAon US DOPPLER AORTA Normal [facility] CNOVon 09-20-2023 CNOV Normal [facility] CNOVon 09-15-2023 CNOV Normal [facility] CNOVon 09-14-2023 CNOV Normal [facility] HBA1C (OUTSIDE)on 09-06-2023 HbA1c (Bld) [Mass fraction] 9.6 % [facility] CNOVon 09-05-2023 CNOV Normal [facility] CT CHEST WO IVCONon 09-06-20 [facility] CBC W Auto Differential pane l (Bld)on 09-03-2022 Basophils (Bld) [#/Vol] 0.07 10*3/uL <0.11 k/uL [facility] Basophils/100 WBC (Bld) 0.7 % [facility] Differential cell count method Nom (Bld) Auto [facility] Eosinophils (Bld) [#/Vol] 0.31 10*3/uL <0.46 k/uL [facility] Eosinophils/100 WBC (Bld) 3.0 % [facility] Erythrocyte distribution width (RBC) [Ratio] 12.6 % 11.5 - 15.0 % [facility] Hematocrit (Bld) [Volume fraction] 50.9 % 39.0 - 51.0 % [facility] Hemoglobin (Bld) [Mass/Vol] 16.2 g/dL 13.0 - 17.0 g/dL [facility] Immature granulocytes (Bld) [#/Vol] 0.03 10*3/uL <0.10 k/uL [facility] Immature granulocytes/100 WBC (Bld) 0.3 % [facility] Lymphocytes (Bld) [#/Vol] 1.40 10*3/uL 1.00 - 4.00 k/uL [facility] Lymphocytes/100 WBC (Bld) 13.3 % [facility] MCH (RBC) [Entitic mass] 28.5 pg 26.0 - 34.0 pg [facility] MCHC (RBC) [Mass/Vol] 31.8 g/dL 30.5 - 36.0 g/dL [facility] MCV (RBC) [Entitic vol] 89.5 fL 80.0 - 100.0 fL [facility] Monocytes (Bld) [#/Vol] 0.74 10*3/uL <0.87 k/uL [facility] Monocytes/100 WBC (Bld) 7.1 % [facility] Neutrophils (Bld) [#/Vol] 7.94 10*3/uL High 1.45 - 7.50 k/uL [facility] Neutrophils/100 WBC (Bld) 75.6 % [facility] Nucleated RBC (Bld) [#/Vol] <0.01 k/uL [facility] Nucleated RBC/100 WBC (Bld) [Ratio] 0.0 /100 WBC [facility] Platelet mean volume (Bld) [Entitic vol] 11.6 fL 9.0 - 12.7 fL [facility] Platelets (Bld) [#/Vol] 287 10*3/uL 150 - 400 k/uL [facility] RBC (Bld) [#/Vol] 5.69 10*6/uL 4.20 - 6.0 0 m/uL [facility] WBC (Bld) [#/Vol] 10.49 10*3/uL 3.70 - 11 .00 k/uL [facility] ECG COMPLETEon 09-03-2022 Atrial Rate 77 BPM [facility] Calculated P [place] [facility] degrees [facility] Calculated R [place] -33 degrees [facility] Calculated T [place] 77 degrees [facility] P-R Interval 164 ms [facility] QRS Duration 66 ms [facility] QT Interval 380 ms [facility] QTC Calculation (Bazett) 430 ms [facility] Ventricular Rate 77 BPM [facility] XR CHEST 2V FRONTAL/LATon [facility] No Panel Informationon 08-26 [facility] XR TOE AP/LAT/OBL LEFTon [facility] Vital Signs Date Time Vital Sign Value Performing Clinician Loren beltran 07-31-2024 13:27-0400 Body height 180.3 cm Tommy Hardy MD Work Phone: [facility] 07-31-2024 13:27-0400 Body mass index (BMI) [Ratio] 28.95 kg/m2 Tommy Hardy MD Work Phone: [facility] 07-31-2024 13:27-0400 Body weight 94.17 kg Tommy Hardy MD Work Phone: [facility] 07-31-2024 13:27-0400 Diastolic blood pressure 50 mm[Hg] Tommy Hardy MD Work Phone: [facility] 07-31-2024 13:27-0400 Heart rate 71 /min Tommy Hardy MD Work Phone: [facility] 07-31-2024 13:27-0400 SaO2% (BldA) [Mass fraction] 96 % Tommy Hardy MD Work Phone: [facility] 07-31-2024 13:27-0400 Systolic blood pressure 124 mm[Hg] Tommy Hardy MD Work Phone: [facility] 07-09-2024 13:45-0400 Body mass index (BMI) [Ratio] 29.29 kg/m2 Tyra Mac PA-C Work Phone: [facility] 07-09-2024 13:45-0400 Body temperature 97.11 [degF] Tyra Mac PA-C Work Phone: [facility] 07-09-2024 13:45-0400 Body weight 95.25 kg Tyra Mac PA-C Work Phone: [facility] 07-09-2024 13:45-0400 Diastolic blood pressure 66 mm[Hg] Tyra Mac PA-C Work Phone: [facility] 07-09-2024 13:45-0400 Heart rate 78 /min Tyra Mac PA-C Work Phone: [facility] 07-09-2024 13:45-0400 Respiratory rate 20 /min Tyra Mac PA-C Work Phone: [facility] 07-09-2024 13:45-0400 SaO2% (BldA) [Mass fraction] 98 % Tyra Mac PA-C Work Phone: [facility] 07-09-2024 13:45-0400 Systolic blood pressure 116 mm[Hg] Tyra Mac PA-C Work Phone: [facility] 06-17-2024 10:29-0400 Body mass index (BMI) [Ratio] 29.3 kg/m2 Krislyn Aberegg PA Work Phone: [facility] 06-17-2024 10:29040 Body temperature 97.11 [degF] Krislyn Aberegg PA Work Phone: [facility] 06-17-2024 10:290400 Body weight 95.3 kg Krislyn Aberegg PA Work Phone: [facility] 06-17-2024 10:29-0400 Diastolic blood pressure 70 mm[Hg] Krislyn Aberegg PA Work Phone: [facility] 06-17-2024 10:29-0400 Heart rate 94 /min Krislyn Aberegg PA Work Phone: [facility] 06-17-2024 10:29-0400 Respiratory rate 20 /min Krislyn Aberegg PA Work Phone: [facility] 06-17-2024 10:29-0400 SaO2% (BldA) [Mass fraction] 98 % Anton Fish PA Work Phone: [facility] 06-17-2024 10:29-0400 Systolic blood pressure 140 mm[Hg] Anton Lambertgg PA Work Phone: [facility] 04-18-2024 13:39-0400 Body height 180.3 cm Tommy Hardy MD Work Phone: [facility] 04-18-2024 13:39-0400 Body mass index (BMI) [Ratio] 29.57 kg/m2 Tommy Hardy MD Work Phone: [facility] 04-18-2024 13:39-0400 Body weight 96.16 kg Tommy Hardy MD Work Phone: [facility] 04-18-2024 13:39-0400 Diastolic blood pressure 63 mm[Hg] Tommy Hardy MD Work Phone: [facility] 04-18-2024 13:39-0400 Heart rate 96 /min Tommy Hardy MD Work Phone: [facility] 04-18-2024 13:39-0400 Systolic blood pressure 100 mm[Hg] Tommy Hardy MD Work Phone: [facility] 03-20-2024 09:46-0400 Body mass index (BMI) [Ratio] 28.87 kg/m2 Carly Chandler MD Work Phone: [facility] 03-20-2024 09:46-0400 Body weight 93.89 kg Carly Chandler MD Work Phone: [facility] 03-20-2024 09:46-0400 Diastolic blood pressure 72 mm[Hg] Carly Chandler MD Work Phone: [facility] 03-20-2024 09:46-0400 Heart rate 99 /min Carly Chandler MD Work Phone: [facility] 03-20-2024 09:46-0400 Respiratory rate 18 /min Carly Chandler MD Work Phone: [facility] 03-20-2024 09:46-0400 SaO2% (BldA) [Mass fraction] 95 % Carly Chandler MD Work Phone: [facility] 03-20-2024 09:46-0400 Systolic blood pressure 117 mm[Hg] Carly Chandler MD Work Phone: [facility] 01-27-2024 09:26-0500 Diastolic blood pressure 64 mm[Hg] Tommy Hardy MD Work Phone: [facility] 01-27-2024 09:26-0500 Systolic blood pressure 100 mm[Hg] Tommy Hardy MD Work Phone: [facility] 01-27-2024 08:51-0500 Body height 180.3 cm Tommy Hardy MD Work Phone: [facility] 01-27-2024 08:51-0500 Body weight 95.25 kg Tommy Hardy MD Work Phone: [facility] 01-27-2024 08:51-0500 Heart rate 101 /min Tommy Hardy MD Work Phone: [facility] 01-27-2024 08:51-0500 SaO2% (BldA) [Mass fraction] 96 % Tommy Hardy MD Work Phone: [facility] 01-11-2024 14:22-0500 Body height 180.3 cm Tommy Hardy MD Work Phone: [facility] 01-11-2024 14:22-0500 Body weight 97.07 kg Tommy Hardy MD Work Phone: [facility] 01-11-2024 14:22-0500 Diastolic blood pressure 62 mm[Hg] Tommy Hardy MD Work Phone: [facility] 01-11-2024 14:22-0500 Heart rate 79 /min Tommy Hardy MD Work Phone: [facility] 01-11-2024 14:22-0500 SaO2% (BldA) [Mass fraction] 97 % Tommy Hardy MD Work Phone: [facility] 01-11-2024 14:22-0500 Systolic blood pressure 126 mm[Hg] Tommy Hardy MD Work Phone: [facility] 10-05-2023 11:42-0500 Body height 182.2 cm Tommy Hardy MD Work Phone: [facility] 10-05-2023 11:42-0500 Body weight 102.88 kg Tommy Hardy MD Work Phone: [facility] 10-05-2023 11:42-0500 Diastolic blood pressure 66 mm[Hg] Tommy Hardy MD Work Phone: [facility] 10-05-2023 11:42-0500 Heart rate 96 /min Tommy Hardy MD Work Phone: [facility] 10-05-2023 11:42-0500 Systolic blood pressure 102 mm[Hg] Tommy Hardy MD Work Phone: [facility] 09-20-2023 10:36-0400 Body weight 102.06 kg Andres Dash CHEMISTRY DEPARTMENT CHAIR.DOUBLE BACK OPERATOR Work Phone: [facility] 09-20-2023 10:36-0400 Diastolic blood pressure 82 mm[Hg] Andres Dash CHEMISTRY DEPARTMENT CHAIR.DOUBLE BACK OPERATOR Work Phone: [facility] 09-20-2023 10:36-0400 Heart rate 100 /min Andres Dash CHEMISTRY DEPARTMENT CHAIR.DOUBLE BACK OPERATOR Work Phone: [facility] 09-20-2023 10:36-0400 SaO2% (BldA) [Mass fraction] 96 % Andres Remyter CHEMISTRY DEPARTMENT CHAIR.DOUBLE BACK OPERATOR Work Phone: [facility] 09-20-2023 10:36-0400 Systolic blood pressure 144 mm[Hg] Andres Remyter CHEMISTRY DEPARTMENT CHAIR.DOUBLE BACK OPERATOR Work Phone: [facility] 09-15-2023 13:24-0400 Body height 182.2 cm Yoly Ornelas PA-C Work Phone: [facility] 09-15-2023 13:24-0400 Body weight 104.78 kg Yoly Ilya PA-C Work Phone: [facility] 09-15-2023 13:24-0400 Diastolic blood pressure 74 mm[Hg] Yoly Ilya PA-C Work Phone: [facility] 09-15-2023 13:24-0400 Heart rate 78 /min Yoly Ilya PA-C Work Phone: [facility] 09-15-2023 13:24-0400 Respiratory rate 16 /min Yloy Ilya PA-C Work Phone: [facility] 09-15-2023 13:24-0400 SaO2% (BldA) [Mass fraction] 96 % Yoly Ilya PA-C Work Phone: [facility] 09-15-2023 13:24-0400 Systolic blood pressure 130 mm[Hg] Yoly Ilya PA-C Work Phone: [facility] 09-14-2023 14:24-0400 Body height 182.2 cm Tommy Hardy MD Work Phone: [facility] 09-14-2023 14:24-0400 Body weight 105.14 kg Tommy Hardy MD Work Phone: [facility] 09-14-2023 14:24-0400 Diastolic blood pressure 56 mm[Hg] Tommy Hardy MD Work Phone: [facility] 09-14-2023 14:24-0400 Heart rate 84 /min Tommy Hardy MD Work Phone: [facility] 09-14-2023 14:24-0400 SaO2% (BldA) [Mass fraction] 95 % Tommy Hardy MD Work Phone: [facility] 09-14-2023 14:24-0400 Systolic blood pressure 108 mm[Hg] Tommy Hardy MD Work Phone: [facility] 10-22-2022 14:16-0500 Body height 182.2 cm Tommy Hardy MD Work Phone: [facility] 10-22-2022 14:16-0500 Body weight 109.14 kg Tommy Hardy MD Work Phone: [facility] 10-22-2022 14:16-0500 Diastolic blood pressure 66 mm[Hg] Tommy Hardy MD Work Phone: [facility] 10-22-2022 14:16-0500 Heart rate 87 /min Tommy Hardy MD Work Phone: [facility] 10-22-2022 14:16-0500 SaO2% (BldA) [Mass fraction] 95 % Tommy Hardy MD Work Phone: [facility] 10-22-2022 14:16-0500 Systolic blood pressure 134 mm[Hg] Tommy Hardy MD Work Phone: [facility] 10-22-2022 08:03-0500 Body weight 109.77 kg Carly Chandler MD Work Phone: [facility] 10-22-2022 08:03-0500 Diastolic blood pressure 78 mm[Hg] Carly Chandler MD Work Phone: [facility] 10-22-2022 08:03-0500 Heart rate 97 /min Carly Chandler MD Work Phone: [facility] 10-22-2022 08:03-0500 Respiratory rate 17 /min Carly Chandler MD Work Phone: [facility] 10-22-2022 08:03-0500 SaO2% (BldA) [Mass fraction] 96 % Carly Chandler MD Work Phone: [facility] 10-22-2022 08:03-0500 Systolic blood pressure 144 mm[Hg] Carly Chandler MD Work Phone: [facility] 09-06-2022 10:33-0400 Body height 182.2 cm Respiratory Wstr Work Phone: [facility] 09-06-2022 10:33-0400 Body weight 110.18 kg Respiratory Wstr Work Phone: [facility] 09-06-2022 10:33-0400 Heart rate 73 /min Respiratory Wstr Work Phone: [facility] 09-06-2022 10:33-0400 Respiratory rate 14 /min Respiratory Wstr Work Phone: [facility] 09-06-2022 10:33-0400 SaO2% (BldA) [Mass fraction] 94 % Respiratory Wstr Work Phone: [facility] 09-03-2022 09:06-0400 Body height 182.9 cm Tommy Hardy MD Work Phone: [facility] 09-03-2022 09:06-0400 Body weight 110.5 kg Tommy Hardy MD Work Phone: [facility] 09-03-2022 09:06-0400 Diastolic blood pressure 60 mm[Hg] Tommy Hardy MD Work Phone: [facility] 09-03-2022 09:06-0400 Heart rate 84 /min Tommy Hardy MD Work Phone: [facility] 09-03-2022 09:06-0400 SaO2% (BldA) [Mass fraction] 96 % Tommy Hardy MD Work Phone: [facility] 09-03-2022 09:06-0400 Systolic blood pressure 114 mm[Hg] Tommy Hardy MD Work Phone: [facility] 08-20-2022 11:18-0400 Body weight 111.13 kg Tommy Hardy MD Work Phone: [facility] 08-20-2022 11:18-0400 Diastolic blood pressure 68 mm[Hg] Tommy Hardy MD Work Phone: [facility] 08-20-2022 11:18-0400 Heart rate 72 /min Tommy Hardy MD Work Phone: [facility] 08-20-2022 11:18-0400 Systolic blood pressure 132 mm[Hg] Tommy Hardy MD Work Phone: [facility] 06-24-2022 15:29-0400 Body weight 109.59 kg Rosemary Agustin CHEMISTRY DEPARTMENT CHAIR.DOUBLE BACK OPERATOR Work Phone: [facility] 06-24-2022 15:29-0400 Diastolic blood pressure 88 mm[Hg] Rosemary Lawsonman CHEMISTRY DEPARTMENT CHAIR.DOUBLE BACK OPERATOR Work Phone: [facility] 06-24-2022 15:29-0400 Heart rate 76 /min Rosemary Lawsonman CHEMISTRY DEPARTMENT CHAIR.DOUBLE BACK OPERATOR Work Phone: [facility] 06-24-2022 15:29-0400 SaO2% (BldA) [Mass fraction] 95 % Rosemary Lawsonman CHEMISTRY DEPARTMENT CHAIR.DOUBLE BACK OPERATOR Work Phone: [facility] 06-24-2022 15:29-0400 Systolic blood pressure 136 mm[Hg] Rosemary Lawsonman CHEMISTRY DEPARTMENT CHAIR.DOUBLE BACK OPERATOR Work Phone: [facility] 06-21-2022 14:20-0400 Body temperature 98.4 [degF] Inna Roque CHEMISTRY DEPARTMENT CHAIR.DOUBLE BACK OPERATOR Work Phone: [facility] 06-21-2022 14:20-0400 Body weight 110.68 kg Inna Roque CHEMISTRY DEPARTMENT CHAIR.DOUBLE BACK OPERATOR Work Phone: [facility] 06-21-2022 14:20-0400 Diastolic blood pressure 78 mm[Hg] Inna Roque CHEMISTRY DEPARTMENT CHAIR.DOUBLE BACK OPERATOR Work Phone: [facility] 06-21-2022 14:20-0400 Heart rate 86 /min Inna Roque APRN.DOUBLE BACK OPERATOR Work Phone: [facility] 06-21-2022 14:20-0400 Respiratory rate 20 /min Inna Roque CHEMISTRY DEPARTMENT CHAIR.DOUBLE BACK OPERATOR Work Phone: [facility] 06-21-2022 14:20-0400 SaO2% (BldA) [Mass fraction] 95 % Inna Roque CHEMISTRY DEPARTMENT CHAIR.DOUBLE BACK OPERATOR Work Phone: [facility] 06-21-2022 14:20-0400 Systolic blood pressure 130 mm[Hg] Inna Roque CHEMISTRY DEPARTMENT CHAIR.DOUBLE BACK OPERATOR Work Phone: [facility] 06-15-2022 08:19-0400 Body weight 108.86 kg Isabela Haagen CHEMISTRY DEPARTMENT CHAIR.DOUBLE BACK OPERATOR Work Phone: [facility] 06-15-2022 08:19-0400 Diastolic blood pressure 80 mm[Hg] Isabela Haagen CHEMISTRY DEPARTMENT CHAIR.DOUBLE BACK OPERATOR Work Phone: [facility] 06-15-2022 08:19-0400 Heart rate 76 /min Isabela Haagen CHEMISTRY DEPARTMENT CHAIR.DOUBLE BACK OPERATOR Work Phone: [facility] 06-15-2022 08:19-0400 Respiratory rate 18 /min Isabela Haagen CHEMISTRY DEPARTMENT CHAIR.DOUBLE BACK OPERATOR Work Phone: [facility] 06-15-2022 08:19-0400 SaO2% (BldA) [Mass fraction] 95 % Isabela Haagen CHEMISTRY DEPARTMENT CHAIR.DOUBLE BACK OPERATOR Work Phone: [facility] 06-15-2022 08:19-0400 Systolic blood pressure 132 mm[Hg] Isabela Haagen CHEMISTRY DEPARTMENT CHAIR.DOUBLE BACK OPERATOR Work Phone: [facility] 02-15-2022 10:54-0400 Body weight 109.77 kg Tommy Hardy MD Work Phone: [facility] 02-15-2022 10:54-0400 Diastolic blood pressure 82 mm[Hg] Tommy Hardy MD Work Phone: [facility] 02-15-2022 10:54-0400 Heart rate 80 /min Tommy Hardy MD Work Phone: [facility] 02-15-2022 10:54-0400 Systolic blood pressure 120 mm[Hg] Tommy Hardy MD Work Phone: [facility] Encounters Encounter Date Encounter Type Care Provider Facility Start: 08-03-2024 End: 08-03-2024 Chart abstracting Tommy Hardy MD Work Phone: [facility] [place] Start: 08-03-2024 End: 08-03-2024 Telephone encounter Tommy Hrady MD Work Phone: [facility] [place] Comment on above: Patient Update Start: 08-01-2024 End: 08-01-2024 Telephone encounter Tommy Hardy MD Work Phone: [facility] [place] Comment on above: Results Start: 07-31-2024 End: 07-31-2024 ambulatory [facility] Facility:[facility] Start: 07-31-2024 End: 07-31-2024 Patient encounter procedure Tommy Hardy MD Work Phone: [facility] [place] Comment on above: Diarrhea, unspecifie d type (Primary Dx); Polyneuropathy; Vascular dementia, uncomplicated ([facility]); Controlled type 2 diabetes mellitus without complication, without long-term current use of insulin ([facility]); Abdominal aortic aneurysm (AAA) without rupture, unspecified part ([facility]); CALLI (obstructive sleep apnea); Stage 3 severe COPD by GOLD classification ([facility]); Hyperlipidemia, unspecified hyperlipidemia type; Bronchiectasis without complication ([facility]); Lung nodules; Bilateral carotid artery stenosis; Encounter for screening examination for other mental health and behavioral disorders; Anemia, unspecified type Start: 07-31-2024 End: 07-31-2024 [place] Facility:[facility] Start: 07-11-2024 End: 07-11-2024 ambulatory Tyra Mac PA-C Work Phone: [facility] [employer] Comment on above: Diaherra Start: 07-10-2024 End: 07-11-2024 ambulatory Tyra Mac PA-C Work Phone: [facility] [place] Comment on above: lab Start: 07-09-2024 End: 07-09-2024 ambulatory Tommy Hardy MD Work Phone: [facility] [employer] Comment on above: Diarrhea diaherra Start: 07-09-2024 End: 07-09-2024 Patient encounter procedure Tyra Mac PA-C Work Phone: [facility] [place] Comment on above: Diarrhea, unspecifie d type (Primary Dx) Start: 07-02-2024 ambulatory Tommy Hardy MD Work Phone: [facility] [place] Comment on above: [place] 3 sensor Start: 06-20-2024 ambulatory Tommy Hardy MD Work Phone: [facility] [place] Comment on above: medication Start: 06-18-2024 Telephone encounter April Henderson daviss CHEMISTRY DEPARTMENT CHAIR.DOUBLE BACK OPERATOR Work Phone: [employer] Comment on above: Results Start: 06-18-2024 End: 06-18-2024 ambulatory ANTON FISH Facility:[facility] Start: 06-18-2024 End: 06-18-2024 Subsequent hospital visit by physician Agustin [facility] [employer] Work Phone: Radiology Comment on above: Acute pain of left k nee [M25.562] Start: 06-17-2024 End: 06-17-2024 ambulatory TOMMY HARDY Facility:[facility] Start: 06-17-2024 End: 06-17-2024 Patient encounter procedure Anton Fish PA Work Phone: [facility] Comment on above: Acute pain of left k nee (Primary Dx); Abrasion of left knee, initial encounter Start: 06-13-2024 Telephone encounter Tommy Hardy MD Work Phone: [facility] [place] Comment on above: Medication Problem Start: 06-10-2024 ambulatory Tommy Hardy MD Work Phone: Family [facility] [place] Comment on above: pills Start: 04-20-2024 ambulatory Tommy Hardy MD Work Phone: [facility] [place] Comment on above: pills Start: 04-18-2024 End: 04-18-2024 ambulatory TOMMY HARDY Facility:[facility] Start: 04-18-2024 End: 04-18-2024 Patient encounter procedure Tommy Hardy MD Work Phone: [facility] [place] Comment on above: Cerebrovascular acci dent (CVA), unspecified mechanism (HCC) (Primary Dx); Abdominal aortic aneurysm (AAA) without rupture, unspecified part (HCC); CALLI (obstructive sleep apnea); Stage 3 severe COPD by GOLD classification (HCC); Controlled type 2 diabetes mellitus without complication, without long-term current use of insulin (HCC); Hyperglycemia; Bilateral carotid artery stenosis; History of cerebrovascular accident; Obstructive jaundice; Urinary retention; Tinea cruris Start: 04-13-2024 End: 04-13-2024 ambulatory TOMMY PAULSONO Facility:[facility] Start: 03-21-2024 ambulatory Tommy Hardy MD Work Phone: [facility] [employer] Comment on above: therapy Start: 03-20-2024 End: 03-20-2024 ambulatory TOMMY Olaf HAYLEY Facility:[facility] Start: 03-20-2024 End: 03-20-2024 Patient encounter procedure Carly Chandler MD Work Phone: Pulmonary Medicine Comment on above: Moderate COPD (chron ic obstructive pulmonary disease) (HCC) (Primary Dx); Cigarette smoker; Granulomatous disease (HCC) Start: 03-12-2024 ambulatory Tommy Hardy MD Work Phone: [facility] [place] Comment on above: needles Start: 02-24-2024 Telephone encounter Tommy Hardy MD Work Phone: [facility] [place] Comment on above: [facility] PAT requesting r ecords Start: 02-22-2024 ambulatory Tommy Hardy MD Work Phone: [facility] [place] Comment on above: numbers Blood pressure Start: 02-20-2024 Telephone encounter Tommy Hardy MD Work Phone: [facility] [employer] Comment on above: Results Start: 02-17-2024 End: 02-17-2024 ambulatory TOMMY HARDY Facility:[facility] Start: 02-14-2024 ambulatory Tommy Hardy MD Work Phone: [facility] [place] Comment on above: blood Start: 02-07-2024 ambulatory Tommy Hardy MD Work Phone: [facility] [place] Comment on above: hospital Start: 02-02-2024 Telephone encounter Tommy Hardy MD Work Phone: Pulmonology [facility] Comment on above: Results Start: 02-01-2024 End: 02-01-2024 ambulatory TOMMY HARDY Facility:[facility] Start: 01-27-2024 Telephone encounter Tommy Hardy MD Work Phone: [facility] [place] Comment on above: Patient Update Start: 01-27-2024 End: 01-27-2024 ambulatory TOMMY HARDY Facility:[facility] Start: 01-27-2024 End: 01-27-2024 Patient encounter procedure Tommy Hardy MD Work Phone: [facility] [employer] Comment on above: Controlled type 2 di abetes mellitus without complication, without long-term current use of insulin (HCC) (Primary Dx); Memory loss; Cerebrovascular accident (CVA), unspecified mechanism (HCC); Infarction of thalamus (HCC); Abdominal aortic aneurysm (AAA) without rupture, unspecified part (HCC); Stage 3 severe COPD by GOLD classification ([facility]) Start: 01-26-2024 ambulatory Tommy Hardy MD Work Phone: [facility] [place] Comment on above: Visit Start: 01-25-2024 ambulatory Tommy Hardy MD Work Phone: [facility] [employer] Comment on above: [facility] Start: 01-19-2024 ambulatory Tommy Hardy MD Work Phone: [facility] [place] Comment on above: Symptoms Stroke Start: 01-12-2024 ambulatory Tommy Hardy MD Work Phone: [facility] Start: 01-12-2024 Telephone encounter Tommy Hardy MD Work Phone: Pul[facility]ology [facility] Comment on above: Results refill Start: 01-11-2024 End: 01-11-2024 ambulatory TOMMY HARDY Facility:[facility] Start: 01-11-2024 End: 01-11-2024 Patient encounter procedure Tommy Hardy MD Work Phone: [facility] [employer] Comment on above: Obstructive jaundice (Primary Dx); Controlled type 2 diabetes mellitus without complication, without long-term current use of insulin (HCC); Gastroparesis; Cerebrovascular accident (CVA), unspecified mechanism (HCC) Start: 01-09-2024 ambulatory Tommy Hardy MD Work Phone: [facility] [employer] Comment on above: hospital Start: 01-08-2024 ambulatory Tommy Hardy MD Work Phone: Family [facility] [place] Comment on above: visit Start: 01-04-2024 ambulatory Tommy Hardy MD Work Phone: [facility] [place] Comment on above: liver Start: 12-30-2023 ambulatory Tommy Hardy MD Work Phone: [facility] [employer] Comment on above: machine sugar norberto Start: 12-26-2023 ambulatory Carly Chandler MD Work Phone: Pulmonary Medicine Comment on above: meds Start: 12-16-2023 End: 12-16-2023 ambulatory TOMMY Olaf HAYLEY Facility:[facility] Start: 12-13-2023 End: 12-13-2023 ambulatory TOMMY Olaf HAYLEY Facility:[facility] Start: 11-11-2023 End: 11-11-2023 ambulatory TOMMY HARDY Facility:[facility] Start: 11-10-2023 ambulatory Tommy Hardy MD Work Phone: [facility] [place] Comment on above: tests Start: 11-07-2023 End: 11-07-2023 ambulatory TOMMY HARDY Facility:[facility] Start: 11-02-2023 ambulatory Tommy Hardy MD Work Phone: [facility] [employer] Comment on above: Hospital Start: 10-29-2023 End: 10-29-2023 ambulatory TOMMY HARDY Facility:[facility] Start: 10-21-2023 ambulatory Tommy Hardy MD Work Phone: [facility] [employer] Comment on above: medical form Start: 10-11-2023 ambulatory Tommy Hardy MD Work Phone: [facility] [employer] Comment on above: numbers Start: 10-07-2023 ambulatory Tommy Hardy MD Work Phone: [facility] [place] Comment on above: numbers Start: 10-05-2023 End: 10-05-2023 ambulatory TOMMY HARDY Facility:[facility] Start: 10-05-2023 End: 10-05-2023 Patient encounter procedure Tommy Hardy MD Work Phone: [facility] [place] Comment on above: Cerebrovascular acci dent (CVA), unspecified mechanism (HCC) (Primary Dx); Controlled type 2 diabetes mellitus without complication, without long-term current use of insulin (HCC); History of diabetes mellitus; Infarction of thalamus (HCC); Hyperlipidemia, unspecified hyperlipidemia type Start: 09-29-2023 Orders Only Angeles Allen octavio CHEMISTRY DEPARTMENT CHAIR.DOUBLE BACK OPERATOR Work Phone: [facility] Medicine Comment on above: Personal history of tobacco use, presenting hazards to health (Primary Dx) Start: 09-28-2023 End: 09-28-2023 ambulatory TOMMY [facility] Facility:[facility] Start: 09-26-2023 Telephone encounter Tommy Hardy MD Work Phone: [facility] [place] Comment on above: Patient Update Start: 09-22-2023 End: 09-22-2023 ambulatory TOMMY HAYLEY Facility:[facility] Start: 09-22-2023 End: 09-22-2023 Subsequent hospital visit by physician [facility] Work Phone: Radiology Comment on above: Abdominal aortic ane urysm (AAA) without rupture, unspecified part (HCC) [I71.40] Start: 09-20-2023 End: 09-20-2023 ambulatory [facility] Facility:[facility] Start: 09-20-2023 End: 09-20-2023 Patient encounter procedure Andres Dash APRN.DOUBLE BACK OPERATOR Work Phone: Pulmonary Medicine Comment on above: Encounter for screen ing for lung cancer (Primary Dx); Former cigarette smoker Start: 09-15-2023 End: 09-15-2023 Office outpatient visit 15 minutes Yoly Ornelas PA-C Work Phone: Pulmonary Medicine Comment on above: Moderate COPD (chron ic obstructive pulmonary disease) (HCC) (Primary Dx); Former cigarette smoker Start: 09-15-2023 End: 09-15-2023 ambulatory YOLY ORNELAS Facility:[facility] Start: 09-14-2023 End: 09-14-2023 ambulatory [facility] Facility:[facility] Start: 09-14-2023 End: 09-14-2023 Patient encounter procedure Tommy Hardy MD Work Phone: [facility] [place] Comment on above: History of stroke wi th residual effects (Primary Dx); Controlled type 2 diabetes mellitus without complication, without long-term current use of insulin (HCC); Altered mental status, unspecified altered mental status type; Bilateral carotid artery stenosis; Abdominal aortic aneurysm (AAA) without rupture, unspecified part (HCC); Bronchiectasis without complication (HCC); Stage 3 severe COPD by GOLD classification (HCC); History of diabetes mellitus; Cerebrovascular accident (CVA), unspecified mechanism (HCC); Infarction of thalamus (HCC); CALLI (obstructive sleep apnea); Lung nodules Start: 09-09-2023 Chart abstracting Tommy Smith MD Work Phone: [facility] [employer] Start: 09-07-2023 ambulatory Tommy Hardy MD Work Phone: [facility] [employer] Comment on above: Visit Start: 09-05-2023 End: 09-05-2023 ambulatory TOMMY HARDY Facility:[facility] Start: 09-04-2023 ambulatory Tommy Hardy MD Work Phone: Family Medicine [employer] Comment on above: a1c Start: 08-15-2023 ambulatory Tommy Hardy MD Work Phone: Family Medicine [employer] Comment on above: meds Start: 08-10-2023 Orders Only Carly Chandler MD Work Phone: Pulmonary Medicine Comment on above: Cigarette smoker (Pr imary Dx) Start: 07-10-2023 ambulatory Tommy Hardy MD Work Phone: [facility] [place] Comment on above: needles Start: 06-02-2023 ambulatory Tommy Hardy MD Work Phone: Family [facility] [employer] Comment on above: insulin Start: 04-03-2023 ambulatory Tommy Hardy MD Work Phone: Family [facility] [employer] Comment on above: neurologist Start: 03-30-2023 Telephone encounter Tommy Hardy MD Work Phone: Family [facility] [employer] Comment on above: Forms Start: 03-22-2023 [facility] Get Medical Advice Mara Chandler MD Work Phone: Pulmonary Medicine Comment on above: refill Start: 03-21-2023 ambulatory Tommy Hardy MD Work Phone: Family [facility] [employer] Comment on above: humolog Start: 02-11-2023 Refill Tommy Hardy MD Work Phone: Family [facility] [employer] Comment on above: Refill Request; Refe rral Request (urology) Start: 02-06-2023 ambulatory Tommy Hardy MD Work Phone: Family [facility] [employer] Comment on above: meds Start: 11-04-2022 [facility] Get Medical Advice Tommy Hardy MD Work Phone: Family [facility] [employer] Comment on above: refill Start: 10-22-2022 End: 10-22-2022 Patient encounter procedure Carly Chandler MD Work Phone: Pulmonary Medicine Comment on above: Stage 3 severe COPD by GOLD classification (HCC) (Primary Dx); Former cigarette smoker; Class 1 obesity due to excess calories with body mass index (BMI) of 33.0 to 33.9 in adult, unspecified whether serious comorbidity present Stage 3 severe COPD by GOLD classification (HCC) (Primary Dx); Mild depressive disorder; Bronchiectasis without complication (HCC); Controlled type 2 diabetes mellitus without complication, without long-term current use of insulin (HCC) Start: 09-21-2022 Telephone encounter Tommy Hardy MD Work Phone: [facility] [place] Comment on above: fax request Forms Start: 09-19-2022 Telephone encounter Zion Calhoun PA-C Work Phone: Family [facility] [employer] Comment on above: Consult Start: 09-14-2022 ambulatory Tommy Hardy MD Work Phone: [facility] [place] Comment on above: Pulmonary Doctor Start: 09-07-2022 Refill Tommy Hardy MD Work Phone: Family [facility] [employer] Comment on above: Results Start: 09-06-2022 End: 09-06-2022 Subsequent hospital visit by physician [facility] (I-Stat) Work Phone: Cat Scan Comment on above: Lung fibrosis (HCC) [J84.10] Start: 09-06-2022 End: 09-06-[address] [facility] Work Phone: Pulmonary Medicine Comment on above: Spirometry Start: 09-06-2022 End: 09-06-2022 Patient encounter procedure Respiratory Therapist [facility] Work Phone: [place] [facility] Start: 09-03-2022 Telephone encounter Tommy Hardy MD Work Phone: Family [facility] [place] Comment on above: Results Start: 09-03-2022 End: 09-03-2022 Patient encounter procedure Tommy Hardy MD Work Phone: Family [facility] [place] Comment on above: SOB (shortness of br eath) (Primary Dx); CALLI (obstructive sleep apnea); Cough, unspecified type; Abdominal aortic aneurysm (AAA) without rupture, unspecified part Start: 08-31-2022 ambulatory Tommy Hardy MD Work Phone: Family [facility] [place] Comment on above: CPAP faxed Breathing Problem Start: 08-26-2022 End: 08-26-2022 Subsequent hospital visit by physician [facility] Work Phone: Radiology Comment on above: Abdominal aortic ane urysm (AAA) without rupture [I71.40] Start: 08-24-2022 ambulatory Tommy Hardy MD Work Phone: Family Medicine [place] Comment on above: cpap Start: 08-20-2022 End: 08-20-2022 Patient encounter procedure Tommy Hardy MD Work Phone: Family Medicine [employer] Comment on above: Controlled type 2 di abetes mellitus without complication, without long-term current use of insulin (HCC) (Primary Dx); Mild depressive disorder; Cerebrovascular accident (CVA), unspecified mechanism (HCC); Abdominal aortic aneurysm (AAA) without rupture (HCC); Hyperlipidemia, unspecified hyperlipidemia type; Bilateral carotid artery stenosis; Need for influenza vaccination; Need for vaccination Start: 08-18-2022 ambulatory Tommy Hardy MD Work Phone: Family [facility] [place] Comment on above: numbers Start: 07-16-2022 ambulatory Bisi Middleton APR N.DOUBLE BACK OPERATOR Work Phone: G[facility]ology [place] Comment on above: drugs Start: 07-02-2022 ambulatory Tommy Hardy MD Work Phone: Family Medicine [place] Comment on above: drugs Start: 06-24-2022 End: 06-24-2022 Office outpatient visit 15 minutes Rosemary Agustin CHEMISTRY DEPARTMENT CHAIR.DOUBLE BACK OPERATOR Work Phone: Family Medicine [employer] Comment on above: Acute otitis externa of right ear, unspecified type (Primary Dx) Start: 06-24-2022 ambulatory Tommy Hardy MD Work Phone: Family Medicine [employer] Comment on above: ears toe Start: 06-23-2022 ambulatory Isabela Hernández CHEMISTRY DEPARTMENT CHAIR.DOUBLE BACK OPERATOR Work Phone: Family Medicine [place] Comment on above: toe Start: 06-21-2022 End: 06-21-2022 Patient encounter procedure Inna Roque APRN.DOUBLE BACK OPERATOR Work Phone: [facility] Comment on above: Acute otitis media, right (Primary Dx) Start: 06-16-2022 Telephone encounter Tommy Hardy MD Work Phone: Family Medicine [employer] Comment on above: Results Start: 06-15-2022 End: 06-15-2022 Office outpatient visit 15 minutes Isabela Hernández CHEMISTRY DEPARTMENT CHAIR.DOUBLE BACK OPERATOR Work Phone: Family Medicine [employer] Comment on above: Pain of toe, unspeci fied laterality (Primary Dx) Start: 05-05-2022 Telephone encounter Tommy Hardy MD Work Phone: Family Medicine [place] Comment on above: Forms Start: 02-17-2022 Get Medical Advice Tommy Hardy MD Work Phone: Family Medicine [place] Comment on above: refill Start: 02-15-2022 End: 02-15-2022 Patient encounter procedure Tommy Hardy MD Work Phone: Family Medicine [place] Comment on above: Controlled type 2 di abetes mellitus without complication, without long-term current use of insulin (HCC) (Primary Dx); Bilateral carotid artery stenosis; Abdominal aortic aneurysm (AAA) without rupture (HCC); Hyperlipidemia, unspecified hyperlipidemia type; CALLI (obstructive sleep apnea) Start: 10-26-2021 Telephone encounter Bisi Middleton APRN.CNP Work Phone: [facility] [place] Comment on above: Opened In Error Procedures Date Procedure Procedure Detail Performing Clinician Start: 08-02-2024 Hemoglobin A1c/Hemoglobin.total in Blood [facility] Provider Start: 06-18-2024 Radiologic exam knee complete 4/more views Anton HERNANDEZ Work Phone: Start: 04-25-2024 Hemoglobin A1c/Hemoglobin.total in Blood [facility] Provider Start: 09-22-2023 Us retroperitoneal r eal time w/image limited Tommy Hardy MD Work Phone: Start: 09-06-2023 Hemoglobin A1c/Hemoglobin.total in Blood [facility] Provider Start: 09-06-2022 Brncdilat rspse spmt ry pre&post-brncdilat admn Tommy Hardy MD Work Phone: Start: 09-03-2022 Ecg routine ecg w/le ast 12 lds w/i&r Tommy Hardy MD Work Phone: Start: 08-26-2022 Us retroperitoneal r eal time w/image limited Tommy Hardy MD Work Phone: Start: 08-20-2022 INFLUENZA SEASONAL QUADRIVALENT HIGH DOSE AGE 65+ Tommy Hardy MD Work Phone: Start: 10-06-2021 Colonoscopy Tommy Smith MD Work Phone: Plan of Treatment Date Care Activity Detail Author Start: 11-02-2033 Urine microalbumin profile DTaP,Tdap,Td Vaccine (3 - Td or Tdap) [facility] Start: 10-06-2026 Colonoscopy COLONOSCOPY [facility] Start: 10-06-2026 COLORECTAL CANCER SCREENING COLORECTAL CANCER SCREENING [facility] Start: 10-06-2026 Screening for malign ant neoplasm of colon [facility] Start: 08-21-2025 PROSTATE CANCER SCRE ENING DISCUSSION PROSTATE CANCER SCREENING DISCUSSION [facility] Start: 07-31-2025 Annual PCP Team Skein Yarn Dyer Helper rai Disease Visit Annual PCP Team Chronic Disease Visit [facility] Start: 07-31-2025 Anxiety Screening Anxiety Screening [facility] Start: 07-31-2025 Covid-19 Vaccine () Covid-19 Vaccine () [facility] Comment on above: Postponed from 07/22 (Declined at this time) Start: 07-09-2025 Annual PCP Team Skein Yarn Dyer Helper rai Disease Visit Annual PCP Team Chronic Disease Visit [facility] Start: 05-20-2025 Influenza vaccination Influenza Vacc ine (#1) [facility] Comment on above: Postponed from 07/22 (Declined at this time) Start: 04-18-2025 Annual PCP Team Skein Yarn Dyer Helper rai Disease Visit Annual PCP Team Chronic Disease Visit [facility] Start: 04-18-2025 Covid-19 Vaccine () Covid-19 Vaccine () [facility] Comment on above: Postponed from 01/14 (Declined at this time) Start: 03-16-2025 Glaucoma screening Dilated Retinal E xam [facility] Start: 02-16-2025 Annual PCP Team Skein Yarn Dyer Helper rai Disease Visit Annual PCP Team Chronic Disease Visit [facility] Start: 01-30-2025 Hemoglobin A1c measurement HbA1C [facility] Start: 01-26-2025 Annual PCP Team Skein Yarn Dyer Helper rai Disease Visit Annual PCP Team Chronic Disease Visit [facility] Start: 01-26-2025 Diabetic foot examination Diabetic F oot Exam [facility] Start: 01-11-2025 Annual PCP Team Skein Yarn Dyer Helper rai Disease Visit Annual PCP Team Chronic Disease Visit [facility] Start: 12-13-2024 Annual PCP Team Skein Yarn Dyer Helper rai Disease Visit Annual PCP Team Chronic Disease Visit [facility] Start: 11-11-2024 Hepatitis B screening Urine Al bumin:Creatinine Ratio [facility] Start: 11-07-2024 Annual PCP Team Skein Yarn Dyer Helper rai Disease Visit Annual PCP Team Chronic Disease Visit [facility] Start: 11-02-2024 End: 11-02-2024 Patient encounter procedure 11/02/2024 3:00 PM EST Office Visit [facility] [place] [address] [place] [address] Tommy Hardy MD [address] [place] [address] 3 month follow up [facility] [place] Comment on above: 3 month follow up Start: 10-29-2024 Hepatitis B surface antibody level LDL Cholesterol [facility] Start: 10-25-2024 Hemoglobin A1c measurement HbA1C [facility] Start: 10-14-2024 Hemoglobin A1c measurement HbA1C [facility] Start: 10-08-2024 End: 10-08-2024 Patient encounter procedure 10/08/2024 2:45 PM EST Office Visit Pulmonary Medicine [address] [place], [place] [id number] Carly Chandler MD [address] [place] [address] 7 month f/u- review PFT Pulmonary Medicine Comment on above: 7 month f/u- review PFT Start: 10-08-2024 End: 10-08-2024 ambulatory 10/08/2024 2:15 PM EST Procedure PULM [facility] [address] [place] [address] Wstr, Pulm Lab [facility] [address] [place] [address] Moderate COPD (chronic obstructive pulmonary disease) (HCC) [J44.9] [facility] Comment on above: Moderate COPD (chron ic obstructive pulmonary disease) (HCC) [J44.9] Start: 10-05-2024 Annual PCP Team Skein Yarn Dyer Helper rai Disease Visit Annual PCP Team Chronic Disease Visit [facility] Start: 10-01-2024 End: 10-01-2024 Patient encounter procedure Cat Scan Comment on above: yearly LDCT yearly LCS Start: 09-28-2024 Influenza vaccination Lung Cancer Sc shimaning [facility] Start: 09-28-2024 Screening for malign ant neoplasm of lung Lung Cancer Screening [facility] Start: 09-14-2024 Annual PCP Team Skein Yarn Dyer Helper rai Disease Visit Annual PCP Team Chronic Disease Visit [facility] Start: 09-05-2024 Annual PCP Team Skein Yarn Dyer Helper rai Disease Visit Annual PCP Team Chronic Disease Visit [facility] Start: 08-20-2024 End: 08-20-2024 Patient encounter procedure 08/20/2024 2:30 PM EDT Office Visit [facility] [address] [place] [address] Yoly Quiñones PA-C [address] [place] [address] 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 [facility] Comment on above: K75.89 other specifi ed inflammatory liver diseases Start: 08-15-2024 End: 11-14-2024 Iron and Iron binding capacity panel - Serum or Plasma IRON AND TIBC Lab Routine Iron deficiency anemia, unspecified iron deficiency anemia type Expected: 08/15/2024, Expires: 11/14/2024 [facility] Work Phone: Comment on above: Expected: 08/15/2024 , Expires: 11/14/2024 Start: 08-01-2024 End: 10-31-2024 CBC W Auto Differential panel - Blood COMPLETE BLOOD COUNT AND DIFFERENTIAL Lab Routine Iron deficiency anemia, unspecified iron deficiency anemia type Expected: 08/01/2024, Expires: 10/31/2024 [facility] Comment on above: Expected: 08/01/2024 , Expires: 10/31/2024 Start: 07-31-2024 End: 07-31-2025 Cobalamin (Vitamin B12) [Mass/volume] in Serum or Plasma [facility] Comment on above: Expected: 07/31/2024 , Expires: 07/31/2025 Start: 07-31-2024 End: 10-30-2024 Comprehensive metabolic 2000 panel - Serum or Plasma [facility] Comment on above: Expected: 07/31/2024 , Expires: 10/30/2024 Start: 07-31-2024 End: 07-31-2025 Ferritin [Mass/volume] in Serum or Plasma [facility] Comment on above: Expected: 07/31/2024 , Expires: 07/31/2025 Start: 07-31-2024 End: 07-31-2025 Folate [Mass/volume] in Serum or Plasma [facility] Comment on above: Expected: 07/31/2024 , Expires: 07/31/2025 Start: 07-31-2024 End: 07-31-2025 Iron and Iron binding capacity panel - Serum or Plasma [facility] Work Phone: Comment on above: Expected: 07/31/2024 , Expires: 07/31/2025 Start: 07-31-2024 End: 07-31-2024 Patient encounter procedure 07/31/2024 1:40 PM EDT Office Visit Family [facility] [place] [address] [place], [place] [address] Tommy Hardy MD [address] [place] [address] 3 Month follow up [facility] [place] Comment on above: 3 Month follow up Start: 07-22-2024 Covid-19 Vaccine ( season) Covid-19 Vaccine () [facility] Start: 07-22-2024 Influenza vaccination Influenza Vacc ine (#1) [facility] Start: 06-05-2024 End: 06-05-2024 Patient encounter procedure 06/05/2024 10:00 AM EDT Office Visit Vascular Surgery [address] [place], [place] [id number] Marcy Hernandez, [address] [place] [address] Bilateral carotid artery stenosis [I65.23] Vascular Surgery Comment on above: Bilateral carotid ar shelly stenosis [I65.23] Start: 05-19-2024 Hemoglobin A1c measurement HbA1C [facility] Start: 04-18-2024 End: 04-18-2024 Patient encounter procedure 04/18/2024 2:00 PM EDT Office Visit [facility] [place] [address] [place], [place] [id number] Tommy Hardy MD [address] [place], [place] [id number] follow up multiple hospital stays [facility] [place] Comment on above: follow up multiple h ospital stays Start: 02-20-2024 End: 05-21-2024 Hepatic function 2000 panel - Serum or Plasma HEPATIC FUNCTION PNL Lab Routine Elevated liver enzymes Expected: 02/20/2024, Expires: 05/21/2024 [facility] Work Phone: Comment on above: Expected: 02/20/2024 , Expires: 05/21/2024 Start: 02-20-2024 End: 05-21-2024 Platelets [#/volume] in Blood PLTCT (PLATELET COUNT) Lab Routine Thrombocytosis Expected: 02/20/2024, Expires: 05/21/2024 [facility] Work Phone: Comment on above: Expected: 02/20/2024 , Expires: 05/21/2024 Start: 01-28-2024 Hemoglobin A1c measurement HbA1C [facility] Start: 01-27-2024 End: 04-27-2024 Basic metabolic 2000 panel - Serum or Plasma [facility] Work Phone: Comment on above: Expected: 01/27/2024 , Expires: 04/27/2024 Start: 01-27-2024 End: 04-27-2024 Cobalamin (Vitamin B12) [Mass/volume] in Serum or Plasma [facility] Work Phone: Comment on above: Expected: 01/27/2024 , Expires: 04/27/2024 Start: 01-27-2024 End: 04-27-2024 Erythrocyte sedimentation rate [facility] Work Phone: Comment on above: Expected: 01/27/2024 , Expires: 04/27/2024 Start: 01-27-2024 End: 04-27-2024 Folate [Mass/volume] in Serum or Plasma [facility] Work Phone: Comment on above: Expected: 01/27/2024 , Expires: 04/27/2024 Start: 01-27-2024 End: 04-27-2024 SYPHILIS TOTAL W/REFLEX [facility] Work Phone: Comment on above: Expected: 01/27/2024 , Expires: 04/27/2024 Start: 01-14-2024 Covid-19 Vaccine ( season) Covid-19 Vaccine () [facility] Start: 01-12-2024 End: 04-12-2024 CBC W Auto Differential panel - Blood CBC + DIFF Lab Routine Leukocytosis, unspecified type Elevated liver enzymes Expected: 01/12/2024, Expires: 04/12/2024 [facility] Work Phone: Comment on above: Expected: 01/12/2024 , Expires: 04/12/2024 Start: 01-12-2024 End: 04-12-2024 Hepatic function 2000 panel - Serum or Plasma HEPATIC FUNCTION PNL Lab Routine Leukocytosis, unspecified type Elevated liver enzymes Expected: 01/12/2024, Expires: 04/12/2024 [facility] Work Phone: Comment on above: Expected: 01/12/2024 , Expires: 04/12/2024 Start: 01-11-2024 End: 04-11-2024 Basic metabolic 2000 panel - Serum or Plasma [facility] Work Phone: Comment on above: Expected: 01/11/2024 , Expires: 04/11/2024 Start: 12-07-2023 Hemoglobin A1c/Hemoglobin.total in Blood HbA1C [facility] Start: 11-21-2023 Advance Directive Discussion Advance Directive Discussion [facility] Start: 11-10-2023 ANNUAL PCP TEAM MAINTENANCE TEAM LEADER RAI DISEASE VISIT ANNUAL PCP TEAM CHRONIC DISEASE VISIT [facility] Start: 10-22-2023 ANNUAL PCP TEAM MAINTENANCE TEAM LEADER RAI DISEASE VISIT ANNUAL PCP TEAM CHRONIC DISEASE VISIT [facility] Start: 10-21-2023 Glaucoma screening Dilated Retinal E xam [facility] Start: 10-21-2023 Hepatitis C antibody , confirmatory test DILATED RETINAL EXAM [facility] Start: 10-05-2023 End: 01-04-2024 CBC W Auto Differential panel - Blood CBC + DIFF Lab Routine Controlled type 2 diabetes mellitus without complication, without long-term current use of insulin (HCC) Expected: 10/05/2023, Expires: 01/04/2024 [facility] Work Phone: Comment on above: Expected: 10/05/2023 , Expires: 01/04/2024 Start: 10-05-2023 End: 01-04-2024 Comprehensive metabolic 2000 panel - Serum or Plasma COMP METABOLIC PANEL Lab Routine Controlled type 2 diabetes mellitus without complication, without long-term current use of insulin (HCC) Hyperlipidemia, unspecified hyperlipidemia type Expected: 10/05/2023, Expires: 01/04/2024 [facility] Work Phone: Comment on above: Expected: 10/05/2023 , Expires: 01/04/2024 Start: 10-05-2023 End: 01-04-2024 Hemoglobin A1c in Blood HGB A1C Lab Routine Controlled type 2 diabetes mellitus without complication, without long-term current use of insulin (HCC) Expected: 10/05/2023, Expires: 01/04/2024 [facility] Work Phone: Comment on above: Expected: 10/05/2023 , Expires: 01/04/2024 Start: 10-05-2023 End: 01-04-2024 Lipid 1996 panel - Serum or Plasma LIPID PANEL BASIC Lab Routine Controlled type 2 diabetes mellitus without complication, without long-term current use of insulin (HCC) Hyperlipidemia, unspecified hyperlipidemia type Expected: 10/05/2023, Expires: 01/04/2024 [facility] Work Phone: Comment on above: Expected: 10/05/2023 , Expires: 01/04/2024 Start: 09-06-2023 Influenza vaccination LUNG CANCER SC REENING [facility] Start: 09-03-2023 ANNUAL PCP TEAM MAINTENANCE TEAM LEADER RAI DISEASE VISIT ANNUAL PCP TEAM CHRONIC DISEASE VISIT [facility] Start: 08-20-2023 3 comp foot exam completed DIABETIC FOOT EXAM [facility] Start: 08-20-2023 ANNUAL PCP TEAM MAINTENANCE TEAM LEADER RAI DISEASE VISIT ANNUAL PCP TEAM CHRONIC DISEASE VISIT [facility] Start: 08-20-2023 Diabetic foot examination Diabetic F oot Exam [facility] Start: 08-17-2023 Hepatitis B screening URINE AL BUMIN:CREATININE RATIO [facility] Start: 07-22-2023 Covid-19 Vaccine ( season) Covid-19 Vaccine () [facility] Start: 07-22-2023 Influenza vaccination C [facility] Start: 06-24-2023 ANNUAL PCP TEAM MAINTENANCE TEAM LEADER RAI DISEASE VISIT ANNUAL PCP TEAM CHRONIC DISEASE VISIT [facility] Start: 06-15-2023 ANNUAL PCP TEAM MAINTENANCE TEAM LEADER RAI DISEASE VISIT ANNUAL PCP TEAM CHRONIC DISEASE VISIT [facility] Start: 06-15-2023 Hepatitis B screening URINE AL BUMIN:CREATININE RATIO [facility] Start: 02-17-2023 End: 04-19-2023 ALBUMIN/CREAT RATIO RND UR ALBUMIN/CREAT RATIO RND UR Lab Routine Controlled type 2 diabetes mellitus without complication, without long-term current use of insulin (HCC) Expected: 02/17/2023, Expires: 04/19/2023 [facility] Work Phone: Comment on above: Expected: 02/17/2023 , Expires: 04/19/2023 Start: 02-17-2023 End: 04-19-2023 CBC W Auto Differential panel - Blood CBC + DIFF Lab Routine Controlled type 2 diabetes mellitus without complication, without long-term current use of insulin (HCC) Expected: 02/17/2023, Expires: 04/19/2023 [facility] Work Phone: Comment on above: Expected: 02/17/2023 , Expires: 04/19/2023 Start: 02-17-2023 End: 04-19-2023 Comprehensive metabolic 2000 panel - Serum or Plasma COMP METABOLIC PANEL Lab Routine Controlled type 2 diabetes mellitus without complication, without long-term current use of insulin (HCC) Expected: 02/17/2023, Expires: 04/19/2023 [facility] Work Phone: Comment on above: Expected: 02/17/2023 , Expires: 04/19/2023 Start: 02-17-2023 End: 04-19-2023 Hemoglobin A1c in Blood HGB A1C Lab Routine Controlled type 2 diabetes mellitus without complication, without long-term current use of insulin (HCC) Expected: 02/17/2023, Expires: 04/19/2023 [facility] Work Phone: Comment on above: Expected: 02/17/2023 , Expires: 04/19/2023 Start: 02-17-2023 End: 04-19-2023 Lipid 1996 panel - Serum or Plasma LIPID PANEL BASIC Lab Routine Controlled type 2 diabetes mellitus without complication, without long-term current use of insulin (HCC) Expected: 02/17/2023, Expires: 04/19/2023 [facility] Work Phone: Comment on above: Expected: 02/17/2023 , Expires: 04/19/2023 Start: 02-17-2023 End: 04-19-2023 Thyrotropin [Units/volume] in Serum or Plasma TSH BLD Lab Routine Hyperlipidemia, unspecified hyperlipidemia type Expected: 02/17/2023, Expires: 04/19/2023 [facility] Work Phone: Comment on above: Expected: 02/17/2023 , Expires: 04/19/2023 Start: 02-15-2023 ANNUAL PCP TEAM MAINTENANCE TEAM LEADER RAI DISEASE VISIT ANNUAL PCP TEAM CHRONIC DISEASE VISIT [facility] Start: 02-14-2023 Hemoglobin A1c/Hemoglobin.total in Blood HBA1C [facility] Start: 02-03-2023 Hepatitis B surface antibody level LDL CHOLESTEROL [facility] Start: 12-31-2022 COVID-19 VACCINE (5 - Pfizer series) COVID-19 VACCINE (5 - Pfizer series) [facility] Start: 11-21-2022 ADVANCE DIRECTIVE DISCUSSION ADVANCE DIRECTIVE DISCUSSION [facility] Start: 09-03-2022 End: 11-03-2022 Basic metabolic 2000 panel - Serum or Plasma [facility] Work Phone: Comment on above: Expected: 09/03/2022 , Expires: 11/03/2022 Start: 09-03-2022 End: 11-03-2022 Natriuretic peptide.B prohormone N-Terminal [Mass/volume] in Serum or Plasma [facility] Work Phone: Comment on above: Expected: 09/03/2022 , Expires: 11/03/2022 Start: 08-18-2022 End: 10-18-2022 ALBUMIN/CREAT RATIO RND UR ALBUMIN/CREAT RATIO RND UR Lab Routine Controlled type 2 diabetes mellitus without complication, without long-term current use of insulin (HCC) Expected: 08/18/2022, Expires: 10/18/2022 [facility] Work Phone: Comment on above: Expected: 08/18/2022 , Expires: 10/18/2022 Start: 08-18-2022 End: 10-18-2022 Basic metabolic 2000 panel - Serum or Plasma BASIC METABOLIC PNL Lab Routine Controlled type 2 diabetes mellitus without complication, without long-term current use of insulin (HCC) Expected: 08/18/2022, Expires: 10/18/2022 [facility] Work Phone: Comment on above: Expected: 08/18/2022 , Expires: 10/18/2022 Start: 08-18-2022 End: 10-18-2022 Hemoglobin A1c/Hemoglobin.total in Blood HGB A1C Lab Routine Controlled type 2 diabetes mellitus without complication, without long-term current use of insulin (HCC) Expected: 08/18/2022, Expires: 10/18/2022 [facility] Work Phone: Comment on above: Expected: 08/18/2022 , Expires: 10/18/2022 Start: 08-12-2022 3 comp foot exam completed DIABETIC FOOT EXAM [facility] Start: 08-06-2022 Hemoglobin A1c/Hemoglobin.total in Blood HBA1C [facility] Start: 08-05-2022 Hepatitis B screening URINE AL BUMIN:CREATININE RATIO [facility] Start: 07-22-2022 Influenza vaccination INFLUENZA (#1) [facility] Start: 06-16-2022 End: 08-16-2022 Hemoglobin A1c in Blood HGB A1C Lab Routine Controlled type 2 diabetes mellitus without complication, without long-term current use of insulin (HCC) Expected: 06/16/2022, Expires: 08/16/2022 [facility] Work Phone: Comment on above: Expected: 06/16/2022 , Expires: 08/16/2022 Start: 01-10-2022 COVID-19 VACCINE (4 - Booster for Pfizer series) COVID-19 VACCINE (4 - Booster for Pfizer series) [facility] Start: 11-21-2021 ADVANCE DIRECTIVE DISCUSSION ADVANCE DIRECTIVE DISCUSSION [facility] Start: 11-04-2021 COVID-19 VACCINE (4 - Booster for Pfizer series) COVID-19 VACCINE (4 - Booster for Pfizer series) [facility] Start: 08-21-2021 PNEUMOCOCCAL: 65+ (2 - PCV) PNEUMOCOCCAL: 65+ (2 - PCV) [facility] Start: 08-05-2021 Hepatitis C antibody , confirmatory test DILATED RETINAL EXAM [facility] Start: 08-07-2020 Urine microalbumin profile [facility] Start: 2014 Hepatitis B Vaccine (1 of 3 - Risk 3-dose series) Hepatitis B Vaccine (1 of 3 - Risk 3-dose series) [facility] Start: 1999 COLOGUARD (FIT-DNA) COLOGUARD (FIT-D NA) [facility] Start: [address] COLONOGRAPHY [facility] Start: 1999 FECAL OCCULT BLOOD FECAL OCCULT BLOO D [facility] Start: 1999 Screening for malign ant neoplasm of colon [facility] Start: 1999 SIGMOIDOSCOPY SIGMOIDOSCOPY [facility] Start: 1984 Zoledronic acid therapy ALPHA- 1 ANTITRYPSIN DEFICIENCY SCREENING [facility] Start: 1972 Anxiety Screening Anxiety Screening [facility] Clostridioides diffi cile toxin genes [Presence] in Stool by MAURICIO with probe detection C. DIFFICILE PCR Lab Routine Diarrhea, unspecified type Ordered: 07/09/2024 [facility] Work Phone: Comment on above: Ordered: 07/09/2024 End: 10-19-2024 CT LUNG SCREEN WO IVCON CT LUNG SCREEN WO IVCON Radiology Routine Former cigarette smoker 1 Occurrences starting 09/20/2023 until 10/19/2024 [facility] Work Phone: Comment on above: 1 Occurrences starti ng 09/20/2023 until 10/19/2024 End: 10-28-2024 CT LUNG SCREEN WO IVCON CT LUNG SCREEN WO IVCON Radiology Routine Personal history of tobacco use, presenting hazards to health 1 Occurrences starting 09/29/2023 until 10/28/2024 [facility] Work Phone: Comment on above: 1 Occurrences starti ng 09/29/2023 until 10/28/2024 End: 09-06-2022 Ct thorax w/o contrast material [facility] Work Phone: Comment on above: 1 Occurrences starti ng 09/06/2022 until 09/06/2022 End: 09-19-2023 Dup-scan artl danis abdl/pel/scrot&/rpr orgn lmt US DOPPLER AORTA Radiology Routine Abdominal aortic aneurysm (AAA) without rupture (HCC) 1 Occurrences starting 08/20/2022 until 09/19/2023 [facility] Work Phone: Comment on above: 1 Occurrences starti ng 08/20/2022 until 09/19/2023 End: 10-13-2024 Dup-scan artl danis abdl/pel/scrot&/rpr orgn lmt US DOPPLER AORTA Radiology Routine Abdominal aortic aneurysm (AAA) without rupture, unspecified part (HCC) 1 Occurrences starting 09/14/2023 until 10/13/2024 [facility] Work Phone: Comment on above: 1 Occurrences starti ng 09/14/2023 until 10/13/2024 ENTERIC BACTERIAL PA KEVIN BY PCR ENTERIC BACTERIAL PANEL BY PCR Lab Routine Diarrhea, unspecified type Ordered: 07/09/2024 [facility] Comment on above: Ordered: 07/09/2024 End: 09-03-2023 EXERCISE STRESS ECG (WITHOUT IMAGING) EXERCISE STRESS ECG (WITHOUT IMAGING) Cardiology Routine SOB (shortness of breath) 1 Occurrences starting 09/03/2022 until 09/03/2023 [facility] Work Phone: Comment on above: 1 Occurrences starti ng 09/03/2022 until 09/03/2023 End: 10-03-2023 LUNG DIFFUSION CAPACITY (DLCO) LUNG DIFFUSION CAPACITY (DLCO) PFT Routine SOB (shortness of breath) 1 Occurrences starting 09/03/2022 until 10/03/2023 [facility] Work Phone: Comment on above: 1 Occurrences starti ng 09/03/2022 until 10/03/2023 End: 10-03-2023 LUNG VOLUMES LUNG VOLUMES PFT Routine SOB (shortness of breath) 1 Occurrences starting 09/03/2022 until 10/03/2023 [facility] Work Phone: Comment on above: 1 Occurrences starti ng 09/03/2022 until 10/03/2023 LUNG VOLUMES LUNG VOLUMES PFT Routine SOB (shortness of breath) 09/06/2022 10:01 AM EDT [facility] Work Phone: End: 10-03-2023 SPIROMETRY WITH DILATOR IF OBSTRUCTED SPIROMETRY WITH DILATOR IF OBSTRUCTED PFT Routine SOB (shortness of breath) 1 Occurrences starting 09/03/2022 until 10/03/2023 [facility] Work Phone: Comment on above: 1 Occurrences starti ng 09/03/2022 until 10/03/2023 SPIROMETRY WITH DILA TOR IF OBSTRUCTED SPIROMETRY WITH DILATOR IF OBSTRUCTED PFT Routine SOB (shortness of breath) 09/06/2022 10:01 AM EDT [facility] Work Phone: End: 04-19-2025 SPIROMETRY WITH DILATOR IF OBSTRUCTED SPIROMETRY WITH DILATOR IF OBSTRUCTED PFT Routine Moderate COPD (chronic obstructive pulmonary disease) (HCC) 1 Occurrences starting 03/20/2024 until 04/19/2025 [facility] Work Phone: Comment on above: 1 Occurrences starti ng 03/20/2024 until 04/19/2025 End: 08-20-2023 US CAROTID ARTERIES [facility] US CAROTID ARTERIES [facility] Vascular Lab Routine Bilateral carotid artery stenosis 1 Occurrences starting 08/20/2022 until 08/20/2023 [facility] Work Phone: Comment on above: 1 Occurrences starti ng 08/20/2022 until 08/20/2023 End: 09-19-2023 Us retroperitoneal real time w/image limited US ABD AORTA Radiology Routine Abdominal aortic aneurysm (AAA) without rupture (HCC) 1 Occurrences starting 08/20/2022 until 09/19/2023 [facility] Work Phone: Comment on above: 1 Occurrences starti ng 08/20/2022 until 09/19/2023 End: 10-13-2024 Us retroperitoneal real time w/image limited US ABD AORTA Radiology Routine Abdominal aortic aneurysm (AAA) without rupture, unspecified part (HCC) 1 Occurrences starting 09/14/2023 until 10/13/2024 [facility] Work Phone: Comment on above: 1 Occurrences starti ng 09/14/2023 until 10/13/2024 End: 07-17-2025 XR Knee - left 4 Views XR KNEE GENERAL 4V AP BOTH/PA BOTH/LAT/MERC LEFT Radiology STAT Acute pain of left knee 1 Occurrences starting 06/17/2024 until 07/17/2025 [facility] Work Phone: Comment on above: 1 Occurrences starti ng 06/17/2024 until 07/17/2025 [facility] Immunizations Immunization Date Immunization Notes Care Provider Fa [facility] 11-02-2023 tetanus toxoid, redu nathan diphtheria toxoid, and acellular pertussis vaccine, adsorbed Tommy Hardy MD Work Phone: [facility] 08-24-2023 influenza (HD-IIV4) vaccine, age 65+ yr, high dose, quadrivalent, PF (FLUZONE HIGH-DOSE) Tommy Hardy MD Work Phone: [facility] 08-24-2023 respiratory syncytia l virus (RSV) vaccine, adjuvanted (AREXVY) Tommy Hardy MD Work Phone: [facility] 08-24-2023 influenza virus vacc ine, unspecified formulation Tommy Hardy MD Work Phone: [facility] 08-20-2022 influenza, high-dose , quadrivalent vaccine (FLUZONE HIGH DOSE QUADRIVALENT) Tommy Hardy MD Work Phone: [facility] 08-20-2022 pneumococcal (PCV20) vaccine, 20 valent (PREVNAR 20) Tommy Hardy MD Work Phone: [facility] 08-20-2022 pneumococcal Conjuga te, unspecified formulation Tommy Hardy MD Work Phone: [facility] Work Phone: 08-20-2022 influenza virus vacc ine, unspecified formulation Carly Chandler MD Work Phone: [facility] 09-09-2021 influenza (HD-IIV4) vaccine, age 65+ yr, high dose, quadrivalent, PF (FLUZONE HIGH-DOSE) Tommy Hardy MD Work Phone: [facility] 09-09-2021 influenza, high dose seasonal, preservative-free Tommy Hardy MD Work Phone: [facility] 02-12-2021 COVID-19 vaccine, ag e 12+ yr (PFIZER-BIONTECH - PURPLE TOP) Tommy Hardy MD Work Phone: [facility] 01-22-2021 COVID-19 vaccine, ag e 12+ yr (PFIZER-BIONTECH - PURPLE TOP) Tommy Hardy MD Work Phone: [facility] 08-21-2020 influenza, high-dose , quadrivalent vaccine (FLUZONE HIGH DOSE QUADRIVALENT) Tommy Hardy MD Work Phone: [facility] 08-21-2020 pneumococcal polysaccharide vaccine, 23 valent Tommy Hardy MD Work Phone: [facility] 12-30-2019 zoster vaccine recombinant Tommy Hardy MD Work Phone: [facility] 10-18-2019 zoster vaccine recombinant Tommy Hardy MD Work Phone: [facility] 09-14-2019 influenza, high dose seasonal, preservative-free oTmmy Hardy MD Work Phone: [facility] 09-14-2019 zoster vaccine recombinant Tommy Hardy MD Work Phone: [facility] 10-04-2018 influenza, injectabl e, quadrivalent, contains preservative Tommy Hardy MD Work Phone: [facility] 09-01-2017 influenza, injectabl e, quadrivalent, contains preservative Tommy Hardy MD Work Phone: [facility] 09-21-2016 influenza, injectabl e, quadrivalent, contains preservative Tommy Hardy MD Work Phone: [facility] Work Phone: 10-30-2015 influenza, injectabl e, quadrivalent, contains preservative Tommy Hardy MD Work Phone: [facility] 10-31-2014 influenza, seasonal, injectable Tommy Hardy MD Work Phone: [facility] 10-31-2014 zoster vaccine, live Tommy Hardy MD Work Phone: [facility] 09-27-2012 influenza virus vacc ine, unspecified formulation Tommy Hardy MD Work Phone: [facility] 09-21-2011 influenza virus vacc ine, unspecified formulation Tommy Hardy MD Work Phone: [facility] Work Phone: 08-07-2010 pneumococcal polysaccharide vaccine, 23 valent Tommy Hardy MD Work Phone: [facility] Work Phone: 08-07-2010 tetanus toxoid, redu nathan diphtheria toxoid, and acellular pertussis vaccine, adsorbed Tommy Hadry MD Work Phone: [facility] Work Phone: 10-11-2007 influenza virus vacc ine, unspecified formulation Tommy Hardy MD Work Phone: [facility] Work Phone: Payers Date Payer Category Payer Medicare [id number] 2019 Medicare MEDICARE MEDICAR E A AND B [id number] 2019-Present [phone] [place] [address] Medicare [id number] 2019 Medicare [id number] 2001 Unknown [employer]UAN J [employer] PPO [id number] 2001-2021 [id number] [place] [address] PPO [id number] Social History Date Type Detail Facility Start: 05-01-2021 End: 09-20-2023 Tobacco smoking status NHIS Ex-smoker [facility] Start: 09-01-1973 End: 09-01-2023 History of tobacco use Cigarette Smoker [facility] Start: 05-01-2021 End: 05-02-2023 Cigarettes smoked current (pack per day) - Reported 0.5 [facility] Start: 05-01-2021 End: 07-09-2024 Tobacco use and exposure Smokeless tobacco non-user [facility] Start: 02-15-2022 End: 09-14-2023 Alcohol intake Current drinker of alcohol (finding) [facility] Start: 04-27-2021 End: 10-21-2022 History SDOH Alcohol Frequency 2 [facility] Start: 04-27-2021 End: 10-21-2022 History SDOH Alcohol Std Drinks 1 [facility] Start: 04-05-2017 History SDOH Alcohol Comment occasionally beer or liquor [facility] Start: 04-27-2021 End: 10-21-2022 History SDOH Social Connections Phone 3 [facility] Start: 04-27-2021 History SDOH Physical Activity MPS 0 [facility] Start: 04-27-2021 Education 17 [facility] Start: 1955 Sex Assigned At Male [facility] Start: 02-05-2022 End: 10-22-2022 Exposure to SARS-CoV-2 (event) Not sure [facility] End: 09-01-2023 History of tobacco use Current smoker [facility] Start: 10-22-2022 Tobacco Comment Quit 2020 [facility] Start: 12-28-2022 End: 05-02-2023 Tobacco smoking status TXIS Occasional tobacco smoker [facility] Work Phone: Start: 12-28-2022 Tobacco Comment Restarted smoking over the holidays [facility] Start: 10-21-2022 End: 05-02-2023 Alcohol Use Disorder Identification Test - Consumption [AUDIT-C] [facility] How often to you hav e a drink containing alcohol? Monthly or less [facility] How many standard dr inks containing alcohol do you have on a typical day? 1 or 2 [facility] How often do you hav e 6 or more drinks on 1 occasion? Never [facility] Adult Depression Scr eening Assessment 0 [facility] Do you feel stress - tense, restless, nervous, or anxious, or unable to sleep at night because your mind is troubled all the time - these days [OSQ] To some extent [facility] In the past 12 month s, was there a time when you were not able to pay the mortgage or rent on time? No [facility] Start: 05-02-2023 Tobacco Comment Less than 1ppd 05/02/23 [facility] Start: 04-27-2021 Gender identity Identifies as male gender (finding) [facility] Start: 04-27-2021 Sexual orientation Heterosexual (finding) [facility] Do you belong to any clubs or organizations such as advent groups, unions, fraternal or athletic groups, or school groups? Yes [facility] Are you now , , , , never or living with a partner? [facility] (I/We) worried wheth er (my/our) food would run out before (I/we) got money to buy more. Never true [facility] Start: 09-15-2023 End: 07-31-2024 Alcohol intake Ex-drinker (finding) [facility] Start: 09-15-2023 Tobacco Comment Less than 1ppd 05/02/23Quit 09/01/2023 [facility] Start: 09-20-2023 Tobacco Comment Quit 09/01/2023 [facility] Do you feel stress - tense, restless, nervous, or anxious, or unable to sleep at night because your mind is troubled all the time - these days [OSQ] Only a little [facility] Start: 09-01-1973 End: 07-09-2024 Tobacco smoking status NHIS Smokes tobacco daily [facility] Medical Equipment Procedure Code Equipment Code Equipment Original Text Equipment Identifier Dates [id number], [id number], [id number], [id number] Start: 07-29-2010 End: 03-12-2024 Comment on above: Test blood sugar(s) 2 times daily. Dx: Type 2 DM - Controlled E11.9 Insulin: Yes Use one pen needle f our times daily Test Blood sugar onc e daily. 250.02 Clinical Notes 10-12-2011 to 08-03-2024 Telephone Encounter - Alicia Reyes LPN - 08/03/2024 9:51 AM EDTTelephone Encounter - Alicia Reyes LPN - 08/03/2024 9:51 AM EDTTelephone Encounter - Tommy Hardy MD - 08/03/2024 9:30 AM EDT Note Date & Type Note Facility 08-03-2024 Telephone encounter Note Spoke with and she is going to try some things over the weekend and monitor patient. [facility] 08-03-2024 Miscellaneous Notes Spoke with and she is going to try some things over the weekend and monitor patient. Hold iron. If worsens, can consider er eval Spouse calls to report that patient continues to have diarrhea (taking Creon, no Imodium) but is now having nausea and sweating. Reports that patient took last dose of prednisone this morning that is ordered by Dr. Hannon. BS are running high (no specific readings given when asked just high 200 range and above). Scheduled to see Dr. Hannon in several weeks for GI testing. Asking about Nausea: NAUSEA SEVERITY: - MILD: loss of appetite without change in eating habits to - MODERATE: decreased oral intake without significant weight loss, dehydration, or malnutrition 2. ONSET: Started yesterday mid afternoon after taking iron for the first time. Resolved at dinner time. Woke up this morning again feeling nauseous. Hasn't taken iron supplement. 3. VOMITING: No 4. RECURRENT SYMPTOM: No 5. CAUSE: Spouse questioning if it could be the iron causing the nausea. Recommended that patient take iron with crackers but d/t nausea patient is not able to do that this morning. Spouse asking for any further recommendations. Please review and advise, Ana María Mcgee RN documented in this encounter [facility] 08-03-2024 Telephone encounter Note Hold iron. If worsens, can consider er eval [facility] 08-03-2024 Telephone encounter Note Spouse calls to report that patient continues to have diarrhea (taking Creon, no Imodium) but is now having nausea and sweating. Reports that patient took last dose of prednisone this morning that is ordered by Dr. Hannon. BS are running high (no specific readings given when asked just high 200 range and above). Scheduled to see Dr. Hannon in several weeks for GI testing. Asking about Nausea: NAUSEA SEVERITY: - MILD: loss of appetite without change in eating habits to - MODERATE: decreased oral intake without significant weight loss, dehydration, or malnutrition 2. ONSET: Started yesterday mid afternoon after taking iron for the first time. Resolved at dinner time. Woke up this morning again feeling nauseous. Hasn't taken iron supplement. 3. VOMITING: No 4. RECURRENT SYMPTOM: No 5. CAUSE: Spouse questioning if it could be the iron causing the nausea. Recommended that patient take iron with crackers but d/t nausea patient is not able to do that this morning. Spouse asking for any further recommendations. Please review and advise, Ana María Mcgee RN [facility] 08-01-2024 Telephone encounter Note Patient returned call and went over results, notes from Dr Hardy with understanding. Aware rx sent to pharmacy. Patient said no date set for Colonoscopy. Printed lab results and faxed to Dr Hannon [phone] as requested. [facility] 08-01-2024 Miscellaneous Notes Patient returned call and went over results, notes from Dr Hardy with understanding. Aware rx sent to pharmacy. Patient said no date set for Colonoscopy. Printed lab results and faxed to Dr Hannon [phone] as requested. Message left for return call. Kathryn Kirk MA White count is up. Likely is due to the prednisone he is on for his colon. Not anemic, however, his iron is low. Can be due to slow blood loss due to his colitis. Recheck cbc when off of prednisone in a few weeks. Add iron once a day. Send copy of labs to Dr. Hannon his line closer. Verify when colonoscopy is planned which likely needs done with this as well. documented in this encounter [facility] 08-01-2024 Telephone encounter Note Message left for return call. Kathryn Kirk MA [facility] 08-01-2024 Telephone encounter Note White count is up. Likely is due to the prednisone he is on for his colon. Not anemic, however, his iron is low. Can be due to slow blood loss due to his colitis. Recheck cbc when off of prednisone in a few weeks. Add iron once a day. Send copy of labs to Dr. Hannon his line closer. Verify when colonoscopy is planned which likely needs done with this as well. [facility] 07-31-2024 History of Present illness Narrative Patient presents with: Follow Up HPI: Patient presents today for office visit for 3 month follow up. Recently saw Tyra Bubba for foul smelling bouts of diarrhea and black stool. Work up neg for C-diff. Recommended he follow up with Dr. Hannon and try otc imodium. Seen in [facility] ER on 07/20/24 for continued diarrhea symptoms. Case discussed with Dr. Hannon while in ER. Started on Prednisone 20 mg daily. Given a dose of Solu-medrol and sent home with Rx for Creon for his digestion. He feels he has pancreatic insufficiency. Seems as if it is slowly helping. Still with some diarrhea. States just within the last couple days stool has become more formed but still soft. Follow up with Gastro scheduled on 08/20/24 in [place]. They are considering doing a core biopsy of the pancreas. Dr. Hannon is considering taking out his stent and doing a colonoscopy. No black or bloody stools. CVA: Follows with Dr. Islas. [facility]. Last OV 07/12/24. Complaints of fatigue. Given B-12 1000 mcg while in office. If beneficial will continue monthly injections. Supposed to schedule to see Dr. Cortez, Oncology. Has not scheduled. Sees Pulmonary. Denies chest pain and shortness of breath. Denies any urinary symptoms. Doing well since TURP. Continues on Finasteride. DM: Follows with Endo. Dr. Hansen. Using Cayden. Sugars have been up due to Prednisone. Seeing Endo on 08/02/24. No chest pain or shortness of breath. HLD: No myalgias. CALLI is stable Has frequent falls. He finished his therapy. Using a cane. Last fall was in June. Fractured his knee cap. Fractured his knee cap. Sees ortho on Tuesday and doing ok. Still taking effexor. Note was copied and pasted, without alteration from: previous ov with me 04/13_ CALLI: Using CPAP nightly. Benefiting from use. Sleeping good through the night. No snoring. Feeling rested when waking. Some daytime fatigue where he feels he could take a nap. Still follows with PT twice a week. Other 3 days he exercises at [employer]. Doing well. Is doing much better. No new neuro issues. Had TURP with Dr. Church on 03/02/24 Had post-op visit on 03/12/24 Doing better No longer self cath Urine is flowing. Denies chest pain and shortness of breath. GASTROENTEROLOGY is following his his pancreatic markers, CA 9-19. They are considering changing his stent to a permanent one. Labs are much better. Seeing endo, Dr. Hansen. Using his cayden. Sugars are improving. Has had some hoarseness since surgery. Offered ent when available. See previous office note: Admitted into [facility] 02/02/24 Discharged 02/06/24 Upper GI performed. Clogged stent. Replaced stent in bile duct. Liver biopsies on 02/03/24. Had cholecystectomy 02/04/24. Went home with urinary catheter Followed up with Urology on 02/14/24 Catheter removed. Went into retention. Currently has urinary catheter. They are considering a turp. Did have a liver biopsy He wants his catheter removed. Bowels are moving. Incision are doing well. Sees surgery again next week. Sees Dr Hansen in two weeks. Using sliding scale insulin. Lowest sugars were 110. Can be 140 and 187. Only eating one or two meals a day. Discussed eating three times a day. Will call Tuesday with sugars to adjust. MEDICATIONS: Current Outpatient Medications Medication Sig colestipol (COLESTID) 1 gram tablet Take 2 g by mouth two times a day. CREON 3,000-9,500- 15,000 unit delayed release capsule Take 1 capsule by mouth once daily. predniSONE (DELTASONE) 20 mg tablet Take 1 tablet by mouth every afternoon. insulin lispro (HUMALOG KWIKPEN INSULIN) 100 unit/mL Inject 20 Units subcutaneously three times a day before meals. With sliding scale and 10 units with snacks. venlafaxine ER (EFFEXOR XR) 150 mg 24 hr capsule Take 1 capsule by mouth once daily. insulin needles, DISPOSABLE, (EASY TOUCH) 31 gauge x 5/16 Use one pen needle four times daily Blood-Glucose Meter,Continuous (FREESTYLE CAYDEN 3 READER) misc Injecting three times a day insulin. finasteride (PROSCAR) 5 mg tablet Take 5 mg by mouth once daily. insulin glargine 100 unit/mL (3 mL) Inject 52 Units subcutaneously daily at bedtime. (Patient taking differently: Inject 45 Units subcutaneously daily at bedtime.) atorvastatin (LIPITOR) 80 mg tablet TAKE 1 TABLET DAILY AT BEDTIME FOR CHOLESTEROL mbzygxbmeyi-dmgeldceo-rdedawax (TRELEGY ELLIPTA) 100-62.5-25 mcg inhalation powder Inhale 1 Puff as instructed once daily. Blood-Glucose Sensor (eFansSTYLE CAYDEN 3 SENSOR) ramon Use as directed. Testing bid and prn. Has had hypoglycemia tamsulosin (FLOMAX) 0.4 mg Take 0.8 mg by mouth two times a day. CPAP Initiate Auto PAP @ 5-20 cm of water with humidification. Mask (per patient preference) optional chin strap (if indicated) , filters, tubing, humidifier and lifetime supplies. Replacement Machine. blood sugar diagnostic (BLOOD GLUCOSE TEST) test [...] Reactions Metformin Diarrhea Penicillins PAST MEDICAL HISTORY 08/19/2005: ANXIETY STATE NOS Comment: Controlled with effexor 2011: Benign neoplasm of colon No date: Dysmetabolic syndrome X No date: Hyperlipidemia No date: Lung nodule Comment: nodule no longer seen in 2016 No date: CALLI on CPAP No date: Other specified disorder of penis Comment: erectile dysfunction 04/06/2006: PERS HX TOBACCO USE Comment: Cigarettes 1.5 PPD No date: Psoriasis No date: Skin cancer 09/04/2023: Stroke (HCC) No date: Tobacco use disorder 08/07/2010: Type II or unspecified type diabetes mellitus without mention of complication, uncontrolled Comment: Diagnosed 07/2010 PAST SURGICAL HISTORY 12/08/2010: COLONOSCOPY FLX DX W/COLLJ SPEC WHEN PFRMD Comment: Colonoscopy, due 201310/06/2021: COLONOSCOPY FLX DX W/COLLJ SPEC WHEN PFRMD 07/14/2010: CT BRAIN Comment: neg, white matter changes associated with small vessel disease 07/01/2015: CT CHEST W IVCON Comment: resolution pleural effusion; small pleural based nodule, decrease right hilar lymphadenopathy, mild emphysema 02/17/2015: CTA CHEST Comment: No PE; right hium atelectasis vs small nodule, right hilar lymphadenopathy; right pleural effusion 2011: EXTER CAROTIDS UNI Comment: NEGATIVE No date: EYE SURGERY HX 07/20/2011: NM CARDIAC PERF STRESS/EXERCISE Comment: WNL 1961: PAST SURGICAL HISTORY OF Comment: Testicular as child 07/13/2012: PAST SURGICAL HISTORY OF Comment: Right rotator cuff No date: REMOVAL GALLBLADDER 01/2011, 02/2011: RMVL LENS MATERIAL PHACOFRAGMENTATION ASPIR Comment: Cataract Extraction bilateral No date: SKIN BIOPSY HX 2003: SPHINCTEROTOMY ANAL DIVISION SPHINCTER SPX No date: TRANSURETHRAL ELEC-SURG PROSTATECTOM FAMILY HISTORY Problem Relation Age of Onset Cancer Mother Breast Cancer, thyroid Alzheimer's Disease Father Allergies Father other (Pre diabetes) Brother Allergies Brother Social History Tobacco Use Smoking status: Every Day Current packs/day: 0.00 Average packs/day: 1 pack/day for 50.0 years (50.0 ttl pk-yrs) Types: Cigarettes Start date: 09/01/1973 Last attempt to quit: 09/01/2023 Years since quittin.9 Smokeless tobacco: Never Tobacco comments: Quit 09/01/2023 Vaping Use Vaping status: Never Used Substance Use Topics Alcohol use: Not Currently Drug use: Yes Frequency: 2.0 times per week Comment: Marijuana couple times a week. Reviewed current medications, allergies, past medical history, surgical history, family history and social history today. REVIEW OF SYSTEMS All other reviewed and negative other than HPI. HEALTH MAINTENANCE: Reviewed health maintenance issues today and recommended the following in detail. Anxiety Screening Never done Covid-19 Vaccine(2022- season) due on 07/22/2024 Influenza Vaccine(1) due on 07/22/2024 VITALS: BP 124/50 Pulse 71 Ht 180.3 cm (5' 11 ) Wt 94.2 kg (207 lb 9.6 oz) SpO2 96% BMI 28.95 kg/m Last 4 Encounter Wt Readings: Date: Wt: 07/09/2024 95.3 kg (210 lb) 06/17/2024 95.3 kg (210 lb 1.6 oz) 04/18/2024 96.2 kg (212 lb) 03/20/2024 93.9 kg (207 lb) PHYSICAL EXAMINATION: General appearance: Well appearing, alert, in no acute distress, well-hydrated, well nourished. and using a cane Skin: Skin color, texture, turgor normal, no [...] or cyanosis. Good capillary refill. ASSESSMENT/PLAN: 1. Diarrhea, unspecified type - ICD9: 787.91, ICD10: R19.7 (primary diagnosis) - seems to be improving. Continue to follow up with gi. - check cmp 2. Polyneuropathy - ICD9: 356.9, ICD10: G62.9 - discussed walking with cane and walking. 3. Vascular dementia, uncomplicated (HCC) - ICD9: 290.40, ICD10: F01.50 - follow neurology 4. Controlled type 2 diabetes mellitus without complication, without long-term current use of insulin (HCC) - ICD9: 250.00, ICD10: E11.9 - Controlled - Continue current medications 5. Abdominal aortic aneurysm (AAA) without rupture, unspecified part (HCC) - ICD9: 441.4, ICD10: I71.40 - follows with serial us. 6. CALLI (obstructive sleep apnea) - ICD9: 327.23, ICD10: G47.33 - benefiting from cpap 7. Stage 3 severe COPD by GOLD classification (HCC) - ICD9: 496, ICD10: J44.9 - stable. 8. Hyperlipidemia, unspecified hyperlipidemia type - ICD9: 272.4, ICD10: E78.5 - Controlled - Continue current medications 9. Bronchiectasis without complication (HCC) - ICD9: 494.0, ICD10: J47.9 - stable. 10. Lung nodules - ICD9: 793.19, ICD10: R91.8 - per pulmonary. 11. Bilateral carotid artery stenosis - ICD9: 433.10, 433.30, ICD10: I65.23 - had cta. 12. Encounter for screening examination for other mental health and behavioral disorders - ICD9: V79.8, ICD10: Z13.39 - ANXIETY SCREENING 13. Anemia Check anemia labs. Tommy Hardy MD documented in this encounter [facility] 07-31-2024 Note [facility] 07-11-2024 Telephone encounter Note See other message. Kathryn Kirk MA [facility] 07-11-2024 Miscellaneous Notes See other message. Kathryn Kirk MA documented in this encounter [facility] 07-11-2024 Telephone encounter Note Patients reviewed stool studies on my chart. Shows C-Diff neg. He would like to know what to do about his ongoing diarrhea? Advise. Kathryn Kirk MA [facility] 07-11-2024 Miscellaneous Notes Patients reviewed stool studies on my chart. Shows C-Diff neg. He would like to know what to do about his ongoing diarrhea? Advise. Kathryn Kirk MA documented in this encounter [facility] 07-09-2024 History of Present illness Narrative Chief Complaint Patient presents with: Diarrhea: X 5 days HPI Olga Rodriguez is a 68 year old male who presents here today for diarrhea. Patient reports diarrhea starting 07/04/2024. Foul smelling and multiple times throughout the day. Noted black stool today but did start pepto yesterday. No abdominal pain or cramping. Was just on keflex for infection end of May. No nausea/vomiting. Past medical history, appointments, medications, allergies reviewed. Previous Medical History PAST MEDICAL HISTORY 08/19/2005: ANXIETY STATE NOS Comment: Controlled with effexor 2011: Benign neoplasm of colon No date: Dysmetabolic syndrome X No date: Hyperlipidemia No date: Lung nodule Comment: nodule no longer seen in 2016 No date: CALLI on CPAP No date: Other specified disorder of penis Comment: erectile dysfunction 04/06/2006: PERS HX TOBACCO USE Comment: Cigarettes 1.5 PPD No date: Psoriasis No date: Skin cancer 09/04/2023: Stroke (HCC) No date: Tobacco use disorder 08/07/2010: Type II or unspecified type diabetes mellitus without mention of complication, uncontrolled Comment: Diagnosed 07/2010 Previous Surgical History PAST SURGICAL HISTORY 12/08/2010: COLONOSCOPY FLX DX W/COLLJ SPEC WHEN PFRMD Comment: Colonoscopy, due 201310/06/2021: COLONOSCOPY FLX DX W/COLLJ SPEC WHEN PFRMD 07/14/2010: CT BRAIN Comment: neg, white matter changes associated with small vessel disease 07/01/2015: CT CHEST W IVCON Comment: resolution pleural effusion; small pleural based nodule, decrease right hilar lymphadenopathy, mild emphysema 02/17/2015: CTA CHEST Comment: No PE; right hium atelectasis vs small nodule, right hilar lymphadenopathy; right pleural effusion 2011: EXTER CAROTIDS UNI Comment: NEGATIVE No date: EYE SURGERY HX 07/20/2011: NM CARDIAC PERF STRESS/EXERCISE Comment: WNL 1961: PAST SURGICAL HISTORY OF Comment: Testicular as child 07/13/2012: PAST SURGICAL HISTORY OF Comment: Right rotator cuff No date: REMOVAL GALLBLADDER 01/2011, 02/2011: RMVL LENS MATERIAL PHACOFRAGMENTATION ASPIR Comment: Cataract Extraction bilateral No date: SKIN BIOPSY HX 2004: SPHINCTEROTOMY ANAL DIVISION SPHINCTER SPX No date: TRANSURETHRAL ELEC-SURG PROSTATECTOM Family History FAMILY HISTORY Problem Relation Age of Onset Cancer Mother Breast Cancer, thyroid Alzheimer's Disease Father Allergies Father other (Pre diabetes) Brother Allergies Brother Patient Allergies ALLERGIES Allergen Reactions Metformin Diarrhea Penicillins Current Medications Current Outpatient Medications on File Prior to Visit Medication Sig insulin lispro (HUMALOG KWIKPEN INSULIN) 100 unit/mL Inject 20 Units subcutaneously three times a day before meals. With sliding scale and 10 units with snacks. venlafaxine ER (EFFEXOR XR) 150 mg 24 hr capsule Take 1 capsule by mouth once daily. insulin needles, DISPOSABLE, (EASY TOUCH) 31 gauge x 5/16 Use one pen needle four times daily Blood-Glucose Meter,Continuous (FREESTYLE CAYDEN 3 READER) mis Injecting three times a day insulin. finasteride (PROSCAR) 5 mg tablet Take 5 mg by mouth once daily. insulin glargine 100 unit/mL (3 mL) Inject 52 Units subcutaneously daily at bedtime. (Patient taking differently: Inject 45 Units subcutaneously daily at bedtime.) atorvastatin (LIPITOR) 80 mg tablet TAKE 1 TABLET DAILY AT BEDTIME FOR CHOLESTEROL vemhdxfadss-usjwarvnk-wojedwse (TRELEGY ELLIPTA) 100-62.5-25 mcg inhalation powder Inhale 1 Puff as instructed once daily. Blood-Glucose Sensor (FREESTYLE CAYDEN 3 SENSOR) ramon Use as directed. Testing bid and prn. Has had hypoglycemia tamsulosin (FLOMAX) 0.4 mg Take 0.8 mg by mouth two times a day. CPAP Initiate Auto PAP @ 5-20 cm of water with humidification. Mask (per patient preference) optional chin strap (if indicated) , filters, tubing, humidifier and lifetime supplies. Replacement Machine. blood sugar diagnostic (BLOOD GLUCOSE TEST) test [...] (Patient taking differently: Uses 1-3 times daily) CONSTULOSE 10 gram/15 mL solution take 15ml (1 TAKE 1 TABLESPOONFUL) DAILY (Patient not taking: Reported on 06/17/2024) No current facility-administered medications on file prior to visit. Social History Social History Tobacco Use Smoking status: Every Day Current packs/day: 0.00 Average packs/day: 1 pack/day for 50.0 years (50.0 ttl pk-yrs) Types: Cigarettes Start date: 09/01/1973 Last attempt to quit: 09/01/2023 Years since quittin.8 Smokeless tobacco: Never Tobacco comments: Quit 09/01/2023 Vaping Use Vaping status: Never Used Substance Use Topics Alcohol use: Not Currently Drug use: Yes Frequency: 2.0 times per week Comment: Marijuana couple times a week. Review of Symptoms REVIEW OF SYSTEMS See hpi EXAM: BP 116/66 (BP Site: Left Arm, BP Position: Sitting, BP Cuff Size: Regular Adult) Pulse 78 Temp 36.2 C (97.1 F) Resp 20 Wt 95.3 kg (210 lb) SpO2 98% BMI 29.29 kg/m General Appearance: Well appearing, alert, in no acute distress, well-hydrated, well nourished.. Lungs: Lungs clear to auscultation. No wheezing, rhonchi, rales.. Heart: RRR without murmur, gallop, or rubs. No ectopy. Abdomen: Normal abdominal exam, Abdomen soft, non-tender. Bowel sounds normal. No masses, organomegaly. Health Maintenance List Anxiety Screening Never done Covid-19 Vaccine( season) due on 04/18/2025 Influenza Vaccine(1) due on 07/22/2024 Lung Cancer Screening due on 09/28/2024 HbA1C due on 10/25/2024 LDL Cholesterol due on 10/29/2024 Urine Albumin:Creatinine Ratio due on 11/11/2024 Diabetic Foot Exam due on 01/26/2025 Dilated Retinal Exam due on 03/16/2025 Annual PCP Team Chronic Disease Visit due on 04/18/2025 Colorectal Cancer Screening due on 10/06/2026 DTaP,Tdap,Td Vaccine(3 - Td or Tdap) due on 11/02/2033 Spirometry Completed Abdominal Aortic Aneurysm Screening Completed Advance Directive Discussion Completed RSV Vaccine Completed Hepatitis C Screening Completed Shingrix Vaccine Completed Pneumococcal Vaccine: 65+ Completed Alpha-1 Antitrypsin Deficiency Screening Discontinued Data reviewed ASSESSMENT/PLAN: 1. Diarrhea, unspecified type - ICD9: 787.91, ICD10: R19.7 Symptoms concerning for c. Diff. Check stool culture Discussed possible red flags and when to seek medical attention. - C. DIFFICILE PCR - ENTERIC BACTERIAL PANEL BY PCR Tyra Mac PA-C documented in this encounter [facility] 07-09-2024 Note [facility] 07-09-2024 Telephone encounter Note Spoke with a triage nurse and is scheduled. [facility] 07-09-2024 Miscellaneous Notes Spoke with a triage nurse and is scheduled. documented in this encounter [facility] 07-09-2024 Telephone encounter Note Patient call in for diarrhea since last Tuesday. Patient was on antibiotic a few weeks ago. Stool is more foul smelling and mucousy today. Stool is black, however patient has been taking pepto bismol Nurse Triage assessment completed with protocol recommending for disposition of see PCP in 24 hours. Care advice reviewed with patient, patient stated understanding. Reason for Disposition [1] Recent antibiotic therapy (i.e., within last 2 months) AND [2] diarrhea present > 3 days since antibiotic was stopped Answer Assessment - Initial Assessment Questions 1. DIARRHEA SEVERITY: Patient has had 2 in the last 24 hours; 2. ONSET: Since last Tuesday 3. BM CONSISTENCY Loose 4. VOMITING: Denies 5. ABDOMEN PAIN: Denies Abdominal Pain 6. ABDOMEN PAIN SEVERITY: Denies abdominal pain 7. ORAL INTAKE: Has been drink iced tea; Not drinking much water. 8. HYDRATION: Denies; Urinating fine 9. EXPOSURE: Denies 10. ANTIBIOTIC USE: Was on 3 weeks ago 11. OTHER SYMPTOMS: Mucous in stool; smells foul Protocols used: [id number] [facility] 07-09-2024 Miscellaneous Notes Patient call in for diarrhea since last Tuesday. Patient was on antibiotic a few weeks ago. Stool is more foul smelling and mucousy today. Stool is black, however patient has been taking pepto bismol Nurse Triage assessment completed with protocol recommending for disposition of see PCP in 24 hours. Care advice reviewed with patient, patient stated understanding. Reason for Disposition [1] Recent antibiotic therapy (i.e., within last 2 months) AND [2] diarrhea present > 3 days since antibiotic was stopped Answer Assessment - Initial Assessment Questions 1. DIARRHEA SEVERITY: Patient has had 2 in the last 24 hours; 2. ONSET: Since last Wednesday 3. BM CONSISTENCY Loose 4. VOMITING: Denies 5. ABDOMEN PAIN: Denies Abdominal Pain 6. ABDOMEN PAIN SEVERITY: Denies abdominal pain 7. ORAL INTAKE: Has been drink iced tea; Not drinking much water. 8. HYDRATION: Denies; Urinating fine 9. EXPOSURE: Denies 10. ANTIBIOTIC USE: Was on 3 weeks ago 11. OTHER SYMPTOMS: Mucous in stool; smells foul Protocols used: [id number] documented in this encounter [facility] 06-18-2024 Telephone encounter Note Spoke with patient. Given message from provider's office. Patient verbalizes understanding. Transferred to medical office scheduler for ORTHO appointment. Lydia Rosa RN [facility] 06-18-2024 Miscellaneous Notes Spoke with patient. Given message from provider's office. Patient verbalizes understanding. Transferred to medical office scheduler for ORTHO appointment. Lydia Rosa RN Xray reveals possible fracture of the lower pole patellar enthesophyte. Call placed to patient. Patient will need to follow up with ortho. Consult placed Weight bearing as tolerated. RICE therapy (Rest, Ice, compression, elevation) If no return call, please attempt to call patient AM of 06/19/2024 documented in this encounter [facility] 06-18-2024 Telephone encounter Note Xray reveals possible fracture of the lower pole patellar enthesophyte. Call placed to patient. Patient will need to follow up with ortho. Consult placed Weight bearing as tolerated. RICE therapy (Rest, Ice, compression, elevation) If no return call, please attempt to call patient AM of 06/19/2024 [facility] 06-18-2024 History of Present illness Narrative Radiology Service Progress Note PATIENT NAME: Olga Rodriguez DATE OF SERVICE: June 18, 2024 TIME: 8:20 AM PATIENT IDENTITY VERIFICATION COMPLETED USING TWO [...] place to prevent falls during this visit? 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 Bearing PERIPHERAL IV DATA: Not applicable SIGNED BY: RT Mart(R) June 18, 2024 8:20 AM documented in this encounter [facility] 06-18-2024 Note [facility] 06-17-2024 Note [facility] 06-17-2024 History of Present illness Narrative This note was created using [employer]. Subjective Olga Rodriguez is a 68 year old male. HPI 68-year-old male presents for left knee pain after fall yesterday. Patient states he was walking in his home when he tripped and fell onto his wood floor with his left knee. He has been having left knee pain since yesterday. He has mild swelling. He is still able to ambulate with his cane, which is his baseline. He has a small abrasion over the knee with some redness. He does have history of diabetes. No drainage from the area. He is on aspirin, no blood thinners. He denies any numbness of the leg. He did not hit his head or lose consciousness. No other injuries or complaints. He used some ice on the knee which helped somewhat. He has not taken anything else for the pain. PAST MEDICAL HISTORY Diagnosis Date ANXIETY STATE [...] SURGICAL HISTORY OF 07/13/2012 Right rotator cuff REMOVAL GALLBLADDER RMVL LENS MATERIAL PHACOFRAGMENTATION ASPIR 01/2011, 02/2011 Cataract Extraction bilateral SKIN BIOPSY HX SPHINCTEROTOMY ANAL DIVISION SPHINCTER SPX 2003 TRANSURETHRAL ELEC-SURG PROSTATECTOM ALLERGIES Metformin and Penicillins MEDICATIONS insulin lispro (HUMALOG KWIKPEN INSULIN) 100 unit/mL Inject 20 Units subcutaneously three times a day before meals. With sliding scale and 10 units with snacks. venlafaxine ER (EFFEXOR XR) 150 mg 24 hr capsule Take 1 capsule by mouth once daily. insulin needles, DISPOSABLE, (EASY TOUCH) 31 gauge x 5/16 Use one pen needle four times daily Blood-Glucose Meter,Continuous (FREESTYLE CAYDEN 3 READER) misc Injecting three times a day insulin. finasteride (PROSCAR) 5 mg tablet Take 5 mg by mouth once daily. insulin glargine 100 unit/mL (3 mL) Inject 52 Units subcutaneously daily at bedtime. (Patient taking differently: Inject 45 Units subcutaneously daily at bedtime.) atorvastatin (LIPITOR) 80 mg tablet TAKE 1 TABLET DAILY AT BEDTIME FOR CHOLESTEROL rfxnnsrtflz-pxfabrckz-rfmnkusc (TRELEGY ELLIPTA) 100-62.5-25 mcg inhalation powder Inhale 1 Puff as instructed once daily. Blood-Glucose Sensor (FREESTYLE CAYDEN 3 SENSOR) ramon Use as directed. Testing bid and prn. Has had hypoglycemia tamsulosin (FLOMAX) 0.4 mg Take 0.8 mg by mouth two times a day. CPAP Initiate Auto PAP @ 5-20 cm of water with humidification. Mask (per patient preference) optional chin strap (if indicated) , filters, tubing, humidifier and lifetime supplies. Replacement Machine. blood sugar diagnostic (BLOOD GLUCOSE TEST) test [...] (Patient taking differently: Uses 1-3 times daily) cephALEXin (KEFLEX) 500 mg capsule Take 1 capsule by mouth four times daily for 5 days. CONSTULOSE 10 gram/15 mL solution take 15ml (1 TAKE 1 TABLESPOONFUL) DAILY (Patient not taking: Reported on 06/17/2024) FAMILY HISTORY Problem Relation Age of Onset Cancer Mother Breast Cancer, thyroid Alzheimer's Disease Father Allergies Father other (Pre diabetes) Brother Allergies Brother Social History Tobacco Use Smoking status: Every Day Packs/day: 1.00 Years: 50.00 Additional pack years: 0.00 Total pack years: 50.00 Types: Cigarettes Last attempt to quit: 09/01/2023 Years since quittin.7 Smokeless tobacco: Never Tobacco comments: Quit 09/01/2023 Vaping Use Vaping Use: Never used Substance Use Topics Alcohol use: Not Currently Drug use: Yes Frequency: 2.0 times per week Comment: Marijuana couple times a week. Review of Systems Constitutional: Negative for chills and fever. HENT: Negative for congestion and sore throat. Respiratory: Negative for cough and shortness of breath. Gastrointestinal: Negative for diarrhea and vomiting. Musculoskeletal: Positive for arthralgias. Objective BP 140/70 Pulse 94 Temp 36.2 C (97.1 F) Resp 20 Wt 95.3 kg (210 lb 1.6 oz) SpO2 98% BMI 29.30 kg/m Physical Exam Vitals and nursing note reviewed. Constitutional: General: He is not in acute distress. Appearance: Normal appearance. He is not toxic-appearing. Cardiovascular: Rate and Rhythm: Normal rate and regular rhythm. Pulmonary: Effort: Pulmonary effort is normal. Breath sounds: Normal breath sounds. Musculoskeletal: Left knee: Swelling, erythema (Around abrasion) and bony tenderness present. Tenderness present. No LCL laxity, MCL laxity, ACL laxity or PCL laxity.Normal patellar mobility. Normal pulse. Legs: Comments: Normal flexion extension left knee, but reports pain with movement. Tenderness over the patella. No abnormal patellar mobility. No obvious deformity of the knee. Mild swelling around the knee. Patient able to ambulate with cane, which is baseline. Patient does have scabbing abrasion noted over the left anterior knee with mild surrounding erythema. No fluctuance or abscess. No drainage. No lymphatic streaking. Pulses 2+ left lower extremity. Normal sensation left lower extremity. Skin: General: Skin is warm and dry. Neurological: Mental Status: He is alert. Assessment and Plan ASSESSMENT/PLAN: 1. Acute pain of left knee - ICD9: 719.46, ICD10: M25.562 (primary diagnosis) -Due to tenderness of the patella with fall, did discuss with patient going to the ER or [place] for XR today as we have no XR available in [facility] since it is Tuesday. Advised patient I cannot rule out a patellar fracture without XR today. Patient adamantly declines. He prefers to return tomorrow for XR. -Patient is ambulating with his cane which is his baseline. No obvious deformity on exam. -Patient will return tomorrow for XR. If pain is unbearable, any new or worsening symptoms, he will go to ER. -Due to abrasion on the knee with mild erythema, history of diabetes, Rx for Keflex given. - XR KNEE GENERAL 4V AP BOTH/PA BOTH/LAT/MERC LEFT 2. Abrasion of left knee, initial encounter - ICD9: 916.0, ICD10: S80.212A -Keep wound clean and dry. -Rx for Keflex. Diagnosis and treatment plan were discussed and questions were answered to the patient's satisfaction. Pt acknowledged understanding of concepts and follow up plan. Specific signs and symptoms that would indicate the need for higher level of care were discussed in detail warranting prompt ER evaluation. MARY Amador documented in this encounter [facility] 06-14-2024 Telephone encounter Note Faxed back as requested. [facility] 06-14-2024 Miscellaneous Notes Faxed back as requested. Added and put on desk to sign. Needs put on form Patient's returns call. She says patient uses 85 Units Humalog Insulin maximum/24 hours. Lydia Rosa RN [employer] faxes office asking for additional information regarding humalog dosing. Dr Hardy would like to know that maximum amount of Humalog he would use in a 24 hour period? Left a message for patient or to please call office and speak with nurse. documented in this encounter [facility] 06-13-2024 Telephone encounter Note Added and put on desk to sign. [facility] 06-13-2024 Telephone encounter Note Needs put on form [facility] 06-13-2024 Telephone encounter Note Patient's returns call. She says patient uses 85 Units Humalog Insulin maximum/24 hours. Lydia Rosa RN [facility] 06-13-2024 Telephone encounter Note [employer] faxes office asking for additional information regarding humalog dosing. Dr Hardy would like to know that maximum amount of Humalog he would use in a 24 hour period? Left a message for patient or to please call office and speak with nurse. [facility] 06-11-2024 Telephone encounter Note Per endo note on 05/14/24 insulin glargine decreased to 38 units. Humalog 20 units TID and 10 units with snacks + SSI. [facility] 06-11-2024 Miscellaneous Notes Per endo note on 05/14/24 insulin glargine decreased to 38 units. Humalog 20 units TID and 10 units with snacks + SSI. documented in this encounter [facility] 04-18-2024 Note [facility] 04-18-2024 History of Present illness Narrative No chief complaint on file. HPI: Patient presents today for office visit for follow up. CALLI: Using CPAP nightly. Benefiting from use. Sleeping good through the night. No snoring. Feeling rested when waking. Some daytime fatigue where he feels he could take a nap. Still follows with PT twice a week. Other 3 days he exercises at [employer]. Doing well. Is doing much better. No new neuro issues. Had TURP with Dr. Church on 03/02/24 Had post-op visit on 03/12/24 Doing better No longer self cath Urine is flowing. Denies chest pain and shortness of breath. GASTROENTEROLOGY is following his his pancreatic markers, CA 9-19. They are considering changing his stent to a permanent one. Labs are much better. Seeing abdoulaye, Dr. Hansen. Using his cayden. Sugars are improving. Has had some hoarseness since surgery. Offered ent when available. See previous office note: Admitted into [facility] 02/02/24 Discharged 02/06/24 Upper GI performed. Clogged stent. Replaced stent in bile duct. Liver biopsies on 02/03/24. Had cholecystectomy 02/04/24. Went home with urinary catheter Followed up with Urology on 02/14/24 Catheter removed. Went into retention. Currently has urinary catheter. They are considering a turp. Did have a liver biopsy He wants his catheter removed. Bowels are moving. Incision are doing well. Sees surgery again next week. Sees Dr Hansen in two weeks. Using sliding scale insulin. Lowest sugars were 110. Can be 140 and 187. Only eating one or two meals a day. Discussed eating three times a day. Will call Tuesday with sugars to adjust. Latest Ref Rng 04/13/2024 Albumin 3.9 - 4.9 g/dL 3.8 (L) Bilirubin, Total 0.2 - 1.3 mg/dL 0.5 Bilirubin, Conjug <0.2 mg/dL <0.2 Alkaline Phosphatase 38 - 113 U/L 105 AST 14 - 40 U/L 18 ALT 10 - 54 U/L 23 Protein, Total 6.3 - 8.0 g/dL 6.9 Hemoglobin A1C 4.3 - 5.6 % 7.3 (H) Estimated Average Glucose mg/dL 163 Platelet Count 150 - 400 k/uL 237 Legend: (L) Low (H) High MEDICATIONS: Current Outpatient Medications Medication Sig insulin needles, DISPOSABLE, (EASY TOUCH) 31 gauge x 5/16 Use one pen needle four times daily insulin lispro (HUMALOG KWIKPEN INSULIN) 100 unit/mL Inject 25 Units subcutaneously three times a day before meals. With sliding scale Blood-Glucose Meter,Continuous (FREESTYLE CAYDEN 3 READER) misc Injecting three times a day insulin. finasteride (PROSCAR) 5 mg tablet Take 5 mg by mouth once daily. insulin glargine 100 unit/mL (3 mL) Inject 52 Units subcutaneously daily at bedtime. (Patient taking differently: Inject 45 Units subcutaneously daily at bedtime.) atorvastatin (LIPITOR) 80 mg tablet TAKE 1 TABLET DAILY AT BEDTIME FOR CHOLESTEROL fntoguzkibk-gxtkybfdy-vzmalfyb (TRELEGY ELLIPTA) 100-62.5-25 mcg inhalation powder Inhale 1 Puff as instructed once daily. Blood-Glucose Sensor (FREESTYLE CAYDEN 3 SENSOR) ramon Use as directed. Testing bid and prn. Has had hypoglycemia tamsulosin (FLOMAX) 0.4 mg Take 0.8 mg by mouth two times a day. CPAP Initiate Auto PAP @ 5-20 cm [...] (Patient taking differently: Uses 1-3 times daily) CONSTULOSE 10 gram/15 mL solution take 15ml (1 TAKE 1 TABLESPOONFUL) DAILY (Patient not taking: Reported on 03/20/2024) nystatin (MYCOSTATIN) cream Apply 1 application to affected area two times a day. (Patient not taking: Reported on 04/18/2024) No current facility-administered medications for this visit. [...] SURGICAL HISTORY OF 07/13/2012 Right rotator cuff REMOVAL GALLBLADDER RMVL LENS MATERIAL PHACOFRAGMENTATION ASPIR 01/2011, 02/2011 Cataract Extraction bilateral SKIN BIOPSY HX SPHINCTEROTOMY ANAL DIVISION SPHINCTER SPX 2003 TRANSURETHRAL ELEC-SURG PROSTATECTOM FAMILY HISTORY Problem Relation Age of Onset Cancer Mother Breast Cancer, thyroid Alzheimer's Disease Father Allergies Father other (Pre diabetes) Brother Allergies Brother Social History Tobacco Use Smoking status: Every Day Packs/day: 1.00 Years: 50.00 Additional pack years: 0.00 Total pack years: 50.00 Types: Cigarettes Last attempt to quit: 09/01/2023 Years since quittin.6 Smokeless tobacco: Never Tobacco comments: Quit 09/01/2023 Vaping Use Vaping Use: Never used Substance Use Topics Alcohol use: Not Currently Drug use: Yes Frequency: 2.0 times per week Comment: Marijuana couple times a week. Reviewed current medications, allergies, past medical history, surgical history, family history and social history today. REVIEW OF SYSTEMS Having occasional red and irritated testicles. All other reviewed and negative other than HPI. HEALTH MAINTENANCE: Reviewed health maintenance issues today and recommended the following in detail. Covid-19 Vaccine( season) due on 01/14/2024 VITALS: BP 100/63 Pulse 96 Ht 180.3 cm (5' 11 ) Wt 96.2 kg (212 lb) BMI 29.57 kg/m Last 4 Encounter Wt Readings: Date: Wt: 04/18/2024 96.2 kg (212 lb) 03/20/2024 93.9 kg (207 lb) 02/17/2024 94.3 kg (208 lb) 01/27/2024 95.3 kg (210 lb) PHYSICAL EXAMINATION: General appearance: Well appearing, [...] Musculoskeletal: No joint swelling, deformity, or tenderness Testicles appear relatively normal today. ASSESSMENT/PLAN: 1. Cerebrovascular accident (CVA), unspecified mechanism ([facility]) - ICD9: 434.91, ICD10: I63.9 (primary diagnosis) - stable. 2. Abdominal aortic aneurysm (AAA) without rupture, unspecified part ([facility]) - ICD9: 441.4, ICD10: I71.40 - consider rechecking at some point. Wants to wait until next time. 3. CALLI (obstructive sleep apnea) - ICD9: 327.23, ICD10: G47.33 - benefiting from treatment. 4. Stage 3 severe COPD by GOLD classification ([facility]) - ICD9: 496, ICD10: J44.9 - stable., 5. Controlled type 2 diabetes mellitus without complication, without long-term current use of insulin ([facility]) - ICD9: 250.00, ICD10: E11.9 - improving. 6. Hyperglycemia - ICD9: 790.29, ICD10: R73.9 - doing much better. 7. Bilateral carotid artery stenosis - ICD9: 433.10, 433.30, ICD10: I65.23 - see previous note copied and pasted from 09/12 after stroke: Cta showed his carotid stenosis has progressed in the oast year to 60 % on left side. Has an appt with vascular surgery soon. He did not keep the appt. 8. History of cerebrovascular accident - ICD9: V12.54, ICD10: Z86.73 - as above. Never did follow up with neurology regarding monitors etc. 9. Obstructive jaundice - ICD9: 576.2, ICD10: K83.1 - improved. 10. Urinary retention - ICD9: 788.20, ICD10: R33.9 - per urology 11. Tinea cruris - ICD9: 110.3, ICD10: B35.6 - NYSTATIN 100,000 UNIT/GRAM TOPICAL POWDER Tommy Hardy MD documented in this encounter [facility] 03-21-2024 Telephone encounter Note Order routed to [employer] [phone] fax via [employer]. [facility] 03-21-2024 Miscellaneous Notes Order routed to [employer] [phone] fax via [employer]. documented in this encounter [facility] 03-20-2024 History of Present illness Narrative Images from the original note were not included. . [facility] [place] Note Patient name: Olga Rodriguez PCP: Tommy Hardy MD CC: Follow-up COPD HPI: Olga Rodriguez 68 year old male current 50 pack year smoker with PMH significant for psoriasis, CVA, HLD, DM, CALLI on CPAP, anxiety and moderately severe COPD, lung nodules presenting for follow up. Current therapy with Trelegy Ellipta and as needed albuterol. Not using Trelegy everyday. Started smoking again and had been coughing more. Sputum is clear in color. No change in degree of dyspnea. No audible wheezing. Since MARCUS had choledocholithiasis with metabolic encephalopathy, required stent placement, also had issues with urinary retention due to BPH, required TURP and self-catheterization. Lung cancer screening test showed stable pulmonary nodules most of them calcified consistent with granulomatous disease. DATA: Labs: Component Ref Range & Units 1 mo ago (02/17/24) WBC 3.70 - 11.00 k/uL 11.20 High RBC 4.20 - 6.00 m/uL 5.20 Hemoglobin 13.0 - 17.0 g/dL 14.5 Hematocrit 39.0 - 51.0 % 45.6 MCV 80.0 - 100.0 fL 87.7 MCH 26.0 - 34.0 pg 27.9 MCHC 30.5 - 36.0 g/dL 31.8 RDW-CV 11.5 - 15.0 % 15.3 High Platelet Count 150 - 400 k/uL 471 High MPV 9.0 - 12.7 fL 12.6 Neutrophils % % 69.8 Abs Neut 1.45 - 7.50 k/uL 7.83 High Lymphocytes % % 19.4 Abs Lymph 1.00 - 4.00 k/uL 2.17 Monocytes % % 5.9 Abs [place] <0.87 k/uL 0.66 Eosinophils % % 3.7 Abs Eosin <0.46 k/uL 0.41 Basophils % % 0.9 Abs Baso <0.11 k/uL 0.10 Immature Granulocytes % % 0.3 Abs Immature Gran <0.10 k/uL 0.03 NRBC /100 WBC 0.0 Absolute nRBC <0.01 k/uL <0.01 Diff Type Auto Imaging / Diagnostic Studies: DATE OF EXAM: Sep 28 2023 10:21AM [facility] 0562 - CT LUNG SCREEN WO IVCON / CLINICAL HISTORY: Lung cancer LDCT screening ? absence of signs or symptoms of lung cancer. Personal history of nicotine dependence. Baseline (initial) COMPARISON: CT chest dated 09/06/2022 RESULT: Are nodules present? Yes, 1-5 nodules If No, go to IMPRESSION. If yes, proceed with characterization of the FIVE largest nodules. Nodule 1: This Solid nodule is located in the Right Upper Lobe on slice number 62 with an average diameter of 2.4 mm (3.3 mm x 1.5 mm). Nodule 2: This Calcified nodule is located in the Right Middle Lobe on slice number 134 with an average diameter of 3.4 mm (4.7 mm x 2.0 mm). Nodule 3: This Calcified nodule is located in the Right Middle Lobe on slice number 127 with an average diameter of 3.1 mm (3.5 mm x 2.6 mm). Other lung nodule comments: None Other findings: The central airways are patent without evidence of endobronchial lesion. Secretions are seen in the dependent portion of the left mainstem bronchus (image 110), new since the prior exam. No new focal lung consolidation is seen. Linear atelectasis is seen in the right lower lobe. There is no pleural effusion or pneumothorax. No enlarged supraclavicular, axillary, mediastinal or hilar lymph nodes are seen. The aorta and main pulmonary artery are normal in course and caliber. Atherosclerotic calcifications are seen in the aorta. The heart size is normal. There is no pericardial effusion. The thyroid gland is unremarkable. A small hiatal hernia is seen. The soft tissues of the chest wall are unremarkable. The visible portion of the upper abdomen is unremarkable. No destructive bone lesion is seen. Minimal degenerative changes are seen in the thoracic spine. Emphysema: Trivial (<5%), Paraseptal, Upper lobe Coronary Artery Calcifications: Circumflex Mild; Left Anterior Descending Moderate; Right Coronary Moderate I personally reviewed the images and agree with the above assessment PAST MEDICAL HISTORY Diagnosis Date ANXIETY STATE [...] 07/2010 ALLERGIES Allergen Reactions Metformin Diarrhea Penicillins insulin lispro (HUMALOG KWIKPEN INSULIN) 100 unit/mL Inject 25 Units subcutaneously three times a day before meals. With sliding scale finasteride (PROSCAR) 5 mg tablet Take 5 mg by mouth once daily. insulin glargine 100 unit/mL (3 mL) Inject 52 Units subcutaneously daily at bedtime. (Patient taking differently: Inject 45 Units subcutaneously daily at bedtime.) atorvastatin (LIPITOR) 80 mg tablet TAKE 1 TABLET DAILY AT BEDTIME FOR CHOLESTEROL linhprqlguc-mlfuugikl-vwgonvlb (TRELEGY ELLIPTA) 100-62.5-25 mcg inhalation powder Inhale 1 Puff as instructed once daily. tamsulosin (FLOMAX) 0.4 mg Take 0.8 mg by mouth two times a day. venlafaxine ER (EFFEXOR XR) 150 mg 24 hr capsule Take 1 capsule by mouth once daily. aspirin, enteric coated (ASPIRIN, ENTERIC COATED) 81 [...] AVOID face, eyes/eyelids, and deep fold areas. insulin needles, DISPOSABLE, (EASY TOUCH) 31 gauge x 5/16 Use one pen needle four times daily Blood-Glucose Meter,Continuous (FREESTYLE CAYDEN 3 READER) misc Injecting three times a day insulin. CONSTULOSE 10 gram/15 mL solution take 15ml (1 TAKE 1 TABLESPOONFUL) DAILY (Patient not taking: Reported on 03/20/2024) Blood-Glucose Sensor (FREESTYLE CAYDEN 3 SENSOR) ramon Use as directed. Testing bid and prn. Has had hypoglycemia nystatin (MYCOSTATIN) cream Apply 1 application to affected area two times a day. (Patient not taking: Reported on 03/20/2024) CPAP Initiate Auto PAP @ 5-20 cm of water with humidification. Mask (per patient preference) optional chin strap (if indicated) , filters, tubing, humidifier and lifetime supplies. Replacement Machine. blood sugar diagnostic (BLOOD GLUCOSE TEST) test [...] or as directed. DX: 250.02 Insulin: Yes lancets(ACCU-CHEK SOFTCLIX LANCETS) Test Blood sugar once daily. 250.02 (Patient taking differently: Uses 1-3 times daily) Social History Tobacco Use Smoking status: Every Day Packs/day: 1.00 Years: 50.00 Additional pack years: 0.00 Total pack years: 50.00 Types: Cigarettes Last attempt to quit: 09/01/2023 Years since quittin.5 Smokeless tobacco: Never Tobacco comments: Quit 09/01/2023 Vaping Use Vaping Use: Never used Substance Use Topics Alcohol use: Not Currently Drug use: Yes Frequency: 2.0 times per week Comment: Marijuana couple times a week. FAMILY HISTORY Problem Relation Age of Onset [...] SURGICAL HISTORY OF 07/13/2012 Right rotator cuff REMOVAL GALLBLADDER RMVL LENS MATERIAL PHACOFRAGMENTATION ASPIR 01/2011, 02/2011 Cataract Extraction bilateral SKIN BIOPSY HX SPHINCTEROTOMY ANAL DIVISION SPHINCTER SPX 2003 TRANSURETHRAL ELEC-SURG PROSTATECTOM PMH, Social history, family history and surgical history reviewed and updated in EMR REVIEW OF SYSTEMS: CONSTITUTIONAL: No fevers, chills, nightsweats, unintended weight loss HEENT: Denies nasal congestion/sinus symptoms CARDIOVASCULAR: No chest pain, dyspnea, palpitations, orthopnea, PND, edema. PULM: See HPI GI: No abdominal pain : Urinary retention NEURO: No new balance problems, peripheral weakness/paresthesias or numbness of concern. INTEGUMENTARY: No new skin changes or rashes PHYSICAL EXAMINATION: BP 117/72 Pulse 99 Resp 18 Wt 207 lb (93.9kg) SpO2 95% General Appearance: Well appearing, alert, in no acute distress, well-hydrated, well nourished.. Skin: Skin color, texture, turgor normal, no suspicious rashes or lesions. Ecchymoses Head: Normocephalic, no masses, lesions, tenderness or abnormalities. Eyes: Sclera, conjunctiva normal. Oropharynx: No oral lesions, or thrush. Neck: No JVD, no masses. Chest wall: Kyphosis Lungs: Not labored, normal to percussion, no wheezes or crackles. Heart: Regular rate and rhythm, no murmurs or gallops. Extremities: No edema or clubbing. Neurologic: Oriented, no focal findings. Lymph Nodes: No cervical lymphadenopathy and No supraclavicular lymphadenopathy. Assessment/Plan: 1. Moderate COPD -Smoking cessation is paramount -Patient encouraged to use Trelegy Ellipta daily -Update spirometry 2. Cigarette smoker -Current smoker with sequelae of COPD -Smoking cessation strongly encouraged -Patient enrolled in lung cancer screening program 3. Granulomatous disease -Patient participating in lung cancer screening Carly Chandler MD [facility] [place] documented in this encounter [facility] 03-20-2024 Note [facility] 03-12-2024 Miscellaneous Notes Patient has been identified by name and date of : Yes Requested Prescriptions Pending Prescriptions Disp Refills insulin needles, DISPOSABLE, (EASY TOUCH) 31 gauge x 5/16 400 Each 3 Sig: Use one pen needle four times daily RX INSTRUCTIONS: Patient aware RX will be sent to pharmacy. No need to notify patient. Alicia Reyes LPN documented in this encounter [facility] 02-24-2024 Miscellaneous Notes Ml from [facility] PAT office calling asking for copy of patient last HGBA1C to be faxed to [phone]. Printed and faxed as requested. documented in this encounter [facility] 02-20-2024 Miscellaneous Notes Patient notified of results, verbalizes understanding of instructions. Luba Steve LPN Sugars are improving as is liver. Platelets are slightly up. Likely due to the recent physical stress his body as been under. Recheck labs in one month. documented in this encounter [facility] 02-17-2024 Note [facility] 02-07-2024 Miscellaneous Notes See tcm documented in this encounter [facility] 02-07-2024 Note [facility] 02-06-2024 Miscellaneous Notes Pt is scheduled for a hospital follow up 02/13/24. Has an appointment with Dr Hannon 02/09/24. Canceled Dr Hardy appointment for tomorrow. Aleta Teauge Ma Left message for patient to return call. Faxed lab results to Dr Riddhi Teague Ma Liver is rising again. Please send over to Dr Hannon's office and ask his staff to make him aware. Is he having any gi issues again? Stop lipitor. They have kept him on it but hold it for now. documented in this encounter [facility] 01-27-2024 Miscellaneous Notes noted Patient Kary returned call and said arrived in [place] on Jan 18 and left on Dec. Left message for patient to return call. Aleta Teague Ma Verify date patient left [place] due to his symptoms for completing the paperwork documented in this encounter [facility] 01-27-2024 Note [facility] 01-27-2024 History of Present illness Narrative Patient presents with: Hospital F/U HPI: Patient presents today for office visit for hospital follow up. Was in [place] on 01/18/24 when he experienced a bout of confusion. Was unable to move his left arm and was speaking gibberish per his . They flew home on 01/19/24. From 01/19/24 to 01/24/24 his seemed fine. Went to [employer] on 01/25/24 when his symptoms restarted again. Seen in [facility] on 01/25/24 and admitted for altered mental status. Discharged on 01/26/24. Dx with acute confusion and acute altered mental status. No definitive etiology was found. They though perhaps he was tired or ill and had some recurrence of his symptoms. Since no new stroke found and old vascular signs they were considering vascular dementias a possibility. A1c is 7.2. Has an appt in neurology. CTA Head/Neck IMPRESSION: Atherosclerosis with no hemodynamically significant stenosis. Brain CT IMPRESSION: Stable examination demonstrating small vessel ischemia and bilateral basal ganglia and left thalamic lacunar infarcts. CXR: No radiographic evidence of acute cardiopulmonary disease. Brain MRI IMPRESSION: Atrophy and advanced periventricular white matter ischemia changes without evidence for acute infarct. Small old bilateral lacunar infarcts and chronic ischemic changes within the rico and cerebellar hemispheres. EEG: IMPRESSION: This awake and sleep EEG was normal. There were no epileptiform discharges or lateralizing signs. Denies any dizziness or lightheadedness. Denies any chest pain or shortness of breath. Denies any confusion. No falls since November. They were trying to get him into see Dr Hansen for his sugars. They had been better before leaving for [place]. Overall they had been much better. His am sugars are running into 190's. Send a list of sugars in one week. MEDICATIONS: Current Outpatient Medications Medication Sig finasteride (PROSCAR) 5 mg tablet Take 5 mg by mouth once daily. CONSTULOSE 10 gram/15 mL solution take 15ml (1 TAKE 1 TABLESPOONFUL) DAILY atorvastatin (LIPITOR) 80 mg tablet TAKE 1 TABLET DAILY AT BEDTIME FOR CHOLESTEROL insulin lispro (HUMALOG KWIKPEN INSULIN) 100 unit/mL Inject 21 Units subcutaneously three times a day before meals. hxeqyctcqmr-rjcywslxm-tqszktoo (TRELEGY ELLIPTA) 100-62.5-25 mcg inhalation powder Inhale 1 Puff as instructed once daily. Blood-Glucose Sensor (FREESTYLE CAYDEN 3 SENSOR) ramon Use as directed. Testing bid and prn. Has had hypoglycemia nystatin (MYCOSTATIN) cream Apply 1 application to affected area two times a day. insulin glargine 100 unit/mL (3 mL) Inject 50 Units subcutaneously daily at bedtime. tamsulosin (FLOMAX) 0.4 mg Take 0.8 mg by mouth two times a day. insulin needles, DISPOSABLE, (EASY TOUCH) 31 gauge x 5/16 Use one pen needle four times daily CPAP Initiate Auto PAP @ 5-20 cm [...] Types: Cigarettes Quit date: 09/01/2023 Years since quittin.4 Smokeless tobacco: Never Tobacco comments: Quit 09/01/2023 [...] today and recommended the following in detail. Diabetic Foot Exam-will due. Dilated Retinal Exam -due again. Advance Directive Discussion - has his dpoa. VITALS: BP 100/64 Pulse 101 Ht 180.3 cm (5' 11 ) Wt 95.3 kg (210 lb) SpO2 96% BMI 29.29 kg/m Last 4 Encounter Wt Readings: Date: Wt: 01/11/2024 97.1 kg (214 lb) 12/13/2023 98 kg (216 lb) 11/07/2023 95.7 kg (211 lb) 10/05/2023 102.9 kg (226 lb 12.8 oz) PHYSICAL EXAMINATION: General appearance: [...] swelling, deformity, or tenderness Peripheral pulses: Normal Feet:Shoes and socks removed, normal distal pulses, trace DP distal pulses, and sensitive to 10 gm monofilament ASSESSMENT/PLAN: 1. Controlled type 2 diabetes mellitus without complication, without long-term current use of insulin (HCC) - ICD9: 250.00, ICD10: E11.9 (primary diagnosis) - adjust lantus. Call sugar in one week - INSULIN GLARGINE (U-100) 100 UNIT/ML (3 ML) SUBCUTANEOUS PEN 2. Memory loss - ICD9: 780.93, ICD10: R41.3 . - check labs. See neurology - VITAMIN B12 BLOOD - FOLATE SERUM - SYPHILIS TOTAL W/REFLEX - SED RATE WESTERGREN - BASIC METABOLIC PNL - CBC + DIFF 3. Cerebrovascular accident (CVA), unspecified mechanism (HCC) - ICD9: 434.91, ICD10: I63.9 - call if any issues. 4. Infarction of thalamus (HCC) - ICD9: 434.91, ICD10: I63.81 - call if any issues. 5. Abdominal aortic aneurysm (AAA) without rupture, unspecified part (HCC) - ICD9: 441.4, ICD10: I71.40 - stable. 6. Stage 3 severe COPD by GOLD classification (HCC) - ICD9: 496, ICD10: J44.9 - stable. Tommy Hardy MD RTO in six weeks. Will need forms completed for cancelled trip to [place]. documented in this encounter [facility] 01-25-2024 Miscellaneous Notes Ok to do Ok to send referral to endo? documented in this encounter [facility] 01-12-2024 Miscellaneous Notes Patient has been identified by name and date of : Yes Requested Prescriptions Pending Prescriptions Disp Refills atorvastatin (LIPITOR) 80 mg tablet 90 tablet 3 Sig: TAKE 1 TABLET DAILY AT BEDTIME FOR CHOLESTEROL RX INSTRUCTIONS: Patient aware RX will be sent to pharmacy. No need to notify patient. Alicia Reyes LPN documented in this encounter [facility] 01-12-2024 Miscellaneous Notes Patients informed and states she will relay message to patient. Kathryn Kirk Let him know labs are improving. White count minimally up but not bad Recheck cbc and liver panel when he gets back in town. documented in this encounter [facility] 01-11-2024 Note [facility] 01-11-2024 History of Present illness Narrative Patient presents with: Hospital F/U HPI: Patient presents today for office visit for hospital follow up. Seen in [facility] on 01/05/24 with complaints of abdominal pain and vomiting. Admitted. Discharged on 01/04/24. Dx with Jaundice. Bile duct stricture. Treated with ERCP. Stones removed. Elevated liver enzymes secondary to biliary stricture. Tamsulosin increased to 0.8 mg Feeling well today. Appetite is good. Eating and drinking. Has been doing miralax for constipation. Discussed adding MOM. No jaundice. No fatigue. Since out of the hospital, sugars have been overall good. No chest pain or shortness of breath. Cayden is not reading accurately. We discussed monitoring sugars. See discharge summary from [facility]: Date of Admission: 01/05/24 Date of Discharge: 01/07/24 Primary Care Physician: Dr. Tommy Hardy MD Consultations 01/05/24 16:03 Consult: Gastroenterology Routine Consulting Provider: [facility] Reason for Consult: friend EMERGENT Consult: No MD Notified: Yes Date Notified: 01/05/24 Time Notified: 15:32 Method of Notification: Verbal Reason For Visit: CHOLEDOCHOLITHIASIS, JAUNDICE, WEIGHT LOSS Diagnosis Discharge Diagnosis (1) Jaundice: Status: Acute Code(s): R17 - Unspecified jaundice Plan 1. 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 Total clinical time spent by myself addressing the patient's medical issues, reviewing all of his data, and collaborating with patient's care team: 25 minutes Medications at Discharge Home Medications insulin glargine 100 unit/mL (3 mL) subcutaneous pen (Lantus Solostar U-100 Insulin) 50 units subcut QHS DABETES 02/27/15 insulin lispro 100 unit/mL subcutaneous pen (Humalog KwikPen (U-100) Insulin) 22unit subcut TID DIABETES 02/27/15 fluticasone fur. 100 mcg-umeclid 62.5 mcg-vilant 25 mcg inhalat.powder (Trelegy Ellipta) 1 inh inhalation DAILY SHORTNESS OF BREATH/WHEEZING 09/05/23 venlafaxine 150 mg capsule,extended release 24 hr 150 mg PO DAILY DEPRESSION 09/05/23 atorvastatin 80 mg tablet 80 mg PO QHS CHOLESTEROL #30 tabs 09/07/23 aspirin 81 mg chewable tablet 81 mg PO DAILY HEART HEALTH 11/02/23 finasteride 5 mg tablet 5 mg PO DAILY 01/05/24 oxybutynin chloride 10 mg tablet,extended release 24 hr 10 mg PO DAILY 01/05/24 ondansetron HCl 8 mg tablet 8 mg PO Q8H PRN nausea and vomiting #20 tabs 01/07/24 tamsulosin 0.4 mg capsule 0.8 mg (2 x 0.4 mg) PO DAILY #60 caps 01/07/24 Hospital Course Operations ERCP Summary of Care Provided Minutes Spent on Discharge: 31 Hospital Course: This 68-year-old white male was seen in the emergency room at [facility] with complaints of nausea and vomiting and upper abdominal pain, labs obtained showed elevated liver enzymes, he was seen in consultation by gastroenterology who performed an ERCP, choledocholithiasis was found as well asa stenotic area in the common bile duct. His previous common bile duct stent was replaced, biopsies were taken, patient tolerated the procedure well and there were no complications. On 01/07/2024, patient was seen and examined: On examination he appeared in good health and spirits. Vital signs as documented. Skin warm and dry and without overt rashes. Neck without JVD, neck was supple, trachea midline, thyroid was normal. Lungs clear bilaterally, normal air movement was noted. Heart exam notable for regular rhythm, normal sounds and absence of murmurs, rubs or gallops. Abdomen unremarkable and without evidence of organomegaly, masses, or abdominal aortic enlargement. Bowel sounds are present, abdomen is not distended. Extremities nonedematous, no cyanosis was noted, no clubbing was noted. Neuro: Cranial nerves II through XII are grossly intact, no focal motor deficits were noted, sensation to light touch and pinprick intact, motor exam 5/5 throughout. Psych: Patient is alert and oriented x3, he does not appear anxious or depressed, he does not appear agitated. Patient appears stable for discharge home on 01/07/2024 MEDICATIONS: Current Outpatient Medications Medication Sig dtwuxydjova-jmtjojmxb-lngynjux (TRELEGY ELLIPTA) 100-62.5-25 mcg inhalation powder Inhale 1 Puff as instructed once daily. Blood-Glucose Sensor (eFansSTYLE CAYDEN 3 SENSOR) ramon Use as directed. Testing bid and prn. Has had hypoglycemia flash glucose scanning reader (FREESTYLE CAYDEN 3 READER) Use as directed. Testing bid and prn. Has had hypoglycemia nystatin (MYCOSTATIN) cream Apply 1 application to affected area two times a day. insulin glargine 100 unit/mL (3 mL) Inject 50 Units subcutaneously daily at bedtime. tamsulosin (FLOMAX) 0.4 mg Take 0.8 mg by mouth two times a day. [...] (Patient taking differently: Uses 1-3 times daily) insulin lispro (HUMALOG KWIKPEN INSULIN) 100 unit/mL Inject 21 Units subcutaneously three times a day before meals. No current facility-administered medications for this visit. [...] Types: Cigarettes Quit date: 09/01/2023 Years since quittin.3 Smokeless tobacco: Never Tobacco comments: Quit 09/01/2023 Vaping Use Vaping Use: Never used Substance Use Topics Alcohol use: Not Currently Drug use: Yes Frequency: 2.0 times per week Comment: Marijuana couple times a week. Reviewed current medications, allergies, past medical history, surgical history, family history and social history today. REVIEW OF SYSTEMS Doing therapy currently. Not currently having to use the cane or walker. All other reviewed and negative other than HPI. VITALS: BP 126/62 Pulse 79 Ht 180.3 cm (5' 11 ) Wt 97.1 kg (214 lb) SpO2 97% BMI 29.85 kg/m Last 4 Encounter Wt Readings: Date: Wt: 12/13/2023 98 kg (216 lb) 11/07/2023 95.7 kg (211 lb) 10/05/2023 102.9 kg (226 lb 12.8 oz) 09/20/2023 102.1 kg (225 lb) PHYSICAL EXAMINATION: General appearance: Well appearing, [...] or cyanosis. Good capillary refill. ASSESSMENT/PLAN: 1. Obstructive jaundice - ICD9: 576.2, ICD10: K83.1 (primary diagnosis) - has liver and lipid ordered as well. Follow with gi. - BASIC METABOLIC PNL - CBC + DIFF 2. Controlled type 2 diabetes mellitus without complication, without long-term current use of insulin (HCC) - ICD9: 250.00, ICD10: E11.9 - Improving control - follow sugars. - INSULIN LISPRO (U-100) 100 UNIT/ML SUBCUTANEOUS PEN 3. Gastroparesis - ICD9: 536.3, ICD10: K31.84 - stable. 4. Cerebrovascular accident (CVA), unspecified mechanism (HCC) - ICD9: 434.91, ICD10: I63.9 - doing better. Tommy Hardy MD documented in this encounter [facility] 01-09-2024 Miscellaneous Notes If stable. Can do vv on Do you want a hospital follow up this week? documented in this encounter [facility] 01-04-2024 Miscellaneous Notes They are worried what [...] Scan on 01/04/2024 12:39 AM by Provider, KYAW Christensen: Consultation - Emergency Medicine documented in this encounter [facility] 12-30-2023 Miscellaneous Notes Duplicate encounter. documented in this encounter [facility] 12-26-2023 Miscellaneous Notes MARCUS 05/02/23 Patient phones requesting refills as follows: Requested Prescriptions Pending Prescriptions Disp Refills pirxkwjosgg-eimisfmjn-nftuyaxr (TRELEGY ELLIPTA) 100-62.5-25 mcg inhalation powder 180 Each 3 Sig: Inhale 1 Puff as instructed once daily. Please review and advise. Marcy Cedillo LPN documented in this encounter [facility] 12-13-2023 Note [facility] 11-07-2023 Note [facility] 11-02-2023 Miscellaneous Notes Spoke to and scheduled patient Carly Manriquez Ma documented in this encounter [facility] 10-22-2023 Miscellaneous Notes Placed in mail written documented in this encounter [facility] 10-11-2023 Miscellaneous Notes rxi documented in this encounter [facility] 10-05-2023 Instructions Tommy Hardy MD - 10/05/2023 12:08 PM EST Increase humalog to 19 units with each meal. Send over sugars on Tuesday. documented in this encounter [facility] 10-05-2023 Note [facility] 10-05-2023 History of Present illness Narrative Patient presents with: Follow Up HPI: Patient presents today for office visit for 3 week follow up. Was seen in [facility] on 09/06/23 for stroke [...] his subacute cva. Was seen back in [facility] on 09/26/23 Discharged on [...] therapies ordered. He has been going to [facility] instead. Reiterated that it is not an acceptable substitute. Orders were placed. They are planning on going to [facility] this week. Suggested with recent cva they [...] Use one pen needle four times daily dknqcddljsd-vyuonoiiu-neqrfsjh (TRELEGY ELLIPTA) 100-62.5-25 mcg inhalation powder Inhale [...] COMP METABOLIC PANEL - LIPID PANEL BASIC Tommy Hardy MD documented in this encounter [facility] 09-28-2023 Note [facility] 09-26-2023 Miscellaneous Notes Pt was taken to [facility] ER by spouse. Reg Broussard Message left for or patient to call PCP office and ask for traige nurse, for provider's response below. Melody Schulz RN Agree, these sx belong in ER should not wait. Thanks, Rusty Calhoun PA-C Patient's calls concerned. Patient was seen in [facility] 09/06/2023 with stroke like [...] Sagrario Barrera RN documented in this encounter [facility] 09-22-2023 History of Present illness Narrative Radiology Service Progress Note PATIENT NAME: Olga Rodriguez DATE OF SERVICE: September 22, 2023 TIME: [...] 2023 2:14 PM documented in this encounter [facility] 09-22-2023 Note [facility] 09-20-2023 Instructions Andres Dash APRN.DOUBLE BACK OPERATOR - 09/20/2023 10:[address] Lung [...] to endocrinology. Others Lung Cancer Screening hotline: [phone] Lung Cancer Screening [phone] Billing Questions: or [email or web address] ssiance Lung Cancer Screening Team: Angeles Lopez CNP; Gladys Reddy PA-C; Suellen Joseph CNP; Diamond Rosas CNP, Susanne Wolfe PA-C, Fide Andino PA-C, Andres Dash, DOUBLE BACK OPERATOR : [phone] documented in this encounter [facility] 09-20-2023 Note [facility] 09-20-2023 History of Present illness Narrative Images from the original note were not included. LUNG SCREENING VISIT PRIMARY CARE PHYSICIAN: Tommy Hardy MD PULMONARY PROVIDER: Dr. Rosalinda Chandler Results will be communicated via letter or electronic record if applicable. Visit Delivery: In Person Patient Visit Type: New to Screening Current or Ex-smoker? ex smoker quit 09/01/23 Exam Type: baseline LDCT Number of Pack Years: 47 Current smoker (=0) or Number of Years since Quit: <1 year REQUESTER: The referring provider advised the patient to have screening. HISTORY OF PRESENT ILLNESS: Olga Rodriguez is a 68 year old Former smoker [...] pre-disease performance w/o restriction. Modified [employer] [place] Dyspnea Scale (MMRC) I only get breathless [...] Inject 50 Units subcutaneously daily at bedtime. quqnvrwrjgj-qjebsjtcd-tjteuqkn (TRELEGY ELLIPTA) 100-62.5-25 mcg inhalation powder Inhale [...] COVID-19 original vaccine, age 12+ yr, monovalent (1d4 Pty - PURPLE TOP) 01/22/2021 02/12/2021 09/09/2021 COVID-19 vaccine, age 12+ yr, 2022- season (1d4 Pty) 09/13/2023 COVID-19 vaccine, age 12+ yr, bivalent (1d4 Pty) 08/30/2022 influenza (HD-IIV3) vaccine, age 65+ yr, [...] DATE OF EXAM: Sep 06 2022 1:24PM [facility] 0541 - CT CHEST WO IVCON [...] the upper abdomen demonstrates no interval changes. Buffer Automatic (topogram) images: No additional findings. Impression: IMPRESSION: Numerous tiny centrilobular nodules in the bilateral lungs, likely secondary to inflammatory/infectious process or small airway disease. Mild emphysema. No CT evidence of interstitial lung disease. Remote granulomatous disease. Meat Butcher: [facility] Transcribe Date/Time: Sep 07 2022 2:32P Dictated [...] medial basilar pneumonia. Lungs are otherwise clear. Meat Butcher: [employer] Transcribe Date/Time: Sep 03 2022 12:23P ... Pulmonary Function Testing: SPIROMETRY BASELINE ONLY ([id number]) - ordered on 09/15/[address], [place] [address] Test Date: 2023-09-15 Pat Name: OLGA RODRIGUEZ Department: Room: Gender: Male [employer] Airspace Control Officer: : 1955 Requested By: Order Number: [id number] Reading MD: Carly Chandler MD Interpretive Statements The exhaled (FVC) spirometry maneuver meets ATS/ERS acceptability and repeatability standards. The inspired (FIVC) spirometry maneuver is [less than/greater than] the FVC maneuver. IMPRESSION: Spirometry indicates moderate obstruction. Electronically Signed On 09-15-2023 16:45:15 EDT by Carly Chandler MD ID: [id number] Name: OLGA RODRIGUEZ Race: White Ht: 71.75 in Wt: 231.00 [...] 2.67 FEF50/FIF50 0.41 90-100 FIVC (L) 3.28 XYO02-41 (L/sec) 0.70 1.14 2.60 4.64 27 Time (sec) 13.94 FET PEF (sec) 0.12 AMINTA (L) 0.06 Vol Extrap % (%) 1 PHYSICAL EXAM: BP 144/82 Pulse 100 Wt 102.1 kg (225 lb) SpO2 96% BMI 30.73 kg/m Deferred ASSESSMENT and RECOMMENDATIONS: 1. Screening for lung cancer: Six year risk for lung cancer: 4.43% Https://[employer]..As Seen on TV/Liberian/ result/male_4.4_yes_unknown [email or web address]/[email or web address] https://youtu.be/[email or web address] I have determined that the patient [...] committed to remaining abstinent from tobacco. Andres Dash APRN.CNP NPI #: September 20, 2023 10:40 AM documented in this encounter [facility] 09-15-2023 History of Present illness Narrative Images from the original note were not included. Patient: Olga Rodriguez PCP: Tommy Hardy MD CC: follow up HPI: Olga Rodriguez 68 year old male recently former 91-zzjn-wcrs smoker with PMH significant for psoriasis, anxiety, HLD, DM, CVA, CALLI on CPAP, and COPD. Current therapy with Trelegy and as needed Albuterol. Today, patient states he was recently admitted to [facility] secondary to CVA. States he had [...] Inject 50 Units subcutaneously daily at bedtime. bdwuljolfaz-lhmsrhhhj-qztqsxnw (TRELEGY ELLIPTA) 100-62.5-25 mcg inhalation powder Inhale [...] smoker - ICD9: V15.82, ICD10: Z87.891 Former 23-pjam-iule smoker with sequelae of COPD. Is scheduled with lung cancer screening for LDCT. Portions of this documentation were copied and pasted from previous office visit notes in order to provide a cohesive continuity of the history. The note has been reviewed and edited and updated as necessary. Yoly Ornelas PA-C documented in this encounter [facility] 09-15-2023 Note [facility] 09-15-2023 Note [facility] 09-14-2023 Instructions Tommy Hardy MD - 09/14/2023 3:16 PM EDT My chart list of sugars next . documented in this encounter [facility] 09-14-2023 Note [facility] 09-14-2023 History of Present illness Narrative Patient presents with: Hospital F/U HPI: Patient presents today for office visit for hospital follow up. Seen in [facility] on 09/06/23 Discharged 09/07/23 [...] Inject 50 Units subcutaneously daily at bedtime. 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 Controlled type 2 diabetes mellitus [...] AORTA 6. Bronchiectasis without complication ([facility]) - ICD9: 494.0, ICD10: J47.9 - per pulmonary 7. Stage 3 severe COPD by GOLD classification ([facility]) - ICD9: 496, ICD10: J44.9 - [...] ICD9: 793.19, ICD10: R91.8 - per pulmonary. Tommy Hardy MD documented in this encounter [facility] 09-14-2023 History of Past i llness Narrative Problem Noted Date Diagnosed Date Resolved Date History of diabetes mellitus 09/14/2023 09/14/2023 10/05/2023 Slurred speech 09/14/2023 09/14/2023 10/05/2023 History of stroke with residual effects 09/14/2023 10/05/2023 Neurological symptoms 09/07/2023 10/05/20232022 Change in mental status 09/05/202309/21 Abnormal Doppler ultrasound of carotid artery 08/12/20 21 10/05/2023 Eczematous dermatitis 07/30/20122022 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 09/21/2016 Neoplasm of uncertain behavi or of skin: R worship face: R/O BCC 10/12/2011 09/21/2016 Actinic Keratosis [...] of this encounter (statuses as of 10/05/2023) [facility] History of Past illness Narrative* Problem [...] of uncertain behavi or of skin: R worship face: R/O BCC 10/12/2011 09/21/2016 Actinic Keratosis [...] of this encounter (statuses as of 10/07/2023) [facility] History of Past illness Narrative* Problem Noted Date Diagnosed Date Resolved Date History of diabetes mellitus 09/14/2023 09/14/2023 10/05/2023 Slurred speech 09/14/2023 09/14/2023 10/05/2023 History of stroke with residual effects 09/14/2023 10/05/2023 Neurological symptoms 09/07/2023 10/05/20233 Change in mental status 09/05/202309/21 Abnormal Doppler ultrasound of carotid artery 08/12/20 21 10/05/2023 Eczematous dermatitis 07/30/20122022 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 09/21/2016 Neoplasm of uncertain behavi or of skin: R worship face: R/O BCC 10/12/2011 09/21/2016 Actinic Keratosis [...] of this encounter (statuses as of 10/12/2023) [facility] History of Past illness Narrative* Problem [...] of uncertain behavi or of skin: R worship face: R/O BCC 10/12/2011 09/21/2016 Actinic Keratosis [...] of this encounter (statuses as of 10/22/2023) [facility] History of Past illness Narrative* Problem [...] of uncertain behavi or of skin: R worship face: R/O BCC 10/12/2011 09/21/2016 Actinic Keratosis [...] of this encounter (statuses as of 11/03/2023) [facility] History of Past illness Narrative* Problem [...] of uncertain behavi or of skin: R worship face: R/O BCC 10/12/2011 09/21/2016 Actinic Keratosis [...] of this encounter (statuses as of 11/11/2023) [facility] History of Past illness Narrative* Problem [...] of uncertain behavi or of skin: R worship face: R/O BCC 10/12/2011 09/21/2016 Actinic Keratosis [...] of this encounter (statuses as of 12/27/2023) [facility] History of Past illness Narrative* Problem [...] of uncertain behavi or of skin: R worship face: R/O BCC 10/12/2011 09/21/2016 Actinic Keratosis [...] of this encounter (statuses as of 12/30/2023) [facility] History of Past illness Narrative* Problem Noted Date Diagnosed Date Resolved Date History of diabetes mellitus 09/14/2023 09/14/2023 10/05/2023 Slurred speech 09/14/2023 09/14/2023 10/05/2023 History of stroke with residual effects 09/14/2023 10/05/2023 Neurological symptoms 09/07/2023 10/05/20232022 Change in mental status 09/05/202309/21 Abnormal Doppler ultrasound of carotid artery 08/12/20 21 10/05/2023 Eczematous dermatitis 07/30/2012 11/15/ 2023 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 09/21/2016 Neoplasm of uncertain behavi or of skin: R worship face: R/O BCC 10/12/2011 09/21/2016 Actinic Keratosis [...] of this encounter (statuses as of 12/30/2023) [facility] History of Past illness Narrative* Problem [...] of uncertain behavi or of skin: R worship face: R/O BCC 10/12/2011 09/21/2016 Actinic Keratosis [...] of this encounter (statuses as of 01/04/2024) [facility] History of Past illness Narrative* Problem [...] of uncertain behavi or of skin: R worship face: R/O BCC 10/12/2011 09/21/2016 Actinic Keratosis [...] as of this encounter (statuses as of 01/09/2024) [facility] History of Past illness Narrative* Problem [...] of uncertain behavi or of skin: R worship face: R/O BCC 10/12/2011 09/21/2016 Actinic Keratosis [...] as of this encounter (statuses as of 01/09/2024) [facility] History of Past illness Narrative* Problem [...] of uncertain behavi or of skin: R worship face: R/O BCC 10/12/2011 09/21/2016 Actinic Keratosis [...] as of this encounter (statuses as of 01/11/2024) [facility]10-25-2023 History of Past illness Narrative* Problem [...] of uncertain behavi or of skin: R worship face: R/O BCC 10/12/2011 09/21/2016 Actinic Keratosis [...] as of this encounter (statuses as of 01/12/2024) [facility]10[facility]20[facility] History of Past illness Narrative* Problem [...] of uncertain behavi or of skin: R worship face: R/O BCC 10/12/2011 09/21/2016 Actinic Keratosis [...] as of this encounter (statuses as of 01/12/2024) [facility] History of Past illness Narrative* Problem [...] of uncertain behavi or of skin: R worship face: R/O BCC 10/12/2011 09/21/2016 Actinic Keratosis [...] as of this encounter (statuses as of 01/20/2024) [facility] History of Past illness Narrative* Problem [...] of uncertain behavi or of skin: R worship face: R/O BCC 10/12/2011 09/21/2016 Actinic Keratosis [...] as of this encounter (statuses as of 01/20/2024) [facility] History of Past illness Narrative* Problem [...] of uncertain behavi or of skin: R worship face: R/O BCC 10/12/2011 09/21/2016 Actinic Keratosis [...] as of this encounter (statuses as of 01/25/2024) [facility] History of Past illness Narrative* Problem [...] of uncertain behavi or of skin: R worship face: R/O BCC 10/12/2011 09/21/2016 Actinic Keratosis [...] as of this encounter (statuses as of 01/25/2024) [facility] History of Past illness Narrative* Problem [...] of uncertain behavi or of skin: R worship face: R/O BCC 10/12/2011 09/21/2016 Actinic Keratosis [...] as of this encounter (statuses as of 01/26/2024) [facility] History of Past illness Narrative* Problem [...] of uncertain behavi or of skin: R worship face: R/O BCC 10/12/2011 09/21/2016 Actinic Keratosis [...] as of this encounter (statuses as of 01/27/2024) [facility] History of Past illness Narrative* Problem [...] of uncertain behavi or of skin: R worship face: R/O BCC 10/12/2011 09/21/2016 Actinic Keratosis [...] as of this encounter (statuses as of 01/27/2024) [facility] History of Past illness Narrative* Problem [...] of uncertain behavi or of skin: R worship face: R/O BCC 10/12/2011 09/21/2016 Actinic Keratosis [...] as of this encounter (statuses as of 02/06/2024) [facility] History of Past illness Narrative* Problem [...] of uncertain behavi or of skin: R worship face: R/O BCC 10/12/2011 09/21/2016 Actinic Keratosis [...] as of this encounter (statuses as of 02/07/2024) [facility] History of Past illness Narrative* Problem [...] of uncertain behavi or of skin: R worship face: R/O BCC 10/12/2011 09/21/2016 Actinic Keratosis [...] as of this encounter (statuses as of 02/14/2024) [facility] History of Past illness Narrative* Problem [...] of uncertain behavi or of skin: R worship face: R/O BCC 10/12/2011 09/21/2016 Actinic Keratosis [...] as of this encounter (statuses as of 02/21/2024) [facility] History of Past illness Narrative* Problem [...] of uncertain behavi or of skin: R worship face: R/O BCC 10/12/2011 09/21/2016 Actinic Keratosis [...] as of this encounter (statuses as of 02/23/2024) [facility] History of Past illness Narrative* Problem [...] of uncertain behavi or of skin: R worship face: R/O BCC 10/12/2011 09/21/2016 Actinic Keratosis [...] as of this encounter (statuses as of 02/23/2024) [facility] History of Past illness Narrative* Problem [...] of uncertain behavi or of skin: R worship face: R/O BCC 10/12/2011 09/21/2016 Actinic Keratosis [...] as of this encounter (statuses as of 02/24/2024) [facility]10[facility] History of Past illness Narrative* Problem [...] of uncertain behavi or of skin: R worship face: R/O BCC 10/12/2011 09/21/2016 Actinic Keratosis [...] as of this encounter (statuses as of 03/12/2024) [facility] Misc[facility]* Telephone Encounter - Karen Varghese [...] response. Karen Varghese Ma documented in this encounterOhio[facility]23 Miscellaneous Notes* Telephone Encounter - Alicia [...] patient. Alicia Reyes LPN documented in this encounterOhio[facility]07-14-2023 Miscellaneous Notes* Telephone Encounter - Tommy Hardy MD - 06/03/2023 7:58 AM EDT Does not look like he picked up the message. Can we call him with my response. I do not think he realizes it is the same identical med...just called different. documented in this encounterOhio[facility]05-[facility]2023 Miscellaneous Notes* Telephone Encounter - Reg Broussard [...] When form is completed, Fax form to [phone] Form has been forwarded to Nurse Practictioner: JERI Canchola LPN documented in this encounterOhio[facility]23 Miscellaneous Notes* Telephone Encounter - Marcy Cedillo LPN - 03/22/2023 10:35 AM EDT Patient phones requesting refills as follows: Requested Prescriptions Pending Prescriptions Disp Refills ntxsyahsipn-jqqirwmqr-vhgkgqjv (TRELEGY ELLIPTA) 100-62.5-25 mcg inhalation powder 1 Each 3 Sig: Inhale 1 Puff as instructed once daily. Please review and advise. Marcy Cedillo LPN documented in this encounterOhio[facility]05-01-2023 Miscellaneous Notes* Telephone Encounter - Alicia [...] patient. Alicia Reyes LPN documented in this encounterOhiohealth [facility]03-24-2023 Miscellaneous Notes* Telephone Encounter - Alicia Reyes LPN - 02/11/2023 3:04 PM EDT Referral faxed as requested. * Telephone Encounter - Tommy Hardy MD - 02/11/2023 12:35 PM EDT Referral [...] leaking wants to see Dr Church at [facility] needsreferral sent over there. documented in this encounterOhio[facility]03-20-2023 Miscellaneous Notes* Telephone Encounter - Alicia [...] patient. Alicia Reyes LPN documented in this encounterOhio[facility]12-15-2022 Miscellaneous Notes* Telephone Encounter - Zion Calhoun PA-C - 11/04/2022 6:35 PM EST The following approved medication requests have been transmitted electronically. Requested Prescriptions Signed Prescriptions Disp Refills dulaglutide (TRULICITY) 3 mg/0.5 mL pen injector 12 Each 3 Sig: Inject 3 mg subcutaneously one time a week. Zion Calhoun PA-C documented in this encounterOhiohealth [facility]12-[facility]-2022 History of Present illness Narrative* Tommy Hardy MD - 10/22/2022 2:16 PM EST Patient presents with: Follow Up HPI: Patient presents today for office visit for follow up. PSYCH: Increased Effexor at last OV to 150 mg daily. Moods are better and tolerating med. No concerns. PULM: Saw Dr. Chandler today 10/22/22 due to shortness of breath. [...] ago. MEDICATIONS: Current Outpatient Medications Medication Sig infunrpjuai-ahcfwisin-kzsnbxfz (TRELEGY ELLIPTA) 100-62.5-25 mcg inhalation powder Inhale [...] severe COPD by GOLD classification ([facility]) - ICD9: 496, ICD10: J44.9 (primary diagnosis) - continue meds. 2. Mild depressive disorder - ICD9: 311, ICD10: F32.A - VENLAFAXINE ER 150 MG CAPSULE,EXTENDED RELEASE 24 HR 3. Bronchiectasis without complication ([facility]) - ICD9: 494.0, ICD10: J47.9 - stable. Discussed importance of taking meds regularly. 4. Controlled type 2 diabetes mellitus without complication, without long-term current use of insulin ([facility]) - ICD9: 250.00, ICD10: E11.9 improved control - Continue current medications Tommy Hardy MD documented in this encounterOhiohealth [facility]12-02-2022 History of Present illness Narrative* Carly Chandler MD - 10/22/2022 8:00 AM EST Images from the original note were not included. . [facility] [place] Note Patient name: Olga Rodriguez PCP: Tommy Hardy MD Referring Physician: same Consultation requested by Dr. Hardy for an opinion regarding SOB. My final recommendations will be communicated back to the requesting physician by way of shared Medical record or letter to requestingphysician via US mail. CC: WRIGHT HPI: Olga Rodriguez 67 year old obese male former 1.5 pack a day smoker for 50 years with PMH significant for HLD, psoriasis, anxiety, diabetes, stroke, CALLI on CPAP being referred for evaluation of shortness of breath. Started a working out with a operational trainer who noticed significant labored breathing.He notes [...] DATE OF EXAM: Sep 06 2022 1:24PM [facility] 0541 - CT CHEST WO IVCON [...] 07/2010 ALLERGIES Allergen Reactions Metformin Diarrhea Penicillins nlebmxkmkio-rxprxyyxt-weqwxyql (TRELEGY ELLIPTA) 100-62.5-25 mcg inhalation powder Inhale [...] be helpful 2. Former cigarette smoker -Former 94-uoek-gaim smoker having quit in 2019 with sequelae of COPD/emphysema -Continue abstinence -Qualifies for low-dose chest CT for cancer screening but would not be due until August 2023 3. Obesity -Class II obesity, BMI 33 -Weight loss advised Carly Chandler MD [facility] [place] documented in this encounterOhiohealth [facility]11-02-2022 Miscellaneous Notes* Telephone Encounter - Alicia Reyes LPN - 09/22/2022 11:57 AM EDT Faxed back to [place] as requested. * Telephone Encounter - Tommy Hardy MD - 09/22/2022 8:18 AM EDT done * Telephone Encounter - Reg Broussard LPN - 09/21/2022 4:30 PM EDT Patient has been identified by name and date of : Yes Type of form: Physical Order from DME Form received via: Fax When form is completed, fax form to fax number provided. Form has been forwarded to: Provider's mailbox. Provider name: Dr. Hayley Broussard LPN documented in this encounterOhiohealth [facility]11-01-2022 Miscellaneous Notes* Telephone Encounter - Melody Schulz RN - 09/21/2022 10:11 AM EDT Yoly from [facility] calling and states she has received printed CPAP script for patient. Yoly requesting recent OV notes and sleep study results also. Faxed as requested to [phone]. Melody Schulz RN documented in this encounterOhiohealth [facility]10-31-2022 Miscellaneous Notes* Telephone Encounter - Zion French RN - 09/20/2022 10:05 AM EDT Left detailed vm on identified vm with provider's message below. * Telephone Encounter - Zion Calhoun PA-C - 09/19/2022 5:15 PM EDT I placed consult if he wants to establish with [facility] Dr. Chandler Thanks, Rusty Calhoun PA-C documented in this encounterOhiohealth [facility]10-21-2022 Miscellaneous Notes* Telephone Encounter - [...] Karen Varghese Ma * Telephone Encounter - Tommy Hardy MD - 09/09/2022 4:46 PM EDT Let him also know his stress test was ok. * Telephone Encounter - Alicia Reyes LPN - 09/08/2022 9:56 AM EDT Left message for patient or to call office and speak with nurse. * Telephone Encounter - Tommy Hardy MD - 09/07/2022 5:[address] shows stable tiny nodules which are not new. Has significant emphysema or asthma type changes on his pfts Refer to pulmonary to follow documented in this encounterOhiohealth [facility]10-18-2022 Miscellaneous Notes* Telephone Encounter - Aleta Teague Ma - 09/07/2022 3:44 PM EDT Keila sends fax stating that rx for CPAP needs to state that it is a replacement machine. Please file. Once filed, will fax with office note. documented in this encounterOhiohealth [facility]10-17-2022 History of Present illness Narrative* Suellen Null, RT(R) - 09/06/2022 1:00 PM EDT Radiology Service Progress Note PATIENT NAME: Olga Rodriguez DATE OF SERVICE: September 06, 2022 TIME: [...] 06, 2022 3:26 PM documented in this encounterOhiohealth [facility]ering[facility]10-17-2022 History of Present illness Narrative* ERICA Silva - 09/06/2022 10:33 AM EDT PULM FUNCTION SMARTBLOCK: Provider: Tommy Hardy MD Assisting Tech: ERICA Silva Spirometry w/BD: 1 DLCO: 1 LV - Box: 1 documented in this encounterOhiohealth [facility]10-14-2022 Miscellaneous Notes* Telephone Encounter - Aleta Teague Ma - 09/03/2022 12:54 PM EDT Patient denies any fever, cough or congestion. Please help pt set up ct scan. * Telephone Encounter - Tommy Hardy MD - 09/03/2022 12:45 PM EDT Shows some scarring. They question the possibility of pneumonia but is questionable. Make sure one more time. No fever, worsening cough or congestion. If not can consider ct of chest as well to rule out scarring or fibrosis. documented in this encounterOhiohealth [facility]10-14-2022 History of Present illness Narrative* Tommy Hardy MD - 09/03/2022 9:06 AM EDT Patient [...] antegrade flow noted. Technologist: Brynn Harrington RVT, [facility] Ordering physician: TOMMY HARDY Aorta: 3.3 cm x 3.3 at its [...] 441.4, ICD10: I71.40 - recheck one year. Tommy Hardy MD RTO in six weeks. documented in this encounterOhiohealth [facility]10-11-2022 Miscellaneous Notes* Telephone Encounter - Melody Schulz RN - 08/31/2022 3:54 PM EDT Contacted patient's and provider's response given. states she will discuss with patient and call back to make appt. Melody Schulz RN * Telephone Encounter - Tommy Hardy MD - 08/31/2022 2:43 PM EDT Needs seen by one of us. May need ekg etc. Would not wait until Dec. * Telephone Encounter - Melody cShulz RN - 08/31/2022 1:21 PM EDT Triage protocol recommends: see provider within 3 days for evaluation. states patient's SOB has not worsened and she does not feel he needs to come in for OV right away, but would like provider's advise. Next scheduled appt is 10/22. Please advise at [phone]. Reason for Disposition [1] MODERATE longstanding difficulty [...] does nothing, but they do go to [employer] during the week and patient does [...] n/a 12. TRAVEL: no Protocols used: Breathing Vnobkkoobp-EESWF-RE documented in this encounterOhiohealth [facility]10-06-2022 History of Present illness Narrative* Penny Pastor RDMS - 08/26/2022 11:30 AM EDT Radiology Service Progress Note PATIENT NAME: Olga Rodriguez DATE OF SERVICE: August 26, 2022 TIME: [...] 26, 2022 11:52 AM documented in this encounterOhiohealth [facility]10-05-2022 Miscellaneous Notes* Telephone Encounter - Danielle Sprague LPN - 08/25/2022 3:37 PM EDT faxed * Telephone Encounter - Tommy Hardy MD - 08/25/2022 2:31 PM EDT Printed. * Telephone Encounter - Tommy Hardy MD - 08/25/2022 12:[address] Crews had ordered it. Rx written. Looks like its an autopap I think. * Telephone Encounter - Danielle Sprague LPN - 08/25/2022 8:37 AM EDT On your desk, it is from 2014. * Telephone Encounter - Tommy Hardy MD - 08/25/2022 7:58 AM EDT Can we see if we can get his sleep study from [facility] in 2013. documented in this encounterOhiohealth [facility]09-30-2022 Miscellaneous Notes* Addendum Note - Tommy Hardy MD - 08/20/2022 11:58 AM EDTAddended by: TOMMY HARDY on: 08/20/2022 11:58 AM Modules accepted: Orders, SmartSet documented in this encounterOhiohealth [facility]09-30-2022 History of Present illness Narrative* Tommy Hardy MD - 08/20/2022 11:24 AM EDT Patient [...] - US CAROTID ARTERIES [facility] Tommy Hardy MD RTO in six to eight weeks. documented in this encounterOhiohealth [facility]08-12-2022 Miscellaneous Notes* Telephone Encounter - Alicia [...] patient. Alicia Reyes LPN documented in this encounterOhiohealth [facility]08-12-2022 Miscellaneous Notes* Telephone Encounter - Melody [...] Advise. Karen Varghese Ma documented in this encounterOhiohealth [facility]08-04-2022 History of Present illness Narrative* Rosemary Agustin APRN.CNP - 06/24/2022 3:32 PM EDT Chief Complaint Patient presents with: Ear Infection HPI Olga Rodriguez is a 66 year old male who [...] DROPS Rosemary Agustin APRN.CNP documented in this encounterOhiohealth [facility]08-04-2022 Miscellaneous Notes* Telephone Encounter - Carly Manriquez Ma - 06/24/2022 12:56 PM EDT Spoke to patient and scheduled for today Carly Manriquez Ma documented in this encounterOhiohealth [facility]ering[facility]08-01-2022 Instructions* Patient Instructions* Inna Roque APRN.CNP [...] contagious, but need treatment. documented in this encounterOhiohealth Pickering[facility]08-01-2022 History of Present illness Narrative* Inna Roque APRN.DOUBLE BACK OPERATOR - 06/21/2022 2:33 PM EDT This note was created using [employer]. Subjective Olga Rodriguez is a 66 year old male. 66 male with PMH of CVA, AAA, Hyperlipidemia, DM presents with complaints of right ear fullness. Acute onset today fullness & water in right ear Denies pain, fever/chills, congestion, or cough No OTC medications or remedies used UX DESIGN LEAD States I was at the doctors getting my new hearing aids this morning and they told me I should getmy ear looked at . The history is provided by the patient. No speech language pathologist was used. Ear Pain This is a [...] upon. Inna Roque APRN.CNP documented in this encounterOhiohealth [facility]ering[facility]07-27-2022 Miscellaneous Notes* Telephone Encounter - Karen Varghese Ma - 06/16/2022 10:59 AM EDT Called Client Services, spoke with Eduard. On hold for 13 minutes. Unable to add A1c. Pt sent [employer] message notifying him of result below from Provider. Made pt aware that incorrect lab was ordered and asked him to come in and complete an A1c. Apologized for inconvenience. Karen Varghese Ma * Telephone Encounter - Tommy Hadry MD - 06/16/2022 8:04 AM EDT Sugar was 215. Rest of labs ok. Can we add a1c to see where it is. documented in this encounterOhiohealth [facility]ering[facility]07-26-2022 Instructions* Patient Instructions* Isabela Hernández APRN.CNP - 06/15/2022 9:00 AM EDT 1. Start the naproxen twice daily with food X 1 week. Then you can use twice daily as needed. 2. Get the labwork. 3. Get the xray done. 4. Let us know if no better or any worsening. documented in this encounterOhiohealth Pickering[facility]07-26-2022 History of Present illness Narrative* Isabela Hernández APRN.DOUBLE BACK OPERATOR - 06/15/2022 8:48 AM EDT This is a 66 year old male who presents today with: Patient presents with: Acute Visit: pain R great toe x couple weeks; no redness/swelling HISTORY OF PRESENT ILLNESS: Olga Rodriguez is a 66 year old male. Patient [...] as needed for worsening/no improvement. Isabela Hernández APRN.DOUBLE BACK OPERATOR documented in this encounterOhiohealth [facility]ering[facility]06-15-2022 Miscellaneous Notes* Telephone Encounter - Alicia Reyes LPN - 05/05/2022 10:55 AM EDT Faxed back as requested. * Telephone Encounter - Tommy Hardy MD - 05/05/2022 10:13 AM EDT done * Telephone Encounter - Karen Varghese Ma - 05/05/2022 8:59 AM EDT Office received fax from [email or web address] for certificate of medical necessity for pt DME supplies. Routedto PCP to review and complete. Once complete fax back to [phone]. Karen Varghese Ma documented in this encounterOhiohealth [facility]ering[facility]03-28-2022 Instructions* Patient Instructions* Tommy Hardy MD - 02/15/2022 11:14 AM EDT Increase humalog to 17 units with each meal and call sugars in two weeks. Watch diet and increase exercise to help as well. documented in this encounterOhiohealth [facility]03-28-2022 History of Present illness Narrative* Tommy Hardy MD - 02/15/2022 11:00 AM EDT Patient [...] ICD9: 327.23, ICD10: G47.33 - continue cpap Tommy Hardy RTO in six months and prn. documented in this encounterOhiohealth [facility]11-22-2011 History of Past illness Narrative* Problem Noted Date Resolved Date CNH (chondrodermatitis nodularis helicis) 201009/21/2016 Neoplasm of uncertain behavi or of skin: R worship face: R/O BCC 10/12/2011 09/21/2016 Actinic Keratosis [...] of this encounter (statuses as of 02/15/2022) [facility] of Past illness Narrative* Problem Noted Date Resolved Date CNH (chondrodermatitis nodularis helicis) 201009/21/2016 Neoplasm of uncertain behavi or of skin: R worship face: R/O BCC 10/12/2011 09/21/2016 Actinic Keratosis [...] of this encounter (statuses as of 02/18/2022) [facility] of Past illness Narrative* Problem Noted Date Resolved Date CNH (chondrodermatitis nodularis helicis) 201009/21/2016 Neoplasm of uncertain behavi or of skin: R worship face: R/O BCC 10/12/2011 09/21/2016 Actinic Keratosis [...] of this encounter (statuses as of 03/24/2022) [facility] of Past illness Narrative* Problem Noted Date Resolved Date CNH (chondrodermatitis nodularis helicis) 201009/21/2016 Neoplasm of uncertain behavi or of skin: R worship face: R/O BCC 10/12/2011 09/21/2016 Actinic Keratosis [...] of this encounter (statuses as of 05/05/2022) [facility] of Past illness Narrative* Problem Noted Date Resolved Date CNH (chondrodermatitis nodularis helicis) 201009/21/2016 Neoplasm of uncertain behavi or of skin: R worship face: R/O BCC 10/12/2011 09/21/2016 Actinic Keratosis [...] of this encounter (statuses as of 06/15/2022) [facility] of Past illness Narrative* Problem Noted Date Resolved Date CNH (chondrodermatitis nodularis helicis) 201009/21/2016 Neoplasm of uncertain behavi or of skin: R worship face: R/O BCC 10/12/2011 09/21/2016 Actinic Keratosis [...] of this encounter (statuses as of 06/16/2022) [facility] of [facility] illness Narrative* Problem Noted Date Resolved Date CNH (chondrodermatitis nodularis helicis) 201009/21/2016 Neoplasm of uncertain behavi or of skin: R worship face: R/O BCC 10/12/2011 09/21/2016 Actinic Keratosis [...] of this encounter (statuses as of 06/21/2022) [facility] of [facility] illness Narrative* Problem Noted Date Resolved Date CNH (chondrodermatitis nodularis helicis) 201009/21/2016 Neoplasm of uncertain behavi or of skin: R worship face: R/O BCC 10/12/2011 09/21/2016 Actinic Keratosis [...] of this encounter (statuses as of 06/24/2022) [facility] of Past illness Narrative* Problem Noted Date Resolved Date CNH (chondrodermatitis nodularis helicis) 201009/21/2016 Neoplasm of uncertain behavi or of skin: R worship face: R/O BCC 10/12/2011 09/21/2016 Actinic Keratosis [...] of this encounter (statuses as of 06/24/2022) [facility] illness Narrative* Problem Noted Date Resolved Date CNH (chondrodermatitis nodularis helicis) 201009/21/2016 Neoplasm of uncertain behavi or of skin: R worship face: R/O BCC 10/12/2011 09/21/2016 Actinic Keratosis [...] of this encounter (statuses as of 06/25/2022) [facility] Narrative* Problem Noted Date Resolved Date CNH (chondrodermatitis nodularis helicis) 201009/21/2016 Neoplasm of uncertain behavi or of skin: R worship face: R/O BCC 10/12/2011 09/21/2016 Actinic Keratosis [...] of this encounter (statuses as of 07/02/2022) [facility] Narrative* Problem Noted Date Resolved Date CNH (chondrodermatitis nodularis helicis) 201009/21/2016 Neoplasm of uncertain behavi or of skin: R worship face: R/O BCC 10/12/2011 09/21/2016 Actinic Keratosis [...] of this encounter (statuses as of 07/05/2022) [facility]11-[facility] History of Past illness Narrative* Problem Noted Date Resolved Date CNH (chondrodermatitis nodularis helicis) 201009/21/2016 Neoplasm of uncertain behavi or of skin: R worship face: R/O BCC 10/12/2011 09/21/2016 Actinic Keratosis [...] of this encounter (statuses as of 07/20/2022) [facility]11-[facility]2011 History of Past illness Narrative* Problem Noted Date Resolved Date CNH (chondrodermatitis nodularis helicis) 201009/21/2016 Neoplasm of uncertain behavi or of skin: R worship face: R/O BCC 10/12/2011 09/21/2016 Actinic Keratosis [...] of this encounter (statuses as of 08/18/2022) [facility]11-[facility]2011 History of Past illness Narrative* Problem Noted Date Resolved Date CNH (chondrodermatitis nodularis helicis) 201009/21/2016 Neoplasm of uncertain behavi or of skin: R worship face: R/O BCC 10/12/2011 09/21/2016 Actinic Keratosis [...] of this encounter (statuses as of 08/20/2022) [facility]2011 History of Past illness Narrative* Problem Noted Date Resolved Date CNH (chondrodermatitis nodularis helicis) 201009/21/2016 Neoplasm of uncertain behavi or of skin: R worship face: R/O BCC 10/12/2011 09/21/2016 Actinic Keratosis [...] of this encounter (statuses as of 08/25/2022) [facility]2011 History of Past illness Narrative* Problem Noted Date Resolved Date CNH (chondrodermatitis nodularis helicis) 201009/21/2016 Neoplasm of uncertain behavi or of skin: R worship face: R/O BCC 10/12/2011 09/21/2016 Actinic Keratosis [...] of this encounter (statuses as of 08/27/2022) [facility] History of Past illness Narrative* Problem Noted Date Resolved Date CNH (chondrodermatitis nodularis helicis) 201009/21/2016 Neoplasm of uncertain behavi or of skin: R worship face: R/O BCC 10/12/2011 09/21/2016 Actinic Keratosis [...] of this encounter (statuses as of 08/31/2022) [facility] History of Past illness Narrative* Problem Noted Date Resolved Date CNH (chondrodermatitis nodularis helicis) 201009/21/2016 Neoplasm of uncertain behavi or of skin: R worship face: R/O BCC 10/12/2011 09/21/2016 Actinic Keratosis [...] of this encounter (statuses as of 08/31/2022) [facility] History of Past illness Narrative* Problem Noted Date Resolved Date CNH (chondrodermatitis nodularis helicis) 201009/21/2016 Neoplasm of uncertain behavi or of skin: R worship face: R/O BCC 10/12/2011 09/21/2016 Actinic Keratosis [...] of this encounter (statuses as of 09/03/2022) [facility] History of Past illness Narrative* Problem Noted Date Resolved Date CNH (chondrodermatitis nodularis helicis) 201009/21/2016 Neoplasm of uncertain behavi or of skin: R worship face: R/O BCC 10/12/2011 09/21/2016 Actinic Keratosis [...] of this encounter (statuses as of 09/06/2022) [facility] History of Past illness Narrative* Problem Noted Date Resolved Date CNH (chondrodermatitis nodularis helicis) 201009/21/2016 Neoplasm of uncertain behavi or of skin: R worship face: R/O BCC 10/12/2011 09/21/2016 Actinic Keratosis [...] of this encounter (statuses as of 09/07/2022) [facility] History of Past illness Narrative* Problem Noted Date Resolved Date CNH (chondrodermatitis nodularis helicis) 201009/21/2016 Neoplasm of uncertain behavi or of skin: R worship face: R/O BCC 10/12/2011 09/21/2016 Actinic Keratosis [...] of this encounter (statuses as of 09/07/2022) [facility] History of Past illness Narrative* Problem Noted Date Resolved Date CNH (chondrodermatitis nodularis helicis) 201009/21/2016 Neoplasm of uncertain behavi or of skin: R worship face: R/O BCC 10/12/2011 09/21/2016 Actinic Keratosis [...] of this encounter (statuses as of 09/09/2022) [facility] History of Past illness Narrative* Problem Noted Date Resolved Date CNH (chondrodermatitis nodularis helicis) 201009/21/2016 Neoplasm of uncertain behavi or of skin: R worship face: R/O BCC 10/12/2011 09/21/2016 Actinic Keratosis [...] of this encounter (statuses as of 09/10/2022) [facility] History of Past illness Narrative* Problem Noted Date Resolved Date CNH (chondrodermatitis nodularis helicis) 201009/21/2016 Neoplasm of uncertain behavi or of skin: R worship face: R/O BCC 10/12/2011 09/21/2016 Actinic Keratosis [...] of this encounter (statuses as of 09/14/2022) [facility] History of Past illness Narrative* Problem Noted Date Resolved Date CNH (chondrodermatitis nodularis helicis) 201009/21/2016 Neoplasm of uncertain behavi or of skin: R worship face: R/O BCC 10/12/2011 09/21/2016 Actinic Keratosis [...] of this encounter (statuses as of 09/20/2022) [facility] History of Past illness Narrative* Problem Noted Date Resolved Date CNH (chondrodermatitis nodularis helicis) 201009/21/2016 Neoplasm of uncertain behavi or of skin: R worship face: R/O BCC 10/12/2011 09/21/2016 Actinic Keratosis [...] of this encounter (statuses as of 09/21/2022) [facility] History of Past illness Narrative* Problem Noted Date Resolved Date CNH (chondrodermatitis nodularis helicis) 201009/21/2016 Neoplasm of uncertain behavi or of skin: R worship face: R/O BCC 10/12/2011 09/21/2016 Actinic Keratosis [...] of this encounter (statuses as of 09/22/2022) [facility] History of Past illness Narrative* Problem Noted Date Resolved Date CNH (chondrodermatitis nodularis helicis) 201009/21/2016 Neoplasm of uncertain behavi or of skin: R worship face: R/O BCC 10/12/2011 09/21/2016 Actinic Keratosis [...] of this encounter (statuses as of 10/22/2022) [facility] History of Past illness Narrative* Problem Noted Date Resolved Date CNH (chondrodermatitis nodularis helicis) 201009/21/2016 Neoplasm of uncertain behavi or of skin: R worship face: R/O BCC 10/12/2011 09/21/2016 Actinic Keratosis [...] of this encounter (statuses as of 10/22/2022) [facility]2011 History of Past illness Narrative* Problem Noted Date Resolved Date CNH (chondrodermatitis nodularis helicis) 201009/21/2016 Neoplasm of uncertain behavi or of skin: R worship face: R/O BCC 10/12/2011 09/21/2016 Actinic Keratosis [...] of this encounter (statuses as of 11/04/2022) [facility]2011 History of Past illness Narrative* Problem Noted Date Resolved Date CNH (chondrodermatitis nodularis helicis) 201009/21/2016 Neoplasm of uncertain behavi or of skin: R worship face: R/O BCC 10/12/2011 09/21/2016 Actinic Keratosis [...] of this encounter (statuses as of 02/07/2023) [facility]2011 History of Past illness Narrative* Problem Noted Date Resolved Date CNH (chondrodermatitis nodularis helicis) 201009/21/2016 Neoplasm of uncertain behavi or of skin: R worship face: R/O BCC 10/12/2011 09/21/2016 Actinic Keratosis [...] of this encounter (statuses as of 02/11/2023) [facility] History of Past illness Narrative* Problem Noted Date Resolved Date CNH (chondrodermatitis nodularis helicis) 201009/21/2016 Neoplasm of uncertain behavi or of skin: R worship face: R/O BCC 10/12/2011 09/21/2016 Actinic Keratosis [...] of this encounter (statuses as of 03/21/2023) [facility] History of Past illness Narrative* Problem Noted Date Resolved Date CNH (chondrodermatitis nodularis helicis) 201009/21/2016 Neoplasm of uncertain behavi or of skin: R worship face: R/O BCC 10/12/2011 09/21/2016 Actinic Keratosis [...] of this encounter (statuses as of 03/22/2023) [facility] History of Past illness Narrative* Problem Noted Date Resolved Date CNH (chondrodermatitis nodularis helicis) 201009/21/2016 Neoplasm of uncertain behavi or of skin: R worship face: R/O BCC 10/12/2011 09/21/2016 Actinic Keratosis [...] of this encounter (statuses as of 04/04/2023) [facility] History of Past illness Narrative* Problem Noted Date Resolved Date CNH (chondrodermatitis nodularis helicis) 201009/21/2016 Neoplasm of uncertain behavi or of skin: R worship face: R/O BCC 10/12/2011 09/21/2016 Actinic Keratosis [...] of this encounter (statuses as of 04/04/2023) [facility] History of Past illness Narrative* Problem Noted Date Diagnosed Date Resolved Date 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 09/21/2016 Neoplasm of uncertain behavi or of skin: R worship face: R/O BCC 10/12/2011 09/21/2016 Actinic Keratosis [...] of this encounter (statuses as of 06/03/2023) [facility] History of Past illness Narrative* Problem Noted Date Diagnosed Date Resolved Date 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 09/21/2016 Neoplasm of uncertain behavi or of skin: R worship face: R/O BCC 10/12/2011 09/21/2016 Actinic Keratosis [...] of this encounter (statuses as of 07/11/2023) [facility] History of Past illness Narrative* Problem Noted Date Diagnosed Date Resolved Date 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 09/21/2016 Neoplasm of uncertain behavi or of skin: R worship face: R/O BCC 10/12/2011 09/21/2016 Actinic Keratosis [...] of this encounter (statuses as of 08/10/2023) [facility]2011 History of Past illness Narrative* Problem Noted Date Diagnosed Date Resolved Date 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 09/21/2016 Neoplasm of uncertain behavi or of skin: R worship face: R/O BCC 10/12/2011 09/21/2016 Actinic Keratosis [...] of this encounter (statuses as of 08/16/2023) [facility]2011 History of Past illness Narrative* Problem Noted Date Diagnosed Date Resolved Date 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 09/21/2016 Neoplasm of uncertain behavi or of skin: R worship face: R/O BCC 10/12/2011 09/21/2016 Actinic Keratosis [...] of this encounter (statuses as of 09/05/2023) [facility]2011 History of Past illness Narrative* Problem Noted Date Diagnosed Date Resolved Date 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 09/21/2016 Neoplasm of uncertain behavi or of skin: R worship face: R/O BCC 10/12/2011 09/21/2016 Actinic Keratosis [...] of this encounter (statuses as of 09/08/2023) [facility] History of Past illness Narrative* Problem Noted Date Diagnosed Date Resolved Date 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 09/21/2016 Neoplasm of uncertain behavi or of skin: R worship face: R/O BCC 10/12/2011 09/21/2016 Actinic Keratosis [...] of this encounter (statuses as of 09/09/2023) [facility] History of Past illness Narrative* Problem Noted Date Diagnosed Date Resolved Date 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 09/21/2016 Neoplasm of uncertain behavi or of skin: R worship face: R/O BCC 10/12/2011 09/21/2016 Actinic Keratosis [...] of this encounter (statuses as of 09/15/2023) [facility] History of Past illness Narrative* Problem Noted Date Diagnosed Date Resolved Date 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 09/21/2016 Neoplasm of uncertain behavi or of skin: R worship face: R/O BCC 10/12/2011 09/21/2016 Actinic Keratosis [...] of this encounter (statuses as of 09/15/2023) [facility] History of Past illness Narrative* Problem Noted Date Diagnosed Date Resolved Date 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 09/21/2016 Neoplasm of uncertain behavi or of skin: R worship face: R/O BCC 10/12/2011 09/21/2016 Actinic Keratosis [...] of this encounter (statuses as of 09/20/2023) [facility]2011 History of Past illness Narrative* Problem Noted Date Diagnosed Date Resolved Date 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 09/21/2016 Neoplasm of uncertain behavi or of skin: R worship face: R/O BCC 10/12/2011 09/21/2016 Actinic Keratosis [...] of this encounter (statuses as of 09/27/2023) [facility]11[facility]2011 History of Past illness Narrative* Problem Noted Date Diagnosed Date Resolved Date 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 09/21/2016 Neoplasm of uncertain behavi or of skin: R worship face: R/O BCC 10/12/2011 09/21/2016 Actinic Keratosis [...] of this encounter (statuses as of 09/27/2023) [facility]2011 History of Past illness Narrative* Problem Noted Date Diagnosed Date Resolved Date 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 09/21/2016 Neoplasm of uncertain behavi or of skin: R worship face: R/O BCC 10/12/2011 09/21/2016 Actinic Keratosis [...] of this encounter (statuses as of 09/29/2023) [facility] note* Diagnosis Controlled type 2 diabetes mellitus without complication, without long-term current use of insulin (HCC)- Primary Bilateral carotid artery stenosis Occlusion and stenosis of carotid artery without mention of cerebral infarction Abdominal aortic aneurysm (AAA) without rupture (HCC) Hyperlipidemia, unspecified hyperlipidemia type CALLI (obstructive sleep apnea) Obstructive sleep apnea (adult) (pediatric) [facility] [place] [facility] Diagnosis Pain of toe, unspecified laterality- Primary [facility] [place] [facility] Diagnosis Controlled type 2 diabetes mellitus without complication, without long-term current use of insulin (HCC)- Primary documented in this encounter [facility] note* Diagnosis Acute otitis media, right- Primary Unspecified otitis media [facility] [place] [facility] Diagnosis Acute otitis externa of right ear, unspecified type- Primary [facility] [place] [facility] Diagnosis Pain of toe, unspecified laterality- Primary Controlled type 2 diabetes mellitus without complication, without long-term current use of insulin (HCC) [facility] [place] [facility] Diagnosis Controlled type 2 diabetes mellitus [...] unspecified single disease [facility] Diagnosis CALLI (obstructive sleep apnea)- Primary Obstructive sleep apnea (adult) (pediatric) [facility] Diagnosis Abdominal aortic aneurysm (AAA) without rupture [facility] [place] [facility] Diagnosis SOB (shortness of breath)- Primary Shortness of breath CALLI (obstructive sleep apnea) Obstructive sleep apnea (adult) (pediatric) Cough, unspecified type Abdominal aortic aneurysm (AAA) without rupture, unspecified part [facility] SOB (shortness of breath) Shortness of breath [facility] [place] [facility] Diagnosis SOB (shortness of breath) Shortness of breath [facility] Diagnosis Lung fibrosis (HCC) Postinflammatory pulmonary fibrosis SOB (shortness of breath) Shortness of breath [facility] [place] [facility] Diagnosis CALLI (obstructive sleep apnea) Obstructive sleep apnea (adult) (pediatric) [facility] 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 SOB (shortness of breath) Shortness of breath [facility] [place] [facility]* Diagnosis At risk for shortness of breath- Primary SOB (shortness of breath) Shortness of breath [facility] [place] [facility] Diagnosis Bronchiectasis without complication (HCC)- Primary Bronchiectasis without acute exacerbation CALLI (obstructive sleep apnea) Obstructive sleep apnea (adult) (pediatric) [facility] [place] [facility]* Diagnosis Stage 3 severe COPD by GOLD classification ([facility])- Primary Former cigarette smoker Personal history of tobacco use, presenting hazards to health Class 1 obesity due to excess calories with body mass index (BMI) of 33.0 to 33.9 in adult, unspecified whether serious comorbidity present [facility] [place] [facility] Diagnosis Stage 3 severe COPD by GOLD classification ([facility])- Primary Mild depressive disorder Bronchiectasis without complication (HCC) Bronchiectasis without acute exacerbation Controlled type 2 diabetes mellitus without complication, without long-term current use of insulin ([facility]) [facility] Diagnosis Controlled type 2 diabetes mellitus without complication, without long-term current use of insulin (HCC) [facility] [place] [facility]* Diagnosis Post-void dribbling- Primary documented in this encounter [facility] note* Diagnosis Cigarette smoker- Primary Tobacco use disorder documented in this encounter [facility] note* Diagnosis History of stroke with [...] of lung field documented in this encounter [facility] note* Diagnosis Moderate COPD (chronic obstructive pulmonary disease) (HCC)- Primary Chronic airway obstruction, not elsewhere classified Former cigarette smoker Personal history of tobacco use, presenting hazards to health documented in this encounter [facility] note* Diagnosis Encounter for screening for lung cancer- Primary Former cigarette smoker Personal history of tobacco use, presenting hazards to health documented in this encounter [facility] note* Diagnosis Abdominal aortic aneurysm (AAA) without rupture, unspecified part (HCC) documented in this encounter [facility] note* Diagnosis Personal history of tobacco use, presenting hazards to health- Primary documented in this encounter [facility] note* Diagnosis Cerebrovascular accident (CVA), unspecified mechanism (HCC)- Primary Controlled type 2 diabetes mellitus without complication, without long-term current use of insulin (HCC) History of diabetes mellitus Personal history of other endocrine, metabolic, and immunity disorders Infarction of thalamus (HCC) Hyperlipidemia, unspecified hyperlipidemia type [facility] [place] [facility]* Diagnosis Controlled type 2 diabetes mellitus without complication, without long-term current use of insulin (HCC) documented in this encounter [facility] note* Diagnosis Controlled type 2 diabetes mellitus without complication, without long-term current use of insulin (HCC)- Primary [facility] [place] [facility]* Diagnosis Cerebrovascular accident (CVA), unspecified mechanism (HCC)- Primary [facility] [place] [facility]* Diagnosis Moderate COPD (chronic obstructive pulmonary disease) (HCC)- Primary Chronic airway obstruction, not elsewhere classified [facility] [place] [facility]* Diagnosis Controlled type 2 diabetes mellitus without complication, without long-term current use of insulin (HCC)- Primary [facility] [place] [facility]* Diagnosis Gastroparesis Controlled type 2 diabetes mellitus without complication, without long-term current use of insulin (HCC) Hyperglycemia Other abnormal glucose [facility] [place] [facility]* Diagnosis Obstructive jaundice- Primary Other specified disorders of biliary tract Controlled type 2 diabetes mellitus without complication, without long-term current use of insulin (HCC) Gastroparesis Cerebrovascular accident (CVA), unspecified mechanism (HCC) [facility] [place] [facility]* Diagnosis Leukocytosis, unspecified type- Primary Elevated liver enzymes Other nonspecific abnormal serum enzyme levels [facility] [place] [facility]* Diagnosis Controlled type 2 diabetes mellitus without complication, without long-term current use of insulin (HCC)- Primary [facility] [place] [facility]* Diagnosis Controlled type 2 diabetes mellitus without complication, without long-term current use of insulin (HCC)- Primary Memory loss Cerebrovascular accident (CVA), unspecified mechanism (HCC) Infarction of thalamus (HCC) Abdominal aortic aneurysm (AAA) without rupture, unspecified part (HCC) Stage 3 severe COPD by GOLD classification ([facility]) [facility] [place] [facility]* Diagnosis Thrombocytosis- Primary Essential thrombocythemia Elevated liver enzymes Other nonspecific abnormal serum enzyme levels [facility] [place] [facility]* Diagnosis Controlled type 2 diabetes mellitus without complication, without long-term current use of insulin (HCC) [facility] [place] [facility]* Diagnosis Moderate COPD (chronic obstructive pulmonary disease) (HCC)- Primary Chronic airway obstruction, not elsewhere classified Cigarette smoker Tobacco use disorder Granulomatous disease (HCC) Functional disorders of polymorphonuclear neutrophils [facility] [place] [facility]* Diagnosis Cerebrovascular accident (CVA), unspecified mechanism (HCC)- Primary Abdominal aortic aneurysm (AAA) without rupture, unspecified part (HCC) CALLI (obstructive sleep apnea) Obstructive sleep apnea (adult) (pediatric) Stage 3 severe COPD by GOLD classification (HCC) Controlled type 2 diabetes mellitus without complication, without long-term current use of insulin (HCC) Hyperglycemia Other abnormal glucose Bilateral carotid artery stenosis Occlusion and stenosis of carotid artery without mention of cerebral infarction History of cerebrovascular accident Transient ischemic attack (TIA), and cerebral infarction without residual deficits Obstructive jaundice Other specified disorders of biliary tract Urinary retention Retention of urine, unspecified Tinea cruris Dermatophytosis of groin and perianal area [facility] [place] [facility] Diagnosis Mild depressive disorder [facility] [place] [facility] Diagnosis Controlled type 2 diabetes mellitus without complication, without long-term current use of insulin (HCC) documented [facility] [place] [facility] Diagnosis Acute pain of left knee- Primary Abrasion of left knee, initial encounter [facility] [place] [facility] Diagnosis Closed nondisplaced fracture of left patella, unspecified fracture morphology, initial encounter- Primary [facility] [place] [facility]* Diagnosis Diarrhea, unspecified type- Primary [facility] [place] [facility] Diagnosis Acute pain of left knee [facility] [place] [facility] Diagnosis Diarrhea, unspecified type- Primary Polyneuropathy Unspecified hereditary and idiopathic peripheral neuropathy Vascular dementia, uncomplicated (HCC) Vascular dementia, uncomplicated Controlled type 2 diabetes mellitus without complication, without long-term current use of insulin (HCC) Abdominal aortic aneurysm (AAA) without rupture, unspecified part (HCC) CALLI (obstructive sleep apnea) Obstructive sleep apnea (adult) (pediatric) Stage 3 severe COPD by GOLD classification (HCC) Hyperlipidemia, unspecified hyperlipidemia type Bronchiectasis without complication (HCC) Bronchiectasis without acute exacerbation Lung nodules Other nonspecific abnormal finding of lung field Bilateral carotid artery stenosis Occlusion and stenosis of carotid artery without mention of cerebral infarction Encounter for screening examination for other mental health and behavioral disorders Anemia, unspecified type [facility] [place] [facility] Diagnosis Iron deficiency anemia, unspecified iron deficiency anemia type- Primary documented in this encounter [facility] for referral (narrative)* Diagnostic Procedure Only (Routine) - Closed Specialty Diagnoses / Procedures Referred By Contac t Referred To Contact XR IMAGING Diagnoses Pain of toe, unspecified laterality Procedures XR TOE AP/LAT/OBL LEFT RADEX TOE MINIMUM 2 VIEWS HaIsabela miramontes APRN.JERI [address] [place] [address] Xr Imaging Referral ID Status Reason Start Date Expiration Date V isits Requested Visits Authorized [id number] Closed Auto-Generate d Referral 06/15/2022 07/15/2023 1 1 [facility] for referral (narrative)* Outpatient Procedure (Routine) - Authorized Specialty Diagnoses / Procedures Referred By Contac t Referred To Contact [facility] Diagnoses Bilateral carotid artery stenosis Procedures US CAROTID ARTERIES [facility] VAS LAB DUPLEX SCAN EXTRACRANIAL ART COMPL BI STUDY Tommy Hardy MD [address] [place] [address] [facility] Vascular [place] [address] [place] [address] Referral ID Status Reason Start Date Expiration Date Visits Requested Visits Authorized [id number] Authorized Auto-Generat ed Referral 08/20/2022 08/20/2023 1 1 * Diagnostic Procedure Only (Routine) - Authorized Specialty Diagnoses / Procedures Referred By Contac t Referred To Contact US IMAGING Diagnoses Abdominal aortic aneurysm (AAA) without rupture Procedures US DOPPLER AORTA DUP-SCAN ARTL DANIS ABDL/PEL/SCROT&/RPR ORGN LMT Tommy Hardy MD [address] [place] [address] Us Imaging Referral ID Status Reason Start Date Expiration Date Visits Requested Visits Authorized [id number] Authorized Auto-Generat ed Referral 08/20/2022 09/19/2023 1 1 * Diagnostic Procedure Only (Routine) - Authorized Specialty Diagnoses / Procedures Referred By Contac t Referred To Contact US IMAGING Diagnoses Abdominal aortic aneurysm (AAA) without rupture Procedures US ABD AORTA US RETROPERITONEAL REAL TIME W/IMAGE LIMITED Tommy Hardy MD [address] [place] [address] Us Imaging Referral ID Status Reason Start Date Expiration Date Visits Requested Visits Authorized [id number] Authorized Auto-Generat ed Referral 08/20/2022 09/19/2023 1 1 [facility] for referral (narrative)* Diagnostic Procedure Only (Routine) - Closed Specialty Diagnoses / Procedures Referred By Contac t Referred To Contact US IMAGING Diagnoses Abdominal aortic aneurysm (AAA) without rupture Procedures US DOPPLER AORTA DUP-SCAN ARTL DANIS ABDL/PEL/SCROT&/RPR ORGN LMT Tommy Hardy MD [address] [place] [address] Us Imaging Referral ID Status Reason Start Date Expiration Date V isits Requested Visits Authorized [id number] Closed Auto-Generate d Referral 08/20/2022 09/19/2023 1 1 * Diagnostic Procedure Only (Routine) - Closed Specialty Diagnoses / Procedures Referred By Contac t Referred To Contact US IMAGING Diagnoses Abdominal aortic aneurysm (AAA) without rupture Procedures US ABD AORTA US RETROPERITONEAL REAL TIME W/IMAGE LIMITED Tommy Hardy MD [address] [place] [address] Us Imaging Referral ID Status Reason Start Date Expiration Date V isits Requested Visits Authorized [id number] Closed Auto-Generate d Referral 08/20/2022 09/19/2023 1 1 [facility] for referral (narrative)* Outpatient Procedure (Routine) - Authorized Specialty Diagnoses / Procedures Referred By Contac t Referred To Contact [facility] Diagnoses SOB (shortness of breath) Procedures SPIROMETRY WITH DILATOR IF OBSTRUCTED BRNCDILAT RSPSE SPMTRY PRE&POST-BRNCDILAT ADMN Tommy Hardy MD [address] [place] [address] Res[facility] [place] [address] [place] [address] Referral ID Status Reason Start Date Expiration Date Visits Requested Visits Authorized [id number] Authorized Auto-Generat ed Referral 2 10/03/2023 1 1 * Outpatient Procedure (Routine) - Authorized Specialty Diagnoses / Procedures Referred By Contac t Referred To Contact [facility] Diagnoses SOB (shortness of breath) Procedures LUNG DIFFUSION CAPACITY (DLCO) DIFFUSING CAPACITY Tommy Hardy MD [address] [place] [address] [address] Referral ID Status Reason Start Date Expiration Date Visits Requested Visits Authorized [id number] Authorized Auto-Generat ed Referral 2 10/03/2023 1 1 * Outpatient Procedure (Routine) - Authorized Specialty Diagnoses / Procedures Referred By Contac t Referred To Contact [facility] Diagnoses SOB (shortness of breath) Procedures LUNG VOLUMES Tommy Hardy MD [address] [place] [address] [address] Referral ID Status Reason Start Date Expiration Date Visits Requested Visits Authorized [id number] Authorized Auto-Generat ed Referral 2 10/03/2023 1 1 * Outpatient Procedure (Routine) - Authorized Specialty Diagnoses / Procedures Referred By Contac t Referred To Contact [facility] Diagnoses SOB (shortness of breath) Procedures ECG COMPLETE ECG ROUTINE ECG W/LEAST 12 LDS W/I&R Tommy Hardy MD [address] [place] [address] [facility] Vascular [address] [address] Referral ID Status Reason Start Date Expiration Date Visits Requested Visits Authorized [id number] Authorized Auto-Generat ed Referral 2 09/03/2023 1 1 [facility] for referral (narrative)* Diagnostic Procedure Only (Routine) - Authorized Specialty Diagnoses / Procedures Referred By Toribioac t Referred To Contact US IMAGING Diagnoses Abdominal aortic aneurysm (AAA) without rupture, unspecified part (HCC) Procedures US DOPPLER AORTA DUP-SCAN ARTL DANIS ABDL/PEL/SCROT&/RPR ORGN LMT Tommy Hardy MD [address] [place] [address] Us Imaging [id number] Referral ID Status Reason Start Date Expiration Date Visits Requested Visits Authorized [id number] Authorized Auto-Generat ed Referral 3 10/13/2024 1 1 * Diagnostic Procedure Only (Routine) - Authorized Specialty Diagnoses / Procedures Referred By Starr t Referred To Contact US IMAGING Diagnoses Abdominal aortic aneurysm (AAA) without rupture, unspecified part (HCC) Procedures US ABD AORTA US RETROPERITONEAL REAL TIME W/IMAGE LIMITED Tommy Hardy MD [address] [place] [address] Us Imaging [id number] Referral ID Status Reason Start Date Expiration Date Visits Requested Visits Authorized [id number] Authorized Auto-Generat ed Referral 3 10/13/2024 1 1 * Consult, Test, Treat (Routine) - Authorized Specialty Diagnoses / Procedures [facility] To Contact Neurology Diagnoses Cerebrovascular accident (CVA), unspecified mechanism (HCC) Infarction of thalamus (HCC) Procedures CONSULT TO NEUROLOGY OFFICE/OUTPATIENT [facility] MDM 60-74 MINUTES Tommy Hardy MD [address] [place] [address] Referral ID Status Reason Start Date Expiration Date Visits Requested Visits Authorized [id number] Authorized PCP Requested Referral 3 09/13/2024 1 1 * Occupational Therapy (Routine) - Authorized Specialty Diagnoses / Procedures Referred By Contac t Referred To Contact [facility] Diagnoses History of stroke with residual effects Procedures CONSULT TO DESKTOP PUBLISHING OPERATOR OCCUPATIONAL THERAPY EVAL HIGH COMPLEX 60 MINS Tommy Hardy MD [address] [place] [address] [address] Referral ID Status Reason Start Date Expiration Date Visits Requested Visits Authorized [id number] Authorized PCP Requested Referral Auto-Generate d Referral 3 09/13/2024 99 99 * Speech Therapy (Routine) - Authorized Specialty Diagnoses / Procedures Referred By Starr yung Referred To Contact [facility] Diagnoses History of stroke with residual effects Procedures CONSULT TO SPEECH THERAPY OFFICE/OUTPATIENT [facility] MDM 60-74 MINUTES Tommy Hardy MD [address] [place] [address] [address] Referral ID Status Reason Start Date Expiration Date Visits Requested Visits Authorized [id number] Authorized Auto-Generat ed Referral 3 09/13/2024 99 99 * Physical Therapy (Routine) - Authorized Specialty Diagnoses / Procedures Referred By Starr yung Referred To Contact [facility] Diagnoses History of stroke with residual effects Procedures CONSULT TO PHYSICAL THERAPY PHYSICAL THERAPY EVALUATION HIGH COMPLEX 45 MINS Tommy Hardy MD [address] [place] [address] [address] Referral ID Status Reason Start Date Expiration Date Visits Requested Visits Authorized [id number] Authorized PCP Requested Referral Auto-Generate d Referral 3 09/13/2024 99 99 [facility] for referral (narrative)* Diagnostic Procedure Only (Routine) - Closed Specialty Diagnoses / Procedures Referred By Contac t Referred To Contact US IMAGING Diagnoses Abdominal aortic aneurysm (AAA) without rupture, unspecified part (HCC) Procedures US DOPPLER AORTA DUP-SCAN ARTL DANIS ABDL/PEL/SCROT&/RPR ORGN LMT Tommy Hardy MD [address] [place] [address] [place] [address] Referral ID Status Reason Start Date Expiration Date V isits Requested Visits Authorized [id number] Closed Auto-Generate d Referral 09/14/2023 10/13/2024 1 1 * Diagnostic Procedure Only (Routine) - Closed Specialty Diagnoses / Procedures Referred By Contac t Referred To Contact US IMAGING Diagnoses Abdominal aortic aneurysm (AAA) without rupture, unspecified part (HCC) Procedures US ABD AORTA US RETROPERITONEAL REAL TIME W/IMAGE LIMITED Tommy Hardy MD [address] [place] [address] Us Imaging [id number] Referral ID Status Reason Start Date Expiration Date V isits Requested Visits Authorized [id number] Closed Auto-Generate d Referral 09/14/2023 10/13/2024 1 1 [facility] for referral (narrative)* Outpatient Procedure (Routine) - Authorized Specialty Diagnoses / Procedures Referred By Toribioac t Referred To Contact [facility] Diagnoses Moderate COPD (chronic obstructive pulmonary disease) (HCC) Procedures SPIROMETRY WITH DILATOR IF OBSTRUCTED BRNCDILAT RSPSE SPMTRY PRE&POST-BRNCDILAT Carly Mancilla MD [address] [place] [address] Respiratory [place] [address] [place] [id number] Referral ID Status Reason Start Date Expiration Date Visits Requested Visits Authorized [id number] Authorized Auto-Generat ed Referral 03/20/2024 04/19/2025 1 1 [facility] for referral (narrative)* Diagnostic Procedure Only (Urgent) - New Request Specialty Diagnoses / Procedures Referred By Contac t Referred To Contact XR IMAGING Diagnoses Acute pain of left knee Procedures XR KNEE GENERAL 4V AP BOTH/PA BOTH/LAT/MERC LEFT RADIOLOGIC EXAM KNEE COMPLETE 4/MORE VIEWS Anton Fish PA [address] [place] [address] [place] [address] Referral ID Status Reason Start Date Expiration Date Visits Requested Visits Authorized [id number] New Request Auto-Generat ed Referral 06/17/2024 07/17/2025 1 1 [facility] for referral (narrative)* Diagnostic Procedure Only (Urgent) - Closed Specialty Diagnoses / Procedures Referred By Contac t Referred To Contact XR IMAGING Diagnoses Acute pain of left knee Procedures XR KNEE GENERAL 4V AP BOTH/PA BOTH/LAT/MERC LEFT RADIOLOGIC EXAM KNEE COMPLETE 4/MORE VIEWS Anton Fish PA [address] [place] [address] [place] [address] Referral ID Status Reason Start Date Expiration Date V isits Requested Visits Authorized [id number] Closed Auto-Generate d Referral 06/17/2024 07/17/2025 1 1 [facility] for visit Narrative* Diagnostic Procedure Only (Urgent) - Closed Specialty Diagnoses / Procedures Referred By Contac t Referred To Contact XR IMAGING Diagnoses Acute pain of left knee Procedures XR KNEE GENERAL 4V AP BOTH/PA BOTH/LAT/MERC LEFT RADIOLOGIC EXAM KNEE COMPLETE 4/MORE VIEWS Anton Fish PA [address] [place] [address] [place] [address] Referral ID Status Reason Start Date Expiration Date V isits Requested Visits Authorized [id number] Closed Auto-Generate d Referral 06/17/2024 07/17/2025 1 1 [facility] Advance Directives No Advanced Directives Records FoundDocuments on File Type Date Recorded Patient Closing Specialist Expl anation Advance Directive(s) 10/06/2021 6:19 AM Advance Directive(s) 09/15/2021 10:31 AM Advance Directive(s) 06/06/2017 8:13 AM Documents on File Type Date Recorded Patient Closing Specialist Expl anation Advance Directive(s) 10/06/2021 6:19 AM [...] unspecified laterality Procedures CONSULT TO PODIATRY OFFICE/OUTPATIENT [facility] 60-74 MINUTES Tommy Hardy MD [address] [place] [address] Referral ID Status Reason Start Date Expiration Date Visits Requested Visits Authorized [id number] Authorized PCP Requested Referral 06/25/2022 06/25/2023 1 1 Specialty Diagnoses / Procedures Referred By Contac t Referred To Contact CT IMAGING Diagnoses Lung fibrosis (HCC) SOB (shortness of breath) Procedures CT CHEST WO IVCON DIAGNOSTIC COMPUTED TOMOGRAPHY THORAX W/O CNTRST Tommy Hardy MD [address] [place] [address] [address] [address] Referral ID Status Reason Start Date Expiration Date V isits Requested Visits Authorized [id number] Closed Auto-Generate d Referral 09/03/2022 10/03/2023 1 1 Specialty Diagnoses / Procedures Referred By Contac t Referred To Contact Pulmonary [facility] Critical Care Medicine Diagnoses SOB (shortness of breath) Procedures CONSULT TO PULM/CRITICAL CARE OFFICE/OUTPATIENT [facility] 60-74 MINUTES Tommy Hardy MD [address] [place] [address] Referral ID Status Reason Start Date Expiration Date Visits Requested Visits Authorized [id number] Authorized PCP Requested Referral 2 09/07/2023 1 1 Specialty Diagnoses / Procedures Referred By Contac t Referred To Contact Urology Diagnoses Post-void dribbling Procedures CONSULT TO UROLOGY Tommy Hardy MD [address] [place] [address] Referral ID Status Reason Start Date Expiration Date Visits Requested Visits Authorized [id number] Ref Not Required PCP Requested Referral 02/11/2023 02/11/2024 1 1 Specialty Diagnoses / Procedures Referred By Contac t Referred To Contact CT IMAGING Diagnoses Former cigarette smoker Procedures CT LUNG SCREEN WO IVCON COMPUTED TOMOGRAPHY THORAX LW DOSE LNG CA 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, HARJINDER.DOUBLE BACK OPERATOR [address] [place] [address] Ct Imaging [place] [address] Referral ID Status Reason Start Date Expiration Date Visits Requested Visits Authorized [id number] Authorized Auto-Generat ed Referral 3 10/19/2024 1 1 Specialty Diagnoses / Procedures Referred By Contac t Referred To Contact CT IMAGING Diagnoses Personal history of tobacco use, presenting hazards to health Procedures CT LUNG SCREEN WO IVCON COMPUTED TOMOGRAPHY THORAX LW DOSE LNG CA SCR Angeles Dillon, CHEMISTRY DEPARTMENT CHAIR.DOUBLE BACK OPERATOR [address] [place] [address] Ct Imaging [place] [address] Referral ID Status Reason Start Date Expiration Date Visits Requested Visits Authorized [id number] Pending Review Auto-Generat ed Referral 09/29/2023 10/28/2024 1 1 Specialty Diagnoses / Procedures Referred By Contac t Referred To Contact Endocrinology Diagnoses Controlled type 2 diabetes mellitus without complication, without long-term current use of insulin (HCC) Procedures CONSULT TO ENDOCRINOLOGY OFFICE/OUTPATIENT [facility] 60 MINUTES Tommy Hardy MD [address] [place] [address] Referral ID Status Reason Start Date Expiration Date Visits Requested Visits Authorized [id number] Authorized PCP Requested Referral 01/25/2024 01/24/2025 1 1 Specialty Diagnoses / Procedures Referred By Contac t Referred To Contact Vascular Surgery Diagnoses Bilateral carotid artery stenosis Procedures CONSULT TO VASCULAR SURGERY OFFICE/OUTPATIENT [facility] 60 MINUTES Tommy Hardy MD [address] [place] [address] Referral ID Status Reason Start Date Expiration Date Visits Requested Visits Authorized [id number] Authorized PCP Requested Referral 04/18/2024 04/18/2025 1 1 Specialty Diagnoses / Procedures Referred By Contac t Referred To Contact Orthopedics Diagnoses Closed nondisplaced fracture of left patella, unspecified fracture morphology, initial encounter Procedures CONSULT PANEL TO ORTHOPAEDICS OFFICE/OUTPATIENT [facility] 60 MINUTES April Kapoor APRN.DOUBLE BACK OPERATOR [address] [place] [address] Referral ID Status Reason Start Date Expiration Date Visits Requested Visits Authorized [id number] Authorized PCP Requested Referral 06/18/2024 06/18/2025 1 1 Summary Purpose Family History No Family History Records Found Additional Source Comments Source Comments (unrecognize d section and content) In the event this informatio n is protected by the Federal Confidentiality of Alcohol and Drug Abuse Patient Records regulations: The Federal rules restrict any use of the information to criminally investigate or prosecute any alcohol or drug abuse patient.[facility] the event this information is protected by the Federal Confidentiality of Alcohol and Drug Abuse Patient Records regulations: The Federal rules restrict any use of the information to criminally investigate or prosecute any alcohol or drug abuse patient.[facility] the event this information is protected by the Federal Confidentiality of Alcohol and Drug Abuse Patient Records regulations: The Federal rules restrict any use of the information to criminally investigate or prosecute any alcohol or drug abuse patient.[facility] the event this information is protected by the Federal Confidentiality of Alcohol and Drug Abuse Patient Records regulations: The Federal rules restrict any use of the information to criminally investigate or prosecute any alcohol or drug abuse patient.[facility] the event this information is protected by the Federal Confidentiality of Alcohol and Drug Abuse Patient Records regulations: The Federal rules restrict any use of the information to criminally investigate or prosecute any alcohol or drug abuse patient.[facility] the event this information is protected by the Federal Confidentiality of Alcohol and Drug Abuse Patient Records regulations: The Federal rules restrict any use of the information to criminally investigate or prosecute any alcohol or drug abuse patient.[facility] the event this information is protected by the Federal Confidentiality of Alcohol and Drug Abuse Patient Records regulations: The Federal rules restrict any use of the information to criminally investigate or prosecute any alcohol or drug abuse patient.[facility] the event this information is protected by the Federal Confidentiality of Alcohol and Drug Abuse Patient Records regulations: The Federal rules restrict any use of the information to criminally investigate or prosecute any alcohol or drug abuse patient.[facility] the event this information is protected by the Federal Confidentiality of Alcohol and Drug Abuse Patient Records regulations: The Federal rules restrict any use of the information to criminally investigate or prosecute any alcohol or drug abuse patient.[facility] the event this information is protected by the Federal Confidentiality of Alcohol and Drug Abuse Patient Records regulations: The Federal rules restrict any use of the information to criminally investigate or prosecute any alcohol or drug abuse patient.[facility] the event this information is protected by the Federal Confidentiality of Alcohol and Drug Abuse Patient Records regulations: The Federal rules restrict any use of the information to criminally investigate or prosecute any alcohol or drug abuse patient.[facility] the event this information is protected by the Federal Confidentiality of Alcohol and Drug Abuse Patient Records regulations: The Federal rules restrict any use of the information to criminally investigate or prosecute any alcohol or drug abuse patient.[facility] the event this information is protected by the Federal Confidentiality of Alcohol and Drug Abuse Patient Records regulations: The Federal rules restrict any use of the information to criminally investigate or prosecute any alcohol or drug abuse patient.[facility] the event this information is protected by the Federal Confidentiality of Alcohol and Drug Abuse Patient Records regulations: The Federal rules restrict any use of the information to criminally investigate or prosecute any alcohol or drug abuse patient.[facility] the event this information is protected by the Federal Confidentiality of Alcohol and Drug Abuse Patient Records regulations: The Federal rules restrict any use of the information to criminally investigate or prosecute any alcohol or drug abuse patient.[facility] the event this information is protected by the Federal Confidentiality of Alcohol and Drug Abuse Patient Records regulations: The Federal rules restrict any use of the information to criminally investigate or prosecute any alcohol or drug abuse patient.[facility] the event this information is protected by the Federal Confidentiality of Alcohol and Drug Abuse Patient Records regulations: The Federal rules restrict any use of the information to criminally investigate or prosecute any alcohol or drug abuse patient.[facility]In the event this information is protected by the Federal Confidentiality of Alcohol and Drug Abuse Patient Records regulations: The Federal rules restrict any use of the information to criminally investigate or prosecute any alcohol or drug abuse patient.[facility]In the event this information is protected by the Federal Confidentiality of Alcohol and Drug Abuse Patient Records regulations: The Federal rules restrict any use of the information to criminally investigate or prosecute any alcohol or drug abuse patient.[facility]In the event this information is protected by the Federal Confidentiality of Alcohol and Drug Abuse Patient Records regulations: The Federal rules restrict any use of the information to criminally investigate or prosecute any alcohol or drug abuse patient.[facility]In the event this information is protected by the Federal Confidentiality of Alcohol and Drug Abuse Patient Records regulations: The Federal rules restrict any use of the information to criminally investigate or prosecute any alcohol or drug abuse patient.[facility]In the event this information is protected by the Federal Confidentiality of Alcohol and Drug Abuse Patient Records regulations: The Federal rules restrict any use of the information to criminally investigate or prosecute any alcohol or drug abuse patient.[facility] HospitalIn the event this information is protected by the Federal Confidentiality of Alcohol and Drug Abuse Patient Records regulations: The Federal rules restrict any use of the information to criminally investigate or prosecute any alcohol or drug abuse patient.[facility] HospitalIn the event this information is protected by the Federal Confidentiality of Alcohol and Drug Abuse Patient Records regulations: The Federal rules restrict any use of the information to criminally investigate or prosecute any alcohol or drug abuse patient.[facility] HospitalIn the event this information is protected by the Federal Confidentiality of Alcohol and Drug Abuse Patient Records regulations: The Federal rules restrict any use of the information to criminally investigate or prosecute any alcohol or drug abuse patient.[facility] HospitalIn the event this information is protected by the Federal Confidentiality of Alcohol and Drug Abuse Patient Records regulations: The Federal rules restrict any use of the information to criminally investigate or prosecute any alcohol or drug abuse patient.[facility] HospitalIn the event this information is protected by the Federal Confidentiality of Alcohol and Drug Abuse Patient Records regulations: The Federal rules restrict any use of the information to criminally investigate or prosecute any alcohol or drug abuse patient.[facility]In the event this information is protected by the Federal Confidentiality of Alcohol and Drug Abuse Patient Records regulations: The Federal rules restrict any use of the information to criminally investigate or prosecute any alcohol or drug abuse patient.[facility] HospitalIn the event this information is protected by the Federal Confidentiality of Alcohol and Drug Abuse Patient Records regulations: The Federal rules restrict any use of the information to criminally investigate or prosecute any alcohol or drug abuse patient.[facility] HospitalIn the event this information is protected by the Federal Confidentiality of Alcohol and Drug Abuse Patient Records regulations: The Federal rules restrict any use of the information to criminally investigate or prosecute any alcohol or drug abuse patient.[facility] HospitalIn the event this information is protected by the Federal Confidentiality of Alcohol and Drug Abuse Patient Records regulations: The Federal rules restrict any use of the information to criminally investigate or prosecute any alcohol or drug abuse patient.[facility] HospitalIn the event this information is protected by the Federal Confidentiality of Alcohol and Drug Abuse Patient Records regulations: The Federal rules restrict any use of the information to criminally investigate or prosecute any alcohol or drug abuse patient.[facility] HospitalIn the event this information is protected by the Federal Confidentiality of Alcohol and Drug Abuse Patient Records regulations: The Federal rules restrict any use of the information to criminally investigate or prosecute any alcohol or drug abuse patient.[facility] HospitalIn the event this information is protected by the Federal Confidentiality of Alcohol and Drug Abuse Patient Records regulations: The Federal rules restrict any use of the information to criminally investigate or prosecute any alcohol or drug abuse patient.[facility] HospitalIn the event this information is protected by the Federal Confidentiality of Alcohol and Drug Abuse Patient Records regulations: The Federal rules restrict any use of the information to criminally investigate or prosecute any alcohol or drug abuse patient.[facility] HospitalIn the event this information is protected by the Federal Confidentiality of Alcohol and Drug Abuse Patient Records regulations: The Federal rules restrict any use of the information to criminally investigate or prosecute any alcohol or drug abuse patient.[facility] HospitalIn the event this information is protected by the Federal Confidentiality of Alcohol and Drug Abuse Patient Records regulations: The Federal rules restrict any use of the information to criminally investigate or prosecute any alcohol or drug abuse patient.[facility] HospitalIn the event this information is protected by the Federal Confidentiality of Alcohol and Drug Abuse Patient Records regulations: The Federal rules restrict any use of the information to criminally investigate or prosecute any alcohol or drug abuse patient.[facility] HospitalIn the event this information is protected by the Federal Confidentiality of Alcohol and Drug Abuse Patient Records regulations: The Federal rules restrict any use of the information to criminally investigate or prosecute any alcohol or drug abuse patient.[facility] HospitalIn the event this information is protected by the Federal Confidentiality of Alcohol and Drug Abuse Patient Records regulations: The Federal rules restrict any use of the information to criminally investigate or prosecute any alcohol or drug abuse patient.[facility] HospitalIn the event this information is protected by the Federal Confidentiality of Alcohol and Drug Abuse Patient Records regulations: The Federal rules restrict any use of the information to criminally investigate or prosecute any alcohol or drug abuse patient.[facility] HospitalIn the event this information is protected by the Federal Confidentiality of Alcohol and Drug Abuse Patient Records regulations: The Federal rules restrict any use of the information to criminally investigate or prosecute any alcohol or drug abuse patient.[facility] HospitalIn the event this information is protected by the Federal Confidentiality of Alcohol and Drug Abuse Patient Records regulations: The Federal rules restrict any use of the information to criminally investigate or prosecute any alcohol or drug abuse patient.[facility] HospitalIn the event this information is protected by the Federal Confidentiality of Alcohol and Drug Abuse Patient Records regulations: The Federal rules restrict any use of the information to criminally investigate or prosecute any alcohol or drug abuse patient.[facility] HospitalIn the event this information is protected by the Federal Confidentiality of Alcohol and Drug Abuse Patient Records regulations: The Federal rules restrict any use of the information to criminally investigate or prosecute any alcohol or drug abuse patient.[facility] HospitalIn the event this information is protected by the Federal Confidentiality of Alcohol and Drug Abuse Patient Records regulations: The Federal rules restrict any use of the information to criminally investigate or prosecute any alcohol or drug abuse patient.[facility] HospitalIn the event this information is protected by the Federal Confidentiality of Alcohol and Drug Abuse Patient Records regulations: The Federal rules restrict any use of the information to criminally investigate or prosecute any alcohol or drug abuse patient.[facility] HospitalIn the event this information is protected by the Federal Confidentiality of Alcohol and Drug Abuse Patient Records regulations: The Federal rules restrict any use of the information to criminally investigate or prosecute any alcohol or drug abuse patient.[facility] HospitalIn the event this information is protected by the Federal Confidentiality of Alcohol and Drug Abuse Patient Records regulations: The Federal rules restrict any use of the information to criminally investigate or prosecute any alcohol or drug abuse patient.[facility] HospitalIn the event this information is protected by the Federal Confidentiality of Alcohol and Drug Abuse Patient Records regulations: The Federal rules restrict any use of the information to criminally investigate or prosecute any alcohol or drug abuse patient.[facility] HospitalIn the event this information is protected by the Federal Confidentiality of Alcohol and Drug Abuse Patient Records regulations: The Federal rules restrict any use of the information to criminally investigate or prosecute any alcohol or drug abuse patient.[facility] HospitalIn the event this information is protected by the Federal Confidentiality of Alcohol and Drug Abuse Patient Records regulations: The Federal rules restrict any use of the information to criminally investigate or prosecute any alcohol or drug abuse patient.[facility] HospitalIn the event this information is protected by the Federal Confidentiality of Alcohol and Drug Abuse Patient Records regulations: The Federal rules restrict any use of the information to criminally investigate or prosecute any alcohol or drug abuse patient.[facility] HospitalIn the event this information is protected by the Federal Confidentiality of Alcohol and Drug Abuse Patient Records regulations: The Federal rules restrict any use of the information to criminally investigate or prosecute any alcohol or drug abuse patient.[facility] HospitalIn the event this information is protected by the Federal Confidentiality of Alcohol and Drug Abuse Patient Records regulations: The Federal rules restrict any use of the information to criminally investigate or prosecute any alcohol or drug abuse patient.[facility] HospitalIn the event this information is protected by the Federal Confidentiality of Alcohol and Drug Abuse Patient Records regulations: The Federal rules restrict any use of the information to criminally investigate or prosecute any alcohol or drug abuse patient.[facility] HospitalIn the event this information is protected by the Federal Confidentiality of Alcohol and Drug Abuse Patient Records regulations: The Federal rules restrict any use of the information to criminally investigate or prosecute any alcohol or drug abuse patient.[facility] HospitalIn the event this information is protected by the Federal Confidentiality of Alcohol and Drug Abuse Patient Records regulations: The Federal rules restrict any use of the information to criminally investigate or prosecute any alcohol or drug abuse patient.[facility] HospitalIn the event this information is protected by the Federal Confidentiality of Alcohol and Drug Abuse Patient Records regulations: The Federal rules restrict any use of the information to criminally investigate or prosecute any alcohol or drug abuse patient.[facility] HospitalIn the event this information is protected by the Federal Confidentiality of Alcohol and Drug Abuse Patient Records regulations: The Federal rules restrict any use of the information to criminally investigate or prosecute any alcohol or drug abuse patient.[facility] HospitalIn the event this information is protected by the Federal Confidentiality of Alcohol and Drug Abuse Patient Records regulations: The Federal rules restrict any use of the information to criminally investigate or prosecute any alcohol or drug abuse patient.[facility] HospitalIn the event this information is protected by the Federal Confidentiality of Alcohol and Drug Abuse Patient Records regulations: The Federal rules restrict any use of the information to criminally investigate or prosecute any alcohol or drug abuse patient.[facility] HospitalIn the event this information is protected by the Federal Confidentiality of Alcohol and Drug Abuse Patient Records regulations: The Federal rules restrict any use of the information to criminally investigate or prosecute any alcohol or drug abuse patient.[facility] HospitalIn the event this information is protected by the Federal Confidentiality of Alcohol and Drug Abuse Patient Records regulations: The Federal rules restrict any use of the information to criminally investigate or prosecute any alcohol or drug abuse patient.[facility] HospitalIn the event this information is protected by the Federal Confidentiality of Alcohol and Drug Abuse Patient Records regulations: The Federal rules restrict any use of the information to criminally investigate or prosecute any alcohol or drug abuse patient.[facility] HospitalIn the event this information is protected by the Federal Confidentiality of Alcohol and Drug Abuse Patient Records regulations: The Federal rules restrict any use of the information to criminally investigate or prosecute any alcohol or drug abuse patient.[facility] HospitalIn the event this information is protected by the Federal Confidentiality of Alcohol and Drug Abuse Patient Records regulations: The Federal rules restrict any use of the information to criminally investigate or prosecute any alcohol or drug abuse patient.[facility] HospitalIn the event this information is protected by the Federal Confidentiality of Alcohol and Drug Abuse Patient Records regulations: The Federal rules restrict any use of the information to criminally investigate or prosecute any alcohol or drug abuse patient.[facility] HospitalIn the event this information is protected by the Federal Confidentiality of Alcohol and Drug Abuse Patient Records regulations: The Federal rules restrict any use of the information to criminally investigate or prosecute any alcohol or drug abuse patient.[facility] HospitalIn the event this information is protected by the Federal Confidentiality of Alcohol and Drug Abuse Patient Records regulations: The Federal rules restrict any use of the information to criminally investigate or prosecute any alcohol or drug abuse patient.[facility] HospitalIn the event this information is protected by the Federal Confidentiality of Alcohol and Drug Abuse Patient Records regulations: The Federal rules restrict any use of the information to criminally investigate or prosecute any alcohol or drug abuse patient.[facility] HospitalIn the event this information is protected by the Federal Confidentiality of Alcohol and Drug Abuse Patient Records regulations: The Federal rules restrict any use of the information to criminally investigate or prosecute any alcohol or drug abuse patient.[facility] HospitalIn the event this information is protected by the Federal Confidentiality of Alcohol and Drug Abuse Patient Records regulations: The Federal rules restrict any use of the information to criminally investigate or prosecute any alcohol or drug abuse patient.[facility] HospitalIn the event this information is protected by the Federal Confidentiality of Alcohol and Drug Abuse Patient Records regulations: The Federal rules restrict any use of the information to criminally investigate or prosecute any alcohol or drug abuse patient.[facility] HospitalIn the event this information is protected by the Federal Confidentiality of Alcohol and Drug Abuse Patient Records regulations: The Federal rules restrict any use of the information to criminally investigate or prosecute any alcohol or drug abuse patient.[facility] HospitalIn the event this information is protected by the Federal Confidentiality of Alcohol and Drug Abuse Patient Records regulations: The Federal rules restrict any use of the information to criminally investigate or prosecute any alcohol or drug abuse patient.[facility] HospitalIn the event this information is protected by the Federal Confidentiality of Alcohol and Drug Abuse Patient Records regulations: The Federal rules restrict any use of the information to criminally investigate or prosecute any alcohol or drug abuse patient.[facility] HospitalIn the event this information is protected by the Federal Confidentiality of Alcohol and Drug Abuse Patient Records regulations: The Federal rules restrict any use of the information to criminally investigate or prosecute any alcohol or drug abuse patient.[facility] HospitalIn the event this information is protected by the Federal Confidentiality of Alcohol and Drug Abuse Patient Records regulations: The Federal rules restrict any use of the information to criminally investigate or prosecute any alcohol or drug abuse patient.[facility] HospitalIn the event this information is protected by the Federal Confidentiality of Alcohol and Drug Abuse Patient Records regulations: The Federal rules restrict any use of the information to criminally investigate or prosecute any alcohol or drug abuse patient.[facility] HospitalIn the event this information is protected by the Federal Confidentiality of Alcohol and Drug Abuse Patient Records regulations: The Federal rules restrict any use of the information to criminally investigate or prosecute any alcohol or drug abuse patient.[facility]In the event this information is protected by the Federal Confidentiality of Alcohol and Drug Abuse Patient Records regulations: The Federal rules restrict any use of the information to criminally investigate or prosecute any alcohol or drug abuse patient.[facility] HospitalIn the event this information is protected by the Federal Confidentiality of Alcohol and Drug Abuse Patient Records regulations: The Federal rules restrict any use of the information to criminally investigate or prosecute any alcohol or drug abuse patient.[facility] HospitalIn the event this information is protected by the Federal Confidentiality of Alcohol and Drug Abuse Patient Records regulations: The Federal rules restrict any use of the information to criminally investigate or prosecute any alcohol or drug abuse patient.[facility] HospitalIn the event this information is protected by the Federal Confidentiality of Alcohol and Drug Abuse Patient Records regulations: The Federal rules restrict any use of the information to criminally investigate or prosecute any alcohol or drug abuse patient.[facility] HospitalIn the event this information is protected by the Federal Confidentiality of Alcohol and Drug Abuse Patient Records regulations: The Federal rules restrict any use of the information to criminally investigate or prosecute any alcohol or drug abuse patient.[facility] HospitalIn the event this information is protected by the Federal Confidentiality of Alcohol and Drug Abuse Patient Records regulations: The Federal rules restrict any use of the information to criminally investigate or prosecute any alcohol or drug abuse patient.[facility] HospitalIn the event this information is protected by the Federal Confidentiality of Alcohol and Drug Abuse Patient Records regulations: The Federal rules restrict any use of the information to criminally investigate or prosecute any alcohol or drug abuse patient.[facility]In the event this information is protected by the Federal Confidentiality of Alcohol and Drug Abuse Patient Records regulations: The Federal rules restrict any use of the information to criminally investigate or prosecute any alcohol or drug abuse patient.[facility] HospitalIn the event this information is protected by the Federal Confidentiality of Alcohol and Drug Abuse Patient Records regulations: The Federal rules restrict any use of the information to criminally investigate or prosecute any alcohol or drug abuse patient.[facility] HospitalIn the event this information is protected by the Federal Confidentiality of Alcohol and Drug Abuse Patient Records regulations: The Federal rules restrict any use of the information to criminally investigate or prosecute any alcohol or drug abuse patient.[facility]In the event this information is protected by the Federal Confidentiality of Alcohol and Drug Abuse Patient Records regulations: The Federal rules restrict any use of the information to criminally investigate or prosecute any alcohol or drug abuse patient.[facility]In the event this information is protected by the Federal Confidentiality of Alcohol and Drug Abuse Patient Records regulations: The Federal rules restrict any use of the information to criminally investigate or prosecute any alcohol or drug abuse patient.[facility]In the event this information is protected by the Federal Confidentiality of Alcohol and Drug Abuse Patient Records regulations: The Federal rules restrict any use of the information to criminally investigate or prosecute any alcohol or drug abuse patient.[facility]In the event this information is protected by the Federal Confidentiality of Alcohol and Drug Abuse Patient Records regulations: The Federal rules restrict any use of the information to criminally investigate or prosecute any alcohol or drug abuse patient.[facility]In the event this information is protected by the Federal Confidentiality of Alcohol and Drug Abuse Patient Records regulations: The Federal rules restrict any use of the information to criminally investigate or prosecute any alcohol or drug abuse patient.[facility]In the event this information is protected by the Federal Confidentiality of Alcohol and Drug Abuse Patient Records regulations: The Federal rules restrict any use of the information to criminally investigate or prosecute any alcohol or drug abuse patient.[facility] HospitalIn the event this information is protected by the Federal Confidentiality of Alcohol and Drug Abuse Patient Records regulations: The Federal rules restrict any use of the information to criminally investigate or prosecute any alcohol or drug abuse patient.[facility] Hospital[facility] the event this information is protected by the Federal Confidentiality of Alcohol and Drug Abuse Patient Records regulations: The Federal rules restrict any use of the information to criminally investigate or prosecute any alcohol or drug abuse patient.[facility] HospitalIn the event this information is protected by the Federal Confidentiality of Alcohol and Drug Abuse Patient Records regulations: The Federal rules restrict any use of the information to criminally investigate or prosecute any alcohol or drug abuse patient.[facility] HospitalIn the event this information is protected by the Federal Confidentiality of Alcohol and Drug Abuse Patient Records regulations: The Federal rules restrict any use of the information to criminally investigate or prosecute any alcohol or drug abuse patient.[facility] HospitalIn the event this information is protected by the Federal Confidentiality of Alcohol and Drug Abuse Patient Records regulations: The Federal rules restrict any use of the information to criminally investigate or prosecute any alcohol or drug abuse patient.[facility] Reason for Visit (unrecogniz ed section and content) Reason Comments Diabetes Reason Comments Opened In Error Reason Comments [...] AORTA US RETROPERITONEAL REAL TIME W/IMAGE LIMITED Tommy Hardy MD [address] [place] [address] Us Imaging Referral ID Status Reason Start Date Expiration Date V isits Requested Visits Authorized [id number] Closed Auto-Generate d Referral 08/20/2022 09/19/2023 1 1 Reason Comments Breathing Problem Reason Comments Shortness of Breath SOB on exertion X 1 yr Reason Comments Spirometry Specialty Diagnoses / Procedures Referred By Contac t Referred To Contact [facility] Diagnoses SOB (shortness of breath) Procedures SPIROMETRY WITH DILATOR IF OBSTRUCTED BRNCDILAT RSPSE SPMTRY PRE&POST-BRNCDILAT ADMN Tommy Hardy MD [address] [place] [address] [facility] [place] [address] Referral ID Status Reason Start Date Expiration Date V isits Requested Visits Authorized [id number] Closed Auto-Generate d Referral 09/03/2022 10/03/2023 1 1 Specialty Diagnoses / Procedures Referred By Contac t Referred To Contact [facility] Diagnoses SOB (shortness of breath) Procedures LUNG VOLUMES Tommy Hardy MD [address] [place] [address] [facility] [place] [address] Referral ID Status Reason Start Date Expiration Date V isits Requested Visits Authorized [id number] Closed Auto-Generate d Referral 09/03/2022 10/03/2023 [address] Specialty Diagnoses / Procedures Referred By Contac t Referred To Contact CT IMAGING Diagnoses Lung fibrosis (HCC) SOB (shortness of breath) Procedures CT CHEST WO IVCON DIAGNOSTIC COMPUTED TOMOGRAPHY THORAX W/O CNTRST Tommy Hardy MD [address] [place] [address] Ct Imaging Referral ID Status Reason Start Date Expiration Date V isits Requested Visits Authorized [id number] Closed Auto-Generate d Referral 09/03/2022 10/03/2023 1 1 Reason Comments Results Reason Comments Consult Reason Comments fax request Reason Comments New Patient Dyspnea Shortness of Breath Specialty Diagnoses / Procedures Referred By Contac t Referred To Contact Pulmonary and Critical Care Medicine Diagnoses SOB (shortness of breath) Procedures CONSULT TO PULM/CRITICAL CARE OFFICE/OUTPATIENT NEW HIGH MDM 60-74 MINUTES Tommy Hardy MD [address] [place] [address] Referral ID Status Reason Start Date Expiration Date V isits Requested Visits Authorized [id number] Closed PCP Requested Referral 09/07/2022 09/07/2023 1 [...] AORTA US RETROPERITONEAL REAL TIME W/IMAGE LIMITED Tommy Hardy MD [address] [place] [address] [place] [id number] Referral ID Status Reason Start Date Expiration Date V isits Requested Visits Authorized [id number] Closed Auto-Generate d Referral 09/14/2023 10/13/2024 1 1 Reason Comments Patient Update Reason Comments Hospital F/U Reason Comments [facility] requesting records Reason Comments Established Patient Reason Comments Medication Problem Reason Comments Knee Pain Left knee pain x 1 d ay Reason Comments Diarrhea Reason Comments Diarrhea X 5 days Care Teams (unrecognized sec tion and content) Cigarette Examiner Relationship Specialty Start Date End Date Tommy Hardy MD [address] [place], [place] [address] PCP - General Family Practice 09/27/12 Cigarette Examiner Relationship Specialty Start Date End Date Tommy Hardy MD [address] [facility] [place] [address] PCP - General Family Practice 09/27/12 Cigarette Examiner Relationship Specialty Start Date End Date Tommy Hardy MD [address] [facility] [place] [address] PCP - General Family Practice 09/27/12 Cigarette Examiner Relationship Specialty Start Date End Date Tommy Hardy MD [address] [facility] [place] [address] PCP - General Family Practice 09/27/12 Cigarette Examiner Relationship Specialty Start Date End Date Tommy Hardy MD [address] [facility] [place] [address] PCP - General Family Practice 09/27/12 Cigarette Examiner Relationship Specialty Start Date End Date Tommy Hardy MD [address] [facility] [place] [address] PCP - General Family Practice 09/27/12 Cigarette Examiner Relationship Specialty Start Date End Date Tommy Hardy MD [address] [facility] [place] [address] PCP - General Family Practice 09/27/12 Cigarette Examiner Relationship Specialty Start Date End Date Tommy Hardy MD [address] [facility] [place] [address] PCP - General Family Practice 09/27/12 Cigarette Examiner Relationship Specialty Start Date End Date Tommy Hardy MD [address] [facility] [place] [address] PCP - General Family Practice 09/27/12 Cigarette Examiner Relationship Specialty Start Date End Date Tommy Hardy MD [address] [facility] [place] [address] PCP - General Family Practice 09/27/12 Cigarette Examiner Relationship Specialty Start Date End Date Tommy Hardy MD [address] [facility] [place] [address] PCP - General Family Medicine 09/27/12 Cigarette Examiner Relationship Specialty Start Date End Date Tommy Hardy MD [address] [facility] [place] [address] PCP - General Family Medicine 09/27/12 Cigarette Examiner Relationship Specialty Start Date End Date Tommy Hardy MD [address] [facility] [place] [address] PCP - General Family Medicine 09/27/12 Cigarette Examiner Relationship Specialty Start Date End Date Tommy Hardy MD [address] [facility] [place] [address] PCP - General Family Medicine 09/27/12 Cigarette Examiner Relationship Specialty Start Date End Date Tommy Hardy MD [address] [facility] [place] [address] PCP - General Family Medicine 09/27/12 Cigarette Examiner Relationship Specialty Start Date End Date Tommy Hardy MD [address] [facility] [place] [address] PCP - General Family Medicine 09/27/12 Cigarette Examiner Relationship Specialty Start Date End Date Tommy Hardy MD [address] [facility] [place] [address] PCP - General Family Medicine 09/27/12 Cigarette Examiner Relationship Specialty Start Date End Date Tommy Hardy MD [address] [facility] [place] [address] PCP - General Family Medicine 09/27/12 Cigarette Examiner Relationship Specialty Start Date End Date Tommy Hardy MD [address] [facility] [place] [address] PCP - General Family Medicine 09/27/12 Cigarette Examiner Relationship Specialty Start Date End Date Tommy Hardy MD [address] [facility] [place] [address] PCP - General Family Medicine 09/27/12 Cigarette Examiner Relationship Specialty Start Date End Date Tommy Hardy MD [address] [facility] [place] [address] PCP - General Family Medicine 09/27/12 Cigarette Examiner Relationship Specialty Start Date End Date Tommy Hardy MD [address] [facility] [place] [address] PCP - General Family Medicine 09/27/12 Cigarette Examiner Relationship Specialty Start Date End Date Tommy Hardy MD [address] [facility] [place] [address] PCP - General Family Medicine 09/27/12 Cigarette Examiner Relationship Specialty Start Date End Date Tommy Hardy MD [address] [facility] [place] [address] PCP - General Family Medicine 09/27/12 Cigarette Examiner Relationship Specialty Start Date End Date Tommy Hardy MD [address] [facility] [place] [address] PCP - General Family Medicine 09/27/12 Cigarette Examiner Relationship Specialty Start Date End Date Tommy Hardy MD [address] [facility] [place] [address] PCP - General Family Medicine 09/27/12 Cigarette Examiner Relationship Specialty Start Date End Date Tommy Hardy MD [address] [facility] [place] [address] PCP - General Family Medicine 09/27/12 Cigarette Examiner Relationship Specialty Start Date End Date Tommy Hardy MD [address] [facility] [place] [address] PCP - General Family Medicine 09/27/12 Cigarette Examiner Relationship Specialty Start Date End Date Tommy Hardy MD [address] [place] [address] PCP - General Family Medicine 09/27/12 Cigarette Examiner Relationship Specialty Start Date End Date Tommy Hardy MD [address] [place] [address] PCP - General Family Medicine 09/27/12 Cigarette Examiner Relationship Specialty Start Date End Date Tommy Hardy MD [address] [place] [address] PCP - General Family Medicine 09/27/12 Cigarette Examiner Relationship Specialty Start Date End Date Tommy Hardy MD [address] [place] [address] PCP - General Family Medicine 09/27/12 Cigarette Examiner Relationship Specialty Start Date End Date Tommy Hardy MD [address] [place] [address] PCP - General Family Medicine 09/27/12 Cigarette Examiner Relationship Specialty Start Date End Date Tommy Hardy MD [address] [place] [address] PCP - General Family Medicine 09/27/12 Cigarette Examiner Relationship Specialty Start Date End Date Tommy Hardy MD [address] [place], [place] [address] PCP - General Family Medicine 09/27/12 Cigarette Examiner Relationship Specialty Start Date End Date Tommy Hardy MD [address] [place], [place] [address] PCP - General Family Medicine 09/27/12 Cigarette Examiner Relationship Specialty Start Date End Date Tommy Hardy MD [address] [facility] [place] [address] PCP - General Family Medicine 09/27/12 Carly Chandler MD [address] [place] [address] Pulmonary and Critical Care Medicine 09/20/23 Cigarette Examiner Relationship Specialty Start Date End Date Tommy Hardy MD [address] [facility] [place] [address] PCP - General Family Medicine 09/27/12 Carly Chandler MD [address] [place] [address] Pulmonary and Critical Care Medicine 09/20/23 Cigarette Examiner Relationship Specialty Start Date End Date Tommy Hardy MD [address] [place] [address] PCP - General Family Medicine 09/27/12 Carly Chandler MD [address] [place] [address] Pulmonary and Critical Care Medicine 09/20/23 Cigarette Examiner Relationship Specialty Start Date End Date Tommy Hardy MD [address] [place] [address] PCP - General Family Medicine 09/27/12 Carly Chandler MD [address] [place] [address] Pulmonary and Critical Care Medicine 09/20/23 Cigarette Examiner Relationship Specialty Start Date End Date Tommy Hardy MD [address] [facility] [place] [address] PCP - General Family Medicine 09/27/12 Carly Chandler MD [address] [place] [address] Pulmonary and Critical Care Medicine 09/20/23 Cigarette Examiner Relationship Specialty Start Date End Date Tommy Hardy MD [address] [facility] [place] [address] PCP - General Family Medicine 09/27/12 Carly Chandler MD [address] [place] [address] Pulmonary and Critical Care Medicine 09/20/23 Cigarette Examiner Relationship Specialty Start Date End Date Tommy Hardy MD [address] [facility] [place] [address] PCP - General Family Medicine 09/27/12 Carly Chandler MD [address] [place] [address] Pulmonary and Critical Care Medicine 09/20/23 Cigarette Examiner Relationship Specialty Start Date End Date Tommy Hardy MD [address] [facility] [place] [address] PCP - General Family Medicine 09/27/12 Carly Chandler MD [address] [place] [address] Pulmonary and Critical Care Medicine 09/20/23 Cigarette Examiner Relationship Specialty Start Date End Date Tommy Hardy MD [address] [facility] [place], [place] [address] PCP - General Family Medicine 09/27/12 Carly Chandler MD [address] [place] [address] Pulmonary and Critical Care Medicine 09/20/23 Cigarette Examiner Relationship Specialty Start Date End Date Tommy Hardy MD [address] [facility] [place] [address] PCP - General Family Medicine 09/27/12 Carly Chandler MD [address] [place] [address] Pulmonary and Critical Care Medicine 09/20/23 Cigarette Examiner Relationship Specialty Start Date End Date Tommy Hardy MD [address] [facility] [place] [address] PCP - General Family Medicine 09/27/12 Carly Chandler MD [address] [place] [address] Pulmonary and Critical Care Medicine 09/20/23 Cigarette Examiner Relationship Specialty Start Date End Date Tommy Hardy MD [address] [facility] [place] [address] PCP - General Family Medicine 09/27/12 Carly Chandler MD [address] [place] [address] Pulmonary and Critical Care Medicine 09/20/23 Cigarette Examiner Relationship Specialty Start Date End Date Tommy Hardy MD [address] [facility] [place] [address] PCP - General Family Medicine 09/27/12 Carly Chandler MD [address] [place] [address] Pulmonary and Critical Care Medicine 09/20/23 Cigarette Examiner Relationship Specialty Start Date End Date Tommy Hardy MD [address] [facility] [place] [address] PCP - General Family Medicine 09/27/12 Carly Chandler MD [address] [place] [address] Pulmonary and Critical Care Medicine 09/20/23 Cigarette Examiner Relationship Specialty Start Date End Date Tommy Hardy MD [address] [facility] [place] [address] PCP - General Family Medicine 09/27/12 Carly Chandler MD [address] [place] [address] Pulmonary and Critical Care Medicine 09/20/23 Cigarette Examiner Relationship Specialty Start Date End Date Tommy Hardy MD [address] [facility] [place] [address] PCP - General Family Medicine 09/27/12 Carly Chandler MD [address] [place] [address] Pulmonary and Critical Care Medicine 09/20/23 Cigarette Examiner Relationship Specialty Start Date End Date Tommy Hardy MD [address] [facility] [place] [address] PCP - General Family Medicine 09/27/12 Carly Chandler MD [address] [place] [address] Pulmonary and Critical Care Medicine 09/20/23 Cigarette Examiner Relationship Specialty Start Date End Date Tommy Hardy MD [address] [facility] [place] [address] PCP - General Family Medicine 09/27/12 Carly Chandler MD [address] [place] [address] Pulmonary and Critical Care Medicine 09/20/23 Cigarette Examiner Relationship Specialty Start Date End Date Tommy Hardy MD [address] [place] [address] PCP - General Family Medicine 09/27/12 Carly Chandler MD [address] [place] [address] Pulmonary and Critical Care Medicine 09/20/23 Cigarette Examiner Relationship Specialty Start Date End Date Tommy Hardy MD [address] [facility] [place] [address] PCP - General Family Medicine 09/27/12 Carly Chandler MD [address] [place] [address] Pulmonary and Critical Care Medicine 09/20/23 Cigarette Examiner Relationship Specialty Start Date End Date Tommy Hardy MD [address] [facility] [place] [address] PCP - General Family Medicine 09/27/12 Carly Chandler MD [address] [place] [address] Pulmonary and Critical Care Medicine 09/20/23 Cigarette Examiner Relationship Specialty Start Date End Date Tommy Hardy MD [address] [facility] [place] [address] PCP - General Family Medicine 09/27/12 Carly Chandler MD [address] [place] [address] Pulmonary and Critical Care Medicine 09/20/23 Cigarette Examiner Relationship Specialty Start Date End Date Tommy Hardy MD [address] [facility] [place] [address] PCP - General Family Medicine 09/27/12 Carly Chandler MD [address] [place] [address] Pulmonary and Critical Care Medicine 09/20/23 Cigarette Examiner Relationship Specialty Start Date End Date Tommy Hardy MD [address] [facility] [place] [address] PCP - General Family Medicine 09/27/12 Carly Chandler MD [address] [facility] [address] Pulmonary and Critical Care Medicine 09/20/23 Cigarette Examiner Relationship Specialty Start Date End Date Tommy Hardy MD [address] [place] [address] PCP - General Family Medicine 09/27/12 Carly Chandler MD [address] [place] [address] Pulmonary and Critical Care Medicine 09/20/23 Cigarette Examiner Relationship Specialty Start Date End Date Tommy Hardy MD [address] [facility] [place] [address] PCP - General Family Medicine 09/27/12 Carly Chandler MD [address] [place] [address] Pulmonary and Critical Care Medicine 09/20/23 Cigarette Examiner Relationship Specialty Start Date End Date Tommy Hardy MD [address] [place] [address] PCP - General Family Medicine 09/27/12 Carly Chandler MD [address] [place] [address] Pulmonary and Critical Care Medicine 09/20/23 Cigarette Examiner Relationship Specialty Start Date End Date Tommy Hardy MD [address] [place] [address] PCP - General Family Medicine 09/27/12 Carly Chandler MD [address] [place] [address] Pulmonary and Critical Care Medicine 09/20/23 Cigarette Examiner Relationship Specialty Start Date End Date Tommy Hardy MD [address] [place] [address] PCP - General Family Medicine 09/27/12 Carly Chandler MD [address] [place] [address] Pulmonary and Critical Care Medicine 09/20/23 Cigarette Examiner Relationship Specialty Start Date End Date Tommy Hardy MD [address] [place] [address] PCP - General Family Medicine 09/27/12 Carly Chandler MD [address] [place] [address] Pulmonary and Critical Care Medicine 09/20/23 Cigarette Examiner Relationship Specialty Start Date End Date Tommy Hardy MD [address] [place] [address] PCP - General Family Medicine 09/27/12 Carly Chandler MD [address] [place] [address] Pulmonary and Critical Care Medicine 09/20/23 Cigarette Examiner Relationship Specialty Start Date End Date Tommy Hardy MD [address] [place] [address] PCP - General Family Medicine 09/27/12 Carly Chandler MD [address] [place] [address] Pulmonary and Critical Care Medicine 09/20/23 (unrecognized sect ion and content) No Status Records Found INFORMATION SOURCE (unrecogn ized section and content) DATE CREATED AUTHOR 08/05/2024 [facility] FOR RECORDS PERTAINING TO PATIENTS WHO ARE [...] BE BASED ON THE PRIMARY CLINICAL RECORDS. [facility]. provides no warranty or guarantee of the accuracy or completeness of information in this document.
[2024-08-15 12:35] LABS: Absolute Lymphocyte Count 0.32 X10^3/uL (0.83-4.51); Absolute Neutrophil Count 14.6 X10^3/uL (2.0-7.7); Basophil# 0.08 X10^3/uL; Basophil% 0.5 % (0-1); Eosinophil# 0.05 X10^3/uL; Eosinophils% 0.3 % (0-5); Hematocrit 45.9 % (40-54); Hemoglobin 14.4 g/dL (13.0-16.5); Lymphocyte # 0.32 X10^3/ul (0.83-4.51); Lymphocyte % 2.1 % (19-41); Mean Corp Hgb Conc 31.4 g/dL (32-36); Mean Corpuscular Hgb 27.8 pg (27.0-32.0); Mean Corpuscular Volume 88.6 fL (80-94); Mean Platelet Vol. 13.7 fl (6.2-12.0); Monocyte# 0.45 X10^3/uL; Monocyte% 2.9 % (0-10); NRBC Flagged by Analyzer 0 % (0-5); Neutrophil # 14.59 X10^3/uL (2.7-7.7); Neutrophil % 93.6 % (47-70); POSITIVE DIFFERENTIAL YES; Platelet Count 209 K/mm3 (150-450); RBC Distribution Width CV 13.3 % (11.6-14.6); RBC Distribution Width SD 43.4 fl (35.1-43.9); Red Blood Count 5.18 M/mm3 (4.6-6.2); White Blood Count 15.6 K/mm3 (4.4-11.0)
[2024-08-15] MEDS: 0.9% Normal Saline (1000mL) 1,000 ML 100 ML IV ×2 (13:46→23:46)
[2024-08-15] MEDS: metroNIDAZOLE 500 MG/100 ML BAG 100 MG IV (13:46)
[2024-08-15] MEDS: Ipratropium/Albuterol Sulfate 3 ML AMPUL.NEB INHALATION ×2 (14:02→19:41)
[2024-08-15] MEDS: Meropenem 1 GM in 0.9% Normal Saline (100mL MB+) 100 ML IV ×2 (15:24→22:48)
[2024-08-15] MEDS: Potassium Chloride Oral Soln 20 MEQ/15 ML UDC 40 MEQ PO (17:37)
[2024-08-15] MEDS: Tamsulosin HCl 0.4 MG Capsule PO (17:37)
[2024-08-15] MEDS: Insulin Lispro 100 UNIT/ML INSULN.PEN SC (17:48)
[2024-08-15 17:57] LABS: Bedside Glucose 210 mg/dL (74-106)
[2024-08-15] MEDS: Colestipol 1 GM TABLET 4 GM PO (22:48)
[2024-08-15] MEDS: Insulin Glargine-YFGN 100 UNIT/ML Pen 18 UNIT SC (22:55)
[2024-08-15 23:18] LABS: Bedside Glucose 182 mg/dL (74-106)
[2024-08-16] VITALS (15 sets, daily range): BP systolic 86–138; BP diastolic 41–73; PULSE 61–87; RESP 14–20; TEMP 36.1–37.1; O2SAT 91–98
--- NOTE | 2024-08-16 | IMM_PTH ---
PATHOLOGY RESULTS PATIENT: OLGA RODRIGUEZ LOC: [facility] U#:[id number] AGE/SX: 69/M ROOM: [facility] RE08/15/[address]: Dr. Elizabeth Montalvo DO : 1955 BED: 1 DIS: 08/17/2024 SPEC #: [id number] RECD: 08/17/24 11:35 STATUS: WILBUR REQ #: [id number] CARLOTTA: 08/16/24 00:[address]: Ronnie Hannon DEPT: IMMUNOHISTOCHEMISTRY RECD BY: Alejandro Calloway ENTERED: 08/17/24 11:35 SP TYPE: IMMUNO OTHR DR: DO Dr. Tommy Forrester MD Tissues: Duodenum, NOS Procedures: MSH2 (add) MLH-1 (add) MSH6 (add) Anti-PMS2 (add) KI-67 (add) P53 (add) MOC-31 (add) HER-2-JEREMIAH (initial) PHYSICIAN & INSTITUTION [address] [address] SPECIMEN INFORMATION: Tissue Source: B- Duodenal mass Clinical Info: Choledocholithiasis Specimen Number: [id number] CPT code: 46209,16035h3 METHODOLOGY: Deparaffinized sections of prefer/formalin-fixed tissue or PAP/DQ stained slides are incubated with monoclonal/polyclonal antibodies/oligonucleotide probes. Localization is made via biotin free immunoperoxidase method. Appropriate controls are performed and reacted as expected. Results on target cell population are indicated in the following table: RESULTS: ANTIBODY / CLONE RESULT Block B Her-2neu (CB11) negative (1+) MOC-31 (4561) negative MLH-1 (M1) positive MSH2 (25D12) positive MSH6 (44) positive PMS2 (NRK6167) positive Ki-67 (30-9) positive, moderate P53 (DO-7) positive, missense mutation pattern Testing for Her2 by IHC if equivocal, recommend testing for Her2 by FISH(remove/not needed) These tests were developed and their performance characteristics determined by [facility]. They may not have been cleared or approved by the U.S. Food and Drug Administration. The FDA has determined that such clearance or approval is not necessary. The above immunohistochemical/dualISH markers are ordered and reviewed by the Pathologist. INTERPRETATION: B. Duodenal mass, biopsy: Invasive adenocarcinoma. Result of Microsatellite Instability Study: Negative (no loss of mismatch protein; no microsatellite instability detected). VASYL/ 08/20/2024
--- NOTE | 2024-08-16 | COLBX_PTH ---
PATHOLOGY RESULTS PATIENT: OLGA RODRIGUEZ LOC: [facility] U#:[id number] AGE/SX: 69/M ROOM: [facility] RE08/15/[address]: Dr. Elizabeth Montalvo DO : 1955 BED: 1 DIS: 08/17/2024 SPEC #: [id number] RECD: 08/16/24 13:31 STATUS: WILBUR POWERStuart #: [id number] CARLOTTA: 08/16/24 00:[address]: Ra Riddhihsaan DEPT: SURGICAL PATHOLOGY RECD BY: Alejandro Calloway ENTERED: 08/16/24 13:33 SP TYPE: COLON BX OTHR DR: DO Dr. Tommy Forrester MD Tissues: Duodenum, NOS Duodenum, NOS Procedures: Frozen Section (charge) Surgery Specimen Level IV HEADER OPERATION: Removal of biliary and pancreatic stent, biopsy PRE-OP DIAGNOSIS: Choledocholithiasis TISSUE SUBMITTED: A- Duodenal mass, B- Duodenal mass FROZEN SECTION DIAGNOSIS A. Duodenal mass, biopsy: Adenocarcinoma. SJ.mr 08/16/2024 MICROSCOPIC DIAGNOSIS A. Duodenal mass, biopsy: Moderately differentiated adenocarcinoma. B. Duodenal mass, biopsy: Moderately differentiated adenocarcinoma. SJ.mr 08/17/2024 COMMENT B. Immunohistochemistry ([id number]) for microsatellite instability (MSI) will be performed and results will be reported separately. Molecular studies on the tumor can be performed if clinically indicated. Please notify the laboratory if they are needed. Case has been reviewed in consultation with Dr. Alejandre who concurs with the above diagnosis. IDC:AM MICROSCOPIC DESCRIPTION Slides are reviewed. GROSS DESCRIPTION A. Received fresh for frozen section consultation/diagnosis labeled with the patient's name is a specimen designated Duodenal mass. The specimen consists of multiple irregular fragments of macias soft tissue that in aggregate measure 0.5 x 0.5 x 0.1 cm. The specimen is totally submitted in one cassette. B. Received in fixative is one container labeled with the patient's name and designated Duodenal mass. The specimen consists of multiple irregular fragments of light macias soft tissue that in aggregate measure 1.5 x 0.5 x 0.1 cm. The specimen is totally submitted in one cassette. SJ.mr 08/16/2024 TC:0 CPT:47349u5,43541
--- NOTE | 2024-08-16 05:55 | EKG12_ITS ---
Test Reason : PRE-OP Blood Pressure : / mmHG Vent. Rate : 067 BPM Atrial Rate : 067 BPM P-R Int : 162 ms QRS Dur : 070 ms QT Int : 424 ms P-R-T Axes : 057 -07 055 degrees QTc Int : 448 ms Sinus rhythm with Premature atrial complexes with Aberrant conduction Low voltage QRS Borderline ECG When compared with ECG of 15-AUG-2024 09:18, MANUAL COMPARISON REQUIRED, DATA IS UNCONFIRMED Confirmed by ELIUD LAMBERT, CHANDRIKA ([id number]), map editor UMANG TURNER ([id number]) on 09/13/2024 2:13:35 PM Referred By: Confirmed By:CHANDRIKA KLINE MD
[2024-08-16] MEDS: Meropenem 1 GM in 0.9% Normal Saline (100mL MB+) 100 ML IV ×2 (06:02→21:04)
[2024-08-16 06:22] LABS: Absolute Lymphocyte Count 0.59 X10^3/uL (0.83-4.51); Absolute Neutrophil Count 8.7 X10^3/uL (2.0-7.7); Basophil# 0.04 X10^3/uL; Basophil% 0.4 % (0-1); Eosinophil# 0.27 X10^3/uL; Eosinophils% 2.6 % (0-5); Hematocrit 34.4 % (40-54); Hemoglobin 10.9 g/dL (13.0-16.5); Lymphocyte # 0.59 X10^3/ul (0.83-4.51); Lymphocyte % 5.8 % (19-41); Mean Corp Hgb Conc 31.7 g/dL (32-36); Mean Corpuscular Hgb 28.2 pg (27.0-32.0); Mean Corpuscular Volume 89.1 fL (80-94); Mean Platelet Vol. 13.1 fl (6.2-12.0); Monocyte% 5.9 % (0-10); NRBC Flagged by Analyzer 0 % (0-5); Neutrophil # 8.69 X10^3/uL (2.7-7.7); POSITIVE DIFFERENTIAL YES; Platelet Count 160 K/mm3 (150-450); RBC Distribution Width CV 13.4 % (11.6-14.6); RBC Distribution Width SD 43.8 fl (35.1-43.9); Red Blood Count 3.86 M/mm3 (4.6-6.2); White Blood Count 10.2 K/mm3 (4.4-11.0)
[2024-08-16 06:24] LABS: Bedside Glucose 131 mg/dL (74-106)
[2024-08-16 06:45] LABS: ALB/GLOB Ratio 0.6 RATIO (0.9-2.4); AST(SGOT) 156 U/L (15-37); Alanine Aminotransfer ALT/SGPT 242 U/L (16-61); Alkaline Phosphatase 580 U/L (45-117); Anion Gap 4 (5-15); BUN 12 mg/dL (7-18); BUN/Creat Ratio 13.2 RATIO (10-20); Calcium,Total 7.7 mg/dL (8.5-10.1); Chloride 113 mmol/L (98-107); Creatinine, Serum 0.91 mg/dL (0.70-1.30); EST Glomerular Filtration Rate 88 mL/min (>60); Est Glom Filt Rate - Afr Amer 106 mL/min (>60); Estimated Creatinine Clearance 82.91 ml/min; Globulin 3.2 g/dL (2.2-4.2); Glucose 136 mg/dL (74-106); Magnesium 1.9 mg/dL (1.6-2.6); Phosphorus 2.2 mg/dL (2.5-4.9); Potassium 3.6 mmol/L (3.5-5.1); Protein, Total 5.2 g/dL (6.4-8.2); Sodium Level 141 mmol/L (136-145)
[2024-08-16] MEDS: Ipratropium/Albuterol Sulfate 3 ML AMPUL.NEB INHALATION ×2 (06:52→19:12)
[2024-08-16] MEDS: Potassium Phosphate 30 MM in 0.9% Normal Saline (250mL Bag) 250 ML 42 MM IV (08:44)
--- NOTE | 2024-08-16 10:40 | PCM.PRE.AN2 ---
ASA Classification* ASA Classification ASA Classification: 3 and E Assessment & Plan Anesthesia* Anesthesia Assessment Anesthesia Assessment: Discussed sedation and/or anesthesia options, risks, benefits, and alternatives with patient/parents/legal guardian/POA. Questions invited. The patient/parents/legal guardian/POA seems to understand and agrees to proceed with anesthesia plan. Reviewed the physical assessment, medical history, allergy history and patient home medications list prior to surgery/procedure/anesthetic and documented any changes. Performed airway and anesthesia risk assessments. Anesthesia Type Anesthesia Type: General (see written pre anesthesia record for full assessment) Anesthesia Focused Assessment* Temperature: 98.1 F Pulse Rate: 81 Blood Pressure: 117/54 Respiratory Rate: 16 Pulse Ox: 95 Airway Assessment Mouth opens: >3 cm Mallampati Score: II Focused Labs Anesthesia Preop lab: CBC WBC 10.2 K/mm3 (4.4-11.0) 08/16/24 05:20 RBC 3.86 M/mm3 (4.6-6.2) L 08/16/24 05:20 Hgb 10.9 g/dL (13.0-16.5) L 08/16/24 05:20 Hct 34.4 % (40-54) L 08/16/24 05:20 Plt Count 160 K/mm3 (150-450) 08/16/24 05:20 CHEMISTRY Potassium 3.6 mmol/L (3.5-5.1) 08/16/24 05:20 Sodium 141 mmol/L (136-145) 08/16/24 05:20 Magnesium 1.9 mg/dL (1.6-2.6) 08/16/24 05:20 Phosphorus 2.2 mg/dL (2.5-4.9) L 08/16/24 05:20 BUN 12 mg/dL (7-18) 08/16/24 05:20 Creatinine 0.91 mg/dL (0.70-1.30) 08/16/24 05:20 Glucose 136 mg/dL (74-106) H 08/16/24 05:20 POC Glucose 131 mg/dL (74-106) H 08/16/24 06:01 TSH 1.99 uIU/mL (0.358-3.74) 02/02/24 05:55 COAG PT 14.3 SECONDS (11.7-14.9) 02/01/24 21:24 Pre-Assessment Diagnosis/Proposed Procedure Planned Operative Procedure(s): ercp Anesthesia History 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 When Was Last Pacemaker Check QUESTION #4 FULL TEXT: You/Your Family Experience fever (hyperthermia) with Anesthesia Last Oral Intake Last Oral intake: Last Oral Intake NPO since 00:00 08/15/24 23:57 Meds taken in AM with sips of water? Meds patient instructed to take am of surgery PONV PONV - handbag frames inspector: PONV - handbag frames inspector Female HX of Motion Sickness HX of N/V After Surgery Non-Smoker Duration of Surgery greater than 60 minutes Number of Risk Factors PONV Score Height & Weight Height & Weight: Anesthesia: Height & Weight Height 6 ft 08/15/24 23:57 Weight: 91.9 kg 08/15/24 23:57 Body Mass Index (BMI) 27.4 08/15/24 23:57 Respiratory Assessment Respiratory Assessment - handbag frames inspector: Respiratory Tract Infection Hx - handbag frames inspector Hx Respiratory Tract Infection No 08/15/24 23:57 STOP Sleep Apnea STOP Sleep Apnea - handbag frames inspector: STOP Sleep Apnea - handbag frames inspector Hx Hypertension No 08/15/24 13:18 Hx Sleep Apnea Yes 08/15/24 13:18 CPAP Yes 08/15/24 13:18 BIPAP No 08/15/24 13:18 Do you snore loudly (louder than talking or can be heard Do you often feel tired/ fatigued/ sleepy during daytime? Has anyone observed you stop breathing during sleep? STOP Results Positive 08/15/24 13:18 QUESTION #5 FULL TEXT : Do you snore loudly (louder than talking or can be heard through closed doors)? 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 Specify any problems Hx of Preganancy in last 3 N/A 08/15/24 13:18 Months Nurse Filling Out Transfusion DSLOAN 08/15/24 13:18 & Questions: Date: 08/15/24 08/15/24 13:18 Time: 13:19 08/15/24 13:18 Patient unable to answer at this time (ie. confused, unrespo /Reproduction History /Reproductive History - handbag frames inspector: /Reproductive Hx- handbag frames inspector Hx Now Gestational Age (in weeks): EDC: Hx Hx Para Hx Section SAB No 02/24/24 08:33 Active Medications Active Medications: Current Medications Generic Name Dose Route Start Last Admin Trade Name Freq PRN Reason Stop Dose Admin Albuterol Sulfate 2.5 mg 08/15/24 12:52 Albuterol 2.5 Mg/3 Ml Vial.Neb. INHALATION Q2H PRN PRN SOB &/OR WHEEZING Albuterol/Ipratropium 3 ml 08/15/24 13:00 08/16/24 06:52 Ipratropium/Albuterol Sulfate 3 Ml Ampul.Neb INHALATION 3 ml Q6HWA.RT HEENA Administration Colestipol HCl 4 gm 08/15/24 22:00 08/16/24 09:46 Colestipol 1 Gm Tablet PO Not Given BID@1100,2200 HEENA Enoxaparin Sodium 40 mg 08/16/24 10:00 08/16/24 09:45 Enoxaparin 40 Mg/0.4 Ml Syringe SC Not Given DAILY [facility] Finasteride 5 mg 08/16/24 10:00 08/16/24 09:46 Finasteride 5 Mg Tablet PO Not Given DAILY [facility] Glucagon 1 mg 08/15/24 12:52 Glucagon 1 Mg/Ml Syringe IM X1 PRN HYPOGLYCEMIA Protocol Dextrose 250 mls @ 0 mls/hr 08/15/24 12:52 Dextrose 10%-Water IV .Q0M PRN HYPOGLYCEMIA Protocol As Directed Sodium Chloride 1,000 mls @ 100 mls/hr 08/15/24 13:00 08/16/24 09:15 IV 0 mls/hr .Q10H HEENA Infusion Meropenem 1 gm/ Sodium 120 mls @ 33 mls/hr 08/15/24 14:00 08/16/24 10:36 Chloride IV Infused Q8 HEENA Infusion Sodium Chloride 250 mls @ 15 mls/hr 08/15/24 12:53 IV .[id number] PRN Additional IVPB Infusion Sodium Chloride 250 mls @ 15 mls/hr 08/15/24 12:53 IV .[id number] PRN Saline Flush Potassium Phosphate 30 mm/ 260 mls @ 42 mls/hr 08/16/24 08:00 08/16/24 09:50 Sodium Chloride IV 08/16/24 14:11 0 mls/hr X1 ONE Infusion Insulin Glargine 18 unit 08/15/24 22:00 08/15/24 22:55 Insulin Glargine-Yfgn 100 Unit/Ml Pen SC 18 unit QHS HEENA Administration Insulin Human Lispro 0 unit 08/15/24 12:52 08/16/24 06:02 Insulin Lispro 100 Unit/Ml Insuln.Pen SC Not Given Q6 [facility] Protocol Morphine Sulfate 2 - 4 mg 08/15/24 12:52 Morphine 2 Mg/Ml Syringe IV Q3H PRN PRN Pain Score 6-10 Morphine Sulfate 2 - 4 mg 08/15/24 12:59 Morphine 4 Mg/Ml Syringe IV Q3H PRN PRN Pain Score 6-10 Ondansetron HCl 4 mg 08/15/24 12:52 Ondansetron 4 Mg/2 Ml Vial IV Q8H PRN PRN NAUSEA/VOMITING Prochlorperazine Edisylate 5 mg 08/15/24 12:52 Prochlorperazine 10 Mg/2 Ml Vial IV Q4H PRN PRN Breakthrough Nausea/Vomiting Senna/Docusate Sodium 2 tablet 08/15/24 12:52 Senna/Docusate Sodium 1 Tablet PO BID PRN PRN Constipation Sodium Chloride 10 - 40 ml 08/15/24 12:53 0.9% Saline Lock 10 Ml Syringe IV UD PRN SALINE FLUSH Tamsulosin HCl 0.4 mg 08/15/24 17:30 08/16/24 09:16 Tamsulosin Hcl 0.4 Mg Capsule PO Not Given BID@0830,1730 [facility] Venlafaxine HCl 150 mg 08/16/24 10:00 08/16/24 09:45 Venlafaxine Xr 150 Mg Capsule PO Not Given DAILY [facility] PFSH Medical History History of multiple cerebrovascular accidents (CVAs) Wears hearing aid Loss of hearing Insulin dependent diabetes mellitus Excessive bleeding Smoker Chronic cough History of echocardiogram History of stress test Ramirez catheter in place Chronic cholecystitis Unintentional weight loss of 1-2% body weight within 1 week Elevated liver transaminase level Jaundice Abdominal discomfort Gastroparesis Choledocholithiasis Cholestatic hepatitis Common bile duct dilation Diabetes GERD (gastroesophageal reflux disease) Non-smoker CPAP (continuous positive airway pressure) dependence Sleep apnea COPD (chronic obstructive pulmonary disease) Stroke/cerebrovascular accident Stroke-like symptoms History of diabetes mellitus History of stroke Slurred speech Home Medications ?Medication ?Instructions ?Recorded ?Last Taken ?Type venlafaxine 150 mg 150 mg PO DAILY DEPRESSION 09/05/23 03/01/24 History capsule,extended release 24 hr atorvastatin 80 mg tablet 80 mg PO QHS CHOLESTEROL #30 tabs 09/07/23 03/01/24 Rx finasteride 5 mg tablet 5 mg PO DAILY prostate 01/05/24 03/01/24 History tamsulosin 0.4 mg capsule 0.4 mg PO BID prostate 01/25/24 03/01/24 History fluticasone fur. 100 mcg-umeclid 1 ea inhalation Q24H copd 02/24/24 03/01/24 History 62.5 mcg-vilant 25 mcg inhalat.powder (Trelegy Ellipta) insulin glargine 100 unit/mL (3 38 unit subcut QHS diabetes 02/24/24 03/01/24 History mL) subcutaneous pen (Lantus Solostar U-100 Insulin) insulin lispro 100 unit/mL 20 unit subcut TID diabetes 02/24/24 03/01/24 History subcutaneous pen (Humalog KwikPen (U-100) Insulin) diphenoxylate-atropine 2.5 1 tab PO TID PRN diarrhea #90 tabs 07/09/24 Unknown Rx mg-0.025 mg tablet (Lomotil) cyanocobalamin (vitamin B-12) 1,000 mcg IM ONCE #1 mL 07/12/24 07/11/24 Clinic 1,000 mcg/mL injection solution colestipol 1 gram tablet 4 g (4 x 1 gram) PO BID 30 days 08/13/24 Unknown Rx #240 tabs [id number] See Rx Instructions .Route 08/13/24 Unknown Rx 3,000-9,500-15,000 unit capsule, .COMPLEX #300 caps delayed rel (Creon) aspirin 81 mg tablet,delayed 81 mg PO DAILY preventative 08/15/24 Unknown History release (Enteric Coated Aspirin) Allergy/AdvReac Type Severity Reaction Status Date / Time Penicillins Allergy Intermediate Hives Verified 08/02/24 11:26 metformin AdvReac Mild Diarrhea Verified 08/02/24 11:26 Family History Other Alzheimer disease Breast cancer Thyroid cancer Surgical History S/P TURP History of ERCP Status post laparoscopic cholecystectomy History of cholecystectomy S/P ERCP History of ear surgery Social History household members: spouse housing: house current occupational status: retired Smoking Status: Current every day smoker tobacco type: cigarettes Tobacco: How many years used: 50 how long ago did patient quit smoking: alcohol intake: never substance use type: does not use what type of physical activity do you participate in: none and walking seatbelt use: always do you feel safe at home: Yes Review of Systems (Anesthesia) ROS Narrative System reviewed and no additional complaints, except as documented.
[2024-08-16] MEDS: Lactated Ringers 1,000 ML 15 ML IV (10:52)
--- NOTE | 2024-08-16 11:30 | FLU_PTH ---
PATHOLOGY RESULTS PATIENT: OLGA RODRIGUEZ LOC: [facility] U#:[id number] AGE/SX: 69/M ROOM: [facility] RE08/15/[address]: Dr. Elizabeth Montalvo DO : 1955 BED: 1 DIS: 08/17/2024 SPEC #: [id number] RECD: 08/16/24 13:47 STATUS: SOUT REQ #: [id number] [place]: 08/16/24 11:[address]: Ronnie Hannon DEPT: CYTOLOGY RECD BY: Zayra Paz ENTERED: 08/16/24 14:04 SP TYPE: Fluid OTHR DR: DO Dr. Tommy Forrester MD Tissues: Bile duct, NOS Procedures: Special Stain Group II Surgery Specimen Level III Surgery Specimen Level IV Cytospin Fluid Comments: @ Ordering doctor for SSII edited from to @ by GOOD at 08/16/24 1430 @ Ordering doctor for SUIII edited from to @ by GOOD at 08/16/24 1430 @ Ordering doctor for SUIV edited from to @ by GOOD at 08/16/24 1430 @ Ordering doctor for CYSPIN edited from to @ by GOOD at 08/16/24 1430 @ Submitting doctor edited from to @ by GOOD at 08/16/24 1430 HEADER OPERATION: Removal of biliary stent, biopsies PRE-OP DIAGNOSIS: Choledocholithiasis TISSUE SUBMITTED: Biliary stent for cytology DIAGNOSIS CYTOLOGY Biliary stent fluid (cytospins and cellblock): Negative for malignant cells. 08/17/2024 COMMENT Case has been reviewed in consultation with Dr. Chacon who concurs with the above diagnosis. IDC:SJ CYTOLOGY STUDY Slides are reviewed. CYTOLOGY GROSS Received is a 12cm blue stent with 0.5 ml of tnopmlfzq-gugga-uitdy material labeled with the patient's name and and designated per the requisition as Biliary stent. Submitted for cytology preparation including cell block. Mr 08/16/2024 TC:5 CPT: 73104,57261
--- NOTE | 2024-08-16 12:40 | EX.PCM.CON.G ---
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 Patient had 7 weeks of continued extreme diarrhea. Was started on a medication which does help with his diarrhea throughout the day but he continues to have diarrhea every morning. He had an episode of vomiting at some point last night into his CPAP as well as onto the floor. notes this morning he was too weak to sit up. EMS was called. Patient was hypotensive and EMS was concerned about aspiration. Patient was placed on 2 L of oxygen in the ER. He does not wear oxygen at home. He notes over the past few days he has had some bloating periumbilical abdominal discomfort. states for the past 3 nights has not been eating as much. No fevers reported. Patient has any chest pain or significant shortness of breath at this time. No other complaints or concerns reported. 08/16/24 05:20: WBC 10.2, RBC 3.86 L, Hgb 10.9 L, Hct 34.4 L, MCV 89.1, Plt Count 160, Sodium 141, Potassium 3.6, Chloride 113 H, Carbon Dioxide 24.0, Anion Gap 4 L, BUN 12, Creatinine 0.91, Glucose 136 H, Calcium 7.7 L, Phosphorus 2.2 L, Magnesium 1.9, Total Bilirubin 1.60 H, AST 156 H, ALT 24 PFSH Medical History History of multiple cerebrovascular accidents (CVAs) Wears hearing aid Loss of hearing Insulin dependent diabetes mellitus Excessive bleeding Smoker Chronic cough History of echocardiogram History of stress test Ramirez catheter in place Chronic cholecystitis Unintentional weight loss of 1-2% body weight within 1 week Elevated liver transaminase level Jaundice Abdominal discomfort Gastroparesis Choledocholithiasis Cholestatic hepatitis Common bile duct dilation Diabetes GERD (gastroesophageal reflux disease) Non-smoker CPAP (continuous positive airway pressure) dependence Sleep apnea COPD (chronic obstructive pulmonary disease) Stroke/cerebrovascular accident Stroke-like symptoms History of diabetes mellitus History of stroke Slurred speech Home Medications ?Medication ?Instructions ?Recorded ?Last Taken ?Type venlafaxine 150 mg 150 mg PO DAILY DEPRESSION 09/05/23 03/01/24 History capsule,extended release 24 hr atorvastatin 80 mg tablet 80 mg PO QHS CHOLESTEROL #30 tabs 09/07/23 03/01/24 Rx finasteride 5 mg tablet 5 mg PO DAILY prostate 01/05/24 03/01/24 History tamsulosin 0.4 mg capsule 0.4 mg PO BID prostate 01/25/24 03/01/24 History fluticasone fur. 100 mcg-umeclid 1 ea inhalation Q24H copd 02/24/24 03/01/24 History 62.5 mcg-vilant 25 mcg inhalat.powder (Trelegy Ellipta) insulin glargine 100 unit/mL (3 38 unit subcut QHS diabetes 02/24/24 03/01/24 History mL) subcutaneous pen (Lantus Solostar U-100 Insulin) insulin lispro 100 unit/mL 20 unit subcut TID diabetes 02/24/24 03/01/24 History subcutaneous pen (Humalog KwikPen (U-100) Insulin) diphenoxylate-atropine 2.5 1 tab PO TID PRN diarrhea #90 tabs 07/09/24 Unknown Rx mg-0.025 mg tablet (Lomotil) cyanocobalamin (vitamin B-12) 1,000 mcg IM ONCE #1 mL 07/12/24 07/11/24 Clinic 1,000 mcg/mL injection solution colestipol 1 gram tablet 4 g (4 x 1 gram) PO BID 30 days 08/13/24 Unknown Rx #240 tabs [id number]-gswatpeo-zrnazzx See Rx Instructions .Route 08/13/24 Unknown Rx 3,000-9,500-15,000 unit capsule, .COMPLEX #300 caps delayed rel (Creon) aspirin 81 mg tablet,delayed 81 mg PO DAILY preventative 08/15/24 Unknown History release (Enteric Coated Aspirin) Allergy/AdvReac Type Severity Reaction Status Date / Time Penicillins Allergy Intermediate Hives Verified 08/02/24 11:26 metformin AdvReac Mild Diarrhea Verified 08/02/24 11:26 Family History Other Alzheimer disease Breast cancer Thyroid cancer Surgical History S/P TURP History of ERCP Status post laparoscopic cholecystectomy History of cholecystectomy S/P ERCP History of ear surgery Social History household members: spouse housing: house current occupational status: retired Smoking Status: Current every day smoker tobacco type: cigarettes Tobacco: How many years used: 50 how long ago did patient quit smoking: alcohol intake: never substance use type: does not use what type of physical activity do you participate in: none and walking seatbelt use: always do you feel safe at home: Yes ROS Constitutional Constitutional: Reports fatigue, malaise and weakness; Denies anorexia, change in weight, chills, fever(s), night sweats or other Eyes Eyes: Denies blurry vision, change in eye color, change in vision, discharge from eye(s), double vision, erythema, eye pain, loss of vision or other ENT HEENT: Reports abnormal hearing and hearing loss; Denies dysphagia, ear pain, epistaxis, headache(s), nasal congestion, nasal discharge, post nasal drip, sinus pressure, sore throat or other Cardiovascular Cardiovascular: Denies chest pain, claudication, dyspnea on exertion, edema, lightheadedness, orthopnea, palpitations, paroxysmal nocturnal dyspnea, rapid heart rate, syncope or other Respiratory/Chest Respiratory/Chest: Denies cough, dyspnea, excessive phlegm production, hemoptysis, productive cough, shortness of breath at rest, shortness of breath with exertion, wheezing or other Gastrointestinal Gastrointestinal: Reports abdominal pain, diarrhea, nausea and vomiting; Denies coffee ground emesis, constipation, dyspepsia, hematemesis, hematochezia, loose stools, melena or other Genitourinary Genitourinary: Denies burning urination, difficulty urinating, dysuria, hematuria, nocturia, urinary frequency, urinary hesitancy, urinary incontinence, urinary urgency or other Musculoskeletal Musculoskeletal: Denies arthralgias, back pain, joint pain, joint stiffness, joint swelling, myalgias, neck pain or other Neurologic Neurologic: Reports other Details: Chronic memory issues ; Denies abnormal gait, abnormal speech, confusion, disequilibrium, dizziness, focal weakness, headache(s), numbness, paresthesias, seizure-like activity, seizures, syncope, tingling or tremor(s) Psychiatric Psychiatric: Denies anxiety, depression, homicidal ideation, suicidal ideation or other Endocrine Endocrinology: Denies change in body appearance, cold intolerance, excessive sweating, heat intolerance, polydipsia, polyuria or other Hematologic/Lymphatic Hematologic/Lymphatic: Denies anemia, easy bleeding, easy bruising, lymphadenopathy or other Allergic/Immunologic Allergic/Immunologic: Denies rhinitis, hives, eczemia, asthma or other Physical Exam Const alert, oriented x3 and no apparent distress; Negative for healthy appearing or well nourished Orientation / Consciousness: confused HEENT normocephalic and head/scalp atraumatic; Negative for moist oral mucous membranes HEENT Narrative: Mucous membranes are extremely dry Eyes PERRL, EOMs intact bilaterally and conjunctivae normal Eyes Narrative: No scleral icterus noted at this time Neck no lymphadenopathy and supple Neck Narrative: Neck is short and thick, trachea midline Resp normal respiratory effort, no retractions, no use of accessory muscles and clear to auscultation bilaterally Auscultation: Negative for rales, rhonchi or wheezes Cardio regular rate, regular rhythm, S1 normal heart sound, S2 normal heart sound, no murmurs, no rub, no gallops and no clicks GI normal to inspection, nondistended, normoactive bowel sounds, soft to palpation and non-tender GI Narrative: Tenderness in the epigastrium and right upper quadrant Extremity no clubbing, cyanosis or edema Extremity Narrative: Radial and pedal pulses are 2+ Skin Skin Narrative: Skin tenting noted, no significant wounds, no lesions, color is good Neuro oriented x3, moves all extremities and no focal motor deficits Neuro Narrative: Speech is difficult due to the significant dryness in his mouth but he is understandable and intelligible Psych Psych Narrative: Affect is slightly flat but appropriate for the situation, patient is mildly confused with regards to recent events but is oriented x 3 Lab / Micro Data 08/16/24 05:20 08/16/24 05:20 Labs: Laboratory Results - last 24 hr 08/15/24 17:36: POC Glucose 210 H 08/15/24 22:50: POC Glucose 182 H 08/16/24 05:20: WBC 10.2, RBC 3.86 L, Hgb 10.9 L, Hct 34.4 L, MCV 89.1, MCH 28.2, MCHC 31.7 L, RDW Std Deviation 43.8, RDW Coeff of Shoshana 13.4, Plt Count 160, MPV 13.1 H, Immature Gran % (Auto) 0.300, Neut % (Auto) 85.0 H, Lymph % (Auto) 5.8 L, G[place] % (Auto) 5.9, Eos % (Auto) 2.6, Baso % (Auto) 0.4, Absolute Neuts (auto) 8.7 H, Absolute Lymphs (auto) 0.59 L, Nucleated RBC % 0, Sodium 141, Potassium 3.6, Chloride 113 H, Carbon Dioxide 24.0, Anion Gap 4 L, BUN 12, Creatinine 0.91, Estim Creat Clear Calc 82.91, Est GFR (MDRD) Af Amer 106, Est GFR (MDRD) Non-Af 88, BUN/Creatinine Ratio 13.2, Glucose 136 H, Calcium 7.7 L, Phosphorus 2.2 L, Magnesium 1.9, Total Bilirubin 1.60 H, AST 156 H, ALT 242 H, Alkaline Phosphatase 580 H, Total Protein 5.2 L, Albumin 2.0 L, Globulin 3.2, Albumin/Globulin Ratio 0.6 L 08/16/24 06:01: POC Glucose 131 H Micro: Microbiology 08/15/24 09:21 Mucosa - Nose SARS-CoV-2, Influenza & RSV (PCR) - Final Rhythm Strip Rhythm Strip: Sinus Rhythm Rate: 85 Ectopy: None Assessment & Plan Assessment/Plan (1) Choledocholithiasis: (2) Acute hypokalemia: (3) Diarrhea: QUALIFIERS: Diarrhea type: unspecified type Qualified Code(s): R19.7 - Diarrhea, unspecified (4) Lactic acidosis: (5) Dehydration: PLAN: Plan 69-year-old gentleman known to GI service due to history of recurrent choledocholithiasis and pancreatitis a distal biliary stricture presents with abdominal pain, nausea, vomiting likely secondary to recurrent choledocholithiasis due to a increase in LFTs when a previous with normal. -Patient with multiple episodes of choledocholithiasis -No longer has gallbladder but still having episodes of choledocholithiasis -He had a cholecystectomy on 02/04/2024 -Workup has been in progress -He Will need ERCP Charges/Coding Visit Charges Inpatient E&M: 03417 Init Hosp L3
--- NOTE | 2024-08-16 12:55 | RAD_ITS ---
STUDY: ERCP. REASON FOR EXAM: Male, 69 years old. ERCP FLUOROSCOPY TIME (if supplied): ( 2 minutes and 50 seconds ) minutes/seconds. 38.52 mGy. 6 images were submitted. TECHNIQUE: An ERCP was performed by the general intern. Fluoroscopic services provided. COMPARISON: None. FINDINGS: Dilated central intrahepatic biliary ducts and common bile duct. A biliary stent is seen. RAD/ERCP Biliary/Pancreas IMPRESSION: Fluoroscopic services provided for ERCP. Electronically Signed: Juan Jean MD at 14:26 EDT ,
--- NOTE | 2024-08-16 13:52 | OP.CCLET_ITS ---
08/16/2024 Tommy Markham Re : ERCP procedure for Max Woodson Dear Shahrzad This procedure was performed on July. My impressions and recommendations are as follows: Impressions : - Two visibly occluded stents from the biliary tree and the pancreatic duct were seen in the major papilla. - The major papilla appeared to be bulging. - The entire biliary tree was markedly dilated, acquired. - The patient has had a cholecystectomy. - Choledocholithiasis was found. Complete removal was accomplished by biliary sphincterotomy and balloon extraction. - A pancreatic sphincterotomy was performed. - The ventral pancreatic duct was swept and mucus was found. - A biliary sphincterotomy was performed. - The biliary tree was swept and debris and pus were found. - One stent was removed from the common bile duct. - One temporary stent was placed into the common bile duct. Recommendations : My findings are described in the full procedure note, which is enclosed. If I can be of further assistance, please feel free to contact me at . Sincerely, Ronnie Hannon, 08/16/2024 1:51:36 PM This report has been signed electronically.
--- NOTE | 2024-08-16 13:52 | OP.ERCP_ITS ---
Patient Name: Max Woodson Procedure Date: 08/16/2024 12:05 PM Date of : 1955 Age: 69 Procedure: ERCP Indications: Suspected bile duct stone(s), Jaundice Providers: Ronnie Hannon DO Medicines: Monitored Anesthesia Care Patient Profile: This is a 69 year old male. Refer to note in patient chart for documentation of history and physical. Patient has symptoms of acute right upper quadrant abdominal pain and acute jaundice. His most recent ERCP for biliary evaluation and ERCP for ductoscopy. He is status post laparoscopic cholecystectomy within the past six months. Complications: No immediate complications. Procedure: Pre-Anesthesia Assessment: - Prior to the procedure, a History and Physical was performed, and patient medications and allergies were reviewed. The patient is competent. The risks and benefits of the procedure and the sedation options and risks were discussed with the patient. All questions were answered and informed consent was obtained. Patient identification and proposed procedure were verified by the physician in the pre-procedure area. Mental Status Examination: alert and oriented. Airway Examination: normal oropharyngeal airway and neck mobility. Respiratory Examination: clear to auscultation. CV Examination: normal. Prophylactic Antibiotics: The patient does not require prophylactic antibiotics. Prior Anticoagulants: The patient has taken no anticoagulant or antiplatelet agents except for NSAID medication. ASA Grade Assessment: III - A patient with severe systemic disease. After reviewing the risks and benefits, the patient was deemed in satisfactory condition to undergo the procedure. The anesthesia plan was to use general anesthesia. Immediately prior to administration of medications, the patient was re-assessed for adequacy to receive sedatives. The heart rate, respiratory rate, oxygen saturations, blood pressure, adequacy of pulmonary ventilation, and response to care were monitored throughout the procedure. The physical status of the patient was re-assessed after the procedure. After obtaining informed consent, the scope was passed under direct vision. Throughout the procedure, the patient's blood pressure, pulse, and oxygen saturations were monitored continuously. The Duodenoscope was introduced through the mouth, and advanced to the duodenum and used to inject contrast into the bile duct and dorsal pancreatic duct. The ERCP was accomplished without difficulty. The patient tolerated the procedure well. Scope In: 12:54:58 PM Scope Out: 1:31:17 PM Total Procedure Duration Time 0 hours 36 minutes 19 seconds Findings: The hand cell tuber film was normal. The scope was advanced to a normal major papilla in the descending duodenum. Examination of the pharynx, larynx and associated structures, and upper GI tract was normal. Two temporary stents originating in the biliary tree and the pancreatic duct were emerging from the major papilla. The stents were visibly occluded. The major papilla was bulging. Large duodenal mass encompassing the second portion of the duodenum was seen. There is 2 stent seen coming from the major ampulla orifice. Biopsies were taken of the duodenal mass. 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 The ventral pancreatic duct was deeply cannulated with the short-nosed traction sphincterotome. Contrast was injected. I personally interpreted the bile duct images. There was brisk flow of contrast through the ducts. Image quality was adequate. Contrast extended to the entire biliary tree. Opacification of the pancreatic duct at the head - body junction of the pancreas was successful. The maximum diameter of the ducts was 4 mm. The entire opacified area was normal. A long 0.025 inch Jagwire was passed into the ventral pancreatic duct. A 5 mm ventral pancreatic sphincterotomy was made with a traction (standard) sphincterotome. There was no post-sphincterotomy bleeding. To find object(s) the ventral pancreatic duct was swept with a 6 mm balloon starting at the pancreatic duct in the body of the pancreas. Mucus was swept from the duct. A long 0.025 inch Jagwire was passed into the biliary tree. The short-nosed traction sphincterotome was passed over the guidewire and the bile duct was then deeply cannulated. Contrast was injected. Opacification of the entire opacified area and entire biliary tree was successful. The maximum diameter of the ducts was 12 mm. The main bile duct contained multiple stones, the largest of which was 6 mm in diameter. The entire biliary tree except for the cystic duct and gallbladder and entire biliary tree were markedly dilated, acquired. The largest diameter was 13 mm. A cholecystectomy had been performed. A 5 mm biliary sphincterotomy was made with a traction (standard) sphincterotome using ERBE electrocautery. There was no post-sphincterotomy bleeding. The biliary tree was swept with a 12 mm balloon starting at the left main hepatic duct. Sludge was swept from the duct. All stones were removed. Debris was swept from the duct. Pus was swept from the duct. One stent was removed from the common bile duct using a snare and sent for cytology. The stent was found to be occluded via the water column test. One 10 Fr by 7 cm temporary stent was placed 5 cm into the common bile duct. Bile flowed through the stent. The stent was in good position. Biopsies were taken in the second portion of the duodenum through the esophagogastroduodenoscope with the cold forceps for histology. Impression: - Two visibly occluded stents from the biliary tree and the pancreatic duct were seen in the major papilla. - The major papilla appeared to be bulging. - The entire biliary tree was markedly dilated, acquired. - The patient has had a cholecystectomy. - Choledocholithiasis was found. Complete removal was accomplished by biliary sphincterotomy and balloon extraction. - A pancreatic sphincterotomy was performed. - The ventral pancreatic duct was swept and mucus was found. - A biliary sphincterotomy was performed. - The biliary tree was swept and debris and pus were found. - One stent was removed from the common bile duct. - One temporary stent was placed into the common bile duct. Procedure Code(s): --- Professional --- 30149, Endoscopic retrograde cholangiopancreatography (ERCP); with removal and exchange of stent(s), biliary or pancreatic duct, including pre- and post-dilation and guide wire passage, when performed, including sphincterotomy, when performed, each stent exchanged 88340, 51, Endoscopic retrograde cholangiopancreatography (ERCP); with removal of calculi/debris from biliary/pancreatic duct(s) 56542, 59, Endoscopic retrograde cholangiopancreatography (ERCP); with sphincterotomy/papillotomy 39765, Esophagogastroduodenoscopy, flexible, transoral; with biopsy, single or multiple 65098, 26, Endoscopic catheterization of the biliary ductal system, radiological supervision and interpretation CPT copyright 2021 [employer]. All rights reserved. The codes documented in this report are preliminary and upon esol teacher review may be revised to meet current compliance requirements. Ronnie Hannon DO 08/16/2024 1:51:36 PM This report has been signed electronically. Number of Addenda: 0 Note Initiated On: 08/16/2024 12:05 PM
--- NOTE | 2024-08-16 13:55 | PCM.POST.ANE ---
Anesthesia: Postop Eval I Current Vital Signs Temperature: 98.7 F Pulse Rate: 87 Blood Pressure: 86/41 Respiratory Rate: 18 Pulse Ox: 95 Oxygen Delivery Method: Room Air Assessment Airway patent: Yes Spontaneous unlabored respirations: Yes Mental status: Asleep nausea: No Vomiting: No Anesthesia Complication: No Fluid Hydration Crystalloid volume administer (ml): 1,200 Total IV fluid infused: 1,200 Progress Note Anesthesia document: Postop Eval 1 completed: Yes
--- NOTE | 2024-08-16 14:04 | CASEMGMT ---
OFELIA CM to pt room at this time for initial planning assessment. Pt is currently off of the floor for an ERCP. CM to follow.
--- NOTE | 2024-08-16 14:42 | PCM.POSTANE2 ---
Anesthesia Postop Eval I Sum Postop Eval Completion status Anesthesia document: Postop Eval 1 completed: Yes Anesthesia Postop Eval I Summary Anesthesia Postop Eval I Summary: Anesthesia Postop Eval I: Assessment Summary Airway patent Yes 08/16/24 13:55 [email or web address] Spontaneous unlabored Yes 08/16/24 13:55 [email or web address] respirations Mental status Asleep 08/16/24 13:55 [email or web address] nausea No 08/16/24 13:55 [email or web address] Vomiting No 08/16/24 13:55 [email or web address] Anesthesia Postop Eval I: Fluid Summary Crystalloid volume administer 1,200 08/16/24 13:55 [email or web address] (ml) Colloids volume administered ( ml) Blood Product volume administered (ml) Total IV fluid infused 1,200 08/16/24 13:55 [email or web address] Anesthesia Postop Eval I: Summary Notes Anesthesia Complication No 08/16/24 13:55 [email or web address] Anesthesia Complication Comment: Post-operative progress note Anesthesia: Postop Eval II Evaluation Mental status: Awake and Calm Pain Level: 1 nausea: No Vomiting: No Complications Anesthesia Complication: No
--- NOTE | 2024-08-16 14:59 | PCM.POSTANE2 ---
Anesthesia Postop Eval I Sum Postop Eval Completion status Anesthesia document: Postop Eval 1 completed: Yes Anesthesia Postop Eval I Summary Anesthesia Postop Eval I Summary: Anesthesia Postop Eval I: Assessment Summary Airway patent Yes 08/16/24 13:55 [email or web address] Spontaneous unlabored Yes 08/16/24 13:55 [email or web address] respirations Mental status Awake,Calm 08/16/24 14:42 nausea No 08/16/24 14:42 Vomiting No 08/16/24 14:42 Anesthesia Postop Eval I: Fluid Summary Crystalloid volume administer 1,200 08/16/24 13:55 [email or web address] (ml) Colloids volume administered ( ml) Blood Product volume administered (ml) Total IV fluid infused 1,200 08/16/24 13:55 [email or web address] Anesthesia Postop Eval I: Summary Notes Anesthesia Complication No 08/16/24 14:42 Anesthesia Complication Comment: Post-operative progress note Anesthesia: Postop Eval II Evaluation Mental status: Awake and Calm Pain Level: 0 nausea: No Vomiting: No Complications Anesthesia Complication: No
[2024-08-16] MEDS: Insulin Lispro 100 UNIT/ML INSULN.PEN SC (17:20)
[2024-08-16] MEDS: Tamsulosin HCl 0.4 MG Capsule PO (17:22)
--- NOTE | 2024-08-16 17:34 | PN.HOSP_ITS ---
Reason for Visit Reason for Visit: Abdominal pain/nausea/vomiting Subjective Subjective Patient states he is feeling much better today. Is hungry and states he is good to eat a cheese steak for dinner. Anxious to go home. We did discuss as long as he tolerates p.o. the plan will be to discharge home tomorrow with outpatient follow-up for biopsy on Tuesday as scheduled at [facility]. 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 Objective Data Objective Data Vital Signs: Vital Signs Temp Pulse Resp BP Pulse Ox O2 Del Method O2 Flow Rate 97.7 F L 62 18 129/56 H 94 Room Air 2 08/16/24 16:55 08/16/24 16:55 08/16/24 16:55 08/16/24 16:55 08/16/24 16:55 08/16/24 16:55 08/16/24 14:15 Oxygen Flow Rate (L/min) 2 Oxygen Delivery Method Room Air Weight: 91.9 kg Body Mass Index (BMI) 27.4 Intake & Output: Intake and Output for Last 24 Hours 08/14/24 08/15/24 08/16/24 23:59 23:59 23:59 Intake Total 3970 / 4090 1354.53 / 1354.53 Output Total 400 / 400 Balance 3970 / 4090 954.53 / 954.53 Lab / Micro Data 08/16/24 05:20 08/16/24 05:20 Labs: Laboratory Results - last 24 hr 08/15/24 17:36: POC Glucose 210 H 08/15/24 22:50: POC Glucose 182 H 08/16/24 05:20: WBC 10.2, RBC 3.86 L, Hgb 10.9 L, Hct 34.4 L, MCV 89.1, MCH 28.2, MCHC 31.7 L, RDW Std Deviation 43.8, RDW Coeff of Shoshana 13.4, Plt Count 160, MPV 13.1 H, Immature Gran % (Auto) 0.300, Neut % (Auto) 85.0 H, Lymph % (Auto) 5.8 L, [place] % (Auto) 5.9, Eos % (Auto) 2.6, Baso % (Auto) 0.4, Absolute Neuts (auto) 8.7 H, Absolute Lymphs (auto) 0.59 L, Nucleated RBC % 0, Sodium 141, Potassium 3.6, Chloride 113 H, Carbon Dioxide 24.0, Anion Gap 4 L, BUN 12, Creatinine 0.91, Estim Creat Clear Calc 82.91, Est GFR (MDRD) Af Amer 106, Est GFR (MDRD) Non-Af 88, BUN/Creatinine Ratio 13.2, Glucose 136 H, Calcium 7.7 L, P hosphorus 2.2 L, Magnesium 1.9, Total Bilirubin 1.60 H, AST 156 H, ALT 242 H, A lkaline Phosphatase 580 H, Total Protein 5.2 L, Albumin 2.0 L, Globulin 3.2, A lbumin/Globulin Ratio 0.6 L 08/16/24 06:01: POC Glucose 131 H Micro: Microbiology 08/15/24 09:21 Mucosa - Nose SARS-CoV-2, Influenza & RSV (PCR) - Final Radiography Diagnostic Testing: Radiology Impression Endo Retro Cholangiopancreatogram 08/16/24 12:55 IMPRESSION: Fluoroscopic services provided for ERCP. Electronically Signed: Juan Jean MD at 14:26 EDT , Rhythm Strip Rhythm Strip: Sinus Rhythm Rate: 85 Ectopy: None Physical Exam Const alert, oriented x3, no apparent distress and average body habitus; Negative for healthy appearing or well nourished Constitutional Narrative: Older, white male, sitting up in bed, watching television, nursing at bedside, appears much improved with regards to hydration and appears much more comfortable yesterday, remains nontoxic HEENT normocephalic, head/scalp atraumatic and moist oral mucous membranes HEENT Narrative: Mallampati 3, no thrush Resp normal respiratory effort, no retractions, no use of accessory muscles and clear to auscultation bilaterally Auscultation: Negative for rales, rhonchi or wheezes Cardio regular rate, regular rhythm, S1 normal heart sound, S2 normal heart sound, no murmurs, no rub, no gallops and no clicks GI normal to inspection, nondistended, normoactive bowel sounds, soft to palpation and non-tender Extremity no clubbing, cyanosis or edema Extremity Narrative: Radial and pedal pulses are 2+ Neuro oriented x3, moves all extremities and no focal motor deficits Speech: speech normal Psych affect normal Assessment & Plan Assessment/Plan (1) Choledocholithiasis: (2) Acute hypokalemia: (3) Diarrhea: QUALIFIERS: Diarrhea type: unspecified type Qualified Code(s): R 19.7 - Diarrhea, unspecified (4) Lactic acidosis: (5) Dehydration: PLAN: Plan Abdominal pain/nausea/vomiting secondary to recurrent choledocholithiasis -Patient with multiple episodes of choledocholithiasis -ERCP done today and per discussion with Dr. 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 He is unsure if this is extending from biliary ducts versus primary duodenal -Has had multiple ERCPs with biopsies and brushings before all of which had been negative -Patient was also found to have choledocholithiasis for which removal was performed with sphincterotomy and balloon extraction and a stent was placed in the common bile duct -Patient has biopsy upcoming on Tuesday -Start p.o. diet -Discontinue IV fluids -As needed pain medication and antiemetics still available -Continue meropenem and will need to discharge home with Cipro and Flagyl as patient has penicillin allergy for periprocedural ERCP Lactic acidosis secondary to dehydration -Resolved Hypokalemia -Resolved Hypophosphatemia -Mild -K-Phos given -Recheck in a.m. Persistent diarrhea - reports that he has 6-7 bowel movements but they are all in the morning after he wakes up and does not have much throughout the rest of the day -Has been ongoing for several months -Stool studies were ordered but patient has not yet had any bowel movements -If recurs prior to discharge will consider antimotility agents prior to discharge -Has outpatient colonoscopy next week Pancreatic insufficiency -Continue home Creon -Biopsy upcoming at [facility] on Tuesday History of gastroparesis -Patient had a abnormal gastric emptying study performed on 12/08/2023 -Patient has follow-up with GI for this -Currently not on any Reglan or other medications to address -Likely related to his longstanding diabetes -Continue outpatient GI follow-up History of stroke -Continue risk factor modification -Aspirin on hold for now for possible intervention -Continue aspirin -See above Hyperlipidemia -Will hold home atorvastatin for now with liver enzyme elevations but will likely be able to restart at discharge DM-2 -Continue Lantus 18 units now and anticipate reinitiating his home dose at discharge -Hold prandial insulin -SSI -Accu-Cheks as ordered GERD -Patient is currently not on any PPI BPH with obstruction -Continue home Flomax -Continue home finasteride History of COPD -Continue home inhalers Depression -Continue home venlafaxine CALLI -Continue home CPAP DVT prophylaxis -Lovenox subcu 40 mg daily CODE STATUS -DNR CCA okay for short-term intubation as verified with patient on presentation Charges/Coding Visit Charges Inpatient E&M: 51880 Subs Hosp L2
[2024-08-16 17:41] LABS: Bedside Glucose 221 mg/dL (74-106)
[2024-08-16] MEDS: Insulin Glargine-YFGN 100 UNIT/ML Pen 18 UNIT SC (21:03)
[2024-08-16] MEDS: Colestipol 1 GM TABLET 4 GM PO (21:04)
[2024-08-16 23:11] LABS: Bedside Glucose 342 mg/dL (74-106)
[2024-08-17] MEDS: Insulin Lispro 100 UNIT/ML INSULN.PEN SC ×2 (00:35→06:02)
[2024-08-17 00:56] LABS: Bedside Glucose 319 mg/dL (74-106)
[2024-08-17 02:00] VITALS: BP 134/60; PULSE 80; RESP 16; TEMP 36.4; O2SAT 93
[2024-08-17 03:00] VITALS: PULSE 78
[2024-08-17 04:55] VITALS: BP 148/97; PULSE 85; RESP 16; TEMP 36.3; O2SAT 93
[2024-08-17] MEDS: Meropenem 1 GM in 0.9% Normal Saline (100mL MB+) 100 ML IV (05:54)
[2024-08-17] MEDS: Ondansetron 4 MG/2 ML Vial IV (05:58)
[2024-08-17 06:28] LABS: Bedside Glucose 328 mg/dL (74-106)
[2024-08-17 07:31] LABS: Hematocrit 37.3 % (40-54); Hemoglobin 11.6 g/dL (13.0-16.5); Mean Corp Hgb Conc 31.1 g/dL (32-36); Mean Corpuscular Hgb 27.5 pg (27.0-32.0); Mean Corpuscular Volume 88.4 fL (80-94); Mean Platelet Vol. 13.7 fl (6.2-12.0); Platelet Count 174 K/mm3 (150-450); RBC Distribution Width CV 13.2 % (11.6-14.6); RBC Distribution Width SD 42.8 fl (35.1-43.9); Red Blood Count 4.22 M/mm3 (4.6-6.2); White Blood Count 11.5 K/mm3 (4.4-11.0)
[2024-08-17 08:20] LABS: ALB/GLOB Ratio 0.7 RATIO (0.9-2.4); AST(SGOT) 69 U/L (15-37); Alanine Aminotransfer ALT/SGPT 192 U/L (16-61); Albumin, Serum 2.3 g/dL (3.2-5.0); Alkaline Phosphatase 584 U/L (45-117); Anion Gap 5 (5-15); BUN 14 mg/dL (7-18); BUN/Creat Ratio 14.6 RATIO (10-20); Calcium,Total 8.7 mg/dL (8.5-10.1); Chloride 107 mmol/L (98-107); Creatinine, Serum 0.96 mg/dL (0.70-1.30); EST Glomerular Filtration Rate 83 mL/min (>60); Est Glom Filt Rate - Afr Amer 100 mL/min (>60); Estimated Creatinine Clearance 78.59 ml/min; Globulin 3.4 g/dL (2.2-4.2); Glucose 304 mg/dL (74-106); Potassium 4.4 mmol/L (3.5-5.1); Protein, Total 5.7 g/dL (6.4-8.2); Sodium Level 139 mmol/L (136-145)
[2024-08-17 09:21] VITALS: BP 134/63; PULSE 72; RESP 18; TEMP 36.6; O2SAT 94
[2024-08-17] MEDS: Enoxaparin 40 MG/0.4 ML Syringe SC (09:25)
[2024-08-17] MEDS: Tamsulosin HCl 0.4 MG Capsule PO (09:25)
[2024-08-17] MEDS: Venlafaxine XR 150 MG Capsule PO (09:25)
[2024-08-17] MEDS: Finasteride 5 MG Tablet PO (09:25)
[2024-08-17] MEDS: FLU VACCINE **HIGH DOSE** TV 24-25 180 MCG/0.5 ML SYRINGE IM (10:40)
[2024-08-17] MEDS: Colestipol 1 GM TABLET 4 GM PO (10:45)
--- NOTE | 2024-08-17 11:05 | CASEMGMT ---
RN CM Face to Face with patient for initial transition planning/care coordination assessment. RN CM introduced self and role at [facility]. Patient lying in bed, alert and oriented, at bedside. Patient willing to participate in assessment and is able to answer all questions appropriately. Care providers, pharmacy, and demographics verified. Strata: 3 PCP: Shahrzad Specialists: Riddhi, GI; Dany Banks, hydraulic plumber; Roshan, neuro; Orion, Endocrine Preferred Pharmacy: [facility] Insurance: [facility] [place] Prescription Benefit: yes Living Will/HPOA: yes, Kary Woodson LNOK: Living Arrangements: Patient lives with in a single story home with 1 step to enter. Patient states he is independent at home. Transportation: self, DME/HHC: Patient has shower chair, cane, walker, rollator, cpap, and glucometer at home. Patient has been to rehab unit previously. Patient wishes to discharge home with outpatient therapy that he will schedule himself. Hospitalist updated, script received and provided to patient with [employer] information. Patient states he has no further needs or concerns at this time. CM to follow for discharge planning needs that may arise. Disposition Plan: Patient to discharge home with outpatient therapy, family support, and follow-up plans in place. Tracey PICKENS, RN, CM
--- NOTE | 2024-08-17 11:38 | DS.PCM_ITS ---
Providers Date of Admission: 08/15/24 Date of Discharge: 08/17/24 Primary Care Physician: Dr. Tommy Markham MD Consultations 08/15/24 12:52 Consult: Gastroenterology Routine Consulting Provider: Danita Gastro[facility] Reason for Consult: choledocholitiasis EMERGENT Consult: No MD Notified: Yes Date Notified: 08/15/24 Time Notified: 11:58 Method of Notification: ED Physician Initiated Reason For Visit: CHOLEDOCHOLITIASIS Diagnosis Discharge Diagnosis (1) Choledocholithiasis: Status: Acute Code(s): K80.50 - Calculus of bile duct without cholangitis or cholecystitis without obstruction (2) Acute hypokalemia: Status: Acute Code(s): E87.6 - Hypokalemia (3) Diarrhea: Status: Chronic Code(s): R19.7 - Diarrhea, unspecified Qualifiers: Diarrhea type: unspecified type Qualified Code(s): R19.7 - Diarrhea, unspecified (4) Lactic acidosis: Status: Acute Code(s): E87.20 - Acidosis, unspecified (5) Dehydration: Status: Acute Code(s): E86.0 - Dehydration Medications at Discharge Home Medications venlafaxine 150 mg capsule,extended release 24 hr 150 mg PO DAILY DEPRESSION 09/05/23 atorvastatin 80 mg tablet 80 mg PO QHS CHOLESTEROL #30 tabs 09/07/23 finasteride 5 mg tablet 5 mg PO DAILY prostate 01/05/24 tamsulosin 0.4 mg capsule 0.4 mg PO BID prostate 01/25/24 fluticasone fur. 100 mcg-umeclid 62.5 mcg-vilant 25 mcg inhalat.powder (Trelegy Ellipta) 1 ea inhalation Q24H copd 02/24/24 insulin glargine 100 unit/mL (3 mL) subcutaneous pen (Lantus Solostar U-100 Insulin) 38 unit subcut QHS diabetes 02/24/24 insulin lispro 100 unit/mL subcutaneous pen (Humalog KwikPen (U-100) Insulin) 20 unit subcut TID diabetes 02/24/24 diphenoxylate-atropine 2.5 mg-0.025 mg tablet (Lomotil) 1 tab PO TID PRN diarrhea #90 tabs 07/09/24 cyanocobalamin (vitamin B-12) 1,000 mcg/mL injection solution 1,000 mcg IM ONCE #1 mL 07/12/24 colestipol 1 gram tablet 4 g (4 x 1 gram) PO BID lower cholesterol 30 days #240 tabs 08/13/24 refnbo-gadsfobz-xkkqbrx 3,000-9,500-15,000 unit capsule, delayed rel (Creon) See Rx Instructions .Route .COMPLEX #300 caps 08/13/24 aspirin 81 mg tablet,delayed release (Enteric Coated Aspirin) 81 mg PO DAILY preventative 08/15/24 Hospital Course Operations ERCP Procedures EKG and - (Chest x-ray/gallbladder ultrasound) Summary of Care Provided Minutes Spent on Discharge: 45 Hospital Course: OLGA RODRIGUEZ, is a 69 M who presented to the emergency department at [facility] on 08/15/2025 due to abdominal pain, nausea, and vomiting. His assisted with history as he was mildly confused on presentation likely related to his marked dehydration. He also has a history of mild memory impairment. She states about 3 days ago he began having abdominal pain in the epigastric and right upper quadrant area that has persisted and slowly worsen. He developed nausea and vomiting today. He did have 1 episode of emesis into his CPAP and there was some concern for aspiration in the emergency department however I suspect it may have been aspiration pneumonitis as his oxygen requirement is now room air. His also stated that he has been having about 7 weeks of continued diarrhea that has been about 6-7 bouts in the morning but then he is fine through the rest of the day. He has an upcoming colonoscopy scheduled for next week. They do ask if he can have his colonoscopy while he is hospitalized and explained that not why he is in the hospital so we are unable to do that now and he should keep the appointment for next week. His reported that he has not been eating much over the last 3 days. He has had episodes like this in the past where he said choledocholithiasis. He has since had a cholecystectomy. He has a pancreatic biopsy pending in the future at [facility]. Vital signs on presentation showed temperature of 99.5, heart rate 99, respiratory rate was 21, blood pressure was 89/48 with a repeat of 108/50 1:05 liter IV fluids, and patient's oxygen saturation was 91% on room air. CBC did show a leukocytosis with a left shift having a 15.6 white count and a 93.6% neutrophilia. Chemistry panel showed marked hypokalemia with a testing of 2.6. Renal function was overall unremarkable. Glucose was 166. Lactic acid was 2.8. Recent hemoglobin A1c was 7.8 on 08/02/2024. His transaminases are elevated with an AST of 375 and ALT of 407 and an alk phos of 988. Bilirubin was elevated at 2.4 with a direct bilirubin of 2.02. Troponin was 16. Lipase was normal at 28. Chest x-ray showed no acute abnormality and gallbladder ultrasound showed hepatomegaly with intrahepatic bile duct dilatation as well as pancreatic ductal dilatation stable cystic nodule in the pancreatic head and stent in the common bile duct was noted. He was admitted to the medical floor and placed on aggressive hydration, given as needed pain medication, antiemetics and gastroenterology was consulted. He was taken for ERCP on 08/16/2024 at which time 2 visibly occluded stents were noted in the biliary tree and pancreatic duct and the major papilla seem to be bulging, the entire biliary tree was markedly dilated and this appeared to be acquired. He has had previous cholecystectomy. Choledocholithiasis was found and complete removal of stones was accomplished via biliary sphincterotomy and balloon extraction. A pancreatic sphincterotomy was performed and the ventral pancreatic duct was swept and mucus was found. A biliary sphincterotomy was performed and the biliary tree was swept and debris and pus were found. 1 stent was removed from the common bile duct and 1 temporary stent was placed in the common bile duct. Biopsies were taken and Dr. Hannon was highly suspicious of cancer at that time. Previous biopsies have been taken from previous ERCPs and they have all been negative. Pathology from cholecystectomy was unremarkable as well. Postprocedure patient tolerated p.o. well. He is to remain on his colestipol, Pancrease, and Lomotil. He has a follow-up with GI in [place] on Tuesday scheduled to be evaluated for ultrasound to ascertain whether or not removal of this malignancy can be performed endoscopically or he will require open surgery with consultation to hepatobiliary surgeon. No medication changes were made at discharge but he was discharged with Levaquin for another 10 days for periprocedural antibiotic coverage after ERCP. He was discharged home in stable condition on 08/17/2024. Discharge diagnoses: Abdominal pain/nausea/vomiting-resolved Recurrent choledocholithiasis Biliary tree malignancy Lactic acidosis-resolved Dehydration-resolved Hypokalemia-resolved Hypophosphatemia-resolved Diarrhea Pancreatic insufficiency History of gastroparesis History of stroke Hyperlipidemia DM-2 GERD BPH with obstruction History of COPD Depression CALLI Mild cognitive impairment Physical Exam Const alert, oriented x3, no apparent distress, average body habitus and no limitations; Negative for healthy appearing or well nourished Constitutional Narrative: Older, white male, sitting up in a chair at the bedside, watching television, at bedside, appears comfortable, nontoxic General Appearance: cooperative, comfortable, well kempt and well developed Exam Limitations: no limitations Nutritional Appearance: overweight HEENT normocephalic, head/scalp atraumatic and moist oral mucous membranes HEENT Narrative: Moderate hearing loss, Mallampati 3, no thrush Eyes PERRL, EOMs intact bilaterally and conjunctivae normal Eyes Narrative: No scleral icterus noted at this time Neck no lymphadenopathy and supple Neck Narrative: Neck is short and thick, trachea midline Resp normal respiratory effort, no retractions, no use of accessory muscles and clear to auscultation bilaterally Auscultation: Negative for rales, rhonchi or wheezes Cardio regular rate, regular rhythm, S1 normal heart sound, S2 normal heart sound, no murmurs, no rub, no gallops and no clicks GI normal to inspection, nondistended, normoactive bowel sounds, soft to palpation and non-tender Extremity no clubbing, cyanosis or edema Extremity Narrative: Radial and pedal pulses are 2+ Skin no rashes or lesions noted, no wounds, skin turgor normal and no jaundice Neuro oriented x3, moves all extremities and no focal motor deficits Speech: speech normal Psych affect normal Psych Narrative: Weight / BMI Weight Weight: 91.9 kg Body Mass Index (BMI) 27.4 ABG / Lab / Microbiology Data 08/17/24 07:06 08/17/24 07:06 Laboratory: Laboratory Results - last 24 hr 08/16/24 17:19: POC Glucose 221 H 08/16/24 21:02: POC Glucose 342 H 08/17/24 00:32: POC Glucose 319 H 08/17/24 06:01: POC Glucose 328 H 08/17/24 07:06: WBC 11.5 H, RBC 4.22 L, Hgb 11.6 L, Hct 37.3 L, MCV 88.4, MCH 27.5, MCHC 31.1 L, RDW Std Deviation 42.8, RDW Coeff of Shoshana 13.2, Plt Count 174, MPV 13.7 H, Sodium 139, Potassium 4.4, Chloride 107, Carbon Dioxide 27.0, Anion Gap 5, BUN 14, Creatinine 0.96, Estim Creat Clear Calc 78.59, Est GFR (MDRD) Af Amer 100, Est GFR (MDRD) Non-Af 83, BUN/Creatinine Ratio 14.6, Glucose 304 H, Calcium 8.7, Total Bilirubin 1.40 H, AST 69 H, ALT 192 H, Alkaline Phosphatase 584 H, Total Protein 5.7 L, Albumin 2.3 L, Globulin 3.4, Albumin/Globulin Ratio 0.7 L Microbiology: Microbiology 08/15/24 09:21 Mucosa - Nose SARS-CoV-2, Influenza & RSV (PCR) - Final Radiography Diagnostic Testing: Radiology Impression Endo Retro Cholangiopancreatogram 08/16/24 12:55 IMPRESSION: Fluoroscopic services provided for ERCP. Electronically Signed: Juan Jean MD at 14:26 EDT Reading Location ID and State: [facility] / [place] , Service support , D/C Instructions Discharge Diet: Low fat / Low cholesterol and 1800 Calorie Control Diet Discharge Activity: Return to Normal Activity Meaningful Use Info Meaningful Use Meaningful Use Diagnoses (Choose all that apply): None applicable Ischemic Stroke Statin Dosing Therapy Reference: STATIN DOSE THERAPY REFERENCE: * Patients > 75 years receive moderate or high dose statin therapy. * Patients 75 years or YOUNGER should receive HIGH intensity statin dose unless contraindicated. You will be required to document reason for non-treatment if statin daily dose does not meet guidelines. HIGH DOSE STATIN THERAPY DAILY Atorvastatin > than or = to 40 mg Rosuvastatin > than or = to 20 mg Amlodipine + Atorvastatin > than or = to 2.5/40 mg Ezetimibe + Simvastatin 10/80 mg Simvastatin 80mg Discharge Plan Admission Admit Date/Time: 08/15/24 11:52 Primary Reason for Your Visit: Abdominal pain/nausea/vomiting Attending Provider: Elizabeth Montalvo Primary Care Provider: Tommy Markham Instructions Additional Instructions / Restrictions: 1. Please follow-up with the appointment on Tuesday in [place]. -Take all the paperwork that Dr. Hannon gave you to that appointment Discharge Orders/Prescriptions Prescriptions: Continued cyanocobalamin (vitamin B-12) 1,000 mcg/mL solution 1,000 mcg IM ONCE Qty: 1 0RF venlafaxine 150 mg capsule,extended release 24hr 150 mg PO DAILY atorvastatin 80 mg Tablet 80 mg PO QHS Qty: 30 2RF finasteride 5 mg tablet 5 mg PO DAILY tamsulosin 0.4 mg Capsule 0.4 mg PO BID insulin lispro [Humalog KwikPen Insulin] 100 unit/mL insulin pen 20 unit subcut TID insulin glargine [Lantus Solostar U-100 Insulin] 100 unit/mL (3 mL) insulin pen 38 unit subcut QHS Trelegy Ellipta 100-62.5-25 mcg blister with device 1 ea inhalation Q24H aspirin [Enteric Coated Aspirin] 81 mg tablet,delayed release (DR/EC) 81 mg PO DAILY diphenoxylate-atropine [Lomotil] 2.5-0.025 mg tablet 1 tab PO TID PRN (Reason: diarrhea) Qty: 90 0RF colestipol 1 gram tablet 4 g PO BID 30 Days Qty: 240 0RF Creon 3,000-9,500- 15,000 unit capsule,delayed release(DR/EC) See Rx Instructions .ROUTE .COMPLEX Qty: 300 2RF Rx Instructions: 1 cap orally with meals and snack - take before eating;do not exceed 10,000 unit/kg lipase per 24 hrs Referrals / Follow Up: Ronnie Hannon DO [Med Staff - Active Staff] - 09/07/24 9:30 am (Appointment is with BEN Murphy in Dr. Johnston office. ) Tommy Markham MD [Primary Care Provider] - 08/21/24 4:00 pm (Please arrive at 3:45pm and bring your photo ID and insurance card. ) Disposition Disposition (needs filled in before D/C Order can be placed): Home, Self Care Charges/Coding Visit Charges Inpatient E&M: 80653 Disch Hosp >30min
--- NOTE | 2024-08-17 17:41 | EX.PCM.PN.GI ---
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 Objective Data Objective Data Vital Signs: Vital Signs Temp Pulse Resp BP Pulse Ox O2 Del Method O2 Flow Rate 97.8 F 72 18 134/63 H 94 Room Air 2 08/17/24 09:21 08/17/24 09:21 08/17/24 09:21 08/17/24 09:21 08/17/24 09:21 08/17/24 09:21 08/16/24 14:15 Oxygen Flow Rate (L/min) 2 Oxygen Delivery Method Room Air Weight: 202 lb 9.677 oz Body Mass Index (BMI) 27.4 Intake & Output: Intake and Output for Last 24 Hours 08/15/24 08/16/24 08/17/24 23:59 23:59 23:59 Intake Total 3970 / 4090 1885.33 / 2245.33 600 / 600 Output Total 550 / 1000 450 / 450 Balance 3970 / 4090 1335.33 / 1245.33 150 / 150 Lab / Micro Data 08/17/24 07:06 08/17/24 07:06 Labs: Laboratory Results - last 24 hr 08/16/24 17:19: POC Glucose 221 H 08/16/24 21:02: POC Glucose 342 H 08/17/24 00:32: POC Glucose 319 H 08/17/24 06:01: POC Glucose 328 H 08/17/24 07:06: WBC 11.5 H, RBC 4.22 L, Hgb 11.6 L, Hct 37.3 L, MCV 88.4, MCH 27.5, MCHC 31.1 L, RDW Std Deviation 42.8, RDW Coeff of Shoshana 13.2, Plt Count 174, MPV 13.7 H, Sodium 139, Potassium 4.4, Chloride 107, Carbon Dioxide 27.0, Anion Gap 5, BUN 14, Creatinine 0.96, Estim Creat Clear Calc 78.59, Est GFR (MDRD) Af Amer 100, Est GFR (MDRD) Non-Af 83, BUN/Creatinine Ratio 14.6, Glucose 304 H, Calcium 8.7, Total Bilirubin 1.40 H, AST 69 H, ALT 192 H, Alkaline Phosphatase 584 H, Total Protein 5.7 L, Albumin 2.3 L, Globulin 3.4, Albumin/Globulin Ratio 0.7 L Micro: Microbiology 08/15/24 09:21 Mucosa - Nose SARS-CoV-2, Influenza & RSV (PCR) - Final Rhythm Strip Rhythm Strip: Sinus Rhythm Rate: 85 Ectopy: None Physical Exam Const alert, oriented x3, no apparent distress, average body habitus and no limitations; Negative for healthy appearing or well nourished Constitutional Narrative: Older, white male, sitting up in a chair at the bedside, watching television, at bedside, appears comfortable, nontoxic General Appearance: cooperative, comfortable, well kempt and well developed Exam Limitations: no limitations Nutritional Appearance: overweight HEENT normocephalic, head/scalp atraumatic and moist oral mucous membranes HEENT Narrative: Moderate hearing loss, Mallampati 3, no thrush Eyes PERRL, EOMs intact bilaterally and conjunctivae normal Eyes Narrative: No scleral icterus noted at this time Neck no lymphadenopathy and supple Neck Narrative: Neck is short and thick, trachea midline Resp normal respiratory effort, no retractions, no use of accessory muscles and clear to auscultation bilaterally Auscultation: Negative for rales, rhonchi or wheezes Cardio regular rate, regular rhythm, S1 normal heart sound, S2 normal heart sound, no murmurs, no rub, no gallops and no clicks GI normal to inspection, nondistended, normoactive bowel sounds, soft to palpation and non-tender Extremity no clubbing, cyanosis or edema Extremity Narrative: Radial and pedal pulses are 2+ Skin no rashes or lesions noted, no wounds, skin turgor normal and no jaundice Neuro oriented x3, moves all extremities and no focal motor deficits Speech: speech normal Psych affect normal Psych Narrative: Assessment & Plan Assessment/Plan (1) Choledocholithiasis: (2) Acute hypokalemia: (3) Diarrhea: QUALIFIERS: Diarrhea type: unspecified type Qualified Code(s): R19.7 - Diarrhea, unspecified (4) Lactic acidosis: (5) Dehydration: PLAN: Plan 69-year-old gentleman with abdominal pain/nausea/vomiting secondary to recurrent choledocholithiasis -Patient with multiple episodes of choledocholithiasis -ERCP done yesterday it appears that 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 He is unsure if this is extending from biliary ducts versus primary duodenal -Has had multiple ERCPs with biopsies and brushings before all of which had been negative -Patient was also found to have choledocholithiasis for which removal was performed with sphincterotomy and balloon extraction and a stent was placed in the common bile duct -Patient has an appointment for endoscopic ultrasound on Tuesday at [facility] -Continue meropenem and will need to discharge home with Cipro and Flagyl as patient has penicillin allergy for periprocedural ERCP Charges/Coding Visit Charges Inpatient E&M: 74623 Subs Hosp L3
== END 2024-08-17 12:44 | disposition home or self-care (01) | DRG 445 ==
LOC: ED 12:00 → PCU 12:10
PROVIDERS: Internal Medicine Gastroenterology; Admitting Provider Internal Medicine; Emergency Provider Emergency Medicine; PCP Family Medicine; Visit Provider Internal Medicine
PROC: 0DB98ZX Excision of Duodenum, Via Natural or Artificial Opening Endoscopic, Diagnostic (ICD-10-PCS; CPT 43260; principal; 2024-08-16 11:10)
DX: K80.50 Calculus of bile duct without cholangitis or cholecystitis without obstruction (principal); E87.20 Acidosis, unspecified; C24.9 Malignant neoplasm of biliary tract, unspecified; E83.39 Other disorders of phosphorus metabolism; K86.89 Other specified diseases of pancreas; E86.0 Dehydration; E11.43 Type 2 diabetes mellitus with diabetic autonomic (poly)neuropathy; J44.9 Chronic obstructive pulmonary disease, unspecified; F01.50 Vascular dementia, unspecified severity, without behavioral disturbance, psychotic disturbance, mood disturbance, and anxiety; F32.A Depression, unspecified; E87.6 Hypokalemia; K21.9 Gastro-esophageal reflux disease without esophagitis; E78.5 Hyperlipidemia, unspecified; R19.7 Diarrhea, unspecified; F17.210 Nicotine dependence, cigarettes, uncomplicated; Z79.4 Long term (current) use of insulin; G47.33 Obstructive sleep apnea (adult) (pediatric); Z86.73 Personal history of transient ischemic attack (TIA), and cerebral infarction without residual deficits; Z79.51 Long term (current) use of inhaled steroids; Z79.82 Long term (current) use of aspirin; N40.1 Benign prostatic hyperplasia with lower urinary tract symptoms; Z66 Do not resuscitate; Z88.8 Allergy status to other drugs, medicaments and biological substances; Z88.0 Allergy status to penicillin; Z95.5 Presence of coronary angioplasty implant and graft; Z80.3 Family history of malignant neoplasm of breast; Z81.8 Family history of other mental and behavioral disorders
CPT/HCPCS: 36415; 71046; 74330; 76000; 76705; 80048; 80053; 80076; 81002; 82962; 83605; 83690; 83735; 84100; 84484; 85025; 85027; 87631; 88108; 88304; 88305; 88313; 88331; 88341; 88342; 90662; 93005; 94640; 94668; 97802; 99285; J2185; J7030; J7040; J7050; J7120; A4216; J2405

== ENCOUNTER 2025-02-16 17:31 | Emergency (ER) | payer MEDICARE, OTHER, SELFPAY ==
[2025-02-16 17:33] VITALS: BP 111/63; PULSE 93; RESP 20; TEMP 36.7; O2SAT 94; BMI 11.4
--- NOTE | 2025-02-16 17:46 | EKG12_ITS ---
Test Reason : WEAKNESS Blood Pressure : */* mmHG Vent. Rate : 85 BPM Atrial Rate : 85 BPM P-R Int : 126 ms QRS Dur : 68 ms QT Int : 364 ms P-R-T Axes : 64 11 68 degrees QTcB Int : 433 ms Sinus rhythm with Premature atrial complexes Low voltage QRS Borderline ECG When compared with ECG of 16-Aug-2024 05:36, No significant change was found Confirmed by Walter Zamorano ([id number]), publishing editor UMANG TURNER ([id number]) on 02/21/2025 10:03:35 AM Referred By: Confirmed By: Walter Zamorano
--- NOTE | 2025-02-16 17:47 | EX.ED.DYSGE1 ---
HPI History of Present Illness Chief Complaint: Weakness Informant: patient Narrative Narrative: Brought in by EMS weakness in the shower with a fall. Denies any injuries. History of CVA left-sided residual weakness EMS with a cane or walker. From records does note vascular dementia however is alert and orient x 3. Also reports he had chemotherapy this past at [facility]. Reports having a Whipple's procedure to his abdomen 5 months ago. Patient unable to tell me what specific type of cancer. He denies cough denies recent vomiting diarrhea denies urinary symptoms. Denies any pain in his chest or abdomen. Denies any headaches. He states did not hit his head. Spouse currently not present. After evaluation patient reviewing records July 2024 followed by GI with multiple choledocholithiasis with previous cholecystectomy. On his ERCP July 2024 found to have a duodenal mass unclear source at that time. Prior similar symptoms: Yes [facility] Medical History Choledocholithiasis Diarrhea History of multiple cerebrovascular accidents (CVAs) Wears hearing aid Loss of hearing Insulin dependent diabetes mellitus Excessive bleeding Smoker Chronic cough History of echocardiogram History of stress test Ramirez catheter in place Chronic cholecystitis Unintentional weight loss of 1-2% body weight within 1 week Elevated liver transaminase level Jaundice Abdominal discomfort Choledocholithiasis Cholestatic hepatitis Common bile duct dilation Diabetes GERD (gastroesophageal reflux disease) Non-smoker CPAP (continuous positive airway pressure) dependence Sleep apnea COPD (chronic obstructive pulmonary disease) Stroke/cerebrovascular accident Stroke-like symptoms History of diabetes mellitus History of stroke Slurred speech Home Medications ?Medication ?Instructions ?Recorded ?Last Taken ?Type venlafaxine 150 mg 150 mg PO DAILY DEPRESSION 09/05/23 03/01/24 History capsule,extended release 24 hr atorvastatin 80 mg tablet 80 mg PO QHS CHOLESTEROL #30 tabs 09/07/23 03/01/24 Rx finasteride 5 mg tablet 5 mg PO DAILY prostate 01/05/24 03/01/24 History tamsulosin 0.4 mg capsule 0.4 mg PO BID prostate 01/25/24 03/01/24 History fluticasone fur. 100 mcg-umeclid 1 ea inhalation Q24H copd 02/24/24 03/01/24 History 62.5 mcg-vilant 25 mcg inhalat.powder (Trelegy Ellipta) insulin glargine 100 unit/mL (3 38 unit subcut QHS diabetes 02/24/24 03/01/24 History mL) subcutaneous pen (Lantus Solostar U-100 Insulin) insulin lispro 100 unit/mL 20 unit subcut TID diabetes 02/24/24 03/01/24 History subcutaneous pen (Humalog KwikPen (U-100) Insulin) cyanocobalamin (vitamin B-12) 1,000 mcg IM ONCE #1 mL 07/12/24 07/11/24 Clinic 1,000 mcg/mL injection solution [id number] See Rx Instructions .Route 08/13/24 Unknown Rx 3,000-9,500-15,000 unit capsule, .COMPLEX #300 caps delayed rel (Creon) aspirin 81 mg tablet,delayed 81 mg PO DAILY preventative 08/15/24 Unknown History release (Enteric Coated Aspirin) blood-glucose meter,continuous #1 ea 11/16/24 Unknown Rx (FreeStyle Shashank 3 [place]) pantoprazole 40 mg tablet,delayed 40 mg PO QAM 01/30/25 Unknown History release blood-glucose sensor (FreeStyle #6 ea 02/12/25 Unknown Rx Shashank 3 Plus Sensor device) Allergy/AdvReac Type Severity Reaction Status Date / Time Penicillins Allergy Intermediate Hives Verified 02/16/25 17:33 metformin AdvReac Mild Diarrhea Verified 02/16/25 17:33 Family History Other Alzheimer disease Breast cancer Thyroid cancer Surgical History S/P TURP History of ERCP Status post laparoscopic cholecystectomy History of cholecystectomy S/P ERCP History of ear surgery Social History household members: spouse housing: house current occupational status: retired Smoking Status: Current every day smoker tobacco type: cigarettes Tobacco: How many years used: 50 how long ago did patient quit smoking: alcohol intake: never substance use type: does not use what type of physical activity do you participate in: none and walking seatbelt use: always do you feel safe at home: Yes ROS ROS ED Constitutional Constitutional ED: Denies chills, fever(s) or sweats ENT ENT ED: Denies sore throat Cardiovascular Cardiovascular: Denies chest pain, leg edema, palpitations or racing heartbeat Respiratory/Chest Respiratory/Chest: Denies cough, dyspnea or dyspnea on exertion Gastrointestinal Gastrointestinal: Denies abdominal pain, diarrhea, nausea or vomiting Genitourinary Genitourinary ED: Denies dysuria, hematuria or urinary frequency Musculoskeletal Musculoskeletal: Denies back pain, extremity pain or neck pain Integumentary Denies rash or wounds Neurologic Neurologic: Denies headache(s), paresthesias or weakness EXAM Physical Exam Const Vital Signs: 02/16/25 17:33 02/16/25 17:38 02/16/25 19:31 Temperature 98.0 F Temperature Source Oral Pulse Rate 93 72 Respiratory Rate 20 H 17 Respiratory Effort Normal Respiratory Pattern Normal Blood Pressure 111/63 125/60 H Blood Pressure Mean 79 81 Pulse Ox 94 97 Oxygen Delivery Method Room Air Room Air Positive well nourished and well developed General Appearance ED: well developed and NAD HEENT Reports moist mucous membranes HEENT Narrative: Chronic left lip droop normocephalic and atraumatic Eyes General Eye ED: Yes normal appearance of both eyes Neck full ROM Chest Wall Chest: Negative for tenderness Resp normal respiratory effort and normal air movement Effort and Inspection: symmetric chest movement; Negative for respiratory distress Cardio regular rate, regular rhythm and no murmurs Peripheral Pulses: pulses 2+ throughout GI normal to inspection, nondistended, normoactive bowel sounds and non-tender GI Narrative: Midline upper abdominal scar Palpation: Negative for guarding or rebound tenderness present Extremity normal to inspection General Extremety ED: Negative for edema or tenderness General Extremity: Negative for edema Neuro oriented x3 and no sensory deficits noted Neuro Narrative: Residual weakness left side 4 out of 5 compared to right. Sensorium / Orientation: awake and alert Skin no rashes or lesions noted and no wounds MDM MDM MDM Narrative Medical decision making narrative: Interventions / MDM: Differential diagnosis: Weakness, postchemotherapy, history of biliary cancer Diagnosis considered but do not suspect: Infectious findings however negative chest x-ray and urine. My EKG interpretation: Sinus rate of 85, no ST or T wave changes occasional PACs noted. Imaging independently reviewed and interpreted by myself: 1 view chest x-ray: No acute process also read by radiology. External documents reviewed: Previous inpatient notes from July 2024 and GI notes. Test considered but not ordered:N/A ED course: Vital signs stable nontoxic. Chronic left-sided weakness. Status post chemo, he is afebrile. Check EKG labs urine chest x-ray. No clinical areas of injury from his fall. Will wait for spouse for further discussion. 2030: Labs are all stable. Urine negative for infection chest x-ray negative for any acute process. Spouse in the room, reports chemo 2 days ago. Chemo started in December done weekly for 3 weeks with 1 week off. Last treatment was 2 days ago he has not had any issues with chemotherapy is followed by Dr. 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 He had episode of gagging this morning, he is weak throughout the day, he does mainly ambulate with a cane however does have a walker. She has had no fevers. She is tolerating oral fluids in ED. Will attempt ambulation with a walker for stability. Discussed likely post chemo weakness. Is afebrile with normal WBC at 10.6. Patient able to ambulate. He will use his walker at home. Outpatient follow-up. All questions were answered. Re-evaluation: stable Disposition discussed with patient/family/significant other: Patient and spouse Case discussed with consulting clinician: N/A This note was generated with SmartPill dictation software. It may contain incorrect words, spelling, and punctuation that were not noted in checking the note before signing. Lab Data Attestation: I reviewed the patient's lab results. Labs: Laboratory Results - last 24 hr 02/16/25 02/16/25 18:10 19:45 WBC 10.6 RBC 4.15 L Hgb 11.8 L Hct 35.5 L MCV 85.5 MCH 28.4 MCHC 33.2 RDW Std Deviation 58.8 H RDW Coeff of [place] 19.0 H Plt Count 352 MPV 11.7 Immature Gran % (Auto) 0.400 Neut % (Auto) 91.4 H Lymph % (Auto) 3.1 L [place] % (Auto) 3.3 Eos % (Auto) 1.4 Baso % (Auto) 0.4 Absolute Neuts (auto) 9.7 H Absolute Lymphs (auto) 0.33 L Nucleated RBC % 0 Differential Comment SCANNED Sodium 136 Potassium 3.9 Chloride 101 Carbon Dioxide 23.7 Anion Gap 11 BUN 16 Creatinine 1.03 Estim Creat Clear Calc 36.09 L Est GFR (MDRD) Non-Af 78 BUN/Creatinine Ratio 15.5 Glucose 173 H Calcium 8.3 Total Bilirubin 0.81 AST 41 H ALT 43 Alkaline Phosphatase 145 H Total Protein 5.9 Albumin 3.3 L Globulin 2.6 Albumin/Globulin Ratio 1.3 Urine Color Yellow Urine Clarity Clear Urine pH 6.0 Ur Specific [place] 1.015 Urine Protein 15 H Urine Glucose (UA) 50 H Urine Ketones Negative Urine Occult Blood Negative Urine Nitrite Negative Urine Bilirubin Negative Urine Urobilinogen 1 H Ur Leukocyte Esterase 25 H Urine RBC 0 SEEN Urine WBC 0-5 SEEN Ur Squamous Epith Cells 0-5 SEEN Calcium Oxalate Crystal 3+ Urine Bacteria 0 SEEN Urine Mucus 0 SEEN Radiography Diagnostic Testing: Clinical Impression(s) from Imaging Studies Chest X-Ray 02/16/25 18:23 IMPRESSION: 1. No acute cardiopulmonary process. Reading Location: [facility] Discharge Plan Triage Chief Complaint: Weakness ED Provider: Noam Hebert Dx/Rx/DC Orders Clinical Impression: Weakness, Cancer of biliary tract, Chemotherapy-induced fatigue Instructions: Cancer: Managing Fatigue, ED Weakness Uncertain Cause Prescriptions: No Action cyanocobalamin (vitamin B-12) 1,000 mcg/mL solution 1,000 mcg IM ONCE Qty: 1 0RF pantoprazole 40 mg tablet,delayed release (DR/EC) 40 mg PO QAM venlafaxine 150 mg capsule,extended release 24hr 150 mg PO DAILY atorvastatin 80 mg Tablet 80 mg PO QHS Qty: 30 2RF finasteride 5 mg tablet 5 mg PO DAILY tamsulosin 0.4 mg Capsule 0.4 mg PO BID insulin lispro [Humalog KwikPen Insulin] 100 unit/mL insulin pen 20 unit subcut TID insulin glargine [Lantus Solostar U-100 Insulin] 100 unit/mL (3 mL) insulin pen 38 unit subcut QHS Trelegy Ellipta 100-62.5-25 mcg blister with device 1 ea inhalation Q24H aspirin [Enteric Coated Aspirin] 81 mg tablet,delayed release (DR/EC) 81 mg PO DAILY Creon 3,000-9,500- 15,000 unit capsule,delayed release(DR/EC) See Rx Instructions .ROUTE .COMPLEX Qty: 300 2RF Rx Instructions: 1 cap orally with meals and snack - take before eating;do not exceed 10,000 unit/kg lipase per 24 hrs (DME) FreeStyle Shashank 3 [place] Misc See Rx Instructions .Route Qty: 1 0RF Rx Instructions: As directed (DME) FreeStyle Shashank 3 Plus Sensor Device See Rx Instructions .Route Qty: 6 1RF Rx Instructions: As directed Primary Care Provider: Tommy Markham Referrals: Tommy Markham MD [Primary Care Provider] - 3-5 Days Activity Restrictions/Additional Instructions: EKG normal. Labs stable. Negative for infection. Chest x-ray negative. Continue using a walker to help with if needed. Continue oral fluids for hydration. Follow-up with your doctors. Print Language: Cypriot Disposition Disposition: Home, Self Care Discharge Date/Time: 02/16/25 21:02
[2025-02-16 18:18] LABS: Absolute Lymphocyte Count 0.33 X10^3/uL (0.83-4.51); Absolute Neutrophil Count 9.7 X10^3/uL (2.0-7.7); Basophil# 0.04 X10^3/uL; Basophil% 0.4 % (0-1); Eosinophil# 0.15 X10^3/uL; Eosinophils% 1.4 % (0-5); Hematocrit 35.5 % (40-54); Hemoglobin 11.8 g/dL (13.0-16.5); Lymphocyte # 0.33 X10^3/ul (0.83-4.51); Lymphocyte % 3.1 % (19-41); Mean Corp Hgb Conc 33.2 g/dL (32-36); Mean Corpuscular Hgb 28.4 pg (27.0-32.0); Mean Corpuscular Volume 85.5 fL (80-94); Mean Platelet Vol. 11.7 fl (6.2-12.0); Monocyte# 0.35 X10^3/uL; Monocyte% 3.3 % (0-10); NRBC Flagged by Analyzer 0 % (0-5); Neutrophil # 9.65 X10^3/uL (2.7-7.7); Neutrophil % 91.4 % (47-70); POSITIVE DIFFERENTIAL YES; POSITIVE MORPHOLOGY YES; Platelet Count 352 K/mm3 (150-450); RBC Distribution Width SD 58.8 fl (35.1-43.9); Red Blood Count 4.15 M/mm3 (4.6-6.2); White Blood Count 10.6 K/mm3 (4.4-11.0)
--- NOTE | 2025-02-16 18:23 | RAD_ITS ---
PROCEDURE: CHEST 1 VIEW (PORTABLE) 02/16/2025 REASON FOR EXAM: WEAKNESS TECHNIQUE: Frontal view of the chest. COMPARISON: 08/15/2024 FINDINGS: The lungs are clear. No pleural effusion or pneumothorax. The cardiomediastinal silhouette is normal in size. Atherosclerotic calcifications are present in the thoracic aorta. There is a right chest port with the catheter tip in the superior vena cava. No acute osseous or soft tissue abnormality. RAD/Chest 1 View (Portable) IMPRESSION: 1. No acute cardiopulmonary process. Reading Location: [facility]
[2025-02-16 18:42] LABS: Differential Indicated SCAN CRITERIA MET
[2025-02-16 19:03] LABS: Differential Comment SCANNED
[2025-02-16 19:04] LABS: ALB/GLOB Ratio 1.3 RATIO (0.9-2.4); AST(SGOT) 41 U/L (<=37); Alanine Aminotransfer ALT/SGPT 43 U/L (<=46); Albumin, Serum 3.3 g/dL (3.4-4.8); Alkaline Phosphatase 145 U/L (40-129); Anion Gap 11 (5-15); BUN 16 mg/dL (4-19); BUN/Creat Ratio 15.5 RATIO (10-20); Calcium,Total 8.3 mg/dL (7.6-11.0); Carbon Dioxide 23.7 mmol/L (21.0-32.0); Chloride 101 mmol/L (98-108); Creatinine, Serum 1.03 mg/dL (0.70-1.20); EST Glomerular Filtration Rate 78 (>60); Estimated Creatinine Clearance 36.09 ml/min (50-250); Globulin 2.6 g/dL (2.2-4.2); Glucose 173 mg/dL (70-99); Potassium 3.9 mmol/L (3.3-5.1); Protein, Total 5.9 g/dL (5.9-8.4); Sodium Level 136 mmol/L (133-145); Total Bilirubin 0.81 mg/dL (0.00-1.30)
[2025-02-16 19:31] VITALS: BP 125/60; PULSE 72; RESP 17; O2SAT 97
[2025-02-16 19:52] LABS: Bacteria 0 SEEN /hpf (None Seen); Mucous, Urine 0 SEEN /hpf (<or=2+); Red Blood Cells-Urine 0 SEEN /hpf (0-5)
[2025-02-16 20:03] LABS: Color, Urine Yellow (Yellow); Glucose, Dipstick 50 mg/dl (Normal); Ketone-Dipstick Negative (Negative); Leukocyte Esterase-Dipstick 25 /ul (Negative); Nitrite-Dipstick Negative (Negative); Occult Blood-Urine Negative /ul (Negative); Protein-Dipstick 15 mg/dl (Negative); Specific Gravity, Urine 1.015 (1.002-1.030); Urine Bilirubin Dipstick Negative (Negative); Urine Clarity Clear (Clear); Urine Urobilinogen 1 mg/dl (Normal)
[2025-02-16 20:23] LABS: Calcium Oxalate Crystals Ur 3+ /hpf (<or=2+); Squamous Epithelial Cells - UA 0-5 SEEN /hpf (0-5); White Blood Cells 0-5 SEEN /hpf (0-5)
== END 2025-02-16 21:02 | disposition home or self-care (01) ==
PROVIDERS: Emergency Provider Emergency Medicine; PCP Family Medicine; Visit Provider Emergency Medicine
DX: R53.1 Weakness (principal); C24.9 Malignant neoplasm of biliary tract, unspecified; I69.354 Hemiplegia and hemiparesis following cerebral infarction affecting left non-dominant side; F01.50 Vascular dementia, unspecified severity, without behavioral disturbance, psychotic disturbance, mood disturbance, and anxiety; J44.9 Chronic obstructive pulmonary disease, unspecified; E11.9 Type 2 diabetes mellitus without complications; F17.210 Nicotine dependence, cigarettes, uncomplicated; T45.1X5A Adverse effect of antineoplastic and immunosuppressive drugs, initial encounter; K21.9 Gastro-esophageal reflux disease without esophagitis; R53.83 Other fatigue
CPT/HCPCS: 71045; 80053; 81001; 85025; 93005; 99285; A4216

== ENCOUNTER 2025-03-12 19:53 | Emergency (ER) | payer MEDICARE, OTHER, SELFPAY ==
[2025-03-12 19:55] VITALS: BP 146/58; PULSE 99; RESP 22; TEMP 36.9; O2SAT 90; O2SAT 91; BMI 23.3
--- NOTE | 2025-03-12 20:29 | EDS_ITS ---
HPI History of Present Illness Chief Complaint: Weakness Informant: patient and spouse/S.O. 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 Also history of diabetes and prior strokes with left-sided weakness and COPD not on home oxygen. He has been undergoing chemotherapy has had 4 rounds of chemotherapy. Today was so weak he could not get out of a chair. He denies nausea, vomiting or diarrhea. He denies fever or chills. He denies any dysuria. No chest pain. He is chronically short of breath due to his COPD. Prior similar symptoms: Yes Recent Illness/Hospitalization: Yes PFSH [facility] Medical History Choledocholithiasis Diarrhea History of multiple cerebrovascular accidents (CVAs) Wears hearing aid Loss of hearing Insulin dependent diabetes mellitus Excessive bleeding Smoker Chronic cough History of echocardiogram History of stress test Ramirez catheter in place Chronic cholecystitis Unintentional weight loss of 1-2% body weight within 1 week Elevated liver transaminase level Jaundice Abdominal discomfort Choledocholithiasis Cholestatic hepatitis Common bile duct dilation Diabetes GERD (gastroesophageal reflux disease) Non-smoker CPAP (continuous positive airway pressure) dependence Sleep apnea COPD (chronic obstructive pulmonary disease) Stroke/cerebrovascular accident Stroke-like symptoms History of diabetes mellitus History of stroke Slurred speech Home Medications ?Medication ?Instructions ?Recorded ?Last Taken ?Type venlafaxine 150 mg 150 mg PO DAILY DEPRESSION 1 03/01/24 History capsule,extended release 24 hr atorvastatin 80 mg tablet 80 mg PO QHS CHOLESTEROL #3 0 tabs 09/07/23 03/01/24 Rx finasteride 5 mg tablet 5 mg PO DAILY prostate 01/0503/01/24 History tamsulosin 0.4 mg capsule 0.4 mg PO BID prostate 01/2403/01/24 History fluticasone fur. 100 mcg-umeclid 1 ea inhalation Q24H PRN copd 02/24/24 03/01/24 History 62.5 mcg-vilant 25 mcg inhalat.powder (Trelegy Ellipta) insulin glargine 100 unit/mL (3 10 unit subcut QHS partha betes 02/24/24 03/01/24 History mL) subcutaneous pen (Lantus Solostar U-100 Insulin) insulin lispro 100 unit/mL See Rx Instructions subcut TID 02/24/24 03/01/24 History subcutaneous pen (Humalog KwikPen diabetes (U-100) Insulin) cyanocobalamin (vitamin B-12) 1,000 mcg IM ONCE #1 mL 07/12/24 07/11/24 Clinic 1,000 mcg/mL injection solution [id number] See Rx Instructions .Route 0 08/13/24 Unknown Rx 3,000-9,500-15,000 unit capsule, .COMPLEX #300 caps delayed rel (Creon) aspirin 81 mg tablet,delayed 81 mg PO DAILY preventati ve 08/15/24 Unknown History release (Enteric Coated Aspirin) blood-glucose meter,continuous #1 ea 11/16/24 Unknown Rx (FreeStyle Shashank 3 [place]) blood-glucose sensor (FreeStyle #6 ea 02/12/25 Unknown Rx Shashank 3 Plus Sensor device) cholecalciferol (vitamin D3) 1,250 1,250 mcg PO QWEEK 03/12/25 Unknown History mcg (50,000 unit) capsule ferrous sulfate 325 mg (65 mg 325 mg PO DAILY 03/12/25 Unknown History iron) tablet (FeroSul) Allergy/AdvReac Type Severity Reaction Status Date / Time Penicillins Allergy Intermediate Hives Verified 03/12/25 19:54 metformin AdvReac Mild Diarrhea Verified 03/12/25 19:54 Family History Other Alzheimer disease Breast cancer Thyroid cancer Surgical History S/P TURP History of ERCP Status post laparoscopic cholecystectomy History of cholecystectomy S/P ERCP History of ear surgery Social History household members: spouse housing: house current occupational status: retired Smoking Status: Heavy Smoker (>10/day) Tobacco: How many years used: 50 how long ago did patient quit smoking: alcohol intake: never substance use type: does not use what type of physical activity do you participate in: none and walking seatbelt use: always do you feel safe at home: Yes ROS ROS ED ROS Narrative Generalized weakness. Denies fever or chills. Denies nausea, vomiting or diarrhea. Denies other complaints. Constitutional Constitutional ED: Denies chills or fever(s) Eyes Eyes: Denies blurry vision ENT ENT ED: Denies ear pain Cardiovascular Cardiovascular: Denies chest pain or palpitations Respiratory/Chest Respiratory/Chest: Reports dyspnea; Denies cough Gastrointestinal Gastrointestinal: Denies abdominal pain Genitourinary Genitourinary ED: Denies dysuria or hematuria Musculoskeletal Musculoskeletal: Denies arthralgias Integumentary Denies abscess Neurologic Neurologic: Denies headache(s) Psychiatric Psychiatric: Denies anxiety or depression Endocrine Endocrinology: Denies cold intolerance Hematologic/Lymphatic Hematologic/Lymphatic: Reports none Allergic/Immunologic Allergic/Immunologic ED: Denies mouth swelling, tongue swelling or urticaria EXAM Physical Exam Narrative Exam Narrative: 69-year-old male sitting upright in bed. Vital signs are stable. Pulse ox 90% on room air. 1-1/2 L he is 91%. He does not look septic or toxic. His oral temperature is 98.5. He is in no distress. at bedside. H EENT exam pupils round react light. Dry mucous membranes. Neck nontender no JVD. Lungs clear to auscultation bilaterally. Heart regular rhythm rate in 90s no murmur. Chest wall and ribs nontender. Abdomen soft nontender. Moving all 4 extremities. Nontender no deformity. No edema. Neurologically is awake alert. Answering questions following commands. He has fan mail clerk strength bilaterally. Dorsi plantarflexion. He is answering questions following commands. Const Vital Signs: 03/12/25 19:55 03/12/25 19:55 03/12/25 19:59 Temperature 98.5 F Temperature Source Oral Pulse Rate 99 Respiratory Rate 22 H Respiratory Effort Short of Breath Labored Respiratory Pattern Tachypnea Blood Pressure 146/58 H Blood Pressure Mean 87 Pulse Ox 90 91 Oxygen Delivery Method Room Air Nasal Cannula Oxygen Flow Rate (L/min) 1.5 03/12/25 22:00 Temperature Temperature Source Pulse Rate 82 Respiratory Rate 20 H Respiratory Effort Respiratory Pattern Blood Pressure 139/69 H Blood Pressure Mean 92 Pulse Ox 95 Oxygen Delivery Method Room Air Oxygen Flow Rate (L/min) Positive well nourished and well developed; Negative for cachectic, contractures or unkempt General Appearance ED: well developed and NAD; Negative for unkempt, cachectic, contractures, cyanotic, diaphoretic or pallor Nutritional Appearance: Negative for cachectic HEENT Reports dry mucous membranes; Denies moist mucous membranes Negative for trauma or tenderness Mouth ED: Yes dry mucous membranes Mouth: dry mucous membranes Eyes PERRL and EOMs intact bilaterally General Eye ED: Negative for pale conjunctiva, scleral icterus or other Neck no lymphadenopathy, supple and no JVD General: Negative for tenderness Lymph Lymphatic: Negative for other Chest Wall inspection of chest normal and palpation of chest normal Chest: Negative for other Resp normal respiratory effort and clear to auscultation bilaterally Auscultation: Negative for rales, rhonchi, wheezes or diminished lung sounds Cardio regular rate, regular rhythm, S1 normal heart sound, S2 normal heart sound and no murmurs GI normal to inspection, nondistended, normoactive bowel sounds, non-tender, non- distended and no masses Auscultation: normoactive bowel sounds Palpation: soft; Negative for tender or guarding Back/Spine no CVA tenderness General Back: Negative for CVA tenderness Cervical Spine: Negative for cervical spine tenderness Thoracic Spine / Upper Back: Negative for thoracic spinal tenderness or paraspinal muscle tenderness Lumbar Spine / Lower Back: Negative for lumbar spinal tenderness Extremity normal to inspection General Extremety ED: Negative for edema, tenderness or other findings General Extremity: Negative for edema or other findings Neuro oriented x3 and CN's II-XII intact bilaterally Sensorium / Orientation: alert; Negative for orientation impaired, lethargic or stuporous Motor Exam: strength 5/5 throughout; Negative for general weakness or strength abnormal Psych mental status grossly normal Appearance: Negative for unkempt Attitude: No agitated Mood & Affect: Negative for depressed, anxious or tearful Skin no rashes or lesions noted and no wounds General Skin Exam: Negative for jaundice or pallor Lesions: No lesion noted Rashes: No rashes noted Trauma: Negative for abrasion Wounds: Negative for wounds noted MDM MDM MDM Narrative Medical decision making narrative: 69-year-old male history of colon bile duct cancer status post Whipple in September. Also history of diabetes, stroke and COPD. Undergoing chemotherapy. Complain generalized weakness unable to stand and get out of her chair due to his weakness. Clinically looks dehydrated. He will be given IV fluids. He will be worked up for possible infectious etiology. I do not think he needs any CAT scans. I do not think this is a stroke. Repeat exam at 10:55 PM patient doing well. States he feels much better after the IV fluids. His vital signs are stable. He has remained afebrile he did take Tylenol prior to arrival. Patient wanted to go home. He got up out of bed without any assistance and ambulate without any difficulty. I do not have a specific cause to admit him other generalized weakness. He has had elevated white counts before. Both he and his are comfortable with him being discharged to home. They know to return if worse. They will follow-up with her oncologist. History & Record Review Discussion w/independent historian: Patient and Family Additional record(s) reviewed:: Prior inpatient record, Prior outpatient record, Prior ED visit and Prior labs Lab Data Attestation: I reviewed the patient's lab results. Lab results narrative: CBC shows a white count 16.4. H&H 12 and 35. Platelets 283. Electrolytes show sodium 137. Gap 11. Normal BUN and creatinine of 17 and 0.9. Glucose 215. Lactic acid 1.6. Liver enzymes are normal. UA is negative. No white or red cells. No nitrites or bacteria. COVID, flu and RSV are negative. Chest x-ray negative. Labs: Laboratory Results - last 24 hr 03/12/25 03/12/25 20:55 22:20 WBC 16.4 H RBC 4.03 L Hgb 12.2 L Hct 35.9 L MCV 89.1 MCH 30.3 MCHC 34.0 RDW Std Deviation 62.9 H RDW Coeff of Shoshana 19.8 H Plt Count 283 MPV 11.1 Immature Gran % (Auto) 0.400 Neut % (Auto) 87.6 H Lymph % (Auto) 3.2 L [place]eman % (Auto) 7.8 Eos % (Auto) 0.7 Baso % (Auto) 0.3 Absolute Neuts (auto) 14.4 H Absolute Lymphs (auto) 0.52 L Nucleated RBC % 0 Sodium 137 Potassium 3.8 Chloride 101 Carbon Dioxide 24.1 Anion Gap 11 BUN 17 Creatinine 0.97 Estim Creat Clear Calc 77.78 Est GFR (MDRD) Non-Af 84 BUN/Creatinine Ratio 17.7 Glucose 215 H Lactic Acid 1.6 Calcium 8.5 Total Bilirubin 0.77 AST 22 ALT 26 Alkaline Phosphatase 124 Total Protein 5.9 Albumin 3.4 Globulin 2.5 Albumin/Globulin Ratio 1.4 Urine Color Yellow Urine Clarity Clear Urine pH 6.5 Ur Specific [place] 1.015 Urine Protein Negative Urine Glucose (UA) 50 H Urine Ketones Negative Urine Occult Blood Negative Urine Nitrite Negative Urine Bilirubin Negative Urine Urobilinogen Normal Ur Leukocyte Esterase Negative Urine RBC 0 SEEN Urine WBC 0 SEEN Ur Squamous Epith Cells 0 SEEN Urine Bacteria 0 SEEN Urine Mucus 0 SEEN Radiography Chest X-Ray - ED: 1 View, Read by ED Physician, Read by Radiologist, Heart, Lungs, Mediastinum, Bony Structures, No Acute Disease and Chronic Changes Diagnostic Testing: Clinical Impression(s) from Imaging Studies Chest X-Ray 03/12/25 20:39 IMPRESSION: No acute cardiopulmonary process identified radiographically. Reading Location: [facility] Portable, Chest x-ray, 2 films 1 view interpreted both by myself and the radiologist shows chronic changes no acute process. No pneumonia. No effusions. Normal cardiac silhouette. Rhythm Strip Rhythm Strip: Sinus Rhythm Rate: 88 Ectopy: None EKG Initial EKG: Attestation: I personally reviewed and interpreted this EKG as follows: Interpretation: Sinus Rhythm and No Acute Injury Pattern Comments: Normal sinus rhythm rate 88 no acute signs of NC or ischemia. Discharge Plan Triage Chief Complaint: Weakness ED Provider: Mikey García Dx/Rx/DC Orders Clinical Impression: Generalized weakness, History of bile duct cancer, History of chemotherapy, History of diabetes mellitus, History of embolic stroke, History of COPD Instructions: ED Weakness Uncertain Cause Prescriptions: No Action cyanocobalamin (vitamin B-12) 1,000 mcg/mL solution 1,000 mcg IM ONCE Qty: 1 0RF venlafaxine 150 mg capsule,extended release 24hr 150 mg PO DAILY atorvastatin 80 mg Tablet 80 mg PO QHS Qty: 30 2RF finasteride 5 mg tablet 5 mg PO DAILY tamsulosin 0.4 mg Capsule 0.4 mg PO BID insulin lispro [Humalog KwikPen Insulin] 100 unit/mL insulin pen See Rx Instructions subcut TID Rx Instructions: subcutaneously three times a day; 10-14 units subcutaneously before meals insulin glargine [Lantus Solostar U-100 Insulin] 100 unit/mL (3 mL) insulin pen 10 unit subcut QHS Trelegy Ellipta 100-62.5-25 mcg blister with device 1 ea inhalation Q24H PRN (Reason: copd) aspirin [Enteric Coated Aspirin] 81 mg tablet,delayed release (DR/EC) 81 mg PO DAILY ferrous sulfate [FeroSul] 325 mg (65 mg iron) tablet 325 mg PO DAILY cholecalciferol (vitamin D3) 1,250 mcg (50,000 unit) capsule 1,250 mcg PO QWEEK Creon 3,000-9,500- 15,000 unit capsule,delayed release(DR/EC) See Rx Instructions .ROUTE .COMPLEX Qty: 300 2RF Rx Instructions: 1 cap orally with meals and snack - take before eating;do not exceed 10,000 unit/kg lipase per 24 hrs (DME) FreeStyle Shashank 3 [place] Misc See Rx Instructions .Route Qty: 1 0RF Rx Instructions: As directed (DME) FreeStyle Shashank 3 Plus Sensor Device See Rx Instructions .Route Qty: 6 1RF Rx Instructions: As directed Primary Care Provider: Tommy Markham Referrals: Oleksandr Fernandez DO [Med Staff - Active Staff] - As soon as possible Tommy Markham MD [Primary Care Provider] - As Needed Activity Restrictions/Additional Instructions: Your labs look good. Plenty of fluids and rest. Return if you feel worse or unable to ambulate around your house. Call and follow-up with your oncologist Dr. Oleksandr Fernandez. Print Language: Syrian Disposition Disposition: Home, Self Care
--- NOTE | 2025-03-12 20:39 | RAD_ITS ---
PROCEDURE: CHEST 1 VIEW (PORTABLE) 03/12/2025 REASON FOR EXAM: WEAKNESS TECHNIQUE: Frontal view of the chest. COMPARISON: Chest x-ray studies dated 02/16/2025 and 08/15/2024 FINDINGS: Heart size and configuration are within normal limits. Pulmonary vasculature and hilar structures are unremarkable. Trachea is midline. Arteriosclerotic vascular disease of the aorta is noted. A right subclavian port is noted with the tip located in the region of the distal superior vena cava, proximal right atrium. Cardiac leads overlie the chest. Lungs are expanded and clear without evidence of atelectasis, consolidation, effusion or pneumonic infiltrate. RAD/Chest 1 View (Portable) IMPRESSION: No acute cardiopulmonary process identified radiographically. Reading Location: [id number]
[2025-03-12] MEDS: 0.9% Normal Saline (1000mL) 1,000 ML 1000 ML IV (21:00)
[2025-03-12 21:15] LABS: Absolute Lymphocyte Count 0.52 X10^3/uL (0.83-4.51); Absolute Neutrophil Count 14.4 X10^3/uL (2.0-7.7); Basophil# 0.05 X10^3/uL; Basophil% 0.3 % (0-1); Eosinophil# 0.11 X10^3/uL; Eosinophils% 0.7 % (0-5); Hematocrit 35.9 % (40-54); Hemoglobin 12.2 g/dL (13.0-16.5); Lymphocyte # 0.52 X10^3/ul (0.83-4.51); Lymphocyte % 3.2 % (19-41); Mean Corpuscular Hgb 30.3 pg (27.0-32.0); Mean Corpuscular Volume 89.1 fL (80-94); Mean Platelet Vol. 11.1 fl (6.2-12.0); Monocyte# 1.28 X10^3/uL; Monocyte% 7.8 % (0-10); NRBC Flagged by Analyzer 0 % (0-5); Neutrophil # 14.35 X10^3/uL (2.7-7.7); Neutrophil % 87.6 % (47-70); POSITIVE DIFFERENTIAL YES; Platelet Count 283 K/mm3 (150-450); RBC Distribution Width CV 19.8 % (11.6-14.6); RBC Distribution Width SD 62.9 fl (35.1-43.9); Red Blood Count 4.03 M/mm3 (4.6-6.2); White Blood Count 16.4 K/mm3 (4.4-11.0)
[2025-03-12 21:38] LABS: ALB/GLOB Ratio 1.4 RATIO (0.9-2.4); AST(SGOT) 22 U/L (<=37); Alanine Aminotransfer ALT/SGPT 26 U/L (<=46); Albumin, Serum 3.4 g/dL (3.4-4.8); Alkaline Phosphatase 124 U/L (40-129); Anion Gap 11 (5-15); BUN 17 mg/dL (4-19); BUN/Creat Ratio 17.7 RATIO (10-20); Calcium,Total 8.5 mg/dL (7.6-11.0); Carbon Dioxide 24.1 mmol/L (21.0-32.0); Chloride 101 mmol/L (98-108); Creatinine, Serum 0.97 mg/dL (0.70-1.20); EST Glomerular Filtration Rate 84 (>60); Estimated Creatinine Clearance 77.78 ml/min (50-250); Globulin 2.5 g/dL (2.2-4.2); Glucose 215 mg/dL (70-99); Potassium 3.8 mmol/L (3.3-5.1); Protein, Total 5.9 g/dL (5.9-8.4); Sodium Level 137 mmol/L (133-145); Total Bilirubin 0.77 mg/dL (0.00-1.30)
[2025-03-12 21:56] LABS: Lactic Acid 1.6 mmol/L (0.0-2.0)
[2025-03-12 22:00] VITALS: BP 139/69; PULSE 82; RESP 20; O2SAT 95
[2025-03-12 22:24] LABS: Bacteria 0 SEEN /hpf (None Seen); Mucous, Urine 0 SEEN /hpf (<or=2+); Red Blood Cells-Urine 0 SEEN /hpf (0-5); Squamous Epithelial Cells - UA 0 SEEN /hpf (0-5); White Blood Cells 0 SEEN /hpf (0-5)
[2025-03-12 22:25] LABS: Color, Urine Yellow (Yellow); Glucose, Dipstick 50 mg/dl (Normal); Ketone-Dipstick Negative (Negative); Leukocyte Esterase-Dipstick Negative /ul (Negative); Nitrite-Dipstick Negative (Negative); Occult Blood-Urine Negative /ul (Negative); Protein-Dipstick Negative (Negative); Specific Gravity, Urine 1.015 (1.002-1.030); Urine Bilirubin Dipstick Negative (Negative); Urine Clarity Clear (Clear); Urine Urobilinogen Normal (Normal); Urine pH 6.5 (5.0 - 8.0)
[2025-03-12 23:00] VITALS: BP 148/59; PULSE 83; RESP 20; TEMP 36.8; O2SAT 93
== END 2025-03-12 23:27 | disposition home or self-care (01) ==
PROVIDERS: Emergency Provider Emergency Medicine; PCP Family Medicine; Visit Provider Emergency Medicine
DX: R53.1 Weakness (principal); I69.354 Hemiplegia and hemiparesis following cerebral infarction affecting left non-dominant side; J44.9 Chronic obstructive pulmonary disease, unspecified; E11.9 Type 2 diabetes mellitus without complications; Z92.21 Personal history of antineoplastic chemotherapy; F17.200 Nicotine dependence, unspecified, uncomplicated; K21.9 Gastro-esophageal reflux disease without esophagitis; R06.00 Dyspnea, unspecified; Z85.09 Personal history of malignant neoplasm of other digestive organs
CPT/HCPCS: 36591; 71045; 80053; 81001; 83605; 85025; 87631; 93005; 96360; 96361; 99285; A4216

== ENCOUNTER → 2025-03-18 | Outpatient (CLI) | payer MEDICARE, OTHER, SELFPAY | END | disposition home or self-care (01) | PROVIDERS: PCP Family Medicine; Referring Provider Psychiatry & Neurology Neurology; Visit Provider Psychiatry & Neurology Neurology | DX: R41.82 Altered mental status, unspecified (principal); F01.50 Vascular dementia, unspecified severity, without behavioral disturbance, psychotic disturbance, mood disturbance, and anxiety; Z86.73 Personal history of transient ischemic attack (TIA), and cerebral infarction without residual deficits | CPT/HCPCS: 95819 ==

== ENCOUNTER → 2025-03-26 | Outpatient (CLI) | payer MEDICARE, OTHER, SELFPAY ==
--- NOTE | 2025-03-26 12:44 | MRI_ITS ---
PROCEDURE: BRAIN W/WO CONTRAST, 03/26/2025 REASON FOR EXAM: CONFUSION; ? TIA COMPARISON: 02/01/2024 and prior TECHNIQUE: Multisequence multiplanar MRI brain was performed with and without intravenous contrast. IV contrast: 17 mL Clariscan. FINDINGS: Cerebrum: No acute infarct, mass, or definite acute intracranial hemorrhage. Similar numerous scattered punctate foci of susceptibility throughout the cerebral and cerebellar hemispheres compared with 01/25/2024, without mass-effect, compatible with chronic microhemorrhages. Hemosiderin staining also present within the bilateral basal ganglia, slightly increased in conspicuity but possibly on a technical basis. Similar advanced supratentorial white matter abnormalities, nonspecific but grossly similar to prior, compatible with chronic microvascular ischemic changes. Moderate diffuse cerebral volume loss. Similar remote lacunar infarcts in the [id number] centrum semiovale/aponte radiata. Suspect tiny lacunar infarcts in the bilateral basal ganglia, similar. Cerebellum: As above. Scattered tiny bilateral cerebellar hemispheric remote infarcts are probably similar allowing for technical differences. Brainstem: Suspect chronic microvascular ischemic changes, and possible tiny remote lacunar infarct in the rico, grossly similar to prior. Ventricles/extra-axial spaces: Lateral and 3rd ventriculomegaly grossly similar to prior and probably proportionate to the degree of volume loss. Cavum septum pellucidum and cavum vergae, normal variants.. Major flow voids: Grossly unremarkable within limits of nondedicated technique. Paranasal sinuses: Unremarkable. Scalp/calvarium: Grossly unremarkable. Orbits: Bilateral cataract surgery. Other: No abnormal enhancement. MRI/Brain W/WO Contrast IMPRESSION: 1. No specific evidence of an acute intracranial process. 2. Similar chronic senescent findings, including findings suggestive of cerebra l amyloid angiopathy. 3. Additional description as above. Reading Location: [id number]
[2025-03-26] MEDS: 0.9 % NaCl (Sterile) Posiflush 10 mL IV (14:00)
[2025-03-26] MEDS: 0.9% Saline Lock 10 ML Syringe IV (14:05)
== END | disposition home or self-care (01) ==
LOC: OPMRI 12:41
PROVIDERS: PCP Family Medicine; Referring Provider Psychiatry & Neurology Neurology; Visit Provider Psychiatry & Neurology Neurology
DX: R41.82 Altered mental status, unspecified (principal); Z86.73 Personal history of transient ischemic attack (TIA), and cerebral infarction without residual deficits
CPT/HCPCS: 70553; A9575

== ENCOUNTER 2025-05-03 14:38 | Emergency (ER) | payer MEDICARE, OTHER, SELFPAY ==
[2025-05-03] VITALS (8 sets, daily range): BP systolic 125–154; BP diastolic 66–79; PULSE 67–104; RESP 16–22; TEMP 36.4; O2SAT 95–98; BMI 23.3
--- NOTE | 2025-05-03 15:33 | EX.ED.DYSGE1 ---
HPI <MARY Espinoza - Last Filed: 05/03/25 19:00> History of Present Illness Chief Complaint: General Illness Narrative Narrative: Patient presenting today due to concerns for generalized weakness that has been ongoing over the last several days. 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 He follows with Dr. Fernandez. Not currently on any chemo. Oncology had concerns for metastasis to the liver and he had a liver biopsy performed Tuesday at [facility]. He was having a lot of right upper quadrant pain after having the biopsy performed but reports that this has improved. He really only feels discomfort now with coughing. He has had a decreased appetite over the last several days, he has been eating very little. He does appear dehydrated. He followed up at his oncology appointment this morning and appeared weak and unsteady on his feet, he also had a low-grade fever in the office and was sent here for evaluation. He denies any fevers at home or nausea, vomiting, stool changes, urinary symptoms, chest pain, and shortness of breath. [facility] <MARY Espinoza - Last Filed: 05/03/25 19:00> [facility] Medical History Choledocholithiasis Diarrhea History of multiple cerebrovascular accidents (CVAs) Wears hearing aid Loss of hearing Insulin dependent diabetes mellitus Excessive bleeding Smoker Chronic cough History of echocardiogram History of stress test Ramirez catheter in place Chronic cholecystitis Unintentional weight loss of 1-2% body weight within 1 week Elevated liver transaminase level Jaundice Abdominal discomfort Choledocholithiasis Cholestatic hepatitis Common bile duct dilation Diabetes GERD (gastroesophageal reflux disease) Non-smoker CPAP (continuous positive airway pressure) dependence Sleep apnea COPD (chronic obstructive pulmonary disease) Stroke/cerebrovascular accident Stroke-like symptoms History of diabetes mellitus History of stroke Slurred speech Home Medications ?Medication ?Instructions ?Recorded ?Last Taken ?Type venlafaxine 150 mg 150 mg PO DAILY DEPRESSION 09/05/23 03/01/24 History capsule,extended release 24 hr atorvastatin 80 mg tablet 80 mg PO QHS CHOLESTEROL #30 tabs 09/07/23 03/01/24 Rx finasteride 5 mg tablet 5 mg PO DAILY prostate 01/05/24 03/01/24 History tamsulosin 0.4 mg capsule 0.4 mg PO BID prostate 01/25/24 03/01/24 History fluticasone fur. 100 mcg-umeclid 1 ea inhalation Q24H PRN copd 02/24/24 03/01/24 History 62.5 mcg-vilant 25 mcg inhalat.powder (Trelegy Ellipta) cyanocobalamin (vitamin B-12) 1,000 mcg IM ONCE #1 mL 07/12/24 07/11/24 Clinic 1,000 mcg/mL injection solution aspirin 81 mg tablet,delayed 81 mg PO DAILY preventative 08/15/24 Unknown History release (Enteric Coated Aspirin) blood-glucose,frame fixer,cont #1 ea 11/16/24 Unknown Rx (FreeStyle Shashank 3 [place]) blood-glucose sensor (FreeStyle #6 ea 02/12/25 Unknown Rx Shashank 3 Plus Sensor device) cholecalciferol (vitamin D3) 1,250 1,250 mcg PO QWEEK 03/12/25 Unknown History mcg (50,000 unit) capsule ferrous sulfate 325 mg (65 mg 325 mg PO DAILY 03/12/25 Unknown History iron) tablet (FeroSul) insulin glargine 100 unit/mL (3 20 unit (0.2 mL) subcut QHS 03/20/25 Unknown Rx mL) subcutaneous pen (Lantus diabetes #15 mL Solostar U-100 Insulin) insulin lispro 100 unit/mL 20 unit (0.2 mL) subcut TID 03/20/25 Unknown Rx subcutaneous pen (Humalog KwikPen diabetes #18 mL (U-100) Insulin) mirtazapine 15 mg tablet 15 mg PO QHS #30 tabs 04/02/25 Unknown Rx rdmixf-kxwpmkfz-lmvfeil 2 cap PO TID 05/01/25 Unknown History 36,000-114,000-180,000 unit capsule,delay rel (Creon) pantoprazole 40 mg tablet,delayed 40 mg PO QAM 05/01/25 Unknown History release Allergy/AdvReac Type Severity Reaction Status Date / Time Penicillins Allergy Intermediate Hives Verified 05/03/25 14:42 metformin AdvReac Mild Diarrhea Verified 05/03/25 14:42 Family History Other Alzheimer disease Breast cancer Thyroid cancer Surgical History S/P TURP History of ERCP Status post laparoscopic cholecystectomy History of cholecystectomy S/P ERCP History of ear surgery Social History household members: spouse housing: house current occupational status: retired Smoking Status: Heavy Smoker (>10/day) Tobacco: How many years used: 50 how long ago did patient quit smoking: alcohol intake: never substance use type: does not use what type of physical activity do you participate in: none and walking seatbelt use: always do you feel safe at home: Yes ROS <MARY Espinoza - Last Filed: 05/03/25 19:00> ROS ED Constitutional Constitutional ED: Denies chills or fever(s) Cardiovascular Cardiovascular: Denies chest pain Respiratory/Chest Respiratory/Chest: Denies cough or dyspnea Gastrointestinal Gastrointestinal: Reports other Details: Abdominal wall pain ; Denies diarrhea, nausea or vomiting Genitourinary Genitourinary ED: Denies dysuria, hematuria or urinary urgency Musculoskeletal Musculoskeletal: Denies arthralgias or myalgias Integumentary Denies rash Neurologic Neurologic: Reports weakness EXAM <MARY Espinoza - Last Filed: 05/03/25 19:00> Physical Exam Const Vital Signs: 05/03/25 14:40 05/03/25 14:42 05/03/25 15:00 Temperature 97.6 F L 97.6 F L Temperature Source Oral Oral Pulse Rate 104 H 104 H Respiratory Rate 16 16 Respiratory Effort Normal Non-Labored Blood Pressure 125/66 H 125/66 H Blood Pressure Mean 85 85 Pulse Ox 95 95 Oxygen Delivery Method Room Air Room Air 05/03/25 15:42 05/03/25 16:00 05/03/25 17:00 Temperature 97.6 F L 97.6 F L 97.6 F L Temperature Source Oral Oral Oral Pulse Rate 72 72 68 Respiratory Rate 16 18 21 H Respiratory Effort Blood Pressure 139/75 H 139/75 H 139/75 H Blood Pressure Mean 96 96 96 Pulse Ox 98 98 97 Oxygen Delivery Method Room Air Room Air Room Air 05/03/25 18:00 05/03/25 19:00 05/03/25 19:16 Temperature 97.6 F L 97.6 F L 97.6 F L Temperature Source Oral Oral Pulse Rate 67 70 70 Respiratory Rate 20 H 22 H 22 H Respiratory Effort Blood Pressure 151/70 H 154/79 H 154/79 H Blood Pressure Mean 97 104 104 Pulse Ox 97 97 97 Oxygen Delivery Method Room Air Room Air Positive well nourished, well developed and no apparent distress General Appearance ED: well developed HEENT Reports normocephalic, head/scalp atraumatic and dry mucous membranes Mouth ED: Yes dry mucous membranes Mouth: dry mucous membranes Eyes PERRL and EOMs intact bilaterally Neck full ROM and supple Chest Wall inspection of chest normal Resp normal respiratory effort and clear to auscultation bilaterally Cardio regular rate and regular rhythm GI soft to palpation, non-tender, non-distended and no masses GI Narrative: No overlying erythema to biopsy site, no discharge, no signs of infection Back/Spine normal ROM and normal to inspection Extremity normal to inspection and full ROM Neuro oriented x3, CN's II-XII intact bilaterally, moves all extremities, no focal motor deficits and no sensory deficits noted Sensorium / Orientation: awake and alert Psych mental status grossly normal and thought process normal Skin no rashes or lesions noted and no wounds <Dr. Noam Hebert, DO - Last Filed: 05/03/25 23:13> Physical Exam Const Vital Signs: 05/03/25 14:40 05/03/25 14:42 05/03/25 15:00 Temperature 97.6 F L 97.6 F L Temperature Source Oral Oral Pulse Rate 104 H 104 H Respiratory Rate 16 16 Respiratory Effort Normal Non-Labored Blood Pressure 125/66 H 125/66 H Blood Pressure Mean 85 85 Pulse Ox 95 95 Oxygen Delivery Method Room Air Room Air 05/03/25 15:42 05/03/25 16:00 05/03/25 17:00 Temperature 97.6 F L 97.6 F L 97.6 F L Temperature Source Oral Oral Oral Pulse Rate 72 72 68 Respiratory Rate 16 18 21 H Respiratory Effort Blood Pressure 139/75 H 139/75 H 139/75 H Blood Pressure Mean 96 96 96 Pulse Ox 98 98 97 Oxygen Delivery Method Room Air Room Air Room Air 05/03/25 18:00 05/03/25 19:00 05/03/25 19:16 Temperature 97.6 F L 97.6 F L 97.6 F L Temperature Source Oral Oral Pulse Rate 67 70 70 Respiratory Rate 20 H 22 H 22 H Respiratory Effort Blood Pressure 151/70 H 154/79 H 154/79 H Blood Pressure Mean 97 104 104 Pulse Ox 97 97 97 Oxygen Delivery Method Room Air Room Air [facility] <MARY Espinoza - Last Filed: 05/03/25 19:00> [facility] Narrative Medical decision making narrative: Patient presenting today due to generalized weakness that has been ongoing over the last several days. He has a history of common bile duct cancer, he follows with Dr. Fernandez, he had a liver biopsy on Tuesday at [facility] To rule out metastasis. He is not currently receiving chemo. He does appear dehydrated. He has had a decreased appetite over the last several days. Broad workup will be obtained to assess for infection, electrolyte abnormality, GENNARO, and UTI. I ambulated him, he did well, no ataxia. CT scan of the abdomen pelvis with IV contrast obtained and shows findings concerning for a volvulus, he also has abnormally thickened bowel loop subjacent to the presumed prior bowel anastomosis concerning for developing bowel necrosis/abscess. There is also concern for a liver abscess from his liver biopsy Tuesday. I spoke with Dr. Andino, he recommended transfer to [facility] Where her procedure was performed. Patient is comfortable with this plan. The attending spoke with transfer line general surgeon, patient will be transferred ED to ED. He was started on IV cefepime and given IV fluids. He will be transferred in stable condition. Lab Data Attestation: I reviewed the patient's lab results. Lab results narrative: WBC 11.3, hemoglobin 11.9 Labs: Laboratory Results - last 24 hr 05/03/25 05/03/25 05/03/25 15:46 16:40 18:15 WBC 11.3 H RBC 3.90 L Hgb 11.9 L Hct 36.7 L MCV 94.1 H MCH 30.5 MCHC 32.4 RDW Std Deviation 47.9 H RDW Coeff of Shoshana 14.0 Plt Count 139 L MPV 13.2 H Immature Gran % (Auto) 0.400 Neut % (Auto) 75.8 H Lymph % (Auto) 9.6 L [place] % (Auto) 9.1 Eos % (Auto) 4.6 Baso % (Auto) 0.5 Absolute Neuts (auto) 8.6 H Absolute Lymphs (auto) 1.08 Nucleated RBC % 0 PT 14.3 INR 1.1 APTT 28.1 Sodium 135 Potassium 4.2 Chloride 101 Carbon Dioxide 25.8 Anion Gap 9 BUN 23 H Creatinine 1.19 Estim Creat Clear Calc 63.40 Est GFR (MDRD) Non-Af 66 BUN/Creatinine Ratio 18.9 Glucose 278 H Lactic Acid 1.2 Calcium 8.4 Total Bilirubin 0.33 AST 14 ALT 11 Alkaline Phosphatase 127 Total Protein 6.0 Albumin 3.2 L Globulin 2.7 Albumin/Globulin Ratio 1.2 Urine Color Yellow Urine Clarity Cloudy Urine pH 5.0 Ur Specific [place] 1.025 Urine Protein 30 H Urine Glucose (UA) 250 H Urine Ketones Negative Urine Occult Blood 10 H Urine Nitrite Negative Urine Bilirubin Negative Urine Urobilinogen 1 H Ur Leukocyte Esterase Negative Urine RBC 25-50 SEEN Urine WBC 0-5 SEEN Ur Squamous Epith Cells 0 SEEN Urine Bacteria 1+ Hyaline Casts 0-5 SEEN Fine Granular Casts 0-5 SEEN Urine Mucus 1+ Radiography Diagnostic Testing: Clinical Impression(s) from Imaging Studies Chest X-Ray 05/03/25 16:00 IMPRESSION: NO ACUTE FINDINGS. Reading Location: [facility] Abdomen/Pelvis CT 05/03/25 16:19 IMPRESSION: 1. Findings concerning for volvulus, including swirling of the mesentery, mesenteric stranding/edema, and non-crossing of the stomach and proximal bowel past midline (with previously normal anatomy). Surgical consultation recommended. 2. Abnormally thickened bowel loop containing intraluminal gas subjacent to the presumed prior bowel anastomosis within the central midline abdomen, concerning for developing bowel necrosis or abscess. If clinically indicated, repeat CT with oral contrast could be obtained for further evaluation. 3. Status post liver biopsy with low-density lesion containing punctate air within segment 7 of the liver, concerning for developing abscess/phlegmon. No discrete drainable rim enhancing fluid collection visualized. Reading Location: [facility] <Dr. Noam Hebert, DO - Last Filed: 05/03/25 23:13> [facility] Narrative Medical decision making narrative: Patient presenting today due to generalized weakness that has been ongoing over the last several days. He has a history of common bile duct cancer, he follows with Dr. Fernandez, he had a liver biopsy on Tuesday at [facility] To rule out metastasis. He is not currently receiving chemo. He does appear dehydrated. He has had a decreased appetite over the last several days. Broad workup will be obtained to assess for infection, electrolyte abnormality, GENNARO, and UTI. I ambulated him, he did well, no ataxia. CT scan of the abdomen pelvis with IV contrast obtained and shows findings concerning for a volvulus, he also has abnormally thickened bowel loop subjacent to the presumed prior bowel anastomosis concerning for developing bowel necrosis/abscess. There is also concern for a liver abscess from his liver biopsy Tuesday. I spoke with Dr. Andino, he recommended transfer to [facility] Where her procedure was performed. Patient is comfortable with this plan. The attending spoke with transfer line general surgeon, patient will be transferred ED to ED. He was started on IV cefepime and given IV fluids. He will be transferred in stable condition. 1904: Lactic acid returned at 1.2. Lab Data Labs: Laboratory Results - last 24 hr 05/03/25 05/03/25 05/03/25 15:46 16:40 18:15 WBC 11.3 H RBC 3.90 L Hgb 11.9 L Hct 36.7 L MCV 94.1 H MCH 30.5 MCHC 32.4 RDW Std Deviation 47.9 H RDW Coeff of [place]oshana 14.0 Plt Count 139 L MPV 13.2 H Immature Gran % (Auto) 0.400 Neut % (Auto) 75.8 H Lymph % (Auto) 9.6 L [place]lor % (Auto) 9.1 Eos % (Auto) 4.6 Baso % (Auto) 0.5 Absolute Neuts (auto) 8.6 H Absolute Lymphs (auto) 1.08 Nucleated RBC % 0 PT 14.3 INR 1.1 APTT 28.1 Sodium 135 Potassium 4.2 Chloride 101 Carbon Dioxide 25.8 Anion Gap 9 BUN 23 H Creatinine 1.19 Estim Creat Clear Calc 63.40 Est GFR (MDRD) Non-Af 66 BUN/Creatinine Ratio 18.9 Glucose 278 H Lactic Acid 1.2 Calcium 8.4 Total Bilirubin 0.33 AST 14 ALT 11 Alkaline Phosphatase 127 Total Protein 6.0 Albumin 3.2 L Globulin 2.7 Albumin/Globulin Ratio 1.2 Urine Color Yellow Urine Clarity Cloudy Urine pH 5.0 Ur Specific [place] 1.025 Urine Protein 30 H Urine Glucose (UA) 250 H Urine Ketones Negative Urine Occult Blood 10 H Urine Nitrite Negative Urine Bilirubin Negative Urine Urobilinogen 1 H Ur Leukocyte Esterase Negative Urine RBC 25-50 SEEN Urine WBC 0-5 SEEN Ur Squamous Epith Cells 0 SEEN Urine Bacteria 1+ Hyaline Casts 0-5 SEEN Fine Granular Casts 0-5 SEEN Urine Mucus 1+ Radiography Diagnostic Testing: Clinical Impression(s) from Imaging Studies Chest X-Ray 05/03/25 16:00 IMPRESSION: NO ACUTE FINDINGS. Reading Location: [facility] Abdomen/Pelvis CT 05/03/25 16:19 IMPRESSION: 1. Findings concerning for volvulus, including swirling of the mesentery, mesenteric stranding/edema, and non-crossing of the stomach and proximal bowel past midline (with previously normal anatomy). Surgical consultation recommended. 2. Abnormally thickened bowel loop containing intraluminal gas subjacent to the presumed prior bowel anastomosis within the central midline abdomen, concerning for developing bowel necrosis or abscess. If clinically indicated, repeat CT with oral contrast could be obtained for further evaluation. 3. Status post liver biopsy with low-density lesion containing punctate air within segment 7 of the liver, concerning for developing abscess/phlegmon. No discrete drainable rim enhancing fluid collection visualized. Reading Location: [facility] Treatment and Re-Evaluation :: Attending note: I have personally performed a face to face assessment of the patient and have reviewed the ROSAMARIA note. I personally made/approved the management plan and take responsibility for the patient management. I performed a substantive portion of the visit including all aspects of the following. My malloy findings include: Presents from infusion center reported low-grade fever unsteady gait nausea. Patient reports 3 days post liver biopsy [facility]. States had severe pain in his abdomen for last 2 days he did contact their oncologist Dr. Fernandez told of the ER. He did not go. He went to infusion center for fluids. He states feeling generalized weakness. Abdominal pain is improving. He had a Whipple's procedure this past September by Dr. Reynolds [facility] For cancer. Initially biliary tree region however reviewing records duodenal mass found on ERCP from he had choledocholithiasis in July. Chemotherapy x 4 treatments last time was over a month ago stopped due to side effects. Decreased appetite. No vomiting. Exam nontoxic alert orient x 3 soft abdomen. Nondistended. Workup white count 11.3. Creatinine normal 1.19. Chest x-ray 2 views interpreted myself shows no acute process. Urine has RBCs no infection. CT abdomen pelvis results concerning for small bowel volvulus, abnormal thickening intraluminal central midline concerning for necrosis or abscess also developing abscess phlegmon in the liver from his biopsy. Discussed with on-call surgeon Dr. Andino who recommended transfer to tertiary center where his procedure was performed. We discussed with [facility] Transfer line, I discussed with Dr. Vora, who accepts ED to ED for surgical evaluation. Discussed with Dr. Sher in the ED who accepts the patient. Patient be transported ED to ED. Patient and family updated. With abscess concerns IV cefepime was ordered as he is allergic to penicillin causing hives. <Dr. Noam Hebert, DO - Last Filed: 05/03/25 23:13> Critical Care Time Critical Care Time: Yes Critical care time (excluding procedures): 30-74 minutes, Discussing w/Patient &/or Family/Import Manager, Discussing w/Consultants, Arranging Admission or Transfer, Performing Direct Patient Care at Bedside and - (40 minutes) Discharge Plan Triage Chief Complaint: General Illness ED Midlevel Provider: Jessica Maldonado ED Provider: Noam Hebert Dx/Rx/DC Orders Clinical Impression: Small bowel volvulus, Abdominal abscess, Abscess of liver, Adenocarcinoma of duodenum, History of Whipple procedure, History of liver biopsy Prescriptions: No Action cyanocobalamin (vitamin B-12) 1,000 mcg/mL solution 1,000 mcg IM ONCE Qty: 1 0RF pantoprazole 40 mg tablet,delayed release (DR/EC) 40 mg PO QAM Creon 36,000-114,000- 180,000 unit capsule,delayed release(DR/EC) 2 cap PO TID mirtazapine 15 mg tablet 15 mg PO QHS Qty: 30 4RF venlafaxine 150 mg capsule,extended release 24hr 150 mg PO DAILY atorvastatin 80 mg Tablet 80 mg PO QHS Qty: 30 2RF finasteride 5 mg tablet 5 mg PO DAILY tamsulosin 0.4 mg Capsule 0.4 mg PO BID Trelegy Ellipta 100-62.5-25 mcg blister with device 1 ea inhalation Q24H PRN (Reason: copd) aspirin [Enteric Coated Aspirin] 81 mg tablet,delayed release (DR/EC) 81 mg PO DAILY ferrous sulfate [FeroSul] 325 mg (65 mg iron) tablet 325 mg PO DAILY cholecalciferol (vitamin D3) 1,250 mcg (50,000 unit) capsule 1,250 mcg PO QWEEK (DME) FreeStyle Shashank 3 [place] Misc See Rx Instructions .Route Qty: 1 0RF Rx Instructions: As directed (DME) FreeStyle Shashank 3 Plus Sensor Device See Rx Instructions .Route Qty: 6 1RF Rx Instructions: As directed insulin glargine [Lantus Solostar U-100 Insulin] 100 unit/mL (3 mL) insulin pen 20 unit subcut QHS Qty: 15 0RF insulin lispro [Humalog KwikPen Insulin] 100 unit/mL insulin pen 20 unit subcut TID Qty: 18 5RF Primary Care Provider: Tommy Markham Referrals: Tommy Markham MD [Primary Care Provider] - Print Language: Tristanian Disposition Disposition: DC/Tx to Another Type of HCF Discharge Date/Time: 05/03/25 20:09
[2025-05-03] MEDS: 0.9% Normal Saline (1000mL) 1,000 ML 999 ML IV (15:56)
--- NOTE | 2025-05-03 16:00 | RAD_ITS ---
PROCEDURE: CHEST PA AND LATERAL 05/03/2025 REASON FOR EXAM: COUGH TECHNIQUE: CHEST PA AND LATERAL COMPARISON: Chest radiograph 03/12/2025. FINDINGS: Hardware: Stable right chest port device with tip terminating in the right atrium. Scattered upper abdominal surgical clips. Heart: The heart size is normal. Mediastinum: The mediastinal contour is unremarkable. Lungs: Bibasilar atelectasis/scarring. No focal consolidation, pleural effusion or pneumothorax. Bones: Degenerative changes are identified within the thoracic spine. RAD/Chest PA and Lateral IMPRESSION: NO ACUTE FINDINGS. Reading Location: [id number]
[2025-05-03 16:05] LABS: Absolute Lymphocyte Count 1.08 X10^3/uL (0.83-4.51); Absolute Neutrophil Count 8.6 X10^3/uL (2.0-7.7); Basophil# 0.06 X10^3/uL; Basophil% 0.5 % (0-1); Eosinophil# 0.52 X10^3/uL; Eosinophils% 4.6 % (0-5); Hematocrit 36.7 % (40-54); Hemoglobin 11.9 g/dL (13.0-16.5); Lymphocyte # 1.08 X10^3/ul (0.83-4.51); Lymphocyte % 9.6 % (19-41); Mean Corp Hgb Conc 32.4 g/dL (32-36); Mean Corpuscular Hgb 30.5 pg (27.0-32.0); Mean Corpuscular Volume 94.1 fL (80-94); Mean Platelet Vol. 13.2 fl (6.2-12.0); Monocyte# 1.02 X10^3/uL; Monocyte% 9.1 % (0-10); NRBC Flagged by Analyzer 0 % (0-5); Neutrophil # 8.55 X10^3/uL (2.7-7.7); Neutrophil % 75.8 % (47-70); Platelet Count 139 K/mm3 (150-450); RBC Distribution Width SD 47.9 fl (35.1-43.9); White Blood Count 11.3 K/mm3 (4.4-11.0)
--- NOTE | 2025-05-03 16:19 | CT_ITS ---
PROCEDURE: ABDOMEN/PELVIS W IV CONT ONLY 05/03/2025 REASON FOR EXAM: RUQ PAIN. Status post liver biopsy. TECHNIQUE: ABDOMEN/PELVIS W IV CONT ONLY. Coronal and Sagittal reconstruction series were provided. ORAL CONTRAST TYPE: None. CONTRAST: Isovue 370 VOLUME: 100 mL One or more dose reduction techniques were used (e.g., Automated exposure control, adjustment of the mA and/or kV according to patient size, use of iterative reconstruction technique. RADIATION DOSE SUMMARY: CTDlvol: 27 mGy DLP: 834 mGycm COMPARISON: CT abdomen pelvis 07/20/2024. FINDINGS: Lung bases: Bibasilar atelectasis. Coronary artery calcifications. Liver: The liver is normal in size. Low-density lesion containing punctate air within segment VII. Unchanged pneumobilia, greatest in the left hepatic lobe. The major portal veins are patent. Gallbladder: Prior cholecystectomy. Spleen: Normal in size. Pancreas: Mildly atrophic. Surgical clips surrounding the pancreatic head/neck. Adrenals: No adrenal mass. Kidneys: Bilateral renal calculi, including a 0.6 cm stone within the right proximal renal collecting system (series 2, image 43). No hydronephrosis.. Bladder: Minimally distended. Reproductive Organs: The prostate is moderately enlarged, and indents the bladder base. Bowel: The bowel loops are nondilated. The stomach and proximal small intestines remain on the left side of the abdomen, and do not cross midline, which is new since prior examination. Additional swirling of the central mesentery is visualized (series 2, images 52-59). There is a thickened bowel loop adjacent to the presumed prior bowel sutures (series 2, image 36), which contains intraluminal gas. Lymph nodes: Enlarged central mesenteric lymph nodes (for example series 2, image 62). Vasculature: Severe mixed plaque of the aortoiliac vessels. Bones: Thoracolumbar spondylosis. CT/Abdomen/Pelvis W IV Cont ONLY IMPRESSION: 1. Findings concerning for volvulus, including swirling of the mesentery, mesen teric stranding/edema, and non-crossing of the stomach and proximal bowel past midline (with previously normal anatomy). Surg ical consultation recommended. 2. Abnormally thickened bowel loop containing intraluminal gas subjacent to the presumed prior bowel anastomosis within the central midline abdomen, concerning for developing bowel necrosis or abscess. If clinically indicated, repeat CT with oral contrast could be obtained for further evaluation. 3. Status post liver biopsy with low-density lesion containing punctate air wit hin segment 7 of the liver, concerning for developing abscess/phlegmon. No discrete drainable rim enhancing fluid collect ion visualized. Reading Location: [id number]
[2025-05-03 16:41] LABS: ALB/GLOB Ratio 1.2 RATIO (0.9-2.4); AST(SGOT) 14 U/L (<=37); Alanine Aminotransfer ALT/SGPT 11 U/L (<=46); Albumin, Serum 3.2 g/dL (3.4-4.8); Alkaline Phosphatase 127 U/L (40-129); Anion Gap 9 (5-15); BUN 23 mg/dL (4-19); BUN/Creat Ratio 18.9 RATIO (10-20); Calcium,Total 8.4 mg/dL (7.6-11.0); Carbon Dioxide 25.8 mmol/L (21.0-32.0); Chloride 101 mmol/L (98-108); Creatinine, Serum 1.19 mg/dL (0.70-1.20); EST Glomerular Filtration Rate 66 (>60); Globulin 2.7 g/dL (2.2-4.2); Glucose 278 mg/dL (70-99); Potassium 4.2 mmol/L (3.3-5.1); Sodium Level 135 mmol/L (133-145); Total Bilirubin 0.33 mg/dL (0.00-1.30)
[2025-05-03 16:49] LABS: Squamous Epithelial Cells - UA 0 SEEN /hpf (0-5)
[2025-05-03 17:17] LABS: Color, Urine Yellow (Yellow); Glucose, Dipstick 250 mg/dl (Normal); Ketone-Dipstick Negative (Negative); Leukocyte Esterase-Dipstick Negative /ul (Negative); Nitrite-Dipstick Negative (Negative); Occult Blood-Urine 10 /ul (Negative); Protein-Dipstick 30 mg/dl (Negative); Specific Gravity, Urine 1.025 (1.002-1.030); Urine Bilirubin Dipstick Negative (Negative); Urine Clarity Cloudy (Clear); Urine Urobilinogen 1 mg/dl (Normal)
[2025-05-03 17:56] LABS: Hyaline Cast 0-5 SEEN /lpf (0-5); Red Blood Cells-Urine 25-50 SEEN /hpf (0-5); White Blood Cells 0-5 SEEN /hpf (0-5)
[2025-05-03 17:57] LABS: Bacteria 1+ /hpf (None Seen); Fine Granular Cast- Urine 0-5 SEEN /lpf (0-5); Mucous, Urine 1+ /hpf (<or=2+)
[2025-05-03] MEDS: Cefepime HCl 2 GM in 0.9% Normal Saline (100mL MB+) 100 ML IV (18:45)
[2025-05-03 18:56] LABS: Lactic Acid 1.2 mmol/L (0.0-2.0)
[2025-05-03 19:09] LABS: International Normalized Ratio 1.1; Prothrombin Time (Protime)PT. 14.3 SECONDS (11.7-14.9)
[2025-05-03 19:10] LABS: Partial Thromboplast Time 28.1 Seconds (24.1-36.2)
--- NOTE | 2025-05-03 19:18 | ED.RN ---
Attempted to call report to [facility]. No answer.
== END 2025-05-03 20:09 | disposition other institution (70) ==
PROVIDERS: Physician Assistant; Emergency Provider Emergency Medicine; PCP Family Medicine; Visit Provider Emergency Medicine
DX: K56.2 Volvulus (principal); C17.0 Malignant neoplasm of duodenum; J44.9 Chronic obstructive pulmonary disease, unspecified; E11.9 Type 2 diabetes mellitus without complications; Z79.4 Long term (current) use of insulin; L02.211 Cutaneous abscess of abdominal wall; R50.9 Fever, unspecified; K75.0 Abscess of liver; Z86.73 Personal history of transient ischemic attack (TIA), and cerebral infarction without residual deficits; Z99.89 Dependence on other enabling machines and devices; Z90.49 Acquired absence of other specified parts of digestive tract; F17.210 Nicotine dependence, cigarettes, uncomplicated
CPT/HCPCS: 36591; 71046; 74177; 80053; 81001; 83605; 85025; 85610; 85730; 96361; 96365; 96366; 99283; Q9967; A4216

== ENCOUNTER 2025-05-20 13:24 | Emergency (ER) | payer MEDICARE, OTHER, SELFPAY ==
[2025-05-20] VITALS (20 sets, daily range): BP systolic 109–187; BP diastolic 78–126; PULSE 71–113; RESP 16–33; TEMP 36.5–36.6; O2SAT 90–100; BMI 22.7
--- NOTE | 2025-05-20 14:01 | EKG12_ITS ---
Test Reason : Blood Pressure : */* mmHG Vent. Rate : 80 BPM Atrial Rate : 80 BPM P-R Int : 162 ms QRS Dur : 68 ms QT Int : 378 ms P-R-T Axes : 71 15 65 degrees QTcB Int : 435 ms Sinus rhythm with marked sinus arrhythmia Low voltage QRS Borderline ECG Confirmed by ELIUD LAMBERT, CHANDRIKA ([id number]), features editor UMANG TURNER ([id number]) on 05/21/2025 1:33:27 PM Referred By: Confirmed By: CHANDRIKA KLINE MD
[2025-05-20] MEDS: 0.9% Normal Saline (1000mL) 1,000 ML 999 ML IV ×3 (14:09→16:42)
--- NOTE | 2025-05-20 14:19 | EX.ED.DYSGE1 ---
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 Cording to the patient's significant other at bedside she states that around 4 AM he started developing vomiting and notes that he has not vomited since then however he has not eaten or drank anything either. He does feel nauseous currently but states he does not have any abdominal pain. Significant other noted that he had some blood in his urine and was recently started on Eliquis last week per his oncologist. They called the oncologist and they advised him to come here for further evaluation management. [facility] Medical History Choledocholithiasis Diarrhea History of multiple cerebrovascular accidents (CVAs) Wears hearing aid Loss of hearing Insulin dependent diabetes mellitus Excessive bleeding Smoker Chronic cough History of echocardiogram History of stress test Ramirez catheter in place Chronic cholecystitis Unintentional weight loss of 1-2% body weight within 1 week Elevated liver transaminase level Jaundice Abdominal discomfort Choledocholithiasis Cholestatic hepatitis Common bile duct dilation Diabetes GERD (gastroesophageal reflux disease) Non-smoker CPAP (continuous positive airway pressure) dependence Sleep apnea COPD (chronic obstructive pulmonary disease) Stroke/cerebrovascular accident Stroke-like symptoms History of diabetes mellitus History of stroke Slurred speech Home Medications ?Medication ?Instructions ?Recorded ?Last Taken ?Type venlafaxine 150 mg 150 mg PO DAILY DEPRESSION 09/05/23 05/20/25 History capsule,extended release 24 hr atorvastatin 80 mg tablet 80 mg PO QHS CHOLESTEROL #30 tabs 09/07/23 05/19/25 Rx finasteride 5 mg tablet 5 mg PO DAILY prostate 01/05/24 05/20/25 History tamsulosin 0.4 mg capsule 0.4 mg PO BID prostate 01/25/24 05/20/25 History fluticasone fur. 100 mcg-umeclid 1 ea inhalation Q24H PRN copd 02/24/24 03/01/24 History 62.5 mcg-vilant 25 mcg inhalat.powder (Trelegy Ellipta) cyanocobalamin (vitamin B-12) 1,000 mcg IM ONCE #1 mL 07/12/24 05/17/25 Clinic 1,000 mcg/mL injection solution aspirin 81 mg tablet,delayed 81 mg PO DAILY preventative 08/15/24 05/19/25 History release (Enteric Coated Aspirin) blood-glucose,automation qa lead,cont #1 ea 11/16/24 Unknown Rx (FreeStyle Shashank 3 [place]) blood-glucose sensor (FreeStyle #6 ea 02/12/25 Unknown Rx Shashank 3 Plus Sensor device) ferrous sulfate 325 mg (65 mg 325 mg PO DAILY 03/12/25 05/20/25 History iron) tablet (FeroSul) mhezhg-[id number]-mrpkrha 1 cap PO TIDCM 05/01/25 05/19/25 History 36,000-114,000-180,000 unit capsule,delay rel (Creon) pantoprazole 40 mg tablet,delayed 40 mg PO QAM 05/01/25 05/20/25 History release apixaban 2.5 mg tablet (Eliquis) 2.5 mg PO BID 05/20/25 05/19/25 History cholecalciferol (vitamin D3) 50 50 mcg PO DAILY 05/20/25 05/20/25 History mcg (2,000 unit) capsule insulin glargine 100 unit/mL (3 10 unit subcut QHS diabetes 05/20/25 05/19/25 History mL) subcutaneous pen (Lantus Solostar U-100 Insulin) insulin lispro 100 unit/mL 10 unit subcut TIDCM diabetes 05/20/25 05/19/25 History subcutaneous pen (Humalog KwikPen (U-100) Insulin) megestrol 400 mg/10 mL (10 mL) 800 mg PO DAILY 05/20/25 05/19/25 History oral suspension ondansetron 4 mg disintegrating 4 mg PO Q6H PRN nausea and 05/20/25 Unknown Rx tablet vomiting #30 tabs Allergy/AdvReac Type Severity Reaction Status Date / Time Penicillins Allergy Intermediate Hives Verified 05/20/25 13:25 metformin AdvReac Mild Diarrhea Verified 05/20/25 13:25 Family History Other Alzheimer disease Breast cancer Thyroid cancer Surgical History S/P TURP History of ERCP Status post laparoscopic cholecystectomy History of cholecystectomy S/P ERCP History of ear surgery Social History household members: spouse housing: house current occupational status: retired Smoking Status: Heavy Smoker (>10/day) Tobacco: How many years used: 50 how long ago did patient quit smoking: alcohol intake: never substance use type: does not use what type of physical activity do you participate in: none and walking seatbelt use: always do you feel safe at home: Yes ROS ROS ED ROS Narrative Constitutional: Denies any fevers, chills, headaches, lightness, dizziness Eyes: Denies change in vision double vision blurry vision Cardiovascular: Denies chest pain or palpitations Respiratory: Denies coughing wheezing shortness of breath Abdomen: Complains of nausea as noted above and vomiting denies diarrhea or abdominal pain currently : Complains of hematuria as noted above denies any painful urination or increased frequency of urinating Neurological: Denies any new numbness, weakness, tingling Musculoskeletal: Denies back pain Skin: Denies any rashes or lesions EXAM Physical Exam Narrative Exam Narrative: General: Patient lying in bed rest comfortably did not appear to be in acute distress Head: Atraumatic, normocephalic Eyes: PERRL bilaterally, EOMI bilateral, no conjunctival injection noted Neck: Soft, supple, trachea midline Cardiovascular: Patient tachycardic with a regular rhythm no murmurs gallops rubs noted Respiratory: Clear to auscultation bilaterally no rales rhonchi or wheezes noted Abdomen: Soft, nondistended, no tenderness palpation, no rebound or guarding on exam Extremities: +4/5 strength noted in the bilateral upper and lower extremities, radial pulses +2/4 in the bilateral extremities Neurological: Patient following commands knew that he was at [facility] year is 2024 Skin: Warm, dry, tact no rashes or lesions noted Const Vital Signs: 05/20/25 13:25 05/20/25 14:19 05/20/25 14:30 Temperature 97.7 F L Temperature Source Oral Pulse Rate 105 H 82 81 Respiratory Rate 16 33 H Blood Pressure 134/83 H Blood Pressure Mean 100 Pulse Ox 100 95 98 Oxygen Delivery Method Room Air 05/20/25 14:45 05/20/25 15:00 05/20/25 15:15 Temperature Temperature Source Pulse Rate 76 77 78 Respiratory Rate 19 H Blood Pressure 167/100 H 162/81 H Blood Pressure Mean 120 106 Pulse Ox 99 93 Oxygen Delivery Method 05/20/25 15:30 05/20/25 15:36 05/20/25 15:46 Temperature Temperature Source Pulse Rate 73 74 73 Respiratory Rate 26 H 30 H Blood Pressure 135/96 H 135/96 H Blood Pressure Mean 109 109 Pulse Ox 90 96 97 Oxygen Delivery Method 05/20/25 16:00 05/20/25 16:00 05/20/25 16:15 Temperature Temperature Source Pulse Rate 113 H 75 Respiratory Rate 19 H Blood Pressure 149/93 H 149/93 H 164/78 H Blood Pressure Mean 106 106 104 Pulse Ox 96 Oxygen Delivery Method 05/20/25 16:30 05/20/25 16:39 05/20/25 16:45 Temperature Temperature Source Pulse Rate 78 81 Respiratory Rate 22 H 17 Blood Pressure 138/104 H 109/78 Blood Pressure Mean 107 86 Pulse Ox 97 98 Oxygen Delivery Method Room Air 05/20/25 16:45 05/20/25 17:01 05/20/25 17:15 Temperature Temperature Source Pulse Rate 79 79 78 Respiratory Rate 24 H 20 H 19 H Blood Pressure 109/78 Blood Pressure Mean 86 Pulse Ox 98 95 Oxygen Delivery Method Room Air 05/20/25 17:30 05/20/25 17:45 05/20/25 18:00 Temperature Temperature Source Pulse Rate 78 77 Respiratory Rate 21 H 17 Blood Pressure 162/126 H Blood Pressure Mean 138 Pulse Ox 96 95 Oxygen Delivery Method MDM MDM MDM Narrative Medical decision making narrative: Patient is a 69-year-old male who presents to the emergency department chief complaint nausea vomiting not feeling well. On the differential diagnose includes but not limited to worsening metastatic disease, bowel obstruction, viral gastroenteritis. Once workup is obtained reviewed he will be reevaluated. Patient will given 30 cc/kg bolus of IV fluids this was ordered at 1405 and he was given 4 mg of Zofran for his nausea. Patient CBC reviewed showed no evidence leukocytosis white count normal at 10.8, hemoglobin is 14, platelet count was noted be 168. Patient abnormal 1.2, PT 15.4, sodium normal 135, potassium normal 3.8, creatinine was elevated 1.51 this is likely secondary to some dehydration from his nausea vomiting. Patient AST and ALT were 17 and 15 respectively, urinalysis reviewed and showed no evidence of infection. Patient's CT abdomen pelvis with IV contrast reviewed and showed a right proximal ureter 4 mm calculus with a moderate upstream hydroureteronephrosis additional bilateral nonobstructive renal calculi. Stable hepatic lesion which may represent abscess or neoplastic process this is a neoplastic process with a known mets to the liver, stable pancreatic body lesion. Pneumobilia. On reevaluation the patient he is feeling much better he would like to go home at this point in time patient tolerated oral intake. I did discuss case with on-call general surgeon Dr. Godfrey and she states that since he had a Whipple procedure this pneumobilia is normal. He was advised to follow-up with In outpatient setting. Prescription for Zofran ODT will be sent to the pharmacy. He is encouraged to continue supportive care and return with any other concerns. He is agreeable this plan as well as significant other at bedside all question concerns answered he was discharged home in stable condition. Lab Data Labs: Laboratory Results - last 24 hr 05/20/25 05/20/25 13:50 15:45 WBC 10.8 RBC 4.70 Hgb 14.0 Hct 44.1 MCV 93.8 MCH 29.8 MCHC 31.7 L RDW Std Deviation 46.6 H RDW Coeff of [place] 13.5 Plt Count 168 MPV 13.4 H Immature Gran % (Auto) 0.300 Neut % (Auto) 76.6 H Lymph % (Auto) 12.5 L Cecil % (Auto) 9.4 Eos % (Auto) 0.6 Baso % (Auto) 0.6 Absolute Neuts (auto) 8.3 H Absolute Lymphs (auto) 1.35 Nucleated RBC % 0 PT 15.4 H INR 1.2 APTT 20.7 L Sodium 135 Potassium 3.8 Chloride 100 Carbon Dioxide 20.3 L Anion Gap 15 BUN 24 H Creatinine 1.51 H Estim Creat Clear Calc 49.01 L Est GFR (MDRD) Non-Af 49 L BUN/Creatinine Ratio 15.6 Glucose 267 H Lactic Acid 1.2 Calcium 8.9 Total Bilirubin 0.44 AST 17 ALT 15 Alkaline Phosphatase 136 H Total Protein 6.7 Albumin 3.5 Globulin 3.2 Albumin/Globulin Ratio 1.1 Urine Color Yellow Urine Clarity Cloudy Urine pH 6.0 Ur Specific [place] 1.020 Urine Protein 30 H Urine Glucose (UA) 250 H Urine Ketones Negative Urine Occult Blood 250 H Urine Nitrite Negative Urine Bilirubin Negative Urine Urobilinogen Normal Ur Leukocyte Esterase Negative Urine RBC > 100 SEEN Urine WBC 0-5 SEEN Ur Squamous Epith Cells 0-5 SEEN Urine Bacteria 0 SEEN Urine Mucus 0 SEEN Radiography Diagnostic Testing: Clinical Impression(s) from Imaging Studies Abdomen/Pelvis CT 05/20/25 15:13 IMPRESSION: Right proximal ureter 4 mm calculus with moderate upstream hydroureteronephrosis. Additional bilateral nonobstructive renal calculi. Stable hepatic lesion which may represent an abscess or neoplastic process. Stable pancreatic body lesion. Pneumobilia. Additional chronic and ancillary findings as above. Reading Location: [id number] Discharge Plan Triage Chief Complaint: Nausea/Vomiting ED Provider: Jeffrey Higgins Dx/Rx/DC Orders Clinical Impression: Nausea & vomiting Prescriptions: New ondansetron 4 mg tablet,disintegrating 4 mg PO Q6H PRN (Reason: nausea and vomiting) Qty: 30 0RF No Action cyanocobalamin (vitamin B-12) 1,000 mcg/mL solution 1,000 mcg IM ONCE Qty: 1 0RF pantoprazole 40 mg tablet,delayed release (DR/EC) 40 mg PO QAM Creon 36,000-114,000- 180,000 unit capsule,delayed release(DR/EC) 1 cap PO TIDCM venlafaxine 150 mg capsule,extended release 24hr 150 mg PO DAILY atorvastatin 80 mg Tablet 80 mg PO QHS Qty: 30 2RF finasteride 5 mg tablet 5 mg PO DAILY tamsulosin 0.4 mg Capsule 0.4 mg PO BID Trelegy Ellipta 100-62.5-25 mcg blister with device 1 ea inhalation Q24H PRN (Reason: copd) aspirin [Enteric Coated Aspirin] 81 mg tablet,delayed release (DR/EC) 81 mg PO DAILY ferrous sulfate [FeroSul] 325 mg (65 mg iron) tablet 325 mg PO DAILY cholecalciferol (vitamin D3) 50 mcg (2,000 unit) capsule 50 mcg PO DAILY megestrol 400 mg/10 mL (10 mL) suspension 800 mg PO DAILY Eliquis 2.5 mg tablet 2.5 mg PO BID Rx Instructions: PTS STATES SUPPOSED TO TAKE BID BUT ONLY TAKES ONCE DAILY insulin lispro [Humalog KwikPen Insulin] 100 unit/mL insulin pen 10 unit subcut TIDCM insulin glargine [Lantus Solostar U-100 Insulin] 100 unit/mL (3 mL) insulin pen 10 unit subcut QHS (DME) FreeStyle Shashank 3 [place] Misc See Rx Instructions .Route Qty: 1 0RF Rx Instructions: As directed (DME) FreeStyle Shashank 3 Plus Sensor Device See Rx Instructions .Route Qty: 6 1RF Rx Instructions: As directed Primary Care Provider: Tommy Markham Referrals: Tommy Markham MD [Primary Care Provider] - Activity Restrictions/Additional Instructions: Follow-up your doctor in the outpatient setting. Return with worsening symptoms or any concerns. Continue supportive care E Zofran dissolvable tablet under your tongue of send your pharmacy as prescribed. Your blood work here today did not show any acute findings and your CT abdomen pelvis showed that he had a kidney stone however there is no evidence of infection in your urine this will likely pass on its own which could be causing some blood in your urine. Return with any other concerns. Print Language: Irish Disposition Disposition: Home, Self Care
[2025-05-20 14:29] LABS: Absolute Lymphocyte Count 1.35 X10^3/uL (0.83-4.51); Absolute Neutrophil Count 8.3 X10^3/uL (2.0-7.7); Basophil# 0.06 X10^3/uL; Basophil% 0.6 % (0-1); Eosinophil# 0.06 X10^3/uL; Eosinophils% 0.6 % (0-5); Hematocrit 44.1 % (40-54); Lymphocyte # 1.35 X10^3/ul (0.83-4.51); Lymphocyte % 12.5 % (19-41); Mean Corp Hgb Conc 31.7 g/dL (32-36); Mean Corpuscular Hgb 29.8 pg (27.0-32.0); Mean Corpuscular Volume 93.8 fL (80-94); Mean Platelet Vol. 13.4 fl (6.2-12.0); Monocyte# 1.01 X10^3/uL; Monocyte% 9.4 % (0-10); NRBC Flagged by Analyzer 0 % (0-5); Neutrophil # 8.28 X10^3/uL (2.7-7.7); Neutrophil % 76.6 % (47-70); Platelet Count 168 K/mm3 (150-450); RBC Distribution Width CV 13.5 % (11.6-14.6); RBC Distribution Width SD 46.6 fl (35.1-43.9); White Blood Count 10.8 K/mm3 (4.4-11.0)
[2025-05-20 14:49] LABS: Lactic Acid 1.2 mmol/L (0.0-2.0)
[2025-05-20 15:08] LABS: International Normalized Ratio 1.2; Partial Thromboplast Time 20.7 Seconds (24.1-36.2); Prothrombin Time (Protime)PT. 15.4 SECONDS (11.7-14.9)
[2025-05-20 15:09] LABS: ALB/GLOB Ratio 1.1 RATIO (0.9-2.4); AST(SGOT) 17 U/L (<=37); Alanine Aminotransfer ALT/SGPT 15 U/L (<=46); Albumin, Serum 3.5 g/dL (3.4-4.8); Alkaline Phosphatase 136 U/L (40-129); Anion Gap 15 (5-15); BUN 24 mg/dL (4-19); BUN/Creat Ratio 15.6 RATIO (10-20); Calcium,Total 8.9 mg/dL (7.6-11.0); Carbon Dioxide 20.3 mmol/L (21.0-32.0); Chloride 100 mmol/L (98-108); Creatinine, Serum 1.51 mg/dL (0.70-1.20); EST Glomerular Filtration Rate 49 (>60); Estimated Creatinine Clearance 49.01 ml/min (50-250); Globulin 3.2 g/dL (2.2-4.2); Glucose 267 mg/dL (70-99); Potassium 3.8 mmol/L (3.3-5.1); Protein, Total 6.7 g/dL (5.9-8.4); Sodium Level 135 mmol/L (133-145); Total Bilirubin 0.44 mg/dL (0.00-1.30)
--- NOTE | 2025-05-20 15:13 | CT_ITS ---
PROCEDURE: ABDOMEN/PELVIS W IV CONT ONLY 05/20/2025 REASON FOR EXAM: N/V/ HX OF CANCER WITH METS TECHNIQUE: ABDOMEN/PELVIS W IV CONT ONLY Coronal and Sagittal reconstruction series were provided. CONTRAST: Isovue 370 VOLUME: 96 mL One or more dose reduction techniques were used (e.g., Automated exposure control, adjustment of the mA and/or kV according to patient size, use of iterative reconstruction technique. RADIATION DOSE SUMMARY: DLP: 567.11 mGycm COMPARISON: 05/03/2025. FINDINGS: The peripheral soft tissues are unremarkable. Degenerative changes of the spine. Grade 1 anterolisthesis of L4 on L5. No new lymphadenopathy. Right hepatic lobe hypodense lesions which are similar in size and may represent neoplastic lesions or abscesses. Pneumobilia. Absent gallbladder. Surgical clips in the region of the pancreatic head. Unchanged hypodense lesion in the region of the pancreatic body (axial image 25 of 122). Right proximal ureter 4 mm calculus with moderate upstream hydroureteronephrosis. Additional bilateral nonobstructive renal calculi. Severe prostatomegaly. Normal caliber large and small bowel. Anastomotic bowel suture. CT/Abdomen/Pelvis W IV Cont ONLY IMPRESSION: Right proximal ureter 4 mm calculus with moderate upstream hydroureteronephrosi s. Additional bilateral nonobstructive renal calculi. Stable hepatic lesion which may represent an abscess or neoplastic process. Stable pancreatic body lesion. Pneumobilia. Additional chronic and ancillary findings as above. Reading Location: [place] [id number]
[2025-05-20] MEDS: Ondansetron 4 MG/2 ML Vial IV (15:38)
[2025-05-20 15:51] LABS: Bacteria 0 SEEN /hpf (None Seen); Mucous, Urine 0 SEEN /hpf (<or=2+)
[2025-05-20 15:56] LABS: Color, Urine Yellow (Yellow); Glucose, Dipstick 250 mg/dl (Normal); Ketone-Dipstick Negative (Negative); Leukocyte Esterase-Dipstick Negative /ul (Negative); Nitrite-Dipstick Negative (Negative); Occult Blood-Urine 250 /ul (Negative); Protein-Dipstick 30 mg/dl (Negative); Urine Bilirubin Dipstick Negative (Negative); Urine Clarity Cloudy (Clear); Urine Urobilinogen Normal (Normal)
[2025-05-20 16:32] LABS: Red Blood Cells-Urine > 100 SEEN /hpf (0-5)
[2025-05-20 16:33] LABS: Squamous Epithelial Cells - UA 0-5 SEEN /hpf (0-5); White Blood Cells 0-5 SEEN /hpf (0-5)
[2025-05-20] MEDS: Morphine 4 MG/ML Syringe IV (17:24)
[2025-05-20] MEDS: Metoclopramide 10 MG/2 ML Vial IV (17:24)
--- NOTE | 2025-05-20 19:45 | ED.RN ---
Pt states he arrived with port accessed, did not want port de-accessed due to treatment tomorrow scheduled.
== END 2025-05-20 19:45 | disposition home or self-care (01) ==
PROVIDERS: Emergency Provider Emergency Medicine; PCP Family Medicine; Visit Provider Emergency Medicine
DX: R11.2 Nausea with vomiting, unspecified (principal); J44.9 Chronic obstructive pulmonary disease, unspecified; Z79.4 Long term (current) use of insulin; E11.42 Type 2 diabetes mellitus with diabetic polyneuropathy; F17.200 Nicotine dependence, unspecified, uncomplicated; I25.10 Atherosclerotic heart disease of native coronary artery without angina pectoris; E78.00 Pure hypercholesterolemia, unspecified; Z86.73 Personal history of transient ischemic attack (TIA), and cerebral infarction without residual deficits; G47.30 Sleep apnea, unspecified; Z99.89 Dependence on other enabling machines and devices; Z79.899 Other long term (current) drug therapy; Z79.51 Long term (current) use of inhaled steroids; K21.9 Gastro-esophageal reflux disease without esophagitis; Z90.49 Acquired absence of other specified parts of digestive tract; K76.9 Liver disease, unspecified
CPT/HCPCS: 36591; 74177; 80053; 81001; 83605; 85025; 85610; 85730; 87040; 87086; 87088; 93005; 96361; 96374; 96375; 99285; Q9967; A4216; J2405